=== PATIENT | female | born 1950 | race Caucasian/White ===

== ENCOUNTER 2016-12-07 06:06 | Day surgery (SDC) | payer MEDICARE, BC ==
[2016-12-07] MEDS ORDERED: PHENYLEPHRINE 2.5% OPHTH 2 ML DROPS ONE (06:23)
[2016-12-07] MEDS ORDERED: KETOROLAC 0.45% OPHTH DROPS ONE (06:23)
[2016-12-07] MEDS ORDERED: PROPARACAINE 0.5% OPHTH DROPS 15 ML ONE ×2 (06:24→07:08)
[2016-12-07] MEDS ORDERED: CYCLOPENTOLATE 1% OPHTH DROPS 2 ML ONE (06:24)
[2016-12-07] MEDS ORDERED: PHENYLEPHRINE 2.5% OPHTH 2 ML DROPS OPTH ONE (06:42)
[2016-12-07] MEDS ORDERED: KETOROLAC 0.45% OPHTH DROPS OPTH ONE (06:42)
[2016-12-07] MEDS ORDERED: PROPARACAINE 0.5% OPHTH DROPS 15 ML OPTH ONE ×2 (06:42→07:27)
[2016-12-07] MEDS ORDERED: CYCLOPENTOLATE 1% OPHTH DROPS 2 ML OPTH ONE (06:42)
[2016-12-07] MEDS ORDERED: LACTATED RINGERS 1,000 ML IV ONE (06:50)
[2016-12-07] MEDS ORDERED: TIMOLOL 0.5% OPHTH DROPS ONE (07:07)
[2016-12-07] MEDS ORDERED: BRIMONIDINE 0.2% OPHTH DROPS 5 ML ONE (07:07)
[2016-12-07] MEDS ORDERED: ACETYLCHOLINE 20 MG/2 ML KIT IO ONE (07:12)
[2016-12-07] MEDS ORDERED: TRIAMCINOLONE PF 40 MG/ML VIAL ONE (07:12)
[2016-12-07] MEDS ORDERED: BRIMONIDINE 0.2% OPHTH DROPS 5 ML OPTH ONE (07:26)
[2016-12-07] MEDS ORDERED: EPINEPHrine 1 MG/ML AMP IVP ONE (07:26)
[2016-12-07] MEDS ORDERED: CHONDR SULF/HYALURONATE SYRINGE IO ONE (07:26)
[2016-12-07] MEDS ORDERED: TIMOLOL 0.5% OPHTH DROPS OPTH ONE (07:27)
[2016-12-07] MEDS ORDERED: BSS/LIDOCAINE/EPINEPHRINE 1 ML SYRINGE IO ONE ×2 (07:27)
[2016-12-07] MEDS ORDERED: TRIAMCIN/MOXIFLOX/VANCO 1 ML VIAL IO ONE ×2 (07:27)
[2016-12-07] MEDS ORDERED: MIDAZOLAM 2 MG/2 ML VIAL IVP ONE (07:30)
[2016-12-07 08:03] VITALS: BP 120/60
--- NOTE | 2016-12-07 08:12 | OPERATIVE REPORT ---
DATE OF SURGERY: 12/07/2016 00:00:00 PREOPERATIVE DIAGNOSIS: Visually significant cataract, right eye. This is her first cataract surgery. POSTOPERATIVE DIAGNOSIS: Visually significant cataract, right eye. This is her first cataract surgery . NAME OF PROCEDURE: Phacoemulsification posterior chamber intraocular lens implant, right eye. SURGEON: Darrell Aquino MD. ANESTHESIA: Monitored anesthesia care. COMPLICATIONS: None. OPERATIVE INDICATIONS: This is a 66-year-old woman with progressive vision loss in the right eye due to 2+ nuclear sclerotic and 3+ cortical cataract. Best corrected visual acuity was 20/30 with glare t o 20/50 in the right eye. INDICATIONS FOR SURGERY: Overall decrease in vision, difficulty seeing words on a computer screen, di fficulty reading, difficulty seeing words and game scores on TV, difficulty seeing street signs, diff iculty seeing in low light or at night, difficulty driving at night because of headlights from other vehicles, difficulty with glare or bright lights in any situation. She complains of filmy blurry visi on that she cannot wipe away, much more difficulty seeing in low light, more glare during rainy night s when driving and oncoming headlights, and she feels she needs better vision for detailed carving. S he was consented at length concerning the risks and benefits of cataract surgery, after which she exp ressed a desire to proceed with surgery. OPERATIVE PROCEDURE: The patient was taken into OR #2 and placed under monitored anesthesia care. A s urgical time-out was conducted confirming the correct patient, correct procedure and correct surgical site. She was placed under the LenSx laser and her eye docked to the laser interface. The laser perf ormed the capsulotomy, lens softening, phaco wounds, and arcuate keratotomy incisions. She was then m jossie to the operating microscope, given topical anesthesia, and then prepped and draped in the usual sterile fashion. The eye was entered at the 12 and 9 o'clock positions. Intracameral Shugarcaine was injected into the anterior chamber, followed by Viscoat. Capsulorrhexis flap created by the LenSx las er was removed from the anterior chamber. The nucleus was hydrodissected and phacoemulsified. The cor eh was evacuated using automated infusion aspiration. Provisc was injected in the capsular bag and a 15.5 diopter intraocular lens was inserted into the bag. Approximately 0.8 mL of a mixture of triamc inolone, moxifloxacin, and vancomycin was injected subconjunctivally in the superior quadrant for inf ection and inflammation prophylaxis. I/A was used to evacuate the viscoelastic materials. The eye was inflated to physiologic pressure using balanced salt solution and found to be watertight. The patien t was taken from the operating room in good condition and given postoperative instructions. JOB #: [id number] EXT JOB #:[id number]
== END 2016-12-07 06:07 | disposition home or self-care (01) ==
LOC: SDS 06:06
PROVIDERS: ATTEND Ophthalmology
PROC: 08RJ3JZ Replacement of Right Lens with Synthetic Substitute, Percutaneous Approach (ICD-10-PCS; principal; 2016-12-07 07:30)
DX: H25.811 Combined forms of age-related cataract, right eye (principal); I10 Essential (primary) hypertension; M35.00 Sjogren syndrome, unspecified; M79.7 Fibromyalgia; E78.00 Pure hypercholesterolemia, unspecified
CPT/HCPCS: 66984; A9270; J3490; J7120; V2632

== ENCOUNTER 2017-01-11 07:18 | Day surgery (SDC) | payer MEDICARE, BC ==
[~2017-01-11 07:18] MED LIST: BRIMONIDINE 0.2% OPHTH DROPS 5 ML ONE; CYCLOPENTOLATE 1% OPHTH DROPS 2 ML ONE; KETOROLAC 0.45% OPHTH DROPS ONE; PHENYLEPHRINE 2.5% OPHTH 2 ML DROPS ONE; PROPARACAINE 0.5% OPHTH DROPS 15 ML ONE; TIMOLOL 0.5% OPHTH DROPS ONE
[2017-01-11] MEDS ORDERED: LACTATED RINGERS 500 ML IV ONE (07:47)
[2017-01-11] MEDS ORDERED: CYCLOPENTOLATE 1% OPHTH DROPS 2 ML OPTH ONE (07:50)
[2017-01-11] MEDS ORDERED: PROPARACAINE 0.5% OPHTH DROPS 15 ML OPTH ONE ×2 (07:50→08:40)
[2017-01-11] MEDS ORDERED: PHENYLEPHRINE 2.5% OPHTH 2 ML DROPS OPTH ONE (07:50)
[2017-01-11] MEDS ORDERED: KETOROLAC 0.45% OPHTH DROPS OPTH ONE (07:50)
[2017-01-11] MEDS ORDERED: TIMOLOL 0.5% OPHTH DROPS OPTH ONE (08:40)
[2017-01-11] MEDS ORDERED: BRIMONIDINE 0.2% OPHTH DROPS 5 ML OPTH ONE (08:40)
[2017-01-11] MEDS ORDERED: CHONDR SULF/HYALURONATE SYRINGE IO ONE (08:40)
[2017-01-11] MEDS ORDERED: EPINEPHrine 1 MG/ML AMP IVP ONE (08:40)
[2017-01-11] MEDS ORDERED: BSS/LIDOCAINE/EPINEPHRINE 1 ML SYRINGE IO ONE ×2 (08:41)
[2017-01-11] MEDS ORDERED: TRIAMCIN/MOXIFLOX/VANCO 1 ML VIAL IO ONE ×2 (08:42)
[2017-01-11] MEDS ORDERED: PROPOFOL 200 MG/20 ML VIAL IVP ONE (08:50)
[2017-01-11] MEDS ORDERED: LIDOCAINE-MPF 2% 5 ML VIAL IM ONE (08:50)
[2017-01-11 09:32] VITALS: BP 129/62
--- NOTE | 2017-01-11 10:17 | OPERATIVE REPORT ---
DATE OF SURGERY: 01/11/2017 00:00:00 PREOPERATIVE DIAGNOSIS: Visually significant cataract, left eye. Cataract surgery was performed on th e right eye on 12/07/2016. POSTOPERATIVE DIAGNOSIS: Visually significant cataract, left eye. Cataract surgery was performed on t he right eye on 12/07/2016. NAME OF PROCEDURE: Phacoemulsification posterior chamber intraocular lens implant, left eye, with las er assist. SURGEON: Darrell Aquino MD. ANESTHESIA: Monitored anesthesia care. COMPLICATIONS: None. OPERATIVE INDICATIONS: This is a 66-year-old woman with progressive vision loss in the left eye due t o 2+ nuclear sclerotic, 1+ cortical, and 1+ posterior subcapsular cataract. Best corrected visual acu ity was 20/20 with glare to 20/30 in the left eye. Indications for surgery were overall decrease in v ision, difficulty seeing street signs, difficulty driving in low light or at night, difficulty drivin g at night because of headlights from other vehicles, and difficulty with glare or bright lights in a situation. She was consented at length concerning the risks and benefits of cataract surgery, after which she expressed a desire to proceed with surgery. OPERATIVE PROCEDURE: The patient was taken to OR #2 and placed under monitored anesthesia care. A tiff gical time-out was conducted confirming the correct patient, correct procedure and correct surgical s ite. She was placed under the LenSx laser and her eye docked to the laser interface. The laser perfor med the capsulotomy, lens softening, phaco wound, and arcuate keratotomy incisions. She was then move d to the operating microscope, given topical anesthesia, and then prepped and draped in the usual talha rile fashion. The eye was entered at the 6 and 3 o'clock positions. Intracameral Shugarcaine was inje cted into the anterior chamber, followed by Viscoat. Capsulorrhexis flap created by the LenSx laser w as removed from the anterior chamber. The nucleus was hydrodissected and phacoemulsified. Cortex was evacuated using automated infusion aspiration. Provisc was injected in the capsular bag and a 15.0 di opter intraocular lens was inserted into the bag. Approximately 0.7 mL of a mixture of triamcinolone, moxifloxacin, and vancomycin was injected subconjunctivally in the superior quadrant for infection a nd inflammation prophylaxis. I/A was used to evacuate the viscoelastic materials. The eye was inflate d to a physiologic pressure using balanced salt solution and found to be watertight. The patient was taken from the operating room in good condition and given postoperative instructions. JOB #: [id number] EXT JOB #:[id number]
== END 2017-01-11 07:19 | disposition home or self-care (01) ==
LOC: SDS 07:18
PROVIDERS: ATTEND Ophthalmology
PROC: 08RK3JZ Replacement of Left Lens with Synthetic Substitute, Percutaneous Approach (ICD-10-PCS; principal; 2017-01-11 08:30)
DX: H25.812 Combined forms of age-related cataract, left eye (principal); J84.10 Pulmonary fibrosis, unspecified; K21.9 Gastro-esophageal reflux disease without esophagitis; M79.7 Fibromyalgia; E11.42 Type 2 diabetes mellitus with diabetic polyneuropathy; R06.02 Shortness of breath
CPT/HCPCS: 66984; A9270; J3490; V2632

== ENCOUNTER 2018-09-06 19:15 | Emergency (ER) | payer MEDICARE, BC ==
--- NOTE | 2018-09-06 21:12 | ED Physician Documentation ---
PD HPI HEAD INJURY - Stated complaint Stated Complaint: ESQUEDA - Chief complaint Chief Complaint: Neuro - History obtained from History obtained from: Patient - History of Present Illness Mechanism of head injury: Fell (from hammock onto hard surface, striking back of head, shoulder and lower leg. Has had headache and neck pain persisting since. No visual changes. No numbness/weakness.) Where head injury occurred: Home Location of injury: Left, Back Quality of pain: Pain, Aching Associated symptoms: Nausea / vomiting (nausea without vomiting today and last night), Neck pain. No: LOC, AMS, Paresthesias Symptoms improve with: No: Meds Symptoms worsen with: Movement Contributing factors: No: Anticoagulated Similar symptoms before: Has not had sx before Recently seen: Clinic (seen by PMD and had xray of shoulder and leg, without fractures. Did not sound concussive and so no head CT done. Patient says headache and neck pain worse with ROM. Feeling lightheaded.) Review of Systems Constitutional: denies: Fever Nose: denies: Rhinorrhea / runny nose, Congestion Throat: denies: Sore throat Respiratory: denies: Cough GI: reports: Nausea (today). denies: Abdominal Pain, Vomiting, Diarrhea Neurologic: reports: Generalized weakness, Headache, Head injury. 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 : None HEENT: None Psych: Depression Musculoskeletal: Fibromyalgia, Chronic back pain Derm: None - Past Surgical History Past Surgical History: Yes General: Cholecystectomy Ortho: Carpal Tunnel surgery HEENT: Cataracts, Tonsil/Adenoidectomy - Present Medications Home Medications: Ambulatory Orders Medication Instructions Recorded Confirmed Diazepam [Valium] 2 mg PO DAILY 11/28/12 01/11/17 Levothyroxine Sodium [Synthroid] 0 mcg PO DAILY 11/28/12 01/11/17 oxyCODONE [Roxicodone] 5 mg PO Q4-6H 11/28/12 01/11/17 fentaNYL [Duragesic 75mcg patch] 1 patch TD DAILY 02/23/14 01/11/17 Naproxen 375 mg PO BID #20 tablet 09/06/18 Ondansetron Odt [Zofran] 4 mg TL Q6H PRN #10 tablet 09/06/18 dexAMETHasone [Decadron] 4 mg PO DAILY #5 tablet 09/06/18 - Allergies Allergies/Adverse Reactions: Allergies Allergy/AdvReac Type Severity Reaction Status Date / Time Penicillins Allergy unknown Verified 02/23/14 13:01 streptomycin [Streptomycin] Allergy unknown Verified 02/23/14 13:01 Sulfa (Sulfonamide Allergy Rash Verified 02/23/14 13:01 Antibiotics) adhesive tape Allergy unknown Uncoded 02/23/14 13:01 - Social History Does the pt smoke?: No Smoking Status: Never smoker Does the pt drink ETOH?: No Does the pt have substance abuse?: Yes - Immunizations Immunizations are current?: Yes - POLST Patient has POLST: No PD ED PE NORMAL - Vitals Vital signs reviewed: Yes - General General: Alert and oriented X 3, Well developed/nourished, Other (seems in pain and holding the back of head. Curled into a ball on cart. ) - HEENT HEENT: PERRL, EOMI (light sensitive), Other (tender left occiput area. ) - Neck Neck: Supple, no meningeal sign, No adenopathy, Other (some tenderness upper neck area to left side. Muscles tense. ) - Cardiac Cardiac: RRR, No murmur - Respiratory Respiratory: Clear bilaterally - Abdomen Abdomen: Soft, Non tender - Derm Derm: Normal color, Warm and dry - Extremities Extremities: No edema, No calf tenderness / cord, Other (left shoulder with some tenderness posteriorly. left lower leg with some tenderness lateral ankle. ) - Neuro Neuro: Alert and oriented X 3, No motor deficit, Normal speech Results - Vitals Vitals: Oxygen O2 Source Room air - Rads (name of study) head anc neck CT Radiology: Prelim report reviewed (no fractures nor ICH. ), See rad report PD MEDICAL DECISION MAKING - ED course Complexity details: re-evaluated patient (improved with IV fluids and meds. ), considered differential (headache could be post concussive but also seems some element of migraine now as well. ), d/w patient Departure - Departure Disposition: 01 Home, Self Care Clinical Impression: Post-concussion headache Neck strain Qualifiers: Encounter type: initial encounter Qualified Code(s): S16.1XXA - Strain of muscle, fascia and tendon at neck level, initial encounter Condition: Stable Record reviewed to determine appropriate education?: Yes Instructions: ED Cephalgia Unspecified, ED Sprain Strain Neck Follow-Up: Darrell Cottrell MD [Primary Care Provider] - Prescriptions: dexAMETHasone [Decadron] 4 mg PO DAILY #5 tablet Naproxen 375 mg PO BID #20 tablet Ondansetron Odt [Zofran] 4 mg TL Q6H PRN #10 tablet PRN Reason: Nausea / Vomiting Comments: I presume you are having a postconcussive headache still. Stay well-hydrated. We will try some anti-inflammatories with naproxen twice daily for the next 7 to 10 days. Also Decadron steroid anti-inflammatory daily for 5 more days. Use ondansetron if needed for nausea. Continue your Percocet intermittently as needed for headache. Follow-up with your primary care if not improved over the next few days. Discharge Date/Time: 09/06/18 23:33
[2018-09-06] MEDS ORDERED: METOCLOPRAMIDE 10 MG/2 ML VIAL IVP STA (21:29)
[2018-09-06] MEDS ORDERED: HYDROmorphone 1 MG/ML CARPUJECT IVP STA ×2 (21:29→22:41)
[2018-09-06] MEDS ORDERED: SODIUM CHLORIDE 0.9% 1,000 ML IV ONE (21:29)
[2018-09-06] MEDS ORDERED: diphenhydrAMINE INJ 50 MG/ML VIAL IVP STA (21:29)
[2018-09-06] MEDS ORDERED: KETOROLAC 15 MG/ML VIAL IVP STA (21:29)
--- NOTE | 2018-09-06 22:20 | CT Report ---
Reason: fall 9 days ago, struck head and neck; still pain Procedure Date: 09/06/2018 Accession Number: [id number] / [id number] Procedure: CT - HEAD WO CPT Code: FULL RESULT: EXAM: CT HEAD EXAM DATE: 09/06/2018 10:01 PM. CLINICAL HISTORY: Fall 9 days ago, struck head and neck; still pain. COMPARISON: HEAD W/O 12/25/2012 7:46 PM. TECHNIQUE: Multiaxial CT images were obtained from the foramen magnum to the vertex. Reformats: Sagittal and coronal. IV contrast: None. In accordance with CT protocol optimization, one or more of the following dose reduction techniques were utilized for this exam: automated exposure control, adjustment of mA and/or KV based on patient size, or use of iterative reconstructive technique. FINDINGS: Parenchyma: No intraparenchymal hemorrhage. No evidence of mass, midline shift, or CT findings of acute infarction. Escalera-white differentiation is distinct. Diffuse chronic microangiopathic white matter changes. Extraaxial Spaces: Normal for age. No subdural or epidural collections. Ventricles: The ventricles and cortical sulci are enlarged, consistent with age-related tissue loss. Sinuses and orbits: Imaged paranasal sinuses, orbits, and mastoids show no significant abnormality. Bones: Unremarkable. Other: None. IMPRESSION: Generalized age-related cortical atrophic changes without evidence of acute intracranial abnormality. RADIA
--- NOTE | 2018-09-06 22:25 | CT Report ---
Reason: fall 9 days ago, struck head and neck; still pain Procedure Date: 09/06/2018 Accession Number: [id number] / [id number] Procedure: CT - CERVICAL SPINE WO CPT Code: FULL RESULT: EXAM: CT CERVICAL SPINE WITHOUT CONTRAST DATE: 09/06/2018 09:51 PM. HISTORY: Fall 9 days ago, struck head and neck; still pain. COMPARISONS: HEAD W/O 12/25/2012 7:46 PM CERVICAL SPINE W/O 11/28/2012 8:18 AM. TECHNIQUE: Thin-section axial images were acquired of the cervical spine without contrast. Post-processing: Coronal and sagittal reformats. Other: None. In accordance with CT protocol optimization, one or more of the following dose reduction techniques were utilized for this exam: automated exposure control, adjustment of mA and/or KV based on patient size, or use of iterative reconstructive technique. FINDINGS: Alignment: No scoliosis or spondylolisthesis. Bones: No fracture or bone lesion. Interspace Levels/Facets: Disk spaces generally well preserved. Mild degenerative changes. Musculature: Unremarkable. Other: The paravertebral and prevertebral soft tissues are unremarkable. The lung apices are clear. IMPRESSION: No acute disease. RADIA
[2018-09-06] MEDS ORDERED: DEXAMETHASONE 10 MG/ML VIAL IVP STA (22:41)
[2018-09-06 23:22] VITALS: BP 109/52
== END 2018-09-06 23:33 | disposition home or self-care (01) ==
LOC: ED 19:15
DX: G44.309 Post-traumatic headache, unspecified, not intractable (principal); S16.1XXA Strain of muscle, fascia and tendon at neck level, initial encounter; W17.89XA Other fall from one level to another, initial encounter; Y92.009 Unspecified place in unspecified non-institutional (private) residence as the place of occurrence of the external cause; E11.9 Type 2 diabetes mellitus without complications; I10 Essential (primary) hypertension
CPT/HCPCS: 70450; 72125; 96374; 96376; 99283; 99284; J1170; J1200; J2765

== ENCOUNTER 2018-09-09 18:50 | Emergency (ER) | payer MEDICARE, BC ==
--- NOTE | 2018-09-09 20:03 | ED Physician Documentation ---
History of Present Illness - Stated complaint Stated Complaint: ESQUEDA - Chief complaint Chief Complaint: Heent - History obtained from History obtained from: Patient - Additonal information Additional information: Patient is a 68-year-old female with history of fibromyalgia and recent closed head injury presenting with persistent postconcussive headache. Patient fell and struck her head about 2 weeks ago and was evaluated here with CT imaging of head and neck which returned unremarkable. Patient also had MRI head as an outpatient which returned unremarkable. Patient has been prescribed multiple medications including narcotics, antiemetics, and steroids. Patient also uses her own at home narcotic prescriptions as well as fentanyl patches for her underlying fibromyalgia. Patient reports no new injuries but persistent diffuse headache with mild photosensitivity but no other vision changes. Patient denies fever, nausea, vomiting, or other complaints. Patient immediately asked for Dilaudid, but at this time we discussed that it is most appropriate to treat this kind of headache with nonnarcotics and she is amenable to migraine cocktail and fluid. No other improving or worsening factors noted. 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 : None HEENT: None Psych: Depression Musculoskeletal: Fibromyalgia, Chronic back pain Derm: None - Past Surgical History Past Surgical History: Yes General: Cholecystectomy Ortho: Carpal Tunnel surgery HEENT: Cataracts, Tonsil/Adenoidectomy - Present Medications Home Medications: Ambulatory Orders Medication Instructions Recorded Confirmed Diazepam [Valium] 2 mg PO DAILY 11/28/12 01/11/17 Levothyroxine Sodium [Synthroid] 0 mcg PO DAILY 11/28/12 01/11/17 oxyCODONE [Roxicodone] 5 mg PO Q4-6H 11/28/12 01/11/17 fentaNYL [Duragesic 75mcg patch] 1 patch TD DAILY 02/23/14 01/11/17 Naproxen 375 mg PO BID #20 tablet 09/06/18 Ondansetron Odt [Zofran] 4 mg TL Q6H PRN #10 tablet 09/06/18 dexAMETHasone [Decadron] 4 mg PO DAILY #5 tablet 09/06/18 - Allergies Allergies/Adverse Reactions: Allergies Allergy/AdvReac Type Severity Reaction Status Date / Time Penicillins Allergy unknown Verified 09/09/18 18:58 streptomycin [Streptomycin] Allergy unknown Verified 09/09/18 18:58 Sulfa (Sulfonamide Allergy Rash Verified 09/09/18 18:58 Antibiotics) adhesive tape Allergy unknown Uncoded 02/23/14 13:01 - Social History Does the pt smoke?: No Smoking Status: Never smoker Does the pt drink ETOH?: No Does the pt have substance abuse?: Yes - Immunizations Immunizations are current?: Yes - POLST Patient has POLST: No PD ED PE NORMAL - Vitals Vital signs reviewed: Yes - General General: Alert and oriented X 3, No acute distress, Well developed/nourished - HEENT HEENT: Atraumatic, PERRL, EOMI (No nystagmus.), Moist mucous membranes, Pharynx benign - Neck Neck: Supple, no meningeal sign - Cardiac Cardiac: RRR, No murmur - Respiratory Respiratory: No respiratory distress, Clear bilaterally - Abdomen Abdomen: Soft, Non tender, Non distended - Derm Derm: Normal color, Warm and dry, No rash - Extremities Extremities: No deformity, No tenderness to palpate - Neuro Neuro: Alert and oriented X 3, No motor deficit, No sensory deficit - Psych Psych: Normal mood, Normal affect Results - Vitals Vitals: Vital Signs - 24 hr 09/09/18 18:58 Temperature 36.6 C Heart Rate 77 Respiratory 14 Rate Blood Pressure 162/88 H O2 Saturation 98 Oxygen O2 Source Room air PD MEDICAL DECISION MAKING - ED course Complexity details: reviewed old records, re-evaluated patient, considered d ifferential, d/w patient ED course: Patient presenting with persistent headache following trauma several weeks ago. Do believe this is traumatic related and likely postconcussive. Patient denies any new injuries. Patient had extensive imaging that did not find evidence of intracranial bleed, fracture, or other acute pathology. Given lack of new trauma or worsening symptoms besides persistent headache, do not feel she requires repeat imaging at this time. Based on symptoms and physical exam findings, also have low suspicion for encephalitis or meningitis, but con sidered. Feel that patient is likely experiencing tension or migraine-like headache from the trauma and given IV fluids and migraine cocktail. Do not feel she requires other invasive testing at this time. Upon reevaluation, patient reported significant improvement. Patient has multiple medications available to her at home and do not feel she requires any prescriptions at this time. Discussed supportive cares, return precautions, appropriate follow-up. Patient voiced understanding and is comfortable with discharge plan. Departure - Departure Clinical Impression: Post-concussion headache Condition: Good Instructions: TBI Headaches Follow-Up: Darrell Cottrell MD [Primary Care Provider] - Within 3 Days Comments: Please continue to use home medications as prescribed. Recommend hydration, rest, and healthy diet as well as follow-up with your primary care physician in next 2 to 3 days. Return to ED sooner if expands worsening symptoms, new injury, or other concerns.
[2018-09-09] MEDS ORDERED: METOCLOPRAMIDE 10 MG/2 ML VIAL IVP STA (20:16)
[2018-09-09] MEDS ORDERED: SODIUM CHLORIDE 0.9% 1,000 ML IV ONE (20:16)
[2018-09-09] MEDS ORDERED: diphenhydrAMINE INJ 50 MG/ML VIAL IVP STA (20:16)
[2018-09-09] MEDS ORDERED: ONDANSETRON 4 MG/2 ML VIAL IVP STA (20:16)
[2018-09-09] MEDS ORDERED: KETOROLAC 30 MG/ML VIAL IVP STA (20:16)
[2018-09-09 21:40] VITALS: BP 148/79
== END 2018-09-09 21:47 | disposition home or self-care (01) ==
LOC: ED 18:50
DX: G44.309 Post-traumatic headache, unspecified, not intractable (principal); F07.81 Postconcussional syndrome; M79.7 Fibromyalgia; I10 Essential (primary) hypertension; E11.9 Type 2 diabetes mellitus without complications
CPT/HCPCS: 96361; 96374; 96375; 99283; J1200; J2765

== ENCOUNTER 2018-09-26 11:25 | Outpatient (CLI) | payer MEDICARE, BC | END 2018-09-26 11:26 | disposition critical access hospital (66) | LOC: EMS 11:25 | PROVIDERS: ATTEND Surgery | DX: R51 Headache (principal); R25.3 Fasciculation | CPT/HCPCS: A0425; A0429 ==

== ENCOUNTER 2018-09-26 11:43 | Emergency (ER) | payer MEDICARE, BC ==
--- NOTE | 2018-09-26 11:57 | ED Physician Documentation ---
PD HPI HEADACHE - Stated complaint Stated Complaint: ESQUEDA - Chief complaint Chief Complaint: Neuro - History obtained from History obtained from: Patient - History of Present Illness Timing - onset: How many days ago (several) Timing - onset during: Light activity Timing - duration: Days Timing - details: Abrupt onset, Waxing and waning Worst headache ever?: No: Worst headache ever? Quality: Throbbing, Aching Associated symptoms: Nausea. No: Fever, Stiff neck, Vomiting, Numbness, Eye pain Improved by: No: Meds Worsened by: No: Light Contributing factors: Trauma (She states she fell and hit her head 5 days ago. She has been having intermittent headaches since that time and it became much worse last night into today. Is been consistent and steady overnight. She went to her primary care today and the on-call physician saw her and referred her to the ER for likely imaging and medications. She has had migraines in the past but states this feels somewhat different. She had had a injury to the head a few weeks ago and had had a normal CT and was treated for headache at that time as well in the ER. She is on chronic pain medications for fibromyalgia and states she has not run out of those but her usual pain medicine was not working well today.). No: Anticoagulated, Recent illness Similar symptoms before: Diagnosis (migraines in the past, though she says this came on faster and has less light sensitivity than usual.) Review of Systems Constitutional: reports: Myalgias (chronic due to FM). denies: Fever, Chills Eyes: reports: Photophobia (mild but not as much as usual migraines). denies: Loss of vision Nose: denies: Rhinorrhea / runny nose, Congestion Throat: denies: Sore throat Cardiac: denies: Chest pain / pressure, Palpitations Respiratory: denies: Cough GI: reports: Nausea, Vomiting. denies: Abdominal Pain, Diarrhea Skin: denies: Rash Musculoskeletal: reports: Neck pain. denies: Back pain Neurologic: reports: Headache. 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 HEENT: None Psych: Depression Musculoskeletal: Fibromyalgia, Chronic back pain Derm: None - Past Surgical History Past Surgical History: Yes General: Cholecystectomy Ortho: Carpal Tunnel surgery HEENT: Cataracts, Tonsil/Adenoidectomy - Present Medications Home Medications: Ambulatory Orders Medication Instructions Recorded Confirmed Diazepam [Valium] 2 mg PO DAILY 11/28/12 01/11/17 Levothyroxine Sodium [Synthroid] 0 mcg PO DAILY 11/28/12 01/11/17 oxyCODONE [Roxicodone] 5 mg PO Q4-6H 11/28/12 01/11/17 fentaNYL [Duragesic 75mcg patch] 1 patch TD DAILY 02/23/14 01/11/17 Naproxen 375 mg PO BID #20 tablet 09/06/18 Ondansetron Odt [Zofran] 4 mg TL Q6H PRN #10 tablet 09/06/18 dexAMETHasone [Decadron] 4 mg PO DAILY #5 tablet 09/06/18 Ondansetron Odt [Zofran] 4 mg TL Q6H PRN #10 tablet 09/26/18 dexAMETHasone [Decadron] 4 mg PO DAILY #5 tablet 09/26/18 - Allergies Allergies/Adverse Reactions: Allergies Allergy/AdvReac Type Severity Reaction Status Date / Time Penicillins Allergy unknown Verified 09/26/18 11:53 streptomycin [Streptomycin] Allergy unknown Verified 09/26/18 11:53 Sulfa (Sulfonamide Allergy Rash Verified 09/26/18 11:53 Antibiotics) adhesive tape Allergy unknown Uncoded 09/26/18 11:53 - Social History Does the pt smoke?: No Smoking Status: Never smoker Does the pt drink ETOH?: No Does the pt have substance abuse?: Yes - Immunizations Immunizations are current?: Yes - POLST Patient has POLST: No PD ED PE NORMAL - Vitals Vital signs reviewed: Yes - General General: Alert and oriented X 3, Well developed/nourished, Other (appears in pain and is holding left side of head, curled up, preferring lights out in the room. Having apparent episodic stabs of pain in head around/above left eye. 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 The character of it seems possible cluster variant. Head CT without ICH from recent fall. ), d/w patient Departure - Departure Disposition: 01 Home, Self Care Clinical Impression: Migraine headache Qualifiers: Migraine type: without aura Status migrainosus presence: without status migrainosus Intractability: not intractable Qualified Code(s): G43.009 - Migraine without aura, not intractable, without status migrainosus Head contusion Qualifiers: Encounter type: initial encounter Contusion of head detail: scalp Qualified Code(s): S00.03XA - Contusion of scalp, initial encounter Condition: Stable Record reviewed to determine appropriate education?: Yes Instructions: ED Cephalgia Unspecified Prescriptions: dexAMETHasone [Decadron] 4 mg PO DAILY #5 tablet Ondansetron Odt [Zofran] 4 mg TL Q6H PRN #10 tablet PRN Reason: Nausea / Vomiting Comments: Your head and neck CT scans are without any bleeding or fractures. Continue usual medications. Use ondansetron if needed for nausea. I would suggest alina ng Decadron daily for the next 5 days to help reduce chance of rebound headache. Follow-up with your primary care. Discharge Date/Time: 09/26/18 15:50
[2018-09-26] MEDS ORDERED: KETOROLAC 15 MG/ML VIAL IVP STA (12:03)
[2018-09-26] MEDS ORDERED: SODIUM CHLORIDE 0.9% 1,000 ML IV ONE (12:03)
[2018-09-26] MEDS ORDERED: HYDROmorphone 1 MG/ML CARPUJECT IVP STA (12:03)
[2018-09-26] MEDS ORDERED: DEXAMETHASONE 10 MG/ML VIAL IVP STA (12:04)
[2018-09-26] MEDS ORDERED: PROCHLORPERAZINE 10 MG/2 ML VIAL IVP STA (12:05)
--- NOTE | 2018-09-26 13:06 | CT Report ---
Reason: fall few days ago, struck head and with neck pain Procedure Date: 09/26/2018 Accession Number: [id number] / [id number] Procedure: CT - CERVICAL SPINE WO CPT Code: FULL RESULT: EXAM: CT CERVICAL SPINE WITHOUT CONTRAST DATE: 09/26/2018 12:41 PM. HISTORY: Recent fall. Neck pain. COMPARISONS: CERVICAL SPINE W/O 09/06/2018 9:51 PM. TECHNIQUE: Thin-section axial images were acquired of the cervical spine without contrast. Post-processing: Coronal and sagittal reformats. Other: None. In accordance with CT protocol optimization, one or more of the following dose reduction techniques were utilized for this exam: automated exposure control, adjustment of mA and/or KV based on patient size, or use of iterative reconstructive technique. FINDINGS: Alignment: No scoliosis or spondylolisthesis. Bones: No fracture or bone lesion. Interspace Levels/Facets: Normal lordosis. No evidence of fracture. Minimal disk height narrowing C5-C6 without subluxation. No significant facet arthropathy. No foraminal stenosis. Musculature: Normal. No fatty atrophy. Other: The paravertebral and prevertebral soft tissues are unremarkable. The lung apices are clear. IMPRESSION: No acute abnormality. Negative for fracture. RADIA
--- NOTE | 2018-09-26 13:07 | CT Report ---
Reason: fell few days ago and struck head again Procedure Date: 09/26/2018 Accession Number: [id number] / [id number] Procedure: CT - HEAD WO CPT Code: FULL RESULT: EXAM: CT HEAD EXAM DATE: 09/26/2018 12:41 PM. CLINICAL HISTORY: Headache. Closed head injury recent fall. COMPARISON: CERVICAL SPINE W/O 09/06/2018 9:51 PM. TECHNIQUE: Multiaxial CT images were obtained from the foramen magnum to the vertex. Reformats: Sagittal and coronal. IV contrast: None. In accordance with CT protocol optimization, one or more of the following dose reduction techniques were utilized for this exam: automated exposure control, adjustment of mA and/or KV based on patient size, or use of iterative reconstructive technique. FINDINGS: Parenchyma: No intraparenchymal hemorrhage. No evidence of mass, midline shift, or CT findings of infarction. Escalera-white differentiation is distinct. Extraaxial Spaces: Normal for age. No subdural or epidural collections identified. Ventricles: Normal in size and position. Sinuses and Orbits: Imaged paranasal sinuses, orbits, and mastoids show no significant abnormality. Bones: No evidence of fracture or calvarial defect. Other: None. IMPRESSION: Normal head CT. RADIA
[2018-09-26 15:39] VITALS: BP 139/65
== END 2018-09-26 15:50 | disposition home or self-care (01) ==
LOC: EDUNIT# → ED 11:43
DX: G43.009 Migraine without aura, not intractable, without status migrainosus (principal); S00.03XA Contusion of scalp, initial encounter; W19.XXXA Unspecified fall, initial encounter; M79.7 Fibromyalgia; I10 Essential (primary) hypertension; E11.9 Type 2 diabetes mellitus without complications
CPT/HCPCS: 70450; 72125; 96361; 96374; 96375; 99283; 99284; J1170

== ENCOUNTER 2018-09-28 01:29 | Outpatient (CLI) | payer MEDICARE, BC | END 2018-09-28 01:30 | disposition short-term general hospital (02) | LOC: EMS 01:29 | PROVIDERS: ATTEND Surgery | DX: R51 Headache (principal) | CPT/HCPCS: A0425; A0429 ==

== ENCOUNTER 2019-03-15 10:59 | Outpatient (CLI) | payer MEDICARE, BC | END 2019-03-15 11:00 | disposition critical access hospital (66) | LOC: EMS 10:59 | PROVIDERS: ATTEND Surgery | DX: R56.9 Unspecified convulsions (principal) | CPT/HCPCS: A0425; A0429 ==

== ENCOUNTER 2019-03-15 11:15 | Emergency (ER) | payer MEDICARE, BC ==
--- NOTE | 2019-03-15 11:27 | ED Physician Documentation ---
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 This lasted less than a minute or so and then stopped. EMS was called and the patient was arousing on their arrival and became alert on route. No apparent injury. The patient denies prior similar episodes. She was last aware of having gone to bed with her partner feeling well without any injury illness or acute problems. She denies any recent change in medicines, new medicines or running out of any. She has not had any fever. She denies recent head injury. She denies any alcohol use or substance abuse. She does not take any regular pain medic occasions that have changed. She does have fibromyalgia and uses a fentanyl patch that has been consistent and oxycodone when needed but had not had any for several days and only uses it every few days. She is not prescribed tramadol.) Number of seizures: Single, Lasted - seconds Description of seizure activity: Generalized Injury during seizure: None. No: Fell, Head injury Associated symptoms: None History of seizures: First seizure. No: Known seizure disorder Contributing factors: No: Off meds, Out of meds, Changed meds, Low blood sugar, Substance abuse, EtOH withdrawal, Fever Similar symptoms before: Has not had sx before Review of Systems Constitutional: denies: Fever, Chills, Myalgias Nose: denies: Rhinorrhea / runny nose, Congestion Throat: denies: Sore throat Cardiac: denies: Chest pain / pressure, Palpitations Respiratory: denies: Dyspnea, Cough GI: denies: Abdominal Pain, Nausea, Vomiting, Diarrhea Musculoskeletal: reports: Back pain (chronic). 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 HEENT: None Psych: Depression Musculoskeletal: Fibromyalgia, Chronic back pain Derm: None - Past Surgical History Past Surgical History: Yes General: Cholecystectomy Ortho: Carpal Tunnel surgery HEENT: Cataracts, Tonsil/Adenoidectomy - Present Medications Home Medications: Ambulatory Orders Medication Instructions Recorded Confirmed Diazepam [Valium] 10 mg PO QID 11/28/12 01/11/17 Levothyroxine Sodium [Synthroid] 75 mcg PO DAILY 11/28/12 01/11/17 fentaNYL [Duragesic 75mcg patch] 1 patch TD DAILY 02/23/14 01/11/17 Aspirin Chewable [[place] 81 mg PO DAILY 03/15/19 03/15/19 Aspirin] Cholecalciferol (Vitamin D3) 2,000 unit PO 03/15/19 03/15/19 [Vitamin D3] Metoprolol Tartrate [Lopressor] 25 mg PO BID 03/15/19 03/15/19 oxyCODONE/ACET 5/325 [Percocet 5 1 each PO Q4-6H 03/15/19 03/15/19 mg/325 mg] - Allergies Allergies/Adverse Reactions: Allergies Allergy/AdvReac Type Severity Reaction Status Date / Time Penicillins Allergy unknown Verified 03/15/19 11:21 streptomycin [Streptomycin] Allergy unknown Verified 03/15/19 11:21 Sulfa (Sulfonamide Allergy Rash Verified 03/15/19 11:21 Antibiotics) adhesive tape Allergy unknown Uncoded 09/26/18 11:53 - Social History Does the pt smoke?: No Smoking Status: Never smoker Does the pt drink ETOH?: No Does the pt have substance abuse?: Yes Substance Use and Type: Marijuana - Immunizations Immunizations are current?: Yes - POLST Patient has POLST: No PD ED PE NORMAL - Vitals Vital signs reviewed: Yes - General General: Alert and oriented X 3, No acute distress, Well developed/nourished - HEENT HEENT: Moist mucous membranes, Pharynx benign, Other (no tongue lesions seen) - Neck Neck: Supple, no meningeal sign, No bony TTP, No adenopathy - Cardiac Cardiac: RRR, No murmur - Respiratory Respiratory: Clear bilaterally - Abdomen Abdomen: Soft, Non tender - Derm Derm: Normal color, Warm and dry - Extremities Extremities: No tenderness to palpate, Normal ROM s pain, No edema, No calf tenderness / cord - Neuro Neuro: Alert and oriented X 3, records management assistant 2-12 intact, No motor deficit, No sensory deficit, Normal speech Eye Opening: Spontaneous Motor: Obeys Commands Verbal: Oriented GCS Score: 15 - Psych Psych: Normal mood, Normal affect Results - Vitals Vitals: Vital Signs - 24 hr 03/15/19 03/15/19 11:17 13:21 Temperature 36.3 C L Heart Rate 75 66 Respiratory 18 14 Rate Blood Pressure 180/91 H 150/68 H O2 Saturation 96 98 Oxygen O2 Source Room air - EKG (time done) 12:10 Rate: Rate (enter#) (71) Rhythm: NSR [place]: Normal Intervals: Normal PA QRS: Normal Ischemia: Normal ST segments. No: ST elevation c/w ischemia (has some elevation V3/V4 with notching, not appearing patterned.), ST depression - Labs Labs: Laboratory Tests 03/15/19 03/15/19 03/15/19 12:10 12:18 12:18 WBC 12.9 H RBC 4.64 Hgb 12.7 Hct 41.9 MCV 90.3 MCH 27.4 MCHC 30.3 L RDW 13.9 Plt Count 293 MPV 9.9 Neut # (Auto) 10.3 H Lymph # (Auto) 1.6 Haakon # (Auto) 0.7 Eos # (Auto) 0.1 Baso # (Auto) 0.1 Absolute Nucleated RBC 0.00 Nucleated RBC % 0.0 ESR Sodium Potassium Chloride Carbon Dioxide Anion Gap BUN Creatinine Estimated GFR (MDRD) Glucose Lactic Acid 1.6 Calcium Magnesium Total Bilirubin AST ALT Alkaline Phosphatase Total Creatine Kinase Total Protein Albumin Globulin Albumin/Globulin Ratio Lipase Prolactin Urine Color YELLOW Urine Clarity CLEAR Urine pH 7.5 Ur Specific [place] 1.015 Urine Protein NEGATIVE Urine Glucose (UA) NEGATIVE Urine Ketones NEGATIVE Urine Occult Blood NEGATIVE Urine Nitrite NEGATIVE Urine Bilirubin NEGATIVE Urine Urobilinogen 0.2 (NORMAL) Ur Leukocyte Esterase NEGATIVE Ur Microscopic Review NOT INDICATED Urine Culture Comments NOT INDICATED Urine Opiates Screen NEGATIVE Ur Oxycodone Screen NEGATIVE Urine Methadone Screen NEGATIVE Ur Propoxyphene Screen NEGATIVE Ur Barbiturates Screen NEGATIVE Ur Tricyclics Screen NEGATIVE Ur Phencyclidine Scrn NEGATIVE Ur Amphetamine Screen POSITIVE H U Methamphetamines Scrn POSITIVE H U Benzodiazepines Scrn POSITIVE H Urine Cocaine Screen NEGATIVE U Cannabinoids Screen POSITIVE H Ethyl Alcohol 03/15/19 03/15/19 03/15/19 12:18 12:18 12:18 WBC RBC Hgb Hct MCV MCH MCHC RDW Plt Count MPV Neut # (Auto) Lymph # (Auto) [place] # (Auto) Eos # (Auto) Baso # (Auto) Absolute Nucleated RBC Nucleated RBC % ESR 25 Sodium 136 Potassium 3.9 Chloride 98 L Carbon Dioxide 32 Anion Gap 6.0 BUN 20 Creatinine 0.8 Estimated GFR (MDRD) 71 L Glucose 141 H Lactic Acid Calcium 8.8 Magnesium 2.0 Total Bilirubin 0.5 AST 23 ALT 21 Alkaline Phosphatase 87 Total Creatine Kinase 93 Total Protein 6.8 Albumin 3.4 Globulin 3.4 Albumin/Globulin Ratio 1.0 Lipase 31 Prolactin 24.25 Urine Color Urine Clarity Urine pH Ur Specific [place] Urine Protein Urine Glucose (UA) Urine Ketones Urine Occult Blood Urine Nitrite Urine Bilirubin Urine Urobilinogen Ur Leukocyte Esterase Ur Microscopic Review Urine Culture Comments Urine Opiates Screen Ur Oxycodone Screen Urine Methadone Screen Ur Propoxyphene Screen Ur Barbiturates Screen Ur Tricyclics Screen Ur Phencyclidine Scrn Ur Amphetamine Screen U Methamphetamines Scrn U Benzodiazepines Scrn Urine Cocaine Screen U Cannabinoids Screen Ethyl Alcohol < 5.0 - Rads (name of study) head CT Radiology: Prelim report reviewed (no bleeding nor acute process), See rad report PD MEDICAL DECISION MAKING - ED course Complexity details: reviewed results, re-evaluated patient (awake alert and conversant; resting comfortably. ), considered differential (Not clear the cause of the seizure-like activity. Will check for infection markers electrolytes head CT and urine tox.), d/w patient Departure - Departure Disposition: 01 Home, Self Care Clinical Impression: Witnessed seizure-like activity Condition: Stable Record reviewed to determine appropriate education?: Yes Instructions: ED Seizure New Onset Unk Cause Follow-Up: Darrell Cottrell MD [Primary Care Provider] - Comments: Stay well-hydrated. Continue usual medications. Follow-up with your primary care this coming week as planned. At this point there is no obvious cause for your seizure-like activity. See if your primary care wants to pursue further evaluation such as neurology consult or EEG testing. Typically we would not treat a single seizure like episode with epilepsy medications until further evaluated or if you have repeated episodes. There are other seizure mimic causes. The testing today did not reveal any obvious other cause.
[2019-03-15] MEDS ORDERED: IBUPROFEN 600 MG TABLET PO STA (12:06)
[2019-03-15] MEDS ORDERED: SODIUM CHLORIDE 0.9% 1,000 ML IV ONE (12:07)
[2019-03-15 12:32] LABS: BASOPHILS # (AUTO) 0.1 10^3/uL (0.0-0.1); BASOPHILS % (AUTO) 0.5 %; EOSINOPHILS # (AUTO) 0.1 10^3/uL (0.0-0.7); EOSINOPHILS % (AUTO) 0.9 %; HGB - HEMOGLOBIN 12.7 g/dL (12.0-16.0); LYMPHOCYTES # (AUTO) 1.6 10^3/uL (1.5-3.5); LYMPHOCYTES % (AUTO) 12.2 %; MEAN CORPUSCULAR HEMOGLOBIN 27.4 pg (27.0-31.0); MEAN CORPUSCULAR HGB CONC 30.3 g/dL (32.0-36.0); MEAN CORPUSCULAR VOLUME 90.3 fL (81.0-99.0); MEAN PLATELET VOLUME 9.9 fL (7.9-10.8); MONOCYTES # (AUTO) 0.7 10^3/uL (0.0-1.0); MONOCYTES % (AUTO) 5.1 %; NEUTROPHILS # (AUTO) 10.3 10^3/uL (1.5-6.6); NEUTROPHILS % (AUTO) 79.7 %; PLT - PLATELET COUNT 293 10^3/uL (130-450); RED BLOOD COUNT 4.64 10^6/uL (4.20-5.40); RED CELL DISTRIBUTION WIDTH 13.9 % (12.0-15.0); WHITE BLOOD COUNT 12.9 x10^3/uL (4.8-10.8)
[2019-03-15 12:34] LABS: ALBUMIN 3.4 g/dL (3.2-5.5); ALKALINE PHOSPHATASE 87 IU/L (42-121); ALT ALANINE AMINOTRANSFERASE 21 IU/L (10-60); AST ASPARTATE AMINOTRANSFERASE 23 IU/L (10-42); BILIRUBIN,TOTAL 0.5 mg/dL (0.2-1.0); BUN - BLOOD UREA NITROGEN 20 mg/dL (6-20); CALCIUM 8.8 mg/dL (8.5-10.3); CARBON DIOXIDE - CO2 32 mmol/L (21-32); CHLORIDE 98 mmol/L (101-111); CK- CREATINE KINASE 93 IU/L (22-269); CREATININE 0.8 mg/dL (0.4-1.0); GFR - MDRD 71 (>89); GLUCOSE 141 mg/dL (70-100); LIPASE 31 U/L (22-51); SODIUM 136 mmol/L (135-145); TOTAL PROTEIN 6.8 g/dL (6.7-8.2)
--- NOTE | 2019-03-15 13:07 | CT Report ---
Reason: new onset seizure today Procedure Date: 03/15/2019 Accession Number: [id number] / [id number] Procedure: CT - HEAD WO CPT Code: Final Report FULL RESULT: EXAM: CT HEAD EXAM DATE: 03/15/2019 12:42 PM. CLINICAL HISTORY: New onset seizure today. COMPARISON: CERVICAL SPINE W/O 09/26/2018 12:41 PM HEAD W/O 09/26/2018 12:41 PM. TECHNIQUE: Multiaxial CT images were obtained from the foramen magnum to the vertex. Reformats: Sagittal and coronal. IV contrast: None. In accordance with CT protocol optimization, one or more of the following dose reduction techniques were utilized for this exam: automated exposure control, adjustment of mA and/or KV based on patient size, or use of iterative reconstructive technique. FINDINGS: Parenchyma: No intraparenchymal hemorrhage. No evidence of mass, midline shift, or CT findings of acute infarction. Escalera-white differentiation is distinct. Diffuse chronic microangiopathic white matter changes are evident. Extraaxial Spaces: Normal for age. No acute or subacute subdural or epidural collections identified. Chronic appearing bifrontal subdural hygromas are seen. Ventricles: The ventricles and cortical sulci are enlarged, consistent with age-related tissue loss. Sinuses and orbits: Imaged paranasal sinuses, orbits, and mastoids show no significant abnormality. Bones: No evidence of fracture or calvarial defect. Other: None. IMPRESSION: Generalized age-related cortical atrophic changes without evidence of acute intracranial abnormality. RADIA
[2019-03-15 13:18] LABS: MUDS CUTOFF CONCENTRATIONS CUTOFF CONC BELOW:
[2019-03-15 13:27] LABS: BILIRUBIN,URINE NEGATIVE (NEGATIVE); GLUCOSE, URINE (UA) NEGATIVE (NEGATIVE); KETONES,URINE (UA) NEGATIVE (NEGATIVE); LEUKOCYTE ESTERASE, URINE NEGATIVE (NEGATIVE); NITRITE,URINE NEGATIVE (NEGATIVE); OCCULT BLOOD,URINE NEGATIVE (NEGATIVE); PH,URINE 7.5 PH (5.0-7.5); PROTEIN,URINE NEGATIVE (NEGATIVE); UROBILINOGEN,URINE 0.2 (NORMAL) E.U./dL (NORMAL)
[2019-03-15 13:32] LABS: CLARITY,URINE CLEAR (CLEAR)
[2019-03-15 13:35] VITALS: BP 150/68
[2019-03-15 13:54] LABS: AMPHETAMINE SCREEN,URINE POSITIVE (NEGATIVE); BENZODIAZEPINES SCREEN, URINE POSITIVE (NEGATIVE); COCAINE SCREEN URINE NEGATIVE (NEGATIVE); METHADONE SCREEN, URINE NEGATIVE (NEGATIVE); METHAMPHETAMINES SCREEN, URINE POSITIVE (NEGATIVE); OPIATE SCREEN, URINE NEGATIVE (NEGATIVE); OXYCODONE SCREEN, URINE NEGATIVE (NEGATIVE); PROPOXYPHENE SCREEN, URINE NEGATIVE (NEGATIVE); TRICYCLIC ANTIDEPRESSANT,URINE NEGATIVE (NEGATIVE)
== END 2019-03-15 14:12 | disposition home or self-care (01) ==
LOC: EDUNIT# → ED 11:15
DX: R56.9 Unspecified convulsions (principal); M79.7 Fibromyalgia; M54.9 Dorsalgia, unspecified; G89.29 Other chronic pain; I10 Essential (primary) hypertension; E11.9 Type 2 diabetes mellitus without complications; Z79.82 Long term (current) use of aspirin
CPT/HCPCS: 36415; 70450; 80053; 81003; 82550; 83605; 83690; 83735; 84146; 85025; 85651; 93005; 96360; 99283; A9270; 80306; 80320; 81001; 87086

== ENCOUNTER 2022-03-10 10:40 | Outpatient (CLI) | payer MEDICARE, BC | END 2022-03-10 10:41 | disposition critical access hospital (66) | LOC: EMS 10:40 | DX: R06.02 Shortness of breath (principal); R61 Generalized hyperhidrosis | CPT/HCPCS: A0425; A0427 ==

== ENCOUNTER 2022-03-10 10:55 | Emergency (ER) | payer MEDICARE, BC ==
[2022-03-10] MEDS ORDERED: ALBUTEROL NEB 2.5 MG/3 ML INH STA ×2 (11:13→12:26)
[2022-03-10] MEDS ORDERED: LORazepam 2 MG/ML VIAL IVP STA ×2 (11:19→14:26)
--- NOTE | 2022-03-10 11:20 | ED Physician Documentation ---
History of Present Illness - Stated complaint Stated Complaint: SOA - Chief complaint Chief Complaint: Resp - History obtained from History obtained from: Patient, EMS - History of Present Illness Timing: Today Pain level max: 0 Pain level now: 0 - Additonal information Additional information: Patient is a 72-year-old female who is brought into the emergency department by EMS for difficulty breathing that started today. She states similar episode about 2 to 3 weeks ago that resolved on its own. She states she has a history of "restrictive lung disease". She states she does not use oxygen at home. Does not use inhalers or nebulizers. She was given a DuoNeb treatment with EMS. Patient denies any fevers, cough, congestion. No abdominal pain. No nausea or vomiting. Nothing makes it better or worse. No chest pain. No history of cardiac disease. Patient is on oxycodone 08/16/2024 tabs up to 4 times per day. She also had a prescription for diazepam, 10 mg tabs. She is also on fentanyl patches, 75 mcg every 72 hours Patient states that she is on these medications for pain from her fibromyalgia Review of Systems Ten Systems: 10 systems reviewed and negative Constitutional: denies: Fever, Chills Nose: denies: Rhinorrhea / runny nose, Congestion Cardiac: denies: Palpitations Respiratory: denies: Cough GI: denies: Vomiting, Diarrhea Skin: denies: Rash Musculoskeletal: denies: Neck pain, Back pain Neurologic: denies: Headache PD PAST MEDICAL HISTORY - Past Medical History Past Medical History: Yes Cardiovascular: Hypertension, High cholesterol Respiratory: Shortness of breath Neuro: Migraines Endocrine/Autoimmune: Type 2 diabetes GI: GERD LIGHTER CAPTAIN: None : None HEENT: None Psych: Depression Musculoskeletal: Fibromyalgia, Chronic back pain Derm: None - Past Surgical History Past Surgical History: Yes General: Cholecystectomy Ortho: Carpal Tunnel surgery HEENT: Cataracts, Tonsil/Adenoidectomy - Present Medications Home Medications: Ambulatory Orders Medication Instructions Recorded Confirmed Diazepam [Valium] 10 mg PO QID 11/28/12 01/11/17 Levothyroxine Sodium [Synthroid] 75 mcg PO DAILY 11/28/12 01/11/17 fentaNYL [Duragesic 75mcg patch] 1 patch TD DAILY 02/23/14 03/10/22 Aspirin Chewable [[place] 81 mg PO DAILY 03/15/19 03/15/19 Aspirin] Cholecalciferol (Vitamin D3) 2,000 unit PO 03/15/19 03/15/19 [Vitamin D3] Metoprolol Tartrate [Lopressor] 25 mg PO BID 03/15/19 03/15/19 oxyCODONE/ACET 5/325 [Percocet 5 1 each PO Q4-6H 03/15/19 03/10/22 mg/325 mg] - Allergies Allergies/Adverse Reactions: Allergies Allergy/AdvReac Type Severity Reaction Status Date / Time Penicillins Allergy unknown Verified 03/15/19 11:21 streptomycin [Streptomycin] Allergy unknown Verified 03/15/19 11:21 Sulfa (Sulfonamide Allergy Rash Verified 03/15/19 11:21 Antibiotics) adhesive tape Allergy unknown Uncoded 09/26/18 11:53 - Social History Does the pt smoke?: No Smoking Status: Never smoker Does the pt drink ETOH?: No Does the pt have substance abuse?: Yes - Immunizations Immunizations are current?: Yes - POLST Patient has POLST: No PD ED PE NORMAL - Vitals Vital signs reviewed: Yes - General General: Alert and oriented X 3, Well developed/nourished - HEENT HEENT: PERRL, Moist mucous membranes, Pharynx benign - Neck Neck: Supple, no meningeal sign - Cardiac Cardiac: RRR, Strong equal pulses - Respiratory Respiratory: No respiratory distress, Clear bilaterally - Abdomen Abdomen: Soft, Non tender, Non distended - Derm Derm: Warm and dry - Extremities Extremities: No edema, No calf tenderness / cord - Neuro Neuro: Alert and oriented X 3 - Psych Psych: Other (Anxious appearing) Results - Vitals Vitals: Vital Signs - 24 hr 03/10/22 03/10/22 03/10/22 11:12 13:18 13:24 Temperature 97.2 C H Heart Rate 72 81 80 Respiratory 24 20 22 Rate Blood Pressure 149/60 H 165/76 H O2 Saturation 100 98 03/10/22 03/10/22 14:52 15:00 Temperature Heart Rate 77 80 Respiratory 20 18 Rate Blood Pressure 166/67 H O2 Saturation 96 Oxygen O2 Source Room air Oxygen Flow Rate 2 - EKG (time done) 1150 Rate: Rate (enter#) (72) Rhythm: NSR [place]: Normal Intervals: Normal MD QRS: Normal, LVH Ischemia: Normal ST segments - Labs Labs: Laboratory Tests 03/10/22 03/10/22 03/10/22 11:25 11:27 11:27 WBC 19.2 H RBC 4.59 Hgb 13.1 Hct 42.6 MCV 92.8 MCH 28.5 MCHC 30.8 L RDW 13.3 Plt Count 319 MPV 10.5 Neut # (Auto) 15.6 H Lymph # (Auto) 2.3 Reagan # (Auto) 0.9 Eos # (Auto) 0.2 Baso # (Auto) 0.1 Absolute Nucleated RBC 0.00 Nucleated RBC % 0.0 Sodium 137 Potassium 4.1 Chloride 101 Carbon Dioxide 23 Anion Gap 13.0 BUN 26 H Creatinine 0.9 Estimated GFR (MDRD) 62 L Glucose 301 H Calcium 9.2 Total Bilirubin Direct Bilirubin AST ALT Alkaline Phosphatase Troponin I High Sens B-Natriuretic Peptide Total Protein Albumin Globulin Nasal Adenovirus (PCR) NOT DETECTED Nasal B. parapertussis DNA (PCR) NOT DETECTED Nasal Coronavir 229E PCR NOT DETECTED Nasal Coronavir HKU1 PCR NOT DETECTED Nasal Coronavir NL63 PCR NOT DETECTED Nasal Coronavir OC43 PCR NOT DETECTED Nasal Enterovir/Rhinovir PCR NOT DETECTED Nasal Influenza B PCR NOT DETECTED Nasal Influenza A PCR NOT DETECTED Nasal Parainfluen 1 PCR NOT DETECTED Nasal Parainfluen 2 PCR NOT DETECTED Nasal Parainfluen 3 PCR NOT DETECTED Nasal Parainfluen 4 PCR NOT DETECTED Nasal RSV (PCR) NOT DETECTED Nasal B.pertussis DNA PCR NOT DETECTED Nasal C.pneumoniae (PCR) NOT DETECTED Andres Human Metapneumo PCR NOT DETECTED Nasal M.pneumoniae (PCR) NOT DETECTED Nasal SARS-CoV-2 (PCR) NOT DETECTED 03/10/22 03/10/22 03/10/22 11:29 13:53 14:56 WBC RBC Hgb Hct MCV MCH MCHC RDW Plt Count MPV Neut # (Auto) Lymph # (Auto) Reagan # (Auto) Eos # (Auto) Baso # (Auto) Absolute Nucleated RBC Nucleated RBC % Sodium Potassium Chloride Carbon Dioxide Anion Gap BUN Creatinine Estimated GFR (MDRD) Glucose Calcium Total Bilirubin 0.7 Direct Bilirubin 0.1 AST 88 H ALT 56 Alkaline Phosphatase 93 Troponin I High Sens 44.7 H* 262.9 H* B-Natriuretic Peptide Total Protein 6.9 Albumin 3.7 Globulin 3.2 Nasal Adenovirus (PCR) Nasal B. parapertussis DNA (PCR) Nasal Coronavir 229E PCR Nasal Coronavir HKU1 PCR Nasal Coronavir NL63 PCR Nasal Coronavir OC43 PCR Nasal Enterovir/Rhinovir PCR Nasal Influenza B PCR Nasal Influenza A PCR Nasal Parainfluen 1 PCR Nasal Parainfluen 2 PCR Nasal Parainfluen 3 PCR Nasal Parainfluen 4 PCR Nasal RSV (PCR) Nasal B.pertussis DNA PCR Nasal C.pneumoniae (PCR) Andres Human Metapneumo PCR Nasal M.pneumoniae (PCR) Nasal SARS-CoV-2 (PCR) 03/10/22 14:56 WBC RBC Hgb Hct MCV MCH MCHC RDW Plt Count MPV Neut # (Auto) Lymph # (Auto) Reagan # (Auto) Eos # (Auto) Baso # (Auto) Absolute Nucleated RBC Nucleated RBC % Sodium Potassium Chloride Carbon Dioxide Anion Gap BUN Creatinine Estimated GFR (MDRD) Glucose Calcium Total Bilirubin Direct Bilirubin AST ALT Alkaline Phosphatase Troponin I High Sens B-Natriuretic Peptide 794 H Total Protein Albumin Globulin Nasal Adenovirus (PCR) Nasal B. parapertussis DNA (PCR) Nasal Coronavir 229E PCR Nasal Coronavir HKU1 PCR Nasal Coronavir NL63 PCR Nasal Coronavir OC43 PCR Nasal Enterovir/Rhinovir PCR Nasal Influenza B PCR Nasal Influenza A PCR Nasal Parainfluen 1 PCR Nasal Parainfluen 2 PCR Nasal Parainfluen 3 PCR Nasal Parainfluen 4 PCR Nasal RSV (PCR) Nasal B.pertussis DNA PCR Nasal C.pneumoniae (PCR) Andres Human Metapneumo PCR Nasal M.pneumoniae (PCR) Nasal SARS-CoV-2 (PCR) - Rads (name of study) cxr Radiology: Final report received, EMP read contemporaneously, See rad report PD MEDICAL DECISION MAKING - ED course Complexity details: reviewed results, re-evaluated patient, considered differential, d/w patient ED course: 72-year-old female with a history of idiopathic pulmonary fibrosis presents to the emergency department with shortness of breath that started today. No ischemic changes on EKG. Initial high-sensitivity troponin was mildly elevated, repeat troponin went from 44 to almost 300. We will treat as an NSTEMI. Given Lovenox, aspirin. We will begin searching for a bed to transfer the patient. Beds in the region have been full and all the hospitals recently. We will continue treatment until transfer is found. Patient also may have had a component of narcotic withdrawal. She calmed down significantly after her morphine and oxycodone. We will continue to search for a bed. Patient signed out to the [facility] emergency department physician[facility] No beds available at [facility] in [facility], [facility], [facility], [facility], [facility], [place]. Patient placed on a wait list with [facility]. Departure - Departure Disposition: 02 Transfer Acute Care Hosp Clinical Impression: NSTEMI (non-ST elevated myocardial infarction), IPF (idiopathic pulmonary fibrosis) Dyspnea Qualifiers: Dyspnea type: unspecified Qualified Code(s): R06.00 - Dyspnea, unspecified Condition: Stable
[2022-03-10 11:40] LABS: BASOPHILS # (AUTO) 0.1 10^3/uL (0.0-0.1); BASOPHILS % (AUTO) 0.3 %; EOSINOPHILS # (AUTO) 0.2 10^3/uL (0.0-0.7); HCT - HEMATOCRIT 42.6 % (37.0-47.0); HGB - HEMOGLOBIN 13.1 g/dL (12.0-16.0); LYMPHOCYTES # (AUTO) 2.3 10^3/uL (1.5-3.5); LYMPHOCYTES % (AUTO) 11.9 %; MEAN CORPUSCULAR HEMOGLOBIN 28.5 pg (27.0-31.0); MEAN CORPUSCULAR HGB CONC 30.8 g/dL (32.0-36.0); MEAN CORPUSCULAR VOLUME 92.8 fL (81.0-99.0); MEAN PLATELET VOLUME 10.5 fL (7.9-10.8); MONOCYTES # (AUTO) 0.9 10^3/uL (0.0-1.0); MONOCYTES % (AUTO) 4.6 %; NEUTROPHILS # (AUTO) 15.6 10^3/uL (1.5-6.6); NEUTROPHILS % (AUTO) 81.3 %; PLT - PLATELET COUNT 319 10^3/uL (130-450); RED BLOOD COUNT 4.59 10^6/uL (4.20-5.40); RED CELL DISTRIBUTION WIDTH 13.3 % (12.0-15.0); WHITE BLOOD COUNT 19.2 x10^3/uL (4.8-10.8)
[2022-03-10 11:45] LABS: CALCIUM 9.2 mg/dL (8.5-10.3); CREATININE 0.9 mg/dL (0.4-1.0); POTASSIUM 4.1 mmol/L (3.5-5.0)
--- OUTSIDE RECORDS SUMMARY | 2022-03-10 12:10 | EXTERNAL MEDICAL SUMMARY RPT | Continuity of Care Document ---
:1950 Author Organization [facility] Address [address] [place] [address] Phone Allergies and Intolerances date description facility type (no date) adhesive tape [facility] (unknown) (no date) sulfamethoxazole [facility] (unknown) (no date) trimethoprim [facility] (unknown) Encounters No information. Functional Status No information. Immunizations No information. Medications No information. Problems No information. Procedures No information. Results/Labs test date author facility value unit interpret ation Result panel 1 (unknown) (no date) (unknown) (unknown) POSITIVE (units (unkn own) unknown) (unknown) (no date) (unknown) (unknown) POSITIVE (units (unkn own) unknown) Result panel 2 (unknown) (no (unknown) (unknown) (no value) (units (unk nown) date) unknown) (unknown) (no (unknown) (unknown) [id number] (units (unkno wn) date) unknown) (unknown) (no (unknown) (unknown) 01/18/22 (units (unkno wn) date) unknown) (unknown) (no (unknown) (unknown) [address] [place] [address] (units (unknown) date) unknown) (unknown) (no (unknown) (unknown) Accession Number: (units (unknown) date) [id number] unknown) (unknown) (no (unknown) (unknown) Age/Sex: 71 / F (units (unknown) date) Date of Service: unknown) (unknown) (no (unknown) (unknown) [place] [address] (unit s (unknown) date) unknown) (unknown) (no (unknown) (unknown) Approved by: Agustin (unit s (unknown) date) Dedrick Mcclain on unknown) 01/18/2022 at 17:28 (unknown) (no (unknown) (unknown) Bones and chest (units (unknown) date) wall: No suspicious unknown) bony abnormalities. Soft tissues appear (unknown) (no (unknown) (unknown) COMPARISON: [facility] (units (unknown) date) [facility], CR, XR unknown) CHEST 2V, 11/03/2020, 10:56. (unknown) (no (unknown) (unknown) : 1950 (units (unknown) date) Acct:[id number] unknown) (unknown) (no (unknown) (unknown) Dictated by: Agustin (unit s (unknown) date) Dedrick Mcclain on unknown) 01/18/2022 at 17:25 (unknown) (no (unknown) (unknown) FINDINGS: (units (unkn own) date) unknown) (unknown) (no (unknown) (unknown) IMPRESSION: No (units (unknown) date) acute unknown) cardiopulmonary abnormality. (unknown) (no (unknown) (unknown) INDICATIONS: (units (u nknown) date) covid+, diminished unknown) RLL (unknown) (no (unknown) (unknown) [facility] (units (unknown) date) unknown) (unknown) (no (unknown) (unknown) Loc: ED (units (unkno wn) date) unknown) (unknown) (no (unknown) (unknown) Lungs and pleura: (units (unknown) date) Lungs are mildly unknown) hyperexpanded and clear. No pleural (unknown) (no (unknown) (unknown) Mediastinum: Stable (unit s (unknown) date) cardiomediastinal unknown) contours with enlargement of the cardiac (unknown) (no (unknown) (unknown) Ordering Provider: (units (unknown) date) Opal Lee unknown) (unknown) (no (unknown) (unknown) PROCEDURE: XR CHEST (unit s (unknown) date) 2V unknown) (unknown) (no (unknown) (unknown) Patient: (units (unkno wn) date) Elidia Rock MR#: unknown) M0 (unknown) (no (unknown) (unknown) Procedure: XR chest (unit s (unknown) date) 2V unknown) (unknown) (no (unknown) (unknown) Signed (units (unkno wn) date) unknown) (unknown) (no (unknown) (unknown) Surgical changes (units (unknown) date) and devices: Stable unknown) vertebral plasty changes are noted in the (unknown) (no (unknown) (unknown) TECHNIQUE: 2 views (units (unknown) date) of the chest were unknown) acquired. (unknown) (no (unknown) (unknown) XRay Report (units (un known) date) unknown) (unknown) (no (unknown) (unknown) effusions or (units (u nknown) date) unknown) (unknown) (no (unknown) (unknown) lower (units (unkno wn) date) unknown) (unknown) (no (unknown) (unknown) pneumothorax. (units ( unknown) date) unknown) (unknown) (no (unknown) (unknown) silhouette. (units (un known) date) unknown) (unknown) (no (unknown) (unknown) thoracic spine. (units (unknown) date) Surgical clips seen unknown) in the right upper quadrant. (unknown) (no (unknown) (unknown) unremarkable. Old (units (unknown) date) healed fractures are unknown) seen in the posterior right upper ribs. Result panel 3 (unknown) (no (unknown) (unknown) (no value) (units (unk nown) date) unknown) (unknown) (no (unknown) (unknown) (Lidoderm) (units (unk nown) date) unknown) (unknown) (no (unknown) (unknown) (Synthroid) (units (un known) date) unknown) (unknown) (no (unknown) (unknown) [id number] (units (unkno wn) date) unknown) (unknown) (no (unknown) (unknown) 1 Q DAY Qty: 0 (units (unknown) date) unknown) (unknown) (no (unknown) (unknown) 1 patch TOP DAILY (units (unknown) date) Qty: 15 0RF unknown) (unknown) (no (unknown) (unknown) 10 mg PO Q6H PRN (units (unknown) date) (Reason: pain) Qty: unknown) 14 0RF (unknown) (no (unknown) (unknown) 01/18/22 15:26 (units (unknown) date) unknown) (unknown) (no (unknown) (unknown) 01/18/22 16:44 (units (unknown) date) unknown) (unknown) (no (unknown) (unknown) 01/18/22 (units (unkno wn) date) Range/Units unknown) (unknown) (no (unknown) (unknown) 01/18/22 (units (unkno wn) date) unknown) (unknown) (no (unknown) (unknown) 15:13 (units (unkno wn) date) unknown) (unknown) (no (unknown) (unknown) 15:26 (units (unkno wn) date) unknown) (unknown) (no (unknown) (unknown) 40 mg PO QDAY Qty: (units (unknown) date) 0 unknown) (unknown) (no (unknown) (unknown) 5 mg PO Q4P Qty: 0 (units (unknown) date) unknown) (unknown) (no (unknown) (unknown) 50 mg PO Qty: 0 (units (unknown) date) unknown) (unknown) (no (unknown) (unknown) 80 1 Qty: 0 (units (un known) date) unknown) (unknown) (no (unknown) (unknown) Age/Sex: 71 / F (units (unknown) date) unknown) (unknown) (no (unknown) (unknown) Allergies (units (unkn own) date) unknown) (unknown) (no (unknown) (unknown) Allergy/AdvReac (units (unknown) date) Type Severity unknown) Reaction Status Date / Time (unknown) (no (unknown) (unknown) Blood Pressure (units (unknown) date) 116/56 L 01/18/22 unknown) 15:13 (unknown) (no (unknown) (unknown) Blood Pressure (units (unknown) date) 116/56 L unknown) (unknown) (no (unknown) (unknown) COVID19 -Nasal (units (unknown) date) RAPID/Pre-Proc Stat unknown) (unknown) (no (unknown) (unknown) Chest [XR chest (units (unknown) date) 2V] Stat unknown) (unknown) (no (unknown) (unknown) Chief Complaint: (units (unknown) date) Upper Respiratory unknown) Symptoms (unknown) (no (unknown) (unknown) Course (units (unkno wn) date) unknown) (unknown) (no (unknown) (unknown) : 1950 (units (unknown) date) Acct:[id number] unknown) (unknown) (no (unknown) (unknown) Date of Service: (units (unknown) date) 01/18/22 unknown) (unknown) (no (unknown) (unknown) Departure (units (unkn own) date) unknown) (unknown) (no (unknown) (unknown) Discharge Plan (units (unknown) date) unknown) (unknown) (no (unknown) (unknown) ED Orders (units (unkn own) date) unknown) (unknown) (no (unknown) (unknown) ER Physician: (units ( unknown) date) Opal Lee unknown) HEALTH COMMISSIONER (unknown) (no (unknown) (unknown) Emergency Report (units (unknown) date) unknown) (unknown) (no (unknown) (unknown) Exam (units (unkno wn) date) unknown) (unknown) (no (unknown) (unknown) Fibromyalgia (units (u nknown) date) unknown) (unknown) (no (unknown) (unknown) General (units (unkno wn) date) unknown) (unknown) (no (unknown) (unknown) Glucosamine (units (un known) date) Sulfate unknown) (GLUCOSAMINE) ##0 11/29/12 (unknown) (no (unknown) (unknown) Glucosamine (units (un known) date) Sulfate unknown) (GLUCOSAMINE) (unknown) (no (unknown) (unknown) HPI - URI/Sore (units (unknown) date) Throat unknown) (unknown) (no (unknown) (unknown) Home Medications (units (unknown) date) unknown) (unknown) (no (unknown) (unknown) Hypertension (units (u nknown) date) unknown) (unknown) (no (unknown) (unknown) Hypothyroidism (units (unknown) date) unknown) (unknown) (no (unknown) (unknown) Initial Vital (units ( unknown) date) Signs unknown) (unknown) (no (unknown) (unknown) Initial Vital (units ( unknown) date) Signs: unknown) (unknown) (no (unknown) (unknown) [facility] (units (unknown) date) [address]) [place] [address] (unknown) (no (unknown) (unknown) Lab Data (units (unkno wn) date) unknown) (unknown) (no (unknown) (unknown) Lab Results (units (un known) date) unknown) (unknown) (no (unknown) (unknown) Labs: (units (unkno wn) date) unknown) (unknown) (no (unknown) (unknown) Darrell Cottrell, (units (unknown) date) MD [Primary Care unknown) Provider] (unknown) (no (unknown) (unknown) MDM - URI/Sore (units (unknown) date) Throat unknown) (unknown) (no (unknown) (unknown) Medical History (units (unknown) date) (Reviewed 04/14/20 unknown) @ 01:53 by Al Olsen DO) (unknown) (no (unknown) (unknown) Medication (units (unk nown) date) Instructions unknown) Recorded Confirmed (unknown) (no (unknown) (unknown) Medication (units (unk nown) date) Instructions unknown) Recorded (unknown) (no (unknown) (unknown) Mode of arrival: (units (unknown) date) Ambulatory unknown) (unknown) (no (unknown) (unknown) No Action (units (unkn own) date) unknown) (unknown) (no (unknown) (unknown) No pertinent past (units (unknown) date) surgical history unknown) (unknown) (no (unknown) (unknown) Ordered: (units (unkno wn) date) unknown) (unknown) (no (unknown) (unknown) Orders (units (unkno wn) date) unknown) (unknown) (no (unknown) (unknown) Oxygen Delivery (units (unknown) date) Method 01/18/22 unknown) 15:13 (unknown) (no (unknown) (unknown) Oxygen Delivery (units (unknown) date) Method Room Air unknown) (unknown) (no (unknown) (unknown) Patient History (units (unknown) date) unknown) (unknown) (no (unknown) (unknown) Patient: (units (unkno wn) date) Elidia Rock Ankur unknown) MR#: [id number] (unknown) (no (unknown) (unknown) Point of Care (units ( unknown) date) Testing unknown) (unknown) (no (unknown) (unknown) Prescriptions: (units (unknown) date) unknown) (unknown) (no (unknown) (unknown) Previous Rx's (units ( unknown) date) unknown) (unknown) (no (unknown) (unknown) Pulse Oximetry 93 (units (unknown) date) 01/18/22 15:13 unknown) (unknown) (no (unknown) (unknown) Pulse Oximetry 93 (units (unknown) date) unknown) (unknown) (no (unknown) (unknown) Pulse Rate 59 L (units (unknown) date) 01/18/22 15:13 unknown) (unknown) (no (unknown) (unknown) Pulse Rate 59 L (units (unknown) date) unknown) (unknown) (no (unknown) (unknown) Qty: 0 (units (unkno wn) date) unknown) (unknown) (no (unknown) (unknown) Rapid Strep A (units ( unknown) date) Negative unknown) (unknown) (no (unknown) (unknown) Referrals: (units (unk nown) date) unknown) (unknown) (no (unknown) (unknown) Related Data (units (u nknown) date) unknown) (unknown) (no (unknown) (unknown) Respiratory Rate (units (unknown) date) 16 01/18/22 15:13 unknown) (unknown) (no (unknown) (unknown) Respiratory Rate (units (unknown) date) 16 unknown) (unknown) (no (unknown) (unknown) Restrictive lung (units (unknown) date) disease unknown) (unknown) (no (unknown) (unknown) Rx Instructions: (units (unknown) date) unknown) (unknown) (no (unknown) (unknown) SARS-CoV-2 (PCR) (units (unknown) date) Positive H unknown) (Negative) (unknown) (no (unknown) (unknown) Signed By: (units (unk nown) date) unknown) (unknown) (no (unknown) (unknown) Smoking Status: (units (unknown) date) Former smoker unknown) (unknown) (no (unknown) (unknown) Social History (units (unknown) date) (Reviewed 04/14/20 unknown) @ 01:53 by Al Olsen DO) (unknown) (no (unknown) (unknown) Source: patient (units (unknown) date) unknown) (unknown) (no (unknown) (unknown) Stated Complaint: (units (unknown) date) fever, flu like unknown) symptoms (unknown) (no (unknown) (unknown) Substance Use (units ( unknown) date) Type: marijuana unknown) (unknown) (no (unknown) (unknown) Surgical History (units (unknown) date) (Updated 01/14/19 @ unknown) 19:52 by Darrell Petty MD) (unknown) (no (unknown) (unknown) Temperature 99.3 F (units (unknown) date) 01/18/22 15:13 unknown) (unknown) (no (unknown) (unknown) Temperature 99.3 F (units (unknown) date) unknown) (unknown) (no (unknown) (unknown) Time Seen by (units (u nknown) date) Provider: 01/18/22 unknown) 16:36 (unknown) (no (unknown) (unknown) Vital Signs - 8 hr (units (unknown) date) unknown) (unknown) (no (unknown) (unknown) Vital Signs (units (un known) date) unknown) (unknown) (no (unknown) (unknown) Vital signs: (units (u nknown) date) unknown) (unknown) (no (unknown) (unknown) [From Sept] (units ( unknown) date) unknown) (unknown) (no (unknown) (unknown) adhesive tape (units ( unknown) date) AdvReac Verified unknown) 01/18/22 15:14 (unknown) (no (unknown) (unknown) alcohol intake (units (unknown) date) frequency: 0-2 unknown) drinks per day (unknown) (no (unknown) (unknown) capsule,delayed (units (unknown) date) release (Nexium) unknown) (unknown) (no (unknown) (unknown) esomeprazole (units (u nknown) date) magnesium 40 mg 40 unknown) mg PO QDAY ##0 11/29/12 (unknown) (no (unknown) (unknown) esomeprazole (units (u nknown) date) magnesium [Nexium] unknown) 40 MG capsule,delayed release(DR/EC) (unknown) (no (unknown) (unknown) fluoxetine 40 mg (units (unknown) date) capsule (Prozac) 80 unknown) 1 ##0 11/29/12 (unknown) (no (unknown) (unknown) fluoxetine (units (unk nown) date) [Prozac] 40 MG unknown) capsule (unknown) (no (unknown) (unknown) ketorolac 10 mg (units (unknown) date) tablet 10 mg PO Q6H unknown) PRN pain #14 tabs 06/07/21 (unknown) (no (unknown) (unknown) ketorolac 10 mg (units (unknown) date) tablet unknown) (unknown) (no (unknown) (unknown) leave on most (units ( unknown) date) painful area for 12 unknown) hrs (unknown) (no (unknown) (unknown) levothyroxine 125 (units (unknown) date) mcg tablet ##0 unknown) 11/29/12 (unknown) (no (unknown) (unknown) levothyroxine (units ( unknown) date) [Synthroid] 125 MCG unknown) tablet (unknown) (no (unknown) (unknown) lidocaine 5 % (units ( unknown) date) topical patch 1 unknown) patch topical DAILY #15 ea 06/07/21 (unknown) (no (unknown) (unknown) lidocaine (units (unkn own) date) [Lidoderm] 5 % unknown) adhesive patch,medicated (unknown) (no (unknown) (unknown) meloxicam 7.5 mg (units (unknown) date) tablet (Mobic) ##0 unknown) 11/29/12 (unknown) (no (unknown) (unknown) meloxicam [Mobic] (units (unknown) date) 7.5 MG tablet unknown) (unknown) (no (unknown) (unknown) oxycodone 5 mg (units (unknown) date) tablet (Roxicodone) unknown) 5 mg PO Q4P ##0 11/29/12 (unknown) (no (unknown) (unknown) oxycodone (units (unkn own) date) [Roxicodone] 5 MG unknown) tablet (unknown) (no (unknown) (unknown) pregabalin 100 mg (units (unknown) date) capsule (Lyrica) 1 unknown) Q DAY ##0 11/29/12 (unknown) (no (unknown) (unknown) pregabalin (units (unk nown) date) [Lyrica] 100 MG unknown) capsule (unknown) (no (unknown) (unknown) rosuvastatin 20 mg (units (unknown) date) tablet (Crestor) unknown) ##0 11/29/12 (unknown) (no (unknown) (unknown) rosuvastatin (units (u nknown) date) [Crestor] 20 MG unknown) tablet (unknown) (no (unknown) (unknown) substance use (units ( unknown) date) type: does not use unknown) (unknown) (no (unknown) (unknown) sulfamethoxazole (units (unknown) date) Allergy Verified unknown) 01/18/22 15:14 (unknown) (no (unknown) (unknown) trimethoprim [From (units (unknown) date) Septra] Allergy unknown) Verified 01/18/22 15:14 (unknown) (no (unknown) (unknown) venlafaxine 50 MG (units (unknown) date) tablet unknown) (unknown) (no (unknown) (unknown) venlafaxine 50 mg (units (unknown) date) tablet 50 mg PO ##0 unknown) 11/29/12 Result panel 4 (unknown) (no (unknown) (unknown) (no value) (units (unk nown) date) unknown) (unknown) (no (unknown) (unknown) (Clarinex) #20 (units (unknown) date) tabs unknown) (unknown) (no (unknown) (unknown) (Lidoderm) (units (unk nown) date) unknown) (unknown) (no (unknown) (unknown) (Synthroid) (units (un known) date) unknown) (unknown) (no (unknown) (unknown) *If you do not (units (unknown) date) have a primary care unknown) provider please contact [phone] to (unknown) (no (unknown) (unknown) *Please continue (units (unknown) date) to take your unknown) regular medications as directed. (unknown) (no (unknown) (unknown) *Please follow up (units (unknown) date) with your primary unknown) care provider in 2-3 days, call for an (unknown) (no (unknown) (unknown) *Return to (units (unk nown) date) Emergency unknown) Department if you should have any new, worsening, or (unknown) (no (unknown) (unknown) *What to do: (units (u nknown) date) unknown) (unknown) (no (unknown) (unknown) *You have been (units (unknown) date) diagnosed with unknown) COVID-19. I am sorry that you are ill, please use (unknown) (no (unknown) (unknown) [id number] (units (unkno wn) date) unknown) (unknown) (no (unknown) (unknown) 1 Q DAY Qty: 0 (units (unknown) date) unknown) (unknown) (no (unknown) (unknown) 1 patch TOP DAILY (units (unknown) date) Qty: 15 0RF unknown) (unknown) (no (unknown) (unknown) 10 mg PO Q6H PRN (units (unknown) date) (Reason: pain) Qty: unknown) 14 0RF (unknown) (no (unknown) (unknown) 01/18/22 15:26 (units (unknown) date) unknown) (unknown) (no (unknown) (unknown) 01/18/22 16:44 (units (unknown) date) unknown) (unknown) (no (unknown) (unknown) 01/18/22 (units (unkno wn) date) Range/Units unknown) (unknown) (no (unknown) (unknown) 01/18/22 (units (unkno wn) date) unknown) (unknown) (no (unknown) (unknown) 15:13 (units (unkno wn) date) unknown) (unknown) (no (unknown) (unknown) 15:26 (units (unkno wn) date) unknown) (unknown) (no (unknown) (unknown) 40 mg PO QDAY Qty: (units (unknown) date) 0 unknown) (unknown) (no (unknown) (unknown) 5 mg PO BID PRN (units (unknown) date) (Reason: nasal unknown) congestion) Qty: 20 0RF (unknown) (no (unknown) (unknown) 5 mg PO Q4P Qty: 0 (units (unknown) date) unknown) (unknown) (no (unknown) (unknown) 50 mg PO Qty: 0 (units (unknown) date) unknown) (unknown) (no (unknown) (unknown) 500 mg PO TID PRN (units (unknown) date) (Reason: muscle unknown) aches) Qty: 14 0RF (unknown) (no (unknown) (unknown) 600 mg PO BID Qty: (units (unknown) date) 20 0RF unknown) (unknown) (no (unknown) (unknown) 80 1 Qty: 0 (units (un known) date) unknown) (unknown) (no (unknown) (unknown) Activity (units (unkno wn) date) Restrictions/Additi unknown) onal Instructions: (unknown) (no (unknown) (unknown) Age/Sex: 71 / F (units (unknown) date) unknown) (unknown) (no (unknown) (unknown) Allergies (units (unkn own) date) unknown) (unknown) (no (unknown) (unknown) Allergy/AdvReac (units (unknown) date) Type Severity unknown) Reaction Status Date / Time (unknown) (no (unknown) (unknown) Blood Pressure (units (unknown) date) 116/56 L 01/18/22 unknown) 15:13 (unknown) (no (unknown) (unknown) Blood Pressure (units (unknown) date) 116/56 L unknown) (unknown) (no (unknown) (unknown) CDC guidelines for (units (unknown) date) quarantine, mask unknown) wearing, physical distancing, and infection (unknown) (no (unknown) (unknown) COVID (+) on day (units (unknown) date) [] of symptoms unknown) without hypoxia, respiratory distress, (unknown) (no (unknown) (unknown) COVID-19 (units (unkno wn) date) unknown) (unknown) (no (unknown) (unknown) COVID19 -Nasal (units (unknown) date) RAPID/Pre-Proc Stat unknown) (unknown) (no (unknown) (unknown) Cardiovascular: (units (unknown) date) regular rate and unknown) rhythm, no peripheral edema, warm extremities (unknown) (no (unknown) (unknown) Chest [XR chest (units (unknown) date) 2V] Stat unknown) (unknown) (no (unknown) (unknown) Chief Complaint: (units (unknown) date) Upper Respiratory unknown) Symptoms (unknown) (no (unknown) (unknown) Clinical (units (unkno wn) date) Impression: unknown) (unknown) (no (unknown) (unknown) Course (units (unkno wn) date) unknown) (unknown) (no (unknown) (unknown) : 1950 (units (unknown) date) Acct:[id number] unknown) (unknown) (no (unknown) (unknown) Date of Service: (units (unknown) date) 01/18/22 unknown) (unknown) (no (unknown) (unknown) Departure (units (unkn own) date) unknown) (unknown) (no (unknown) (unknown) Discharge Plan (units (unknown) date) unknown) (unknown) (no (unknown) (unknown) Drug] (units (unkno wn) date) unknown) (unknown) (no (unknown) (unknown) ED Orders (units (unkn own) date) unknown) (unknown) (no (unknown) (unknown) ER Physician: (units ( unknown) date) Opal Lee unknown) HEALTH COMMISSIONER (unknown) (no (unknown) (unknown) Emergency Report (units (unknown) date) unknown) (unknown) (no (unknown) (unknown) Exam Narrative: (units (unknown) date) unknown) (unknown) (no (unknown) (unknown) Exam (units (unkno wn) date) unknown) (unknown) (no (unknown) (unknown) Fibromyalgia (units (u nknown) date) unknown) (unknown) (no (unknown) (unknown) GI: abdomen soft, (units (unknown) date) nontender to unknown) palpation, nondistended, without masses, rebound (unknown) (no (unknown) (unknown) General (units (unkno wn) date) unknown) (unknown) (no (unknown) (unknown) General: (units (unkno wn) date) cooperative, unknown) comfortable, in no acute distress, well groomed (unknown) (no (unknown) (unknown) Glucosamine (units (un known) date) Sulfate unknown) (GLUCOSAMINE) ##0 11/29/12 (unknown) (no (unknown) (unknown) Glucosamine (units (un known) date) Sulfate unknown) (GLUCOSAMINE) (unknown) (no (unknown) (unknown) HEENT: symmetrical (units (unknown) date) facial expressions, unknown) moist mucous membranes (unknown) (no (unknown) (unknown) HPI - URI/Sore (units (unknown) date) Throat unknown) (unknown) (no (unknown) (unknown) HPI Narrative: (units (unknown) date) unknown) (unknown) (no (unknown) (unknown) HPI (units (unkno wn) date) unknown) (unknown) (no (unknown) (unknown) History of Present (units (unknown) date) Illness unknown) (unknown) (no (unknown) (unknown) Home Medications (units (unknown) date) unknown) (unknown) (no (unknown) (unknown) Hypertension (units (u nknown) date) unknown) (unknown) (no (unknown) (unknown) Hypothyroidism (units (unknown) date) unknown) (unknown) (no (unknown) (unknown) Initial Vital (units ( unknown) date) Signs unknown) (unknown) (no (unknown) (unknown) Initial Vital (units ( unknown) date) Signs: unknown) (unknown) (no (unknown) (unknown) Instructions: (units ( unknown) date) COVID-19 unknown) (unknown) (no (unknown) (unknown) [facility] (units (unknown) date) [address] [place] [address] Street unknown) [place] [address] (unknown) (no (unknown) (unknown) Lab Data (units (unkno wn) date) unknown) (unknown) (no (unknown) (unknown) Lab Results (units (un known) date) unknown) (unknown) (no (unknown) (unknown) Labs: (units (unkno wn) date) unknown) (unknown) (no (unknown) (unknown) Darrell Cottrell, (units (unknown) date) [Primary Care unknown) Provider] (unknown) (no (unknown) (unknown) MDM - URI/Sore (units (unknown) date) Throat unknown) (unknown) (no (unknown) (unknown) MDM Narrative (units ( unknown) date) unknown) (unknown) (no (unknown) (unknown) MSK: moves all (units (unknown) date) extremities, unknown) neurovascularly intact, no weakness, normal tone (unknown) (no (unknown) (unknown) Medical History (units (unknown) date) (Reviewed 01/18/22 unknown) @ 17:04 by PUJA Ramirez) (unknown) (no (unknown) (unknown) Medical decision (units (unknown) date) making narrative: unknown) (unknown) (no (unknown) (unknown) Medication (units (unk nown) date) Instructions unknown) Recorded Confirmed (unknown) (no (unknown) (unknown) Medication (units (unk nown) date) Instructions unknown) Recorded (unknown) (no (unknown) (unknown) Mode of arrival: (units (unknown) date) Ambulatory unknown) (unknown) (no (unknown) (unknown) Narrative (units (unkn own) date) unknown) (unknown) (no (unknown) (unknown) Narrative: (units (unk nown) date) unknown) (unknown) (no (unknown) (unknown) Neuro: normal (units ( unknown) date) speech and unknown) cognition, A+O x3, ambulatory, clear speech (unknown) (no (unknown) (unknown) New (units (unkno wn) date) unknown) (unknown) (no (unknown) (unknown) No Action (units (unkn own) date) unknown) (unknown) (no (unknown) (unknown) No pertinent past (units (unknown) date) surgical history unknown) (unknown) (no (unknown) (unknown) Ordered: (units (unkno wn) date) unknown) (unknown) (no (unknown) (unknown) Orders (units (unkno wn) date) unknown) (unknown) (no (unknown) (unknown) Oxygen Delivery (units (unknown) date) Method 01/18/22 unknown) 15:13 (unknown) (no (unknown) (unknown) Oxygen Delivery (units (unknown) date) Method Room Air unknown) (unknown) (no (unknown) (unknown) Patient (units (unkno wn) date) Disposition: Home unknown) (unknown) (no (unknown) (unknown) Patient History (units (unknown) date) unknown) (unknown) (no (unknown) (unknown) Patient: (units (unkno wn) date) Elidia Rock Ankur unknown) MR#: [id number] (unknown) (no (unknown) (unknown) Paxlovid (EUA) 300 (units (unknown) date) mg (150 mg x 2)-100 unknown) mg tablets,dose pack (unknown) (no (unknown) (unknown) Point of Care (units ( unknown) date) Testing unknown) (unknown) (no (unknown) (unknown) Prescriptions: (units (unknown) date) unknown) (unknown) (no (unknown) (unknown) Previous Rx's (units ( unknown) date) unknown) (unknown) (no (unknown) (unknown) Psych: mental (units ( unknown) date) status is grossly unknown) normal, congruent mood, normal affect, pleasant (unknown) (no (unknown) (unknown) Pulse Oximetry 93 (units (unknown) date) 01/18/22 15:13 unknown) (unknown) (no (unknown) (unknown) Pulse Oximetry 93 (units (unknown) date) unknown) (unknown) (no (unknown) (unknown) Pulse Rate 59 L (units (unknown) date) 01/18/22 15:13 unknown) (unknown) (no (unknown) (unknown) Pulse Rate 59 L (units (unknown) date) unknown) (unknown) (no (unknown) (unknown) Qty: 0 (units (unkno wn) date) unknown) (unknown) (no (unknown) (unknown) Rapid Strep A (units ( unknown) date) Negative unknown) (unknown) (no (unknown) (unknown) Referrals: (units (unk nown) date) unknown) (unknown) (no (unknown) (unknown) Related Data (units (u nknown) date) unknown) (unknown) (no (unknown) (unknown) Respiratory Rate (units (unknown) date) 16 01/18/22 15:13 unknown) (unknown) (no (unknown) (unknown) Respiratory Rate (units (unknown) date) 16 unknown) (unknown) (no (unknown) (unknown) Respiratory: (units (u nknown) date) normal effort, able unknown) to speak in complete sentences, without (unknown) (no (unknown) (unknown) Restrictive lung (units (unknown) date) disease unknown) (unknown) (no (unknown) (unknown) Review of Systems (units (unknown) date) unknown) (unknown) (no (unknown) (unknown) Review of systems (units (unknown) date) is negative for unknown) acute abnormalities unless otherwise noted in (unknown) (no (unknown) (unknown) Reviewed vitals (units (unknown) date) signs and nursing unknown) notes. (unknown) (no (unknown) (unknown) Rx Instructions: (units (unknown) date) unknown) (unknown) (no (unknown) (unknown) SARS-CoV-2 (PCR) (units (unknown) date) Positive H unknown) (Negative) (unknown) (no (unknown) (unknown) See Rx (units (unkno wn) date) Instructions .ROUTE unknown) .COMPLEX Qty: 30 0RF (unknown) (no (unknown) (unknown) Signed By: (units (unk nown) date) unknown) (unknown) (no (unknown) (unknown) Skin: brisk (units (un known) date) capillary refill, unknown) without pallor or erythema (unknown) (no (unknown) (unknown) Smoking Status: (units (unknown) date) Former smoker unknown) (unknown) (no (unknown) (unknown) Social History (units (unknown) date) (Reviewed 01/18/22 unknown) @ 17:04 by PUJA Ramirez) (unknown) (no (unknown) (unknown) Source: patient (units (unknown) date) unknown) (unknown) (no (unknown) (unknown) Stated Complaint: (units (unknown) date) fever, flu like unknown) symptoms (unknown) (no (unknown) (unknown) Stay hydrated, use (units (unknown) date) ibuprofen for the unknown) muscle aches or other pain medication that (unknown) (no (unknown) (unknown) Substance Use (units ( unknown) date) Type: marijuana unknown) (unknown) (no (unknown) (unknown) Surgical History (units (unknown) date) (Reviewed 01/18/22 unknown) @ 17:04 by PUJA Ramirez) (unknown) (no (unknown) (unknown) Temperature 99.3 F (units (unknown) date) 01/18/22 15:13 unknown) (unknown) (no (unknown) (unknown) Temperature 99.3 F (units (unknown) date) unknown) (unknown) (no (unknown) (unknown) This is a (units (unkn own) date) 71-year-old female unknown) with history of fibromyalgia who is COVID (unknown) (no (unknown) (unknown) Time Seen by (units (u nknown) date) Provider: 01/18/22 unknown) 16:36 (unknown) (no (unknown) (unknown) Vital Signs - 8 hr (units (unknown) date) unknown) (unknown) (no (unknown) (unknown) Vital Signs (units (un known) date) unknown) (unknown) (no (unknown) (unknown) Vital signs: (units (u nknown) date) unknown) (unknown) (no (unknown) (unknown) Zyrtec at night to (units (unknown) date) help manage your unknown) congestion, Mucinex as needed for (unknown) (no (unknown) (unknown) [ ] New medication (units (unknown) date) written as a paper unknown) prescription (unknown) (no (unknown) (unknown) [ ] No new (units (unk nown) date) medications given unknown) (unknown) (no (unknown) (unknown) [From ] (units ( unknown) date) unknown) (unknown) (no (unknown) (unknown) [x ] New (units (unkno wn) date) medication unknown) prescriptions sent to your pharmacy: [ [place] ([place]) (no (unknown) (unknown) adhesive tape (units ( unknown) date) AdvReac Verified unknown) 01/18/22 15:14 (unknown) (no (unknown) (unknown) alcohol intake (units (unknown) date) frequency: 0-2 unknown) drinks per day (unknown) (no (unknown) (unknown) and cooperative (units (unknown) date) unknown) (unknown) (no (unknown) (unknown) answered. (units (unkn own) date) unknown) (unknown) (no (unknown) (unknown) appointment. Let (units (unknown) date) them know you were unknown) seen in the Emergency Department and that we (unknown) (no (unknown) (unknown) asked that you be (units (unknown) date) seen for follow-up. unknown) We will electronically transmit a record (unknown) (no (unknown) (unknown) breath sounds. (units (unknown) date) unknown) (unknown) (no (unknown) (unknown) capsule,delayed (units (unknown) date) release (Nexium) unknown) (unknown) (no (unknown) (unknown) chills, shortness (units (unknown) date) of breath, cough, unknown) sore throat, muscle aches, congestion. She (unknown) (no (unknown) (unknown) concerning (units (unk nown) date) symptoms, such as unknown) [fever greater than 101F, chills, worsening pain, (unknown) (no (unknown) (unknown) dehydration, or (units (unknown) date) focal exam to unknown) suggest secondary bacterial infection. Discussed (unknown) (no (unknown) (unknown) denies any nausea, (units (unknown) date) vomiting, diarrhea. unknown) [place] (unknown) (no (unknown) (unknown) denies any (units (unk nown) date) wheezing, chest unknown) pain, weakness, dysuria, altered mentation. She has (unknown) (no (unknown) (unknown) desloratadine 5 mg (units (unknown) date) tablet 5 mg PO BID unknown) PRN nasal congestion 01/18/22 (unknown) (no (unknown) (unknown) desloratadine (units ( unknown) date) [Clarinex] 5 mg unknown) tablet (unknown) (no (unknown) (unknown) discussed for new, (units (unknown) date) not improving, or unknown) worsening symptoms. All questions (unknown) (no (unknown) (unknown) esomeprazole (units (u nknown) date) magnesium 40 mg 40 unknown) mg PO QDAY ##0 11/29/12 (unknown) (no (unknown) (unknown) esomeprazole (units (u nknown) date) magnesium [Nexium] unknown) 40 MG capsule,delayed release(DR/EC) (unknown) (no (unknown) (unknown) establish care (units (unknown) date) with one of the unknown) [facility] primary care providers. (unknown) (no (unknown) (unknown) extended release (units (unknown) date) 12 hr (Mucinex) unknown) (unknown) (no (unknown) (unknown) fluid intake. (units ( unknown) date) Follow-up with PCP unknown) as directed. Return to clinic/ER instructions (unknown) (no (unknown) (unknown) fluoxetine 40 mg (units (unknown) date) capsule (Prozac) 80 unknown) 1 ##0 11/29/12 (unknown) (no (unknown) (unknown) fluoxetine (units (unk nown) date) [Prozac] 40 MG unknown) capsule (unknown) (no (unknown) (unknown) guaifenesin 600 mg (units (unknown) date) tablet, 600 mg PO unknown) BID #20 tabs 01/18/22 (unknown) (no (unknown) (unknown) guaifenesin (units (un known) date) [Mucinex] 600 mg unknown) tablet extended release 12hr (unknown) (no (unknown) (unknown) ketorolac 10 mg (units (unknown) date) tablet 10 mg PO Q6H unknown) PRN pain #14 tabs 06/07/21 (unknown) (no (unknown) (unknown) ketorolac 10 mg (units (unknown) date) tablet unknown) (unknown) (no (unknown) (unknown) leave on most (units ( unknown) date) painful area for 12 unknown) hrs (unknown) (no (unknown) (unknown) levothyroxine 125 (units (unknown) date) mcg tablet ##0 unknown) 11/29/12 (unknown) (no (unknown) (unknown) levothyroxine (units ( unknown) date) [Synthroid] 125 MCG unknown) tablet (unknown) (no (unknown) (unknown) lidocaine 5 % (units ( unknown) date) topical patch 1 unknown) patch topical DAILY #15 ea 06/07/21 (unknown) (no (unknown) (unknown) lidocaine (units (unkn own) date) [Lidoderm] 5 % unknown) adhesive patch,medicated (unknown) (no (unknown) (unknown) medication morning (units (unknown) date) and night for the unknown) next 5 days. Please follow-up with your (unknown) (no (unknown) (unknown) medications and/or (units (unknown) date) antihistamines for unknown) symptomatic relief. Maintain adequate (unknown) (no (unknown) (unknown) meloxicam 7.5 mg (units (unknown) date) tablet (Mobic) ##0 unknown) 11/29/12 (unknown) (no (unknown) (unknown) meloxicam [Mobic] (units (unknown) date) 7.5 MG tablet unknown) (unknown) (no (unknown) (unknown) methocarbamol 500 (units (unknown) date) mg tablet 500 mg PO unknown) TID PRN muscle aches #14 01/18/22 (unknown) (no (unknown) (unknown) methocarbamol 500 (units (unknown) date) mg tablet unknown) (unknown) (no (unknown) (unknown) nirmatrelvir 300 (units (unknown) date) mg (150 mg See Rx unknown) Instructions PO .COMPLEX 01/18/22 (unknown) (no (unknown) (unknown) not been taking any (units (unknown) date) medications for her unknown) symptoms, states that she only takes her (unknown) (no (unknown) (unknown) of today's note if (units (unknown) date) your PCP is in our unknown) system (unknown) (no (unknown) (unknown) oxycodone 5 mg (units (unknown) date) tablet (Roxicodone) unknown) 5 mg PO Q4P ##0 11/29/12 (unknown) (no (unknown) (unknown) oxycodone (units (unkn own) date) [Roxicodone] 5 MG unknown) tablet (unknown) (no (unknown) (unknown) pack(EUA) (units (unkn own) date) (Paxlovid) unknown) (unknown) (no (unknown) (unknown) persistent (units (unk nown) date) vomiting or other unknown) bothersome symptoms]. (unknown) (no (unknown) (unknown) pregabalin 100 mg (units (unknown) date) capsule (Lyrica) 1 unknown) Q DAY ##0 11/29/12 (unknown) (no (unknown) (unknown) pregabalin (units (unk nown) date) [Lyrica] 100 MG unknown) capsule (unknown) (no (unknown) (unknown) prevent you from (units (unknown) date) needing admission unknown) to the hospital from severe COVID illness. (unknown) (no (unknown) (unknown) prevention (units (unk nown) date) measures such as unknown) frequent handwashing. Discussed supportive (unknown) (no (unknown) (unknown) primary care (units (u nknown) date) provider for any unknown) worsening of your symptoms. This will hopefully (unknown) (no (unknown) (unknown) productive cough, (units (unknown) date) Tylenol and unknown) ibuprofen as needed for fever, please take this (unknown) (no (unknown) (unknown) regularly (units (unkn own) date) scheduled unknown) medications. Her primary care provider is at [facility] she (unknown) (no (unknown) (unknown) right lower lobe, (units (unknown) date) tachypnea, without unknown) crackles, wheezing, or other abnormal (unknown) (no (unknown) (unknown) rosuvastatin 20 mg (units (unknown) date) tablet (Crestor) unknown) ##0 11/29/12 (unknown) (no (unknown) (unknown) rosuvastatin (units (u nknown) date) [Crestor] 20 MG unknown) tablet (unknown) (no (unknown) (unknown) substance use (units ( unknown) date) type: does not use unknown) (unknown) (no (unknown) (unknown) sulfamethoxazole (units (unknown) date) Allergy Verified unknown) 01/18/22 15:14 (unknown) (no (unknown) (unknown) tabs (units (unkno wn) date) unknown) (unknown) (no (unknown) (unknown) take TWO 150 mg (units (unknown) date) tablets of unknown) nirmatrelvir with ONE 100 mg tablet of ritonavir (unknown) (no (unknown) (unknown) tenderness or (units ( unknown) date) exquisite unknown) tenderness with exam. (unknown) (no (unknown) (unknown) treatments: (units (un known) date) Tylenol/Motrin as unknown) needed for pain/fever. OTC decongestant (unknown) (no (unknown) (unknown) trimethoprim [From (units (unknown) date) Septra] Allergy unknown) Verified 01/18/22 15:14 (unknown) (no (unknown) (unknown) twice daily for 5 (units (unknown) date) days unknown) (unknown) (no (unknown) (unknown) vaccinated x3, (units (unknown) date) presents to the unknown) emergency department complaining of 4 days of (unknown) (no (unknown) (unknown) venlafaxine 50 MG (units (unknown) date) tablet unknown) (unknown) (no (unknown) (unknown) venlafaxine 50 mg (units (unknown) date) tablet 50 mg PO ##0 unknown) 11/29/12 (unknown) (no (unknown) (unknown) wheezing, stridor, (units (unknown) date) or abnormal breath unknown) sounds. Diminished breath sounds in her (unknown) (no (unknown) (unknown) x2)-ritonavir 100 (units (unknown) date) mg tablet,dose #30 unknown) ea (unknown) (no (unknown) (unknown) your scheduled. (units (unknown) date) unknown) Result panel 5 (unknown) (no (unknown) (unknown) (no value) (units (unk nown) date) unknown) (unknown) (no (unknown) (unknown) <Electronically (units (unknown) date) signed by Opal Craven unknown) [facility]> (unknown) (no (unknown) (unknown) (Clarinex) #20 tabs (unit s (unknown) date) unknown) (unknown) (no (unknown) (unknown) (Lidoderm) (units (unk nown) date) unknown) (unknown) (no (unknown) (unknown) (Synthroid) (units (un known) date) unknown) (unknown) (no (unknown) (unknown) *If you do not have (unit s (unknown) date) a primary care unknown) provider please contact [phone] to (unknown) (no (unknown) (unknown) *Please continue to (unit s (unknown) date) take your regular unknown) medications as directed. (unknown) (no (unknown) (unknown) *Please follow up (units (unknown) date) with your primary unknown) care provider in 2-3 days, call for an (unknown) (no (unknown) (unknown) *Return to (units (unk nown) date) Emergency Department unknown) if you should have any new, worsening, or (unknown) (no (unknown) (unknown) *What to do: (units (u nknown) date) unknown) (unknown) (no (unknown) (unknown) *You have been (units (unknown) date) diagnosed with unknown) COVID-19. I am sorry that you are ill, please use (unknown) (no (unknown) (unknown) [id number] (units (unkno wn) date) unknown) (unknown) (no (unknown) (unknown) 1 Q DAY Qty: 0 (units (unknown) date) unknown) (unknown) (no (unknown) (unknown) 1 patch TOP DAILY (units (unknown) date) Qty: 15 0RF unknown) (unknown) (no (unknown) (unknown) 10 mg PO Q6H PRN (units (unknown) date) (Reason: pain) Qty: unknown) 14 0RF (unknown) (no (unknown) (unknown) 10/05/22 15:26 (units (unknown) date) unknown) (unknown) (no (unknown) (unknown) 01/18/22 16:44 (units (unknown) date) unknown) (unknown) (no (unknown) (unknown) 01/18/22 17:23 (units (unknown) date) unknown) (unknown) (no (unknown) (unknown) 01/18/222011 (units ( unknown) date) unknown) (unknown) (no (unknown) (unknown) 01/18/22 (units (unkno wn) date) Range/Units unknown) (unknown) (no (unknown) (unknown) 01/18/22 (units (unkno wn) date) unknown) (unknown) (no (unknown) (unknown) 15:13 (units (unkno wn) date) unknown) (unknown) (no (unknown) (unknown) 15:26 (units (unkno wn) date) unknown) (unknown) (no (unknown) (unknown) 40 mg PO QDAY Qty: (units (unknown) date) 0 unknown) (unknown) (no (unknown) (unknown) 5 mg PO BID PRN (units (unknown) date) (Reason: nasal unknown) congestion) Qty: 20 0RF (unknown) (no (unknown) (unknown) 5 mg PO Q4P Qty: 0 (units (unknown) date) unknown) (unknown) (no (unknown) (unknown) 50 mg PO Qty: 0 (units (unknown) date) unknown) (unknown) (no (unknown) (unknown) 500 mg PO TID PRN (units (unknown) date) (Reason: muscle unknown) aches) Qty: 14 0RF (unknown) (no (unknown) (unknown) 600 mg PO BID Qty: (units (unknown) date) 20 0RF unknown) (unknown) (no (unknown) (unknown) 80 1 Qty: 0 (units (un known) date) unknown) (unknown) (no (unknown) (unknown) ? (units (unkno wn) date) unknown) (unknown) (no (unknown) (unknown) Activity (units (unkno wn) date) Restrictions/Additio unknown) nal Instructions: (unknown) (no (unknown) (unknown) Age/Sex: 71 / F (units (unknown) date) unknown) (unknown) (no (unknown) (unknown) Allergies (units (unkn own) date) unknown) (unknown) (no (unknown) (unknown) Allergy/AdvReac (units (unknown) date) Type Severity unknown) Reaction Status Date / Time (unknown) (no (unknown) (unknown) Approved by: Agustin (unit s (unknown) date) Dedrick Mcclain on unknown) 01/18/2022 at 17:28 ? (unknown) (no (unknown) (unknown) Blood Pressure (units (unknown) date) 116/56 L 01/18/22 unknown) 15:13 (unknown) (no (unknown) (unknown) Blood Pressure (units (unknown) date) 116/56 L unknown) (unknown) (no (unknown) (unknown) Bones and chest (units (unknown) date) wall:? No suspicious unknown) bony abnormalities.? Soft tissues appear (unknown) (no (unknown) (unknown) CDC guidelines for (units (unknown) date) quarantine, mask unknown) wearing, physical distancing, and infection (unknown) (no (unknown) (unknown) COMPARISON:? [place] (unit s (unknown) date) [facility], , XR unknown) CHEST 2V, 11/03/2020, 10:56. (unknown) (no (unknown) (unknown) COVID (+) on day (units (unknown) date) [4] of symptoms unknown) without hypoxia, respiratory distress, (unknown) (no (unknown) (unknown) COVID infection due (unit s (unknown) date) to her unknown) comorbidities, she has a history of taking (unknown) (no (unknown) (unknown) COVID-19 (units (unkno wn) date) unknown) (unknown) (no (unknown) (unknown) COVID19 -Nasal (units (unknown) date) RAPID/Pre-Proc Stat unknown) (unknown) (no (unknown) (unknown) Cardiovascular: (units (unknown) date) regular rate and unknown) rhythm, no peripheral edema, warm extremities (unknown) (no (unknown) (unknown) Chest [XR chest 2V] (unit s (unknown) date) Stat unknown) (unknown) (no (unknown) (unknown) Chest x-ray: (units (u nknown) date) unknown) (unknown) (no (unknown) (unknown) Chief Complaint: (units (unknown) date) Upper Respiratory unknown) Symptoms (unknown) (no (unknown) (unknown) Clinical (units (unkno wn) date) Impression: unknown) (unknown) (no (unknown) (unknown) Course (units (unkno wn) date) unknown) (unknown) (no (unknown) (unknown) : 1950 (units (unknown) date) Acct:[id number] unknown) (unknown) (no (unknown) (unknown) Date of Service: (units (unknown) date) 01/18/22 unknown) (unknown) (no (unknown) (unknown) Departure (units (unkn own) date) unknown) (unknown) (no (unknown) (unknown) Dictated by: Agustin (unit s (unknown) date) Dedrick Mcclain on unknown) 01/18/2022 at 17:25 ? ? (unknown) (no (unknown) (unknown) Discharge Plan (units (unknown) date) unknown) (unknown) (no (unknown) (unknown) Drug] (units (unkno wn) date) unknown) (unknown) (no (unknown) (unknown) ED Orders (units (unkn own) date) unknown) (unknown) (no (unknown) (unknown) ER Physician: (units ( unknown) date) Opal Lee unknown) (unknown) (no (unknown) (unknown) Emergency Report (units (unknown) date) unknown) (unknown) (no (unknown) (unknown) Exam Narrative: (units (unknown) date) unknown) (unknown) (no (unknown) (unknown) Exam (units (unkno wn) date) unknown) (unknown) (no (unknown) (unknown) FINDINGS:? (units (unk nown) date) unknown) (unknown) (no (unknown) (unknown) Fibromyalgia (units (u nknown) date) unknown) (unknown) (no (unknown) (unknown) GI: abdomen soft, (units (unknown) date) nontender to unknown) palpation, nondistended, without masses, rebound (unknown) (no (unknown) (unknown) General (units (unkno wn) date) unknown) (unknown) (no (unknown) (unknown) General: (units (unkno wn) date) cooperative, unknown) comfortable, in no acute distress, well groomed (unknown) (no (unknown) (unknown) Glucosamine Sulfate (unit s (unknown) date) (GLUCOSAMINE) ##0 unknown) 11/29/12 (unknown) (no (unknown) (unknown) Glucosamine Sulfate (unit s (unknown) date) (GLUCOSAMINE) unknown) (unknown) (no (unknown) (unknown) HEENT: symmetrical (units (unknown) date) facial expressions, unknown) moist mucous membranes (unknown) (no (unknown) (unknown) HPI - URI/Sore (units (unknown) date) Throat unknown) (unknown) (no (unknown) (unknown) HPI Narrative: (units (unknown) date) unknown) (unknown) (no (unknown) (unknown) HPI (units (unkno wn) date) unknown) (unknown) (no (unknown) (unknown) History of Present (units (unknown) date) Illness unknown) (unknown) (no (unknown) (unknown) Home Medications (units (unknown) date) unknown) (unknown) (no (unknown) (unknown) Hypertension (units (u nknown) date) unknown) (unknown) (no (unknown) (unknown) Hypothyroidism (units (unknown) date) unknown) (unknown) (no (unknown) (unknown) I have sent (units (un known) date) medications to your unknown) pharmacy, they may not cover the things (unknown) (no (unknown) (unknown) IMPRESSION:? No (units (unknown) date) acute unknown) cardiopulmonary abnormality. (unknown) (no (unknown) (unknown) INDICATIONS:? (units ( unknown) date) covid+, diminished unknown) RLL (unknown) (no (unknown) (unknown) Imaging Data (units (u nknown) date) unknown) (unknown) (no (unknown) (unknown) Initial Vital Signs (unit s (unknown) date) unknown) (unknown) (no (unknown) (unknown) Initial Vital (units ( unknown) date) Signs: unknown) (unknown) (no (unknown) (unknown) Instructions: (units ( unknown) date) COVID-19 unknown) (unknown) (no (unknown) (unknown) [facility] (units (unknown) date) [address] unknown) [place] [address] (unknown) (no (unknown) (unknown) Lab Data (units (unkno wn) date) unknown) (unknown) (no (unknown) (unknown) Lab Results (units (un known) date) unknown) (unknown) (no (unknown) (unknown) Labs: (units (unkno wn) date) unknown) (unknown) (no (unknown) (unknown) Lungs and pleura:? (units (unknown) date) Lungs are mildly unknown) hyperexpanded and clear.? No pleural (unknown) (no (unknown) (unknown) Darrell Cottrell MD (unit s (unknown) date) [Primary Care unknown) Provider] (unknown) (no (unknown) (unknown) MDM - URI/Sore (units (unknown) date) Throat unknown) (unknown) (no (unknown) (unknown) MDM Narrative (units ( unknown) date) unknown) (unknown) (no (unknown) (unknown) MSK: moves all (units (unknown) date) extremities, unknown) neurovascularly intact, no weakness, normal tone (unknown) (no (unknown) (unknown) Mediastinum:? (units ( unknown) date) Stable unknown) cardiomediastinal contours with enlargement of the cardiac (unknown) (no (unknown) (unknown) Medical History (units (unknown) date) (Reviewed 01/18/22 @ unknown) 17:04 by Opal Lee [facility]) (unknown) (no (unknown) (unknown) Medical decision (units (unknown) date) making narrative: unknown) (unknown) (no (unknown) (unknown) Medication (units (unk nown) date) Instructions unknown) Recorded Confirmed (unknown) (no (unknown) (unknown) Medication (units (unk nown) date) Instructions unknown) Recorded (unknown) (no (unknown) (unknown) Mode of arrival: (units (unknown) date) Ambulatory unknown) (unknown) (no (unknown) (unknown) Narrative (units (unkn own) date) unknown) (unknown) (no (unknown) (unknown) Narrative: (units (unk nown) date) unknown) (unknown) (no (unknown) (unknown) Neuro: normal (units ( unknown) date) speech and unknown) cognition, A+O x3, ambulatory, clear speech (unknown) (no (unknown) (unknown) New (units (unkno wn) date) unknown) (unknown) (no (unknown) (unknown) No Action (units (unkn own) date) unknown) (unknown) (no (unknown) (unknown) No pertinent past (units (unknown) date) surgical history unknown) (unknown) (no (unknown) (unknown) Ordered: (units (unkno wn) date) unknown) (unknown) (no (unknown) (unknown) Orders (units (unkno wn) date) unknown) (unknown) (no (unknown) (unknown) Oxygen Delivery (units (unknown) date) Method 01/18/22 unknown) 15:13 (unknown) (no (unknown) (unknown) Oxygen Delivery (units (unknown) date) Method Room Air unknown) (unknown) (no (unknown) (unknown) PROCEDURE:? XR (units (unknown) date) CHEST 2V unknown) (unknown) (no (unknown) (unknown) Patient (units (unkno wn) date) Disposition: Home unknown) (unknown) (no (unknown) (unknown) Patient History (units (unknown) date) unknown) (unknown) (no (unknown) (unknown) Patient: (units (unkno wn) date) Elidia Rock Ankur MR#: unknown) M00 (unknown) (no (unknown) (unknown) Paxlovid (EUA) 300 (units (unknown) date) mg (150 mg x 2)-100 unknown) mg tablets,dose pack (unknown) (no (unknown) (unknown) Point of Care (units ( unknown) date) Testing unknown) (unknown) (no (unknown) (unknown) Prescriptions: (units (unknown) date) unknown) (unknown) (no (unknown) (unknown) Previous Rx's (units ( unknown) date) unknown) (unknown) (no (unknown) (unknown) Psych: mental (units ( unknown) date) status is grossly unknown) normal, congruent mood, normal affect, pleasant (unknown) (no (unknown) (unknown) Pulse Oximetry 93 (units (unknown) date) 01/18/22 15:13 unknown) (unknown) (no (unknown) (unknown) Pulse Oximetry 93 (units (unknown) date) unknown) (unknown) (no (unknown) (unknown) Pulse Rate 59 L (units (unknown) date) 01/18/22 15:13 unknown) (unknown) (no (unknown) (unknown) Pulse Rate 59 L (units (unknown) date) unknown) (unknown) (no (unknown) (unknown) Qty: 0 (units (unkno wn) date) unknown) (unknown) (no (unknown) (unknown) Radiologist's (units ( unknown) date) Impression: unknown) (unknown) (no (unknown) (unknown) Rapid Strep A (units ( unknown) date) Negative unknown) (unknown) (no (unknown) (unknown) Referrals: (units (unk nown) date) unknown) (unknown) (no (unknown) (unknown) Related Data (units (u nknown) date) unknown) (unknown) (no (unknown) (unknown) Respiratory Rate 16 (unit s (unknown) date) 01/18/22 15:13 unknown) (unknown) (no (unknown) (unknown) Respiratory Rate 16 (unit s (unknown) date) unknown) (unknown) (no (unknown) (unknown) Respiratory: normal (unit s (unknown) date) effort, able to unknown) speak in complete sentences, without (unknown) (no (unknown) (unknown) Restrictive lung (units (unknown) date) disease unknown) (unknown) (no (unknown) (unknown) Review of Systems (units (unknown) date) unknown) (unknown) (no (unknown) (unknown) Review of systems (units (unknown) date) is negative for unknown) acute abnormalities unless otherwise noted in (unknown) (no (unknown) (unknown) Reviewed vitals (units (unknown) date) signs and nursing unknown) notes. (unknown) (no (unknown) (unknown) Rx Instructions: (units (unknown) date) unknown) (unknown) (no (unknown) (unknown) SARS-CoV-2 (PCR) (units (unknown) date) Positive H unknown) (Negative) (unknown) (no (unknown) (unknown) See Rx Instructions (unit s (unknown) date) .ROUTE .COMPLEX Qty: unknown) 30 0RF (unknown) (no (unknown) (unknown) Signed By: (units (unk nown) date) unknown) (unknown) (no (unknown) (unknown) Skin: brisk (units (un known) date) capillary refill, unknown) without pallor or erythema (unknown) (no (unknown) (unknown) Smoking Status: (units (unknown) date) Former smoker unknown) (unknown) (no (unknown) (unknown) Social History (units (unknown) date) (Reviewed 01/18/22 @ unknown) 17:04 by PUJA Ramirez) (unknown) (no (unknown) (unknown) Source: patient (units (unknown) date) unknown) (unknown) (no (unknown) (unknown) Stated Complaint: (units (unknown) date) fever, flu like unknown) symptoms (unknown) (no (unknown) (unknown) Stay hydrated, use (units (unknown) date) ibuprofen for the unknown) muscle aches or other pain medication that (unknown) (no (unknown) (unknown) Substance Use Type: (unit s (unknown) date) marijuana unknown) (unknown) (no (unknown) (unknown) Surgical History (units (unknown) date) (Reviewed 01/18/22 @ unknown) 17:04 by PUJA Ramirez) (unknown) (no (unknown) (unknown) Surgical changes (units (unknown) date) and devices:? Stable unknown) vertebral plasty changes are noted in the (unknown) (no (unknown) (unknown) TECHNIQUE:? 2 views (unit s (unknown) date) of the chest were unknown) acquired.? (unknown) (no (unknown) (unknown) Temperature 99.3 F (units (unknown) date) 01/18/22 15:13 unknown) (unknown) (no (unknown) (unknown) Temperature 99.3 F (units (unknown) date) unknown) (unknown) (no (unknown) (unknown) This is a (units (unkn own) date) 71-year-old female unknown) with history of fibromyalgia who is COVID (unknown) (no (unknown) (unknown) Throat Culture Stat (unit s (unknown) date) unknown) (unknown) (no (unknown) (unknown) Time Seen by (units (u nknown) date) Provider: 01/18/22 unknown) 16:36 (unknown) (no (unknown) (unknown) Visit Report Forms: (unit s (unknown) date) Patient Portal/API unknown) (unknown) (no (unknown) (unknown) Vital Signs - 8 hr (units (unknown) date) unknown) (unknown) (no (unknown) (unknown) Vital Signs (units (un known) date) unknown) (unknown) (no (unknown) (unknown) Vital signs: (units (u nknown) date) unknown) (unknown) (no (unknown) (unknown) Zyrtec at night to (units (unknown) date) help manage your unknown) congestion, Mucinex as needed for (unknown) (no (unknown) (unknown) [ ] New medication (units (unknown) date) written as a paper unknown) prescription (unknown) (no (unknown) (unknown) [ ] No new (units (unk nown) date) medications given unknown) (unknown) (no (unknown) (unknown) [From ] (units ( unknown) date) unknown) (unknown) (no (unknown) (unknown) [x ] New medication (unit s (unknown) date) prescriptions sent unknown) to your pharmacy: [ [facility] (no (unknown) (unknown) adhesive tape (units ( unknown) date) AdvReac Verified unknown) 01/18/22 15:14 (unknown) (no (unknown) (unknown) alcohol intake (units (unknown) date) frequency: 0-2 unknown) drinks per day (unknown) (no (unknown) (unknown) and cooperative (units (unknown) date) unknown) (unknown) (no (unknown) (unknown) antihistamines for (units (unknown) date) symptomatic relief. unknown) Maintain adequate fluid intake. Follow (unknown) (no (unknown) (unknown) appointment. Let (units (unknown) date) them know you were unknown) seen in the Emergency Department and that we (unknown) (no (unknown) (unknown) as needed for your (units (unknown) date) symptoms along with unknown) your other medications which can be (unknown) (no (unknown) (unknown) asked that you be (units (unknown) date) seen for follow-up. unknown) We will electronically transmit a record (unknown) (no (unknown) (unknown) back to the (units (unk nown) date) emergency department unknown) if you have worsening of your symptoms, it does (unknown) (no (unknown) (unknown) breath sounds. (units (unknown) date) unknown) (unknown) (no (unknown) (unknown) can not take it (units (unknown) date) with this medication unknown) and she understands. I encouraged her to (unknown) (no (unknown) (unknown) capsule,delayed (units (unknown) date) release (Nexium) unknown) (unknown) (no (unknown) (unknown) chest pain, or (units (unknown) date) other complication. unknown) OTC decongestant medications and/or (unknown) (no (unknown) (unknown) chills, shortness (units (unknown) date) of breath, cough, unknown) sore throat, muscle aches, congestion. She (unknown) (no (unknown) (unknown) come back to the (units (unknown) date) hospital if she has unknown) any severe shortness of breath, worsening, (unknown) (no (unknown) (unknown) concerning (units (unk nown) date) symptoms, such as unknown) [fever greater than 101F, chills, worsening pain, (unknown) (no (unknown) (unknown) dehydration, or (units (unknown) date) focal exam to unknown) suggest secondary bacterial infection. Discussed (unknown) (no (unknown) (unknown) denies any nausea, (units (unknown) date) vomiting, diarrhea. unknown) She lives in [place]. (unknown) (no (unknown) (unknown) denies any (units (unk nown) date) wheezing, chest unknown) pain, weakness, dysuria, altered mentation. She has (unknown) (no (unknown) (unknown) desloratadine 5 mg (units (unknown) date) tablet 5 mg PO BID unknown) PRN nasal congestion 01/18/22 (unknown) (no (unknown) (unknown) desloratadine (units ( unknown) date) [Clarinex] 5 mg unknown) tablet (unknown) (no (unknown) (unknown) effusions or (units (u nknown) date) unknown) (unknown) (no (unknown) (unknown) esomeprazole (units (u nknown) date) magnesium 40 mg 40 unknown) mg PO QDAY ##0 11/29/12 (unknown) (no (unknown) (unknown) esomeprazole (units (u nknown) date) magnesium [Nexium] unknown) 40 MG capsule,delayed release(DR/EC) (unknown) (no (unknown) (unknown) establish care with (unit s (unknown) date) one of the [facility] primary care providers. (unknown) (no (unknown) (unknown) extended release 12 (unit s (unknown) date) hr (Mucinex) unknown) (unknown) (no (unknown) (unknown) fluoxetine 40 mg (units (unknown) date) capsule (Prozac) 80 unknown) 1 ##0 11/29/12 (unknown) (no (unknown) (unknown) fluoxetine [Prozac] (unit s (unknown) date) 40 MG capsule unknown) (unknown) (no (unknown) (unknown) guaifenesin 600 mg (units (unknown) date) tablet, 600 mg PO unknown) BID #20 tabs 01/18/22 (unknown) (no (unknown) (unknown) guaifenesin (units (un known) date) [Mucinex] 600 mg unknown) tablet extended release 12hr (unknown) (no (unknown) (unknown) helpful, any (units (u nknown) date) allergy medications unknown) that you have at home should suffice. Come (unknown) (no (unknown) (unknown) ketorolac 10 mg (units (unknown) date) tablet 10 mg PO Q6H unknown) PRN pain #14 tabs 06/07/21 (unknown) (no (unknown) (unknown) ketorolac 10 mg (units (unknown) date) tablet unknown) (unknown) (no (unknown) (unknown) leave on most (units ( unknown) date) painful area for 12 unknown) hrs (unknown) (no (unknown) (unknown) levothyroxine 125 (units (unknown) date) mcg tablet ##0 unknown) 11/29/12 (unknown) (no (unknown) (unknown) levothyroxine (units ( unknown) date) [Synthroid] 125 MCG unknown) tablet (unknown) (no (unknown) (unknown) lidocaine 5 % (units ( unknown) date) topical patch 1 unknown) patch topical DAILY #15 ea 06/07/21 (unknown) (no (unknown) (unknown) lidocaine (units (unkn own) date) [Lidoderm] 5 % unknown) adhesive patch,medicated (unknown) (no (unknown) (unknown) lower (units (unkno wn) date) unknown) (unknown) (no (unknown) (unknown) medication morning (units (unknown) date) and night for the unknown) next 5 days. Please follow-up with your (unknown) (no (unknown) (unknown) meloxicam 7.5 mg (units (unknown) date) tablet (Mobic) ##0 unknown) 11/29/12 (unknown) (no (unknown) (unknown) meloxicam [Mobic] (units (unknown) date) 7.5 MG tablet unknown) (unknown) (no (unknown) (unknown) methocarbamol 500 (units (unknown) date) mg tablet 500 mg PO unknown) TID PRN muscle aches #14 01/18/22 (unknown) (no (unknown) (unknown) methocarbamol 500 (units (unknown) date) mg tablet unknown) (unknown) (no (unknown) (unknown) nirmatrelvir 300 mg (unit s (unknown) date) (150 mg See Rx unknown) Instructions PO .COMPLEX 01/18/22 (unknown) (no (unknown) (unknown) not appear that you (unit s (unknown) date) have any pneumonia unknown) on your chest x-ray today. I encourage (unknown) (no (unknown) (unknown) not been taking any (units (unknown) date) medications for her unknown) symptoms, states that she only takes her (unknown) (no (unknown) (unknown) not improving, or (units (unknown) date) worsening symptoms. unknown) All questions answered. (unknown) (no (unknown) (unknown) of today's note if (units (unknown) date) your PCP is in our unknown) system (unknown) (no (unknown) (unknown) [id number], (units (unknown) date) hopefully they will, unknown) if not, slat pickler the Paxlovid to help keep (unknown) (no (unknown) (unknown) oxycodone 5 mg (units (unknown) date) tablet (Roxicodone) unknown) 5 mg PO Q4P ##0 11/29/12 (unknown) (no (unknown) (unknown) oxycodone (units (unkn own) date) [Roxicodone] 5 MG unknown) tablet (unknown) (no (unknown) (unknown) pack(EUA) (units (unkn own) date) (Paxlovid) unknown) (unknown) (no (unknown) (unknown) persistent vomiting (unit s (unknown) date) or other bothersome unknown) symptoms]. (unknown) (no (unknown) (unknown) pneumothorax.? (units (unknown) date) unknown) (unknown) (no (unknown) (unknown) pregabalin 100 mg (units (unknown) date) capsule (Lyrica) 1 Q unknown) DAY ##0 11/29/12 (unknown) (no (unknown) (unknown) pregabalin [Lyrica] (unit s (unknown) date) 100 MG capsule unknown) (unknown) (no (unknown) (unknown) prevent you from (units (unknown) date) needing admission to unknown) the hospital from severe COVID illness. (unknown) (no (unknown) (unknown) prevention measures (unit s (unknown) date) such as frequent unknown) handwashing. Discussed supportive (unknown) (no (unknown) (unknown) primary care (units (u nknown) date) provider for any unknown) worsening of your symptoms. This will hopefully (unknown) (no (unknown) (unknown) productive cough, (units (unknown) date) Tylenol and unknown) ibuprofen as needed for fever, please take this (unknown) (no (unknown) (unknown) regularly scheduled (unit s (unknown) date) medications. Her unknown) primary care provider is at [facility] she (unknown) (no (unknown) (unknown) right lower lobe, (units (unknown) date) tachypnea, without unknown) crackles, wheezing, or other abnormal (unknown) (no (unknown) (unknown) rosuvastatin 20 mg (units (unknown) date) tablet (Crestor) ##0 unknown) 11/29/12 (unknown) (no (unknown) (unknown) rosuvastatin (units (u nknown) date) [Crestor] 20 MG unknown) tablet (unknown) (no (unknown) (unknown) rosuvastatin for (units (unknown) date) hyperlipidemia but unknown) states that she is not, I told her that she (unknown) (no (unknown) (unknown) silhouette. (units (un known) date) unknown) (unknown) (no (unknown) (unknown) substance use type: (unit s (unknown) date) does not use unknown) (unknown) (no (unknown) (unknown) sulfamethoxazole (units (unknown) date) Allergy Verified unknown) 01/18/22 15:14 (unknown) (no (unknown) (unknown) tabs (units (unkno wn) date) unknown) (unknown) (no (unknown) (unknown) take TWO 150 mg (units (unknown) date) tablets of unknown) nirmatrelvir with ONE 100 mg tablet of ritonavir (unknown) (no (unknown) (unknown) tenderness or (units ( unknown) date) exquisite tenderness unknown) with exam. (unknown) (no (unknown) (unknown) thoracic spine.? (units (unknown) date) Surgical clips seen unknown) in the right upper quadrant. (unknown) (no (unknown) (unknown) treatments: (units (un known) date) Tylenol/Motrin as unknown) needed for pain/fever. Prescribed Paxlovid for (unknown) (no (unknown) (unknown) trimethoprim [From (units (unknown) date) Septra] Allergy unknown) Verified 01/18/22 15:14 (unknown) (no (unknown) (unknown) twice daily for 5 (units (unknown) date) days unknown) (unknown) (no (unknown) (unknown) unremarkable.? Old (units (unknown) date) healed fractures are unknown) seen in the posterior right upper ribs. (unknown) (no (unknown) (unknown) up with PCP as (units (unknown) date) directed. Return to unknown) clinic/ER instructions discussed for new, (unknown) (no (unknown) (unknown) vaccinated x3, (units (unknown) date) presents to the unknown) emergency department complaining of 4 days of (unknown) (no (unknown) (unknown) venlafaxine 50 MG (units (unknown) date) tablet unknown) (unknown) (no (unknown) (unknown) venlafaxine 50 mg (units (unknown) date) tablet 50 mg PO ##0 unknown) 11/29/12 (unknown) (no (unknown) (unknown) wheezing, stridor, (units (unknown) date) or abnormal breath unknown) sounds. Diminished breath sounds in her (unknown) (no (unknown) (unknown) x2)-ritonavir 100 (units (unknown) date) mg tablet,dose #30 unknown) ea (unknown) (no (unknown) (unknown) you out of the (units (unknown) date) hospital and getting unknown) better sooner, take ibuprofen and Tylenol (unknown) (no (unknown) (unknown) you to follow-up (units (unknown) date) with a primary care unknown) provider as able. (unknown) (no (unknown) (unknown) your scheduled. (units (unknown) date) unknown) Result panel 6 (unknown) (no date) (unknown) (unknown) (no value) (units (un known) unknown) (unknown) (no date) (unknown) (unknown) Light growth (units ( unknown) - Mixed unknown) [facility] Result panel 7 (unknown) (no date) (unknown) (unknown) (no value) (units (un known) unknown) (unknown) (no date) (unknown) (unknown) Light growth (units ( unknown) - Mixed unknown) [facility] Result panel 8 (unknown) (no (unknown) (unknown) (no value) (units (unk nown) date) unknown) (unknown) (no (unknown) (unknown) <Electronically (units (unknown) date) signed by Opal Craven unknown) HEALTH COMMISSIONER Crew> (unknown) (no (unknown) (unknown) <Electronically (units (unknown) date) signed by Darrell unknown) MD Malinda> (unknown) (no (unknown) (unknown) (Clarinex) #20 tabs (unit s (unknown) date) unknown) (unknown) (no (unknown) (unknown) (Lidoderm) (units (unk nown) date) unknown) (unknown) (no (unknown) (unknown) (Synthroid) (units (un known) date) unknown) (unknown) (no (unknown) (unknown) *If you do not have (unit s (unknown) date) a primary care unknown) provider please contact [phone] to (unknown) (no (unknown) (unknown) *Please continue to (unit s (unknown) date) take your regular unknown) medications as directed. (unknown) (no (unknown) (unknown) *Please follow up (units (unknown) date) with your primary unknown) care provider in 2-3 days, call for an (unknown) (no (unknown) (unknown) *Return to (units (unk nown) date) Emergency Department unknown) if you should have any new, worsening, or (unknown) (no (unknown) (unknown) *What to do: (units (u nknown) date) unknown) (unknown) (no (unknown) (unknown) *You have been (units (unknown) date) diagnosed with unknown) COVID-19. I am sorry that you are ill, please use (unknown) (no (unknown) (unknown) [id number] (units (unkno wn) date) unknown) (unknown) (no (unknown) (unknown) 1 Q DAY Qty: 0 (units (unknown) date) unknown) (unknown) (no (unknown) (unknown) 1 patch TOP DAILY (units (unknown) date) Qty: 15 0RF unknown) (unknown) (no (unknown) (unknown) 10 mg PO Q6H PRN (units (unknown) date) (Reason: pain) Qty: unknown) 14 0RF (unknown) (no (unknown) (unknown) 01/18/22 15:26 (units (unknown) date) unknown) (unknown) (no (unknown) (unknown) 01/18/22 16:44 (units (unknown) date) unknown) (unknown) (no (unknown) (unknown) 01/18/22 17:23 (units (unknown) date) unknown) (unknown) (no (unknown) (unknown) 01/18/222011 (units ( unknown) date) unknown) (unknown) (no (unknown) (unknown) 01/18/22 (units (unkno wn) date) Range/Units unknown) (unknown) (no (unknown) (unknown) 01/18/22 (units (unkno wn) date) unknown) (unknown) (no (unknown) (unknown) 01/21/22 0846 (units ( unknown) date) unknown) (unknown) (no (unknown) (unknown) 15:13 (units (unkno wn) date) unknown) (unknown) (no (unknown) (unknown) 15:26 (units (unkno wn) date) unknown) (unknown) (no (unknown) (unknown) 40 mg PO QDAY Qty: (units (unknown) date) 0 unknown) (unknown) (no (unknown) (unknown) 5 mg PO BID PRN (units (unknown) date) (Reason: nasal unknown) congestion) Qty: 20 0RF (unknown) (no (unknown) (unknown) 5 mg PO Q4P Qty: 0 (units (unknown) date) unknown) (unknown) (no (unknown) (unknown) 50 mg PO Qty: 0 (units (unknown) date) unknown) (unknown) (no (unknown) (unknown) 500 mg PO TID PRN (units (unknown) date) (Reason: muscle unknown) aches) Qty: 14 0RF (unknown) (no (unknown) (unknown) 600 mg PO BID Qty: (units (unknown) date) 20 0RF unknown) (unknown) (no (unknown) (unknown) 80 1 Qty: 0 (units (un known) date) unknown) (unknown) (no (unknown) (unknown) ? (units (unkno wn) date) unknown) (unknown) (no (unknown) (unknown) Activity (units (unkno wn) date) Restrictions/Additio unknown) nal Instructions: (unknown) (no (unknown) (unknown) Age/Sex: 71 / F (units (unknown) date) unknown) (unknown) (no (unknown) (unknown) Allergies (units (unkn own) date) unknown) (unknown) (no (unknown) (unknown) Allergy/AdvReac (units (unknown) date) Type Severity unknown) Reaction Status Date / Time (unknown) (no (unknown) (unknown) Approved by: Agustin (unit s (unknown) date) Dedrick Mcclain on unknown) 01/18/2022 at 17:28 ? (unknown) (no (unknown) (unknown) Blood Pressure (units (unknown) date) 116/56 L 01/18/22 unknown) 15:13 (unknown) (no (unknown) (unknown) Blood Pressure (units (unknown) date) 116/56 L unknown) (unknown) (no (unknown) (unknown) Bones and chest (units (unknown) date) wall:? No suspicious unknown) bony abnormalities.? Soft tissues appear (unknown) (no (unknown) (unknown) CDC guidelines for (units (unknown) date) quarantine, mask unknown) wearing, physical distancing, and infection (unknown) (no (unknown) (unknown) COMPARISON:? [facility], [facility], XR unknown) CHEST 2V, 11/03/2020, 10:56. (unknown) (no (unknown) (unknown) COVID (+) on day (units (unknown) date) [4] of symptoms unknown) without hypoxia, respiratory distress, (unknown) (no (unknown) (unknown) COVID infection due (unit s (unknown) date) to her unknown) comorbidities, she has a history of taking (unknown) (no (unknown) (unknown) COVID-19 (units (unkno wn) date) unknown) (unknown) (no (unknown) (unknown) COVID19 -Nasal (units (unknown) date) RAPID/Pre-Proc Stat unknown) (unknown) (no (unknown) (unknown) Cardiovascular: (units (unknown) date) regular rate and unknown) rhythm, no peripheral edema, warm extremities (unknown) (no (unknown) (unknown) Chest [XR chest 2V] (unit s (unknown) date) Stat unknown) (unknown) (no (unknown) (unknown) Chest x-ray: (units (u nknown) date) unknown) (unknown) (no (unknown) (unknown) Chief Complaint: (units (unknown) date) Upper Respiratory unknown) Symptoms (unknown) (no (unknown) (unknown) Clinical (units (unkno wn) date) Impression: unknown) (unknown) (no (unknown) (unknown) Course (units (unkno wn) date) unknown) (unknown) (no (unknown) (unknown) : 1950 (units (unknown) date) Acct:[id number] unknown) (unknown) (no (unknown) (unknown) Date of Service: (units (unknown) date) 01/18/22 unknown) (unknown) (no (unknown) (unknown) Departure (units (unkn own) date) unknown) (unknown) (no (unknown) (unknown) Dictated by: Agustin (unit s (unknown) date) Dedrick Mcclain on unknown) 01/18/2022 at 17:25 ? ? (unknown) (no (unknown) (unknown) Discharge Plan (units (unknown) date) unknown) (unknown) (no (unknown) (unknown) Drug] (units (unkno wn) date) unknown) (unknown) (no (unknown) (unknown) ED Orders (units (unkn own) date) unknown) (unknown) (no (unknown) (unknown) ER Physician: (units ( unknown) date) Opal Lee unknown) (unknown) (no (unknown) (unknown) Emergency Report (units (unknown) date) unknown) (unknown) (no (unknown) (unknown) Exam Narrative: (units (unknown) date) unknown) (unknown) (no (unknown) (unknown) Exam (units (unkno wn) date) unknown) (unknown) (no (unknown) (unknown) FINDINGS:? (units (unk nown) date) unknown) (unknown) (no (unknown) (unknown) Fibromyalgia (units (u nknown) date) unknown) (unknown) (no (unknown) (unknown) GI: abdomen soft, (units (unknown) date) nontender to unknown) palpation, nondistended, without masses, rebound (unknown) (no (unknown) (unknown) General (units (unkno wn) date) unknown) (unknown) (no (unknown) (unknown) General: (units (unkno wn) date) cooperative, unknown) comfortable, in no acute distress, well groomed (unknown) (no (unknown) (unknown) Glucosamine Sulfate (unit s (unknown) date) (GLUCOSAMINE) ##0 unknown) 11/29/12 (unknown) (no (unknown) (unknown) Glucosamine Sulfate (unit s (unknown) date) (GLUCOSAMINE) unknown) (unknown) (no (unknown) (unknown) HEENT: symmetrical (units (unknown) date) facial expressions, unknown) moist mucous membranes (unknown) (no (unknown) (unknown) HPI - URI/Sore (units (unknown) date) Throat unknown) (unknown) (no (unknown) (unknown) HPI Narrative: (units (unknown) date) unknown) (unknown) (no (unknown) (unknown) HPI (units (unkno wn) date) unknown) (unknown) (no (unknown) (unknown) History of Present (units (unknown) date) Illness unknown) (unknown) (no (unknown) (unknown) Home Medications (units (unknown) date) unknown) (unknown) (no (unknown) (unknown) Hypertension (units (u nknown) date) unknown) (unknown) (no (unknown) (unknown) Hypothyroidism (units (unknown) date) unknown) (unknown) (no (unknown) (unknown) I have sent (units (un known) date) medications to your unknown) pharmacy, they may not cover the things (unknown) (no (unknown) (unknown) IMPRESSION:? No (units (unknown) date) acute unknown) cardiopulmonary abnormality. (unknown) (no (unknown) (unknown) INDICATIONS:? (units ( unknown) date) covid+, diminished unknown) RLL (unknown) (no (unknown) (unknown) Imaging Data (units (u nknown) date) unknown) (unknown) (no (unknown) (unknown) Initial Vital Signs (unit s (unknown) date) unknown) (unknown) (no (unknown) (unknown) Initial Vital (units ( unknown) date) Signs: unknown) (unknown) (no (unknown) (unknown) Instructions: (units ( unknown) date) COVID-19 unknown) (unknown) (no (unknown) (unknown) [facility] (units (unknown) date) [address] [place] [address] unknown) [place] [address] (unknown) (no (unknown) (unknown) Lab Data (units (unkno wn) date) unknown) (unknown) (no (unknown) (unknown) Lab Results (units (un known) date) unknown) (unknown) (no (unknown) (unknown) Labs: (units (unkno wn) date) unknown) (unknown) (no (unknown) (unknown) Lungs and pleura:? (units (unknown) date) Lungs are mildly unknown) hyperexpanded and clear.? No pleural (unknown) (no (unknown) (unknown) Darrell Cottrell MD (unit s (unknown) date) [Primary Care unknown) Provider] (unknown) (no (unknown) (unknown) MDM - URI/Sore (units (unknown) date) Throat unknown) (unknown) (no (unknown) (unknown) MDM Narrative (units ( unknown) date) unknown) (unknown) (no (unknown) (unknown) MSK: moves all (units (unknown) date) extremities, unknown) neurovascularly intact, no weakness, normal tone (unknown) (no (unknown) (unknown) Mediastinum:? (units ( unknown) date) Stable unknown) cardiomediastinal contours with enlargement of the cardiac (unknown) (no (unknown) (unknown) Medical History (units (unknown) date) (Reviewed 01/18/22 @ unknown) 17:04 by Opal Lee [facility]) (unknown) (no (unknown) (unknown) Medical decision (units (unknown) date) making narrative: unknown) (unknown) (no (unknown) (unknown) Medication (units (unk nown) date) Instructions unknown) Recorded Confirmed (unknown) (no (unknown) (unknown) Medication (units (unk nown) date) Instructions unknown) Recorded (unknown) (no (unknown) (unknown) Mode of arrival: (units (unknown) date) Ambulatory unknown) (unknown) (no (unknown) (unknown) Narrative (units (unkn own) date) unknown) (unknown) (no (unknown) (unknown) Narrative: (units (unk nown) date) unknown) (unknown) (no (unknown) (unknown) Neuro: normal (units ( unknown) date) speech and unknown) cognition, A+O x3, ambulatory, clear speech (unknown) (no (unknown) (unknown) New (units (unkno wn) date) unknown) (unknown) (no (unknown) (unknown) No Action (units (unkn own) date) unknown) (unknown) (no (unknown) (unknown) No pertinent past (units (unknown) date) surgical history unknown) (unknown) (no (unknown) (unknown) Ordered: (units (unkno wn) date) unknown) (unknown) (no (unknown) (unknown) Orders (units (unkno wn) date) unknown) (unknown) (no (unknown) (unknown) Oxygen Delivery (units (unknown) date) Method 01/18/22 unknown) 15:13 (unknown) (no (unknown) (unknown) Oxygen Delivery (units (unknown) date) Method Room Air unknown) (unknown) (no (unknown) (unknown) PROCEDURE:? XR (units (unknown) date) CHEST 2V unknown) (unknown) (no (unknown) (unknown) Patient (units (o wn) date) Disposition: Home unknown) (unknown) (no (unknown) (unknown) Patient History (units (unknown) date) unknown) (unknown) (no (unknown) (unknown) Patient: (units (o wn) date) Elidia Rock MR#: unknown) M00 (unknown) (no (unknown) (unknown) Paxlovid (EUA) 300 (units (unknown) date) mg (150 mg x 2)-100 unknown) mg tablets,dose pack (unknown) (no (unknown) (unknown) Point of Care (units ( unknown) date) Testing unknown) (unknown) (no (unknown) (unknown) Prescriptions: (units (unknown) date) unknown) (unknown) (no (unknown) (unknown) Previous Rx's (units ( unknown) date) unknown) (unknown) (no (unknown) (unknown) Psych: mental (units ( unknown) date) status is grossly unknown) normal, congruent mood, normal affect, pleasant (unknown) (no (unknown) (unknown) Pulse Oximetry 93 (units (unknown) date) 01/18/22 15:13 unknown) (unknown) (no (unknown) (unknown) Pulse Oximetry 93 (units (unknown) date) unknown) (unknown) (no (unknown) (unknown) Pulse Rate 59 L (units (unknown) date) 01/18/22 15:13 unknown) (unknown) (no (unknown) (unknown) Pulse Rate 59 L (units (unknown) date) unknown) (unknown) (no (unknown) (unknown) Qty: 0 (units (unkno wn) date) unknown) (unknown) (no (unknown) (unknown) Radiologist's (units ( unknown) date) Impression: unknown) (unknown) (no (unknown) (unknown) Rapid Strep A (units ( unknown) date) Negative unknown) (unknown) (no (unknown) (unknown) Referrals: (units (unk nown) date) unknown) (unknown) (no (unknown) (unknown) Related Data (units (u nknown) date) unknown) (unknown) (no (unknown) (unknown) Respiratory Rate 16 (unit s (unknown) date) 01/18/22 15:13 unknown) (unknown) (no (unknown) (unknown) Respiratory Rate 16 (unit s (unknown) date) unknown) (unknown) (no (unknown) (unknown) Respiratory: normal (unit s (unknown) date) effort, able to unknown) speak in complete sentences, without (unknown) (no (unknown) (unknown) Restrictive lung (units (unknown) date) disease unknown) (unknown) (no (unknown) (unknown) Review of Systems (units (unknown) date) unknown) (unknown) (no (unknown) (unknown) Review of systems (units (unknown) date) is negative for unknown) acute abnormalities unless otherwise noted in (unknown) (no (unknown) (unknown) Reviewed vitals (units (unknown) date) signs and nursing unknown) notes. (unknown) (no (unknown) (unknown) Rx Instructions: (units (unknown) date) unknown) (unknown) (no (unknown) (unknown) SARS-CoV-2 (PCR) (units (unknown) date) Positive H unknown) (Negative) (unknown) (no (unknown) (unknown) See Rx Instructions (unit s (unknown) date) .ROUTE .COMPLEX Qty: unknown) 30 0RF (unknown) (no (unknown) (unknown) Signed By: (units (unk nown) date) unknown) (unknown) (no (unknown) (unknown) Skin: brisk (units (un known) date) capillary refill, unknown) without pallor or erythema (unknown) (no (unknown) (unknown) Smoking Status: (units (unknown) date) Former smoker unknown) (unknown) (no (unknown) (unknown) Social History (units (unknown) date) (Reviewed 01/18/22 @ unknown) 17:04 by Opal Lee [facility]) (unknown) (no (unknown) (unknown) Source: patient (units (unknown) date) unknown) (unknown) (no (unknown) (unknown) Stated Complaint: (units (unknown) date) fever, flu like unknown) symptoms (unknown) (no (unknown) (unknown) Stay hydrated, use (units (unknown) date) ibuprofen for the unknown) muscle aches or other pain medication that (unknown) (no (unknown) (unknown) Substance Use Type: (unit s (unknown) date) marijuana unknown) (unknown) (no (unknown) (unknown) Surgical History (units (unknown) date) (Reviewed 01/18/22 @ unknown) 17:04 by Opal Lee [facility]) (unknown) (no (unknown) (unknown) Surgical changes (units (unknown) date) and devices:? Stable unknown) vertebral plasty changes are noted in the (unknown) (no (unknown) (unknown) TECHNIQUE:? 2 views (unit s (unknown) date) of the chest were unknown) acquired.? (unknown) (no (unknown) (unknown) Temperature 99.3 F (units (unknown) date) 01/18/22 15:13 unknown) (unknown) (no (unknown) (unknown) Temperature 99.3 F (units (unknown) date) unknown) (unknown) (no (unknown) (unknown) This is a (units (unkn own) date) 71-year-old female unknown) with history of fibromyalgia who is COVID (unknown) (no (unknown) (unknown) Throat Culture Stat (unit s (unknown) date) unknown) (unknown) (no (unknown) (unknown) Time Seen by (units (u nknown) date) Provider: 01/18/22 unknown) 16:36 (unknown) (no (unknown) (unknown) Visit Report Forms: (unit s (unknown) date) Patient Portal/API unknown) (unknown) (no (unknown) (unknown) Vital Signs - 8 hr (units (unknown) date) unknown) (unknown) (no (unknown) (unknown) Vital Signs (units (un known) date) unknown) (unknown) (no (unknown) (unknown) Vital signs: (units (u nknown) date) unknown) (unknown) (no (unknown) (unknown) Zyrtec at night to (units (unknown) date) help manage your unknown) congestion, Mucinex as needed for (unknown) (no (unknown) (unknown) [ ] New medication (units (unknown) date) written as a paper unknown) prescription (unknown) (no (unknown) (unknown) [ ] No new (units (unk nown) date) medications given unknown) (unknown) (no (unknown) (unknown) [From ] (units ( unknown) date) unknown) (unknown) (no (unknown) (unknown) [x ] New medication (unit s (unknown) date) prescriptions sent unknown) to your pharmacy: [ [place] ([place]) (no (unknown) (unknown) adhesive tape (units ( unknown) date) AdvReac Verified unknown) 01/18/22 15:14 (unknown) (no (unknown) (unknown) alcohol intake (units (unknown) date) frequency: 0-2 unknown) drinks per day (unknown) (no (unknown) (unknown) and cooperative (units (unknown) date) unknown) (unknown) (no (unknown) (unknown) antihistamines for (units (unknown) date) symptomatic relief. unknown) Maintain adequate fluid intake. Follow (unknown) (no (unknown) (unknown) appointment. Let (units (unknown) date) them know you were unknown) seen in the Emergency Department and that we (unknown) (no (unknown) (unknown) as needed for your (units (unknown) date) symptoms along with unknown) your other medications which can be (unknown) (no (unknown) (unknown) asked that you be (units (unknown) date) seen for follow-up. unknown) We will electronically transmit a record (unknown) (no (unknown) (unknown) back to the (units (unk nown) date) emergency department unknown) if you have worsening of your symptoms, it does (unknown) (no (unknown) (unknown) breath sounds. (units (unknown) date) unknown) (unknown) (no (unknown) (unknown) can not take it (units (unknown) date) with this medication unknown) and she understands. I encouraged her to (unknown) (no (unknown) (unknown) capsule,delayed (units (unknown) date) release (Nexium) unknown) (unknown) (no (unknown) (unknown) chest pain, or (units (unknown) date) other complication. unknown) OTC decongestant medications and/or (unknown) (no (unknown) (unknown) chills, shortness (units (unknown) date) of breath, cough, unknown) sore throat, muscle aches, congestion. She (unknown) (no (unknown) (unknown) come back to the (units (unknown) date) hospital if she has unknown) any severe shortness of breath, worsening, (unknown) (no (unknown) (unknown) concerning (units (unk nown) date) symptoms, such as unknown) [fever greater than 101F, chills, worsening pain, (unknown) (no (unknown) (unknown) dehydration, or (units (unknown) date) focal exam to unknown) suggest secondary bacterial infection. Discussed (unknown) (no (unknown) (unknown) denies any nausea, (units (unknown) date) vomiting, diarrhea. unknown) She lives in [place]. (unknown) (no (unknown) (unknown) denies any (units (unk nown) date) wheezing, chest unknown) pain, weakness, dysuria, altered mentation. She has (unknown) (no (unknown) (unknown) desloratadine 5 mg (units (unknown) date) tablet 5 mg PO BID unknown) PRN nasal congestion 01/18/22 (unknown) (no (unknown) (unknown) desloratadine (units ( unknown) date) [Clarinex] 5 mg unknown) tablet (unknown) (no (unknown) (unknown) effusions or (units (u nknown) date) unknown) (unknown) (no (unknown) (unknown) esomeprazole (units (u nknown) date) magnesium 40 mg 40 unknown) mg PO QDAY ##0 11/29/12 (unknown) (no (unknown) (unknown) esomeprazole (units (u nknown) date) magnesium [Nexium] unknown) 40 MG capsule,delayed release(DR/EC) (unknown) (no (unknown) (unknown) establish care with (unit s (unknown) date) one of the [facility] unknown) [facility] primary care providers. (unknown) (no (unknown) (unknown) extended release 12 (unit s (unknown) date) hr (Mucinex) unknown) (unknown) (no (unknown) (unknown) fluoxetine 40 mg (units (unknown) date) capsule (Prozac) 80 unknown) 1 ##0 11/29/12 (unknown) (no (unknown) (unknown) fluoxetine [Prozac] (unit s (unknown) date) 40 MG capsule unknown) (unknown) (no (unknown) (unknown) guaifenesin 600 mg (units (unknown) date) tablet, 600 mg PO unknown) BID #20 tabs 01/18/22 (unknown) (no (unknown) (unknown) guaifenesin (units (un known) date) [Mucinex] 600 mg unknown) tablet extended release 12hr (unknown) (no (unknown) (unknown) helpful, any (units (u nknown) date) allergy medications unknown) that you have at home should suffice. Come (unknown) (no (unknown) (unknown) ketorolac 10 mg (units (unknown) date) tablet 10 mg PO Q6H unknown) PRN pain #14 tabs 06/07/21 (unknown) (no (unknown) (unknown) ketorolac 10 mg (units (unknown) date) tablet unknown) (unknown) (no (unknown) (unknown) leave on most (units ( unknown) date) painful area for 12 unknown) hrs (unknown) (no (unknown) (unknown) levothyroxine 125 (units (unknown) date) mcg tablet ##0 unknown) 11/29/12 (unknown) (no (unknown) (unknown) levothyroxine (units ( unknown) date) [Synthroid] 125 MCG unknown) tablet (unknown) (no (unknown) (unknown) lidocaine 5 % (units ( unknown) date) topical patch 1 unknown) patch topical DAILY #15 ea 06/07/21 (unknown) (no (unknown) (unknown) lidocaine (units (unkn own) date) [Lidoderm] 5 % unknown) adhesive patch,medicated (unknown) (no (unknown) (unknown) lower (units (unkno wn) date) unknown) (unknown) (no (unknown) (unknown) medication morning (units (unknown) date) and night for the unknown) next 5 days. Please follow-up with your (unknown) (no (unknown) (unknown) meloxicam 7.5 mg (units (unknown) date) tablet (Mobic) ##0 unknown) 11/29/12 (unknown) (no (unknown) (unknown) meloxicam [Mobic] (units (unknown) date) 7.5 MG tablet unknown) (unknown) (no (unknown) (unknown) methocarbamol 500 (units (unknown) date) mg tablet 500 mg PO unknown) TID PRN muscle aches #14 01/18/22 (unknown) (no (unknown) (unknown) methocarbamol 500 (units (unknown) date) mg tablet unknown) (unknown) (no (unknown) (unknown) nirmatrelvir 300 mg (unit s (unknown) date) (150 mg See Rx unknown) Instructions PO .COMPLEX 01/18/22 (unknown) (no (unknown) (unknown) not appear that you (unit s (unknown) date) have any pneumonia unknown) on your chest x-ray today. I encourage (unknown) (no (unknown) (unknown) not been taking any (units (unknown) date) medications for her unknown) symptoms, states that she only takes her (unknown) (no (unknown) (unknown) not improving, or (units (unknown) date) worsening symptoms. unknown) All questions answered. (unknown) (no (unknown) (unknown) of today's note if (units (unknown) date) your PCP is in our unknown) system (unknown) (no (unknown) (unknown) [id number], (units (unknown) date) hopefully they will, unknown) if not, slat pickler the Paxlovid to help keep (unknown) (no (unknown) (unknown) oxycodone 5 mg (units (unknown) date) tablet (Roxicodone) unknown) 5 mg PO Q4P ##0 11/29/12 (unknown) (no (unknown) (unknown) oxycodone (units (unkn own) date) [Roxicodone] 5 MG unknown) tablet (unknown) (no (unknown) (unknown) pack(EUA) (units (unkn own) date) (Paxlovid) unknown) (unknown) (no (unknown) (unknown) persistent vomiting (unit s (unknown) date) or other bothersome unknown) symptoms]. (unknown) (no (unknown) (unknown) pneumothorax.? (units (unknown) date) unknown) (unknown) (no (unknown) (unknown) pregabalin 100 mg (units (unknown) date) capsule (Lyrica) 1 Q unknown) DAY ##0 11/29/12 (unknown) (no (unknown) (unknown) pregabalin [Lyrica] (unit s (unknown) date) 100 MG capsule unknown) (unknown) (no (unknown) (unknown) prevent you from (units (unknown) date) needing admission to unknown) the hospital from severe COVID illness. (unknown) (no (unknown) (unknown) prevention measures (unit s (unknown) date) such as frequent unknown) handwashing. Discussed supportive (unknown) (no (unknown) (unknown) primary care (units (u nknown) date) provider for any unknown) worsening of your symptoms. This will hopefully (unknown) (no (unknown) (unknown) productive cough, (units (unknown) date) Tylenol and unknown) ibuprofen as needed for fever, please take this (unknown) (no (unknown) (unknown) regularly scheduled (unit s (unknown) date) medications. Her unknown) primary care provider is at [facility] she (unknown) (no (unknown) (unknown) right lower lobe, (units (unknown) date) tachypnea, without unknown) crackles, wheezing, or other abnormal (unknown) (no (unknown) (unknown) rosuvastatin 20 mg (units (unknown) date) tablet (Crestor) ##0 unknown) 11/29/12 (unknown) (no (unknown) (unknown) rosuvastatin (units (u nknown) date) [Crestor] 20 MG unknown) tablet (unknown) (no (unknown) (unknown) rosuvastatin for (units (unknown) date) hyperlipidemia but unknown) states that she is not, I told her that she (unknown) (no (unknown) (unknown) silhouette. (units (un known) date) unknown) (unknown) (no (unknown) (unknown) substance use type: (unit s (unknown) date) does not use unknown) (unknown) (no (unknown) (unknown) sulfamethoxazole (units (unknown) date) Allergy Verified unknown) 01/18/22 15:14 (unknown) (no (unknown) (unknown) tabs (units (unkno wn) date) unknown) (unknown) (no (unknown) (unknown) take TWO 150 mg (units (unknown) date) tablets of unknown) nirmatrelvir with ONE 100 mg tablet of ritonavir (unknown) (no (unknown) (unknown) tenderness or (units ( unknown) date) exquisite tenderness unknown) with exam. (unknown) (no (unknown) (unknown) thoracic spine.? (units (unknown) date) Surgical clips seen unknown) in the right upper quadrant. (unknown) (no (unknown) (unknown) treatments: (units (un known) date) Tylenol/Motrin as unknown) needed for pain/fever. Prescribed Paxlovid for (unknown) (no (unknown) (unknown) trimethoprim [From (units (unknown) date) Septra] Allergy unknown) Verified 01/18/22 15:14 (unknown) (no (unknown) (unknown) twice daily for 5 (units (unknown) date) days unknown) (unknown) (no (unknown) (unknown) unremarkable.? Old (units (unknown) date) healed fractures are unknown) seen in the posterior right upper ribs. (unknown) (no (unknown) (unknown) up with PCP as (units (unknown) date) directed. Return to unknown) clinic/ER instructions discussed for new, (unknown) (no (unknown) (unknown) vaccinated x3, (units (unknown) date) presents to the unknown) emergency department complaining of 4 days of (unknown) (no (unknown) (unknown) venlafaxine 50 MG (units (unknown) date) tablet unknown) (unknown) (no (unknown) (unknown) venlafaxine 50 mg (units (unknown) date) tablet 50 mg PO ##0 unknown) 11/29/12 (unknown) (no (unknown) (unknown) wheezing, stridor, (units (unknown) date) or abnormal breath unknown) sounds. Diminished breath sounds in her (unknown) (no (unknown) (unknown) x2)-ritonavir 100 (units (unknown) date) mg tablet,dose #30 unknown) ea (unknown) (no (unknown) (unknown) you out of the (units (unknown) date) hospital and getting unknown) better sooner, take ibuprofen and Tylenol (unknown) (no (unknown) (unknown) you to follow-up (units (unknown) date) with a primary care unknown) provider as able. (unknown) (no (unknown) (unknown) your scheduled. (units (unknown) date) unknown) Social History No information. Vital Signs No information.
[2022-03-10] MEDS ORDERED: predniSONE 20 MG TABLET PO STA (12:26)
--- NOTE | 2022-03-10 12:34 | XRAY Report ---
PROCEDURE: Chest 1 View X-Ray INDICATIONS: dyspnea TECHNIQUE: One view of the chest was acquired. COMPARISON: 02/23/2014 FINDINGS: Surgical changes and devices: Probable vertebroplasty changes in the midthoracic spine. Lungs and pleura: Diffuse interstitial thickening bilaterally. Obscuration of left hemidiaphragm. Po ssible small left effusion. No pneumothorax. Mediastinum: Mild cardiomegaly. Mild central vascular prominence. Normal aortic contour. Bones and chest wall: Chronic, healed right rib fractures. Decreased mineralization. Soft tissues ar e normal. IMPRESSION: 1. Diffuse interstitial thickening, probably edema or interstitial pneumonitis. 2. Cardiomegaly, new compared to the prior study. Reviewed by: Hillary Patricia MD on 03/10/2022 12:33 PM PST Approved by: Hillary Patricia MD on 03/10/2022 12:33 PM PST Station ID: [id number]
[2022-03-10 12:55] LABS: B. PARAPERTUSSIS- RESP PCR PAN NOT DETECTED; B. PERTUSSIS- RESP PCR PANEL NOT DETECTED; C. PNEUMONIAE- RESP PCR PANEL NOT DETECTED; CORONAVIRUS 229E-RESP PCR NOT DETECTED; CORONAVIRUS HKU1-RESP PCR NOT DETECTED; CORONAVIRUS NL63-RESP PCR NOT DETECTED; CORONAVIRUS OC43-RESP PCR NOT DETECTED; HUMAN METAPNEUMOVIRUS NOT DETECTED; INFLUENZA A- RESP PCR PANEL NOT DETECTED; INFLUENZA B - RESP PCR PANEL NOT DETECTED; M. PNEUMONIAE- RESP PCR PANEL NOT DETECTED; PARAINFLUENZA VIRUS 1 NOT DETECTED; PARAINFLUENZA VIRUS 2 NOT DETECTED; PARAINFLUENZA VIRUS 3 NOT DETECTED; PARAINFLUENZA VIRUS 4 NOT DETECTED; RHINOVIRUS/ENTEROVIRUS NOT DETECTED; RSV- RESP PCR PANEL NOT DETECTED; SARS-CoV-2 -RESP PCR PANEL NOT DETECTED
[2022-03-10] MEDS ORDERED: IPRATROPIUM/ALBUTEROL 3 ML NEB INH STA (14:26)
[2022-03-10] MEDS ORDERED: ASPIRIN CHEW 81 MG TABLET PO STA (14:48)
[2022-03-10 15:16] LABS: ALBUMIN 3.7 g/dL (3.2-5.5); BILIRUBIN,DIRECT 0.1 mg/dL (0.1-0.5); BILIRUBIN,TOTAL 0.7 mg/dL (0.2-1.0); TOTAL PROTEIN 6.9 g/dL (6.7-8.2)
[2022-03-10] MEDS ORDERED: MORPHINE 2 MG/ML CARPUJECT IVP STA (17:11)
[2022-03-10] MEDS ORDERED: oxyCODONE 5 MG TABLET PO STA (17:19)
[2022-03-10] MEDS ORDERED: ONDANSETRON 4 MG/2 ML VIAL IVP PRN (18:01)
[2022-03-10] MEDS ORDERED: ACETAMINOPHEN 500 MG TABLET PO PRN (18:01)
[2022-03-10] MEDS: METOPROLOL TARTRATE 25 MG TABLET PO SCH (20:12)
[2022-03-10] MEDS ORDERED: ENOXAPARIN 60 MG/0.6 ML SYRINGE SUBQ SCH ×2 (21:00)
[2022-03-10] MEDS ORDERED: ENOXAPARIN 100 MG/ML SYRINGE SUBQ SCH (21:00)
[2022-03-11 05:18] LABS: BASOPHILS % (AUTO) 0.2 %; HCT - HEMATOCRIT 41.6 % (37.0-47.0); HGB - HEMOGLOBIN 13.5 g/dL (12.0-16.0); LYMPHOCYTES # (AUTO) 1.7 10^3/uL (1.5-3.5); LYMPHOCYTES % (AUTO) 14.1 %; MEAN CORPUSCULAR HEMOGLOBIN 28.5 pg (27.0-31.0); MEAN CORPUSCULAR HGB CONC 32.5 g/dL (32.0-36.0); MEAN CORPUSCULAR VOLUME 87.8 fL (81.0-99.0); MEAN PLATELET VOLUME 10.9 fL (7.9-10.8); MONOCYTES % (AUTO) 8.1 %; NEUTROPHILS # (AUTO) 9.1 10^3/uL (1.5-6.6); NEUTROPHILS % (AUTO) 77.3 %; PLT - PLATELET COUNT 331 10^3/uL (130-450); RED BLOOD COUNT 4.74 10^6/uL (4.20-5.40); RED CELL DISTRIBUTION WIDTH 13.4 % (12.0-15.0); WHITE BLOOD COUNT 11.8 x10^3/uL (4.8-10.8)
[2022-03-11 05:26] LABS: CALCIUM 9.2 mg/dL (8.5-10.3); CREATININE 0.8 mg/dL (0.4-1.0); POTASSIUM 4.6 mmol/L (3.5-5.0)
[2022-03-11] MEDS: PANTOPRAZOLE 40 MG TABLET PO SCH (06:46)
[2022-03-11] MEDS: ASPIRIN CHEW 81 MG TABLET PO SCH (10:02)
[2022-03-11] MEDS: ENOXAPARIN 60 MG/0.6 ML SYRINGE SUBQ SCH ×2 (10:02→21:01)
[2022-03-11] MEDS: METOPROLOL TARTRATE 25 MG TABLET PO SCH ×2 (10:02→21:00)
--- NOTE | 2022-03-11 18:23 | ED Physician Documentation ---
ED Addendum - Addendum Addendum: 03/11/22 18:20 I spoke with the patient. She denied any chest pain or dyspnea here. She does relate having had several weeks of exertional dyspnea without chest pain and then the chest pain episode on presentation. Elevated troponins were concerning for acute NE versus unstable angina. She understands the need for further heart testing with the concern of myocardial injury potentially leading to heart failure or dysrhythmias and also the potential of having an impending larger NE if this was a mostly stenotic main vessel. It does require further assessment to quantify her risk stratification. Continue the current medications and diet. She states she typically is a small eater and would usually just have cottage cheese for lunch and some oatmeal for breakfast. Assessment: Chest pain episode with elevated troponin Plan: Continue with the present medication and diet. Light activity with bathroom etc. Still working on having the patient on the transfer list for cardiology.
[2022-03-12] MEDS: PANTOPRAZOLE 40 MG TABLET PO SCH (06:38)
[2022-03-12] MEDS: ENOXAPARIN 60 MG/0.6 ML SYRINGE SUBQ SCH ×2 (10:50→20:54)
[2022-03-12] MEDS: ASPIRIN CHEW 81 MG TABLET PO SCH (10:50)
[2022-03-12] MEDS: METOPROLOL TARTRATE 25 MG TABLET PO SCH ×2 (10:51→20:55)
[2022-03-13] MEDS ORDERED: diazePAM 5 MG TABLET PO STA (00:27)
[2022-03-13] MEDS: PANTOPRAZOLE 40 MG TABLET PO SCH (06:41)
[2022-03-13] MEDS ORDERED: LEVOTHYROXINE 75 MCG TABLET PO SCH (08:00)
[2022-03-13] MEDS ORDERED: fentaNYL 25 MCG PATCH TOP SCH (08:00)
[2022-03-13] MEDS ORDERED: fentaNYL 50 MCG PATCH TOP SCH (08:00)
[2022-03-13] MEDS ORDERED: FLUoxetine 10 MG CAPSULE PO SCH (09:00)
[2022-03-13] MEDS ORDERED: lamoTRIgine 25 MG TABLET PO SCH (09:00)
[2022-03-13] MEDS: ASPIRIN CHEW 81 MG TABLET PO SCH (09:26)
[2022-03-13] MEDS: ENOXAPARIN 60 MG/0.6 ML SYRINGE SUBQ SCH (09:26)
[2022-03-13] MEDS: METOPROLOL TARTRATE 25 MG TABLET PO SCH (09:27)
--- NOTE | 2022-03-13 13:05 | ED Physician Documentation ---
ED Addendum - Addendum Addendum: 03/13/22 12:58 This patient was signed out to me in the morning at change of shift, pending echocardiogram and possible transfer for non-ST elevation MN. The patient had been here for nearly 3 days at the time of signout to me.She had an echocardiogram ordered from the weekend which was supposed to be done today but after some hours of waiting, We called the department and found out that there is no botanical technical officer on today or for the foreseeable future. The patient had been very anxious to leave the emergency department all morning, and I went and spoke with her after reviewing her labs. The patient stated she had not had any symptoms whatsoever for the last couple of days, and that she had A cardiology referral to Dr. Cottrell had put in place for her couple of months ago. She states that she has just been needing to call and actually make the appointment. Patient stated she would be willing to call immediately as well as follow-up with Dr. Cottrell, which she thinks she can do in the next few days. I have discussed with the patient that she needs to be taking her aspirin regularly, as directed, as she is prescribed aspirin but has not actually been taking it recently. The patient is already on metoprolol and should continue this. I feel that at this point, with her troponins consistently trending down after peaking couple of days ago, there is no further utility to keeping her in the emergency department, since we do not have cardiology at our hospital, the patient is not a priority on the [facility] wait list and no possibility of a bed anywhere in [facility] is in sight. I have advised the patient to call the cardiology office and Dr. Cottrell's office this very afternoon to make an appointment. The patient understands that should she develop any chest pain or shortness of breath that is not responsive to the nitroglycerin or does not resolve on its own within a couple of minutes, she should return to the emergency department. The patient has expressed understanding and willingness. Final impression: 1. Non-ST elevation [place] 2. Angina Disposition: Home in improved and stable condition.
[2022-03-13 13:18] VITALS: BP 138/49
[2022-03-13] MEDS ORDERED: diazePAM 5 MG TABLET PO SCH (21:00)
== END 2022-03-13 13:21 | disposition home or self-care (01) ==
LOC: EDUNIT# → ED 10:55
DX: I21.4 Non-ST elevation (NSTEMI) myocardial infarction (principal); T39.016A Underdosing of aspirin, initial encounter; I11.9 Hypertensive heart disease without heart failure; Z20.822 Contact with and (suspected) exposure to COVID-19
CPT/HCPCS: 36415; 71045; 80048; 80076; 83880; 84484; 85025; 87633; 93005; 94640; 94664; 96372; 96374; 96375; 96376; 99283; 99285; A9270; J1650; J2060; J7512

== ENCOUNTER 2022-04-07 18:11 | Outpatient (CLI) | payer MEDICARE, BC | END 2022-04-07 18:12 | disposition critical access hospital (66) | LOC: EMS 18:11 | DX: R06.09 Other forms of dyspnea (principal); R06.01 Orthopnea; F41.9 Anxiety disorder, unspecified | CPT/HCPCS: A0425; A0429 ==

== ENCOUNTER 2022-04-07 18:31 | Emergency (ER) | payer MEDICARE, BC ==
[2022-04-07 19:02] LABS: BASOPHILS # (AUTO) 0.1 10^3/uL (0.0-0.1); BASOPHILS % (AUTO) 0.6 %; EOSINOPHILS # (AUTO) 0.2 10^3/uL (0.0-0.7); EOSINOPHILS % (AUTO) 1.7 %; HCT - HEMATOCRIT 39.5 % (37.0-47.0); HGB - HEMOGLOBIN 12.3 g/dL (12.0-16.0); LYMPHOCYTES # (AUTO) 1.8 10^3/uL (1.5-3.5); LYMPHOCYTES % (AUTO) 16.8 %; MEAN CORPUSCULAR HEMOGLOBIN 27.8 pg (27.0-31.0); MEAN CORPUSCULAR HGB CONC 31.1 g/dL (32.0-36.0); MEAN CORPUSCULAR VOLUME 89.4 fL (81.0-99.0); MEAN PLATELET VOLUME 10.5 fL (7.9-10.8); MONOCYTES # (AUTO) 0.5 10^3/uL (0.0-1.0); MONOCYTES % (AUTO) 5.1 %; NEUTROPHILS # (AUTO) 7.8 10^3/uL (1.5-6.6); PLT - PLATELET COUNT 445 10^3/uL (130-450); RED BLOOD COUNT 4.42 10^6/uL (4.20-5.40); RED CELL DISTRIBUTION WIDTH 13.7 % (12.0-15.0); WHITE BLOOD COUNT 10.4 x10^3/uL (4.8-10.8)
[2022-04-07 19:21] LABS: ALBUMIN 3.2 g/dL (3.2-5.5); ALBUMIN/GLOBULIN RATIO 1.1 (1.0-2.2); BILIRUBIN,TOTAL 1.1 mg/dL (0.2-1.0); CALCIUM 8.8 mg/dL (8.5-10.3); MAGNESIUM 1.9 mg/dL (1.7-2.8); POTASSIUM 3.8 mmol/L (3.5-5.0); TOTAL PROTEIN 6.2 g/dL (6.7-8.2)
--- OUTSIDE RECORDS SUMMARY | 2022-04-07 19:31 | EXTERNAL MEDICAL SUMMARY RPT | Continuity of Care Document ---
:1950 Author Organization [facility] Address [address] [place] [address] Phone Care Team Providers Name Role Phone Unavailable Unavailable Unavailable Darrell Cottrell Unavailable Unavailable Allergies and Intolerances date description facility type (no date) adhesive tape [facility] (unknown) (no date) sulfamethoxazole [facility] (unknown) (no date) trimethoprim [facility] (unknown) Encounters No information. Functional Status No information. Immunizations No information. Medications date description facility 2022-03-25 00:00 Oxycodone-Acetaminophen [facility] 2022-03-28 00:00 Oxycodone [facility] 2022-03-25 00:00 Diazepam [facility] 2022-03-23 00:00 Fentanyl [facility] 2022-01-18 00:00 Methocarbamol [facility] 2022-03-23 00:00 Methocarbamol [facility] 2022-03-25 00:00 Lamotrigine [facility] 2022-01-17 00:00 Nirmatrelvir-Ritonavir [facility] 2022-03-28 00:00 Aspirin [facility] 2022-01-18 00:00 Desloratadine [facility] 2022-03-25 00:00 Cholecalciferol (Vitamin D3) [facility] 2022-03-25 00:00 Metoprolol Tartrate [facility] 2022-03-25 00:00 Levothyroxine [facility] Problems date description facility 2022-01-18 00:00 COVID-19 [facility] 2022-03-23 00:00 Closed fracture of hip [facility] 2022-03-24 06:30 Fracture of unspecified part of neck of [facility] femur, initial 2022-03-24 09:59 Fracture of unspecified part of neck of [facility] femur, initial 2022-03-24 11:24 Fracture of unspecified part of neck of [facility] femur, initial 2022-03-24 11:26 Fracture of unspecified part of neck of [facility] femur, initial 2022-03-25 00:00 Status post hip surgery [facility] 2022-03-25 12:09 Fracture of unspecified part of neck of [facility] femur, initial 2022-03-25 12:09 Other specified postprocedural states [facility] 2022-03-27 12:46 Fracture of unspecified part of neck of [facility] femur, initial 2022-03-27 12:46 Other specified postprocedural [facility] 2022-03-28 08:06 Fracture of unspecified part of neck of [facility] femur, initial 2022-03-28 08:06 Other specified postprocedural states [facility] 2022-03-28 08:15 Fracture of unspecified part of neck of [facility] femur, initial 2022-03-28 08:15 Other specified postprocedural [facility] 2022-03-28 08:33 Fracture of unspecified part of neck of [facility] femur, initial 2022-03-28 08:33 Other specified postprocedural [facility] 2022-03-28 10:04 Fracture of unspecified part of neck of [facility] femur, initial 2022-03-28 10:04 Other specified postprocedural states [facility] 2022-03-28 14:25 Fracture of unspecified part of neck of [facility] femur, initial 2022-03-28 14:25 Other specified postprocedural [facility] 2022-03-28 14:58 Fracture of unspecified part of neck of [facility] femur, initial 2022-03-28 14:58 [facility]22-03-23 00:00 replacement of left hip joint, femoral s [facility] with ceramic synthetic substitute, maryam cramer, open approach 2022-03-23 00:00 CT angio chest [facility] 2022-03-24 00:00 XR pelvis, 1-2 views [facility] 2022-03-23 00:00 Hip Hemiarthroplasty (Left) [facility] 2022-03-23 00:00 X-ray of chest, single view [facility] 2022-01-18 00:00 X-ray of chest, two views [facility] 2022-03-23 00:00 Unilateral x-ray of hip, two views, wit h x-ray [facility] of pelvis Results/Labs test date author facility value unit interpret ation Result panel 1 (unknown) (no date) (unknown[facility]) Result panel 2 (unknown) (no date) (unknown[facility]) Result panel 3 (unknown) (no date) (unknown[facility]) Result panel 4 (unknown) (no date) (unknown[facility]) Result panel 5 (unknown) (no date) (unknown[facility]) Result panel 6 (unknown) (no date) (unknown[facility]) Result panel 7 (unknown) (no date) (unknown[facility]) Result panel 8 (unknown) (no date) (unknown[facility]) Result panel 9 (unknown) (no date) (unknown[facility]) Result panel 10 (unknown) (no date) (unknown[facility]) Result panel 11 (unknown) (no date) (unknown[facility]) Result panel 12 (unknown) (no date) (unknown[facility]) Result panel 13 (unknown) (no date) (unknown[facility]) Result panel 14 (unknown) (no date) (unknown[facility]) Result panel 15 (unknown) (no date) (unknown[facility]) Result panel 16 (unknown) (no date) (unknown[facility]) Result panel 17 (unknown) (no date) (unknown[facility]) Result panel 18 (unknown) (no date) (unknown[facility]) Result panel 19 (unknown) (no date) (unknown[facility]) Result panel 20 (unknown) (no date) (unknown[facility]) Result panel 21 (unknown) (no date) (unknown[facility]) Result panel 22 (unknown) (no date) (unknown[facility]) Result panel 23 (unknown) (no date) (unknown[facility]) Result panel 24 (unknown) (no date) (unknown) [facility]) Result panel 25 (unknown) (no date) (unknown[facility]) Result panel 26 (unknown) (no date) (unknown[facility]) Result panel 27 (unknown) (no date) (unknown[facility]) Result panel 28 (unknown) (no date) (unknown[facility]) Result panel 29 (unknown) (no date) (unknown[facility]) Result panel 30 (unknown) (no date) (unknown) [facility]) Result panel 31 (unknown) (no date) (unknown) [facility]) Result panel 32 (unknown) (no date) (unknown) [facility]) Result panel 33 (unknown) (no date) (unknown) [facility]) Result panel 34 (unknown) (no date) (unknown) [facility]) Result panel 35 (unknown) (no date) (unknown) [facility]) Result panel 36 (unknown) (no date) (unknown) [facility]) Result panel 37 (unknown) (no date) (unknown) [facility]) Result panel 38 (unknown) (no date) (unknown) [facility]) Result panel 39 (unknown) (no date) (unknown) [facility]) Result panel 40 (unknown) (no date) (unknown) [facility]) Result panel 41 (unknown) (no date) (unknown) [facility]) Result panel 42 (unknown) (no date) (unknown) [facility]) Result panel 43 (unknown) (no date) (unknown) [facility]) Result panel 44 (unknown) (no date) (unknown) [facility]) Result panel 45 (unknown) (no date) (unknown) [facility]) Result panel 46 (unknown) (no date) (unknown) [facility]) Result panel 47 (unknown) (no date) (unknown) [facility]) Result panel 48 (unknown) (no date) (unknown) [facility]) Result panel 49 (unknown) (no date) (unknown) [facility]) Result panel 50 (unknown) (no date) (unknown) [facility]) Result panel 51 (unknown) (no date) (unknown) [facility]) Result panel 52 (unknown) (no date) (unknown) [facility]) Result panel 53 (unknown) (no date) (unknown) [facility]) Result panel 54 (unknown) (no date) (unknown) [facility]) Result panel 55 (unknown) (no date) (unknown) [facility]) Result panel 56 (unknown) (no date) (unknown) [facility]) Result panel 57 (unknown) (no date) (unknown) [facility]) Result panel 58 (unknown) (no date) (unknown) [facility]) Result panel 59 (unknown) (no date) (unknown) [facility]) Result panel 60 (unknown) (no date) (unknown) [facility]) Result panel 61 (unknown) (no date) (unknown) [facility]) Result panel 62 (unknown) (no date) (unknown) [facility]) Result panel 63 (unknown) (no date) (unknown) [facility]) Result panel 64 (unknown) (no date) (unknown) [facility]) Result panel 65 (unknown) (no date) (unknown) [facility]) Result panel 66 (unknown) (no date) (unknown) [facility]) Result panel 67 (unknown) (no date) (unknown) [facility]) Result panel 68 (unknown) (no date) (unknown) [facility]) Result panel 69 (unknown) (no date) (unknown) [facility]) Result panel 70 (unknown) (no date) (unknown) [facility]) Result panel 71 (unknown) (no date) (unknown) [facility]) Result panel 72 (unknown) (no date) (unknown) [facility]) Result panel 73 (unknown) (no date) (unknown) [facility]) Result panel 74 (unknown) (no date) (unknown) [facility]) Result panel 75 (unknown) (no date) (unknown) [facility]) Result panel 76 (unknown) (no date) (unknown) [facility]) Result panel 77 (unknown) (no date) (unknown) [facility]) Result panel 78 (unknown) (no date) (unknown) [facility]) Result panel 79 (unknown) (no date) (unknown) [facility]) Result panel 80 (unknown) (no date) (unknown) [facility]) Result panel 81 (unknown) (no date) (unknown) [facility]) Result panel 82 (unknown) (no date) (unknown) [facility]) Result panel 83 (unknown) (no date) (unknown) [facility]) Result panel 84 (unknown) (no date) (unknown) [facility]) Result panel 85 (unknown) (no date) (unknown) [facility]) Result panel 86 (unknown) (no date) (unknown) [facility]) Result panel 87 (unknown) (no date) (unknown) [facility]) Result panel 88 (unknown) (no date) (unknown) [facility]) Result panel 89 (unknown) (no date) (unknown) [facility]) Result panel 90 (unknown) (no date) (unknown) [facility]) Result panel 91 (unknown) (no date) (unknown) [facility]) Result panel 92 (unknown) (no date) (unknown) [facility]) Result panel 93 (unknown) (no date) (unknown) [facility]) Result panel 94 (unknown) (no date) (unknown) [facility]) Result panel 95 (unknown) (no date) (unknown) [facility]) Result panel 96 (unknown) (no date) (unknown) [facility]) Result panel 97 (unknown) (no date) (unknown) [facility]) Result panel 98 (unknown) (no date) (unknown) [facility]) Result panel 99 (unknown) (no date) (unknown) [facility]) Result panel 100 (unknown) (no date) (unknown) [facility]) Result panel 101 (unknown) (no date) (unknown) [facility]) Result panel 102 (unknown) (no date) (unknown) [facility]) Result panel 103 (unknown) (no date) (unknown) [facility]) Result panel 104 (unknown) (no date) (unknown) [facility]) Result panel 105 (unknown) (no date) (unknown) [facility]) Result panel 106 (unknown) (no date) (unknown) [facility]) Result panel 107 (unknown) (no date) (unknown) [facility]) Result panel 108 (unknown) (no date) (unknown) [facility]) Result panel 109 (unknown) (no date) (unknown) [facility]) Result panel 110 (unknown) (no date) (unknown) [facility]) Result panel 111 (unknown) (no date) (unknown) [facility]) Result panel 112 (unknown) (no date) (unknown) [facility]) Result panel 113 (unknown) (no date) (unknown) [facility]) Result panel 114 (unknown) (no date) (unknown) [facility]) Result panel 115 (unknown) (no date) (unknown) [facility]) Result panel 116 (unknown) (no date) (unknown) [facility]) Result panel 117 (unknown) (no date) (unknown) [facility]) Result panel 118 (unknown) (no date) (unknown) [facility]) Result panel 119 (unknown) (no date) (unknown) [facility]) Result panel 120 (unknown) (no date) (unknown) [facility]) Result panel 121 (unknown) (no date) (unknown) [facility]) Result panel 122 (unknown) (no date) (unknown) [facility]) Result panel 123 (unknown) (no date) (unknown) [facility]) Result panel 124 (unknown) (no date) (unknown) [facility]) Result panel 125 (unknown) (no date) (unknown) [facility]) Result panel 126 (unknown) (no date) (unknown) [facility]) Result panel 127 (unknown) (no date) (unknown) [facility]) Result panel 128 (unknown) (no date) (unknown) [facility]) Result panel 129 (unknown) (no date) (unknown) [facility]) Result panel 130 (unknown) (no date) (unknown) [facility]) Result panel 131 (unknown) (no date) (unknown) (unknown) POSITIVE (units (unkn own) unknown) (unknown) (no date) (unknown) (unknown) POSITIVE (units (unkn own) unknown) Result panel 132 (unknown) (no (unknown) (unknown) (no value) (units (unk nown) date) unknown) (unknown) (no (unknown) (unknown) [id number] (units (unkno wn) date) unknown) (unknown) (no (unknown) (unknown) 01/18/22 (units (unkno wn) date) unknown) (unknown) (no (unknown) (unknown) [address] [place] [address] (units (unknown) date) unknown) (unknown) (no (unknown) (unknown) Accession Number: (units (unknown) date) [id number] unknown) (unknown) (no (unknown) (unknown) Age/Sex: 71 / F (units (unknown) date) Date of Service: unknown) (unknown) (no (unknown) (unknown) [place] [address] (unit s (unknown) date) unknown) (unknown) (no (unknown) (unknown) Approved by: Agustin (unit s (unknown) date) Dedrick Mcclain on unknown) 01/18/2022 at 17:28 (unknown) (no (unknown) (unknown) Bones and chest (units (unknown) date) wall: No suspicious unknown) bony abnormalities. Soft tissues appear (unknown) (no (unknown) (unknown) COMPARISON: [place] (units (unknown) date) [facility], CR, XR unknown) CHEST 2V, 11/03/2020, 10:56. (unknown) (no (unknown) (unknown) : 1950 (units (unknown) date) Acct:[id number] unknown) (unknown) (no (unknown) (unknown) Dictated by: Agustni (unit s (unknown) date) Dedrick Mcclain on unknown) 01/18/2022 at 17:25 (unknown) (no (unknown) (unknown) FINDINGS: (units (unkn own) date) unknown) (unknown) (no (unknown) (unknown) IMPRESSION: No (units (unknown) date) acute unknown) cardiopulmonary abnormality. (unknown) (no (unknown) (unknown) INDICATIONS: (units (u nknown) date) covid+, diminished unknown) RLL (unknown) (no (unknown) (unknown) [facility] (units (unknown) date) unknown) (unknown) (no (unknown) [...] the posterior right upper ribs. Result panel 133 (unknown) (no (unknown) (unknown) (no value) (units (unk nown) date) unknown) (unknown) (no (unknown) (unknown) (Lidoderm) (units (unk nown) date) unknown) (unknown) (no (unknown) (unknown) (Synthroid) (units (un known) date) unknown) (unknown) (no (unknown) (unknown) [id number] (units (unkno wn) date) unknown) (unknown) (no [...] (unknown) (unknown) : 1950 (units (unknown) date) Acct:[id number] unknown) (unknown) (no (unknown) (unknown) Date of Service: (units (unknown) date) 01/18/22 unknown) (unknown) (no (unknown) (unknown) Departure (units (unkn own) date) unknown) (unknown) (no (unknown) (unknown) Discharge Plan (units (unknown) date) unknown) (unknown) (no (unknown) (unknown) ED Orders (units (unkn own) date) unknown) (unknown) (no (unknown) (unknown) ER Physician: (units ( unknown) date) Opal Lee unknown) 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 (unknown) (no (unknown) (unknown) Emergency Report (units [...] Signs: unknown) (unknown) (no (unknown) (unknown) [facility] (units (unknown) date) [address] unknown) [place] [address] (unknown) (no (unknown) (unknown) Lab Data (units [...] Patient: (units (unkno wn) date) Elidia Rock unknown) MR#: [id number] (unknown) (no (unknown) (unknown) [...] (unknown) Social History (units (unknown) date) (Reviewed 12/30/20 unknown) @ 01:53 by Al Olsen DO) [...] mg PO ##0 unknown) 11/29/12 Result panel 134 (unknown) (no (unknown) (unknown) (no value) (units (unk nown) date) unknown) (unknown) (no (unknown) (unknown) (Clarinex) #20 (units (unknown) date) tabs unknown) (unknown) (no (unknown) (unknown) (Lidoderm) (units (unk nown) date) unknown) (unknown) (no (unknown) (unknown) (Synthroid) (units (un known) date) unknown) (unknown) (no (unknown) (unknown) *If you do not (units (unknown) date) have a primary care unknown) provider please contact [phone] to (unknown) (no (unknown) (unknown) *Please continue [...] ill, please use (unknown) (no (unknown) (unknown) [id number] (units (unkno wn) date) unknown) (unknown) (no [...] (unknown) (unknown) : 1950 (units (unknown) date) Acct:[id number] unknown) (unknown) (no (unknown) (unknown) Date of [...] (units ( unknown) date) Opal Lee unknown) SEISMOGRAPH CHIEF (unknown) (no (unknown) (unknown) Emergency Report (units [...] COVID-19 unknown) (unknown) (no (unknown) (unknown) [facility] (units (unknown) date) [address] [place] [address] unknown) [place] [address] (unknown) (no (unknown) (unknown) Lab Data (units [...] date) (Reviewed 01/18/22 unknown) @ 17:04 by Opal Lee [facility]) (unknown) (no (unknown) (unknown) Medical decision (units [...] Patient: (units (unkno wn) date) Elidia Rock unknown) MR#: [id number] (unknown) (no (unknown) (unknown) [...] date) vomiting, diarrhea. unknown) She lives in [place]. (unknown) (no (unknown) (unknown) denies any (units [...] date) with one of the unknown) [facility] primary care providers. (unknown) (no (unknown) [...] scheduled. (units (unknown) date) unknown) Result panel 135 (unknown) (no (unknown) (unknown) (no value) (units (unk nown) date) unknown) (unknown) (no (unknown) (unknown) <Electronically (units (unknown) date) signed by Opal Craven unknown) SEISMOGRAPH CHIEF Crew> (unknown) (no (unknown) (unknown) (Clarinex) #20 tabs (unit s (unknown) date) unknown) (unknown) (no (unknown) (unknown) (Lidoderm) (units (unk nown) date) unknown) (unknown) (no (unknown) (unknown) (Synthroid) (units (un known) date) unknown) (unknown) (no (unknown) (unknown) *If you do not have (unit s (unknown) date) a primary care unknown) provider please contact [phone] to (unknown) (no (unknown) (unknown) *Please continue [...] ill, please use (unknown) (no (unknown) (unknown) [id number] (units (unkno wn) date) unknown) (unknown) (no [...] and infection (unknown) (no (unknown) (unknown) COMPARISON:? [place] (unit s (unknown) date) [facility], CR, XR [...] (unknown) (unknown) : 1950 (units (unknown) date) Acct:[id number] unknown) (unknown) (no (unknown) (unknown) Date of [...] COVID-19 unknown) (unknown) (no (unknown) (unknown) [facility] (units (unknown) date) [address] [place] [address] unknown) [place] [address] (unknown) (no (unknown) (unknown) Lab Data (units [...] (unkno wn) date) Elidia Rock MR#: unknown) [id number] [...] (Reviewed 01/18/22 @ unknown) 17:04 by PUJA aRmirez) (unknown) (no (unknown) (unknown) Source: patient (units [...] (unknown) date) one of the [facility] unknown) [facility] primary care providers. (unknown) (no (unknown) [...] our unknown) system (unknown) (no (unknown) (unknown) [id number], (units (unknown) date) hopefully they will, unknown) if not, bean picker the Paxlovid to help keep (unknown) (no [...] scheduled. (units (unknown) date) unknown) Result panel 136 (unknown) (no date) (unknown) (unknown) (no value) (units (un known) unknown) (unknown) (no date) (unknown) (unknown) Light growth (units ( unknown) - Mixed unknown) resident luis miguel Result panel 137 (unknown) (no date) (unknown) (unknown) (no value) (units (un known) unknown) (unknown) (no date) (unknown) (unknown) Light growth (units ( unknown) - Mixed unknown) resident luis miguel Result panel 138 (unknown) (no (unknown) (unknown) (no value) (units (unk nown) date) unknown) (unknown) (no (unknown) (unknown) <Electronically (units (unknown) date) signed by Opal Craven unknown) PUJA Lee> (unknown) (no (unknown) (unknown) <Electronically (units (unknown) [...] a primary care unknown) provider please contact [phone] to (unknown) (no (unknown) (unknown) *Please continue [...] ill, please use (unknown) (no (unknown) (unknown) [id number] (units (unkno wn) date) unknown) (unknown) (no [...] (unknown) COMPARISON:[place] [facility]unit s (unknown[place] date[facility], , XR unknown) CHEST 2V, 11/03/2020, [...] (unknown) (unknown) : 1950 (units (unknown) date) Acct:[id number] unknown) (unknown) (no (unknown) (unknown) Date of [...] COVID-19 unknown) (unknown) (no (unknown) (unknown) [facility] (units (unknown) date) [address] unknown) [place] [address] (unknown) (no (unknown) (unknown) Lab Data (units [...] 01/18/22 @ unknown) 17:04 by Opal Lee [facility]) (unknown) (no (unknown) (unknown) Medical decision (units [...] (unkno wn) date) Elidia Rock MR#: unknown) M00 [...] date) vomiting, diarrhea. unknown) She lives in [place]. (unknown) (no (unknown) (unknown) denies any (units [...] our unknown) system (unknown) (no (unknown) (unknown) [id number], (units (unknown) date) hopefully they will, unknown) if not, bean picker the Paxlovid to help keep (unknown) (no [...] scheduled. (units (unknown) date) unknown) Result panel 139 (unknown) (no (unknown) (unknown) (no value) (units (unk nown) date) unknown) (unknown) (no (unknown) (unknown) [id number] (units (unkno wn) date) unknown) (unknown) (no (unknown) (unknown) 03/23/22 (units (unkno wn) date) unknown) (unknown) (no (unknown) (unknown) [address] [place] [address] (units (unknown) date) unknown) (unknown) (no (unknown) (unknown) Accession (units (unkn own) date) Number: unknown) [id number] (unknown) (no (unknown) (unknown) Age/Sex: 72 / F (units (unknown) date) Date of Service: unknown) (unknown) (no (unknown) (unknown) [place], [place] (units ( unknown) date) [id number] unknown) (unknown) (no (unknown) (unknown) Approved by: (units (u nknown) date) Kieran Mata M.D. on unknown) 03/23/2022 at 16:50 (unknown) (no (unknown) (unknown) Bilateral hip (units ( unknown) date) unknown) (unknown) (no (unknown) (unknown) Bones: Acute (units (u nknown) date) fracture through unknown) subcapital region of left femoral neck is seen (unknown) (no (unknown) (unknown) COMPARISON: (units (un known) date) [facility], unknown) CR, HIP 2V LEFT, 09/26/2007, 12:14. (unknown) (no (unknown) (unknown) : 1950 (units (unknown) date) Acct:[id number] unknown) (unknown) (no (unknown) (unknown) Dictated by: (units (u nknown) date) Kieran Mata M.D. on unknown) 03/23/2022 at 16:50 (unknown) (no (unknown) (unknown) FINDINGS: (units (unkn own) date) unknown) (unknown) (no (unknown) (unknown) IMPRESSION: (units (un known) date) Acute displaced unknown) left femoral neck fracture as above. (unknown) (no (unknown) (unknown) INDICATIONS: (units (u nknown) date) fall pain unknown) (unknown) (no (unknown) (unknown) [facility] (units (unknown) date) unknown) (unknown) (no (unknown) (unknown) Loc: ED (units (unkno wn) date) unknown) (unknown) (no (unknown) (unknown) Ordering (units (unkno wn) date) Provider: unknown) Liam Colón MD (unknown) (no (unknown) (unknown) PROCEDURE: XR (units ( unknown) date) HIP W PEL IF DONE unknown) LT 2V (unknown) (no (unknown) (unknown) Patient: (units (unkno wn) date) Elidia Rock unknown) MR#: [id number] (unknown) (no (unknown) (unknown) Procedure: XR (units ( unknown) date) hip w pel if done unknown) LT 2V (unknown) (no (unknown) (unknown) Signed (units (unkno wn) date) unknown) (unknown) (no (unknown) (unknown) Soft tissues: (units ( unknown) date) The visualized unknown) bowel gas pattern is normal. No suspicious soft (unknown) (no (unknown) (unknown) TECHNIQUE: AP (units ( unknown) date) pelvis with unknown) lateral view(s) of the left hip(s). (unknown) (no (unknown) (unknown) XRay Report (units (un known) date) unknown) (unknown) (no (unknown) (unknown) calcifications. (units (unknown) date) unknown) (unknown) (no (unknown) (unknown) femoral (units (unkno wn) date) unknown) (unknown) (no (unknown) (unknown) head.. Pelvic (units ( unknown) date) ring appears unknown) intact. No suspicious bony lesions. 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 No evidence of avascular necrosis of (unknown) (no (unknown) (unknown) superior (units (unkno wn) date) migration of left unknown) proximal femur in relation to femoral head. (unknown) (no (unknown) (unknown) tissue (units (unkno wn) date) unknown) (unknown) (no (unknown) (unknown) with (units (unkno wn) date) unknown) Result panel 140 (unknown) (no (unknown) (unknown) (no value) (units (unk nown) date) unknown) (unknown) (no (unknown) (unknown) (Clarinex) #20 (units (unknown) date) tabs unknown) (unknown) (no (unknown) (unknown) (Lidoderm) (units (unk nown) date) unknown) (unknown) (no (unknown) (unknown) (Synthroid) (units (un known) date) unknown) (unknown) (no (unknown) (unknown) [id number] (units (unkno wn) date) unknown) (unknown) (no (unknown) (unknown) 1 Q DAY Qty: 0 (units (unknown) date) unknown) (unknown) (no (unknown) (unknown) 1 patch TOP DAILY (units (unknown) date) Qty: 15 0RF unknown) (unknown) (no (unknown) (unknown) 10 mg PO Q6H PRN (units (unknown) date) (Reason: pain) Qty: unknown) 14 0RF (unknown) (no (unknown) (unknown) 03/23/22 16:04 (units (unknown) date) unknown) (unknown) (no (unknown) (unknown) 40 [...] known) date) unknown) (unknown) (no (unknown) (unknown) Able to extend the (units (unknown) date) left knee fully. unknown) (unknown) (no (unknown) (unknown) Age/Sex: 72 / F (units (unknown) date) unknown) (unknown) (no (unknown) (unknown) Allergies (units (unkn own) date) unknown) (unknown) (no (unknown) (unknown) Allergy/AdvReac (units (unknown) date) Type Severity unknown) Reaction Status Date / Time (unknown) (no (unknown) (unknown) BACK: No flank (units (unknown) date) tenderness. unknown) (unknown) (no (unknown) (unknown) Blood pressure and (units (unknown) date) O2 saturation noted unknown) by triage notes. Patient denies any (unknown) (no (unknown) (unknown) CARDIOVASCULAR: (units (unknown) date) Regular rate and unknown) rhythm without murmurs (unknown) (no (unknown) (unknown) CARDIOVASCULAR: (units (unknown) date) negative chest unknown) pain, palpitations (unknown) (no (unknown) (unknown) Complete Blood (units (unknown) date) Count AUTO DIFF unknown) Stat (unknown) (no (unknown) (unknown) Comprehensive (units ( unknown) date) Metabolic Panel unknown) Stat (unknown) (no (unknown) (unknown) Course Narrative: (units (unknown) date) unknown) (unknown) (no (unknown) (unknown) Course (units (unkno wn) date) unknown) (unknown) (no (unknown) (unknown) : 1950 (units (unknown) date) Acct:[id number] unknown) (unknown) (no (unknown) (unknown) Date of Service: (units (unknown) date) 03/23/22 unknown) (unknown) (no (unknown) (unknown) Decision to Admit (units (unknown) date) Date: 03/23/22 unknown) (unknown) (no (unknown) (unknown) Decision to Admit (units (unknown) date) time: 16:08 unknown) (unknown) (no (unknown) (unknown) Departure (units (unkn own) date) unknown) (unknown) (no (unknown) (unknown) Differential (units (u nknown) date) Diagnosis unknown) (unknown) (no (unknown) (unknown) Differential (units (u nknown) date) diagnosis: Likely unknown) other (Hip contusion hip fracture hip (unknown) (no (unknown) (unknown) Discharge Plan (units (unknown) date) unknown) (unknown) (no (unknown) (unknown) ED Orders (units (unkn own) date) unknown) (unknown) (no (unknown) (unknown) EKG-12 Lead Stat (units (unknown) date) unknown) (unknown) (no (unknown) (unknown) ENT: Mucous (units (un known) date) membranes moist. unknown) (unknown) (no (unknown) (unknown) ER Physician: (units ( unknown) date) Liam Colón MD unknown) (unknown) (no (unknown) (unknown) EXTREMITIES: (units (u nknown) date) Tenderness to the unknown) left hip. There is shortening slightly of the (unknown) (no (unknown) (unknown) EYES: Pupils equal (units (unknown) date) round No scleral unknown) icterus. (unknown) (no (unknown) (unknown) Emergency Report (units (unknown) date) unknown) (unknown) (no (unknown) (unknown) Ethanol (ETOH) (units (unknown) date) Stat unknown) (unknown) (no (unknown) (unknown) Exam Narrative: (units (unknown) date) unknown) (unknown) (no (unknown) (unknown) Exam (units (unkno wn) date) unknown) (unknown) (no (unknown) (unknown) Fibromyalgia (units (u nknown) date) unknown) (unknown) (no (unknown) (unknown) GASTROINTESTINAL: (units (unknown) date) Abdomen soft, unknown) non-tender (unknown) (no (unknown) (unknown) GASTROINTESTINAL: (units (unknown) date) negative nausea, unknown) vomiting, abdominal pain (unknown) (no (unknown) (unknown) GENERAL: in no (units (unknown) date) distress, not toxic unknown) not dyspneic (unknown) (no (unknown) (unknown) GENERAL: negative (units (unknown) date) chills, positive unknown) fatigue, malaise, negative fever, sweats. (unknown) (no (unknown) (unknown) : negative (units (u nknown) date) dysuria, frequency, unknown) hematuria (unknown) (no (unknown) (unknown) General (units (unkno wn) date) unknown) (unknown) (no (unknown) (unknown) Glucosamine (units (un known) date) Sulfate unknown) (GLUCOSAMINE) ##0 11/29/12 (unknown) (no (unknown) (unknown) Glucosamine (units (un known) date) Sulfate unknown) (GLUCOSAMINE) (unknown) (no (unknown) (unknown) HEAD: (units (unkno wn) date) Normocephalic. unknown) (unknown) (no (unknown) (unknown) HEENT: negative (units (unknown) date) sinus pain, ear unknown) pain, sore throat (unknown) (no (unknown) (unknown) HPI - Fall (units (unk nown) date) unknown) (unknown) (no (unknown) (unknown) HPI Narrative: (units (unknown) date) unknown) (unknown) (no (unknown) (unknown) History of Present (units (unknown) date) Illness unknown) (unknown) (no (unknown) (unknown) Home Medications (units (unknown) date) unknown) (unknown) (no (unknown) (unknown) Hypertension (units (u nknown) date) unknown) (unknown) (no (unknown) (unknown) Hypothyroidism (units (unknown) date) unknown) (unknown) (no (unknown) (unknown) [facility] (units (unknown) date) [address] [place] [address] unknown) [place] [address] (unknown) (no (unknown) (unknown) Darrell Cottrell, (units (unknown) date) [Primary Care unknown) Provider] (unknown) (no (unknown) (unknown) MDM - Fall (units (unk nown) date) unknown) (unknown) (no (unknown) (unknown) MUSCULOSKELETAL: (units (unknown) date) Positive muscle or unknown) bony pain (unknown) (no (unknown) (unknown) Medical History (units (unknown) date) (Reviewed 03/23/22 unknown) @ 16:07 by Liam Colón MD) (unknown) (no (unknown) (unknown) Medication (units (unk nown) date) Instructions unknown) Recorded Confirmed (unknown) (no (unknown) (unknown) Medication (units (unk nown) date) Instructions unknown) Recorded (unknown) (no (unknown) (unknown) NECK: Trachea (units ( unknown) date) midline. unknown) (unknown) (no (unknown) (unknown) NEURO: AOx4. (units (u nknown) date) unknown) (unknown) (no (unknown) (unknown) NEUROLOGIC: (units (un known) date) negative weakness, unknown) numbness (unknown) (no (unknown) (unknown) Narrative (units (unkn own) date) unknown) (unknown) (no (unknown) (unknown) Narrative: (units (unk nown) date) unknown) (unknown) (no (unknown) (unknown) No Action (units (unkn own) date) unknown) (unknown) (no (unknown) (unknown) No new issues (units ( unknown) date) during course of unknown) stay (unknown) (no (unknown) (unknown) No pertinent past (units (unknown) date) surgical history unknown) (unknown) (no (unknown) (unknown) Ordered: (units (unkno wn) date) unknown) (unknown) (no (unknown) (unknown) Orders (units (unkno wn) date) unknown) (unknown) (no (unknown) (unknown) PSYCH: Not (units (unk nown) date) anxious, is unknown) cooperative (unknown) (no (unknown) (unknown) Partial (units (unkno wn) date) Thromboplastin Time unknown) Stat (unknown) (no (unknown) (unknown) Patient History (units (unknown) date) unknown) (unknown) (no (unknown) (unknown) Patient: (units (unkno wn) date) Elidia Rock unknown) MR#: [id number] (unknown) (no (unknown) (unknown) Paxlovid (EUA) 300 (units (unknown) date) mg (150 mg x 2)-100 unknown) mg tablets,dose pack (unknown) (no (unknown) (unknown) Prescriptions: (units (unknown) date) unknown) (unknown) (no (unknown) (unknown) Previous Rx's (units ( unknown) date) unknown) (unknown) (no (unknown) (unknown) Prothrombin Time (units (unknown) date) INR Stat unknown) (unknown) (no (unknown) (unknown) Qty: 0 (units (unkno wn) date) unknown) (unknown) (no (unknown) (unknown) RESPIRATORY: Clear (units (unknown) date) to auscultation. unknown) Breath sounds equal bilaterally. No wheezes, (unknown) (no (unknown) (unknown) RESPIRATORY: (units (u nknown) date) negative dyspnea, unknown) cough (unknown) (no (unknown) (unknown) ROS Unobtainable: (units (unknown) date) All systems unknown) reviewed + are unremarkable except as noted in HPI (unknown) (no (unknown) (unknown) Referrals: (units (unk nown) date) unknown) (unknown) (no (unknown) (unknown) Related Data (units (u nknown) date) unknown) (unknown) (no (unknown) (unknown) Restrictive lung (units (unknown) date) disease unknown) (unknown) (no (unknown) (unknown) Review of Systems (units (unknown) date) unknown) (unknown) (no (unknown) (unknown) Rx Instructions: (units (unknown) date) unknown) (unknown) (no (unknown) (unknown) SKIN: Warm and dry (units (unknown) date) unknown) (unknown) (no (unknown) (unknown) SKIN: negative (units (unknown) date) rash, skin lesions unknown) (unknown) (no (unknown) (unknown) See Rx (units (unkno wn) date) Instructions .ROUTE unknown) .COMPLEX Qty: 30 0RF (unknown) (no (unknown) (unknown) Signed By: (units (unk nown) date) unknown) (unknown) (no (unknown) (unknown) Smoking Status: (units (unknown) date) Former smoker unknown) (unknown) (no (unknown) (unknown) Social History (units (unknown) date) (Reviewed 03/23/22 unknown) @ 16:07 by Liam Colón MD) (unknown) (no (unknown) (unknown) Sodium Chloride (units (unknown) date) (Normal Saline unknown) 0.9%) 1,000 mls @ 1,000 mls/hr IV BOLUS ONE (unknown) (no (unknown) (unknown) Stated Complaint: (units (unknown) date) hip pain unknown) (unknown) (no (unknown) (unknown) Stop: 03/23/22 (units (unknown) date) 17:02 unknown) (unknown) (no (unknown) (unknown) Substance Use (units ( unknown) date) Type: marijuana unknown) (unknown) (no (unknown) (unknown) Surgical History (units (unknown) date) (Reviewed 03/23/22 unknown) @ 16:07 by Liam Colón MD) (unknown) (no (unknown) (unknown) Time Seen by (units (u nknown) date) Provider: 03/23/22 unknown) 16:03 (unknown) (no (unknown) (unknown) Troponin + CK (units ( unknown) date) Cardiac Panel Stat unknown) (unknown) (no (unknown) (unknown) Urine Drug Screen, (units (unknown) date) Rapid Stat unknown) (unknown) (no (unknown) (unknown) XR hip w pel if (units (unknown) date) done LT 2V Stat unknown) (unknown) (no (unknown) (unknown) [From Septra] (units ( unknown) date) unknown) (unknown) (no (unknown) (unknown) adhesive tape (units ( unknown) date) AdvReac Verified unknown) 01/18/22 15:14 (unknown) (no (unknown) (unknown) alcohol intake (units (unknown) date) frequency: 0-2 unknown) drinks per day (unknown) (no (unknown) (unknown) and below (units (unkn own) date) unknown) (unknown) (no (unknown) (unknown) and knee. Very (units (unknown) date) painful with unknown) passive or active attempt of moving the left hip. (unknown) (no (unknown) (unknown) any other injury (units (unknown) date) or pain. She is not unknown) on any blood thinners. She did recently (unknown) (no (unknown) (unknown) capsule,delayed (units (unknown) date) release (Nexium) unknown) (unknown) (no (unknown) (unknown) desloratadine 5 mg (units (unknown) date) tablet 5 mg PO BID unknown) PRN nasal congestion 01/18/22 (unknown) (no (unknown) (unknown) desloratadine (units ( unknown) date) [Clarinex] 5 mg unknown) tablet (unknown) (no (unknown) (unknown) dislocation/dehydr (units (unknown) date) ation) unknown) (unknown) (no (unknown) (unknown) done. She was at a (units (unknown) date) hospital and unknown) [place]. Patient states she is not eaten or (unknown) (no (unknown) (unknown) drank very much (units (unknown) date) today. Has felt unknown) tired and weak though. Again denies any chest (unknown) (no (unknown) (unknown) dyspnea or chest (units (unknown) date) pain. Denies any unknown) dizziness. No black or bloody stools (unknown) (no (unknown) (unknown) esomeprazole (units (u nknown) date) magnesium 40 mg 40 unknown) mg PO QDAY ##0 11/29/12 (unknown) (no (unknown) (unknown) esomeprazole (units (u nknown) date) magnesium [Nexium] unknown) 40 MG capsule,delayed release(DR/EC) (unknown) (no (unknown) (unknown) extended release (units [...] 12 unknown) hrs (unknown) (no (unknown) (unknown) left leg and (units (u nknown) date) external rotation unknown) of the foot. Foot is warm soft and pink with (unknown) (no (unknown) (unknown) levothyroxine 125 (units [...] PO .COMPLEX 01/18/22 (unknown) (no (unknown) (unknown) oxycodone 5 mg (units (unknown) date) tablet (Roxicodone) unknown) 5 mg PO Q4P ##0 11/29/12 (unknown) (no (unknown) (unknown) oxycodone (units (unkn own) date) [Roxicodone] 5 MG unknown) tablet (unknown) (no (unknown) (unknown) pack(EUA) (units (unkn own) date) (Paxlovid) unknown) (unknown) (no (unknown) (unknown) pain or dyspnea or (units (unknown) date) palpitations. unknown) Patient placed in bed. Pants shoes socks (unknown) (no (unknown) (unknown) pregabalin 100 mg (units (unknown) date) capsule (Lyrica) 1 unknown) Q DAY ##0 11/29/12 (unknown) (no (unknown) (unknown) pregabalin (units (unk nown) date) [Lyrica] 100 MG unknown) capsule (unknown) (no (unknown) (unknown) rales, or rhonchi. (units (unknown) date) unknown) (unknown) (no (unknown) (unknown) recently. Patient (units (unknown) date) states she got unknown) tangled up with the [employer] walking her dog (unknown) (no (unknown) (unknown) removed and placed (units (unknown) date) in a gown. Left leg unknown) is slightly shortened and externally (unknown) (no (unknown) (unknown) rosuvastatin 20 mg (units (unknown) date) tablet (Crestor) unknown) ##0 11/29/12 (unknown) (no (unknown) (unknown) rosuvastatin (units (u nknown) date) [Crestor] 20 MG unknown) tablet (unknown) (no (unknown) (unknown) rotated. 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 No surgeries were (unknown) (no (unknown) (unknown) strong pedal pulse (units (unknown) date) with light touch unknown) intact to foot and toes. Nontender ankle (unknown) (no (unknown) (unknown) substance use (units [...] tablet of ritonavir (unknown) (no (unknown) (unknown) today and she fell (units (unknown) date) onto her left hip. unknown) On complains of left hip pain. Denies (unknown) (no (unknown) (unknown) trimethoprim [From (units (unknown) date) Septra] Allergy unknown) Verified 01/18/22 15:14 (unknown) (no (unknown) (unknown) twice daily for 5 (units (unknown) date) days unknown) (unknown) (no (unknown) (unknown) venlafaxine 50 MG (units (unknown) date) tablet unknown) (unknown) (no (unknown) (unknown) venlafaxine 50 mg (units (unknown) date) tablet 50 mg PO ##0 unknown) 11/29/12 (unknown) (no (unknown) (unknown) x2)-ritonavir 100 (units (unknown) date) mg tablet,dose #30 unknown) ea Result panel 141 (unknown) (no (unknown) (unknown) (no value) (units (unk nown) date) unknown) (unknown) (no (unknown) (unknown) (Clarinex) #20 (units (unknown) date) tabs unknown) (unknown) (no (unknown) (unknown) (Lidoderm) (units (unk nown) date) unknown) (unknown) (no (unknown) (unknown) (Synthroid) (units (un known) date) unknown) (unknown) (no (unknown) (unknown) [id number] (units (unkno wn) date) unknown) (unknown) (no (unknown) (unknown) 1 Q DAY Qty: 0 (units (unknown) date) unknown) (unknown) (no (unknown) (unknown) 1 patch TOP DAILY (units (unknown) date) Qty: 15 0RF unknown) (unknown) (no (unknown) (unknown) 10 mg PO Q6H PRN (units (unknown) date) (Reason: pain) Qty: unknown) 14 0RF (unknown) (no (unknown) (unknown) 03/23/22 16:04 (units (unknown) date) unknown) (unknown) (no (unknown) (unknown) 03/23/22 16:12 (units (unknown) date) unknown) (unknown) (no (unknown) (unknown) 40 [...] known) date) unknown) (unknown) (no (unknown) (unknown) Able to extend the (units (unknown) date) left knee fully. unknown) (unknown) (no (unknown) (unknown) Age/Sex: 72 / F (units (unknown) date) unknown) (unknown) (no (unknown) (unknown) Allergies (units (unkn own) date) unknown) (unknown) (no (unknown) (unknown) Allergy/AdvReac (units (unknown) date) Type Severity unknown) Reaction Status Date / Time (unknown) (no (unknown) (unknown) BACK: No flank (units (unknown) date) tenderness. unknown) (unknown) (no (unknown) (unknown) Blood pressure and (units (unknown) date) O2 saturation noted unknown) by triage notes. Patient denies any (unknown) (no (unknown) (unknown) CARDIOVASCULAR: (units (unknown) date) Regular rate and unknown) rhythm without murmurs (unknown) (no (unknown) (unknown) CARDIOVASCULAR: (units (unknown) date) negative chest unknown) pain, palpitations (unknown) (no (unknown) (unknown) Chief Complaint: (units (unknown) date) Trauma unknown) (unknown) (no (unknown) (unknown) Complete Blood (units (unknown) date) Count AUTO DIFF unknown) Stat (unknown) (no (unknown) (unknown) Comprehensive (units ( unknown) date) Metabolic Panel unknown) Stat (unknown) (no (unknown) (unknown) Course Narrative: (units (unknown) date) unknown) (unknown) (no (unknown) (unknown) Course (units (unkno wn) date) unknown) (unknown) (no (unknown) (unknown) : 1950 (units (unknown) date) Acct:[id number] unknown) (unknown) (no (unknown) (unknown) Date of Service: (units (unknown) date) 03/23/22 unknown) (unknown) (no (unknown) (unknown) Decision to Admit (units (unknown) date) Date: 03/23/22 unknown) (unknown) (no (unknown) (unknown) Decision to Admit (units (unknown) date) time: 16:08 unknown) (unknown) (no (unknown) (unknown) Departure (units (unkn own) date) unknown) (unknown) (no (unknown) (unknown) Differential (units (u nknown) date) Diagnosis unknown) (unknown) (no (unknown) (unknown) Differential (units (u nknown) date) diagnosis: Likely unknown) other (Hip contusion hip fracture hip (unknown) (no (unknown) (unknown) Discharge Plan (units (unknown) date) unknown) (unknown) (no (unknown) (unknown) ECG Data (units (unkno wn) date) unknown) (unknown) (no (unknown) (unknown) ED Orders (units (unkn own) date) unknown) (unknown) (no (unknown) (unknown) EKG-12 Lead Stat (units (unknown) date) unknown) (unknown) (no (unknown) (unknown) ENT: Mucous (units (un known) date) membranes moist. unknown) (unknown) (no (unknown) (unknown) ER Physician: (units ( unknown) date) Liam Colón MD unknown) (unknown) (no (unknown) (unknown) EXTREMITIES: (units (u nknown) date) Tenderness to the unknown) left hip. There is shortening slightly of the (unknown) (no (unknown) (unknown) EYES: Pupils equal (units (unknown) date) round No scleral unknown) icterus. (unknown) (no (unknown) (unknown) Emergency Report (units (unknown) date) unknown) (unknown) (no (unknown) (unknown) Ethanol (ETOH) (units (unknown) date) Stat unknown) (unknown) (no (unknown) (unknown) Exam Narrative: (units (unknown) date) unknown) (unknown) (no (unknown) (unknown) Exam (units (unkno wn) date) unknown) (unknown) (no (unknown) (unknown) Fibromyalgia (units (u nknown) date) unknown) (unknown) (no (unknown) (unknown) GASTROINTESTINAL: (units (unknown) date) Abdomen soft, unknown) non-tender (unknown) (no (unknown) (unknown) GASTROINTESTINAL: (units (unknown) date) negative nausea, unknown) vomiting, abdominal pain (unknown) (no (unknown) (unknown) GENERAL: in no (units (unknown) date) distress, not toxic unknown) not dyspneic (unknown) (no (unknown) (unknown) GENERAL: negative (units (unknown) date) chills, positive unknown) fatigue, malaise, negative fever, sweats. (unknown) (no (unknown) (unknown) : negative (units (u nknown) date) dysuria, frequency, unknown) hematuria (unknown) (no (unknown) (unknown) General (units (unkno wn) date) unknown) (unknown) (no (unknown) (unknown) Glucosamine (units (un known) date) Sulfate unknown) (GLUCOSAMINE) ##0 11/29/12 (unknown) (no (unknown) (unknown) Glucosamine (units (un known) date) Sulfate unknown) (GLUCOSAMINE) (unknown) (no (unknown) (unknown) HEAD: (units (unkno wn) date) Normocephalic. unknown) (unknown) (no (unknown) (unknown) HEENT: negative (units (unknown) date) sinus pain, ear unknown) pain, sore throat (unknown) (no (unknown) (unknown) HPI - Fall (units (unk nown) date) unknown) (unknown) (no (unknown) (unknown) HPI Narrative: (units (unknown) date) unknown) (unknown) (no (unknown) (unknown) History of Present (units (unknown) date) Illness unknown) (unknown) (no (unknown) (unknown) Home Medications (units (unknown) date) unknown) (unknown) (no (unknown) (unknown) Hypertension (units (u nknown) date) unknown) (unknown) (no (unknown) (unknown) Hypothyroidism (units (unknown) date) unknown) (unknown) (no (unknown) (unknown) Interpretation: (units (unknown) date) unknown) (unknown) (no (unknown) (unknown) [facility] (units (unknown) date) [address] [place] [address] unknown) [place] [address] (unknown) (no (unknown) (unknown) Lab Data (units (unkno wn) date) unknown) (unknown) (no (unknown) (unknown) Last Admin: (units (un known) date) 03/23/22 16:10 unknown) Dose: 1,000 mls/hr (unknown) (no (unknown) (unknown) Darrell Cottrell, (units (unknown) date) [Primary Care unknown) Provider] (unknown) (no (unknown) (unknown) MDM - Fall (units (unk nown) date) unknown) (unknown) (no (unknown) (unknown) MUSCULOSKELETAL: (units (unknown) date) Positive muscle or unknown) bony pain (unknown) (no (unknown) (unknown) Medical History (units (unknown) date) (Reviewed 03/23/22 unknown) @ 16:07 by Liam Colón MD) (unknown) (no (unknown) (unknown) Medication (units (unk nown) date) Instructions unknown) Recorded Confirmed (unknown) (no (unknown) (unknown) Medication (units (unk nown) date) Instructions unknown) Recorded (unknown) (no (unknown) (unknown) NECK: Trachea (units ( unknown) date) midline. unknown) (unknown) (no (unknown) (unknown) NEURO: AOx4. (units (u nknown) date) unknown) (unknown) (no (unknown) (unknown) NEUROLOGIC: (units (un known) date) negative weakness, unknown) numbness (unknown) (no (unknown) (unknown) Narrative (units (unkn own) date) unknown) (unknown) (no (unknown) (unknown) Narrative: (units (unk nown) date) unknown) (unknown) (no (unknown) (unknown) No Action (units (unkn own) date) unknown) (unknown) (no (unknown) (unknown) No new issues (units ( unknown) date) during course of unknown) stay (unknown) (no (unknown) (unknown) No pertinent past (units (unknown) date) surgical history unknown) (unknown) (no (unknown) (unknown) Ordered: (units (unkno wn) date) unknown) (unknown) (no (unknown) (unknown) Orders (units (unkno wn) date) unknown) (unknown) (no (unknown) (unknown) PSYCH: Not (units (unk nown) date) anxious, is unknown) cooperative (unknown) (no (unknown) (unknown) Partial (units (unkno wn) date) Thromboplastin Time unknown) Stat (unknown) (no (unknown) (unknown) Patient History (units (unknown) date) unknown) (unknown) (no (unknown) (unknown) Patient: (units (unkno wn) date) Elidia Rock unknown) MR#: [id number] (unknown) (no (unknown) (unknown) Paxlovid (EUA) 300 (units (unknown) date) mg (150 mg x 2)-100 unknown) mg tablets,dose pack (unknown) (no (unknown) (unknown) Prescriptions: (units (unknown) date) unknown) (unknown) (no (unknown) (unknown) Previous Rx's (units ( unknown) date) unknown) (unknown) (no (unknown) (unknown) Prothrombin Time (units (unknown) date) INR Stat unknown) (unknown) (no (unknown) (unknown) Qty: 0 (units (unkno wn) date) unknown) (unknown) (no (unknown) (unknown) RESPIRATORY: Clear (units (unknown) date) to auscultation. unknown) Breath sounds equal bilaterally. No wheezes, (unknown) (no (unknown) (unknown) RESPIRATORY: (units (u nknown) date) negative dyspnea, unknown) cough (unknown) (no (unknown) (unknown) ROS Unobtainable: (units (unknown) date) All systems unknown) reviewed + are unremarkable except as noted in HPI (unknown) (no (unknown) (unknown) Referrals: (units (unk nown) date) unknown) (unknown) (no (unknown) (unknown) Related Data (units (u nknown) date) unknown) (unknown) (no (unknown) (unknown) Restrictive lung (units (unknown) date) disease unknown) (unknown) (no (unknown) (unknown) Result diagrams: (units (unknown) date) unknown) (unknown) (no (unknown) (unknown) Review of Systems (units (unknown) date) unknown) (unknown) (no (unknown) (unknown) Rx Instructions: (units (unknown) date) unknown) (unknown) (no (unknown) (unknown) SKIN: Warm and dry (units (unknown) date) unknown) (unknown) (no (unknown) (unknown) SKIN: negative (units (unknown) date) rash, skin lesions unknown) (unknown) (no (unknown) (unknown) See Rx (units (unkno wn) date) Instructions .ROUTE unknown) .COMPLEX Qty: 30 0RF (unknown) (no (unknown) (unknown) Signed By: (units (unk nown) date) unknown) (unknown) (no (unknown) (unknown) Sinus rhythm rate (units (unknown) date) [address] elevation unknown) or depression (unknown) (no (unknown) (unknown) Smoking Status: (units (unknown) date) Former smoker unknown) (unknown) (no (unknown) (unknown) Social History (units (unknown) date) (Reviewed 03/23/22 unknown) @ 16:07 by Liam Colón MD) (unknown) (no (unknown) (unknown) Sodium Chloride (units (unknown) date) (Normal Saline unknown) 0.9%) 1,000 mls @ 1,000 mls/hr IV BOLUS ONE (unknown) (no (unknown) (unknown) Stated Complaint: (units (unknown) date) hip pain unknown) (unknown) (no (unknown) (unknown) Stop: 03/23/22 (units (unknown) date) 17:02 unknown) (unknown) (no (unknown) (unknown) Substance Use (units ( unknown) date) Type: marijuana unknown) (unknown) (no (unknown) (unknown) Surgical History (units (unknown) date) (Reviewed 03/23/22 unknown) @ 16:07 by Liam Colón MD) (unknown) (no (unknown) (unknown) Time Seen by (units (u nknown) date) Provider: 03/23/22 unknown) 16:03 (unknown) (no (unknown) (unknown) Troponin + CK (units ( unknown) date) Cardiac Panel Stat unknown) (unknown) (no (unknown) (unknown) Urine Drug Screen, (units (unknown) date) Rapid Stat unknown) (unknown) (no (unknown) (unknown) XR hip w pel if (units (unknown) date) done LT 2V Stat unknown) (unknown) (no (unknown) (unknown) [Embedded Image (units (unknown) date) Not Available] unknown) (unknown) (no (unknown) (unknown) [From ] (units ( unknown) date) unknown) (unknown) (no (unknown) (unknown) adhesive tape (units ( unknown) date) AdvReac Verified unknown) 01/18/22 15:14 (unknown) (no (unknown) (unknown) alcohol intake (units (unknown) date) frequency: 0-2 unknown) drinks per day (unknown) (no (unknown) (unknown) and below (units (unkn own) date) unknown) (unknown) (no (unknown) (unknown) and knee. Very (units (unknown) date) painful with unknown) passive or active attempt of moving the left hip. (unknown) (no (unknown) (unknown) any other injury (units (unknown) date) or pain. She is not unknown) on any blood thinners. She did recently (unknown) (no (unknown) (unknown) capsule,delayed (units (unknown) date) release (Nexium) unknown) (unknown) (no (unknown) (unknown) desloratadine 5 mg (units (unknown) date) tablet 5 mg PO BID unknown) PRN nasal congestion 01/18/22 (unknown) (no (unknown) (unknown) desloratadine (units ( unknown) date) [Clarinex] 5 mg unknown) tablet (unknown) (no (unknown) (unknown) dislocation/dehydr (units (unknown) date) ation) unknown) (unknown) (no (unknown) (unknown) done. She was at a (units (unknown) date) [facility] and unknown) [place]. Patient states she is not eaten or (unknown) (no (unknown) (unknown) drank very much (units (unknown) date) today. Has felt unknown) tired and weak though. Again denies any chest (unknown) (no (unknown) (unknown) dyspnea or chest (units (unknown) date) pain. Denies any unknown) dizziness. No black or bloody stools (unknown) (no (unknown) (unknown) esomeprazole (units (u nknown) date) magnesium 40 mg 40 unknown) mg PO QDAY ##0 11/29/12 (unknown) (no (unknown) (unknown) esomeprazole (units (u nknown) date) magnesium [Nexium] unknown) 40 MG capsule,delayed release(DR/EC) (unknown) (no (unknown) (unknown) extended release (units [...] 12 unknown) hrs (unknown) (no (unknown) (unknown) left leg and (units (u nknown) date) external rotation unknown) of the foot. Foot is warm soft and pink with (unknown) (no (unknown) (unknown) levothyroxine 125 (units [...] PO .COMPLEX 01/18/22 (unknown) (no (unknown) (unknown) oxycodone 5 mg (units (unknown) date) tablet (Roxicodone) unknown) 5 mg PO Q4P ##0 11/29/12 (unknown) (no (unknown) (unknown) oxycodone (units (unkn own) date) [Roxicodone] 5 MG unknown) tablet (unknown) (no (unknown) (unknown) pack(EUA) (units (unkn own) date) (Paxlovid) unknown) (unknown) (no (unknown) (unknown) pain or dyspnea or (units (unknown) date) palpitations. unknown) Patient placed in bed. Pants shoes socks (unknown) (no (unknown) (unknown) pregabalin 100 mg (units (unknown) date) capsule (Lyrica) 1 unknown) Q DAY ##0 11/29/12 (unknown) (no (unknown) (unknown) pregabalin (units (unk nown) date) [Lyrica] 100 MG unknown) capsule (unknown) (no (unknown) (unknown) rales, or rhonchi. (units (unknown) date) unknown) (unknown) (no (unknown) (unknown) recently. Patient (units (unknown) date) states she got unknown) tangled up with the [employer] walking her dog (unknown) (no (unknown) (unknown) removed and placed (units (unknown) date) in a gown. Left leg unknown) is slightly shortened and externally (unknown) (no (unknown) (unknown) rosuvastatin 20 mg (units (unknown) date) tablet (Crestor) unknown) ##0 11/29/12 (unknown) (no (unknown) (unknown) rosuvastatin (units (u nknown) date) [Crestor] 20 MG unknown) tablet (unknown) (no (unknown) (unknown) rotated. 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 No surgeries were (unknown) (no (unknown) (unknown) strong pedal pulse (units (unknown) date) with light touch unknown) intact to foot and toes. Nontender ankle (unknown) (no (unknown) (unknown) substance use (units [...] tablet of ritonavir (unknown) (no (unknown) (unknown) today and she fell (units (unknown) date) onto her left hip. unknown) On complains of left hip pain. Denies (unknown) (no (unknown) (unknown) trimethoprim [From (units (unknown) date) Septra] Allergy unknown) Verified 01/18/22 15:14 (unknown) (no (unknown) (unknown) twice daily for 5 (units (unknown) date) days unknown) (unknown) (no (unknown) (unknown) venlafaxine 50 MG (units (unknown) date) tablet unknown) (unknown) (no (unknown) (unknown) venlafaxine 50 mg (units (unknown) date) tablet 50 mg PO ##0 unknown) 11/29/12 (unknown) (no (unknown) (unknown) x2)-ritonavir 100 (units (unknown) date) mg tablet,dose #30 unknown) ea Result panel 142 (unknown) (no date) (unknown) (unknown) 0.8 % (unkn own) (unknown) (no date) (unknown) (unknown) 1.9 % (unkn own) (unknown) (no date) (unknown) (unknown) 10.4 x10 3/ul (unkn own) (unknown) (no date) (unknown) (unknown) 100 /ul (unkn own) (unknown) (no date) (unknown) (unknown) 11.5 g/dl (unkn own) (unknown) (no date) (unknown) (unknown) 14.3 % (unkn own) (unknown) (no date) (unknown) (unknown) 19.6 % (unkn own) (unknown) (no date) (unknown) (unknown) 200 /ul (unkn own) (unknown) (no date) (unknown) (unknown) 2000 /ul (unkn own) (unknown) (no date) (unknown) (unknown) 29.0 pg (unkn own) (unknown) (no date) (unknown) (unknown) 290 x10 3/ul (unkn own) (unknown) (no date) (unknown) (unknown) 3.95 x10 6/ul (unkn own) (unknown) (no date) (unknown) (unknown) 33.2 % (unkn own) (unknown) (no date) (unknown) (unknown) 34.5 % (unkn own) (unknown) (no date) (unknown) (unknown) 7.6 % (unkn own) (unknown) (no date) (unknown) (unknown) 70.1 % (unkn own) (unknown) (no date) (unknown) (unknown) 7300 /ul (unkn own) (unknown) (no date) (unknown) (unknown) 800 /ul (unkn own) (unknown) (no date) (unknown) (unknown) 87.4 fl (unkn own) Result panel 143 (unknown) (no (unknown) (unknown) (no value) (units (unk nown) date) unknown) (unknown) (no (unknown) (unknown) [id number] (units (unkno wn) date) unknown) (unknown) (no (unknown) (unknown) 03/23/22 (units (unkno wn) date) unknown) (unknown) (no (unknown) (unknown) [address] (units (unkn own) date) [address] unknown) (unknown) (no (unknown) (unknown) Accession (units (unkn own) date) Number: unknown) [id number] (unknown) (no (unknown) (unknown) Age/Sex: 72 / F (units (unknown) date) Date of Service: unknown) (unknown) (no (unknown) (unknown) [place], [place] (units ( unknown) date) [address] unknown) (unknown) (no (unknown) (unknown) Approved by: (units (u nknown) date) Kieran Mata M.D. unknown) on 03/23/2022 at 16:51 (unknown) (no (unknown) (unknown) Bones and chest (units (unknown) date) wall: No unknown) suspicious bony lesions. Overlying soft tissues (unknown) (no (unknown) (unknown) COMPARISON: (units (un known) date) [facility], unknown) CR, XR CHEST 2V, 01/18/2022, 17:05. (unknown) (no (unknown) (unknown) : 1950 (units (unknown) date) Acct:[id number] unknown) (unknown) (no (unknown) (unknown) Dictated by: (units (u nknown) date) Kiearn Mata M.D. unknown) on 03/23/2022 at 16:50 (unknown) (no (unknown) (unknown) FINDINGS: (units (unkn own) date) unknown) (unknown) (no (unknown) (unknown) IMPRESSION: (units (un known) date) Cardiomegaly and unknown) mild congestion. No focal infiltrate or (unknown) (no (unknown) (unknown) INDICATIONS: (units (u nknown) date) HIP PAIN AFTER unknown) FALL (unknown) (no (unknown) (unknown) [facility] (units (unknown) date) unknown) (unknown) (no (unknown) (unknown) Loc: ED (units (unkno wn) date) unknown) (unknown) (no (unknown) (unknown) Lungs and (units (unkn own) date) pleura: Mild unknown) pulmonary vascular congestion is seen. No definite (unknown) (no (unknown) (unknown) Mediastinum: (units (u nknown) date) Mediastinal unknown) contours appear normal. Heart size is enlarged. (unknown) (no (unknown) (unknown) Ordering (units (unkno wn) date) Provider: unknown) Liam Colón MD (unknown) (no (unknown) (unknown) PROCEDURE: XR (units ( unknown) date) CHEST 1V unknown) (unknown) (no (unknown) (unknown) Patient: (units (unkno wn) date) Elidia Rock K unknown) MR#: [id number] (unknown) (no (unknown) (unknown) Procedure: XR (units ( unknown) date) chest 1V unknown) (unknown) (no (unknown) (unknown) Signed (units (unkno wn) date) unknown) (unknown) (no (unknown) (unknown) Surgical (units (unkno wn) date) changes and unknown) devices: Surgical clips are seen in right hilar region. (unknown) (no (unknown) (unknown) TECHNIQUE: One (units (unknown) date) view of the unknown) chest was acquired. (unknown) (no (unknown) (unknown) There is (units (unkno wn) date) unknown) (unknown) (no (unknown) (unknown) XRay Report (units (un known) date) unknown) (unknown) (no (unknown) (unknown) appear (units (unkno wn) date) unknown) (unknown) (no (unknown) (unknown) focal (units (unkno wn) date) unknown) (unknown) (no (unknown) (unknown) infiltrate. No (units (unknown) date) pleural unknown) effusions or pneumothorax. (unknown) (no (unknown) (unknown) pneumothorax. (units ( unknown) date) unknown) (unknown) (no (unknown) (unknown) prior lower (units (un known) date) thoracic spine unknown) vertebral body kyphoplasty. (unknown) (no (unknown) (unknown) unremarkable. (units ( unknown) date) unknown) Result panel 144 (unknown) (no date) (unknown) (unknown) 1.2 (units unknown) (unknown) (unknown) (no date) (unknown) (unknown) 14.2 seconds (unkn own) (unknown) (no date) (unknown) (unknown) 36 seconds (unkn own) (unknown) (no date) (unknown) (unknown) 36 seconds (unkn own) Result panel 145 (unknown) (no date) (unknown) (unknown) > 60 ml/min (unkn own) (unknown) (no date) (unknown) (unknown) > 60 ml/min (unkn own) (unknown) (no date) (unknown) (unknown) < 10 mg/dl (unkn own) (unknown) (no date) (unknown) (unknown) < 10 mg/dl (unkn own) (unknown) (no date) (unknown) (unknown) 0.7 mg/dl (unkn own) (unknown) (no date) (unknown) (unknown) 1.00 mg/dl (unkn own) (unknown) (no date) (unknown) (unknown) 1.5 (units (unkn own) unknown) (unknown) (no date) (unknown) (unknown) 101 mmol/l (unkn own) (unknown) (no date) (unknown) (unknown) 115 mg/dl (unkn own) (unknown) (no date) (unknown) (unknown) 115 mg/dl (unkn own) (unknown) (no date) (unknown) (unknown) 135 mmol/l (unkn own) (unknown) (no date) (unknown) (unknown) 2.5 g/dl (unkn own) (unknown) (no date) (unknown) (unknown) 25 mg/dl (unkn own) (unknown) (no date) (unknown) (unknown) 25.0 (units (unkn own) unknown) (unknown) (no date) (unknown) (unknown) 26 mmol/l (unkn own) (unknown) (no date) (unknown) (unknown) 3.7 g/dl (unkn own) (unknown) (no date) (unknown) (unknown) 3.7 mmol/l (unkn own) (unknown) (no date) (unknown) (unknown) 30 iu/l (unkn own) (unknown) (no date) (unknown) (unknown) 32 iu/l (unkn own) (unknown) (no date) (unknown) (unknown) 6.2 g/dl (unkn own) (unknown) (no date) (unknown) (unknown) 8.8 mg/dl (unkn own) (unknown) (no date) (unknown) (unknown) 88 u/l (unkn own) (unknown) (no date) (unknown) (unknown) 88 u/l (unkn own) (unknown) (no date) (unknown) (unknown) Test not % (unkn own) performed (unknown) (no date) (unknown) (unknown) Test not % (unkn own) performed (unknown) (no date) (unknown) (unknown) Test not ng/ml (unkn own) performed (unknown) (no date) (unknown) (unknown) Test not ng/ml (unkn own) performed Result panel 146 (unknown) (no date) (unknown) (unknown) 1.9 mg/dl (unkn own) (unknown) (no date) (unknown) (unknown) 1.9 mg/dl (unkn own) Result panel 147 (unknown) (no (unknown) (unknown) (no value) (units (unk nown) date) unknown) (unknown) (no (unknown) (unknown) (Clarinex) #20 (units (unknown) date) tabs unknown) (unknown) (no (unknown) (unknown) (Lidoderm) (units (unk nown) date) unknown) (unknown) (no (unknown) (unknown) (Synthroid) (units (un known) date) unknown) (unknown) (no (unknown) (unknown) [id number] (units (unkno wn) date) unknown) (unknown) (no (unknown) (unknown) 03/23/22 03/23/22 (units (unknown) date) 03/23/22 unknown) Range/Units (unknown) (no (unknown) (unknown) 03/23/22 16:04 (units (unknown) date) unknown) (unknown) (no (unknown) (unknown) 03/23/22 16:12 (units (unknown) date) unknown) (unknown) (no (unknown) (unknown) 03/23/22 16:42 (units (unknown) date) unknown) (unknown) (no (unknown) (unknown) 03/23/22 16:54 (units (unknown) date) unknown) (unknown) (no (unknown) (unknown) 03/23/22 17:03 (units (unknown) date) unknown) (unknown) (no (unknown) (unknown) 03/23/22 17:07 (units (unknown) date) unknown) (unknown) (no (unknown) (unknown) 03/23/22 17:08 (units (unknown) date) unknown) (unknown) (no (unknown) (unknown) 03/23/22 (units (unkno wn) date) unknown) (unknown) (no (unknown) (unknown) 03/24/22 05:00 (units (unknown) date) unknown) (unknown) (no (unknown) (unknown) 03/25/22 05:00 (units (unknown) date) unknown) (unknown) (no (unknown) (unknown) 03/26/22 05:00 (units (unknown) date) unknown) (unknown) (no (unknown) (unknown) 15:47 03/23/22 (units (unknown) date) unknown) (unknown) (no (unknown) (unknown) 15:59 03/23/22 (units (unknown) date) unknown) (unknown) (no (unknown) (unknown) 16:00 03/23/22 (units (unknown) date) unknown) (unknown) (no (unknown) (unknown) 16:00 (units (unkno wn) date) unknown) (unknown) (no (unknown) (unknown) 16:04 03/23/22 (units (unknown) date) unknown) (unknown) (no (unknown) (unknown) 16:04 (units (unkno wn) date) unknown) (unknown) (no (unknown) (unknown) 16:05 03/23/22 (units (unknown) date) unknown) (unknown) (no (unknown) (unknown) 16:10 (units (unkno wn) date) unknown) (unknown) (no (unknown) (unknown) 16:12 16:12 16:12 (units (unknown) date) unknown) (unknown) (no (unknown) (unknown) 16:15 03/23/22 (units (unknown) date) unknown) (unknown) (no (unknown) (unknown) 16:17 03/23/22 (units (unknown) date) unknown) (unknown) (no (unknown) (unknown) 16:17 (units (unkno wn) date) unknown) (unknown) (no (unknown) (unknown) 16:20 03/23/22 (units (unknown) date) unknown) (unknown) (no (unknown) (unknown) 16:25 03/23/22 (units (unknown) date) unknown) (unknown) (no (unknown) (unknown) 16:25 (units (unkno wn) date) unknown) (unknown) (no (unknown) (unknown) 16:29 03/23/22 (units (unknown) date) unknown) (unknown) (no (unknown) (unknown) 16:30 (units (unkno wn) date) unknown) (unknown) (no (unknown) (unknown) ALT 30 (<35) IU/L (units (unknown) date) unknown) (unknown) (no (unknown) (unknown) APTT 36 (26-36) (units (unknown) date) SECONDS unknown) (unknown) (no (unknown) (unknown) AST 32 (14-36) (units (unknown) date) IU/L unknown) (unknown) (no (unknown) (unknown) Able to extend the (units (unknown) date) left knee fully. unknown) (unknown) (no (unknown) (unknown) Acetaminophen (units ( unknown) date) (Acetaminophen 325 unknown) Mg Tablet) 650 mg PO Q6H PRN (unknown) (no (unknown) (unknown) Admin: 03/23/22 (units (unknown) date) 16:10 Dose: 1,000 unknown) mls/hr (unknown) (no (unknown) (unknown) Admit Date/Time: (units (unknown) date) 03/23/22 17:05 unknown) (unknown) (no (unknown) (unknown) Admit Provider: (units (unknown) date) Heraclio Mckeon unknown) (unknown) (no (unknown) (unknown) Age/Sex: 72 / F (units (unknown) date) unknown) (unknown) (no (unknown) (unknown) Albumin 3.7 (units (un known) date) (3.5-5.0) g/dL unknown) (unknown) (no (unknown) (unknown) Albumin/Globulin (units (unknown) date) Ratio 1.5 (1.0-2.8) unknown) (unknown) (no (unknown) (unknown) Alkaline (units (unkno wn) date) Phosphatase 88 unknown) (38-126) U/L (unknown) (no (unknown) (unknown) Allergies (units (unkn own) date) unknown) (unknown) (no (unknown) (unknown) Allergy/AdvReac (units (unknown) date) Type Severity unknown) Reaction Status Date / Time (unknown) (no (unknown) (unknown) Appropriate for (units (unknown) date) admission. Patient unknown) will need surgical intervention for her hip (unknown) (no (unknown) (unknown) BACK: No flank (units (unknown) date) tenderness. unknown) (unknown) (no (unknown) (unknown) BMP [Basic (units (unk nown) date) Metabolic Panel] unknown) DAILY (unknown) (no (unknown) (unknown) BUN 25 H (7-17) (units (unknown) date) mg/dL unknown) (unknown) (no (unknown) (unknown) BUN/Creatinine (units (unknown) date) Ratio 25.0 H (6-22) unknown) (unknown) (no (unknown) (unknown) Baso # (Auto) 100 (units (unknown) date) (0-100) /uL unknown) (unknown) (no (unknown) (unknown) Baso % (Auto) 0.8 (units (unknown) date) (0-2) % unknown) (unknown) (no (unknown) (unknown) Blood Pressure (units (unknown) date) 108/55 L unknown) (unknown) (no (unknown) (unknown) Blood Pressure (units (unknown) date) 67/41 L 03/23/22 unknown) 15:47 (unknown) (no (unknown) (unknown) Blood Pressure (units (unknown) date) 67/41 L 91/47 L unknown) (unknown) (no (unknown) (unknown) Blood Pressure (units (unknown) date) 90/44 L 97/49 L unknown) (unknown) (no (unknown) (unknown) Blood Pressure (units (unknown) date) 91/45 L unknown) (unknown) (no (unknown) (unknown) Blood Pressure (units (unknown) date) 94/48 L unknown) (unknown) (no (unknown) (unknown) Blood Pressure (units (unknown) date) 98/48 L unknown) (unknown) (no (unknown) (unknown) Blood pressure and (units (unknown) date) O2 saturation noted unknown) by triage notes. Patient denies any (unknown) (no (unknown) (unknown) CARDIOVASCULAR: (units (unknown) date) Regular rate and unknown) rhythm without murmurs (unknown) (no (unknown) (unknown) CARDIOVASCULAR: (units (unknown) date) negative chest unknown) pain, palpitations (unknown) (no (unknown) (unknown) CBC Auto Diff (units ( unknown) date) [Complete Blood unknown) Count AUTO DIFF] DAILY (unknown) (no (unknown) (unknown) CK-MB (CK-2) Rel (units (unknown) date) Index TNP unknown) (unknown) (no (unknown) (unknown) CK-MB (CK-2) TNP (units (unknown) date) unknown) (unknown) (no (unknown) (unknown) COVID19 -Nasal (units (unknown) date) RAPID/Pre-Proc Stat unknown) (unknown) (no (unknown) (unknown) Calcium 8.8 (units (un known) date) (8.4-10.2) mg/dL unknown) (unknown) (no (unknown) (unknown) Carbon Dioxide 26 (units (unknown) date) (22-32) mmol/L unknown) (unknown) (no (unknown) (unknown) Chief Complaint: (units (unknown) date) Trauma unknown) (unknown) (no (unknown) (unknown) Chloride 101 (units (u nknown) date) (98-107) mmol/L unknown) (unknown) (no (unknown) (unknown) Clinical (units (unkno wn) date) Impression: unknown) (unknown) (no (unknown) (unknown) Closed hip (units (unk nown) date) fracture unknown) (unknown) (no (unknown) (unknown) Complete Blood (units (unknown) date) Count AUTO DIFF unknown) Stat (unknown) (no (unknown) (unknown) Comprehensive (units ( unknown) date) Metabolic Panel unknown) Stat (unknown) (no (unknown) (unknown) Consult to (units (unk nown) date) Discharge Planning unknown) Routine (unknown) (no (unknown) (unknown) Consult to (units (unk nown) date) Orthopedic Surgery unknown) Stat (unknown) (no (unknown) (unknown) Consultation #1: (units (unknown) date) unknown) (unknown) (no (unknown) (unknown) Consultation #2: (units (unknown) date) unknown) (unknown) (no (unknown) (unknown) Consultations (units ( unknown) date) unknown) (unknown) (no (unknown) (unknown) Course Narrative: (units (unknown) date) unknown) (unknown) (no (unknown) (unknown) Course (units (unkno wn) date) unknown) (unknown) (no (unknown) (unknown) Creatinine 1.00 (units (unknown) date) (0.52-1.04) mg/dL unknown) (unknown) (no (unknown) (unknown) : 1950 (units (unknown) date) Acct:[id number] unknown) (unknown) (no (unknown) (unknown) Date of Service: (units (unknown) date) 03/23/22 unknown) (unknown) (no (unknown) (unknown) Decision to Admit (units (unknown) date) Date: 03/23/22 unknown) (unknown) (no (unknown) (unknown) Decision to Admit (units (unknown) date) time: 16:08 unknown) (unknown) (no (unknown) (unknown) Departure (units (unkn own) date) unknown) (unknown) (no (unknown) (unknown) Differential (units (u nknown) date) Diagnosis unknown) (unknown) (no (unknown) (unknown) Differential (units (u nknown) date) diagnosis: Likely unknown) other (Hip contusion hip fracture hip (unknown) (no (unknown) (unknown) Discharge Plan (units (unknown) date) unknown) (unknown) (no (unknown) (unknown) Discontinued (units (u nknown) date) Medications unknown) (unknown) (no (unknown) (unknown) Documented By: KB (units (unknown) date) unknown) (unknown) (no (unknown) (unknown) Documented By: RB (units (unknown) date) unknown) (unknown) (no (unknown) (unknown) ECG Data (units (unkno wn) date) unknown) (unknown) (no (unknown) (unknown) ED Orders (units (unkn own) date) unknown) (unknown) (no (unknown) (unknown) EKG-12 Lead Stat (units (unknown) date) unknown) (unknown) (no (unknown) (unknown) ENT: Mucous (units (un known) date) membranes moist. unknown) (unknown) (no (unknown) (unknown) ER Physician: (units ( unknown) date) Liam Colón MD unknown) (unknown) (no (unknown) (unknown) EXTREMITIES: (units (u nknown) date) Tenderness to the unknown) left hip. There is shortening slightly of the (unknown) (no (unknown) (unknown) EYES: Pupils equal (units (unknown) date) round No scleral unknown) icterus. (unknown) (no (unknown) (unknown) Emergency Report (units (unknown) date) unknown) (unknown) (no (unknown) (unknown) Eos # (Auto) 200 (units (unknown) date) (0-450) /uL unknown) (unknown) (no (unknown) (unknown) Eos % (Auto) 1.9 L (units (unknown) date) (2-4) % unknown) (unknown) (no (unknown) (unknown) Estimated GFR > 60 (units (unknown) date) (>60) mL/min unknown) (unknown) (no (unknown) (unknown) Ethanol (ETOH) (units (unknown) date) Stat unknown) (unknown) (no (unknown) (unknown) Ethyl Alcohol < 10 (units (unknown) date) ( - 10) mg/dL unknown) (unknown) (no (unknown) (unknown) Exam Narrative: (units (unknown) date) unknown) (unknown) (no (unknown) (unknown) Exam (units (unkno wn) date) unknown) (unknown) (no (unknown) (unknown) Fibromyalgia (units (u nknown) date) unknown) (unknown) (no (unknown) (unknown) Furosemide (units (unk nown) date) (Furosemide 20 Mg/2 unknown) Ml Vial) 20 mg IV NOW ONE (unknown) (no (unknown) (unknown) GASTROINTESTINAL: (units (unknown) date) Abdomen soft, unknown) non-tender (unknown) (no (unknown) (unknown) GASTROINTESTINAL: (units (unknown) date) negative nausea, unknown) vomiting, abdominal pain (unknown) (no (unknown) (unknown) GENERAL: in no (units (unknown) date) distress, not toxic unknown) not dyspneic (unknown) (no (unknown) (unknown) GENERAL: negative (units (unknown) date) chills, positive unknown) fatigue, malaise, negative fever, sweats. (unknown) (no (unknown) (unknown) : negative (units (u nknown) date) dysuria, frequency, unknown) hematuria (unknown) (no (unknown) (unknown) General (units (unkno wn) date) unknown) (unknown) (no (unknown) (unknown) Globulin 2.5 (units (u nknown) date) (1.7-4.1) g/dL unknown) (unknown) (no (unknown) (unknown) Glucosamine (units (un known) date) Sulfate unknown) (GLUCOSAMINE) ##0 11/29/12 (unknown) (no (unknown) (unknown) Glucose 115 H (units ( unknown) date) (80-110) mg/dL unknown) (unknown) (no (unknown) (unknown) HEAD: (units (unkno wn) date) Normocephalic. unknown) (unknown) (no (unknown) (unknown) HEENT: negative (units (unknown) date) sinus pain, ear unknown) pain, sore throat (unknown) (no (unknown) (unknown) HPI - Fall (units (unk nown) date) unknown) (unknown) (no (unknown) (unknown) HPI Narrative: (units (unknown) date) unknown) (unknown) (no (unknown) (unknown) Hct 34.5 L (36-46) (units (unknown) date) % unknown) (unknown) (no (unknown) (unknown) Hgb 11.5 L (units (unk nown) date) (12.0-16.0) g/dL unknown) (unknown) (no (unknown) (unknown) History of Present (units (unknown) date) Illness unknown) (unknown) (no (unknown) (unknown) Home Medications (units (unknown) date) unknown) (unknown) (no (unknown) (unknown) Hospitalist to (units (unknown) date) admit unknown) (unknown) (no (unknown) (unknown) Hydromorphone HCl (units (unknown) date) (Hydromorphone 0.5 unknown) Mg Inj) 0.5 mg IV Q4H PRN (unknown) (no (unknown) (unknown) Hypertension (units (u nknown) date) unknown) (unknown) (no (unknown) (unknown) Hypothyroidism (units (unknown) date) unknown) (unknown) (no (unknown) (unknown) INR 1.2 (0.9-1.3) (units (unknown) date) unknown) (unknown) (no (unknown) (unknown) Initial Vital (units ( unknown) date) Signs unknown) (unknown) (no (unknown) (unknown) Initial Vital (units ( unknown) date) Signs: unknown) (unknown) (no (unknown) (unknown) Interpretation: (units (unknown) date) unknown) (unknown) (no (unknown) (unknown) [facility] (units (unknown) date) [address] unknown) [place] [address] (unknown) (no (unknown) (unknown) Lab Data (units (unkno wn) date) unknown) (unknown) (no (unknown) (unknown) Lab Results (units (un known) date) unknown) (unknown) (no (unknown) (unknown) Labs: (units (unkno wn) date) unknown) (unknown) (no (unknown) (unknown) Last Infusion: (units (unknown) date) 03/23/22 16:33 unknown) Dose: 0 mls/hr (unknown) (no (unknown) (unknown) Lymph # (Auto) (units (unknown) date) 2000 (1859-4312) unknown) /uL (unknown) (no (unknown) (unknown) Lymph % (Auto) (units (unknown) date) 19.6 L (25-40) % unknown) (unknown) (no (unknown) (unknown) MCH 29.0 (26-34) (units (unknown) date) PG unknown) (unknown) (no (unknown) (unknown) MCHC 33.2 (30-36) (units (unknown) date) % unknown) (unknown) (no (unknown) (unknown) MCV 87.4 (80-100) (units (unknown) date) fL unknown) (unknown) (no (unknown) (unknown) MDM - Fall (units (unk nown) date) unknown) (unknown) (no (unknown) (unknown) MDM Narrative (units ( unknown) date) unknown) (unknown) (no (unknown) (unknown) MUSCULOSKELETAL: (units (unknown) date) Positive muscle or unknown) bony pain (unknown) (no (unknown) (unknown) Magnesium Urgent (units (unknown) date) unknown) (unknown) (no (unknown) (unknown) Medical History (units (unknown) date) (Reviewed 03/23/22 unknown) @ 16:07 by Liam Colón MD) (unknown) (no (unknown) (unknown) Medical decision (units (unknown) date) making narrative: unknown) (unknown) (no (unknown) (unknown) Medication (units (unk nown) date) Instructions unknown) Recorded Confirmed (unknown) (no (unknown) (unknown) Medication (units (unk nown) date) Instructions unknown) Recorded (unknown) (no (unknown) (unknown) Melatonin (units (unkn own) date) (Melatonin 3 Mg unknown) Tablet) 6 mg PO BEDTIME PRN (unknown) (no (unknown) (unknown) [place] # (Auto) 800 (units (unknown) date) (0-900) /uL unknown) (unknown) (no (unknown) (unknown) [place] % (Auto) 7.6 (units (unknown) date) (3-14) % unknown) (unknown) (no (unknown) (unknown) NECK: Trachea (units ( unknown) date) midline. unknown) (unknown) (no (unknown) (unknown) NEURO: AOx4. (units (u nknown) date) unknown) (unknown) (no (unknown) (unknown) NEUROLOGIC: (units (un known) date) negative weakness, unknown) numbness (unknown) (no (unknown) (unknown) Naloxone HCl (units (u nknown) date) (Naloxone 0.4 Mg/Ml unknown) Vial) 0.2 mg IV Q2MIN PRN (unknown) (no (unknown) (unknown) Narrative (units (unkn own) date) unknown) (unknown) (no (unknown) (unknown) Narrative: (units (unk nown) date) unknown) (unknown) (no (unknown) (unknown) Neut # (Auto) 7300 (units (unknown) date) H (9651-5697) /uL unknown) (unknown) (no (unknown) (unknown) Neut % (Auto) 70.1 (units (unknown) date) (50-75) % unknown) (unknown) (no (unknown) (unknown) No new issues (units ( unknown) date) during course of unknown) stay (unknown) (no (unknown) (unknown) No pertinent past (units (unknown) date) surgical history unknown) (unknown) (no (unknown) (unknown) Ordered: (units (unkno wn) date) unknown) (unknown) (no (unknown) (unknown) Orders (units (unkno wn) date) unknown) (unknown) (no (unknown) (unknown) Oxycodone HCl (units ( unknown) date) (Oxycodone Ir 5 Mg unknown) Tablet) 5 mg PO Q4HR PRN (unknown) (no (unknown) (unknown) Oxygen Delivery (units (unknown) date) Method 03/23/22 unknown) 15:47 (unknown) (no (unknown) (unknown) Oxygen Delivery (units (unknown) date) Method Nasal unknown) Cannula Nasal Cannula Nasal Cannula (unknown) (no (unknown) (unknown) Oxygen Delivery (units (unknown) date) Method Nasal unknown) Cannula (unknown) (no (unknown) (unknown) Oxygen Delivery (units (unknown) date) Method Room Air unknown) (unknown) (no (unknown) (unknown) Oxygen Delivery (units (unknown) date) Method unknown) (unknown) (no (unknown) (unknown) Oxygen Flow Rate 2 (units (unknown) date) 2 2 unknown) (unknown) (no (unknown) (unknown) Oxygen Flow Rate 2 (units (unknown) date) unknown) (unknown) (no (unknown) (unknown) Oxygen Flow Rate (units (unknown) date) unknown) (unknown) (no (unknown) (unknown) PRN Reason: (units (un known) date) Constipation unknown) (unknown) (no (unknown) (unknown) PRN Reason: (units (un known) date) Fever/Mild Pain unknown) (1-3) (unknown) (no (unknown) (unknown) PRN Reason: (units (un known) date) Insomnia unknown) (unknown) (no (unknown) (unknown) PRN Reason: Opiate (units (unknown) date) Reversal unknown) (unknown) (no (unknown) (unknown) PRN Reason: Pain, (units (unknown) date) Moderate (4-6) unknown) (unknown) (no (unknown) (unknown) PRN (units (unkno wn) date) unknown) (unknown) (no (unknown) (unknown) PSYCH: Not (units (unk nown) date) anxious, is unknown) cooperative (unknown) (no (unknown) (unknown) PT 14.2 H (units (unkn own) date) (10.1-12.7) SECONDS unknown) (unknown) (no (unknown) (unknown) Partial (units (unkno wn) date) Thromboplastin Time unknown) Stat (unknown) (no (unknown) (unknown) Patient (units (unkno wn) date) Disposition: unknown) Admitted As Inpatient (unknown) (no (unknown) (unknown) Patient History (units (unknown) date) unknown) (unknown) (no (unknown) (unknown) Patient: (units (unkno wn) date) Elidia Rock unknown) MR#: [id number] (unknown) (no (unknown) (unknown) Plt Count 290 (units ( unknown) date) (150-400) X103/uL unknown) (unknown) (no (unknown) (unknown) Polyethylene (units (u nknown) date) Glycol unknown) (Polyethylene Glycol 3350 17 Gm Powd.Pack) 17 gm PO DAILY (unknown) (no (unknown) (unknown) Potassium 3.7 (units ( unknown) date) (3.4-5.1) mmol/L unknown) (unknown) (no (unknown) (unknown) Previous Rx's (units ( unknown) date) unknown) (unknown) (no (unknown) (unknown) Prothrombin Time (units (unknown) date) INR Stat unknown) (unknown) (no (unknown) (unknown) Pulse Oximetry 84 (units (unknown) date) L 03/23/22 15:47 unknown) (unknown) (no (unknown) (unknown) Pulse Oximetry 84 (units (unknown) date) L 82 L unknown) (unknown) (no (unknown) (unknown) Pulse Oximetry 84 (units (unknown) date) L 94 unknown) (unknown) (no (unknown) (unknown) Pulse Oximetry 86 (units (unknown) date) L 82 L unknown) (unknown) (no (unknown) (unknown) Pulse Oximetry 92 (units (unknown) date) 88 L unknown) (unknown) (no (unknown) (unknown) Pulse Oximetry 94 (units (unknown) date) unknown) (unknown) (no (unknown) (unknown) Pulse Oximetry 97 (units (unknown) date) 95 unknown) (unknown) (no (unknown) (unknown) Pulse Rate 59 L 59 (units (unknown) date) L unknown) (unknown) (no (unknown) (unknown) Pulse Rate 59 L (units (unknown) date) unknown) (unknown) (no (unknown) (unknown) Pulse Rate 60 59 L (units (unknown) date) unknown) (unknown) (no (unknown) (unknown) Pulse Rate 64 (units ( unknown) date) 03/23/22 15:47 unknown) (unknown) (no (unknown) (unknown) Pulse Rate 64 65 (units (unknown) date) unknown) (unknown) (no (unknown) (unknown) Pulse Rate 64 66 (units (unknown) date) unknown) (unknown) (no (unknown) (unknown) Pulse Rate 65 59 L (units (unknown) date) unknown) (unknown) (no (unknown) (unknown) RBC 3.95 L (units (unk nown) date) (4.0-5.2) X106/uL unknown) (unknown) (no (unknown) (unknown) RDW 14.3 (units (unkno wn) date) (11.6-14.8) % unknown) (unknown) (no (unknown) (unknown) RESPIRATORY: Clear (units (unknown) date) to auscultation. unknown) Breath sounds equal bilaterally. No wheezes, (unknown) (no (unknown) (unknown) RESPIRATORY: (units (u nknown) date) negative dyspnea, unknown) cough (unknown) (no (unknown) (unknown) ROS Unobtainable: (units (unknown) date) All systems unknown) reviewed + are unremarkable except as noted in HPI (unknown) (no (unknown) (unknown) Reevaluation #1: (units (unknown) date) unknown) (unknown) (no (unknown) (unknown) Reevaluation(s) (units (unknown) date) unknown) (unknown) (no (unknown) (unknown) Related Data (units (u nknown) date) unknown) (unknown) (no (unknown) (unknown) Respiratory Rate (units (unknown) date) 18 03/23/22 15:47 unknown) (unknown) (no (unknown) (unknown) Respiratory Rate (units (unknown) date) 18 22 unknown) (unknown) (no (unknown) (unknown) Respiratory Rate (units (unknown) date) 21 unknown) (unknown) (no (unknown) (unknown) Respiratory Rate (units (unknown) date) 26 H 35 H unknown) (unknown) (no (unknown) (unknown) Respiratory Rate (units (unknown) date) 33 H 27 H unknown) (unknown) (no (unknown) (unknown) Respiratory Rate (units (unknown) date) 36 H 39 H unknown) (unknown) (no (unknown) (unknown) Respiratory Rate (units (unknown) date) 39 H 31 H unknown) (unknown) (no (unknown) (unknown) Restrictive lung (units (unknown) date) disease unknown) (unknown) (no (unknown) (unknown) Result diagrams: (units (unknown) date) unknown) (unknown) (no (unknown) (unknown) Review of Systems (units (unknown) date) unknown) (unknown) (no (unknown) (unknown) SKIN: Warm and dry (units (unknown) date) unknown) (unknown) (no (unknown) (unknown) SKIN: negative (units (unknown) date) rash, skin lesions unknown) (unknown) (no (unknown) (unknown) Sennosides (units (unk nown) date) (Sennosides 8.6 Mg unknown) Tablet) 8.6 mg PO BID PRN (unknown) (no (unknown) (unknown) Signed By: (units (unk nown) date) unknown) (unknown) (no (unknown) (unknown) Sinus rhythm rate (units (unknown) date) [address] elevation unknown) or depression (unknown) (no (unknown) (unknown) Smoking Status: (units (unknown) date) Former smoker unknown) (unknown) (no (unknown) (unknown) Social History (units (unknown) date) (Reviewed 03/23/22 unknown) @ 16:07 by Liam Colón MD) (unknown) (no (unknown) (unknown) Sodium 135 L (units (u nknown) date) (137-145) mmol/L unknown) (unknown) (no (unknown) (unknown) Sodium Chloride (units (unknown) date) (Normal Saline unknown) 0.9%) 1,000 mls @ 1,000 mls/hr IV BOLUS ONE (unknown) (no (unknown) (unknown) Spoke with (units (unk nown) date) hospitalist, unknown) Mike, he will admit, however patient will need (unknown) (no (unknown) (unknown) Spoke with (units (unk nown) date) orthopedics, unknown) lili, will need to do surgery on the hip. (unknown) (no (unknown) (unknown) Stated Complaint: (units (unknown) date) hip pain unknown) (unknown) (no (unknown) (unknown) Stop: 03/23/22 (units (unknown) date) 17:02 unknown) (unknown) (no (unknown) (unknown) Stop: 03/23/22 (units (unknown) date) 17:09 unknown) (unknown) (no (unknown) (unknown) Substance Use (units ( unknown) date) Type: marijuana unknown) (unknown) (no (unknown) (unknown) Surgical History (units (unknown) date) (Reviewed 03/23/22 unknown) @ 16:07 by Liam Colón MD) (unknown) (no (unknown) (unknown) Temperature 98.4 F (units (unknown) date) 03/23/22 15:47 unknown) (unknown) (no (unknown) (unknown) Temperature 98.4 F (units (unknown) date) unknown) (unknown) (no (unknown) (unknown) Temperature (units (un known) date) unknown) (unknown) (no (unknown) (unknown) Time Seen by (units (u nknown) date) Provider: 03/23/22 unknown) 16:03 (unknown) (no (unknown) (unknown) Time: 16:45 (units (un known) date) unknown) (unknown) (no (unknown) (unknown) Time: 16:50 (units (un known) date) unknown) (unknown) (no (unknown) (unknown) Time: 17:19 (units (un known) date) unknown) (unknown) (no (unknown) (unknown) Total Bilirubin (units (unknown) date) 0.7 (0.2-1.3) mg/dL unknown) (unknown) (no (unknown) (unknown) Total Creatine (units (unknown) date) Kinase 88 (30-135) unknown) U/L (unknown) (no (unknown) (unknown) Total Protein 6.2 (units (unknown) date) L (6.3-8.2) g/dL unknown) (unknown) (no (unknown) (unknown) Troponin + CK (units ( unknown) date) Cardiac Panel Stat unknown) (unknown) (no (unknown) (unknown) Updated patient (units (unknown) date) results and will unknown) need surgery. She understands. (unknown) (no (unknown) (unknown) Urine Drug Screen, (units (unknown) date) Rapid Stat unknown) (unknown) (no (unknown) (unknown) Vital Signs - 8 hr (units (unknown) date) unknown) (unknown) (no (unknown) (unknown) Vital Signs (units (un known) date) unknown) (unknown) (no (unknown) (unknown) Vital signs: (units (u nknown) date) unknown) (unknown) (no (unknown) (unknown) WBC 10.4 (units (unkno wn) date) (4.5-11.0) X103/uL unknown) (unknown) (no (unknown) (unknown) XR chest 1V Stat (units (unknown) date) unknown) (unknown) (no (unknown) (unknown) XR hip w pel if (units (unknown) date) done LT 2V Stat unknown) (unknown) (no (unknown) (unknown) [Embedded Image (units (unknown) date) Not Available] unknown) (unknown) (no (unknown) (unknown) [From [employer]ra] (units ( unknown) date) unknown) (unknown) (no (unknown) (unknown) adhesive tape (units ( unknown) date) AdvReac Verified unknown) 03/23/22 16:34 (unknown) (no (unknown) (unknown) alcohol intake (units (unknown) date) frequency: 0-2 unknown) drinks per day (unknown) (no (unknown) (unknown) and below (units (unkn own) date) unknown) (unknown) (no (unknown) (unknown) and doing very (units (unknown) date) well. At this time unknown) uncertain etiology of patient's arrival vital (unknown) (no (unknown) (unknown) and knee. Very (units (unknown) date) painful with unknown) passive or active attempt of moving the left hip. (unknown) (no (unknown) (unknown) any other injury (units (unknown) date) or pain. She is not unknown) on any blood thinners. She did recently (unknown) (no (unknown) (unknown) capsule,delayed (units (unknown) date) release (Nexium) unknown) (unknown) (no (unknown) (unknown) cardiac clearance (units (unknown) date) and echocardiogram. unknown) (unknown) (no (unknown) (unknown) desloratadine 5 mg (units (unknown) date) tablet 5 mg PO BID unknown) PRN nasal congestion 01/18/22 (unknown) (no (unknown) (unknown) dislocation/dehydr (units (unknown) date) ation) unknown) (unknown) (no (unknown) (unknown) done. She was at a (units (unknown) date) [facility] and unknown) [place]. Patient states she is not eaten or (unknown) (no (unknown) (unknown) drank very much (units (unknown) date) today. Has felt unknown) tired and weak though. 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 Patient in no (unknown) (no (unknown) (unknown) dyspnea or chest (units (unknown) date) pain. Denies any unknown) dizziness. No black or bloody stools (unknown) (no (unknown) (unknown) esomeprazole (units (u nknown) date) magnesium 40 mg 40 unknown) mg PO QDAY ##0 08/16/13 (unknown) (no (unknown) (unknown) extended release (units (unknown) date) 12 hr (Mucinex) unknown) (unknown) (no (unknown) (unknown) fluoxetine 40 mg (units (unknown) date) capsule (Prozac) 80 unknown) 1 ##0 11/29/12 (unknown) (no (unknown) (unknown) fracture. Blood (units (unknown) date) pressure has unknown) improved with IV fluids. O2 saturation improved (unknown) (no (unknown) (unknown) guaifenesin 600 mg (units (unknown) date) tablet, 600 mg PO unknown) BID #20 tabs 01/18/22 (unknown) (no (unknown) (unknown) ketorolac 10 mg (units (unknown) date) tablet 10 mg PO Q6H unknown) PRN pain #14 tabs 06/07/21 (unknown) (no (unknown) (unknown) left leg and (units (u nknown) date) external rotation unknown) of the foot. Foot is warm soft and pink with (unknown) (no (unknown) (unknown) levothyroxine 125 (units (unknown) date) mcg tablet ##0 unknown) 11/29/12 (unknown) (no (unknown) (unknown) lidocaine 5 % (units ( unknown) date) topical patch 1 unknown) patch topical DAILY #15 ea 06/07/21 (unknown) (no (unknown) (unknown) meloxicam 7.5 mg (units (unknown) date) tablet (Mobic) ##0 unknown) 11/29/12 (unknown) (no (unknown) (unknown) methocarbamol 500 (units (unknown) date) mg tablet 500 mg PO unknown) TID PRN muscle aches #14 01/18/22 (unknown) (no (unknown) (unknown) nirmatrelvir 300 (units (unknown) date) mg (150 mg See Rx unknown) Instructions PO .COMPLEX 01/18/22 (unknown) (no (unknown) (unknown) oxycodone 5 mg (units (unknown) date) tablet (Roxicodone) unknown) 5 mg PO Q4P ##0 11/29/12 (unknown) (no (unknown) (unknown) pack(EUA) (units (unkn own) date) (Paxlovid) unknown) (unknown) (no (unknown) (unknown) pain or dyspnea or (units (unknown) date) palpitations. unknown) Patient placed in bed. Pants shoes socks (unknown) (no (unknown) (unknown) pregabalin 100 mg (units (unknown) date) capsule (Lyrica) 1 unknown) Q DAY ##0 11/29/12 (unknown) (no (unknown) (unknown) rales, or rhonchi. (units (unknown) date) unknown) (unknown) (no (unknown) (unknown) recently. Patient (units (unknown) date) states she got unknown) tangled up with the [employer] walking her dog (unknown) (no (unknown) (unknown) removed and placed (units (unknown) date) in a gown. Left leg unknown) is slightly shortened and externally (unknown) (no (unknown) (unknown) respiratory (units (un known) date) distress and unknown) breathing and speaking with ease (unknown) (no (unknown) (unknown) rosuvastatin 20 mg (units (unknown) date) tablet (Crestor) unknown) ##0 11/29/12 (unknown) (no (unknown) (unknown) rotated. 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 O2 saturation likely (unknown) (no (unknown) (unknown) stay at hospital (units (unknown) date) last month for a unknown) heart attack she states. No surgeries were (unknown) (no (unknown) (unknown) strong pedal pulse (units (unknown) date) with light touch unknown) intact to foot and toes. Nontender ankle (unknown) (no (unknown) (unknown) substance use (units ( unknown) date) type: does not use unknown) (unknown) (no (unknown) (unknown) sulfamethoxazole (units (unknown) date) Allergy Verified unknown) 03/23/22 16:34 (unknown) (no (unknown) (unknown) tabs (units (unkno wn) date) unknown) (unknown) (no (unknown) (unknown) today and she fell (units (unknown) date) onto her left hip. unknown) On complains of left hip pain. Denies (unknown) (no (unknown) (unknown) trimethoprim [From (units (unknown) date) Septra] Allergy unknown) Verified 03/23/22 16:34 (unknown) (no (unknown) (unknown) venlafaxine 50 mg (units (unknown) date) tablet 50 mg PO ##0 unknown) 11/29/12 (unknown) (no (unknown) (unknown) with nasal (units (unk nown) date) cannula. No unknown) vasopressors are needed. Patient on 2 L nasal cannula (unknown) (no (unknown) (unknown) x2)-ritonavir 100 (units (unknown) date) mg tablet,dose #30 unknown) ea Result panel 148 (unknown) (no (unknown) (unknown) (no value) (units (unk nown) date) unknown) (unknown) (no (unknown) (unknown) > 60 ml/min (unkno wn) date) (unknown) (no (unknown) (unknown) > 60 ml/min (unkno wn) date) (unknown) (no (unknown) (unknown) < 10 mg/dl (unkno wn) date) (unknown) (no (unknown) (unknown) < 10 mg/dl (unkno wn) date) (unknown) (no (unknown) (unknown) (Clarinex) #20 (units (unknown) date) tabs unknown) (unknown) (no (unknown) (unknown) (Lidoderm) (units (unk nown) date) unknown) (unknown) (no (unknown) (unknown) (Synthroid) (units (un known) date) unknown) (unknown) (no (unknown) (unknown) 0.050 ng/ml (unkno wn) date) (unknown) (no (unknown) (unknown) 0.050 ng/ml (unkno wn) date) (unknown) (no (unknown) (unknown) 0.7 mg/dl (unkno wn) date) (unknown) (no (unknown) (unknown) [id number] (units (unkno wn) date) unknown) (unknown) (no (unknown) (unknown) 1.00 mg/dl (unkno wn) date) (unknown) (no (unknown) (unknown) 1.5 (units (unkno wn) date) unknown) (unknown) (no (unknown) (unknown) 101 mmol/l (unkno wn) date) (unknown) (no (unknown) (unknown) 115 mg/dl (unkno wn) date) (unknown) (no (unknown) (unknown) 115 mg/dl (unkno wn) date) (unknown) (no (unknown) (unknown) 03/23/22 03/23/22 (units (unknown) date) 03/23/22 unknown) Range/Units (unknown) (no (unknown) (unknown) 03/23/22 16:04 (units (unknown) date) unknown) (unknown) (no (unknown) (unknown) 03/23/22 16:12 (units (unknown) date) unknown) (unknown) (no (unknown) (unknown) 03/23/22 16:42 (units (unknown) date) unknown) (unknown) (no (unknown) (unknown) 03/23/22 16:54 (units (unknown) date) unknown) (unknown) (no (unknown) (unknown) 03/23/22 17:03 (units (unknown) date) unknown) (unknown) (no (unknown) (unknown) 03/23/22 17:07 (units (unknown) date) unknown) (unknown) (no (unknown) (unknown) 03/23/22 17:08 (units (unknown) date) unknown) (unknown) (no (unknown) (unknown) 03/23/22 (units (unkno wn) date) Range/Units unknown) (unknown) (no (unknown) (unknown) 03/23/22 (units (unkno wn) date) unknown) (unknown) (no (unknown) (unknown) 03/24/22 05:00 (units (unknown) date) unknown) (unknown) (no (unknown) (unknown) 03/25/22 05:00 (units (unknown) date) unknown) (unknown) (no (unknown) (unknown) 03/26/22 05:00 (units (unknown) date) unknown) (unknown) (no (unknown) (unknown) [address] (units (unknown) date) unknown) (unknown) (no (unknown) (unknown) 135 mmol/l (unkno wn) date) (unknown) (no (unknown) (unknown) 15:47 03/23/22 (units (unknown) date) unknown) (unknown) (no (unknown) (unknown) 15:59 03/23/22 (units (unknown) date) unknown) (unknown) (no (unknown) (unknown) 16:00 03/23/22 (units (unknown) date) unknown) (unknown) (no (unknown) (unknown) 16:00 (units (unkno wn) date) unknown) (unknown) (no (unknown) (unknown) 16:04 03/23/22 (units (unknown) date) unknown) (unknown) (no (unknown) (unknown) 16:04 (units (unkno wn) date) unknown) (unknown) (no (unknown) (unknown) 16:05 03/23/22 (units (unknown) date) unknown) (unknown) (no (unknown) (unknown) 16:10 (units (unkno wn) date) unknown) (unknown) (no (unknown) (unknown) 16:12 16:12 16:12 (units (unknown) date) unknown) (unknown) (no (unknown) (unknown) 16:12 (units (unkno wn) date) unknown) (unknown) (no (unknown) (unknown) 16:15 03/23/22 (units (unknown) date) unknown) (unknown) (no (unknown) (unknown) 16:17 03/23/22 (units (unknown) date) unknown) (unknown) (no (unknown) (unknown) 16:17 (units (unkno wn) date) unknown) (unknown) (no (unknown) (unknown) 16:20 03/23/22 (units (unknown) date) unknown) (unknown) (no (unknown) (unknown) 16:25 03/23/22 (units (unknown) date) unknown) (unknown) (no (unknown) (unknown) 16:25 (units (unkno wn) date) unknown) (unknown) (no (unknown) (unknown) 16:29 03/23/22 (units (unknown) date) unknown) (unknown) (no (unknown) (unknown) 16:30 (units (unkno wn) date) unknown) (unknown) (no (unknown) (unknown) 2.5 g/dl (unkno wn) date) (unknown) (no (unknown) (unknown) 25 mg/dl (unkno wn) date) (unknown) (no (unknown) (unknown) 25.0 (units (unkno wn) date) unknown) (unknown) (no (unknown) (unknown) 26 mmol/l (unkno wn) date) (unknown) (no (unknown) (unknown) 3.7 g/dl (unkno wn) date) (unknown) (no (unknown) (unknown) 3.7 mmol/l (unkno wn) date) (unknown) (no (unknown) (unknown) 30 iu/l (unkno wn) date) (unknown) (no (unknown) (unknown) 32 iu/l (unkno wn) date) (unknown) (no (unknown) (unknown) 6.2 g/dl (unkno wn) date) (unknown) (no (unknown) (unknown) 8.8 mg/dl (unkno wn) date) (unknown) (no (unknown) (unknown) 88 u/l (unkno wn) date) (unknown) (no (unknown) (unknown) 88 u/l (unkno wn) date) (unknown) (no (unknown) (unknown) ? (units (unkno wn) date) unknown) (unknown) (no (unknown) (unknown) ALT (<35) IU/L (units (unknown) date) unknown) (unknown) (no (unknown) (unknown) ALT 30 (<35) IU/L (units (unknown) date) unknown) (unknown) (no (unknown) (unknown) APTT (26-36) (units (u nknown) date) SECONDS unknown) (unknown) (no (unknown) (unknown) APTT 36 (26-36) (units (unknown) date) SECONDS unknown) (unknown) (no (unknown) (unknown) AST (14-36) IU/L (units (unknown) date) unknown) (unknown) (no (unknown) (unknown) AST 32 (14-36) (units (unknown) date) IU/L unknown) (unknown) (no (unknown) (unknown) Able to extend the (units (unknown) date) left knee fully. unknown) (unknown) (no (unknown) (unknown) Accession Number: (units (unknown) date) [id number] ?? unknown) (unknown) (no (unknown) (unknown) Accession Number: (units (unknown) date) [id number] ?? unknown) (unknown) (no (unknown) (unknown) Acct:[id number] (units (unknown) date) unknown) (unknown) (no (unknown) (unknown) Acetaminophen (units ( unknown) date) (Acetaminophen 325 unknown) Mg Tablet) 650 mg PO Q6H PRN (unknown) (no (unknown) (unknown) Admin: 03/23/22 (units (unknown) date) 16:10 Dose: 1,000 unknown) mls/hr (unknown) (no (unknown) (unknown) Admit Date/Time: (units (unknown) date) 03/23/22 17:05 unknown) (unknown) (no (unknown) (unknown) Admit Provider: (units (unknown) date) Heraclio Mckeon unknown) (unknown) (no (unknown) (unknown) Age/Sex: 72 / F (units (unknown) date) unknown) (unknown) (no (unknown) (unknown) Albumin (3.5-5.0) (units (unknown) date) g/dL unknown) (unknown) (no (unknown) (unknown) Albumin 3.7 (units (un known) date) (3.5-5.0) g/dL unknown) (unknown) (no (unknown) (unknown) Albumin/Globulin (units (unknown) date) Ratio (1.0-2.8) unknown) (unknown) (no (unknown) (unknown) Albumin/Globulin (units (unknown) date) Ratio 1.5 (1.0-2.8) unknown) (unknown) (no (unknown) (unknown) Alkaline (units (unkno wn) date) Phosphatase unknown) (38-126) U/L (unknown) (no (unknown) (unknown) Alkaline (units (unkno wn) date) Phosphatase 88 unknown) (38-126) U/L (unknown) (no (unknown) (unknown) Allergies (units (unkn own) date) unknown) (unknown) (no (unknown) (unknown) Allergy/AdvReac (units (unknown) date) Type Severity unknown) Reaction Status Date / Time (unknown) (no (unknown) (unknown) [place] (units ( unknown) date) [address] unknown) (unknown) (no (unknown) (unknown) Appropriate for (units (unknown) date) admission. Patient unknown) will need surgical intervention for her hip (unknown) (no (unknown) (unknown) Approved by: Kieran (units (unknown) date) Dedrick Mata on unknown) 03/23/2022 at 16:50 ? (unknown) (no (unknown) (unknown) Approved by: Kieran (units (unknown) date) Dedrick Mata on unknown) 03/23/2022 at 16:51 ? (unknown) (no (unknown) (unknown) BACK: No flank (units (unknown) date) tenderness. unknown) (unknown) (no (unknown) (unknown) BMP [Basic (units (unk nown) date) Metabolic Panel] unknown) DAILY (unknown) (no (unknown) (unknown) BUN (7-17) mg/dL (units (unknown) date) unknown) (unknown) (no (unknown) (unknown) BUN 25 H (7-17) (units (unknown) date) mg/dL unknown) (unknown) (no (unknown) (unknown) BUN/Creatinine (units (unknown) date) Ratio (6-22) unknown) (unknown) (no (unknown) (unknown) BUN/Creatinine (units (unknown) date) Ratio 25.0 H (6-22) unknown) (unknown) (no (unknown) (unknown) Baso # (Auto) (units ( unknown) date) (0-100) /uL unknown) (unknown) (no (unknown) (unknown) Baso # (Auto) 100 (units (unknown) date) (0-100) /uL unknown) (unknown) (no (unknown) (unknown) Baso % (Auto) (units ( unknown) date) (0-2) % unknown) (unknown) (no (unknown) (unknown) Baso % (Auto) 0.8 (units (unknown) date) (0-2) % unknown) (unknown) (no (unknown) (unknown) Bilateral hip (units ( unknown) date) unknown) (unknown) (no (unknown) (unknown) Blood Pressure (units (unknown) date) 108/55 L unknown) (unknown) (no (unknown) (unknown) Blood Pressure (units (unknown) date) 67/41 L 03/23/22 unknown) 15:47 (unknown) (no (unknown) (unknown) Blood Pressure (units (unknown) date) 67/41 L 91/47 L unknown) (unknown) (no (unknown) (unknown) Blood Pressure (units (unknown) date) 90/44 L 97/49 L unknown) (unknown) (no (unknown) (unknown) Blood Pressure (units (unknown) date) 91/45 L unknown) (unknown) (no (unknown) (unknown) Blood Pressure (units (unknown) date) 94/48 L unknown) (unknown) (no (unknown) (unknown) Blood Pressure (units (unknown) date) 98/48 L unknown) (unknown) (no (unknown) (unknown) Blood pressure and (units (unknown) date) O2 saturation noted unknown) by triage notes. Patient denies any (unknown) (no (unknown) (unknown) Bones and chest (units (unknown) date) wall:? No unknown) suspicious bony lesions.? Overlying soft tissues (unknown) (no (unknown) (unknown) Bones:? Acute (units ( unknown) date) fracture through unknown) subcapital region of left femoral neck is seen (unknown) (no (unknown) (unknown) CARDIOVASCULAR: (units (unknown) date) Regular rate and unknown) rhythm without murmurs (unknown) (no (unknown) (unknown) CARDIOVASCULAR: (units (unknown) date) negative chest unknown) pain, palpitations (unknown) (no (unknown) (unknown) CBC Auto Diff (units ( unknown) date) [Complete Blood unknown) Count AUTO DIFF] DAILY (unknown) (no (unknown) (unknown) CK-MB (CK-2) Rel (units (unknown) date) Index TNP unknown) (unknown) (no (unknown) (unknown) CK-MB (CK-2) Rel (units (unknown) date) Index unknown) (unknown) (no (unknown) (unknown) CK-MB (CK-2) TNP (units (unknown) date) unknown) (unknown) (no (unknown) (unknown) CK-MB (CK-2) (units (u nknown) date) unknown) (unknown) (no (unknown) (unknown) COMPARISON:? (units (u nknown) date) [facility], unknown) CR, HIP 2V LEFT, 09/26/2007, 12:14. (unknown) (no (unknown) (unknown) COMPARISON:? (units (u nknown) date) [facility], unknown) CR, XR CHEST 2V, 01/18/2022, 17:05. (unknown) (no (unknown) (unknown) COVID19 -Nasal (units (unknown) date) RAPID/Pre-Proc Stat unknown) (unknown) (no (unknown) (unknown) Calcium (8.4-10.2) (units (unknown) date) mg/dL unknown) (unknown) (no (unknown) (unknown) Calcium 8.8 (units (un known) date) (8.4-10.2) mg/dL unknown) (unknown) (no (unknown) (unknown) Carbon Dioxide (units (unknown) date) (22-32) mmol/L unknown) (unknown) (no (unknown) (unknown) Carbon Dioxide 26 (units (unknown) date) (22-32) mmol/L unknown) (unknown) (no (unknown) (unknown) Chest x-ray: (units (u nknown) date) unknown) (unknown) (no (unknown) (unknown) Chief Complaint: (units (unknown) date) Trauma unknown) (unknown) (no (unknown) (unknown) Chloride (98-107) (units (unknown) date) mmol/L unknown) (unknown) (no (unknown) (unknown) Chloride 101 (units (u nknown) date) (98-107) mmol/L unknown) (unknown) (no (unknown) (unknown) Clinical (units (unkno wn) date) Impression: unknown) (unknown) (no (unknown) (unknown) Closed hip (units (unk nown) date) fracture unknown) (unknown) (no (unknown) (unknown) Complete Blood (units (unknown) date) Count AUTO DIFF unknown) Stat (unknown) (no (unknown) (unknown) Comprehensive (units ( unknown) date) Metabolic Panel unknown) Stat (unknown) (no (unknown) (unknown) Consult to (units (unk nown) date) Discharge Planning unknown) Routine (unknown) (no (unknown) (unknown) Consult to (units (unk nown) date) Orthopedic Surgery unknown) Stat (unknown) (no (unknown) (unknown) Consultation #1: (units (unknown) date) unknown) (unknown) (no (unknown) (unknown) Consultation #2: (units (unknown) date) unknown) (unknown) (no (unknown) (unknown) Consultations (units ( unknown) date) unknown) (unknown) (no (unknown) (unknown) Course Narrative: (units (unknown) date) unknown) (unknown) (no (unknown) (unknown) Course (units (unkno wn) date) unknown) (unknown) (no (unknown) (unknown) Creatinine (units (unk nown) date) (0.52-1.04) mg/dL unknown) (unknown) (no (unknown) (unknown) Creatinine 1.00 (units (unknown) date) (0.52-1.04) mg/dL unknown) (unknown) (no (unknown) (unknown) : 1950 (units (unknown) date) Acct:[id number] unknown) (unknown) (no (unknown) (unknown) : 1950 (units (unknown) date) unknown) (unknown) (no (unknown) (unknown) Date of Service: (units (unknown) date) 03/23/22 unknown) (unknown) (no (unknown) (unknown) Decision to Admit (units (unknown) date) Date: 03/23/22 unknown) (unknown) (no (unknown) (unknown) Decision to Admit (units (unknown) date) time: 16:08 unknown) (unknown) (no (unknown) (unknown) Departure (units (unkn own) date) unknown) (unknown) (no (unknown) (unknown) Dictated by: Kieran (units (unknown) date) Dedrick Mata on unknown) 03/23/2022 at 16:50 ? ? (unknown) (no (unknown) (unknown) Differential (units (u nknown) date) Diagnosis unknown) (unknown) (no (unknown) (unknown) Differential (units (u nknown) date) diagnosis: Likely unknown) other (Hip contusion hip fracture hip (unknown) (no (unknown) (unknown) Discharge Plan (units (unknown) date) unknown) (unknown) (no (unknown) (unknown) Discontinued (units (u nknown) date) Medications unknown) (unknown) (no (unknown) (unknown) Documented By: KB (units (unknown) date) unknown) (unknown) (no (unknown) (unknown) Documented By: RB (units (unknown) date) unknown) (unknown) (no (unknown) (unknown) ECG Data (units (unkno wn) date) unknown) (unknown) (no (unknown) (unknown) ED Orders (units (unkn own) date) unknown) (unknown) (no (unknown) (unknown) EKG-12 Lead Stat (units (unknown) date) unknown) (unknown) (no (unknown) (unknown) ENT: Mucous (units (un known) date) membranes moist. unknown) (unknown) (no (unknown) (unknown) ER Physician: (units ( unknown) date) Liam Colón MD unknown) (unknown) (no (unknown) (unknown) EXTREMITIES: (units (u nknown) date) Tenderness to the unknown) left hip. There is shortening slightly of the (unknown) (no (unknown) (unknown) EYES: Pupils equal (units (unknown) date) round No scleral unknown) icterus. (unknown) (no (unknown) (unknown) Emergency Report (units (unknown) date) unknown) (unknown) (no (unknown) (unknown) Eos # (Auto) (units (u nknown) date) (0-450) /uL unknown) (unknown) (no (unknown) (unknown) Eos # (Auto) 200 (units (unknown) date) (0-450) /uL unknown) (unknown) (no (unknown) (unknown) Eos % (Auto) (2-4) (units (unknown) date) % unknown) (unknown) (no (unknown) (unknown) Eos % (Auto) 1.9 L (units (unknown) date) (2-4) % unknown) (unknown) (no (unknown) (unknown) Estimated GFR > 60 (units (unknown) date) (>60) mL/min unknown) (unknown) (no (unknown) (unknown) Estimated GFR (units ( unknown) date) (>60) mL/min unknown) (unknown) (no (unknown) (unknown) Ethanol (ETOH) (units (unknown) date) Stat unknown) (unknown) (no (unknown) (unknown) Ethyl Alcohol < 10 (units (unknown) date) ( - 10) mg/dL unknown) (unknown) (no (unknown) (unknown) Ethyl Alcohol ( - (units (unknown) date) 10) mg/dL unknown) (unknown) (no (unknown) (unknown) Exam Narrative: (units (unknown) date) unknown) (unknown) (no (unknown) (unknown) Exam (units (unkno wn) date) unknown) (unknown) (no (unknown) (unknown) Extremity x-ray (units (unknown) date) #1: unknown) (unknown) (no (unknown) (unknown) FINDINGS:? (units (unk nown) date) unknown) (unknown) (no (unknown) (unknown) Fibromyalgia (units (u nknown) date) unknown) (unknown) (no (unknown) (unknown) Furosemide (units () date) (Furosemide 20 Mg/2 unknown) Ml Vial) 20 mg IV NOW ONE (unknown) (no (unknown) (unknown) GASTROINTESTINAL: (units (unknown) date) Abdomen soft, unknown) non-tender (unknown) (no (unknown) (unknown) GASTROINTESTINAL: (units (unknown) date) negative nausea, unknown) vomiting, abdominal pain (unknown) (no (unknown) (unknown) GENERAL: in no (units (unknown) date) distress, not toxic unknown) not dyspneic (unknown) (no (unknown) (unknown) GENERAL: negative (units (unknown) date) chills, positive unknown) fatigue, malaise, negative fever, sweats. (unknown) (no (unknown) (unknown) : negative (units (u nknown) date) dysuria, frequency, unknown) hematuria (unknown) (no (unknown) (unknown) General (units (unkno wn) date) unknown) (unknown) (no (unknown) (unknown) Globulin (1.7-4.1) (units (unknown) date) g/dL unknown) (unknown) (no (unknown) (unknown) Globulin 2.5 (units (u nknown) date) (1.7-4.1) g/dL unknown) (unknown) (no (unknown) (unknown) Glucosamine (units (un known) date) Sulfate unknown) (GLUCOSAMINE) ##0 11/29/12 (unknown) (no (unknown) (unknown) Glucose (80-110) (units (unknown) date) mg/dL unknown) (unknown) (no (unknown) (unknown) Glucose 115 H (units ( unknown) date) (80-110) mg/dL unknown) (unknown) (no (unknown) (unknown) HEAD: (units (unkno wn) date) Normocephalic. unknown) (unknown) (no (unknown) (unknown) HEENT: negative (units (unknown) date) sinus pain, ear unknown) pain, sore throat (unknown) (no (unknown) (unknown) HPI - Fall (units (unk nown) date) unknown) (unknown) (no (unknown) (unknown) HPI Narrative: (units (unknown) date) unknown) (unknown) (no (unknown) (unknown) Hct (36-46) % (units ( unknown) date) unknown) (unknown) (no (unknown) (unknown) Hct 34.5 L (36-46) (units (unknown) date) % unknown) (unknown) (no (unknown) (unknown) Hgb (12.0-16.0) (units (unknown) date) g/dL unknown) (unknown) (no (unknown) (unknown) Hgb 11.5 L (units (unk nown) date) (12.0-16.0) g/dL unknown) (unknown) (no (unknown) (unknown) History of Present (units (unknown) date) Illness unknown) (unknown) (no (unknown) (unknown) Home Medications (units (unknown) date) unknown) (unknown) (no (unknown) (unknown) Hospitalist to (units (unknown) date) admit unknown) (unknown) (no (unknown) (unknown) Hydromorphone HCl (units (unknown) date) (Hydromorphone 0.5 unknown) Mg Inj) 0.5 mg IV Q4H PRN (unknown) (no (unknown) (unknown) Hypertension (units (u nknown) date) unknown) (unknown) (no (unknown) (unknown) Hypothyroidism (units (unknown) date) unknown) (unknown) (no (unknown) (unknown) IMPRESSION:? Acute (units (unknown) date) displaced left unknown) femoral neck fracture as above.? (unknown) (no (unknown) (unknown) IMPRESSION:? (units (u nknown) date) Cardiomegaly and unknown) mild congestion.? No focal infiltrate or (unknown) (no (unknown) (unknown) INDICATIONS:? HIP (units (unknown) date) PAIN AFTER FALL unknown) (unknown) (no (unknown) (unknown) INDICATIONS:? fall (units (unknown) date) pain unknown) (unknown) (no (unknown) (unknown) INR (0.9-1.3) (units ( unknown) date) unknown) (unknown) (no (unknown) (unknown) INR 1.2 (0.9-1.3) (units (unknown) date) unknown) (unknown) (no (unknown) (unknown) Imaging Data (units (u nknown) date) unknown) (unknown) (no (unknown) (unknown) Initial Vital (units ( unknown) date) Signs unknown) (unknown) (no (unknown) (unknown) Initial Vital (units ( unknown) date) Signs: unknown) (unknown) (no (unknown) (unknown) Interpretation: (units (unknown) date) unknown) (unknown) (no (unknown) (unknown) [facility] (units (unknown) date) [address] unknown) [place] [address] (unknown) (no (unknown) (unknown) [facility] (units (unknown) date) unknown) (unknown) (no (unknown) (unknown) Lab Data (units (unkno wn) date) unknown) (unknown) (no (unknown) (unknown) Lab Results (units (un known) date) unknown) (unknown) (no (unknown) (unknown) Labs: (units (unkno wn) date) unknown) (unknown) (no (unknown) (unknown) Last Infusion: (units (unknown) date) 03/23/22 16:33 unknown) Dose: 0 mls/hr (unknown) (no (unknown) (unknown) Loc: ED (units (unkno wn) date) unknown) (unknown) (no (unknown) (unknown) Lungs and pleura:? (units (unknown) date) Mild pulmonary unknown) vascular congestion is seen.? No definite (unknown) (no (unknown) (unknown) Lymph # (Auto) (units (unknown) date) ([phone]) /uL unknown) (unknown) (no (unknown) (unknown) Lymph # (Auto) (units (unknown) date) 2000 ([phone]) unknown) /uL (unknown) (no (unknown) (unknown) Lymph % (Auto) (units (unknown) date) (25-40) % unknown) (unknown) (no (unknown) (unknown) Lymph % (Auto) (units (unknown) date) 19.6 L (25-40) % unknown) (unknown) (no (unknown) (unknown) MCH (26-34) PG (units (unknown) date) unknown) (unknown) (no (unknown) (unknown) MCH 29.0 (26-34) (units (unknown) date) PG unknown) (unknown) (no (unknown) (unknown) MCHC (30-36) % (units (unknown) date) unknown) (unknown) (no (unknown) (unknown) MCHC 33.2 (30-36) (units (unknown) date) % unknown) (unknown) (no (unknown) (unknown) MCV (80-100) fL (units (unknown) date) unknown) (unknown) (no (unknown) (unknown) MCV 87.4 (80-100) (units (unknown) date) fL unknown) (unknown) (no (unknown) (unknown) MDM - Fall (units (unk nown) date) unknown) (unknown) (no (unknown) (unknown) MDM Narrative (units ( unknown) date) unknown) (unknown) (no (unknown) (unknown) MR#: [id number] (units (unknown) date) unknown) (unknown) (no (unknown) (unknown) MUSCULOSKELETAL: (units (unknown) date) Positive muscle or unknown) bony pain (unknown) (no (unknown) (unknown) Magnesium (units (unkn own) date) (1.6-2.3) mg/dL unknown) (unknown) (no (unknown) (unknown) Magnesium 1.9 (units ( unknown) date) (1.6-2.3) mg/dL unknown) (unknown) (no (unknown) (unknown) Magnesium Urgent (units (unknown) date) unknown) (unknown) (no (unknown) (unknown) Mediastinum:? (units ( unknown) date) Mediastinal unknown) contours appear normal.? Heart size is enlarged.? (unknown) (no (unknown) (unknown) Medical History (units (unknown) date) (Reviewed 03/23/22 unknown) @ 16:07 by Liam Colón MD) (unknown) (no (unknown) (unknown) Medical decision (units (unknown) date) making narrative: unknown) (unknown) (no (unknown) (unknown) Medication (units (unk nown) date) Instructions unknown) Recorded Confirmed (unknown) (no (unknown) (unknown) Medication (units (unk nown) date) Instructions unknown) Recorded (unknown) (no (unknown) (unknown) Melatonin (units (unkn own) date) (Melatonin 3 Mg unknown) Tablet) 6 mg PO BEDTIME PRN (unknown) (no (unknown) (unknown) [place] # (Auto) (units ( unknown) date) (0-900) /uL unknown) (unknown) (no (unknown) (unknown) [place] # (Auto) 800 (units (unknown) date) (0-900) /uL unknown) (unknown) (no (unknown) (unknown) [place] % (Auto) (units ( unknown) date) (3-14) % unknown) (unknown) (no (unknown) (unknown) [place] % (Auto) 7.6 (units (unknown) date) (3-14) % unknown) (unknown) (no (unknown) (unknown) NECK: Trachea (units ( unknown) date) midline. unknown) (unknown) (no (unknown) (unknown) NEURO: AOx4. (units (u nknown) date) unknown) (unknown) (no (unknown) (unknown) NEUROLOGIC: (units (un known) date) negative weakness, unknown) numbness (unknown) (no (unknown) (unknown) Naloxone HCl (units (u nknown) date) (Naloxone 0.4 Mg/Ml unknown) Vial) 0.2 mg IV Q2MIN PRN (unknown) (no (unknown) (unknown) Narrative (units (unkn own) date) unknown) (unknown) (no (unknown) (unknown) Narrative: (units (unk nown) date) unknown) (unknown) (no (unknown) (unknown) Neut # (Auto) (units ( unknown) date) (8183-3890) /uL unknown) (unknown) (no (unknown) (unknown) Neut # (Auto) 7300 (units (unknown) date) H (5849-1721) /uL unknown) (unknown) (no (unknown) (unknown) Neut % (Auto) (units ( unknown) date) (50-75) % unknown) (unknown) (no (unknown) (unknown) Neut % (Auto) 70.1 (units (unknown) date) (50-75) % unknown) (unknown) (no (unknown) (unknown) No new issues (units ( unknown) date) during course of unknown) stay (unknown) (no (unknown) (unknown) No pertinent past (units (unknown) date) surgical history unknown) (unknown) (no (unknown) (unknown) Ordered: (units (unkno wn) date) unknown) (unknown) (no (unknown) (unknown) Ordering Provider: (units (unknown) date) Laim Colón MD unknown) (unknown) (no (unknown) (unknown) Orders (units (unkno wn) date) unknown) (unknown) (no (unknown) (unknown) Oxycodone HCl (units ( unknown) date) (Oxycodone Ir 5 Mg unknown) Tablet) 5 mg PO Q4HR PRN (unknown) (no (unknown) (unknown) Oxygen Delivery (units (unknown) date) Method 03/23/22 unknown) 15:47 (unknown) (no (unknown) (unknown) Oxygen Delivery (units (unknown) date) Method Nasal unknown) Cannula Nasal Cannula Nasal Cannula (unknown) (no (unknown) (unknown) Oxygen Delivery (units (unknown) date) Method Nasal unknown) Cannula (unknown) (no (unknown) (unknown) Oxygen Delivery (units (unknown) date) Method Room Air unknown) (unknown) (no (unknown) (unknown) Oxygen Delivery (units (unknown) date) Method unknown) (unknown) (no (unknown) (unknown) Oxygen Flow Rate 2 (units (unknown) date) 2 2 unknown) (unknown) (no (unknown) (unknown) Oxygen Flow Rate 2 (units (unknown) date) unknown) (unknown) (no (unknown) (unknown) Oxygen Flow Rate (units (unknown) date) unknown) (unknown) (no (unknown) (unknown) PRN Reason: (units (un known) date) Constipation unknown) (unknown) (no (unknown) (unknown) PRN Reason: (units (un known) date) Fever/Mild Pain unknown) (1-3) (unknown) (no (unknown) (unknown) PRN Reason: (units (un known) date) Insomnia unknown) (unknown) (no (unknown) (unknown) PRN Reason: Opiate (units (unknown) date) Reversal unknown) (unknown) (no (unknown) (unknown) PRN Reason: Pain, (units (unknown) date) Moderate (4-6) unknown) (unknown) (no (unknown) (unknown) PRN (units (unkno wn) date) unknown) (unknown) (no (unknown) (unknown) PROCEDURE:? XR (units (unknown) date) CHEST 1V unknown) (unknown) (no (unknown) (unknown) PROCEDURE:? XR HIP (units (unknown) date) W PEL IF DONE LT 2V unknown) (unknown) (no (unknown) (unknown) PSYCH: Not (units (unk nown) date) anxious, is unknown) cooperative (unknown) (no (unknown) (unknown) PT (10.1-12.7) (units (unknown) date) SECONDS unknown) (unknown) (no (unknown) (unknown) PT 14.2 H (units (unkn own) date) (10.1-12.7) SECONDS unknown) (unknown) (no (unknown) (unknown) Partial (units (unkno wn) date) Thromboplastin Time unknown) Stat (unknown) (no (unknown) (unknown) Patient (units (unkno wn) date) Disposition: unknown) Admitted As Inpatient (unknown) (no (unknown) (unknown) Patient History (units (unknown) date) unknown) (unknown) (no (unknown) (unknown) Patient: (units (unkno wn) date) Elidia Rock unknown) MR#: [id number] (unknown) (no (unknown) (unknown) Patient: (units (unkno wn) date) Elidia Rock unknown) (unknown) (no (unknown) (unknown) Plt Count (units (unkn own) date) (150-400) X103/uL unknown) (unknown) (no (unknown) (unknown) Plt Count 290 (units ( unknown) date) (150-400) X103/uL unknown) (unknown) (no (unknown) (unknown) Polyethylene (units (u nknown) date) Glycol unknown) (Polyethylene Glycol 3350 17 Gm Powd.Pack) 17 gm PO DAILY (unknown) (no (unknown) (unknown) Potassium (units (unkn own) date) (3.4-5.1) mmol/L unknown) (unknown) (no (unknown) (unknown) Potassium 3.7 (units ( unknown) date) (3.4-5.1) mmol/L unknown) (unknown) (no (unknown) (unknown) Previous Rx's (units ( unknown) date) unknown) (unknown) (no (unknown) (unknown) Procedure: XR (units ( unknown) date) chest 1V unknown) (unknown) (no (unknown) (unknown) Procedure: XR hip (units (unknown) date) w pel if done LT 2V unknown) (unknown) (no (unknown) (unknown) Prothrombin Time (units (unknown) date) INR Stat unknown) (unknown) (no (unknown) (unknown) Pulse Oximetry 84 (units (unknown) date) L 03/23/22 15:47 unknown) (unknown) (no (unknown) (unknown) Pulse Oximetry 84 (units (unknown) date) L 82 L unknown) (unknown) (no (unknown) (unknown) Pulse Oximetry 84 (units (unknown) date) L 94 unknown) (unknown) (no (unknown) (unknown) Pulse Oximetry 86 (units (unknown) date) L 82 L unknown) (unknown) (no (unknown) (unknown) Pulse Oximetry 92 (units (unknown) date) 88 L unknown) (unknown) (no (unknown) (unknown) Pulse Oximetry 94 (units (unknown) date) unknown) (unknown) (no (unknown) (unknown) Pulse Oximetry 97 (units (unknown) date) 95 unknown) (unknown) (no (unknown) (unknown) Pulse Rate 59 L 59 (units (unknown) date) L unknown) (unknown) (no (unknown) (unknown) Pulse Rate 59 L (units (unknown) date) unknown) (unknown) (no (unknown) (unknown) Pulse Rate 60 59 L (units (unknown) date) unknown) (unknown) (no (unknown) (unknown) Pulse Rate 64 (units ( unknown) date) 03/23/22 15:47 unknown) (unknown) (no (unknown) (unknown) Pulse Rate 64 65 (units (unknown) date) unknown) (unknown) (no (unknown) (unknown) Pulse Rate 64 66 (units (unknown) date) unknown) (unknown) (no (unknown) (unknown) Pulse Rate 65 59 L (units (unknown) date) unknown) (unknown) (no (unknown) (unknown) RBC (4.0-5.2) (units ( unknown) date) X106/uL unknown) (unknown) (no (unknown) (unknown) RBC 3.95 L (units (unk nown) date) (4.0-5.2) X106/uL unknown) (unknown) (no (unknown) (unknown) RDW (11.6-14.8) % (units (unknown) date) unknown) (unknown) (no (unknown) (unknown) RDW 14.3 (units (unkno wn) date) (11.6-14.8) % unknown) (unknown) (no (unknown) (unknown) RESPIRATORY: Clear (units (unknown) date) to auscultation. unknown) Breath sounds equal bilaterally. No wheezes, (unknown) (no (unknown) (unknown) RESPIRATORY: (units (u nknown) date) negative dyspnea, unknown) cough (unknown) (no (unknown) (unknown) ROS Unobtainable: (units (unknown) date) All systems unknown) reviewed + are unremarkable except as noted in HPI (unknown) (no (unknown) (unknown) Radiologist's (units ( unknown) date) Impression: unknown) (unknown) (no (unknown) (unknown) Reevaluation #1: (units (unknown) date) unknown) (unknown) (no (unknown) (unknown) Reevaluation(s) (units (unknown) date) unknown) (unknown) (no (unknown) (unknown) Related Data (units (u nknown) date) unknown) (unknown) (no (unknown) (unknown) Respiratory Rate (units (unknown) date) 18 03/23/22 15:47 unknown) (unknown) (no (unknown) (unknown) Respiratory Rate (units (unknown) date) 18 22 unknown) (unknown) (no (unknown) (unknown) Respiratory Rate (units (unknown) date) 21 unknown) (unknown) (no (unknown) (unknown) Respiratory Rate (units (unknown) date) 26 H 35 H unknown) (unknown) (no (unknown) (unknown) Respiratory Rate (units (unknown) date) 33 H 27 H unknown) (unknown) (no (unknown) (unknown) Respiratory Rate (units (unknown) date) 36 H 39 H unknown) (unknown) (no (unknown) (unknown) Respiratory Rate (units (unknown) date) 39 H 31 H unknown) (unknown) (no (unknown) (unknown) Restrictive lung (units (unknown) date) disease unknown) (unknown) (no (unknown) (unknown) Result diagrams: (units (unknown) date) unknown) (unknown) (no (unknown) (unknown) Review of Systems (units (unknown) date) unknown) (unknown) (no (unknown) (unknown) SKIN: Warm and dry (units (unknown) date) unknown) (unknown) (no (unknown) (unknown) SKIN: negative (units (unknown) date) rash, skin lesions unknown) (unknown) (no (unknown) (unknown) Sennosides (units (unk nown) date) (Sennosides 8.6 Mg unknown) Tablet) 8.6 mg PO BID PRN (unknown) (no (unknown) (unknown) Signed By: (units (unk nown) date) unknown) (unknown) (no (unknown) (unknown) Signed (units (unkno wn) date) unknown) (unknown) (no (unknown) (unknown) Sinus rhythm rate (units (unknown) date) [address] elevation unknown) or depression (unknown) (no (unknown) (unknown) Smoking Status: (units (unknown) date) Former smoker unknown) (unknown) (no (unknown) (unknown) Social History (units (unknown) date) (Reviewed 03/23/22 unknown) @ 16:07 by Liam Colón MD) (unknown) (no (unknown) (unknown) Sodium (137-145) (units (unknown) date) mmol/L unknown) (unknown) (no (unknown) (unknown) Sodium 135 L (units (u nknown) date) (137-145) mmol/L unknown) (unknown) (no (unknown) (unknown) Sodium Chloride (units (unknown) date) (Normal Saline unknown) 0.9%) 1,000 mls @ 1,000 mls/hr IV BOLUS ONE (unknown) (no (unknown) (unknown) Soft tissues:? The (units (unknown) date) visualized bowel unknown) gas pattern is normal.? No suspicious soft (unknown) (no (unknown) (unknown) Spoke with (units (unk nown) date) hospitalist, unknown) Mike, he will admit, however patient will need (unknown) (no (unknown) (unknown) Spoke with (units (unk nown) date) orthopedics, unknown) lili, will need to do surgery on the hip. (unknown) (no (unknown) (unknown) Stated Complaint: (units (unknown) date) hip pain unknown) (unknown) (no (unknown) (unknown) Stop: 03/23/22 (units (unknown) date) 17:02 unknown) (unknown) (no (unknown) (unknown) Stop: 03/23/22 (units (unknown) date) 17:09 unknown) (unknown) (no (unknown) (unknown) Substance Use (units ( unknown) date) Type: marijuana unknown) (unknown) (no (unknown) (unknown) Surgical History (units (unknown) date) (Reviewed 03/23/22 unknown) @ 16:07 by Liam Colón MD) (unknown) (no (unknown) (unknown) Surgical changes (units (unknown) date) and devices:? unknown) Surgical clips are seen in right hilar region.? (unknown) (no (unknown) (unknown) TECHNIQUE:? AP (units (unknown) date) pelvis with lateral unknown) view(s) of the left hip(s).? (unknown) (no (unknown) (unknown) TECHNIQUE:? One (units (unknown) date) view of the chest unknown) was acquired.? (unknown) (no (unknown) (unknown) Temperature 98.4 F (units (unknown) date) 03/23/22 15:47 unknown) (unknown) (no (unknown) (unknown) Temperature 98.4 F (units (unknown) date) unknown) (unknown) (no (unknown) (unknown) Temperature (units (un known) date) unknown) (unknown) (no (unknown) (unknown) Test not performed % (unknown) date) (unknown) (no (unknown) (unknown) Test not performed % (unknown) date) (unknown) (no (unknown) (unknown) Test not performed ng/ml (unknown) date) (unknown) (no (unknown) (unknown) Test not performed ng/ml (unknown) date) (unknown) (no (unknown) (unknown) There is (units (unkno wn) date) unknown) (unknown) (no (unknown) (unknown) Time Seen by (units (u nknown) date) Provider: 03/23/22 unknown) 16:03 (unknown) (no (unknown) (unknown) Time: 16:45 (units (un known) date) unknown) (unknown) (no (unknown) (unknown) Time: 16:50 (units (un known) date) unknown) (unknown) (no (unknown) (unknown) Time: 17:19 (units (un known) date) unknown) (unknown) (no (unknown) (unknown) Total Bilirubin (units (unknown) date) (0.2-1.3) mg/dL unknown) (unknown) (no (unknown) (unknown) Total Bilirubin (units (unknown) date) 0.7 (0.2-1.3) mg/dL unknown) (unknown) (no (unknown) (unknown) Total Creatine (units (unknown) date) Kinase (30-135) U/L unknown) (unknown) (no (unknown) (unknown) Total Creatine (units (unknown) date) Kinase 88 (30-135) unknown) U/L (unknown) (no (unknown) (unknown) Total Protein (units ( unknown) date) (6.3-8.2) g/dL unknown) (unknown) (no (unknown) (unknown) Total Protein 6.2 (units (unknown) date) L (6.3-8.2) g/dL unknown) (unknown) (no (unknown) (unknown) Troponin + CK (units ( unknown) date) Cardiac Panel Stat unknown) (unknown) (no (unknown) (unknown) Updated patient (units (unknown) date) results and will unknown) need surgery. She understands. (unknown) (no (unknown) (unknown) Urine Drug Screen, (units (unknown) date) Rapid Stat unknown) (unknown) (no (unknown) (unknown) Vital Signs - 8 hr (units (unknown) date) unknown) (unknown) (no (unknown) (unknown) Vital Signs (units (un known) date) unknown) (unknown) (no (unknown) (unknown) Vital signs: (units (u nknown) date) unknown) (unknown) (no (unknown) (unknown) WBC (4.5-11.0) (units (unknown) date) X103/uL unknown) (unknown) (no (unknown) (unknown) WBC 10.4 (units (unkno wn) date) (4.5-11.0) X103/uL unknown) (unknown) (no (unknown) (unknown) XR chest 1V Stat (units (unknown) date) unknown) (unknown) (no (unknown) (unknown) XR hip w pel if (units (unknown) date) done LT 2V Stat unknown) (unknown) (no (unknown) (unknown) XRay Report (units (un known) date) unknown) (unknown) (no (unknown) (unknown) [Embedded Image (units (unknown) date) Not Available] unknown) (unknown) (no (unknown) (unknown) [From Septra] (units ( unknown) date) unknown) (unknown) (no (unknown) (unknown) adhesive tape (units ( unknown) date) AdvReac Verified unknown) 03/23/22 16:34 (unknown) (no (unknown) (unknown) alcohol intake (units (unknown) date) frequency: 0-2 unknown) drinks per day (unknown) (no (unknown) (unknown) and below (units (unkn own) date) unknown) (unknown) (no (unknown) (unknown) and doing very (units (unknown) date) well. At this time unknown) uncertain etiology of patient's arrival vital (unknown) (no (unknown) (unknown) and knee. Very (units (unknown) date) painful with unknown) passive or active attempt of moving the left hip. (unknown) (no (unknown) (unknown) any other injury (units (unknown) date) or pain. She is not unknown) on any blood thinners. She did recently (unknown) (no (unknown) (unknown) appear (units (unkno wn) date) unknown) (unknown) (no (unknown) (unknown) calcifications.? (units (unknown) date) unknown) (unknown) (no (unknown) (unknown) capsule,delayed (units (unknown) date) release (Nexium) unknown) (unknown) (no (unknown) (unknown) cardiac clearance (units (unknown) date) and echocardiogram. unknown) (unknown) (no (unknown) (unknown) desloratadine 5 mg (units (unknown) date) tablet 5 mg PO BID unknown) PRN nasal congestion 01/18/22 (unknown) (no (unknown) (unknown) dislocation/dehydr (units (unknown) date) ation) unknown) (unknown) (no (unknown) (unknown) done. She was at a (units (unknown) date) [facility] and unknown) [place]. Patient states she is not eaten or (unknown) (no (unknown) (unknown) drank very much (units (unknown) date) today. Has felt unknown) tired and weak though. 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 Patient in no (unknown) (no (unknown) (unknown) dyspnea or chest (units (unknown) date) pain. Denies any unknown) dizziness. No black or bloody stools (unknown) (no (unknown) (unknown) esomeprazole (units (u nknown) date) magnesium 40 mg 40 unknown) mg PO QDAY ##0 11/29/12 (unknown) (no (unknown) (unknown) extended release (units (unknown) date) 12 hr (Mucinex) unknown) (unknown) (no (unknown) (unknown) femoral (units (unkno wn) date) unknown) (unknown) (no (unknown) (unknown) fluoxetine 40 mg (units (unknown) date) capsule (Prozac) 80 unknown) 1 ##0 11/29/12 (unknown) (no (unknown) (unknown) focal (units (unkno wn) date) unknown) (unknown) (no (unknown) (unknown) fracture. Blood (units (unknown) date) pressure has unknown) improved with IV fluids. O2 saturation improved (unknown) (no (unknown) (unknown) guaifenesin 600 mg (units (unknown) date) tablet, 600 mg PO unknown) BID #20 tabs 01/18/22 (unknown) (no (unknown) (unknown) head..? Pelvic (units (unknown) date) ring appears unknown) intact.? No suspicious bony lesions.? (unknown) (no (unknown) (unknown) infiltrate.? No (units (unknown) date) pleural effusions unknown) or pneumothorax.? (unknown) (no (unknown) (unknown) joint (units (unkno wn) date) osteoarthritic unknown) changes are noted.? No evidence of avascular necrosis of (unknown) (no (unknown) (unknown) ketorolac 10 mg (units (unknown) date) tablet 10 mg PO Q6H unknown) PRN pain #14 tabs 06/07/21 (unknown) (no (unknown) (unknown) left leg and (units (u nknown) date) external rotation unknown) of the foot. Foot is warm soft and pink with (unknown) (no (unknown) (unknown) levothyroxine 125 (units (unknown) date) mcg tablet ##0 unknown) 11/29/12 (unknown) (no (unknown) (unknown) lidocaine 5 % (units ( unknown) date) topical patch 1 unknown) patch topical DAILY #15 ea 06/07/21 (unknown) (no (unknown) (unknown) meloxicam 7.5 mg (units (unknown) date) tablet (Mobic) ##0 unknown) 11/29/12 (unknown) (no (unknown) (unknown) methocarbamol 500 (units (unknown) date) mg tablet 500 mg PO unknown) TID PRN muscle aches #14 01/18/22 (unknown) (no (unknown) (unknown) nirmatrelvir 300 (units (unknown) date) mg (150 mg See Rx unknown) Instructions PO .COMPLEX 01/18/22 (unknown) (no (unknown) (unknown) oxycodone 5 mg (units (unknown) date) tablet (Roxicodone) unknown) 5 mg PO Q4P ##0 08/16/13 (unknown) (no (unknown) (unknown) pack(EUA) (units (unkn own) date) (Paxlovid) unknown) (unknown) (no (unknown) (unknown) pain or dyspnea or (units (unknown) date) palpitations. unknown) Patient placed in bed. Pants shoes socks (unknown) (no (unknown) (unknown) pneumothorax. (units ( unknown) date) unknown) (unknown) (no (unknown) (unknown) pregabalin 100 mg (units (unknown) date) capsule (Lyrica) 1 unknown) Q DAY ##0 11/29/12 (unknown) (no (unknown) (unknown) prior lower (units (un known) date) thoracic spine unknown) vertebral body kyphoplasty. (unknown) (no (unknown) (unknown) rales, or rhonchi. (units (unknown) date) unknown) (unknown) (no (unknown) (unknown) recently. Patient (units (unknown) date) states she got unknown) tangled up with the [employer] walking her dog (unknown) (no (unknown) (unknown) removed and placed (units (unknown) date) in a gown. Left leg unknown) is slightly shortened and externally (unknown) (no (unknown) (unknown) respiratory (units (un known) date) distress and unknown) breathing and speaking with ease (unknown) (no (unknown) (unknown) rosuvastatin 20 mg (units (unknown) date) tablet (Crestor) unknown) ##0 11/29/12 (unknown) (no (unknown) (unknown) rotated. 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 O2 saturation likely (unknown) (no (unknown) (unknown) stay at hospital (units (unknown) date) last month for a unknown) heart attack she states. No surgeries were (unknown) (no (unknown) (unknown) strong pedal pulse (units (unknown) date) with light touch unknown) intact to foot and toes. Nontender ankle (unknown) (no (unknown) (unknown) substance use (units ( unknown) date) type: does not use unknown) (unknown) (no (unknown) (unknown) sulfamethoxazole (units (unknown) date) Allergy Verified unknown) 03/23/22 16:34 (unknown) (no (unknown) (unknown) superior migration (units (unknown) date) of left proximal unknown) femur in relation to femoral head.? (unknown) (no (unknown) (unknown) tabs (units (unkno wn) date) unknown) (unknown) (no (unknown) (unknown) tissue (units (unkno wn) date) unknown) (unknown) (no (unknown) (unknown) today and she fell (units (unknown) date) onto her left hip. unknown) On complains of left hip pain. Denies (unknown) (no (unknown) (unknown) trimethoprim [From (units (unknown) date) Septra] Allergy unknown) Verified 03/23/22 16:34 (unknown) (no (unknown) (unknown) unremarkable.? (units (unknown) date) unknown) (unknown) (no (unknown) (unknown) venlafaxine 50 mg (units (unknown) date) tablet 50 mg PO ##0 unknown) 11/29/12 (unknown) (no (unknown) (unknown) with nasal (units (unk nown) date) cannula. No unknown) vasopressors are needed. Patient on 2 L nasal cannula (unknown) (no (unknown) (unknown) with (units (unkno wn) date) unknown) (unknown) (no (unknown) (unknown) x2)-ritonavir 100 (units (unknown) date) mg tablet,dose #30 unknown) ea Result panel 149 (unknown) (no date) (unknown) (unknown) Negative (units (unkn own) unknown) (unknown) (no date) (unknown) (unknown) Negative (units (unkn own) unknown) Result panel 150 (unknown) (no date) (unknown) (unknown) Negative (units (unkn own) unknown) (unknown) (no date) (unknown) (unknown) Normal (units (unkn own) unknown) (unknown) (no date) (unknown) (unknown) Positive (units (unkn own) unknown) Result panel 151 (unknown) (no (unknown) (unknown) (no value) (units (unk nown) date) unknown) (unknown) (no (unknown) (unknown) (Clarinex) #20 (units (unknown) date) tabs unknown) (unknown) (no (unknown) (unknown) (Lidoderm) (units (unk nown) date) unknown) (unknown) (no (unknown) (unknown) (Synthroid) (units (un known) date) unknown) (unknown) (no (unknown) (unknown) [id number] (units (unkno wn) date) unknown) (unknown) (no (unknown) (unknown) 03/23/22 03/23/22 (units (unknown) date) 03/23/22 unknown) Range/Units (unknown) (no (unknown) (unknown) 03/23/22 03/23/22 (units (unknown) date) Range/Units unknown) (unknown) (no (unknown) (unknown) 03/23/22 16:04 (units (unknown) date) unknown) (unknown) (no (unknown) (unknown) 03/23/22 16:12 (units (unknown) date) unknown) (unknown) (no (unknown) (unknown) 03/23/22 16:42 (units (unknown) date) unknown) (unknown) (no (unknown) (unknown) 03/23/22 16:54 (units (unknown) date) unknown) (unknown) (no (unknown) (unknown) 03/23/22 17:03 (units (unknown) date) unknown) (unknown) (no (unknown) (unknown) 03/23/22 17:07 (units (unknown) date) unknown) (unknown) (no (unknown) (unknown) 03/23/22 (units (unkno wn) date) unknown) (unknown) (no (unknown) (unknown) 03/24/22 05:00 (units (unknown) date) unknown) (unknown) (no (unknown) (unknown) 03/25/22 05:00 (units (unknown) date) unknown) (unknown) (no (unknown) (unknown) 03/26/22 05:00 (units (unknown) date) unknown) (unknown) (no (unknown) (unknown) [address] [place] [address] (units (unknown) date) unknown) (unknown) (no (unknown) (unknown) 15:47 03/23/22 (units (unknown) date) unknown) (unknown) (no (unknown) (unknown) 15:59 03/23/22 (units (unknown) date) unknown) (unknown) (no (unknown) (unknown) 16:00 03/23/22 (units (unknown) date) unknown) (unknown) (no (unknown) (unknown) 16:00 (units (unkno wn) date) unknown) (unknown) (no (unknown) (unknown) 16:04 03/23/22 (units (unknown) date) unknown) (unknown) (no (unknown) (unknown) 16:04 (units (unkno wn) date) unknown) (unknown) (no (unknown) (unknown) 16:05 03/23/22 (units (unknown) date) unknown) (unknown) (no (unknown) (unknown) 16:10 (units (unkno wn) date) unknown) (unknown) (no (unknown) (unknown) 16:12 16:12 16:12 (units (unknown) date) unknown) (unknown) (no (unknown) (unknown) 16:12 16:54 (units (un known) date) unknown) (unknown) (no (unknown) (unknown) 16:15 03/23/22 (units (unknown) date) unknown) (unknown) (no (unknown) (unknown) 16:17 03/23/22 (units (unknown) date) unknown) (unknown) (no (unknown) (unknown) 16:17 (units (unkno wn) date) unknown) (unknown) (no (unknown) (unknown) 16:20 03/23/22 (units (unknown) date) unknown) (unknown) (no (unknown) (unknown) 16:25 03/23/22 (units (unknown) date) unknown) (unknown) (no (unknown) (unknown) 16:25 (units (unkno wn) date) unknown) (unknown) (no (unknown) (unknown) 16:29 03/23/22 (units (unknown) date) unknown) (unknown) (no (unknown) (unknown) 16:30 (units (unkno wn) date) unknown) (unknown) (no (unknown) (unknown) ? (units (unkno wn) date) unknown) (unknown) (no (unknown) (unknown) ALT (<35) IU/L (units (unknown) date) unknown) (unknown) (no (unknown) (unknown) ALT 30 (<35) IU/L (units (unknown) date) unknown) (unknown) (no (unknown) (unknown) APTT (26-36) (units (u nknown) date) SECONDS unknown) (unknown) (no (unknown) (unknown) APTT 36 (26-36) (units (unknown) date) SECONDS unknown) (unknown) (no (unknown) (unknown) AST (14-36) IU/L (units (unknown) date) unknown) (unknown) (no (unknown) (unknown) AST 32 (14-36) (units (unknown) date) IU/L unknown) (unknown) (no (unknown) (unknown) Able to extend the (units (unknown) date) left knee fully. unknown) (unknown) (no (unknown) (unknown) Accession Number: (units (unknown) date) [id number] ?? unknown) (unknown) (no (unknown) (unknown) Accession Number: (units (unknown) date) [id number] ?? unknown) (unknown) (no (unknown) (unknown) Acct:[id number] (units (unknown) date) unknown) (unknown) (no (unknown) (unknown) Acetaminophen (units ( unknown) date) (Acetaminophen 325 unknown) Mg Tablet) 650 mg PO Q6H PRN (unknown) (no (unknown) (unknown) Admin: 03/23/22 (units (unknown) date) 16:10 Dose: 1,000 unknown) mls/hr (unknown) (no (unknown) (unknown) Admit Date/Time: (units (unknown) date) 03/23/22 17:05 unknown) (unknown) (no (unknown) (unknown) Admit Provider: (units (unknown) date) Heraclio Mckeon unknown) (unknown) (no (unknown) (unknown) Age/Sex: 72 / F (units (unknown) date) unknown) (unknown) (no (unknown) (unknown) Albumin (3.5-5.0) (units (unknown) date) g/dL unknown) (unknown) (no (unknown) (unknown) Albumin 3.7 (units (un known) date) (3.5-5.0) g/dL unknown) (unknown) (no (unknown) (unknown) Albumin/Globulin (units (unknown) date) Ratio (1.0-2.8) unknown) (unknown) (no (unknown) (unknown) Albumin/Globulin (units (unknown) date) Ratio 1.5 (1.0-2.8) unknown) (unknown) (no (unknown) (unknown) Alkaline (units (unkno wn) date) Phosphatase unknown) (38-126) U/L (unknown) (no (unknown) (unknown) Alkaline (units (unkno wn) date) Phosphatase 88 unknown) (38-126) U/L (unknown) (no (unknown) (unknown) Allergies (units (unkn own) date) unknown) (unknown) (no (unknown) (unknown) Allergy/AdvReac (units (unknown) date) Type Severity unknown) Reaction Status Date / Time (unknown) (no (unknown) (unknown) [place] (units ( unknown) date) [address] unknown) (unknown) (no (unknown) (unknown) Appropriate for (units (unknown) date) admission. Patient unknown) will need surgical intervention for her hip (unknown) (no (unknown) (unknown) Approved by: Kieran (units (unknown) date) Dedrick Mata on unknown) 03/23/2022 at 16:50 ? (unknown) (no (unknown) (unknown) Approved by: Kieran (units (unknown) date) Dedrick Mata on unknown) 03/23/2022 at 16:51 ? (unknown) (no (unknown) (unknown) BACK: No flank (units (unknown) date) tenderness. unknown) (unknown) (no (unknown) (unknown) BMP [Basic (units (unk nown) date) Metabolic Panel] unknown) DAILY (unknown) (no (unknown) (unknown) BUN (7-17) mg/dL (units (unknown) date) unknown) (unknown) (no (unknown) (unknown) BUN 25 H (7-17) (units (unknown) date) mg/dL unknown) (unknown) (no (unknown) (unknown) BUN/Creatinine (units (unknown) date) Ratio (6-22) unknown) (unknown) (no (unknown) (unknown) BUN/Creatinine (units (unknown) date) Ratio 25.0 H (6-22) unknown) (unknown) (no (unknown) (unknown) Baso # (Auto) (units ( unknown) date) (0-100) /uL unknown) (unknown) (no (unknown) (unknown) Baso # (Auto) 100 (units (unknown) date) (0-100) /uL unknown) (unknown) (no (unknown) (unknown) Baso % (Auto) (units ( unknown) date) (0-2) % unknown) (unknown) (no (unknown) (unknown) Baso % (Auto) 0.8 (units (unknown) date) (0-2) % unknown) (unknown) (no (unknown) (unknown) Bilateral hip (units ( unknown) date) unknown) (unknown) (no (unknown) (unknown) Blood Pressure (units (unknown) date) 108/55 L unknown) (unknown) (no (unknown) (unknown) Blood Pressure (units (unknown) date) 67/41 L 03/23/22 unknown) 15:47 (unknown) (no (unknown) (unknown) Blood Pressure (units (unknown) date) 67/41 L 91/47 L unknown) (unknown) (no (unknown) (unknown) Blood Pressure (units (unknown) date) 90/44 L 97/49 L unknown) (unknown) (no (unknown) (unknown) Blood Pressure (units (unknown) date) 91/45 L unknown) (unknown) (no (unknown) (unknown) Blood Pressure (units (unknown) date) 94/48 L unknown) (unknown) (no (unknown) (unknown) Blood Pressure (units (unknown) date) 98/48 L unknown) (unknown) (no (unknown) (unknown) Blood pressure and (units (unknown) date) O2 saturation noted unknown) by triage notes. Patient denies any (unknown) (no (unknown) (unknown) Bones and chest (units (unknown) date) wall:? No unknown) suspicious bony lesions.? Overlying soft tissues (unknown) (no (unknown) (unknown) Bones:? Acute (units ( unknown) date) fracture through unknown) subcapital region of left femoral neck is seen (unknown) (no (unknown) (unknown) CARDIOVASCULAR: (units (unknown) date) Regular rate and unknown) rhythm without murmurs (unknown) (no (unknown) (unknown) CARDIOVASCULAR: (units (unknown) date) negative chest unknown) pain, palpitations (unknown) (no (unknown) (unknown) CBC Auto Diff (units ( unknown) date) [Complete Blood unknown) Count AUTO DIFF] DAILY (unknown) (no (unknown) (unknown) CK-MB (CK-2) Rel (units (unknown) date) Index TNP unknown) (unknown) (no (unknown) (unknown) CK-MB (CK-2) Rel (units (unknown) date) Index unknown) (unknown) (no (unknown) (unknown) CK-MB (CK-2) TNP (units (unknown) date) unknown) (unknown) (no (unknown) (unknown) CK-MB (CK-2) (units (u nknown) date) unknown) (unknown) (no (unknown) (unknown) COMPARISON:? (units (u nknown) date) [facility], unknown) CR, HIP 2V LEFT, 09/26/2007, 12:14. (unknown) (no (unknown) (unknown) COMPARISON:? (units (u nknown) date) [facility], unknown) CR, XR CHEST 2V, 01/18/2022, 17:05. (unknown) (no (unknown) (unknown) COVID19 -Nasal (units (unknown) date) RAPID/Pre-Proc Stat unknown) (unknown) (no (unknown) (unknown) Calcium (8.4-10.2) (units (unknown) date) mg/dL unknown) (unknown) (no (unknown) (unknown) Calcium 8.8 (units (un known) date) (8.4-10.2) mg/dL unknown) (unknown) (no (unknown) (unknown) Carbon Dioxide (units (unknown) date) (22-32) mmol/L unknown) (unknown) (no (unknown) (unknown) Carbon Dioxide 26 (units (unknown) date) (22-32) mmol/L unknown) (unknown) (no (unknown) (unknown) Chest x-ray: (units (u nknown) date) unknown) (unknown) (no (unknown) (unknown) Chief Complaint: (units (unknown) date) Trauma unknown) (unknown) (no (unknown) (unknown) Chloride (98-107) (units (unknown) date) mmol/L unknown) (unknown) (no (unknown) (unknown) Chloride 101 (units (u nknown) date) (98-107) mmol/L unknown) (unknown) (no (unknown) (unknown) Clinical (units (unkno wn) date) Impression: unknown) (unknown) (no (unknown) (unknown) Closed hip (units (unk n) date) fracture unknown) (unknown) (no (unknown) (unknown) Complete Blood (units (unknown) date) Count AUTO DIFF unknown) Stat (unknown) (no (unknown) (unknown) Comprehensive (units ( unknown) date) Metabolic Panel unknown) Stat (unknown) (no (unknown) (unknown) Consult to (units (unk n) date) Discharge Planning unknown) Routine (unknown) (no (unknown) (unknown) Consult to (units () date) Orthopedic Surgery unknown) Stat (unknown) (no (unknown) (unknown) Consultation #1: (units (unknown) date) unknown) (unknown) (no (unknown) (unknown) Consultation #2: (units (unknown) date) unknown) (unknown) (no (unknown) (unknown) Consultations (units ( unknown) date) unknown) (unknown) (no (unknown) (unknown) Course Narrative: (units (unknown) date) unknown) (unknown) (no (unknown) (unknown) Course (units (unkno wn) date) unknown) (unknown) (no (unknown) (unknown) Creatinine (units (unk n) date) (0.52-1.04) mg/dL unknown) (unknown) (no (unknown) (unknown) Creatinine 1.00 (units (unknown) date) (0.52-1.04) mg/dL unknown) (unknown) (no (unknown) (unknown) : 1950 (units (unknown) date) Acct:[id number] unknown) (unknown) (no (unknown) (unknown) : 1950 (units (unknown) date) unknown) (unknown) (no (unknown) (unknown) Date of Service: (units (unknown) date) 03/23/22 unknown) (unknown) (no (unknown) (unknown) Decision to Admit (units (unknown) date) Date: 03/23/22 unknown) (unknown) (no (unknown) (unknown) Decision to Admit (units (unknown) date) time: 16:08 unknown) (unknown) (no (unknown) (unknown) Departure (units (unkn own) date) unknown) (unknown) (no (unknown) (unknown) Dictated by: Kieran (units (unknown) date) Dedrick Mata on unknown) 03/23/2022 at 16:50 ? ? (unknown) (no (unknown) (unknown) Differential (units (u nknown) date) Diagnosis unknown) (unknown) (no (unknown) (unknown) Differential (units (u nknown) date) diagnosis: Likely unknown) other (Hip contusion hip fracture hip (unknown) (no (unknown) (unknown) Discharge Plan (units (unknown) date) unknown) (unknown) (no (unknown) (unknown) Discontinued (units (u nknown) date) Medications unknown) (unknown) (no (unknown) (unknown) Documented By: KB (units (unknown) date) unknown) (unknown) (no (unknown) (unknown) Documented By: RB (units (unknown) date) unknown) (unknown) (no (unknown) (unknown) ECG Data (units (unkno wn) date) unknown) (unknown) (no (unknown) (unknown) ED Orders (units (unkn own) date) unknown) (unknown) (no (unknown) (unknown) EKG-12 Lead Stat (units (unknown) date) unknown) (unknown) (no (unknown) (unknown) ENT: Mucous (units (un known) date) membranes moist. unknown) (unknown) (no (unknown) (unknown) ER Physician: (units ( unknown) date) Liam Colón MD unknown) (unknown) (no (unknown) (unknown) EXTREMITIES: (units (u nknown) date) Tenderness to the unknown) left hip. There is shortening slightly of the (unknown) (no (unknown) (unknown) EYES: Pupils equal (units (unknown) date) round No scleral unknown) icterus. (unknown) (no (unknown) (unknown) Emergency Report (units (unknown) date) unknown) (unknown) (no (unknown) (unknown) Eos # (Auto) (units (u nknown) date) (0-450) /uL unknown) (unknown) (no (unknown) (unknown) Eos # (Auto) 200 (units (unknown) date) (0-450) /uL unknown) (unknown) (no (unknown) (unknown) Eos % (Auto) (2-4) (units (unknown) date) % unknown) (unknown) (no (unknown) (unknown) Eos % (Auto) 1.9 L (units (unknown) date) (2-4) % unknown) (unknown) (no (unknown) (unknown) Estimated GFR > 60 (units (unknown) date) (>60) mL/min unknown) (unknown) (no (unknown) (unknown) Estimated GFR (units ( unknown) date) (>60) mL/min unknown) (unknown) (no (unknown) (unknown) Ethanol (ETOH) (units (unknown) date) Stat unknown) (unknown) (no (unknown) (unknown) Ethyl Alcohol < 10 (units (unknown) date) ( - 10) mg/dL unknown) (unknown) (no (unknown) (unknown) Ethyl Alcohol ( - (units (unknown) date) 10) mg/dL unknown) (unknown) (no (unknown) (unknown) Exam Narrative: (units (unknown) date) unknown) (unknown) (no (unknown) (unknown) Exam (units (unkno wn) date) unknown) (unknown) (no (unknown) (unknown) Extremity x-ray (units (unknown) date) #1: unknown) (unknown) (no (unknown) (unknown) FINDINGS:? (units (unk nown) date) unknown) (unknown) (no (unknown) (unknown) Fibromyalgia (units (u nknown) date) unknown) (unknown) (no (unknown) (unknown) Furosemide (units (unk nown) date) (Furosemide 20 Mg/2 unknown) Ml Vial) 20 mg IV NOW ONE (unknown) (no (unknown) (unknown) GASTROINTESTINAL: (units (unknown) date) Abdomen soft, unknown) non-tender (unknown) (no (unknown) (unknown) GASTROINTESTINAL: (units (unknown) date) negative nausea, unknown) vomiting, abdominal pain (unknown) (no (unknown) (unknown) GENERAL: in no (units (unknown) date) distress, not toxic unknown) not dyspneic (unknown) (no (unknown) (unknown) GENERAL: negative (units (unknown) date) chills, positive unknown) fatigue, malaise, negative fever, sweats. (unknown) (no (unknown) (unknown) : negative (units (u nknown) date) dysuria, frequency, unknown) hematuria (unknown) (no (unknown) (unknown) General (units (unkno wn) date) unknown) (unknown) (no (unknown) (unknown) Globulin (1.7-4.1) (units (unknown) date) g/dL unknown) (unknown) (no (unknown) (unknown) Globulin 2.5 (units (u nknown) date) (1.7-4.1) g/dL unknown) (unknown) (no (unknown) (unknown) Glucosamine (units (un known) date) Sulfate unknown) (GLUCOSAMINE) ##0 11/29/12 (unknown) (no (unknown) (unknown) Glucose (80-110) (units (unknown) date) mg/dL unknown) (unknown) (no (unknown) (unknown) Glucose 115 H (units ( unknown) date) (80-110) mg/dL unknown) (unknown) (no (unknown) (unknown) HEAD: (units (unkno wn) date) Normocephalic. unknown) (unknown) (no (unknown) (unknown) HEENT: negative (units (unknown) date) sinus pain, ear unknown) pain, sore throat (unknown) (no (unknown) (unknown) HPI - Fall (units (unk nown) date) unknown) (unknown) (no (unknown) (unknown) HPI Narrative: (units (unknown) date) unknown) (unknown) (no (unknown) (unknown) Hct (36-46) % (units ( unknown) date) unknown) (unknown) (no (unknown) (unknown) Hct 34.5 L (36-46) (units (unknown) date) % unknown) (unknown) (no (unknown) (unknown) Hgb (12.0-16.0) (units (unknown) date) g/dL unknown) (unknown) (no (unknown) (unknown) Hgb 11.5 L (units (unk nown) date) (12.0-16.0) g/dL unknown) (unknown) (no (unknown) (unknown) History of Present (units (unknown) date) Illness unknown) (unknown) (no (unknown) (unknown) Home Medications (units (unknown) date) unknown) (unknown) (no (unknown) (unknown) Hospitalist to (units (unknown) date) admit unknown) (unknown) (no (unknown) (unknown) Hydromorphone HCl (units (unknown) date) (Hydromorphone 0.5 unknown) Mg Inj) 0.5 mg IV Q4H PRN (unknown) (no (unknown) (unknown) Hypertension (units (u nknown) date) unknown) (unknown) (no (unknown) (unknown) Hypothyroidism (units (unknown) date) unknown) (unknown) (no (unknown) (unknown) IMPRESSION:? Acute (units (unknown) date) displaced left unknown) femoral neck fracture as above.? (unknown) (no (unknown) (unknown) IMPRESSION:? (units (u nknown) date) Cardiomegaly and unknown) mild congestion.? No focal infiltrate or (unknown) (no (unknown) (unknown) INDICATIONS:? HIP (units (unknown) date) PAIN AFTER FALL unknown) (unknown) (no (unknown) (unknown) INDICATIONS:? fall (units (unknown) date) pain unknown) (unknown) (no (unknown) (unknown) INR (0.9-1.3) (units ( unknown) date) unknown) (unknown) (no (unknown) (unknown) INR 1.2 (0.9-1.3) (units (unknown) date) unknown) (unknown) (no (unknown) (unknown) Imaging Data (units (u nknown) date) unknown) (unknown) (no (unknown) (unknown) Initial Vital (units ( unknown) date) Signs unknown) (unknown) (no (unknown) (unknown) Initial Vital (units ( unknown) date) Signs: unknown) (unknown) (no (unknown) (unknown) Interpretation: (units (unknown) date) unknown) (unknown) (no (unknown) (unknown) [facility] (units (unknown) date) [address] unknown) [place] [address] (unknown) (no (unknown) (unknown) [facility] (units (unknown) date) unknown) (unknown) (no (unknown) (unknown) Lab Data (units (unkno wn) date) unknown) (unknown) (no (unknown) (unknown) Lab Results (units (un known) date) unknown) (unknown) (no (unknown) (unknown) Labs: (units (unkno wn) date) unknown) (unknown) (no (unknown) (unknown) Last Infusion: (units (unknown) date) 03/23/22 16:33 unknown) Dose: 0 mls/hr (unknown) (no (unknown) (unknown) Loc: ED (units (unkno wn) date) unknown) (unknown) (no (unknown) (unknown) Lungs and pleura:? (units (unknown) date) Mild pulmonary unknown) vascular congestion is seen.? No definite (unknown) (no (unknown) (unknown) Lymph # (Auto) (units (unknown) date) (1684-2842) /uL unknown) (unknown) (no (unknown) (unknown) Lymph # (Auto) (units (unknown) date) 2000 (9743-1808) unknown) /uL (unknown) (no (unknown) (unknown) Lymph % (Auto) (units (unknown) date) (25-40) % unknown) (unknown) (no (unknown) (unknown) Lymph % (Auto) (units (unknown) date) 19.6 L (25-40) % unknown) (unknown) (no (unknown) (unknown) MCH (26-34) PG (units (unknown) date) unknown) (unknown) (no (unknown) (unknown) MCH 29.0 (26-34) (units (unknown) date) PG unknown) (unknown) (no (unknown) (unknown) MCHC (30-36) % (units (unknown) date) unknown) (unknown) (no (unknown) (unknown) MCHC 33.2 (30-36) (units (unknown) date) % unknown) (unknown) (no (unknown) (unknown) MCV (80-100) fL (units (unknown) date) unknown) (unknown) (no (unknown) (unknown) MCV 87.4 (80-100) (units (unknown) date) fL unknown) (unknown) (no (unknown) (unknown) MDM - Fall (units (unk nown) date) unknown) (unknown) (no (unknown) (unknown) MDM Narrative (units ( unknown) date) unknown) (unknown) (no (unknown) (unknown) MR#: [id number] (units (unknown) date) unknown) (unknown) (no (unknown) (unknown) MUSCULOSKELETAL: (units (unknown) date) Positive muscle or unknown) bony pain (unknown) (no (unknown) (unknown) Magnesium (units (unkn own) date) (1.6-2.3) mg/dL unknown) (unknown) (no (unknown) (unknown) Magnesium 1.9 (units ( unknown) date) (1.6-2.3) mg/dL unknown) (unknown) (no (unknown) (unknown) Magnesium Urgent (units (unknown) date) unknown) (unknown) (no (unknown) (unknown) Mediastinum:? (units ( unknown) date) Mediastinal unknown) contours appear normal.? Heart size is enlarged.? (unknown) (no (unknown) (unknown) Medical History (units (unknown) date) (Reviewed 03/23/22 unknown) @ 16:07 by Liam Colón MD) (unknown) (no (unknown) (unknown) Medical decision (units (unknown) date) making narrative: unknown) (unknown) (no (unknown) (unknown) Medication (units (unk n) date) Instructions unknown) Recorded Confirmed (unknown) (no (unknown) (unknown) Medication (units (unk nown) date) Instructions unknown) Recorded (unknown) (no (unknown) (unknown) Melatonin (units (unkn own) date) (Melatonin 3 Mg unknown) Tablet) 6 mg PO BEDTIME PRN (unknown) (no (unknown) (unknown) [place] # (Auto) (units ( unknown) date) (0-900) /uL unknown) (unknown) (no (unknown) (unknown) [place] # (Auto) 800 (units (unknown) date) (0-900) /uL unknown) (unknown) (no (unknown) (unknown) [place] % (Auto) (units ( unknown) date) (3-14) % unknown) (unknown) (no (unknown) (unknown) [place] % (Auto) 7.6 (units (unknown) date) (3-14) % unknown) (unknown) (no (unknown) (unknown) NECK: Trachea (units ( unknown) date) midline. unknown) (unknown) (no (unknown) (unknown) NEURO: AOx4. (units (u nknown) date) unknown) (unknown) (no (unknown) (unknown) NEUROLOGIC: (units (un known) date) negative weakness, unknown) numbness (unknown) (no (unknown) (unknown) Naloxone HCl (units (u nknown) date) (Naloxone 0.4 Mg/Ml unknown) Vial) 0.2 mg IV Q2MIN PRN (unknown) (no (unknown) (unknown) Narrative (units (unkn own) date) unknown) (unknown) (no (unknown) (unknown) Narrative: (units (unk nown) date) unknown) (unknown) (no (unknown) (unknown) Neut # (Auto) (units ( unknown) date) (1434-6407) /uL unknown) (unknown) (no (unknown) (unknown) Neut # (Auto) 7300 (units (unknown) date) H (3648-8883) /uL unknown) (unknown) (no (unknown) (unknown) Neut % (Auto) (units ( unknown) date) (50-75) % unknown) (unknown) (no (unknown) (unknown) Neut % (Auto) 70.1 (units (unknown) date) (50-75) % unknown) (unknown) (no (unknown) (unknown) No new issues (units ( unknown) date) during course of unknown) stay (unknown) (no (unknown) (unknown) No pertinent past (units (unknown) date) surgical history unknown) (unknown) (no (unknown) (unknown) Ordered: (units (unkno wn) date) unknown) (unknown) (no (unknown) (unknown) Ordering Provider: (units (unknown) date) Lima Colón MD unknown) (unknown) (no (unknown) (unknown) Orders (units (unkno wn) date) unknown) (unknown) (no (unknown) (unknown) Oxycodone HCl (units ( unknown) date) (Oxycodone Ir 5 Mg unknown) Tablet) 5 mg PO Q4HR PRN (unknown) (no (unknown) (unknown) Oxygen Delivery (units (unknown) date) Method 03/23/22 unknown) 15:47 (unknown) (no (unknown) (unknown) Oxygen Delivery (units (unknown) date) Method Nasal unknown) Cannula Nasal Cannula Nasal Cannula (unknown) (no (unknown) (unknown) Oxygen Delivery (units (unknown) date) Method Nasal unknown) Cannula (unknown) (no (unknown) (unknown) Oxygen Delivery (units (unknown) date) Method Room Air unknown) (unknown) (no (unknown) (unknown) Oxygen Delivery (units (unknown) date) Method unknown) (unknown) (no (unknown) (unknown) Oxygen Flow Rate 2 (units (unknown) date) 2 2 unknown) (unknown) (no (unknown) (unknown) Oxygen Flow Rate 2 (units (unknown) date) unknown) (unknown) (no (unknown) (unknown) Oxygen Flow Rate (units (unknown) date) unknown) (unknown) (no (unknown) (unknown) PRN Reason: (units (un known) date) Constipation unknown) (unknown) (no (unknown) (unknown) PRN Reason: (units (un known) date) Fever/Mild Pain unknown) (1-3) (unknown) (no (unknown) (unknown) PRN Reason: (units (un known) date) Insomnia unknown) (unknown) (no (unknown) (unknown) PRN Reason: Opiate (units (unknown) date) Reversal unknown) (unknown) (no (unknown) (unknown) PRN Reason: Pain, (units (unknown) date) Moderate (4-6) unknown) (unknown) (no (unknown) (unknown) PRN (units (unkno wn) date) unknown) (unknown) (no (unknown) (unknown) PROCEDURE:? XR (units (unknown) date) CHEST 1V unknown) (unknown) (no (unknown) (unknown) PROCEDURE:? XR HIP (units (unknown) date) W PEL IF DONE LT 2V unknown) (unknown) (no (unknown) (unknown) PSYCH: Not (units (unk nown) date) anxious, is unknown) cooperative (unknown) (no (unknown) (unknown) PT (10.1-12.7) (units (unknown) date) SECONDS unknown) (unknown) (no (unknown) (unknown) PT 14.2 H (units (unkn own) date) (10.1-12.7) SECONDS unknown) (unknown) (no (unknown) (unknown) Partial (units (unkno wn) date) Thromboplastin Time unknown) Stat (unknown) (no (unknown) (unknown) Patient (units (unkno wn) date) Disposition: unknown) Admitted As Inpatient (unknown) (no (unknown) (unknown) Patient History (units (unknown) date) unknown) (unknown) (no (unknown) (unknown) Patient: (units (unkno wn) date) Elidia Rock unknown) MR#: [id number] (unknown) (no (unknown) (unknown) Patient: (units (unkno wn) date) Elidia Rock unknown) (unknown) (no (unknown) (unknown) Plt Count (units (unkn own) date) (150-400) X103/uL unknown) (unknown) (no (unknown) (unknown) Plt Count 290 (units ( unknown) date) (150-400) X103/uL unknown) (unknown) (no (unknown) (unknown) Polyethylene (units (u nknown) date) Glycol unknown) (Polyethylene Glycol 3350 17 Gm Powd.Pack) 17 gm PO DAILY (unknown) (no (unknown) (unknown) Potassium (units (unkn own) date) (3.4-5.1) mmol/L unknown) (unknown) (no (unknown) (unknown) Potassium 3.7 (units ( unknown) date) (3.4-5.1) mmol/L unknown) (unknown) (no (unknown) (unknown) Previous Rx's (units ( unknown) date) unknown) (unknown) (no (unknown) (unknown) Procedure: XR (units ( unknown) date) chest 1V unknown) (unknown) (no (unknown) (unknown) Procedure: XR hip (units (unknown) date) w pel if done LT 2V unknown) (unknown) (no (unknown) (unknown) Prothrombin Time (units (unknown) date) INR Stat unknown) (unknown) (no (unknown) (unknown) Pulse Oximetry 84 (units (unknown) date) L 03/23/22 15:47 unknown) (unknown) (no (unknown) (unknown) Pulse Oximetry 84 (units (unknown) date) L 82 L unknown) (unknown) (no (unknown) (unknown) Pulse Oximetry 84 (units (unknown) date) L 94 unknown) (unknown) (no (unknown) (unknown) Pulse Oximetry 86 (units (unknown) date) L 82 L unknown) (unknown) (no (unknown) (unknown) Pulse Oximetry 92 (units (unknown) date) 88 L unknown) (unknown) (no (unknown) (unknown) Pulse Oximetry 94 (units (unknown) date) unknown) (unknown) (no (unknown) (unknown) Pulse Oximetry 97 (units (unknown) date) 95 unknown) (unknown) (no (unknown) (unknown) Pulse Rate 59 L 59 (units (unknown) date) L unknown) (unknown) (no (unknown) (unknown) Pulse Rate 59 L (units (unknown) date) unknown) (unknown) (no (unknown) (unknown) Pulse Rate 60 59 L (units (unknown) date) unknown) (unknown) (no (unknown) (unknown) Pulse Rate 64 (units ( unknown) date) 03/23/22 15:47 unknown) (unknown) (no (unknown) (unknown) Pulse Rate 64 65 (units (unknown) date) unknown) (unknown) (no (unknown) (unknown) Pulse Rate 64 66 (units (unknown) date) unknown) (unknown) (no (unknown) (unknown) Pulse Rate 65 59 L (units (unknown) date) unknown) (unknown) (no (unknown) (unknown) RBC (4.0-5.2) (units ( unknown) date) X106/uL unknown) (unknown) (no (unknown) (unknown) RBC 3.95 L (units (unk nown) date) (4.0-5.2) X106/uL unknown) (unknown) (no (unknown) (unknown) RDW (11.6-14.8) % (units (unknown) date) unknown) (unknown) (no (unknown) (unknown) RDW 14.3 (units (unkno wn) date) (11.6-14.8) % unknown) (unknown) (no (unknown) (unknown) RESPIRATORY: Clear (units (unknown) date) to auscultation. unknown) Breath sounds equal bilaterally. No wheezes, (unknown) (no (unknown) (unknown) RESPIRATORY: (units (u nknown) date) negative dyspnea, unknown) cough (unknown) (no (unknown) (unknown) ROS Unobtainable: (units (unknown) date) All systems unknown) reviewed + are unremarkable except as noted in HPI (unknown) (no (unknown) (unknown) Radiologist's (units ( unknown) date) Impression: unknown) (unknown) (no (unknown) (unknown) Reevaluation #1: (units (unknown) date) unknown) (unknown) (no (unknown) (unknown) Reevaluation(s) (units (unknown) date) unknown) (unknown) (no (unknown) (unknown) Related Data (units (u nknown) date) unknown) (unknown) (no (unknown) (unknown) Respiratory Rate (units (unknown) date) 18 03/23/22 15:47 unknown) (unknown) (no (unknown) (unknown) Respiratory Rate (units (unknown) date) 18 22 unknown) (unknown) (no (unknown) (unknown) Respiratory Rate (units (unknown) date) 21 unknown) (unknown) (no (unknown) (unknown) Respiratory Rate (units (unknown) date) 26 H 35 H unknown) (unknown) (no (unknown) (unknown) Respiratory Rate (units (unknown) date) 33 H 27 H unknown) (unknown) (no (unknown) (unknown) Respiratory Rate (units (unknown) date) 36 H 39 H unknown) (unknown) (no (unknown) (unknown) Respiratory Rate (units (unknown) date) 39 H 31 H unknown) (unknown) (no (unknown) (unknown) Restrictive lung (units (unknown) date) disease unknown) (unknown) (no (unknown) (unknown) Result diagrams: (units (unknown) date) unknown) (unknown) (no (unknown) (unknown) Review of Systems (units (unknown) date) unknown) (unknown) (no (unknown) (unknown) SARS-CoV-2 (PCR) (units (unknown) date) (Negative) unknown) (unknown) (no (unknown) (unknown) SARS-CoV-2 (PCR) (units (unknown) date) Negative (Negative) unknown) (unknown) (no (unknown) (unknown) SKIN: Warm and dry (units (unknown) date) unknown) (unknown) (no (unknown) (unknown) SKIN: negative (units (unknown) date) rash, skin lesions unknown) (unknown) (no (unknown) (unknown) Sennosides (units (unk n) date) (Sennosides 8.6 Mg unknown) Tablet) 8.6 mg PO BID PRN (unknown) (no (unknown) (unknown) Signed By: (units (unk nown) date) unknown) (unknown) (no (unknown) (unknown) Signed (units (unkno wn) date) unknown) (unknown) (no (unknown) (unknown) Sinus rhythm rate (units (unknown) date) [address] elevation unknown) or depression (unknown) (no (unknown) (unknown) Smoking Status: (units (unknown) date) Former smoker unknown) (unknown) (no (unknown) (unknown) Social History (units (unknown) date) (Reviewed 03/23/22 unknown) @ 16:07 by Liam Colón MD) (unknown) (no (unknown) (unknown) Sodium (137-145) (units (unknown) date) mmol/L unknown) (unknown) (no (unknown) (unknown) Sodium 135 L (units (u nknown) date) (137-145) mmol/L unknown) (unknown) (no (unknown) (unknown) Sodium Chloride (units (unknown) date) (Normal Saline unknown) 0.9%) 1,000 mls @ 1,000 mls/hr IV BOLUS ONE (unknown) (no (unknown) (unknown) Soft tissues:? The (units (unknown) date) visualized bowel unknown) gas pattern is normal.? No suspicious soft (unknown) (no (unknown) (unknown) Spoke with (units () date) hospitalist, unknown) Mike, he will admit, however patient will need (unknown) (no (unknown) (unknown) Spoke with (units (unk ) date) orthopedics, unknown) lili, will need to do surgery on the hip. (unknown) (no (unknown) (unknown) Stated Complaint: (units (unknown) date) hip pain unknown) (unknown) (no (unknown) (unknown) Stop: 03/23/22 (units (unknown) date) 17:02 unknown) (unknown) (no (unknown) (unknown) Stop: 03/23/22 (units (unknown) date) 17:09 unknown) (unknown) (no (unknown) (unknown) Substance Use (units ( unknown) date) Type: marijuana unknown) (unknown) (no (unknown) (unknown) Surgical History (units (unknown) date) (Reviewed 03/23/22 unknown) @ 16:07 by Liam Colón MD) (unknown) (no (unknown) (unknown) Surgical changes (units (unknown) date) and devices:? unknown) Surgical clips are seen in right hilar region.? (unknown) (no (unknown) (unknown) TECHNIQUE:? AP (units (unknown) date) pelvis with lateral unknown) view(s) of the left hip(s).? (unknown) (no (unknown) (unknown) TECHNIQUE:? One (units (unknown) date) view of the chest unknown) was acquired.? (unknown) (no (unknown) (unknown) Temperature 98.4 F (units (unknown) date) 03/23/22 15:47 unknown) (unknown) (no (unknown) (unknown) Temperature 98.4 F (units (unknown) date) unknown) (unknown) (no (unknown) (unknown) Temperature (units (un known) date) unknown) (unknown) (no (unknown) (unknown) There is (units (unkno wn) date) unknown) (unknown) (no (unknown) (unknown) Time Seen by (units (u nknown) date) Provider: 03/23/22 unknown) 16:03 (unknown) (no (unknown) (unknown) Time: 16:45 (units (un known) date) unknown) (unknown) (no (unknown) (unknown) Time: 16:50 (units (un known) date) unknown) (unknown) (no (unknown) (unknown) Time: 17:19 (units (un known) date) unknown) (unknown) (no (unknown) (unknown) Total Bilirubin (units (unknown) date) (0.2-1.3) mg/dL unknown) (unknown) (no (unknown) (unknown) Total Bilirubin (units (unknown) date) 0.7 (0.2-1.3) mg/dL unknown) (unknown) (no (unknown) (unknown) Total Creatine (units (unknown) date) Kinase (30-135) U/L unknown) (unknown) (no (unknown) (unknown) Total Creatine (units (unknown) date) Kinase 88 (30-135) unknown) U/L (unknown) (no (unknown) (unknown) Total Protein (units ( unknown) date) (6.3-8.2) g/dL unknown) (unknown) (no (unknown) (unknown) Total Protein 6.2 (units (unknown) date) L (6.3-8.2) g/dL unknown) (unknown) (no (unknown) (unknown) Troponin + CK (units ( unknown) date) Cardiac Panel Stat unknown) (unknown) (no (unknown) (unknown) Troponin I (units (unk nown) date) (0.01-0.034) ng/mL unknown) (unknown) (no (unknown) (unknown) Troponin I 0.050 H (units (unknown) date) (0.01-0.034) ng/mL unknown) (unknown) (no (unknown) (unknown) Updated patient (units (unknown) date) results and will unknown) need surgery. She understands. (unknown) (no (unknown) (unknown) Urine Drug Screen, (units (unknown) date) Rapid Stat unknown) (unknown) (no (unknown) (unknown) Vital Signs - 8 hr (units (unknown) date) unknown) (unknown) (no (unknown) (unknown) Vital Signs (units (un known) date) unknown) (unknown) (no (unknown) (unknown) Vital signs: (units (u nknown) date) unknown) (unknown) (no (unknown) (unknown) WBC (4.5-11.0) (units (unknown) date) X103/uL unknown) (unknown) (no (unknown) (unknown) WBC 10.4 (units (unkno wn) date) (4.5-11.0) X103/uL unknown) (unknown) (no (unknown) (unknown) XR chest 1V Stat (units (unknown) date) unknown) (unknown) (no (unknown) (unknown) XR hip w pel if (units (unknown) date) done LT 2V Stat unknown) (unknown) (no (unknown) (unknown) XRay Report (units (un known) date) unknown) (unknown) (no (unknown) (unknown) [Embedded Image (units (unknown) date) Not Available] unknown) (unknown) (no (unknown) (unknown) [From Septra] (units ( unknown) date) unknown) (unknown) (no (unknown) (unknown) adhesive tape (units ( unknown) date) AdvReac Verified unknown) 03/23/22 16:34 (unknown) (no (unknown) (unknown) alcohol intake (units (unknown) date) frequency: 0-2 unknown) drinks per day (unknown) (no (unknown) (unknown) and below (units (unkn own) date) unknown) (unknown) (no (unknown) (unknown) and doing very (units (unknown) date) well. At this time unknown) uncertain etiology of patient's arrival vital (unknown) (no (unknown) (unknown) and knee. Very (units (unknown) date) painful with unknown) passive or active attempt of moving the left hip. (unknown) (no (unknown) (unknown) any other injury (units (unknown) date) or pain. She is not unknown) on any blood thinners. She did recently (unknown) (no (unknown) (unknown) appear (units (unkno wn) date) unknown) (unknown) (no (unknown) (unknown) calcifications.? (units (unknown) date) unknown) (unknown) (no (unknown) (unknown) capsule,delayed (units (unknown) date) release (Nexium) unknown) (unknown) (no (unknown) (unknown) cardiac clearance (units (unknown) date) and echocardiogram. unknown) (unknown) (no (unknown) (unknown) desloratadine 5 mg (units (unknown) date) tablet 5 mg PO BID unknown) PRN nasal congestion 01/18/22 (unknown) (no (unknown) (unknown) dislocation/dehydr (units (unknown) date) ation) unknown) (unknown) (no (unknown) (unknown) done. She was at a (units (unknown) date) [facility] and unknown) [place]. Patient states she is not eaten or (unknown) (no (unknown) (unknown) drank very much (units (unknown) date) today. Has felt unknown) tired and weak though. 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 Patient in no (unknown) (no (unknown) (unknown) dyspnea or chest (units (unknown) date) pain. Denies any unknown) dizziness. No black or bloody stools (unknown) (no (unknown) (unknown) esomeprazole (units (u nknown) date) magnesium 40 mg 40 unknown) mg PO QDAY ##0 11/29/12 (unknown) (no (unknown) (unknown) extended release (units (unknown) date) 12 hr (Mucinex) unknown) (unknown) (no (unknown) (unknown) femoral (units (unkno wn) date) unknown) (unknown) (no (unknown) (unknown) fluoxetine 40 mg (units (unknown) date) capsule (Prozac) 80 unknown) 1 ##0 11/29/12 (unknown) (no (unknown) (unknown) focal (units (unkno wn) date) unknown) (unknown) (no (unknown) (unknown) fracture. Blood (units (unknown) date) pressure has unknown) improved with IV fluids. O2 saturation improved (unknown) (no (unknown) (unknown) guaifenesin 600 mg (units (unknown) date) tablet, 600 mg PO unknown) BID #20 tabs 01/18/22 (unknown) (no (unknown) (unknown) head..? Pelvic (units (unknown) date) ring appears unknown) intact.? No suspicious bony lesions.? (unknown) (no (unknown) (unknown) infiltrate.? No (units (unknown) date) pleural effusions unknown) or pneumothorax.? (unknown) (no (unknown) (unknown) joint (units (unkno wn) date) osteoarthritic unknown) changes are noted.? No evidence of avascular necrosis of (unknown) (no (unknown) (unknown) ketorolac 10 mg (units (unknown) date) tablet 10 mg PO Q6H unknown) PRN pain #14 tabs 02/22/22 (unknown) (no (unknown) (unknown) left leg and (units (u nknown) date) external rotation unknown) of the foot. Foot is warm soft and pink with (unknown) (no (unknown) (unknown) levothyroxine 125 (units (unknown) date) mcg tablet ##0 unknown) 11/29/12 (unknown) (no (unknown) (unknown) lidocaine 5 % (units ( unknown) date) topical patch 1 unknown) patch topical DAILY #15 ea 06/07/21 (unknown) (no (unknown) (unknown) meloxicam 7.5 mg (units (unknown) date) tablet (Mobic) ##0 unknown) 11/29/12 (unknown) (no (unknown) (unknown) methocarbamol 500 (units (unknown) date) mg tablet 500 mg PO unknown) TID PRN muscle aches #14 01/18/22 (unknown) (no (unknown) (unknown) nirmatrelvir 300 (units (unknown) date) mg (150 mg See Rx unknown) Instructions PO .COMPLEX 01/18/22 (unknown) (no (unknown) (unknown) oxycodone 5 mg (units (unknown) date) tablet (Roxicodone) unknown) 5 mg PO Q4P ##0 11/29/12 (unknown) (no (unknown) (unknown) pack(EUA) (units (unkn own) date) (Paxlovid) unknown) (unknown) (no (unknown) (unknown) pain or dyspnea or (units (unknown) date) palpitations. unknown) Patient placed in bed. Pants shoes socks (unknown) (no (unknown) (unknown) pneumothorax. (units ( unknown) date) unknown) (unknown) (no (unknown) (unknown) pregabalin 100 mg (units (unknown) date) capsule (Lyrica) 1 unknown) Q DAY ##0 11/29/12 (unknown) (no (unknown) (unknown) prior lower (units (un known) date) thoracic spine unknown) vertebral body kyphoplasty. (unknown) (no (unknown) (unknown) rales, or rhonchi. (units (unknown) date) unknown) (unknown) (no (unknown) (unknown) recently. Patient (units (unknown) date) states she got unknown) tangled up with the [employer] walking her dog (unknown) (no (unknown) (unknown) related to drug (units (unknown) date) screen as well. unknown) (unknown) (no (unknown) (unknown) removed and placed (units (unknown) date) in a gown. Left leg unknown) is slightly shortened and externally (unknown) (no (unknown) (unknown) respiratory (units (un known) date) distress and unknown) breathing and speaking with ease. Vital signs may be (unknown) (no (unknown) (unknown) rosuvastatin 20 mg (units (unknown) date) tablet (Crestor) unknown) ##0 11/29/12 (unknown) (no (unknown) (unknown) rotated. 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 O2 saturation likely (unknown) (no (unknown) (unknown) stay at hospital (units (unknown) date) last month for a unknown) heart attack she states. No surgeries were (unknown) (no (unknown) (unknown) strong pedal pulse (units (unknown) date) with light touch unknown) intact to foot and toes. Nontender ankle (unknown) (no (unknown) (unknown) substance use (units ( unknown) date) type: does not use unknown) (unknown) (no (unknown) (unknown) sulfamethoxazole (units (unknown) date) Allergy Verified unknown) 03/23/22 16:34 (unknown) (no (unknown) (unknown) superior migration (units (unknown) date) of left proximal unknown) femur in relation to femoral head.? (unknown) (no (unknown) (unknown) tabs (units (unkno wn) date) unknown) (unknown) (no (unknown) (unknown) tissue (units (unkno wn) date) unknown) (unknown) (no (unknown) (unknown) today and she fell (units (unknown) date) onto her left hip. unknown) On complains of left hip pain. Denies (unknown) (no (unknown) (unknown) trimethoprim [From (units (unknown) date) Septra] Allergy unknown) Verified 03/23/22 16:34 (unknown) (no (unknown) (unknown) unremarkable.? (units (unknown) date) unknown) (unknown) (no (unknown) (unknown) venlafaxine 50 mg (units (unknown) date) tablet 50 mg PO ##0 unknown) 11/29/12 (unknown) (no (unknown) (unknown) with nasal (units (unk nown) date) cannula. No unknown) vasopressors are needed. Patient on 2 L nasal cannula (unknown) (no (unknown) (unknown) with (units (unkno wn) date) unknown) (unknown) (no (unknown) (unknown) x2)-ritonavir 100 (units (unknown) date) mg tablet,dose #30 unknown) ea Result panel 152 (unknown) (no (unknown) (unknown) (no value) (units (unk nown) date) unknown) (unknown) (no (unknown) (unknown) <Electronically (units (unknown) date) signed by Liam unknown) MD Katarzyna> (unknown) (no (unknown) (unknown) (Clarinex) #20 (units (unknown) date) tabs unknown) (unknown) (no (unknown) (unknown) (Lidoderm) (units (unk nown) date) unknown) (unknown) (no (unknown) (unknown) (Synthroid) (units (un known) date) unknown) (unknown) (no (unknown) (unknown) [id number] (units (unkno wn) date) unknown) (unknown) (no (unknown) (unknown) 03/23/22 03/23/22 (units (unknown) date) 03/23/22 unknown) Range/Units (unknown) (no (unknown) (unknown) 03/23/22 03/23/22 (units (unknown) date) Range/Units unknown) (unknown) (no (unknown) (unknown) 03/23/22 16:04 (units (unknown) date) unknown) (unknown) (no (unknown) (unknown) 03/23/22 16:12 (units (unknown) date) unknown) (unknown) (no (unknown) (unknown) 03/23/22 16:42 (units (unknown) date) unknown) (unknown) (no (unknown) (unknown) 03/23/22 16:54 (units (unknown) date) unknown) (unknown) (no (unknown) (unknown) 03/23/22 17:03 (units (unknown) date) unknown) (unknown) (no (unknown) (unknown) 03/23/22 17:07 (units (unknown) date) unknown) (unknown) (no (unknown) (unknown) 03/23/22 1814 (units ( unknown) date) unknown) (unknown) (no (unknown) (unknown) 03/23/22 (units (unkno wn) date) unknown) (unknown) (no (unknown) (unknown) 03/24/22 05:00 (units (unknown) date) unknown) (unknown) (no (unknown) (unknown) 03/25/22 05:00 (units (unknown) date) unknown) (unknown) (no (unknown) (unknown) 03/26/22 05:00 (units (unknown) date) unknown) (unknown) (no (unknown) (unknown) [address] [place] [address] (units (unknown) date) unknown) (unknown) (no (unknown) (unknown) 15:47 03/23/22 (units (unknown) date) unknown) (unknown) (no (unknown) (unknown) 15:59 03/23/22 (units (unknown) date) unknown) (unknown) (no (unknown) (unknown) 16:00 03/23/22 (units (unknown) date) unknown) (unknown) (no (unknown) (unknown) 16:00 (units (unkno wn) date) unknown) (unknown) (no (unknown) (unknown) 16:04 03/23/22 (units (unknown) date) unknown) (unknown) (no (unknown) (unknown) 16:04 (units (unkno wn) date) unknown) (unknown) (no (unknown) (unknown) 16:05 03/23/22 (units (unknown) date) unknown) (unknown) (no (unknown) (unknown) 16:10 (units (unkno wn) date) unknown) (unknown) (no (unknown) (unknown) 16:12 16:12 16:12 (units (unknown) date) unknown) (unknown) (no (unknown) (unknown) 16:12 16:54 (units (un known) date) unknown) (unknown) (no (unknown) (unknown) 16:15 03/23/22 (units (unknown) date) unknown) (unknown) (no (unknown) (unknown) 16:17 03/23/22 (units (unknown) date) unknown) (unknown) (no (unknown) (unknown) 16:17 (units (unkno wn) date) unknown) (unknown) (no (unknown) (unknown) 16:20 03/23/22 (units (unknown) date) unknown) (unknown) (no (unknown) (unknown) 16:25 03/23/22 (units (unknown) date) unknown) (unknown) (no (unknown) (unknown) 16:25 (units (unkno wn) date) unknown) (unknown) (no (unknown) (unknown) 16:29 03/23/22 (units (unknown) date) unknown) (unknown) (no (unknown) (unknown) 16:30 (units (unkno wn) date) unknown) (unknown) (no (unknown) (unknown) ? (units (unkno wn) date) unknown) (unknown) (no (unknown) (unknown) ALT (<35) IU/L (units (unknown) date) unknown) (unknown) (no (unknown) (unknown) ALT 30 (<35) IU/L (units (unknown) date) unknown) (unknown) (no (unknown) (unknown) APTT (26-36) (units (u nknown) date) SECONDS unknown) (unknown) (no (unknown) (unknown) APTT 36 (26-36) (units (unknown) date) SECONDS unknown) (unknown) (no (unknown) (unknown) AST (14-36) IU/L (units (unknown) date) unknown) (unknown) (no (unknown) (unknown) AST 32 (14-36) (units (unknown) date) IU/L unknown) (unknown) (no (unknown) (unknown) Able to extend the (units (unknown) date) left knee fully. unknown) (unknown) (no (unknown) (unknown) Accession Number: (units (unknown) date) [id number] ?? unknown) (unknown) (no (unknown) (unknown) Accession Number: (units (unknown) date) [id number] ?? unknown) (unknown) (no (unknown) (unknown) Acct:[id number] (units (unknown) date) unknown) (unknown) (no (unknown) (unknown) Acetaminophen (units ( unknown) date) (Acetaminophen 325 unknown) Mg Tablet) 650 mg PO Q6H PRN (unknown) (no (unknown) (unknown) Admin: 03/23/22 (units (unknown) date) 16:10 Dose: 1,000 unknown) mls/hr (unknown) (no (unknown) (unknown) Admit Date/Time: (units (unknown) date) 03/23/22 17:05 unknown) (unknown) (no (unknown) (unknown) Admit Provider: (units (unknown) date) Heraclio Mckeon unknown) (unknown) (no (unknown) (unknown) Age/Sex: 72 / F (units (unknown) date) unknown) (unknown) (no (unknown) (unknown) Albumin (3.5-5.0) (units (unknown) date) g/dL unknown) (unknown) (no (unknown) (unknown) Albumin 3.7 (units (un known) date) (3.5-5.0) g/dL unknown) (unknown) (no (unknown) (unknown) Albumin/Globulin (units (unknown) date) Ratio (1.0-2.8) unknown) (unknown) (no (unknown) (unknown) Albumin/Globulin (units (unknown) date) Ratio 1.5 (1.0-2.8) unknown) (unknown) (no (unknown) (unknown) Alkaline (units (unkno wn) date) Phosphatase unknown) (38-126) U/L (unknown) (no (unknown) (unknown) Alkaline (units (unkno wn) date) Phosphatase 88 unknown) (38-126) U/L (unknown) (no (unknown) (unknown) Allergies (units (unkn own) date) unknown) (unknown) (no (unknown) (unknown) Allergy/AdvReac (units (unknown) date) Type Severity unknown) Reaction Status Date / Time (unknown) (no (unknown) (unknown) [place] (units ( unknown) date) [id number] unknown) (unknown) (no (unknown) (unknown) Appropriate for (units (unknown) date) admission. Patient unknown) will need surgical intervention for her hip (unknown) (no (unknown) (unknown) Approved by: Kieran (units (unknown) date) Dedrick Mata on unknown) 03/23/2022 at 16:50 ? (unknown) (no (unknown) (unknown) Approved by: Kieran (units (unknown) date) Dedrick Mata on unknown) 03/23/2022 at 16:51 ? (unknown) (no (unknown) (unknown) BACK: No flank (units (unknown) date) tenderness. unknown) (unknown) (no (unknown) (unknown) BMP [Basic (units (unk nown) date) Metabolic Panel] unknown) DAILY (unknown) (no (unknown) (unknown) BUN (7-17) mg/dL (units (unknown) date) unknown) (unknown) (no (unknown) (unknown) BUN 25 H (7-17) (units (unknown) date) mg/dL unknown) (unknown) (no (unknown) (unknown) BUN/Creatinine (units (unknown) date) Ratio (6-22) unknown) (unknown) (no (unknown) (unknown) BUN/Creatinine (units (unknown) date) Ratio 25.0 H (6-22) unknown) (unknown) (no (unknown) (unknown) Baso # (Auto) (units ( unknown) date) (0-100) /uL unknown) (unknown) (no (unknown) (unknown) Baso # (Auto) 100 (units (unknown) date) (0-100) /uL unknown) (unknown) (no (unknown) (unknown) Baso % (Auto) (units ( unknown) date) (0-2) % unknown) (unknown) (no (unknown) (unknown) Baso % (Auto) 0.8 (units (unknown) date) (0-2) % unknown) (unknown) (no (unknown) (unknown) Bilateral hip (units ( unknown) date) unknown) (unknown) (no (unknown) (unknown) Blood Pressure (units (unknown) date) 108/55 L unknown) (unknown) (no (unknown) (unknown) Blood Pressure (units (unknown) date) 67/41 L 03/23/22 unknown) 15:47 (unknown) (no (unknown) (unknown) Blood Pressure (units (unknown) date) 67/41 L 91/47 L unknown) (unknown) (no (unknown) (unknown) Blood Pressure (units (unknown) date) 90/44 L 97/49 L unknown) (unknown) (no (unknown) (unknown) Blood Pressure (units (unknown) date) 91/45 L unknown) (unknown) (no (unknown) (unknown) Blood Pressure (units (unknown) date) 94/48 L unknown) (unknown) (no (unknown) (unknown) Blood Pressure (units (unknown) date) 98/48 L unknown) (unknown) (no (unknown) (unknown) Blood pressure and (units (unknown) date) O2 saturation noted unknown) by triage notes. Patient denies any (unknown) (no (unknown) (unknown) Bones and chest (units (unknown) date) wall:? No unknown) suspicious bony lesions.? Overlying soft tissues (unknown) (no (unknown) (unknown) Bones:? Acute (units ( unknown) date) fracture through unknown) subcapital region of left femoral neck is seen (unknown) (no (unknown) (unknown) CARDIOVASCULAR: (units (unknown) date) Regular rate and unknown) rhythm without murmurs (unknown) (no (unknown) (unknown) CARDIOVASCULAR: (units (unknown) date) negative chest unknown) pain, palpitations (unknown) (no (unknown) (unknown) CBC Auto Diff (units ( unknown) date) [Complete Blood unknown) Count AUTO DIFF] DAILY (unknown) (no (unknown) (unknown) CK-MB (CK-2) Rel (units (unknown) date) Index TNP unknown) (unknown) (no (unknown) (unknown) CK-MB (CK-2) Rel (units (unknown) date) Index unknown) (unknown) (no (unknown) (unknown) CK-MB (CK-2) TNP (units (unknown) date) unknown) (unknown) (no (unknown) (unknown) CK-MB (CK-2) (units (u nknown) date) unknown) (unknown) (no (unknown) (unknown) COMPARISON:? (units (u nknown) date) [facility], unknown) CR, HIP 2V LEFT, 09/26/2007, 12:14. (unknown) (no (unknown) (unknown) COMPARISON:? (units (u nknown) date) [facility], unknown) CR, XR CHEST 2V, 01/18/2022, 17:05. (unknown) (no (unknown) (unknown) COVID19 -Nasal (units (unknown) date) RAPID/Pre-Proc Stat unknown) (unknown) (no (unknown) (unknown) Calcium (8.4-10.2) (units (unknown) date) mg/dL unknown) (unknown) (no (unknown) (unknown) Calcium 8.8 (units (un known) date) (8.4-10.2) mg/dL unknown) (unknown) (no (unknown) (unknown) Carbon Dioxide (units (unknown) date) (22-32) mmol/L unknown) (unknown) (no (unknown) (unknown) Carbon Dioxide 26 (units (unknown) date) (22-32) mmol/L unknown) (unknown) (no (unknown) (unknown) Chest x-ray: (units (u nknown) date) unknown) (unknown) (no (unknown) (unknown) Chief Complaint: (units (unknown) date) Trauma unknown) (unknown) (no (unknown) (unknown) Chloride (98-107) (units (unknown) date) mmol/L unknown) (unknown) (no (unknown) (unknown) Chloride 101 (units (u nknown) date) (98-107) mmol/L unknown) (unknown) (no (unknown) (unknown) Clinical (units (unkno wn) date) Impression: unknown) (unknown) (no (unknown) (unknown) Closed hip (units (unk nown) date) fracture unknown) (unknown) (no (unknown) (unknown) Complete Blood (units (unknown) date) Count AUTO DIFF unknown) Stat (unknown) (no (unknown) (unknown) Comprehensive (units ( unknown) date) Metabolic Panel unknown) Stat (unknown) (no (unknown) (unknown) Consult to (units (unk nown) date) Discharge Planning unknown) Routine (unknown) (no (unknown) (unknown) Consult to (units (unk nown) date) Orthopedic Surgery unknown) Stat (unknown) (no (unknown) (unknown) Consultation #1: (units (unknown) date) unknown) (unknown) (no (unknown) (unknown) Consultation #2: (units (unknown) date) unknown) (unknown) (no (unknown) (unknown) Consultations (units ( unknown) date) unknown) (unknown) (no (unknown) (unknown) Course Narrative: (units (unknown) date) unknown) (unknown) (no (unknown) (unknown) Course (units (unkno wn) date) unknown) (unknown) (no (unknown) (unknown) Creatinine (units (unk nown) date) (0.52-1.04) mg/dL unknown) (unknown) (no (unknown) (unknown) Creatinine 1.00 (units (unknown) date) (0.52-1.04) mg/dL unknown) (unknown) (no (unknown) (unknown) : 1950 (units (unknown) date) Acct:[id number] unknown) (unknown) (no (unknown) (unknown) : 1950 (units (unknown) date) unknown) (unknown) (no (unknown) (unknown) Date of Service: (units (unknown) date) 03/23/22 unknown) (unknown) (no (unknown) (unknown) Decision to Admit (units (unknown) date) Date: 03/23/22 unknown) (unknown) (no (unknown) (unknown) Decision to Admit (units (unknown) date) time: 16:08 unknown) (unknown) (no (unknown) (unknown) Departure (units (unkn own) date) unknown) (unknown) (no (unknown) (unknown) Dictated by: Kieran Dasilvaunits (unknown) date) Dedrick Mata on unknown) 03/23/2022 at 16:50 ? ? (unknown) (no (unknown) (unknown) Differential (units (u nknown) date) Diagnosis unknown) (unknown) (no (unknown) (unknown) Differential (units (u nknown) date) diagnosis: Likely unknown) other (Hip contusion hip fracture hip (unknown) (no (unknown) (unknown) Discharge Plan (units (unknown) date) unknown) (unknown) (no (unknown) (unknown) Discontinued (units (u nknown) date) Medications unknown) (unknown) (no (unknown) (unknown) Documented By: KB (units (unknown) date) unknown) (unknown) (no (unknown) (unknown) Documented By: RB (units (unknown) date) unknown) (unknown) (no (unknown) (unknown) Documented By: RLS (units (unknown) date) unknown) (unknown) (no (unknown) (unknown) ECG Data (units (unkno wn) date) unknown) (unknown) (no (unknown) (unknown) ED Orders (units (unkn own) date) unknown) (unknown) (no (unknown) (unknown) EKG-12 Lead Stat (units (unknown) date) unknown) (unknown) (no (unknown) (unknown) ENT: Mucous (units (un known) date) membranes moist. unknown) (unknown) (no (unknown) (unknown) ER Physician: (units ( unknown) date) Liam Colón MD unknown) (unknown) (no (unknown) (unknown) EXTREMITIES: (units (u nknown) date) Tenderness to the unknown) left hip. There is shortening slightly of the (unknown) (no (unknown) (unknown) EYES: Pupils equal (units (unknown) date) round No scleral unknown) icterus. (unknown) (no (unknown) (unknown) Emergency Report (units (unknown) date) unknown) (unknown) (no (unknown) (unknown) Eos # (Auto) (units (u nknown) date) (0-450) /uL unknown) (unknown) (no (unknown) (unknown) Eos # (Auto) 200 (units (unknown) date) (0-450) /uL unknown) (unknown) (no (unknown) (unknown) Eos % (Auto) (2-4) (units (unknown) date) % unknown) (unknown) (no (unknown) (unknown) Eos % (Auto) 1.9 L (units (unknown) date) (2-4) % unknown) (unknown) (no (unknown) (unknown) Estimated GFR > 60 (units (unknown) date) (>60) mL/min unknown) (unknown) (no (unknown) (unknown) Estimated GFR (units ( unknown) date) (>60) mL/min unknown) (unknown) (no (unknown) (unknown) Ethanol (ETOH) (units (unknown) date) Stat unknown) (unknown) (no (unknown) (unknown) Ethyl Alcohol < 10 (units (unknown) date) ( - 10) mg/dL unknown) (unknown) (no (unknown) (unknown) Ethyl Alcohol ( - (units (unknown) date) 10) mg/dL unknown) (unknown) (no (unknown) (unknown) Exam Narrative: (units (unknown) date) unknown) (unknown) (no (unknown) (unknown) Exam (units (unkno wn) date) unknown) (unknown) (no (unknown) (unknown) Extremity x-ray (units (unknown) date) #1: unknown) (unknown) (no (unknown) (unknown) FINDINGS:? (units (unk nown) date) unknown) (unknown) (no (unknown) (unknown) Fibromyalgia (units (u nknown) date) unknown) (unknown) (no (unknown) (unknown) Furosemide (units (unk n) date) (Furosemide 20 Mg/2 unknown) Ml Vial) 20 mg IV NOW ONE (unknown) (no (unknown) (unknown) GASTROINTESTINAL: (units (unknown) date) Abdomen soft, unknown) non-tender (unknown) (no (unknown) (unknown) GASTROINTESTINAL: (units (unknown) date) negative nausea, unknown) vomiting, abdominal pain (unknown) (no (unknown) (unknown) GENERAL: in no (units (unknown) date) distress, not toxic unknown) not dyspneic (unknown) (no (unknown) (unknown) GENERAL: negative (units (unknown) date) chills, positive unknown) fatigue, malaise, negative fever, sweats. (unknown) (no (unknown) (unknown) : negative (units (u nknown) date) dysuria, frequency, unknown) hematuria (unknown) (no (unknown) (unknown) General (units (unkno wn) date) unknown) (unknown) (no (unknown) (unknown) Globulin (1.7-4.1) (units (unknown) date) g/dL unknown) (unknown) (no (unknown) (unknown) Globulin 2.5 (units (u nknown) date) (1.7-4.1) g/dL unknown) (unknown) (no (unknown) (unknown) Glucosamine (units (un known) date) Sulfate unknown) (GLUCOSAMINE) ##0 11/29/12 (unknown) (no (unknown) (unknown) Glucose (80-110) (units (unknown) date) mg/dL unknown) (unknown) (no (unknown) (unknown) Glucose 115 H (units ( unknown) date) (80-110) mg/dL unknown) (unknown) (no (unknown) (unknown) HEAD: (units (unkno wn) date) Normocephalic. unknown) (unknown) (no (unknown) (unknown) HEENT: negative (units (unknown) date) sinus pain, ear unknown) pain, sore throat (unknown) (no (unknown) (unknown) HPI - Fall (units (unk nown) date) unknown) (unknown) (no (unknown) (unknown) HPI Narrative: (units (unknown) date) unknown) (unknown) (no (unknown) (unknown) Hct (36-46) % (units ( unknown) date) unknown) (unknown) (no (unknown) (unknown) Hct 34.5 L (36-46) (units (unknown) date) % unknown) (unknown) (no (unknown) (unknown) Hgb (12.0-16.0) (units (unknown) date) g/dL unknown) (unknown) (no (unknown) (unknown) Hgb 11.5 L (units (unk nown) date) (12.0-16.0) g/dL unknown) (unknown) (no (unknown) (unknown) History of Present (units (unknown) date) Illness unknown) (unknown) (no (unknown) (unknown) Home Medications (units (unknown) date) unknown) (unknown) (no (unknown) (unknown) Hospitalist to (units (unknown) date) admit unknown) (unknown) (no (unknown) (unknown) Hydromorphone HCl (units (unknown) date) (Hydromorphone 0.5 unknown) Mg Inj) 0.5 mg IV Q4H PRN (unknown) (no (unknown) (unknown) Hypertension (units (u nknown) date) unknown) (unknown) (no (unknown) (unknown) Hypothyroidism (units (unknown) date) unknown) (unknown) (no (unknown) (unknown) IMPRESSION:? Acute (units (unknown) date) displaced left unknown) femoral neck fracture as above.? (unknown) (no (unknown) (unknown) IMPRESSION:? (units (u nknown) date) Cardiomegaly and unknown) mild congestion.? No focal infiltrate or (unknown) (no (unknown) (unknown) INDICATIONS:? HIP (units (unknown) date) PAIN AFTER FALL unknown) (unknown) (no (unknown) (unknown) INDICATIONS:? fall (units (unknown) date) pain unknown) (unknown) (no (unknown) (unknown) INR (0.9-1.3) (units ( unknown) date) unknown) (unknown) (no (unknown) (unknown) INR 1.2 (0.9-1.3) (units (unknown) date) unknown) (unknown) (no (unknown) (unknown) Imaging Data (units (u nknown) date) unknown) (unknown) (no (unknown) (unknown) Initial Vital (units ( unknown) date) Signs unknown) (unknown) (no (unknown) (unknown) Initial Vital (units ( unknown) date) Signs: unknown) (unknown) (no (unknown) (unknown) Interpretation: (units (unknown) date) unknown) (unknown) (no (unknown) (unknown) [facility] (units (unknown) date) [address] unknown) [place] [address] (unknown) (no (unknown) (unknown) [facility] (units (unknown) date) unknown) (unknown) (no (unknown) (unknown) Lab Data (units (unkno wn) date) unknown) (unknown) (no (unknown) (unknown) Lab Results (units (un known) date) unknown) (unknown) (no (unknown) (unknown) Labs: (units (unkno wn) date) unknown) (unknown) (no (unknown) (unknown) Last Admin: (units (un known) date) 03/23/22 18:04 unknown) Dose: 20 mg (unknown) (no (unknown) (unknown) Last Infusion: (units (unknown) date) 03/23/22 16:33 unknown) Dose: 0 mls/hr (unknown) (no (unknown) (unknown) Loc: ED (units (unkno wn) date) unknown) (unknown) (no (unknown) (unknown) Lungs and pleura:? (units (unknown) date) Mild pulmonary unknown) vascular congestion is seen.? No definite (unknown) (no (unknown) (unknown) Lymph # (Auto) (units (unknown) date) (8194-3180) /uL unknown) (unknown) (no (unknown) (unknown) Lymph # (Auto) (units (unknown) date) 2000 (0758-6750) unknown) /uL (unknown) (no (unknown) (unknown) Lymph % (Auto) (units (unknown) date) (25-40) % unknown) (unknown) (no (unknown) (unknown) Lymph % (Auto) (units (unknown) date) 19.6 L (25-40) % unknown) (unknown) (no (unknown) (unknown) MCH (26-34) PG (units (unknown) date) unknown) (unknown) (no (unknown) (unknown) MCH 29.0 (26-34) (units (unknown) date) PG unknown) (unknown) (no (unknown) (unknown) MCHC (30-36) % (units (unknown) date) unknown) (unknown) (no (unknown) (unknown) MCHC 33.2 (30-36) (units (unknown) date) % unknown) (unknown) (no (unknown) (unknown) MCV (80-100) fL (units (unknown) date) unknown) (unknown) (no (unknown) (unknown) MCV 87.4 (80-100) (units (unknown) date) fL unknown) (unknown) (no (unknown) (unknown) MDM - Fall (units (unk nown) date) unknown) (unknown) (no (unknown) (unknown) MDM Narrative (units ( unknown) date) unknown) (unknown) (no (unknown) (unknown) MR#: [id number] (units (unknown) date) unknown) (unknown) (no (unknown) (unknown) MUSCULOSKELETAL: (units (unknown) date) Positive muscle or unknown) bony pain (unknown) (no (unknown) (unknown) Magnesium (units (unkn own) date) (1.6-2.3) mg/dL unknown) (unknown) (no (unknown) (unknown) Magnesium 1.9 (units ( unknown) date) (1.6-2.3) mg/dL unknown) (unknown) (no (unknown) (unknown) Magnesium Urgent (units (unknown) date) unknown) (unknown) (no (unknown) (unknown) Mediastinum:? (units ( unknown) date) Mediastinal unknown) contours appear normal.? Heart size is enlarged.? (unknown) (no (unknown) (unknown) Medical History (units (unknown) date) (Reviewed 03/23/22 unknown) @ 16:07 by Liam Colón MD) (unknown) (no (unknown) (unknown) Medical decision (units (unknown) date) making narrative: unknown) (unknown) (no (unknown) (unknown) Medication (units (unk nown) date) Instructions unknown) Recorded Confirmed (unknown) (no (unknown) (unknown) Medication (units (unk nown) date) Instructions unknown) Recorded (unknown) (no (unknown) (unknown) Melatonin (units (unkn own) date) (Melatonin 3 Mg unknown) Tablet) 6 mg PO BEDTIME PRN (unknown) (no (unknown) (unknown) [place] # (Auto) (units ( unknown) date) (0-900) /uL unknown) (unknown) (no (unknown) (unknown) [place] # (Auto) 800 (units (unknown) date) (0-900) /uL unknown) (unknown) (no (unknown) (unknown) [place] % (Auto) (units ( unknown) date) (3-14) % unknown) (unknown) (no (unknown) (unknown) [place] % (Auto) 7.6 (units (unknown) date) (3-14) % unknown) (unknown) (no (unknown) (unknown) NECK: Trachea (units ( unknown) date) midline. unknown) (unknown) (no (unknown) (unknown) NEURO: AOx4. (units (u nknown) date) unknown) (unknown) (no (unknown) (unknown) NEUROLOGIC: (units (un known) date) negative weakness, unknown) numbness (unknown) (no (unknown) (unknown) Naloxone HCl (units (u nknown) date) (Naloxone 0.4 Mg/Ml unknown) Vial) 0.2 mg IV Q2MIN PRN (unknown) (no (unknown) (unknown) Narrative (units (unkn own) date) unknown) (unknown) (no (unknown) (unknown) Narrative: (units (unk nown) date) unknown) (unknown) (no (unknown) (unknown) Neut # (Auto) (units ( unknown) date) (5150-4028) /uL unknown) (unknown) (no (unknown) (unknown) Neut # (Auto) 7300 (units (unknown) date) H (0577-6221) /uL unknown) (unknown) (no (unknown) (unknown) Neut % (Auto) (units ( unknown) date) (50-75) % unknown) (unknown) (no (unknown) (unknown) Neut % (Auto) 70.1 (units (unknown) date) (50-75) % unknown) (unknown) (no (unknown) (unknown) No new issues (units ( unknown) date) during course of unknown) stay (unknown) (no (unknown) (unknown) No pertinent past (units (unknown) date) surgical history unknown) (unknown) (no (unknown) (unknown) Ordered: (units (unkno wn) date) unknown) (unknown) (no (unknown) (unknown) Ordering Provider: (units (unknown) date) Liam Colón MD unknown) (unknown) (no (unknown) (unknown) Orders (units (unkno wn) date) unknown) (unknown) (no (unknown) (unknown) Oxycodone HCl (units ( unknown) date) (Oxycodone Ir 5 Mg unknown) Tablet) 5 mg PO Q4HR PRN (unknown) (no (unknown) (unknown) Oxygen Delivery (units (unknown) date) Method 03/23/22 unknown) 15:47 (unknown) (no (unknown) (unknown) Oxygen Delivery (units (unknown) date) Method Nasal unknown) Cannula Nasal Cannula Nasal Cannula (unknown) (no (unknown) (unknown) Oxygen Delivery (units (unknown) date) Method Nasal unknown) Cannula (unknown) (no (unknown) (unknown) Oxygen Delivery (units (unknown) date) Method Room Air unknown) (unknown) (no (unknown) (unknown) Oxygen Delivery (units (unknown) date) Method unknown) (unknown) (no (unknown) (unknown) Oxygen Flow Rate 2 (units (unknown) date) 2 2 unknown) (unknown) (no (unknown) (unknown) Oxygen Flow Rate 2 (units (unknown) date) unknown) (unknown) (no (unknown) (unknown) Oxygen Flow Rate (units (unknown) date) unknown) (unknown) (no (unknown) (unknown) PRN Reason: (units (un known) date) Constipation unknown) (unknown) (no (unknown) (unknown) PRN Reason: (units (un known) date) Fever/Mild Pain unknown) (1-3) (unknown) (no (unknown) (unknown) PRN Reason: (units (un known) date) Insomnia unknown) (unknown) (no (unknown) (unknown) PRN Reason: Opiate (units (unknown) date) Reversal unknown) (unknown) (no (unknown) (unknown) PRN Reason: Pain, (units (unknown) date) Moderate (4-6) unknown) (unknown) (no (unknown) (unknown) PRN (units (unkno wn) date) unknown) (unknown) (no (unknown) (unknown) PROCEDURE:? XR (units (unknown) date) CHEST 1V unknown) (unknown) (no (unknown) (unknown) PROCEDURE:? XR HIP (units (unknown) date) W PEL IF DONE LT 2V unknown) (unknown) (no (unknown) (unknown) PSYCH: Not (units (unk nown) date) anxious, is unknown) cooperative (unknown) (no (unknown) (unknown) PT (10.1-12.7) (units (unknown) date) SECONDS unknown) (unknown) (no (unknown) (unknown) PT 14.2 H (units (unkn own) date) (10.1-12.7) SECONDS unknown) (unknown) (no (unknown) (unknown) Partial (units (unkno wn) date) Thromboplastin Time unknown) Stat (unknown) (no (unknown) (unknown) Patient (units (unkno wn) date) Disposition: unknown) Admitted As Inpatient (unknown) (no (unknown) (unknown) Patient History (units (unknown) date) unknown) (unknown) (no (unknown) (unknown) Patient: (units (unkno wn) date) Elidia Rock unknown) MR#: [id number] (unknown) (no (unknown) (unknown) Patient: (units (unkno wn) date) Elidia Rock unknown) (unknown) (no (unknown) (unknown) Plt Count (units (unkn own) date) (150-400) X103/uL unknown) (unknown) (no (unknown) (unknown) Plt Count 290 (units ( unknown) date) (150-400) X103/uL unknown) (unknown) (no (unknown) (unknown) Polyethylene (units (u nknown) date) Glycol unknown) (Polyethylene Glycol 3350 17 Gm Powd.Pack) 17 gm PO DAILY (unknown) (no (unknown) (unknown) Potassium (units (unkn own) date) (3.4-5.1) mmol/L unknown) (unknown) (no (unknown) (unknown) Potassium 3.7 (units ( unknown) date) (3.4-5.1) mmol/L unknown) (unknown) (no (unknown) (unknown) Previous Rx's (units ( unknown) date) unknown) (unknown) (no (unknown) (unknown) Procedure: XR (units ( unknown) date) chest 1V unknown) (unknown) (no (unknown) (unknown) Procedure: XR hip (units (unknown) date) w pel if done LT 2V unknown) (unknown) (no (unknown) (unknown) Prothrombin Time (units (unknown) date) INR Stat unknown) (unknown) (no (unknown) (unknown) Pulse Oximetry 84 (units (unknown) date) L 03/23/22 15:47 unknown) (unknown) (no (unknown) (unknown) Pulse Oximetry 84 (units (unknown) date) L 82 L unknown) (unknown) (no (unknown) (unknown) Pulse Oximetry 84 (units (unknown) date) L 94 unknown) (unknown) (no (unknown) (unknown) Pulse Oximetry 86 (units (unknown) date) L 82 L unknown) (unknown) (no (unknown) (unknown) Pulse Oximetry 92 (units (unknown) date) 88 L unknown) (unknown) (no (unknown) (unknown) Pulse Oximetry 94 (units (unknown) date) unknown) (unknown) (no (unknown) (unknown) Pulse Oximetry 97 (units (unknown) date) 95 unknown) (unknown) (no (unknown) (unknown) Pulse Rate 59 L 59 (units (unknown) date) L unknown) (unknown) (no (unknown) (unknown) Pulse Rate 59 L (units (unknown) date) unknown) (unknown) (no (unknown) (unknown) Pulse Rate 60 59 L (units (unknown) date) unknown) (unknown) (no (unknown) (unknown) Pulse Rate 64 (units ( unknown) date) 03/23/22 15:47 unknown) (unknown) (no (unknown) (unknown) Pulse Rate 64 65 (units (unknown) date) unknown) (unknown) (no (unknown) (unknown) Pulse Rate 64 66 (units (unknown) date) unknown) (unknown) (no (unknown) (unknown) Pulse Rate 65 59 L (units (unknown) date) unknown) (unknown) (no (unknown) (unknown) RBC (4.0-5.2) (units ( unknown) date) X106/uL unknown) (unknown) (no (unknown) (unknown) RBC 3.95 L (units (unk nown) date) (4.0-5.2) X106/uL unknown) (unknown) (no (unknown) (unknown) RDW (11.6-14.8) % (units (unknown) date) unknown) (unknown) (no (unknown) (unknown) RDW 14.3 (units (unkno wn) date) (11.6-14.8) % unknown) (unknown) (no (unknown) (unknown) RESPIRATORY: Clear (units (unknown) date) to auscultation. unknown) Breath sounds equal bilaterally. No wheezes, (unknown) (no (unknown) (unknown) RESPIRATORY: (units (u nknown) date) negative dyspnea, unknown) cough (unknown) (no (unknown) (unknown) ROS Unobtainable: (units (unknown) date) All systems unknown) reviewed + are unremarkable except as noted in HPI (unknown) (no (unknown) (unknown) Radiologist's (units ( unknown) date) Impression: unknown) (unknown) (no (unknown) (unknown) Reevaluation #1: (units (unknown) date) unknown) (unknown) (no (unknown) (unknown) Reevaluation(s) (units (unknown) date) unknown) (unknown) (no (unknown) (unknown) Related Data (units (u nknown) date) unknown) (unknown) (no (unknown) (unknown) Respiratory Rate (units (unknown) date) 18 03/23/22 15:47 unknown) (unknown) (no (unknown) (unknown) Respiratory Rate (units (unknown) date) 18 22 unknown) (unknown) (no (unknown) (unknown) Respiratory Rate (units (unknown) date) 21 unknown) (unknown) (no (unknown) (unknown) Respiratory Rate (units (unknown) date) 26 H 35 H unknown) (unknown) (no (unknown) (unknown) Respiratory Rate (units (unknown) date) 33 H 27 H unknown) (unknown) (no (unknown) (unknown) Respiratory Rate (units (unknown) date) 36 H 39 H unknown) (unknown) (no (unknown) (unknown) Respiratory Rate (units (unknown) date) 39 H 31 H unknown) (unknown) (no (unknown) (unknown) Restrictive lung (units (unknown) date) disease unknown) (unknown) (no (unknown) (unknown) Result diagrams: (units (unknown) date) unknown) (unknown) (no (unknown) (unknown) Review of Systems (units (unknown) date) unknown) (unknown) (no (unknown) (unknown) SARS-CoV-2 (PCR) (units (unknown) date) (Negative) unknown) (unknown) (no (unknown) (unknown) SARS-CoV-2 (PCR) (units (unknown) date) Negative (Negative) unknown) (unknown) (no (unknown) (unknown) SKIN: Warm and dry (units (unknown) date) unknown) (unknown) (no (unknown) (unknown) SKIN: negative (units (unknown) date) rash, skin lesions unknown) (unknown) (no (unknown) (unknown) Sennosides (units (unk nown) date) (Sennosides 8.6 Mg unknown) Tablet) 8.6 mg PO BID PRN (unknown) (no (unknown) (unknown) Signed By: (units (unk nown) date) unknown) (unknown) (no (unknown) (unknown) Signed (units (unkno wn) date) unknown) (unknown) (no (unknown) (unknown) Sinus rhythm rate (units (unknown) date) [address] elevation unknown) or depression (unknown) (no (unknown) (unknown) Smoking Status: (units (unknown) date) Former smoker unknown) (unknown) (no (unknown) (unknown) Social History (units (unknown) date) (Reviewed 03/23/22 unknown) @ 16:07 by Liam Colón MD) (unknown) (no (unknown) (unknown) Sodium (137-145) (units (unknown) date) mmol/L unknown) (unknown) (no (unknown) (unknown) Sodium 135 L (units (u nknown) date) (137-145) mmol/L unknown) (unknown) (no (unknown) (unknown) Sodium Chloride (units (unknown) date) (Normal Saline unknown) 0.9%) 1,000 mls @ 1,000 mls/hr IV BOLUS ONE (unknown) (no (unknown) (unknown) Soft tissues:? The (units (unknown) date) visualized bowel unknown) gas pattern is normal.? No suspicious soft (unknown) (no (unknown) (unknown) Spoke with (units (unk nown) date) hospitalist, unknown) Mike, he will admit, however patient will need (unknown) (no (unknown) (unknown) Spoke with (units (unk nown) date) orthopedics, unknown) marjoriejazzy, will need to do surgery on the hip. (unknown) (no (unknown) (unknown) Stated Complaint: (units (unknown) date) hip pain unknown) (unknown) (no (unknown) (unknown) Stop: 03/23/22 (units (unknown) date) 17:02 unknown) (unknown) (no (unknown) (unknown) Stop: 03/23/22 (units (unknown) date) 17:09 unknown) (unknown) (no (unknown) (unknown) Substance Use (units ( unknown) date) Type: marijuana unknown) (unknown) (no (unknown) (unknown) Surgical History (units (unknown) date) (Reviewed 03/23/22 unknown) @ 16:07 by Liam Colón MD) (unknown) (no (unknown) (unknown) Surgical changes (units (unknown) date) and devices:? unknown) Surgical clips are seen in right hilar region.? (unknown) (no (unknown) (unknown) TECHNIQUE:? AP (units (unknown) date) pelvis with lateral unknown) view(s) of the left hip(s).? (unknown) (no (unknown) (unknown) TECHNIQUE:? One (units (unknown) date) view of the chest unknown) was acquired.? (unknown) (no (unknown) (unknown) Temperature 98.4 F (units (unknown) date) 03/23/22 15:47 unknown) (unknown) (no (unknown) (unknown) Temperature 98.4 F (units (unknown) date) unknown) (unknown) (no (unknown) (unknown) Temperature (units (un known) date) unknown) (unknown) (no (unknown) (unknown) There is (units (unkno wn) date) unknown) (unknown) (no (unknown) (unknown) Time Seen by (units (u nknown) date) Provider: 03/23/22 unknown) 16:03 (unknown) (no (unknown) (unknown) Time: 16:45 (units (un known) date) unknown) (unknown) (no (unknown) (unknown) Time: 16:50 (units (un known) date) unknown) (unknown) (no (unknown) (unknown) Time: 17:19 (units (un known) date) unknown) (unknown) (no (unknown) (unknown) Total Bilirubin (units (unknown) date) (0.2-1.3) mg/dL unknown) (unknown) (no (unknown) (unknown) Total Bilirubin (units (unknown) date) 0.7 (0.2-1.3) mg/dL unknown) (unknown) (no (unknown) (unknown) Total Creatine (units (unknown) date) Kinase (30-135) U/L unknown) (unknown) (no (unknown) (unknown) Total Creatine (units (unknown) date) Kinase 88 (30-135) unknown) U/L (unknown) (no (unknown) (unknown) Total Protein (units ( unknown) date) (6.3-8.2) g/dL unknown) (unknown) (no (unknown) (unknown) Total Protein 6.2 (units (unknown) date) L (6.3-8.2) g/dL unknown) (unknown) (no (unknown) (unknown) Troponin + CK (units ( unknown) date) Cardiac Panel Stat unknown) (unknown) (no (unknown) (unknown) Troponin I (units (unk nown) date) (0.01-0.034) ng/mL unknown) (unknown) (no (unknown) (unknown) Troponin I 0.050 H (units (unknown) date) (0.01-0.034) ng/mL unknown) (unknown) (no (unknown) (unknown) Updated patient (units (unknown) date) results and will unknown) need surgery. She understands. (unknown) (no (unknown) (unknown) Urine Drug Screen, (units (unknown) date) Rapid Stat unknown) (unknown) (no (unknown) (unknown) Vital Signs - 8 hr (units (unknown) date) unknown) (unknown) (no (unknown) (unknown) Vital Signs (units (un known) date) unknown) (unknown) (no (unknown) (unknown) Vital signs: (units (u nknown) date) unknown) (unknown) (no (unknown) (unknown) WBC (4.5-11.0) (units (unknown) date) X103/uL unknown) (unknown) (no (unknown) (unknown) WBC 10.4 (units (unkno wn) date) (4.5-11.0) X103/uL unknown) (unknown) (no (unknown) (unknown) XR chest 1V Stat (units (unknown) date) unknown) (unknown) (no (unknown) (unknown) XR hip w pel if (units (unknown) date) done LT 2V Stat unknown) (unknown) (no (unknown) (unknown) XRay Report (units (un known) date) unknown) (unknown) (no (unknown) (unknown) [Embedded Image (units (unknown) date) Not Available] unknown) (unknown) (no (unknown) (unknown) [From Septra] (units ( unknown) date) unknown) (unknown) (no (unknown) (unknown) adhesive tape (units ( unknown) date) AdvReac Verified unknown) 03/23/22 16:34 (unknown) (no (unknown) (unknown) alcohol intake (units (unknown) date) frequency: 0-2 unknown) drinks per day (unknown) (no (unknown) (unknown) and below (units (unkn own) date) unknown) (unknown) (no (unknown) (unknown) and doing very (units (unknown) date) well. At this time unknown) uncertain etiology of patient's arrival vital (unknown) (no (unknown) (unknown) and knee. Very (units (unknown) date) painful with unknown) passive or active attempt of moving the left hip. (unknown) (no (unknown) (unknown) any other injury (units (unknown) date) or pain. She is not unknown) on any blood thinners. She did recently (unknown) (no (unknown) (unknown) appear (units (unkno wn) date) unknown) (unknown) (no (unknown) (unknown) calcifications.? (units (unknown) date) unknown) (unknown) (no (unknown) (unknown) capsule,delayed (units (unknown) date) release (Nexium) unknown) (unknown) (no (unknown) (unknown) cardiac clearance (units (unknown) date) and echocardiogram. unknown) (unknown) (no (unknown) (unknown) desloratadine 5 mg (units (unknown) date) tablet 5 mg PO BID unknown) PRN nasal congestion 01/18/22 (unknown) (no (unknown) (unknown) dislocation/dehydr (units (unknown) date) ation) unknown) (unknown) (no (unknown) (unknown) done. She was at (units (unknown) date) [facility] and unknown) [place]. Patient states she is not eaten or (unknown) (no (unknown) (unknown) drank very much (units (unknown) date) today. Has felt unknown) tired and weak though. 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 Patient in no (unknown) (no (unknown) (unknown) dyspnea or chest (units (unknown) date) pain. Denies any unknown) dizziness. No black or bloody stools (unknown) (no (unknown) (unknown) esomeprazole (units (u nknown) date) magnesium 40 mg 40 unknown) mg PO QDAY ##0 11/29/12 (unknown) (no (unknown) (unknown) extended release (units (unknown) date) 12 hr (Mucinex) unknown) (unknown) (no (unknown) (unknown) femoral (units (unkno wn) date) unknown) (unknown) (no (unknown) (unknown) fluoxetine 40 mg (units (unknown) date) capsule (Prozac) 80 unknown) 1 ##0 11/29/12 (unknown) (no (unknown) (unknown) focal (units (unkno wn) date) unknown) (unknown) (no (unknown) (unknown) fracture. Blood (units (unknown) date) pressure has unknown) improved with IV fluids. O2 saturation improved (unknown) (no (unknown) (unknown) guaifenesin 600 mg (units (unknown) date) tablet, 600 mg PO unknown) BID #20 tabs 01/18/22 (unknown) (no (unknown) (unknown) head..? Pelvic (units (unknown) date) ring appears unknown) intact.? No suspicious bony lesions.? (unknown) (no (unknown) (unknown) infiltrate.? No (units (unknown) date) pleural effusions unknown) or pneumothorax.? (unknown) (no (unknown) (unknown) joint (units (unkno wn) date) osteoarthritic unknown) changes are noted.? No evidence of avascular necrosis of (unknown) (no (unknown) (unknown) ketorolac 10 mg (units (unknown) date) tablet 10 mg PO Q6H unknown) PRN pain #14 tabs 06/07/21 (unknown) (no (unknown) (unknown) left leg and (units (u nknown) date) external rotation unknown) of the foot. Foot is warm soft and pink with (unknown) (no (unknown) (unknown) levothyroxine 125 (units (unknown) date) mcg tablet ##0 unknown) 11/29/12 (unknown) (no (unknown) (unknown) lidocaine 5 % (units ( unknown) date) topical patch 1 unknown) patch topical DAILY #15 ea 06/07/21 (unknown) (no (unknown) (unknown) meloxicam 7.5 mg (units (unknown) date) tablet (Mobic) ##0 unknown) 11/29/12 (unknown) (no (unknown) (unknown) methocarbamol 500 (units (unknown) date) mg tablet 500 mg PO unknown) TID PRN muscle aches #14 01/18/22 (unknown) (no (unknown) (unknown) nirmatrelvir 300 (units (unknown) date) mg (150 mg See Rx unknown) Instructions PO .COMPLEX 01/18/22 (unknown) (no (unknown) (unknown) oxycodone 5 mg (units (unknown) date) tablet (Roxicodone) unknown) 5 mg PO Q4P ##0 11/29/12 (unknown) (no (unknown) (unknown) pack(EUA) (units (unkn own) date) (Paxlovid) unknown) (unknown) (no (unknown) (unknown) pain or dyspnea or (units (unknown) date) palpitations. unknown) Patient placed in bed. Pants shoes socks (unknown) (no (unknown) (unknown) pneumothorax. (units ( unknown) date) unknown) (unknown) (no (unknown) (unknown) pregabalin 100 mg (units (unknown) date) capsule (Lyrica) 1 unknown) Q DAY ##0 11/29/12 (unknown) (no (unknown) (unknown) prior lower (units (un known) date) thoracic spine unknown) vertebral body kyphoplasty. (unknown) (no (unknown) (unknown) rales, or rhonchi. (units (unknown) date) unknown) (unknown) (no (unknown) (unknown) recently. Patient (units (unknown) date) states she got unknown) tangled up with the [employer] walking her dog (unknown) (no (unknown) (unknown) related to drug (units (unknown) date) screen as well. unknown) (unknown) (no (unknown) (unknown) removed and placed (units (unknown) date) in a gown. Left leg unknown) is slightly shortened and externally (unknown) (no (unknown) (unknown) respiratory (units (un known) date) distress and unknown) breathing and speaking with ease. Vital signs may be (unknown) (no (unknown) (unknown) rosuvastatin 20 mg (units (unknown) date) tablet (Crestor) unknown) ##0 11/29/12 (unknown) (no (unknown) (unknown) rotated. 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 O2 saturation likely (unknown) (no (unknown) (unknown) stay at hospital (units (unknown) date) last month for a unknown) heart attack she states. No surgeries were (unknown) (no (unknown) (unknown) strong pedal pulse (units (unknown) date) with light touch unknown) intact to foot and toes. Nontender ankle (unknown) (no (unknown) (unknown) substance use (units ( unknown) date) type: does not use unknown) (unknown) (no (unknown) (unknown) sulfamethoxazole (units (unknown) date) Allergy Verified unknown) 03/23/22 16:34 (unknown) (no (unknown) (unknown) superior migration (units (unknown) date) of left proximal unknown) femur in relation to femoral head.? (unknown) (no (unknown) (unknown) tabs (units (unkno wn) date) unknown) (unknown) (no (unknown) (unknown) tissue (units (unkno wn) date) unknown) (unknown) (no (unknown) (unknown) today and she fell (units (unknown) date) onto her left hip. unknown) On complains of left hip pain. Denies (unknown) (no (unknown) (unknown) trimethoprim [From (units (unknown) date) Septra] Allergy unknown) Verified 03/23/22 16:34 (unknown) (no (unknown) (unknown) unremarkable.? (units (unknown) date) unknown) (unknown) (no (unknown) (unknown) venlafaxine 50 mg (units (unknown) date) tablet 50 mg PO ##0 unknown) 11/29/12 (unknown) (no (unknown) (unknown) with nasal (units (unk nown) date) cannula. No unknown) vasopressors are needed. Patient on 2 L nasal cannula (unknown) (no (unknown) (unknown) with (units (unkno wn) date) unknown) (unknown) (no (unknown) (unknown) x2)-ritonavir 100 (units (unknown) date) mg tablet,dose #30 unknown) ea Result panel 153 (unknown) (no (unknown) (unknown) (no value) (units (unk nown) date) unknown) (unknown) (no (unknown) (unknown) (Clarinex) #20 (units (unknown) date) tabs unknown) (unknown) (no (unknown) (unknown) (Lidoderm) (units (unk nown) date) unknown) (unknown) (no (unknown) (unknown) (Synthroid) (units (un known) date) unknown) (unknown) (no (unknown) (unknown) (past 8 hours): (units (unknown) date) unknown) (unknown) (no (unknown) (unknown) -ECHO shows EF (units (unknown) date) 60-65 unknown) (unknown) (no (unknown) (unknown) -IV pain (units (unkno wn) date) medications ordered unknown) (unknown) (no (unknown) (unknown) -PT/OT after (units (u nknown) date) surgery unknown) (unknown) (no (unknown) (unknown) -did get lasix on (units (unknown) date) admit, with good unknown) urine output (unknown) (no (unknown) (unknown) -did require (units (u nknown) date) intermittent oxygen unknown) support (unknown) (no (unknown) (unknown) -has known history (units (unknown) date) of ILD, and recent unknown) cardiac medical issue per patient (unknown) (no (unknown) (unknown) -keep in bed until (units (unknown) date) surgery unknown) (unknown) (no (unknown) (unknown) -ortho consulted (units (unknown) date) and plan for unknown) surgery 03/24 (unknown) (no (unknown) (unknown) -suspect this may (units (unknown) date) be secondary to unknown) ILD, vs fluid overload (unknown) (no (unknown) (unknown) -trend troponins (units (unknown) date) unknown) (unknown) (no (unknown) (unknown) [id number] (units (unkno wn) date) unknown) (unknown) (no (unknown) (unknown) 1. Left hip (units (un known) date) fracture unknown) (unknown) (no (unknown) (unknown) 03/23/22 03/23/22 (units (unknown) date) 03/23/22 unknown) (unknown) (no (unknown) (unknown) 03/23/22 16:12 (units (unknown) date) unknown) (unknown) (no (unknown) (unknown) 03/23/22 (units (unkno wn) date) unknown) (unknown) (no (unknown) (unknown) 14 systems (units (unk nown) date) reviewed and unknown) negative aside from what is noted in HPI (unknown) (no (unknown) (unknown) 15:47 03/23/22 (units (unknown) date) unknown) (unknown) (no (unknown) (unknown) 15:59 03/23/22 (units (unknown) date) unknown) (unknown) (no (unknown) (unknown) 16:00 03/23/22 (units (unknown) date) unknown) (unknown) (no (unknown) (unknown) 16:00 (units (unkno wn) date) unknown) (unknown) (no (unknown) (unknown) 16:04 03/23/22 (units (unknown) date) unknown) (unknown) (no (unknown) (unknown) 16:04 (units (unkno wn) date) unknown) (unknown) (no (unknown) (unknown) 16:05 03/23/22 (units (unknown) date) unknown) (unknown) (no (unknown) (unknown) 16:10 (units (unkno wn) date) unknown) (unknown) (no (unknown) (unknown) 16:12 16:12 16:12 (units (unknown) date) unknown) (unknown) (no (unknown) (unknown) 16:12 16:54 17:07 (units (unknown) date) unknown) (unknown) (no (unknown) (unknown) 16:15 03/23/22 (units (unknown) date) unknown) (unknown) (no (unknown) (unknown) 16:17 03/23/22 (units (unknown) date) unknown) (unknown) (no (unknown) (unknown) 16:17 (units (unkno wn) date) unknown) (unknown) (no (unknown) (unknown) 16:20 03/23/22 (units (unknown) date) unknown) (unknown) (no (unknown) (unknown) 16:25 03/23/22 (units (unknown) date) unknown) (unknown) (no (unknown) (unknown) 16:25 (units (unkno wn) date) unknown) (unknown) (no (unknown) (unknown) 16:29 03/23/22 (units (unknown) date) unknown) (unknown) (no (unknown) (unknown) 16:30 03/23/22 (units (unknown) date) unknown) (unknown) (no (unknown) (unknown) 16:30 (units (unkno wn) date) unknown) (unknown) (no (unknown) (unknown) 16:43 03/23/22 (units (unknown) date) unknown) (unknown) (no (unknown) (unknown) 16:45 (units (unkno wn) date) unknown) (unknown) (no (unknown) (unknown) 16:50 03/23/22 (units (unknown) date) unknown) (unknown) (no (unknown) (unknown) 16:55 03/23/22 (units (unknown) date) unknown) (unknown) (no (unknown) (unknown) 17:00 (units (unkno wn) date) unknown) (unknown) (no (unknown) (unknown) 17:05 03/23/22 (units (unknown) date) unknown) (unknown) (no (unknown) (unknown) 17:10 03/23/22 (units (unknown) date) unknown) (unknown) (no (unknown) (unknown) 17:15 (units (unkno wn) date) unknown) (unknown) (no (unknown) (unknown) 17:20 03/23/22 (units (unknown) date) unknown) (unknown) (no (unknown) (unknown) 17:25 03/23/22 (units (unknown) date) unknown) (unknown) (no (unknown) (unknown) 17:30 (units (unkno wn) date) unknown) (unknown) (no (unknown) (unknown) 17:35 03/23/22 (units (unknown) date) unknown) (unknown) (no (unknown) (unknown) 17:40 03/23/22 (units (unknown) date) unknown) (unknown) (no (unknown) (unknown) 17:45 (units (unkno wn) date) unknown) (unknown) (no (unknown) (unknown) 17:50 03/23/22 (units (unknown) date) unknown) (unknown) (no (unknown) (unknown) 17:55 03/23/22 (units (unknown) date) unknown) (unknown) (no (unknown) (unknown) 18:00 (units (unkno wn) date) unknown) (unknown) (no (unknown) (unknown) 18:05 03/23/22 (units (unknown) date) unknown) (unknown) (no (unknown) (unknown) 18:10 03/23/22 (units (unknown) date) unknown) (unknown) (no (unknown) (unknown) 18:15 (units (unkno wn) date) unknown) (unknown) (no (unknown) (unknown) 18:20 03/23/22 (units (unknown) date) unknown) (unknown) (no (unknown) (unknown) 18:25 03/23/22 (units (unknown) date) unknown) (unknown) (no (unknown) (unknown) 18:30 (units (unkno wn) date) unknown) (unknown) (no (unknown) (unknown) 18:35 03/23/22 (units (unknown) date) unknown) (unknown) (no (unknown) (unknown) 19:35 (units (unkno wn) date) unknown) (unknown) (no (unknown) (unknown) 2. Acute (units (unkno wn) date) respiratory unknown) distress (unknown) (no (unknown) (unknown) ABD: soft, (units (unk nown) date) nontender, unknown) nondistended, no organomegaly (unknown) (no (unknown) (unknown) ALT 30 (units (unkno wn) date) unknown) (unknown) (no (unknown) (unknown) ALT (units (unkno wn) date) unknown) (unknown) (no (unknown) (unknown) APTT 36 (units (unkno wn) date) unknown) (unknown) (no (unknown) (unknown) APTT (units (unkno wn) date) unknown) (unknown) (no (unknown) (unknown) AST 32 (units (unkno wn) date) unknown) (unknown) (no (unknown) (unknown) AST (units (unkno wn) date) unknown) (unknown) (no (unknown) (unknown) Age/Sex: 72 / F (units (unknown) date) unknown) (unknown) (no (unknown) (unknown) Albumin 3.7 (units (un known) date) unknown) (unknown) (no (unknown) (unknown) Albumin (units (unkno wn) date) unknown) (unknown) (no (unknown) (unknown) Albumin/Globulin (units (unknown) date) Ratio 1.5 unknown) (unknown) (no (unknown) (unknown) Albumin/Globulin (units (unknown) date) Ratio unknown) (unknown) (no (unknown) (unknown) Alkaline (units (unkno wn) date) Phosphatase 88 unknown) (unknown) (no (unknown) (unknown) Alkaline (units (unkno wn) date) Phosphatase unknown) (unknown) (no (unknown) (unknown) Allergies (units (unkn own) date) unknown) (unknown) (no (unknown) (unknown) Allergy/AdvReac (units (unknown) date) Type Severity unknown) Reaction Status Date / Time (unknown) (no (unknown) (unknown) Assessment + Plan (units (unknown) date) narrative: unknown) (unknown) (no (unknown) (unknown) Assessment + Plan (units (unknown) date) unknown) (unknown) (no (unknown) (unknown) BUN 25 H (units (unkno wn) date) unknown) (unknown) (no (unknown) (unknown) BUN (units (unkno wn) date) unknown) (unknown) (no (unknown) (unknown) BUN/Creatinine (units (unknown) date) Ratio 25.0 H unknown) (unknown) (no (unknown) (unknown) BUN/Creatinine (units (unknown) date) Ratio unknown) (unknown) (no (unknown) (unknown) Baso # (Auto) 100 (units (unknown) date) unknown) (unknown) (no (unknown) (unknown) Baso # (Auto) (units ( unknown) date) unknown) (unknown) (no (unknown) (unknown) Baso % (Auto) 0.8 (units (unknown) date) unknown) (unknown) (no (unknown) (unknown) Baso % (Auto) (units ( unknown) date) unknown) (unknown) (no (unknown) (unknown) Been Physically (units (unknown) date) Hurt or No unknown) (unknown) (no (unknown) (unknown) Blood Pressure (units (unknown) date) 108/55 L unknown) (unknown) (no (unknown) (unknown) Blood Pressure (units (unknown) date) 113/44 L unknown) (unknown) (no (unknown) (unknown) Blood Pressure (units (unknown) date) 67/41 L 91/47 L unknown) (unknown) (no (unknown) (unknown) Blood Pressure (units (unknown) date) 90/44 L 97/49 L unknown) (unknown) (no (unknown) (unknown) Blood Pressure (units (unknown) date) 91/45 L unknown) (unknown) (no (unknown) (unknown) Blood Pressure (units (unknown) date) 94/48 L unknown) (unknown) (no (unknown) (unknown) Blood Pressure (units (unknown) date) 98/48 L unknown) (unknown) (no (unknown) (unknown) Blood Pressure (units (unknown) date) unknown) (unknown) (no (unknown) (unknown) CK-MB (CK-2) Rel (units (unknown) date) Index TNP unknown) (unknown) (no (unknown) (unknown) CK-MB (CK-2) Rel (units (unknown) date) Index unknown) (unknown) (no (unknown) (unknown) CK-MB (CK-2) TNP (units (unknown) date) unknown) (unknown) (no (unknown) (unknown) CK-MB (CK-2) (units (u nknown) date) unknown) (unknown) (no (unknown) (unknown) CODE: Full (units (unk nown) date) unknown) (unknown) (no (unknown) (unknown) CV: regular rate (units (unknown) date) and rhythm, no unknown) murmurs (unknown) (no (unknown) (unknown) Calcium 8.8 (units (un known) date) unknown) (unknown) (no (unknown) (unknown) Calcium (units (unkno wn) date) unknown) (unknown) (no (unknown) (unknown) Carbon Dioxide 26 (units (unknown) date) unknown) (unknown) (no (unknown) (unknown) Carbon Dioxide (units (unknown) date) unknown) (unknown) (no (unknown) (unknown) Chest xray read as (units (unknown) date) cardiomegaly and unknown) mild congestion for which she was given (unknown) (no (unknown) (unknown) Chief complaint: (units (unknown) date) hip pain unknown) (unknown) (no (unknown) (unknown) Chloride 101 (units (u nknown) date) unknown) (unknown) (no (unknown) (unknown) Chloride (units (unkno wn) date) unknown) (unknown) (no (unknown) (unknown) Creatinine 1.00 (units (unknown) date) unknown) (unknown) (no (unknown) (unknown) Creatinine (units (unk nown) date) unknown) (unknown) (no (unknown) (unknown) Critical Care (units ( unknown) date) time: unknown) (unknown) (no (unknown) (unknown) : 1950 (units (unknown) date) Acct:[id number] unknown) (unknown) (no (unknown) (unknown) Date Patient Seen: (units (unknown) date) 03/23/22 unknown) (unknown) (no (unknown) (unknown) Date of Service: (units (unknown) date) 03/23/22 unknown) (unknown) (no (unknown) (unknown) Deep Vein (units (unkn own) date) Thrombosis/Pulmonar unknown) y Embolism Present on Admission: No (unknown) (no (unknown) (unknown) EXT: warm and well (units (unknown) date) perfused, left leg unknown) tenderness (unknown) (no (unknown) (unknown) Environment (units (un known) date) unknown) (unknown) (no (unknown) (unknown) Eos # (Auto) 200 (units (unknown) date) unknown) (unknown) (no (unknown) (unknown) Eos # (Auto) (units (u nknown) date) unknown) (unknown) (no (unknown) (unknown) Eos % (Auto) 1.9 L (units (unknown) date) unknown) (unknown) (no (unknown) (unknown) Eos % (Auto) (units (u nknown) date) unknown) (unknown) (no (unknown) (unknown) Estimated GFR > 60 (units (unknown) date) unknown) (unknown) (no (unknown) (unknown) Estimated GFR (units ( unknown) date) unknown) (unknown) (no (unknown) (unknown) Ethyl Alcohol < 10 (units (unknown) date) unknown) (unknown) (no (unknown) (unknown) Ethyl Alcohol (units ( unknown) date) unknown) (unknown) (no (unknown) (unknown) Exam Narrative: (units (unknown) date) unknown) (unknown) (no (unknown) (unknown) Exam (units (unkno wn) date) unknown) (unknown) (no (unknown) (unknown) Family + Social (units (unknown) date) History unknown) (unknown) (no (unknown) (unknown) Family history: (units (unknown) date) mother with TIA unknown) (unknown) (no (unknown) (unknown) Feels Safe in (units ( unknown) date) Current Yes unknown) (unknown) (no (unknown) (unknown) Fibromyalgia (units (u nknown) date) unknown) (unknown) (no (unknown) (unknown) GEN: distress from (units (unknown) date) pain unknown) (unknown) (no (unknown) (unknown) Globulin 2.5 (units (u nknown) date) unknown) (unknown) (no (unknown) (unknown) Globulin (units (unkno wn) date) unknown) (unknown) (no (unknown) (unknown) Glucosamine (units (un known) date) Sulfate unknown) (GLUCOSAMINE) ##0 11/29/12 History (unknown) (no (unknown) (unknown) Glucose 115 H (units ( unknown) date) unknown) (unknown) (no (unknown) (unknown) Glucose (units (unkno wn) date) unknown) (unknown) (no (unknown) (unknown) HEENT: moist (units (u nknown) date) mucous membranes, unknown) PERRL (unknown) (no (unknown) (unknown) Hct 34.5 L (units (unk nown) date) unknown) (unknown) (no (unknown) (unknown) Hct (units (unkno wn) date) unknown) (unknown) (no (unknown) (unknown) Hgb 11.5 L (units (unk nown) date) unknown) (unknown) (no (unknown) (unknown) Hgb (units (unkno wn) date) unknown) (unknown) (no (unknown) (unknown) History + Physical (units (unknown) date) Report unknown) (unknown) (no (unknown) (unknown) History of Present (units (unknown) date) Illness unknown) (unknown) (no (unknown) (unknown) Home Medications (units (unknown) date) and Allergies unknown) (unknown) (no (unknown) (unknown) Home Medications (units (unknown) date) unknown) (unknown) (no (unknown) (unknown) Hypertension (units (u nknown) date) unknown) (unknown) (no (unknown) (unknown) Hypothyroidism (units (unknown) date) unknown) (unknown) (no (unknown) (unknown) I have utilized (units (unknown) date) all available unknown) resources to reconcile the patient's home (unknown) (no (unknown) (unknown) I spent a total of (units (unknown) date) [] minutes of unknown) critical care time on this patient's care (unknown) (no (unknown) (unknown) INR 1.2 (units (unkno wn) date) unknown) (unknown) (no (unknown) (unknown) INR (units (unkno wn) date) unknown) (unknown) (no (unknown) (unknown) In the ED workup (units (unknown) date) was done, vitals unknown) notable for afebrile, initial blood pressure (unknown) (no (unknown) (unknown) [facility] (units (unknown) date) [address] unknown) [place] [address] (unknown) (no (unknown) (unknown) Laboratory Results (units (unknown) date) - last 24 hr unknown) (unknown) (no (unknown) (unknown) Labs (units (unkno wn) date) unknown) (unknown) (no (unknown) (unknown) Labs: (units (unkno wn) date) unknown) (unknown) (no (unknown) (unknown) Lymph # (Auto) (units (unknown) date) 2000 unknown) (unknown) (no (unknown) (unknown) Lymph # (Auto) (units (unknown) date) unknown) (unknown) (no (unknown) (unknown) Lymph % (Auto) (units (unknown) date) 19.6 L unknown) (unknown) (no (unknown) (unknown) Lymph % (Auto) (units (unknown) date) unknown) (unknown) (no (unknown) (unknown) MCH 29.0 (units (unkno wn) date) unknown) (unknown) (no (unknown) (unknown) MCH (units (unkno wn) date) unknown) (unknown) (no (unknown) (unknown) MCHC 33.2 (units (unkn own) date) unknown) (unknown) (no (unknown) (unknown) MCHC (units (unkno wn) date) unknown) (unknown) (no (unknown) (unknown) MCV 87.4 (units (unkno wn) date) unknown) (unknown) (no (unknown) (unknown) MCV (units (unkno wn) date) unknown) (unknown) (no (unknown) (unknown) Magnesium 1.9 (units ( unknown) date) unknown) (unknown) (no (unknown) (unknown) Magnesium (units (unkn own) date) unknown) (unknown) (no (unknown) (unknown) Medical History (units (unknown) date) (Reviewed 03/23/22 unknown) @ 21:59 by Lincoln Valenzuela MD) (unknown) (no (unknown) (unknown) Medication (units (unk nown) date) Instructions unknown) Recorded Confirmed Type (unknown) (no (unknown) (unknown) Meds (units (unkno wn) date) unknown) (unknown) (no (unknown) (unknown) [place] # (Auto) 800 (units (unknown) date) unknown) (unknown) (no (unknown) (unknown) [place] # (Auto) (units ( unknown) date) unknown) (unknown) (no (unknown) (unknown) [place] % (Auto) 7.6 (units (unknown) date) unknown) (unknown) (no (unknown) (unknown) [place] % (Auto) (units ( unknown) date) unknown) (unknown) (no (unknown) (unknown) Ms. Rock is a (units (unknown) date) 72W with idiopathic unknown) pulmonary fibrosis, HTN, hypothyroid, (unknown) (no (unknown) (unknown) NECK: trachea (units ( unknown) date) midline, no JVD unknown) (unknown) (no (unknown) (unknown) NEURO: awake, (units ( unknown) date) alert, oriented, no unknown) focal deficits (unknown) (no (unknown) (unknown) Narrative (units (unkn own) date) unknown) (unknown) (no (unknown) (unknown) Narrative: (units (unk nown) date) unknown) (unknown) (no (unknown) (unknown) Neut # (Auto) 7300 (units (unknown) date) H unknown) (unknown) (no (unknown) (unknown) Neut # (Auto) (units ( unknown) date) unknown) (unknown) (no (unknown) (unknown) Neut % (Auto) 70.1 (units (unknown) date) unknown) (unknown) (no (unknown) (unknown) Neut % (Auto) (units ( unknown) date) unknown) (unknown) (no (unknown) (unknown) No pertinent past (units (unknown) date) surgical history unknown) (unknown) (no (unknown) (unknown) Objective (units (unkn own) date) unknown) (unknown) (no (unknown) (unknown) Oxygen Delivery (units (unknown) date) Method Nasal unknown) Cannula Nasal Cannula Nasal Cannula (unknown) (no (unknown) (unknown) Oxygen Delivery (units (unknown) date) Method Nasal unknown) Cannula (unknown) (no (unknown) (unknown) Oxygen Delivery (units (unknown) date) Method Room Air unknown) (unknown) (no (unknown) (unknown) Oxygen Delivery (units (unknown) date) Method unknown) (unknown) (no (unknown) (unknown) Oxygen Flow Rate 0 (units (unknown) date) unknown) (unknown) (no (unknown) (unknown) Oxygen Flow Rate (units (unknown) date) 1.5 0 unknown) (unknown) (no (unknown) (unknown) Oxygen Flow Rate 2 (units (unknown) date) 2 2 unknown) (unknown) (no (unknown) (unknown) Oxygen Flow Rate 2 (units (unknown) date) unknown) (unknown) (no (unknown) (unknown) Oxygen Flow Rate (units (unknown) date) 3.5 unknown) (unknown) (no (unknown) (unknown) Oxygen Flow Rate (units (unknown) date) unknown) (unknown) (no (unknown) (unknown) PT 14.2 H (units (unkn own) date) unknown) (unknown) (no (unknown) (unknown) PT (units (unkno wn) date) unknown) (unknown) (no (unknown) (unknown) PULM: fine (units (unk nown) date) crackles unknown) bilaterally (unknown) (no (unknown) (unknown) Patient History (units (unknown) date) unknown) (unknown) (no (unknown) (unknown) Patient: (units (unkno wn) date) Elidia Rock unknown) MR#: [id number] (unknown) (no (unknown) (unknown) Plt Count 290 (units ( unknown) date) unknown) (unknown) (no (unknown) (unknown) Plt Count (units (unkn own) date) unknown) (unknown) (no (unknown) (unknown) Potassium 3.7 (units ( unknown) date) unknown) (unknown) (no (unknown) (unknown) Potassium (units (unkn own) date) unknown) (unknown) (no (unknown) (unknown) Prior Living (units (u nknown) date) Arrangements House unknown) (unknown) (no (unknown) (unknown) Provider: (units (unkn own) date) Lincoln Valenzuela MD unknown) (unknown) (no (unknown) (unknown) Proxy: [place] (units (unknown) date) [place] unknown) partner (unknown) (no (unknown) (unknown) Pulse Oximetry 84 (units (unknown) date) L 82 L unknown) (unknown) (no (unknown) (unknown) Pulse Oximetry 84 (units (unknown) date) L 94 unknown) (unknown) (no (unknown) (unknown) Pulse Oximetry 86 (units (unknown) date) L 82 L unknown) (unknown) (no (unknown) (unknown) Pulse Oximetry 86 (units (unknown) date) L 88 L 85 L unknown) (unknown) (no (unknown) (unknown) Pulse Oximetry 89 (units (unknown) date) L 95 96 unknown) (unknown) (no (unknown) (unknown) Pulse Oximetry 91 (units (unknown) date) 92 93 unknown) (unknown) (no (unknown) (unknown) Pulse Oximetry 92 (units (unknown) date) 88 L unknown) (unknown) (no (unknown) (unknown) Pulse Oximetry 93 (units (unknown) date) 91 92 unknown) (unknown) (no (unknown) (unknown) Pulse Oximetry 93 (units (unknown) date) 93 unknown) (unknown) (no (unknown) (unknown) Pulse Oximetry 94 (units (unknown) date) 96 94 unknown) (unknown) (no (unknown) (unknown) Pulse Oximetry 94 (units (unknown) date) unknown) (unknown) (no (unknown) (unknown) Pulse Oximetry 95 (units (unknown) date) 93 unknown) (unknown) (no (unknown) (unknown) Pulse Oximetry 95 (units (unknown) date) 96 94 unknown) (unknown) (no (unknown) (unknown) Pulse Oximetry 97 (units (unknown) date) 95 unknown) (unknown) (no (unknown) (unknown) Pulse Oximetry 99 (units (unknown) date) 90 L 94 unknown) (unknown) (no (unknown) (unknown) Pulse Rate 59 L 59 (units (unknown) date) L 60 unknown) (unknown) (no (unknown) (unknown) Pulse Rate 59 L 59 (units (unknown) date) L unknown) (unknown) (no (unknown) (unknown) Pulse Rate 59 L (units (unknown) date) unknown) (unknown) (no (unknown) (unknown) Pulse Rate 60 59 L (units (unknown) date) unknown) (unknown) (no (unknown) (unknown) Pulse Rate 61 60 (units (unknown) date) 61 unknown) (unknown) (no (unknown) (unknown) Pulse Rate 62 62 (units (unknown) date) 62 unknown) (unknown) (no (unknown) (unknown) Pulse Rate 62 66 (units (unknown) date) 68 unknown) (unknown) (no (unknown) (unknown) Pulse Rate 63 64 (units (unknown) date) 66 unknown) (unknown) (no (unknown) (unknown) Pulse Rate 64 65 (units (unknown) date) unknown) (unknown) (no (unknown) (unknown) Pulse Rate 64 66 (units (unknown) date) unknown) (unknown) (no (unknown) (unknown) Pulse Rate 65 59 L (units (unknown) date) unknown) (unknown) (no (unknown) (unknown) Pulse Rate 66 65 (units (unknown) date) 64 unknown) (unknown) (no (unknown) (unknown) Pulse Rate 67 63 (units (unknown) date) unknown) (unknown) (no (unknown) (unknown) Pulse Rate 67 67 (units (unknown) date) 67 unknown) (unknown) (no (unknown) (unknown) Pulse Rate 67 69 (units (unknown) date) 68 unknown) (unknown) (no (unknown) (unknown) Quality (units (unkno wn) date) unknown) (unknown) (no (unknown) (unknown) RBC 3.95 L (units (unk nown) date) unknown) (unknown) (no (unknown) (unknown) RBC (units (unkno wn) date) unknown) (unknown) (no (unknown) (unknown) RDW 14.3 (units (unkno wn) date) unknown) (unknown) (no (unknown) (unknown) RDW (units (unkno wn) date) unknown) (unknown) (no (unknown) (unknown) Respiratory Rate (units (unknown) date) 18 22 unknown) (unknown) (no (unknown) (unknown) Respiratory Rate (units (unknown) date) 21 12 unknown) (unknown) (no (unknown) (unknown) Respiratory Rate (units (unknown) date) 21 unknown) (unknown) (no (unknown) (unknown) Respiratory Rate (units (unknown) date) 26 H 35 H unknown) (unknown) (no (unknown) (unknown) Respiratory Rate (units (unknown) date) 30 H 34 H 40 H unknown) (unknown) (no (unknown) (unknown) Respiratory Rate (units (unknown) date) 31 H 17 unknown) (unknown) (no (unknown) (unknown) Respiratory Rate (units (unknown) date) 32 H 29 H 27 H unknown) (unknown) (no (unknown) (unknown) Respiratory Rate (units (unknown) date) 33 H 27 H unknown) (unknown) (no (unknown) (unknown) Respiratory Rate (units (unknown) date) 33 H 36 H 41 H unknown) (unknown) (no (unknown) (unknown) Respiratory Rate (units (unknown) date) 36 H 39 H unknown) (unknown) (no (unknown) (unknown) Respiratory Rate (units (unknown) date) 39 H 31 H 33 H unknown) (unknown) (no (unknown) (unknown) Respiratory Rate (units (unknown) date) 39 H 31 H unknown) (unknown) (no (unknown) (unknown) Respiratory Rate (units (unknown) date) 40 H 31 H 40 H unknown) (unknown) (no (unknown) (unknown) Respiratory Rate (units (unknown) date) 43 H 32 H 38 H unknown) (unknown) (no (unknown) (unknown) Respiratory Rate (units (unknown) date) 55 H 32 H 62 H unknown) (unknown) (no (unknown) (unknown) Restrictive lung (units (unknown) date) disease unknown) (unknown) (no (unknown) (unknown) Result Diagrams: (units (unknown) date) unknown) (unknown) (no (unknown) (unknown) Review of Systems (units (unknown) date) unknown) (unknown) (no (unknown) (unknown) SARS-CoV-2 (PCR) (units (unknown) date) Negative unknown) (unknown) (no (unknown) (unknown) SARS-CoV-2 (PCR) (units (unknown) date) unknown) (unknown) (no (unknown) (unknown) Safety + (units (unkno wn) date) Behavioral: unknown) (unknown) (no (unknown) (unknown) Signed By: (units (unk nown) date) unknown) (unknown) (no (unknown) (unknown) Smoking Status (units (unknown) date) Former smoker unknown) (unknown) (no (unknown) (unknown) Social History: (units (unknown) date) unknown) (unknown) (no (unknown) (unknown) Social history: (units (unknown) date) she denies alcohol, unknown) cigarettes, other substance use (unknown) (no (unknown) (unknown) Sodium 135 L (units (u nknown) date) unknown) (unknown) (no (unknown) (unknown) Sodium (units (unkno wn) date) unknown) (unknown) (no (unknown) (unknown) Substance Use Type (units (unknown) date) marijuana,amphetami unknown) helen,opiates,methamp hetamine (unknown) (no (unknown) (unknown) Surgical History (units (unknown) date) (Reviewed 03/23/22 unknown) @ 21:59 by Lincoln Valenzuela MD) (unknown) (no (unknown) (unknown) Temperature 97.9 F (units (unknown) date) unknown) (unknown) (no (unknown) (unknown) Temperature 98.4 F (units (unknown) date) unknown) (unknown) (no (unknown) (unknown) Temperature (units (un known) date) unknown) (unknown) (no (unknown) (unknown) Threatened By a (units (unknown) date) Person unknown) (unknown) (no (unknown) (unknown) Time Patient Seen: (units (unknown) date) 21:00 unknown) (unknown) (no (unknown) (unknown) Time Spent With (units (unknown) date) Patient unknown) (unknown) (no (unknown) (unknown) Tobacco + (units (unkn own) date) Substance use: unknown) (unknown) (no (unknown) (unknown) Tobacco type (units (u nknown) date) cigarettes unknown) (unknown) (no (unknown) (unknown) Total Bilirubin (units (unknown) date) 0.7 unknown) (unknown) (no (unknown) (unknown) Total Bilirubin (units (unknown) date) unknown) (unknown) (no (unknown) (unknown) Total Creatine (units (unknown) date) Kinase 88 unknown) (unknown) (no (unknown) (unknown) Total Creatine (units (unknown) date) Kinase unknown) (unknown) (no (unknown) (unknown) Total Protein 6.2 (units (unknown) date) L unknown) (unknown) (no (unknown) (unknown) Total Protein (units ( unknown) date) unknown) (unknown) (no (unknown) (unknown) Troponin I 0.050 H (units (unknown) date) unknown) (unknown) (no (unknown) (unknown) Troponin I (units (unk nown) date) unknown) (unknown) (no (unknown) (unknown) U Benzodiazepines (units (unknown) date) Scrn Positive H unknown) (unknown) (no (unknown) (unknown) U Benzodiazepines (units (unknown) date) Scrn unknown) (unknown) (no (unknown) (unknown) U Marijuana (THC) (units (unknown) date) Screen Positive H unknown) (unknown) (no (unknown) (unknown) U Marijuana (THC) (units (unknown) date) Screen unknown) (unknown) (no (unknown) (unknown) U Methamphetamines (units (unknown) date) Scrn Positive H unknown) (unknown) (no (unknown) (unknown) U Methamphetamines (units (unknown) date) Scrn unknown) (unknown) (no (unknown) (unknown) U Opiates 300ng/mL (units (unknown) date) cut Negative unknown) (unknown) (no (unknown) (unknown) U Opiates 300ng/mL (units (unknown) date) cut unknown) (unknown) (no (unknown) (unknown) U Tricyclic (units (un known) date) Antidepress unknown) Negative (unknown) (no (unknown) (unknown) U Tricyclic (units (un known) date) Antidepress unknown) (unknown) (no (unknown) (unknown) Ur Amphetamines (units (unknown) date) Screen Positive H unknown) (unknown) (no (unknown) (unknown) Ur Amphetamines (units (unknown) date) Screen unknown) (unknown) (no (unknown) (unknown) Ur Barbiturates (units (unknown) date) Screen Negative unknown) (unknown) (no (unknown) (unknown) Ur Barbiturates (units (unknown) date) Screen unknown) (unknown) (no (unknown) (unknown) Ur MDMA Scrn (units (u nknown) date) (Ecstasy) Negative unknown) (unknown) (no (unknown) (unknown) Ur MDMA Scrn (units (u nknown) date) (Ecstasy) unknown) (unknown) (no (unknown) (unknown) Ur Oxycodone (units (u nknown) date) Screen Negative unknown) (unknown) (no (unknown) (unknown) Ur Oxycodone (units (u nknown) date) Screen unknown) (unknown) (no (unknown) (unknown) Ur Phencyclidine (units (unknown) date) Scrn Negative unknown) (unknown) (no (unknown) (unknown) Ur Phencyclidine (units (unknown) date) Scrn unknown) (unknown) (no (unknown) (unknown) Urine Cocaine (units ( unknown) date) Screen Negative unknown) (unknown) (no (unknown) (unknown) Urine Cocaine (units ( unknown) date) Screen unknown) (unknown) (no (unknown) (unknown) Urine Methadone (units (unknown) date) Screen Negative unknown) (unknown) (no (unknown) (unknown) Urine Methadone (units (unknown) date) Screen unknown) (unknown) (no (unknown) (unknown) VTE (units (unkno wn) date) unknown) (unknown) (no (unknown) (unknown) Vital Signs (units (un known) date) unknown) (unknown) (no (unknown) (unknown) WBC 10.4 (units (unkno wn) date) unknown) (unknown) (no (unknown) (unknown) WBC (units (unkno wn) date) unknown) (unknown) (no (unknown) (unknown) [Embedded Image (units (unknown) date) Not Available] unknown) (unknown) (no (unknown) (unknown) [From Septra] (units ( unknown) date) unknown) (unknown) (no (unknown) (unknown) adhesive tape (units ( unknown) date) AdvReac Verified unknown) 03/23/22 16:34 (unknown) (no (unknown) (unknown) alcohol intake (units (unknown) date) current unknown) (unknown) (no (unknown) (unknown) alcohol intake (units (unknown) date) frequency 0-2 unknown) drinks per day (unknown) (no (unknown) (unknown) capsule,delayed (units (unknown) date) release (Nexium) unknown) (unknown) (no (unknown) (unknown) consulted and she (units (unknown) date) was admitted for unknown) further treatment. (unknown) (no (unknown) (unknown) desloratadine 5 mg (units (unknown) date) tablet 5 mg PO BID unknown) PRN nasal congestion 01/18/22 Rx (unknown) (no (unknown) (unknown) esomeprazole (units (u nknown) date) magnesium 40 mg 40 unknown) mg PO QDAY ##0 11/29/12 History (unknown) (no (unknown) (unknown) extended release (units (unknown) date) 12 hr (Mucinex) unknown) (unknown) (no (unknown) (unknown) fibromyalgia, and (units (unknown) date) ascending aortic unknown) aneurysm who presents after a fall. She (unknown) (no (unknown) (unknown) fluoxetine 40 mg (units (unknown) date) capsule (Prozac) 80 unknown) 1 ##0 11/29/12 History (unknown) (no (unknown) (unknown) for WBC 10.4, hgb (units (unknown) date) 11.5, plts 290. unknown) Creatinine 1.00. Trop 0.05. COVID negative. (unknown) (no (unknown) (unknown) guaifenesin 600 mg (units (unknown) date) tablet, 600 mg PO unknown) BID #20 tabs 01/18/22 Rx (unknown) (no (unknown) (unknown) household members (units (unknown) date) significant other unknown) (unknown) (no (unknown) (unknown) information. (units (u nknown) date) unknown) (unknown) (no (unknown) (unknown) ketorolac 10 mg (units (unknown) date) tablet 10 mg PO Q6H unknown) PRN pain #14 tabs 06/07/21 Rx (unknown) (no (unknown) (unknown) lasix. Hip xray (units (unknown) date) showed acute unknown) displaced femoral neck fracture. Ortho was (unknown) (no (unknown) (unknown) levothyroxine 125 (units (unknown) date) mcg tablet ##0 unknown) 11/29/12 History (unknown) (no (unknown) (unknown) lidocaine 5 % (units ( unknown) date) topical patch 1 unknown) patch topical DAILY #15 ea 06/07/21 Rx (unknown) (no (unknown) (unknown) medications (units (un known) date) unknown) (unknown) (no (unknown) (unknown) meloxicam 7.5 mg (units (unknown) date) tablet (Mobic) ##0 unknown) 11/29/12 History (unknown) (no (unknown) (unknown) methocarbamol 500 (units (unknown) date) mg tablet 500 mg PO unknown) TID PRN muscle aches #14 01/18/22 Rx (unknown) (no (unknown) (unknown) month ago for she (units (unknown) date) states a heart unknown) attack. She does not provide much more (unknown) (no (unknown) (unknown) nirmatrelvir 300 (units (unknown) date) mg (150 mg See Rx unknown) Instructions PO .COMPLEX 01/18/22 Rx (unknown) (no (unknown) (unknown) oxycodone 5 mg (units (unknown) date) tablet (Roxicodone) unknown) 5 mg PO Q4P ##0 11/29/12 History (unknown) (no (unknown) (unknown) oxygen. She was (units (unknown) date) ordered for fluids unknown) and her blood pressure improved. Labs notale (unknown) (no (unknown) (unknown) pack(EUA) (units (unkn own) date) (Paxlovid) unknown) (unknown) (no (unknown) (unknown) pregabalin 100 mg (units (unknown) date) capsule (Lyrica) 1 unknown) Q DAY ##0 11/29/12 History (unknown) (no (unknown) (unknown) rosuvastatin 20 mg (units (unknown) date) tablet (Crestor) unknown) ##0 11/29/12 History (unknown) (no (unknown) (unknown) states she became (units (unknown) date) tangled up in the unknown) dog leash while walking her dog. She felt on (unknown) (no (unknown) (unknown) strike or loss of (units (unknown) date) consciousness. She unknown) recently was at another facility about a (unknown) (no (unknown) (unknown) sulfamethoxazole (units (unknown) date) Allergy Verified unknown) 03/23/22 16:34 (unknown) (no (unknown) (unknown) tabs (units (unkno wn) date) unknown) (unknown) (no (unknown) (unknown) to her left hip (units (unknown) date) and had immediate unknown) pain and inability to walk. She had no head (unknown) (no (unknown) (unknown) today; this time (units (unknown) date) is exclusive of unknown) procedural time. (unknown) (no (unknown) (unknown) trimethoprim [From (units (unknown) date) Septra] Allergy unknown) Verified 03/23/22 16:34 (unknown) (no (unknown) (unknown) venlafaxine 50 mg (units (unknown) date) tablet 50 mg PO ##0 unknown) 11/29/12 History (unknown) (no (unknown) (unknown) was documented in (units (unknown) date) 60s systolic and unknown) pulse ox in the 80s. She was placed no (unknown) (no (unknown) (unknown) x2)-ritonavir 100 (units (unknown) date) mg tablet,dose #30 unknown) ea Result panel 154 (unknown) (no (unknown) (unknown) (no value) (units (unk nown) date) unknown) (unknown) (no (unknown) (unknown) [id number] (units (unkno wn) date) unknown) (unknown) (no (unknown) (unknown) 1. Fusiform (units (un known) date) aneurysmal unknown) dilatation of the ascending thoracic aorta which (unknown) (no (unknown) (unknown) 03/23/22 (units (unkno wn) date) unknown) (unknown) (no (unknown) (unknown) [facility] [address] [place] [address] (units (unknown) date) unknown) (unknown) (no (unknown) (unknown) 2. Aortic arch, (units (unknown) date) descending aorta, unknown) and visualized abdominal aorta are normal in (unknown) (no (unknown) (unknown) 3. Small left (units ( unknown) date) pleural effusion unknown) with associated compressive atelectasis. (unknown) (no (unknown) (unknown) 4. Pneumobilia (units (unknown) date) within the unknown) visualized left hepatic lobe. Recommend correlation (unknown) (no (unknown) (unknown) 6.4 cm. (units (unkno wn) date) unknown) (unknown) (no (unknown) (unknown) Abdomen: (units (unkno wn) date) Visualized upper unknown) abdomen demonstrates pneumobilia within the left (unknown) (no (unknown) (unknown) Accession (units (unkn own) date) Number: unknown) [id number] (unknown) (no (unknown) (unknown) After the (units (unkn own) date) administration of unknown) intravenous contrast, 2.5 mm thick sections (unknown) (no (unknown) (unknown) Age/Sex: 72 / F (units (unknown) date) Date of Service: unknown) (unknown) (no (unknown) (unknown) [place], [place] (units ( unknown) date) [id number] unknown) (unknown) (no (unknown) (unknown) Aorta: The (units (unk nown) date) aortic root unknown) appears normal in caliber, measuring up to 3.4 cm at (unknown) (no (unknown) (unknown) Approved by: (units (u nknown) date) Ray Harris, unknown) [place] on 03/24/2022 at 2:53 (unknown) (no (unknown) (unknown) Bones and chest (units (unknown) date) wall: No axillary unknown) adenopathy by size criteria. No suspicious (unknown) (no (unknown) (unknown) Bones: There is (units (unknown) date) bone cement unknown) within the (unknown) (no (unknown) (unknown) COMPARISON: (units (un known) date) [facility], unknown) CR, XR CHEST 1V, 03/23/2022, 16:10. (unknown) (no (unknown) (unknown) CT Scan Report (units (unknown) date) unknown) (unknown) (no (unknown) (unknown) : 1950 (units (unknown) date) Acct:[id number] unknown) (unknown) (no (unknown) (unknown) Dictated by: (units (u nknown) date) Ray Harris, unknown) [place] on 03/24/2022 at 2:44 (unknown) (no (unknown) (unknown) Esophagus is (units (u nknown) date) unknown) (unknown) (no (unknown) (unknown) FINDINGS: (units (unkn own) date) unknown) (unknown) (no (unknown) (unknown) IMPRESSION: (units (un known) date) unknown) (unknown) (no (unknown) (unknown) INDICATIONS: (units (u nknown) date) known ascending unknown) aortic aneurysm, eval please (unknown) (no (unknown) (unknown) Image quality: (units (unknown) date) Excellent. unknown) (unknown) (no (unknown) (unknown) [facility] (units (unknown) date) unknown) (unknown) (no (unknown) (unknown) Loc: AC 220-1 (units ( unknown) date) unknown) (unknown) (no (unknown) (unknown) Lungs and (units (unkn own) date) pleura: There is unknown) a small left pleural effusion. Mild associated (unknown) (no (unknown) (unknown) Mediastinum: (units (u nknown) date) Heart size is unknown) enlarged. No pericardial effusion. No mediastinal (unknown) (no (unknown) (unknown) Ordering (units (unkno wn) date) Provider: unknown) Lincoln Valenzuela MD (unknown) (no (unknown) (unknown) PROCEDURE: CT (units ( unknown) date) ANGIO CHEST unknown) (unknown) (no (unknown) (unknown) Patient: (units (unkno wn) date) Elidia Rock K unknown) MR#: [id number] (unknown) (no (unknown) (unknown) Procedure: CT (units ( unknown) date) angio chest unknown) (unknown) (no (unknown) (unknown) Signed (units (unkno wn) date) unknown) (unknown) (no (unknown) (unknown) TECHNIQUE: (units (unk nown) date) unknown) (unknown) (no (unknown) (unknown) There is (units (unkno wn) date) fusiform unknown) aneurysmal dilatation of the ascending thoracic aorta which (unknown) (no (unknown) (unknown) abdominal aorta (units (unknown) date) unknown) (unknown) (no (unknown) (unknown) acquired from (units ( unknown) date) the unknown) (unknown) (no (unknown) (unknown) adenopathy by (units ( unknown) date) size criteria. unknown) Central pulmonary arteries are normal in size and (unknown) (no (unknown) (unknown) appears widely (units (unknown) date) patent and normal unknown) in caliber. No mural irregularity or contrast (unknown) (no (unknown) (unknown) atelectasis (units (un known) date) demonstrated unknown) bilaterally. Central and peripheral airways are (unknown) (no (unknown) (unknown) bony (units (unkno wn) date) unknown) (unknown) (no (unknown) (unknown) caliber. (units (unkno wn) date) unknown) (unknown) (no (unknown) (unknown) clinical history (units (unknown) date) for possible unknown) prior ampullary intervention. (unknown) (no (unknown) (unknown) compressive (units (un known) date) unknown) (unknown) (no (unknown) (unknown) demonstrate no (units (unknown) date) filling defects unknown) to suggest central pulmonary embolism. (unknown) (no (unknown) (unknown) descending aorta (units (unknown) date) is normal in unknown) caliber, measuring up to 2.8 cm. At the level of (unknown) (no (unknown) (unknown) diaphragmatic (units ( unknown) date) hiatus, the aorta unknown) measures up to 2.4 cm. The visualized (unknown) (no (unknown) (unknown) extravasation to (units (unknown) date) suggest aortic unknown) injury. (unknown) (no (unknown) (unknown) hepatic lobe. (units ( unknown) date) unknown) (unknown) (no (unknown) (unknown) junction. (units (unkn own) date) unknown) (unknown) (no (unknown) (unknown) lesions. No (units (un known) date) vertebral body unknown) compression fractures. (unknown) (no (unknown) (unknown) lung apices to (units (unknown) date) the posterior unknown) lung bases. Maximum intensity projection (MIP) (unknown) (no (unknown) (unknown) measures up to (units (unknown) date) unknown) (unknown) (no (unknown) (unknown) measures up (units (un known) date) unknown) (unknown) (no (unknown) (unknown) normal in (units (unkn own) date) caliber. No unknown) hiatal hernia. (unknown) (no (unknown) (unknown) normal in (units (unkn own) date) caliber. unknown) (unknown) (no (unknown) (unknown) oblique (units (unkno wn) date) unknown) (unknown) (no (unknown) (unknown) or hilar (units (unkno wn) date) unknown) (unknown) (no (unknown) (unknown) patent and (units (unk nown) date) unknown) (unknown) (no (unknown) (unknown) proximal (units (unkno wn) date) unknown) (unknown) (no (unknown) (unknown) radiation dose (units (unknown) date) unknown) (unknown) (no (unknown) (unknown) reduction, the (units (unknown) date) following was unknown) used: automated exposure control. (unknown) (no (unknown) (unknown) sagittal (units (unkno wn) date) reformats were unknown) then acquired parallel to the aortic arch. For (unknown) (no (unknown) (unknown) the level of (units (u nknown) date) unknown) (unknown) (no (unknown) (unknown) the sinuses of (units (unknown) date) Valsalva. The unknown) aorta measures up to 3.5 cm at the sinotubular (unknown) (no (unknown) (unknown) the (units (unkno wn) date) unknown) (unknown) (no (unknown) (unknown) to 6.4 cm (units (unkn own) date) dimension. The unknown) aortic arch measures up to 2.5 cm in diameter. The (unknown) (no (unknown) (unknown) with (units (unkno wn) date) unknown) Result panel 155 (unknown) (no (unknown) (unknown) (no value) (units (unk nown) date) unknown) (unknown) (no (unknown) (unknown) (Clarinex) #20 (units (unknown) date) tabs unknown) (unknown) (no (unknown) (unknown) (Lidoderm) (units (unk nown) date) unknown) (unknown) (no (unknown) (unknown) (Synthroid) (units (un known) date) unknown) (unknown) (no (unknown) (unknown) (past 8 hours): (units (unknown) date) unknown) (unknown) (no (unknown) (unknown) -ECHO shows EF (units (unknown) date) 60-65 unknown) (unknown) (no (unknown) (unknown) -IV pain (units (unkno wn) date) medications ordered unknown) (unknown) (no (unknown) (unknown) -PT/OT after (units (u nknown) date) surgery unknown) (unknown) (no (unknown) (unknown) -did get lasix on (units (unknown) date) admit, with good unknown) urine output (unknown) (no (unknown) (unknown) -did require (units (u nknown) date) intermittent oxygen unknown) support (unknown) (no (unknown) (unknown) -has known history (units (unknown) date) of ILD, and recent unknown) cardiac medical issue per patient (unknown) (no (unknown) (unknown) -keep in bed until (units (unknown) date) surgery unknown) (unknown) (no (unknown) (unknown) -ortho consulted (units (unknown) date) and plan for unknown) surgery 03/24 (unknown) (no (unknown) (unknown) -suspect this may (units (unknown) date) be secondary to unknown) ILD, vs fluid overload (unknown) (no (unknown) (unknown) -trend troponins (units (unknown) date) unknown) (unknown) (no (unknown) (unknown) [id number] (units (unkno wn) date) unknown) (unknown) (no (unknown) (unknown) 1. Left hip (units (un known) date) fracture unknown) (unknown) (no (unknown) (unknown) 03/23/22 03/23/22 (units (unknown) date) 03/23/22 unknown) (unknown) (no (unknown) (unknown) 03/23/22 16:12 (units (unknown) date) unknown) (unknown) (no (unknown) (unknown) 03/23/22 (units (unkno wn) date) unknown) (unknown) (no (unknown) (unknown) 14 systems (units (unk nown) date) reviewed and unknown) negative aside from what is noted in HPI (unknown) (no (unknown) (unknown) 15:47 03/23/22 (units (unknown) date) unknown) (unknown) (no (unknown) (unknown) 15:59 03/23/22 (units (unknown) date) unknown) (unknown) (no (unknown) (unknown) 16:00 03/23/22 (units (unknown) date) unknown) (unknown) (no (unknown) (unknown) 16:00 (units (unkno wn) date) unknown) (unknown) (no (unknown) (unknown) 16:04 03/23/22 (units (unknown) date) unknown) (unknown) (no (unknown) (unknown) 16:04 (units (unkno wn) date) unknown) (unknown) (no (unknown) (unknown) 16:05 03/23/22 (units (unknown) date) unknown) (unknown) (no (unknown) (unknown) 16:10 (units (unkno wn) date) unknown) (unknown) (no (unknown) (unknown) 16:12 16:12 16:12 (units (unknown) date) unknown) (unknown) (no (unknown) (unknown) 16:12 16:54 17:07 (units (unknown) date) unknown) (unknown) (no (unknown) (unknown) 16:15 03/23/22 (units (unknown) date) unknown) (unknown) (no (unknown) (unknown) 16:17 03/23/22 (units (unknown) date) unknown) (unknown) (no (unknown) (unknown) 16:17 (units (unkno wn) date) unknown) (unknown) (no (unknown) (unknown) 16:20 03/23/22 (units (unknown) date) unknown) (unknown) (no (unknown) (unknown) 16:25 03/23/22 (units (unknown) date) unknown) (unknown) (no (unknown) (unknown) 16:25 (units (unkno wn) date) unknown) (unknown) (no (unknown) (unknown) 16:29 03/23/22 (units (unknown) date) unknown) (unknown) (no (unknown) (unknown) 16:30 03/23/22 (units (unknown) date) unknown) (unknown) (no (unknown) (unknown) 16:30 (units (unkno wn) date) unknown) (unknown) (no (unknown) (unknown) 16:43 03/23/22 (units (unknown) date) unknown) (unknown) (no (unknown) (unknown) 16:45 (units (unkno wn) date) unknown) (unknown) (no (unknown) (unknown) 16:50 03/23/22 (units (unknown) date) unknown) (unknown) (no (unknown) (unknown) 16:55 03/23/22 (units (unknown) date) unknown) (unknown) (no (unknown) (unknown) 17:00 (units (unkno wn) date) unknown) (unknown) (no (unknown) (unknown) 17:05 03/23/22 (units (unknown) date) unknown) (unknown) (no (unknown) (unknown) 17:10 03/23/22 (units (unknown) date) unknown) (unknown) (no (unknown) (unknown) 17:15 (units (unkno wn) date) unknown) (unknown) (no (unknown) (unknown) 17:20 03/23/22 (units (unknown) date) unknown) (unknown) (no (unknown) (unknown) 17:25 03/23/22 (units (unknown) date) unknown) (unknown) (no (unknown) (unknown) 17:30 (units (unkno wn) date) unknown) (unknown) (no (unknown) (unknown) 17:35 03/23/22 (units (unknown) date) unknown) (unknown) (no (unknown) (unknown) 17:40 03/23/22 (units (unknown) date) unknown) (unknown) (no (unknown) (unknown) 17:45 (units (unkno wn) date) unknown) (unknown) (no (unknown) (unknown) 17:50 03/23/22 (units (unknown) date) unknown) (unknown) (no (unknown) (unknown) 17:55 03/23/22 (units (unknown) date) unknown) (unknown) (no (unknown) (unknown) 18:00 (units (unkno wn) date) unknown) (unknown) (no (unknown) (unknown) 18:05 03/23/22 (units (unknown) date) unknown) (unknown) (no (unknown) (unknown) 18:10 03/23/22 (units (unknown) date) unknown) (unknown) (no (unknown) (unknown) 18:15 (units (unkno wn) date) unknown) (unknown) (no (unknown) (unknown) 18:20 03/23/22 (units (unknown) date) unknown) (unknown) (no (unknown) (unknown) 18:25 03/23/22 (units (unknown) date) unknown) (unknown) (no (unknown) (unknown) 18:30 (units (unkno wn) date) unknown) (unknown) (no (unknown) (unknown) 18:35 03/23/22 (units (unknown) date) unknown) (unknown) (no (unknown) (unknown) 19:35 (units (unkno wn) date) unknown) (unknown) (no (unknown) (unknown) 2. Acute (units (unkno wn) date) respiratory unknown) distress (unknown) (no (unknown) (unknown) 3. Ascending (units (u nknown) date) aortic aneurysm unknown) (unknown) (no (unknown) (unknown) ABD: soft, (units (unk nown) date) nontender, unknown) nondistended, no organomegaly (unknown) (no (unknown) (unknown) ALT 30 (units (unkno wn) date) unknown) (unknown) (no (unknown) (unknown) ALT (units (unkno wn) date) unknown) (unknown) (no (unknown) (unknown) APTT 36 (units (unkno wn) date) unknown) (unknown) (no (unknown) (unknown) APTT (units (unkno wn) date) unknown) (unknown) (no (unknown) (unknown) AST 32 (units (unkno wn) date) unknown) (unknown) (no (unknown) (unknown) AST (units (unkno wn) date) unknown) (unknown) (no (unknown) (unknown) Age/Sex: 72 / F (units (unknown) date) unknown) (unknown) (no (unknown) (unknown) Albumin 3.7 (units (un known) date) unknown) (unknown) (no (unknown) (unknown) Albumin (units (unkno wn) date) unknown) (unknown) (no (unknown) (unknown) Albumin/Globulin (units (unknown) date) Ratio 1.5 unknown) (unknown) (no (unknown) (unknown) Albumin/Globulin (units (unknown) date) Ratio unknown) (unknown) (no (unknown) (unknown) Alkaline (units (unkno wn) date) Phosphatase 88 unknown) (unknown) (no (unknown) (unknown) Alkaline (units (unkno wn) date) Phosphatase unknown) (unknown) (no (unknown) (unknown) Allergies (units (unkn own) date) unknown) (unknown) (no (unknown) (unknown) Allergy/AdvReac (units (unknown) date) Type Severity unknown) Reaction Status Date / Time (unknown) (no (unknown) (unknown) Assessment + Plan (units (unknown) date) narrative: unknown) (unknown) (no (unknown) (unknown) Assessment + Plan (units (unknown) date) unknown) (unknown) (no (unknown) (unknown) BUN 25 H (units (unkno wn) date) unknown) (unknown) (no (unknown) (unknown) BUN (units (unkno wn) date) unknown) (unknown) (no (unknown) (unknown) BUN/Creatinine (units (unknown) date) Ratio 25.0 H unknown) (unknown) (no (unknown) (unknown) BUN/Creatinine (units (unknown) date) Ratio unknown) (unknown) (no (unknown) (unknown) Baso # (Auto) 100 (units (unknown) date) unknown) (unknown) (no (unknown) (unknown) Baso # (Auto) (units ( unknown) date) unknown) (unknown) (no (unknown) (unknown) Baso % (Auto) 0.8 (units (unknown) date) unknown) (unknown) (no (unknown) (unknown) Baso % (Auto) (units ( unknown) date) unknown) (unknown) (no (unknown) (unknown) Been Physically (units (unknown) date) Hurt or No unknown) (unknown) (no (unknown) (unknown) Blood Pressure (units (unknown) date) 108/55 L unknown) (unknown) (no (unknown) (unknown) Blood Pressure (units (unknown) date) 113/44 L unknown) (unknown) (no (unknown) (unknown) Blood Pressure (units (unknown) date) 67/41 L 91/47 L unknown) (unknown) (no (unknown) (unknown) Blood Pressure (units (unknown) date) 90/44 L 97/49 L unknown) (unknown) (no (unknown) (unknown) Blood Pressure (units (unknown) date) 91/45 L unknown) (unknown) (no (unknown) (unknown) Blood Pressure (units (unknown) date) 94/48 L unknown) (unknown) (no (unknown) (unknown) Blood Pressure (units (unknown) date) 98/48 L unknown) (unknown) (no (unknown) (unknown) Blood Pressure (units (unknown) date) unknown) (unknown) (no (unknown) (unknown) CK-MB (CK-2) Rel (units (unknown) date) Index TNP unknown) (unknown) (no (unknown) (unknown) CK-MB (CK-2) Rel (units (unknown) date) Index unknown) (unknown) (no (unknown) (unknown) CK-MB (CK-2) TNP (units (unknown) date) unknown) (unknown) (no (unknown) (unknown) CK-MB (CK-2) (units (u nknown) date) unknown) (unknown) (no (unknown) (unknown) CODE: Full (units (unk nown) date) unknown) (unknown) (no (unknown) (unknown) CV: regular rate (units (unknown) date) and rhythm, no unknown) murmurs (unknown) (no (unknown) (unknown) Calcium 8.8 (units (un known) date) unknown) (unknown) (no (unknown) (unknown) Calcium (units (unkno wn) date) unknown) (unknown) (no (unknown) (unknown) Carbon Dioxide 26 (units (unknown) date) unknown) (unknown) (no (unknown) (unknown) Carbon Dioxide (units (unknown) date) unknown) (unknown) (no (unknown) (unknown) Chest xray read as (units (unknown) date) cardiomegaly and unknown) mild congestion for which she was given (unknown) (no (unknown) (unknown) Chief complaint: (units (unknown) date) hip pain unknown) (unknown) (no (unknown) (unknown) Chloride 101 (units (u nknown) date) unknown) (unknown) (no (unknown) (unknown) Chloride (units (unkno wn) date) unknown) (unknown) (no (unknown) (unknown) Creatinine 1.00 (units (unknown) date) unknown) (unknown) (no (unknown) (unknown) Creatinine (units (unk nown) date) unknown) (unknown) (no (unknown) (unknown) Critical Care (units ( unknown) date) time: unknown) (unknown) (no (unknown) (unknown) : 1950 (units (unknown) date) Acct:[id number] unknown) (unknown) (no (unknown) (unknown) Date Patient Seen: (units (unknown) date) 03/23/22 unknown) (unknown) (no (unknown) (unknown) Date of Service: (units (unknown) date) 03/23/22 unknown) (unknown) (no (unknown) (unknown) Deep Vein (units (unkn own) date) Thrombosis/Pulmonar unknown) y Embolism Present on Admission: No (unknown) (no (unknown) (unknown) EXT: warm and well (units (unknown) date) perfused, left leg unknown) tenderness (unknown) (no (unknown) (unknown) Environment (units (un known) date) unknown) (unknown) (no (unknown) (unknown) Eos # (Auto) 200 (units (unknown) date) unknown) (unknown) (no (unknown) (unknown) Eos # (Auto) (units (u nknown) date) unknown) (unknown) (no (unknown) (unknown) Eos % (Auto) 1.9 L (units (unknown) date) unknown) (unknown) (no (unknown) (unknown) Eos % (Auto) (units (u nknown) date) unknown) (unknown) (no (unknown) (unknown) Estimated GFR > 60 (units (unknown) date) unknown) (unknown) (no (unknown) (unknown) Estimated GFR (units ( unknown) date) unknown) (unknown) (no (unknown) (unknown) Ethyl Alcohol < 10 (units (unknown) date) unknown) (unknown) (no (unknown) (unknown) Ethyl Alcohol (units ( unknown) date) unknown) (unknown) (no (unknown) (unknown) Exam Narrative: (units (unknown) date) unknown) (unknown) (no (unknown) (unknown) Exam (units (unkno wn) date) unknown) (unknown) (no (unknown) (unknown) Family + Social (units (unknown) date) History unknown) (unknown) (no (unknown) (unknown) Family history: (units (unknown) date) mother with TIA unknown) (unknown) (no (unknown) (unknown) Feels Safe in (units ( unknown) date) Current Yes unknown) (unknown) (no (unknown) (unknown) Fibromyalgia (units (u nknown) date) unknown) (unknown) (no (unknown) (unknown) GEN: distress from (units (unknown) date) pain unknown) (unknown) (no (unknown) (unknown) Globulin 2.5 (units (u nknown) date) unknown) (unknown) (no (unknown) (unknown) Globulin (units (unkno wn) date) unknown) (unknown) (no (unknown) (unknown) Glucosamine (units (un known) date) Sulfate unknown) (GLUCOSAMINE) ##0 11/29/12 History (unknown) (no (unknown) (unknown) Glucose 115 H (units ( unknown) date) unknown) (unknown) (no (unknown) (unknown) Glucose (units (unkno wn) date) unknown) (unknown) (no (unknown) (unknown) HEENT: moist (units (u nknown) date) mucous membranes, unknown) PERRL (unknown) (no (unknown) (unknown) Hct 34.5 L (units (unk nown) date) unknown) (unknown) (no (unknown) (unknown) Hct (units (unkno wn) date) unknown) (unknown) (no (unknown) (unknown) Hgb 11.5 L (units (unk nown) date) unknown) (unknown) (no (unknown) (unknown) Hgb (units (unkno wn) date) unknown) (unknown) (no (unknown) (unknown) History + Physical (units (unknown) date) Report unknown) (unknown) (no (unknown) (unknown) History of Present (units (unknown) date) Illness unknown) (unknown) (no (unknown) (unknown) Home Medications (units (unknown) date) and Allergies unknown) (unknown) (no (unknown) (unknown) Home Medications (units (unknown) date) unknown) (unknown) (no (unknown) (unknown) Hypertension (units (u nknown) date) unknown) (unknown) (no (unknown) (unknown) Hypothyroidism (units (unknown) date) unknown) (unknown) (no (unknown) (unknown) I have utilized (units (unknown) date) all available unknown) resources to reconcile the patient's home (unknown) (no (unknown) (unknown) I spent a total of (units (unknown) date) [] minutes of unknown) critical care time on this patient's care (unknown) (no (unknown) (unknown) INR 1.2 (units (unkno wn) date) unknown) (unknown) (no (unknown) (unknown) INR (units (unkno wn) date) unknown) (unknown) (no (unknown) (unknown) In the ED workup (units (unknown) date) was done, vitals unknown) notable for afebrile, initial blood pressure (unknown) (no (unknown) (unknown) [facility] (units (unknown) date) [address] unknown) [place] [address] (unknown) (no (unknown) (unknown) Laboratory Results (units (unknown) date) - last 24 hr unknown) (unknown) (no (unknown) (unknown) Labs (units (unkno wn) date) unknown) (unknown) (no (unknown) (unknown) Labs: (units (unkno wn) date) unknown) (unknown) (no (unknown) (unknown) Lymph # (Auto) (units (unknown) date) 2000 unknown) (unknown) (no (unknown) (unknown) Lymph # (Auto) (units (unknown) date) unknown) (unknown) (no (unknown) (unknown) Lymph % (Auto) (units (unknown) date) 19.6 L unknown) (unknown) (no (unknown) (unknown) Lymph % (Auto) (units (unknown) date) unknown) (unknown) (no (unknown) (unknown) MCH 29.0 (units (unkno wn) date) unknown) (unknown) (no (unknown) (unknown) MCH (units (unkno wn) date) unknown) (unknown) (no (unknown) (unknown) MCHC 33.2 (units (unkn own) date) unknown) (unknown) (no (unknown) (unknown) MCHC (units (unkno wn) date) unknown) (unknown) (no (unknown) (unknown) MCV 87.4 (units (unkno wn) date) unknown) (unknown) (no (unknown) (unknown) MCV (units (unkno wn) date) unknown) (unknown) (no (unknown) (unknown) Magnesium 1.9 (units ( unknown) date) unknown) (unknown) (no (unknown) (unknown) Magnesium (units (unkn own) date) unknown) (unknown) (no (unknown) (unknown) Medical History (units (unknown) date) (Reviewed 03/23/22 unknown) @ 21:59 by Lincoln Valenzuela MD) (unknown) (no (unknown) (unknown) Medication (units (unk nown) date) Instructions unknown) Recorded Confirmed Type (unknown) (no (unknown) (unknown) Meds (units (unkno wn) date) unknown) (unknown) (no (unknown) (unknown) [place] # (Auto) 800 (units (unknown) date) unknown) (unknown) (no (unknown) (unknown) [place] # (Auto) (units ( unknown) date) unknown) (unknown) (no (unknown) (unknown) [place] % (Auto) 7.6 (units (unknown) date) unknown) (unknown) (no (unknown) (unknown) [place] % (Auto) (units ( unknown) date) unknown) (unknown) (no (unknown) (unknown) Ms. Rcok is a (units (unknown) date) 72W with idiopathic unknown) pulmonary fibrosis, HTN, hypothyroid, (unknown) (no (unknown) (unknown) NECK: trachea (units ( unknown) date) midline, no JVD unknown) (unknown) (no (unknown) (unknown) NEURO: awake, (units ( unknown) date) alert, oriented, no unknown) focal deficits (unknown) (no (unknown) (unknown) Narrative (units (unkn own) date) unknown) (unknown) (no (unknown) (unknown) Narrative: (units (unk nown) date) unknown) (unknown) (no (unknown) (unknown) Neut # (Auto) 7300 (units (unknown) date) H unknown) (unknown) (no (unknown) (unknown) Neut # (Auto) (units ( unknown) date) unknown) (unknown) (no (unknown) (unknown) Neut % (Auto) 70.1 (units (unknown) date) unknown) (unknown) (no (unknown) (unknown) Neut % (Auto) (units ( unknown) date) unknown) (unknown) (no (unknown) (unknown) No pertinent past (units (unknown) date) surgical history unknown) (unknown) (no (unknown) (unknown) Objective (units (unkn own) date) unknown) (unknown) (no (unknown) (unknown) Oxygen Delivery (units (unknown) date) Method Nasal unknown) Cannula Nasal Cannula Nasal Cannula (unknown) (no (unknown) (unknown) Oxygen Delivery (units (unknown) date) Method Nasal unknown) Cannula (unknown) (no (unknown) (unknown) Oxygen Delivery (units (unknown) date) Method Room Air unknown) (unknown) (no (unknown) (unknown) Oxygen Delivery (units (unknown) date) Method unknown) (unknown) (no (unknown) (unknown) Oxygen Flow Rate 0 (units (unknown) date) unknown) (unknown) (no (unknown) (unknown) Oxygen Flow Rate (units (unknown) date) 1.5 0 unknown) (unknown) (no (unknown) (unknown) Oxygen Flow Rate 2 (units (unknown) date) 2 2 unknown) (unknown) (no (unknown) (unknown) Oxygen Flow Rate 2 (units (unknown) date) unknown) (unknown) (no (unknown) (unknown) Oxygen Flow Rate (units (unknown) date) 3.5 unknown) (unknown) (no (unknown) (unknown) Oxygen Flow Rate (units (unknown) date) unknown) (unknown) (no (unknown) (unknown) PT 14.2 H (units (unkn own) date) unknown) (unknown) (no (unknown) (unknown) PT (units (unkno wn) date) unknown) (unknown) (no (unknown) (unknown) PULM: fine (units (unk nown) date) crackles unknown) bilaterally (unknown) (no (unknown) (unknown) Patient History (units (unknown) date) unknown) (unknown) (no (unknown) (unknown) Patient: (units (unkno wn) date) Elidia Rock unknown) MR#: [id number] (unknown) (no (unknown) (unknown) Plt Count 290 (units ( unknown) date) unknown) (unknown) (no (unknown) (unknown) Plt Count (units (unkn own) date) unknown) (unknown) (no (unknown) (unknown) Potassium 3.7 (units ( unknown) date) unknown) (unknown) (no (unknown) (unknown) Potassium (units (unkn own) date) unknown) (unknown) (no (unknown) (unknown) Prior Living (units (u nknown) date) Arrangements House unknown) (unknown) (no (unknown) (unknown) Provider: (units (unkn own) date) Lincoln Valenzuela MD unknown) (unknown) (no (unknown) (unknown) Proxy: [place] (units (unknown) date) [place] unknown) partner (unknown) (no (unknown) (unknown) Pulse Oximetry 84 (units (unknown) date) L 82 L unknown) (unknown) (no (unknown) (unknown) Pulse Oximetry 84 (units (unknown) date) L 94 unknown) (unknown) (no (unknown) (unknown) Pulse Oximetry 86 (units (unknown) date) L 82 L unknown) (unknown) (no (unknown) (unknown) Pulse Oximetry 86 (units (unknown) date) L 88 L 85 L unknown) (unknown) (no (unknown) (unknown) Pulse Oximetry 89 (units (unknown) date) L 95 96 unknown) (unknown) (no (unknown) (unknown) Pulse Oximetry 91 (units (unknown) date) 92 93 unknown) (unknown) (no (unknown) (unknown) Pulse Oximetry 92 (units (unknown) date) 88 L unknown) (unknown) (no (unknown) (unknown) Pulse Oximetry 93 (units (unknown) date) 91 92 unknown) (unknown) (no (unknown) (unknown) Pulse Oximetry 93 (units (unknown) date) 93 unknown) (unknown) (no (unknown) (unknown) Pulse Oximetry 94 (units (unknown) date) 96 94 unknown) (unknown) (no (unknown) (unknown) Pulse Oximetry 94 (units (unknown) date) unknown) (unknown) (no (unknown) (unknown) Pulse Oximetry 95 (units (unknown) date) 93 unknown) (unknown) (no (unknown) (unknown) Pulse Oximetry 95 (units (unknown) date) 96 94 unknown) (unknown) (no (unknown) (unknown) Pulse Oximetry 97 (units (unknown) date) 95 unknown) (unknown) (no (unknown) (unknown) Pulse Oximetry 99 (units (unknown) date) 90 L 94 unknown) (unknown) (no (unknown) (unknown) Pulse Rate 59 L 59 (units (unknown) date) L 60 unknown) (unknown) (no (unknown) (unknown) Pulse Rate 59 L 59 (units (unknown) date) L unknown) (unknown) (no (unknown) (unknown) Pulse Rate 59 L (units (unknown) date) unknown) (unknown) (no (unknown) (unknown) Pulse Rate 60 59 L (units (unknown) date) unknown) (unknown) (no (unknown) (unknown) Pulse Rate 61 60 (units (unknown) date) 61 unknown) (unknown) (no (unknown) (unknown) Pulse Rate 62 62 (units (unknown) date) 62 unknown) (unknown) (no (unknown) (unknown) Pulse Rate 62 66 (units (unknown) date) 68 unknown) (unknown) (no (unknown) (unknown) Pulse Rate 63 64 (units (unknown) date) 66 unknown) (unknown) (no (unknown) (unknown) Pulse Rate 64 65 (units (unknown) date) unknown) (unknown) (no (unknown) (unknown) Pulse Rate 64 66 (units (unknown) date) unknown) (unknown) (no (unknown) (unknown) Pulse Rate 65 59 L (units (unknown) date) unknown) (unknown) (no (unknown) (unknown) Pulse Rate 66 65 (units (unknown) date) 64 unknown) (unknown) (no (unknown) (unknown) Pulse Rate 67 63 (units (unknown) date) unknown) (unknown) (no (unknown) (unknown) Pulse Rate 67 67 (units (unknown) date) 67 unknown) (unknown) (no (unknown) (unknown) Pulse Rate 67 69 (units (unknown) date) 68 unknown) (unknown) (no (unknown) (unknown) Quality (units (unkno wn) date) unknown) (unknown) (no (unknown) (unknown) RBC 3.95 L (units (unk nown) date) unknown) (unknown) (no (unknown) (unknown) RBC (units (unkno wn) date) unknown) (unknown) (no (unknown) (unknown) RDW 14.3 (units (unkno wn) date) unknown) (unknown) (no (unknown) (unknown) RDW (units (unkno wn) date) unknown) (unknown) (no (unknown) (unknown) Respiratory Rate (units (unknown) date) 18 22 unknown) (unknown) (no (unknown) (unknown) Respiratory Rate (units (unknown) date) 21 12 unknown) (unknown) (no (unknown) (unknown) Respiratory Rate (units (unknown) date) 21 unknown) (unknown) (no (unknown) (unknown) Respiratory Rate (units (unknown) date) 26 H 35 H unknown) (unknown) (no (unknown) (unknown) Respiratory Rate (units (unknown) date) 30 H 34 H 40 H unknown) (unknown) (no (unknown) (unknown) Respiratory Rate (units (unknown) date) 31 H 17 unknown) (unknown) (no (unknown) (unknown) Respiratory Rate (units (unknown) date) 32 H 29 H 27 H unknown) (unknown) (no (unknown) (unknown) Respiratory Rate (units (unknown) date) 33 H 27 H unknown) (unknown) (no (unknown) (unknown) Respiratory Rate (units (unknown) date) 33 H 36 H 41 H unknown) (unknown) (no (unknown) (unknown) Respiratory Rate (units (unknown) date) 36 H 39 H unknown) (unknown) (no (unknown) (unknown) Respiratory Rate (units (unknown) date) 39 H 31 H 33 H unknown) (unknown) (no (unknown) (unknown) Respiratory Rate (units (unknown) date) 39 H 31 H unknown) (unknown) (no (unknown) (unknown) Respiratory Rate (units (unknown) date) 40 H 31 H 40 H unknown) (unknown) (no (unknown) (unknown) Respiratory Rate (units (unknown) date) 43 H 32 H 38 H unknown) (unknown) (no (unknown) (unknown) Respiratory Rate (units (unknown) date) 55 H 32 H 62 H unknown) (unknown) (no (unknown) (unknown) Restrictive lung (units (unknown) date) disease unknown) (unknown) (no (unknown) (unknown) Result Diagrams: (units (unknown) date) unknown) (unknown) (no (unknown) (unknown) Review of Systems (units (unknown) date) unknown) (unknown) (no (unknown) (unknown) SARS-CoV-2 (PCR) (units (unknown) date) Negative unknown) (unknown) (no (unknown) (unknown) SARS-CoV-2 (PCR) (units (unknown) date) unknown) (unknown) (no (unknown) (unknown) Safety + (units (unkno wn) date) Behavioral: unknown) (unknown) (no (unknown) (unknown) Signed By: (units (unk nown) date) unknown) (unknown) (no (unknown) (unknown) Smoking Status (units (unknown) date) Former smoker unknown) (unknown) (no (unknown) (unknown) Social History: (units (unknown) date) unknown) (unknown) (no (unknown) (unknown) Social history: (units (unknown) date) she denies alcohol, unknown) cigarettes, other substance use (unknown) (no (unknown) (unknown) Sodium 135 L (units (u nknown) date) unknown) (unknown) (no (unknown) (unknown) Sodium (units (unkno wn) date) unknown) (unknown) (no (unknown) (unknown) Substance Use Type (units (unknown) date) marijuana,amphetami unknown) helen,opiates,methamp hetamine (unknown) (no (unknown) (unknown) Surgical History (units (unknown) date) (Reviewed 03/23/22 unknown) @ 21:59 by Lincoln Valenzuela MD) (unknown) (no (unknown) (unknown) Temperature 97.9 F (units (unknown) date) unknown) (unknown) (no (unknown) (unknown) Temperature 98.4 F (units (unknown) date) unknown) (unknown) (no (unknown) (unknown) Temperature (units (un known) date) unknown) (unknown) (no (unknown) (unknown) Threatened By a (units (unknown) date) Person unknown) (unknown) (no (unknown) (unknown) Time Patient Seen: (units (unknown) date) 21:00 unknown) (unknown) (no (unknown) (unknown) Time Spent With (units (unknown) date) Patient unknown) (unknown) (no (unknown) (unknown) Tobacco + (units (unkn own) date) Substance use: unknown) (unknown) (no (unknown) (unknown) Tobacco type (units (u nknown) date) cigarettes unknown) (unknown) (no (unknown) (unknown) Total Bilirubin (units (unknown) date) 0.7 unknown) (unknown) (no (unknown) (unknown) Total Bilirubin (units (unknown) date) unknown) (unknown) (no (unknown) (unknown) Total Creatine (units (unknown) date) Kinase 88 unknown) (unknown) (no (unknown) (unknown) Total Creatine (units (unknown) date) Kinase unknown) (unknown) (no (unknown) (unknown) Total Protein 6.2 (units (unknown) date) L unknown) (unknown) (no (unknown) (unknown) Total Protein (units ( unknown) date) unknown) (unknown) (no (unknown) (unknown) Troponin I 0.050 H (units (unknown) date) unknown) (unknown) (no (unknown) (unknown) Troponin I (units (unk nown) date) unknown) (unknown) (no (unknown) (unknown) U Benzodiazepines (units (unknown) date) Scrn Positive H unknown) (unknown) (no (unknown) (unknown) U Benzodiazepines (units (unknown) date) Scrn unknown) (unknown) (no (unknown) (unknown) U Marijuana (THC) (units (unknown) date) Screen Positive H unknown) (unknown) (no (unknown) (unknown) U Marijuana (THC) (units (unknown) date) Screen unknown) (unknown) (no (unknown) (unknown) U Methamphetamines (units (unknown) date) Scrn Positive H unknown) (unknown) (no (unknown) (unknown) U Methamphetamines (units (unknown) date) Scrn unknown) (unknown) (no (unknown) (unknown) U Opiates 300ng/mL (units (unknown) date) cut Negative unknown) (unknown) (no (unknown) (unknown) U Opiates 300ng/mL (units (unknown) date) cut unknown) (unknown) (no (unknown) (unknown) U Tricyclic (units (un known) date) Antidepress unknown) Negative (unknown) (no (unknown) (unknown) U Tricyclic (units (un known) date) Antidepress unknown) (unknown) (no (unknown) (unknown) Ur Amphetamines (units (unknown) date) Screen Positive H unknown) (unknown) (no (unknown) (unknown) Ur Amphetamines (units (unknown) date) Screen unknown) (unknown) (no (unknown) (unknown) Ur Barbiturates (units (unknown) date) Screen Negative unknown) (unknown) (no (unknown) (unknown) Ur Barbiturates (units (unknown) date) Screen unknown) (unknown) (no (unknown) (unknown) Ur MDMA Scrn (units (u nknown) date) (Ecstasy) Negative unknown) (unknown) (no (unknown) (unknown) Ur MDMA Scrn (units (u nknown) date) (Ecstasy) unknown) (unknown) (no (unknown) (unknown) Ur Oxycodone (units (u nknown) date) Screen Negative unknown) (unknown) (no (unknown) (unknown) Ur Oxycodone (units (u nknown) date) Screen unknown) (unknown) (no (unknown) (unknown) Ur Phencyclidine (units (unknown) date) Scrn Negative unknown) (unknown) (no (unknown) (unknown) Ur Phencyclidine (units (unknown) date) Scrn unknown) (unknown) (no (unknown) (unknown) Urine Cocaine (units ( unknown) date) Screen Negative unknown) (unknown) (no (unknown) (unknown) Urine Cocaine (units ( unknown) date) Screen unknown) (unknown) (no (unknown) (unknown) Urine Methadone (units (unknown) date) Screen Negative unknown) (unknown) (no (unknown) (unknown) Urine Methadone (units (unknown) date) Screen unknown) (unknown) (no (unknown) (unknown) VTE (units (unkno wn) date) unknown) (unknown) (no (unknown) (unknown) Vital Signs (units (un known) date) unknown) (unknown) (no (unknown) (unknown) WBC 10.4 (units (unkno wn) date) unknown) (unknown) (no (unknown) (unknown) WBC (units (unkno wn) date) unknown) (unknown) (no (unknown) (unknown) [Embedded Image (units (unknown) date) Not Available] unknown) (unknown) (no (unknown) (unknown) [From Septra] (units ( unknown) date) unknown) (unknown) (no (unknown) (unknown) adhesive tape (units ( unknown) date) AdvReac Verified unknown) 03/23/22 16:34 (unknown) (no (unknown) (unknown) alcohol intake (units (unknown) date) current unknown) (unknown) (no (unknown) (unknown) alcohol intake (units (unknown) date) frequency 0-2 unknown) drinks per day (unknown) (no (unknown) (unknown) capsule,delayed (units (unknown) date) release (Nexium) unknown) (unknown) (no (unknown) (unknown) consulted and she (units (unknown) date) was admitted for unknown) further treatment. (unknown) (no (unknown) (unknown) desloratadine 5 mg (units (unknown) date) tablet 5 mg PO BID unknown) PRN nasal congestion 01/18/22 Rx (unknown) (no (unknown) (unknown) esomeprazole (units (u nknown) date) magnesium 40 mg 40 unknown) mg PO QDAY ##0 11/29/12 History (unknown) (no (unknown) (unknown) extended release (units (unknown) date) 12 hr (Mucinex) unknown) (unknown) (no (unknown) (unknown) fibromyalgia, and (units (unknown) date) ascending aortic unknown) aneurysm who presents after a fall. She (unknown) (no (unknown) (unknown) fluoxetine 40 mg (units (unknown) date) capsule (Prozac) 80 unknown) 1 ##0 11/29/12 History (unknown) (no (unknown) (unknown) for WBC 10.4, hgb (units (unknown) date) 11.5, plts 290. unknown) Creatinine 1.00. Trop 0.05. COVID negative. (unknown) (no (unknown) (unknown) guaifenesin 600 mg (units (unknown) date) tablet, 600 mg PO unknown) BID #20 tabs 01/18/22 Rx (unknown) (no (unknown) (unknown) household members (units (unknown) date) significant other unknown) (unknown) (no (unknown) (unknown) information. (units (u nknown) date) unknown) (unknown) (no (unknown) (unknown) ketorolac 10 mg (units (unknown) date) tablet 10 mg PO Q6H unknown) PRN pain #14 tabs 06/07/21 Rx (unknown) (no (unknown) (unknown) lasix. Hip xray (units (unknown) date) showed acute unknown) displaced femoral neck fracture. Ortho was (unknown) (no (unknown) (unknown) levothyroxine 125 (units (unknown) date) mcg tablet ##0 unknown) 11/29/12 History (unknown) (no (unknown) (unknown) lidocaine 5 % (units ( unknown) date) topical patch 1 unknown) patch topical DAILY #15 ea 06/07/21 Rx (unknown) (no (unknown) (unknown) medications (units (un known) date) unknown) (unknown) (no (unknown) (unknown) meloxicam 7.5 mg (units (unknown) date) tablet (Mobic) ##0 unknown) 11/29/12 History (unknown) (no (unknown) (unknown) methocarbamol 500 (units (unknown) date) mg tablet 500 mg PO unknown) TID PRN muscle aches #14 01/18/22 Rx (unknown) (no (unknown) (unknown) month ago for she (units (unknown) date) states a heart unknown) attack. She does not provide much more (unknown) (no (unknown) (unknown) nirmatrelvir 300 (units (unknown) date) mg (150 mg See Rx unknown) Instructions PO .COMPLEX 01/18/22 Rx (unknown) (no (unknown) (unknown) oxycodone 5 mg (units (unknown) date) tablet (Roxicodone) unknown) 5 mg PO Q4P ##0 11/29/12 History (unknown) (no (unknown) (unknown) oxygen. She was (units (unknown) date) ordered for fluids unknown) and her blood pressure improved. Labs notale (unknown) (no (unknown) (unknown) pack(EUA) (units (unkn own) date) (Paxlovid) unknown) (unknown) (no (unknown) (unknown) pregabalin 100 mg (units (unknown) date) capsule (Lyrica) 1 unknown) Q DAY ##0 11/29/12 History (unknown) (no (unknown) (unknown) rosuvastatin 20 mg (units (unknown) date) tablet (Crestor) unknown) ##0 11/29/12 History (unknown) (no (unknown) (unknown) states she became (units (unknown) date) tangled up in the unknown) dog leash while walking her dog. She felt on (unknown) (no (unknown) (unknown) strike or loss of (units (unknown) date) consciousness. She unknown) recently was at another facility about a (unknown) (no (unknown) (unknown) sulfamethoxazole (units (unknown) date) Allergy Verified unknown) 03/23/22 16:34 (unknown) (no (unknown) (unknown) tabs (units (unkno wn) date) unknown) (unknown) (no (unknown) (unknown) to her left hip (units (unknown) date) and had immediate unknown) pain and inability to walk. She had no head (unknown) (no (unknown) (unknown) today; this time (units (unknown) date) is exclusive of unknown) procedural time. (unknown) (no (unknown) (unknown) trimethoprim [From (units (unknown) date) Septra] Allergy unknown) Verified 03/23/22 16:34 (unknown) (no (unknown) (unknown) venlafaxine 50 mg (units (unknown) date) tablet 50 mg PO ##0 unknown) 11/29/12 History (unknown) (no (unknown) (unknown) was documented in (units (unknown) date) 60s systolic and unknown) pulse ox in the 80s. She was placed no (unknown) (no (unknown) (unknown) x2)-ritonavir 100 (units (unknown) date) mg tablet,dose #30 unknown) ea Result panel 156 (unknown) (no (unknown) (unknown) (no value) (units (unk nown) date) unknown) (unknown) (no (unknown) (unknown) (Clarinex) #20 (units (unknown) date) tabs unknown) (unknown) (no (unknown) (unknown) (Lidoderm) (units (unk nown) date) unknown) (unknown) (no (unknown) (unknown) (Synthroid) (units (un known) date) unknown) (unknown) (no (unknown) (unknown) (past 8 hours): (units (unknown) date) unknown) (unknown) (no (unknown) (unknown) -ECHO 09/2021 (units (u nknown) date) ascending aneurysm unknown) was 6cm (unknown) (no (unknown) (unknown) -ECHO shows EF (units (unknown) date) 60-65 unknown) (unknown) (no (unknown) (unknown) -IV pain (units (unkno wn) date) medications ordered unknown) (unknown) (no (unknown) (unknown) -PT/OT after (units (u nknown) date) surgery unknown) (unknown) (no (unknown) (unknown) -careful with (units ( unknown) date) fluid overload unknown) (unknown) (no (unknown) (unknown) -continue home (units (unknown) date) meds once unknown) reconciled (unknown) (no (unknown) (unknown) -did get lasix on (units (unknown) date) admit, with good unknown) urine output (unknown) (no (unknown) (unknown) -did require (units (u nknown) date) intermittent oxygen unknown) support (unknown) (no (unknown) (unknown) -has known history (units (unknown) date) of ILD, and recent unknown) cardiac medical issue per patient (unknown) (no (unknown) (unknown) -keep in bed until (units (unknown) date) surgery unknown) (unknown) (no (unknown) (unknown) -order CT angio (units (unknown) date) chest for further unknown) evaluation (unknown) (no (unknown) (unknown) -ortho consulted (units (unknown) date) and plan for unknown) surgery 03/24 (unknown) (no (unknown) (unknown) -supplmental (units (u nknown) date) oxygen PRN unknown) (unknown) (no (unknown) (unknown) -suspect this may (units (unknown) date) be secondary to unknown) ILD, vs fluid overload (unknown) (no (unknown) (unknown) -trend troponins (units (unknown) date) unknown) (unknown) (no (unknown) (unknown) -unclear per (units (u nknown) date) patient what plan unknown) is regarding this (unknown) (no (unknown) (unknown) -was at [facility] (units (unknown) date) recently, will get unknown) records (unknown) (no (unknown) (unknown) [id number] (units (unkno wn) date) unknown) (unknown) (no (unknown) (unknown) 1. Left hip (units (un known) date) fracture unknown) (unknown) (no (unknown) (unknown) 03/23/22 03/23/22 (units (unknown) date) 03/23/22 unknown) (unknown) (no (unknown) (unknown) 03/23/22 16:12 (units (unknown) date) unknown) (unknown) (no (unknown) (unknown) 03/23/22 2224 (units ( unknown) date) unknown) (unknown) (no (unknown) (unknown) 03/23/22 (units (unkno wn) date) unknown) (unknown) (no (unknown) (unknown) 14 systems (units (unk nown) date) reviewed and unknown) negative aside from what is noted in HPI (unknown) (no (unknown) (unknown) 15:47 03/23/22 (units (unknown) date) unknown) (unknown) (no (unknown) (unknown) 15:59 03/23/22 (units (unknown) date) unknown) (unknown) (no (unknown) (unknown) 16:00 03/23/22 (units (unknown) date) unknown) (unknown) (no (unknown) (unknown) 16:00 (units (unkno wn) date) unknown) (unknown) (no (unknown) (unknown) 16:04 03/23/22 (units (unknown) date) unknown) (unknown) (no (unknown) (unknown) 16:04 (units (unkno wn) date) unknown) (unknown) (no (unknown) (unknown) 16:05 03/23/22 (units (unknown) date) unknown) (unknown) (no (unknown) (unknown) 16:10 (units (unkno wn) date) unknown) (unknown) (no (unknown) (unknown) 16:12 16:12 16:12 (units (unknown) date) unknown) (unknown) (no (unknown) (unknown) 16:12 16:54 17:07 (units (unknown) date) unknown) (unknown) (no (unknown) (unknown) 16:15 03/23/22 (units (unknown) date) unknown) (unknown) (no (unknown) (unknown) 16:17 03/23/22 (units (unknown) date) unknown) (unknown) (no (unknown) (unknown) 16:17 (units (unkno wn) date) unknown) (unknown) (no (unknown) (unknown) 16:20 03/23/22 (units (unknown) date) unknown) (unknown) (no (unknown) (unknown) 16:25 03/23/22 (units (unknown) date) unknown) (unknown) (no (unknown) (unknown) 16:25 (units (unkno wn) date) unknown) (unknown) (no (unknown) (unknown) 16:29 03/23/22 (units (unknown) date) unknown) (unknown) (no (unknown) (unknown) 16:30 03/23/22 (units (unknown) date) unknown) (unknown) (no (unknown) (unknown) 16:30 (units (unkno wn) date) unknown) (unknown) (no (unknown) (unknown) 16:43 03/23/22 (units (unknown) date) unknown) (unknown) (no (unknown) (unknown) 16:45 (units (unkno wn) date) unknown) (unknown) (no (unknown) (unknown) 16:50 03/23/22 (units (unknown) date) unknown) (unknown) (no (unknown) (unknown) 16:55 03/23/22 (units (unknown) date) unknown) (unknown) (no (unknown) (unknown) 17:00 (units (unkno wn) date) unknown) (unknown) (no (unknown) (unknown) 17:05 03/23/22 (units (unknown) date) unknown) (unknown) (no (unknown) (unknown) 17:10 03/23/22 (units (unknown) date) unknown) (unknown) (no (unknown) (unknown) 17:15 (units (unkno wn) date) unknown) (unknown) (no (unknown) (unknown) 17:20 03/23/22 (units (unknown) date) unknown) (unknown) (no (unknown) (unknown) 17:25 03/23/22 (units (unknown) date) unknown) (unknown) (no (unknown) (unknown) 17:30 (units (unkno wn) date) unknown) (unknown) (no (unknown) (unknown) 17:35 03/23/22 (units (unknown) date) unknown) (unknown) (no (unknown) (unknown) 17:40 03/23/22 (units (unknown) date) unknown) (unknown) (no (unknown) (unknown) 17:45 (units (unkno wn) date) unknown) (unknown) (no (unknown) (unknown) 17:50 03/23/22 (units (unknown) date) unknown) (unknown) (no (unknown) (unknown) 17:55 03/23/22 (units (unknown) date) unknown) (unknown) (no (unknown) (unknown) 18:00 (units (unkno wn) date) unknown) (unknown) (no (unknown) (unknown) 18:05 03/23/22 (units (unknown) date) unknown) (unknown) (no (unknown) (unknown) 18:10 03/23/22 (units (unknown) date) unknown) (unknown) (no (unknown) (unknown) 18:15 (units (unkno wn) date) unknown) (unknown) (no (unknown) (unknown) 18:20 03/23/22 (units (unknown) date) unknown) (unknown) (no (unknown) (unknown) 18:25 03/23/22 (units (unknown) date) unknown) (unknown) (no (unknown) (unknown) 18:30 (units (unkno wn) date) unknown) (unknown) (no (unknown) (unknown) 18:35 03/23/22 (units (unknown) date) unknown) (unknown) (no (unknown) (unknown) 19:35 (units (unkno wn) date) unknown) (unknown) (no (unknown) (unknown) 2. Acute (units (unkno wn) date) respiratory unknown) distress (unknown) (no (unknown) (unknown) 3. Ascending (units (u nknown) date) aortic aneurysm unknown) (unknown) (no (unknown) (unknown) 4. 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 (unknown) (no (unknown) (unknown) ABD: soft, (units (unk nown) date) nontender, unknown) nondistended, no organomegaly (unknown) (no (unknown) (unknown) ALT 30 (units (unkno wn) date) unknown) (unknown) (no (unknown) (unknown) ALT (units (unkno wn) date) unknown) (unknown) (no (unknown) (unknown) APTT 36 (units (unkno wn) date) unknown) (unknown) (no (unknown) (unknown) APTT (units (unkno wn) date) unknown) (unknown) (no (unknown) (unknown) AST 32 (units (unkno wn) date) unknown) (unknown) (no (unknown) (unknown) AST (units (unkno wn) date) unknown) (unknown) (no (unknown) (unknown) Age/Sex: 72 / F (units (unknown) date) unknown) (unknown) (no (unknown) (unknown) Albumin 3.7 (units (un known) date) unknown) (unknown) (no (unknown) (unknown) Albumin (units (unkno wn) date) unknown) (unknown) (no (unknown) (unknown) Albumin/Globulin (units (unknown) date) Ratio 1.5 unknown) (unknown) (no (unknown) (unknown) Albumin/Globulin (units (unknown) date) Ratio unknown) (unknown) (no (unknown) (unknown) Alkaline (units (unkno wn) date) Phosphatase 88 unknown) (unknown) (no (unknown) (unknown) Alkaline (units (unkno wn) date) Phosphatase unknown) (unknown) (no (unknown) (unknown) Allergies (units (unkn own) date) unknown) (unknown) (no (unknown) (unknown) Allergy/AdvReac (units (unknown) date) Type Severity unknown) Reaction Status Date / Time (unknown) (no (unknown) (unknown) Assessment + Plan (units (unknown) date) narrative: unknown) (unknown) (no (unknown) (unknown) Assessment + Plan (units (unknown) date) unknown) (unknown) (no (unknown) (unknown) BUN 25 H (units (unkno wn) date) unknown) (unknown) (no (unknown) (unknown) BUN (units (unkno wn) date) unknown) (unknown) (no (unknown) (unknown) BUN/Creatinine (units (unknown) date) Ratio 25.0 H unknown) (unknown) (no (unknown) (unknown) BUN/Creatinine (units (unknown) date) Ratio unknown) (unknown) (no (unknown) (unknown) Baso # (Auto) 100 (units (unknown) date) unknown) (unknown) (no (unknown) (unknown) Baso # (Auto) (units ( unknown) date) unknown) (unknown) (no (unknown) (unknown) Baso % (Auto) 0.8 (units (unknown) date) unknown) (unknown) (no (unknown) (unknown) Baso % (Auto) (units ( unknown) date) unknown) (unknown) (no (unknown) (unknown) Been Physically (units (unknown) date) Hurt or No unknown) (unknown) (no (unknown) (unknown) Blood Pressure (units (unknown) date) 108/55 L unknown) (unknown) (no (unknown) (unknown) Blood Pressure (units (unknown) date) 113/44 L unknown) (unknown) (no (unknown) (unknown) Blood Pressure (units (unknown) date) 67/41 L 91/47 L unknown) (unknown) (no (unknown) (unknown) Blood Pressure (units (unknown) date) 90/44 L 97/49 L unknown) (unknown) (no (unknown) (unknown) Blood Pressure (units (unknown) date) 91/45 L unknown) (unknown) (no (unknown) (unknown) Blood Pressure (units (unknown) date) 94/48 L unknown) (unknown) (no (unknown) (unknown) Blood Pressure (units (unknown) date) 98/48 L unknown) (unknown) (no (unknown) (unknown) Blood Pressure (units (unknown) date) unknown) (unknown) (no (unknown) (unknown) CK-MB (CK-2) Rel (units (unknown) date) Index TNP unknown) (unknown) (no (unknown) (unknown) CK-MB (CK-2) Rel (units (unknown) date) Index unknown) (unknown) (no (unknown) (unknown) CK-MB (CK-2) TNP (units (unknown) date) unknown) (unknown) (no (unknown) (unknown) CK-MB (CK-2) (units (u nknown) date) unknown) (unknown) (no (unknown) (unknown) CODE: Full (units (unk nown) date) unknown) (unknown) (no (unknown) (unknown) CV: regular rate (units (unknown) date) and rhythm, no unknown) murmurs (unknown) (no (unknown) (unknown) Calcium 8.8 (units (un known) date) unknown) (unknown) (no (unknown) (unknown) Calcium (units (unkno wn) date) unknown) (unknown) (no (unknown) (unknown) Carbon Dioxide 26 (units (unknown) date) unknown) (unknown) (no (unknown) (unknown) Carbon Dioxide (units (unknown) date) unknown) (unknown) (no (unknown) (unknown) Chest xray read as (units (unknown) date) cardiomegaly and unknown) mild congestion for which she was given (unknown) (no (unknown) (unknown) Chief complaint: (units (unknown) date) hip pain unknown) (unknown) (no (unknown) (unknown) Chloride 101 (units (u nknown) date) unknown) (unknown) (no (unknown) (unknown) Chloride (units (unkno wn) date) unknown) (unknown) (no (unknown) (unknown) Creatinine 1.00 (units (unknown) date) unknown) (unknown) (no (unknown) (unknown) Creatinine (units (unk nown) date) unknown) (unknown) (no (unknown) (unknown) Critical Care (units ( unknown) date) time: unknown) (unknown) (no (unknown) (unknown) : 1950 (units (unknown) date) Acct:[id number] unknown) (unknown) (no (unknown) (unknown) Date Patient Seen: (units (unknown) date) 03/23/22 unknown) (unknown) (no (unknown) (unknown) Date of Service: (units (unknown) date) 03/23/22 unknown) (unknown) (no (unknown) (unknown) Deep Vein (units (unkn own) date) Thrombosis/Pulmonar unknown) y Embolism Present on Admission: No (unknown) (no (unknown) (unknown) EXT: warm and well (units (unknown) date) perfused, left leg unknown) tenderness (unknown) (no (unknown) (unknown) Environment (units (un known) date) unknown) (unknown) (no (unknown) (unknown) Eos # (Auto) 200 (units (unknown) date) unknown) (unknown) (no (unknown) (unknown) Eos # (Auto) (units (u nknown) date) unknown) (unknown) (no (unknown) (unknown) Eos % (Auto) 1.9 L (units (unknown) date) unknown) (unknown) (no (unknown) (unknown) Eos % (Auto) (units (u nknown) date) unknown) (unknown) (no (unknown) (unknown) Estimated GFR > 60 (units (unknown) date) unknown) (unknown) (no (unknown) (unknown) Estimated GFR (units ( unknown) date) unknown) (unknown) (no (unknown) (unknown) Ethyl Alcohol < 10 (units (unknown) date) unknown) (unknown) (no (unknown) (unknown) Ethyl Alcohol (units ( unknown) date) unknown) (unknown) (no (unknown) (unknown) Exam Narrative: (units (unknown) date) unknown) (unknown) (no (unknown) (unknown) Exam (units (unkno wn) date) unknown) (unknown) (no (unknown) (unknown) Family + Social (units (unknown) date) History unknown) (unknown) (no (unknown) (unknown) Family history: (units (unknown) date) mother with TIA unknown) (unknown) (no (unknown) (unknown) Feels Safe in (units ( unknown) date) Current Yes unknown) (unknown) (no (unknown) (unknown) Fibromyalgia (units (u nknown) date) unknown) (unknown) (no (unknown) (unknown) GEN: distress from (units (unknown) date) pain unknown) (unknown) (no (unknown) (unknown) Globulin 2.5 (units (u nknown) date) unknown) (unknown) (no (unknown) (unknown) Globulin (units (unkno wn) date) unknown) (unknown) (no (unknown) (unknown) Glucosamine (units (un known) date) Sulfate unknown) (GLUCOSAMINE) ##0 11/29/12 History (unknown) (no (unknown) (unknown) Glucose 115 H (units ( unknown) date) unknown) (unknown) (no (unknown) (unknown) Glucose (units (unkno wn) date) unknown) (unknown) (no (unknown) (unknown) HEENT: moist (units (u nknown) date) mucous membranes, unknown) PERRL (unknown) (no (unknown) (unknown) Hct 34.5 L (units (unk nown) date) unknown) (unknown) (no (unknown) (unknown) Hct (units (unkno wn) date) unknown) (unknown) (no (unknown) (unknown) Hgb 11.5 L (units (unk nown) date) unknown) (unknown) (no (unknown) (unknown) Hgb (units (unkno wn) date) unknown) (unknown) (no (unknown) (unknown) History + Physical (units (unknown) date) Report unknown) (unknown) (no (unknown) (unknown) History of Present (units (unknown) date) Illness unknown) (unknown) (no (unknown) (unknown) Home Medications (units (unknown) date) and Allergies unknown) (unknown) (no (unknown) (unknown) Home Medications (units (unknown) date) unknown) (unknown) (no (unknown) (unknown) Hypertension (units (u nknown) date) unknown) (unknown) (no (unknown) (unknown) Hypothyroidism (units (unknown) date) unknown) (unknown) (no (unknown) (unknown) I have utilized (units (unknown) date) all available unknown) resources to reconcile the patient's home (unknown) (no (unknown) (unknown) I spent a total of (units (unknown) date) [] minutes of unknown) critical care time on this patient's care (unknown) (no (unknown) (unknown) INR 1.2 (units (unkno wn) date) unknown) (unknown) (no (unknown) (unknown) INR (units (unkno wn) date) unknown) (unknown) (no (unknown) (unknown) In the ED workup (units (unknown) date) was done, vitals unknown) notable for afebrile, initial blood pressure (unknown) (no (unknown) (unknown) [facility] (units (unknown) date) [address] unknown) [place] [address] (unknown) (no (unknown) (unknown) Laboratory Results (units (unknown) date) - last 24 hr unknown) (unknown) (no (unknown) (unknown) Labs (units (unkno wn) date) unknown) (unknown) (no (unknown) (unknown) Labs: (units (unkno wn) date) unknown) (unknown) (no (unknown) (unknown) Lymph # (Auto) (units (unknown) date) 2000 unknown) (unknown) (no (unknown) (unknown) Lymph # (Auto) (units (unknown) date) unknown) (unknown) (no (unknown) (unknown) Lymph % (Auto) (units (unknown) date) 19.6 L unknown) (unknown) (no (unknown) (unknown) Lymph % (Auto) (units (unknown) date) unknown) (unknown) (no (unknown) (unknown) MCH 29.0 (units (unkno wn) date) unknown) (unknown) (no (unknown) (unknown) MCH (units (unkno wn) date) unknown) (unknown) (no (unknown) (unknown) MCHC 33.2 (units (unkn own) date) unknown) (unknown) (no (unknown) (unknown) MCHC (units (unkno wn) date) unknown) (unknown) (no (unknown) (unknown) MCV 87.4 (units (unkno wn) date) unknown) (unknown) (no (unknown) (unknown) MCV (units (unkno wn) date) unknown) (unknown) (no (unknown) (unknown) Magnesium 1.9 (units ( unknown) date) unknown) (unknown) (no (unknown) (unknown) Magnesium (units (unkn own) date) unknown) (unknown) (no (unknown) (unknown) Medical History (units (unknown) date) (Reviewed 03/23/22 unknown) @ 21:59 by Lincoln Valenzuela MD) (unknown) (no (unknown) (unknown) Medication (units (unk nown) date) Instructions unknown) Recorded Confirmed Type (unknown) (no (unknown) (unknown) Meds (units (unkno wn) date) unknown) (unknown) (no (unknown) (unknown) [place] # (Auto) 800 (units (unknown) date) unknown) (unknown) (no (unknown) (unknown) [place] # (Auto) (units ( unknown) date) unknown) (unknown) (no (unknown) (unknown) [place] % (Auto) 7.6 (units (unknown) date) unknown) (unknown) (no (unknown) (unknown) [place] % (Auto) (units ( unknown) date) unknown) (unknown) (no (unknown) (unknown) Ms. Rock is a (units (unknown) date) 72W with idiopathic unknown) pulmonary fibrosis, HTN, hypothyroid, (unknown) (no (unknown) (unknown) NECK: trachea (units ( unknown) date) midline, no JVD unknown) (unknown) (no (unknown) (unknown) NEURO: awake, (units ( unknown) date) alert, oriented, no unknown) focal deficits (unknown) (no (unknown) (unknown) Narrative (units (unkn own) date) unknown) (unknown) (no (unknown) (unknown) Narrative: (units (unk nown) date) unknown) (unknown) (no (unknown) (unknown) Neut # (Auto) 7300 (units (unknown) date) H unknown) (unknown) (no (unknown) (unknown) Neut # (Auto) (units ( unknown) date) unknown) (unknown) (no (unknown) (unknown) Neut % (Auto) 70.1 (units (unknown) date) unknown) (unknown) (no (unknown) (unknown) Neut % (Auto) (units ( unknown) date) unknown) (unknown) (no (unknown) (unknown) No pertinent past (units (unknown) date) surgical history unknown) (unknown) (no (unknown) (unknown) Objective (units (unkn own) date) unknown) (unknown) (no (unknown) (unknown) Oxygen Delivery (units (unknown) date) Method Nasal unknown) Cannula Nasal Cannula Nasal Cannula (unknown) (no (unknown) (unknown) Oxygen Delivery (units (unknown) date) Method Nasal unknown) Cannula (unknown) (no (unknown) (unknown) Oxygen Delivery (units (unknown) date) Method Room Air unknown) (unknown) (no (unknown) (unknown) Oxygen Delivery (units (unknown) date) Method unknown) (unknown) (no (unknown) (unknown) Oxygen Flow Rate 0 (units (unknown) date) unknown) (unknown) (no (unknown) (unknown) Oxygen Flow Rate (units (unknown) date) 1.5 0 unknown) (unknown) (no (unknown) (unknown) Oxygen Flow Rate 2 (units (unknown) date) 2 2 unknown) (unknown) (no (unknown) (unknown) Oxygen Flow Rate 2 (units (unknown) date) unknown) (unknown) (no (unknown) (unknown) Oxygen Flow Rate (units (unknown) date) 3.5 unknown) (unknown) (no (unknown) (unknown) Oxygen Flow Rate (units (unknown) date) unknown) (unknown) (no (unknown) (unknown) PT 14.2 H (units (unkn own) date) unknown) (unknown) (no (unknown) (unknown) PT (units (unkno wn) date) unknown) (unknown) (no (unknown) (unknown) PULM: fine (units (unk nown) date) crackles unknown) bilaterally (unknown) (no (unknown) (unknown) Patient History (units (unknown) date) unknown) (unknown) (no (unknown) (unknown) Patient: (units (unkno wn) date) Elidia Rock unknown) MR#: [id number] (unknown) (no (unknown) (unknown) Plt Count 290 (units ( unknown) date) unknown) (unknown) (no (unknown) (unknown) Plt Count (units (unkn own) date) unknown) (unknown) (no (unknown) (unknown) Potassium 3.7 (units ( unknown) date) unknown) (unknown) (no (unknown) (unknown) Potassium (units (unkn own) date) unknown) (unknown) (no (unknown) (unknown) Prior Living (units (u nknown) date) Arrangements House unknown) (unknown) (no (unknown) (unknown) Provider: (units (unkn own) date) Lincoln Valenzuela MD unknown) (unknown) (no (unknown) (unknown) Proxy: Heraclio (units (unknown) date) Emery, life unknown) partner (unknown) (no (unknown) (unknown) Pulse Oximetry 84 (units (unknown) date) L 82 L unknown) (unknown) (no (unknown) (unknown) Pulse Oximetry 84 (units (unknown) date) L 94 unknown) (unknown) (no (unknown) (unknown) Pulse Oximetry 86 (units (unknown) date) L 82 L unknown) (unknown) (no (unknown) (unknown) Pulse Oximetry 86 (units (unknown) date) L 88 L 85 L unknown) (unknown) (no (unknown) (unknown) Pulse Oximetry 89 (units (unknown) date) L 95 96 unknown) (unknown) (no (unknown) (unknown) Pulse Oximetry 91 (units (unknown) date) 92 93 unknown) (unknown) (no (unknown) (unknown) Pulse Oximetry 92 (units (unknown) date) 88 L unknown) (unknown) (no (unknown) (unknown) Pulse Oximetry 93 (units (unknown) date) 91 92 unknown) (unknown) (no (unknown) (unknown) Pulse Oximetry 93 (units (unknown) date) 93 unknown) (unknown) (no (unknown) (unknown) Pulse Oximetry 94 (units (unknown) date) 96 94 unknown) (unknown) (no (unknown) (unknown) Pulse Oximetry 94 (units (unknown) date) unknown) (unknown) (no (unknown) (unknown) Pulse Oximetry 95 (units (unknown) date) 93 unknown) (unknown) (no (unknown) (unknown) Pulse Oximetry 95 (units (unknown) date) 96 94 unknown) (unknown) (no (unknown) (unknown) Pulse Oximetry 97 (units (unknown) date) 95 unknown) (unknown) (no (unknown) (unknown) Pulse Oximetry 99 (units (unknown) date) 90 L 94 unknown) (unknown) (no (unknown) (unknown) Pulse Rate 59 L 59 (units (unknown) date) L 60 unknown) (unknown) (no (unknown) (unknown) Pulse Rate 59 L 59 (units (unknown) date) L unknown) (unknown) (no (unknown) (unknown) Pulse Rate 59 L (units (unknown) date) unknown) (unknown) (no (unknown) (unknown) Pulse Rate 60 59 L (units (unknown) date) unknown) (unknown) (no (unknown) (unknown) Pulse Rate 61 60 (units (unknown) date) 61 unknown) (unknown) (no (unknown) (unknown) Pulse Rate 62 62 (units (unknown) date) 62 unknown) (unknown) (no (unknown) (unknown) Pulse Rate 62 66 (units (unknown) date) 68 unknown) (unknown) (no (unknown) (unknown) Pulse Rate 63 64 (units (unknown) date) 66 unknown) (unknown) (no (unknown) (unknown) Pulse Rate 64 65 (units (unknown) date) unknown) (unknown) (no (unknown) (unknown) Pulse Rate 64 66 (units (unknown) date) unknown) (unknown) (no (unknown) (unknown) Pulse Rate 65 59 L (units (unknown) date) unknown) (unknown) (no (unknown) (unknown) Pulse Rate 66 65 (units (unknown) date) 64 unknown) (unknown) (no (unknown) (unknown) Pulse Rate 67 63 (units (unknown) date) unknown) (unknown) (no (unknown) (unknown) Pulse Rate 67 67 (units (unknown) date) 67 unknown) (unknown) (no (unknown) (unknown) Pulse Rate 67 69 (units (unknown) date) 68 unknown) (unknown) (no (unknown) (unknown) Quality (units (unkno wn) date) unknown) (unknown) (no (unknown) (unknown) RBC 3.95 L (units (unk nown) date) unknown) (unknown) (no (unknown) (unknown) RBC (units (unkno wn) date) unknown) (unknown) (no (unknown) (unknown) RDW 14.3 (units (unkno wn) date) unknown) (unknown) (no (unknown) (unknown) RDW (units (unkno wn) date) unknown) (unknown) (no (unknown) (unknown) Respiratory Rate (units (unknown) date) 18 22 unknown) (unknown) (no (unknown) (unknown) Respiratory Rate (units (unknown) date) 21 12 unknown) (unknown) (no (unknown) (unknown) Respiratory Rate (units (unknown) date) 21 unknown) (unknown) (no (unknown) (unknown) Respiratory Rate (units (unknown) date) 26 H 35 H unknown) (unknown) (no (unknown) (unknown) Respiratory Rate (units (unknown) date) 30 H 34 H 40 H unknown) (unknown) (no (unknown) (unknown) Respiratory Rate (units (unknown) date) 31 H 17 unknown) (unknown) (no (unknown) (unknown) Respiratory Rate (units (unknown) date) 32 H 29 H 27 H unknown) (unknown) (no (unknown) (unknown) Respiratory Rate (units (unknown) date) 33 H 27 H unknown) (unknown) (no (unknown) (unknown) Respiratory Rate (units (unknown) date) 33 H 36 H 41 H unknown) (unknown) (no (unknown) (unknown) Respiratory Rate (units (unknown) date) 36 H 39 H unknown) (unknown) (no (unknown) (unknown) Respiratory Rate (units (unknown) date) 39 H 31 H 33 H unknown) (unknown) (no (unknown) (unknown) Respiratory Rate (units (unknown) date) 39 H 31 H unknown) (unknown) (no (unknown) (unknown) Respiratory Rate (units (unknown) date) 40 H 31 H 40 H unknown) (unknown) (no (unknown) (unknown) Respiratory Rate (units (unknown) date) 43 H 32 H 38 H unknown) (unknown) (no (unknown) (unknown) Respiratory Rate (units (unknown) date) 55 H 32 H 62 H unknown) (unknown) (no (unknown) (unknown) Restrictive lung (units (unknown) date) disease unknown) (unknown) (no (unknown) (unknown) Result Diagrams: (units (unknown) date) unknown) (unknown) (no (unknown) (unknown) Review of Systems (units (unknown) date) unknown) (unknown) (no (unknown) (unknown) SARS-CoV-2 (PCR) (units (unknown) date) Negative unknown) (unknown) (no (unknown) (unknown) SARS-CoV-2 (PCR) (units (unknown) date) unknown) (unknown) (no (unknown) (unknown) Safety + (units (unkno wn) date) Behavioral: unknown) (unknown) (no (unknown) (unknown) Signed (units (unkno wn) date) By:<Electronically unknown) signed by Lincoln Valenzuela MD> (unknown) (no (unknown) (unknown) Smoking Status (units (unknown) date) Former smoker unknown) (unknown) (no (unknown) (unknown) Social History: (units (unknown) date) unknown) (unknown) (no (unknown) (unknown) Social history: (units (unknown) date) she denies alcohol, unknown) cigarettes, other substance use (unknown) (no (unknown) (unknown) Sodium 135 L (units (u nknown) date) unknown) (unknown) (no (unknown) (unknown) Sodium (units (unkno wn) date) unknown) (unknown) (no (unknown) (unknown) Substance Use Type (units (unknown) date) marijuana,amphetami unknown) helen,opiates,methamp hetamine (unknown) (no (unknown) (unknown) Surgical History (units (unknown) date) (Reviewed 03/23/22 unknown) @ 21:59 by Lincoln Valenzuela MD) (unknown) (no (unknown) (unknown) Temperature 97.9 F (units (unknown) date) unknown) (unknown) (no (unknown) (unknown) Temperature 98.4 F (units (unknown) date) unknown) (unknown) (no (unknown) (unknown) Temperature (units (un known) date) unknown) (unknown) (no (unknown) (unknown) Threatened By a (units (unknown) date) Person unknown) (unknown) (no (unknown) (unknown) Time Patient Seen: (units (unknown) date) 21:00 unknown) (unknown) (no (unknown) (unknown) Time Spent With (units (unknown) date) Patient unknown) (unknown) (no (unknown) (unknown) Tobacco + (units (unkn own) date) Substance use: unknown) (unknown) (no (unknown) (unknown) Tobacco type (units (u nknown) date) cigarettes unknown) (unknown) (no (unknown) (unknown) Total Bilirubin (units (unknown) date) 0.7 unknown) (unknown) (no (unknown) (unknown) Total Bilirubin (units (unknown) date) unknown) (unknown) (no (unknown) (unknown) Total Creatine (units (unknown) date) Kinase 88 unknown) (unknown) (no (unknown) (unknown) Total Creatine (units (unknown) date) Kinase unknown) (unknown) (no (unknown) (unknown) Total Protein 6.2 (units (unknown) date) L unknown) (unknown) (no (unknown) (unknown) Total Protein (units ( unknown) date) unknown) (unknown) (no (unknown) (unknown) Troponin I 0.050 H (units (unknown) date) unknown) (unknown) (no (unknown) (unknown) Troponin I (units (unk nown) date) unknown) (unknown) (no (unknown) (unknown) U Benzodiazepines (units (unknown) date) Scrn Positive H unknown) (unknown) (no (unknown) (unknown) U Benzodiazepines (units (unknown) date) Scrn unknown) (unknown) (no (unknown) (unknown) U Marijuana (THC) (units (unknown) date) Screen Positive H unknown) (unknown) (no (unknown) (unknown) U Marijuana (THC) (units (unknown) date) Screen unknown) (unknown) (no (unknown) (unknown) U Methamphetamines (units (unknown) date) Scrn Positive H unknown) (unknown) (no (unknown) (unknown) U Methamphetamines (units (unknown) date) Scrn unknown) (unknown) (no (unknown) (unknown) U Opiates 300ng/mL (units (unknown) date) cut Negative unknown) (unknown) (no (unknown) (unknown) U Opiates 300ng/mL (units (unknown) date) cut unknown) (unknown) (no (unknown) (unknown) U Tricyclic (units (un known) date) Antidepress unknown) Negative (unknown) (no (unknown) (unknown) U Tricyclic (units (un known) date) Antidepress unknown) (unknown) (no (unknown) (unknown) Ur Amphetamines (units (unknown) date) Screen Positive H unknown) (unknown) (no (unknown) (unknown) Ur Amphetamines (units (unknown) date) Screen unknown) (unknown) (no (unknown) (unknown) Ur Barbiturates (units (unknown) date) Screen Negative unknown) (unknown) (no (unknown) (unknown) Ur Barbiturates (units (unknown) date) Screen unknown) (unknown) (no (unknown) (unknown) Ur MDMA Scrn (units (u nknown) date) (Ecstasy) Negative unknown) (unknown) (no (unknown) (unknown) Ur MDMA Scrn (units (u nknown) date) (Ecstasy) unknown) (unknown) (no (unknown) (unknown) Ur Oxycodone (units (u nknown) date) Screen Negative unknown) (unknown) (no (unknown) (unknown) Ur Oxycodone (units (u nknown) date) Screen unknown) (unknown) (no (unknown) (unknown) Ur Phencyclidine (units (unknown) date) Scrn Negative unknown) (unknown) (no (unknown) (unknown) Ur Phencyclidine (units (unknown) date) Scrn unknown) (unknown) (no (unknown) (unknown) Urine Cocaine (units ( unknown) date) Screen Negative unknown) (unknown) (no (unknown) (unknown) Urine Cocaine (units ( unknown) date) Screen unknown) (unknown) (no (unknown) (unknown) Urine Methadone (units (unknown) date) Screen Negative unknown) (unknown) (no (unknown) (unknown) Urine Methadone (units (unknown) date) Screen unknown) (unknown) (no (unknown) (unknown) VTE (units (unkno wn) date) unknown) (unknown) (no (unknown) (unknown) Vital Signs (units (un known) date) unknown) (unknown) (no (unknown) (unknown) WBC 10.4 (units (unkno wn) date) unknown) (unknown) (no (unknown) (unknown) WBC (units (unkno wn) date) unknown) (unknown) (no (unknown) (unknown) [Embedded Image (units (unknown) date) Not Available] unknown) (unknown) (no (unknown) (unknown) [From Septra] (units ( unknown) date) unknown) (unknown) (no (unknown) (unknown) adhesive tape (units ( unknown) date) AdvReac Verified unknown) 03/23/22 16:34 (unknown) (no (unknown) (unknown) alcohol intake (units (unknown) date) current unknown) (unknown) (no (unknown) (unknown) alcohol intake (units (unknown) date) frequency 0-2 unknown) drinks per day (unknown) (no (unknown) (unknown) capsule,delayed (units (unknown) date) release (Nexium) unknown) (unknown) (no (unknown) (unknown) consulted and she (units (unknown) date) was admitted for unknown) further treatment. (unknown) (no (unknown) (unknown) desloratadine 5 mg (units (unknown) date) tablet 5 mg PO BID unknown) PRN nasal congestion 01/18/22 Rx (unknown) (no (unknown) (unknown) esomeprazole (units (u nknown) date) magnesium 40 mg 40 unknown) mg PO QDAY ##0 11/29/12 History (unknown) (no (unknown) (unknown) extended release (units (unknown) date) 12 hr (Mucinex) unknown) (unknown) (no (unknown) (unknown) fibromyalgia, and (units (unknown) date) ascending aortic unknown) aneurysm who presents after a fall. She (unknown) (no (unknown) (unknown) fluoxetine 40 mg (units (unknown) date) capsule (Prozac) 80 unknown) 1 ##0 11/29/12 History (unknown) (no (unknown) (unknown) for WBC 10.4, hgb (units (unknown) date) 11.5, plts 290. unknown) Creatinine 1.00. Trop 0.05. COVID negative. (unknown) (no (unknown) (unknown) guaifenesin 600 mg (units (unknown) date) tablet, 600 mg PO unknown) BID #20 tabs 01/18/22 Rx (unknown) (no (unknown) (unknown) household members (units (unknown) date) significant other unknown) (unknown) (no (unknown) (unknown) information. (units (u nknown) date) unknown) (unknown) (no (unknown) (unknown) ketorolac 10 mg (units (unknown) date) tablet 10 mg PO Q6H unknown) PRN pain #14 tabs 06/07/21 Rx (unknown) (no (unknown) (unknown) lasix. Hip xray (units (unknown) date) showed acute unknown) displaced femoral neck fracture. Ortho was (unknown) (no (unknown) (unknown) levothyroxine 125 (units (unknown) date) mcg tablet ##0 unknown) 11/29/12 History (unknown) (no (unknown) (unknown) lidocaine 5 % (units ( unknown) date) topical patch 1 unknown) patch topical DAILY #15 ea 06/07/21 Rx (unknown) (no (unknown) (unknown) medications (units (un known) date) unknown) (unknown) (no (unknown) (unknown) meloxicam 7.5 mg (units (unknown) date) tablet (Mobic) ##0 unknown) 11/29/12 History (unknown) (no (unknown) (unknown) methocarbamol 500 (units (unknown) date) mg tablet 500 mg PO unknown) TID PRN muscle aches #14 01/18/22 Rx (unknown) (no (unknown) (unknown) month ago for she (units (unknown) date) states a heart unknown) attack. She does not provide much more (unknown) (no (unknown) (unknown) nirmatrelvir 300 (units (unknown) date) mg (150 mg See Rx unknown) Instructions PO .COMPLEX 01/18/22 Rx (unknown) (no (unknown) (unknown) oxycodone 5 mg (units (unknown) date) tablet (Roxicodone) unknown) 5 mg PO Q4P ##0 11/29/12 History (unknown) (no (unknown) (unknown) oxygen. She was (units (unknown) date) ordered for fluids unknown) and her blood pressure improved. Labs notale (unknown) (no (unknown) (unknown) pack(EUA) (units (unkn own) date) (Paxlovid) unknown) (unknown) (no (unknown) (unknown) pregabalin 100 mg (units (unknown) date) capsule (Lyrica) 1 unknown) Q DAY ##0 11/29/12 History (unknown) (no (unknown) (unknown) rosuvastatin 20 mg (units (unknown) date) tablet (Crestor) unknown) ##0 11/29/12 History (unknown) (no (unknown) (unknown) states she became (units (unknown) date) tangled up in the unknown) dog leash while walking her dog. She felt on (unknown) (no (unknown) (unknown) strike or loss of (units (unknown) date) consciousness. She unknown) recently was at another facility about a (unknown) (no (unknown) (unknown) sulfamethoxazole (units (unknown) date) Allergy Verified unknown) 03/23/22 16:34 (unknown) (no (unknown) (unknown) tabs (units (unkno wn) date) unknown) (unknown) (no (unknown) (unknown) to her left hip (units (unknown) date) and had immediate unknown) pain and inability to walk. She had no head (unknown) (no (unknown) (unknown) today; this time (units (unknown) date) is exclusive of unknown) procedural time. (unknown) (no (unknown) (unknown) trimethoprim [From (units (unknown) date) Septra] Allergy unknown) Verified 03/23/22 16:34 (unknown) (no (unknown) (unknown) venlafaxine 50 mg (units (unknown) date) tablet 50 mg PO ##0 unknown) 11/29/12 History (unknown) (no (unknown) (unknown) was documented in (units (unknown) date) 60s systolic and unknown) pulse ox in the 80s. She was placed no (unknown) (no (unknown) (unknown) x2)-ritonavir 100 (units (unknown) date) mg tablet,dose #30 unknown) ea Result panel 157 (unknown) (no date) (unknown) (unknown) 0 /ul (unkn own) (unknown) (no date) (unknown) (unknown) 0.3 % (unkn own) (unknown) (no date) (unknown) (unknown) 10.3 % (unkn own) (unknown) (no date) (unknown) (unknown) 10.6 x10 3/ul (unkn own) (unknown) (no date) (unknown) (unknown) 11.4 g/dl (unkn own) (unknown) (no date) (unknown) (unknown) 1100 /ul (unkn own) (unknown) (no date) (unknown) (unknown) 14.3 % (unkn own) (unknown) (no date) (unknown) (unknown) 2.9 % (unkn own) (unknown) (no date) (unknown) (unknown) 254 x10 3/ul (unkn own) (unknown) (no date) (unknown) (unknown) 28.7 pg (unkn own) (unknown) (no date) (unknown) (unknown) 3.98 x10 6/ul (unkn own) (unknown) (no date) (unknown) (unknown) 300 /ul (unkn own) (unknown) (no date) (unknown) (unknown) 32.8 % (unkn own) (unknown) (no date) (unknown) (unknown) 34.8 % (unkn own) (unknown) (no date) (unknown) (unknown) 6.3 % (unkn own) (unknown) (no date) (unknown) (unknown) 700 /ul (unkn own) (unknown) (no date) (unknown) (unknown) 80.2 % (unkn own) (unknown) (no date) (unknown) (unknown) 8500 /ul (unkn own) (unknown) (no date) (unknown) (unknown) 87.4 fl (unkn own) Result panel 158 (unknown) (no date) (unknown) (unknown) 1.07 mg/dl (unkn own) (unknown) (no date) (unknown) (unknown) 101 mmol/l (unkn own) (unknown) (no date) (unknown) (unknown) 120 mg/dl (unkn own) (unknown) (no date) (unknown) (unknown) 120 mg/dl (unkn own) (unknown) (no date) (unknown) (unknown) 135 mmol/l (unkn own) (unknown) (no date) (unknown) (unknown) 20.6 (units unknown) (unknown) (unknown) (no date) (unknown) (unknown) 22 mg/dl (unkn own) (unknown) (no date) (unknown) (unknown) 27 mmol/l (unkn own) (unknown) (no date) (unknown) (unknown) 4.0 mmol/l (unkn own) (unknown) (no date) (unknown) (unknown) 56 ml/min (unkn own) (unknown) (no date) (unknown) (unknown) 56 ml/min (unkn own) (unknown) (no date) (unknown) (unknown) 8.7 mg/dl (unkn own) Result panel 159 (unknown) (no date) (unknown) (unknown) 0.041 ng/ml (unkn own) (unknown) (no date) (unknown) (unknown) 0.041 ng/ml (unkn own) Result panel 160 (unknown) (no (unknown) (unknown) (no value) (units (unk nown) date) unknown) (unknown) (no (unknown) (unknown) (past 8 hours): (units (unknown) date) unknown) (unknown) (no (unknown) (unknown) -CTA showed (units (un known) date) aneurysm of 6.4cm unknown) (unknown) (no (unknown) (unknown) -ECHO 09/2021 (units (u nknown) date) ascending aneurysm unknown) was 6cm (unknown) (no (unknown) (unknown) -ECHO shows EF (units (unknown) date) 60-65 unknown) (unknown) (no (unknown) (unknown) -IV pain (units (unkno wn) date) medications ordered unknown) (unknown) (no (unknown) (unknown) -PT/OT after (units (u nknown) date) surgery unknown) (unknown) (no (unknown) (unknown) -careful with (units ( unknown) date) fluid overload unknown) (unknown) (no (unknown) (unknown) -continue home (units (unknown) date) meds once unknown) reconciled (unknown) (no (unknown) (unknown) -did get lasix on (units (unknown) date) admit, with good unknown) urine output (unknown) (no (unknown) (unknown) -did require (units (u nknown) date) intermittent oxygen unknown) support (unknown) (no (unknown) (unknown) -has known history (units (unknown) date) of ILD, and recent unknown) cardiac medical issue per patient (unknown) (no (unknown) (unknown) -keep blood (units (un known) date) pressure controlled unknown) (unknown) (no (unknown) (unknown) -keep in bed until (units (unknown) date) surgery unknown) (unknown) (no (unknown) (unknown) -no chest pain or (units (unknown) date) EKG changes unknown) (unknown) (no (unknown) (unknown) -ortho consulted (units (unknown) date) and plan for unknown) surgery 03/24 (unknown) (no (unknown) (unknown) -she has been (units ( unknown) date) referred for follow unknown) up for this but this has not happened (unknown) (no (unknown) (unknown) -supplmental (units (u nknown) date) oxygen PRN unknown) (unknown) (no (unknown) (unknown) -suspect secondary (units (unknown) date) to cardiac demand unknown) (unknown) (no (unknown) (unknown) -suspect this may (units (unknown) date) be secondary to unknown) ILD, vs fluid overload (unknown) (no (unknown) (unknown) -trend troponins (units (unknown) date) unknown) (unknown) (no (unknown) (unknown) -troponin .050 but (units (unknown) date) now downtrending to unknown) .041 (unknown) (no (unknown) (unknown) -was at [facility] (units (unknown) date) recently, records unknown) showed possible NSTEMI at the end of February (unknown) (no (unknown) (unknown) 01:14 (units (unkno wn) date) unknown) (unknown) (no (unknown) (unknown) [id number] (units (unkno wn) date) unknown) (unknown) (no (unknown) (unknown) 04:49 04:49 04:49 (units (unknown) date) unknown) (unknown) (no (unknown) (unknown) 1. Left hip (units (un known) date) fracture unknown) (unknown) (no (unknown) (unknown) 03/23/22 03/23/22 (units (unknown) date) 03/23/22 unknown) (unknown) (no (unknown) (unknown) 03/24/22 04:49 (units (unknown) date) unknown) (unknown) (no (unknown) (unknown) 03/24/22 0713 (units ( unknown) date) unknown) (unknown) (no (unknown) (unknown) 03/24/22 03/24/22 (units (unknown) date) 03/24/22 unknown) (unknown) (no (unknown) (unknown) 03/24/22 (units (unkno wn) date) unknown) (unknown) (no (unknown) (unknown) 16:12 16:12 16:12 (units (unknown) date) unknown) (unknown) (no (unknown) (unknown) 16:12 16:54 17:07 (units (unknown) date) unknown) (unknown) (no (unknown) (unknown) 2. Acute (units (unkno wn) date) respiratory unknown) distress (unknown) (no (unknown) (unknown) 3. Ascending (units (u nknown) date) aortic aneurysm unknown) (unknown) (no (unknown) (unknown) 4. Elevated (units (un known) date) troponin unknown) (unknown) (no (unknown) (unknown) 5. 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 (unknown) (no (unknown) (unknown) ABD: soft, (units (unk nown) date) nontender, unknown) nondistended, no organomegaly (unknown) (no (unknown) (unknown) ALT 30 (units (unkno wn) date) unknown) (unknown) (no (unknown) (unknown) ALT (units (unkno wn) date) unknown) (unknown) (no (unknown) (unknown) APTT 36 (units (unkno wn) date) unknown) (unknown) (no (unknown) (unknown) APTT (units (unkno wn) date) unknown) (unknown) (no (unknown) (unknown) AST 32 (units (unkno wn) date) unknown) (unknown) (no (unknown) (unknown) AST (units (unkno wn) date) unknown) (unknown) (no (unknown) (unknown) Age/Sex: 72 / F (units (unknown) date) unknown) (unknown) (no (unknown) (unknown) Albumin 3.7 (units (un known) date) unknown) (unknown) (no (unknown) (unknown) Albumin (units (unkno wn) date) unknown) (unknown) (no (unknown) (unknown) Albumin/Globulin (units (unknown) date) Ratio 1.5 unknown) (unknown) (no (unknown) (unknown) Albumin/Globulin (units (unknown) date) Ratio unknown) (unknown) (no (unknown) (unknown) Alkaline (units (unkno wn) date) Phosphatase 88 unknown) (unknown) (no (unknown) (unknown) Alkaline (units (unkno wn) date) Phosphatase unknown) (unknown) (no (unknown) (unknown) Assessment + Plan (units (unknown) date) narrative: unknown) (unknown) (no (unknown) (unknown) Assessment + Plan (units (unknown) date) unknown) (unknown) (no (unknown) (unknown) BUN 22 H (units (unkno wn) date) unknown) (unknown) (no (unknown) (unknown) BUN 25 H (units (unkno wn) date) unknown) (unknown) (no (unknown) (unknown) BUN (units (unkno wn) date) unknown) (unknown) (no (unknown) (unknown) BUN/Creatinine (units (unknown) date) Ratio 20.6 unknown) (unknown) (no (unknown) (unknown) BUN/Creatinine (units (unknown) date) Ratio 25.0 H unknown) (unknown) (no (unknown) (unknown) BUN/Creatinine (units (unknown) date) Ratio unknown) (unknown) (no (unknown) (unknown) Baso # (Auto) 0 (units (unknown) date) unknown) (unknown) (no (unknown) (unknown) Baso # (Auto) 100 (units (unknown) date) unknown) (unknown) (no (unknown) (unknown) Baso # (Auto) (units ( unknown) date) unknown) (unknown) (no (unknown) (unknown) Baso % (Auto) 0.3 (units (unknown) date) unknown) (unknown) (no (unknown) (unknown) Baso % (Auto) 0.8 (units (unknown) date) unknown) (unknown) (no (unknown) (unknown) Baso % (Auto) (units ( unknown) date) unknown) (unknown) (no (unknown) (unknown) Blood Pressure (units (unknown) date) 123/48 L unknown) (unknown) (no (unknown) (unknown) CK-MB (CK-2) Rel (units (unknown) date) Index TNP unknown) (unknown) (no (unknown) (unknown) CK-MB (CK-2) Rel (units (unknown) date) Index unknown) (unknown) (no (unknown) (unknown) CK-MB (CK-2) TNP (units (unknown) date) unknown) (unknown) (no (unknown) (unknown) CK-MB (CK-2) (units (u nknown) date) unknown) (unknown) (no (unknown) (unknown) CODE: Full (units (unk nown) date) unknown) (unknown) (no (unknown) (unknown) CV: regular rate (units (unknown) date) and rhythm, no unknown) murmurs (unknown) (no (unknown) (unknown) Calcium 8.7 (units (un known) date) unknown) (unknown) (no (unknown) (unknown) Calcium 8.8 (units (un known) date) unknown) (unknown) (no (unknown) (unknown) Calcium (units (unkno wn) date) unknown) (unknown) (no (unknown) (unknown) Carbon Dioxide 26 (units (unknown) date) unknown) (unknown) (no (unknown) (unknown) Carbon Dioxide 27 (units (unknown) date) unknown) (unknown) (no (unknown) (unknown) Carbon Dioxide (units (unknown) date) unknown) (unknown) (no (unknown) (unknown) Chloride 101 (units (u nknown) date) unknown) (unknown) (no (unknown) (unknown) Chloride (units (unkno wn) date) unknown) (unknown) (no (unknown) (unknown) Creatinine 1.00 (units (unknown) date) unknown) (unknown) (no (unknown) (unknown) Creatinine 1.07 H (units (unknown) date) unknown) (unknown) (no (unknown) (unknown) Creatinine (units (unk nown) date) unknown) (unknown) (no (unknown) (unknown) Critical Care (units ( unknown) date) time: unknown) (unknown) (no (unknown) (unknown) : 1950 (units (unknown) date) Acct:[id number] unknown) (unknown) (no (unknown) (unknown) Date Patient Seen: (units (unknown) date) 03/24/22 unknown) (unknown) (no (unknown) (unknown) Date of Service: (units (unknown) date) 03/23/22 unknown) (unknown) (no (unknown) (unknown) Deep Vein (units (unkn own) date) Thrombosis/Pulmonar unknown) y Embolism Present on Admission: No (unknown) (no (unknown) (unknown) EXT: warm and well (units (unknown) date) perfused, left leg unknown) tenderness (unknown) (no (unknown) (unknown) Eos # (Auto) 200 (units (unknown) date) unknown) (unknown) (no (unknown) (unknown) Eos # (Auto) 300 (units (unknown) date) unknown) (unknown) (no (unknown) (unknown) Eos # (Auto) (units (u nknown) date) unknown) (unknown) (no (unknown) (unknown) Eos % (Auto) 1.9 L (units (unknown) date) unknown) (unknown) (no (unknown) (unknown) Eos % (Auto) 2.9 (units (unknown) date) unknown) (unknown) (no (unknown) (unknown) Eos % (Auto) (units (u nknown) date) unknown) (unknown) (no (unknown) (unknown) Estimated GFR > 60 (units (unknown) date) unknown) (unknown) (no (unknown) (unknown) Estimated GFR 56 L (units (unknown) date) unknown) (unknown) (no (unknown) (unknown) Estimated GFR (units ( unknown) date) unknown) (unknown) (no (unknown) (unknown) Ethyl Alcohol < 10 (units (unknown) date) unknown) (unknown) (no (unknown) (unknown) Ethyl Alcohol (units ( unknown) date) unknown) (unknown) (no (unknown) (unknown) Exam Narrative: (units (unknown) date) unknown) (unknown) (no (unknown) (unknown) Exam (units (unkno wn) date) unknown) (unknown) (no (unknown) (unknown) Fibromyalgia (units (u nknown) date) unknown) (unknown) (no (unknown) (unknown) GEN: distress from (units (unknown) date) pain unknown) (unknown) (no (unknown) (unknown) Globulin 2.5 (units (u nknown) date) unknown) (unknown) (no (unknown) (unknown) Globulin (units (unkno wn) date) unknown) (unknown) (no (unknown) (unknown) Glucose 115 H (units ( unknown) date) unknown) (unknown) (no (unknown) (unknown) Glucose 120 H (units ( unknown) date) unknown) (unknown) (no (unknown) (unknown) Glucose (units (unkno wn) date) unknown) (unknown) (no (unknown) (unknown) HEENT: moist (units (u nknown) date) mucous membranes, unknown) PERRL (unknown) (no (unknown) (unknown) Hct 34.5 L (units (unk nown) date) unknown) (unknown) (no (unknown) (unknown) Hct 34.8 L (units (unk nown) date) unknown) (unknown) (no (unknown) (unknown) Hct (units (unkno wn) date) unknown) (unknown) (no (unknown) (unknown) Hgb 11.4 L (units (unk nown) date) unknown) (unknown) (no (unknown) (unknown) Hgb 11.5 L (units (unk nown) date) unknown) (unknown) (no (unknown) (unknown) Hgb (units (unkno wn) date) unknown) (unknown) (no (unknown) (unknown) Hypertension (units (u nknown) date) unknown) (unknown) (no (unknown) (unknown) Hypothyroidism (units (unknown) date) unknown) (unknown) (no (unknown) (unknown) I have utilized (units (unknown) date) all available unknown) resources to reconcile the patient's home (unknown) (no (unknown) (unknown) I spent a total of (units (unknown) date) [] minutes of unknown) critical care time on this patient's care (unknown) (no (unknown) (unknown) INR 1.2 (units (unkno wn) date) unknown) (unknown) (no (unknown) (unknown) INR (units (unkno wn) date) unknown) (unknown) (no (unknown) (unknown) Interval history: (units (unknown) date) unknown) (unknown) (no (unknown) (unknown) [facility] (units (unknown) date) [address] unknown) [place] [address] (unknown) (no (unknown) (unknown) Laboratory Results (units (unknown) date) - last 24 hr unknown) (unknown) (no (unknown) (unknown) Labs (units (unkno wn) date) unknown) (unknown) (no (unknown) (unknown) Labs: (units (unkno wn) date) unknown) (unknown) (no (unknown) (unknown) Lymph # (Auto) (units (unknown) date) 1100 unknown) (unknown) (no (unknown) (unknown) Lymph # (Auto) (units (unknown) date) 2000 unknown) (unknown) (no (unknown) (unknown) Lymph # (Auto) (units (unknown) date) unknown) (unknown) (no (unknown) (unknown) Lymph % (Auto) (units (unknown) date) 10.3 L unknown) (unknown) (no (unknown) (unknown) Lymph % (Auto) (units (unknown) date) 19.6 L unknown) (unknown) (no (unknown) (unknown) Lymph % (Auto) (units (unknown) date) unknown) (unknown) (no (unknown) (unknown) MCH 28.7 (units (unkno wn) date) unknown) (unknown) (no (unknown) (unknown) MCH 29.0 (units (unkno wn) date) unknown) (unknown) (no (unknown) (unknown) MCH (units (unkno wn) date) unknown) (unknown) (no (unknown) (unknown) MCHC 32.8 (units (unkn own) date) unknown) (unknown) (no (unknown) (unknown) MCHC 33.2 (units (unkn own) date) unknown) (unknown) (no (unknown) (unknown) MCHC (units (unkno wn) date) unknown) (unknown) (no (unknown) (unknown) MCV 87.4 (units (unkno wn) date) unknown) (unknown) (no (unknown) (unknown) MCV (units (unkno wn) date) unknown) (unknown) (no (unknown) (unknown) Magnesium 1.9 (units ( unknown) date) unknown) (unknown) (no (unknown) (unknown) Magnesium (units (unkn own) date) unknown) (unknown) (no (unknown) (unknown) Medical History (units (unknown) date) (Reviewed 03/23/22 unknown) @ 21:59 by Lincoln Valenzuela MD) (unknown) (no (unknown) (unknown) [place] # (Auto) 700 (units (unknown) date) unknown) (unknown) (no (unknown) (unknown) [place] # (Auto) 800 (units (unknown) date) unknown) (unknown) (no (unknown) (unknown) [place] # (Auto) (units ( unknown) date) unknown) (unknown) (no (unknown) (unknown) [place] % (Auto) 6.3 (units (unknown) date) unknown) (unknown) (no (unknown) (unknown) [place] % (Auto) 7.6 (units (unknown) date) unknown) (unknown) (no (unknown) (unknown) [place] % (Auto) (units ( unknown) date) unknown) (unknown) (no (unknown) (unknown) NECK: trachea (units ( unknown) date) midline, no JVD unknown) (unknown) (no (unknown) (unknown) NEURO: awake, (units ( unknown) date) alert, oriented, no unknown) focal deficits (unknown) (no (unknown) (unknown) Narrative (units (unkn own) date) unknown) (unknown) (no (unknown) (unknown) Neut # (Auto) 7300 (units (unknown) date) H unknown) (unknown) (no (unknown) (unknown) Neut # (Auto) 8500 (units (unknown) date) H unknown) (unknown) (no (unknown) (unknown) Neut # (Auto) (units ( unknown) date) unknown) (unknown) (no (unknown) (unknown) Neut % (Auto) 70.1 (units (unknown) date) unknown) (unknown) (no (unknown) (unknown) Neut % (Auto) 80.2 (units (unknown) date) H unknown) (unknown) (no (unknown) (unknown) Neut % (Auto) (units ( unknown) date) unknown) (unknown) (no (unknown) (unknown) No pertinent past (units (unknown) date) surgical history unknown) (unknown) (no (unknown) (unknown) Objective (units (unkn own) date) unknown) (unknown) (no (unknown) (unknown) Oxygen Delivery (units (unknown) date) Method Nasal unknown) Cannula (unknown) (no (unknown) (unknown) Oxygen Flow Rate 0 (units (unknown) date) unknown) (unknown) (no (unknown) (unknown) PFSH (units (unkno wn) date) unknown) (unknown) (no (unknown) (unknown) PT 14.2 H (units (unkn own) date) unknown) (unknown) (no (unknown) (unknown) PT (units (unkno wn) date) unknown) (unknown) (no (unknown) (unknown) PULM: coarse (units (u nknown) date) breath sounds unknown) (unknown) (no (unknown) (unknown) Patient has (units (un known) date) elevated risk for unknown) surgery with recent admission for NSTEMI at (unknown) (no (unknown) (unknown) Patient: (units (unkno wn) date) Elidia Rock unknown) MR#: [id number] (unknown) (no (unknown) (unknown) Plt Count 254 (units ( unknown) date) unknown) (unknown) (no (unknown) (unknown) Plt Count 290 (units ( unknown) date) unknown) (unknown) (no (unknown) (unknown) Plt Count (units (unkn own) date) unknown) (unknown) (no (unknown) (unknown) Potassium 3.7 (units ( unknown) date) unknown) (unknown) (no (unknown) (unknown) Potassium 4.0 (units ( unknown) date) unknown) (unknown) (no (unknown) (unknown) Potassium (units (unkn own) date) unknown) (unknown) (no (unknown) (unknown) Progress Note (units ( unknown) date) unknown) (unknown) (no (unknown) (unknown) Provider: (units (unkn own) date) Lincoln Valenzuela MD unknown) (unknown) (no (unknown) (unknown) Proxy: [place] (units (unknown) date) [place] unknown) partner (unknown) (no (unknown) (unknown) Pulse Oximetry 91 (units (unknown) date) unknown) (unknown) (no (unknown) (unknown) Pulse Rate 77 (units ( unknown) date) unknown) (unknown) (no (unknown) (unknown) Quality (units (unkno wn) date) unknown) (unknown) (no (unknown) (unknown) RBC 3.95 L (units (unk nown) date) unknown) (unknown) (no (unknown) (unknown) RBC 3.98 L (units (unk nown) date) unknown) (unknown) (no (unknown) (unknown) RBC (units (unkno wn) date) unknown) (unknown) (no (unknown) (unknown) RDW 14.3 (units (unkno wn) date) unknown) (unknown) (no (unknown) (unknown) RDW (units (unkno wn) date) unknown) (unknown) (no (unknown) (unknown) Respiratory Rate (units (unknown) date) 17 unknown) (unknown) (no (unknown) (unknown) Restrictive lung (units (unknown) date) disease unknown) (unknown) (no (unknown) (unknown) Result Diagrams: (units (unknown) date) unknown) (unknown) (no (unknown) (unknown) SARS-CoV-2 (PCR) (units (unknown) date) Negative unknown) (unknown) (no (unknown) (unknown) SARS-CoV-2 (PCR) (units (unknown) date) unknown) (unknown) (no (unknown) (unknown) She continues to (units (unknown) date) have back pain. She unknown) is still short of breath. (unknown) (no (unknown) (unknown) Signed (units (unkno wn) date) By:<Electronically unknown) signed by Lincoln Valenzuela MD> (unknown) (no (unknown) (unknown) Smoking Status: (units (unknown) date) Former smoker unknown) (unknown) (no (unknown) (unknown) Social History (units (unknown) date) (Reviewed 03/23/22 unknown) @ 16:07 by Liam Colón MD) (unknown) (no (unknown) (unknown) Sodium 135 L (units (u nknown) date) unknown) (unknown) (no (unknown) (unknown) Sodium (units (unkno wn) date) unknown) (unknown) (no (unknown) (unknown) Subjective (units (unk nown) date) unknown) (unknown) (no (unknown) (unknown) Surgical History (units (unknown) date) (Reviewed 03/23/22 unknown) @ 21:59 by Lincoln Valenzuela MD) (unknown) (no (unknown) (unknown) Temperature 97.9 F (units (unknown) date) unknown) (unknown) (no (unknown) (unknown) Time Patient Seen: (units (unknown) date) 06:00 unknown) (unknown) (no (unknown) (unknown) Time Spent With (units (unknown) date) Patient unknown) (unknown) (no (unknown) (unknown) Total Bilirubin (units (unknown) date) 0.7 unknown) (unknown) (no (unknown) (unknown) Total Bilirubin (units (unknown) date) unknown) (unknown) (no (unknown) (unknown) Total Creatine (units (unknown) date) Kinase 88 unknown) (unknown) (no (unknown) (unknown) Total Creatine (units (unknown) date) Kinase unknown) (unknown) (no (unknown) (unknown) Total Protein 6.2 (units (unknown) date) L unknown) (unknown) (no (unknown) (unknown) Total Protein (units ( unknown) date) unknown) (unknown) (no (unknown) (unknown) Troponin I 0.041 H (units (unknown) date) unknown) (unknown) (no (unknown) (unknown) Troponin I 0.050 H (units (unknown) date) unknown) (unknown) (no (unknown) (unknown) Troponin I (units (unk nown) date) unknown) (unknown) (no (unknown) (unknown) U Benzodiazepines (units (unknown) date) Scrn Positive H unknown) (unknown) (no (unknown) (unknown) U Benzodiazepines (units (unknown) date) Scrn unknown) (unknown) (no (unknown) (unknown) U Marijuana (THC) (units (unknown) date) Screen Positive H unknown) (unknown) (no (unknown) (unknown) U Marijuana (THC) (units (unknown) date) Screen unknown) (unknown) (no (unknown) (unknown) U Methamphetamines (units (unknown) date) Scrn Positive H unknown) (unknown) (no (unknown) (unknown) U Methamphetamines (units (unknown) date) Scrn unknown) (unknown) (no (unknown) (unknown) U Opiates 300ng/mL (units (unknown) date) cut Negative unknown) (unknown) (no (unknown) (unknown) U Opiates 300ng/mL (units (unknown) date) cut unknown) (unknown) (no (unknown) (unknown) U Tricyclic (units (un known) date) Antidepress unknown) Negative (unknown) (no (unknown) (unknown) U Tricyclic (units (un known) date) Antidepress unknown) (unknown) (no (unknown) (unknown) Ur Amphetamines (units (unknown) date) Screen Positive H unknown) (unknown) (no (unknown) (unknown) Ur Amphetamines (units (unknown) date) Screen unknown) (unknown) (no (unknown) (unknown) Ur Barbiturates (units (unknown) date) Screen Negative unknown) (unknown) (no (unknown) (unknown) Ur Barbiturates (units (unknown) date) Screen unknown) (unknown) (no (unknown) (unknown) Ur MDMA Scrn (units (u nknown) date) (Ecstasy) Negative unknown) (unknown) (no (unknown) (unknown) Ur MDMA Scrn (units (u nknown) date) (Ecstasy) unknown) (unknown) (no (unknown) (unknown) Ur Oxycodone (units (u nknown) date) Screen Negative unknown) (unknown) (no (unknown) (unknown) Ur Oxycodone (units (u nknown) date) Screen unknown) (unknown) (no (unknown) (unknown) Ur Phencyclidine (units (unknown) date) Scrn Negative unknown) (unknown) (no (unknown) (unknown) Ur Phencyclidine (units (unknown) date) Scrn unknown) (unknown) (no (unknown) (unknown) Urine Cocaine (units ( unknown) date) Screen Negative unknown) (unknown) (no (unknown) (unknown) Urine Cocaine (units ( unknown) date) Screen unknown) (unknown) (no (unknown) (unknown) Urine Methadone (units (unknown) date) Screen Negative unknown) (unknown) (no (unknown) (unknown) Urine Methadone (units (unknown) date) Screen unknown) (unknown) (no (unknown) (unknown) VTE (units (unkno wn) date) unknown) (unknown) (no (unknown) (unknown) Vital Signs (units (un known) date) unknown) (unknown) (no (unknown) (unknown) WBC 10.4 (units (unkno wn) date) unknown) (unknown) (no (unknown) (unknown) WBC 10.6 (units (unkno wn) date) unknown) (unknown) (no (unknown) (unknown) WBC (units (unkno wn) date) unknown) (unknown) (no (unknown) (unknown) [place] in 2020. (units (unknown) date) She was ultimately unknown) discharged without workup due to bed (unknown) (no (unknown) (unknown) [Embedded Image (units (unknown) date) Not Available] unknown) (unknown) (no (unknown) (unknown) alcohol intake: (units (unknown) date) current unknown) (unknown) (no (unknown) (unknown) aneurysm. Her (units ( unknown) date) blood pressure unknown) should be closely controlled in surgery to prevent (unknown) (no (unknown) (unknown) household members: (units (unknown) date) significant other unknown) (unknown) (no (unknown) (unknown) hypertension. (units ( unknown) date) unknown) (unknown) (no (unknown) (unknown) medications (units (un known) date) unknown) (unknown) (no (unknown) (unknown) shortage and (units (u nknown) date) prolonged ED stay. unknown) She also has a untreated large thoracic aortic (unknown) (no (unknown) (unknown) substance use (units ( unknown) date) type: does not use unknown) (unknown) (no (unknown) (unknown) today; this time (units (unknown) date) is exclusive of unknown) procedural time. Result panel 161 (unknown) (no (unknown) (unknown) (no value) (units (unk nown) date) unknown) (unknown) (no (unknown) (unknown) (past 8 hours): (units (unknown) date) unknown) (unknown) (no (unknown) (unknown) -CTA showed (units (un known) date) aneurysm of 6.4cm unknown) (unknown) (no (unknown) (unknown) -ECHO 09/2021 (units (u nknown) date) ascending aneurysm unknown) was 6cm (unknown) (no (unknown) (unknown) -ECHO shows EF (units (unknown) date) 60-65 unknown) (unknown) (no (unknown) (unknown) -IV pain (units (unkno wn) date) medications ordered unknown) (unknown) (no (unknown) (unknown) -PT/OT after (units (u nknown) date) surgery unknown) (unknown) (no (unknown) (unknown) -careful with (units ( unknown) date) fluid overload unknown) (unknown) (no (unknown) (unknown) -continue home (units (unknown) date) meds once unknown) reconciled (unknown) (no (unknown) (unknown) -did get lasix on (units (unknown) date) admit, with good unknown) urine output (unknown) (no (unknown) (unknown) -did require (units (u nknown) date) intermittent oxygen unknown) support (unknown) (no (unknown) (unknown) -has known history (units (unknown) date) of ILD, and recent unknown) cardiac medical issue per patient (unknown) (no (unknown) (unknown) -keep blood (units (un known) date) pressure controlled unknown) (unknown) (no (unknown) (unknown) -keep in bed until (units (unknown) date) surgery unknown) (unknown) (no (unknown) (unknown) -no chest pain or (units (unknown) date) EKG changes unknown) (unknown) (no (unknown) (unknown) -ortho consulted (units (unknown) date) and plan for unknown) surgery 03/24 (unknown) (no (unknown) (unknown) -she has been (units ( unknown) date) referred for follow unknown) up for this but this has not happened (unknown) (no (unknown) (unknown) -supplmental (units (u nknown) date) oxygen PRN unknown) (unknown) (no (unknown) (unknown) -suspect secondary (units (unknown) date) to cardiac demand unknown) (unknown) (no (unknown) (unknown) -suspect this may (units (unknown) date) be secondary to unknown) ILD, vs fluid overload (unknown) (no (unknown) (unknown) -trend troponins (units (unknown) date) unknown) (unknown) (no (unknown) (unknown) -troponin .050 but (units (unknown) date) now downtrending to unknown) .041 (unknown) (no (unknown) (unknown) -was at [facility] (units (unknown) date) recently, records unknown) showed possible NSTEMI at the end of February (unknown) (no (unknown) (unknown) 01:14 03/24/22 (units (unknown) date) unknown) (unknown) (no (unknown) (unknown) [id number] (units (unkno wn) date) unknown) (unknown) (no (unknown) (unknown) 04:49 04:49 04:49 (units (unknown) date) unknown) (unknown) (no (unknown) (unknown) 08:04 (units (unkno wn) date) unknown) (unknown) (no (unknown) (unknown) 1. Left hip (units (un known) date) fracture unknown) (unknown) (no (unknown) (unknown) 03/23/22 03/23/22 (units (unknown) date) 03/23/22 unknown) (unknown) (no (unknown) (unknown) 03/24/22 04:49 (units (unknown) date) unknown) (unknown) (no (unknown) (unknown) 03/24/22 03/24/22 (units (unknown) date) 03/24/22 unknown) (unknown) (no (unknown) (unknown) 03/24/22 (units (unkno wn) date) unknown) (unknown) (no (unknown) (unknown) 16:12 16:12 16:12 (units (unknown) date) unknown) (unknown) (no (unknown) (unknown) 16:12 16:54 17:07 (units (unknown) date) unknown) (unknown) (no (unknown) (unknown) 2. Acute (units (unkno wn) date) respiratory unknown) distress (unknown) (no (unknown) (unknown) 3. Ascending (units (u nknown) date) aortic aneurysm unknown) (unknown) (no (unknown) (unknown) 4. Elevated (units (un known) date) troponin unknown) (unknown) (no (unknown) (unknown) 5. 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 (unknown) (no (unknown) (unknown) ABD: soft, (units (unk nown) date) nontender, unknown) nondistended, no organomegaly (unknown) (no (unknown) (unknown) ALT 30 (units (unkno wn) date) unknown) (unknown) (no (unknown) (unknown) ALT (units (unkno wn) date) unknown) (unknown) (no (unknown) (unknown) APTT 36 (units (unkno wn) date) unknown) (unknown) (no (unknown) (unknown) APTT (units (unkno wn) date) unknown) (unknown) (no (unknown) (unknown) AST 32 (units (unkno wn) date) unknown) (unknown) (no (unknown) (unknown) AST (units (unkno wn) date) unknown) (unknown) (no (unknown) (unknown) Age/Sex: 72 / F (units (unknown) date) unknown) (unknown) (no (unknown) (unknown) Albumin 3.7 (units (un known) date) unknown) (unknown) (no (unknown) (unknown) Albumin (units (unkno wn) date) unknown) (unknown) (no (unknown) (unknown) Albumin/Globulin (units (unknown) date) Ratio 1.5 unknown) (unknown) (no (unknown) (unknown) Albumin/Globulin (units (unknown) date) Ratio unknown) (unknown) (no (unknown) (unknown) Alkaline (units (unkno wn) date) Phosphatase 88 unknown) (unknown) (no (unknown) (unknown) Alkaline (units (unkno wn) date) Phosphatase unknown) (unknown) (no (unknown) (unknown) Assessment + Plan (units (unknown) date) narrative: unknown) (unknown) (no (unknown) (unknown) Assessment + Plan (units (unknown) date) unknown) (unknown) (no (unknown) (unknown) BUN 22 H (units (unkno wn) date) unknown) (unknown) (no (unknown) (unknown) BUN 25 H (units (unkno wn) date) unknown) (unknown) (no (unknown) (unknown) BUN (units (unkno wn) date) unknown) (unknown) (no (unknown) (unknown) BUN/Creatinine (units (unknown) date) Ratio 20.6 unknown) (unknown) (no (unknown) (unknown) BUN/Creatinine (units (unknown) date) Ratio 25.0 H unknown) (unknown) (no (unknown) (unknown) BUN/Creatinine (units (unknown) date) Ratio unknown) (unknown) (no (unknown) (unknown) Baso # (Auto) 0 (units (unknown) date) unknown) (unknown) (no (unknown) (unknown) Baso # (Auto) 100 (units (unknown) date) unknown) (unknown) (no (unknown) (unknown) Baso # (Auto) (units ( unknown) date) unknown) (unknown) (no (unknown) (unknown) Baso % (Auto) 0.3 (units (unknown) date) unknown) (unknown) (no (unknown) (unknown) Baso % (Auto) 0.8 (units (unknown) date) unknown) (unknown) (no (unknown) (unknown) Baso % (Auto) (units ( unknown) date) unknown) (unknown) (no (unknown) (unknown) Blood Pressure (units (unknown) date) 123/48 L 119/55 L unknown) (unknown) (no (unknown) (unknown) CK-MB (CK-2) Rel (units (unknown) date) Index TNP unknown) (unknown) (no (unknown) (unknown) CK-MB (CK-2) Rel (units (unknown) date) Index unknown) (unknown) (no (unknown) (unknown) CK-MB (CK-2) TNP (units (unknown) date) unknown) (unknown) (no (unknown) (unknown) CK-MB (CK-2) (units (u nknown) date) unknown) (unknown) (no (unknown) (unknown) CODE: Full (units (unk nown) date) unknown) (unknown) (no (unknown) (unknown) CV: regular rate (units (unknown) date) and rhythm, no unknown) murmurs (unknown) (no (unknown) (unknown) Calcium 8.7 (units (un known) date) unknown) (unknown) (no (unknown) (unknown) Calcium 8.8 (units (un known) date) unknown) (unknown) (no (unknown) (unknown) Calcium (units (unkno wn) date) unknown) (unknown) (no (unknown) (unknown) Carbon Dioxide 26 (units (unknown) date) unknown) (unknown) (no (unknown) (unknown) Carbon Dioxide 27 (units (unknown) date) unknown) (unknown) (no (unknown) (unknown) Carbon Dioxide (units (unknown) date) unknown) (unknown) (no (unknown) (unknown) Chloride 101 (units (u nknown) date) unknown) (unknown) (no (unknown) (unknown) Chloride (units (unkno wn) date) unknown) (unknown) (no (unknown) (unknown) Creatinine 1.00 (units (unknown) date) unknown) (unknown) (no (unknown) (unknown) Creatinine 1.07 H (units (unknown) date) unknown) (unknown) (no (unknown) (unknown) Creatinine (units (unk nown) date) unknown) (unknown) (no (unknown) (unknown) Critical Care (units ( unknown) date) time: unknown) (unknown) (no (unknown) (unknown) : 1950 (units (unknown) date) Acct:[id number] unknown) (unknown) (no (unknown) (unknown) Date of Service: (units (unknown) date) 03/23/22 unknown) (unknown) (no (unknown) (unknown) Deep Vein (units (unkn own) date) Thrombosis/Pulmonar unknown) y Embolism Present on Admission: No (unknown) (no (unknown) (unknown) EXT: warm and well (units (unknown) date) perfused, left leg unknown) tenderness (unknown) (no (unknown) (unknown) Eos # (Auto) 200 (units (unknown) date) unknown) (unknown) (no (unknown) (unknown) Eos # (Auto) 300 (units (unknown) date) unknown) (unknown) (no (unknown) (unknown) Eos # (Auto) (units (u nknown) date) unknown) (unknown) (no (unknown) (unknown) Eos % (Auto) 1.9 L (units (unknown) date) unknown) (unknown) (no (unknown) (unknown) Eos % (Auto) 2.9 (units (unknown) date) unknown) (unknown) (no (unknown) (unknown) Eos % (Auto) (units (u nknown) date) unknown) (unknown) (no (unknown) (unknown) Estimated GFR > 60 (units (unknown) date) unknown) (unknown) (no (unknown) (unknown) Estimated GFR 56 L (units (unknown) date) unknown) (unknown) (no (unknown) (unknown) Estimated GFR (units ( unknown) date) unknown) (unknown) (no (unknown) (unknown) Ethyl Alcohol < 10 (units (unknown) date) unknown) (unknown) (no (unknown) (unknown) Ethyl Alcohol (units ( unknown) date) unknown) (unknown) (no (unknown) (unknown) Exam Narrative: (units (unknown) date) unknown) (unknown) (no (unknown) (unknown) Exam (units (unkno wn) date) unknown) (unknown) (no (unknown) (unknown) Fibromyalgia (units (u nknown) date) unknown) (unknown) (no (unknown) (unknown) GEN: distress from (units (unknown) date) pain unknown) (unknown) (no (unknown) (unknown) Globulin 2.5 (units (u nknown) date) unknown) (unknown) (no (unknown) (unknown) Globulin (units (unkno wn) date) unknown) (unknown) (no (unknown) (unknown) Glucose 115 H (units ( unknown) date) unknown) (unknown) (no (unknown) (unknown) Glucose 120 H (units ( unknown) date) unknown) (unknown) (no (unknown) (unknown) Glucose (units (unkno wn) date) unknown) (unknown) (no (unknown) (unknown) HEENT: moist (units (u nknown) date) mucous membranes, unknown) PERRL (unknown) (no (unknown) (unknown) Hct 34.5 L (units (unk nown) date) unknown) (unknown) (no (unknown) (unknown) Hct 34.8 L (units (unk nown) date) unknown) (unknown) (no (unknown) (unknown) Hct (units (unkno wn) date) unknown) (unknown) (no (unknown) (unknown) Hgb 11.4 L (units (unk nown) date) unknown) (unknown) (no (unknown) (unknown) Hgb 11.5 L (units (unk nown) date) unknown) (unknown) (no (unknown) (unknown) Hgb (units (unkno wn) date) unknown) (unknown) (no (unknown) (unknown) Hypertension (units (u nknown) date) unknown) (unknown) (no (unknown) (unknown) Hypothyroidism (units (unknown) date) unknown) (unknown) (no (unknown) (unknown) I have utilized (units (unknown) date) all available unknown) resources to reconcile the patient's home (unknown) (no (unknown) (unknown) I spent a total of (units (unknown) date) [] minutes of unknown) critical care time on this patient's care (unknown) (no (unknown) (unknown) INR 1.2 (units (unkno wn) date) unknown) (unknown) (no (unknown) (unknown) INR (units (unkno wn) date) unknown) (unknown) (no (unknown) (unknown) [facility] (units (unknown) date) [address] unknown) [place] [address] (unknown) (no (unknown) (unknown) Laboratory Results (units (unknown) date) - last 24 hr unknown) (unknown) (no (unknown) (unknown) Labs (units (unkno wn) date) unknown) (unknown) (no (unknown) (unknown) Labs: (units (unkno wn) date) unknown) (unknown) (no (unknown) (unknown) Lymph # (Auto) (units (unknown) date) 1100 unknown) (unknown) (no (unknown) (unknown) Lymph # (Auto) (units (unknown) date) 2000 unknown) (unknown) (no (unknown) (unknown) Lymph # (Auto) (units (unknown) date) unknown) (unknown) (no (unknown) (unknown) Lymph % (Auto) (units (unknown) date) 10.3 L unknown) (unknown) (no (unknown) (unknown) Lymph % (Auto) (units (unknown) date) 19.6 L unknown) (unknown) (no (unknown) (unknown) Lymph % (Auto) (units (unknown) date) unknown) (unknown) (no (unknown) (unknown) MCH 28.7 (units (unkno wn) date) unknown) (unknown) (no (unknown) (unknown) MCH 29.0 (units (unkno wn) date) unknown) (unknown) (no (unknown) (unknown) MCH (units (unkno wn) date) unknown) (unknown) (no (unknown) (unknown) MCHC 32.8 (units (unkn own) date) unknown) (unknown) (no (unknown) (unknown) MCHC 33.2 (units (unkn own) date) unknown) (unknown) (no (unknown) (unknown) MCHC (units (unkno wn) date) unknown) (unknown) (no (unknown) (unknown) MCV 87.4 (units (unkno wn) date) unknown) (unknown) (no (unknown) (unknown) MCV (units (unkno wn) date) unknown) (unknown) (no (unknown) (unknown) Magnesium 1.9 (units ( unknown) date) unknown) (unknown) (no (unknown) (unknown) Magnesium (units (unkn own) date) unknown) (unknown) (no (unknown) (unknown) Medical History (units (unknown) date) (Reviewed 03/23/22 unknown) @ 21:59 by Lincoln Valenzuela MD) (unknown) (no (unknown) (unknown) [place] # (Auto) 700 (units (unknown) date) unknown) (unknown) (no (unknown) (unknown) [place] # (Auto) 800 (units (unknown) date) unknown) (unknown) (no (unknown) (unknown) [place] # (Auto) (units ( unknown) date) unknown) (unknown) (no (unknown) (unknown) [place] % (Auto) 6.3 (units (unknown) date) unknown) (unknown) (no (unknown) (unknown) [place] % (Auto) 7.6 (units (unknown) date) unknown) (unknown) (no (unknown) (unknown) [place] % (Auto) (units ( unknown) date) unknown) (unknown) (no (unknown) (unknown) NECK: trachea (units ( unknown) date) midline, no JVD unknown) (unknown) (no (unknown) (unknown) NEURO: awake, (units ( unknown) date) alert, oriented, no unknown) focal deficits (unknown) (no (unknown) (unknown) Narrative (units (unkn own) date) unknown) (unknown) (no (unknown) (unknown) Neut # (Auto) 7300 (units (unknown) date) H unknown) (unknown) (no (unknown) (unknown) Neut # (Auto) 8500 (units (unknown) date) H unknown) (unknown) (no (unknown) (unknown) Neut # (Auto) (units ( unknown) date) unknown) (unknown) (no (unknown) (unknown) Neut % (Auto) 70.1 (units (unknown) date) unknown) (unknown) (no (unknown) (unknown) Neut % (Auto) 80.2 (units (unknown) date) H unknown) (unknown) (no (unknown) (unknown) Neut % (Auto) (units ( unknown) date) unknown) (unknown) (no (unknown) (unknown) No pertinent past (units (unknown) date) surgical history unknown) (unknown) (no (unknown) (unknown) Objective (units (unkn own) date) unknown) (unknown) (no (unknown) (unknown) Oxygen Delivery (units (unknown) date) Method Nasal unknown) Cannula (unknown) (no (unknown) (unknown) Oxygen Flow Rate 0 (units (unknown) date) 0 unknown) (unknown) (no (unknown) (unknown) Oxygen Flow Rate 0 (units (unknown) date) unknown) (unknown) (no (unknown) (unknown) PFSH (units (unkno wn) date) unknown) (unknown) (no (unknown) (unknown) PT 14.2 H (units (unkn own) date) unknown) (unknown) (no (unknown) (unknown) PT (units (unkno wn) date) unknown) (unknown) (no (unknown) (unknown) PULM: coarse (units (u nknown) date) breath sounds unknown) (unknown) (no (unknown) (unknown) Patient has (units (un known) date) elevated risk for unknown) surgery with recent admission for NSTEMI at (unknown) (no (unknown) (unknown) Patient: (units (unkno wn) date) Elidia Rock unknown) MR#: [id number] (unknown) (no (unknown) (unknown) Plt Count 254 (units ( unknown) date) unknown) (unknown) (no (unknown) (unknown) Plt Count 290 (units ( unknown) date) unknown) (unknown) (no (unknown) (unknown) Plt Count (units (unkn own) date) unknown) (unknown) (no (unknown) (unknown) Potassium 3.7 (units ( unknown) date) unknown) (unknown) (no (unknown) (unknown) Potassium 4.0 (units ( unknown) date) unknown) (unknown) (no (unknown) (unknown) Potassium (units (unkn own) date) unknown) (unknown) (no (unknown) (unknown) Progress Note (units ( unknown) date) unknown) (unknown) (no (unknown) (unknown) Provider: (units (unkn own) date) Heraclio Mckeon unknown) D.O. (unknown) (no (unknown) (unknown) Proxy: Heraclio (units (unknown) date) [place] unknown) partner (unknown) (no (unknown) (unknown) Pulse Oximetry 91 (units (unknown) date) 94 unknown) (unknown) (no (unknown) (unknown) Pulse Rate 77 77 (units (unknown) date) unknown) (unknown) (no (unknown) (unknown) Quality (units (unkno wn) date) unknown) (unknown) (no (unknown) (unknown) RBC 3.95 L (units (unk nown) date) unknown) (unknown) (no (unknown) (unknown) RBC 3.98 L (units (unk nown) date) unknown) (unknown) (no (unknown) (unknown) RBC (units (unkno wn) date) unknown) (unknown) (no (unknown) (unknown) RDW 14.3 (units (unkno wn) date) unknown) (unknown) (no (unknown) (unknown) RDW (units (unkno wn) date) unknown) (unknown) (no (unknown) (unknown) Respiratory Rate (units (unknown) date) 17 16 unknown) (unknown) (no (unknown) (unknown) Restrictive lung (units (unknown) date) disease unknown) (unknown) (no (unknown) (unknown) Result Diagrams: (units (unknown) date) unknown) (unknown) (no (unknown) (unknown) SARS-CoV-2 (PCR) (units (unknown) date) Negative unknown) (unknown) (no (unknown) (unknown) SARS-CoV-2 (PCR) (units (unknown) date) unknown) (unknown) (no (unknown) (unknown) Signed By: (units (unk nown) date) unknown) (unknown) (no (unknown) (unknown) Smoking Status: (units (unknown) date) Former smoker unknown) (unknown) (no (unknown) (unknown) Social History (units (unknown) date) (Reviewed 03/23/22 unknown) @ 16:07 by Liam Colón MD) (unknown) (no (unknown) (unknown) Sodium 135 L (units (u nknown) date) unknown) (unknown) (no (unknown) (unknown) Sodium (units (unkno wn) date) unknown) (unknown) (no (unknown) (unknown) Surgical History (units (unknown) date) (Reviewed 03/23/22 unknown) @ 21:59 by Lincoln Valenzuela MD) (unknown) (no (unknown) (unknown) Temperature 97.9 F (units (unknown) date) 98.6 F unknown) (unknown) (no (unknown) (unknown) Time Spent With (units (unknown) date) Patient unknown) (unknown) (no (unknown) (unknown) Total Bilirubin (units (unknown) date) 0.7 unknown) (unknown) (no (unknown) (unknown) Total Bilirubin (units (unknown) date) unknown) (unknown) (no (unknown) (unknown) Total Creatine (units (unknown) date) Kinase 88 unknown) (unknown) (no (unknown) (unknown) Total Creatine (units (unknown) date) Kinase unknown) (unknown) (no (unknown) (unknown) Total Protein 6.2 (units (unknown) date) L unknown) (unknown) (no (unknown) (unknown) Total Protein (units ( unknown) date) unknown) (unknown) (no (unknown) (unknown) Troponin I 0.041 H (units (unknown) date) unknown) (unknown) (no (unknown) (unknown) Troponin I 0.050 H (units (unknown) date) unknown) (unknown) (no (unknown) (unknown) Troponin I (units (unk nown) date) unknown) (unknown) (no (unknown) (unknown) U Benzodiazepines (units (unknown) date) Scrn Positive H unknown) (unknown) (no (unknown) (unknown) U Benzodiazepines (units (unknown) date) Scrn unknown) (unknown) (no (unknown) (unknown) U Marijuana (THC) (units (unknown) date) Screen Positive H unknown) (unknown) (no (unknown) (unknown) U Marijuana (THC) (units (unknown) date) Screen unknown) (unknown) (no (unknown) (unknown) U Methamphetamines (units (unknown) date) Scrn Positive H unknown) (unknown) (no (unknown) (unknown) U Methamphetamines (units (unknown) date) Scrn unknown) (unknown) (no (unknown) (unknown) U Opiates 300ng/mL (units (unknown) date) cut Negative unknown) (unknown) (no (unknown) (unknown) U Opiates 300ng/mL (units (unknown) date) cut unknown) (unknown) (no (unknown) (unknown) U Tricyclic (units (un known) date) Antidepress unknown) Negative (unknown) (no (unknown) (unknown) U Tricyclic (units (un known) date) Antidepress unknown) (unknown) (no (unknown) (unknown) Ur Amphetamines (units (unknown) date) Screen Positive H unknown) (unknown) (no (unknown) (unknown) Ur Amphetamines (units (unknown) date) Screen unknown) (unknown) (no (unknown) (unknown) Ur Barbiturates (units (unknown) date) Screen Negative unknown) (unknown) (no (unknown) (unknown) Ur Barbiturates (units (unknown) date) Screen unknown) (unknown) (no (unknown) (unknown) Ur MDMA Scrn (units (u nknown) date) (Ecstasy) Negative unknown) (unknown) (no (unknown) (unknown) Ur MDMA Scrn (units (u nknown) date) (Ecstasy) unknown) (unknown) (no (unknown) (unknown) Ur Oxycodone (units (u nknown) date) Screen Negative unknown) (unknown) (no (unknown) (unknown) Ur Oxycodone (units (u nknown) date) Screen unknown) (unknown) (no (unknown) (unknown) Ur Phencyclidine (units (unknown) date) Scrn Negative unknown) (unknown) (no (unknown) (unknown) Ur Phencyclidine (units (unknown) date) Scrn unknown) (unknown) (no (unknown) (unknown) Urine Cocaine (units ( unknown) date) Screen Negative unknown) (unknown) (no (unknown) (unknown) Urine Cocaine (units ( unknown) date) Screen unknown) (unknown) (no (unknown) (unknown) Urine Methadone (units (unknown) date) Screen Negative unknown) (unknown) (no (unknown) (unknown) Urine Methadone (units (unknown) date) Screen unknown) (unknown) (no (unknown) (unknown) VTE (units (unkno wn) date) unknown) (unknown) (no (unknown) (unknown) Vital Signs (units (un known) date) unknown) (unknown) (no (unknown) (unknown) WBC 10.4 (units (unkno wn) date) unknown) (unknown) (no (unknown) (unknown) WBC 10.6 (units (unkno wn) date) unknown) (unknown) (no (unknown) (unknown) WBC (units (unkno wn) date) unknown) (unknown) (no (unknown) (unknown) [place] in 2020. (units (unknown) date) She was ultimately unknown) discharged without workup due to bed (unknown) (no (unknown) (unknown) [Embedded Image (units (unknown) date) Not Available] unknown) (unknown) (no (unknown) (unknown) alcohol intake: (units (unknown) date) current unknown) (unknown) (no (unknown) (unknown) aneurysm. Her (units ( unknown) date) blood pressure unknown) should be closely controlled in surgery to prevent (unknown) (no (unknown) (unknown) household members: (units (unknown) date) significant other unknown) (unknown) (no (unknown) (unknown) hypertension. (units ( unknown) date) unknown) (unknown) (no (unknown) (unknown) medications (units (un known) date) unknown) (unknown) (no (unknown) (unknown) shortage and (units (u nknown) date) prolonged ED stay. unknown) She also has a untreated large thoracic aortic (unknown) (no (unknown) (unknown) substance use (units ( unknown) date) type: does not use unknown) (unknown) (no (unknown) (unknown) today; this time (units (unknown) date) is exclusive of unknown) procedural time. Result panel 162 (unknown) (no (unknown) (unknown) (no value) (units (unk nown) date) unknown) (unknown) (no (unknown) (unknown) (past 8 hours): (units (unknown) date) unknown) (unknown) (no (unknown) (unknown) -CTA showed (units (un known) date) aneurysm of 6.4cm unknown) (unknown) (no (unknown) (unknown) -ECHO 09/2021 (units (u nknown) date) ascending aneurysm unknown) was 6cm (unknown) (no (unknown) (unknown) -ECHO shows EF (units (unknown) date) 60-65 unknown) (unknown) (no (unknown) (unknown) -IV pain (units (unkno wn) date) medications ordered unknown) (unknown) (no (unknown) (unknown) -PT/OT after (units (u nknown) date) surgery unknown) (unknown) (no (unknown) (unknown) -careful with (units ( unknown) date) fluid overload unknown) (unknown) (no (unknown) (unknown) -continue home (units (unknown) date) meds once unknown) reconciled (unknown) (no (unknown) (unknown) -did get lasix on (units (unknown) date) admit, with good unknown) urine output (unknown) (no (unknown) (unknown) -did require (units (u nknown) date) intermittent oxygen unknown) support (unknown) (no (unknown) (unknown) -has known history (units (unknown) date) of ILD, and recent unknown) cardiac medical issue per patient (unknown) (no (unknown) (unknown) -keep blood (units (un known) date) pressure controlled unknown) (unknown) (no (unknown) (unknown) -keep in bed until (units (unknown) date) surgery unknown) (unknown) (no (unknown) (unknown) -no chest pain or (units (unknown) date) EKG changes unknown) (unknown) (no (unknown) (unknown) -ortho consulted (units (unknown) date) and plan for unknown) surgery 03/24 (unknown) (no (unknown) (unknown) -she has been (units ( unknown) date) referred for follow unknown) up for this but this has not happened (unknown) (no (unknown) (unknown) -supplmental (units (u nknown) date) oxygen PRN unknown) (unknown) (no (unknown) (unknown) -suspect secondary (units (unknown) date) to cardiac demand unknown) (unknown) (no (unknown) (unknown) -suspect this may (units (unknown) date) be secondary to unknown) ILD, vs fluid overload (unknown) (no (unknown) (unknown) -trend troponins (units (unknown) date) unknown) (unknown) (no (unknown) (unknown) -troponin .050 but (units (unknown) date) now downtrending to unknown) .041 (unknown) (no (unknown) (unknown) -was at [facility] (units (unknown) date) recently, records unknown) showed possible NSTEMI at the end of February (unknown) (no (unknown) (unknown) 01:14 03/24/22 (units (unknown) date) unknown) (unknown) (no (unknown) (unknown) [id number] (units (unkno wn) date) unknown) (unknown) (no (unknown) (unknown) 04:49 04:49 04:49 (units (unknown) date) unknown) (unknown) (no (unknown) (unknown) 08:04 (units (unkno wn) date) unknown) (unknown) (no (unknown) (unknown) 1. Left hip (units (un known) date) fracture unknown) (unknown) (no (unknown) (unknown) 03/23/22 03/23/22 (units (unknown) date) 03/23/22 unknown) (unknown) (no (unknown) (unknown) 03/24/22 04:49 (units (unknown) date) unknown) (unknown) (no (unknown) (unknown) 03/24/22 03/24/22 (units (unknown) date) 03/24/22 unknown) (unknown) (no (unknown) (unknown) 03/24/22 (units (unkno wn) date) unknown) (unknown) (no (unknown) (unknown) 16:12 16:12 16:12 (units (unknown) date) unknown) (unknown) (no (unknown) (unknown) 16:12 16:54 17:07 (units (unknown) date) unknown) (unknown) (no (unknown) (unknown) 2. Acute (units (unkno wn) date) respiratory unknown) distress (unknown) (no (unknown) (unknown) 3. Ascending (units (u nknown) date) aortic aneurysm unknown) (unknown) (no (unknown) (unknown) 4. Elevated (units (un known) date) troponin unknown) (unknown) (no (unknown) (unknown) 5. 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 (unknown) (no (unknown) (unknown) ABD: soft, (units (unk nown) date) nontender, unknown) nondistended, no organomegaly (unknown) (no (unknown) (unknown) ALT 30 (units (unkno wn) date) unknown) (unknown) (no (unknown) (unknown) ALT (units (unkno wn) date) unknown) (unknown) (no (unknown) (unknown) APTT 36 (units (unkno wn) date) unknown) (unknown) (no (unknown) (unknown) APTT (units (unkno wn) date) unknown) (unknown) (no (unknown) (unknown) AST 32 (units (unkno wn) date) unknown) (unknown) (no (unknown) (unknown) AST (units (unkno wn) date) unknown) (unknown) (no (unknown) (unknown) Age/Sex: 72 / F (units (unknown) date) unknown) (unknown) (no (unknown) (unknown) Albumin 3.7 (units (un known) date) unknown) (unknown) (no (unknown) (unknown) Albumin (units (unkno wn) date) unknown) (unknown) (no (unknown) (unknown) Albumin/Globulin (units (unknown) date) Ratio 1.5 unknown) (unknown) (no (unknown) (unknown) Albumin/Globulin (units (unknown) date) Ratio unknown) (unknown) (no (unknown) (unknown) Alkaline (units (unkno wn) date) Phosphatase 88 unknown) (unknown) (no (unknown) (unknown) Alkaline (units (unkno wn) date) Phosphatase unknown) (unknown) (no (unknown) (unknown) Assessment + Plan (units (unknown) date) narrative: unknown) (unknown) (no (unknown) (unknown) Assessment + Plan (units (unknown) date) unknown) (unknown) (no (unknown) (unknown) BUN 22 H (units (unkno wn) date) unknown) (unknown) (no (unknown) (unknown) BUN 25 H (units (unkno wn) date) unknown) (unknown) (no (unknown) (unknown) BUN (units (unkno wn) date) unknown) (unknown) (no (unknown) (unknown) BUN/Creatinine (units (unknown) date) Ratio 20.6 unknown) (unknown) (no (unknown) (unknown) BUN/Creatinine (units (unknown) date) Ratio 25.0 H unknown) (unknown) (no (unknown) (unknown) BUN/Creatinine (units (unknown) date) Ratio unknown) (unknown) (no (unknown) (unknown) Baso # (Auto) 0 (units (unknown) date) unknown) (unknown) (no (unknown) (unknown) Baso # (Auto) 100 (units (unknown) date) unknown) (unknown) (no (unknown) (unknown) Baso # (Auto) (units ( unknown) date) unknown) (unknown) (no (unknown) (unknown) Baso % (Auto) 0.3 (units (unknown) date) unknown) (unknown) (no (unknown) (unknown) Baso % (Auto) 0.8 (units (unknown) date) unknown) (unknown) (no (unknown) (unknown) Baso % (Auto) (units ( unknown) date) unknown) (unknown) (no (unknown) (unknown) Blood Pressure (units (unknown) date) 123/48 L 119/55 L unknown) (unknown) (no (unknown) (unknown) CK-MB (CK-2) Rel (units (unknown) date) Index TNP unknown) (unknown) (no (unknown) (unknown) CK-MB (CK-2) Rel (units (unknown) date) Index unknown) (unknown) (no (unknown) (unknown) CK-MB (CK-2) TNP (units (unknown) date) unknown) (unknown) (no (unknown) (unknown) CK-MB (CK-2) (units (u nknown) date) unknown) (unknown) (no (unknown) (unknown) CODE: Full (units (unk nown) date) unknown) (unknown) (no (unknown) (unknown) CV: regular rate (units (unknown) date) and rhythm, no unknown) murmurs (unknown) (no (unknown) (unknown) Calcium 8.7 (units (un known) date) unknown) (unknown) (no (unknown) (unknown) Calcium 8.8 (units (un known) date) unknown) (unknown) (no (unknown) (unknown) Calcium (units (unkno wn) date) unknown) (unknown) (no (unknown) (unknown) Carbon Dioxide 26 (units (unknown) date) unknown) (unknown) (no (unknown) (unknown) Carbon Dioxide 27 (units (unknown) date) unknown) (unknown) (no (unknown) (unknown) Carbon Dioxide (units (unknown) date) unknown) (unknown) (no (unknown) (unknown) Chloride 101 (units (u nknown) date) unknown) (unknown) (no (unknown) (unknown) Chloride (units (unkno wn) date) unknown) (unknown) (no (unknown) (unknown) Creatinine 1.00 (units (unknown) date) unknown) (unknown) (no (unknown) (unknown) Creatinine 1.07 H (units (unknown) date) unknown) (unknown) (no (unknown) (unknown) Creatinine (units (unk nown) date) unknown) (unknown) (no (unknown) (unknown) Critical Care (units ( unknown) date) time: unknown) (unknown) (no (unknown) (unknown) : 1950 (units (unknown) date) Acct:[id number] unknown) (unknown) (no (unknown) (unknown) Date of Service: (units (unknown) date) 03/23/22 unknown) (unknown) (no (unknown) (unknown) Deep Vein (units (unkn own) date) Thrombosis/Pulmonar unknown) y Embolism Present on Admission: No (unknown) (no (unknown) (unknown) EXT: warm and well (units (unknown) date) perfused, left leg unknown) tenderness (unknown) (no (unknown) (unknown) Eos # (Auto) 200 (units (unknown) date) unknown) (unknown) (no (unknown) (unknown) Eos # (Auto) 300 (units (unknown) date) unknown) (unknown) (no (unknown) (unknown) Eos # (Auto) (units (u nknown) date) unknown) (unknown) (no (unknown) (unknown) Eos % (Auto) 1.9 L (units (unknown) date) unknown) (unknown) (no (unknown) (unknown) Eos % (Auto) 2.9 (units (unknown) date) unknown) (unknown) (no (unknown) (unknown) Eos % (Auto) (units (u nknown) date) unknown) (unknown) (no (unknown) (unknown) Estimated GFR > 60 (units (unknown) date) unknown) (unknown) (no (unknown) (unknown) Estimated GFR 56 L (units (unknown) date) unknown) (unknown) (no (unknown) (unknown) Estimated GFR (units ( unknown) date) unknown) (unknown) (no (unknown) (unknown) Ethyl Alcohol < 10 (units (unknown) date) unknown) (unknown) (no (unknown) (unknown) Ethyl Alcohol (units ( unknown) date) unknown) (unknown) (no (unknown) (unknown) Exam Narrative: (units (unknown) date) unknown) (unknown) (no (unknown) (unknown) Exam (units (unkno wn) date) unknown) (unknown) (no (unknown) (unknown) Fibromyalgia (units (u nknown) date) unknown) (unknown) (no (unknown) (unknown) GEN: distress from (units (unknown) date) pain unknown) (unknown) (no (unknown) (unknown) Globulin 2.5 (units (u nknown) date) unknown) (unknown) (no (unknown) (unknown) Globulin (units (unkno wn) date) unknown) (unknown) (no (unknown) (unknown) Glucose 115 H (units ( unknown) date) unknown) (unknown) (no (unknown) (unknown) Glucose 120 H (units ( unknown) date) unknown) (unknown) (no (unknown) (unknown) Glucose (units (unkno wn) date) unknown) (unknown) (no (unknown) (unknown) HEENT: moist (units (u nknown) date) mucous membranes, unknown) PERRL (unknown) (no (unknown) (unknown) Hct 34.5 L (units (unk nown) date) unknown) (unknown) (no (unknown) (unknown) Hct 34.8 L (units (unk nown) date) unknown) (unknown) (no (unknown) (unknown) Hct (units (unkno wn) date) unknown) (unknown) (no (unknown) (unknown) Hgb 11.4 L (units (unk nown) date) unknown) (unknown) (no (unknown) (unknown) Hgb 11.5 L (units (unk nown) date) unknown) (unknown) (no (unknown) (unknown) Hgb (units (unkno wn) date) unknown) (unknown) (no (unknown) (unknown) Hypertension (units (u nknown) date) unknown) (unknown) (no (unknown) (unknown) Hypothyroidism (units (unknown) date) unknown) (unknown) (no (unknown) (unknown) I have utilized (units (unknown) date) all available unknown) resources to reconcile the patient's home (unknown) (no (unknown) (unknown) I spent a total of (units (unknown) date) [] minutes of unknown) critical care time on this patient's care (unknown) (no (unknown) (unknown) INR 1.2 (units (unkno wn) date) unknown) (unknown) (no (unknown) (unknown) INR (units (unkno wn) date) unknown) (unknown) (no (unknown) (unknown) [facility] (units (unknown) date) [address] unknown) [place] [address] (unknown) (no (unknown) (unknown) Laboratory Results (units (unknown) date) - last 24 hr unknown) (unknown) (no (unknown) (unknown) Labs (units (unkno wn) date) unknown) (unknown) (no (unknown) (unknown) Labs: (units (unkno wn) date) unknown) (unknown) (no (unknown) (unknown) Lymph # (Auto) (units (unknown) date) 1100 unknown) (unknown) (no (unknown) (unknown) Lymph # (Auto) (units (unknown) date) 2000 unknown) (unknown) (no (unknown) (unknown) Lymph # (Auto) (units (unknown) date) unknown) (unknown) (no (unknown) (unknown) Lymph % (Auto) (units (unknown) date) 10.3 L unknown) (unknown) (no (unknown) (unknown) Lymph % (Auto) (units (unknown) date) 19.6 L unknown) (unknown) (no (unknown) (unknown) Lymph % (Auto) (units (unknown) date) unknown) (unknown) (no (unknown) (unknown) MCH 28.7 (units (unkno wn) date) unknown) (unknown) (no (unknown) (unknown) MCH 29.0 (units (unkno wn) date) unknown) (unknown) (no (unknown) (unknown) MCH (units (unkno wn) date) unknown) (unknown) (no (unknown) (unknown) MCHC 32.8 (units (unkn own) date) unknown) (unknown) (no (unknown) (unknown) MCHC 33.2 (units (unkn own) date) unknown) (unknown) (no (unknown) (unknown) MCHC (units (unkno wn) date) unknown) (unknown) (no (unknown) (unknown) MCV 87.4 (units (unkno wn) date) unknown) (unknown) (no (unknown) (unknown) MCV (units (unkno wn) date) unknown) (unknown) (no (unknown) (unknown) Magnesium 1.9 (units ( unknown) date) unknown) (unknown) (no (unknown) (unknown) Magnesium (units (unkn own) date) unknown) (unknown) (no (unknown) (unknown) Medical History (units (unknown) date) (Reviewed 03/23/22 unknown) @ 21:59 by Lincoln Valenzuela MD) (unknown) (no (unknown) (unknown) [place] # (Auto) 700 (units (unknown) date) unknown) (unknown) (no (unknown) (unknown) [place] # (Auto) 800 (units (unknown) date) unknown) (unknown) (no (unknown) (unknown) [place] # (Auto) (units ( unknown) date) unknown) (unknown) (no (unknown) (unknown) [place] % (Auto) 6.3 (units (unknown) date) unknown) (unknown) (no (unknown) (unknown) [place] % (Auto) 7.6 (units (unknown) date) unknown) (unknown) (no (unknown) (unknown) [place] % (Auto) (units ( unknown) date) unknown) (unknown) (no (unknown) (unknown) NECK: trachea (units ( unknown) date) midline, no JVD unknown) (unknown) (no (unknown) (unknown) NEURO: awake, (units ( unknown) date) alert, oriented, no unknown) focal deficits (unknown) (no (unknown) (unknown) Narrative (units (unkn own) date) unknown) (unknown) (no (unknown) (unknown) Neut # (Auto) 7300 (units (unknown) date) H unknown) (unknown) (no (unknown) (unknown) Neut # (Auto) 8500 (units (unknown) date) H unknown) (unknown) (no (unknown) (unknown) Neut # (Auto) (units ( unknown) date) unknown) (unknown) (no (unknown) (unknown) Neut % (Auto) 70.1 (units (unknown) date) unknown) (unknown) (no (unknown) (unknown) Neut % (Auto) 80.2 (units (unknown) date) H unknown) (unknown) (no (unknown) (unknown) Neut % (Auto) (units ( unknown) date) unknown) (unknown) (no (unknown) (unknown) No pertinent past (units (unknown) date) surgical history unknown) (unknown) (no (unknown) (unknown) Objective (units (unkn own) date) unknown) (unknown) (no (unknown) (unknown) Oxygen Delivery (units (unknown) date) Method Nasal unknown) Cannula (unknown) (no (unknown) (unknown) Oxygen Flow Rate 0 (units (unknown) date) 0 unknown) (unknown) (no (unknown) (unknown) Oxygen Flow Rate 0 (units (unknown) date) unknown) (unknown) (no (unknown) (unknown) PFSH (units (unkno wn) date) unknown) (unknown) (no (unknown) (unknown) PT 14.2 H (units (unkn own) date) unknown) (unknown) (no (unknown) (unknown) PT (units (unkno wn) date) unknown) (unknown) (no (unknown) (unknown) PULM: coarse (units (u nknown) date) breath sounds unknown) (unknown) (no (unknown) (unknown) Patient has (units (un known) date) elevated risk for unknown) surgery with recent admission for NSTEMI at (unknown) (no (unknown) (unknown) Patient: (units (unkno wn) date) Elidia Rock unknown) MR#: [id number] (unknown) (no (unknown) (unknown) Plt Count 254 (units ( unknown) date) unknown) (unknown) (no (unknown) (unknown) Plt Count 290 (units ( unknown) date) unknown) (unknown) (no (unknown) (unknown) Plt Count (units (unkn own) date) unknown) (unknown) (no (unknown) (unknown) Potassium 3.7 (units ( unknown) date) unknown) (unknown) (no (unknown) (unknown) Potassium 4.0 (units ( unknown) date) unknown) (unknown) (no (unknown) (unknown) Potassium (units (unkn own) date) unknown) (unknown) (no (unknown) (unknown) Progress Note (units ( unknown) date) unknown) (unknown) (no (unknown) (unknown) Provider: (units (unkn own) date) Heraclio Mckeon unknown) D.O. (unknown) (no (unknown) (unknown) Proxy: Heraclio (units (unknown) date) [place] unknown) partner (unknown) (no (unknown) (unknown) Pulse Oximetry 91 (units (unknown) date) 94 unknown) (unknown) (no (unknown) (unknown) Pulse Rate 77 77 (units (unknown) date) unknown) (unknown) (no (unknown) (unknown) Quality (units (unkno wn) date) unknown) (unknown) (no (unknown) (unknown) RBC 3.95 L (units (unk nown) date) unknown) (unknown) (no (unknown) (unknown) RBC 3.98 L (units (unk nown) date) unknown) (unknown) (no (unknown) (unknown) RBC (units (unkno wn) date) unknown) (unknown) (no (unknown) (unknown) RDW 14.3 (units (unkno wn) date) unknown) (unknown) (no (unknown) (unknown) RDW (units (unkno wn) date) unknown) (unknown) (no (unknown) (unknown) Respiratory Rate (units (unknown) date) 17 16 unknown) (unknown) (no (unknown) (unknown) Restrictive lung (units (unknown) date) disease unknown) (unknown) (no (unknown) (unknown) Result Diagrams: (units (unknown) date) unknown) (unknown) (no (unknown) (unknown) SARS-CoV-2 (PCR) (units (unknown) date) Negative unknown) (unknown) (no (unknown) (unknown) SARS-CoV-2 (PCR) (units (unknown) date) unknown) (unknown) (no (unknown) (unknown) Signed By: (units (unk nown) date) unknown) (unknown) (no (unknown) (unknown) Smoking Status: (units (unknown) date) Former smoker unknown) (unknown) (no (unknown) (unknown) Social History (units (unknown) date) (Reviewed 03/23/22 unknown) @ 16:07 by Liam Colón MD) (unknown) (no (unknown) (unknown) Sodium 135 L (units (u nknown) date) unknown) (unknown) (no (unknown) (unknown) Sodium (units (unkno wn) date) unknown) (unknown) (no (unknown) (unknown) Surgical History (units (unknown) date) (Reviewed 03/23/22 unknown) @ 21:59 by Lincoln Valenzuela MD) (unknown) (no (unknown) (unknown) Temperature 97.9 F (units (unknown) date) 98.6 F unknown) (unknown) (no (unknown) (unknown) Time Spent With (units (unknown) date) Patient unknown) (unknown) (no (unknown) (unknown) Total Bilirubin (units (unknown) date) 0.7 unknown) (unknown) (no (unknown) (unknown) Total Bilirubin (units (unknown) date) unknown) (unknown) (no (unknown) (unknown) Total Creatine (units (unknown) date) Kinase 88 unknown) (unknown) (no (unknown) (unknown) Total Creatine (units (unknown) date) Kinase unknown) (unknown) (no (unknown) (unknown) Total Protein 6.2 (units (unknown) date) L unknown) (unknown) (no (unknown) (unknown) Total Protein (units ( unknown) date) unknown) (unknown) (no (unknown) (unknown) Troponin I 0.041 H (units (unknown) date) unknown) (unknown) (no (unknown) (unknown) Troponin I 0.050 H (units (unknown) date) unknown) (unknown) (no (unknown) (unknown) Troponin I (units (unk nown) date) unknown) (unknown) (no (unknown) (unknown) U Benzodiazepines (units (unknown) date) Scrn Positive H unknown) (unknown) (no (unknown) (unknown) U Benzodiazepines (units (unknown) date) Scrn unknown) (unknown) (no (unknown) (unknown) U Marijuana (THC) (units (unknown) date) Screen Positive H unknown) (unknown) (no (unknown) (unknown) U Marijuana (THC) (units (unknown) date) Screen unknown) (unknown) (no (unknown) (unknown) U Methamphetamines (units (unknown) date) Scrn Positive H unknown) (unknown) (no (unknown) (unknown) U Methamphetamines (units (unknown) date) Scrn unknown) (unknown) (no (unknown) (unknown) U Opiates 300ng/mL (units (unknown) date) cut Negative unknown) (unknown) (no (unknown) (unknown) U Opiates 300ng/mL (units (unknown) date) cut unknown) (unknown) (no (unknown) (unknown) U Tricyclic (units (un known) date) Antidepress unknown) Negative (unknown) (no (unknown) (unknown) U Tricyclic (units (un known) date) Antidepress unknown) (unknown) (no (unknown) (unknown) Ur Amphetamines (units (unknown) date) Screen Positive H unknown) (unknown) (no (unknown) (unknown) Ur Amphetamines (units (unknown) date) Screen unknown) (unknown) (no (unknown) (unknown) Ur Barbiturates (units (unknown) date) Screen Negative unknown) (unknown) (no (unknown) (unknown) Ur Barbiturates (units (unknown) date) Screen unknown) (unknown) (no (unknown) (unknown) Ur MDMA Scrn (units (u nknown) date) (Ecstasy) Negative unknown) (unknown) (no (unknown) (unknown) Ur MDMA Scrn (units (u nknown) date) (Ecstasy) unknown) (unknown) (no (unknown) (unknown) Ur Oxycodone (units (u nknown) date) Screen Negative unknown) (unknown) (no (unknown) (unknown) Ur Oxycodone (units (u nknown) date) Screen unknown) (unknown) (no (unknown) (unknown) Ur Phencyclidine (units (unknown) date) Scrn Negative unknown) (unknown) (no (unknown) (unknown) Ur Phencyclidine (units (unknown) date) Scrn unknown) (unknown) (no (unknown) (unknown) Urine Cocaine (units ( unknown) date) Screen Negative unknown) (unknown) (no (unknown) (unknown) Urine Cocaine (units ( unknown) date) Screen unknown) (unknown) (no (unknown) (unknown) Urine Methadone (units (unknown) date) Screen Negative unknown) (unknown) (no (unknown) (unknown) Urine Methadone (units (unknown) date) Screen unknown) (unknown) (no (unknown) (unknown) VTE (units (unkno wn) date) unknown) (unknown) (no (unknown) (unknown) Vital Signs (units (un known) date) unknown) (unknown) (no (unknown) (unknown) WBC 10.4 (units (unkno wn) date) unknown) (unknown) (no (unknown) (unknown) WBC 10.6 (units (unkno wn) date) unknown) (unknown) (no (unknown) (unknown) WBC (units (unkno wn) date) unknown) (unknown) (no (unknown) (unknown) [place] in 2020. (units (unknown) date) She was ultimately unknown) discharged without workup due to bed (unknown) (no (unknown) (unknown) [Embedded Image (units (unknown) date) Not Available] unknown) (unknown) (no (unknown) (unknown) alcohol intake: (units (unknown) date) current unknown) (unknown) (no (unknown) (unknown) aneurysm. Her (units ( unknown) date) blood pressure unknown) should be closely controlled in surgery to prevent (unknown) (no (unknown) (unknown) household members: (units (unknown) date) significant other unknown) (unknown) (no (unknown) (unknown) hypertension. (units ( unknown) date) unknown) (unknown) (no (unknown) (unknown) medications (units (un known) date) unknown) (unknown) (no (unknown) (unknown) shortage and (units (u nknown) date) prolonged ED stay. unknown) She also has a untreated large thoracic aortic (unknown) (no (unknown) (unknown) substance use (units ( unknown) date) type: does not use unknown) (unknown) (no (unknown) (unknown) today; this time (units (unknown) date) is exclusive of unknown) procedural time. Result panel 163 (unknown) (no (unknown) (unknown) (no value) (units (unk nown) date) unknown) (unknown) (no (unknown) (unknown) (Synthroid) (units (un known) date) unknown) (unknown) (no (unknown) (unknown) (past 8 hours): (units (unknown) date) unknown) (unknown) (no (unknown) (unknown) [id number] (units (unkno wn) date) unknown) (unknown) (no (unknown) (unknown) 04:49 04:49 04:49 (units (unknown) date) unknown) (unknown) (no (unknown) (unknown) 08:04 (units (unkno wn) date) unknown) (unknown) (no (unknown) (unknown) 03/23/22 03/23/22 (units (unknown) date) 03/23/22 unknown) (unknown) (no (unknown) (unknown) 03/23/22 History (units (unknown) date) unknown) (unknown) (no (unknown) (unknown) 03/24/22 04:49 (units (unknown) date) unknown) (unknown) (no (unknown) (unknown) 03/24/22 03/24/22 (units (unknown) date) 03/24/22 unknown) (unknown) (no (unknown) (unknown) 03/24/22 1211 (units ( unknown) date) unknown) (unknown) (no (unknown) (unknown) 03/24/22 (units (unkno wn) date) unknown) (unknown) (no (unknown) (unknown) 16:12 16:12 16:12 (units (unknown) date) unknown) (unknown) (no (unknown) (unknown) 16:12 16:54 17:07 (units (unknown) date) unknown) (unknown) (no (unknown) (unknown) ALT 30 (units (unkno wn) date) unknown) (unknown) (no (unknown) (unknown) ALT (units (unkno wn) date) unknown) (unknown) (no (unknown) (unknown) APTT 36 (units (unkno wn) date) unknown) (unknown) (no (unknown) (unknown) APTT (units (unkno wn) date) unknown) (unknown) (no (unknown) (unknown) AST 32 (units (unkno wn) date) unknown) (unknown) (no (unknown) (unknown) AST (units (unkno wn) date) unknown) (unknown) (no (unknown) (unknown) Age/Sex: 72 / F (units (unknown) date) unknown) (unknown) (no (unknown) (unknown) Albumin 3.7 (units (un known) date) unknown) (unknown) (no (unknown) (unknown) Albumin (units (unkno wn) date) unknown) (unknown) (no (unknown) (unknown) Albumin/Globulin (units (unknown) date) Ratio 1.5 unknown) (unknown) (no (unknown) (unknown) Albumin/Globulin (units (unknown) date) Ratio unknown) (unknown) (no (unknown) (unknown) Alkaline (units (unkno wn) date) Phosphatase 88 unknown) (unknown) (no (unknown) (unknown) Alkaline (units (unkno wn) date) Phosphatase unknown) (unknown) (no (unknown) (unknown) Allergies (units (unkn own) date) unknown) (unknown) (no (unknown) (unknown) Allergy/AdvReac (units (unknown) date) Type Severity unknown) Reaction Status Date / Time (unknown) (no (unknown) (unknown) Assessment + Plan (units (unknown) date) narrative: unknown) (unknown) (no (unknown) (unknown) Assessment + Plan (units (unknown) date) unknown) (unknown) (no (unknown) (unknown) Assessment: Left (units (unknown) date) femoral neck unknown) fracture (unknown) (no (unknown) (unknown) BUN 22 H (units (unkno wn) date) unknown) (unknown) (no (unknown) (unknown) BUN 25 H (units (unkno wn) date) unknown) (unknown) (no (unknown) (unknown) BUN (units (unkno wn) date) unknown) (unknown) (no (unknown) (unknown) BUN/Creatinine (units (unknown) date) Ratio 20.6 unknown) (unknown) (no (unknown) (unknown) BUN/Creatinine (units (unknown) date) Ratio 25.0 H unknown) (unknown) (no (unknown) (unknown) BUN/Creatinine (units (unknown) date) Ratio unknown) (unknown) (no (unknown) (unknown) Baso # (Auto) 0 (units (unknown) date) unknown) (unknown) (no (unknown) (unknown) Baso # (Auto) 100 (units (unknown) date) unknown) (unknown) (no (unknown) (unknown) Baso # (Auto) (units ( unknown) date) unknown) (unknown) (no (unknown) (unknown) Baso % (Auto) 0.3 (units (unknown) date) unknown) (unknown) (no (unknown) (unknown) Baso % (Auto) 0.8 (units (unknown) date) unknown) (unknown) (no (unknown) (unknown) Baso % (Auto) (units ( unknown) date) unknown) (unknown) (no (unknown) (unknown) Been Physically (units (unknown) date) Hurt or No unknown) (unknown) (no (unknown) (unknown) Blood Pressure (units (unknown) date) 119/55 L unknown) (unknown) (no (unknown) (unknown) CK-MB (CK-2) Rel (units (unknown) date) Index TNP unknown) (unknown) (no (unknown) (unknown) CK-MB (CK-2) Rel (units (unknown) date) Index unknown) (unknown) (no (unknown) (unknown) CK-MB (CK-2) TNP (units (unknown) date) unknown) (unknown) (no (unknown) (unknown) CK-MB (CK-2) (units (u nknown) date) unknown) (unknown) (no (unknown) (unknown) Calcium 8.7 (units (un known) date) unknown) (unknown) (no (unknown) (unknown) Calcium 8.8 (units (un known) date) unknown) (unknown) (no (unknown) (unknown) Calcium (units (unkno wn) date) unknown) (unknown) (no (unknown) (unknown) Carbon Dioxide 26 (units (unknown) date) unknown) (unknown) (no (unknown) (unknown) Carbon Dioxide 27 (units (unknown) date) unknown) (unknown) (no (unknown) (unknown) Carbon Dioxide (units (unknown) date) unknown) (unknown) (no (unknown) (unknown) Cardiovascular: (units (unknown) date) Warm and unknown) well-perfused extremities palpable pulses (unknown) (no (unknown) (unknown) Chief complaint: (units (unknown) date) hip pain unknown) (unknown) (no (unknown) (unknown) Chloride 101 (units (u nknown) date) unknown) (unknown) (no (unknown) (unknown) Chloride (units (unkno wn) date) unknown) (unknown) (no (unknown) (unknown) Creatinine 1.00 (units (unknown) date) unknown) (unknown) (no (unknown) (unknown) Creatinine 1.07 H (units (unknown) date) unknown) (unknown) (no (unknown) (unknown) Creatinine (units (unk nown) date) unknown) (unknown) (no (unknown) (unknown) Critical Care (units ( unknown) date) time: unknown) (unknown) (no (unknown) (unknown) : 1950 (units (unknown) date) Acct:[id number] unknown) (unknown) (no (unknown) (unknown) Date Patient Seen: (units (unknown) date) 03/24/22 unknown) (unknown) (no (unknown) (unknown) Date of Onset of (units (unknown) date) Symptoms: 03/23/22 unknown) (unknown) (no (unknown) (unknown) Date of Service: (units (unknown) date) 03/23/22 unknown) (unknown) (no (unknown) (unknown) Deep Vein (units (unkn own) date) Thrombosis/Pulmonar unknown) y Embolism Present on Admission: No (unknown) (no (unknown) (unknown) Environment (units (un known) date) unknown) (unknown) (no (unknown) (unknown) Eos # (Auto) 200 (units (unknown) date) unknown) (unknown) (no (unknown) (unknown) Eos # (Auto) 300 (units (unknown) date) unknown) (unknown) (no (unknown) (unknown) Eos # (Auto) (units (u nknown) date) unknown) (unknown) (no (unknown) (unknown) Eos % (Auto) 1.9 L (units (unknown) date) unknown) (unknown) (no (unknown) (unknown) Eos % (Auto) 2.9 (units (unknown) date) unknown) (unknown) (no (unknown) (unknown) Eos % (Auto) (units (u nknown) date) unknown) (unknown) (no (unknown) (unknown) Estimated GFR > 60 (units (unknown) date) unknown) (unknown) (no (unknown) (unknown) Estimated GFR 56 L (units (unknown) date) unknown) (unknown) (no (unknown) (unknown) Estimated GFR (units ( unknown) date) unknown) (unknown) (no (unknown) (unknown) Ethyl Alcohol < 10 (units (unknown) date) unknown) (unknown) (no (unknown) (unknown) Ethyl Alcohol (units ( unknown) date) unknown) (unknown) (no (unknown) (unknown) Exam Narrative: (units (unknown) date) unknown) (unknown) (no (unknown) (unknown) Exam (units (unkno wn) date) unknown) (unknown) (no (unknown) (unknown) Family + Social (units (unknown) date) History unknown) (unknown) (no (unknown) (unknown) Feels Safe in (units ( unknown) date) Current Yes unknown) (unknown) (no (unknown) (unknown) Fibromyalgia (units (u nknown) date) unknown) (unknown) (no (unknown) (unknown) Globulin 2.5 (units (u nknown) date) unknown) (unknown) (no (unknown) (unknown) Globulin (units (unkno wn) date) unknown) (unknown) (no (unknown) (unknown) Glucose 115 H (units ( unknown) date) unknown) (unknown) (no (unknown) (unknown) Glucose 120 H (units ( unknown) date) unknown) (unknown) (no (unknown) (unknown) Glucose (units (unkno wn) date) unknown) (unknown) (no (unknown) (unknown) HEENT: Head (units (un known) date) atraumatic eyes unknown) anicteric moist mucous membranes (unknown) (no (unknown) (unknown) Hct 34.5 L (units (unk nown) date) unknown) (unknown) (no (unknown) (unknown) Hct 34.8 L (units (unk nown) date) unknown) (unknown) (no (unknown) (unknown) Hct (units (unkno wn) date) unknown) (unknown) (no (unknown) (unknown) Hgb 11.4 L (units (unk nown) date) unknown) (unknown) (no (unknown) (unknown) Hgb 11.5 L (units (unk nown) date) unknown) (unknown) (no (unknown) (unknown) Hgb (units (unkno wn) date) unknown) (unknown) (no (unknown) (unknown) History + Physical (units (unknown) date) Report unknown) (unknown) (no (unknown) (unknown) History of Present (units (unknown) date) Illness unknown) (unknown) (no (unknown) (unknown) History (units (unkno wn) date) unknown) (unknown) (no (unknown) (unknown) Home Medications (units (unknown) date) and Allergies unknown) (unknown) (no (unknown) (unknown) Home Medications (units (unknown) date) unknown) (unknown) (no (unknown) (unknown) Hypertension (units (u nknown) date) unknown) (unknown) (no (unknown) (unknown) Hypothyroidism (units (unknown) date) unknown) (unknown) (no (unknown) (unknown) I spent a total of (units (unknown) date) [] minutes of unknown) critical care time on this patient's care (unknown) (no (unknown) (unknown) INR 1.2 (units (unkno wn) date) unknown) (unknown) (no (unknown) (unknown) INR (units (unkno wn) date) unknown) (unknown) (no (unknown) (unknown) [facility] (units (unknown) date) [address] unknown) [place] [address] (unknown) (no (unknown) (unknown) L2 through S2. (units (unknown) date) Palpable dorsalis unknown) pedis pulse with brisk capillary refill less (unknown) (no (unknown) (unknown) Laboratory Results (units (unknown) date) - last 24 hr unknown) (unknown) (no (unknown) (unknown) Labs (units (unkno wn) date) unknown) (unknown) (no (unknown) (unknown) Labs: (units (unkno wn) date) unknown) (unknown) (no (unknown) (unknown) Elidia is a (units (un known) date) 72-year-old female unknown) who sustained a ground level fall yesterday. She (unknown) (no (unknown) (unknown) Lymph # (Auto) (units (unknown) date) 1100 unknown) (unknown) (no (unknown) (unknown) Lymph # (Auto) (units (unknown) date) 2000 unknown) (unknown) (no (unknown) (unknown) Lymph # (Auto) (units (unknown) date) unknown) (unknown) (no (unknown) (unknown) Lymph % (Auto) (units (unknown) date) 10.3 L unknown) (unknown) (no (unknown) (unknown) Lymph % (Auto) (units (unknown) date) 19.6 L unknown) (unknown) (no (unknown) (unknown) Lymph % (Auto) (units (unknown) date) unknown) (unknown) (no (unknown) (unknown) MCH 28.7 (units (unkno wn) date) unknown) (unknown) (no (unknown) (unknown) MCH 29.0 (units (unkno wn) date) unknown) (unknown) (no (unknown) (unknown) MCH (units (unkno wn) date) unknown) (unknown) (no (unknown) (unknown) MCHC 32.8 (units (unkn own) date) unknown) (unknown) (no (unknown) (unknown) MCHC 33.2 (units (unkn own) date) unknown) (unknown) (no (unknown) (unknown) MCHC (units (unkno wn) date) unknown) (unknown) (no (unknown) (unknown) MCV 87.4 (units (unkno wn) date) unknown) (unknown) (no (unknown) (unknown) MCV (units (unkno wn) date) unknown) (unknown) (no (unknown) (unknown) Magnesium 1.9 (units ( unknown) date) unknown) (unknown) (no (unknown) (unknown) Magnesium (units (unkn own) date) unknown) (unknown) (no (unknown) (unknown) Medical History (units (unknown) date) (Reviewed 03/24/22 unknown) @ 12:05 by Hay Au MD) (unknown) (no (unknown) (unknown) Medication (units (unk nown) date) Instructions unknown) Recorded Confirmed Type (unknown) (no (unknown) (unknown) Meds (units (unkno wn) date) unknown) (unknown) (no (unknown) (unknown) [place] # (Auto) 700 (units (unknown) date) unknown) (unknown) (no (unknown) (unknown) [place] # (Auto) 800 (units (unknown) date) unknown) (unknown) (no (unknown) (unknown) [place] # (Auto) (units ( unknown) date) unknown) (unknown) (no (unknown) (unknown) [place] % (Auto) 6.3 (units (unknown) date) unknown) (unknown) (no (unknown) (unknown) [place] % (Auto) 7.6 (units (unknown) date) unknown) (unknown) (no (unknown) (unknown) [place] % (Auto) (units ( unknown) date) unknown) (unknown) (no (unknown) (unknown) Musculoskeletal: (units (unknown) date) Focused exam of the unknown) left lower extremity demonstrates leg held (unknown) (no (unknown) (unknown) Narrative (units (unkn own) date) unknown) (unknown) (no (unknown) (unknown) Narrative: (units (unk nown) date) unknown) (unknown) (no (unknown) (unknown) Neuro: No acute (units (unknown) date) deficits unknown) (unknown) (no (unknown) (unknown) Neut # (Auto) 7300 (units (unknown) date) H unknown) (unknown) (no (unknown) (unknown) Neut # (Auto) 8500 (units (unknown) date) H unknown) (unknown) (no (unknown) (unknown) Neut # (Auto) (units ( unknown) date) unknown) (unknown) (no (unknown) (unknown) Neut % (Auto) 70.1 (units (unknown) date) unknown) (unknown) (no (unknown) (unknown) Neut % (Auto) 80.2 (units (unknown) date) H unknown) (unknown) (no (unknown) (unknown) Neut % (Auto) (units ( unknown) date) unknown) (unknown) (no (unknown) (unknown) No pertinent past (units (unknown) date) surgical history unknown) (unknown) (no (unknown) (unknown) Objective (units (unkn own) date) unknown) (unknown) (no (unknown) (unknown) Oxygen Delivery (units (unknown) date) Method Nasal unknown) Cannula (unknown) (no (unknown) (unknown) Oxygen Flow Rate 0 (units (unknown) date) unknown) (unknown) (no (unknown) (unknown) PT 14.2 H (units (unkn own) date) unknown) (unknown) (no (unknown) (unknown) PT (units (unkno wn) date) unknown) (unknown) (no (unknown) (unknown) Patient History (units (unknown) date) unknown) (unknown) (no (unknown) (unknown) Patient: (units (unkno wn) date) Elidia Rock unknown) MR#: [id number] (unknown) (no (unknown) (unknown) Plan: Discussed (units (unknown) date) exam and imaging. unknown) Given the nature of the fracture, (unknown) (no (unknown) (unknown) Plt Count 254 (units ( unknown) date) unknown) (unknown) (no (unknown) (unknown) Plt Count 290 (units ( unknown) date) unknown) (unknown) (no (unknown) (unknown) Plt Count (units (unkn own) date) unknown) (unknown) (no (unknown) (unknown) Potassium 3.7 (units ( unknown) date) unknown) (unknown) (no (unknown) (unknown) Potassium 4.0 (units ( unknown) date) unknown) (unknown) (no (unknown) (unknown) Potassium (units (unkn own) date) unknown) (unknown) (no (unknown) (unknown) Prior Living (units (u nknown) date) Arrangements House unknown) (unknown) (no (unknown) (unknown) Provider: (units (unkn own) date) Hay Au MD unknown) (unknown) (no (unknown) (unknown) Psychiatric: (units (u nknown) date) Appropriate mood unknown) and affect (unknown) (no (unknown) (unknown) Pulse Oximetry 94 (units (unknown) date) unknown) (unknown) (no (unknown) (unknown) Pulse Rate 77 (units ( unknown) date) unknown) (unknown) (no (unknown) (unknown) Quality (units (unkno wn) date) unknown) (unknown) (no (unknown) (unknown) RBC 3.95 L (units (unk nown) date) unknown) (unknown) (no (unknown) (unknown) RBC 3.98 L (units (unk nown) date) unknown) (unknown) (no (unknown) (unknown) RBC (units (unkno wn) date) unknown) (unknown) (no (unknown) (unknown) RDW 14.3 (units (unkno wn) date) unknown) (unknown) (no (unknown) (unknown) RDW (units (unkno wn) date) unknown) (unknown) (no (unknown) (unknown) ROS: Yes All (units (u nknown) date) systems reviewed unknown) with the patient and are negative except as (unknown) (no (unknown) (unknown) Respiratory Rate (units (unknown) date) 16 unknown) (unknown) (no (unknown) (unknown) Respiratory: (units (u nknown) date) Breathing unknown) comfortably on room air (unknown) (no (unknown) (unknown) Restrictive lung (units (unknown) date) disease unknown) (unknown) (no (unknown) (unknown) Result Diagrams: (units (unknown) date) unknown) (unknown) (no (unknown) (unknown) Review of Systems (units (unknown) date) unknown) (unknown) (no (unknown) (unknown) SARS-CoV-2 (PCR) (units (unknown) date) Negative unknown) (unknown) (no (unknown) (unknown) SARS-CoV-2 (PCR) (units (unknown) date) unknown) (unknown) (no (unknown) (unknown) Safety + (units (unkno wn) date) Behavioral: unknown) (unknown) (no (unknown) (unknown) Score 4-6) (units (unk nown) date) unknown) (unknown) (no (unknown) (unknown) Signed (units (unkno wn) date) By:<Electronically unknown) signed by Hay Au MD> (unknown) (no (unknown) (unknown) Smoking Status (units (unknown) date) Former smoker unknown) (unknown) (no (unknown) (unknown) Social History: (units (unknown) date) unknown) (unknown) (no (unknown) (unknown) Sodium 135 L (units (u nknown) date) unknown) (unknown) (no (unknown) (unknown) Sodium (units (unkno wn) date) unknown) (unknown) (no (unknown) (unknown) Substance Use Type (units (unknown) date) marijuana,amphetami unknown) helen,opiates,methamp hetamine (unknown) (no (unknown) (unknown) Surgical History (units (unknown) date) (Reviewed 03/24/22 unknown) @ 12:05 by Hay Au MD) (unknown) (no (unknown) (unknown) Temperature 98.6 F (units (unknown) date) unknown) (unknown) (no (unknown) (unknown) Threatened By a (units (unknown) date) Person unknown) (unknown) (no (unknown) (unknown) Time Patient Seen: (units (unknown) date) 12:03 unknown) (unknown) (no (unknown) (unknown) Time Spent With (units (unknown) date) Patient unknown) (unknown) (no (unknown) (unknown) Tobacco + (units (unkn own) date) Substance use: unknown) (unknown) (no (unknown) (unknown) Tobacco type (units (u nknown) date) cigarettes unknown) (unknown) (no (unknown) (unknown) Total Bilirubin (units (unknown) date) 0.7 unknown) (unknown) (no (unknown) (unknown) Total Bilirubin (units (unknown) date) unknown) (unknown) (no (unknown) (unknown) Total Creatine (units (unknown) date) Kinase 88 unknown) (unknown) (no (unknown) (unknown) Total Creatine (units (unknown) date) Kinase unknown) (unknown) (no (unknown) (unknown) Total Protein 6.2 (units (unknown) date) L unknown) (unknown) (no (unknown) (unknown) Total Protein (units ( unknown) date) unknown) (unknown) (no (unknown) (unknown) Troponin I 0.041 H (units (unknown) date) unknown) (unknown) (no (unknown) (unknown) Troponin I 0.050 H (units (unknown) date) unknown) (unknown) (no (unknown) (unknown) Troponin I (units (unk nown) date) unknown) (unknown) (no (unknown) (unknown) U Benzodiazepines (units (unknown) date) Scrn Positive H unknown) (unknown) (no (unknown) (unknown) U Benzodiazepines (units (unknown) date) Scrn unknown) (unknown) (no (unknown) (unknown) U Marijuana (THC) (units (unknown) date) Screen Positive H unknown) (unknown) (no (unknown) (unknown) U Marijuana (THC) (units (unknown) date) Screen unknown) (unknown) (no (unknown) (unknown) U Methamphetamines (units (unknown) date) Scrn Positive H unknown) (unknown) (no (unknown) (unknown) U Methamphetamines (units (unknown) date) Scrn unknown) (unknown) (no (unknown) (unknown) U Opiates 300ng/mL (units (unknown) date) cut Negative unknown) (unknown) (no (unknown) (unknown) U Opiates 300ng/mL (units (unknown) date) cut unknown) (unknown) (no (unknown) (unknown) U Tricyclic (units (un known) date) Antidepress unknown) Negative (unknown) (no (unknown) (unknown) U Tricyclic (units (un known) date) Antidepress unknown) (unknown) (no (unknown) (unknown) Ur Amphetamines (units (unknown) date) Screen Positive H unknown) (unknown) (no (unknown) (unknown) Ur Amphetamines (units (unknown) date) Screen unknown) (unknown) (no (unknown) (unknown) Ur Barbiturates (units (unknown) date) Screen Negative unknown) (unknown) (no (unknown) (unknown) Ur Barbiturates (units (unknown) date) Screen unknown) (unknown) (no (unknown) (unknown) Ur MDMA Scrn (units (u nknown) date) (Ecstasy) Negative unknown) (unknown) (no (unknown) (unknown) Ur MDMA Scrn (units (u nknown) date) (Ecstasy) unknown) (unknown) (no (unknown) (unknown) Ur Oxycodone (units (u nknown) date) Screen Negative unknown) (unknown) (no (unknown) (unknown) Ur Oxycodone (units (u nknown) date) Screen unknown) (unknown) (no (unknown) (unknown) Ur Phencyclidine (units (unknown) date) Scrn Negative unknown) (unknown) (no (unknown) (unknown) Ur Phencyclidine (units (unknown) date) Scrn unknown) (unknown) (no (unknown) (unknown) Urine Cocaine (units ( unknown) date) Screen Negative unknown) (unknown) (no (unknown) (unknown) Urine Cocaine (units ( unknown) date) Screen unknown) (unknown) (no (unknown) (unknown) Urine Methadone (units (unknown) date) Screen Negative unknown) (unknown) (no (unknown) (unknown) Urine Methadone (units (unknown) date) Screen unknown) (unknown) (no (unknown) (unknown) VTE (units (unkno wn) date) unknown) (unknown) (no (unknown) (unknown) Vital Signs (units (un known) date) unknown) (unknown) (no (unknown) (unknown) WBC 10.4 (units (unkno wn) date) unknown) (unknown) (no (unknown) (unknown) WBC 10.6 (units (unkno wn) date) unknown) (unknown) (no (unknown) (unknown) WBC (units (unkno wn) date) unknown) (unknown) (no (unknown) (unknown) [Embedded Image (units (unknown) date) Not Available] unknown) (unknown) (no (unknown) (unknown) [From Septra] (units ( unknown) date) unknown) (unknown) (no (unknown) (unknown) adhesive tape (units ( unknown) date) AdvReac Verified unknown) 03/23/22 16:34 (unknown) (no (unknown) (unknown) alcohol intake (units (unknown) date) current unknown) (unknown) (no (unknown) (unknown) alcohol intake (units (unknown) date) frequency 0-2 unknown) drinks per day (unknown) (no (unknown) (unknown) also had a (units (unk nown) date) ultrasound which unknown) was negative. She has past medical history of (unknown) (no (unknown) (unknown) any other (units (unkn own) date) constitutional unknown) symptoms. (unknown) (no (unknown) (unknown) capsule,delayed (units (unknown) date) release (Nexium) unknown) (unknown) (no (unknown) (unknown) demonstrating a (units (unknown) date) left femoral neck unknown) fracture. Of note, she had a NSTEMI at the (unknown) (no (unknown) (unknown) discussed with her (units (unknown) date) including the risk unknown) of infection, damage to internal (unknown) (no (unknown) (unknown) end of February. (units (unknown) date) Currently her unknown) troponins are 0.05 and still trending down, she (unknown) (no (unknown) (unknown) esomeprazole (units (u nknown) date) magnesium 40 mg 40 unknown) mg PO QDAY ##0 11/29/12 03/23/22 History (unknown) (no (unknown) (unknown) extended release (units (unknown) date) 12 hr (Mucinex) unknown) (unknown) (no (unknown) (unknown) felt immediate (units (unknown) date) pain and was unable unknown) to bear weight on her left side. She was bro (unknown) (no (unknown) (unknown) fentanyl 75 mcg/hr (units (unknown) date) transdermal 75 mcg unknown) transdermal 3XD pain 03/23/22 03/23/22 (unknown) (no (unknown) (unknown) fibromyalgia and (units (unknown) date) has a fentanyl unknown) patch and has oxycodone at home. Her pain (unknown) (no (unknown) (unknown) fluoxetine 40 mg (units (unknown) date) capsule (Prozac) 40 unknown) mg PO 1 ##0 11/29/12 03/23/22 History (unknown) (no (unknown) (unknown) guaifenesin 600 mg (units (unknown) date) tablet, 600 mg PO unknown) BID PRN Cough 03/23/22 03/23/22 History (unknown) (no (unknown) (unknown) head. For this (units (unknown) date) reason I recommend unknown) a hemiarthroplasty. This will allow early (unknown) (no (unknown) (unknown) household members (units (unknown) date) significant other unknown) (unknown) (no (unknown) (unknown) in flexion and (units (unknown) date) external rotation. unknown) Distally sensation intact to light touch from (unknown) (no (unknown) (unknown) levothyroxine 125 (units (unknown) date) mcg tablet 100 mcg unknown) PO DAILY ##0 11/29/12 03/23/22 History (unknown) (no (unknown) (unknown) management is (units ( unknown) date) being done by her unknown) primary care doctor in [place]. She does live (unknown) (no (unknown) (unknown) meloxicam 7.5 mg (units (unknown) date) tablet (Mobic) 7.5 unknown) mg PO PRN PRN Muscle Pain ##0 11/29/12 (unknown) (no (unknown) (unknown) methocarbamol 500 (units (unknown) date) mg tablet 500 mg PO unknown) PRN PRN Pain (Scale 03/23/22 03/23/22 (unknown) (no (unknown) (unknown) nonoperative or (units (unknown) date) ORIF will likely unknown) result in avascular necrosis of the femoral (unknown) (no (unknown) (unknown) otherwise (units (unkn own) date) documented unknown) (unknown) (no (unknown) (unknown) oxycodone 5 mg (units (unknown) date) tablet (Roxicodone) unknown) 5 mg PO Q4P pain ##0 11/29/12 03/23/22 (unknown) (no (unknown) (unknown) patch (units (unkno wn) date) unknown) (unknown) (no (unknown) (unknown) risks and wished (units (unknown) date) to go forward with unknown) surgery. (unknown) (no (unknown) (unknown) stairs in her (units ( unknown) date) home. She denies unknown) any recent nausea, vomiting, fevers, chills or (unknown) (no (unknown) (unknown) structures, (units (un known) date) failure of surgery, unknown) failure of implants and need for further (unknown) (no (unknown) (unknown) sulfamethoxazole (units (unknown) date) Allergy Verified unknown) 03/23/22 16:34 (unknown) (no (unknown) (unknown) surgery. No (units (un known) date) guarantees were unknown) made regarding outcomes. She acknowledged the (unknown) (no (unknown) (unknown) than 2 seconds. (units (unknown) date) unknown) (unknown) (no (unknown) (unknown) today; this time (units (unknown) date) is exclusive of unknown) procedural time. (unknown) (no (unknown) (unknown) trimethoprim [From (units (unknown) date) Sept] Allergy unknown) Verified 03/23/22 16:34 (unknown) (no (unknown) (unknown) ught to [place] [facility]units ([facility]) date[facility] Department where imaging was obtained (unknown) (no (unknown) (unknown) weight-bearing and (units (unknown) date) pain control. The unknown) risks and benefits of surgery were (unknown) (no (unknown) (unknown) with her partner (units (unknown) date) who is able to take unknown) care of her and she does not have any Result panel 164 (unknown) (no (unknown) (unknown) (no value) (units (unk nown) date) unknown) (unknown) (no (unknown) (unknown) [id number] (units (unkno wn) date) unknown) (unknown) (no (unknown) (unknown) 03/24/222057 (units ( unknown) date) unknown) (unknown) (no (unknown) (unknown) Age/Sex: 72 / F (units (unknown) date) unknown) (unknown) (no (unknown) (unknown) Arterial Line (units ( unknown) date) unknown) (unknown) (no (unknown) (unknown) Complications: (units (unknown) date) none unknown) (unknown) (no (unknown) (unknown) : 1950 (units (unknown) date) Acct:[id number] unknown) (unknown) (no (unknown) (unknown) Date of Service: (units (unknown) date) 03/23/22 unknown) (unknown) (no (unknown) (unknown) Date of (units (unkno wn) date) procedure: unknown) 03/24/22 (unknown) (no (unknown) (unknown) Date/Time (units (unkn own) date) unknown) (unknown) (no (unknown) (unknown) [facility] (units (unknown) date) [address] unknown) [place] [address] (unknown) (no (unknown) (unknown) Patient (units (unkno wn) date) tolerated unknown) procedure: Well and No complications (unknown) (no (unknown) (unknown) Patient: (units (unkno wn) date) Elidia Rock unknown) MR#: [id number] (unknown) (no (unknown) (unknown) Post-Procedure: (units (unknown) date) dry sterile unknown) dressing placed (unknown) (no (unknown) (unknown) Procedure Note (units (unknown) date) unknown) (unknown) (no (unknown) (unknown) Procedures (units (unk nown) date) unknown) (unknown) (no (unknown) (unknown) Provider: (units (unkn own) date) Harish Blunt MD unknown) (unknown) (no (unknown) (unknown) Signed (units (unkno wn) date) By:<Electronicall unknown) y signed by Harish Blunt MD> (unknown) (no (unknown) (unknown) Site: right and (units (unknown) date) radial unknown) (unknown) (no (unknown) (unknown) Size (Gauge): 20 (units (unknown) date) unknown) (unknown) (no (unknown) (unknown) Technique used: (units (unknown) date) guide wire unknown) technique (unknown) (no (unknown) (unknown) Time of (units (unkno wn) date) procedure: 19:50 unknown) (unknown) (no (unknown) (unknown) Time out (units (unkno wn) date) performed: Yes unknown) Result panel 165 (unknown) (no (unknown) (unknown) (no value) (units (unk nown) date) unknown) (unknown) (no (unknown) (unknown) (without (units (unkno wn) date) compromising the unknown) technical results or length of the procedure) without (unknown) (no (unknown) (unknown) [id number] (units (unkno wn) date) unknown) (unknown) (no (unknown) (unknown) 1. Hip precautions (units (unknown) date) to remain in place. unknown) No flexion adduction and internal (unknown) (no (unknown) (unknown) 03/24/222149 (units ( unknown) date) unknown) (unknown) (no (unknown) (unknown) Age/Sex: 72 / F (units (unknown) date) unknown) (unknown) (no (unknown) (unknown) Anesthesia Type: (units (unknown) date) General unknown) (unknown) (no (unknown) (unknown) Materials Supervisor: Sis (units (unknown) date) Beh unknown) (unknown) (no (unknown) (unknown) Assisting (units (unkn own) date) participation: This unknown) operation could not have been safely performed (unknown) (no (unknown) (unknown) Blood products (units (unknown) date) transfused: none unknown) (unknown) (no (unknown) (unknown) Broaching was (units ( unknown) date) commenced. Trialing unknown) was then done and the hip was felt to be (unknown) (no (unknown) (unknown) Closure Type: (units ( unknown) date) primary unknown) (unknown) (no (unknown) (unknown) Complications: (units (unknown) date) none unknown) (unknown) (no (unknown) (unknown) Condition: stable (units (unknown) date) unknown) (unknown) (no (unknown) (unknown) : 1950 (units (unknown) date) Acct:[id number] unknown) (unknown) (no (unknown) (unknown) Date of Service: (units (unknown) date) 03/23/22 unknown) (unknown) (no (unknown) (unknown) Date of procedure: (units (unknown) date) 03/24/22 unknown) (unknown) (no (unknown) (unknown) Disposition: PACU (units (unknown) date) unknown) (unknown) (no (unknown) (unknown) Estimated Blood (units (unknown) date) Loss (mL): 50 unknown) (unknown) (no (unknown) (unknown) Findings: (units (unkn own) date) unknown) (unknown) (no (unknown) (unknown) Indication: This (units (unknown) date) is a 72 old female unknown) with a left femoral neck fracture. We (unknown) (no (unknown) (unknown) Indications: (units (u nknown) date) unknown) (unknown) (no (unknown) (unknown) [facility] (units (unknown) date) [address] unknown) [place] [address] (unknown) (no (unknown) (unknown) Left femoral neck (units (unknown) date) fracture as seen on unknown) imaging and under direct visualization (unknown) (no (unknown) (unknown) Left hip (units (unkno wn) date) hemiarthroplasty unknown) (unknown) (no (unknown) (unknown) Operative (units (unkn own) date) Date/Time/Diagnoses unknown) (unknown) (no (unknown) (unknown) Operative Note (units (unknown) date) unknown) (unknown) (no (unknown) (unknown) Operative Notes (units (unknown) date) unknown) (unknown) (no (unknown) (unknown) Patient tolerated (units (unknown) date) the procedure well unknown) without complications. (unknown) (no (unknown) (unknown) Patient was (units (un known) date) identified in the unknown) preoperative holding area. The correct left hip (unknown) (no (unknown) (unknown) Patient: (units (unkno wn) date) Elidia Rock unknown) MR#: [id number] (unknown) (no (unknown) (unknown) Plan for (units (unkno wn) date) aftercare: unknown) (unknown) (no (unknown) (unknown) Post-op diagnosis: (units (unknown) date) same unknown) (unknown) (no (unknown) (unknown) Post-operative (units (unknown) date) unknown) (unknown) (no (unknown) (unknown) Postop (units (unkno wn) date) instructions: unknown) Patient may weightbear as tolerated on postoperative day (unknown) (no (unknown) (unknown) Pre-op diagnosis: (units (unknown) date) Left femoral neck unknown) fracture (unknown) (no (unknown) (unknown) Procedure + (units (un known) date) Clinicians unknown) (unknown) (no (unknown) (unknown) Procedure in (units (u nknown) date) detail: unknown) (unknown) (no (unknown) (unknown) Procedure: (units (unk nown) date) unknown) (unknown) (no (unknown) (unknown) Prosthetic (units (unk nown) date) devices, grafts, unknown) tissues, transplants, or devices: (unknown) (no (unknown) (unknown) Provider: (units (unkn own) date) Hay Au MD unknown) (unknown) (no (unknown) (unknown) Same procedure as (units (unknown) date) scheduled: Yes unknown) (unknown) (no (unknown) (unknown) Signed (units (unkno wn) date) By:<Electronically unknown) signed by Hay Au MD> (unknown) (no (unknown) (unknown) Light and nephew (units (unknown) date) size 10 stem, unknown) cemented, size 41 unipolar head. Centralizer. (unknown) (no (unknown) (unknown) Specimen(s): none (units (unknown) date) sent unknown) (unknown) (no (unknown) (unknown) Surgeon: Hay (units (unknown) date) Roe unknown) (unknown) (no (unknown) (unknown) The left hip and (units (unknown) date) lower extremity unknown) were then prepped and draped in a standard (unknown) (no (unknown) (unknown) Time of procedure: (units (unknown) date) 21:46 unknown) (unknown) (no (unknown) (unknown) accepted all the (units (unknown) date) risks and expressed unknown) understanding and wished to go forward with (unknown) (no (unknown) (unknown) and benefits of (units (unknown) date) surgery were unknown) discussed in detail including the risk for (unknown) (no (unknown) (unknown) and the canal was (units (unknown) date) lavaged and dried. unknown) Cement was inserted and pressurized. The (unknown) (no (unknown) (unknown) and the capsule (units (unknown) date) and short external unknown) rotators were put on tension. They were then (unknown) (no (unknown) (unknown) anteversion from (units (unknown) date) the sauk-suiattle version. unknown) Retrialing was done and the final bipolar (unknown) (no (unknown) (unknown) brought to the (units (unknown) date) operating room. A unknown) surgical pause was done confirming the correct (unknown) (no (unknown) (unknown) completely dry. (units (unknown) date) Otherwise, the unknown) dressing will come off on at the 1st (unknown) (no (unknown) (unknown) cookie cutter and (units (unknown) date) canal Finder were unknown) then used followed by the lateralizer. (unknown) (no (unknown) (unknown) discussed that in (units (unknown) date) order to decrease unknown) the risk of avascular necrosis, fracture (unknown) (no (unknown) (unknown) dressing, please (units (unknown) date) remove the dressing unknown) completely and ensure that the incision is (unknown) (no (unknown) (unknown) fashion and this (units (unknown) date) was tagged with a unknown) #5 Ethibond suture for later repair. The (unknown) (no (unknown) (unknown) femoral head was (units (unknown) date) removed from the unknown) acetabulum. A Dickinson retractor was placed (unknown) (no (unknown) (unknown) final implant was (units (unknown) date) then inserted with unknown) just a few degrees of additional (unknown) (no (unknown) (unknown) fracture, need for (units (unknown) date) future surgery, unknown) dislocation, and risks of anesthesia. They (unknown) (no (unknown) (unknown) greater (units (unkno wn) date) trochanter. unknown) Dissection was carried down to the fascia jaden and a Abrams (unknown) (no (unknown) (unknown) greater (units (unkno wn) date) trochanter. Fascia unknown) was closed with Quill and then the subcutaneous (unknown) (no (unknown) (unknown) head/neck (units (unkn own) date) construct was unknown) inserted. The hip was again taken through range of (unknown) (no (unknown) (unknown) hip was then (units (u nknown) date) dislocated. With unknown) the thigh parallel to the ground and the leg (unknown) (no (unknown) (unknown) increase overall (units (unknown) date) health outcomes, we unknown) recommend hip hemiarthroplasty. The risks (unknown) (no (unknown) (unknown) induction of (units (u nknown) date) general anesthesia. unknown) Patient was placed in the lateral decubitus (unknown) (no (unknown) (unknown) infection, damage (units (unknown) date) to internal unknown) structures, bleeding, hardware failure, femur (unknown) (no (unknown) (unknown) instruments, (units (u nknown) date) proper exposure, unknown) and manipulation of tissue. (unknown) (no (unknown) (unknown) is the case then (units (unknown) date) Lovenox 40 mg unknown) subcutaneous for 4 weeks can be used for DVT (unknown) (no (unknown) (unknown) medically (units (unkn own) date) necessary for unknown) proper positioning, retraction and handlingof (unknown) (no (unknown) (unknown) motion. Implant (units (unknown) date) was stable at 90? unknown) of hip flexion all the way to 60? of internal (unknown) (no (unknown) (unknown) nonunion fracture (units (unknown) date) malunion and to unknown) increase the ability to weightbear early, and (unknown) (no (unknown) (unknown) perpendicular to (units (unknown) date) the ground at 90?, unknown) a femoral neck cut was done and then the (unknown) (no (unknown) (unknown) placed. The (units (un known) date) trochanter bursa unknown) was then resected. The leg was internally rotated (unknown) (no (unknown) (unknown) position with hip (units (unknown) date) tax assessor positioners. unknown) An axillary roll was placed. (unknown) (no (unknown) (unknown) postoperative (units ( unknown) date) visit in 2 weeks. I unknown) recommend aspirin, 81 mg b.i.d. for 4 weeks (unknown) (no (unknown) (unknown) prophylaxis. (units (u nknown) date) unknown) (unknown) (no (unknown) (unknown) released in line (units (unknown) date) with the piriformis unknown) tendon as a single sleeve in an L-shaped (unknown) (no (unknown) (unknown) rotation. Leg (units ( unknown) date) lengths were equal unknown) based on tibial tubercle palpation. The (unknown) (no (unknown) (unknown) rotation. Patient (units (unknown) date) may shower over the unknown) dressing. If water gets underneath the (unknown) (no (unknown) (unknown) site of surgery. (units (unknown) date) The patient was unknown) given perioperative IV antibiotics followed by (unknown) (no (unknown) (unknown) stable. Once (units (u nknown) date) satisfactory sizing unknown) was confirmed a centralized plug was inserted (unknown) (no (unknown) (unknown) sterile fashion. (units (unknown) date) Posterolateral skin unknown) incision was made centered over the (unknown) (no (unknown) (unknown) surgery. (units (unkno wn) date) unknown) (unknown) (no (unknown) (unknown) the assistance of (units (unknown) date) a skilled surgical unknown) information technology assistant. The surgical instrument mechanic was (unknown) (no (unknown) (unknown) tissue was closed (units (unknown) date) with Vicryl unknown) followed by skin emily and sterile dressings. (unknown) (no (unknown) (unknown) under the neck, (units (unknown) date) and a narrow Cobra unknown) was placed into the lesser trochanter. The (unknown) (no (unknown) (unknown) unless they are (units (unknown) date) already on an unknown) anticoagulant or aspirin is not tolerated, if this (unknown) (no (unknown) (unknown) upper part of the (units (unknown) date) quadratus femoris unknown) insertion on the femur was released. The (unknown) (no (unknown) (unknown) was marked with my (units (unknown) date) initials. Risks unknown) were again discussed. The patient was then (unknown) (no (unknown) (unknown) was used to define (units (unknown) date) the plane of unknown) tissue. The fascia was then incised in line (unknown) (no (unknown) (unknown) with the skin (units ( unknown) date) incision over the unknown) greater trochanter. A Charnley retractor was (unknown) (no (unknown) (unknown) wounds were (units (un known) date) irrigated. Capsule unknown) was repaired through 2 drill holes in the Result panel 166 (unknown) (no (unknown) (unknown) (no value) (units (unk nown) date) unknown) (unknown) (no (unknown) (unknown) [id number] (units (unkno wn) date) unknown) (unknown) (no (unknown) (unknown) 1. Interval left (units (unknown) date) hip arthroplasty. unknown) No definite periprosthetic fracture. (unknown) (no (unknown) (unknown) 03/24/22 (units (unkno wn) date) unknown) (unknown) (no (unknown) (unknown) [address] [place] [address] (units (unknown) date) unknown) (unknown) (no (unknown) (unknown) 16:10. (units (unkno wn) date) unknown) (unknown) (no (unknown) (unknown) Accession (units (unkn own) date) Number: unknown) [id number] (unknown) (no (unknown) (unknown) Age/Sex: 72 / F (units (unknown) date) Date of Service: unknown) (unknown) (no (unknown) (unknown) [place], [place] (units ( unknown) date) [id number] unknown) (unknown) (no (unknown) (unknown) Approved by: (units (u nknown) date) Ray Harris, unknown) [place] on 03/25/2022 at 1:31 (unknown) (no (unknown) (unknown) Bones: There are (units (unknown) date) postsurgical unknown) changes status post interval placement of a left (unknown) (no (unknown) (unknown) COMPARISON: (units (un known) date) [facility], unknown) CR, XR HIP W PEL IF DONE LT 2V, 03/23/2022, (unknown) (no (unknown) (unknown) : 1950 (units (unknown) date) Acct:[id number] unknown) (unknown) (no (unknown) (unknown) Dictated by: (units (u nknown) date) Ray Harris, unknown) Dedrick on 03/25/2022 at 1:30 (unknown) (no (unknown) (unknown) FINDINGS: (units (unkn own) date) unknown) (unknown) (no (unknown) (unknown) IMPRESSION: (units (un known) date) unknown) (unknown) (no (unknown) (unknown) INDICATIONS: (units (u nknown) date) POST OP TOTAL unknown) LEFT HIP (unknown) (no (unknown) (unknown) [facility] (units (unknown) date) unknown) (unknown) (no (unknown) (unknown) Loc: AC 220-1 (units ( unknown) date) unknown) (unknown) (no (unknown) (unknown) Ordering (units (unkno wn) date) Provider: unknown) Heraclio Mckeon D.O. (unknown) (no (unknown) (unknown) PROCEDURE: XR (units ( unknown) date) PELVIS 1-2V unknown) (unknown) (no (unknown) (unknown) Patient: (units (unkno wn) date) Elidia Rock unknown) MR#: [id number] (unknown) (no (unknown) (unknown) Procedure: XR (units ( unknown) date) pelvis 1-2V unknown) (unknown) (no (unknown) (unknown) Signed (units (unkno wn) date) unknown) (unknown) (no (unknown) (unknown) Soft tissues: (units ( unknown) date) Visualized bowel unknown) gas pattern is normal. No suspicious soft (unknown) (no (unknown) (unknown) TECHNIQUE: (units (unk nown) date) Single-view of unknown) the pelvis acquired. (unknown) (no (unknown) (unknown) XRay Report (units (un known) date) unknown) (unknown) (no (unknown) (unknown) arthroplasty. (units ( unknown) date) There is expected unknown) alignment. No periprosthetic fractures or (unknown) (no (unknown) (unknown) calcifications. (units (unknown) date) There are unknown) postsurgical changes with multiple skin emily (unknown) (no (unknown) (unknown) hip (units (unkno wn) date) unknown) (unknown) (no (unknown) (unknown) laterally. (units (unk nown) date) unknown) (unknown) (no (unknown) (unknown) lucencies. (units (unk nown) date) unknown) (unknown) (no (unknown) (unknown) suspicious (units (unk nown) date) unknown) (unknown) (no (unknown) (unknown) tissue (units (unkno wn) date) unknown) Result panel 167 (unknown) (no date) (unknown) (unknown) 0 /ul (unkn own) (unknown) (no date) (unknown) (unknown) 0.2 % (unkn own) (unknown) (no date) (unknown) (unknown) 0.6 % (unkn own) (unknown) (no date) (unknown) (unknown) 100 /ul (unkn own) (unknown) (no date) (unknown) (unknown) 11.3 g/dl (unkn own) (unknown) (no date) (unknown) (unknown) [id number] /ul (unkn own) (unknown) (no date) (unknown) (unknown) 13.3 x10 3/ul (unkn own) (unknown) (no date) (unknown) (unknown) 14.6 % (unkn own) (unknown) (no date) (unknown) (unknown) 2.5 % (unkn own) (unknown) (no date) (unknown) (unknown) 216 x10 3/ul (unkn own) (unknown) (no date) (unknown) (unknown) 28.7 pg (unkn own) (unknown) (no date) (unknown) (unknown) 3.0 % (unkn own) (unknown) (no date) (unknown) (unknown) 3.95 x10 6/ul (unkn own) (unknown) (no date) (unknown) (unknown) 300 /ul (unkn own) (unknown) (no date) (unknown) (unknown) 32.7 % (unkn own) (unknown) (no date) (unknown) (unknown) 34.7 % (unkn own) (unknown) (no date) (unknown) (unknown) 400 /ul (unkn own) (unknown) (no date) (unknown) (unknown) 87.9 fl (unkn own) (unknown) (no date) (unknown) (unknown) 93.7 % (unkn own) Result panel 168 (unknown) (no date) (unknown) (unknown) > 60 ml/min (unkn own) (unknown) (no date) (unknown) (unknown) > 60 ml/min (unkn own) (unknown) (no date) (unknown) (unknown) 0.88 mg/dl (unkn own) (unknown) (no date) (unknown) (unknown) 102 mmol/l (unkn own) (unknown) (no date) (unknown) (unknown) 134 mmol/l (unkn own) (unknown) (no date) (unknown) (unknown) 17 mg/dl (unkn own) (unknown) (no date) (unknown) (unknown) 175 mg/dl (unkn own) (unknown) (no date) (unknown) (unknown) 175 mg/dl (unkn own) (unknown) (no date) (unknown) (unknown) 19.3 (units unknown) (unknown) (unknown) (no date) (unknown) (unknown) 25 mmol/l (unkn own) (unknown) (no date) (unknown) (unknown) 4.1 mmol/l (unkn own) (unknown) (no date) (unknown) (unknown) 8.1 mg/dl (unkn own) Result panel 169 (unknown) (no (unknown) (unknown) (no value) (units (unk nown) date) unknown) (unknown) (no (unknown) (unknown) (1) Status post (units (unknown) date) hip surgery: unknown) (unknown) (no (unknown) (unknown) (past 8 hours): (units (unknown) date) unknown) (unknown) (no (unknown) (unknown) [id number] (units (unkno wn) date) unknown) (unknown) (no (unknown) (unknown) 04:05 03/25/22 (units (unknown) date) unknown) (unknown) (no (unknown) (unknown) 04:37 04:37 (units (un known) date) unknown) (unknown) (no (unknown) (unknown) 07:30 (units (unkno wn) date) unknown) (unknown) (no (unknown) (unknown) 08:45 03/25/22 (units (unknown) date) unknown) (unknown) (no (unknown) (unknown) 09:01 (units (unkno wn) date) unknown) (unknown) (no (unknown) (unknown) 1) Weightbearing (units (unknown) date) as tolerated LLE. unknown) Posterior hip precautions (no flexion w/ (unknown) (no (unknown) (unknown) 03/25/22 04:37 (units (unknown) date) unknown) (unknown) (no (unknown) (unknown) 03/25/22 0954 (units ( unknown) date) unknown) (unknown) (no (unknown) (unknown) 03/25/22 03/25/22 (units (unknown) date) unknown) (unknown) (no (unknown) (unknown) 03/25/22 (units (unkno wn) date) unknown) (unknown) (no (unknown) (unknown) 2) Patient may (units (unknown) date) shower over the unknown) dressing.? If water gets underneath the (unknown) (no (unknown) (unknown) 3) Aspirin, 81 mg (units (unknown) date) b.i.d. for 4 weeks unknown) for DVT prophylaxis. (unknown) (no (unknown) (unknown) 4) F/u w/ PA in (units (unknown) date) ortho clinic in 2 unknown) weeks for wound check/staple removal. F/u w/ (unknown) (no (unknown) (unknown) 5/5 DF, PF, EHL, (units (unknown) date) quadriceps, unknown) hamstrings. Calves soft, compressible, nontender. (unknown) (no (unknown) (unknown) Actual Procedure (units (unknown) date) Side Surgeon unknown) (unknown) (no (unknown) (unknown) Age/Sex: 72 / F (units (unknown) date) unknown) (unknown) (no (unknown) (unknown) Aquacel dressing (units (unknown) date) CDI. unknown) (unknown) (no (unknown) (unknown) Assessment + Plan (units (unknown) date) Post-op unknown) (unknown) (no (unknown) (unknown) Assessment and (units (unknown) date) Plan narrative: unknown) (unknown) (no (unknown) (unknown) Assessment and (units (unknown) date) plan unknown) (unknown) (no (unknown) (unknown) BUN 17 (units (unkno wn) date) unknown) (unknown) (no (unknown) (unknown) BUN/Creatinine (units (unknown) date) Ratio 19.3 unknown) (unknown) (no (unknown) (unknown) Baso # (Auto) 100 (units (unknown) date) unknown) (unknown) (no (unknown) (unknown) Baso % (Auto) 0.6 (units (unknown) date) unknown) (unknown) (no (unknown) (unknown) Blood Pressure (units (unknown) date) 91/43 L unknown) (unknown) (no (unknown) (unknown) Blood Pressure (units (unknown) date) 97/42 L unknown) (unknown) (no (unknown) (unknown) Calcium 8.1 L (units ( unknown) date) unknown) (unknown) (no (unknown) (unknown) Carbon Dioxide 25 (units (unknown) date) unknown) (unknown) (no (unknown) (unknown) Chloride 102 (units (u nknown) date) unknown) (unknown) (no (unknown) (unknown) Creatinine 0.88 (units (unknown) date) unknown) (unknown) (no (unknown) (unknown) : 1950 (units (unknown) date) Acct:[id number] unknown) (unknown) (no (unknown) (unknown) Date Patient Seen: (units (unknown) date) 03/25/22 unknown) (unknown) (no (unknown) (unknown) Date of Service: (units (unknown) date) 03/23/22 unknown) (unknown) (no (unknown) (unknown) Deep Vein (units (unkn own) date) Thrombosis/Pulmonar unknown) y Embolism Present on Admission: No (unknown) (no (unknown) (unknown) Dr Au in 6 (units (unknown) date) weeks for xrays and unknown) review of progress. (unknown) (no (unknown) (unknown) Eos # (Auto) 0 (units (unknown) date) unknown) (unknown) (no (unknown) (unknown) Eos % (Auto) 0.2 L (units (unknown) date) unknown) (unknown) (no (unknown) (unknown) Estimated GFR > 60 (units (unknown) date) unknown) (unknown) (no (unknown) (unknown) Exam Narrative: (units (unknown) date) unknown) (unknown) (no (unknown) (unknown) Exam (units (unkno wn) date) unknown) (unknown) (no (unknown) (unknown) Fibromyalgia (units (u nknown) date) unknown) (unknown) (no (unknown) (unknown) Glucose 175 H (units ( unknown) date) unknown) (unknown) (no (unknown) (unknown) Hct 34.7 L (units (unk nown) date) unknown) (unknown) (no (unknown) (unknown) Hgb 11.3 L (units (unk nown) date) unknown) (unknown) (no (unknown) (unknown) Hypertension (units (u nknown) date) unknown) (unknown) (no (unknown) (unknown) Hypothyroidism (units (unknown) date) unknown) (unknown) (no (unknown) (unknown) Interval history: (units (unknown) date) unknown) (unknown) (no (unknown) (unknown) [facility] (units (unknown) date) [address] unknown) [place] [address] (unknown) (no (unknown) (unknown) Laboratory Results (units (unknown) date) - last 24 hr unknown) (unknown) (no (unknown) (unknown) Labs (units (unkno wn) date) unknown) (unknown) (no (unknown) (unknown) Labs: (units (unkno wn) date) unknown) (unknown) (no (unknown) (unknown) Lymph # (Auto) 300 (units (unknown) date) L unknown) (unknown) (no (unknown) (unknown) Lymph % (Auto) 2.5 (units (unknown) date) L unknown) (unknown) (no (unknown) (unknown) MCH 28.7 (units (unkno wn) date) unknown) (unknown) (no (unknown) (unknown) MCHC 32.7 (units (unkn own) date) unknown) (unknown) (no (unknown) (unknown) MCV 87.9 (units (unkno wn) date) unknown) (unknown) (no (unknown) (unknown) Medical History (units (unknown) date) (Reviewed 03/24/22 unknown) @ 12:05 by Hay Au MD) (unknown) (no (unknown) (unknown) [place] # (Auto) 400 (units (unknown) date) unknown) (unknown) (no (unknown) (unknown) [place] % (Auto) 3.0 (units (unknown) date) unknown) (unknown) (no (unknown) (unknown) Narrative (units (unkn own) date) unknown) (unknown) (no (unknown) (unknown) Neut # (Auto) (units ( unknown) date) [address] H unknown) (unknown) (no (unknown) (unknown) Neut % (Auto) 93.7 (units (unknown) date) H unknown) (unknown) (no (unknown) (unknown) No pertinent past (units (unknown) date) surgical history unknown) (unknown) (no (unknown) (unknown) Objective (units (unkn own) date) unknown) (unknown) (no (unknown) (unknown) Operation Date: (units (unknown) date) 03/24/22 18:00 unknown) (unknown) (no (unknown) (unknown) Oxygen Delivery (units (unknown) date) Method Nasal unknown) Cannula (unknown) (no (unknown) (unknown) Oxygen Delivery (units (unknown) date) Method Oximask unknown) Nasal Cannula (unknown) (no (unknown) (unknown) Oxygen Delivery (units (unknown) date) Method unknown) (unknown) (no (unknown) (unknown) Oxygen Flow Rate 2 (units (unknown) date) unknown) (unknown) (no (unknown) (unknown) Oxygen Flow Rate 4 (units (unknown) date) unknown) (unknown) (no (unknown) (unknown) Oxygen Flow Rate 5 (units (unknown) date) 4 2 unknown) (unknown) (no (unknown) (unknown) PFSH (units (unkno wn) date) unknown) (unknown) (no (unknown) (unknown) Patient: (units (unkno wn) date) Elidia Rock unknown) MR#: [id number] (unknown) (no (unknown) (unknown) Plt Count 216 (units ( unknown) date) unknown) (unknown) (no (unknown) (unknown) Postoperative day: (units (unknown) date) 1 unknown) (unknown) (no (unknown) (unknown) Postoperative (units ( unknown) date) unknown) (unknown) (no (unknown) (unknown) Potassium 4.1 (units ( unknown) date) unknown) (unknown) (no (unknown) (unknown) Procedures (units (unk nown) date) unknown) (unknown) (no (unknown) (unknown) Procedures: (units (un known) date) unknown) (unknown) (no (unknown) (unknown) Progress Note (units ( unknown) date) unknown) (unknown) (no (unknown) (unknown) Provider: (units (unkn own) date) Sis Quinonez P.A-C unknown) (unknown) (no (unknown) (unknown) Pulse Oximetry 99 (units (unknown) date) 95 95 unknown) (unknown) (no (unknown) (unknown) Pulse Oximetry 99 (units (unknown) date) unknown) (unknown) (no (unknown) (unknown) Pulse Rate 72 (units ( unknown) date) unknown) (unknown) (no (unknown) (unknown) Pulse Rate 73 (units ( unknown) date) unknown) (unknown) (no (unknown) (unknown) Quality (units (unkno wn) date) unknown) (unknown) (no (unknown) (unknown) RBC 3.95 L (units (unk nown) date) unknown) (unknown) (no (unknown) (unknown) RDW 14.6 (units (unkno wn) date) unknown) (unknown) (no (unknown) (unknown) Respiratory Rate (units (unknown) date) 16 unknown) (unknown) (no (unknown) (unknown) Respiratory Rate (units (unknown) date) 18 unknown) (unknown) (no (unknown) (unknown) Restrictive lung (units (unknown) date) disease unknown) (unknown) (no (unknown) (unknown) Result Diagrams: (units (unknown) date) unknown) (unknown) (no (unknown) (unknown) Signed (units (unkno wn) date) By:<Electronically unknown) signed by Sis Romo Beh> (unknown) (no (unknown) (unknown) Sitting up in bed (units (unknown) date) comfortably, unknown) surgery completed late last night, has not worked (unknown) (no (unknown) (unknown) Smoking Status: (units (unknown) date) Former smoker unknown) (unknown) (no (unknown) (unknown) Social History (units (unknown) date) (Reviewed 03/23/22 unknown) @ 16:07 by Liam Colón MD) (unknown) (no (unknown) (unknown) Sodium 134 L (units (u nknown) date) unknown) (unknown) (no (unknown) (unknown) Subjective (units (unk nown) date) unknown) (unknown) (no (unknown) (unknown) Surgical History (units (unknown) date) (Reviewed 03/24/22 unknown) @ 12:05 by Hay Au MD) (unknown) (no (unknown) (unknown) Temperature 96.3 F (units (unknown) date) L unknown) (unknown) (no (unknown) (unknown) Temperature 97.2 F (units (unknown) date) L unknown) (unknown) (no (unknown) (unknown) Time Patient Seen: (units (unknown) date) 09:49 unknown) (unknown) (no (unknown) (unknown) VTE (units (unkno wn) date) unknown) (unknown) (no (unknown) (unknown) Vital Signs (units (un known) date) unknown) (unknown) (no (unknown) (unknown) WBC 13.3 H (units (unk nown) date) unknown) (unknown) (no (unknown) (unknown) [Embedded Image (units (unknown) date) Not Available] unknown) (unknown) (no (unknown) (unknown) adduction and (units ( unknown) date) internal rotation). unknown) (unknown) (no (unknown) (unknown) alcohol intake: (units (unknown) date) current unknown) (unknown) (no (unknown) (unknown) completely dry.? (units (unknown) date) Otherwise, the unknown) dressing will come off on at the 1st (unknown) (no (unknown) (unknown) dressing, please (units (unknown) date) remove the dressing unknown) completely and ensure that the incision is (unknown) (no (unknown) (unknown) household members: (units (unknown) date) significant other unknown) (unknown) (no (unknown) (unknown) p Hip (units (unkno wn) date) Hemiarthroplasty unknown) Sai Left Hay Au MD (unknown) (no (unknown) (unknown) postoperative (units ( unknown) date) visit in 2 weeks.? unknown) (unknown) (no (unknown) (unknown) substance use (units ( unknown) date) type: does not use unknown) (unknown) (no (unknown) (unknown) w/ PT since (units (un known) date) surgery. unknown) Result panel 170 (unknown) (no (unknown) (unknown) (no value) (units (unk nown) date) unknown) (unknown) (no (unknown) (unknown) (past 8 hours): (units (unknown) date) unknown) (unknown) (no (unknown) (unknown) [id number] (units (unkno wn) date) unknown) (unknown) (no (unknown) (unknown) 04:37 04:37 (units (un known) date) unknown) (unknown) (no (unknown) (unknown) 07:30 (units (unkno wn) date) unknown) (unknown) (no (unknown) (unknown) 08:00 03/25/22 (units (unknown) date) unknown) (unknown) (no (unknown) (unknown) 08:00 (units (unkno wn) date) unknown) (unknown) (no (unknown) (unknown) 08:45 03/25/22 (units (unknown) date) unknown) (unknown) (no (unknown) (unknown) 09:01 03/25/22 (units (unknown) date) unknown) (unknown) (no (unknown) (unknown) 1. Postoperative (units (unknown) date) day 1 from left hip unknown) hemiarthroplasty for left femoral neck (unknown) (no (unknown) (unknown) 11:00 03/25/22 (units (unknown) date) unknown) (unknown) (no (unknown) (unknown) 03/25/22 04:37 (units (unknown) date) unknown) (unknown) (no (unknown) (unknown) 03/25/22 03/25/22 (units (unknown) date) unknown) (unknown) (no (unknown) (unknown) 03/25/22 (units (unkno wn) date) unknown) (unknown) (no (unknown) (unknown) 12:00 (units (unkno wn) date) unknown) (unknown) (no (unknown) (unknown) 2 liters/minute. (units (unknown) date) Will continue to unknown) monitor. Etiology is not entirely clear, (unknown) (no (unknown) (unknown) 2. Acute hypoxic (units (unknown) date) respiratory failure unknown) (unknown) (no (unknown) (unknown) 3. Ascending (units (u nknown) date) aortic aneurysm unknown) (unknown) (no (unknown) (unknown) 4. 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 Depression (units ( unknown) date) unknown) (unknown) (no (unknown) (unknown) 72-year-old female (units (unknown) date) with idiopathic unknown) pulmonary fibrosis, hypertension, (unknown) (no (unknown) (unknown) 8. Hypothyroidism (units (unknown) date) unknown) (unknown) (no (unknown) (unknown) ABD: Soft, NT/ND, (units (unknown) date) BT present in all 4 unknown) quadrants, no organomegaly or masses (unknown) (no (unknown) (unknown) Age/Sex: 72 / F (units (unknown) date) unknown) (unknown) (no (unknown) (unknown) Appreciate (units (unk nown) date) management per unknown) Orthopedic surgery. Work on mobilization and pain (unknown) (no (unknown) (unknown) Assessment + Plan (units (unknown) date) narrative: unknown) (unknown) (no (unknown) (unknown) Assessment + Plan (units (unknown) date) unknown) (unknown) (no (unknown) (unknown) BUN 17 (units (unkno wn) date) unknown) (unknown) (no (unknown) (unknown) BUN/Creatinine (units (unknown) date) Ratio 19.3 unknown) (unknown) (no (unknown) (unknown) Baso # (Auto) 100 (units (unknown) date) unknown) (unknown) (no (unknown) (unknown) Baso % (Auto) 0.6 (units (unknown) date) unknown) (unknown) (no (unknown) (unknown) Blood Pressure (units (unknown) date) 117/39 L unknown) (unknown) (no (unknown) (unknown) Blood Pressure (units (unknown) date) 97/42 L unknown) (unknown) (no (unknown) (unknown) Blood Pressure (units (unknown) date) 99/39 L unknown) (unknown) (no (unknown) (unknown) CHEST: Respiratory (units (unknown) date) excursions unknown) symmetric, CTAB (unknown) (no (unknown) (unknown) CV: RRR, no M/R/G (units (unknown) date) unknown) (unknown) (no (unknown) (unknown) Calcium 8.1 L (units ( unknown) date) unknown) (unknown) (no (unknown) (unknown) Carbon Dioxide 25 (units (unknown) date) unknown) (unknown) (no (unknown) (unknown) Chloride 102 (units (u nknown) date) unknown) (unknown) (no (unknown) (unknown) Code status (units (un known) date) unknown) (unknown) (no (unknown) (unknown) Continue (units (unkno wn) date) levothyroxine unknown) (unknown) (no (unknown) (unknown) Continue (units (unkno wn) date) outpatient dose of unknown) Lamictal. She also uses diazepam at bedtime for (unknown) (no (unknown) (unknown) Creatinine 0.88 (units (unknown) date) unknown) (unknown) (no (unknown) (unknown) Critical Care (units ( unknown) date) time: unknown) (unknown) (no (unknown) (unknown) : 1950 (units (unknown) date) Acct:[id number] unknown) (unknown) (no (unknown) (unknown) Date of Service: (units (unknown) date) 03/23/22 unknown) (unknown) (no (unknown) (unknown) Deep Vein (units (unkn own) date) Thrombosis/Pulmonar unknown) y Embolism Present on Admission: No (unknown) (no (unknown) (unknown) Disposition (units (un known) date) unknown) (unknown) (no (unknown) (unknown) EXTR: warm, well (units (unknown) date) perfused, no C/C/E unknown) (unknown) (no (unknown) (unknown) Eos # (Auto) 0 (units (unknown) date) unknown) (unknown) (no (unknown) (unknown) Eos % (Auto) 0.2 L (units (unknown) date) unknown) (unknown) (no (unknown) (unknown) Estimated GFR > 60 (units (unknown) date) unknown) (unknown) (no (unknown) (unknown) Exam Narrative: (units (unknown) date) unknown) (unknown) (no (unknown) (unknown) Exam (units (unkno wn) date) unknown) (unknown) (no (unknown) (unknown) Fibromyalgia (units (u nknown) date) unknown) (unknown) (no (unknown) (unknown) Full (units (unkno wn) date) unknown) (unknown) (no (unknown) (unknown) GEN: Alert and (units (unknown) date) oriented x 3, NAD unknown) (unknown) (no (unknown) (unknown) Glucose 175 H (units ( unknown) date) unknown) (unknown) (no (unknown) (unknown) HEENT:NC, Face (units (unknown) date) symmetric unknown) (unknown) (no (unknown) (unknown) Hct 34.7 L (units (unk nown) date) unknown) (unknown) (no (unknown) (unknown) Hgb 11.3 L (units (unk nown) date) unknown) (unknown) (no (unknown) (unknown) Hypertension (units (u nknown) date) unknown) (unknown) (no (unknown) (unknown) Hypothyroidism (units (unknown) date) unknown) (unknown) (no (unknown) (unknown) I spent a total of (units (unknown) date) [] minutes of unknown) critical care time on this patient's care (unknown) (no (unknown) (unknown) Interval history: (units (unknown) date) unknown) (unknown) (no (unknown) (unknown) [facility] (units (unknown) date) [address] unknown) [place] [address] (unknown) (no (unknown) (unknown) Laboratory Results (units (unknown) date) - last 24 hr unknown) (unknown) (no (unknown) (unknown) Labs (units (unkno wn) date) unknown) (unknown) (no (unknown) (unknown) Labs: (units (unkno wn) date) unknown) (unknown) (no (unknown) (unknown) Lymph # (Auto) 300 (units (unknown) date) L unknown) (unknown) (no (unknown) (unknown) Lymph % (Auto) 2.5 (units (unknown) date) L unknown) (unknown) (no (unknown) (unknown) MCH 28.7 (units (unkno wn) date) unknown) (unknown) (no (unknown) (unknown) MCHC 32.7 (units (unkn own) date) unknown) (unknown) (no (unknown) (unknown) MCV 87.9 (units (unkno wn) date) unknown) (unknown) (no (unknown) (unknown) Measuring 6.4 cm. (units (unknown) date) She will need close unknown) follow-up. She is on metoprolol for (unknown) (no (unknown) (unknown) Medical History (units (unknown) date) (Reviewed 03/24/22 unknown) @ 12:05 by Hay Au MD) (unknown) (no (unknown) (unknown) [place] # (Auto) 400 (units (unknown) date) unknown) (unknown) (no (unknown) (unknown) [place] % (Auto) 3.0 (units (unknown) date) unknown) (unknown) (no (unknown) (unknown) NEURO: Alert and (units (unknown) date) oriented x 3, unknown) nonfocal (unknown) (no (unknown) (unknown) Narrative (units (unkn own) date) unknown) (unknown) (no (unknown) (unknown) Nasal Cannula (units ( unknown) date) Nasal Cannula unknown) (unknown) (no (unknown) (unknown) Neut # (Auto) (units ( unknown) date) 29998 H unknown) (unknown) (no (unknown) (unknown) Neut % (Auto) 93.7 (units (unknown) date) H unknown) (unknown) (no (unknown) (unknown) No pertinent past (units (unknown) date) surgical history unknown) (unknown) (no (unknown) (unknown) Objective (units (unkn own) date) unknown) (unknown) (no (unknown) (unknown) Oxygen Delivery (units (unknown) date) Method Nasal unknown) Cannula (unknown) (no (unknown) (unknown) Oxygen Delivery (units (unknown) date) Method Oximask unknown) Nasal Cannula (unknown) (no (unknown) (unknown) Oxygen Delivery (units (unknown) date) Method Room Air unknown) (unknown) (no (unknown) (unknown) Oxygen Delivery (units (unknown) date) Method unknown) (unknown) (no (unknown) (unknown) Oxygen Flow Rate 2 (units (unknown) date) 2 unknown) (unknown) (no (unknown) (unknown) Oxygen Flow Rate 2 (units (unknown) date) unknown) (unknown) (no (unknown) (unknown) Oxygen Flow Rate 4 (units (unknown) date) 2 4 unknown) (unknown) (no (unknown) (unknown) PFSH (units (unkno wn) date) unknown) (unknown) (no (unknown) (unknown) Patient reportedly (units (unknown) date) had an NSTEMI at unknown) the end of February. Troponin was 0.050, (unknown) (no (unknown) (unknown) Patient takes (units ( unknown) date) fentanyl 75 mcg Q unknown) 72 hours. She is due for a patch changed today. (unknown) (no (unknown) (unknown) Patient: (units (unkno wn) date) Elidia Rock unknown) MR#: [id number] (unknown) (no (unknown) (unknown) Pending (units (unkno wn) date) unknown) (unknown) (no (unknown) (unknown) Plt Count 216 (units ( unknown) date) unknown) (unknown) (no (unknown) (unknown) Postoperatively, (units (unknown) date) patient did require unknown) 5 L of oxygen via nasal cannula. At (unknown) (no (unknown) (unknown) Potassium 4.1 (units ( unknown) date) unknown) (unknown) (no (unknown) (unknown) Progress Note (units ( unknown) date) unknown) (unknown) (no (unknown) (unknown) Prophylaxis (units (un known) date) unknown) (unknown) (no (unknown) (unknown) Provider: (units (unkn own) date) Mounika Pace MD unknown) (unknown) (no (unknown) (unknown) Pulse Oximetry 95 (units (unknown) date) 95 99 unknown) (unknown) (no (unknown) (unknown) Pulse Oximetry 96 (units (unknown) date) 94 unknown) (unknown) (no (unknown) (unknown) Pulse Oximetry 96 (units (unknown) date) unknown) (unknown) (no (unknown) (unknown) Pulse Rate 73 (units ( unknown) date) unknown) (unknown) (no (unknown) (unknown) Pulse Rate 77 (units ( unknown) date) unknown) (unknown) (no (unknown) (unknown) Pulse Rate 82 (units ( unknown) date) unknown) (unknown) (no (unknown) (unknown) Quality (units (unkno wn) date) unknown) (unknown) (no (unknown) (unknown) RBC 3.95 L (units (unk nown) date) unknown) (unknown) (no (unknown) (unknown) RDW 14.6 (units (unkno wn) date) unknown) (unknown) (no (unknown) (unknown) Respiratory Rate (units (unknown) date) 18 unknown) (unknown) (no (unknown) (unknown) Respiratory Rate (units (unknown) date) 20 unknown) (unknown) (no (unknown) (unknown) Restrictive lung (units (unknown) date) disease unknown) (unknown) (no (unknown) (unknown) Result Diagrams: (units (unknown) date) unknown) (unknown) (no (unknown) (unknown) SKIN: warm and (units (unknown) date) dry, no rash unknown) (unknown) (no (unknown) (unknown) She is not on any (units (unknown) date) outpatient unknown) medications or inhalers. (unknown) (no (unknown) (unknown) Signed By: (units (unk nown) date) unknown) (unknown) (no (unknown) (unknown) Smoking Status: (units (unknown) date) Former smoker unknown) (unknown) (no (unknown) (unknown) Social History (units (unknown) date) (Reviewed 03/23/22 unknown) @ 16:07 by Liam Colón MD) (unknown) (no (unknown) (unknown) Sodium 134 L (units (u nknown) date) unknown) (unknown) (no (unknown) (unknown) Subjective (units (unk nown) date) unknown) (unknown) (no (unknown) (unknown) Surgical History (units (unknown) date) (Reviewed 03/24/22 unknown) @ 12:05 by Hay Au MD) (unknown) (no (unknown) (unknown) Temperature 97.2 F (units (unknown) date) L unknown) (unknown) (no (unknown) (unknown) Temperature (units (un known) date) unknown) (unknown) (no (unknown) (unknown) This will be (units (u nknown) date) accomplished unknown) (unknown) (no (unknown) (unknown) Time Spent With (units (unknown) date) Patient unknown) (unknown) (no (unknown) (unknown) VTE (units (unkno wn) date) unknown) (unknown) (no (unknown) (unknown) Vital Signs (units (un known) date) unknown) (unknown) (no (unknown) (unknown) WBC 13.3 H (units (unk nown) date) unknown) (unknown) (no (unknown) (unknown) Will start Lovenox (units (unknown) date) unknown) (unknown) (no (unknown) (unknown) [Embedded Image (units (unknown) date) Not Available] unknown) (unknown) (no (unknown) (unknown) after a fall with (units (unknown) date) an acute left unknown) femoral neck fracture. She is presently (unknown) (no (unknown) (unknown) alcohol intake: (units (unknown) date) current unknown) (unknown) (no (unknown) (unknown) baseline she does (units (unknown) date) not require oxygen. unknown) Patient has known idiopathic pulmonary (unknown) (no (unknown) (unknown) blood pressure (units (unknown) date) control. unknown) (unknown) (no (unknown) (unknown) but could be (units (u nknown) date) related to unknown) underlying lung disease and anesthesia for surgery. No (unknown) (no (unknown) (unknown) clear evidence of (units (unknown) date) aspiration. unknown) (unknown) (no (unknown) (unknown) control. (units (unkno wn) date) unknown) (unknown) (no (unknown) (unknown) down trending to (units (unknown) date) 0.041. It likely to unknown) be cardiac demand ischemia. (unknown) (no (unknown) (unknown) fibrosis. She was (units (unknown) date) initially treated unknown) with IV furosemide. O2 need is now down to (unknown) (no (unknown) (unknown) fracture (units (unkno wn) date) unknown) (unknown) (no (unknown) (unknown) household members: (units (unknown) date) significant other unknown) (unknown) (no (unknown) (unknown) hypothyroidism, (units (unknown) date) fibromyalgia, and unknown) ascending aortic aneurysm who was admitted (unknown) (no (unknown) (unknown) postoperative day (units (unknown) date) 1 from left hip unknown) hemiarthroplasty. (unknown) (no (unknown) (unknown) sleep. (units (unkno wn) date) unknown) (unknown) (no (unknown) (unknown) substance use (units ( unknown) date) type: does not use unknown) (unknown) (no (unknown) (unknown) today; this time (units (unknown) date) is exclusive of unknown) procedural time. Result panel 171 (unknown) (no (unknown) (unknown) (no value) (units (unk nown) date) unknown) (unknown) (no (unknown) (unknown) (past 8 hours): (units (unknown) date) unknown) (unknown) (no (unknown) (unknown) [id number] (units (unkno wn) date) unknown) (unknown) (no (unknown) (unknown) 04:37 04:37 (units (un known) date) unknown) (unknown) (no (unknown) (unknown) 07:30 (units (unkno wn) date) unknown) (unknown) (no (unknown) (unknown) 08:00 03/25/22 (units (unknown) date) unknown) (unknown) (no (unknown) (unknown) 08:00 (units (unkno wn) date) unknown) (unknown) (no (unknown) (unknown) 08:45 03/25/22 (units (unknown) date) unknown) (unknown) (no (unknown) (unknown) 09:01 03/25/22 (units (unknown) date) unknown) (unknown) (no (unknown) (unknown) 1. Postoperative (units (unknown) date) day 1 from left hip unknown) hemiarthroplasty for left femoral neck (unknown) (no (unknown) (unknown) 11:00 03/25/22 (units (unknown) date) unknown) (unknown) (no (unknown) (unknown) 03/25/22 04:37 (units (unknown) date) unknown) (unknown) (no (unknown) (unknown) 03/25/22 03/25/22 (units (unknown) date) unknown) (unknown) (no (unknown) (unknown) 03/25/22 1423 (units ( unknown) date) unknown) (unknown) (no (unknown) (unknown) 03/25/22 (units (unkno wn) date) unknown) (unknown) (no (unknown) (unknown) 12:00 (units (unkno wn) date) unknown) (unknown) (no (unknown) (unknown) 2 liters/minute. (units (unknown) date) Will continue to unknown) monitor. Etiology is not entirely clear, (unknown) (no (unknown) (unknown) 2. Acute hypoxic (units (unknown) date) respiratory failure unknown) (unknown) (no (unknown) (unknown) 3. Ascending (units (u nknown) date) aortic aneurysm unknown) (unknown) (no (unknown) (unknown) 4. 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 Depression (units ( unknown) date) unknown) (unknown) (no (unknown) (unknown) 72-year-old female (units (unknown) date) with idiopathic unknown) pulmonary fibrosis, hypertension, (unknown) (no (unknown) (unknown) 8. Hypothyroidism (units (unknown) date) unknown) (unknown) (no (unknown) (unknown) 9. Oliguria (units (un known) date) unknown) (unknown) (no (unknown) (unknown) ABD: Soft, NT/ND, (units (unknown) date) BT present in all 4 unknown) quadrants, no organomegaly or masses (unknown) (no (unknown) (unknown) Age/Sex: 72 / F (units (unknown) date) unknown) (unknown) (no (unknown) (unknown) Appreciate (units (unk nown) date) management per unknown) Orthopedic surgery. Work on mobilization and pain (unknown) (no (unknown) (unknown) Assessment + Plan (units (unknown) date) narrative: unknown) (unknown) (no (unknown) (unknown) Assessment + Plan (units (unknown) date) unknown) (unknown) (no (unknown) (unknown) BUN 17 (units (unkno wn) date) unknown) (unknown) (no (unknown) (unknown) BUN/Creatinine (units (unknown) date) Ratio 19.3 unknown) (unknown) (no (unknown) (unknown) Baso # (Auto) 100 (units (unknown) date) unknown) (unknown) (no (unknown) (unknown) Baso % (Auto) 0.6 (units (unknown) date) unknown) (unknown) (no (unknown) (unknown) Blood Pressure (units (unknown) date) 117/39 L unknown) (unknown) (no (unknown) (unknown) Blood Pressure (units (unknown) date) 97/42 L unknown) (unknown) (no (unknown) (unknown) Blood Pressure (units (unknown) date) 99/39 L unknown) (unknown) (no (unknown) (unknown) CHEST: Respiratory (units (unknown) date) excursions unknown) symmetric, coarse but CTAB (unknown) (no (unknown) (unknown) CV: RRR, no M/R/G (units (unknown) date) unknown) (unknown) (no (unknown) (unknown) Calcium 8.1 L (units ( unknown) date) unknown) (unknown) (no (unknown) (unknown) Carbon Dioxide 25 (units (unknown) date) unknown) (unknown) (no (unknown) (unknown) Chloride 102 (units (u nknown) date) unknown) (unknown) (no (unknown) (unknown) Code status (units (un known) date) unknown) (unknown) (no (unknown) (unknown) Continue (units (unkno wn) date) levothyroxine unknown) (unknown) (no (unknown) (unknown) Continue (units (unkno wn) date) outpatient dose of unknown) Lamictal. She also uses diazepam at bedtime for (unknown) (no (unknown) (unknown) Creatinine 0.88 (units (unknown) date) unknown) (unknown) (no (unknown) (unknown) Critical Care (units ( unknown) date) time: unknown) (unknown) (no (unknown) (unknown) : 1950 (units (unknown) date) Acct:[id number] unknown) (unknown) (no (unknown) (unknown) Date of Service: (units (unknown) date) 03/23/22 unknown) (unknown) (no (unknown) (unknown) Deep Vein (units (unkn own) date) Thrombosis/Pulmonar unknown) y Embolism Present on Admission: No (unknown) (no (unknown) (unknown) Disposition (units (un known) date) unknown) (unknown) (no (unknown) (unknown) EXTR: warm, well (units (unknown) date) perfused, no C/C/E unknown) (unknown) (no (unknown) (unknown) Eos # (Auto) 0 (units (unknown) date) unknown) (unknown) (no (unknown) (unknown) Eos % (Auto) 0.2 L (units (unknown) date) unknown) (unknown) (no (unknown) (unknown) Estimated GFR > 60 (units (unknown) date) unknown) (unknown) (no (unknown) (unknown) Exam Narrative: (units (unknown) date) unknown) (unknown) (no (unknown) (unknown) Exam (units (unkno wn) date) unknown) (unknown) (no (unknown) (unknown) Fibromyalgia (units (u nknown) date) unknown) (unknown) (no (unknown) (unknown) Full (units (unkno wn) date) unknown) (unknown) (no (unknown) (unknown) GEN: Alert and (units (unknown) date) oriented x 3, NAD unknown) (unknown) (no (unknown) (unknown) Glucose 175 H (units ( unknown) date) unknown) (unknown) (no (unknown) (unknown) HEENT:NC, Face (units (unknown) date) symmetric unknown) (unknown) (no (unknown) (unknown) Hct 34.7 L (units (unk nown) date) unknown) (unknown) (no (unknown) (unknown) Hgb 11.3 L (units (unk nown) date) unknown) (unknown) (no (unknown) (unknown) Hypertension (units (u nknown) date) unknown) (unknown) (no (unknown) (unknown) Hypothyroidism (units (unknown) date) unknown) (unknown) (no (unknown) (unknown) I spent a total of (units (unknown) date) [] minutes of unknown) critical care time on this patient's care (unknown) (no (unknown) (unknown) Interval history: (units (unknown) date) unknown) (unknown) (no (unknown) (unknown) [facility] (units (unknown) date) [address] unknown) [place] [address] (unknown) (no (unknown) (unknown) Laboratory Results (units (unknown) date) - last 24 hr unknown) (unknown) (no (unknown) (unknown) Labs (units (unkno wn) date) unknown) (unknown) (no (unknown) (unknown) Labs: (units (unkno wn) date) unknown) (unknown) (no (unknown) (unknown) Lymph # (Auto) 300 (units (unknown) date) L unknown) (unknown) (no (unknown) (unknown) Lymph % (Auto) 2.5 (units (unknown) date) L unknown) (unknown) (no (unknown) (unknown) MCH 28.7 (units (unkno wn) date) unknown) (unknown) (no (unknown) (unknown) MCHC 32.7 (units (unkn own) date) unknown) (unknown) (no (unknown) (unknown) MCV 87.9 (units (unkno wn) date) unknown) (unknown) (no (unknown) (unknown) Measuring 6.4 cm. (units (unknown) date) She will need close unknown) follow-up. She is on metoprolol for (unknown) (no (unknown) (unknown) Medical History (units (unknown) date) (Reviewed 03/24/22 unknown) @ 12:05 by Hay Au MD) (unknown) (no (unknown) (unknown) [place] # (Auto) 400 (units (unknown) date) unknown) (unknown) (no (unknown) (unknown) [place] % (Auto) 3.0 (units (unknown) date) unknown) (unknown) (no (unknown) (unknown) NEURO: Alert and (units (unknown) date) oriented x 3, unknown) nonfocal (unknown) (no (unknown) (unknown) Narrative (units (unkn own) date) unknown) (unknown) (no (unknown) (unknown) Nasal Cannula (units ( unknown) date) Nasal Cannula unknown) (unknown) (no (unknown) (unknown) Neut # (Auto) (units ( unknown) date) 45991 H unknown) (unknown) (no (unknown) (unknown) Neut % (Auto) 93.7 (units (unknown) date) H unknown) (unknown) (no (unknown) (unknown) No pertinent past (units (unknown) date) surgical history unknown) (unknown) (no (unknown) (unknown) Objective (units (unkn own) date) unknown) (unknown) (no (unknown) (unknown) Oxygen Delivery (units (unknown) date) Method Nasal unknown) Cannula (unknown) (no (unknown) (unknown) Oxygen Delivery (units (unknown) date) Method Oximask unknown) Nasal Cannula (unknown) (no (unknown) (unknown) Oxygen Delivery (units (unknown) date) Method Room Air unknown) (unknown) (no (unknown) (unknown) Oxygen Delivery (units (unknown) date) Method unknown) (unknown) (no (unknown) (unknown) Oxygen Flow Rate 2 (units (unknown) date) 2 unknown) (unknown) (no (unknown) (unknown) Oxygen Flow Rate 2 (units (unknown) date) unknown) (unknown) (no (unknown) (unknown) Oxygen Flow Rate 4 (units (unknown) date) 2 4 unknown) (unknown) (no (unknown) (unknown) PFSH (units (unkno wn) date) unknown) (unknown) (no (unknown) (unknown) Patient reportedly (units (unknown) date) had an NSTEMI at unknown) the end of February. Troponin was 0.050, (unknown) (no (unknown) (unknown) Patient reports (units (unknown) date) she is feeling unknown) fairly well today. She is not been any (unknown) (no (unknown) (unknown) Patient takes (units ( unknown) date) fentanyl 75 mcg Q unknown) 72 hours. She is due for a patch changed today. (unknown) (no (unknown) (unknown) Patient was (units (un known) date) diuresed yesterday. unknown) She is now having minimal urine output. (unknown) (no (unknown) (unknown) Patient: (units (unkno wn) date) ShwetaElidia Ankur unknown) MR#: [id number] (unknown) (no (unknown) (unknown) Pending (units (unkno wn) date) unknown) (unknown) (no (unknown) (unknown) Plt Count 216 (units ( unknown) date) unknown) (unknown) (no (unknown) (unknown) Postoperatively, (units (unknown) date) patient did require unknown) 5 L of oxygen via nasal cannula. At (unknown) (no (unknown) (unknown) Potassium 4.1 (units ( unknown) date) unknown) (unknown) (no (unknown) (unknown) Progress Note (units ( unknown) date) unknown) (unknown) (no (unknown) (unknown) Prophylaxis (units (un known) date) unknown) (unknown) (no (unknown) (unknown) Provider: (units (unkn own) date) Mounika Pace MD unknown) (unknown) (no (unknown) (unknown) Pulse Oximetry 95 (units (unknown) date) 95 99 unknown) (unknown) (no (unknown) (unknown) Pulse Oximetry 96 (units (unknown) date) 94 unknown) (unknown) (no (unknown) (unknown) Pulse Oximetry 96 (units (unknown) date) unknown) (unknown) (no (unknown) (unknown) Pulse Rate 73 (units ( unknown) date) unknown) (unknown) (no (unknown) (unknown) Pulse Rate 77 (units ( unknown) date) unknown) (unknown) (no (unknown) (unknown) Pulse Rate 82 (units ( unknown) date) unknown) (unknown) (no (unknown) (unknown) Quality (units (unkno wn) date) unknown) (unknown) (no (unknown) (unknown) RBC 3.95 L (units (unk nown) date) unknown) (unknown) (no (unknown) (unknown) RDW 14.6 (units (unkno wn) date) unknown) (unknown) (no (unknown) (unknown) Respiratory Rate (units (unknown) date) 18 unknown) (unknown) (no (unknown) (unknown) Respiratory Rate (units (unknown) date) 20 unknown) (unknown) (no (unknown) (unknown) Restrictive lung (units (unknown) date) disease unknown) (unknown) (no (unknown) (unknown) Result Diagrams: (units (unknown) date) unknown) (unknown) (no (unknown) (unknown) SKIN: warm and (units (unknown) date) dry, no rash unknown) (unknown) (no (unknown) (unknown) She is not on any (units (unknown) date) outpatient unknown) medications or inhalers. (unknown) (no (unknown) (unknown) Signed (units (unkno wn) date) By:<Electronically unknown) signed by Mounika Pace MD> (unknown) (no (unknown) (unknown) Smoking Status: (units (unknown) date) Former smoker unknown) (unknown) (no (unknown) (unknown) Social History (units (unknown) date) (Reviewed 03/23/22 unknown) @ 16:07 by Liam Colón MD) (unknown) (no (unknown) (unknown) Sodium 134 L (units (u nknown) date) unknown) (unknown) (no (unknown) (unknown) Subjective (units (unk nown) date) unknown) (unknown) (no (unknown) (unknown) Surgical History (units (unknown) date) (Reviewed 03/24/22 unknown) @ 12:05 by Hay Au MD) (unknown) (no (unknown) (unknown) Suspect she is a (units (unknown) date) bit hypovolemic. unknown) Will give a fluid bolus and monitor. (unknown) (no (unknown) (unknown) Temperature 97.2 F (units (unknown) date) L unknown) (unknown) (no (unknown) (unknown) Temperature (units (un known) date) unknown) (unknown) (no (unknown) (unknown) This will be (units (u nknown) date) accomplished unknown) (unknown) (no (unknown) (unknown) Time Spent With (units (unknown) date) Patient unknown) (unknown) (no (unknown) (unknown) VTE (units (unkno wn) date) unknown) (unknown) (no (unknown) (unknown) Vital Signs (units (un known) date) unknown) (unknown) (no (unknown) (unknown) WBC 13.3 H (units (unk nown) date) unknown) (unknown) (no (unknown) (unknown) Will start Lovenox (units (unknown) date) unknown) (unknown) (no (unknown) (unknown) [Embedded Image (units (unknown) date) Not Available] unknown) (unknown) (no (unknown) (unknown) after a fall with (units (unknown) date) an acute left unknown) femoral neck fracture. She is presently (unknown) (no (unknown) (unknown) alcohol intake: (units (unknown) date) current unknown) (unknown) (no (unknown) (unknown) baseline she does (units (unknown) date) not require oxygen. unknown) Patient has known idiopathic pulmonary (unknown) (no (unknown) (unknown) blood pressure (units (unknown) date) control. unknown) (unknown) (no (unknown) (unknown) but could be (units (u nknown) date) related to unknown) underlying lung disease and anesthesia for surgery. No (unknown) (no (unknown) (unknown) clear evidence of (units (unknown) date) aspiration. unknown) (unknown) (no (unknown) (unknown) control. (units (unkno wn) date) unknown) (unknown) (no (unknown) (unknown) down trending to (units (unknown) date) 0.041. It likely to unknown) be cardiac demand ischemia. (unknown) (no (unknown) (unknown) fibrosis. She was (units (unknown) date) initially treated unknown) with IV furosemide. O2 need is now down to (unknown) (no (unknown) (unknown) fracture (units (unkno wn) date) unknown) (unknown) (no (unknown) (unknown) household members: (units (unknown) date) significant other unknown) (unknown) (no (unknown) (unknown) hypothyroidism, (units (unknown) date) fibromyalgia, and unknown) ascending aortic aneurysm who was admitted (unknown) (no (unknown) (unknown) overall. Her hope (units (unknown) date) is to be able to go unknown) home at discharge. (unknown) (no (unknown) (unknown) postoperative day (units (unknown) date) 1 from left hip unknown) hemiarthroplasty. (unknown) (no (unknown) (unknown) significant (units (un known) date) shortness of unknown) breath. She is having pain in her hip. She just (unknown) (no (unknown) (unknown) sleep. (units (unkno wn) date) unknown) (unknown) (no (unknown) (unknown) substance use (units ( unknown) date) type: does not use unknown) (unknown) (no (unknown) (unknown) today; this time (units (unknown) date) is exclusive of unknown) procedural time. (unknown) (no (unknown) (unknown) worked with (units (un known) date) physical therapy unknown) and states she was able to ambulate fairly well Result panel 172 (unknown) (no date) (unknown) (unknown) 0 /ul (unkn own) (unknown) (no date) (unknown) (unknown) 0.2 % (unkn own) (unknown) (no date) (unknown) (unknown) 10.4 x10 3/ul (unkn own) (unknown) (no date) (unknown) (unknown) 1000 /ul (unkn own) (unknown) (no date) (unknown) (unknown) 12.8 % (unkn own) (unknown) (no date) (unknown) (unknown) 1300 /ul (unkn own) (unknown) (no date) (unknown) (unknown) 14.7 % (unkn own) (unknown) (no date) (unknown) (unknown) 203 x10 3/ul (unkn own) (unknown) (no date) (unknown) (unknown) 28.6 pg (unkn own) (unknown) (no date) (unknown) (unknown) 3.44 x10 6/ul (unkn own) (unknown) (no date) (unknown) (unknown) 30.3 % (unkn own) (unknown) (no date) (unknown) (unknown) 32.5 % (unkn own) (unknown) (no date) (unknown) (unknown) 5.6 % (unkn own) (unknown) (no date) (unknown) (unknown) 600 /ul (unkn own) (unknown) (no date) (unknown) (unknown) 72.0 % (unkn own) (unknown) (no date) (unknown) (unknown) 72.0 % (unkn own) (unknown) (no date) (unknown) (unknown) 7500 /ul (unkn own) (unknown) (no date) (unknown) (unknown) 88.1 fl (unkn own) (unknown) (no date) (unknown) (unknown) 9.4 % (unkn own) (unknown) (no date) (unknown) (unknown) 9.9 g/dl (unkn own) Result panel 173 (unknown) (no date) (unknown) (unknown) > 60 ml/min (unkn own) (unknown) (no date) (unknown) (unknown) > 60 ml/min (unkn own) (unknown) (no date) (unknown) (unknown) 0.89 mg/dl (unkn own) (unknown) (no date) (unknown) (unknown) 132 mg/dl (unkn own) (unknown) (no date) (unknown) (unknown) 132 mg/dl (unkn own) (unknown) (no date) (unknown) (unknown) 132 mmol/l (unkn own) (unknown) (no date) (unknown) (unknown) 19 mg/dl (unkn own) (unknown) (no date) (unknown) (unknown) 21.3 (units unknown) (unknown) (unknown) (no date) (unknown) (unknown) 27 mmol/l (unkn own) (unknown) (no date) (unknown) (unknown) 3.9 mmol/l (unkn own) (unknown) (no date) (unknown) (unknown) 7.8 mg/dl (unkn own) (unknown) (no date) (unknown) (unknown) 99 mmol/l (unkn own) Result panel 174 (unknown) (no (unknown) (unknown) (no value) (units (unk nown) date) unknown) (unknown) (no (unknown) (unknown) (past 8 hours): (units (unknown) date) unknown) (unknown) (no (unknown) (unknown) 00:03 (units (unkno wn) date) unknown) (unknown) (no (unknown) (unknown) [id number] (units (unkno wn) date) unknown) (unknown) (no (unknown) (unknown) 04:35 03/26/22 (units (unknown) date) unknown) (unknown) (no (unknown) (unknown) 04:35 (units (unkno wn) date) unknown) (unknown) (no (unknown) (unknown) 04:44 04:44 (units (un known) date) unknown) (unknown) (no (unknown) (unknown) 1. Postoperative (units (unknown) date) day 1 from left hip unknown) hemiarthroplasty for left femoral neck (unknown) (no (unknown) (unknown) 03/25/22 (units (unkno wn) date) unknown) (unknown) (no (unknown) (unknown) 03/26/22 04:44 (units (unknown) date) unknown) (unknown) (no (unknown) (unknown) 03/26/22 03/26/22 (units (unknown) date) unknown) (unknown) (no (unknown) (unknown) 03/26/22 (units (unkno wn) date) unknown) (unknown) (no (unknown) (unknown) 2 liters/minute.? (units (unknown) date) Will continue to unknown) monitor.? Etiology is not entirely clear, (unknown) (no (unknown) (unknown) 2. Acute hypoxic (units (unknown) date) respiratory failure unknown) (unknown) (no (unknown) (unknown) 23:31 03/25/22 (units (unknown) date) unknown) (unknown) (no (unknown) (unknown) 23:38 03/26/22 (units (unknown) date) unknown) (unknown) (no (unknown) (unknown) 3. Ascending (units (u nknown) date) aortic aneurysm unknown) (unknown) (no (unknown) (unknown) 4. 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 Depression (units ( unknown) date) unknown) (unknown) (no (unknown) (unknown) 72-year-old female (units (unknown) date) with idiopathic unknown) pulmonary fibrosis, hypertension, (unknown) (no (unknown) (unknown) 8. Hypothyroidism (units (unknown) date) unknown) (unknown) (no (unknown) (unknown) 9. Oliguria (units (un known) date) unknown) (unknown) (no (unknown) (unknown) ABD: Soft, NT/ND, (units (unknown) date) BT present in all 4 unknown) quadrants, no organomegaly or masses (unknown) (no (unknown) (unknown) Age/Sex: 72 / F (units (unknown) date) unknown) (unknown) (no (unknown) (unknown) Appreciate (units (unk nown) date) management per unknown) Orthopedic surgery.? Work on mobilization and pain (unknown) (no (unknown) (unknown) Assessment + Plan (units (unknown) date) narrative: unknown) (unknown) (no (unknown) (unknown) Assessment + Plan (units (unknown) date) unknown) (unknown) (no (unknown) (unknown) BUN 19 H (units (unkno wn) date) unknown) (unknown) (no (unknown) (unknown) BUN/Creatinine (units (unknown) date) Ratio 21.3 unknown) (unknown) (no (unknown) (unknown) Baso # (Auto) 0 (units (unknown) date) unknown) (unknown) (no (unknown) (unknown) Baso % (Auto) 0.2 (units (unknown) date) unknown) (unknown) (no (unknown) (unknown) Blood Pressure (units (unknown) date) 110/40 L unknown) (unknown) (no (unknown) (unknown) Blood Pressure (units (unknown) date) 112/49 L unknown) (unknown) (no (unknown) (unknown) CHEST: Respiratory (units (unknown) date) excursions unknown) symmetric, coarse but CTAB (unknown) (no (unknown) (unknown) CV: RRR, no M/R/G (units (unknown) date) unknown) (unknown) (no (unknown) (unknown) Calcium 7.8 L (units ( unknown) date) unknown) (unknown) (no (unknown) (unknown) Carbon Dioxide 27 (units (unknown) date) unknown) (unknown) (no (unknown) (unknown) Chloride 99 (units (un known) date) unknown) (unknown) (no (unknown) (unknown) Code status (units (un known) date) unknown) (unknown) (no (unknown) (unknown) Continue (units (unkno wn) date) levothyroxine unknown) (unknown) (no (unknown) (unknown) Continue (units (unkno wn) date) outpatient dose of unknown) Lamictal.? She also uses diazepam at bedtime for (unknown) (no (unknown) (unknown) Creatinine 0.89 (units (unknown) date) unknown) (unknown) (no (unknown) (unknown) Critical Care (units ( unknown) date) time: unknown) (unknown) (no (unknown) (unknown) : 1950 (units (unknown) date) Acct:[id number] unknown) (unknown) (no (unknown) (unknown) Date of Service: (units (unknown) date) 03/23/22 unknown) (unknown) (no (unknown) (unknown) Deep Vein (units (unkn own) date) Thrombosis/Pulmonar unknown) y Embolism Present on Admission: No (unknown) (no (unknown) (unknown) Disposition (units (un known) date) unknown) (unknown) (no (unknown) (unknown) EXTR: warm, well (units (unknown) date) perfused, no C/C/E unknown) (unknown) (no (unknown) (unknown) Eos # (Auto) 600 H (units (unknown) date) unknown) (unknown) (no (unknown) (unknown) Eos % (Auto) 5.6 H (units (unknown) date) unknown) (unknown) (no (unknown) (unknown) Estimated GFR > 60 (units (unknown) date) unknown) (unknown) (no (unknown) (unknown) Exam Narrative: (units (unknown) date) unknown) (unknown) (no (unknown) (unknown) Exam (units (unkno wn) date) unknown) (unknown) (no (unknown) (unknown) Fibromyalgia (units (u nknown) date) unknown) (unknown) (no (unknown) (unknown) Fraction of (units (un known) date) Inspired Oxygen 93 unknown) (unknown) (no (unknown) (unknown) Fraction of (units (un known) date) Inspired Oxygen unknown) (unknown) (no (unknown) (unknown) Full (units (unkno wn) date) unknown) (unknown) (no (unknown) (unknown) GEN: Alert and (units (unknown) date) oriented x 3, NAD unknown) (unknown) (no (unknown) (unknown) Glucose 132 H (units ( unknown) date) unknown) (unknown) (no (unknown) (unknown) HEENT:NC, Face (units (unknown) date) symmetric unknown) (unknown) (no (unknown) (unknown) Hct 30.3 L (units (unk nown) date) unknown) (unknown) (no (unknown) (unknown) Hgb 9.9 L (units (unkn own) date) unknown) (unknown) (no (unknown) (unknown) Hypertension (units (u nknown) date) unknown) (unknown) (no (unknown) (unknown) Hypothyroidism (units (unknown) date) unknown) (unknown) (no (unknown) (unknown) I spent a total of (units (unknown) date) [] minutes of unknown) critical care time on this patient's care (unknown) (no (unknown) (unknown) Interval history: (units (unknown) date) unknown) (unknown) (no (unknown) (unknown) [facility] (units (unknown) date) [address] unknown) [place] [address] (unknown) (no (unknown) (unknown) Laboratory Results (units (unknown) date) - last 24 hr unknown) (unknown) (no (unknown) (unknown) Labs (units (unkno wn) date) unknown) (unknown) (no (unknown) (unknown) Labs: (units (unkno wn) date) unknown) (unknown) (no (unknown) (unknown) Lymph # (Auto) (units (unknown) date) 1300 unknown) (unknown) (no (unknown) (unknown) Lymph % (Auto) (units (unknown) date) 12.8 L unknown) (unknown) (no (unknown) (unknown) MCH 28.6 (units (unkno wn) date) unknown) (unknown) (no (unknown) (unknown) MCHC 32.5 (units (unkn own) date) unknown) (unknown) (no (unknown) (unknown) MCV 88.1 (units (unkno wn) date) unknown) (unknown) (no (unknown) (unknown) Measuring 6.4 cm.? (units (unknown) date) She will need close unknown) follow-up.? She is on metoprolol for (unknown) (no (unknown) (unknown) Medical History (units (unknown) date) (Reviewed 03/24/22 unknown) @ 12:05 by Hay Au MD) (unknown) (no (unknown) (unknown) [place] # (Auto) 1000 (units (unknown) date) H unknown) (unknown) (no (unknown) (unknown) [place] % (Auto) 9.4 (units (unknown) date) unknown) (unknown) (no (unknown) (unknown) NEURO: Alert and (units (unknown) date) oriented x 3, unknown) nonfocal (unknown) (no (unknown) (unknown) Narrative (units (unkn own) date) unknown) (unknown) (no (unknown) (unknown) Neut # (Auto) 7500 (units (unknown) date) H unknown) (unknown) (no (unknown) (unknown) Neut % (Auto) 72.0 (units (unknown) date) D unknown) (unknown) (no (unknown) (unknown) No pertinent past (units (unknown) date) surgical history unknown) (unknown) (no (unknown) (unknown) Objective (units (unkn own) date) unknown) (unknown) (no (unknown) (unknown) Oxygen Delivery (units (unknown) date) Method Nasal unknown) Cannula Nasal Cannula (unknown) (no (unknown) (unknown) Oxygen Delivery (units (unknown) date) Method Nasal unknown) Cannula (unknown) (no (unknown) (unknown) Oxygen Flow Rate 2 (units (unknown) date) 1 2 unknown) (unknown) (no (unknown) (unknown) Oxygen Flow Rate 2 (units (unknown) date) 2 unknown) (unknown) (no (unknown) (unknown) Oxygen Flow Rate 2 (units (unknown) date) unknown) (unknown) (no (unknown) (unknown) PFSH (units (unkno wn) date) unknown) (unknown) (no (unknown) (unknown) Patient reportedly (units (unknown) date) had an NSTEMI at unknown) the end of February.? Troponin was 0.050, (unknown) (no (unknown) (unknown) Patient reports (units (unknown) date) she is feeling unknown) fairly well today.? She is not been any (unknown) (no (unknown) (unknown) Patient takes (units ( unknown) date) fentanyl 75 mcg Q unknown) 72 hours.? She is due for a patch changed (unknown) (no (unknown) (unknown) Patient was (units (un known) date) diuresed unknown) yesterday.? She is now having minimal urine output.? (unknown) (no (unknown) (unknown) Patient: (units (unkno wn) date) Elidia Rock unknown) MR#: [id number] (unknown) (no (unknown) (unknown) Pending (units (unkno wn) date) unknown) (unknown) (no (unknown) (unknown) Plt Count 203 (units ( unknown) date) unknown) (unknown) (no (unknown) (unknown) Postoperatively, (units (unknown) date) patient did require unknown) 5 L of oxygen via nasal cannula.? At (unknown) (no (unknown) (unknown) Potassium 3.9 (units ( unknown) date) unknown) (unknown) (no (unknown) (unknown) Progress Note (units ( unknown) date) unknown) (unknown) (no (unknown) (unknown) Prophylaxis (units (un known) date) unknown) (unknown) (no (unknown) (unknown) Provider: (units (unkn own) date) Mounika Pace MD unknown) (unknown) (no (unknown) (unknown) Pulse Oximetry 94 (units (unknown) date) 95 unknown) (unknown) (no (unknown) (unknown) Pulse Oximetry 99 (units (unknown) date) 99 unknown) (unknown) (no (unknown) (unknown) Pulse Rate 57 L (units (unknown) date) unknown) (unknown) (no (unknown) (unknown) Pulse Rate 65 (units ( unknown) date) unknown) (unknown) (no (unknown) (unknown) Quality (units (unkno wn) date) unknown) (unknown) (no (unknown) (unknown) RBC 3.44 L (units (unk nown) date) unknown) (unknown) (no (unknown) (unknown) RDW 14.7 (units (unkno wn) date) unknown) (unknown) (no (unknown) (unknown) Respiratory Rate (units (unknown) date) 16 unknown) (unknown) (no (unknown) (unknown) Respiratory Rate (units (unknown) date) 17 unknown) (unknown) (no (unknown) (unknown) Restrictive lung (units (unknown) date) disease unknown) (unknown) (no (unknown) (unknown) Result Diagrams: (units (unknown) date) unknown) (unknown) (no (unknown) (unknown) SKIN: warm and (units (unknown) date) dry, no rash unknown) (unknown) (no (unknown) (unknown) She is not on any (units (unknown) date) outpatient unknown) medications or inhalers. (unknown) (no (unknown) (unknown) Signed By: (units (unk nown) date) unknown) (unknown) (no (unknown) (unknown) Smoking Status: (units (unknown) date) Former smoker unknown) (unknown) (no (unknown) (unknown) Social History (units (unknown) date) (Reviewed 03/23/22 unknown) @ 16:07 by Liam Colón MD) (unknown) (no (unknown) (unknown) Sodium 132 L (units (u nknown) date) unknown) (unknown) (no (unknown) (unknown) Subjective (units (unk nown) date) unknown) (unknown) (no (unknown) (unknown) Surgical History (units (unknown) date) (Reviewed 03/24/22 unknown) @ 12:05 by Hay Au MD) (unknown) (no (unknown) (unknown) Suspect she is a (units (unknown) date) bit hypovolemic.? unknown) Will give a fluid bolus and monitor. (unknown) (no (unknown) (unknown) Temperature 98.2 F (units (unknown) date) unknown) (unknown) (no (unknown) (unknown) Temperature 98.9 F (units (unknown) date) unknown) (unknown) (no (unknown) (unknown) Time Spent With (units (unknown) date) Patient unknown) (unknown) (no (unknown) (unknown) VTE (units (unkno wn) date) unknown) (unknown) (no (unknown) (unknown) Vital Signs (units (un known) date) unknown) (unknown) (no (unknown) (unknown) WBC 10.4 (units (unkno wn) date) unknown) (unknown) (no (unknown) (unknown) Will start Lovenox (units (unknown) date) unknown) (unknown) (no (unknown) (unknown) [Embedded Image (units (unknown) date) Not Available] unknown) (unknown) (no (unknown) (unknown) after a fall with (units (unknown) date) an acute left unknown) femoral neck fracture.? She is presently (unknown) (no (unknown) (unknown) alcohol intake: (units (unknown) date) current unknown) (unknown) (no (unknown) (unknown) baseline she does (units (unknown) date) not require unknown) oxygen.? Patient has known idiopathic pulmonary (unknown) (no (unknown) (unknown) blood pressure (units (unknown) date) control. unknown) (unknown) (no (unknown) (unknown) but could be (units (u nknown) date) related to unknown) underlying lung disease and anesthesia for surgery.? No (unknown) (no (unknown) (unknown) clear evidence of (units (unknown) date) aspiration. unknown) (unknown) (no (unknown) (unknown) control. (units (unkno wn) date) unknown) (unknown) (no (unknown) (unknown) down trending to (units (unknown) date) 0.041.? It likely unknown) to be cardiac demand ischemia. (unknown) (no (unknown) (unknown) fibrosis.? She was (units (unknown) date) initially treated unknown) with IV furosemide.? O2 need is now down to (unknown) (no (unknown) (unknown) fracture (units (unkno wn) date) unknown) (unknown) (no (unknown) (unknown) household members: (units (unknown) date) significant other unknown) (unknown) (no (unknown) (unknown) hypothyroidism, (units (unknown) date) fibromyalgia, and unknown) ascending aortic aneurysm who was admitted (unknown) (no (unknown) (unknown) overall.? Her hope (units (unknown) date) is to be able to go unknown) home at discharge. (unknown) (no (unknown) (unknown) postoperative day (units (unknown) date) 1 from left hip unknown) hemiarthroplasty. (unknown) (no (unknown) (unknown) significant (units (un known) date) shortness of unknown) breath.? She is having pain in her hip.? She just (unknown) (no (unknown) (unknown) sleep. (units (unkno wn) date) unknown) (unknown) (no (unknown) (unknown) substance use (units ( unknown) date) type: does not use unknown) (unknown) (no (unknown) (unknown) today.? This will (units (unknown) date) be accomplished unknown) (unknown) (no (unknown) (unknown) today; this time (units (unknown) date) is exclusive of unknown) procedural time. (unknown) (no (unknown) (unknown) worked with (units (un known) date) physical therapy unknown) and states she was able to ambulate fairly well Result panel 175 (unknown) (no (unknown) (unknown) (no value) (units (unk nown) date) unknown) (unknown) (no (unknown) (unknown) (1) Status post (units (unknown) date) hip surgery: unknown) (unknown) (no (unknown) (unknown) (past 8 hours): (units (unknown) date) unknown) (unknown) (no (unknown) (unknown) [id number] (units (unkno wn) date) unknown) (unknown) (no (unknown) (unknown) 04:35 03/26/22 (units (unknown) date) unknown) (unknown) (no (unknown) (unknown) 04:44 04:44 (units (un known) date) unknown) (unknown) (no (unknown) (unknown) 08:00 (units (unkno wn) date) unknown) (unknown) (no (unknown) (unknown) 03/26/22 04:44 (units (unknown) date) unknown) (unknown) (no (unknown) (unknown) 03/26/22 03/26/22 (units (unknown) date) unknown) (unknown) (no (unknown) (unknown) 03/26/22 (units (unkno wn) date) unknown) (unknown) (no (unknown) (unknown) 5/5 strength in (units (unknown) date) quadriceps, unknown) hamstrings, DF, PF, EHL on left; 4/5 hip flexors. (unknown) (no (unknown) (unknown) Actual Procedure (units (unknown) date) Side Surgeon unknown) (unknown) (no (unknown) (unknown) Age/Sex: 72 / F (units (unknown) date) unknown) (unknown) (no (unknown) (unknown) Assessment + Plan (units (unknown) date) Post-op unknown) (unknown) (no (unknown) (unknown) Assessment and (units (unknown) date) plan unknown) (unknown) (no (unknown) (unknown) BUN 19 H (units (unkno wn) date) unknown) (unknown) (no (unknown) (unknown) BUN/Creatinine (units (unknown) date) Ratio 21.3 unknown) (unknown) (no (unknown) (unknown) Baso # (Auto) 0 (units (unknown) date) unknown) (unknown) (no (unknown) (unknown) Baso % (Auto) 0.2 (units (unknown) date) unknown) (unknown) (no (unknown) (unknown) Blood Pressure (units (unknown) date) 110/40 L 107/47 L unknown) (unknown) (no (unknown) (unknown) Calcium 7.8 L (units ( unknown) date) unknown) (unknown) (no (unknown) (unknown) Carbon Dioxide 27 (units (unknown) date) unknown) (unknown) (no (unknown) (unknown) Chloride 99 (units (un known) date) unknown) (unknown) (no (unknown) (unknown) Creatinine 0.89 (units (unknown) date) unknown) (unknown) (no (unknown) (unknown) : 1950 (units (unknown) date) Acct:[id number] unknown) (unknown) (no (unknown) (unknown) Date Patient Seen: (units (unknown) date) 03/26/22 unknown) (unknown) (no (unknown) (unknown) Date of Service: (units (unknown) date) 03/23/22 unknown) (unknown) (no (unknown) (unknown) Deep Vein (units (unkn own) date) Thrombosis/Pulmonar unknown) y Embolism Present on Admission: No (unknown) (no (unknown) (unknown) Eos # (Auto) 600 H (units (unknown) date) unknown) (unknown) (no (unknown) (unknown) Eos % (Auto) 5.6 H (units (unknown) date) unknown) (unknown) (no (unknown) (unknown) Estimated GFR > 60 (units (unknown) date) unknown) (unknown) (no (unknown) (unknown) Exam Narrative: (units (unknown) date) unknown) (unknown) (no (unknown) (unknown) Exam (units (unkno wn) date) unknown) (unknown) (no (unknown) (unknown) Fibromyalgia (units (u nknown) date) unknown) (unknown) (no (unknown) (unknown) Fraction of (units (un known) date) Inspired Oxygen 93 unknown) (unknown) (no (unknown) (unknown) Glucose 132 H (units ( unknown) date) unknown) (unknown) (no (unknown) (unknown) Hct 30.3 L (units (unk nown) date) unknown) (unknown) (no (unknown) (unknown) Hgb 9.9 L (units (unkn own) date) unknown) (unknown) (no (unknown) (unknown) Hypertension (units (u nknown) date) unknown) (unknown) (no (unknown) (unknown) Hypothyroidism (units (unknown) date) unknown) (unknown) (no (unknown) (unknown) Interval history: (units (unknown) date) unknown) (unknown) (no (unknown) (unknown) [facility] (units (unknown) date) [address] unknown) [place] [address] (unknown) (no (unknown) (unknown) Laboratory Results (units (unknown) date) - last 24 hr unknown) (unknown) (no (unknown) (unknown) Labs (units (unkno wn) date) unknown) (unknown) (no (unknown) (unknown) Labs: (units (unkno wn) date) unknown) (unknown) (no (unknown) (unknown) Lymph # (Auto) (units (unknown) date) 1300 unknown) (unknown) (no (unknown) (unknown) Lymph % (Auto) (units (unknown) date) 12.8 L unknown) (unknown) (no (unknown) (unknown) MCH 28.6 (units (unkno wn) date) unknown) (unknown) (no (unknown) (unknown) MCHC 32.5 (units (unkn own) date) unknown) (unknown) (no (unknown) (unknown) MCV 88.1 (units (unkno wn) date) unknown) (unknown) (no (unknown) (unknown) Medical History (units (unknown) date) (Reviewed 03/24/22 unknown) @ 12:05 by Hay Au MD) (unknown) (no (unknown) (unknown) [place] # (Auto) 1000 (units (unknown) date) H unknown) (unknown) (no (unknown) (unknown) [place] % (Auto) 9.4 (units (unknown) date) unknown) (unknown) (no (unknown) (unknown) Narrative (units (unkn own) date) unknown) (unknown) (no (unknown) (unknown) Neut # (Auto) 7500 (units (unknown) date) H unknown) (unknown) (no (unknown) (unknown) Neut % (Auto) 72.0 (units (unknown) date) D unknown) (unknown) (no (unknown) (unknown) No pertinent past (units (unknown) date) surgical history unknown) (unknown) (no (unknown) (unknown) Objective (units (unkn own) date) unknown) (unknown) (no (unknown) (unknown) Operation Date: (units (unknown) date) 03/24/22 18:00 unknown) (unknown) (no (unknown) (unknown) Oxygen Delivery (units (unknown) date) Method Nasal unknown) Cannula (unknown) (no (unknown) (unknown) Oxygen Flow Rate 2 (units (unknown) date) 2 2 unknown) (unknown) (no (unknown) (unknown) Oxygen Flow Rate 2 (units (unknown) date) unknown) (unknown) (no (unknown) (unknown) PFSH (units (unkno wn) date) unknown) (unknown) (no (unknown) (unknown) Patient: (units (unkno wn) date) Elidia Rock unknown) MR#: [id number] (unknown) (no (unknown) (unknown) Plt Count 203 (units ( unknown) date) unknown) (unknown) (no (unknown) (unknown) Postoperative (units ( unknown) date) unknown) (unknown) (no (unknown) (unknown) Potassium 3.9 (units ( unknown) date) unknown) (unknown) (no (unknown) (unknown) Procedures (units (unk nown) date) unknown) (unknown) (no (unknown) (unknown) Procedures: (units (un known) date) unknown) (unknown) (no (unknown) (unknown) Progress Note (units ( unknown) date) unknown) (unknown) (no (unknown) (unknown) Provider: (units (unkn own) date) Sis Quinonez P.A-C unknown) (unknown) (no (unknown) (unknown) Pt sitting up in (units (unknown) date) chair comfortably. unknown) Per CM notes, it appears that pt will d/c (unknown) (no (unknown) (unknown) Pulse Oximetry 99 (units (unknown) date) 99 96 unknown) (unknown) (no (unknown) (unknown) Pulse Rate 57 L 56 (units (unknown) date) L unknown) (unknown) (no (unknown) (unknown) Quality (units (unkno wn) date) unknown) (unknown) (no (unknown) (unknown) RBC 3.44 L (units (unk nown) date) unknown) (unknown) (no (unknown) (unknown) RDW 14.7 (units (unkno wn) date) unknown) (unknown) (no (unknown) (unknown) Respiratory Rate (units (unknown) date) 17 21 unknown) (unknown) (no (unknown) (unknown) Restrictive lung (units (unknown) date) disease unknown) (unknown) (no (unknown) (unknown) Result Diagrams: (units (unknown) date) unknown) (unknown) (no (unknown) (unknown) Sensation to light (units (unknown) date) touch intact unknown) throughout LLE. Quarter-sized area of bloody (unknown) (no (unknown) (unknown) Signed By: (units (unk nown) date) unknown) (unknown) (no (unknown) (unknown) Smoking Status: (units (unknown) date) Former smoker unknown) (unknown) (no (unknown) (unknown) Social History (units (unknown) date) (Reviewed 03/23/22 unknown) @ 16:07 by Liam Colón MD) (unknown) (no (unknown) (unknown) Sodium 132 L (units (u nknown) date) unknown) (unknown) (no (unknown) (unknown) Subjective (units (unk nown) date) unknown) (unknown) (no (unknown) (unknown) Surgical History (units (unknown) date) (Reviewed 03/24/22 unknown) @ 12:05 by Hay Au MD) (unknown) (no (unknown) (unknown) Temperature 98.2 F (units (unknown) date) 98.6 F unknown) (unknown) (no (unknown) (unknown) Time Patient Seen: (units (unknown) date) 09:19 unknown) (unknown) (no (unknown) (unknown) VTE (units (unkno wn) date) unknown) (unknown) (no (unknown) (unknown) Vital Signs (units (un known) date) unknown) (unknown) (no (unknown) (unknown) WBC 10.4 (units (unkno wn) date) unknown) (unknown) (no (unknown) (unknown) [Embedded Image (units (unknown) date) Not Available] unknown) (unknown) (no (unknown) (unknown) alcohol intake: (units (unknown) date) current unknown) (unknown) (no (unknown) (unknown) cardiology on (units ( unknown) date) 03/30. unknown) (unknown) (no (unknown) (unknown) drainage on (units (un known) date) Aquacel, otherwise unknown) CDI. Calves soft, compressible, nontender. (unknown) (no (unknown) (unknown) home tomorrow w/ (units (unknown) date) caregiver and home unknown) health help. Pt states she has appt w/ (unknown) (no (unknown) (unknown) household members: (units (unknown) date) significant other unknown) (unknown) (no (unknown) (unknown) p Hip (units (unkno wn) date) Hemiarthroplasty unknown) Sai Left Hay Au MD (unknown) (no (unknown) (unknown) substance use (units ( unknown) date) type: does not use unknown) Result panel 176 (unknown) (no (unknown) (unknown) (no value) (units (unk nown) date) unknown) (unknown) (no (unknown) (unknown) (1) Status post (units (unknown) date) hip surgery: unknown) (unknown) (no (unknown) (unknown) (past 8 hours): (units (unknown) date) unknown) (unknown) (no (unknown) (unknown) [id number] (units (unkno wn) date) unknown) (unknown) (no (unknown) (unknown) 04:35 03/26/22 (units (unknown) date) unknown) (unknown) (no (unknown) (unknown) 04:44 04:44 (units (un known) date) unknown) (unknown) (no (unknown) (unknown) 08:00 (units (unkno wn) date) unknown) (unknown) (no (unknown) (unknown) 1)? Weightbearing (units (unknown) date) as tolerated LLE.? unknown) Posterior hip precautions (no flexion w/ (unknown) (no (unknown) (unknown) 03/26/22 04:44 (units (unknown) date) unknown) (unknown) (no (unknown) (unknown) 03/26/22 0924 (units ( unknown) date) unknown) (unknown) (no (unknown) (unknown) 03/26/22 03/26/22 (units (unknown) date) unknown) (unknown) (no (unknown) (unknown) 03/26/22 (units (unkno wn) date) unknown) (unknown) (no (unknown) (unknown) 2)? Patient may (units (unknown) date) shower over the unknown) dressing.? If water gets underneath the (unknown) (no (unknown) (unknown) 3)? Aspirin, 81 mg (units (unknown) date) b.i.d. for 4 weeks unknown) for DVT prophylaxis. (If cardiology (unknown) (no (unknown) (unknown) 4)? F/u w/ PA in (units (unknown) date) ortho clinic in 2 unknown) weeks for wound check/staple removal.? F/u w/ (unknown) (no (unknown) (unknown) 5/5 strength in (units (unknown) date) quadriceps, unknown) hamstrings, DF, PF, EHL on left; 4/5 hip flexors. (unknown) (no (unknown) (unknown) Actual Procedure (units (unknown) date) Side Surgeon unknown) (unknown) (no (unknown) (unknown) Age/Sex: 72 / F (units (unknown) date) unknown) (unknown) (no (unknown) (unknown) Assessment + Plan (units (unknown) date) Post-op unknown) (unknown) (no (unknown) (unknown) Assessment and (units (unknown) date) Plan narrative: unknown) (unknown) (no (unknown) (unknown) Assessment and (units (unknown) date) plan unknown) (unknown) (no (unknown) (unknown) BUN 19 H (units (unkno wn) date) unknown) (unknown) (no (unknown) (unknown) BUN/Creatinine (units (unknown) date) Ratio 21.3 unknown) (unknown) (no (unknown) (unknown) Baso # (Auto) 0 (units (unknown) date) unknown) (unknown) (no (unknown) (unknown) Baso % (Auto) 0.2 (units (unknown) date) unknown) (unknown) (no (unknown) (unknown) Blood Pressure (units (unknown) date) 110/40 L 107/47 L unknown) (unknown) (no (unknown) (unknown) Calcium 7.8 L (units ( unknown) date) unknown) (unknown) (no (unknown) (unknown) Carbon Dioxide 27 (units (unknown) date) unknown) (unknown) (no (unknown) (unknown) Chloride 99 (units (un known) date) unknown) (unknown) (no (unknown) (unknown) Creatinine 0.89 (units (unknown) date) unknown) (unknown) (no (unknown) (unknown) : 1950 (units (unknown) date) Acct:[id number] unknown) (unknown) (no (unknown) (unknown) Date Patient Seen: (units (unknown) date) 03/26/22 unknown) (unknown) (no (unknown) (unknown) Date of Service: (units (unknown) date) 03/23/22 unknown) (unknown) (no (unknown) (unknown) Deep Vein (units (unkn own) date) Thrombosis/Pulmonar unknown) y Embolism Present on Admission: No (unknown) (no (unknown) (unknown) Dr Au in 6 (units (unknown) date) weeks for xrays and unknown) review of progress. (unknown) (no (unknown) (unknown) Eos # (Auto) 600 H (units (unknown) date) unknown) (unknown) (no (unknown) (unknown) Eos % (Auto) 5.6 H (units (unknown) date) unknown) (unknown) (no (unknown) (unknown) Estimated GFR > 60 (units (unknown) date) unknown) (unknown) (no (unknown) (unknown) Exam Narrative: (units (unknown) date) unknown) (unknown) (no (unknown) (unknown) Exam (units (unkno wn) date) unknown) (unknown) (no (unknown) (unknown) Fibromyalgia (units (u nknown) date) unknown) (unknown) (no (unknown) (unknown) Fraction of (units (un known) date) Inspired Oxygen 93 unknown) (unknown) (no (unknown) (unknown) Glucose 132 H (units ( unknown) date) unknown) (unknown) (no (unknown) (unknown) Hct 30.3 L (units (unk nown) date) unknown) (unknown) (no (unknown) (unknown) Hgb 9.9 L (units (unkn own) date) unknown) (unknown) (no (unknown) (unknown) Hypertension (units (u nknown) date) unknown) (unknown) (no (unknown) (unknown) Hypothyroidism (units (unknown) date) unknown) (unknown) (no (unknown) (unknown) Interval history: (units (unknown) date) unknown) (unknown) (no (unknown) (unknown) [facility] (units (unknown) date) [address] unknown) [place] [address] (unknown) (no (unknown) (unknown) Laboratory Results (units (unknown) date) - last 24 hr unknown) (unknown) (no (unknown) (unknown) Labs (units (unkno wn) date) unknown) (unknown) (no (unknown) (unknown) Labs: (units (unkno wn) date) unknown) (unknown) (no (unknown) (unknown) Lymph # (Auto) (units (unknown) date) 1300 unknown) (unknown) (no (unknown) (unknown) Lymph % (Auto) (units (unknown) date) 12.8 L unknown) (unknown) (no (unknown) (unknown) MCH 28.6 (units (unkno wn) date) unknown) (unknown) (no (unknown) (unknown) MCHC 32.5 (units (unkn own) date) unknown) (unknown) (no (unknown) (unknown) MCV 88.1 (units (unkno wn) date) unknown) (unknown) (no (unknown) (unknown) Medical History (units (unknown) date) (Reviewed 03/24/22 unknown) @ 12:05 by Hay Au MD) (unknown) (no (unknown) (unknown) [place] # (Auto) 1000 (units (unknown) date) H unknown) (unknown) (no (unknown) (unknown) [place] % (Auto) 9.4 (units (unknown) date) unknown) (unknown) (no (unknown) (unknown) Narrative (units (unkn own) date) unknown) (unknown) (no (unknown) (unknown) Neut # (Auto) 7500 (units (unknown) date) H unknown) (unknown) (no (unknown) (unknown) Neut % (Auto) 72.0 (units (unknown) date) D unknown) (unknown) (no (unknown) (unknown) No pertinent past (units (unknown) date) surgical history unknown) (unknown) (no (unknown) (unknown) Objective (units (unkn own) date) unknown) (unknown) (no (unknown) (unknown) Operation Date: (units (unknown) date) 03/24/22 18:00 unknown) (unknown) (no (unknown) (unknown) Oxygen Delivery (units (unknown) date) Method Nasal unknown) Cannula (unknown) (no (unknown) (unknown) Oxygen Flow Rate 2 (units (unknown) date) 2 2 unknown) (unknown) (no (unknown) (unknown) Oxygen Flow Rate 2 (units (unknown) date) unknown) (unknown) (no (unknown) (unknown) PFSH (units (unkno wn) date) unknown) (unknown) (no (unknown) (unknown) Patient: (units (unkno wn) date) Elidia Rock unknown) MR#: [id number] (unknown) (no (unknown) (unknown) Plt Count 203 (units ( unknown) date) unknown) (unknown) (no (unknown) (unknown) Postoperative day: (units (unknown) date) 2 unknown) (unknown) (no (unknown) (unknown) Postoperative (units ( unknown) date) unknown) (unknown) (no (unknown) (unknown) Potassium 3.9 (units ( unknown) date) unknown) (unknown) (no (unknown) (unknown) Procedures (units (unk nown) date) unknown) (unknown) (no (unknown) (unknown) Procedures: (units (un known) date) unknown) (unknown) (no (unknown) (unknown) Progress Note (units ( unknown) date) unknown) (unknown) (no (unknown) (unknown) Provider: (units (unkn own) date) Sis Quinonez P.A-C unknown) (unknown) (no (unknown) (unknown) Pt sitting up in (units (unknown) date) chair comfortably. unknown) Per CM notes, it appears that pt will d/c (unknown) (no (unknown) (unknown) Pulse Oximetry 99 (units (unknown) date) 99 96 unknown) (unknown) (no (unknown) (unknown) Pulse Rate 57 L 56 (units (unknown) date) L unknown) (unknown) (no (unknown) (unknown) Quality (units (unkno wn) date) unknown) (unknown) (no (unknown) (unknown) RBC 3.44 L (units (unk nown) date) unknown) (unknown) (no (unknown) (unknown) RDW 14.7 (units (unkno wn) date) unknown) (unknown) (no (unknown) (unknown) Respiratory Rate (units (unknown) date) 17 21 unknown) (unknown) (no (unknown) (unknown) Restrictive lung (units (unknown) date) disease unknown) (unknown) (no (unknown) (unknown) Result Diagrams: (units (unknown) date) unknown) (unknown) (no (unknown) (unknown) Sensation to light (units (unknown) date) touch intact unknown) throughout LLE. Quarter-sized area of bloody (unknown) (no (unknown) (unknown) Signed (units (unkno wn) date) By:<Electronically unknown) signed by Sis Romo Beh> (unknown) (no (unknown) (unknown) Smoking Status: (units (unknown) date) Former smoker unknown) (unknown) (no (unknown) (unknown) Social History (units (unknown) date) (Reviewed 03/23/22 unknown) @ 16:07 by Liam Colón MD) (unknown) (no (unknown) (unknown) Sodium 132 L (units (u nknown) date) unknown) (unknown) (no (unknown) (unknown) Subjective (units (unk nown) date) unknown) (unknown) (no (unknown) (unknown) Surgical History (units (unknown) date) (Reviewed 03/24/22 unknown) @ 12:05 by Hay Au MD) (unknown) (no (unknown) (unknown) Temperature 98.2 F (units (unknown) date) 98.6 F unknown) (unknown) (no (unknown) (unknown) Time Patient Seen: (units (unknown) date) 09:19 unknown) (unknown) (no (unknown) (unknown) VTE (units (unkno wn) date) unknown) (unknown) (no (unknown) (unknown) Vital Signs (units (un known) date) unknown) (unknown) (no (unknown) (unknown) WBC 10.4 (units (unkno wn) date) unknown) (unknown) (no (unknown) (unknown) [Embedded Image (units (unknown) date) Not Available] unknown) (unknown) (no (unknown) (unknown) adduction and (units ( unknown) date) internal rotation). unknown) (unknown) (no (unknown) (unknown) alcohol intake: (units (unknown) date) current unknown) (unknown) (no (unknown) (unknown) cardiology on (units ( unknown) date) 03/30. unknown) (unknown) (no (unknown) (unknown) completely dry.? (units (unknown) date) Otherwise, the unknown) dressing will be removed at the 1st (unknown) (no (unknown) (unknown) drainage on (units (un known) date) Aquacel, otherwise unknown) CDI. Calves soft, compressible, nontender. (unknown) (no (unknown) (unknown) dressing, please (units (unknown) date) remove the dressing unknown) completely and ensure that the incision is (unknown) (no (unknown) (unknown) elects to put pt (units (unknown) date) on a different unknown) blood thinner, ASA can be d/c'd earlier). (unknown) (no (unknown) (unknown) home tomorrow w/ (units (unknown) date) caregiver and home unknown) health help. Pt states she has appt w/ (unknown) (no (unknown) (unknown) household members: (units (unknown) date) significant other unknown) (unknown) (no (unknown) (unknown) p Hip (units (unkno wn) date) Hemiarthroplasty unknown) Sai Left aHy uA MD (unknown) (no (unknown) (unknown) postoperative (units ( unknown) date) visit in 2 weeks.? unknown) (unknown) (no (unknown) (unknown) substance use (units ( unknown) date) type: does not use unknown) Result panel 177 (unknown) (no (unknown) (unknown) (no value) (units (unk nown) date) unknown) (unknown) (no (unknown) (unknown) (past 8 hours): (units (unknown) date) unknown) (unknown) (no (unknown) (unknown) 00:03 (units (unkno wn) date) unknown) (unknown) (no (unknown) (unknown) [id number] (units (unkno wn) date) unknown) (unknown) (no (unknown) (unknown) 04:35 03/26/22 (units (unknown) date) unknown) (unknown) (no (unknown) (unknown) 04:35 (units (unkno wn) date) unknown) (unknown) (no (unknown) (unknown) 04:44 04:44 (units (un known) date) unknown) (unknown) (no (unknown) (unknown) 1. Postoperative (units (unknown) date) day 2 from left hip unknown) hemiarthroplasty for left femoral neck (unknown) (no (unknown) (unknown) 03/25/22 (units (unkno wn) date) unknown) (unknown) (no (unknown) (unknown) 03/26/22 04:44 (units (unknown) date) unknown) (unknown) (no (unknown) (unknown) 03/26/22 03/26/22 (units (unknown) date) unknown) (unknown) (no (unknown) (unknown) 03/26/22 1823 (units ( unknown) date) unknown) (unknown) (no (unknown) (unknown) 03/26/22 (units (unkno wn) date) unknown) (unknown) (no (unknown) (unknown) 2 liters/minute.? (units (unknown) date) Will continue to unknown) monitor.? Etiology is not entirely clear, (unknown) (no (unknown) (unknown) 2. Acute hypoxic (units (unknown) date) respiratory failure unknown) (unknown) (no (unknown) (unknown) 23:31 03/25/22 (units (unknown) date) unknown) (unknown) (no (unknown) (unknown) 23:38 03/26/22 (units (unknown) date) unknown) (unknown) (no (unknown) (unknown) 3. Ascending (units (u nknown) date) aortic aneurysm unknown) (unknown) (no (unknown) (unknown) 4. 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 Depression (units ( unknown) date) unknown) (unknown) (no (unknown) (unknown) 72-year-old female (units (unknown) date) with idiopathic unknown) pulmonary fibrosis, hypertension, (unknown) (no (unknown) (unknown) 8. Hypothyroidism (units (unknown) date) unknown) (unknown) (no (unknown) (unknown) 9. Oliguria (units (un known) date) unknown) (unknown) (no (unknown) (unknown) ABD: Soft, NT/ND, (units (unknown) date) BT present in all 4 unknown) quadrants, no organomegaly or masses (unknown) (no (unknown) (unknown) Age/Sex: 72 / F (units (unknown) date) unknown) (unknown) (no (unknown) (unknown) Appreciate (units (unk nown) date) management per unknown) Orthopedic surgery.? Work on mobilization and pain (unknown) (no (unknown) (unknown) Assessment + Plan (units (unknown) date) narrative: unknown) (unknown) (no (unknown) (unknown) Assessment + Plan (units (unknown) date) unknown) (unknown) (no (unknown) (unknown) BUN 19 H (units (unkno wn) date) unknown) (unknown) (no (unknown) (unknown) BUN/Creatinine (units (unknown) date) Ratio 21.3 unknown) (unknown) (no (unknown) (unknown) Baso # (Auto) 0 (units (unknown) date) unknown) (unknown) (no (unknown) (unknown) Baso % (Auto) 0.2 (units (unknown) date) unknown) (unknown) (no (unknown) (unknown) Blood Pressure (units (unknown) date) 110/40 L unknown) (unknown) (no (unknown) (unknown) Blood Pressure (units (unknown) date) 112/49 L unknown) (unknown) (no (unknown) (unknown) CHEST: Respiratory (units (unknown) date) excursions unknown) symmetric, coarse but CTAB (unknown) (no (unknown) (unknown) CV: RRR, no M/R/G (units (unknown) date) unknown) (unknown) (no (unknown) (unknown) Calcium 7.8 L (units ( unknown) date) unknown) (unknown) (no (unknown) (unknown) Carbon Dioxide 27 (units (unknown) date) unknown) (unknown) (no (unknown) (unknown) Chloride 99 (units (un known) date) unknown) (unknown) (no (unknown) (unknown) Code status (units (un known) date) unknown) (unknown) (no (unknown) (unknown) Continue Lovenox (units (unknown) date) unknown) (unknown) (no (unknown) (unknown) Continue (units (unkno wn) date) levothyroxine unknown) (unknown) (no (unknown) (unknown) Continue (units (unkno wn) date) outpatient dose of unknown) Lamictal.? She also uses diazepam at bedtime for (unknown) (no (unknown) (unknown) Creatinine 0.89 (units (unknown) date) unknown) (unknown) (no (unknown) (unknown) Critical Care (units ( unknown) date) time: unknown) (unknown) (no (unknown) (unknown) : 1950 (units (unknown) date) Acct:[id number] unknown) (unknown) (no (unknown) (unknown) Date of Service: (units (unknown) date) 03/23/22 unknown) (unknown) (no (unknown) (unknown) Deep Vein (units (unkn own) date) Thrombosis/Pulmonar unknown) y Embolism Present on Admission: No (unknown) (no (unknown) (unknown) Disposition (units (un known) date) unknown) (unknown) (no (unknown) (unknown) EXTR: warm, well (units (unknown) date) perfused, no C/C/E unknown) (unknown) (no (unknown) (unknown) Eos # (Auto) 600 H (units (unknown) date) unknown) (unknown) (no (unknown) (unknown) Eos % (Auto) 5.6 H (units (unknown) date) unknown) (unknown) (no (unknown) (unknown) Estimated GFR > 60 (units (unknown) date) unknown) (unknown) (no (unknown) (unknown) Exam Narrative: (units (unknown) date) unknown) (unknown) (no (unknown) (unknown) Exam (units (unkno wn) date) unknown) (unknown) (no (unknown) (unknown) Fibromyalgia (units (u nknown) date) unknown) (unknown) (no (unknown) (unknown) Fraction of (units (un known) date) Inspired Oxygen 93 unknown) (unknown) (no (unknown) (unknown) Fraction of (units (un known) date) Inspired Oxygen unknown) (unknown) (no (unknown) (unknown) [place] sodas (units (u nknown) date) today. Urine output unknown) remains 125 cc. (unknown) (no (unknown) (unknown) Full (units (unkno wn) date) unknown) (unknown) (no (unknown) (unknown) GEN: Alert and (units (unknown) date) oriented x 3, NAD unknown) (unknown) (no (unknown) (unknown) Glucose 132 H (units ( unknown) date) unknown) (unknown) (no (unknown) (unknown) HEENT:NC, Face (units (unknown) date) symmetric unknown) (unknown) (no (unknown) (unknown) Hct 30.3 L (units (unk nown) date) unknown) (unknown) (no (unknown) (unknown) Hgb 9.9 L (units (unkn own) date) unknown) (unknown) (no (unknown) (unknown) Hypertension (units (u nknown) date) unknown) (unknown) (no (unknown) (unknown) Hypothyroidism (units (unknown) date) unknown) (unknown) (no (unknown) (unknown) I spent a total of (units (unknown) date) [] minutes of unknown) critical care time on this patient's care (unknown) (no (unknown) (unknown) Interval history: (units (unknown) date) unknown) (unknown) (no (unknown) (unknown) [facility] (units (unknown) date) [address] unknown) [place] [address] (unknown) (no (unknown) (unknown) L bolus of IV (units ( unknown) date) fluids followed by unknown) maintenance fluids. Should she develop signs (unknown) (no (unknown) (unknown) Laboratory Results (units (unknown) date) - last 24 hr unknown) (unknown) (no (unknown) (unknown) Labs (units (unkno wn) date) unknown) (unknown) (no (unknown) (unknown) Labs: (units (unkno wn) date) unknown) (unknown) (no (unknown) (unknown) Lymph # (Auto) (units (unknown) date) 1300 unknown) (unknown) (no (unknown) (unknown) Lymph % (Auto) (units (unknown) date) 12.8 L unknown) (unknown) (no (unknown) (unknown) MCH 28.6 (units (unkno wn) date) unknown) (unknown) (no (unknown) (unknown) MCHC 32.5 (units (unkn own) date) unknown) (unknown) (no (unknown) (unknown) MCV 88.1 (units (unkno wn) date) unknown) (unknown) (no (unknown) (unknown) Measuring 6.4 cm.? (units (unknown) date) She will need close unknown) follow-up.? She is on metoprolol for (unknown) (no (unknown) (unknown) Medical History (units (unknown) date) (Reviewed 03/24/22 unknown) @ 12:05 by Hay Au MD) (unknown) (no (unknown) (unknown) [place] # (Auto) 1000 (units (unknown) date) H unknown) (unknown) (no (unknown) (unknown) [place] % (Auto) 9.4 (units (unknown) date) unknown) (unknown) (no (unknown) (unknown) NEURO: Alert and (units (unknown) date) oriented x 3, unknown) nonfocal (unknown) (no (unknown) (unknown) Narrative (units (unkn own) date) unknown) (unknown) (no (unknown) (unknown) Neut # (Auto) 7500 (units (unknown) date) H unknown) (unknown) (no (unknown) (unknown) Neut % (Auto) 72.0 (units (unknown) date) D unknown) (unknown) (no (unknown) (unknown) No pertinent past (units (unknown) date) surgical history unknown) (unknown) (no (unknown) (unknown) Objective (units (unkn own) date) unknown) (unknown) (no (unknown) (unknown) Oxygen Delivery (units (unknown) date) Method Nasal unknown) Cannula Nasal Cannula (unknown) (no (unknown) (unknown) Oxygen Delivery (units (unknown) date) Method Nasal unknown) Cannula (unknown) (no (unknown) (unknown) Oxygen Flow Rate 2 (units (unknown) date) 1 2 unknown) (unknown) (no (unknown) (unknown) Oxygen Flow Rate 2 (units (unknown) date) 2 unknown) (unknown) (no (unknown) (unknown) Oxygen Flow Rate 2 (units (unknown) date) unknown) (unknown) (no (unknown) (unknown) [facility] (units (unkno wn) date) unknown) (unknown) (no (unknown) (unknown) Patient reportedly (units (unknown) date) had an NSTEMI at unknown) the end of February.? Troponin was 0.050, (unknown) (no (unknown) (unknown) Patient reports (units (unknown) date) she is feeling unknown) fairly well today.? She is not been any (unknown) (no (unknown) (unknown) Patient takes (units ( unknown) date) fentanyl 75 mcg Q unknown) 72 hours.? Patch was changed yesterday. (unknown) (no (unknown) (unknown) Patient was (units (unk nown) date) diuresed on unknown) March 24.? Despite a couple of boluses yesterday she (unknown) (no (unknown) (unknown) Patient: (units (unkno wn) date) Elidia Rock unknown) MR#: [id number] (unknown) (no (unknown) (unknown) Plt Count 203 (units ( unknown) date) unknown) (unknown) (no (unknown) (unknown) Possibly home (units ( unknown) date) tomorrow. unknown) (unknown) (no (unknown) (unknown) Postoperatively, (units (unknown) date) patient did require unknown) 5 L of oxygen via nasal cannula.? At (unknown) (no (unknown) (unknown) Potassium 3.9 (units ( unknown) date) unknown) (unknown) (no (unknown) (unknown) Progress Note (units ( unknown) date) unknown) (unknown) (no (unknown) (unknown) Prophylaxis (units (un known) date) unknown) (unknown) (no (unknown) (unknown) Provider: (units (unkn own) date) Mounika Pace MD unknown) (unknown) (no (unknown) (unknown) Pulse Oximetry 94 (units (unknown) date) 95 unknown) (unknown) (no (unknown) (unknown) Pulse Oximetry 99 (units (unknown) date) 99 unknown) (unknown) (no (unknown) (unknown) Pulse Rate 57 L (units (unknown) date) unknown) (unknown) (no (unknown) (unknown) Pulse Rate 65 (units ( unknown) date) unknown) (unknown) (no (unknown) (unknown) Quality (units (unkno wn) date) unknown) (unknown) (no (unknown) (unknown) RBC 3.44 L (units (unk nown) date) unknown) (unknown) (no (unknown) (unknown) RDW 14.7 (units (unkno wn) date) unknown) (unknown) (no (unknown) (unknown) Respiratory Rate (units (unknown) date) 16 unknown) (unknown) (no (unknown) (unknown) Respiratory Rate (units (unknown) date) 17 unknown) (unknown) (no (unknown) (unknown) Restrictive lung (units (unknown) date) disease unknown) (unknown) (no (unknown) (unknown) Result Diagrams: (units (unknown) date) unknown) (unknown) (no (unknown) (unknown) SKIN: warm and (units (unknown) date) dry, no rash unknown) (unknown) (no (unknown) (unknown) She is not on any (units (unknown) date) outpatient unknown) medications or inhalers. (unknown) (no (unknown) (unknown) Signed (units (unkno wn) date) By:<Electronically unknown) signed by Mounika Pace MD> (unknown) (no (unknown) (unknown) Smoking Status: (units (unknown) date) Former smoker unknown) (unknown) (no (unknown) (unknown) Social History (units (unknown) date) (Reviewed 03/23/22 unknown) @ 16:07 by Liam Colón MD) (unknown) (no (unknown) (unknown) Sodium 132 L (units (u nknown) date) unknown) (unknown) (no (unknown) (unknown) Subjective (units (unk nown) date) unknown) (unknown) (no (unknown) (unknown) Surgical History (units (unknown) date) (Reviewed 03/24/22 unknown) @ 12:05 by Hay Au MD) (unknown) (no (unknown) (unknown) Temperature 98.2 F (units (unknown) date) unknown) (unknown) (no (unknown) (unknown) Temperature 98.9 F (units (unknown) date) unknown) (unknown) (no (unknown) (unknown) Time Spent With (units (unknown) date) Patient unknown) (unknown) (no (unknown) (unknown) VTE (units (unkno wn) date) unknown) (unknown) (no (unknown) (unknown) Vital Signs (units (un known) date) unknown) (unknown) (no (unknown) (unknown) WBC 10.4 (units (unkno wn) date) unknown) (unknown) (no (unknown) (unknown) [Embedded Image (units (unknown) date) Not Available] unknown) (unknown) (no (unknown) (unknown) after a fall with (units (unknown) date) an acute left unknown) femoral neck fracture.? She is presently (unknown) (no (unknown) (unknown) alcohol intake: (units (unknown) date) current unknown) (unknown) (no (unknown) (unknown) baseline she does (units (unknown) date) not require unknown) oxygen.? Patient has known idiopathic pulmonary (unknown) (no (unknown) (unknown) blood pressure (units (unknown) date) control. unknown) (unknown) (no (unknown) (unknown) but could be (units (u nknown) date) related to unknown) underlying lung disease and anesthesia for surgery.? No (unknown) (no (unknown) (unknown) clear evidence of (units (unknown) date) aspiration. Will unknown) have RT perform a desat study. (unknown) (no (unknown) (unknown) continues to be (units (unknown) date) hypovolemic. Her unknown) oral intake remains marginal. Will give a 1 (unknown) (no (unknown) (unknown) control. Patient's (units (unknown) date) goal is to return unknown) home with home health. Her partner is a (unknown) (no (unknown) (unknown) diurese. (units (unkno wn) date) Clinically however unknown) she appears dry with dark concentrated urine, and (unknown) (no (unknown) (unknown) down trending to (units (unknown) date) 0.041.? It likely unknown) to be cardiac demand ischemia. (unknown) (no (unknown) (unknown) fibrosis.? She was (units (unknown) date) initially treated unknown) with IV furosemide.? O2 need is now down to (unknown) (no (unknown) (unknown) fracture (units (unkno wn) date) unknown) (unknown) (no (unknown) (unknown) hopes to be able (units (unknown) date) to go home. Urine unknown) output has remained diminished. She states (unknown) (no (unknown) (unknown) household members: (units (unknown) date) significant other unknown) (unknown) (no (unknown) (unknown) hypothyroidism, (units (unknown) date) fibromyalgia, and unknown) ascending aortic aneurysm who was admitted (unknown) (no (unknown) (unknown) of worsening (units (u nknown) date) respiratory status unknown) or volume overload, would DC IV fluids and (unknown) (no (unknown) (unknown) postoperative day (units (unknown) date) 1 from left hip unknown) hemiarthroplasty. (unknown) (no (unknown) (unknown) report of marginal (units (unknown) date) oral intake. unknown) (unknown) (no (unknown) (unknown) she is not a very (units (unknown) date) good fluid drinker unknown) and has had 1-1/2 cups of water and 3 (unknown) (no (unknown) (unknown) significant (units (un known) date) shortness of unknown) breath.? She is having pain in her hip.? She really (unknown) (no (unknown) (unknown) sleep. (units (unkno wn) date) unknown) (unknown) (no (unknown) (unknown) substance use (units ( unknown) date) type: does not use unknown) (unknown) (no (unknown) (unknown) today; this time (units (unknown) date) is exclusive of unknown) procedural time. 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 Result panel 178 (unknown) (no date) (unknown) (unknown) > 60 ml/min (unkn own) (unknown) (no date) (unknown) (unknown) > 60 ml/min (unkn own) (unknown) (no date) (unknown) (unknown) 0.92 mg/dl (unkn own) (unknown) (no date) (unknown) (unknown) 103 mmol/l (unkn own) (unknown) (no date) (unknown) (unknown) 111 mg/dl (unkn own) (unknown) (no date) (unknown) (unknown) 111 mg/dl (unkn own) (unknown) (no date) (unknown) (unknown) 132 mmol/l (unkn own) (unknown) (no date) (unknown) (unknown) 20 mg/dl (unkn own) (unknown) (no date) (unknown) (unknown) 21.7 (units unknown) (unknown) (unknown) (no date) (unknown) (unknown) 24 mmol/l (unkn own) (unknown) (no date) (unknown) (unknown) 4.2 mmol/l (unkn own) (unknown) (no date) (unknown) (unknown) 7.6 mg/dl (unkn own) Result panel 179 (unknown) (no date) (unknown) (unknown) 0 /ul (unkn own) (unknown) (no date) (unknown) (unknown) 0.4 % (unkn own) (unknown) (no date) (unknown) (unknown) 14.1 % (unkn own) (unknown) (no date) (unknown) (unknown) 1600 /ul (unkn own) (unknown) (no date) (unknown) (unknown) 18.5 % (unkn own) (unknown) (no date) (unknown) (unknown) 185 x10 3/ul (unkn own) (unknown) (no date) (unknown) (unknown) 28.7 pg (unkn own) (unknown) (no date) (unknown) (unknown) 29.4 % (unkn own) (unknown) (no date) (unknown) (unknown) 3.31 x10 6/ul (unkn own) (unknown) (no date) (unknown) (unknown) 32.3 % (unkn own) (unknown) (no date) (unknown) (unknown) 5.4 % (unkn own) (unknown) (no date) (unknown) (unknown) 500 /ul (unkn own) (unknown) (no date) (unknown) (unknown) 5800 /ul (unkn own) (unknown) (no date) (unknown) (unknown) 66.6 % (unkn own) (unknown) (no date) (unknown) (unknown) 8.7 x10 3/ul (unkn own) (unknown) (no date) (unknown) (unknown) 800 /ul (unkn own) (unknown) (no date) (unknown) (unknown) 88.8 fl (unkn own) (unknown) (no date) (unknown) (unknown) 9.1 % (unkn own) (unknown) (no date) (unknown) (unknown) 9.5 g/dl (unkn own) Result panel 180 (unknown) (no (unknown) (unknown) (no value) (units (unk nown) date) unknown) (unknown) (no (unknown) (unknown) (past 8 hours): (units (unknown) date) unknown) (unknown) (no (unknown) (unknown) [id number] (units (unkno wn) date) unknown) (unknown) (no (unknown) (unknown) 05:00 05:00 (units (un known) date) unknown) (unknown) (no (unknown) (unknown) 11:20 03/27/22 (units (unknown) date) unknown) (unknown) (no (unknown) (unknown) 03/27/22 05:00 (units (unknown) date) unknown) (unknown) (no (unknown) (unknown) 03/27/22 (units (unkno wn) date) 03/27/22 unknown) (unknown) (no (unknown) (unknown) 03/27/22 (units (unkno wn) date) unknown) (unknown) (no (unknown) (unknown) 12:00 03/27/22 (units (unknown) date) unknown) (unknown) (no (unknown) (unknown) 16:00 (units (unkno wn) date) unknown) (unknown) (no (unknown) (unknown) Age/Sex: 72 / F (units (unknown) date) unknown) (unknown) (no (unknown) (unknown) Assessment + (units (u nknown) date) Plan unknown) (unknown) (no (unknown) (unknown) BUN 20 H (units (unkno wn) date) unknown) (unknown) (no (unknown) (unknown) BUN/Creatinine (units (unknown) date) Ratio 21.7 unknown) (unknown) (no (unknown) (unknown) Baso # (Auto) 0 (units (unknown) date) unknown) (unknown) (no (unknown) (unknown) Baso % (Auto) (units ( unknown) date) 0.4 unknown) (unknown) (no (unknown) (unknown) Blood Pressure (units (unknown) date) 106/32 L unknown) (unknown) (no (unknown) (unknown) Blood Pressure (units (unknown) date) 156/48 H unknown) (unknown) (no (unknown) (unknown) Calcium 7.6 L (units ( unknown) date) unknown) (unknown) (no (unknown) (unknown) Carbon Dioxide (units (unknown) date) 24 unknown) (unknown) (no (unknown) (unknown) Chloride 103 (units (u nknown) date) unknown) (unknown) (no (unknown) (unknown) Creatinine 0.92 (units (unknown) date) unknown) (unknown) (no (unknown) (unknown) Critical Care (units ( unknown) date) time: unknown) (unknown) (no (unknown) (unknown) : 1950 (units (unknown) date) Acct:[id number] unknown) (unknown) (no (unknown) (unknown) Date Patient (units (u nknown) date) Seen: 03/27/22 unknown) (unknown) (no (unknown) (unknown) Date of Service: (units (unknown) date) 03/23/22 unknown) (unknown) (no (unknown) (unknown) Deep Vein (units (unkn own) date) Thrombosis/Pulmon unknown) yelena Embolism Present on Admission: No (unknown) (no (unknown) (unknown) Eos # (Auto) 500 (units (unknown) date) H unknown) (unknown) (no (unknown) (unknown) Eos % (Auto) 5.4 (units (unknown) date) H unknown) (unknown) (no (unknown) (unknown) Estimated GFR > (units (unknown) date) 60 unknown) (unknown) (no (unknown) (unknown) Exam (units (unkno wn) date) unknown) (unknown) (no (unknown) (unknown) Fibromyalgia (units (u nknown) date) unknown) (unknown) (no (unknown) (unknown) Fraction of (units (un known) date) Inspired Oxygen unknown) 93 (unknown) (no (unknown) (unknown) Glucose 111 H (units ( unknown) date) unknown) (unknown) (no (unknown) (unknown) Hct 29.4 L (units (unk nown) date) unknown) (unknown) (no (unknown) (unknown) Hgb 9.5 L (units (unkn own) date) unknown) (unknown) (no (unknown) (unknown) Hypertension (units (u nknown) date) unknown) (unknown) (no (unknown) (unknown) Hypothyroidism (units (unknown) date) unknown) (unknown) (no (unknown) (unknown) I spent a total (units (unknown) date) of [] minutes of unknown) critical care time on this patient's care (unknown) (no (unknown) (unknown) Interval (units (unkno wn) date) history: unknown) (unknown) (no (unknown) (unknown) [facility] (units (unknown) date) [address] unknown) [place] [address] (unknown) (no (unknown) (unknown) Laboratory (units (unk nown) date) Results - last unknown) hr (unknown) (no (unknown) (unknown) Labs (units (unkno wn) date) unknown) (unknown) (no (unknown) (unknown) Labs: (units (unkno wn) date) unknown) (unknown) (no (unknown) (unknown) Lymph # (Auto) (units (unknown) date) 1600 unknown) (unknown) (no (unknown) (unknown) Lymph % (Auto) (units (unknown) date) 18.5 L unknown) (unknown) (no (unknown) (unknown) MCH 28.7 (units (unkno wn) date) unknown) (unknown) (no (unknown) (unknown) MCHC 32.3 (units (unkn own) date) unknown) (unknown) (no (unknown) (unknown) MCV 88.8 (units (unkno wn) date) unknown) (unknown) (no (unknown) (unknown) Medical History (units (unknown) date) (Reviewed unknown) 03/24/22 @ 12:05 by Hay Au MD) (unknown) (no (unknown) (unknown) [place] # (Auto) (units ( unknown) date) 800 unknown) (unknown) (no (unknown) (unknown) [place] % (Auto) (units ( unknown) date) 9.1 unknown) (unknown) (no (unknown) (unknown) Neut # (Auto) (units ( unknown) date) 5800 unknown) (unknown) (no (unknown) (unknown) Neut % (Auto) (units ( unknown) date) 66.6 unknown) (unknown) (no (unknown) (unknown) No pertinent (units (u nknown) date) past surgical unknown) history (unknown) (no (unknown) (unknown) Objective (units (unkn own) date) unknown) (unknown) (no (unknown) (unknown) Oxygen Delivery (units (unknown) date) Method Nasal unknown) Cannula Room Air (unknown) (no (unknown) (unknown) Oxygen Delivery (units (unknown) date) Method Room Air unknown) (unknown) (no (unknown) (unknown) Oxygen Delivery (units (unknown) date) Method unknown) (unknown) (no (unknown) (unknown) Oxygen Flow Rate (units (unknown) date) 0 unknown) (unknown) (no (unknown) (unknown) Oxygen Flow Rate (units (unknown) date) 1 1 unknown) (unknown) (no (unknown) (unknown) PFSH (units (unkno wn) date) unknown) (unknown) (no (unknown) (unknown) Patient (units (unkno wn) date) unknown) (unknown) (no (unknown) (unknown) Patient: (units (unkno wn) date) Elidia Rock unknown) MR#: [id number] (unknown) (no (unknown) (unknown) Plt Count 185 (units ( unknown) date) unknown) (unknown) (no (unknown) (unknown) Potassium 4.2 (units ( unknown) date) unknown) (unknown) (no (unknown) (unknown) Progress Note (units ( unknown) date) unknown) (unknown) (no (unknown) (unknown) Provider: (units (unkn own) date) Heraclio Mckeon unknown) D.O. (unknown) (no (unknown) (unknown) Pulse Oximetry (units (unknown) date) 90 L unknown) (unknown) (no (unknown) (unknown) Pulse Oximetry (units (unknown) date) 98 93 95 unknown) (unknown) (no (unknown) (unknown) Pulse Rate 53 L (units (unknown) date) unknown) (unknown) (no (unknown) (unknown) Pulse Rate 62 (units ( unknown) date) unknown) (unknown) (no (unknown) (unknown) Quality (units (unkno wn) date) unknown) (unknown) (no (unknown) (unknown) RBC 3.31 L (units (unk nown) date) unknown) (unknown) (no (unknown) (unknown) RDW 14.1 (units (unkno wn) date) unknown) (unknown) (no (unknown) (unknown) Respiratory Rate (units (unknown) date) 16 unknown) (unknown) (no (unknown) (unknown) Respiratory Rate (units (unknown) date) 17 unknown) (unknown) (no (unknown) (unknown) Restrictive lung (units (unknown) date) disease unknown) (unknown) (no (unknown) (unknown) Result Diagrams: (units (unknown) date) unknown) (unknown) (no (unknown) (unknown) Signed By: (units (unk nown) date) unknown) (unknown) (no (unknown) (unknown) Smoking Status: (units (unknown) date) Former smoker unknown) (unknown) (no (unknown) (unknown) Social History (units (unknown) date) (Reviewed unknown) 03/23/22 @ 16:07 by Liam Colón MD) (unknown) (no (unknown) (unknown) Sodium 132 L (units (u nknown) date) unknown) (unknown) (no (unknown) (unknown) Subjective (units (unk nown) date) unknown) (unknown) (no (unknown) (unknown) Surgical History (units (unknown) date) (Reviewed unknown) 03/24/22 @ 12:05 by Hay Au MD) (unknown) (no (unknown) (unknown) Temperature (units (un known) date) 100.3 F H unknown) (unknown) (no (unknown) (unknown) Temperature 98.2 (units (unknown) date) F unknown) (unknown) (no (unknown) (unknown) Time Spent With (units (unknown) date) Patient unknown) (unknown) (no (unknown) (unknown) VTE (units (unkno wn) date) unknown) (unknown) (no (unknown) (unknown) Vital Signs (units (un known) date) unknown) (unknown) (no (unknown) (unknown) WBC 8.7 (units (unkno wn) date) unknown) (unknown) (no (unknown) (unknown) [Embedded Image (units (unknown) date) Not Available] unknown) (unknown) (no (unknown) (unknown) alcohol intake: (units (unknown) date) current unknown) (unknown) (no (unknown) (unknown) household (units (unkn own) date) members: unknown) significant other (unknown) (no (unknown) (unknown) substance use (units ( unknown) date) type: does not unknown) use (unknown) (no (unknown) (unknown) today; this time (units (unknown) date) is exclusive of unknown) procedural time. Result panel 181 (unknown) (no (unknown) (unknown) (no value) (units (unk nown) date) unknown) (unknown) (no (unknown) (unknown) (past 8 hours): (units (unknown) date) unknown) (unknown) (no (unknown) (unknown) [id number] (units (unkno wn) date) unknown) (unknown) (no (unknown) (unknown) 05:00 05:00 (units (un known) date) unknown) (unknown) (no (unknown) (unknown) 11:20 03/27/22 (units (unknown) date) unknown) (unknown) (no (unknown) (unknown) 03/27/22 05:00 (units (unknown) date) unknown) (unknown) (no (unknown) (unknown) 03/27/22 (units (unkno wn) date) 03/27/22 unknown) (unknown) (no (unknown) (unknown) 03/27/22 (units (unkno wn) date) unknown) (unknown) (no (unknown) (unknown) 12:00 03/27/22 (units (unknown) date) unknown) (unknown) (no (unknown) (unknown) 16:00 (units (unkno wn) date) unknown) (unknown) (no (unknown) (unknown) Age/Sex: 72 / F (units (unknown) date) unknown) (unknown) (no (unknown) (unknown) Assessment + (units (u nknown) date) Plan unknown) (unknown) (no (unknown) (unknown) BUN 20 H (units (unkno wn) date) unknown) (unknown) (no (unknown) (unknown) BUN/Creatinine (units (unknown) date) Ratio 21.7 unknown) (unknown) (no (unknown) (unknown) Baso # (Auto) 0 (units (unknown) date) unknown) (unknown) (no (unknown) (unknown) Baso % (Auto) (units ( unknown) date) 0.4 unknown) (unknown) (no (unknown) (unknown) Blood Pressure (units (unknown) date) 106/32 L unknown) (unknown) (no (unknown) (unknown) Blood Pressure (units (unknown) date) 156/48 H unknown) (unknown) (no (unknown) (unknown) Calcium 7.6 L (units ( unknown) date) unknown) (unknown) (no (unknown) (unknown) Carbon Dioxide (units (unknown) date) 24 unknown) (unknown) (no (unknown) (unknown) Chloride 103 (units (u nknown) date) unknown) (unknown) (no (unknown) (unknown) Creatinine 0.92 (units (unknown) date) unknown) (unknown) (no (unknown) (unknown) Critical Care (units ( unknown) date) time: unknown) (unknown) (no (unknown) (unknown) : 1950 (units (unknown) date) Acct:[id number] unknown) (unknown) (no (unknown) (unknown) Date Patient (units (u nknown) date) Seen: 03/27/22 unknown) (unknown) (no (unknown) (unknown) Date of Service: (units (unknown) date) 03/23/22 unknown) (unknown) (no (unknown) (unknown) Deep Vein (units (unkn own) date) Thrombosis/Pulmon unknown) yelena Embolism Present on Admission: No (unknown) (no (unknown) (unknown) Eos # (Auto) 500 (units (unknown) date) H unknown) (unknown) (no (unknown) (unknown) Eos % (Auto) 5.4 (units (unknown) date) H unknown) (unknown) (no (unknown) (unknown) Estimated GFR > (units (unknown) date) 60 unknown) (unknown) (no (unknown) (unknown) Exam (units (unkno wn) date) unknown) (unknown) (no (unknown) (unknown) Fibromyalgia (units (u nknown) date) unknown) (unknown) (no (unknown) (unknown) Fraction of (units (un known) date) Inspired Oxygen unknown) 93 (unknown) (no (unknown) (unknown) Glucose 111 H (units ( unknown) date) unknown) (unknown) (no (unknown) (unknown) Hct 29.4 L (units (unk nown) date) unknown) (unknown) (no (unknown) (unknown) Hgb 9.5 L (units (unkn own) date) unknown) (unknown) (no (unknown) (unknown) Hypertension (units (u nknown) date) unknown) (unknown) (no (unknown) (unknown) Hypothyroidism (units (unknown) date) unknown) (unknown) (no (unknown) (unknown) I spent a total (units (unknown) date) of [] minutes of unknown) critical care time on this patient's care (unknown) (no (unknown) (unknown) Interval (units (unkno wn) date) history: unknown) (unknown) (no (unknown) (unknown) [facility] (units (unknown) date) [address] [place] [address] unknown) [place] [address] (unknown) (no (unknown) (unknown) Laboratory (units (unk nown) date) Results - last 24 unknown) hr (unknown) (no (unknown) (unknown) Labs (units (unkno wn) date) unknown) (unknown) (no (unknown) (unknown) Labs: (units (unkno wn) date) unknown) (unknown) (no (unknown) (unknown) Lymph # (Auto) (units (unknown) date) 1600 unknown) (unknown) (no (unknown) (unknown) Lymph % (Auto) (units (unknown) date) 18.5 L unknown) (unknown) (no (unknown) (unknown) MCH 28.7 (units (unkno wn) date) unknown) (unknown) (no (unknown) (unknown) MCHC 32.3 (units (unkn own) date) unknown) (unknown) (no (unknown) (unknown) MCV 88.8 (units (unkno wn) date) unknown) (unknown) (no (unknown) (unknown) Medical History (units (unknown) date) (Reviewed unknown) 03/24/22 @ 12:05 by Hay Au MD) (unknown) (no (unknown) (unknown) [place] # (Auto) (units ( unknown) date) 800 unknown) (unknown) (no (unknown) (unknown) [place] % (Auto) (units ( unknown) date) 9.1 unknown) (unknown) (no (unknown) (unknown) Neut # (Auto) (units ( unknown) date) 5800 unknown) (unknown) (no (unknown) (unknown) Neut % (Auto) (units ( unknown) date) 66.6 unknown) (unknown) (no (unknown) (unknown) No pertinent (units (u nknown) date) past surgical unknown) history (unknown) (no (unknown) (unknown) Objective (units (unkn own) date) unknown) (unknown) (no (unknown) (unknown) Oxygen Delivery (units (unknown) date) Method Nasal unknown) Cannula Room Air (unknown) (no (unknown) (unknown) Oxygen Delivery (units (unknown) date) Method Room Air unknown) (unknown) (no (unknown) (unknown) Oxygen Delivery (units (unknown) date) Method unknown) (unknown) (no (unknown) (unknown) Oxygen Flow Rate (units (unknown) date) 0 unknown) (unknown) (no (unknown) (unknown) Oxygen Flow Rate (units (unknown) date) 1 1 unknown) (unknown) (no (unknown) (unknown) PFSH (units (unkno wn) date) unknown) (unknown) (no (unknown) (unknown) Patient feeling (units (unknown) date) better today. unknown) (unknown) (no (unknown) (unknown) Patient: (units (unkno wn) date) Elidia Rock unknown) MR#: [id number] (unknown) (no (unknown) (unknown) Plt Count 185 (units ( unknown) date) unknown) (unknown) (no (unknown) (unknown) Potassium 4.2 (units ( unknown) date) unknown) (unknown) (no (unknown) (unknown) Progress Note (units ( unknown) date) unknown) (unknown) (no (unknown) (unknown) Provider: (units (unkn own) date) Heraclio Mckeon unknown) D.O. (unknown) (no (unknown) (unknown) Pulse Oximetry (units (unknown) date) 90 L unknown) (unknown) (no (unknown) (unknown) Pulse Oximetry (units (unknown) date) 98 93 95 unknown) (unknown) (no (unknown) (unknown) Pulse Rate 53 L (units (unknown) date) unknown) (unknown) (no (unknown) (unknown) Pulse Rate 62 (units ( unknown) date) unknown) (unknown) (no (unknown) (unknown) Quality (units (unkno wn) date) unknown) (unknown) (no (unknown) (unknown) RBC 3.31 L (units (unk nown) date) unknown) (unknown) (no (unknown) (unknown) RDW 14.1 (units (unkno wn) date) unknown) (unknown) (no (unknown) (unknown) Respiratory Rate (units (unknown) date) 16 unknown) (unknown) (no (unknown) (unknown) Respiratory Rate (units (unknown) date) 17 unknown) (unknown) (no (unknown) (unknown) Restrictive lung (units (unknown) date) disease unknown) (unknown) (no (unknown) (unknown) Result Diagrams: (units (unknown) date) unknown) (unknown) (no (unknown) (unknown) Signed By: (units (unk nown) date) unknown) (unknown) (no (unknown) (unknown) Smoking Status: (units (unknown) date) Former smoker unknown) (unknown) (no (unknown) (unknown) Social History (units (unknown) date) (Reviewed unknown) 03/23/22 @ 16:07 by Liam Colón MD) (unknown) (no (unknown) (unknown) Sodium 132 L (units (u nknown) date) unknown) (unknown) (no (unknown) (unknown) Subjective (units (unk nown) date) unknown) (unknown) (no (unknown) (unknown) Surgical History (units (unknown) date) (Reviewed unknown) 03/24/22 @ 12:05 by Hay Au MD) (unknown) (no (unknown) (unknown) Temperature (units (un known) date) 100.3 F H unknown) (unknown) (no (unknown) (unknown) Temperature 98.2 (units (unknown) date) F unknown) (unknown) (no (unknown) (unknown) Time Spent With (units (unknown) date) Patient unknown) (unknown) (no (unknown) (unknown) VTE (units (unkno wn) date) unknown) (unknown) (no (unknown) (unknown) Vital Signs (units (un known) date) unknown) (unknown) (no (unknown) (unknown) WBC 8.7 (units (unkno wn) date) unknown) (unknown) (no (unknown) (unknown) [Embedded Image (units (unknown) date) Not Available] unknown) (unknown) (no (unknown) (unknown) alcohol intake: (units (unknown) date) current unknown) (unknown) (no (unknown) (unknown) household (units (unkn own) date) members: unknown) significant other (unknown) (no (unknown) (unknown) substance use (units ( unknown) date) type: does not unknown) use (unknown) (no (unknown) (unknown) today; this time (units (unknown) date) is exclusive of unknown) procedural time. Result panel 182 (unknown) (no (unknown) (unknown) (no value) (units (unk nown) date) unknown) (unknown) (no (unknown) (unknown) (past 8 hours): (units (unknown) date) unknown) (unknown) (no (unknown) (unknown) [id number] (units (unkno wn) date) unknown) (unknown) (no (unknown) (unknown) 05:00 05:00 (units (un known) date) unknown) (unknown) (no (unknown) (unknown) 100.3F today. (units ( unknown) date) unknown) (unknown) (no (unknown) (unknown) 11:20 03/27/22 (units (unknown) date) unknown) (unknown) (no (unknown) (unknown) 03/27/22 05:00 (units (unknown) date) unknown) (unknown) (no (unknown) (unknown) 03/27/22 (units (unkno wn) date) 03/27/22 unknown) (unknown) (no (unknown) (unknown) 03/27/22 (units (unkno wn) date) unknown) (unknown) (no (unknown) (unknown) 12:00 03/27/22 (units (unknown) date) unknown) (unknown) (no (unknown) (unknown) 16:00 (units (unkno wn) date) unknown) (unknown) (no (unknown) (unknown) ABD: Soft, (units (unk nown) date) NT/ND, BT present unknown) in all 4 quadrants, no organomegaly or masses (unknown) (no (unknown) (unknown) Age/Sex: 72 / F (units (unknown) date) unknown) (unknown) (no (unknown) (unknown) Assessment + (units (u nknown) date) Plan unknown) (unknown) (no (unknown) (unknown) BUN 20 H (units (unkno wn) date) unknown) (unknown) (no (unknown) (unknown) BUN/Creatinine (units (unknown) date) Ratio 21.7 unknown) (unknown) (no (unknown) (unknown) Baso # (Auto) 0 (units (unknown) date) unknown) (unknown) (no (unknown) (unknown) Baso % (Auto) (units ( unknown) date) 0.4 unknown) (unknown) (no (unknown) (unknown) Blood Pressure (units (unknown) date) 106/32 L unknown) (unknown) (no (unknown) (unknown) Blood Pressure (units (unknown) date) 156/48 H unknown) (unknown) (no (unknown) (unknown) CHEST: (units (unkno wn) date) Respiratory unknown) excursions symmetric, coarse but CTAB (unknown) (no (unknown) (unknown) CV: RRR, no (units (un known) date) M/R/G unknown) (unknown) (no (unknown) (unknown) Calcium 7.6 L (units ( unknown) date) unknown) (unknown) (no (unknown) (unknown) Carbon Dioxide (units (unknown) date) 24 unknown) (unknown) (no (unknown) (unknown) Chloride 103 (units (u nknown) date) unknown) (unknown) (no (unknown) (unknown) Creatinine 0.92 (units (unknown) date) unknown) (unknown) (no (unknown) (unknown) Critical Care (units ( unknown) date) time: unknown) (unknown) (no (unknown) (unknown) : 1950 (units (unknown) date) Acct:[id number] unknown) (unknown) (no (unknown) (unknown) Date Patient (units (u nknown) date) Seen: 03/27/22 unknown) (unknown) (no (unknown) (unknown) Date of Service: (units (unknown) date) 03/23/22 unknown) (unknown) (no (unknown) (unknown) Deep Vein (units (unkn own) date) Thrombosis/Pulmon unknown) yelena Embolism Present on Admission: No (unknown) (no (unknown) (unknown) EXTR: warm, well (units (unknown) date) perfused, no unknown) C/C/E (unknown) (no (unknown) (unknown) Eos # (Auto) 500 (units (unknown) date) H unknown) (unknown) (no (unknown) (unknown) Eos % (Auto) 5.4 (units (unknown) date) H unknown) (unknown) (no (unknown) (unknown) Estimated GFR > (units (unknown) date) 60 unknown) (unknown) (no (unknown) (unknown) Exam Narrative: (units (unknown) date) unknown) (unknown) (no (unknown) (unknown) Exam (units (unkno wn) date) unknown) (unknown) (no (unknown) (unknown) Fibromyalgia (units (u nknown) date) unknown) (unknown) (no (unknown) (unknown) Fraction of (units (un known) date) Inspired Oxygen unknown) 93 (unknown) (no (unknown) (unknown) GEN: Alert and (units (unknown) date) oriented x 3, NAD unknown) (unknown) (no (unknown) (unknown) Glucose 111 H (units ( unknown) date) unknown) (unknown) (no (unknown) (unknown) HEENT:NC, Face (units (unknown) date) symmetric unknown) (unknown) (no (unknown) (unknown) Hct 29.4 L (units (unk nown) date) unknown) (unknown) (no (unknown) (unknown) Hgb 9.5 L (units (unkn own) date) unknown) (unknown) (no (unknown) (unknown) Hypertension (units (u nknown) date) unknown) (unknown) (no (unknown) (unknown) Hypothyroidism (units (unknown) date) unknown) (unknown) (no (unknown) (unknown) I spent a total (units (unknown) date) of [] minutes of unknown) critical care time on this patient's care (unknown) (no (unknown) (unknown) Interval (units (unkno wn) date) history: unknown) (unknown) (no (unknown) (unknown) [facility] (units (unknown) date) [address] unknown) [place] [address] (unknown) (no (unknown) (unknown) Laboratory (units (unk nown) date) Results - last 24 unknown) hr (unknown) (no (unknown) (unknown) Labs (units (unkno wn) date) unknown) (unknown) (no (unknown) (unknown) Labs: (units (unkno wn) date) unknown) (unknown) (no (unknown) (unknown) Lymph # (Auto) (units (unknown) date) 1600 unknown) (unknown) (no (unknown) (unknown) Lymph % (Auto) (units (unknown) date) 18.5 L unknown) (unknown) (no (unknown) (unknown) MCH 28.7 (units (unkno wn) date) unknown) (unknown) (no (unknown) (unknown) MCHC 32.3 (units (unkn own) date) unknown) (unknown) (no (unknown) (unknown) MCV 88.8 (units (unkno wn) date) unknown) (unknown) (no (unknown) (unknown) Medical History (units (unknown) date) (Reviewed unknown) 03/24/22 @ 12:05 by Hay Au MD) (unknown) (no (unknown) (unknown) [place] # (Auto) (units ( unknown) date) 800 unknown) (unknown) (no (unknown) (unknown) [place] % (Auto) (units ( unknown) date) 9.1 unknown) (unknown) (no (unknown) (unknown) NEURO: Alert and (units (unknown) date) oriented x 3, unknown) nonfocal (unknown) (no (unknown) (unknown) Narrative (units (unkn own) date) unknown) (unknown) (no (unknown) (unknown) Neut # (Auto) (units ( unknown) date) 5800 unknown) (unknown) (no (unknown) (unknown) Neut % (Auto) (units ( unknown) date) 66.6 unknown) (unknown) (no (unknown) (unknown) No pertinent (units (u nknown) date) past surgical unknown) history (unknown) (no (unknown) (unknown) Objective (units (unkn own) date) unknown) (unknown) (no (unknown) (unknown) Oxygen Delivery (units (unknown) date) Method Nasal unknown) Cannula Room Air (unknown) (no (unknown) (unknown) Oxygen Delivery (units (unknown) date) Method Room Air unknown) (unknown) (no (unknown) (unknown) Oxygen Delivery (units (unknown) date) Method unknown) (unknown) (no (unknown) (unknown) Oxygen Flow Rate (units (unknown) date) 0 unknown) (unknown) (no (unknown) (unknown) Oxygen Flow Rate (units (unknown) date) 1 1 unknown) (unknown) (no (unknown) (unknown) PFSH (units (unkno wn) date) unknown) (unknown) (no (unknown) (unknown) Patient feeling (units (unknown) date) better today. unknown) Able to wean off O2 on home O2 eval. Had a temp of (unknown) (no (unknown) (unknown) Patient: (units (unkno wn) date) Elidia Rock unknown) MR#: [id number] (unknown) (no (unknown) (unknown) Plt Count 185 (units ( unknown) date) unknown) (unknown) (no (unknown) (unknown) Potassium 4.2 (units ( unknown) date) unknown) (unknown) (no (unknown) (unknown) Progress Note (units ( unknown) date) unknown) (unknown) (no (unknown) (unknown) Provider: (units (unkn own) date) Heraclio Mckeon unknown) D.O. (unknown) (no (unknown) (unknown) Pulse Oximetry (units (unknown) date) 90 L unknown) (unknown) (no (unknown) (unknown) Pulse Oximetry (units (unknown) date) 98 93 95 unknown) (unknown) (no (unknown) (unknown) Pulse Rate 53 L (units (unknown) date) unknown) (unknown) (no (unknown) (unknown) Pulse Rate 62 (units ( unknown) date) unknown) (unknown) (no (unknown) (unknown) Quality (units (unkno wn) date) unknown) (unknown) (no (unknown) (unknown) RBC 3.31 L (units (unk nown) date) unknown) (unknown) (no (unknown) (unknown) RDW 14.1 (units (unkno wn) date) unknown) (unknown) (no (unknown) (unknown) Respiratory Rate (units (unknown) date) 16 unknown) (unknown) (no (unknown) (unknown) Respiratory Rate (units (unknown) date) 17 unknown) (unknown) (no (unknown) (unknown) Restrictive lung (units (unknown) date) disease unknown) (unknown) (no (unknown) (unknown) Result Diagrams: (units (unknown) date) unknown) (unknown) (no (unknown) (unknown) SKIN: warm and (units (unknown) date) dry, no rash unknown) (unknown) (no (unknown) (unknown) Signed By: (units (unk nown) date) unknown) (unknown) (no (unknown) (unknown) Smoking Status: (units (unknown) date) Former smoker unknown) (unknown) (no (unknown) (unknown) Social History (units (unknown) date) (Reviewed unknown) 03/23/22 @ 16:07 by Liam Colón MD) (unknown) (no (unknown) (unknown) Sodium 132 L (units (u nknown) date) unknown) (unknown) (no (unknown) (unknown) Subjective (units (unk nown) date) unknown) (unknown) (no (unknown) (unknown) Surgical History (units (unknown) date) (Reviewed unknown) 03/24/22 @ 12:05 by Hay Au MD) (unknown) (no (unknown) (unknown) Temperature (units (un known) date) 100.3 F H unknown) (unknown) (no (unknown) (unknown) Temperature 98.2 (units (unknown) date) F unknown) (unknown) (no (unknown) (unknown) Time Spent With (units (unknown) date) Patient unknown) (unknown) (no (unknown) (unknown) VTE (units (unkno wn) date) unknown) (unknown) (no (unknown) (unknown) Vital Signs (units (un known) date) unknown) (unknown) (no (unknown) (unknown) WBC 8.7 (units (unkno wn) date) unknown) (unknown) (no (unknown) (unknown) [Embedded Image (units (unknown) date) Not Available] unknown) (unknown) (no (unknown) (unknown) alcohol intake: (units (unknown) date) current unknown) (unknown) (no (unknown) (unknown) household (units (unkn own) date) members: unknown) significant other (unknown) (no (unknown) (unknown) substance use (units ( unknown) date) type: does not unknown) use (unknown) (no (unknown) (unknown) today; this time (units (unknown) date) is exclusive of unknown) procedural time. Result panel 183 (unknown) (no (unknown) (unknown) (no value) (units (unk nown) date) unknown) (unknown) (no (unknown) (unknown) (past 8 hours): (units (unknown) date) unknown) (unknown) (no (unknown) (unknown) -100.3F on 03/29 (units (unknown) date) unknown) (unknown) (no (unknown) (unknown) [id number] (units (unkno wn) date) unknown) (unknown) (no (unknown) (unknown) 05:00 05:00 (units (un known) date) unknown) (unknown) (no (unknown) (unknown) 1. Postoperative (units (unknown) date) day 2 from left hip unknown) hemiarthroplasty for left femoral neck (unknown) (no (unknown) (unknown) 10. Elevated temp (units (unknown) date) unknown) (unknown) (no (unknown) (unknown) 100.3F today. (units ( unknown) date) unknown) (unknown) (no (unknown) (unknown) 11:20 03/27/22 (units (unknown) date) unknown) (unknown) (no (unknown) (unknown) 03/27/22 05:00 (units (unknown) date) unknown) (unknown) (no (unknown) (unknown) 03/27/22 03/27/22 (units (unknown) date) unknown) (unknown) (no (unknown) (unknown) 03/27/22 (units (unkno wn) date) unknown) (unknown) (no (unknown) (unknown) 12:00 03/27/22 (units (unknown) date) unknown) (unknown) (no (unknown) (unknown) 16:00 (units (unkno wn) date) unknown) (unknown) (no (unknown) (unknown) 2 liters/minute.? (units (unknown) date) Will continue to unknown) monitor.? Etiology is not entirely clear, (unknown) (no (unknown) (unknown) 2. Acute hypoxic (units (unknown) date) respiratory failure unknown) (unknown) (no (unknown) (unknown) 3. Ascending (units (u nknown) date) aortic aneurysm unknown) (unknown) (no (unknown) (unknown) 4. 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 Depression (units ( unknown) date) unknown) (unknown) (no (unknown) (unknown) 8. Hypothyroidism (units (unknown) date) unknown) (unknown) (no (unknown) (unknown) 9. Oliguria (units (un known) date) unknown) (unknown) (no (unknown) (unknown) ABD: Soft, NT/ND, (units (unknown) date) BT present in all 4 unknown) quadrants, no organomegaly or masses (unknown) (no (unknown) (unknown) Age/Sex: 72 / F (units (unknown) date) unknown) (unknown) (no (unknown) (unknown) Appreciate (units (unk nown) date) management per unknown) Orthopedic surgery.? Work on mobilization and pain (unknown) (no (unknown) (unknown) Assessment + Plan (units (unknown) date) narrative: unknown) (unknown) (no (unknown) (unknown) Assessment + Plan (units (unknown) date) unknown) (unknown) (no (unknown) (unknown) BUN 20 H (units (unkno wn) date) unknown) (unknown) (no (unknown) (unknown) BUN/Creatinine (units (unknown) date) Ratio 21.7 unknown) (unknown) (no (unknown) (unknown) Baso # (Auto) 0 (units (unknown) date) unknown) (unknown) (no (unknown) (unknown) Baso % (Auto) 0.4 (units (unknown) date) unknown) (unknown) (no (unknown) (unknown) Blood Pressure (units (unknown) date) 106/32 L unknown) (unknown) (no (unknown) (unknown) Blood Pressure (units (unknown) date) 156/48 H unknown) (unknown) (no (unknown) (unknown) CHEST: Respiratory (units (unknown) date) excursions unknown) symmetric, coarse but CTAB (unknown) (no (unknown) (unknown) CV: RRR, no M/R/G (units (unknown) date) unknown) (unknown) (no (unknown) (unknown) Calcium 7.6 L (units ( unknown) date) unknown) (unknown) (no (unknown) (unknown) Carbon Dioxide 24 (units (unknown) date) unknown) (unknown) (no (unknown) (unknown) Chloride 103 (units (u nknown) date) unknown) (unknown) (no (unknown) (unknown) Code status (units (un known) date) unknown) (unknown) (no (unknown) (unknown) Continue Lovenox (units (unknown) date) unknown) (unknown) (no (unknown) (unknown) Continue (units (unkno wn) date) levothyroxine unknown) (unknown) (no (unknown) (unknown) Continue (units (unkno wn) date) outpatient dose of unknown) Lamictal.? She also uses diazepam at bedtime for (unknown) (no (unknown) (unknown) Creatinine 0.92 (units (unknown) date) unknown) (unknown) (no (unknown) (unknown) Critical Care (units ( unknown) date) time: unknown) (unknown) (no (unknown) (unknown) : 1950 (units (unknown) date) Acct:[id number] unknown) (unknown) (no (unknown) (unknown) Date Patient Seen: (units (unknown) date) 03/27/22 unknown) (unknown) (no (unknown) (unknown) Date of Service: (units (unknown) date) 03/23/22 unknown) (unknown) (no (unknown) (unknown) Deep Vein (units (unkn own) date) Thrombosis/Pulmonar unknown) y Embolism Present on Admission: No (unknown) (no (unknown) (unknown) Disposition (units (un known) date) unknown) (unknown) (no (unknown) (unknown) EXTR: warm, well (units (unknown) date) perfused, no C/C/E unknown) (unknown) (no (unknown) (unknown) Eos # (Auto) 500 H (units (unknown) date) unknown) (unknown) (no (unknown) (unknown) Eos % (Auto) 5.4 H (units (unknown) date) unknown) (unknown) (no (unknown) (unknown) Estimated GFR > 60 (units (unknown) date) unknown) (unknown) (no (unknown) (unknown) Exam Narrative: (units (unknown) date) unknown) (unknown) (no (unknown) (unknown) Exam (units (unkno wn) date) unknown) (unknown) (no (unknown) (unknown) Fibromyalgia (units (u nknown) date) unknown) (unknown) (no (unknown) (unknown) Fraction of (units (un known) date) Inspired Oxygen 93 unknown) (unknown) (no (unknown) (unknown) Full (units (unkno wn) date) unknown) (unknown) (no (unknown) (unknown) GEN: Alert and (units (unknown) date) oriented x 3, NAD unknown) (unknown) (no (unknown) (unknown) Glucose 111 H (units ( unknown) date) unknown) (unknown) (no (unknown) (unknown) HEENT:NC, Face (units (unknown) date) symmetric unknown) (unknown) (no (unknown) (unknown) Hct 29.4 L (units (unk nown) date) unknown) (unknown) (no (unknown) (unknown) Hgb 9.5 L (units (unkn own) date) unknown) (unknown) (no (unknown) (unknown) Home with HH on (units (unknown) date) 03/28. unknown) (unknown) (no (unknown) (unknown) Hypertension (units (u nknown) date) unknown) (unknown) (no (unknown) (unknown) Hypothyroidism (units (unknown) date) unknown) (unknown) (no (unknown) (unknown) I spent a total of (units (unknown) date) [] minutes of unknown) critical care time on this patient's care (unknown) (no (unknown) (unknown) Interval history: (units (unknown) date) unknown) (unknown) (no (unknown) (unknown) [facility] (units (unknown) date) [address] unknown) [place] [address] (unknown) (no (unknown) (unknown) L bolus of IV (units ( unknown) date) fluids followed by unknown) maintenance fluids. Should she develop signs (unknown) (no (unknown) (unknown) Laboratory Results (units (unknown) date) - last 24 hr unknown) (unknown) (no (unknown) (unknown) Labs (units (unkno wn) date) unknown) (unknown) (no (unknown) (unknown) Labs: (units (unkno wn) date) unknown) (unknown) (no (unknown) (unknown) Lymph # (Auto) (units (unknown) date) 1600 unknown) (unknown) (no (unknown) (unknown) Lymph % (Auto) (units (unknown) date) 18.5 L unknown) (unknown) (no (unknown) (unknown) MCH 28.7 (units (unkno wn) date) unknown) (unknown) (no (unknown) (unknown) MCHC 32.3 (units (unkn own) date) unknown) (unknown) (no (unknown) (unknown) MCV 88.8 (units (unkno wn) date) unknown) (unknown) (no (unknown) (unknown) Measuring 6.4 cm.? (units (unknown) date) She will need close unknown) follow-up.? She is on metoprolol for (unknown) (no (unknown) (unknown) Medical History (units (unknown) date) (Reviewed 03/24/22 unknown) @ 12:05 by Hay Au MD) (unknown) (no (unknown) (unknown) [place] # (Auto) 800 (units (unknown) date) unknown) (unknown) (no (unknown) (unknown) [place] % (Auto) 9.1 (units (unknown) date) unknown) (unknown) (no (unknown) (unknown) NEURO: Alert and (units (unknown) date) oriented x 3, unknown) nonfocal (unknown) (no (unknown) (unknown) Narrative (units (unkn own) date) unknown) (unknown) (no (unknown) (unknown) Neut # (Auto) 5800 (units (unknown) date) unknown) (unknown) (no (unknown) (unknown) Neut % (Auto) 66.6 (units (unknown) date) unknown) (unknown) (no (unknown) (unknown) No pertinent past (units (unknown) date) surgical history unknown) (unknown) (no (unknown) (unknown) Objective (units (unkn own) date) unknown) (unknown) (no (unknown) (unknown) Oxygen Delivery (units (unknown) date) Method Nasal unknown) Cannula Room Air (unknown) (no (unknown) (unknown) Oxygen Delivery (units (unknown) date) Method Room Air unknown) (unknown) (no (unknown) (unknown) Oxygen Delivery (units (unknown) date) Method unknown) (unknown) (no (unknown) (unknown) Oxygen Flow Rate 0 (units (unknown) date) unknown) (unknown) (no (unknown) (unknown) Oxygen Flow Rate 1 (units (unknown) date) 1 unknown) (unknown) (no (unknown) (unknown) PFSH (units (unkno wn) date) unknown) (unknown) (no (unknown) (unknown) Patient feeling (units (unknown) date) better today. Able unknown) to wean off O2 on home O2 eval. Had a temp of (unknown) (no (unknown) (unknown) Patient reportedly (units (unknown) date) had an NSTEMI at unknown) the end of February.? Troponin was 0.050, (unknown) (no (unknown) (unknown) Patient takes (units ( unknown) date) fentanyl 75 mcg Q unknown) 72 hours.? Patch was changed yesterday. (unknown) (no (unknown) (unknown) Patient was (units (unk nown) date) diuresed on unknown) March 24.? Despite a couple of boluses yesterday she (unknown) (no (unknown) (unknown) Patient: (units (unkno wn) date) Elidia Rock unknown) MR#: [id number] (unknown) (no (unknown) (unknown) Plt Count 185 (units ( unknown) date) unknown) (unknown) (no (unknown) (unknown) Postoperatively, (units (unknown) date) patient did require unknown) 5 L of oxygen via nasal cannula.? At (unknown) (no (unknown) (unknown) Potassium 4.2 (units ( unknown) date) unknown) (unknown) (no (unknown) (unknown) Progress Note (units ( unknown) date) unknown) (unknown) (no (unknown) (unknown) Prophylaxis (units (un known) date) unknown) (unknown) (no (unknown) (unknown) Provider: (units (unkn own) date) Heraclio Mckeon unknown) D.O. (unknown) (no (unknown) (unknown) Pulse Oximetry 90 (units (unknown) date) L unknown) (unknown) (no (unknown) (unknown) Pulse Oximetry 98 (units (unknown) date) 93 95 unknown) (unknown) (no (unknown) (unknown) Pulse Rate 53 L (units (unknown) date) unknown) (unknown) (no (unknown) (unknown) Pulse Rate 62 (units ( unknown) date) unknown) (unknown) (no (unknown) (unknown) Quality (units (unkno wn) date) unknown) (unknown) (no (unknown) (unknown) RBC 3.31 L (units (unk nown) date) unknown) (unknown) (no (unknown) (unknown) RDW 14.1 (units (unkno wn) date) unknown) (unknown) (no (unknown) (unknown) Respiratory Rate (units (unknown) date) 16 unknown) (unknown) (no (unknown) (unknown) Respiratory Rate (units (unknown) date) 17 unknown) (unknown) (no (unknown) (unknown) Restrictive lung (units (unknown) date) disease unknown) (unknown) (no (unknown) (unknown) Result Diagrams: (units (unknown) date) unknown) (unknown) (no (unknown) (unknown) SKIN: warm and (units (unknown) date) dry, no rash unknown) (unknown) (no (unknown) (unknown) She is not on any (units (unknown) date) outpatient unknown) medications or inhalers. (unknown) (no (unknown) (unknown) Signed By: (units (unk nown) date) unknown) (unknown) (no (unknown) (unknown) Smoking Status: (units (unknown) date) Former smoker unknown) (unknown) (no (unknown) (unknown) Social History (units (unknown) date) (Reviewed 03/23/22 unknown) @ 16:07 by Liam Colón MD) (unknown) (no (unknown) (unknown) Sodium 132 L (units (u nknown) date) unknown) (unknown) (no (unknown) (unknown) Subjective (units (unk nown) date) unknown) (unknown) (no (unknown) (unknown) Surgical History (units (unknown) date) (Reviewed 03/24/22 unknown) @ 12:05 by Hay Au MD) (unknown) (no (unknown) (unknown) Temperature 100.3 (units (unknown) date) F H unknown) (unknown) (no (unknown) (unknown) Temperature 98.2 F (units (unknown) date) unknown) (unknown) (no (unknown) (unknown) Time Spent With (units (unknown) date) Patient unknown) (unknown) (no (unknown) (unknown) VTE (units (unkno wn) date) unknown) (unknown) (no (unknown) (unknown) Vital Signs (units (un known) date) unknown) (unknown) (no (unknown) (unknown) WBC 8.7 (units (unkno wn) date) unknown) (unknown) (no (unknown) (unknown) [Embedded Image (units (unknown) date) Not Available] unknown) (unknown) (no (unknown) (unknown) alcohol intake: (units (unknown) date) current unknown) (unknown) (no (unknown) (unknown) baseline she does (units (unknown) date) not require unknown) oxygen.? Patient has known idiopathic pulmonary (unknown) (no (unknown) (unknown) blood pressure (units (unknown) date) control. unknown) (unknown) (no (unknown) (unknown) but could be (units (u nknown) date) related to unknown) underlying lung disease and anesthesia for surgery.? No (unknown) (no (unknown) (unknown) clear evidence of (units (unknown) date) aspiration. Will unknown) have RT perform a desat study. (unknown) (no (unknown) (unknown) continues to be (units (unknown) date) hypovolemic. Her unknown) oral intake remains marginal. Will give a 1 (unknown) (no (unknown) (unknown) control. Patient's (units (unknown) date) goal is to return unknown) home with home health. Her partner is a (unknown) (no (unknown) (unknown) diurese. (units (unkno wn) date) Clinically however unknown) she appears dry with dark concentrated urine, and (unknown) (no (unknown) (unknown) down trending to (units (unknown) date) 0.041.? It likely unknown) to be cardiac demand ischemia. (unknown) (no (unknown) (unknown) fibrosis.? She was (units (unknown) date) initially treated unknown) with IV furosemide.? O2 need is now down to (unknown) (no (unknown) (unknown) fracture (units (unkno wn) date) unknown) (unknown) (no (unknown) (unknown) household members: (units (unknown) date) significant other unknown) (unknown) (no (unknown) (unknown) of worsening (units (u nknown) date) respiratory status unknown) or volume overload, would DC IV fluids and (unknown) (no (unknown) (unknown) report of marginal (units (unknown) date) oral intake. unknown) (unknown) (no (unknown) (unknown) sleep. (units (unkno wn) date) unknown) (unknown) (no (unknown) (unknown) substance use (units ( unknown) date) type: does not use unknown) (unknown) (no (unknown) (unknown) today; this time (units (unknown) date) is exclusive of unknown) procedural time. 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 Result panel 184 (unknown) (no (unknown) (unknown) (no value) (units (unk nown) date) unknown) (unknown) (no (unknown) (unknown) (past 8 hours): (units (unknown) date) unknown) (unknown) (no (unknown) (unknown) -100.3F on 03/29 (units (unknown) date) unknown) (unknown) (no (unknown) (unknown) -likely (units (unkno wn) date) atelectasis on CXR unknown) (unknown) (no (unknown) (unknown) -monitor for signs (units (unknown) date) of infection unknown) (unknown) (no (unknown) (unknown) -no new cough, (units (unknown) date) dysuria unknown) (unknown) (no (unknown) (unknown) [id number] (units (unkno wn) date) unknown) (unknown) (no (unknown) (unknown) 05:00 05:00 (units (un known) date) unknown) (unknown) (no (unknown) (unknown) 1. Postoperative (units (unknown) date) day 2 from left hip unknown) hemiarthroplasty for left femoral neck (unknown) (no (unknown) (unknown) 10. Elevated temp (units (unknown) date) unknown) (unknown) (no (unknown) (unknown) 100.3F today. (units ( unknown) date) unknown) (unknown) (no (unknown) (unknown) 11:20 03/27/22 (units (unknown) date) unknown) (unknown) (no (unknown) (unknown) 03/27/22 05:00 (units (unknown) date) unknown) (unknown) (no (unknown) (unknown) 03/27/22 03/27/22 (units (unknown) date) unknown) (unknown) (no (unknown) (unknown) 03/27/22 194 (units ( unknown) date) unknown) (unknown) (no (unknown) (unknown) 03/27/22 (units (unkno wn) date) unknown) (unknown) (no (unknown) (unknown) 12:00 03/27/22 (units (unknown) date) unknown) (unknown) (no (unknown) (unknown) 16:00 (units (unkno wn) date) unknown) (unknown) (no (unknown) (unknown) 2 liters/minute.? (units (unknown) date) Will continue to unknown) monitor.? Etiology is not entirely clear, (unknown) (no (unknown) (unknown) 2. Acute hypoxic (units (unknown) date) respiratory failure unknown) (unknown) (no (unknown) (unknown) 3. Ascending (units (u nknown) date) aortic aneurysm unknown) (unknown) (no (unknown) (unknown) 4. 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 Depression (units ( unknown) date) unknown) (unknown) (no (unknown) (unknown) 8. Hypothyroidism (units (unknown) date) unknown) (unknown) (no (unknown) (unknown) 9. Oliguria (units (un known) date) unknown) (unknown) (no (unknown) (unknown) ABD: Soft, NT/ND, (units (unknown) date) BT present in all 4 unknown) quadrants, no organomegaly or masses (unknown) (no (unknown) (unknown) Age/Sex: 72 / F (units (unknown) date) unknown) (unknown) (no (unknown) (unknown) Appreciate (units (unk nown) date) management per unknown) Orthopedic surgery.? Work on mobilization and pain (unknown) (no (unknown) (unknown) Assessment + Plan (units (unknown) date) narrative: unknown) (unknown) (no (unknown) (unknown) Assessment + Plan (units (unknown) date) unknown) (unknown) (no (unknown) (unknown) BUN 20 H (units (unkno wn) date) unknown) (unknown) (no (unknown) (unknown) BUN/Creatinine (units (unknown) date) Ratio 21.7 unknown) (unknown) (no (unknown) (unknown) Baso # (Auto) 0 (units (unknown) date) unknown) (unknown) (no (unknown) (unknown) Baso % (Auto) 0.4 (units (unknown) date) unknown) (unknown) (no (unknown) (unknown) Blood Pressure (units (unknown) date) 106/32 L unknown) (unknown) (no (unknown) (unknown) Blood Pressure (units (unknown) date) 156/48 H unknown) (unknown) (no (unknown) (unknown) CHEST: Respiratory (units (unknown) date) excursions unknown) symmetric, coarse but CTAB (unknown) (no (unknown) (unknown) CV: RRR, no M/R/G (units (unknown) date) unknown) (unknown) (no (unknown) (unknown) Calcium 7.6 L (units ( unknown) date) unknown) (unknown) (no (unknown) (unknown) Carbon Dioxide 24 (units (unknown) date) unknown) (unknown) (no (unknown) (unknown) Chloride 103 (units (u nknown) date) unknown) (unknown) (no (unknown) (unknown) Code status (units (un known) date) unknown) (unknown) (no (unknown) (unknown) Continue Lovenox (units (unknown) date) unknown) (unknown) (no (unknown) (unknown) Continue (units (unkno wn) date) levothyroxine unknown) (unknown) (no (unknown) (unknown) Continue (units (unkno wn) date) outpatient dose of unknown) Lamictal.? She also uses diazepam at bedtime for (unknown) (no (unknown) (unknown) Creatinine 0.92 (units (unknown) date) unknown) (unknown) (no (unknown) (unknown) Critical Care (units ( unknown) date) time: unknown) (unknown) (no (unknown) (unknown) : 1950 (units (unknown) date) Acct:[id number] unknown) (unknown) (no (unknown) (unknown) Date Patient Seen: (units (unknown) date) 03/27/22 unknown) (unknown) (no (unknown) (unknown) Date of Service: (units (unknown) date) 03/23/22 unknown) (unknown) (no (unknown) (unknown) Deep Vein (units (unkn own) date) Thrombosis/Pulmonar unknown) y Embolism Present on Admission: No (unknown) (no (unknown) (unknown) Disposition (units (un known) date) unknown) (unknown) (no (unknown) (unknown) EXTR: warm, well (units (unknown) date) perfused, no C/C/E unknown) (unknown) (no (unknown) (unknown) Eos # (Auto) 500 H (units (unknown) date) unknown) (unknown) (no (unknown) (unknown) Eos % (Auto) 5.4 H (units (unknown) date) unknown) (unknown) (no (unknown) (unknown) Estimated GFR > 60 (units (unknown) date) unknown) (unknown) (no (unknown) (unknown) Exam Narrative: (units (unknown) date) unknown) (unknown) (no (unknown) (unknown) Exam (units (unkno wn) date) unknown) (unknown) (no (unknown) (unknown) Fibromyalgia (units (u nknown) date) unknown) (unknown) (no (unknown) (unknown) Fraction of (units (un known) date) Inspired Oxygen 93 unknown) (unknown) (no (unknown) (unknown) Full (units (unkno wn) date) unknown) (unknown) (no (unknown) (unknown) GEN: Alert and (units (unknown) date) oriented x 3, NAD unknown) (unknown) (no (unknown) (unknown) Glucose 111 H (units ( unknown) date) unknown) (unknown) (no (unknown) (unknown) HEENT:NC, Face (units (unknown) date) symmetric unknown) (unknown) (no (unknown) (unknown) Hct 29.4 L (units (unk nown) date) unknown) (unknown) (no (unknown) (unknown) Hgb 9.5 L (units (unkn own) date) unknown) (unknown) (no (unknown) (unknown) Home with HH on (units (unknown) date) 03/28. unknown) (unknown) (no (unknown) (unknown) Hypertension (units (u nknown) date) unknown) (unknown) (no (unknown) (unknown) Hypothyroidism (units (unknown) date) unknown) (unknown) (no (unknown) (unknown) I spent a total of (units (unknown) date) [] minutes of unknown) critical care time on this patient's care (unknown) (no (unknown) (unknown) Interval history: (units (unknown) date) unknown) (unknown) (no (unknown) (unknown) [facility] (units (unknown) date) [address] unknown) [place] [address] (unknown) (no (unknown) (unknown) L bolus of IV (units ( unknown) date) fluids followed by unknown) maintenance fluids. Should she develop signs (unknown) (no (unknown) (unknown) Laboratory Results (units (unknown) date) - last 24 hr unknown) (unknown) (no (unknown) (unknown) Labs (units (unkno wn) date) unknown) (unknown) (no (unknown) (unknown) Labs: (units (unkno wn) date) unknown) (unknown) (no (unknown) (unknown) Lymph # (Auto) (units (unknown) date) 1600 unknown) (unknown) (no (unknown) (unknown) Lymph % (Auto) (units (unknown) date) 18.5 L unknown) (unknown) (no (unknown) (unknown) MCH 28.7 (units (unkno wn) date) unknown) (unknown) (no (unknown) (unknown) MCHC 32.3 (units (unkn own) date) unknown) (unknown) (no (unknown) (unknown) MCV 88.8 (units (unkno wn) date) unknown) (unknown) (no (unknown) (unknown) Measuring 6.4 cm.? (units (unknown) date) She will need close unknown) follow-up.? She is on metoprolol for (unknown) (no (unknown) (unknown) Medical History (units (unknown) date) (Reviewed 03/24/22 unknown) @ 12:05 by Hay Au MD) (unknown) (no (unknown) (unknown) [place] # (Auto) 800 (units (unknown) date) unknown) (unknown) (no (unknown) (unknown) [place] % (Auto) 9.1 (units (unknown) date) unknown) (unknown) (no (unknown) (unknown) NEURO: Alert and (units (unknown) date) oriented x 3, unknown) nonfocal (unknown) (no (unknown) (unknown) Narrative (units (unkn own) date) unknown) (unknown) (no (unknown) (unknown) Neut # (Auto) 5800 (units (unknown) date) unknown) (unknown) (no (unknown) (unknown) Neut % (Auto) 66.6 (units (unknown) date) unknown) (unknown) (no (unknown) (unknown) No pertinent past (units (unknown) date) surgical history unknown) (unknown) (no (unknown) (unknown) Objective (units (unkn own) date) unknown) (unknown) (no (unknown) (unknown) Oxygen Delivery (units (unknown) date) Method Nasal unknown) Cannula Room Air (unknown) (no (unknown) (unknown) Oxygen Delivery (units (unknown) date) Method Room Air unknown) (unknown) (no (unknown) (unknown) Oxygen Delivery (units (unknown) date) Method unknown) (unknown) (no (unknown) (unknown) Oxygen Flow Rate 0 (units (unknown) date) unknown) (unknown) (no (unknown) (unknown) Oxygen Flow Rate 1 (units (unknown) date) 1 unknown) (unknown) (no (unknown) (unknown) PFSH (units (unkno wn) date) unknown) (unknown) (no (unknown) (unknown) Patient feeling (units (unknown) date) better today. Able unknown) to wean off O2 on home O2 eval. Had a temp of (unknown) (no (unknown) (unknown) Patient reportedly (units (unknown) date) had an NSTEMI at unknown) the end of February.? Troponin was 0.050, (unknown) (no (unknown) (unknown) Patient takes (units ( unknown) date) fentanyl 75 mcg Q unknown) 72 hours.? Patch was changed yesterday. (unknown) (no (unknown) (unknown) Patient was (units (unk nown) date) diuresed on unknown) March 24.? Despite a couple of boluses yesterday she (unknown) (no (unknown) (unknown) Patient: (units (unkno wn) date) Elidia Rock unknown) MR#: [id number] (unknown) (no (unknown) (unknown) Plt Count 185 (units ( unknown) date) unknown) (unknown) (no (unknown) (unknown) Postoperatively, (units (unknown) date) patient did require unknown) 5 L of oxygen via nasal cannula.? At (unknown) (no (unknown) (unknown) Potassium 4.2 (units ( unknown) date) unknown) (unknown) (no (unknown) (unknown) Progress Note (units ( unknown) date) unknown) (unknown) (no (unknown) (unknown) Prophylaxis (units (un known) date) unknown) (unknown) (no (unknown) (unknown) Provider: (units (unkn own) date) Heraclio Mckeon unknown) D.O. (unknown) (no (unknown) (unknown) Pulse Oximetry 90 (units (unknown) date) L unknown) (unknown) (no (unknown) (unknown) Pulse Oximetry 98 (units (unknown) date) 93 95 unknown) (unknown) (no (unknown) (unknown) Pulse Rate 53 L (units (unknown) date) unknown) (unknown) (no (unknown) (unknown) Pulse Rate 62 (units ( unknown) date) unknown) (unknown) (no (unknown) (unknown) Quality (units (unkno wn) date) unknown) (unknown) (no (unknown) (unknown) RBC 3.31 L (units (unk nown) date) unknown) (unknown) (no (unknown) (unknown) RDW 14.1 (units (unkno wn) date) unknown) (unknown) (no (unknown) (unknown) Respiratory Rate (units (unknown) date) 16 unknown) (unknown) (no (unknown) (unknown) Respiratory Rate (units (unknown) date) 17 unknown) (unknown) (no (unknown) (unknown) Restrictive lung (units (unknown) date) disease unknown) (unknown) (no (unknown) (unknown) Result Diagrams: (units (unknown) date) unknown) (unknown) (no (unknown) (unknown) SKIN: warm and (units (unknown) date) dry, no rash unknown) (unknown) (no (unknown) (unknown) She is not on any (units (unknown) date) outpatient unknown) medications or inhalers. (unknown) (no (unknown) (unknown) Signed (units (unkno wn) date) By:<Electronically unknown) signed by Heraclio Mckeon D.O.> (unknown) (no (unknown) (unknown) Smoking Status: (units (unknown) date) Former smoker unknown) (unknown) (no (unknown) (unknown) Social History (units (unknown) date) (Reviewed 03/23/22 unknown) @ 16:07 by Liam Colón MD) (unknown) (no (unknown) (unknown) Sodium 132 L (units (u nknown) date) unknown) (unknown) (no (unknown) (unknown) Subjective (units (unk nown) date) unknown) (unknown) (no (unknown) (unknown) Surgical History (units (unknown) date) (Reviewed 03/24/22 unknown) @ 12:05 by Hay Au MD) (unknown) (no (unknown) (unknown) Temperature 100.3 (units (unknown) date) F H unknown) (unknown) (no (unknown) (unknown) Temperature 98.2 F (units (unknown) date) unknown) (unknown) (no (unknown) (unknown) Time Spent With (units (unknown) date) Patient unknown) (unknown) (no (unknown) (unknown) VTE (units (unkno wn) date) unknown) (unknown) (no (unknown) (unknown) Vital Signs (units (un known) date) unknown) (unknown) (no (unknown) (unknown) WBC 8.7 (units (unkno wn) date) unknown) (unknown) (no (unknown) (unknown) [Embedded Image (units (unknown) date) Not Available] unknown) (unknown) (no (unknown) (unknown) alcohol intake: (units (unknown) date) current unknown) (unknown) (no (unknown) (unknown) baseline she does (units (unknown) date) not require unknown) oxygen.? Patient has known idiopathic pulmonary (unknown) (no (unknown) (unknown) blood pressure (units (unknown) date) control. unknown) (unknown) (no (unknown) (unknown) but could be (units (u nknown) date) related to unknown) underlying lung disease and anesthesia for surgery.? No (unknown) (no (unknown) (unknown) clear evidence of (units (unknown) date) aspiration. Will unknown) have RT perform a desat study. (unknown) (no (unknown) (unknown) continues to be (units (unknown) date) hypovolemic. Her unknown) oral intake remains marginal. Will give a 1 (unknown) (no (unknown) (unknown) control. Patient's (units (unknown) date) goal is to return unknown) home with home health. Her partner is a (unknown) (no (unknown) (unknown) diurese. (units (unkno wn) date) Clinically however unknown) she appears dry with dark concentrated urine, and (unknown) (no (unknown) (unknown) down trending to (units (unknown) date) 0.041.? It likely unknown) to be cardiac demand ischemia. (unknown) (no (unknown) (unknown) fibrosis.? She was (units (unknown) date) initially treated unknown) with IV furosemide.? O2 need is now down to (unknown) (no (unknown) (unknown) fracture (units (unkno wn) date) unknown) (unknown) (no (unknown) (unknown) household members: (units (unknown) date) significant other unknown) (unknown) (no (unknown) (unknown) of worsening (units (u nknown) date) respiratory status unknown) or volume overload, would DC IV fluids and (unknown) (no (unknown) (unknown) report of marginal (units (unknown) date) oral intake. unknown) (unknown) (no (unknown) (unknown) sleep. (units (unkno wn) date) unknown) (unknown) (no (unknown) (unknown) substance use (units ( unknown) date) type: does not use unknown) (unknown) (no (unknown) (unknown) today; this time (units (unknown) date) is exclusive of unknown) procedural time. 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 Result panel 185 (unknown) (no (unknown) (unknown) (no value) (units (unk nown) date) unknown) (unknown) (no (unknown) (unknown) (past 8 hours): (units (unknown) date) unknown) (unknown) (no (unknown) (unknown) [id number] (units (unkno wn) date) unknown) (unknown) (no (unknown) (unknown) 03:10 (units (unkno wn) date) unknown) (unknown) (no (unknown) (unknown) 1 tab PO DAILY (units (unknown) date) unknown) (unknown) (no (unknown) (unknown) 1 tab PO Q6H PRN (units (unknown) date) (Reason: Pain unknown) (Scale Score 4-6)) (unknown) (no (unknown) (unknown) 1 unit PO DAILY (units (unknown) date) unknown) (unknown) (no (unknown) (unknown) 10 mg PO BEDTIME (units (unknown) date) unknown) (unknown) (no (unknown) (unknown) 100 mg PO BEDTIME (units (unknown) date) unknown) (unknown) (no (unknown) (unknown) 03/23/22 17:03 (units (unknown) date) unknown) (unknown) (no (unknown) (unknown) 03/23/22 17:05 (units (unknown) date) unknown) (unknown) (no (unknown) (unknown) 03/23/22 17:07 (units (unknown) date) unknown) (unknown) (no (unknown) (unknown) 03/24/22 23:44 (units (unknown) date) unknown) (unknown) (no (unknown) (unknown) 03/27/22 05:00 (units (unknown) date) unknown) (unknown) (no (unknown) (unknown) 03/28/22 (units (unkno wn) date) unknown) (unknown) (no (unknown) (unknown) 40 mg PO DAILY (units (unknown) date) Qty: 0 unknown) (unknown) (no (unknown) (unknown) 50 mcg PO DAILY (units (unknown) date) unknown) (unknown) (no (unknown) (unknown) 50 mg PO BID (units (u nknown) date) unknown) (unknown) (no (unknown) (unknown) 50 mg PO DAILY (units (unknown) date) unknown) (unknown) (no (unknown) (unknown) 75 mcg PO DAILY (units (unknown) date) unknown) (unknown) (no (unknown) (unknown) 75 mcg (units (unkno wn) date) transdermal 3XD unknown) (unknown) (no (unknown) (unknown) ABD: Soft, NT/ND, (units (unknown) date) BT present in all unknown) 4 quadrants, no organomegaly or masses (unknown) (no (unknown) (unknown) Activity: (units (unkn own) date) Weightbearing as unknown) tolerated LLE. Posterior hip precautions (no flexion (unknown) (no (unknown) (unknown) Age/Sex: 72 / F (units (unknown) date) unknown) (unknown) (no (unknown) (unknown) Blood Pressure (units (unknown) date) 185/63 H unknown) (unknown) (no (unknown) (unknown) CHEST: (units (unkno wn) date) Respiratory unknown) excursions symmetric, coarse but CTAB (unknown) (no (unknown) (unknown) CV: RRR, no M/R/G (units (unknown) date) unknown) (unknown) (no (unknown) (unknown) Chief complaint: (units (unknown) date) hip pain unknown) (unknown) (no (unknown) (unknown) Cold/Heat (units (unkn own) date) Therapy: Ice to unknown) hip as needed for pain. (unknown) (no (unknown) (unknown) Comment: (units (unkno wn) date) unknown) (unknown) (no (unknown) (unknown) Consult to (units (unk nown) date) Discharge Planning unknown) Routine (unknown) (no (unknown) (unknown) Consult to (units (unk nown) date) Orthopedic Surgery unknown) Stat (unknown) (no (unknown) (unknown) Consult to (units (unk nown) date) Physical Therapy unknown) Evaluate + Treat (unknown) (no (unknown) (unknown) Consulting (units (unk nown) date) Provider: unknown) Hay Au (unknown) (no (unknown) (unknown) Consults: (units (unkn own) date) unknown) (unknown) (no (unknown) (unknown) : 1950 (units (unknown) date) Acct:[id number] unknown) (unknown) (no (unknown) (unknown) Date Patient (units (u nknown) date) Seen: 03/28/22 unknown) (unknown) (no (unknown) (unknown) Date of Onset of (units (unknown) date) Symptoms: 03/23/22 unknown) (unknown) (no (unknown) (unknown) Date of Service: (units (unknown) date) 03/23/22 unknown) (unknown) (no (unknown) (unknown) Date of (units (unkno wn) date) admission: unknown) (unknown) (no (unknown) (unknown) Deep Vein (units (unkn own) date) Thrombosis/Pulmona unknown) ry Embolism Present on Admission: No (unknown) (no (unknown) (unknown) Diet/Activity/[place]y (units (unknown) date) atments unknown) (unknown) (no (unknown) (unknown) Discharge Data (units (unknown) date) unknown) (unknown) (no (unknown) (unknown) Discharge Date: (units (unknown) date) 03/28/22 unknown) (unknown) (no (unknown) (unknown) Discharge Plan (units (unknown) date) unknown) (unknown) (no (unknown) (unknown) Discharge (units (unkn own) date) Providers unknown) (unknown) (no (unknown) (unknown) Discharge Summary (units (unknown) date) unknown) (unknown) (no (unknown) (unknown) Discharge orders (units (unknown) date) + Medications unknown) (unknown) (no (unknown) (unknown) Discharge (units (unkn own) date) provider: unknown) (unknown) (no (unknown) (unknown) Dressing: August (units ( unknown) date) shower; leave unknown) Aquacel dressing in place until follow up (unknown) (no (unknown) (unknown) EXTR: warm, well (units (unknown) date) perfused, no C/C/E unknown) (unknown) (no (unknown) (unknown) Exam Narrative: (units (unknown) date) unknown) (unknown) (no (unknown) (unknown) Exam (units (unkno wn) date) unknown) (unknown) (no (unknown) (unknown) Falls, DI for (units ( unknown) date) Taking Pain unknown) Medication (unknown) (no (unknown) (unknown) Fibromyalgia (units (u nknown) date) unknown) (unknown) (no (unknown) (unknown) Follow (units (unkno wn) date) up/Referrals: unknown) (unknown) (no (unknown) (unknown) Fraction of (units (un known) date) Inspired Oxygen 93 unknown) (unknown) (no (unknown) (unknown) GEN: Alert and (units (unknown) date) oriented x 3, NAD unknown) (unknown) (no (unknown) (unknown) Roe for xrays (units (unknown) date) in 6 weeks.) unknown) (unknown) (no (unknown) (unknown) Hay Au MD (units (unknown) date) [Physician] - 2 unknown) Weeks (Follow up w/ PA @ [facility] (unknown) (no (unknown) (unknown) HEENT:NC, Face (units (unknown) date) symmetric unknown) (unknown) (no (unknown) (unknown) Has provider been (units (unknown) date) notified: Yes unknown) (unknown) (no (unknown) (unknown) History of (units (unk nown) date) Present Illness unknown) (unknown) (no (unknown) (unknown) Hypertension (units (u nknown) date) unknown) (unknown) (no (unknown) (unknown) Hypothyroidism (units (unknown) date) unknown) (unknown) (no (unknown) (unknown) Instructions: DI (units (unknown) date) for Hip unknown) Replacement, DI for Constipation, How to Prevent (unknown) (no (unknown) (unknown) [facility] (units (unknown) date) [address] unknown) [place] [address] (unknown) (no (unknown) (unknown) Labs (units (unkno wn) date) unknown) (unknown) (no (unknown) (unknown) Elidia is a (units (un known) date) 72-year-old female unknown) who sustained a ground level fall yesterday. She (unknown) (no (unknown) (unknown) Darrell Cottrell, (units (unknown) date) [Primary Care unknown) Provider] (unknown) (no (unknown) (unknown) Heraclio Mckeon, (units (unknown) date) DO unknown) (unknown) (no (unknown) (unknown) Medical History (units (unknown) date) (Reviewed 03/24/22 unknown) @ 12:05 by Hay Au MD) (unknown) (no (unknown) (unknown) NEURO: Alert and (units (unknown) date) oriented x 3, unknown) nonfocal (unknown) (no (unknown) (unknown) Narrative (units (unkn own) date) unknown) (unknown) (no (unknown) (unknown) Narrative: (units (unk nown) date) unknown) (unknown) (no (unknown) (unknown) No Action (units (unkn own) date) unknown) (unknown) (no (unknown) (unknown) No pertinent past (units (unknown) date) surgical history unknown) (unknown) (no (unknown) (unknown) Objective (units (unkn own) date) unknown) (unknown) (no (unknown) (unknown) Orthopedics in 2 (units (unknown) date) weeks for wound unknown) check and staple removal. Follow up w/ Dr (unknown) (no (unknown) (unknown) Oxygen Delivery (units (unknown) date) Method Room Air unknown) (unknown) (no (unknown) (unknown) Oxygen Flow Rate (units (unknown) date) 0 unknown) (unknown) (no (unknown) (unknown) PFSH (units (unkno wn) date) unknown) (unknown) (no (unknown) (unknown) Patient (units (unkno wn) date) Disposition: Home unknown) Health Service (unknown) (no (unknown) (unknown) Patient: (units (unkno wn) date) Elidia Rock unknown) MR#: [id number] (unknown) (no (unknown) (unknown) Physician (units (unkn own) date) Instructions: unknown) Evaluate and Treat (unknown) (no (unknown) (unknown) Prescriptions: (units (unknown) date) unknown) (unknown) (no (unknown) (unknown) Primary Care (units (u nknown) date) Provider: unknown) Darrell Cottrell (unknown) (no (unknown) (unknown) Primary care (units (u nknown) date) physician: unknown) (unknown) (no (unknown) (unknown) Provider (units (unkno wn) date) Discharge Comment: unknown) You will now take Aspirin 81 mg twice daily for 4 (unknown) (no (unknown) (unknown) Provider (units (unkno wn) date) unknown) (unknown) (no (unknown) (unknown) Provider: (units (unkn own) date) Heraclio Mckeon unknown) D.O. (unknown) (no (unknown) (unknown) Pulse Oximetry 93 (units (unknown) date) unknown) (unknown) (no (unknown) (unknown) Pulse Rate 67 (units ( unknown) date) unknown) (unknown) (no (unknown) (unknown) Quality (units (unkno wn) date) unknown) (unknown) (no (unknown) (unknown) Reason for (units (unk nown) date) consultation: left unknown) hip fracture (unknown) (no (unknown) (unknown) Report to your (units (unknown) date) healthcare unknown) provider any signs of infection, such as:: chills, (unknown) (no (unknown) (unknown) Respiratory Rate (units (unknown) date) 19 unknown) (unknown) (no (unknown) (unknown) Restrictive lung (units (unknown) date) disease unknown) (unknown) (no (unknown) (unknown) Result Diagrams: (units (unknown) date) unknown) (unknown) (no (unknown) (unknown) Darrell Cottrell (units (unknown) date) unknown) (unknown) (no (unknown) (unknown) Rx Instructions: (units (unknown) date) unknown) (unknown) (no (unknown) (unknown) SKIN: warm and (units (unknown) date) dry, no rash unknown) (unknown) (no (unknown) (unknown) Signed By: (units (unk nown) date) unknown) (unknown) (no (unknown) (unknown) Skin/Wound/Dressi (units (unknown) date) ng Care unknown) (unknown) (no (unknown) (unknown) Smoking Status: (units (unknown) date) Former smoker unknown) (unknown) (no (unknown) (unknown) Social History (units (unknown) date) (Reviewed 03/23/22 unknown) @ 16:07 by Liam Colón MD) (unknown) (no (unknown) (unknown) Summary (units (unkno wn) date) unknown) (unknown) (no (unknown) (unknown) Surgical History (units (unknown) date) (Reviewed 03/24/22 unknown) @ 12:05 by Hay Au MD) (unknown) (no (unknown) (unknown) Takes 1 to 2 (units (u nknown) date) tablets every 6 unknown) hours (unknown) (no (unknown) (unknown) Takes 1/2 tab of (units (unknown) date) the 100mg in the unknown) AM (unknown) (no (unknown) (unknown) Takes 2 tablets (units (unknown) date) daily unknown) (unknown) (no (unknown) (unknown) Temperature 98.7 (units (unknown) date) F unknown) (unknown) (no (unknown) (unknown) Time Patient (units (u nknown) date) Seen: 12:03 unknown) (unknown) (no (unknown) (unknown) Time Spent with (units (unknown) date) Patient unknown) (unknown) (no (unknown) (unknown) Time spent: (units (un known) date) Greater than 30 unknown) minutes (unknown) (no (unknown) (unknown) VTE (units (unkno wn) date) unknown) (unknown) (no (unknown) (unknown) Visit (units (unkno wn) date) Report/Discharge unknown) Packet (unknown) (no (unknown) (unknown) Vital Signs (units (un known) date) unknown) (unknown) (no (unknown) (unknown) [Embedded Image (units (unknown) date) Not Available] unknown) (unknown) (no (unknown) (unknown) alcohol intake: (units (unknown) date) current unknown) (unknown) (no (unknown) (unknown) also had a (units (unk nown) date) ultrasound which unknown) was negative. She has past medical history of (unknown) (no (unknown) (unknown) any other (units (unkn own) date) constitutional unknown) symptoms. (unknown) (no (unknown) (unknown) appointment. No (units (unknown) date) bathing or unknown) otherwise soaking incision. Call the office if the (unknown) (no (unknown) (unknown) cholecalciferol (units (unknown) date) (vitamin D3) 50 unknown) mcg (2,000 unit) Tablet (unknown) (no (unknown) (unknown) demonstrating a (units (unknown) date) left femoral neck unknown) fracture. Of note, she had a NSTEMI at the (unknown) (no (unknown) (unknown) diazepam [Valium] (units (unknown) date) 10 mg Tablet unknown) (unknown) (no (unknown) (unknown) dressing becomes (units (unknown) date) saturated inside. unknown) (unknown) (no (unknown) (unknown) end of February. (units (unknown) date) Currently her unknown) troponins are 0.05 and still trending down, she (unknown) (no (unknown) (unknown) felt immediate (units (unknown) date) pain and was unknown) unable to bear weight on her left side. She was bro (unknown) (no (unknown) (unknown) fentanyl 75 (units (un known) date) mcg/hr patch 72 unknown) hour (unknown) (no (unknown) (unknown) fever, night (units (u nknown) date) sweats, unusual unknown) drainage and unusual redness (unknown) (no (unknown) (unknown) fibromyalgia and (units (unknown) date) has a fentanyl unknown) patch and has oxycodone at home. Her pain (unknown) (no (unknown) (unknown) fluoxetine (units (unk nown) date) [Prozac] 40 MG unknown) capsule (unknown) (no (unknown) (unknown) household (units (unkn own) date) members: unknown) significant other (unknown) (no (unknown) (unknown) lamotrigine (units (un known) date) [Lamictal] 100 mg unknown) Tablet (unknown) (no (unknown) (unknown) last patch (units (unk nown) date) applied 03/22 on unknown) left wrist (unknown) (no (unknown) (unknown) levothyroxine 75 (units (unknown) date) mcg Tablet unknown) (unknown) (no (unknown) (unknown) management is (units ( unknown) date) being done by her unknown) primary care doctor in [place]. She does live (unknown) (no (unknown) (unknown) metoprolol (units (unk nown) date) tartrate 50 mg unknown) Tablet (unknown) (no (unknown) (unknown) oxycodone-acetami (units (unknown) date) nophen [Percocet] unknown) 5-325 mg Tablet (unknown) (no (unknown) (unknown) stairs in her (units ( unknown) date) home. She denies unknown) any recent nausea, vomiting, fevers, chills or (unknown) (no (unknown) (unknown) substance use (units ( unknown) date) type: does not use unknown) (unknown) (no (unknown) (unknown) ught to [place] [facility] Department where imaging was obtained (unknown) (no (unknown) (unknown) vitamin B complex (units (unknown) date) Tablet unknown) (unknown) (no (unknown) (unknown) vitamin E 400 (units ( unknown) date) unit Tablet unknown) (unknown) (no (unknown) (unknown) w/ adduction and (units (unknown) date) internal unknown) rotation). (unknown) (no (unknown) (unknown) weeks for clot (units (unknown) date) prophylaxis. unknown) (unknown) (no (unknown) (unknown) with her partner (units (unknown) date) who is able to unknown) take care of her and she does not have any Result panel 186 (unknown) (no (unknown) (unknown) (no value) (units (unk nown) date) unknown) (unknown) (no (unknown) (unknown) (past 8 hours): (units (unknown) date) unknown) (unknown) (no (unknown) (unknown) [id number] (units (unkno wn) date) unknown) (unknown) (no (unknown) (unknown) 03:10 (units (unkno wn) date) unknown) (unknown) (no (unknown) (unknown) 1 tab PO DAILY (units (unknown) date) unknown) (unknown) (no (unknown) (unknown) 1 tab PO Q6H PRN (units (unknown) date) (Reason: Pain unknown) (Scale Score 4-6)) (unknown) (no (unknown) (unknown) 1 unit PO DAILY (units (unknown) date) unknown) (unknown) (no (unknown) (unknown) 10 mg PO BEDTIME (units (unknown) date) unknown) (unknown) (no (unknown) (unknown) 100 mg PO BEDTIME (units (unknown) date) unknown) (unknown) (no (unknown) (unknown) 03/23/22 17:03 (units (unknown) date) unknown) (unknown) (no (unknown) (unknown) 03/23/22 17:05 (units (unknown) date) unknown) (unknown) (no (unknown) (unknown) 03/23/22 17:07 (units (unknown) date) unknown) (unknown) (no (unknown) (unknown) 03/24/22 23:44 (units (unknown) date) unknown) (unknown) (no (unknown) (unknown) 03/27/22 05:00 (units (unknown) date) unknown) (unknown) (no (unknown) (unknown) 03/28/22 (units (unkno wn) date) unknown) (unknown) (no (unknown) (unknown) 40 mg PO DAILY (units (unknown) date) Qty: 0 unknown) (unknown) (no (unknown) (unknown) 5 mg PO Q4HR PRN (units (unknown) date) (Reason: Pain, unknown) Moderate (4-6)) Qty: 30 0RF (unknown) (no (unknown) (unknown) 50 mcg PO DAILY (units (unknown) date) unknown) (unknown) (no (unknown) (unknown) 50 mg PO BID (units (u nknown) date) unknown) (unknown) (no (unknown) (unknown) 50 mg PO DAILY (units (unknown) date) unknown) (unknown) (no (unknown) (unknown) 75 mcg PO DAILY (units (unknown) date) unknown) (unknown) (no (unknown) (unknown) 75 mcg (units (unkno wn) date) transdermal 3XD unknown) (unknown) (no (unknown) (unknown) 81 mg PO BID 28 (units (unknown) date) Days Qty: 56 0RF unknown) (unknown) (no (unknown) (unknown) ABD: Soft, NT/ND, (units (unknown) date) BT present in all unknown) 4 quadrants, no organomegaly or masses (unknown) (no (unknown) (unknown) Activity: (units (unkn own) date) Weightbearing as unknown) tolerated LLE. Posterior hip precautions (no flexion (unknown) (no (unknown) (unknown) Age/Sex: 72 / F (units (unknown) date) unknown) (unknown) (no (unknown) (unknown) Blood Pressure (units (unknown) date) 185/63 H unknown) (unknown) (no (unknown) (unknown) CHEST: (units (unkno wn) date) Respiratory unknown) excursions symmetric, coarse but CTAB (unknown) (no (unknown) (unknown) CV: RRR, no M/R/G (units (unknown) date) unknown) (unknown) (no (unknown) (unknown) Chief complaint: (units (unknown) date) hip pain unknown) (unknown) (no (unknown) (unknown) Cold/Heat (units (unkn own) date) Therapy: Ice to unknown) hip as needed for pain. (unknown) (no (unknown) (unknown) Comment: (units (o wn) date) unknown) (unknown) (no (unknown) (unknown) Consult to (units (unk nown) date) Discharge Planning unknown) Routine (unknown) (no (unknown) (unknown) Consult to (units (unk n) date) Orthopedic Surgery unknown) Stat (unknown) (no (unknown) (unknown) Consult to (units (unk n) date) Physical Therapy unknown) Evaluate + Treat (unknown) (no (unknown) (unknown) Consulting (units (unk nown) date) Provider: unknown) Hay Au (unknown) (no (unknown) (unknown) Consults: (units (unkn own) date) unknown) (unknown) (no (unknown) (unknown) Continued (units (unkn own) date) unknown) (unknown) (no (unknown) (unknown) : 1950 (units (unknown) date) Acct:[id number] unknown) (unknown) (no (unknown) (unknown) Date Patient (units (u nknown) date) Seen: 03/28/22 unknown) (unknown) (no (unknown) (unknown) Date of Onset of (units (unknown) date) Symptoms: 03/23/22 unknown) (unknown) (no (unknown) (unknown) Date of Service: (units (unknown) date) 03/23/22 unknown) (unknown) (no (unknown) (unknown) Date of (units (unkno wn) date) admission: unknown) (unknown) (no (unknown) (unknown) Deep Vein (units (unkn own) date) Thrombosis/Pulmona unknown) ry Embolism Present on Admission: No (unknown) (no (unknown) (unknown) Diet/Activity/Casey (units (unknown) date) atments unknown) (unknown) (no (unknown) (unknown) Discharge Data (units (unknown) date) unknown) (unknown) (no (unknown) (unknown) Discharge Date: (units (unknown) date) 03/28/22 unknown) (unknown) (no (unknown) (unknown) Discharge Plan (units (unknown) date) unknown) (unknown) (no (unknown) (unknown) Discharge (units (unkn own) date) Providers unknown) (unknown) (no (unknown) (unknown) Discharge Summary (units (unknown) date) unknown) (unknown) (no (unknown) (unknown) Discharge orders (units (unknown) date) + Medications unknown) (unknown) (no (unknown) (unknown) Discharge (units (unkn own) date) provider: unknown) (unknown) (no (unknown) (unknown) Dressing: May (units ( unknown) date) shower; leave unknown) Aquacel dressing in place until follow up (unknown) (no (unknown) (unknown) EXTR: warm, well (units (unknown) date) perfused, no C/C/E unknown) (unknown) (no (unknown) (unknown) Exam Narrative: (units (unknown) date) unknown) (unknown) (no (unknown) (unknown) Exam (units (unkno wn) date) unknown) (unknown) (no (unknown) (unknown) Falls, DI for (units ( unknown) date) Taking Pain unknown) Medication (unknown) (no (unknown) (unknown) Fibromyalgia (units (u nknown) date) unknown) (unknown) (no (unknown) (unknown) Follow (units (unkno wn) date) up/Referrals: unknown) (unknown) (no (unknown) (unknown) Fraction of (units (un known) date) Inspired Oxygen 93 unknown) (unknown) (no (unknown) (unknown) GEN: Alert and (units (unknown) date) oriented x 3, NAD unknown) (unknown) (no (unknown) (unknown) Roe for xrays (units (unknown) date) in 6 weeks.) unknown) (unknown) (no (unknown) (unknown) Hay Au MD (units (unknown) date) [Physician] - 2 unknown) Weeks (Follow up w/ PA @ [facility] (unknown) (no (unknown) (unknown) HEENT:NC, Face (units (unknown) date) symmetric unknown) (unknown) (no (unknown) (unknown) Has provider been (units (unknown) date) notified: Yes unknown) (unknown) (no (unknown) (unknown) History of (units (unk nown) date) Present Illness unknown) (unknown) (no (unknown) (unknown) Hypertension (units (u nknown) date) unknown) (unknown) (no (unknown) (unknown) Hypothyroidism (units (unknown) date) unknown) (unknown) (no (unknown) (unknown) Instructions: DI (units (unknown) date) for Hip unknown) Replacement, DI for Constipation, How to Prevent (unknown) (no (unknown) (unknown) [facility] (units (unknown) date) [address] unknown) [place] [address] (unknown) (no (unknown) (unknown) Labs (units (unkno wn) date) unknown) (unknown) (no (unknown) (unknown) Elidia is a (units (un known) date) 72-year-old female unknown) who sustained a ground level fall yesterday. She (unknown) (no (unknown) (unknown) Darrell Cottrell, (units (unknown) date) [Primary Care unknown) Provider] (unknown) (no (unknown) (unknown) Heraclio Mckeon, (units (unknown) date) DO unknown) (unknown) (no (unknown) (unknown) Medical History (units (unknown) date) (Reviewed 03/24/22 unknown) @ 12:05 by Hay Au MD) (unknown) (no (unknown) (unknown) NEURO: Alert and (units (unknown) date) oriented x 3, unknown) nonfocal (unknown) (no (unknown) (unknown) Narrative (units (unkn own) date) unknown) (unknown) (no (unknown) (unknown) Narrative: (units (unk nown) date) unknown) (unknown) (no (unknown) (unknown) New (units (unkno wn) date) unknown) (unknown) (no (unknown) (unknown) No pertinent past (units (unknown) date) surgical history unknown) (unknown) (no (unknown) (unknown) Objective (units (unkn own) date) unknown) (unknown) (no (unknown) (unknown) Orthopedics in 2 (units (unknown) date) weeks for wound unknown) check and staple removal. Follow up w/ Dr (unknown) (no (unknown) (unknown) Oxygen Delivery (units (unknown) date) Method Room Air unknown) (unknown) (no (unknown) (unknown) Oxygen Flow Rate (units (unknown) date) 0 unknown) (unknown) (no (unknown) (unknown) PFSH (units (unkno wn) date) unknown) (unknown) (no (unknown) (unknown) Patient (units (unkno wn) date) Disposition: Home unknown) Health Service (unknown) (no (unknown) (unknown) Patient: (units (unkno wn) date) Elidia Rock K unknown) MR#: [id number] (unknown) (no (unknown) (unknown) Physician (units (unkn own) date) Instructions: unknown) Evaluate and Treat (unknown) (no (unknown) (unknown) Prescriptions: (units (unknown) date) unknown) (unknown) (no (unknown) (unknown) Primary Care (units (u nknown) date) Provider: unknown) Darrell Cottrell (unknown) (no (unknown) (unknown) Primary care (units (u nknown) date) physician: unknown) (unknown) (no (unknown) (unknown) Provider (units (unkno wn) date) Discharge Comment: unknown) You fell and broke your left hip which was repaired (unknown) (no (unknown) (unknown) Provider (units (unkno wn) date) unknown) (unknown) (no (unknown) (unknown) Provider: (units (unkn own) date) Heraclio Mckeon unknown) D.O. (unknown) (no (unknown) (unknown) Pulse Oximetry 93 (units (unknown) date) unknown) (unknown) (no (unknown) (unknown) Pulse Rate 67 (units ( unknown) date) unknown) (unknown) (no (unknown) (unknown) Quality (units (unkno wn) date) unknown) (unknown) (no (unknown) (unknown) Reason for (units (unk nown) date) consultation: left unknown) hip fracture (unknown) (no (unknown) (unknown) Report to your (units (unknown) date) healthcare unknown) provider any signs of infection, such as:: chills, (unknown) (no (unknown) (unknown) Respiratory Rate (units (unknown) date) 19 unknown) (unknown) (no (unknown) (unknown) Restrictive lung (units (unknown) date) disease unknown) (unknown) (no (unknown) (unknown) Result Diagrams: (units (unknown) date) unknown) (unknown) (no (unknown) (unknown) Darrell Cottrell, (units (unknown) date) unknown) (unknown) (no (unknown) (unknown) Rx Instructions: (units (unknown) date) unknown) (unknown) (no (unknown) (unknown) SKIN: warm and (units (unknown) date) dry, no rash unknown) (unknown) (no (unknown) (unknown) Signed By: (units (unk nown) date) unknown) (unknown) (no (unknown) (unknown) Skin/Wound/Dressi (units (unknown) date) ng Care unknown) (unknown) (no (unknown) (unknown) Smoking Status: (units (unknown) date) Former smoker unknown) (unknown) (no (unknown) (unknown) Social History (units (unknown) date) (Reviewed 03/23/22 unknown) @ 16:07 by Liam Colón MD) (unknown) (no (unknown) (unknown) Summary (units (unkno wn) date) unknown) (unknown) (no (unknown) (unknown) Surgical History (units (unknown) date) (Reviewed 03/24/22 unknown) @ 12:05 by Hay Au MD) (unknown) (no (unknown) (unknown) Takes 1 to 2 (units (u nknown) date) tablets every 6 unknown) hours (unknown) (no (unknown) (unknown) Takes 1/2 tab of (units (unknown) date) the 100mg in the unknown) AM (unknown) (no (unknown) (unknown) Takes 2 tablets (units (unknown) date) daily unknown) (unknown) (no (unknown) (unknown) Temperature 98.7 (units (unknown) date) F unknown) (unknown) (no (unknown) (unknown) Time Patient (units (u nknown) date) Seen: 12:03 unknown) (unknown) (no (unknown) (unknown) Time Spent with (units (unknown) date) Patient unknown) (unknown) (no (unknown) (unknown) Time spent: (units (un known) date) Greater than 30 unknown) minutes (unknown) (no (unknown) (unknown) VTE (units (unkno wn) date) unknown) (unknown) (no (unknown) (unknown) Visit (units (unkno wn) date) Report/Discharge unknown) Packet (unknown) (no (unknown) (unknown) Vital Signs (units (un known) date) unknown) (unknown) (no (unknown) (unknown) [Embedded Image (units (unknown) date) Not Available] unknown) (unknown) (no (unknown) (unknown) alcohol intake: (units (unknown) date) current unknown) (unknown) (no (unknown) (unknown) also had a (units (unk nown) date) ultrasound which unknown) was negative. She has past medical history of (unknown) (no (unknown) (unknown) any other (units (unkn own) date) constitutional unknown) symptoms. (unknown) (no (unknown) (unknown) appointment. No (units (unknown) date) bathing or unknown) otherwise soaking incision. Call the office if the (unknown) (no (unknown) (unknown) aspirin 81 mg (units ( unknown) date) Tablet,Delayed unknown) Release (Dr/Ec) (unknown) (no (unknown) (unknown) by ortho. You (units ( unknown) date) will now take unknown) Aspirin 81 mg twice daily for 4 weeks for clot (unknown) (no (unknown) (unknown) cholecalciferol (units (unknown) date) (vitamin D3) 50 unknown) mcg (2,000 unit) Tablet (unknown) (no (unknown) (unknown) demonstrating a (units (unknown) date) left femoral neck unknown) fracture. Of note, she had a NSTEMI at the (unknown) (no (unknown) (unknown) diazepam [Valium] (units (unknown) date) 10 mg Tablet unknown) (unknown) (no (unknown) (unknown) dressing becomes (units (unknown) date) saturated inside. unknown) (unknown) (no (unknown) (unknown) end of February. (units (unknown) date) Currently her unknown) troponins are 0.05 and still trending down, she (unknown) (no (unknown) (unknown) felt immediate (units (unknown) date) pain and was unknown) unable to bear weight on her left side. She was bro (unknown) (no (unknown) (unknown) fentanyl 75 (units (un known) date) mcg/hr patch 72 unknown) hour (unknown) (no (unknown) (unknown) fever, night (units (u nknown) date) sweats, unusual unknown) drainage and unusual redness (unknown) (no (unknown) (unknown) fibromyalgia and (units (unknown) date) has a fentanyl unknown) patch and has oxycodone at home. Her pain (unknown) (no (unknown) (unknown) fluoxetine (units (unk nown) date) [Prozac] 40 MG unknown) capsule (unknown) (no (unknown) (unknown) household (units (unkn own) date) members: unknown) significant other (unknown) (no (unknown) (unknown) lamotrigine (units (un known) date) [Lamictal] 100 mg unknown) Tablet (unknown) (no (unknown) (unknown) last patch (units (unk nown) date) applied 03/22 on unknown) left wrist (unknown) (no (unknown) (unknown) levothyroxine 75 (units (unknown) date) mcg Tablet unknown) (unknown) (no (unknown) (unknown) management is (units ( unknown) date) being done by her unknown) primary care doctor in [place]. She does live (unknown) (no (unknown) (unknown) metoprolol (units (unk nown) date) tartrate 50 mg unknown) Tablet (unknown) (no (unknown) (unknown) oxycodone 5 mg (units (unknown) date) Tablet unknown) (unknown) (no (unknown) (unknown) oxycodone-acetami (units (unknown) date) nophen [Percocet] unknown) 5-325 mg Tablet (unknown) (no (unknown) (unknown) prophylaxis. You (units (unknown) date) will need to unknown) follow-up with ortho in clinic. (unknown) (no (unknown) (unknown) stairs in her (units ( unknown) date) home. She denies unknown) any recent nausea, vomiting, fevers, chills or (unknown) (no (unknown) (unknown) substance use (units ( unknown) date) type: does not use unknown) (unknown) (no (unknown) (unknown) ught to [place] [facility] ([facility]) [facility] Department where imaging was obtained (unknown) (no (unknown) (unknown) vitamin B complex (units (unknown) date) Tablet unknown) (unknown) (no (unknown) (unknown) vitamin E 400 (units ( unknown) date) unit Tablet unknown) (unknown) (no (unknown) (unknown) w/ adduction and (units (unknown) date) internal unknown) rotation). (unknown) (no (unknown) (unknown) with her partner (units (unknown) date) who is able to unknown) take care of her and she does not have any Result panel 187 (unknown) (no (unknown) (unknown) (no value) (units (unk nown) date) unknown) (unknown) (no (unknown) (unknown) (past 8 hours): (units (unknown) date) unknown) (unknown) (no (unknown) (unknown) [id number] (units (unkno wn) date) unknown) (unknown) (no (unknown) (unknown) 03:10 (units (unkno wn) date) unknown) (unknown) (no (unknown) (unknown) 1 tab PO DAILY (units (unknown) date) unknown) (unknown) (no (unknown) (unknown) 1 tab PO Q6H PRN (units (unknown) date) (Reason: Pain unknown) (Scale Score 4-6)) (unknown) (no (unknown) (unknown) 1 unit PO DAILY (units (unknown) date) unknown) (unknown) (no (unknown) (unknown) 10 mg PO BEDTIME (units (unknown) date) unknown) (unknown) (no (unknown) (unknown) 100 mg PO BEDTIME (units (unknown) date) unknown) (unknown) (no (unknown) (unknown) 03/23/22 17:03 (units (unknown) date) unknown) (unknown) (no (unknown) (unknown) 03/23/22 17:05 (units (unknown) date) unknown) (unknown) (no (unknown) (unknown) 03/23/22 17:07 (units (unknown) date) unknown) (unknown) (no (unknown) (unknown) 03/24/22 23:44 (units (unknown) date) unknown) (unknown) (no (unknown) (unknown) 03/27/22 05:00 (units (unknown) date) unknown) (unknown) (no (unknown) (unknown) 03/28/22 (units (unkno wn) date) unknown) (unknown) (no (unknown) (unknown) 40 mg PO DAILY (units (unknown) date) Qty: 0 unknown) (unknown) (no (unknown) (unknown) 5 mg PO Q4HR PRN (units (unknown) date) (Reason: Pain, unknown) Moderate (4-6)) Qty: 30 0RF (unknown) (no (unknown) (unknown) 50 mcg PO DAILY (units (unknown) date) unknown) (unknown) (no (unknown) (unknown) 50 mg PO BID (units (u nknown) date) unknown) (unknown) (no (unknown) (unknown) 50 mg PO DAILY (units (unknown) date) unknown) (unknown) (no (unknown) (unknown) 75 mcg PO DAILY (units (unknown) date) unknown) (unknown) (no (unknown) (unknown) 75 mcg (units (unkno wn) date) transdermal 3XD unknown) (unknown) (no (unknown) (unknown) 81 mg PO BID 28 (units (unknown) date) Days Qty: 56 0RF unknown) (unknown) (no (unknown) (unknown) ABD: Soft, NT/ND, (units (unknown) date) BT present in all unknown) 4 quadrants, no organomegaly or masses (unknown) (no (unknown) (unknown) Activity: (units (unkn own) date) Weightbearing as unknown) tolerated to Left Lower Extremityfe. Posterior hip (unknown) (no (unknown) (unknown) Age/Sex: 72 / F (units (unknown) date) unknown) (unknown) (no (unknown) (unknown) Blood Pressure (units (unknown) date) 185/63 H unknown) (unknown) (no (unknown) (unknown) CHEST: (units (unkno wn) date) Respiratory unknown) excursions symmetric, coarse but CTAB (unknown) (no (unknown) (unknown) CV: RRR, no M/R/G (units (unknown) date) unknown) (unknown) (no (unknown) (unknown) Chief complaint: (units (unknown) date) hip pain unknown) (unknown) (no (unknown) (unknown) Cold/Heat (units (unkn own) date) Therapy: Ice to unknown) hip as needed for pain. (unknown) (no (unknown) (unknown) Comment: (units (unkno wn) date) unknown) (unknown) (no (unknown) (unknown) Consult to (units (unk n) date) Discharge Planning unknown) Routine (unknown) (no (unknown) (unknown) Consult to (units (unk n) date) Orthopedic Surgery unknown) Stat (unknown) (no (unknown) (unknown) Consult to (units (unk n) date) Physical Therapy unknown) Evaluate + Treat (unknown) (no (unknown) (unknown) Consulting (units (unk n) date) Provider: unknown) Hay Au (unknown) (no (unknown) (unknown) Consults: (units (unkn own) date) unknown) (unknown) (no (unknown) (unknown) Continued (units (unkn own) date) unknown) (unknown) (no (unknown) (unknown) : 1950 (units (unknown) date) Acct:[id number] unknown) (unknown) (no (unknown) (unknown) Date Patient (units (u nknown) date) Seen: 03/28/22 unknown) (unknown) (no (unknown) (unknown) Date of Onset of (units (unknown) date) Symptoms: 03/23/22 unknown) (unknown) (no (unknown) (unknown) Date of Service: (units (unknown) date) 03/23/22 unknown) (unknown) (no (unknown) (unknown) Date of (units (unkno wn) date) admission: unknown) (unknown) (no (unknown) (unknown) Deep Vein (units (unkn own) date) Thrombosis/Pulmona unknown) ry Embolism Present on Admission: No (unknown) (no (unknown) (unknown) Diet/Activity/Casey (units (unknown) date) atments unknown) (unknown) (no (unknown) (unknown) Discharge Data (units (unknown) date) unknown) (unknown) (no (unknown) (unknown) Discharge Date: (units (unknown) date) 03/28/22 unknown) (unknown) (no (unknown) (unknown) Discharge Plan (units (unknown) date) unknown) (unknown) (no (unknown) (unknown) Discharge (units (unkn own) date) Providers unknown) (unknown) (no (unknown) (unknown) Discharge Summary (units (unknown) date) unknown) (unknown) (no (unknown) (unknown) Discharge orders (units (unknown) date) + Medications unknown) (unknown) (no (unknown) (unknown) Discharge (units (unkn own) date) provider: unknown) (unknown) (no (unknown) (unknown) Dressing: May (units ( unknown) date) shower; leave unknown) Aquacel dressing in place until follow up (unknown) (no (unknown) (unknown) EXTR: warm, well (units (unknown) date) perfused, no C/C/E unknown) (unknown) (no (unknown) (unknown) Exam Narrative: (units (unknown) date) unknown) (unknown) (no (unknown) (unknown) Exam (units (unkno wn) date) unknown) (unknown) (no (unknown) (unknown) Falls, DI for (units ( unknown) date) Taking Pain unknown) Medication (unknown) (no (unknown) (unknown) Fibromyalgia (units (u nknown) date) unknown) (unknown) (no (unknown) (unknown) Follow (units (unkno wn) date) up/Referrals: unknown) (unknown) (no (unknown) (unknown) Fraction of (units (un known) date) Inspired Oxygen 93 unknown) (unknown) (no (unknown) (unknown) GEN: Alert and (units (unknown) date) oriented x 3, NAD unknown) (unknown) (no (unknown) (unknown) Hay Au MD (units (unknown) date) [Physician] - 2 unknown) Weeks (Follow up w/ PA @ [facility] (unknown) (no (unknown) (unknown) HEENT:NC, Face (units (unknown) date) symmetric unknown) (unknown) (no (unknown) (unknown) Has provider been (units (unknown) date) notified: Yes unknown) (unknown) (no (unknown) (unknown) History of (units (unk nown) date) Present Illness unknown) (unknown) (no (unknown) (unknown) Hypertension (units (u nknown) date) unknown) (unknown) (no (unknown) (unknown) Hypothyroidism (units (unknown) date) unknown) (unknown) (no (unknown) (unknown) Instructions: DI (units (unknown) date) for Hip unknown) Replacement, DI for Constipation, How to Prevent (unknown) (no (unknown) (unknown) [facility] (units (unknown) date) [address] unknown) [place] [address] (unknown) (no (unknown) (unknown) Labs (units (unkno wn) date) unknown) (unknown) (no (unknown) (unknown) Elidia is a (units (un known) date) 72-year-old female unknown) who sustained a ground level fall yesterday. She (unknown) (no (unknown) (unknown) Darrell Cottrell, (units (unknown) date) [Primary Care unknown) Provider] (unknown) (no (unknown) (unknown) Heraclio Mckeon, (units (unknown) date) DO unknown) (unknown) (no (unknown) (unknown) Medical History (units (unknown) date) (Reviewed 03/24/22 unknown) @ 12:05 by Hay Au MD) (unknown) (no (unknown) (unknown) NEURO: Alert and (units (unknown) date) oriented x 3, unknown) nonfocal (unknown) (no (unknown) (unknown) Narrative (units (unkn own) date) unknown) (unknown) (no (unknown) (unknown) Narrative: (units (unk nown) date) unknown) (unknown) (no (unknown) (unknown) New (units (unkno wn) date) unknown) (unknown) (no (unknown) (unknown) No pertinent past (units (unknown) date) surgical history unknown) (unknown) (no (unknown) (unknown) Objective (units (unkn own) date) unknown) (unknown) (no (unknown) (unknown) Orthopedics for (units (unknown) date) wound check and unknown) staple removal- 's nurse Maribell will call (unknown) (no (unknown) (unknown) Oxygen Delivery (units (unknown) date) Method Room Air unknown) (unknown) (no (unknown) (unknown) Oxygen Flow Rate (units (unknown) date) 0 unknown) (unknown) (no (unknown) (unknown) PFSH (units (unkno wn) date) unknown) (unknown) (no (unknown) (unknown) Patient (units (unkno wn) date) Disposition: Home unknown) Health Service (unknown) (no (unknown) (unknown) Patient: (units (unkno wn) date) Elidia Rock K unknown) MR#: [id number] (unknown) (no (unknown) (unknown) Physician (units (unkn own) date) Instructions: unknown) Evaluate and Treat (unknown) (no (unknown) (unknown) Prescriptions: (units (unknown) date) unknown) (unknown) (no (unknown) (unknown) Primary Care (units (u nknown) date) Provider: unknown) Darrell Cottrell (unknown) (no (unknown) (unknown) Primary care (units (u nknown) date) physician: unknown) (unknown) (no (unknown) (unknown) Provider (units (unkno wn) date) Discharge Comment: unknown) You fell and broke your left hip which was repaired (unknown) (no (unknown) (unknown) Provider (units (unkno wn) date) unknown) (unknown) (no (unknown) (unknown) Provider: (units (unkn own) date) Heraclio Mckeon unknown) D.O. (unknown) (no (unknown) (unknown) Pulse Oximetry 93 (units (unknown) date) unknown) (unknown) (no (unknown) (unknown) Pulse Rate 67 (units ( unknown) date) unknown) (unknown) (no (unknown) (unknown) Quality (units (unkno wn) date) unknown) (unknown) (no (unknown) (unknown) Reason for (units (unk nown) date) consultation: left unknown) hip fracture (unknown) (no (unknown) (unknown) Report to your (units (unknown) date) healthcare unknown) provider any signs of infection, such as:: chills, (unknown) (no (unknown) (unknown) Respiratory Rate (units (unknown) date) 19 unknown) (unknown) (no (unknown) (unknown) Restrictive lung (units (unknown) date) disease unknown) (unknown) (no (unknown) (unknown) Result Diagrams: (units (unknown) date) unknown) (unknown) (no (unknown) (unknown) Darrell Cottrell, (units (unknown) date) unknown) (unknown) (no (unknown) (unknown) Rx Instructions: (units (unknown) date) unknown) (unknown) (no (unknown) (unknown) SKIN: warm and (units (unknown) date) dry, no rash unknown) (unknown) (no (unknown) (unknown) Signed By: (units (unk nown) date) unknown) (unknown) (no (unknown) (unknown) Skin/Wound/Dressi (units (unknown) date) ng Care unknown) (unknown) (no (unknown) (unknown) Smoking Status: (units (unknown) date) Former smoker unknown) (unknown) (no (unknown) (unknown) Social History (units (unknown) date) (Reviewed 03/23/22 unknown) @ 16:07 by Liam Colón MD) (unknown) (no (unknown) (unknown) Summary (units (unkno wn) date) unknown) (unknown) (no (unknown) (unknown) Surgical History (units (unknown) date) (Reviewed 03/24/22 unknown) @ 12:05 by Hay Au MD) (unknown) (no (unknown) (unknown) Takes 1 to 2 (units (u nknown) date) tablets every 6 unknown) hours (unknown) (no (unknown) (unknown) Takes 1/2 tab of (units (unknown) date) the 100mg in the unknown) AM (unknown) (no (unknown) (unknown) Takes 2 tablets (units (unknown) date) daily unknown) (unknown) (no (unknown) (unknown) Temperature 98.7 (units (unknown) date) F unknown) (unknown) (no (unknown) (unknown) Time Patient (units (u nknown) date) Seen: 12:03 unknown) (unknown) (no (unknown) (unknown) Time Spent with (units (unknown) date) Patient unknown) (unknown) (no (unknown) (unknown) Time spent: (units (un known) date) Greater than 30 unknown) minutes (unknown) (no (unknown) (unknown) VTE (units (unkno wn) date) unknown) (unknown) (no (unknown) (unknown) Visit (units (unkno wn) date) Report/Discharge unknown) Packet (unknown) (no (unknown) (unknown) Vital Signs (units (un known) date) unknown) (unknown) (no (unknown) (unknown) [Embedded Image (units (unknown) date) Not Available] unknown) (unknown) (no (unknown) (unknown) alcohol intake: (units (unknown) date) current unknown) (unknown) (no (unknown) (unknown) also had a (units (unk nown) date) ultrasound which unknown) was negative. She has past medical history of (unknown) (no (unknown) (unknown) any other (units (unkn own) date) constitutional unknown) symptoms. (unknown) (no (unknown) (unknown) appointment. No (units (unknown) date) bathing or unknown) otherwise soaking incision. Call the office if the (unknown) (no (unknown) (unknown) aspirin 81 mg (units ( unknown) date) Tablet,Delayed unknown) Release (Dr/Ec) (unknown) (no (unknown) (unknown) by ortho. You (units ( unknown) date) will now take unknown) Aspirin 81 mg twice daily for 4 weeks for clot (unknown) (no (unknown) (unknown) cholecalciferol (units (unknown) date) (vitamin D3) 50 unknown) mcg (2,000 unit) Tablet (unknown) (no (unknown) (unknown) demonstrating a (units (unknown) date) left femoral neck unknown) fracture. Of note, she had a NSTEMI at the (unknown) (no (unknown) (unknown) diazepam [Valium] (units (unknown) date) 10 mg Tablet unknown) (unknown) (no (unknown) (unknown) dressing becomes (units (unknown) date) saturated inside. unknown) (unknown) (no (unknown) (unknown) end of February. (units (unknown) date) Currently her unknown) troponins are 0.05 and still trending down, she (unknown) (no (unknown) (unknown) felt immediate (units (unknown) date) pain and was unknown) unable to bear weight on her left side. She was bro (unknown) (no (unknown) (unknown) fentanyl 75 (units (un known) date) mcg/hr patch 72 unknown) hour (unknown) (no (unknown) (unknown) fever, night (units (u nknown) date) sweats, unusual unknown) drainage and unusual redness (unknown) (no (unknown) (unknown) fibromyalgia and (units (unknown) date) has a fentanyl unknown) patch and has oxycodone at home. Her pain (unknown) (no (unknown) (unknown) fluoxetine (units (unk nown) date) [Prozac] 40 MG unknown) capsule (unknown) (no (unknown) (unknown) household (units (unkn own) date) members: unknown) significant other (unknown) (no (unknown) (unknown) lamotrigine (units (un known) date) [Lamictal] 100 mg unknown) Tablet (unknown) (no (unknown) (unknown) last patch (units (unk nown) date) applied 03/22 on unknown) left wrist (unknown) (no (unknown) (unknown) levothyroxine 75 (units (unknown) date) mcg Tablet unknown) (unknown) (no (unknown) (unknown) management is (units ( unknown) date) being done by her unknown) primary care doctor in [place]. She does live (unknown) (no (unknown) (unknown) metoprolol (units (unk nown) date) tartrate 50 mg unknown) Tablet (unknown) (no (unknown) (unknown) oxycodone 5 mg (units (unknown) date) Tablet unknown) (unknown) (no (unknown) (unknown) oxycodone-acetami (units (unknown) date) nophen [Percocet] unknown) 5-325 mg Tablet (unknown) (no (unknown) (unknown) precautions (no (units (unknown) date) flexion w/ unknown) adduction and internal rotation). (unknown) (no (unknown) (unknown) prophylaxis. You (units (unknown) date) will need to unknown) follow-up with ortho in clinic. (unknown) (no (unknown) (unknown) stairs in her (units ( unknown) date) home. She denies unknown) any recent nausea, vomiting, fevers, chills or (unknown) (no (unknown) (unknown) substance use (units ( unknown) date) type: does not use unknown) (unknown) (no (unknown) (unknown) ught to [place] (units (unknown) date) [facility] Department where imaging was obtained (unknown) (no (unknown) (unknown) vitamin B complex (units (unknown) date) Tablet unknown) (unknown) (no (unknown) (unknown) vitamin E 400 (units ( unknown) date) unit Tablet unknown) (unknown) (no (unknown) (unknown) weeks.) (units (unkno wn) date) unknown) (unknown) (no (unknown) (unknown) with her partner (units (unknown) date) who is able to unknown) take care of her and she does not have any (unknown) (no (unknown) (unknown) you with (units (unkno wn) date) appointment date + unknown) time Follow up w/ Dr Au for xrays in 6 Result panel 188 (unknown) (no (unknown) (unknown) (no value) (units (unk nown) date) unknown) (unknown) (no (unknown) (unknown) (past 8 hours): (units (unknown) date) unknown) (unknown) (no (unknown) (unknown) -100.3F on 03/29 (units (unknown) date) unknown) (unknown) (no (unknown) (unknown) -likely (units (unkno wn) date) atelectasis on CXR unknown) (unknown) (no (unknown) (unknown) -no new cough, (units (unknown) date) dysuria unknown) (unknown) (no (unknown) (unknown) -no repeat fevers (units (unknown) date) unknown) (unknown) (no (unknown) (unknown) [id number] (units (unkno wn) date) unknown) (unknown) (no (unknown) (unknown) 03:10 (units (unkno wn) date) unknown) (unknown) (no (unknown) (unknown) 1 tab PO DAILY (units (unknown) date) unknown) (unknown) (no (unknown) (unknown) 1 tab PO Q6H PRN (units (unknown) date) (Reason: Pain unknown) (Scale Score 4-6)) (unknown) (no (unknown) (unknown) 1 unit PO DAILY (units (unknown) date) unknown) (unknown) (no (unknown) (unknown) 1. Left hip (units (un known) date) hemiarthroplasty unknown) for left femoral neck fracture (unknown) (no (unknown) (unknown) 10 mg PO BEDTIME (units (unknown) date) unknown) (unknown) (no (unknown) (unknown) 10. Elevated temp (units (unknown) date) unknown) (unknown) (no (unknown) (unknown) 100 mg PO BEDTIME (units (unknown) date) unknown) (unknown) (no (unknown) (unknown) 03/23/22 17:03 (units (unknown) date) unknown) (unknown) (no (unknown) (unknown) 03/23/22 17:05 (units (unknown) date) unknown) (unknown) (no (unknown) (unknown) 03/23/22 17:07 (units (unknown) date) unknown) (unknown) (no (unknown) (unknown) 03/24/22 23:44 (units (unknown) date) unknown) (unknown) (no (unknown) (unknown) 03/27/22 05:00 (units (unknown) date) unknown) (unknown) (no (unknown) (unknown) 03/28/22 (units (unkno wn) date) unknown) (unknown) (no (unknown) (unknown) 03/29/22 1725 (units ( unknown) date) unknown) (unknown) (no (unknown) (unknown) 2. Acute hypoxic (units (unknown) date) respiratory unknown) failure, resolved (unknown) (no (unknown) (unknown) 3. Ascending (units (u nknown) date) aortic aneurysm unknown) (unknown) (no (unknown) (unknown) 4. 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 Depression (units ( unknown) date) unknown) (unknown) (no (unknown) (unknown) 75 mcg PO DAILY (units (unknown) date) unknown) (unknown) (no (unknown) (unknown) 75 mcg transdermal (units (unknown) date) 3XD unknown) (unknown) (no (unknown) (unknown) 8. Hypothyroidism (units (unknown) date) unknown) (unknown) (no (unknown) (unknown) 81 mg PO BID 28 (units (unknown) date) Days Qty: 56 0RF unknown) (unknown) (no (unknown) (unknown) 9. Oliguria (units (un known) date) unknown) (unknown) (no (unknown) (unknown) ABD: Soft, NT/ND, (units (unknown) date) BT present in all 4 unknown) quadrants, no organomegaly or masses (unknown) (no (unknown) (unknown) Activity: (units (unkn own) date) Weightbearing as unknown) tolerated to Left Lower Extremityfe. Posterior hip (unknown) (no (unknown) (unknown) Age/Sex: 72 / F (units (unknown) date) unknown) (unknown) (no (unknown) (unknown) Appreciate (units (unk nown) date) management per unknown) Orthopedic surgery.? Work on mobilization and pain (unknown) (no (unknown) (unknown) Blood Pressure (units (unknown) date) 185/63 H unknown) (unknown) (no (unknown) (unknown) CHEST: Respiratory (units (unknown) date) excursions unknown) symmetric, coarse but CTAB (unknown) (no (unknown) (unknown) CV: RRR, no M/R/G (units (unknown) date) unknown) (unknown) (no (unknown) (unknown) Chief complaint: (units (unknown) date) hip pain unknown) (unknown) (no (unknown) (unknown) Cold/Heat Therapy: (units (unknown) date) Ice to hip as unknown) needed for pain. (unknown) (no (unknown) (unknown) Comment: (units (unkno wn) date) unknown) (unknown) (no (unknown) (unknown) Consult to (units (unk nown) date) Discharge Planning unknown) Routine (unknown) (no (unknown) (unknown) Consult to (units (unk nown) date) Orthopedic Surgery unknown) Stat (unknown) (no (unknown) (unknown) Consult to (units (unk n) date) Physical Therapy unknown) Evaluate + Treat (unknown) (no (unknown) (unknown) Consulting (units (unk n) date) Provider: unknown) Hay Au (unknown) (no (unknown) (unknown) Consults: (units (unkn own) date) unknown) (unknown) (no (unknown) (unknown) Continue (units (unkno wn) date) levothyroxine unknown) (unknown) (no (unknown) (unknown) Continue (units (unkno wn) date) outpatient dose of unknown) Lamictal.? She also uses diazepam at bedtime for (unknown) (no (unknown) (unknown) Continued (units (unkn own) date) unknown) (unknown) (no (unknown) (unknown) : 1950 (units (unknown) date) Acct:[id number] unknown) (unknown) (no (unknown) (unknown) Date Patient Seen: (units (unknown) date) 03/28/22 unknown) (unknown) (no (unknown) (unknown) Date of Onset of (units (unknown) date) Symptoms: 03/23/22 unknown) (unknown) (no (unknown) (unknown) Date of Service: (units (unknown) date) 03/23/22 unknown) (unknown) (no (unknown) (unknown) Date of admission: (units (unknown) date) unknown) (unknown) (no (unknown) (unknown) Deep Vein (units (unkn own) date) Thrombosis/Pulmonar unknown) y Embolism Present on Admission: No (unknown) (no (unknown) (unknown) Diet/Activity/Kaley (units (unknown) date) tments unknown) (unknown) (no (unknown) (unknown) Discharge Data (units (unknown) date) unknown) (unknown) (no (unknown) (unknown) Discharge Date: (units (unknown) date) 03/28/22 unknown) (unknown) (no (unknown) (unknown) Discharge (units (unkn own) date) Diagnosis: unknown) (unknown) (no (unknown) (unknown) Discharge Plan (units (unknown) date) unknown) (unknown) (no (unknown) (unknown) Discharge (units (unkn own) date) Providers unknown) (unknown) (no (unknown) (unknown) Discharge Summary (units (unknown) date) unknown) (unknown) (no (unknown) (unknown) Discharge orders + (units (unknown) date) Medications unknown) (unknown) (no (unknown) (unknown) Discharge (units (unkn own) date) provider: unknown) (unknown) (no (unknown) (unknown) Dressing: May (units ( unknown) date) shower; leave unknown) Aquacel dressing in place until follow up (unknown) (no (unknown) (unknown) EXTR: warm, well (units (unknown) date) perfused, no C/C/E unknown) (unknown) (no (unknown) (unknown) Exam Narrative: (units (unknown) date) unknown) (unknown) (no (unknown) (unknown) Exam (units (unkno wn) date) unknown) (unknown) (no (unknown) (unknown) Falls, DI for (units ( unknown) date) Taking Pain unknown) Medication (unknown) (no (unknown) (unknown) Fibromyalgia (units (u nknown) date) unknown) (unknown) (no (unknown) (unknown) Follow (units (unkno wn) date) up/Referrals: unknown) (unknown) (no (unknown) (unknown) For fall at home (units (unknown) date) resulting in left unknown) hip fracture which was repaired by ortho. (unknown) (no (unknown) (unknown) Fraction of (units (un known) date) Inspired Oxygen 93 unknown) (unknown) (no (unknown) (unknown) GEN: Alert and (units (unknown) date) oriented x 3, NAD unknown) (unknown) (no (unknown) (unknown) Hay Au MD (units (unknown) date) [Physician] - 2 unknown) Weeks (Follow up w/ PA @ [facility] (unknown) (no (unknown) (unknown) HEENT:NC, Face (units (unknown) date) symmetric unknown) (unknown) (no (unknown) (unknown) Has provider been (units (unknown) date) notified: Yes unknown) (unknown) (no (unknown) (unknown) History of Present (units (unknown) date) Illness unknown) (unknown) (no (unknown) (unknown) Hospital Course (units (unknown) date) unknown) (unknown) (no (unknown) (unknown) Hospital Course: (units (unknown) date) unknown) (unknown) (no (unknown) (unknown) Hypertension (units (u nknown) date) unknown) (unknown) (no (unknown) (unknown) Hypothyroidism (units (unknown) date) unknown) (unknown) (no (unknown) (unknown) Instructions: DI (units (unknown) date) for Hip unknown) Replacement, DI for Constipation, How to Prevent (unknown) (no (unknown) (unknown) [facility] (units (unknown) date) [address] unknown) [place] [address] (unknown) (no (unknown) (unknown) Labs (units (unkno wn) date) unknown) (unknown) (no (unknown) (unknown) Elidia is a (units (un known) date) 72-year-old female unknown) who sustained a ground level fall yesterday. She (unknown) (no (unknown) (unknown) Darrell Cottrell, (units (unknown) date) [Primary Care unknown) Provider] (unknown) (no (unknown) (unknown) Heraclio Mckeon, (units (unknown) date) DO unknown) (unknown) (no (unknown) (unknown) Measuring 6.4 cm.? (units (unknown) date) She will need close unknown) follow-up.? She is on metoprolol for (unknown) (no (unknown) (unknown) Medical History (units (unknown) date) (Reviewed 03/24/22 unknown) @ 12:05 by Hay Au MD) (unknown) (no (unknown) (unknown) NEURO: Alert and (units (unknown) date) oriented x 3, unknown) nonfocal (unknown) (no (unknown) (unknown) Narrative (units (unkn own) date) unknown) (unknown) (no (unknown) (unknown) Narrative: (units (unk nown) date) unknown) (unknown) (no (unknown) (unknown) New (units (unkno wn) date) unknown) (unknown) (no (unknown) (unknown) No pertinent past (units (unknown) date) surgical history unknown) (unknown) (no (unknown) (unknown) Objective (units (unkn own) date) unknown) (unknown) (no (unknown) (unknown) Orthopedics for (units (unknown) date) wound check and unknown) staple removal-' s nurse Maribell will call (unknown) (no (unknown) (unknown) Oxygen Delivery (units (unknown) date) Method Room Air unknown) (unknown) (no (unknown) (unknown) Oxygen Flow Rate 0 (units (unknown) date) unknown) (unknown) (no (unknown) (unknown) PFSH (units (unkno wn) date) unknown) (unknown) (no (unknown) (unknown) Patient (units (unkno wn) date) Disposition: Home unknown) Health Service (unknown) (no (unknown) (unknown) Patient reportedly (units (unknown) date) had an NSTEMI at unknown) the end of February.? Troponin was 0.050, (unknown) (no (unknown) (unknown) Patient takes (units ( unknown) date) fentanyl 75 mcg Q unknown) 72 hours.? Patch was changed yesterday. (unknown) (no (unknown) (unknown) Patient was (units () date) diuresed on unknown) March 24.? Despite a couple of boluses yesterday she (unknown) (no (unknown) (unknown) Patient worked (units (unknown) date) with physical unknown) therapy following and was able to clear for home (unknown) (no (unknown) (unknown) Patient: (units (o wn) date) Elidia Rock unknown) MR#: [id number] (unknown) (no (unknown) (unknown) Physician (units (unkn own) date) Instructions: unknown) Evaluate and Treat (unknown) (no (unknown) (unknown) Postoperatively, (units (unknown) date) patient did require unknown) 5 L of oxygen via nasal cannula.? At (unknown) (no (unknown) (unknown) Prescriptions: (units (unknown) date) unknown) (unknown) (no (unknown) (unknown) Primary Care (units (u nknown) date) Provider: unknown) Darrell Cottrell (unknown) (no (unknown) (unknown) Primary care (units (u nknown) date) physician: unknown) (unknown) (no (unknown) (unknown) Provider Discharge (units (unknown) date) Comment: You fell unknown) and broke your left hip which was repaired (unknown) (no (unknown) (unknown) Provider (units (o wn) date) unknown) (unknown) (no (unknown) (unknown) Provider: (units (unkn own) date) Heraclio Mckeon unknown) D.O. (unknown) (no (unknown) (unknown) Pulse Oximetry 93 (units (unknown) date) unknown) (unknown) (no (unknown) (unknown) Pulse Rate 67 (units ( unknown) date) unknown) (unknown) (no (unknown) (unknown) Quality (units (unkno wn) date) unknown) (unknown) (no (unknown) (unknown) Reason for (units (unk n) date) consultation: left unknown) hip fracture (unknown) (no (unknown) (unknown) Report to your (units (unknown) date) healthcare provider unknown) any signs of infection, such as:: chills, (unknown) (no (unknown) (unknown) Respiratory Rate (units (unknown) date) 19 unknown) (unknown) (no (unknown) (unknown) Restrictive lung (units (unknown) date) disease unknown) (unknown) (no (unknown) (unknown) Result Diagrams: (units (unknown) date) unknown) (unknown) (no (unknown) (unknown) Darrell Cottrell, (units (unknown) date) unknown) (unknown) (no (unknown) (unknown) Rx Instructions: (units (unknown) date) unknown) (unknown) (no (unknown) (unknown) SKIN: warm and (units (unknown) date) dry, no rash unknown) (unknown) (no (unknown) (unknown) She is not on any (units (unknown) date) outpatient unknown) medications or inhalers. (unknown) (no (unknown) (unknown) Signed (units (unkno wn) date) By:<Electronically unknown) signed by Heraclio Mckeon D.O.> (unknown) (no (unknown) (unknown) Skin/Wound/Dressin (units (unknown) date) g Care unknown) (unknown) (no (unknown) (unknown) Smoking Status: (units (unknown) date) Former smoker unknown) (unknown) (no (unknown) (unknown) Social History (units (unknown) date) (Reviewed 03/23/22 unknown) @ 16:07 by Liam Colón MD) (unknown) (no (unknown) (unknown) Summary (units (unkno wn) date) unknown) (unknown) (no (unknown) (unknown) Surgical History (units (unknown) date) (Reviewed 03/24/22 unknown) @ 12:05 by Hay Au MD) (unknown) (no (unknown) (unknown) Takes 1 to 2 (units (u nknown) date) tablets every 6 unknown) hours (unknown) (no (unknown) (unknown) Takes 1/2 tab of (units (unknown) date) the 100mg in the AM unknown) (unknown) (no (unknown) (unknown) Takes 2 tablets (units (unknown) date) daily unknown) (unknown) (no (unknown) (unknown) Temperature 98.7 F (units (unknown) date) unknown) (unknown) (no (unknown) (unknown) Time Patient Seen: (units (unknown) date) 12:03 unknown) (unknown) (no (unknown) (unknown) Time Spent with (units (unknown) date) Patient unknown) (unknown) (no (unknown) (unknown) Time spent: (units (un known) date) Greater than 30 unknown) minutes (unknown) (no (unknown) (unknown) VTE (units (unkno wn) date) unknown) (unknown) (no (unknown) (unknown) Visit (units (unkno wn) date) Report/Discharge unknown) Packet (unknown) (no (unknown) (unknown) Vital Signs (units (un known) date) unknown) (unknown) (no (unknown) (unknown) [Embedded Image (units (unknown) date) Not Available] unknown) (unknown) (no (unknown) (unknown) alcohol intake: (units (unknown) date) current unknown) (unknown) (no (unknown) (unknown) also had a (units (unk nown) date) ultrasound which unknown) was negative. She has past medical history of (unknown) (no (unknown) (unknown) and she feels (units ( unknown) date) confident they will unknown) be successful at home. (unknown) (no (unknown) (unknown) any other (units (unkn own) date) constitutional unknown) symptoms. (unknown) (no (unknown) (unknown) appointment. No (units (unknown) date) bathing or unknown) otherwise soaking incision. Call the office if the (unknown) (no (unknown) (unknown) aspirin 81 mg (units ( unknown) date) Tablet,Delayed unknown) Release (Dr/Ec) (unknown) (no (unknown) (unknown) baseline she does (units (unknown) date) not require unknown) oxygen.? Patient has known idiopathic pulmonary (unknown) (no (unknown) (unknown) blood pressure (units (unknown) date) control. unknown) (unknown) (no (unknown) (unknown) bolus of IV fluids (units (unknown) date) followed by unknown) maintenance fluids.? Should she develop signs of (unknown) (no (unknown) (unknown) but no repeat (units ( unknown) date) fevers were noted unknown) and chest x-ray, UA and cultures were negative (unknown) (no (unknown) (unknown) by ortho. You will (units (unknown) date) now take Aspirin 81 unknown) mg twice daily for 4 weeks for clot (unknown) (no (unknown) (unknown) cholecalciferol (units (unknown) date) (vitamin D3) 50 mcg unknown) (2,000 unit) Tablet (unknown) (no (unknown) (unknown) continues to be (units (unknown) date) hypovolemic.? Her unknown) oral intake remains marginal.? Will give a 1 L (unknown) (no (unknown) (unknown) control.? (units (unkn own) date) Patient's returned unknown) home with home health.? Her partner is a train FIL[employer] JE[employer] (unknown) (no (unknown) (unknown) demonstrating a (units (unknown) date) left femoral neck unknown) fracture. Of note, she had a NSTEMI at the (unknown) (no (unknown) (unknown) diazepam [Valium] (units (unknown) date) 10 mg Tablet unknown) (unknown) (no (unknown) (unknown) diurese.? (units (unkn own) date) Clinically however unknown) she appears dry with dark concentrated urine, and (unknown) (no (unknown) (unknown) down trending to (units (unknown) date) 0.041.? It likely unknown) to be cardiac demand ischemia. (unknown) (no (unknown) (unknown) dressing becomes (units (unknown) date) saturated inside. unknown) (unknown) (no (unknown) (unknown) end of February. (units (unknown) date) Currently her unknown) troponins are 0.05 and still trending down, she (unknown) (no (unknown) (unknown) felt immediate (units (unknown) date) pain and was unable unknown) to bear weight on her left side. She was bro (unknown) (no (unknown) (unknown) fentanyl 75 mcg/hr (units (unknown) date) patch 72 hour unknown) (unknown) (no (unknown) (unknown) fever, night (units (u nknown) date) sweats, unusual unknown) drainage and unusual redness (unknown) (no (unknown) (unknown) fibromyalgia and (units (unknown) date) has a fentanyl unknown) patch and has oxycodone at home. Her pain (unknown) (no (unknown) (unknown) fibrosis.? She was (units (unknown) date) initially treated unknown) with IV furosemide.? Able to wean off O2. (unknown) (no (unknown) (unknown) fluoxetine (units (unk nown) date) [Prozac] 40 MG unknown) capsule (unknown) (no (unknown) (unknown) health physical (units (unknown) date) therapy. She was unknown) placed on aspirin twice daily for 4 weeks and (unknown) (no (unknown) (unknown) household members: (units (unknown) date) significant other unknown) (unknown) (no (unknown) (unknown) lamotrigine (units (un known) date) [Lamictal] 100 mg unknown) Tablet (unknown) (no (unknown) (unknown) last patch applied (units (unknown) date) 03/22 on left wrist unknown) (unknown) (no (unknown) (unknown) levothyroxine 75 (units (unknown) date) mcg Tablet unknown) (unknown) (no (unknown) (unknown) management is (units ( unknown) date) being done by her unknown) primary care doctor in [place]. She does live (unknown) (no (unknown) (unknown) metoprolol (units (unk nown) date) tartrate 50 mg unknown) Tablet (unknown) (no (unknown) (unknown) oxycodone 5 mg (units (unknown) date) Tablet unknown) (unknown) (no (unknown) (unknown) oxycodone-acetamin (units (unknown) date) ophen [Percocet] unknown) 5-325 mg Tablet (unknown) (no (unknown) (unknown) precautions (no (units (unknown) date) flexion w/ unknown) adduction and internal rotation). (unknown) (no (unknown) (unknown) prophylaxis. You (units (unknown) date) will need to unknown) follow-up with ortho in clinic. (unknown) (no (unknown) (unknown) report of marginal (units (unknown) date) oral intake. unknown) (unknown) (no (unknown) (unknown) sleep. (units (unkno wn) date) unknown) (unknown) (no (unknown) (unknown) so this was not (units (unknown) date) treated. unknown) (unknown) (no (unknown) (unknown) stairs in her (units ( unknown) date) home. She denies unknown) any recent nausea, vomiting, fevers, chills or (unknown) (no (unknown) (unknown) substance use (units ( unknown) date) type: does not use unknown) (unknown) (no (unknown) (unknown) ught to [place] [facility] Department where imaging was obtained (unknown) (no (unknown) (unknown) vitamin B complex (units (unknown) date) Tablet unknown) (unknown) (no (unknown) (unknown) vitamin E 400 unit (units (unknown) date) Tablet unknown) (unknown) (no (unknown) (unknown) weeks.) (units (unkno wn) date) unknown) (unknown) (no (unknown) (unknown) will follow-up in (units (unknown) date) ortho clinic. She unknown) had a temp of 100.3? F prior to discharge (unknown) (no (unknown) (unknown) with her partner (units (unknown) date) who is able to take unknown) care of her and she does not have any (unknown) (no (unknown) (unknown) worsening (units (unkn own) date) respiratory status unknown) or volume overload, would DC IV fluids and (unknown) (no (unknown) (unknown) you with (units (unkno wn) date) appointment date + unknown) time Follow up w/ Dr Au for xrays in 6 Social History date description facility 2022-03-23 00:00 Ex-smoker (finding) [facility] Vital Signs date measurement value units 2022-01-18 00:00 BMI 21.3 kg/m2 2022-01-18 00:00 BP_diastolic 56 mmHg 2022-01-18 00:00 BP_systolic 116 mmHg 2022-01-18 00:00 heart_rate 59 /min 2022-01-18 00:00 height_metric 147.32 cm 2022-01-18 00:00 height_standard 58 in 2022-01-18 00:00 o2_saturation 93 % 2022-01-18 00:00 respiration_rate 16 /min 2022-01-18 00:00 temperature_metric 37.39 C 2022-01-18 00:00 temperature_standard 99.3 F 2022-01-18 00:00 weight_metric 46.26 kg 2022-01-18 00:00 weight_standard 101.99 lb 2022-03-23 00:00 BP_diastolic 55 mmHg 2022-03-23 00:00 BP_systolic 108 mmHg 2022-03-23 00:00 heart_rate 67 /min 2022-03-23 00:00 height_metric 147.32 cm 2022-03-23 00:00 height_standard 58 in 2022-03-23 00:00 o2_saturation 93 % 2022-03-23 00:00 respiration_rate 31 /min 2022-03-23 00:00 temperature_metric 36.89 C 2022-03-23 00:00 temperature_standard 98.4 F 2022-03-23 00:00 weight_metric 61.5 kg 2022-03-23 00:00 weight_standard 135.58 lb 2022-03-28 00:00 BP_diastolic 49 mmHg 2022-03-28 00:00 BP_systolic 167 mmHg 2022-03-28 00:00 heart_rate 88 /min 2022-03-28 00:00 o2_saturation 95 % 2022-03-28 00:00 respiration_rate 20 /min 2022-03-28 00:00 temperature_metric 36.44 C 2022-03-28 00:00 temperature_standard 97.6 F
[2022-04-07] MEDS ORDERED: FUROSEMIDE 40 MG/4 ML VIAL IVP STA (19:43)
--- NOTE | 2022-04-07 19:58 | XRAY Report ---
PROCEDURE: Chest 1 View X-Ray INDICATIONS: Chest Pain TECHNIQUE: One view of the chest was acquired. COMPARISON: 03/10/2022. FINDINGS: Surgical changes and devices: None. Lungs and pleura: Improved interstitial pulmonary edema, minimally present. Mediastinum: Mediastinal contours appear normal. Mild cardiomegaly. Bones and chest wall: No suspicious bony lesions. Overlying soft tissues appear unremarkable. Perc utaneous cement fixation of approximately T10 and T11 is noted. IMPRESSION: Improved pulmonary edema, minimally present. Reviewed by: Delano Mays MD on 04/07/2022 7:57 PM PST Approved by: Delano Mays MD on 04/07/2022 7:57 PM PST Station ID: [id number]
--- NOTE | 2022-04-07 20:04 | ED Physician Documentation ---
History of Present Illness - Stated complaint Stated Complaint: SOA ON EXERTION, HI 2 WEEKS AGO - Chief complaint Chief Complaint: Resp - Additonal information Additional information: 72-year-old female presents to the emergency department for evaluation of dyspnea. She states that she is short of breath when laying flat and with walking. She is denying focal chest pain. However she is concerned because she was seen in this emergency department on 10 March for an NSTEMI. Unfortunately she was not able to be transferred and on 13 March the patient elected to be discharged home. She did not stay for the echocardiogram. Her shortness of breath has been getting worse over the last week The patient was to follow-up on 30 March with a claims service adjustor however she unfortunately fell and was admitted to [facility] where she had her hip repaired And do that she has not been able to follow-up with cardiology She does report a history of a restrictive lung disease but she is not on any inhalers. Review of Systems Constitutional: denies: Fever, Chills Throat: reports: Reviewed and negative Cardiac: reports: Reviewed and negative Respiratory: reports: Dyspnea. 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 : None HEENT: None Psych: Depression Musculoskeletal: Fibromyalgia, Chronic back pain Derm: None - Past Surgical History Past Surgical History: Yes General: Cholecystectomy Ortho: Carpal Tunnel surgery HEENT: Cataracts, Tonsil/Adenoidectomy - Present Medications Home Medications: Ambulatory Orders Medication Instructions Recorded Confirmed Diazepam [Valium] 10 mg PO QID 11/28/12 03/11/22 Levothyroxine Sodium [Synthroid] 75 mcg PO DAILY 11/28/12 03/11/22 fentaNYL [Duragesic 75mcg patch] 1 patch TD DAILY 02/23/14 03/11/22 Cholecalciferol (Vitamin D3) 2,000 unit PO DAILY 03/15/19 03/11/22 [Vitamin D3] Metoprolol Tartrate [Lopressor] 25 mg PO BID 03/15/19 03/11/22 oxyCODONE/ACET 5/325 [Percocet 5 1 each PO Q4-6H 03/15/19 03/11/22 mg/325 mg] Fluoxetine HCl 60 mg PO DAILY 03/11/22 03/11/22 lamoTRIgine [LaMICtal] 25 mg PO DAILY 03/11/22 03/11/22 Aspirin [[place] Aspirin] 81 mg PO DAILY #30 tab 03/13/22 Nitroglycerin [Nitrostat] 0.4 mg SL Q5MIN PRN #25 tablet 03/13/22 Furosemide [Lasix] 10 mg PO DAILY 6 Days #3 tablet 04/07/22 - Allergies Allergies/Adverse Reactions: Allergies Allergy/AdvReac Type Severity Reaction Status Date / Time Penicillins Allergy unknown Verified 04/07/22 18:57 streptomycin [Streptomycin] Allergy unknown Verified 04/07/22 18:57 Sulfa (Sulfonamide Allergy Rash Verified 04/07/22 18:57 Antibiotics) adhesive tape Allergy unknown Uncoded 04/07/22 18:57 - Social History Does the pt smoke?: No Smoking Status: Never smoker Does the pt drink ETOH?: No Does the pt have substance abuse?: Yes - Immunizations Immunizations are current?: Yes - POLST Patient has POLST: No PD ED PE NORMAL - General General: Alert and oriented X 3, No acute distress, Well developed/nourished - HEENT HEENT: Atraumatic, Moist mucous membranes - Neck Neck: Supple, no meningeal sign, No adenopathy - Cardiac Cardiac: RRR, Strong equal pulses. No: No murmur (3/6 systolic murmur) - Respiratory Respiratory: No respiratory distress, Clear bilaterally - Abdomen Abdomen: Normal bowel sounds, Soft - Back Back: No CVA TTP, No spinal TTP - Derm Derm: Normal color, Warm and dry, No rash - Extremities Extremities: No deformity, No tenderness to palpate, Normal ROM s pain - Neuro Neuro: Alert and oriented X 3, cook specialty foreign food 2-12 intact Eye Opening: Spontaneous Motor: Obeys Commands Verbal: Oriented GCS Score: 15 Results - Vitals Vitals: Vital Signs - 24 hr 04/07/22 04/07/22 04/07/22 18:54 18:57 20:00 Temperature 98.5 C H Heart Rate 56 L 56 L Respiratory 14 16 Rate Blood Pressure 139/44 H 152/55 H O2 Saturation 96 93 97 04/07/22 20:10 Temperature Heart Rate Respiratory Rate Blood Pressure O2 Saturation 100 Oxygen O2 Source Room air - EKG (time done) 1940 Rate: Rate (enter#) (59) Rhythm: NSR [place]: Normal Intervals: Normal [place], Prolonged QT QRS: LVH Ischemia: T wave inversion Compare to prior EKG: Unchanged from prior EKG, Changed from prior EKG Computer interpretation: Agree with computer (Now patient has T wave inversions in V1 through V3 which is new from March 10, 2022) - Labs Labs: Laboratory Tests 04/07/22 04/07/22 04/07/22 18:56 18:56 18:56 WBC 10.4 RBC 4.42 Hgb 12.3 Hct 39.5 MCV 89.4 MCH 27.8 MCHC 31.1 L RDW 13.7 Plt Count 445 MPV 10.5 Neut # (Auto) 7.8 H Lymph # (Auto) 1.8 [place] # (Auto) 0.5 Eos # (Auto) 0.2 Baso # (Auto) 0.1 Absolute Nucleated RBC 0.00 Nucleated RBC % 0.0 Sodium 137 Potassium 3.8 Chloride 100 L Carbon Dioxide 27 Anion Gap 10.0 BUN 19 Creatinine 1.0 Estimated GFR (MDRD) 55 L Glucose 111 H Calcium 8.8 Magnesium 1.9 Total Bilirubin 1.1 H AST 25 ALT 14 Alkaline Phosphatase 96 Troponin I High Sens 42.9 H* B-Natriuretic Peptide Total Protein 6.2 L Albumin 3.2 Globulin 3.0 Albumin/Globulin Ratio 1.1 Lipase 23 04/07/22 04/07/22 18:56 21:08 WBC RBC Hgb Hct MCV MCH MCHC RDW Plt Count MPV Neut # (Auto) Lymph # (Auto) [place] # (Auto) Eos # (Auto) Baso # (Auto) Absolute Nucleated RBC Nucleated RBC % Sodium Potassium Chloride Carbon Dioxide Anion Gap BUN Creatinine Estimated GFR (MDRD) Glucose Calcium Magnesium Total Bilirubin AST ALT Alkaline Phosphatase Troponin I High Sens 44.5 H* B-Natriuretic Peptide 3499 H Total Protein Albumin Globulin Albumin/Globulin Ratio Lipase - Rads (name of study) cxr Radiology: Final report received (Improved pulmonary edema, minimally present) angio chest Radiology: Final report received (No pulmonary embolus is found. Mild cardiomegaly and mild pulmonary edema with mild to moderate bilateral posterior layering pleural effusions. The significant finding is a sending aortic aneurysm dilation measuring up to 6 x 7 cm in maximal dimension.) PD Medical Decision Making - ED course Complexity details: reviewed results, re-evaluated patient, considered differential, d/w patient ED course: 72-year-old female presents to the emergency department for evaluation of dyspnea and shortness of air. This has been getting progressively worse over the last week. However she was seen in this emergency department late February with an N STEMI. She remained in the emergency department for 3 days but after she failed to have a bed available for transfer she elected to be discharged from the ER. She was scheduled to follow-up with a claims service adjustor on 30 March however she unfortunately fell and broke her hip and was hospitalized at [facility] for repair of this fracture. Today in the emergency department the patient has a nonischemic EKG. I do note T wave inversions that are new from our last EKG in late February. She is denying chest pain but her initial troponin is 42. However on repeat her troponin is 44. This is not static and likely reflects her heart failure given that she has a BNP of just over 3400. There is no recent for comparison. We were able to ambulate her and noted that there was no exertional hypoxia. A chest x-ray completed today showed improving pulmonary edema. But given the recent hospitalization concern for PE could not be ruled out therefore a CT angio of the chest was completed which showed no findings of a pulmonary embolism but we do note a ascending aortic aneurysmal dilation measuring up to 6.1 x 7.1 cm in maximal dimension. This aneurysm was noted on a CT completed at [facility] 03/24/22 which I again the records from and it does show similar dimensions. I discussed this case with Dr. Berry on-call claims service adjustor through [facility]. He agrees that heart failure is likely the cause of the dyspnea but what is of concern is that her ascending aortic aneurysm. Though it is stable in size between imaging parameters in March of this year it has grown markedly in size since September of this year. He was able to discuss this case with Dr. Pandya a cardiothoracic surgeon at [facility]. Dr. Pandya's office will call the patient to arrange follow-up closely this week as its likely she will need intervention for further treatment of this aneurysm. I suspect that the cause of her dyspnea is likely congestive heart failure. Today CT does show some layering pleural effusions as well as some mild cardiomegaly. Patient was administered 40 of Lasix today in the emergency department and has diuresed well. She would not meet criteria for hospitaliz ation for heart failure and it would seem that is appropriate To discharge her on a small amount of Lasix. She should follow her heart failure closely with cardiology. I have discussed this with Dr. Berry as well and he is in agreement. Departure - Departure Disposition: 01 Home, Self Care Clinical Impression: Pleural effusion, Elevated troponin, Elevated brain natriuretic peptide (BNP) level Aortic aneurysm Qualifiers: Aortic location: thoracic aorta Thoracic aorta location: ascending aorta Presence of rupture: without rupture Qualified Code(s): I71.21 - Aneurysm of the ascending aorta, without rupture Congestive heart failure Qualifiers: Heart failure type: unspecified Heart failure chronicity: unspecified Qualified Code(s): I50.9 - Heart failure, unspecified Condition: Stable Record reviewed to determine appropriate education?: Yes Follow-Up: Herberth Pandya MD [Physician No Access] - Darrell Cottrell MD [Primary Care Provider] - Prescriptions: Furosemide [Lasix] 10 mg PO DAILY 6 Days #3 tablet Comments: Elidia you are seen today in the emergency department because you have been feeling short of air. You also have a large a sending aortic aneurysm that we will likely need to be evaluated and repaired by vascular surgeon. You are not having a new heart attack today though your troponins are just mildly elevated. This is most likely due to heart failure. The CT scan does show that you have no pulmonary embolism though you do have some small amounts of fluid around your lungs this is called a pleural effusion. This will get better with a little bit of a water pill. I have sent a prescription for 1 week of Lasix to the [facility] in [place]. You will take half a tablet each day for the next 6 days. It is critical that you follow-up closely with the cardiology team at [place] in order to get an echo completed. However Dr. Pandya is a cardiothoracic surgeon at [facility] and his office will be giving you a call to arrange follow-up this week to discuss long-term management of this aneurysm. In the short-term if you develop any chest pain or sudden severe back pain you are to return immediately to the ER.
[2022-04-07] MEDS ORDERED: iohexoL-300 100 ML VIAL ONE (20:06)
[2022-04-07] MEDS ORDERED: iohexoL-300 100 ML VIAL IVP ONE (20:47)
--- NOTE | 2022-04-07 21:13 | CT Report ---
PROCEDURE: ANGIO CHEST W/WO INDICATIONS: dyspnea; Hosp X2; ? PE CONTRAST: 100 ML OMNI 300 AT 4 ML/SEC WITH SURESTART DELAY. TECHNIQUE: After the administration of intravenous contrast, 2 mm axial images were acquired from the pulmonary apices to the posterior costophrenic angles during the arterial phase. In addition, 1 mm lung kernel and 5 mm soft tissue kernel reconstructions were performed. 3-dimensional coronal oblique maximum int ensity projection (MIP) reformats, 8 mm axial MIP, and 5 mm coronal and sagittal MPR reformats were t hen performed through the thorax. For radiation dose reduction, the following was used: automated exp osure control, adjustment of mA and/or kV according to patient size. COMPARISON: Chest plain film 04/07/2022 reviewed. FINDINGS: Image quality: Excellent. Pulmonary arteries: Pulmonary arteries are normal in size, and demonstrate no intraluminal filling d efects to suggest central pulmonary embolism. Lungs and pleura: Lungs are slightly edematous. There are small to moderate bilateral posterior laye ring pleural effusions and no pneumothorax. Central and peripheral airways are patent. Mediastinum: Heart size is mildly enlarged, without pericardial effusion. No mediastinal or hilar a denopathy. Thoracic aorta is abnormally prominent in caliber at 6.1 x 7.1 cm in maximal axial dimens ion at the ascending aorta, with enhancement optimized for pulmonary artery visualization and therefo re no significant enhancement in the aorta at time of scanning was observed.. Esophagus is normal in caliber, without hiatal hernia. Bones and chest wall: No suspicious bony lesions. Ribs and thoracic spine appear intact throughout. No axillary or supraclavicular adenopathy. The thyroid is normal in size and there are no incident al findings. Abdomen: Visualized upper abdominal solid organs appear normal in the early arterial phase of enhanc ement. IMPRESSION: No pulmonary embolus is found. Mild cardiomegaly and mild pulmonary edema with mild to moderate bilat eral posterior layering pleural effusions. The significant finding is ascending aortic aneurysmal dilatation measuring up to 6.1 x 7.1 cm in max imal axial dimension. Chronicity is uncertain, and a comparison chest CT with contrast 12/27/2012 did not show this aneurysmal dilatation. Cardiology consultation appears warranted. CLINICAL RECOMMENDATION STATEMENTS: In patients <35 years with an ITN detected on CT, MRI, or extrathyroidal ultrasound, the Committee re commends further evaluation with dedicated thyroid ultrasound if the nodule is "e1 cm and has no susp icious imaging features, and if the patient has normal life expectancy. In patients "e35 years with an ITN detected on CT, MRI, or extrathyroidal ultrasound, the Committee r ecommends further evaluation with dedicated thyroid ultrasound if the nodule is "e1.5 cm and has no s uspicious imaging features, and if the patient has normal life expectancy. (ACR, 2014) Reviewed by: Andres Galvin MD on 04/07/2022 9:12 PM PST Approved by: Andres Galvin MD on 04/07/2022 9:12 PM PST Station ID: [id number]
[2022-04-07] MEDS ORDERED: SODIUM CHLORIDE 0.9% 1,000 ML IV STA (21:47)
[2022-04-07 22:32] VITALS: BP 158/40
[2022-04-07 22:36] LABS: B. PARAPERTUSSIS- RESP PCR PAN NOT DETECTED; B. PERTUSSIS- RESP PCR PANEL NOT DETECTED; C. PNEUMONIAE- RESP PCR PANEL NOT DETECTED; CORONAVIRUS 229E-RESP PCR NOT DETECTED; CORONAVIRUS HKU1-RESP PCR NOT DETECTED; CORONAVIRUS NL63-RESP PCR NOT DETECTED; CORONAVIRUS OC43-RESP PCR NOT DETECTED; HUMAN METAPNEUMOVIRUS NOT DETECTED; INFLUENZA A- RESP PCR PANEL NOT DETECTED; INFLUENZA B - RESP PCR PANEL NOT DETECTED; M. PNEUMONIAE- RESP PCR PANEL NOT DETECTED; PARAINFLUENZA VIRUS 1 NOT DETECTED; PARAINFLUENZA VIRUS 2 NOT DETECTED; PARAINFLUENZA VIRUS 3 NOT DETECTED; PARAINFLUENZA VIRUS 4 NOT DETECTED; RHINOVIRUS/ENTEROVIRUS NOT DETECTED; RSV- RESP PCR PANEL NOT DETECTED; SARS-CoV-2 -RESP PCR PANEL NOT DETECTED
== END 2022-04-07 23:56 | disposition home or self-care (01) ==
LOC: EDUNIT# → ED 18:31
DX: I71.21 Aneurysm of the ascending aorta, without rupture (principal); I50.9 Heart failure, unspecified; J90 Pleural effusion, not elsewhere classified; R79.89 Other specified abnormal findings of blood chemistry
CPT/HCPCS: 36415; 71045; 71275; 80053; 83690; 83735; 83880; 84484; 85025; 87633; 93005; 96361; 96374; 99284; Q9967

== ENCOUNTER 2022-05-20 11:51 | Outpatient (CLI) | payer MEDICARE, BC | END 2022-05-20 11:52 | disposition short-term general hospital (02) | LOC: EMS 11:51 | DX: Z03.89 Encounter for observation for other suspected diseases and conditions ruled out (principal); Z96.642 Presence of left artificial hip joint | CPT/HCPCS: A0425; A0429; A0888 ==

== ENCOUNTER 2022-06-30 11:06 | Outpatient (CLI) | payer MEDICARE, BC ==
--- NOTE | 2022-06-30 13:58 | XRAY Report ---
PROCEDURE: Chest 2 View X-Ray INDICATIONS: LATENT TB INFECTION TECHNIQUE: 2 views of the chest were acquired. COMPARISON: None. FINDINGS: Surgical changes and devices: Lower thoracic kyphoplasty and sternotomy. Lungs and pleura: Small pleural effusions. Left basilar atelectasis/consolidation. Mediastinum: Mediastinal contours are normal. Heart size is normal. Bones and chest wall: No suspicious bony abnormalities. Soft tissues appear unremarkable. IMPRESSION: Small pleural effusions and left basilar atelectasis/consolidation. Reviewed by: Finn Vallejo on 06/30/2022 1:56 PM PDT Approved by: Finn Vallejo on 06/30/2022 1:56 PM PDT Station ID: [id number]
== END 2022-06-30 11:07 | disposition home or self-care (01) ==
LOC: DI 11:06
PROVIDERS: ATTEND Registered Nurse
DX: J90 Pleural effusion, not elsewhere classified (principal); R76.11 Nonspecific reaction to tuberculin skin test without active tuberculosis; Z86.15 Personal history of latent tuberculosis infection

== ENCOUNTER 2022-07-07 15:20 | Outpatient (CLI) | payer MEDICARE, BC | END 2022-07-07 23:59 | disposition critical access hospital (66) | LOC: EMS 15:20 | DX: R06.02 Shortness of breath (principal) | CPT/HCPCS: A0425; A0429 ==

== ENCOUNTER 2022-07-07 15:49 | Inpatient (IN) | payer MEDICARE, BC ==
--- NOTE | 2022-07-07 16:07 | ED Physician Documentation ---
PD HPI DYSPNEA - Stated complaint Stated Complaint: SOA - History obtained from History obtained from: Patient, EMS - Additional information Additional information: This is a 72-year-old woman with longstanding history of interstitial lung d isease, type 2 diabetes. She was admitted electively to [facility] a few weeks ago for repair of an a sending aortic aneurysm repaired via sternotomy. There was some valvular disease addressed at that time to but the patient does not know the details. And she was discharged from [facility] just a few days ago to a senior care and subsequently signed out AMA from there as she felt like the care was poor. She has a worsening productive cough productive of green and yellow sputum with shortness of breath. EMS noted her temperature to be 100.0. She has no new chest pain. Denies pedal edema or calf pain. She does not wear oxygen at home, nor does she see a inspector clip on sunglasses. PD PAST MEDICAL HISTORY - Past Medical History Cardiovascular: Hypertension, High cholesterol Respiratory: Shortness of breath Neuro: Migraines Endocrine/Autoimmune: Type 2 diabetes GI: GERD POCKET OPERATOR: None : None HEENT: None Psych: Depression Musculoskeletal: Fibromyalgia, Chronic back pain Derm: None - Past Surgical History Past Surgical History: Yes General: Cholecystectomy Ortho: Carpal Tunnel surgery HEENT: Cataracts, Tonsil/Adenoidectomy - Present Medications Home Medications: Ambulatory Orders Medication Instructions Recorded Confirmed Diazepam [Valium] 10 mg PO QID 11/28/12 03/11/22 Levothyroxine Sodium [Synthroid] 75 mcg PO DAILY 11/28/12 03/11/22 fentaNYL [Duragesic 75mcg patch] 1 patch TD DAILY 02/23/14 03/11/22 Cholecalciferol (Vitamin D3) 2,000 unit PO DAILY 03/15/19 03/11/22 [Vitamin D3] Metoprolol Tartrate [Lopressor] 25 mg PO BID 03/15/19 03/11/22 oxyCODONE/ACET 5/325 [Percocet 5 1 each PO Q4-6H 03/15/19 03/11/22 mg/325 mg] Fluoxetine HCl 60 mg PO DAILY 03/11/22 03/11/22 lamoTRIgine [LaMICtal] 25 mg PO DAILY 03/11/22 03/11/22 Aspirin [[place] Aspirin] 81 mg PO DAILY #30 tab 03/13/22 Nitroglycerin [Nitrostat] 0.4 mg SL Q5MIN PRN #25 tablet 03/13/22 Furosemide [Lasix] 10 mg PO DAILY 6 Days #3 tablet 04/07/22 - Allergies Allergies/Adverse Reactions: Allergies Allergy/AdvReac Type Severity Reaction Status Date / Time Penicillins Allergy unknown Verified 04/07/22 18:57 streptomycin [Streptomycin] Allergy unknown Verified 04/07/22 18:57 Sulfa (Sulfonamide Allergy Rash Verified 04/07/22 18:57 Antibiotics) adhesive tape Allergy unknown Uncoded 04/07/22 18:57 - Social History Does the pt smoke?: No Smoking Status: Never smoker Does the pt drink ETOH?: No Does the pt have substance abuse?: Yes - Immunizations Immunizations are current?: Yes - POLST Patient has POLST: No PD ED PE NORMAL - Vitals Vital signs reviewed: Yes - General General: Alert and oriented X 3, No acute distress - HEENT HEENT: PERRL, EOMI - Neck Neck: Supple, no meningeal sign, No bony TTP - Cardiac Cardiac: RRR, Other (Decrescendo systolic murmur) - Respiratory Respiratory: No respiratory distress, Other (Quite diminished at both bases, left worse than right with bibasilar rhonchi as well.) - Back Back: No CVA TTP, No spinal TTP - Derm Derm: Normal color, No rash - Extremities Extremities: No edema, No calf tenderness / cord - Neuro Neuro: Alert and oriented X 3, Normal speech Results - Vitals Vitals: Vital Signs - 24 hr 07/07/22 07/07/22 07/07/22 16:07 16:28 16:35 Temperature 37.4 C Heart Rate 71 68 66 Respiratory 22 22 18 Rate Blood Pressure 101/53 L 115/54 L O2 Saturation 91 L 96 If not protocol 4 : Oxygen Flow, liters/minute 07/07/22 17:14 Temperature Heart Rate 68 Respiratory 14 Rate Blood Pressure 96/54 L O2 Saturation 94 If not protocol 4 : Oxygen Flow, liters/minute Oxygen O2 Source Nasal cannula Oxygen Flow Rate 4 - EKG (time done) 1616 EKG releavant findings:: EKG personally interpreted by author of this note. Relevant findings are: Rate: Rate (enter#) (68) Rhythm: NSR [place]: Normal Intervals: Normal [place] QRS: Normal Ischemia: No: ST elevation c/w ischemia, ST depression - Labs Labs: Laboratory Tests 07/07/22 07/07/22 07/07/22 16:15 16:15 16:15 WBC 7.7 RBC 3.80 L Hgb 10.7 L Hct 35.4 L MCV 93.2 MCH 28.2 MCHC 30.2 L RDW 16.5 H Plt Count 267 MPV 10.8 Neut # (Auto) 5.7 Lymph # (Auto) 1.4 L [place] # (Auto) 0.4 Eos # (Auto) 0.0 Baso # (Auto) 0.0 Absolute Nucleated RBC 0.00 Nucleated RBC % 0.0 VBG pH VBG pCO2 VBG pO2 VBG HCO3 VBG Total CO2 VBG O2 Saturation VBG Base Excess Sodium 137 Potassium 3.3 L Chloride 97 L Carbon Dioxide 29 Anion Gap 11.0 BUN 14 Creatinine 0.7 Estimated GFR (MDRD) 82 L Glucose 123 H Calcium 8.1 L Total Bilirubin 0.6 AST 44 H ALT 20 Alkaline Phosphatase 101 B-Natriuretic Peptide 89 Total Protein 6.1 L Albumin 2.8 L Globulin 3.3 Albumin/Globulin Ratio 0.8 L Lipase 27 Nasal Adenovirus (PCR) Nasal B. parapertussis DNA (PCR) Nasal Coronavir 229E PCR Nasal Coronavir HKU1 PCR Nasal Coronavir NL63 PCR Nasal Coronavir OC43 PCR Nasal Enterovir/Rhinovir PCR Nasal Influenza B PCR Nasal Influenza A PCR Nasal Parainfluen 1 PCR Nasal Parainfluen 2 PCR Nasal Parainfluen 3 PCR Nasal Parainfluen 4 PCR Nasal RSV (PCR) Nasal B.pertussis DNA PCR Nasal C.pneumoniae (PCR) Andres Human Metapneumo PCR Nasal M.pneumoniae (PCR) Nasal SARS-CoV-2 (PCR) 07/07/22 07/07/22 16:15 16:29 WBC RBC Hgb Hct MCV MCH MCHC RDW Plt Count MPV Neut # (Auto) Lymph # (Auto) [place] # (Auto) Eos # (Auto) Baso # (Auto) Absolute Nucleated RBC Nucleated RBC % VBG pH 7.477 H VBG pCO2 41.6 VBG pO2 27.8 VBG HCO3 30.1 H VBG Total CO2 31.4 H VBG O2 Saturation 59.4 L VBG Base Excess 6.0 H Sodium Potassium Chloride Carbon Dioxide Anion Gap BUN Creatinine Estimated GFR (MDRD) Glucose Calcium Total Bilirubin AST ALT Alkaline Phosphatase B-Natriuretic Peptide Total Protein Albumin Globulin Albumin/Globulin Ratio Lipase Nasal Adenovirus (PCR) NOT DETECTED Nasal B. parapertussis DNA (PCR) NOT DETECTED Nasal Coronavir 229E PCR NOT DETECTED Nasal Coronavir HKU1 PCR NOT DETECTED Nasal Coronavir NL63 PCR NOT DETECTED Nasal Coronavir OC43 PCR NOT DETECTED Nasal Enterovir/Rhinovir PCR NOT DETECTED Nasal Influenza B PCR NOT DETECTED Nasal Influenza A PCR NOT DETECTED Nasal Parainfluen 1 PCR NOT DETECTED Nasal Parainfluen 2 PCR NOT DETECTED Nasal Parainfluen 3 PCR NOT DETECTED Nasal Parainfluen 4 PCR NOT DETECTED Nasal RSV (PCR) NOT DETECTED Nasal B.pertussis DNA PCR NOT DETECTED Nasal C.pneumoniae (PCR) NOT DETECTED Andres Human Metapneumo PCR DETECTED A Nasal M.pneumoniae (PCR) NOT DETECTED Nasal SARS-CoV-2 (PCR) DETECTED A - Rads (name of study) Single view chest x-ray showing moderate edema versus atypical pneumonia, bibasilar atelectasis versus pneumonia Relevant Findings:: Final report received, EMP independent interpretation of test PD Medical Decision Making - ED course ED course: 72-year-old woman with history of interstitial lung disease recently status post open aortic aneurysm repair and thusly with a prolonged hospitalization now home for just a few days after signing out of an SNF with increased shortness of breath and productive cough. Chest x-rays demonstrates probably bibasilar pneumonia. She does not have an elevated white count but has a significant oxygen requirement. Does not wear oxygen at home. The remainder of her work-up demonstrates a CBC notable for anemia, probably postoperative. Relatively normal venous gas. CMP with mild hypokalemia and hyperglycemia, BNP normal. Bio fire respiratory panel positive for both metapneumovirus and COVID. Given that she was recently hospitalized in ICU, she fits the criteria for hospital- acquired pneumonia noting her penicillin allergy was given cefepime, vancomycin, and levofloxacin. I contacted the day hospitalist at approximately 5:20 PM but she was overwhelmed and deferred to the night hospitalist for admission after 7. Departure - Departure Disposition: 66 [facility] DC/Xfer Clinical Impression: Hospital acquired PNA, COVID Respiratory failure Qualifiers: Chronicity: acute Respiratory failure complication: hypoxia Qualified Code(s): J96.01 - Acute respiratory failure with hypoxia Condition: Serious
[2022-07-07] MEDS ORDERED: IPRATROPIUM/ALBUTEROL 3 ML NEB INH STA (16:08)
[2022-07-07 16:23] LABS: BASOPHILS % (AUTO) 0.3 %; EOSINOPHILS % (AUTO) 0.5 %; HCT - HEMATOCRIT 35.4 % (37.0-47.0); HGB - HEMOGLOBIN 10.7 g/dL (12.0-16.0); LYMPHOCYTES # (AUTO) 1.4 10^3/uL (1.5-3.5); LYMPHOCYTES % (AUTO) 18.4 %; MEAN CORPUSCULAR HEMOGLOBIN 28.2 pg (27.0-31.0); MEAN CORPUSCULAR HGB CONC 30.2 g/dL (32.0-36.0); MEAN CORPUSCULAR VOLUME 93.2 fL (81.0-99.0); MEAN PLATELET VOLUME 10.8 fL (7.9-10.8); MONOCYTES # (AUTO) 0.4 10^3/uL (0.0-1.0); MONOCYTES % (AUTO) 5.4 %; NEUTROPHILS # (AUTO) 5.7 10^3/uL (1.5-6.6); NEUTROPHILS % (AUTO) 73.1 %; PLT - PLATELET COUNT 267 10^3/uL (130-450); RED CELL DISTRIBUTION WIDTH 16.5 % (12.0-15.0); WHITE BLOOD COUNT 7.7 x10^3/uL (4.8-10.8)
[2022-07-07 16:24] LABS: VBG HCO3 30.1 mmol/L (23-28); VBG PCO2 41.6 mmHg (41-51); VBG PH 7.477 (7.31-7.41); VBG PO2 27.8 mmHg (25-47)
[2022-07-07 16:25] LABS: VBG OXYGEN SATURATION 59.4 % (60-80); VBG TOTAL CO2 31.4 mmol/L (24-29)
--- OUTSIDE RECORDS SUMMARY | 2022-07-07 16:35 | EXTERNAL MEDICAL SUMMARY RPT | Continuity of Care Document ---
:1950 Author Organization [facility] Address [address] [place] [address] Phone Care Team Providers Name Role Phone Unavailable Unavailable Unavailable Darrell Cottrell Unavailable Unavailable Allergies and Intolerances date description facility type (no date) adhesive tape [facility] (unknown) (no date) sulfamethoxazole [facility] (unknown) (no date) trimethoprim [facility] (unknown) Encounters No information. Functional Status No information. Immunizations No information. Medications date description facility 2022-05-10 00:00 Potassium Chloride [facility] 2022-05-10 00:00 Aspirin [facility] 2022-05-10 00:00 Furosemide [facility] 2022-05-10 00:00 Levothyroxine [facility] Problems date description facility 2022-04-13 00:00 Patient left without being seen [facility] 2022-05-10 00:00 Exercise-induced angina [facility] 2022-05-10 00:00 Chronic idiopathic pulmonary fibrosis [facility] 2022-05-10 00:00 Bradycardia [facility] 2022-05-10 00:00 Fatigue [facility] 2022-05-20 00:00 Hip pain [facility] 2022-05-20 00:00 History of arthroplasty of left hip [facility] 2022-06-12 16:52 Fracture of unspecified part of neck of left [facility] femur, initial 2022-06-12 16:52 Other specified postprocedural states [facility] Procedures date description facility 2022-05-09 00:00 X-ray of chest, single view [facility] 2022-05-10 00:00 Complete Doppler echocardiography [facility] 2022-05-20 00:00 Unilateral x-ray of hip, two views, wit h x-ray [facility] of pelvis Results/Labs test date author facility value unit interpret ation Result panel 1 (unknown) (no date) (unknown) [facility]) Result panel 2 (unknown) (no date) (unknown) [facility] [...] Result panel 131 (unknown) (no date) (unknown[facility]) Result panel 132 (unknown) (no date) (unknown[facility]) Result panel 133 (unknown) (no date) (unknown[facility]) Result panel 134 (unknown) (no date) (unknown[facility]) Result panel 135 (unknown) (no date) (unknown[facility]) Result panel 136 (unknown) (no date) (unknown[facility]) Result panel 137 (unknown) (no date) (unknown[facility]) Result panel 138 (unknown) (no date) (unknown[facility]) Result panel 139 (unknown) (no date) (unknown[facility]) Result panel 140 (unknown) (no date) (unknown[facility]) Result panel 141 (unknown) (no date) (unknown[facility]) Result panel 142 (unknown) (no date) (unknown[facility]) Result panel 143 (unknown) (no date) (unknown[facility]) Result panel 144 (unknown) (no date) (unknown[facility]) Result panel 145 (unknown) (no date) (unknown[facility]) Result panel 146 (unknown) (no date) (unknown[facility]) Result panel 147 (unknown) (no date) (unknown[facility]) Result panel 148 (unknown) (no date) (unknown[facility]) Result panel 149 (unknown) (no date) (unknown[facility]) Result panel 150 (unknown) (no date) (unknown[facility]) Result panel 151 (unknown) (no date) (unknown[facility]) Result panel 152 (unknown) (no date) (unknown[facility]) Result panel 153 (unknown) (no date) (unknown[facility]) Result panel 154 (unknown) (no date) (unknown[facility]) Result panel 155 (unknown) (no date) (unknown[facility]) Result panel 156 (unknown) (no date) (unknown[facility]) Result panel 157 (unknown) (no date) (unknown[facility]) Result panel 158 (unknown) (no date) (unknown[facility]) Result panel 159 (unknown) (no date) (unknown[facility]) Result panel 160 (unknown) (no date) (unknown[facility]) Result panel 161 (unknown) (no date) (unknown[facility]) Result panel 162 (unknown) (no date) (unknown[facility]) Result panel 163 (unknown) (no date) (unknown[facility]) Result panel 164 (unknown) (no date) (unknown[facility]) Result panel 165 (unknown) (no date) (unknown[facility]) Result panel 166 (unknown) (no date) (unknown[facility]) Result panel 167 (unknown) (no date) (unknown[facility]) Result panel 168 (unknown) (no date) (unknown[facility]) Result panel 169 (unknown) (no date) (unknown[facility]) Result panel 170 (unknown) (no date) (unknown[facility]) Result panel 171 (unknown) (no date) (unknown[facility]) Result panel 172 (unknown) (no date) (unknown[facility]) Result panel 173 (unknown) (no date) (unknown[facility]) Result panel 174 (unknown) (no date) (unknown[facility]) Result panel 175 (unknown) (no date) (unknown[facility]) Result panel 176 (unknown) (no date) (unknown[facility]) Result panel 177 (unknown) (no date) (unknown[facility]) Result panel 178 (unknown) (no date) (unknown[facility]) Result panel 179 (unknown) (no date) (unknown[facility]) Result panel 180 (unknown) (no date) (unknown[facility]) Result panel 181 (unknown) (no date) (unknown[facility]) Result panel 182 (unknown) (no date) (unknown[facility]) Result panel 183 (unknown) (no date) (unknown[facility]) Result panel 184 (unknown) (no date) (unknown[facility]) Result panel 185 (unknown) (no date) (unknown[facility]) Result panel 186 (unknown) (no date) (unknown[facility]) Result panel 187 (unknown) (no date) (unknown[facility]) Result panel 188 (unknown) (no date) (unknown[facility]) Result panel 189 (unknown) (no date) (unknown[facility]) Result panel 190 (unknown) (no date) (unknown[facility]) Result panel 191 (unknown) (no date) (unknown[facility]) Result panel 192 (unknown) (no date) (unknown[facility]) Result panel 193 (unknown) (no date) (unknown[facility]) Result panel 194 (unknown) (no date) (unknown[facility]) Result panel 195 (unknown) (no date) (unknown[facility]) Result panel 196 (unknown) (no date) (unknown[facility]) Result panel 197 (unknown) (no date) (unknown[facility]) Result panel 198 (unknown) (no date) (unknown[facility]) Result panel 199 (unknown) (no date) (unknown[facility]) Result panel 200 (unknown) (no date) (unknown[facility]) Result panel 201 (unknown) (no date) (unknown[facility]) Result panel 202 (unknown) (no date) (unknown[facility]) Result panel 203 (unknown) (no date) (unknown[facility]) Result panel 204 (unknown) (no date) (unknown[facility]) Result panel 205 (unknown) (no date) (unknown[facility]) Result panel 206 (unknown) (no date) (unknown[facility]) Result panel 207 (unknown) (no date) (unknown) [facility]) Result panel 208 (unknown) (no date) (unknown) [facility]) Result panel 209 (unknown) (no date) (unknown) [facility]) Result panel 210 (unknown) (no date) (unknown) [facility]) Result panel 211 (unknown) (no date) (unknown) [facility]) Result panel 212 (unknown) (no date) (unknown) [facility]) Result panel 213 (unknown) (no date) (unknown[facility]) Result panel 214 (unknown) (no date) (unknown) [facility]) Result panel 215 (unknown) (no date) (unknown[facility]) Result panel 216 (unknown) (no date) (unknown) [facility]) Result panel 217 (unknown) (no date) (unknown[facility]) Result panel 218 (unknown) (no date) (unknown[facility]) Result panel 219 (unknown) (no date) (unknown[facility]) Result panel 220 (unknown) (no date) (unknown) [facility]) Result panel 221 (unknown) (no date) (unknown) [facility]) Result panel 222 (unknown) (no (unknown) (unknown) (no value) (units (unk nown) date) unknown) (unknown) (no (unknown) (unknown) [id number] (units (unkno wn) date) unknown) (unknown) (no (unknown) (unknown) 05/09/22 (units (unkno wn) date) unknown) (unknown) (no (unknown) (unknown) 1. No acute (units (un known) date) cardiopulmonary unknown) disease. (unknown) (no (unknown) (unknown) [address] [place] [address] (units (unknown) date) unknown) (unknown) (no (unknown) (unknown) 2. Aneurysmal (units ( unknown) date) dilatation of the unknown) ascending thoracic aorta redemonstrated. (unknown) (no (unknown) (unknown) Accession Number: (units (unknown) date) [id number] unknown) (unknown) (no (unknown) (unknown) Age/Sex: 72 / F (units (unknown) date) Date of Service: unknown) (unknown) (no (unknown) (unknown) [place], [place] (units ( unknown) date) [id number] unknown) (unknown) (no (unknown) (unknown) Approved by: (units (u nknown) date) Ray Harris, unknown) [place] on 05/09/2022 at 23:09 (unknown) (no (unknown) (unknown) Bones and chest (units (unknown) date) wall: No unknown) suspicious bony lesions. Overlying soft tissues (unknown) (no (unknown) (unknown) COMPARISON: (units (un known) date) [facility], unknown) CT, CT ANGIO CHEST, 03/23/2022, 22:32. [facility] (no (unknown) (unknown) CR, XR CHEST 1V, (units (unknown) date) 03/23/2022, 16:10. unknown) (unknown) (no (unknown) (unknown) CT. Heart (units (unkn own) date) unknown) (unknown) (no (unknown) (unknown) : 1950 (units (unknown) date) Acct:[id number] unknown) (unknown) (no (unknown) (unknown) Dictated by: (units (u nknown) date) Ray Harris, unknown) [place] on 05/09/2022 at 23:08 (unknown) (no (unknown) (unknown) FINDINGS: (units (unkn own) date) unknown) (unknown) (no (unknown) (unknown) Hospital, (units (unkn own) date) unknown) (unknown) (no (unknown) (unknown) IMPRESSION: (units (un known) date) unknown) (unknown) (no (unknown) (unknown) INDICATIONS: (units (u nknown) date) chest pain unknown) (unknown) (no (unknown) (unknown) [facility] (units (unknown) date) unknown) (unknown) (no (unknown) (unknown) Loc: ED (units (unkno wn) date) unknown) (unknown) (no (unknown) (unknown) Lungs and pleura: (units (unknown) date) Lungs are clear. unknown) No pleural effusions or pneumothorax. (unknown) (no (unknown) (unknown) Mediastinum: (units (u nknown) date) Mediastinal unknown) contours are unchanged, with enlargement of the (unknown) (no (unknown) (unknown) Ordering (units (unkno wn) date) Provider: unknown) Joanna Monaco MD (unknown) (no (unknown) (unknown) PROCEDURE: XR (units ( unknown) date) CHEST 1V unknown) (unknown) (no (unknown) (unknown) Patient: (units (unkno wn) date) Duncan Rock unknown) MR#: [id number] (unknown) (no (unknown) (unknown) Procedure: XR (units ( unknown) date) chest 1V unknown) (unknown) (no (unknown) (unknown) Signed (units (unkno wn) date) unknown) (unknown) (no (unknown) (unknown) Surgical changes (units (unknown) date) and devices: None. unknown) (unknown) (no (unknown) (unknown) TECHNIQUE: One (units (unknown) date) view of the chest unknown) was acquired. (unknown) (no (unknown) (unknown) XRay Report (units (un known) date) unknown) (unknown) (no (unknown) (unknown) aortic contour (units (unknown) date) consistent with an unknown) ascending aortic aneurysm seen on the prior (unknown) (no (unknown) (unknown) appear (units (unkno wn) date) unknown) (unknown) (no (unknown) (unknown) ascending (units (unkn own) date) unknown) (unknown) (no (unknown) (unknown) size is enlarged. (units (unknown) date) unknown) (unknown) (no (unknown) (unknown) unremarkable. (units ( unknown) date) unknown) Result panel 223 (unknown) (no date) (unknown) (unknown) 0.9 % (unkn own) (unknown) (no date) (unknown) (unknown) 1.0 % (unkn own) (unknown) (no date) (unknown) (unknown) 100 /ul (unkn own) (unknown) (no date) (unknown) (unknown) 100 /ul (unkn own) (unknown) (no date) (unknown) (unknown) 14.2 g/dl (unkn own) (unknown) (no date) (unknown) (unknown) 15.0 % (unkn own) (unknown) (no date) (unknown) (unknown) 1700 /ul (unkn own) (unknown) (no date) (unknown) (unknown) 18.2 % (unkn own) (unknown) (no date) (unknown) (unknown) 28.0 pg (unkn own) (unknown) (no date) (unknown) (unknown) 328 x10 3/ul (unkn own) (unknown) (no date) (unknown) (unknown) 33.0 % (unkn own) (unknown) (no date) (unknown) (unknown) 42.9 % (unkn own) (unknown) (no date) (unknown) (unknown) 5.06 x10 6/ul (unkn own) (unknown) (no date) (unknown) (unknown) 6800 /ul (unkn own) (unknown) (no date) (unknown) (unknown) 7.7 % (unkn own) (unknown) (no date) (unknown) (unknown) 700 /ul (unkn own) (unknown) (no date) (unknown) (unknown) 72.2 % (unkn own) (unknown) (no date) (unknown) (unknown) 84.9 fl (unkn own) (unknown) (no date) (unknown) (unknown) 9.4 x10 3/ul (unkn own) Result panel 224 (unknown) (no date) (unknown) (unknown) 1.2 (units unknown) (unknown) (unknown) (no date) (unknown) (unknown) 13.5 seconds (unkn own) (unknown) (no date) (unknown) (unknown) 50 seconds (unkn own) (unknown) (no date) (unknown) (unknown) 50 seconds (unkn own) Result panel 225 (unknown) (no date) (unknown) (unknown) Negative (units (unkn own) unknown) (unknown) (no date) (unknown) (unknown) Negative (units (unkn own) unknown) Result panel 226 (unknown) (no date) (unknown) (unknown) > 60 ml/min (unkn own) (unknown) (no date) (unknown) (unknown) > 60 ml/min (unkn own) (unknown) (no date) (unknown) (unknown) 0.8 mg/dl (unkn own) (unknown) (no date) (unknown) (unknown) 0.87 mg/dl (unkn own) (unknown) (no date) (unknown) (unknown) 1.3 (units (unkn own) unknown) (unknown) (no date) (unknown) (unknown) 1.9 mg/dl (unkn own) (unknown) (no date) (unknown) (unknown) 103 mg/dl (unkn own) (unknown) (no date) (unknown) (unknown) 103 mg/dl (unkn own) (unknown) (no date) (unknown) (unknown) 109 u/l (unkn own) (unknown) (no date) (unknown) (unknown) 135 mmol/l (unkn own) (unknown) (no date) (unknown) (unknown) 152 u/l (unkn own) (unknown) (no date) (unknown) (unknown) 17 iu/l (unkn own) (unknown) (no date) (unknown) (unknown) 26 iu/l (unkn own) (unknown) (no date) (unknown) (unknown) 27 mg/dl (unkn own) (unknown) (no date) (unknown) (unknown) 27 mmol/l (unkn own) (unknown) (no date) (unknown) (unknown) 3.3 g/dl (unkn own) (unknown) (no date) (unknown) (unknown) 31.0 (units (unkn own) unknown) (unknown) (no date) (unknown) (unknown) 4.4 g/dl (unkn own) (unknown) (no date) (unknown) (unknown) 4.4 mmol/l (unkn own) (unknown) (no date) (unknown) (unknown) 44 u/l (unkn own) (unknown) (no date) (unknown) (unknown) 7.7 g/dl (unkn own) (unknown) (no date) (unknown) (unknown) 9.4 mg/dl (unkn own) (unknown) (no date) (unknown) (unknown) 97 mmol/l (unkn own) (unknown) (no date) (unknown) (unknown) Test not % (unkn own) performed (unknown) (no date) (unknown) (unknown) Test not % (unkn own) performed (unknown) (no date) (unknown) (unknown) Test not ng/ml (unkn own) performed (unknown) (no date) (unknown) (unknown) Test not ng/ml (unkn own) performed Result panel 227 (unknown) (no date) (unknown) (unknown) > 60 ml/min (unkn own) (unknown) (no date) (unknown) (unknown) > 60 ml/min (unkn own) (unknown) (no date) (unknown) (unknown) 0.018 ng/ml (unkn own) (unknown) (no date) (unknown) (unknown) 0.018 ng/ml (unkn own) (unknown) (no date) (unknown) (unknown) 0.8 mg/dl (unkn own) (unknown) (no date) (unknown) (unknown) 0.87 mg/dl (unkn own) (unknown) (no date) (unknown) (unknown) 1.3 (units (unkn own) unknown) (unknown) (no date) (unknown) (unknown) 1.9 mg/dl (unkn own) (unknown) (no date) (unknown) (unknown) 103 mg/dl (unkn own) (unknown) (no date) (unknown) (unknown) 103 mg/dl (unkn own) (unknown) (no date) (unknown) (unknown) 109 u/l (unkn own) (unknown) (no date) (unknown) (unknown) 135 mmol/l (unkn own) (unknown) (no date) (unknown) (unknown) 152 u/l (unkn own) (unknown) (no date) (unknown) (unknown) 17 iu/l (unkn own) (unknown) (no date) (unknown) (unknown) 26 iu/l (unkn own) (unknown) (no date) (unknown) (unknown) 27 mg/dl (unkn own) (unknown) (no date) (unknown) (unknown) 27 mmol/l (unkn own) (unknown) (no date) (unknown) (unknown) 3.3 g/dl (unkn own) (unknown) (no date) (unknown) (unknown) 31.0 (units (unkn own) unknown) (unknown) (no date) (unknown) (unknown) 4.4 g/dl (unkn own) (unknown) (no date) (unknown) (unknown) 4.4 mmol/l (unkn own) (unknown) (no date) (unknown) (unknown) 44 u/l (unkn own) (unknown) (no date) (unknown) (unknown) 7.7 g/dl (unkn own) (unknown) (no date) (unknown) (unknown) 9.4 mg/dl (unkn own) (unknown) (no date) (unknown) (unknown) 97 mmol/l (unkn own) (unknown) (no date) (unknown) (unknown) Test not % (unkn own) performed (unknown) (no date) (unknown) (unknown) Test not % (unkn own) performed (unknown) (no date) (unknown) (unknown) Test not ng/ml (unkn own) performed (unknown) (no date) (unknown) (unknown) Test not ng/ml (unkn own) performed Result panel 228 (unknown) (no (unknown) (unknown) (no value) (units (unk nown) date) unknown) (unknown) (no (unknown) (unknown) (4-6) #30 tabs (units (unknown) date) unknown) (unknown) (no (unknown) (unknown) (Lamictal) (units (unk nown) date) unknown) (unknown) (no (unknown) (unknown) 05/09/22 05/09/22 (units (unknown) date) 05/09/22 unknown) Range/Units (unknown) (no (unknown) (unknown) 05/09/22 21:59 (units (unknown) date) unknown) (unknown) (no (unknown) (unknown) 05/09/22 22:04 (units (unknown) date) unknown) (unknown) (no (unknown) (unknown) 05/09/22 22:05 (units (unknown) date) unknown) (unknown) (no (unknown) (unknown) 05/09/22 (units (unkno wn) date) Range/Units unknown) (unknown) (no (unknown) (unknown) 05/09/22 (units (unkno wn) date) unknown) (unknown) (no (unknown) (unknown) [id number] (units (unkno wn) date) unknown) (unknown) (no (unknown) (unknown) 1 tab PO DAILY (units (unknown) date) unknown) (unknown) (no (unknown) (unknown) 1 tab PO Q6H PRN (units (unknown) date) (Reason: Pain unknown) (Scale Score 4-6)) (unknown) (no (unknown) (unknown) 1 unit PO DAILY (units (unknown) date) unknown) (unknown) (no (unknown) (unknown) 1. No acute (units (un known) date) cardiopulmonary unknown) disease. (unknown) (no (unknown) (unknown) 10 mg PO BEDTIME (units (unknown) date) unknown) (unknown) (no (unknown) (unknown) 100 mg PO BEDTIME (units (unknown) date) unknown) (unknown) (no (unknown) (unknown) 03/25/22 (units (unkno wn) date) unknown) (unknown) (no (unknown) (unknown) 2. Aneurysmal (units ( unknown) date) dilatation of the unknown) ascending thoracic aorta redemonstrated.? (unknown) (no (unknown) (unknown) 21:41 05/09/22 (units (unknown) date) unknown) (unknown) (no (unknown) (unknown) 21:59 21:59 21:59 (units (unknown) date) unknown) (unknown) (no (unknown) (unknown) 22:00 05/09/22 (units (unknown) date) unknown) (unknown) (no (unknown) (unknown) 22:01 05/09/22 (units (unknown) date) unknown) (unknown) (no (unknown) (unknown) 22:01 (units (unkno wn) date) unknown) (unknown) (no (unknown) (unknown) 22:05 (units (unkno wn) date) unknown) (unknown) (no (unknown) (unknown) 22:30 05/09/22 (units (unknown) date) unknown) (unknown) (no (unknown) (unknown) 22:31 05/09/22 (units (unknown) date) unknown) (unknown) (no (unknown) (unknown) 22:31 (units (unkno wn) date) unknown) (unknown) (no (unknown) (unknown) 23:00 05/09/22 (units (unknown) date) unknown) (unknown) (no (unknown) (unknown) 23:00 (units (unkno wn) date) unknown) (unknown) (no [...] date) 3XD unknown) (unknown) (no (unknown) (unknown) ? (units (unkno wn) date) unknown) (unknown) (no (unknown) (unknown) ALT (<35) IU/L (units (unknown) date) unknown) (unknown) (no (unknown) (unknown) ALT 17 (<35) IU/L (units (unknown) date) unknown) (unknown) (no (unknown) (unknown) APTT (26-36) (units (u nknown) date) SECONDS unknown) (unknown) (no (unknown) (unknown) APTT 50 H (26-36) (units (unknown) date) SECONDS unknown) (unknown) (no (unknown) (unknown) AST (14-36) IU/L (units (unknown) date) unknown) (unknown) (no (unknown) (unknown) AST 26 (14-36) (units (unknown) date) IU/L unknown) (unknown) (no (unknown) (unknown) Age/Sex: 72 / F (units (unknown) date) unknown) (unknown) (no (unknown) (unknown) Albumin (3.5-5.0) (units (unknown) date) g/dL unknown) (unknown) (no (unknown) (unknown) Albumin 4.4 (units (un known) date) (3.5-5.0) g/dL unknown) (unknown) (no (unknown) (unknown) Albumin/Globulin (units (unknown) date) Ratio (1.0-2.8) unknown) (unknown) (no (unknown) (unknown) Albumin/Globulin (units (unknown) date) Ratio 1.3 (1.0-2.8) unknown) (unknown) (no (unknown) (unknown) Alkaline (units (unkno wn) date) Phosphatase unknown) (38-126) U/L (unknown) (no (unknown) (unknown) Alkaline (units (unkno wn) date) Phosphatase 109 unknown) (38-126) U/L (unknown) (no (unknown) (unknown) Allergies (units (unkn own) date) unknown) (unknown) (no (unknown) (unknown) Allergy/AdvReac (units (unknown) date) Type Severity unknown) Reaction Status Date / Time (unknown) (no (unknown) (unknown) Aspirin (Aspirin (units (unknown) date) 81 Mg Chew Tab) 324 unknown) mg PO NOW ONE (unknown) (no (unknown) (unknown) BUN (7-17) mg/dL (units (unknown) date) unknown) (unknown) (no (unknown) (unknown) BUN 27 H (7-17) (units (unknown) date) mg/dL unknown) (unknown) (no (unknown) (unknown) BUN/Creatinine (units (unknown) date) Ratio (6-22) unknown) (unknown) (no (unknown) (unknown) BUN/Creatinine (units (unknown) date) Ratio 31.0 H (6-22) unknown) (unknown) (no (unknown) (unknown) Baso # (Auto) (units ( unknown) date) (0-100) /uL unknown) (unknown) (no (unknown) (unknown) Baso # (Auto) 100 (units (unknown) date) (0-100) /uL unknown) (unknown) (no (unknown) (unknown) Baso % (Auto) (units ( unknown) date) (0-2) % unknown) (unknown) (no (unknown) (unknown) Baso % (Auto) 0.9 (units (unknown) date) (0-2) % unknown) (unknown) (no (unknown) (unknown) Blood Pressure (units (unknown) date) 114/49 L 115/52 L unknown) (unknown) (no (unknown) (unknown) Blood Pressure (units (unknown) date) 123/51 L 05/09/22 unknown) 21:41 (unknown) (no (unknown) (unknown) Blood Pressure (units (unknown) date) 123/51 L 129/56 L unknown) (unknown) (no (unknown) (unknown) Blood Pressure (units (unknown) date) unknown) (unknown) (no (unknown) (unknown) Bones and chest (units (unknown) date) wall:? No unknown) suspicious bony lesions.? Overlying soft tissues (unknown) (no (unknown) (unknown) CK-MB (CK-2) Rel (units (unknown) date) Index TNP unknown) (unknown) (no (unknown) (unknown) CK-MB (CK-2) Rel (units (unknown) date) Index unknown) (unknown) (no (unknown) (unknown) CK-MB (CK-2) TNP (units (unknown) date) unknown) (unknown) (no (unknown) (unknown) CK-MB (CK-2) (units (u nknown) date) unknown) (unknown) (no (unknown) (unknown) COVID19 -Nasal (units (unknown) date) RAPID/Pre-Proc Stat unknown) (unknown) (no (unknown) (unknown) CT.? Heart (units (unk nown) date) unknown) (unknown) (no (unknown) (unknown) Calcium (8.4-10.2) (units (unknown) date) mg/dL unknown) (unknown) (no (unknown) (unknown) Calcium 9.4 (units (un known) date) (8.4-10.2) mg/dL unknown) (unknown) (no (unknown) (unknown) Carbon Dioxide (units (unknown) date) (22-32) mmol/L unknown) (unknown) (no (unknown) (unknown) Carbon Dioxide 27 (units (unknown) date) (22-32) mmol/L unknown) (unknown) (no (unknown) (unknown) Chest x-ray: (units (u nknown) date) unknown) (unknown) (no (unknown) (unknown) Chief complaint: (units (unknown) date) Weakness unknown) (unknown) (no (unknown) (unknown) Chloride (98-107) (units (unknown) date) mmol/L unknown) (unknown) (no (unknown) (unknown) Chloride 97 L (units ( unknown) date) (98-107) mmol/L unknown) (unknown) (no (unknown) (unknown) Complete Blood (units (unknown) date) Count AUTO DIFF unknown) Stat (unknown) (no (unknown) (unknown) Comprehensive (units ( unknown) date) Metabolic Panel unknown) Stat (unknown) (no (unknown) (unknown) Course (units (unkno wn) date) unknown) (unknown) (no (unknown) (unknown) Creatinine (units (unk nown) date) (0.52-1.04) mg/dL unknown) (unknown) (no (unknown) (unknown) Creatinine 0.87 (units (unknown) date) (0.52-1.04) mg/dL unknown) (unknown) (no (unknown) (unknown) : 1950 (units (unknown) date) Acct:[id number] unknown) (unknown) (no (unknown) (unknown) Date of Service: (units (unknown) date) 05/09/22 unknown) (unknown) (no (unknown) (unknown) Departure (units (unkn own) date) unknown) (unknown) (no (unknown) (unknown) Dictated by: (units (u nknown) date) Ray Harris unknownNickie Tse on 05/09/2022 at 23:08 ? ? (unknown) (no (unknown) (unknown) Discharge Plan (units (unknown) date) unknown) (unknown) (no (unknown) (unknown) Discontinued (units (u nknown) date) Medications unknown) (unknown) (no (unknown) (unknown) ECG Data (units (unkno wn) date) unknown) (unknown) (no (unknown) (unknown) ED Orders (units (unkn own) date) unknown) (unknown) (no (unknown) (unknown) EKG-12 Lead Stat (units (unknown) date) unknown) (unknown) (no (unknown) (unknown) ER Physician: (units ( unknown) date) Joanna Monaco MD unknown) (unknown) (no (unknown) (unknown) Emergency Report (units (unknown) date) unknown) (unknown) (no (unknown) (unknown) Eos # (Auto) (units (u nknown) date) (0-450) /uL unknown) (unknown) (no (unknown) (unknown) Eos # (Auto) 100 (units (unknown) date) (0-450) /uL unknown) (unknown) (no (unknown) (unknown) Eos % (Auto) (2-4) (units (unknown) date) % unknown) (unknown) (no (unknown) (unknown) Eos % (Auto) 1.0 L (units (unknown) date) (2-4) % unknown) (unknown) (no (unknown) (unknown) Estimated GFR > 60 (units (unknown) date) (>60) mL/min unknown) (unknown) (no (unknown) (unknown) Estimated GFR (units ( unknown) date) (>60) mL/min unknown) (unknown) (no (unknown) (unknown) Exam (units (unkno wn) date) unknown) (unknown) (no (unknown) (unknown) FINDINGS:? (units (unk nown) date) unknown) (unknown) (no (unknown) (unknown) Fibromyalgia (units (u nknown) date) unknown) (unknown) (no (unknown) (unknown) General (units (unkno wn) date) unknown) (unknown) (no (unknown) (unknown) Globulin (1.7-4.1) (units (unknown) date) g/dL unknown) (unknown) (no (unknown) (unknown) Globulin 3.3 (units (u nknown) date) (1.7-4.1) g/dL unknown) (unknown) (no (unknown) (unknown) Glucose (80-110) (units (unknown) date) mg/dL unknown) (unknown) (no (unknown) (unknown) Glucose 103 (units (un known) date) (80-110) mg/dL unknown) (unknown) (no (unknown) (unknown) HPI - General (units ( unknown) date) Adult unknown) (unknown) (no (unknown) (unknown) Hct (36-46) % (units ( unknown) date) unknown) (unknown) (no (unknown) (unknown) Hct 42.9 (36-46) % (units (unknown) date) unknown) (unknown) (no (unknown) (unknown) Hgb (12.0-16.0) (units (unknown) date) g/dL unknown) (unknown) (no (unknown) (unknown) Hgb 14.2 (units (unkno wn) date) (12.0-16.0) g/dL unknown) (unknown) (no (unknown) (unknown) Home Medications (units (unknown) date) unknown) (unknown) (no (unknown) (unknown) Hypertension (units (u nknown) date) unknown) (unknown) (no (unknown) (unknown) Hypothyroidism (units (unknown) date) unknown) (unknown) (no (unknown) (unknown) IMPRESSION:? (units (u nknown) date) unknown) (unknown) (no (unknown) (unknown) INR (0.9-1.3) [...] (unknown) date) unknown) (unknown) (no (unknown) (unknown) [facility] (units (unknown) date) [address] unknown) [place] [address] (unknown) (no (unknown) (unknown) LVH with (units (unkno wn) date) repolarization unknown) abnormalities (unknown) (no (unknown) (unknown) Lab Data (units (unkno wn) date) unknown) (unknown) (no (unknown) (unknown) Lab Results (units (un known) date) unknown) (unknown) (no (unknown) (unknown) Labs: (units (unkno wn) date) unknown) (unknown) (no (unknown) (unknown) Lipase (23-300) (units (unknown) date) U/L unknown) (unknown) (no (unknown) (unknown) Lipase 152 (units (unk nown) date) (23-300) U/L unknown) (unknown) (no (unknown) (unknown) Lipase Stat (units (un known) date) unknown) (unknown) (no (unknown) (unknown) Lungs and pleura:? (units (unknown) date) Lungs are clear.? unknown) No pleural effusions or pneumothorax.? (unknown) (no (unknown) (unknown) Darrell Cottrell, (units (unknown) date) [Primary Care unknown) Provider] (unknown) (no (unknown) (unknown) Lymph # (Auto) (units (unknown) date) (7836-7700) /uL unknown) (unknown) (no (unknown) (unknown) Lymph # (Auto) (units (unknown) date) 1700 ([id number]) unknown) /uL (unknown) (no (unknown) (unknown) Lymph % (Auto) (units (unknown) date) (25-40) % unknown) (unknown) (no (unknown) (unknown) Lymph % (Auto) (units (unknown) date) 18.2 L (25-40) % unknown) (unknown) (no (unknown) (unknown) MCH (26-34) PG (units (unknown) date) unknown) (unknown) (no (unknown) (unknown) MCH 28.0 (26-34) (units (unknown) date) PG unknown) (unknown) (no (unknown) (unknown) MCHC (30-36) % (units (unknown) date) unknown) (unknown) (no (unknown) (unknown) MCHC 33.0 (30-36) (units (unknown) date) % unknown) (unknown) (no (unknown) (unknown) MCV (80-100) fL (units (unknown) date) unknown) (unknown) (no (unknown) (unknown) MCV 84.9 (80-100) (units (unknown) date) fL unknown) (unknown) (no (unknown) (unknown) Magnesium (units (unkn own) date) (1.6-2.3) mg/dL unknown) (unknown) (no (unknown) (unknown) Magnesium 1.9 (units ( unknown) date) (1.6-2.3) mg/dL unknown) (unknown) (no (unknown) (unknown) Magnesium Stat (units (unknown) date) unknown) (unknown) (no (unknown) (unknown) Mediastinum:? (units ( unknown) date) Mediastinal unknown) contours are unchanged, with enlargement of the (unknown) (no (unknown) (unknown) Medical Decision (units (unknown) date) Making unknown) (unknown) (no (unknown) (unknown) Medical History (units (unknown) date) (Reviewed 03/24/22 unknown) @ 12:05 by Hay Au MD) (unknown) (no (unknown) (unknown) Medication (units (unk nown) date) Instructions unknown) Recorded Confirmed (unknown) (no (unknown) (unknown) Medication (units (unk nown) date) Instructions unknown) Recorded (unknown) (no (unknown) (unknown) Mode of arrival: (units (unknown) date) Wheelchair unknown) (unknown) (no (unknown) (unknown) Mobile # (Auto) (units ( unknown) date) (0-900) /uL unknown) (unknown) (no (unknown) (unknown) Mobile # (Auto) 700 (units (unknown) date) (0-900) /uL unknown) (unknown) (no (unknown) (unknown) Mobile % (Auto) (units ( unknown) date) (3-14) % unknown) (unknown) (no (unknown) (unknown) Mobile % (Auto) 7.7 (units (unknown) date) (3-14) % unknown) (unknown) (no (unknown) (unknown) Neut # (Auto) (units ( unknown) date) (2618-7146) /uL unknown) (unknown) (no (unknown) (unknown) Neut # (Auto) 6800 (units (unknown) date) (7641-6199) /uL unknown) (unknown) (no (unknown) (unknown) Neut % (Auto) (units ( unknown) date) (50-75) % unknown) (unknown) (no (unknown) (unknown) Neut % (Auto) 72.2 (units (unknown) date) (50-75) % unknown) (unknown) (no (unknown) (unknown) No Action (units (unkn own) date) unknown) (unknown) (no (unknown) (unknown) No pertinent past (units (unknown) date) surgical history unknown) (unknown) (no (unknown) (unknown) No significant (units (unknown) date) ischemic changes unknown) (unknown) (no (unknown) (unknown) Ordered: (units (unkno wn) date) unknown) (unknown) (no (unknown) (unknown) Orders (units (unkno wn) date) unknown) (unknown) (no (unknown) (unknown) Oxygen Delivery (units (unknown) date) Method 05/09/22 unknown) 21:41 (unknown) (no (unknown) (unknown) Oxygen Delivery (units (unknown) date) Method Room Air unknown) (unknown) (no (unknown) (unknown) Oxygen Delivery (units (unknown) date) Method unknown) (unknown) (no (unknown) (unknown) PT (10.1-12.7) (units (unknown) date) SECONDS unknown) (unknown) (no (unknown) (unknown) PT 13.5 H (units (unkn own) date) (10.1-12.7) SECONDS unknown) (unknown) (no (unknown) (unknown) Partial (units (unkno wn) date) Thromboplastin Time unknown) Stat (unknown) (no (unknown) (unknown) Patient History (units (unknown) date) unknown) (unknown) (no (unknown) (unknown) Patient: (units (unkno wn) date) [place] unknown) MR#: [id number] (unknown) (no (unknown) (unknown) Plt Count (units (unkn own) date) (150-400) X103/uL unknown) (unknown) (no (unknown) (unknown) Plt Count 328 (units ( unknown) date) (150-400) X103/uL unknown) (unknown) (no (unknown) (unknown) Potassium (units (unkn own) date) (3.4-5.1) mmol/L unknown) (unknown) (no (unknown) (unknown) Potassium 4.4 (units ( unknown) date) (3.4-5.1) mmol/L unknown) (unknown) (no (unknown) (unknown) Prescriptions: (units (unknown) date) unknown) (unknown) (no (unknown) (unknown) Previous Rx's (units ( unknown) date) unknown) (unknown) (no (unknown) (unknown) Prothrombin Time (units (unknown) date) INR Stat unknown) (unknown) (no (unknown) (unknown) Pulse Oximetry 100 (units (unknown) date) 05/09/22 21:41 unknown) (unknown) (no (unknown) (unknown) Pulse Oximetry 100 (units (unknown) date) unknown) (unknown) (no (unknown) (unknown) Pulse Oximetry 98 (units (unknown) date) unknown) (unknown) (no (unknown) (unknown) Pulse Oximetry 99 (units (unknown) date) 98 97 unknown) (unknown) (no (unknown) (unknown) Pulse Rate 41 L (units (unknown) date) unknown) (unknown) (no (unknown) (unknown) Pulse Rate 42 L 43 (units (unknown) date) L 43 L unknown) (unknown) (no (unknown) (unknown) Pulse Rate 44 L (units (unknown) date) 05/09/22 21:41 unknown) (unknown) (no (unknown) (unknown) Pulse Rate 44 L 43 (units (unknown) date) L unknown) (unknown) (no (unknown) (unknown) QTC elongated at (units (unknown) date) 494 milliseconds unknown) (unknown) (no (unknown) (unknown) RBC (4.0-5.2) (units ( unknown) date) X106/uL unknown) (unknown) (no (unknown) (unknown) RBC 5.06 (4.0-5.2) (units (unknown) date) X106/uL unknown) (unknown) (no (unknown) (unknown) RDW (11.6-14.8) % (units (unknown) date) unknown) (unknown) (no (unknown) (unknown) RDW 15.0 H (units (unk nown) date) (11.6-14.8) % unknown) (unknown) (no (unknown) (unknown) Radiologist's (units ( unknown) date) Impression: unknown) (unknown) (no (unknown) (unknown) Referrals: (units (unk nown) date) unknown) (unknown) (no (unknown) (unknown) Related Data (units (u nknown) date) unknown) (unknown) (no (unknown) (unknown) Respiratory Rate (units (unknown) date) 18 05/09/22 21:41 unknown) (unknown) (no (unknown) (unknown) Respiratory Rate (units (unknown) date) 18 44 H unknown) (unknown) (no (unknown) (unknown) Respiratory Rate (units (unknown) date) 22 unknown) (unknown) (no (unknown) (unknown) Respiratory Rate (units (unknown) date) 43 H 12 14 unknown) (unknown) (no (unknown) (unknown) Restrictive lung (units (unknown) date) disease unknown) (unknown) (no (unknown) (unknown) Rx Instructions: (units (unknown) date) unknown) (unknown) (no (unknown) (unknown) SARS-CoV-2 (PCR) (units (unknown) date) (Negative) unknown) (unknown) (no (unknown) (unknown) SARS-CoV-2 (PCR) (units (unknown) date) Negative (Negative) unknown) (unknown) (no (unknown) (unknown) Signed By: (units (unk nown) date) unknown) (unknown) (no (unknown) (unknown) Sinus bradycardia (units (unknown) date) at a rate of 44 unknown) (unknown) (no (unknown) (unknown) Smoking Status: (units (unknown) date) Former smoker unknown) (unknown) (no (unknown) (unknown) Social History (units (unknown) date) (Reviewed 03/23/22 unknown) @ 16:07 by Liam Colón MD) (unknown) (no (unknown) (unknown) Sodium (137-145) (units (unknown) date) mmol/L unknown) (unknown) (no (unknown) (unknown) Sodium 135 L (units (u nknown) date) (137-145) mmol/L unknown) (unknown) (no (unknown) (unknown) Source: patient (units (unknown) date) unknown) (unknown) (no (unknown) (unknown) Stated complaint: (units (unknown) date) heart is unknown) fluctuating, uncontrolled temperature (unknown) (no (unknown) (unknown) Stop: 05/09/22 (units (unknown) date) 22:05 unknown) (unknown) (no (unknown) (unknown) 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 unknown) None.? (unknown) (no (unknown) (unknown) Takes 1 to 2 (units (u nknown) date) tablets every 6 unknown) hours (unknown) (no (unknown) (unknown) Takes 1/2 tab of (units (unknown) date) the 100mg in the AM unknown) (unknown) (no (unknown) (unknown) Takes 2 tablets (units (unknown) date) daily unknown) (unknown) (no (unknown) (unknown) Temperature 98 F (units (unknown) date) 05/09/22 21:41 unknown) (unknown) (no (unknown) (unknown) Temperature 98 F (units (unknown) date) unknown) (unknown) (no (unknown) (unknown) Temperature (units (un known) date) unknown) (unknown) (no (unknown) (unknown) Time Seen by (units (u nknown) date) Provider: 05/09/22 unknown) 23:53 (unknown) (no (unknown) (unknown) Total Bilirubin (units (unknown) date) (0.2-1.3) mg/dL unknown) (unknown) (no (unknown) (unknown) Total Bilirubin (units (unknown) date) 0.8 (0.2-1.3) mg/dL unknown) (unknown) (no (unknown) (unknown) Total Creatine (units (unknown) date) Kinase (30-135) U/L unknown) (unknown) (no (unknown) (unknown) Total Creatine (units (unknown) date) Kinase 44 (30-135) unknown) U/L (unknown) (no (unknown) (unknown) Total Protein (units ( unknown) date) (6.3-8.2) g/dL unknown) (unknown) (no (unknown) (unknown) Total Protein 7.7 (units (unknown) date) (6.3-8.2) g/dL unknown) (unknown) (no (unknown) (unknown) Troponin + CK (units ( unknown) date) Cardiac Panel Stat unknown) (unknown) (no (unknown) (unknown) Troponin I (units (unk nown) date) (0.01-0.034) ng/mL unknown) (unknown) (no (unknown) (unknown) Troponin I 0.018 (units (unknown) date) (0.01-0.034) ng/mL unknown) (unknown) (no (unknown) (unknown) Vital Signs - 8 hr (units (unknown) date) unknown) (unknown) (no (unknown) (unknown) Vital Signs (units (un known) date) unknown) (unknown) (no (unknown) (unknown) Vital signs: (units (u nknown) date) unknown) (unknown) (no (unknown) (unknown) WBC (4.5-11.0) (units (unknown) date) X103/uL unknown) (unknown) (no (unknown) (unknown) WBC 9.4 (4.5-11.0) (units (unknown) date) X103/uL unknown) (unknown) (no (unknown) (unknown) XR chest 1V Stat (units (unknown) date) unknown) (unknown) (no (unknown) (unknown) [Embedded Image (units (unknown) date) Not Available] unknown) (unknown) (no (unknown) (unknown) [From Septra] (units ( unknown) date) unknown) (unknown) (no (unknown) (unknown) adhesive tape (units ( unknown) date) AdvReac Verified unknown) 05/09/22 21:46 (unknown) (no (unknown) (unknown) alcohol intake (units (unknown) date) frequency: 0-2 unknown) drinks per day (unknown) (no (unknown) (unknown) alcohol intake: (units (unknown) date) current unknown) (unknown) (no (unknown) (unknown) aortic contour (units (unknown) date) consistent with an unknown) ascending aortic aneurysm seen on the prior (unknown) (no (unknown) (unknown) appear (units (unkno wn) date) unknown) (unknown) (no (unknown) (unknown) ascending (units (unkn own) date) unknown) (unknown) (no (unknown) (unknown) cholecalciferol (units (unknown) date) (vitamin D3) 50 50 unknown) mcg PO DAILY 03/25/22 03/25/22 (unknown) (no (unknown) (unknown) cholecalciferol (units (unknown) date) (vitamin D3) 50 mcg unknown) (2,000 unit) Tablet (unknown) (no (unknown) (unknown) diazepam 10 mg (units (unknown) date) tablet (Valium) 10 unknown) mg PO BEDTIME 03/25/22 03/25/22 (unknown) (no (unknown) (unknown) diazepam [Valium] (units (unknown) date) 10 mg Tablet unknown) (unknown) (no (unknown) (unknown) fentanyl 75 mcg/hr (units (unknown) date) patch 72 hour unknown) (unknown) (no (unknown) (unknown) fentanyl 75 mcg/hr (units (unknown) date) transdermal 75 mcg unknown) transdermal 3XD pain 03/23/22 03/23/22 (unknown) (no (unknown) (unknown) fluoxetine 40 mg (units (unknown) date) capsule (Prozac) 40 unknown) mg PO DAILY ##0 11/29/12 03/25/22 (unknown) (no (unknown) (unknown) fluoxetine (units (unk nown) date) [Prozac] 40 MG unknown) capsule (unknown) (no (unknown) (unknown) household members: (units (unknown) date) significant other unknown) (unknown) (no (unknown) (unknown) lamotrigine 100 mg (units (unknown) date) tablet 100 mg PO unknown) BEDTIME 03/25/22 03/25/22 (unknown) (no (unknown) (unknown) lamotrigine 100 mg (units (unknown) date) tablet 50 mg PO unknown) DAILY 03/25/22 03/25/22 (unknown) (no (unknown) (unknown) lamotrigine (units (un known) date) [Lamictal] 100 mg unknown) Tablet (unknown) (no (unknown) (unknown) last patch applied (units (unknown) date) 03/22 on left wrist unknown) (unknown) (no (unknown) (unknown) levothyroxine 75 (units (unknown) date) mcg Tablet unknown) (unknown) (no (unknown) (unknown) levothyroxine 75 (units (unknown) date) mcg tablet 75 mcg unknown) PO DAILY 03/25/22 03/25/22 (unknown) (no (unknown) (unknown) mcg (2,000 unit) (units (unknown) date) tablet unknown) (unknown) (no (unknown) (unknown) metoprolol (units (unk nown) date) tartrate 50 mg unknown) Tablet (unknown) (no (unknown) (unknown) metoprolol (units (unk nown) date) tartrate 50 mg unknown) tablet 50 mg PO BID 03/25/22 03/25/22 (unknown) (no (unknown) (unknown) mg tablet (units (unkn own) date) (Percocet) 4-6) unknown) (unknown) (no (unknown) (unknown) oxycodone 5 mg (units (unknown) date) Tablet unknown) (unknown) (no (unknown) (unknown) oxycodone 5 mg (units (unknown) date) tablet 5 mg PO Q4HR unknown) PRN Pain, Moderate 03/28/22 (unknown) (no (unknown) (unknown) oxycodone-acetamin (units (unknown) date) ophen 5 mg-325 1 unknown) tab PO Q6H PRN Pain (Scale Score 03/25/22 (unknown) (no (unknown) (unknown) oxycodone-acetamin (units (unknown) date) ophen [Percocet] unknown) 5-325 mg Tablet (unknown) (no (unknown) (unknown) patch (units (unkno wn) date) unknown) (unknown) (no (unknown) (unknown) size is enlarged. (units (unknown) date) unknown) (unknown) (no (unknown) (unknown) substance use (units ( unknown) date) type: does not use unknown) (unknown) (no (unknown) (unknown) sulfamethoxazole (units (unknown) date) Allergy Verified unknown) 05/09/22 21:46 (unknown) (no (unknown) (unknown) trimethoprim [From (units (unknown) date) Septra] Allergy unknown) Verified 05/09/22 21:46 (unknown) (no (unknown) (unknown) unremarkable.? (units (unknown) date) unknown) (unknown) (no (unknown) (unknown) vitamin B complex (units (unknown) date) 1 tab PO DAILY unknown) 03/25/22 03/25/22 (unknown) (no (unknown) (unknown) vitamin B complex (units (unknown) date) Tablet unknown) (unknown) (no (unknown) (unknown) vitamin E 400 unit (units (unknown) date) Tablet unknown) (unknown) (no (unknown) (unknown) vitamin E 400 unit (units (unknown) date) tablet 1 unit PO unknown) DAILY 03/25/22 03/25/22 Result panel 229 (unknown) (no (unknown) (unknown) (no value) (units (unk nown) date) unknown) (unknown) (no (unknown) (unknown) (4-6) #30 tabs (units (unknown) date) unknown) (unknown) (no (unknown) (unknown) (Lamictal) (units (unk nown) date) unknown) (unknown) (no (unknown) (unknown) 05/09/22 05/09/22 (units (unknown) date) 05/09/22 unknown) Range/Units (unknown) (no (unknown) (unknown) 05/09/22 21:59 (units (unknown) date) unknown) (unknown) (no (unknown) (unknown) 05/09/22 22:04 (units (unknown) date) unknown) (unknown) (no (unknown) (unknown) 05/09/22 22:05 (units (unknown) date) unknown) (unknown) (no (unknown) (unknown) 05/09/22 (units (unkno wn) date) Range/Units unknown) (unknown) (no (unknown) (unknown) 05/09/22 (units (unkno wn) date) unknown) (unknown) (no (unknown) (unknown) [id number] (units (unkno wn) date) unknown) (unknown) (no (unknown) (unknown) 1 tab PO DAILY (units (unknown) date) unknown) (unknown) (no (unknown) (unknown) 1 tab PO Q6H PRN (units (unknown) date) (Reason: Pain unknown) (Scale Score 4-6)) (unknown) (no (unknown) (unknown) 1 unit PO DAILY (units (unknown) date) unknown) (unknown) (no (unknown) (unknown) 1. No acute (units (un known) date) cardiopulmonary unknown) disease. (unknown) (no (unknown) (unknown) 10 mg PO BEDTIME (units (unknown) date) unknown) (unknown) (no (unknown) (unknown) 100 mg PO BEDTIME (units (unknown) date) unknown) (unknown) (no (unknown) (unknown) 03/25/22 (units (unkno wn) date) unknown) (unknown) (no (unknown) (unknown) 2. Aneurysmal (units ( unknown) date) dilatation of the unknown) ascending thoracic aorta redemonstrated.? (unknown) (no (unknown) (unknown) 21:41 05/09/22 (units (unknown) date) unknown) (unknown) (no (unknown) (unknown) 21:59 21:59 21:59 (units (unknown) date) unknown) (unknown) (no (unknown) (unknown) 22:00 05/09/22 (units (unknown) date) unknown) (unknown) (no (unknown) (unknown) 22:01 05/09/22 (units (unknown) date) unknown) (unknown) (no (unknown) (unknown) 22:01 (units (unkno wn) date) unknown) (unknown) (no (unknown) (unknown) 22:05 (units (unkno wn) date) unknown) (unknown) (no (unknown) (unknown) 22:30 05/09/22 (units (unknown) date) unknown) (unknown) (no (unknown) (unknown) 22:31 05/09/22 (units (unknown) date) unknown) (unknown) (no (unknown) (unknown) 22:31 (units (unkno wn) date) unknown) (unknown) (no (unknown) (unknown) 23:00 05/09/22 (units (unknown) date) unknown) (unknown) (no (unknown) (unknown) 23:00 (units (unkno wn) date) unknown) (unknown) (no [...] (unknown) date) unknown) (unknown) (no (unknown) (unknown) 72-year-old woman (units (unknown) date) with a history of unknown) epilepsy, fibromyalgia, idiopathic pulmonary (unknown) (no (unknown) (unknown) 75 mcg PO DAILY (units (unknown) date) unknown) (unknown) (no (unknown) (unknown) 75 mcg transdermal (units (unknown) date) 3XD unknown) (unknown) (no (unknown) (unknown) ? (units (unkno wn) date) unknown) (unknown) (no (unknown) (unknown) ALT (<35) IU/L (units (unknown) date) unknown) (unknown) (no (unknown) (unknown) ALT 17 (<35) IU/L (units (unknown) date) unknown) (unknown) (no (unknown) (unknown) APTT (26-36) (units (u nknown) date) SECONDS unknown) (unknown) (no (unknown) (unknown) APTT 50 H (26-36) (units (unknown) date) SECONDS unknown) (unknown) (no (unknown) (unknown) AST (14-36) IU/L (units (unknown) date) unknown) (unknown) (no (unknown) (unknown) AST 26 (14-36) (units (unknown) date) IU/L unknown) (unknown) (no (unknown) (unknown) Age/Sex: 72 / F (units (unknown) date) unknown) (unknown) (no (unknown) (unknown) Albumin (3.5-5.0) (units (unknown) date) g/dL unknown) (unknown) (no (unknown) (unknown) Albumin 4.4 (units (un known) date) (3.5-5.0) g/dL unknown) (unknown) (no (unknown) (unknown) Albumin/Globulin (units (unknown) date) Ratio (1.0-2.8) unknown) (unknown) (no (unknown) (unknown) Albumin/Globulin (units (unknown) date) Ratio 1.3 (1.0-2.8) unknown) (unknown) (no (unknown) (unknown) Alkaline (units (unkno wn) date) Phosphatase unknown) (38-126) U/L (unknown) (no (unknown) (unknown) Alkaline (units (unkno wn) date) Phosphatase 109 unknown) (38-126) U/L (unknown) (no (unknown) (unknown) Allergies (units (unkn own) date) unknown) (unknown) (no (unknown) (unknown) Allergy/AdvReac (units (unknown) date) Type Severity unknown) Reaction Status Date / Time (unknown) (no (unknown) (unknown) Aspirin (Aspirin (units (unknown) date) 81 Mg Chew Tab) 324 unknown) mg PO NOW ONE (unknown) (no (unknown) (unknown) BUN (7-17) mg/dL (units (unknown) date) unknown) (unknown) (no (unknown) (unknown) BUN 27 H (7-17) (units (unknown) date) mg/dL unknown) (unknown) (no (unknown) (unknown) BUN/Creatinine (units (unknown) date) Ratio (6-22) unknown) (unknown) (no (unknown) (unknown) BUN/Creatinine (units (unknown) date) Ratio 31.0 H (6-22) unknown) (unknown) (no (unknown) (unknown) Baso # (Auto) (units ( unknown) date) (0-100) /uL unknown) (unknown) (no (unknown) (unknown) Baso # (Auto) 100 (units (unknown) date) (0-100) /uL unknown) (unknown) (no (unknown) (unknown) Baso % (Auto) (units ( unknown) date) (0-2) % unknown) (unknown) (no (unknown) (unknown) Baso % (Auto) 0.9 (units (unknown) date) (0-2) % unknown) (unknown) (no (unknown) (unknown) Blood Pressure (units (unknown) date) 114/49 L 115/52 L unknown) (unknown) (no (unknown) (unknown) Blood Pressure (units (unknown) date) 123/51 L 01/24/23 unknown) 21:41 (unknown) (no (unknown) (unknown) Blood Pressure (units (unknown) date) 123/51 L 129/56 L unknown) (unknown) (no (unknown) (unknown) Blood Pressure (units (unknown) date) unknown) (unknown) (no (unknown) (unknown) Bones and chest (units (unknown) date) wall:? No unknown) suspicious bony lesions.? Overlying soft tissues (unknown) (no (unknown) (unknown) CK-MB (CK-2) Rel (units (unknown) date) Index TNP unknown) (unknown) (no (unknown) (unknown) CK-MB (CK-2) Rel (units (unknown) date) Index unknown) (unknown) (no (unknown) (unknown) CK-MB (CK-2) TNP (units (unknown) date) unknown) (unknown) (no (unknown) (unknown) CK-MB (CK-2) (units (u nknown) date) unknown) (unknown) (no (unknown) (unknown) COVID19 -Nasal (units (unknown) date) RAPID/Pre-Proc Stat unknown) (unknown) (no (unknown) (unknown) CT.? Heart (units (unk nown) date) unknown) (unknown) (no (unknown) (unknown) Calcium (8.4-10.2) (units (unknown) date) mg/dL unknown) (unknown) (no (unknown) (unknown) Calcium 9.4 (units (un known) date) (8.4-10.2) mg/dL unknown) (unknown) (no (unknown) (unknown) Carbon Dioxide (units (unknown) date) (22-32) mmol/L unknown) (unknown) (no (unknown) (unknown) Carbon Dioxide 27 (units (unknown) date) (22-32) mmol/L unknown) (unknown) (no (unknown) (unknown) Chest x-ray: (units (u nknown) date) unknown) (unknown) (no (unknown) (unknown) Chief complaint: (units (unknown) date) Weakness unknown) (unknown) (no (unknown) (unknown) Chloride (98-107) (units (unknown) date) mmol/L unknown) (unknown) (no (unknown) (unknown) Chloride 97 L (units ( unknown) date) (98-107) mmol/L unknown) (unknown) (no (unknown) (unknown) Complete Blood (units (unknown) date) Count AUTO DIFF unknown) Stat (unknown) (no (unknown) (unknown) Comprehensive (units ( unknown) date) Metabolic Panel unknown) Stat (unknown) (no (unknown) (unknown) Course (units (unkno wn) date) unknown) (unknown) (no (unknown) (unknown) Creatinine (units (unk nown) date) (0.52-1.04) mg/dL unknown) (unknown) (no (unknown) (unknown) Creatinine 0.87 (units (unknown) date) (0.52-1.04) mg/dL unknown) (unknown) (no (unknown) (unknown) : 1950 (units (unknown) date) Acct:[id number] unknown) (unknown) (no (unknown) (unknown) Date of Service: (units (unknown) date) 05/09/22 unknown) (unknown) (no (unknown) (unknown) Departure (units (unkn own) date) unknown) (unknown) (no (unknown) (unknown) Dictated by: (units (u nknown) date) harmeet Lopez M.D. on 05/09/2022 at 23:08 ? ? (unknown) (no (unknown) (unknown) Discharge Plan (units (unknown) date) unknown) (unknown) (no (unknown) (unknown) Discontinued (units (u nknown) date) Medications unknown) (unknown) (no (unknown) (unknown) ECG Data (units (unkno wn) date) unknown) (unknown) (no (unknown) (unknown) ED Orders (units (unkn own) date) unknown) (unknown) (no (unknown) (unknown) EKG-12 Lead Stat (units (unknown) date) unknown) (unknown) (no (unknown) (unknown) ER Physician: (units ( unknown) date) Joanna Monaco MD unknown) (unknown) (no (unknown) (unknown) Emergency Report (units (unknown) date) unknown) (unknown) (no (unknown) (unknown) Eos # (Auto) (units (u nknown) date) (0-450) /uL unknown) (unknown) (no (unknown) (unknown) Eos # (Auto) 100 (units (unknown) date) (0-450) /uL unknown) (unknown) (no (unknown) (unknown) Eos % (Auto) (2-4) (units (unknown) date) % unknown) (unknown) (no (unknown) (unknown) Eos % (Auto) 1.0 L (units (unknown) date) (2-4) % unknown) (unknown) (no (unknown) (unknown) Estimated GFR > 60 (units (unknown) date) (>60) mL/min unknown) (unknown) (no (unknown) (unknown) Estimated GFR (units ( unknown) date) (>60) mL/min unknown) (unknown) (no (unknown) (unknown) Exam (units (unkno wn) date) unknown) (unknown) (no (unknown) (unknown) FINDINGS:? (units (unk nown) date) unknown) (unknown) (no (unknown) (unknown) Fibromyalgia (units (u nknown) date) unknown) (unknown) (no (unknown) (unknown) General (units (unkno wn) date) unknown) (unknown) (no (unknown) (unknown) Globulin (1.7-4.1) (units (unknown) date) g/dL unknown) (unknown) (no (unknown) (unknown) Globulin 3.3 (units (u nknown) date) (1.7-4.1) g/dL unknown) (unknown) (no (unknown) (unknown) Glucose (80-110) (units (unknown) date) mg/dL unknown) (unknown) (no (unknown) (unknown) Glucose 103 (units (un known) date) (80-110) mg/dL unknown) (unknown) (no (unknown) (unknown) HPI - General (units ( unknown) date) Adult unknown) (unknown) (no (unknown) (unknown) HPI narrative: (units (unknown) date) unknown) (unknown) (no (unknown) (unknown) Hct (36-46) % (units ( unknown) date) unknown) (unknown) (no (unknown) (unknown) Hct 42.9 (36-46) % (units (unknown) date) unknown) (unknown) (no (unknown) (unknown) Hgb (12.0-16.0) (units (unknown) date) g/dL unknown) (unknown) (no (unknown) (unknown) Hgb 14.2 (units (unkno wn) date) (12.0-16.0) g/dL unknown) (unknown) (no (unknown) (unknown) History of Present (units (unknown) date) Illness unknown) (unknown) (no (unknown) (unknown) Home Medications (units (unknown) date) unknown) (unknown) (no (unknown) (unknown) Hypertension (units (u nknown) date) unknown) (unknown) (no (unknown) (unknown) Hypothyroidism (units (unknown) date) unknown) (unknown) (no (unknown) (unknown) IMPRESSION:? (units (u nknown) date) unknown) (unknown) (no (unknown) (unknown) INR (0.9-1.3) [...] (unknown) date) unknown) (unknown) (no (unknown) (unknown) [facility] (units (unknown) date) [address] unknown) [place] [address] (unknown) (no (unknown) (unknown) LVH with (units (unkno wn) date) repolarization unknown) abnormalities (unknown) (no (unknown) (unknown) Lab Data (units (unkno wn) date) unknown) (unknown) (no (unknown) (unknown) Lab Results (units (un known) date) unknown) (unknown) (no (unknown) (unknown) Labs: (units (unkno wn) date) unknown) (unknown) (no (unknown) (unknown) Lipase (23-300) (units (unknown) date) U/L unknown) (unknown) (no (unknown) (unknown) Lipase 152 (units (unk nown) date) (23-300) U/L unknown) (unknown) (no (unknown) (unknown) Lipase Stat (units (un known) date) unknown) (unknown) (no (unknown) (unknown) Lungs and pleura:? (units (unknown) date) Lungs are clear.? unknown) No pleural effusions or pneumothorax.? (unknown) (no (unknown) (unknown) Darrell Cottrell, (units (unknown) date) [Primary Care unknown) Provider] (unknown) (no (unknown) (unknown) Lymph # (Auto) (units (unknown) date) (8150-6019) /uL unknown) (unknown) (no (unknown) (unknown) Lymph # (Auto) (units (unknown) date) 1700 (8098-5946) unknown) /uL (unknown) (no (unknown) (unknown) Lymph % (Auto) (units (unknown) date) (25-40) % unknown) (unknown) (no (unknown) (unknown) Lymph % (Auto) (units (unknown) date) 18.2 L (25-40) % unknown) (unknown) (no (unknown) (unknown) MCH (26-34) PG (units (unknown) date) unknown) (unknown) (no (unknown) (unknown) MCH 28.0 (26-34) (units (unknown) date) PG unknown) (unknown) (no (unknown) (unknown) MCHC (30-36) % (units (unknown) date) unknown) (unknown) (no (unknown) (unknown) MCHC 33.0 (30-36) (units (unknown) date) % unknown) (unknown) (no (unknown) (unknown) MCV (80-100) fL (units (unknown) date) unknown) (unknown) (no (unknown) (unknown) MCV 84.9 (80-100) (units (unknown) date) fL unknown) (unknown) (no (unknown) (unknown) Magnesium (units (unkn own) date) (1.6-2.3) mg/dL unknown) (unknown) (no (unknown) (unknown) Magnesium 1.9 (units ( unknown) date) (1.6-2.3) mg/dL unknown) (unknown) (no (unknown) (unknown) Magnesium Stat (units (unknown) date) unknown) (unknown) (no (unknown) (unknown) Mediastinum:? (units ( unknown) date) Mediastinal unknown) contours are unchanged, with enlargement of the (unknown) (no (unknown) (unknown) Medical Decision (units (unknown) date) Making unknown) (unknown) (no (unknown) (unknown) Medical History (units (unknown) date) (Reviewed 03/24/22 unknown) @ 12:05 by Hay Au MD) (unknown) (no (unknown) (unknown) Medication (units (unk nown) date) Instructions unknown) Recorded Confirmed (unknown) (no (unknown) (unknown) Medication (units (unk nown) date) Instructions unknown) Recorded (unknown) (no (unknown) (unknown) Mode of arrival: (units (unknown) date) Wheelchair unknown) (unknown) (no (unknown) (unknown) Mobile # (Auto) (units ( unknown) date) (0-900) /uL unknown) (unknown) (no (unknown) (unknown) Mobile # (Auto) 700 (units (unknown) date) (0-900) /uL unknown) (unknown) (no (unknown) (unknown) Mobile % (Auto) (units ( unknown) date) (3-14) % unknown) (unknown) (no (unknown) (unknown) Mobile % (Auto) 7.7 (units (unknown) date) (3-14) % unknown) (unknown) (no (unknown) (unknown) Neut # (Auto) (units ( unknown) date) (9113-8658) /uL unknown) (unknown) (no (unknown) (unknown) Neut # (Auto) 6800 (units (unknown) date) (3871-3119) /uL unknown) (unknown) (no (unknown) (unknown) Neut % (Auto) (units ( unknown) date) (50-75) % unknown) (unknown) (no (unknown) (unknown) Neut % (Auto) 72.2 (units (unknown) date) (50-75) % unknown) (unknown) (no (unknown) (unknown) No Action (units (unkn own) date) unknown) (unknown) (no (unknown) (unknown) No pertinent past (units (unknown) date) surgical history unknown) (unknown) (no (unknown) (unknown) No significant (units (unknown) date) ischemic changes unknown) (unknown) (no (unknown) (unknown) Ordered: (units (unkno wn) date) unknown) (unknown) (no (unknown) (unknown) Orders (units (unkno wn) date) unknown) (unknown) (no (unknown) (unknown) Over the last 24 (units (unknown) date) hours she is had unknown) chills and significantly increased fatigue. (unknown) (no (unknown) (unknown) Oxygen Delivery (units (unknown) date) Method 05/09/22 unknown) 21:41 (unknown) (no (unknown) (unknown) Oxygen Delivery (units (unknown) date) Method Room Air unknown) (unknown) (no (unknown) (unknown) Oxygen Delivery (units (unknown) date) Method unknown) (unknown) (no (unknown) (unknown) PT (10.1-12.7) (units (unknown) date) SECONDS unknown) (unknown) (no (unknown) (unknown) PT 13.5 H (units (unkn own) date) (10.1-12.7) SECONDS unknown) (unknown) (no (unknown) (unknown) Partial (units (unkno wn) date) Thromboplastin Time unknown) Stat (unknown) (no (unknown) (unknown) Patient History (units (unknown) date) unknown) (unknown) (no (unknown) (unknown) Patient: (units (unkno wn) date) [place] unknown) MR#: [id number] (unknown) (no (unknown) (unknown) Plt Count (units (unkn own) date) (150-400) X103/uL unknown) (unknown) (no (unknown) (unknown) Plt Count 328 (units ( unknown) date) (150-400) X103/uL unknown) (unknown) (no (unknown) (unknown) Potassium (units (unkn own) date) (3.4-5.1) mmol/L unknown) (unknown) (no (unknown) (unknown) Potassium 4.4 (units ( unknown) date) (3.4-5.1) mmol/L unknown) (unknown) (no (unknown) (unknown) Prescriptions: (units (unknown) date) unknown) (unknown) (no (unknown) (unknown) Previous Rx's (units ( unknown) date) unknown) (unknown) (no (unknown) (unknown) Prothrombin Time (units (unknown) date) INR Stat unknown) (unknown) (no (unknown) (unknown) Pulse Oximetry 100 (units (unknown) date) 05/09/22 21:41 unknown) (unknown) (no (unknown) (unknown) Pulse Oximetry 100 (units (unknown) date) unknown) (unknown) (no (unknown) (unknown) Pulse Oximetry 98 (units (unknown) date) unknown) (unknown) (no (unknown) (unknown) Pulse Oximetry 99 (units (unknown) date) 98 97 unknown) (unknown) (no (unknown) (unknown) Pulse Rate 41 L (units (unknown) date) unknown) (unknown) (no (unknown) (unknown) Pulse Rate 42 L 43 (units (unknown) date) L 43 L unknown) (unknown) (no (unknown) (unknown) Pulse Rate 44 L (units (unknown) date) 05/09/22 21:41 unknown) (unknown) (no (unknown) (unknown) Pulse Rate 44 L 43 (units (unknown) date) L unknown) (unknown) (no (unknown) (unknown) QTC elongated at (units (unknown) date) 494 milliseconds unknown) (unknown) (no (unknown) (unknown) RBC (4.0-5.2) (units ( unknown) date) X106/uL unknown) (unknown) (no (unknown) (unknown) RBC 5.06 (4.0-5.2) (units (unknown) date) X106/uL unknown) (unknown) (no (unknown) (unknown) RDW (11.6-14.8) % (units (unknown) date) unknown) (unknown) (no (unknown) (unknown) RDW 15.0 H (units (unk nown) date) (11.6-14.8) % unknown) (unknown) (no (unknown) (unknown) Radiologist's (units ( unknown) date) Impression: unknown) (unknown) (no (unknown) (unknown) Referrals: (units (unk nown) date) unknown) (unknown) (no (unknown) (unknown) Related Data (units (u nknown) date) unknown) (unknown) (no (unknown) (unknown) Respiratory Rate (units (unknown) date) 18 05/09/22 21:41 unknown) (unknown) (no (unknown) (unknown) Respiratory Rate (units (unknown) date) 18 44 H unknown) (unknown) (no (unknown) (unknown) Respiratory Rate (units (unknown) date) 22 unknown) (unknown) (no (unknown) (unknown) Respiratory Rate (units (unknown) date) 43 H 12 14 unknown) (unknown) (no (unknown) (unknown) Restrictive lung (units (unknown) date) disease unknown) (unknown) (no (unknown) (unknown) Rx Instructions: (units (unknown) date) unknown) (unknown) (no (unknown) (unknown) SARS-CoV-2 (PCR) (units (unknown) date) (Negative) unknown) (unknown) (no (unknown) (unknown) SARS-CoV-2 (PCR) (units (unknown) date) Negative (Negative) unknown) (unknown) (no (unknown) (unknown) She was discharged (units (unknown) date) home after TX with unknown) metoprolol and complains of low energy (unknown) (no (unknown) (unknown) Signed By: (units (unk nown) date) unknown) (unknown) (no (unknown) (unknown) Sinus bradycardia (units (unknown) date) at a rate of 44 unknown) (unknown) (no (unknown) (unknown) Smoking Status: (units (unknown) date) Former smoker unknown) (unknown) (no (unknown) (unknown) Social History (units (unknown) date) (Reviewed 03/23/22 unknown) @ 16:07 by Liam Colón MD) (unknown) (no (unknown) (unknown) Sodium (137-145) (units (unknown) date) mmol/L unknown) (unknown) (no (unknown) (unknown) Sodium 135 L (units (u nknown) date) (137-145) mmol/L unknown) (unknown) (no (unknown) (unknown) Source: patient (units (unknown) date) unknown) (unknown) (no (unknown) (unknown) Stated complaint: (units (unknown) date) heart is unknown) fluctuating, uncontrolled temperature (unknown) (no (unknown) (unknown) Stop: 05/09/22 (units (unknown) date) 22:05 unknown) (unknown) (no (unknown) (unknown) 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 unknown) None.? (unknown) (no (unknown) (unknown) Takes 1 to 2 (units (u nknown) date) tablets every 6 unknown) hours (unknown) (no (unknown) (unknown) Takes 1/2 tab of (units (unknown) date) the 100mg in the AM unknown) (unknown) (no (unknown) (unknown) Takes 2 tablets (units (unknown) date) daily unknown) (unknown) (no (unknown) (unknown) Temperature 98 F (units (unknown) date) 05/09/22 21:41 unknown) (unknown) (no (unknown) (unknown) Temperature 98 F (units (unknown) date) unknown) (unknown) (no (unknown) (unknown) Temperature (units (un known) date) unknown) (unknown) (no (unknown) (unknown) Time Seen by (units (u nknown) date) Provider: 05/09/22 unknown) 23:53 (unknown) (no (unknown) (unknown) Total Bilirubin (units (unknown) date) (0.2-1.3) mg/dL unknown) (unknown) (no (unknown) (unknown) Total Bilirubin (units (unknown) date) 0.8 (0.2-1.3) mg/dL unknown) (unknown) (no (unknown) (unknown) Total Creatine (units (unknown) date) Kinase (30-135) U/L unknown) (unknown) (no (unknown) (unknown) Total Creatine (units (unknown) date) Kinase 44 (30-135) unknown) U/L (unknown) (no (unknown) (unknown) Total Protein (units ( unknown) date) (6.3-8.2) g/dL unknown) (unknown) (no (unknown) (unknown) Total Protein 7.7 (units (unknown) date) (6.3-8.2) g/dL unknown) (unknown) (no (unknown) (unknown) Troponin + CK (units ( unknown) date) Cardiac Panel Stat unknown) (unknown) (no (unknown) (unknown) Troponin I (units (unk nown) date) (0.01-0.034) ng/mL unknown) (unknown) (no (unknown) (unknown) Troponin I 0.018 (units (unknown) date) (0.01-0.034) ng/mL unknown) (unknown) (no (unknown) (unknown) Vital Signs - 8 hr (units (unknown) date) unknown) (unknown) (no (unknown) (unknown) Vital Signs (units (un known) date) unknown) (unknown) (no (unknown) (unknown) Vital signs: (units (u nknown) date) unknown) (unknown) (no (unknown) (unknown) WBC (4.5-11.0) (units (unknown) date) X103/uL unknown) (unknown) (no (unknown) (unknown) WBC 9.4 (4.5-11.0) (units (unknown) date) X103/uL unknown) (unknown) (no (unknown) (unknown) XR chest 1V Stat (units (unknown) date) unknown) (unknown) (no (unknown) (unknown) [Embedded Image (units (unknown) date) Not Available] unknown) (unknown) (no (unknown) (unknown) [From Septra] (units ( unknown) date) unknown) (unknown) (no (unknown) (unknown) adhesive tape (units ( unknown) date) AdvReac Verified unknown) 05/09/22 21:46 (unknown) (no (unknown) (unknown) alcohol intake (units (unknown) date) frequency: 0-2 unknown) drinks per day (unknown) (no (unknown) (unknown) alcohol intake: (units (unknown) date) current unknown) (unknown) (no (unknown) (unknown) aortic contour (units (unknown) date) consistent with an unknown) ascending aortic aneurysm seen on the prior (unknown) (no (unknown) (unknown) appear (units (unkno wn) date) unknown) (unknown) (no (unknown) (unknown) ascending (units (unkn own) date) unknown) (unknown) (no (unknown) (unknown) cholecalciferol (units (unknown) date) (vitamin D3) 50 50 unknown) mcg PO DAILY 03/25/22 03/25/22 (unknown) (no (unknown) (unknown) cholecalciferol (units (unknown) date) (vitamin D3) 50 mcg unknown) (2,000 unit) Tablet (unknown) (no (unknown) (unknown) diazepam 10 mg (units (unknown) date) tablet (Valium) 10 unknown) mg PO BEDTIME 03/25/22 03/25/22 (unknown) (no (unknown) (unknown) diazepam [Valium] (units (unknown) date) 10 mg Tablet unknown) (unknown) (no (unknown) (unknown) fentanyl 75 mcg/hr (units (unknown) date) patch 72 hour unknown) (unknown) (no (unknown) (unknown) fentanyl 75 mcg/hr (units (unknown) date) transdermal 75 mcg unknown) transdermal 3XD pain 03/23/22 03/23/22 (unknown) (no (unknown) (unknown) 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 (unknown) (no (unknown) (unknown) fluoxetine 40 mg (units (unknown) date) capsule (Prozac) 40 unknown) mg PO DAILY ##0 11/29/12 03/25/22 (unknown) (no (unknown) (unknown) fluoxetine (units (unk nown) date) [Prozac] 40 MG unknown) capsule (unknown) (no (unknown) (unknown) household members: (units (unknown) date) significant other unknown) (unknown) (no (unknown) (unknown) lamotrigine 100 mg (units (unknown) date) tablet 100 mg PO unknown) BEDTIME 03/25/22 03/25/22 (unknown) (no (unknown) (unknown) lamotrigine 100 mg (units (unknown) date) tablet 50 mg PO unknown) DAILY 03/25/22 03/25/22 (unknown) (no (unknown) (unknown) lamotrigine (units (un known) date) [Lamictal] 100 mg unknown) Tablet (unknown) (no (unknown) (unknown) last patch applied (units (unknown) date) 03/22 on left wrist unknown) (unknown) (no (unknown) (unknown) levothyroxine 75 (units (unknown) date) mcg Tablet unknown) (unknown) (no (unknown) (unknown) levothyroxine 75 (units (unknown) date) mcg tablet 75 mcg unknown) PO DAILY 03/25/22 03/25/22 (unknown) (no (unknown) (unknown) mcg (2,000 unit) (units (unknown) date) tablet unknown) (unknown) (no (unknown) (unknown) metoprolol (units (unk nown) date) tartrate 50 mg unknown) Tablet (unknown) (no (unknown) (unknown) metoprolol (units (unk nown) date) tartrate 50 mg unknown) tablet 50 mg PO BID 03/25/22 03/25/22 (unknown) (no (unknown) (unknown) mg tablet (units (unkn own) date) (Percocet) 4-6) unknown) (unknown) (no (unknown) (unknown) oxycodone 5 mg (units (unknown) date) Tablet unknown) (unknown) (no (unknown) (unknown) oxycodone 5 mg (units (unknown) date) tablet 5 mg PO Q4HR unknown) PRN Pain, Moderate 03/28/22 (unknown) (no (unknown) (unknown) oxycodone-acetamin (units (unknown) date) ophen 5 mg-325 1 unknown) tab PO Q6H PRN Pain (Scale Score 03/25/22 (unknown) (no (unknown) (unknown) oxycodone-acetamin (units (unknown) date) ophen [Percocet] unknown) 5-325 mg Tablet (unknown) (no (unknown) (unknown) patch (units (unkno wn) date) unknown) (unknown) (no (unknown) (unknown) reportedly has (units (unknown) date) ?too bad valves and unknown) an aortic aneurysm that they are watching?. (unknown) (no (unknown) (unknown) size is enlarged. (units (unknown) date) unknown) (unknown) (no (unknown) (unknown) subsequent hip (units (unknown) date) surgery. Followed unknown) by Cardiology at [facility]. She (unknown) (no (unknown) (unknown) substance use (units ( unknown) date) type: does not use unknown) (unknown) (no (unknown) (unknown) sulfamethoxazole (units (unknown) date) Allergy Verified unknown) 05/09/22 21:46 (unknown) (no (unknown) (unknown) trimethoprim [From (units (unknown) date) Septra] Allergy unknown) Verified 05/09/22 21:46 (unknown) (no (unknown) (unknown) unremarkable.? (units (unknown) date) unknown) (unknown) (no (unknown) (unknown) vitamin B complex (units (unknown) date) 1 tab PO DAILY unknown) 03/25/22 03/25/22 (unknown) (no (unknown) (unknown) vitamin B complex (units (unknown) date) Tablet unknown) (unknown) (no (unknown) (unknown) vitamin E 400 unit (units (unknown) date) Tablet unknown) (unknown) (no (unknown) (unknown) vitamin E 400 unit (units (unknown) date) tablet 1 unit PO unknown) DAILY 03/25/22 03/25/22 (unknown) (no (unknown) (unknown) with exertional (units (unknown) date) angina/shortness of unknown) breath that resolves with nitroglycerin. Result panel 230 (unknown) (no (unknown) (unknown) (no value) (units (unk nown) date) unknown) (unknown) (no (unknown) (unknown) (4-6) #30 tabs (units (unknown) date) unknown) (unknown) (no (unknown) (unknown) (Lamictal) (units (unk nown) date) unknown) (unknown) (no (unknown) (unknown) 05/09/22 05/09/22 (units (unknown) date) 05/09/22 unknown) Range/Units (unknown) (no (unknown) (unknown) 05/09/22 21:59 (units (unknown) date) unknown) (unknown) (no (unknown) (unknown) 05/09/22 22:04 (units (unknown) date) unknown) (unknown) (no (unknown) (unknown) 05/09/22 22:05 (units (unknown) date) unknown) (unknown) (no (unknown) (unknown) 05/09/22 (units (unkno wn) date) Range/Units unknown) (unknown) (no (unknown) (unknown) 05/09/22 (units (unkno wn) date) unknown) (unknown) (no (unknown) (unknown) [id number] (units (unkno wn) date) unknown) (unknown) (no (unknown) (unknown) 1 tab PO DAILY (units (unknown) date) unknown) (unknown) (no (unknown) (unknown) 1 tab PO Q6H PRN (units (unknown) date) (Reason: Pain unknown) (Scale Score 4-6)) (unknown) (no (unknown) (unknown) 1 unit PO DAILY (units (unknown) date) unknown) (unknown) (no (unknown) (unknown) 1. No acute (units (un known) date) cardiopulmonary unknown) disease. (unknown) (no (unknown) (unknown) 10 mg PO BEDTIME (units (unknown) date) unknown) (unknown) (no (unknown) (unknown) 100 mg PO BEDTIME (units (unknown) date) unknown) (unknown) (no (unknown) (unknown) 03/25/22 (units (unkno wn) date) unknown) (unknown) (no (unknown) (unknown) 2. Aneurysmal (units ( unknown) date) dilatation of the unknown) ascending thoracic aorta redemonstrated.? (unknown) (no (unknown) (unknown) 21:41 05/09/22 (units (unknown) date) unknown) (unknown) (no (unknown) (unknown) 21:59 21:59 21:59 (units (unknown) date) unknown) (unknown) (no (unknown) (unknown) 22:00 05/09/22 (units (unknown) date) unknown) (unknown) (no (unknown) (unknown) 22:01 05/09/22 (units (unknown) date) unknown) (unknown) (no (unknown) (unknown) 22:01 (units (unkno wn) date) unknown) (unknown) (no (unknown) (unknown) 22:05 (units (unkno wn) date) unknown) (unknown) (no (unknown) (unknown) 22:30 05/09/22 (units (unknown) date) unknown) (unknown) (no (unknown) (unknown) 22:31 05/09/22 (units (unknown) date) unknown) (unknown) (no (unknown) (unknown) 22:31 (units (unkno wn) date) unknown) (unknown) (no (unknown) (unknown) 23:00 05/09/22 (units (unknown) date) unknown) (unknown) (no (unknown) (unknown) 23:00 (units (unkno wn) date) unknown) (unknown) (no [...] (unknown) date) unknown) (unknown) (no (unknown) (unknown) 72-year-old woman (units (unknown) date) with a history of unknown) epilepsy, fibromyalgia, idiopathic pulmonary (unknown) (no (unknown) (unknown) 75 mcg PO DAILY (units (unknown) date) unknown) (unknown) (no (unknown) (unknown) 75 mcg transdermal (units (unknown) date) 3XD unknown) (unknown) (no (unknown) (unknown) ? (units (unkno wn) date) unknown) (unknown) (no (unknown) (unknown) ALT (<35) IU/L (units (unknown) date) unknown) (unknown) (no (unknown) (unknown) ALT 17 (<35) IU/L (units (unknown) date) unknown) (unknown) (no (unknown) (unknown) APTT (26-36) (units (u nknown) date) SECONDS unknown) (unknown) (no (unknown) (unknown) APTT 50 H (26-36) (units (unknown) date) SECONDS unknown) (unknown) (no (unknown) (unknown) AST (14-36) IU/L (units (unknown) date) unknown) (unknown) (no (unknown) (unknown) AST 26 (14-36) (units (unknown) date) IU/L unknown) (unknown) (no (unknown) (unknown) Abdomen: Soft, (units (unknown) date) nontender, good unknown) bowel tones, no flank pain (unknown) (no (unknown) (unknown) Age/Sex: 72 / F (units (unknown) date) unknown) (unknown) (no (unknown) (unknown) Albumin (3.5-5.0) (units (unknown) date) g/dL unknown) (unknown) (no (unknown) (unknown) Albumin 4.4 (units (un known) date) (3.5-5.0) g/dL unknown) (unknown) (no (unknown) (unknown) Albumin/Globulin (units (unknown) date) Ratio (1.0-2.8) unknown) (unknown) (no (unknown) (unknown) Albumin/Globulin (units (unknown) date) Ratio 1.3 (1.0-2.8) unknown) (unknown) (no (unknown) (unknown) Alkaline (units (unkno wn) date) Phosphatase unknown) (38-126) U/L (unknown) (no (unknown) (unknown) Alkaline (units (unkno wn) date) Phosphatase 109 unknown) (38-126) U/L (unknown) (no (unknown) (unknown) Allergies (units (unkn own) date) unknown) (unknown) (no (unknown) (unknown) Allergy/AdvReac (units (unknown) date) Type Severity unknown) Reaction Status Date / Time (unknown) (no (unknown) (unknown) Aspirin (Aspirin (units (unknown) date) 81 Mg Chew Tab) 324 unknown) mg PO NOW ONE (unknown) (no (unknown) (unknown) BUN (7-17) mg/dL (units (unknown) date) unknown) (unknown) (no (unknown) (unknown) BUN 27 H (7-17) (units (unknown) date) mg/dL unknown) (unknown) (no (unknown) (unknown) BUN/Creatinine (units (unknown) date) Ratio (6-22) unknown) (unknown) (no (unknown) (unknown) BUN/Creatinine (units (unknown) date) Ratio 31.0 H (6-22) unknown) (unknown) (no (unknown) (unknown) Baso # (Auto) (units ( unknown) date) (0-100) /uL unknown) (unknown) (no (unknown) (unknown) Baso # (Auto) 100 (units (unknown) date) (0-100) /uL unknown) (unknown) (no (unknown) (unknown) Baso % (Auto) (units ( unknown) date) (0-2) % unknown) (unknown) (no (unknown) (unknown) Baso % (Auto) 0.9 (units (unknown) date) (0-2) % unknown) (unknown) (no (unknown) (unknown) Blood Pressure (units (unknown) date) 114/49 L 115/52 L unknown) (unknown) (no (unknown) (unknown) Blood Pressure (units (unknown) date) 123/51 L 05/09/22 unknown) 21:41 (unknown) (no (unknown) (unknown) Blood Pressure (units (unknown) date) 123/51 L 129/56 L unknown) (unknown) (no (unknown) (unknown) Blood Pressure (units (unknown) date) unknown) (unknown) (no (unknown) (unknown) Bones and chest (units (unknown) date) wall:? No unknown) suspicious bony lesions.? Overlying soft tissues (unknown) (no (unknown) (unknown) Bradycardia, (units (u nknown) date) Fatigue, Exertional unknown) angina, Chronic idiopathic pulmonary fibrosis (unknown) (no (unknown) (unknown) CBC is (units (unkno wn) date) unremarkable unknown) without signs of leukocytosis or significant anemia (unknown) (no (unknown) (unknown) CC: Increased (units ( unknown) date) fatigue and slow unknown) heart rate (unknown) (no (unknown) (unknown) CK-MB (CK-2) Rel (units (unknown) date) Index TNP unknown) (unknown) (no (unknown) (unknown) CK-MB (CK-2) Rel (units (unknown) date) Index unknown) (unknown) (no (unknown) (unknown) CK-MB (CK-2) TNP (units (unknown) date) unknown) (unknown) (no (unknown) (unknown) CK-MB (CK-2) (units (u nknown) date) unknown) (unknown) (no (unknown) (unknown) COVID19 -Nasal (units (unknown) date) RAPID/Pre-Proc Stat unknown) (unknown) (no (unknown) (unknown) CT.? Heart (units (unk nown) date) unknown) (unknown) (no (unknown) (unknown) Calcium (8.4-10.2) (units (unknown) date) mg/dL unknown) (unknown) (no (unknown) (unknown) Calcium 9.4 (units (un known) date) (8.4-10.2) mg/dL unknown) (unknown) (no (unknown) (unknown) Carbon Dioxide (units (unknown) date) (22-32) mmol/L unknown) (unknown) (no (unknown) (unknown) Carbon Dioxide 27 (units (unknown) date) (22-32) mmol/L unknown) (unknown) (no (unknown) (unknown) Cardiac: (units (unkno wn) date) Bradycardic with unknown) 3/6 systolic murmur and 2/6 diastolic murmur (unknown) (no (unknown) (unknown) Chemistries are (units (unknown) date) unremarkable with unknown) normal renal function (unknown) (no (unknown) (unknown) Chest x-ray does (units (unknown) date) not show overt unknown) heart failure, aortic and reason is again (unknown) (no (unknown) (unknown) Chest x-ray: (units (u nknown) date) unknown) (unknown) (no (unknown) (unknown) Chief complaint: (units (unknown) date) Weakness unknown) (unknown) (no (unknown) (unknown) Chloride (98-107) (units (unknown) date) mmol/L unknown) (unknown) (no (unknown) (unknown) Chloride 97 L (units ( unknown) date) (98-107) mmol/L unknown) (unknown) (no (unknown) (unknown) Clinical (units (unkno wn) date) Impression: unknown) (unknown) (no (unknown) (unknown) Complete Blood (units (unknown) date) Count AUTO DIFF unknown) Stat (unknown) (no (unknown) (unknown) Complicating (units (u nknown) date) co-morbidities: unknown) Recent NSTEMI, hip fracture, addition of (unknown) (no (unknown) (unknown) Comprehensive (units ( unknown) date) Metabolic Panel unknown) Stat (unknown) (no (unknown) (unknown) Consultations: (units (unknown) date) unknown) (unknown) (no (unknown) (unknown) Corroborating (units ( unknown) date) data: unknown) (unknown) (no (unknown) (unknown) Course (units (unkno wn) date) unknown) (unknown) (no (unknown) (unknown) Creatinine (units (unk nown) date) (0.52-1.04) mg/dL unknown) (unknown) (no (unknown) (unknown) Creatinine 0.87 (units (unknown) date) (0.52-1.04) mg/dL unknown) (unknown) (no (unknown) (unknown) : 1950 (units (unknown) date) Acct:[id number] unknown) (unknown) (no (unknown) (unknown) Data collected (units (unknown) date) from: patient, unknown) (unknown) (no (unknown) (unknown) Date of Service: (units (unknown) date) 05/09/22 unknown) (unknown) (no (unknown) (unknown) Departure (units (unkn own) date) unknown) (unknown) (no (unknown) (unknown) Dictated by: (units (u nknown) date) Ray Harris, unknown) [place] on 05/09/2022 at 23:08 ? ? 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, (unknown) (no (unknown) (unknown) Discharge Plan (units (unknown) date) unknown) (unknown) (no (unknown) (unknown) Discontinued (units (u nknown) date) Medications unknown) (unknown) (no (unknown) (unknown) Discussion: (units (un known) date) unknown) (unknown) (no (unknown) (unknown) Disposition: see (units (unknown) date) below, along with unknown) detailed discharge instructions that have (unknown) (no (unknown) (unknown) ECG Data (units (unkno wn) date) unknown) (unknown) (no (unknown) (unknown) ED Orders (units (unkn own) date) unknown) (unknown) (no (unknown) (unknown) EKG-12 Lead Stat (units (unknown) date) unknown) (unknown) (no (unknown) (unknown) ER Physician: (units ( unknown) date) Joanna Monaco MD unknown) (unknown) (no (unknown) (unknown) Emergency Report (units (unknown) date) unknown) (unknown) (no (unknown) (unknown) Eos # (Auto) (units (u nknown) date) (0-450) /uL unknown) (unknown) (no (unknown) (unknown) Eos # (Auto) 100 (units (unknown) date) (0-450) /uL unknown) (unknown) (no (unknown) (unknown) Eos % (Auto) (2-4) (units (unknown) date) % unknown) (unknown) (no (unknown) (unknown) Eos % (Auto) 1.0 L (units (unknown) date) (2-4) % unknown) (unknown) (no (unknown) (unknown) Estimated GFR > 60 (units (unknown) date) (>60) mL/min unknown) (unknown) (no (unknown) (unknown) Estimated GFR (units ( unknown) date) (>60) mL/min unknown) (unknown) (no (unknown) (unknown) Exam documented (units (unknown) date) above, pertinent unknown) findings include: Bradycardia with noted heart (unknown) (no (unknown) (unknown) Exam (units (unkno wn) date) unknown) (unknown) (no (unknown) (unknown) Extremities: No (units (unknown) date) trauma, well unknown) perfused, no lower extremity edema (unknown) (no (unknown) (unknown) FINDINGS:? (units (unk nown) date) unknown) (unknown) (no (unknown) (unknown) Fibromyalgia (units (u nknown) date) unknown) (unknown) (no (unknown) (unknown) Followed by (units (un known) date) Cardiology at unknown) Yudith Gonzalez. She reportedly has ?too bad (unknown) (no (unknown) (unknown) Full and (units (unkno wn) date) symmetrical air unknown) movement (unknown) (no (unknown) (unknown) General (units (unkno wn) date) unknown) (unknown) (no (unknown) (unknown) General: Frail (units (unknown) date) chronically unknown) ill-appearing but in no acute distress. Able to (unknown) (no (unknown) (unknown) Globulin (1.7-4.1) (units (unknown) date) g/dL unknown) (unknown) (no (unknown) (unknown) Globulin 3.3 (units (u nknown) date) (1.7-4.1) g/dL unknown) (unknown) (no (unknown) (unknown) Glucose (80-110) (units (unknown) date) mg/dL unknown) (unknown) (no (unknown) (unknown) Glucose 103 (units (un known) date) (80-110) mg/dL unknown) (unknown) (no (unknown) (unknown) HEENT: Moist (units (u nknown) date) mucous membranes, unknown) normal sclera with reactive pupils, (unknown) (no (unknown) (unknown) HPI - General (units ( unknown) date) Adult unknown) (unknown) (no (unknown) (unknown) HPI narrative: (units (unknown) date) unknown) (unknown) (no (unknown) (unknown) Hct (36-46) % (units ( unknown) date) unknown) (unknown) (no (unknown) (unknown) Hct 42.9 (36-46) % (units (unknown) date) unknown) (unknown) (no (unknown) (unknown) Hgb (12.0-16.0) (units (unknown) date) g/dL unknown) (unknown) (no (unknown) (unknown) Hgb 14.2 (units (unkno wn) date) (12.0-16.0) g/dL unknown) (unknown) (no (unknown) (unknown) History of Present (units (unknown) date) Illness unknown) (unknown) (no (unknown) (unknown) Home Medications (units (unknown) date) unknown) (unknown) (no (unknown) (unknown) Hypertension (units (u nknown) date) unknown) (unknown) (no (unknown) (unknown) Hypothyroidism (units (unknown) date) unknown) (unknown) (no (unknown) (unknown) IMPRESSION:? (units (u nknown) date) unknown) (unknown) (no (unknown) (unknown) INR (0.9-1.3) (units ( unknown) date) unknown) (unknown) (no (unknown) (unknown) INR 1.2 (0.9-1.3) (units (unknown) date) unknown) (unknown) (no (unknown) (unknown) Imaging Data (units (u nknown) date) unknown) (unknown) (no (unknown) (unknown) Imaging studies (units (unknown) date) independently unknown) reviewed: (unknown) (no (unknown) (unknown) Independently (units ( unknown) date) reviewed EKG as unknown) above (unknown) (no (unknown) (unknown) Initial Vital (units ( unknown) date) Signs unknown) (unknown) (no (unknown) (unknown) Initial Vital (units ( unknown) date) Signs: unknown) (unknown) (no (unknown) (unknown) Initial troponin (units (unknown) date) is 0.018 unknown) (unknown) (no (unknown) (unknown) Interpretation: (units (unknown) date) unknown) (unknown) (no (unknown) (unknown) [facility] (units (unknown) date) [address] unknown) [place] [address] (unknown) (no (unknown) (unknown) LVH with (units (unkno wn) date) repolarization unknown) abnormalities (unknown) (no (unknown) (unknown) Lab Data (units (unkno wn) date) unknown) (unknown) (no (unknown) (unknown) Lab Results (units (un known) date) unknown) (unknown) (no (unknown) (unknown) Lab Test results (units (unknown) date) independently unknown) reviewed as above. Pertinent findings: (unknown) (no (unknown) (unknown) Labs: (units (unkno wn) date) unknown) (unknown) (no (unknown) (unknown) Lipase (23-300) (units (unknown) date) U/L unknown) (unknown) (no (unknown) (unknown) Lipase 152 (units (unk nown) date) (23-300) U/L unknown) (unknown) (no (unknown) (unknown) Lipase Stat (units (un known) date) unknown) (unknown) (no (unknown) (unknown) Lungs and pleura:? (units (unknown) date) Lungs are clear.? unknown) No pleural effusions or pneumothorax.? (unknown) (no (unknown) (unknown) Darrell Cottrell, (units (unknown) date) [Primary Care unknown) Provider] (unknown) (no (unknown) (unknown) Lymph # (Auto) (units (unknown) date) (7343-8629) /uL unknown) (unknown) (no (unknown) (unknown) Lymph # (Auto) (units (unknown) date) 1700 (1323-6931) unknown) /uL (unknown) (no (unknown) (unknown) Lymph % (Auto) (units (unknown) date) (25-40) % unknown) (unknown) (no (unknown) (unknown) Lymph % (Auto) (units (unknown) date) 18.2 L (25-40) % unknown) (unknown) (no (unknown) (unknown) MCH (26-34) PG (units (unknown) date) unknown) (unknown) (no (unknown) (unknown) MCH 28.0 (26-34) (units (unknown) date) PG unknown) (unknown) (no (unknown) (unknown) MCHC (30-36) % (units (unknown) date) unknown) (unknown) (no (unknown) (unknown) MCHC 33.0 (30-36) (units (unknown) date) % unknown) (unknown) (no (unknown) (unknown) MCV (80-100) fL (units (unknown) date) unknown) (unknown) (no (unknown) (unknown) MCV 84.9 (80-100) (units (unknown) date) fL unknown) (unknown) (no (unknown) (unknown) MDM Narrative (units ( unknown) date) unknown) (unknown) (no (unknown) (unknown) Magnesium (units (unkn own) date) (1.6-2.3) mg/dL unknown) (unknown) (no (unknown) (unknown) Magnesium 1.9 (units ( unknown) date) (1.6-2.3) mg/dL unknown) (unknown) (no (unknown) (unknown) Magnesium Stat (units (unknown) date) unknown) (unknown) (no (unknown) (unknown) Mediastinum:? (units ( unknown) date) Mediastinal unknown) contours are unchanged, with enlargement of the (unknown) (no (unknown) (unknown) Medical Decision (units (unknown) date) Making unknown) (unknown) (no (unknown) (unknown) Medical History (units (unknown) date) (Updated 05/10/22 @ unknown) 00:19 by Joanna Monaco MD) (unknown) (no (unknown) (unknown) Medical decision (units (unknown) date) making narrative: unknown) (unknown) (no (unknown) (unknown) Medical records (units (unknown) date) reviewed: Hospital unknown) admission records reviewed as well as (unknown) (no (unknown) (unknown) Medication (units (unk nown) date) Instructions unknown) Recorded Confirmed (unknown) (no (unknown) (unknown) Medication (units (unk nown) date) Instructions unknown) Recorded (unknown) (no (unknown) (unknown) Mode of arrival: (units (unknown) date) Wheelchair unknown) (unknown) (no (unknown) (unknown) Mobile # (Auto) (units ( unknown) date) (0-900) /uL unknown) (unknown) (no (unknown) (unknown) Mobile # (Auto) 700 (units (unknown) date) (0-900) /uL unknown) (unknown) (no (unknown) (unknown) Mobile % (Auto) (units ( unknown) date) (3-14) % unknown) (unknown) (no (unknown) (unknown) Mobile % (Auto) 7.7 (units (unknown) date) (3-14) % unknown) (unknown) (no (unknown) (unknown) Myocardial (units (unk nown) date) infarction unknown) (unknown) (no (unknown) (unknown) Narrative: (units (unk nown) date) unknown) (unknown) (no (unknown) (unknown) Neck: No JVD, (units ( unknown) date) supple unknown) (unknown) (no (unknown) (unknown) Neurologic: (units (un known) date) Grossly unknown) neurologically intact with no obvious asymmetries or (unknown) (no (unknown) (unknown) Neut # (Auto) (units ( unknown) date) (3823-5077) /uL unknown) (unknown) (no (unknown) (unknown) Neut # (Auto) 6800 (units (unknown) date) (4450-1053) /uL unknown) (unknown) (no (unknown) (unknown) Neut % (Auto) (units ( unknown) date) (50-75) % unknown) (unknown) (no (unknown) (unknown) Neut % (Auto) 72.2 (units (unknown) date) (50-75) % unknown) (unknown) (no (unknown) (unknown) No Action (units (unkn own) date) unknown) (unknown) (no (unknown) (unknown) No significant (units (unknown) date) ischemic changes unknown) (unknown) (no (unknown) (unknown) Ordered: (units (unkno wn) date) unknown) (unknown) (no (unknown) (unknown) Orders (units (unkno wn) date) unknown) (unknown) (no (unknown) (unknown) Oxygen Delivery (units (unknown) date) Method 05/09/22 unknown) 21:41 (unknown) (no (unknown) (unknown) Oxygen Delivery (units (unknown) date) Method Room Air unknown) (unknown) (no (unknown) (unknown) Oxygen Delivery (units (unknown) date) Method unknown) (unknown) (no (unknown) (unknown) PT (10.1-12.7) (units (unknown) date) SECONDS unknown) (unknown) (no (unknown) (unknown) PT 13.5 H (units (unkn own) date) (10.1-12.7) SECONDS unknown) (unknown) (no (unknown) (unknown) Partial (units (unkno wn) date) Thromboplastin Time unknown) Stat (unknown) (no (unknown) (unknown) Patient History (units (unknown) date) unknown) (unknown) (no (unknown) (unknown) Patient: (units (unkno wn) date) [place] unknown) MR#: [id number] (unknown) (no (unknown) (unknown) Plt Count (units (unkn own) date) (150-400) X103/uL unknown) (unknown) (no (unknown) (unknown) Plt Count 328 (units ( unknown) date) (150-400) X103/uL unknown) (unknown) (no (unknown) (unknown) Potassium (units (unkn own) date) (3.4-5.1) mmol/L unknown) (unknown) (no (unknown) (unknown) Potassium 4.4 (units ( unknown) date) (3.4-5.1) mmol/L unknown) (unknown) (no (unknown) (unknown) Prescriptions: (units (unknown) date) unknown) (unknown) (no (unknown) (unknown) Previous Rx's (units ( unknown) date) unknown) (unknown) (no (unknown) (unknown) Prothrombin Time (units (unknown) date) INR Stat unknown) (unknown) (no (unknown) (unknown) Psych: (units (unkno wn) date) Cooperative, unknown) appropriate insight and affect (unknown) (no (unknown) (unknown) Pulse Oximetry 100 (units (unknown) date) 05/09/22 21:41 unknown) (unknown) (no (unknown) (unknown) Pulse Oximetry 100 (units (unknown) date) unknown) (unknown) (no (unknown) (unknown) Pulse Oximetry 98 (units (unknown) date) unknown) (unknown) (no (unknown) (unknown) Pulse Oximetry 99 (units (unknown) date) 98 97 unknown) (unknown) (no (unknown) (unknown) Pulse Rate 41 L (units (unknown) date) unknown) (unknown) (no (unknown) (unknown) Pulse Rate 42 L 43 (units (unknown) date) L 43 L unknown) (unknown) (no (unknown) (unknown) Pulse Rate 44 L (units (unknown) date) 05/09/22 21:41 unknown) (unknown) (no (unknown) (unknown) Pulse Rate 44 L 43 (units (unknown) date) L unknown) (unknown) (no (unknown) (unknown) QTC elongated at (units (unknown) date) 494 milliseconds unknown) (unknown) (no (unknown) (unknown) RBC (4.0-5.2) (units ( unknown) date) X106/uL unknown) (unknown) (no (unknown) (unknown) RBC 5.06 (4.0-5.2) (units (unknown) date) X106/uL unknown) (unknown) (no (unknown) (unknown) RDW (11.6-14.8) % (units (unknown) date) unknown) (unknown) (no (unknown) (unknown) RDW 15.0 H (units (unk nown) date) (11.6-14.8) % unknown) (unknown) (no (unknown) (unknown) Radiologist's (units ( unknown) date) Impression: unknown) (unknown) (no (unknown) (unknown) Re-evaluations: (units (unknown) date) unknown) (unknown) (no (unknown) (unknown) Referrals: (units (unk nown) date) unknown) (unknown) (no (unknown) (unknown) Related Data (units (u nknown) date) unknown) (unknown) (no (unknown) (unknown) Remainder of (units (u nknown) date) complete review of unknown) systems is otherwise unremarkable except for (unknown) (no (unknown) (unknown) Respiratory Rate (units (unknown) date) 18 05/09/22 21:41 unknown) (unknown) (no (unknown) (unknown) Respiratory Rate (units (unknown) date) 18 44 H unknown) (unknown) (no (unknown) (unknown) Respiratory Rate (units (unknown) date) 22 unknown) (unknown) (no (unknown) (unknown) Respiratory Rate (units (unknown) date) 43 H 12 14 unknown) (unknown) (no (unknown) (unknown) Respiratory: Lungs (units (unknown) date) are clear to unknown) auscultation, no wheezing no rales no rhonchi. (unknown) (no (unknown) (unknown) Restrictive lung (units (unknown) date) disease unknown) (unknown) (no (unknown) (unknown) Review of Systems (units (unknown) date) unknown) (unknown) (no (unknown) (unknown) Rx Instructions: (units (unknown) date) unknown) (unknown) (no (unknown) (unknown) SARS-CoV-2 (PCR) (units (unknown) date) (Negative) unknown) (unknown) (no (unknown) (unknown) SARS-CoV-2 (PCR) (units (unknown) date) Negative (Negative) unknown) (unknown) (no (unknown) (unknown) She has (units (unkno wn) date) dramatically unknown) limited her overall activity levels because of this. She (unknown) (no (unknown) (unknown) Signed By: (units (unk nown) date) unknown) (unknown) (no (unknown) (unknown) Sinus bradycardia (units (unknown) date) at a rate of 44 unknown) (unknown) (no (unknown) (unknown) Skin: Warm and (units (unknown) date) dry, no rashes unknown) (unknown) (no (unknown) (unknown) Smoking Status: (units (unknown) date) Former smoker unknown) (unknown) (no (unknown) (unknown) Social History (units (unknown) date) (Reviewed 03/23/22 unknown) @ 16:07 by Liam Colón MD) (unknown) (no (unknown) (unknown) Social (units (unkno wn) date) determinants of unknown) health that may influence the patients condition: (unknown) (no (unknown) (unknown) Sodium (137-145) (units (unknown) date) mmol/L unknown) (unknown) (no (unknown) (unknown) Sodium 135 L (units (u nknown) date) (137-145) mmol/L unknown) (unknown) (no (unknown) (unknown) Source: patient (units (unknown) date) unknown) (unknown) (no (unknown) (unknown) Stated complaint: (units (unknown) date) heart is unknown) fluctuating, uncontrolled temperature (unknown) (no (unknown) (unknown) Status post hip (units (unknown) date) surgery unknown) (unknown) (no (unknown) (unknown) Stop: 05/09/22 (units (unknown) date) 22:05 unknown) (unknown) (no (unknown) (unknown) 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 unknown) None.? (unknown) (no (unknown) (unknown) Takes 1 to 2 (units (u nknown) date) tablets every 6 unknown) hours (unknown) (no (unknown) (unknown) Takes 1/2 tab of (units (unknown) date) the 100mg in the AM unknown) (unknown) (no (unknown) (unknown) Takes 2 tablets (units (unknown) date) daily unknown) (unknown) (no (unknown) (unknown) Temperature 98 F (units (unknown) date) 05/09/22 21:41 unknown) (unknown) (no (unknown) (unknown) Temperature 98 F (units (unknown) date) unknown) (unknown) (no (unknown) (unknown) Temperature (units (un known) date) unknown) (unknown) (no (unknown) (unknown) Time Seen by (units (u nknown) date) Provider: 05/09/22 unknown) 23:53 (unknown) (no (unknown) (unknown) Total Bilirubin (units (unknown) date) (0.2-1.3) mg/dL unknown) (unknown) (no (unknown) (unknown) Total Bilirubin (units (unknown) date) 0.8 (0.2-1.3) mg/dL unknown) (unknown) (no (unknown) (unknown) Total Creatine (units (unknown) date) Kinase (30-135) U/L unknown) (unknown) (no (unknown) (unknown) Total Creatine (units (unknown) date) Kinase 44 (30-135) unknown) U/L (unknown) (no (unknown) (unknown) Total Protein (units ( unknown) date) (6.3-8.2) g/dL unknown) (unknown) (no (unknown) (unknown) Total Protein 7.7 (units (unknown) date) (6.3-8.2) g/dL unknown) (unknown) (no (unknown) (unknown) Treatments: (units (un known) date) unknown) (unknown) (no (unknown) (unknown) Troponin + CK (units ( unknown) date) Cardiac Panel Stat unknown) (unknown) (no (unknown) (unknown) Troponin I (units (unk nown) date) (0.01-0.034) ng/mL unknown) (unknown) (no (unknown) (unknown) Troponin I 0.018 (units (unknown) date) (0.01-0.034) ng/mL unknown) (unknown) (no (unknown) (unknown) Unclear when last (units (unknown) date) TSH has been unknown) checked will add today. Will also add BNP. (unknown) (no (unknown) (unknown) Vital Signs - 8 hr (units (unknown) date) unknown) (unknown) (no (unknown) (unknown) Vital Signs (units (un known) date) unknown) (unknown) (no (unknown) (unknown) Vital signs: (units (u nknown) date) unknown) (unknown) (no (unknown) (unknown) WBC (4.5-11.0) (units (unknown) date) X103/uL unknown) (unknown) (no (unknown) (unknown) WBC 9.4 (4.5-11.0) (units (unknown) date) X103/uL unknown) (unknown) (no (unknown) (unknown) XR chest 1V Stat (units (unknown) date) unknown) (unknown) (no (unknown) (unknown) [Embedded Image (units (unknown) date) Not Available] unknown) (unknown) (no (unknown) (unknown) [From Septra] (units ( unknown) date) unknown) (unknown) (no (unknown) (unknown) abnormalities (units ( unknown) date) unknown) (unknown) (no (unknown) (unknown) additional (units (unk nown) date) outpatient follow unknown) up (unknown) (no (unknown) (unknown) adhesive tape (units ( unknown) date) AdvReac Verified unknown) 05/09/22 21:46 (unknown) (no (unknown) (unknown) after TX with (units ( unknown) date) metoprolol and unknown) complains of low energy with exertional (unknown) (no (unknown) (unknown) alcohol intake (units (unknown) date) frequency: 0-2 unknown) drinks per day (unknown) (no (unknown) (unknown) alcohol intake: (units (unknown) date) current unknown) (unknown) (no (unknown) (unknown) angina/shortness (units (unknown) date) of breath that unknown) resolves with nitroglycerin. Over the last 24 (unknown) (no (unknown) (unknown) aortic contour (units (unknown) date) consistent with an unknown) ascending aortic aneurysm seen on the prior (unknown) (no (unknown) (unknown) appear (units (unkno wn) date) unknown) (unknown) (no (unknown) (unknown) appreciated (units (un known) date) unknown) (unknown) (no (unknown) (unknown) ascending (units (unkn own) date) unknown) (unknown) (no (unknown) (unknown) been reviewed with (units (unknown) date) patient as well as unknown) indications for ED re-evaluation and (unknown) (no (unknown) (unknown) bnormalities after (units (unknown) date) multiple acute unknown) issues in the last 3 months, no evidence of (unknown) (no (unknown) (unknown) cholecalciferol (units (unknown) date) (vitamin D3) 50 50 unknown) mcg PO DAILY 03/25/22 03/25/22 (unknown) (no (unknown) (unknown) cholecalciferol (units (unknown) date) (vitamin D3) 50 mcg unknown) (2,000 unit) Tablet (unknown) (no (unknown) (unknown) diazepam 10 mg (units (unknown) date) tablet (Valium) 10 unknown) mg PO BEDTIME 03/25/22 03/25/22 (unknown) (no (unknown) (unknown) diazepam [Valium] (units (unknown) date) 10 mg Tablet unknown) (unknown) (no (unknown) (unknown) dissection, (units (un known) date) pneumothorax. unknown) Possibility of viral infection, bacterial infection (unknown) (no (unknown) (unknown) extremity edema, (units (unknown) date) headaches but unknown) overall general malaise and fatigue. (unknown) (no (unknown) (unknown) fentanyl 75 mcg/hr (units (unknown) date) patch 72 hour unknown) (unknown) (no (unknown) (unknown) fentanyl 75 mcg/hr (units (unknown) date) transdermal 75 mcg unknown) transdermal 3XD pain 03/23/22 03/23/22 (unknown) (no (unknown) (unknown) fibrosis, diabetes (units (unknown) date) with myocardial unknown) infarction in February of 2022 and then (unknown) (no (unknown) (unknown) fluoxetine 40 mg (units (unknown) date) capsule (Prozac) 40 unknown) mg PO DAILY ##0 11/29/12 03/25/22 (unknown) (no (unknown) (unknown) fluoxetine (units (unk nown) date) [Prozac] 40 MG unknown) capsule (unknown) (no (unknown) (unknown) for further (units (un known) date) evaluation. She unknown) reports no overt fevers, cough, orthopnea, lower (unknown) (no (unknown) (unknown) future. In the (units (unknown) date) meantime she unknown) complains that she can feel her heartbeat and it is (unknown) (no (unknown) (unknown) give a complete (units (unknown) date) and coherent unknown) history. Well-nourished well-developed (unknown) (no (unknown) (unknown) hours she is had (units (unknown) date) chills and unknown) significantly increased fatigue. She does note that (unknown) (no (unknown) (unknown) household members: (units (unknown) date) significant other unknown) (unknown) (no (unknown) (unknown) lamotrigine 100 mg (units (unknown) date) tablet 100 mg PO unknown) BEDTIME 03/25/22 03/25/22 (unknown) (no (unknown) (unknown) lamotrigine 100 mg (units (unknown) date) tablet 50 mg PO unknown) DAILY 03/25/22 03/25/22 (unknown) (no (unknown) (unknown) lamotrigine (units (un known) date) [Lamictal] 100 mg unknown) Tablet (unknown) (no (unknown) (unknown) last patch applied (units (unknown) date) 03/22 on left wrist unknown) (unknown) (no (unknown) (unknown) levothyroxine 75 (units (unknown) date) mcg Tablet unknown) (unknown) (no (unknown) (unknown) levothyroxine 75 (units (unknown) date) mcg tablet 75 mcg unknown) PO DAILY 03/25/22 03/25/22 (unknown) (no (unknown) (unknown) mcg (2,000 unit) (units (unknown) date) tablet unknown) (unknown) (no (unknown) (unknown) medication side (units (unknown) date) effects, worsening unknown) cardiac angina, severe anemia, thyroid a (unknown) (no (unknown) (unknown) metoprolol after (units (unknown) date) her NSTEMI, unknown) worsening exertional angina (unknown) (no (unknown) (unknown) metoprolol (units (unk nown) date) tartrate 50 mg unknown) Tablet (unknown) (no (unknown) (unknown) metoprolol (units (unk nown) date) tartrate 50 mg unknown) tablet 50 mg PO BID 03/25/22 03/25/22 (unknown) (no (unknown) (unknown) mg tablet (units (unkn own) date) (Percocet) 4-6) unknown) (unknown) (no (unknown) (unknown) murmurs, no (units (un known) date) significant unknown) evidence of volume overload clinically (unknown) (no (unknown) (unknown) nitroglycerin that (units (unknown) date) is getting more unknown) frequent and more intense with the episodes. (unknown) (no (unknown) (unknown) oxycodone 5 mg (units (unknown) date) Tablet unknown) (unknown) (no (unknown) (unknown) oxycodone 5 mg (units (unknown) date) tablet 5 mg PO Q4HR unknown) PRN Pain, Moderate 03/28/22 (unknown) (no (unknown) (unknown) oxycodone-acetamin (units (unknown) date) ophen 5 mg-325 1 unknown) tab PO Q6H PRN Pain (Scale Score 03/25/22 (unknown) (no (unknown) (unknown) oxycodone-acetamin (units (unknown) date) ophen [Percocet] unknown) 5-325 mg Tablet (unknown) (no (unknown) (unknown) patch (units (unkno wn) date) unknown) (unknown) (no (unknown) (unknown) [facility] (unknown) (no (unknown) (unknown) she is supposed to (units (unknown) date) be scheduled for a unknown) cardiac catheterization in the near (unknown) (no (unknown) (unknown) size is enlarged. (units (unknown) date) unknown) (unknown) (no (unknown) (unknown) subsequent hip (units (unknown) date) surgery after unknown) falling sustaining a hip fracture in March. (unknown) (no (unknown) (unknown) substance use (units ( unknown) date) type: does not use unknown) (unknown) (no (unknown) (unknown) sulfamethoxazole (units (unknown) date) Allergy Verified unknown) 05/09/22 21:46 (unknown) (no (unknown) (unknown) talked to her (units ( unknown) date) cardiology office unknown) earlier today and they recommended she come in (unknown) (no (unknown) (unknown) that included in (units (unknown) date) the HPI. unknown) (unknown) (no (unknown) (unknown) trimethoprim [From (units (unknown) date) Septra] Allergy unknown) Verified 05/09/22 21:46 (unknown) (no (unknown) (unknown) unremarkable.? (units (unknown) date) unknown) (unknown) (no (unknown) (unknown) valves and an (units ( unknown) date) aortic aneurysm unknown) that they are watching?. She was discharged home (unknown) (no (unknown) (unknown) very slow, that (units (unknown) date) she is having unknown) significant exertional angina that responds to (unknown) (no (unknown) (unknown) vitamin B complex (units (unknown) date) 1 tab PO DAILY unknown) 03/25/22 03/25/22 (unknown) (no (unknown) (unknown) vitamin B complex (units (unknown) date) Tablet unknown) (unknown) (no (unknown) (unknown) vitamin E 400 unit (units (unknown) date) Tablet unknown) (unknown) (no (unknown) (unknown) vitamin E 400 unit (units (unknown) date) tablet 1 unit PO unknown) DAILY 03/25/22 03/25/22 Result panel 231 (unknown) (no (unknown) (unknown) (no value) (units (unk nown) date) unknown) (unknown) (no (unknown) (unknown) (4-6) #30 tabs (units (unknown) date) unknown) (unknown) (no (unknown) (unknown) (Lamictal) (units (unk nown) date) unknown) (unknown) (no (unknown) (unknown) 05/09/22 05/09/22 (units (unknown) date) 05/09/22 unknown) Range/Units (unknown) (no (unknown) (unknown) 05/09/22 21:59 (units (unknown) date) unknown) (unknown) (no (unknown) (unknown) 05/09/22 22:04 (units (unknown) date) unknown) (unknown) (no (unknown) (unknown) 05/09/22 22:05 (units (unknown) date) unknown) (unknown) (no (unknown) (unknown) 05/09/22 (units (unkno wn) date) Range/Units unknown) (unknown) (no (unknown) (unknown) 05/09/22 (units (unkno wn) date) unknown) (unknown) (no (unknown) (unknown) [id number] (units (unkno wn) date) unknown) (unknown) (no (unknown) (unknown) 1 tab PO DAILY (units (unknown) date) unknown) (unknown) (no (unknown) (unknown) 1 tab PO Q6H PRN (units (unknown) date) (Reason: Pain unknown) (Scale Score 4-6)) (unknown) (no (unknown) (unknown) 1 unit PO DAILY (units (unknown) date) unknown) (unknown) (no (unknown) (unknown) 1. No acute (units (un known) date) cardiopulmonary unknown) disease. (unknown) (no (unknown) (unknown) 10 mg PO BEDTIME (units (unknown) date) unknown) (unknown) (no (unknown) (unknown) 100 mg PO BEDTIME (units (unknown) date) unknown) (unknown) (no (unknown) (unknown) 03/25/22 (units (unkno wn) date) unknown) (unknown) (no (unknown) (unknown) 2. Aneurysmal (units ( unknown) date) dilatation of the unknown) ascending thoracic aorta redemonstrated.? (unknown) (no (unknown) (unknown) 21:41 05/09/22 (units (unknown) date) unknown) (unknown) (no (unknown) (unknown) 21:59 21:59 21:59 (units (unknown) date) unknown) (unknown) (no (unknown) (unknown) 22:00 05/09/22 (units (unknown) date) unknown) (unknown) (no (unknown) (unknown) 22:01 05/09/22 (units (unknown) date) unknown) (unknown) (no (unknown) (unknown) 22:01 (units (unkno wn) date) unknown) (unknown) (no (unknown) (unknown) 22:05 (units (unkno wn) date) unknown) (unknown) (no (unknown) (unknown) 22:30 05/09/22 (units (unknown) date) unknown) (unknown) (no (unknown) (unknown) 22:31 05/09/22 (units (unknown) date) unknown) (unknown) (no (unknown) (unknown) 22:31 (units (unkno wn) date) unknown) (unknown) (no (unknown) (unknown) 23:00 05/09/22 (units (unknown) date) unknown) (unknown) (no (unknown) (unknown) 23:00 (units (unkno wn) date) unknown) (unknown) (no [...] (unknown) date) unknown) (unknown) (no (unknown) (unknown) 72-year-old woman (units (unknown) date) with a history of unknown) epilepsy, fibromyalgia, idiopathic pulmonary (unknown) (no (unknown) (unknown) 75 mcg PO DAILY (units (unknown) date) unknown) (unknown) (no (unknown) (unknown) 75 mcg transdermal (units (unknown) date) 3XD unknown) (unknown) (no (unknown) (unknown) ? (units (unkno wn) date) unknown) (unknown) (no (unknown) (unknown) ALT (<35) IU/L (units (unknown) date) unknown) (unknown) (no (unknown) (unknown) ALT 17 (<35) IU/L (units (unknown) date) unknown) (unknown) (no (unknown) (unknown) APTT (26-36) (units (u nknown) date) SECONDS unknown) (unknown) (no (unknown) (unknown) APTT 50 H (26-36) (units (unknown) date) SECONDS unknown) (unknown) (no (unknown) (unknown) AST (14-36) IU/L (units (unknown) date) unknown) (unknown) (no (unknown) (unknown) AST 26 (14-36) (units (unknown) date) IU/L unknown) (unknown) (no (unknown) (unknown) Abdomen: Soft, (units (unknown) date) nontender, good unknown) bowel tones, no flank pain (unknown) (no (unknown) (unknown) Age/Sex: 72 / F (units (unknown) date) unknown) (unknown) (no (unknown) (unknown) Albumin (3.5-5.0) (units (unknown) date) g/dL unknown) (unknown) (no (unknown) (unknown) Albumin 4.4 (units (un known) date) (3.5-5.0) g/dL unknown) (unknown) (no (unknown) (unknown) Albumin/Globulin (units (unknown) date) Ratio (1.0-2.8) unknown) (unknown) (no (unknown) (unknown) Albumin/Globulin (units (unknown) date) Ratio 1.3 (1.0-2.8) unknown) (unknown) (no (unknown) (unknown) Alkaline (units (unkno wn) date) Phosphatase unknown) (38-126) U/L (unknown) (no (unknown) (unknown) Alkaline (units (unkno wn) date) Phosphatase 109 unknown) (38-126) U/L (unknown) (no (unknown) (unknown) Allergies (units (unkn own) date) unknown) (unknown) (no (unknown) (unknown) Allergy/AdvReac (units (unknown) date) Type Severity unknown) Reaction Status Date / Time (unknown) (no (unknown) (unknown) Aspirin (Aspirin (units (unknown) date) 81 Mg Chew Tab) 324 unknown) mg PO NOW ONE (unknown) (no (unknown) (unknown) BUN (7-17) mg/dL (units (unknown) date) unknown) (unknown) (no (unknown) (unknown) BUN 27 H (7-17) (units (unknown) date) mg/dL unknown) (unknown) (no (unknown) (unknown) BUN/Creatinine (units (unknown) date) Ratio (6-22) unknown) (unknown) (no (unknown) (unknown) BUN/Creatinine (units (unknown) date) Ratio 31.0 H (6-22) unknown) (unknown) (no (unknown) (unknown) Baso # (Auto) (units ( unknown) date) (0-100) /uL unknown) (unknown) (no (unknown) (unknown) Baso # (Auto) 100 (units (unknown) date) (0-100) /uL unknown) (unknown) (no (unknown) (unknown) Baso % (Auto) (units ( unknown) date) (0-2) % unknown) (unknown) (no (unknown) (unknown) Baso % (Auto) 0.9 (units (unknown) date) (0-2) % unknown) (unknown) (no (unknown) (unknown) Blood Pressure (units (unknown) date) 114/49 L 115/52 L unknown) (unknown) (no (unknown) (unknown) Blood Pressure (units (unknown) date) 123/51 L 05/09/22 unknown) 21:41 (unknown) (no (unknown) (unknown) Blood Pressure (units (unknown) date) 123/51 L 129/56 L unknown) (unknown) (no (unknown) (unknown) Blood Pressure (units (unknown) date) unknown) (unknown) (no (unknown) (unknown) Bones and chest (units (unknown) date) wall:? No unknown) suspicious bony lesions.? Overlying soft tissues (unknown) (no (unknown) (unknown) Bradycardia, (units (u nknown) date) Fatigue, Exertional unknown) angina, Chronic idiopathic pulmonary fibrosis (unknown) (no (unknown) (unknown) CBC is (units (unkno wn) date) unremarkable unknown) without signs of leukocytosis or significant anemia (unknown) (no (unknown) (unknown) CC: Increased (units ( unknown) date) fatigue and slow unknown) heart rate (unknown) (no (unknown) (unknown) CK-MB (CK-2) Rel (units (unknown) date) Index TNP unknown) (unknown) (no (unknown) (unknown) CK-MB (CK-2) Rel (units (unknown) date) Index unknown) (unknown) (no (unknown) (unknown) CK-MB (CK-2) TNP (units (unknown) date) unknown) (unknown) (no (unknown) (unknown) CK-MB (CK-2) (units (u nknown) date) unknown) (unknown) (no (unknown) (unknown) COVID19 -Nasal (units (unknown) date) RAPID/Pre-Proc Stat unknown) (unknown) (no (unknown) (unknown) CT.? Heart (units (unk nown) date) unknown) (unknown) (no (unknown) (unknown) Calcium (8.4-10.2) (units (unknown) date) mg/dL unknown) (unknown) (no (unknown) (unknown) Calcium 9.4 (units (un known) date) (8.4-10.2) mg/dL unknown) (unknown) (no (unknown) (unknown) Carbon Dioxide (units (unknown) date) (22-32) mmol/L unknown) (unknown) (no (unknown) (unknown) Carbon Dioxide 27 (units (unknown) date) (22-32) mmol/L unknown) (unknown) (no (unknown) (unknown) Cardiac: (units (unkno wn) date) Bradycardic with unknown) 3/6 systolic murmur and 2/6 diastolic murmur (unknown) (no (unknown) (unknown) Chemistries are (units (unknown) date) unremarkable with unknown) normal renal function (unknown) (no (unknown) (unknown) Chest x-ray does (units (unknown) date) not show overt unknown) heart failure, aortic and reason is again (unknown) (no (unknown) (unknown) Chest x-ray: (units (u nknown) date) unknown) (unknown) (no (unknown) (unknown) Chief complaint: (units (unknown) date) Weakness unknown) (unknown) (no (unknown) (unknown) Chloride (98-107) (units (unknown) date) mmol/L unknown) (unknown) (no (unknown) (unknown) Chloride 97 L (units ( unknown) date) (98-107) mmol/L unknown) (unknown) (no (unknown) (unknown) Clinical (units (unkno wn) date) Impression: unknown) (unknown) (no (unknown) (unknown) Complete Blood (units (unknown) date) Count AUTO DIFF unknown) Stat (unknown) (no (unknown) (unknown) Complicating (units (u nknown) date) co-morbidities: unknown) Recent NSTEMI, hip fracture, addition of (unknown) (no (unknown) (unknown) Comprehensive (units ( unknown) date) Metabolic Panel unknown) Stat (unknown) (no (unknown) (unknown) Consultations: (units (unknown) date) Radha, cardiology unknown) at [facility] and partner to (unknown) (no (unknown) (unknown) Continues to be (units (unknown) date) bradycardic, not unknown) having any pain or dyspnea at rest. (unknown) (no (unknown) (unknown) Corroborating (units ( unknown) date) data: unknown) (unknown) (no (unknown) (unknown) Course (units (unkno wn) date) unknown) (unknown) (no (unknown) (unknown) Creatinine (units (unk nown) date) (0.52-1.04) mg/dL unknown) (unknown) (no (unknown) (unknown) Creatinine 0.87 (units (unknown) date) (0.52-1.04) mg/dL unknown) (unknown) (no (unknown) (unknown) : 1950 (units (unknown) date) Acct:[id number] unknown) (unknown) (no (unknown) (unknown) Data collected (units (unknown) date) from: patient, unknown) (unknown) (no (unknown) (unknown) Date of Service: (units (unknown) date) 05/09/22 unknown) (unknown) (no (unknown) (unknown) Departure (units (unkn own) date) unknown) (unknown) (no (unknown) (unknown) Dictated by: (units (u nknown) date) Ray Harris, unknown) [place] on 05/09/2022 at 23:08 ? ? 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, (unknown) (no (unknown) (unknown) Discharge Plan (units (unknown) date) unknown) (unknown) (no (unknown) (unknown) Discontinued (units (u nknown) date) Medications unknown) (unknown) (no (unknown) (unknown) Discussion: (units (un known) date) unknown) (unknown) (no (unknown) (unknown) Disposition: see (units (unknown) date) below, along with unknown) detailed discharge instructions that have (unknown) (no (unknown) (unknown) ECG Data (units (unkno wn) date) unknown) (unknown) (no (unknown) (unknown) ED Orders (units (unkn own) date) unknown) (unknown) (no (unknown) (unknown) EKG-12 Lead Stat (units (unknown) date) unknown) (unknown) (no (unknown) (unknown) ER Physician: (units ( unknown) date) Joanna Monaco MD unknown) (unknown) (no (unknown) (unknown) Emergency Report (units (unknown) date) unknown) (unknown) (no (unknown) (unknown) Eos # (Auto) (units (u nknown) date) (0-450) /uL unknown) (unknown) (no (unknown) (unknown) Eos # (Auto) 100 (units (unknown) date) (0-450) /uL unknown) (unknown) (no (unknown) (unknown) Eos % (Auto) (2-4) (units (unknown) date) % unknown) (unknown) (no (unknown) (unknown) Eos % (Auto) 1.0 L (units (unknown) date) (2-4) % unknown) (unknown) (no (unknown) (unknown) Estimated GFR > 60 (units (unknown) date) (>60) mL/min unknown) (unknown) (no (unknown) (unknown) Estimated GFR (units ( unknown) date) (>60) mL/min unknown) (unknown) (no (unknown) (unknown) Exam documented (units (unknown) date) above, pertinent unknown) findings include: Bradycardia with noted heart (unknown) (no (unknown) (unknown) Exam (units (unkno wn) date) unknown) (unknown) (no (unknown) (unknown) Extremities: No (units (unknown) date) trauma, well unknown) perfused, no lower extremity edema (unknown) (no (unknown) (unknown) FINDINGS:? (units (unk nown) date) unknown) (unknown) (no (unknown) (unknown) Fibromyalgia (units (u nknown) date) unknown) (unknown) (no (unknown) (unknown) Followed by (units (un known) date) Cardiology at unknown) [place]. She reportedly has ?too bad (unknown) (no (unknown) (unknown) Full and (units (unkno wn) date) symmetrical air unknown) movement (unknown) (no (unknown) (unknown) [place]. (units (unkno wn) date) Recommendation is unknown) observation admission overnight to trend troponins, (unknown) (no (unknown) (unknown) General (units (unkno wn) date) unknown) (unknown) (no (unknown) (unknown) General: Frail (units (unknown) date) chronically unknown) ill-appearing but in no acute distress. Able to (unknown) (no (unknown) (unknown) Globulin (1.7-4.1) (units (unknown) date) g/dL unknown) (unknown) (no (unknown) (unknown) Globulin 3.3 (units (u nknown) date) (1.7-4.1) g/dL unknown) (unknown) (no (unknown) (unknown) Glucose (80-110) (units (unknown) date) mg/dL unknown) (unknown) (no (unknown) (unknown) Glucose 103 (units (un known) date) (80-110) mg/dL unknown) (unknown) (no (unknown) (unknown) HEENT: Moist (units (u nknown) date) mucous membranes, unknown) normal sclera with reactive pupils, (unknown) (no (unknown) (unknown) HPI - General (units ( unknown) date) Adult unknown) (unknown) (no (unknown) (unknown) HPI narrative: (units (unknown) date) unknown) (unknown) (no (unknown) (unknown) Hct (36-46) % (units ( unknown) date) unknown) (unknown) (no (unknown) (unknown) Hct 42.9 (36-46) % (units (unknown) date) unknown) (unknown) (no (unknown) (unknown) Hgb (12.0-16.0) (units (unknown) date) g/dL unknown) (unknown) (no (unknown) (unknown) Hgb 14.2 (units (unkno wn) date) (12.0-16.0) g/dL unknown) (unknown) (no (unknown) (unknown) History of Present (units (unknown) date) Illness unknown) (unknown) (no (unknown) (unknown) Home Medications (units (unknown) date) unknown) (unknown) (no (unknown) (unknown) Hypertension (units (u nknown) date) unknown) (unknown) (no (unknown) (unknown) Hypothyroidism (units (unknown) date) unknown) (unknown) (no (unknown) (unknown) IMPRESSION:? (units (u nknown) date) unknown) (unknown) (no (unknown) (unknown) INR (0.9-1.3) (units ( unknown) date) unknown) (unknown) (no (unknown) (unknown) INR 1.2 (0.9-1.3) (units (unknown) date) unknown) (unknown) (no (unknown) (unknown) Imaging Data (units (u nknown) date) unknown) (unknown) (no (unknown) (unknown) Imaging studies (units (unknown) date) independently unknown) reviewed: (unknown) (no (unknown) (unknown) Independently (units ( unknown) date) reviewed EKG as unknown) above (unknown) (no (unknown) (unknown) Initial Vital (units ( unknown) date) Signs unknown) (unknown) (no (unknown) (unknown) Initial Vital (units ( unknown) date) Signs: unknown) (unknown) (no (unknown) (unknown) Initial troponin (units (unknown) date) is 0.018 unknown) (unknown) (no (unknown) (unknown) Interpretation: (units (unknown) date) unknown) (unknown) (no (unknown) (unknown) [facility] (units (unknown) date) [address] unknown) [place] [address] (unknown) (no (unknown) (unknown) LVH with (units (unkno wn) date) repolarization unknown) abnormalities (unknown) (no (unknown) (unknown) Lab Data (units (unkno wn) date) unknown) (unknown) (no (unknown) (unknown) Lab Results (units (un known) date) unknown) (unknown) (no (unknown) (unknown) Lab Test results (units (unknown) date) independently unknown) reviewed as above. Pertinent findings: (unknown) (no (unknown) (unknown) Labs: (units (unkno wn) date) unknown) (unknown) (no (unknown) (unknown) Lipase (23-300) (units (unknown) date) U/L unknown) (unknown) (no (unknown) (unknown) Lipase 152 (units (unk nown) date) (23-300) U/L unknown) (unknown) (no (unknown) (unknown) Lipase Stat (units (un known) date) unknown) (unknown) (no (unknown) (unknown) Lungs and pleura:? (units (unknown) date) Lungs are clear.? unknown) No pleural effusions or pneumothorax.? (unknown) (no (unknown) (unknown) Darrell Cottrell, (units (unknown) date) [Primary Care unknown) Provider] (unknown) (no (unknown) (unknown) Lymph # (Auto) (units (unknown) date) ([id number]) /uL unknown) (unknown) (no (unknown) (unknown) Lymph # (Auto) (units (unknown) date) 1700 ([id number]) unknown) /uL (unknown) (no (unknown) (unknown) Lymph % (Auto) (units (unknown) date) (25-40) % unknown) (unknown) (no (unknown) (unknown) Lymph % (Auto) (units (unknown) date) 18.2 L (25-40) % unknown) (unknown) (no (unknown) (unknown) MCH (26-34) PG (units (unknown) date) unknown) (unknown) (no (unknown) (unknown) MCH 28.0 (26-34) (units (unknown) date) PG unknown) (unknown) (no (unknown) (unknown) MCHC (30-36) % (units (unknown) date) unknown) (unknown) (no (unknown) (unknown) MCHC 33.0 (30-36) (units (unknown) date) % unknown) (unknown) (no (unknown) (unknown) MCV (80-100) fL (units (unknown) date) unknown) (unknown) (no (unknown) (unknown) MCV 84.9 (80-100) (units (unknown) date) fL unknown) (unknown) (no (unknown) (unknown) MDM Narrative (units ( unknown) date) unknown) (unknown) (no (unknown) (unknown) Magnesium (units (unkn own) date) (1.6-2.3) mg/dL unknown) (unknown) (no (unknown) (unknown) Magnesium 1.9 (units ( unknown) date) (1.6-2.3) mg/dL unknown) (unknown) (no (unknown) (unknown) Magnesium Stat (units (unknown) date) unknown) (unknown) (no (unknown) (unknown) Mediastinum:? (units ( unknown) date) Mediastinal unknown) contours are unchanged, with enlargement of the (unknown) (no (unknown) (unknown) Medical Decision (units (unknown) date) Making unknown) (unknown) (no (unknown) (unknown) Medical History (units (unknown) date) (Updated 05/10/22 @ unknown) 00:19 by Joanna Monaco MD) (unknown) (no (unknown) (unknown) Medical decision (units (unknown) date) making narrative: unknown) (unknown) (no (unknown) (unknown) Medical records (units (unknown) date) reviewed: Hospital unknown) admission records reviewed as well as (unknown) (no (unknown) (unknown) Medication (units (unk nown) date) Instructions unknown) Recorded Confirmed (unknown) (no (unknown) (unknown) Medication (units (unk nown) date) Instructions unknown) Recorded (unknown) (no (unknown) (unknown) Mode of arrival: (units (unknown) date) Wheelchair unknown) (unknown) (no (unknown) (unknown) Mobile # (Auto) (units ( unknown) date) (0-900) /uL unknown) (unknown) (no (unknown) (unknown) Mobile # (Auto) 700 (units (unknown) date) (0-900) /uL unknown) (unknown) (no (unknown) (unknown) Mobile % (Auto) (units ( unknown) date) (3-14) % unknown) (unknown) (no (unknown) (unknown) Mobile % (Auto) 7.7 (units (unknown) date) (3-14) % unknown) (unknown) (no (unknown) (unknown) Myocardial (units (unk nown) date) infarction unknown) (unknown) (no (unknown) (unknown) Narrative: (units (unk nown) date) unknown) (unknown) (no (unknown) (unknown) Neck: No JVD, (units ( unknown) date) supple unknown) (unknown) (no (unknown) (unknown) Neurologic: (units (un known) date) Grossly unknown) neurologically intact with no obvious asymmetries or (unknown) (no (unknown) (unknown) Neut # (Auto) (units ( unknown) date) (2658-7825) /uL unknown) (unknown) (no (unknown) (unknown) Neut # (Auto) 6800 (units (unknown) date) (5803-6322) /uL unknown) (unknown) (no (unknown) (unknown) Neut % (Auto) (units ( unknown) date) (50-75) % unknown) (unknown) (no (unknown) (unknown) Neut % (Auto) 72.2 (units (unknown) date) (50-75) % unknown) (unknown) (no (unknown) (unknown) No Action (units (unkn own) date) unknown) (unknown) (no (unknown) (unknown) No significant (units (unknown) date) ischemic changes unknown) (unknown) (no (unknown) (unknown) Ordered: (units (unkno wn) date) unknown) (unknown) (no (unknown) (unknown) Orders (units (unkno wn) date) unknown) (unknown) (no (unknown) (unknown) Oxygen Delivery (units (unknown) date) Method 05/09/22 unknown) 21:41 (unknown) (no (unknown) (unknown) Oxygen Delivery (units (unknown) date) Method Room Air unknown) (unknown) (no (unknown) (unknown) Oxygen Delivery (units (unknown) date) Method unknown) (unknown) (no (unknown) (unknown) PT (10.1-12.7) (units (unknown) date) SECONDS unknown) (unknown) (no (unknown) (unknown) PT 13.5 H (units (unkn own) date) (10.1-12.7) SECONDS unknown) (unknown) (no (unknown) (unknown) Partial (units (unkno wn) date) Thromboplastin Time unknown) Stat (unknown) (no (unknown) (unknown) Patient History (units (unknown) date) unknown) (unknown) (no (unknown) (unknown) Patient: (units (unkno wn) date) [place] unknown) MR#: [id number] (unknown) (no (unknown) (unknown) Plt Count (units (unkn own) date) (150-400) X103/uL unknown) (unknown) (no (unknown) (unknown) Plt Count 328 (units ( unknown) date) (150-400) X103/uL unknown) (unknown) (no (unknown) (unknown) Potassium (units (unkn own) date) (3.4-5.1) mmol/L unknown) (unknown) (no (unknown) (unknown) Potassium 4.4 (units ( unknown) date) (3.4-5.1) mmol/L unknown) (unknown) (no (unknown) (unknown) Prescriptions: (units (unknown) date) unknown) (unknown) (no (unknown) (unknown) Previous Rx's (units ( unknown) date) unknown) (unknown) (no (unknown) (unknown) Prothrombin Time (units (unknown) date) INR Stat unknown) (unknown) (no (unknown) (unknown) Psych: (units (unkno wn) date) Cooperative, unknown) appropriate insight and affect (unknown) (no (unknown) (unknown) Pulse Oximetry 100 (units (unknown) date) 05/09/22 21:41 unknown) (unknown) (no (unknown) (unknown) Pulse Oximetry 100 (units (unknown) date) unknown) (unknown) (no (unknown) (unknown) Pulse Oximetry 98 (units (unknown) date) unknown) (unknown) (no (unknown) (unknown) Pulse Oximetry 99 (units (unknown) date) 98 97 unknown) (unknown) (no (unknown) (unknown) Pulse Rate 41 L (units (unknown) date) unknown) (unknown) (no (unknown) (unknown) Pulse Rate 42 L 43 (units (unknown) date) L 43 L unknown) (unknown) (no (unknown) (unknown) Pulse Rate 44 L (units (unknown) date) 05/09/22 21:41 unknown) (unknown) (no (unknown) (unknown) Pulse Rate 44 L 43 (units (unknown) date) L unknown) (unknown) (no (unknown) (unknown) QTC elongated at (units (unknown) date) 494 milliseconds unknown) (unknown) (no (unknown) (unknown) RBC (4.0-5.2) (units ( unknown) date) X106/uL unknown) (unknown) (no (unknown) (unknown) RBC 5.06 (4.0-5.2) (units (unknown) date) X106/uL unknown) (unknown) (no (unknown) (unknown) RDW (11.6-14.8) % (units (unknown) date) unknown) (unknown) (no (unknown) (unknown) RDW 15.0 H (units (unk nown) date) (11.6-14.8) % unknown) (unknown) (no (unknown) (unknown) Radiologist's (units ( unknown) date) Impression: unknown) (unknown) (no (unknown) (unknown) Re-evaluations: (units (unknown) date) Patient is unknown) re-evaluated after discussion with Cardiology. (unknown) (no (unknown) (unknown) Referrals: (units (unk nown) date) unknown) (unknown) (no (unknown) (unknown) Related Data (units (u nknown) date) unknown) (unknown) (no (unknown) (unknown) Remainder of (units (u nknown) date) complete review of unknown) systems is otherwise unremarkable except for (unknown) (no (unknown) (unknown) Respiratory Rate (units (unknown) date) 18 05/09/22 21:41 unknown) (unknown) (no (unknown) (unknown) Respiratory Rate (units (unknown) date) 18 44 H unknown) (unknown) (no (unknown) (unknown) Respiratory Rate (units (unknown) date) 22 unknown) (unknown) (no (unknown) (unknown) Respiratory Rate (units (unknown) date) 43 H 12 14 unknown) (unknown) (no (unknown) (unknown) Respiratory: Lungs (units (unknown) date) are clear to unknown) auscultation, no wheezing no rales no rhonchi. (unknown) (no (unknown) (unknown) Restrictive lung (units (unknown) date) disease unknown) (unknown) (no (unknown) (unknown) Review of Systems (units (unknown) date) unknown) (unknown) (no (unknown) (unknown) Rx Instructions: (units (unknown) date) unknown) (unknown) (no (unknown) (unknown) SARS-CoV-2 (PCR) (units (unknown) date) (Negative) unknown) (unknown) (no (unknown) (unknown) SARS-CoV-2 (PCR) (units (unknown) date) Negative (Negative) unknown) (unknown) (no (unknown) (unknown) She has (units (unkno wn) date) dramatically unknown) limited her overall activity levels because of this. She (unknown) (no (unknown) (unknown) Signed By: (units (unk nown) date) unknown) (unknown) (no (unknown) (unknown) Sinus bradycardia (units (unknown) date) at a rate of 44 unknown) (unknown) (no (unknown) (unknown) Skin: Warm and (units (unknown) date) dry, no rashes unknown) (unknown) (no (unknown) (unknown) Smoking Status: (units (unknown) date) Former smoker unknown) (unknown) (no (unknown) (unknown) Social History (units (unknown) date) (Reviewed 03/23/22 unknown) @ 16:07 by Liam Colón MD) (unknown) (no (unknown) (unknown) Social (units (unkno wn) date) determinants of unknown) health that may influence the patients condition: (unknown) (no (unknown) (unknown) Sodium (137-145) (units (unknown) date) mmol/L unknown) (unknown) (no (unknown) (unknown) Sodium 135 L (units (u nknown) date) (137-145) mmol/L unknown) (unknown) (no (unknown) (unknown) Source: patient (units (unknown) date) unknown) (unknown) (no (unknown) (unknown) Stated complaint: (units (unknown) date) heart is unknown) fluctuating, uncontrolled temperature (unknown) (no (unknown) (unknown) Status post hip (units (unknown) date) surgery unknown) (unknown) (no (unknown) (unknown) Stop: 05/09/22 (units (unknown) date) 22:05 unknown) (unknown) (no (unknown) (unknown) 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 unknown) None.? (unknown) (no (unknown) (unknown) Takes 1 to 2 (units (u nknown) date) tablets every 6 unknown) hours (unknown) (no (unknown) (unknown) Takes 1/2 tab of (units (unknown) date) the 100mg in the AM unknown) (unknown) (no (unknown) (unknown) Takes 2 tablets (units (unknown) date) daily unknown) (unknown) (no (unknown) (unknown) Temperature 98 F (units (unknown) date) 05/09/22 21:41 unknown) (unknown) (no (unknown) (unknown) Temperature 98 F (units (unknown) date) unknown) (unknown) (no (unknown) (unknown) Temperature (units (un known) date) unknown) (unknown) (no (unknown) (unknown) Time Seen by (units (u nknown) date) Provider: 05/09/22 unknown) 23:53 (unknown) (no (unknown) (unknown) Total Bilirubin (units (unknown) date) (0.2-1.3) mg/dL unknown) (unknown) (no (unknown) (unknown) Total Bilirubin (units (unknown) date) 0.8 (0.2-1.3) mg/dL unknown) (unknown) (no (unknown) (unknown) Total Creatine (units (unknown) date) Kinase (30-135) U/L unknown) (unknown) (no (unknown) (unknown) Total Creatine (units (unknown) date) Kinase 44 (30-135) unknown) U/L (unknown) (no (unknown) (unknown) Total Protein (units ( unknown) date) (6.3-8.2) g/dL unknown) (unknown) (no (unknown) (unknown) Total Protein 7.7 (units (unknown) date) (6.3-8.2) g/dL unknown) (unknown) (no (unknown) (unknown) Treatments: She is (units (unknown) date) given aspirin, unknown) metoprolol is held (unknown) (no (unknown) (unknown) Troponin + CK (units ( unknown) date) Cardiac Panel Stat unknown) (unknown) (no (unknown) (unknown) Troponin I (units (unk nown) date) (0.01-0.034) ng/mL unknown) (unknown) (no (unknown) (unknown) Troponin I 0.018 (units (unknown) date) (0.01-0.034) ng/mL unknown) (unknown) (no (unknown) (unknown) Unclear when last (units (unknown) date) TSH has been unknown) checked will add today. Will also add BNP. (unknown) (no (unknown) (unknown) Understands need (units (unknown) date) for hospitalization unknown) and observation. We will continue to (unknown) (no (unknown) (unknown) Vital Signs - 8 hr (units (unknown) date) unknown) (unknown) (no (unknown) (unknown) Vital Signs (units (un known) date) unknown) (unknown) (no (unknown) (unknown) Vital signs: (units (u nknown) date) unknown) (unknown) (no (unknown) (unknown) WBC (4.5-11.0) (units (unknown) date) X103/uL unknown) (unknown) (no (unknown) (unknown) WBC 9.4 (4.5-11.0) (units (unknown) date) X103/uL unknown) (unknown) (no (unknown) (unknown) XR chest 1V Stat (units (unknown) date) unknown) (unknown) (no (unknown) (unknown) [Embedded Image (units (unknown) date) Not Available] unknown) (unknown) (no (unknown) (unknown) [From [facility]] (units ( unknown) date) unknown) (unknown) (no (unknown) (unknown) abnormalities (units ( unknown) date) unknown) (unknown) (no (unknown) (unknown) additional (units (unk nown) date) outpatient follow unknown) up (unknown) (no (unknown) (unknown) adhesive tape (units ( unknown) date) AdvReac Verified unknown) 05/09/22 21:46 (unknown) (no (unknown) (unknown) after TX with (units ( unknown) date) metoprolol and unknown) complains of low energy with exertional (unknown) (no (unknown) (unknown) alcohol intake (units (unknown) date) frequency: 0-2 unknown) drinks per day (unknown) (no (unknown) (unknown) alcohol intake: (units (unknown) date) current unknown) (unknown) (no (unknown) (unknown) angina/shortness (units (unknown) date) of breath that unknown) resolves with nitroglycerin. Over the last 24 (unknown) (no (unknown) (unknown) aortic contour (units (unknown) date) consistent with an unknown) ascending aortic aneurysm seen on the prior (unknown) (no (unknown) (unknown) appear (units (unkno wn) date) unknown) (unknown) (no (unknown) (unknown) appreciated (units (un known) date) unknown) (unknown) (no (unknown) (unknown) ascending (units (unkn own) date) unknown) (unknown) (no (unknown) (unknown) been reviewed with (units (unknown) date) patient as well as unknown) indications for ED re-evaluation and (unknown) (no (unknown) (unknown) bnormalities after (units (unknown) date) multiple acute unknown) issues in the last 3 months, no evidence of (unknown) (no (unknown) (unknown) call consultation (units (unknown) date) with Cardiology unknown) prior to discharge and agrees with cutting (unknown) (no (unknown) (unknown) cholecalciferol (units (unknown) date) (vitamin D3) 50 50 unknown) mcg PO DAILY 03/25/22 03/25/22 (unknown) (no (unknown) (unknown) cholecalciferol (units (unknown) date) (vitamin D3) 50 mcg unknown) (2,000 unit) Tablet (unknown) (no (unknown) (unknown) closely coordinate (units (unknown) date) outpatient unknown) discharge(presuming heart rate comes up and she is (unknown) (no (unknown) (unknown) diazepam 10 mg (units (unknown) date) tablet (Valium) 10 unknown) mg PO BEDTIME 03/25/22 03/25/22 (unknown) (no (unknown) (unknown) diazepam [Valium] (units (unknown) date) 10 mg Tablet unknown) (unknown) (no (unknown) (unknown) dissection, (units (un known) date) pneumothorax. unknown) Possibility of viral infection, bacterial infection (unknown) (no (unknown) (unknown) extremity edema, (units (unknown) date) headaches but unknown) overall general malaise and fatigue. (unknown) (no (unknown) (unknown) feeling better (units (unknown) date) with an unchanged unknown) echocardiogram) (unknown) (no (unknown) (unknown) fentanyl 75 mcg/hr (units (unknown) date) patch 72 hour unknown) (unknown) (no (unknown) (unknown) fentanyl 75 mcg/hr (units (unknown) date) transdermal 75 mcg unknown) transdermal 3XD pain 03/23/22 03/23/22 (unknown) (no (unknown) (unknown) fibrosis, diabetes (units (unknown) date) with myocardial unknown) infarction in February of 2022 and then (unknown) (no (unknown) (unknown) fluoxetine 40 mg (units (unknown) date) capsule (Prozac) 40 unknown) mg PO DAILY ##0 11/29/12 03/25/22 (unknown) (no (unknown) (unknown) fluoxetine (units (unk nown) date) [Prozac] 40 MG unknown) capsule (unknown) (no (unknown) (unknown) for further (units (un known) date) evaluation. She unknown) reports no overt fevers, cough, orthopnea, lower (unknown) (no (unknown) (unknown) future. In the (units (unknown) date) meantime she unknown) complains that she can feel her heartbeat and it is (unknown) (no (unknown) (unknown) give a complete (units (unknown) date) and coherent unknown) history. Well-nourished well-developed (unknown) (no (unknown) (unknown) hours she is had (units (unknown) date) chills and unknown) significantly increased fatigue. She does note that (unknown) (no (unknown) (unknown) household members: (units (unknown) date) significant other unknown) (unknown) (no (unknown) (unknown) lamotrigine 100 mg (units (unknown) date) tablet 100 mg PO unknown) BEDTIME 03/25/22 03/25/22 (unknown) (no (unknown) (unknown) lamotrigine 100 mg (units (unknown) date) tablet 50 mg PO unknown) DAILY 03/25/22 03/25/22 (unknown) (no (unknown) (unknown) lamotrigine (units (un known) date) [Lamictal] 100 mg unknown) Tablet (unknown) (no (unknown) (unknown) last patch applied (units (unknown) date) 03/22 on left wrist unknown) (unknown) (no (unknown) (unknown) levothyroxine 75 (units (unknown) date) mcg Tablet unknown) (unknown) (no (unknown) (unknown) levothyroxine 75 (units (unknown) date) mcg tablet 75 mcg unknown) PO DAILY 03/25/22 03/25/22 (unknown) (no (unknown) (unknown) mcg (2,000 unit) (units (unknown) date) tablet unknown) (unknown) (no (unknown) (unknown) medication side (units (unknown) date) effects, worsening unknown) cardiac angina, severe anemia, thyroid a (unknown) (no (unknown) (unknown) metoprolol after (units (unknown) date) her NSTEMI, unknown) worsening exertional angina (unknown) (no (unknown) (unknown) metoprolol dose in (units (unknown) date) and adding 2.5 mg unknown) of amlodipine for treating her anginal (unknown) (no (unknown) (unknown) metoprolol (units (unk nown) date) tartrate 50 mg unknown) Tablet (unknown) (no (unknown) (unknown) metoprolol (units (unk nown) date) tartrate 50 mg unknown) tablet 50 mg PO BID 03/25/22 03/25/22 (unknown) (no (unknown) (unknown) mg tablet (units (unkn own) date) (Percocet) 4-6) unknown) (unknown) (no (unknown) (unknown) murmurs, no (units (un known) date) significant unknown) evidence of volume overload clinically (unknown) (no (unknown) (unknown) nitroglycerin that (units (unknown) date) is getting more unknown) frequent and more intense with the episodes. (unknown) (no (unknown) (unknown) oxycodone 5 mg (units (unknown) date) Tablet unknown) (unknown) (no (unknown) (unknown) oxycodone 5 mg (units (unknown) date) tablet 5 mg PO Q4HR unknown) PRN Pain, Moderate 03/28/22 (unknown) (no (unknown) (unknown) oxycodone-acetamin (units (unknown) date) ophen 5 mg-325 1 unknown) tab PO Q6H PRN Pain (Scale Score 03/25/22 (unknown) (no (unknown) (unknown) oxycodone-acetamin (units (unknown) date) ophen [Percocet] unknown) 5-325 mg Tablet (unknown) (no (unknown) (unknown) patch (units (unkno wn) date) unknown) (unknown) (no (unknown) (unknown) records from (units (u nknown) date) [facility] unknown) [facility]. (unknown) (no (unknown) (unknown) repeat (units (unkno wn) date) echocardiogram, unknown) hold metoprolol and re-evaluate. He recommended phone (unknown) (no (unknown) (unknown) she is supposed to (units (unknown) date) be scheduled for a unknown) cardiac catheterization in the near (unknown) (no (unknown) (unknown) size is enlarged. (units (unknown) date) unknown) (unknown) (no (unknown) (unknown) subsequent hip (units (unknown) date) surgery after unknown) falling sustaining a hip fracture in March. (unknown) (no (unknown) (unknown) substance use (units ( unknown) date) type: does not use unknown) (unknown) (no (unknown) (unknown) sulfamethoxazole (units (unknown) date) Allergy Verified unknown) 05/09/22 21:46 (unknown) (no (unknown) (unknown) symptoms while not (units (unknown) date) exacerbating her unknown) bradycardia. (unknown) (no (unknown) (unknown) talked to her (units ( unknown) date) cardiology office unknown) earlier today and they recommended she come in (unknown) (no (unknown) (unknown) that included in (units (unknown) date) the HPI. unknown) (unknown) (no (unknown) (unknown) trimethoprim [From (units (unknown) date) [facility]] Allergy unknown) Verified 05/09/22 21:46 (unknown) (no (unknown) (unknown) unremarkable.? (units (unknown) date) unknown) (unknown) (no (unknown) (unknown) valves and an (units ( unknown) date) aortic aneurysm unknown) that they are watching?. She was discharged home (unknown) (no (unknown) (unknown) very slow, that (units (unknown) date) she is having unknown) significant exertional angina that responds to (unknown) (no (unknown) (unknown) vitamin B complex (units (unknown) date) 1 tab PO DAILY unknown) 03/25/22 03/25/22 (unknown) (no (unknown) (unknown) vitamin B complex (units (unknown) date) Tablet unknown) (unknown) (no (unknown) (unknown) vitamin E 400 unit (units (unknown) date) Tablet unknown) (unknown) (no (unknown) (unknown) vitamin E 400 unit (units (unknown) date) tablet 1 unit PO unknown) DAILY 03/25/22 03/25/22 Result panel 232 (unknown) (no (unknown) (unknown) (no value) (units (unk nown) date) unknown) (unknown) (no (unknown) (unknown) (4-6) #30 tabs (units (unknown) date) unknown) (unknown) (no (unknown) (unknown) (Lamictal) (units (unk nown) date) unknown) (unknown) (no (unknown) (unknown) 00:00 05/10/22 (units (unknown) date) unknown) (unknown) (no (unknown) (unknown) 00:30 05/10/22 (units (unknown) date) unknown) (unknown) (no (unknown) (unknown) 00:30 (units (unkno wn) date) unknown) (unknown) (no (unknown) (unknown) 05/09/22 05/09/22 (units (unknown) date) 05/09/22 unknown) Range/Units (unknown) (no (unknown) (unknown) 05/09/22 21:59 (units (unknown) date) unknown) (unknown) (no (unknown) (unknown) 05/09/22 22:04 (units (unknown) date) unknown) (unknown) (no (unknown) (unknown) 05/09/22 22:05 (units (unknown) date) unknown) (unknown) (no (unknown) (unknown) 05/09/22 (units (unkno wn) date) Range/Units unknown) (unknown) (no (unknown) (unknown) 05/09/22 (units (unkno wn) date) unknown) (unknown) (no (unknown) (unknown) 05/10/22 (units (unkno wn) date) unknown) (unknown) (no (unknown) (unknown) 01:00 05/10/22 (units (unknown) date) unknown) (unknown) (no (unknown) (unknown) 01:01 (units (unkno wn) date) unknown) (unknown) (no (unknown) (unknown) [id number] (units (unkno wn) date) unknown) (unknown) (no (unknown) (unknown) 1. No acute (units (un known) date) cardiopulmonary unknown) disease. (unknown) (no (unknown) (unknown) 03/25/22 (units (unkno wn) date) unknown) (unknown) (no (unknown) (unknown) 2. Aneurysmal (units ( unknown) date) dilatation of the unknown) ascending thoracic aorta redemonstrated.? (unknown) (no (unknown) (unknown) 21:41 05/09/22 (units (unknown) date) unknown) (unknown) (no (unknown) (unknown) 21:59 21:59 21:59 (units (unknown) date) unknown) (unknown) (no (unknown) (unknown) 22:00 05/09/22 (units (unknown) date) unknown) (unknown) (no (unknown) (unknown) 22:01 05/09/22 (units (unknown) date) unknown) (unknown) (no (unknown) (unknown) 22:01 (units (unkno wn) date) unknown) (unknown) (no (unknown) (unknown) 22:05 (units (unkno wn) date) unknown) (unknown) (no (unknown) (unknown) 22:30 05/09/22 (units (unknown) date) unknown) (unknown) (no (unknown) (unknown) 22:31 05/09/22 (units (unknown) date) unknown) (unknown) (no (unknown) (unknown) 22:31 (units (unkno wn) date) unknown) (unknown) (no (unknown) (unknown) 23:00 05/09/22 (units (unknown) date) unknown) (unknown) (no (unknown) (unknown) 23:00 (units (unkno wn) date) unknown) (unknown) (no (unknown) (unknown) 23:30 05/09/22 (units (unknown) date) unknown) (unknown) (no (unknown) (unknown) 23:31 05/09/22 (units (unknown) date) unknown) (unknown) (no (unknown) (unknown) 23:31 (units (unkno wn) date) unknown) (unknown) (no (unknown) (unknown) 72-year-old woman (units (unknown) date) with a history of unknown) epilepsy, fibromyalgia, idiopathic pulmonary (unknown) (no (unknown) (unknown) ? (units (unkno wn) date) unknown) (unknown) (no (unknown) (unknown) ALT (<35) IU/L (units (unknown) date) unknown) (unknown) (no (unknown) (unknown) ALT 17 (<35) IU/L (units (unknown) date) unknown) (unknown) (no (unknown) (unknown) APTT (26-36) (units (u nknown) date) SECONDS unknown) (unknown) (no (unknown) (unknown) APTT 50 H (26-36) (units (unknown) date) SECONDS unknown) (unknown) (no (unknown) (unknown) AST (14-36) IU/L (units (unknown) date) unknown) (unknown) (no (unknown) (unknown) AST 26 (14-36) (units (unknown) date) IU/L unknown) (unknown) (no (unknown) (unknown) Abdomen: Soft, (units (unknown) date) nontender, good unknown) bowel tones, no flank pain (unknown) (no (unknown) (unknown) Age/Sex: 72 / F (units (unknown) date) unknown) (unknown) (no (unknown) (unknown) Albumin (3.5-5.0) (units (unknown) date) g/dL unknown) (unknown) (no (unknown) (unknown) Albumin 4.4 (units (un known) date) (3.5-5.0) g/dL unknown) (unknown) (no (unknown) (unknown) Albumin/Globulin (units (unknown) date) Ratio (1.0-2.8) unknown) (unknown) (no (unknown) (unknown) Albumin/Globulin (units (unknown) date) Ratio 1.3 (1.0-2.8) unknown) (unknown) (no (unknown) (unknown) Alkaline (units (unkno wn) date) Phosphatase unknown) (38-126) U/L (unknown) (no (unknown) (unknown) Alkaline (units (unkno wn) date) Phosphatase 109 unknown) (38-126) U/L (unknown) (no (unknown) (unknown) Allergies (units (unkn own) date) unknown) (unknown) (no (unknown) (unknown) Allergy/AdvReac (units (unknown) date) Type Severity unknown) Reaction Status Date / Time (unknown) (no (unknown) (unknown) Aspirin (Aspirin (units (unknown) date) 81 Mg Chew Tab) 324 unknown) mg PO NOW ONE (unknown) (no (unknown) (unknown) BUN (7-17) mg/dL (units (unknown) date) unknown) (unknown) (no (unknown) (unknown) BUN 27 H (7-17) (units (unknown) date) mg/dL unknown) (unknown) (no (unknown) (unknown) BUN/Creatinine (units (unknown) date) Ratio (6-22) unknown) (unknown) (no (unknown) (unknown) BUN/Creatinine (units (unknown) date) Ratio 31.0 H (6-22) unknown) (unknown) (no (unknown) (unknown) Baso # (Auto) (units ( unknown) date) (0-100) /uL unknown) (unknown) (no (unknown) (unknown) Baso # (Auto) 100 (units (unknown) date) (0-100) /uL unknown) (unknown) (no (unknown) (unknown) Baso % (Auto) (units ( unknown) date) (0-2) % unknown) (unknown) (no (unknown) (unknown) Baso % (Auto) 0.9 (units (unknown) date) (0-2) % unknown) (unknown) (no (unknown) (unknown) Blood Pressure (units (unknown) date) 114/49 L 115/52 L unknown) (unknown) (no (unknown) (unknown) Blood Pressure (units (unknown) date) 122/56 L unknown) (unknown) (no (unknown) (unknown) Blood Pressure (units (unknown) date) 123/51 L 05/09/22 unknown) 21:41 (unknown) (no (unknown) (unknown) Blood Pressure (units (unknown) date) 123/51 L 129/56 L unknown) (unknown) (no (unknown) (unknown) Blood Pressure (units (unknown) date) 127/58 L 131/56 L unknown) (unknown) (no (unknown) (unknown) Blood Pressure (units (unknown) date) 142/59 H unknown) (unknown) (no (unknown) (unknown) Blood Pressure (units (unknown) date) unknown) (unknown) (no (unknown) (unknown) Bones and chest (units (unknown) date) wall:? No unknown) suspicious bony lesions.? Overlying soft tissues (unknown) (no (unknown) (unknown) Bradycardia, (units (u nknown) date) Fatigue, Exertional unknown) angina, Chronic idiopathic pulmonary fibrosis (unknown) (no (unknown) (unknown) CBC is (units (unkno wn) date) unremarkable unknown) without signs of leukocytosis or significant anemia (unknown) (no (unknown) (unknown) CC: Increased (units ( unknown) date) fatigue and slow unknown) heart rate (unknown) (no (unknown) (unknown) CK-MB (CK-2) Rel (units (unknown) date) Index TNP unknown) (unknown) (no (unknown) (unknown) CK-MB (CK-2) Rel (units (unknown) date) Index unknown) (unknown) (no (unknown) (unknown) CK-MB (CK-2) TNP (units (unknown) date) unknown) (unknown) (no (unknown) (unknown) CK-MB (CK-2) (units (u nknown) date) unknown) (unknown) (no (unknown) (unknown) COVID19 -Nasal (units (unknown) date) RAPID/Pre-Proc Stat unknown) (unknown) (no (unknown) (unknown) CT.? Heart (units (unk nown) date) unknown) (unknown) (no (unknown) (unknown) Calcium (8.4-10.2) (units (unknown) date) mg/dL unknown) (unknown) (no (unknown) (unknown) Calcium 9.4 (units (un known) date) (8.4-10.2) mg/dL unknown) (unknown) (no (unknown) (unknown) Carbon Dioxide (units (unknown) date) (22-32) mmol/L unknown) (unknown) (no (unknown) (unknown) Carbon Dioxide 27 (units (unknown) date) (22-32) mmol/L unknown) (unknown) (no (unknown) (unknown) Cardiac: (units (unkno wn) date) Bradycardic with unknown) 3/6 systolic murmur and 2/6 diastolic murmur (unknown) (no (unknown) (unknown) Chemistries are (units (unknown) date) unremarkable with unknown) normal renal function (unknown) (no (unknown) (unknown) Chest x-ray does (units (unknown) date) not show overt unknown) heart failure, aortic and reason is again (unknown) (no (unknown) (unknown) Chest x-ray: (units (u nknown) date) unknown) (unknown) (no (unknown) (unknown) Chief complaint: (units (unknown) date) Weakness unknown) (unknown) (no (unknown) (unknown) Chloride (98-107) (units (unknown) date) mmol/L unknown) (unknown) (no (unknown) (unknown) Chloride 97 L (units ( unknown) date) (98-107) mmol/L unknown) (unknown) (no (unknown) (unknown) Clinical (units (unkno wn) date) Impression: unknown) (unknown) (no (unknown) (unknown) Complete Blood (units (unknown) date) Count AUTO DIFF unknown) Stat (unknown) (no (unknown) (unknown) Complicating (units (u nknown) date) co-morbidities: unknown) Recent NSTEMI, hip fracture, addition of (unknown) (no (unknown) (unknown) Comprehensive (units ( unknown) date) Metabolic Panel unknown) Stat (unknown) (no (unknown) (unknown) Consultations: (units (unknown) date) Radha, cardiology unknown) at [facility] and partner to (unknown) (no (unknown) (unknown) Continues to be (units (unknown) date) bradycardic, not unknown) having any pain or dyspnea at rest. (unknown) (no (unknown) (unknown) Derry for 3 (units (unknown) date) days without actual unknown) transfer to [facility] with event (unknown) (no (unknown) (unknown) Corroborating (units ( unknown) date) data: unknown) (unknown) (no (unknown) (unknown) Course (units (unkno wn) date) unknown) (unknown) (no (unknown) (unknown) Creatinine (units (unk nown) date) (0.52-1.04) mg/dL unknown) (unknown) (no (unknown) (unknown) Creatinine 0.87 (units (unknown) date) (0.52-1.04) mg/dL unknown) (unknown) (no (unknown) (unknown) : 1950 (units (unknown) date) Acct:[id number] unknown) (unknown) (no (unknown) (unknown) Data collected (units (unknown) date) from: patient, unknown) (unknown) (no (unknown) (unknown) Date of Service: (units (unknown) date) 05/09/22 unknown) (unknown) (no (unknown) (unknown) Departure (units (unkn own) date) unknown) (unknown) (no (unknown) (unknown) Dictated by: (units (u nknown) date) Ray Harris, unknown) [place] on 05/09/2022 at 23:08 ? ? 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, (unknown) (no (unknown) (unknown) Discharge Plan (units (unknown) date) unknown) (unknown) (no (unknown) (unknown) Discontinued (units (u nknown) date) Medications unknown) (unknown) (no (unknown) (unknown) Disposition: see (units (unknown) date) below, along with unknown) detailed discharge instructions that have (unknown) (no (unknown) (unknown) ECG Data (units (unkno wn) date) unknown) (unknown) (no (unknown) (unknown) ED Orders (units (unkn own) date) unknown) (unknown) (no (unknown) (unknown) EKG-12 Lead Stat (units (unknown) date) unknown) (unknown) (no (unknown) (unknown) ER Physician: (units ( unknown) date) Joanna Monaco MD unknown) (unknown) (no (unknown) (unknown) Emergency Report (units (unknown) date) unknown) (unknown) (no (unknown) (unknown) Eos # (Auto) (units (u nknown) date) (0-450) /uL unknown) (unknown) (no (unknown) (unknown) Eos # (Auto) 100 (units (unknown) date) (0-450) /uL unknown) (unknown) (no (unknown) (unknown) Eos % (Auto) (2-4) (units (unknown) date) % unknown) (unknown) (no (unknown) (unknown) Eos % (Auto) 1.0 L (units (unknown) date) (2-4) % unknown) (unknown) (no (unknown) (unknown) Estimated GFR > 60 (units (unknown) date) (>60) mL/min unknown) (unknown) (no (unknown) (unknown) Estimated GFR (units ( unknown) date) (>60) mL/min unknown) (unknown) (no (unknown) (unknown) Exam documented (units (unknown) date) above, pertinent unknown) findings include: Bradycardia with noted heart (unknown) (no (unknown) (unknown) Exam (units (unkno wn) date) unknown) (unknown) (no (unknown) (unknown) Extremities: No (units (unknown) date) trauma, well unknown) perfused, no lower extremity edema (unknown) (no (unknown) (unknown) FINDINGS:? (units (unk nown) date) unknown) (unknown) (no (unknown) (unknown) Fibromyalgia (units (u nknown) date) unknown) (unknown) (no (unknown) (unknown) Followed by (units (un known) date) Cardiology at unknown) Yudith Gonzalez. She reportedly has ?too bad (unknown) (no (unknown) (unknown) Full and (units (unkno wn) date) symmetrical air unknown) movement (unknown) (no (unknown) (unknown) [place]. (units (unkno wn) date) Recommendation is unknown) observation admission overnight to trend troponins, (unknown) (no (unknown) (unknown) General (units (unkno wn) date) unknown) (unknown) (no (unknown) (unknown) General: Frail (units (unknown) date) chronically unknown) ill-appearing but in no acute distress. Able to (unknown) (no (unknown) (unknown) Globulin (1.7-4.1) (units (unknown) date) g/dL unknown) (unknown) (no (unknown) (unknown) Globulin 3.3 (units (u nknown) date) (1.7-4.1) g/dL unknown) (unknown) (no (unknown) (unknown) Glucose (80-110) (units (unknown) date) mg/dL unknown) (unknown) (no (unknown) (unknown) Glucose 103 (units (un known) date) (80-110) mg/dL unknown) (unknown) (no (unknown) (unknown) HEENT: Moist (units (u nknown) date) mucous membranes, unknown) normal sclera with reactive pupils, (unknown) (no (unknown) (unknown) HPI - General (units ( unknown) date) Adult unknown) (unknown) (no (unknown) (unknown) HPI narrative: (units (unknown) date) unknown) (unknown) (no (unknown) (unknown) Hct (36-46) % (units ( unknown) date) unknown) (unknown) (no (unknown) (unknown) Hct 42.9 (36-46) % (units (unknown) date) unknown) (unknown) (no (unknown) (unknown) Hgb (12.0-16.0) (units (unknown) date) g/dL unknown) (unknown) (no (unknown) (unknown) Hgb 14.2 (units (unkno wn) date) (12.0-16.0) g/dL unknown) (unknown) (no (unknown) (unknown) History of Present (units (unknown) date) Illness unknown) (unknown) (no (unknown) (unknown) Home Medications (units (unknown) date) unknown) (unknown) (no (unknown) (unknown) Hypertension (units (u nknown) date) unknown) (unknown) (no (unknown) (unknown) Hypothyroidism (units (unknown) date) unknown) (unknown) (no (unknown) (unknown) IMPRESSION:? (units (u nknown) date) unknown) (unknown) (no (unknown) (unknown) INR (0.9-1.3) (units ( unknown) date) unknown) (unknown) (no (unknown) (unknown) INR 1.2 (0.9-1.3) (units (unknown) date) unknown) (unknown) (no (unknown) (unknown) Imaging Data (units (u nknown) date) unknown) (unknown) (no (unknown) (unknown) Imaging studies (units (unknown) date) independently unknown) reviewed: (unknown) (no (unknown) (unknown) Independently (units ( unknown) date) reviewed EKG as unknown) above (unknown) (no (unknown) (unknown) Initial Vital (units ( unknown) date) Signs unknown) (unknown) (no (unknown) (unknown) Initial Vital (units ( unknown) date) Signs: unknown) (unknown) (no (unknown) (unknown) Initial troponin (units (unknown) date) is 0.018 unknown) (unknown) (no (unknown) (unknown) Interpretation: (units (unknown) date) unknown) (unknown) (no (unknown) (unknown) [facility] (units (unknown) date) [address] unknown) [place] [address] (unknown) (no (unknown) (unknown) LVH with (units (unkno wn) date) repolarization unknown) abnormalities (unknown) (no (unknown) (unknown) Lab Data (units (unkno wn) date) unknown) (unknown) (no (unknown) (unknown) Lab Results (units (un known) date) unknown) (unknown) (no (unknown) (unknown) Lab Test results (units (unknown) date) independently unknown) reviewed as above. Pertinent findings: (unknown) (no (unknown) (unknown) Labs: (units (unkno wn) date) unknown) (unknown) (no (unknown) (unknown) Lipase (23-300) (units (unknown) date) U/L unknown) (unknown) (no (unknown) (unknown) Lipase 152 (units (unk nown) date) (23-300) U/L unknown) (unknown) (no (unknown) (unknown) Lipase Stat (units (un known) date) unknown) (unknown) (no (unknown) (unknown) Lungs and pleura:? (units (unknown) date) Lungs are clear.? unknown) No pleural effusions or pneumothorax.? (unknown) (no (unknown) (unknown) Lymph # (Auto) (units (unknown) date) (6977-9720) /uL unknown) (unknown) (no (unknown) (unknown) Lymph # (Auto) (units (unknown) date) 1700 (2287-8813) unknown) /uL (unknown) (no (unknown) (unknown) Lymph % (Auto) (units (unknown) date) (25-40) % unknown) (unknown) (no (unknown) (unknown) Lymph % (Auto) (units (unknown) date) 18.2 L (25-40) % unknown) (unknown) (no (unknown) (unknown) MCH (26-34) PG (units (unknown) date) unknown) (unknown) (no (unknown) (unknown) MCH 28.0 (26-34) (units (unknown) date) PG unknown) (unknown) (no (unknown) (unknown) MCHC (30-36) % (units (unknown) date) unknown) (unknown) (no (unknown) (unknown) MCHC 33.0 (30-36) (units (unknown) date) % unknown) (unknown) (no (unknown) (unknown) MCV (80-100) fL (units (unknown) date) unknown) (unknown) (no (unknown) (unknown) MCV 84.9 (80-100) (units (unknown) date) fL unknown) (unknown) (no (unknown) (unknown) MDM Narrative (units ( unknown) date) unknown) (unknown) (no (unknown) (unknown) Magnesium (units (unkn own) date) (1.6-2.3) mg/dL unknown) (unknown) (no (unknown) (unknown) Magnesium 1.9 (units ( unknown) date) (1.6-2.3) mg/dL unknown) (unknown) (no (unknown) (unknown) Magnesium Stat (units (unknown) date) unknown) (unknown) (no (unknown) (unknown) Mediastinum:? (units ( unknown) date) Mediastinal unknown) contours are unchanged, with enlargement of the (unknown) (no (unknown) (unknown) Medical Decision (units (unknown) date) Making unknown) (unknown) (no (unknown) (unknown) Medical History (units (unknown) date) (Updated 05/10/22 @ unknown) 00:19 by Joanna Monaco MD) (unknown) (no (unknown) (unknown) Medical decision (units (unknown) date) making narrative: unknown) (unknown) (no (unknown) (unknown) Medical records (units (unknown) date) reviewed: Hospital unknown) admission records reviewed as well as (unknown) (no (unknown) (unknown) Medication (units (unk nown) date) Instructions unknown) Recorded Confirmed (unknown) (no (unknown) (unknown) Medication (units (unk nown) date) Instructions unknown) Recorded (unknown) (no (unknown) (unknown) Mode of arrival: (units (unknown) date) Wheelchair unknown) (unknown) (no (unknown) (unknown) Mobile # (Auto) (units ( unknown) date) (0-900) /uL unknown) (unknown) (no (unknown) (unknown) Mobile # (Auto) 700 (units (unknown) date) (0-900) /uL unknown) (unknown) (no (unknown) (unknown) Mobile % (Auto) (units ( unknown) date) (3-14) % unknown) (unknown) (no (unknown) (unknown) Mobile % (Auto) 7.7 (units (unknown) date) (3-14) % unknown) (unknown) (no (unknown) (unknown) Myocardial (units (unk nown) date) infarction unknown) (unknown) (no (unknown) (unknown) Narrative: (units (unk nown) date) unknown) (unknown) (no (unknown) (unknown) Neck: No JVD, (units ( unknown) date) supple unknown) (unknown) (no (unknown) (unknown) Neurologic: (units (un known) date) Grossly unknown) neurologically intact with no obvious asymmetries or (unknown) (no (unknown) (unknown) Neut # (Auto) (units ( unknown) date) (6840-6520) /uL unknown) (unknown) (no (unknown) (unknown) Neut # (Auto) 6800 (units (unknown) date) (8936-3731) /uL unknown) (unknown) (no (unknown) (unknown) Neut % (Auto) (units ( unknown) date) (50-75) % unknown) (unknown) (no (unknown) (unknown) Neut % (Auto) 72.2 (units (unknown) date) (50-75) % unknown) (unknown) (no (unknown) (unknown) No significant (units (unknown) date) ischemic changes unknown) (unknown) (no (unknown) (unknown) Ordered: (units (unkno wn) date) unknown) (unknown) (no (unknown) (unknown) Orders (units (unkno wn) date) unknown) (unknown) (no (unknown) (unknown) Oxygen Delivery (units (unknown) date) Method 05/09/22 unknown) 21:41 (unknown) (no (unknown) (unknown) Oxygen Delivery (units (unknown) date) Method Room Air unknown) (unknown) (no (unknown) (unknown) Oxygen Delivery (units (unknown) date) Method unknown) (unknown) (no (unknown) (unknown) PT (10.1-12.7) (units (unknown) date) SECONDS unknown) (unknown) (no (unknown) (unknown) PT 13.5 H (units (unkn own) date) (10.1-12.7) SECONDS unknown) (unknown) (no (unknown) (unknown) Partial (units (unkno wn) date) Thromboplastin Time unknown) Stat (unknown) (no (unknown) (unknown) Patient (units (unkno wn) date) Disposition: unknown) Admitted as Observation (unknown) (no (unknown) (unknown) Patient History (units (unknown) date) unknown) (unknown) (no (unknown) (unknown) Patient: (units (unkno wn) date) [place] unknown) MR#: [id number] (unknown) (no (unknown) (unknown) Plt Count (units (unkn own) date) (150-400) X103/uL unknown) (unknown) (no (unknown) (unknown) Plt Count 328 (units ( unknown) date) (150-400) X103/uL unknown) (unknown) (no (unknown) (unknown) Potassium (units (unkn own) date) (3.4-5.1) mmol/L unknown) (unknown) (no (unknown) (unknown) Potassium 4.4 (units ( unknown) date) (3.4-5.1) mmol/L unknown) (unknown) (no (unknown) (unknown) Previous Rx's (units ( unknown) date) unknown) (unknown) (no (unknown) (unknown) Prothrombin Time (units (unknown) date) INR Stat unknown) (unknown) (no (unknown) (unknown) [place] (units (unk nown) date) [place]. Will unknown) discuss admission with the hospitalist service (unknown) (no (unknown) (unknown) [place] effort (units (unknown) date) admit in February unknown) of this year with her cardiac event. (unknown) (no (unknown) (unknown) Psych: (units (unkno wn) date) Cooperative, unknown) appropriate insight and affect (unknown) (no (unknown) (unknown) Pulse Oximetry 100 (units (unknown) date) 05/09/22 21:41 unknown) (unknown) (no (unknown) (unknown) Pulse Oximetry 100 (units (unknown) date) unknown) (unknown) (no (unknown) (unknown) Pulse Oximetry 96 (units (unknown) date) 96 unknown) (unknown) (no (unknown) (unknown) Pulse Oximetry 96 (units (unknown) date) unknown) (unknown) (no (unknown) (unknown) Pulse Oximetry 97 (units (unknown) date) 97 unknown) (unknown) (no (unknown) (unknown) Pulse Oximetry 97 (units (unknown) date) unknown) (unknown) (no (unknown) (unknown) Pulse Oximetry 98 (units (unknown) date) unknown) (unknown) (no (unknown) (unknown) Pulse Oximetry 99 (units (unknown) date) 98 97 unknown) (unknown) (no (unknown) (unknown) Pulse Rate 41 L 41 (units (unknown) date) L unknown) (unknown) (no (unknown) (unknown) Pulse Rate 41 L (units (unknown) date) unknown) (unknown) (no (unknown) (unknown) Pulse Rate 42 L 43 (units (unknown) date) L 43 L unknown) (unknown) (no (unknown) (unknown) Pulse Rate 43 L 45 (units (unknown) date) L unknown) (unknown) (no (unknown) (unknown) Pulse Rate 44 L (units (unknown) date) 05/09/22 21:41 unknown) (unknown) (no (unknown) (unknown) Pulse Rate 44 L 43 (units (unknown) date) L unknown) (unknown) (no (unknown) (unknown) Pulse Rate 45 L (units (unknown) date) unknown) (unknown) (no (unknown) (unknown) QTC elongated at (units (unknown) date) 494 milliseconds unknown) (unknown) (no (unknown) (unknown) RBC (4.0-5.2) (units ( unknown) date) X106/uL unknown) (unknown) (no (unknown) (unknown) RBC 5.06 (4.0-5.2) (units (unknown) date) X106/uL unknown) (unknown) (no (unknown) (unknown) RDW (11.6-14.8) % (units (unknown) date) unknown) (unknown) (no (unknown) (unknown) RDW 15.0 H (units (unk nown) date) (11.6-14.8) % unknown) (unknown) (no (unknown) (unknown) Radiologist's (units ( unknown) date) Impression: unknown) (unknown) (no (unknown) (unknown) Re-evaluations: (units (unknown) date) Patient is unknown) re-evaluated after discussion with Cardiology. (unknown) (no (unknown) (unknown) Regarding record (units (unknown) date) request: She was unknown) boarded in the emergency department in (unknown) (no (unknown) (unknown) Related Data (units (u nknown) date) unknown) (unknown) (no (unknown) (unknown) Remainder of (units (u nknown) date) complete review of unknown) systems is otherwise unremarkable except for (unknown) (no (unknown) (unknown) Respiratory Rate (units (unknown) date) 18 05/09/22 21:41 unknown) (unknown) (no (unknown) (unknown) Respiratory Rate (units (unknown) date) 18 44 H unknown) (unknown) (no (unknown) (unknown) Respiratory Rate (units (unknown) date) 20 19 unknown) (unknown) (no (unknown) (unknown) Respiratory Rate (units (unknown) date) 22 unknown) (unknown) (no (unknown) (unknown) Respiratory Rate (units (unknown) date) 23 unknown) (unknown) (no (unknown) (unknown) Respiratory Rate (units (unknown) date) 42 H 42 H unknown) (unknown) (no (unknown) (unknown) Respiratory Rate (units (unknown) date) 43 H 12 14 unknown) (unknown) (no (unknown) (unknown) Respiratory Rate (units (unknown) date) 43 H unknown) (unknown) (no (unknown) (unknown) Respiratory: Lungs (units (unknown) date) are clear to unknown) auscultation, no wheezing no rales no rhonchi. (unknown) (no (unknown) (unknown) Restrictive lung (units (unknown) date) disease unknown) (unknown) (no (unknown) (unknown) Review of Systems (units (unknown) date) unknown) (unknown) (no (unknown) (unknown) SARS-CoV-2 (PCR) (units (unknown) date) (Negative) unknown) (unknown) (no (unknown) (unknown) SARS-CoV-2 (PCR) (units (unknown) date) Negative (Negative) unknown) (unknown) (no (unknown) (unknown) She has (units (unkno wn) date) dramatically unknown) limited her overall activity levels because of this. She (unknown) (no (unknown) (unknown) Signed By: (units (unk nown) date) unknown) (unknown) (no (unknown) (unknown) Sinus bradycardia (units (unknown) date) at a rate of 44 unknown) (unknown) (no (unknown) (unknown) Skin: Warm and (units (unknown) date) dry, no rashes unknown) (unknown) (no (unknown) (unknown) Smoking Status: (units (unknown) date) Former smoker unknown) (unknown) (no (unknown) (unknown) Social History (units (unknown) date) (Reviewed 03/23/22 unknown) @ 16:07 by Liam Colón MD) (unknown) (no (unknown) (unknown) Social (units (unkno wn) date) determinants of unknown) health that may influence the patients condition: (unknown) (no (unknown) (unknown) Sodium (137-145) (units (unknown) date) mmol/L unknown) (unknown) (no (unknown) (unknown) Sodium 135 L (units (u nknown) date) (137-145) mmol/L unknown) (unknown) (no (unknown) (unknown) Source: patient (units (unknown) date) unknown) (unknown) (no (unknown) (unknown) Stated complaint: (units (unknown) date) heart is unknown) fluctuating, uncontrolled temperature (unknown) (no (unknown) (unknown) Status post hip (units (unknown) date) surgery unknown) (unknown) (no (unknown) (unknown) Stop: 05/09/22 (units (unknown) date) 22:05 unknown) (unknown) (no (unknown) (unknown) 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 unknown) None.? (unknown) (no (unknown) (unknown) Temperature 98 F (units (unknown) date) 05/09/22 21:41 unknown) (unknown) (no (unknown) (unknown) Temperature 98 F (units (unknown) date) unknown) (unknown) (no (unknown) (unknown) Temperature (units (un known) date) unknown) (unknown) (no (unknown) (unknown) Time Seen by (units (u nknown) date) Provider: 05/09/22 unknown) 23:53 (unknown) (no (unknown) (unknown) Total Bilirubin (units (unknown) date) (0.2-1.3) mg/dL unknown) (unknown) (no (unknown) (unknown) Total Bilirubin (units (unknown) date) 0.8 (0.2-1.3) mg/dL unknown) (unknown) (no (unknown) (unknown) Total Creatine (units (unknown) date) Kinase (30-135) U/L unknown) (unknown) (no (unknown) (unknown) Total Creatine (units (unknown) date) Kinase 44 (30-135) unknown) U/L (unknown) (no (unknown) (unknown) Total Protein (units ( unknown) date) (6.3-8.2) g/dL unknown) (unknown) (no (unknown) (unknown) Total Protein 7.7 (units (unknown) date) (6.3-8.2) g/dL unknown) (unknown) (no (unknown) (unknown) Treatments: She is (units (unknown) date) given aspirin, unknown) metoprolol is held (unknown) (no (unknown) (unknown) Troponin + CK (units ( unknown) date) Cardiac Panel Stat unknown) (unknown) (no (unknown) (unknown) Troponin I (units (unk nown) date) (0.01-0.034) ng/mL unknown) (unknown) (no (unknown) (unknown) Troponin I 0.018 (units (unknown) date) (0.01-0.034) ng/mL unknown) (unknown) (no (unknown) (unknown) Unclear when last (units (unknown) date) TSH has been unknown) checked will add today. Will also add BNP. (unknown) (no (unknown) (unknown) Understands need (units (unknown) date) for hospitalization unknown) and observation. We will continue to (unknown) (no (unknown) (unknown) Vital Signs - 8 hr (units (unknown) date) unknown) (unknown) (no (unknown) (unknown) Vital Signs (units (un known) date) unknown) (unknown) (no (unknown) (unknown) Vital signs: (units (u nknown) date) unknown) (unknown) (no (unknown) (unknown) WBC (4.5-11.0) (units (unknown) date) X103/uL unknown) (unknown) (no (unknown) (unknown) WBC 9.4 (4.5-11.0) (units (unknown) date) X103/uL unknown) (unknown) (no (unknown) (unknown) XR chest 1V Stat (units (unknown) date) unknown) (unknown) (no (unknown) (unknown) [Embedded Image (units (unknown) date) Not Available] unknown) (unknown) (no (unknown) (unknown) [From [facility]] (units ( unknown) date) unknown) (unknown) (no (unknown) (unknown) abnormalities (units ( unknown) date) unknown) (unknown) (no (unknown) (unknown) additional (units (unk nown) date) outpatient follow unknown) up (unknown) (no (unknown) (unknown) adhesive tape (units ( unknown) date) AdvReac Verified unknown) 05/09/22 21:46 (unknown) (no (unknown) (unknown) after TX with (units ( unknown) date) metoprolol and unknown) complains of low energy with exertional (unknown) (no (unknown) (unknown) alcohol intake (units (unknown) date) frequency: 0-2 unknown) drinks per day (unknown) (no (unknown) (unknown) alcohol intake: (units (unknown) date) current unknown) (unknown) (no (unknown) (unknown) angina/shortness (units (unknown) date) of breath that unknown) resolves with nitroglycerin. Over the last 24 (unknown) (no (unknown) (unknown) aortic contour (units (unknown) date) consistent with an unknown) ascending aortic aneurysm seen on the prior (unknown) (no (unknown) (unknown) appear (units (unkno wn) date) unknown) (unknown) (no (unknown) (unknown) appreciated (units (un known) date) unknown) (unknown) (no (unknown) (unknown) around (units (unkno wn) date) Thanksgiving. Will unknown) ask [facility] for their records. (unknown) (no (unknown) (unknown) ascending (units (unkn own) date) unknown) (unknown) (no (unknown) (unknown) been reviewed with (units (unknown) date) patient as well as unknown) indications for ED re-evaluation and (unknown) (no (unknown) (unknown) call consultation (units (unknown) date) with Cardiology unknown) prior to discharge and agrees with cutting (unknown) (no (unknown) (unknown) cholecalciferol (units (unknown) date) (vitamin D3) 50 50 unknown) mcg PO DAILY 03/25/22 03/25/22 (unknown) (no (unknown) (unknown) closely coordinate (units (unknown) date) outpatient unknown) discharge(presuming heart rate comes up and she is (unknown) (no (unknown) (unknown) diazepam 10 mg (units (unknown) date) tablet (Valium) 10 unknown) mg PO BEDTIME 03/25/22 03/25/22 (unknown) (no (unknown) (unknown) dissection, (units (un known) date) pneumothorax. unknown) Possibility of viral infection, bacterial infection (unknown) (no (unknown) (unknown) extremity edema, (units (unknown) date) headaches but unknown) overall general malaise and fatigue. (unknown) (no (unknown) (unknown) feeling better (units (unknown) date) with an unchanged unknown) echocardiogram). Have requested records from (unknown) (no (unknown) (unknown) fentanyl 75 mcg/hr (units (unknown) date) transdermal 75 mcg unknown) transdermal 3XD pain 03/23/22 03/23/22 (unknown) (no (unknown) (unknown) fibrosis, diabetes (units (unknown) date) with myocardial unknown) infarction in February of 2022 and then (unknown) (no (unknown) (unknown) fluoxetine 40 mg (units (unknown) date) capsule (Prozac) 40 unknown) mg PO DAILY ##0 11/29/12 03/25/22 (unknown) (no (unknown) (unknown) for further (units (un known) date) evaluation. She unknown) reports no overt fevers, cough, orthopnea, lower (unknown) (no (unknown) (unknown) future. In the (units (unknown) date) meantime she unknown) complains that she can feel her heartbeat and it is (unknown) (no (unknown) (unknown) give a complete (units (unknown) date) and coherent unknown) history. Well-nourished well-developed (unknown) (no (unknown) (unknown) hours she is had (units (unknown) date) chills and unknown) significantly increased fatigue. She does note that (unknown) (no (unknown) (unknown) household members: (units (unknown) date) significant other unknown) (unknown) (no (unknown) (unknown) lamotrigine 100 mg (units (unknown) date) tablet 100 mg PO unknown) BEDTIME 03/25/22 03/25/22 (unknown) (no (unknown) (unknown) lamotrigine 100 mg (units (unknown) date) tablet 50 mg PO unknown) DAILY 03/25/22 03/25/22 (unknown) (no (unknown) (unknown) levothyroxine 75 (units (unknown) date) mcg tablet 75 mcg unknown) PO DAILY 03/25/22 03/25/22 (unknown) (no (unknown) (unknown) mcg (2,000 unit) (units (unknown) date) tablet unknown) (unknown) (no (unknown) (unknown) medication side (units (unknown) date) effects, worsening unknown) cardiac angina, severe anemia, thyroid abno (unknown) (no (unknown) (unknown) metoprolol after (units (unknown) date) her NSTEMI, unknown) worsening exertional angina (unknown) (no (unknown) (unknown) metoprolol dose in (units (unknown) date) and adding 2.5 mg unknown) of amlodipine for treating her anginal (unknown) (no (unknown) (unknown) metoprolol (units (unk nown) date) tartrate 50 mg unknown) tablet 50 mg PO BID 03/25/22 03/25/22 (unknown) (no (unknown) (unknown) mg tablet (units (unkn own) date) (Percocet) 4-6) unknown) (unknown) (no (unknown) (unknown) murmurs, no (units (un known) date) significant unknown) evidence of volume overload clinically (unknown) (no (unknown) (unknown) nitroglycerin that (units (unknown) date) is getting more unknown) frequent and more intense with the episodes. (unknown) (no (unknown) (unknown) oxycodone 5 mg (units (unknown) date) tablet 5 mg PO Q4HR unknown) PRN Pain, Moderate 03/28/22 (unknown) (no (unknown) (unknown) oxycodone-acetamin (units (unknown) date) ophen 5 mg-325 1 unknown) tab PO Q6H PRN Pain (Scale Score 03/25/22 (unknown) (no (unknown) (unknown) patch (units (unkno wn) date) unknown) (unknown) (no (unknown) (unknown) records from (units (u nknown) date) [facility] unknown) [facility]. I have requested hospital records from (unknown) (no (unknown) (unknown) repeat (units (unkno wn) date) echocardiogram, unknown) hold metoprolol and re-evaluate. He recommended phone (unknown) (no (unknown) (unknown) rmalities after (units (unknown) date) multiple acute unknown) issues in the last 3 months, no evidence of (unknown) (no (unknown) (unknown) she is supposed to (units (unknown) date) be scheduled for a unknown) cardiac catheterization in the near (unknown) (no (unknown) (unknown) size is enlarged. (units (unknown) date) unknown) (unknown) (no (unknown) (unknown) subsequent hip (units (unknown) date) surgery after unknown) falling sustaining a hip fracture in March. (unknown) (no (unknown) (unknown) substance use (units ( unknown) date) type: does not use unknown) (unknown) (no (unknown) (unknown) sulfamethoxazole (units (unknown) date) Allergy Verified unknown) 05/09/22 21:46 (unknown) (no (unknown) (unknown) symptoms while not (units (unknown) date) exacerbating her unknown) bradycardia. (unknown) (no (unknown) (unknown) talked to her (units ( unknown) date) cardiology office unknown) earlier today and they recommended she come in (unknown) (no (unknown) (unknown) that included in (units (unknown) date) the HPI. unknown) (unknown) (no (unknown) (unknown) trimethoprim [From (units (unknown) date) [facility]] Allergy unknown) Verified 05/09/22 21:46 (unknown) (no (unknown) (unknown) unremarkable.? (units (unknown) date) unknown) (unknown) (no (unknown) (unknown) valves and an (units ( unknown) date) aortic aneurysm unknown) that they are watching?. She was discharged home (unknown) (no (unknown) (unknown) very slow, that (units (unknown) date) she is having unknown) significant exertional angina that responds to (unknown) (no (unknown) (unknown) vitamin B complex (units (unknown) date) 1 tab PO DAILY unknown) 03/25/22 03/25/22 (unknown) (no (unknown) (unknown) vitamin E 400 unit (units (unknown) date) tablet 1 unit PO unknown) DAILY 03/25/22 03/25/22 Result panel 233 (unknown) (no (unknown) (unknown) (no value) (units (unk nown) date) unknown) (unknown) (no (unknown) (unknown) <Electronically (units (unknown) date) signed by Joanna Hidalgo unknown) MD Carlos Enrique> (unknown) (no (unknown) (unknown) (4-6) #30 tabs (units (unknown) date) unknown) (unknown) (no (unknown) (unknown) (Lamictal) (units (unk nown) date) unknown) (unknown) (no (unknown) (unknown) 00:00 05/10/22 (units (unknown) date) unknown) (unknown) (no (unknown) (unknown) 00:30 05/10/22 (units (unknown) date) unknown) (unknown) (no (unknown) (unknown) 00:30 (units (unkno wn) date) unknown) (unknown) (no (unknown) (unknown) 05/09/22 05/09/22 (units (unknown) date) 05/09/22 unknown) Range/Units (unknown) (no (unknown) (unknown) 05/09/22 21:59 (units (unknown) date) unknown) (unknown) (no (unknown) (unknown) 05/09/22 22:04 (units (unknown) date) unknown) (unknown) (no (unknown) (unknown) 05/09/22 22:05 (units (unknown) date) unknown) (unknown) (no (unknown) (unknown) 05/09/22 (units (unkno wn) date) Range/Units unknown) (unknown) (no (unknown) (unknown) 05/09/22 (units (unkno wn) date) unknown) (unknown) (no (unknown) (unknown) 05/10/22 0138 (units ( unknown) date) unknown) (unknown) (no (unknown) (unknown) 05/10/22 01:34 (units (unknown) date) unknown) (unknown) (no (unknown) (unknown) 05/10/22 (units (unkno wn) date) unknown) (unknown) (no (unknown) (unknown) 01:00 05/10/22 (units (unknown) date) unknown) (unknown) (no (unknown) (unknown) 01:01 (units (unkno wn) date) unknown) (unknown) (no (unknown) (unknown) [id number] (units (unkno wn) date) unknown) (unknown) (no (unknown) (unknown) 1. No acute (units (un known) date) cardiopulmonary unknown) disease. (unknown) (no (unknown) (unknown) 03/25/22 (units (unkno wn) date) unknown) (unknown) (no (unknown) (unknown) 2. Aneurysmal (units ( unknown) date) dilatation of the unknown) ascending thoracic aorta redemonstrated.? (unknown) (no (unknown) (unknown) 21:41 05/09/22 (units (unknown) date) unknown) (unknown) (no (unknown) (unknown) 21:59 21:59 21:59 (units (unknown) date) unknown) (unknown) (no (unknown) (unknown) 22:00 05/09/22 (units (unknown) date) unknown) (unknown) (no (unknown) (unknown) 22:01 05/09/22 (units (unknown) date) unknown) (unknown) (no (unknown) (unknown) 22:01 (units (unkno wn) date) unknown) (unknown) (no (unknown) (unknown) 22:05 (units (unkno wn) date) unknown) (unknown) (no (unknown) (unknown) 22:30 05/09/22 (units (unknown) date) unknown) (unknown) (no (unknown) (unknown) 22:31 05/09/22 (units (unknown) date) unknown) (unknown) (no (unknown) (unknown) 22:31 (units (unkno wn) date) unknown) (unknown) (no (unknown) (unknown) 23:00 05/09/22 (units (unknown) date) unknown) (unknown) (no (unknown) (unknown) 23:00 (units (unkno wn) date) unknown) (unknown) (no (unknown) (unknown) 23:30 05/09/22 (units (unknown) date) unknown) (unknown) (no (unknown) (unknown) 23:31 05/09/22 (units (unknown) date) unknown) (unknown) (no (unknown) (unknown) 23:31 (units (unkno wn) date) unknown) (unknown) (no (unknown) (unknown) 72-year-old woman (units (unknown) date) with a history of unknown) epilepsy, fibromyalgia, idiopathic pulmonary (unknown) (no (unknown) (unknown) ? (units (unkno wn) date) unknown) (unknown) (no (unknown) (unknown) ALT (<35) IU/L (units (unknown) date) unknown) (unknown) (no (unknown) (unknown) ALT 17 (<35) IU/L (units (unknown) date) unknown) (unknown) (no (unknown) (unknown) APTT (26-36) (units (u nknown) date) SECONDS unknown) (unknown) (no (unknown) (unknown) APTT 50 H (26-36) (units (unknown) date) SECONDS unknown) (unknown) (no (unknown) (unknown) AST (14-36) IU/L (units (unknown) date) unknown) (unknown) (no (unknown) (unknown) AST 26 (14-36) (units (unknown) date) IU/L unknown) (unknown) (no (unknown) (unknown) Abdomen: Soft, (units (unknown) date) nontender, good unknown) bowel tones, no flank pain (unknown) (no (unknown) (unknown) Age/Sex: 72 / F (units (unknown) date) unknown) (unknown) (no (unknown) (unknown) Albumin (3.5-5.0) (units (unknown) date) g/dL unknown) (unknown) (no (unknown) (unknown) Albumin 4.4 (units (un known) date) (3.5-5.0) g/dL unknown) (unknown) (no (unknown) (unknown) Albumin/Globulin (units (unknown) date) Ratio (1.0-2.8) unknown) (unknown) (no (unknown) (unknown) Albumin/Globulin (units (unknown) date) Ratio 1.3 (1.0-2.8) unknown) (unknown) (no (unknown) (unknown) Alkaline (units (unkno wn) date) Phosphatase unknown) (38-126) U/L (unknown) (no (unknown) (unknown) Alkaline (units (unkno wn) date) Phosphatase 109 unknown) (38-126) U/L (unknown) (no (unknown) (unknown) Allergies (units (unkn own) date) unknown) (unknown) (no (unknown) (unknown) Allergy/AdvReac (units (unknown) date) Type Severity unknown) Reaction Status Date / Time (unknown) (no (unknown) (unknown) Aspirin (Aspirin (units (unknown) date) 81 Mg Chew Tab) 324 unknown) mg PO NOW ONE (unknown) (no (unknown) (unknown) BUN (7-17) mg/dL (units (unknown) date) unknown) (unknown) (no (unknown) (unknown) BUN 27 H (7-17) (units (unknown) date) mg/dL unknown) (unknown) (no (unknown) (unknown) BUN/Creatinine (units (unknown) date) Ratio (6-22) unknown) (unknown) (no (unknown) (unknown) BUN/Creatinine (units (unknown) date) Ratio 31.0 H (6-22) unknown) (unknown) (no (unknown) (unknown) Baso # (Auto) (units ( unknown) date) (0-100) /uL unknown) (unknown) (no (unknown) (unknown) Baso # (Auto) 100 (units (unknown) date) (0-100) /uL unknown) (unknown) (no (unknown) (unknown) Baso % (Auto) (units ( unknown) date) (0-2) % unknown) (unknown) (no (unknown) (unknown) Baso % (Auto) 0.9 (units (unknown) date) (0-2) % unknown) (unknown) (no (unknown) (unknown) Blood Pressure (units (unknown) date) 114/49 L 115/52 L unknown) (unknown) (no (unknown) (unknown) Blood Pressure (units (unknown) date) 122/56 L unknown) (unknown) (no (unknown) (unknown) Blood Pressure (units (unknown) date) 123/51 L 05/09/22 unknown) 21:41 (unknown) (no (unknown) (unknown) Blood Pressure (units (unknown) date) 123/51 L 129/56 L unknown) (unknown) (no (unknown) (unknown) Blood Pressure (units (unknown) date) 127/58 L 131/56 L unknown) (unknown) (no (unknown) (unknown) Blood Pressure (units (unknown) date) 142/59 H unknown) (unknown) (no (unknown) (unknown) Blood Pressure (units (unknown) date) unknown) (unknown) (no (unknown) (unknown) Bones and chest (units (unknown) date) wall:? No unknown) suspicious bony lesions.? Overlying soft tissues (unknown) (no (unknown) (unknown) Bradycardia, (units (u nknown) date) Fatigue, Exertional unknown) angina, Chronic idiopathic pulmonary fibrosis (unknown) (no (unknown) (unknown) CBC is (units (unkno wn) date) unremarkable unknown) without signs of leukocytosis or significant anemia (unknown) (no (unknown) (unknown) CC: Increased (units ( unknown) date) fatigue and slow unknown) heart rate (unknown) (no (unknown) (unknown) CK-MB (CK-2) Rel (units (unknown) date) Index TNP unknown) (unknown) (no (unknown) (unknown) CK-MB (CK-2) Rel (units (unknown) date) Index unknown) (unknown) (no (unknown) (unknown) CK-MB (CK-2) TNP (units (unknown) date) unknown) (unknown) (no (unknown) (unknown) CK-MB (CK-2) (units (u nknown) date) unknown) (unknown) (no (unknown) (unknown) COVID19 -Nasal (units (unknown) date) RAPID/Pre-Proc Stat unknown) (unknown) (no (unknown) (unknown) CT.? Heart (units (unk nown) date) unknown) (unknown) (no (unknown) (unknown) Calcium (8.4-10.2) (units (unknown) date) mg/dL unknown) (unknown) (no (unknown) (unknown) Calcium 9.4 (units (un known) date) (8.4-10.2) mg/dL unknown) (unknown) (no (unknown) (unknown) Carbon Dioxide (units (unknown) date) (22-32) mmol/L unknown) (unknown) (no (unknown) (unknown) Carbon Dioxide 27 (units (unknown) date) (22-32) mmol/L unknown) (unknown) (no (unknown) (unknown) Cardiac: (units (unkno wn) date) Bradycardic with unknown) 3/6 systolic murmur and 2/6 diastolic murmur (unknown) (no (unknown) (unknown) Chemistries are (units (unknown) date) unremarkable with unknown) normal renal function (unknown) (no (unknown) (unknown) Chest x-ray does (units (unknown) date) not show overt unknown) heart failure, aortic and reason is again (unknown) (no (unknown) (unknown) Chest x-ray: (units (u nknown) date) unknown) (unknown) (no (unknown) (unknown) Chief complaint: (units (unknown) date) Weakness unknown) (unknown) (no (unknown) (unknown) Chloride (98-107) (units (unknown) date) mmol/L unknown) (unknown) (no (unknown) (unknown) Chloride 97 L (units ( unknown) date) (98-107) mmol/L unknown) (unknown) (no (unknown) (unknown) Clinical (units (unkno wn) date) Impression: unknown) (unknown) (no (unknown) (unknown) Complete Blood (units (unknown) date) Count AUTO DIFF unknown) Stat (unknown) (no (unknown) (unknown) Complicating (units (u nknown) date) co-morbidities: unknown) Recent NSTEMI, hip fracture, addition of (unknown) (no (unknown) (unknown) Comprehensive (units ( unknown) date) Metabolic Panel unknown) Stat (unknown) (no (unknown) (unknown) Consultations: (units (unknown) date) Radha, cardiology unknown) at [facility] and partner to (unknown) (no (unknown) (unknown) Continues to be (units (unknown) date) bradycardic, not unknown) having any pain or dyspnea at rest. (unknown) (no (unknown) (unknown) [place] for 3 (units (unknown) date) days without actual unknown) transfer to [place] [facility] with event (unknown) (no (unknown) (unknown) Corroborating (units ( unknown) date) data: unknown) (unknown) (no (unknown) (unknown) Course (units (unkno wn) date) unknown) (unknown) (no (unknown) (unknown) Creatinine (units (unk nown) date) (0.52-1.04) mg/dL unknown) (unknown) (no (unknown) (unknown) Creatinine 0.87 (units (unknown) date) (0.52-1.04) mg/dL unknown) (unknown) (no (unknown) (unknown) : 1950 (units (unknown) date) Acct:[id number] unknown) (unknown) (no (unknown) (unknown) Data collected (units (unknown) date) from: patient, unknown) (unknown) (no (unknown) (unknown) Date of Service: (units (unknown) date) 05/09/22 unknown) (unknown) (no (unknown) (unknown) Departure (units (unkn own) date) unknown) (unknown) (no (unknown) (unknown) Dictated by: (units (u nknown) date) Ray Harris, unknown) [place] on 05/09/2022 at 23:08 ? ? 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, (unknown) (no (unknown) (unknown) Discharge Plan (units (unknown) date) unknown) (unknown) (no (unknown) (unknown) Discontinued (units (u nknown) date) Medications unknown) (unknown) (no (unknown) (unknown) Disposition: see (units (unknown) date) below unknown) (unknown) (no (unknown) (unknown) ECG Data (units (unkno wn) date) unknown) (unknown) (no (unknown) (unknown) ED Orders (units (unkn own) date) unknown) (unknown) (no (unknown) (unknown) EKG-12 Lead Stat (units (unknown) date) unknown) (unknown) (no (unknown) (unknown) ER Physician: (units ( unknown) date) Joanna Monaco MD unknown) (unknown) (no (unknown) (unknown) Emergency Report (units (unknown) date) unknown) (unknown) (no (unknown) (unknown) Eos # (Auto) (units (u nknown) date) (0-450) /uL unknown) (unknown) (no (unknown) (unknown) Eos # (Auto) 100 (units (unknown) date) (0-450) /uL unknown) (unknown) (no (unknown) (unknown) Eos % (Auto) (2-4) (units (unknown) date) % unknown) (unknown) (no (unknown) (unknown) Eos % (Auto) 1.0 L (units (unknown) date) (2-4) % unknown) (unknown) (no (unknown) (unknown) Estimated GFR > 60 (units (unknown) date) (>60) mL/min unknown) (unknown) (no (unknown) (unknown) Estimated GFR (units ( unknown) date) (>60) mL/min unknown) (unknown) (no (unknown) (unknown) Exam documented (units (unknown) date) above, pertinent unknown) findings include: Bradycardia with noted heart (unknown) (no (unknown) (unknown) Exam (units (unkno wn) date) unknown) (unknown) (no (unknown) (unknown) Extremities: No (units (unknown) date) trauma, well unknown) perfused, no lower extremity edema (unknown) (no (unknown) (unknown) FINDINGS:? (units (unk nown) date) unknown) (unknown) (no (unknown) (unknown) Fibromyalgia (units (u nknown) date) unknown) (unknown) (no (unknown) (unknown) Followed by (units (un known) date) Cardiology at unknown) [facility]. She reportedly has ?too bad (unknown) (no (unknown) (unknown) Full and (units (unkno wn) date) symmetrical air unknown) movement (unknown) (no (unknown) (unknown) [place]. (units (unkno wn) date) Recommendation is unknown) observation admission overnight to trend troponins, (unknown) (no (unknown) (unknown) General (units (unkno wn) date) unknown) (unknown) (no (unknown) (unknown) General: Frail (units (unknown) date) chronically unknown) ill-appearing but in no acute distress. Able to (unknown) (no (unknown) (unknown) Globulin (1.7-4.1) (units (unknown) date) g/dL unknown) (unknown) (no (unknown) (unknown) Globulin 3.3 (units (u nknown) date) (1.7-4.1) g/dL unknown) (unknown) (no (unknown) (unknown) Glucose (80-110) (units (unknown) date) mg/dL unknown) (unknown) (no (unknown) (unknown) Glucose 103 (units (un known) date) (80-110) mg/dL unknown) (unknown) (no (unknown) (unknown) HEENT: Moist (units (u nknown) date) mucous membranes, unknown) normal sclera with reactive pupils, (unknown) (no (unknown) (unknown) HPI - General (units ( unknown) date) Adult unknown) (unknown) (no (unknown) (unknown) HPI narrative: (units (unknown) date) unknown) (unknown) (no (unknown) (unknown) Hct (36-46) % (units ( unknown) date) unknown) (unknown) (no (unknown) (unknown) Hct 42.9 (36-46) % (units (unknown) date) unknown) (unknown) (no (unknown) (unknown) Hgb (12.0-16.0) (units (unknown) date) g/dL unknown) (unknown) (no (unknown) (unknown) Hgb 14.2 (units (unkno wn) date) (12.0-16.0) g/dL unknown) (unknown) (no (unknown) (unknown) History of Present (units (unknown) date) Illness unknown) (unknown) (no (unknown) (unknown) Home Medications (units (unknown) date) unknown) (unknown) (no (unknown) (unknown) Hypertension (units (u nknown) date) unknown) (unknown) (no (unknown) (unknown) Hypothyroidism (units (unknown) date) unknown) (unknown) (no (unknown) (unknown) IMPRESSION:? (units (u nknown) date) unknown) (unknown) (no (unknown) (unknown) INR (0.9-1.3) (units ( unknown) date) unknown) (unknown) (no (unknown) (unknown) INR 1.2 (0.9-1.3) (units (unknown) date) unknown) (unknown) (no (unknown) (unknown) Imaging Data (units (u nknown) date) unknown) (unknown) (no (unknown) (unknown) Imaging studies (units (unknown) date) independently unknown) reviewed: (unknown) (no (unknown) (unknown) Independently (units ( unknown) date) reviewed EKG as unknown) above (unknown) (no (unknown) (unknown) Initial Vital (units ( unknown) date) Signs unknown) (unknown) (no (unknown) (unknown) Initial Vital (units ( unknown) date) Signs: unknown) (unknown) (no (unknown) (unknown) Initial troponin (units (unknown) date) is 0.018 unknown) (unknown) (no (unknown) (unknown) Interpretation: (units (unknown) date) unknown) (unknown) (no (unknown) (unknown) [facility] (units (unknown) date) [address] [place] [address] unknown) [place] [address] (unknown) (no (unknown) (unknown) LVH with (units (unkno wn) date) repolarization unknown) abnormalities (unknown) (no (unknown) (unknown) Lab Data (units (unkno wn) date) unknown) (unknown) (no (unknown) (unknown) Lab Results (units (un known) date) unknown) (unknown) (no (unknown) (unknown) Lab Test results (units (unknown) date) independently unknown) reviewed as above. Pertinent findings: (unknown) (no (unknown) (unknown) Labs: (units (unkno wn) date) unknown) (unknown) (no (unknown) (unknown) Lipase (23-300) (units (unknown) date) U/L unknown) (unknown) (no (unknown) (unknown) Lipase 152 (units (unk nown) date) (23-300) U/L unknown) (unknown) (no (unknown) (unknown) Lipase Stat (units (un known) date) unknown) (unknown) (no (unknown) (unknown) Lungs and pleura:? (units (unknown) date) Lungs are clear.? unknown) No pleural effusions or pneumothorax.? (unknown) (no (unknown) (unknown) Lymph # (Auto) (units (unknown) date) (3936-8683) /uL unknown) (unknown) (no (unknown) (unknown) Lymph # (Auto) (units (unknown) date) 1700 ([id number]) unknown) /uL (unknown) (no (unknown) (unknown) Lymph % (Auto) (units (unknown) date) (25-40) % unknown) (unknown) (no (unknown) (unknown) Lymph % (Auto) (units (unknown) date) 18.2 L (25-40) % unknown) (unknown) (no (unknown) (unknown) MCH (26-34) PG (units (unknown) date) unknown) (unknown) (no (unknown) (unknown) MCH 28.0 (26-34) (units (unknown) date) PG unknown) (unknown) (no (unknown) (unknown) MCHC (30-36) % (units (unknown) date) unknown) (unknown) (no (unknown) (unknown) MCHC 33.0 (30-36) (units (unknown) date) % unknown) (unknown) (no (unknown) (unknown) MCV (80-100) fL (units (unknown) date) unknown) (unknown) (no (unknown) (unknown) MCV 84.9 (80-100) (units (unknown) date) fL unknown) (unknown) (no (unknown) (unknown) MDM Narrative (units ( unknown) date) unknown) (unknown) (no (unknown) (unknown) Magnesium (units (unkn own) date) (1.6-2.3) mg/dL unknown) (unknown) (no (unknown) (unknown) Magnesium 1.9 (units ( unknown) date) (1.6-2.3) mg/dL unknown) (unknown) (no (unknown) (unknown) Magnesium Stat (units (unknown) date) unknown) (unknown) (no (unknown) (unknown) Mediastinum:? (units ( unknown) date) Mediastinal unknown) contours are unchanged, with enlargement of the (unknown) (no (unknown) (unknown) Medical Decision (units (unknown) date) Making unknown) (unknown) (no (unknown) (unknown) Medical History (units (unknown) date) (Updated 01/25/23 @ unknown) 00:19 by Joanna Monaco MD) (unknown) (no (unknown) (unknown) Medical decision (units (unknown) date) making narrative: unknown) (unknown) (no (unknown) (unknown) Medical records (units (unknown) date) reviewed: Hospital unknown) admission records reviewed as well as (unknown) (no (unknown) (unknown) Medication (units (unk nown) date) Instructions unknown) Recorded Confirmed (unknown) (no (unknown) (unknown) Medication (units (unk nown) date) Instructions unknown) Recorded (unknown) (no (unknown) (unknown) Mode of arrival: (units (unknown) date) Wheelchair unknown) (unknown) (no (unknown) (unknown) Mobile # (Auto) (units ( unknown) date) (0-900) /uL unknown) (unknown) (no (unknown) (unknown) Mobile # (Auto) 700 (units (unknown) date) (0-900) /uL unknown) (unknown) (no (unknown) (unknown) Mobile % (Auto) (units ( unknown) date) (3-14) % unknown) (unknown) (no (unknown) (unknown) Mobile % (Auto) 7.7 (units (unknown) date) (3-14) % unknown) (unknown) (no (unknown) (unknown) Myocardial (units (unk nown) date) infarction unknown) (unknown) (no (unknown) (unknown) Narrative: (units (unk nown) date) unknown) (unknown) (no (unknown) (unknown) Neck: No JVD, (units ( unknown) date) supple unknown) (unknown) (no (unknown) (unknown) Neurologic: (units (un known) date) Grossly unknown) neurologically intact with no obvious asymmetries or (unknown) (no (unknown) (unknown) Neut # (Auto) (units ( unknown) date) (2946-2991) /uL unknown) (unknown) (no (unknown) (unknown) Neut # (Auto) 6800 (units (unknown) date) (8119-3072) /uL unknown) (unknown) (no (unknown) (unknown) Neut % (Auto) (units ( unknown) date) (50-75) % unknown) (unknown) (no (unknown) (unknown) Neut % (Auto) 72.2 (units (unknown) date) (50-75) % unknown) (unknown) (no (unknown) (unknown) No significant (units (unknown) date) ischemic changes unknown) (unknown) (no (unknown) (unknown) Ordered: (units (unkno wn) date) unknown) (unknown) (no (unknown) (unknown) Orders (units (unkno wn) date) unknown) (unknown) (no (unknown) (unknown) Oxygen Delivery (units (unknown) date) Method 05/09/22 unknown) 21:41 (unknown) (no (unknown) (unknown) Oxygen Delivery (units (unknown) date) Method Room Air unknown) (unknown) (no (unknown) (unknown) Oxygen Delivery (units (unknown) date) Method unknown) (unknown) (no (unknown) (unknown) PT (10.1-12.7) (units (unknown) date) SECONDS unknown) (unknown) (no (unknown) (unknown) PT 13.5 H (units (unkn own) date) (10.1-12.7) SECONDS unknown) (unknown) (no (unknown) (unknown) Partial (units (unkno wn) date) Thromboplastin Time unknown) Stat (unknown) (no (unknown) (unknown) Patient (units (unkno wn) date) Disposition: unknown) Admitted as Observation (unknown) (no (unknown) (unknown) Patient History (units (unknown) date) unknown) (unknown) (no (unknown) (unknown) Patient: (units (unkno wn) date) [place] unknown) MR#: [id number] (unknown) (no (unknown) (unknown) Plt Count (units (unkn own) date) (150-400) X103/uL unknown) (unknown) (no (unknown) (unknown) Plt Count 328 (units ( unknown) date) (150-400) X103/uL unknown) (unknown) (no (unknown) (unknown) Potassium (units (unkn own) date) (3.4-5.1) mmol/L unknown) (unknown) (no (unknown) (unknown) Potassium 4.4 (units ( unknown) date) (3.4-5.1) mmol/L unknown) (unknown) (no (unknown) (unknown) Previous Rx's (units ( unknown) date) unknown) (unknown) (no (unknown) (unknown) Prothrombin Time (units (unknown) date) INR Stat unknown) (unknown) (no (unknown) (unknown) [place] (units (unk nown) date) [place]. Will unknown) discuss admission with the hospitalist service (unknown) (no (unknown) (unknown) [place] effort (units (unknown) date) admit in February unknown) of this year with her cardiac event. (unknown) (no (unknown) (unknown) Psych: (units (unkno wn) date) Cooperative, unknown) appropriate insight and affect (unknown) (no (unknown) (unknown) Pulse Oximetry 100 (units (unknown) date) 05/09/22 21:41 unknown) (unknown) (no (unknown) (unknown) Pulse Oximetry 100 (units (unknown) date) unknown) (unknown) (no (unknown) (unknown) Pulse Oximetry 96 (units (unknown) date) 96 unknown) (unknown) (no (unknown) (unknown) Pulse Oximetry 96 (units (unknown) date) unknown) (unknown) (no (unknown) (unknown) Pulse Oximetry 97 (units (unknown) date) 97 unknown) (unknown) (no (unknown) (unknown) Pulse Oximetry 97 (units (unknown) date) unknown) (unknown) (no (unknown) (unknown) Pulse Oximetry 98 (units (unknown) date) unknown) (unknown) (no (unknown) (unknown) Pulse Oximetry 99 (units (unknown) date) 98 97 unknown) (unknown) (no (unknown) (unknown) Pulse Rate 41 L 41 (units (unknown) date) L unknown) (unknown) (no (unknown) (unknown) Pulse Rate 41 L (units (unknown) date) unknown) (unknown) (no (unknown) (unknown) Pulse Rate 42 L 43 (units (unknown) date) L 43 L unknown) (unknown) (no (unknown) (unknown) Pulse Rate 43 L 45 (units (unknown) date) L unknown) (unknown) (no (unknown) (unknown) Pulse Rate 44 L (units (unknown) date) 05/09/22 21:41 unknown) (unknown) (no (unknown) (unknown) Pulse Rate 44 L 43 (units (unknown) date) L unknown) (unknown) (no (unknown) (unknown) Pulse Rate 45 L (units (unknown) date) unknown) (unknown) (no (unknown) (unknown) QTC elongated at (units (unknown) date) 494 milliseconds unknown) (unknown) (no (unknown) (unknown) RBC (4.0-5.2) (units ( unknown) date) X106/uL unknown) (unknown) (no (unknown) (unknown) RBC 5.06 (4.0-5.2) (units (unknown) date) X106/uL unknown) (unknown) (no (unknown) (unknown) RDW (11.6-14.8) % (units (unknown) date) unknown) (unknown) (no (unknown) (unknown) RDW 15.0 H (units (unk nown) date) (11.6-14.8) % unknown) (unknown) (no (unknown) (unknown) Radiologist's (units ( unknown) date) Impression: unknown) (unknown) (no (unknown) (unknown) Re-evaluations: (units (unknown) date) Patient is unknown) re-evaluated after discussion with Cardiology. (unknown) (no (unknown) (unknown) Regarding record (units (unknown) date) request: She was unknown) boarded in the emergency department in (unknown) (no (unknown) (unknown) Related Data (units (u nknown) date) unknown) (unknown) (no (unknown) (unknown) Remainder of (units (u nknown) date) complete review of unknown) systems is otherwise unremarkable except for (unknown) (no (unknown) (unknown) Respiratory Rate (units (unknown) date) 18 05/09/22 21:41 unknown) (unknown) (no (unknown) (unknown) Respiratory Rate (units (unknown) date) 18 44 H unknown) (unknown) (no (unknown) (unknown) Respiratory Rate (units (unknown) date) 20 19 unknown) (unknown) (no (unknown) (unknown) Respiratory Rate (units (unknown) date) 22 unknown) (unknown) (no (unknown) (unknown) Respiratory Rate (units (unknown) date) 23 unknown) (unknown) (no (unknown) (unknown) Respiratory Rate (units (unknown) date) 42 H 42 H unknown) (unknown) (no (unknown) (unknown) Respiratory Rate (units (unknown) date) 43 H 12 14 unknown) (unknown) (no (unknown) (unknown) Respiratory Rate (units (unknown) date) 43 H unknown) (unknown) (no (unknown) (unknown) Respiratory: Lungs (units (unknown) date) are clear to unknown) auscultation, no wheezing no rales no rhonchi. (unknown) (no (unknown) (unknown) Restrictive lung (units (unknown) date) disease unknown) (unknown) (no (unknown) (unknown) Review of Systems (units (unknown) date) unknown) (unknown) (no (unknown) (unknown) SARS-CoV-2 (PCR) (units (unknown) date) (Negative) unknown) (unknown) (no (unknown) (unknown) SARS-CoV-2 (PCR) (units (unknown) date) Negative (Negative) unknown) (unknown) (no (unknown) (unknown) She has (units (unkno wn) date) dramatically unknown) limited her overall activity levels because of this. She (unknown) (no (unknown) (unknown) Signed By: (units (unk nown) date) unknown) (unknown) (no (unknown) (unknown) Sinus bradycardia (units (unknown) date) at a rate of 44 unknown) (unknown) (no (unknown) (unknown) Skin: Warm and (units (unknown) date) dry, no rashes unknown) (unknown) (no (unknown) (unknown) Smoking Status: (units (unknown) date) Former smoker unknown) (unknown) (no (unknown) (unknown) Social History (units (unknown) date) (Reviewed 03/23/22 unknown) @ 16:07 by Liam Colón MD) (unknown) (no (unknown) (unknown) Social (units (unkno wn) date) determinants of unknown) health that may influence the patients condition: (unknown) (no (unknown) (unknown) Sodium (137-145) (units (unknown) date) mmol/L unknown) (unknown) (no (unknown) (unknown) Sodium 135 L (units (u nknown) date) (137-145) mmol/L unknown) (unknown) (no (unknown) (unknown) Source: patient (units (unknown) date) unknown) (unknown) (no (unknown) (unknown) Stated complaint: (units (unknown) date) heart is unknown) fluctuating, uncontrolled temperature (unknown) (no (unknown) (unknown) Status post hip (units (unknown) date) surgery unknown) (unknown) (no (unknown) (unknown) Stop: 05/09/22 (units (unknown) date) 22:05 unknown) (unknown) (no (unknown) (unknown) 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 unknown) None.? (unknown) (no (unknown) (unknown) Temperature 98 F (units (unknown) date) 05/09/22 21:41 unknown) (unknown) (no (unknown) (unknown) Temperature 98 F (units (unknown) date) unknown) (unknown) (no (unknown) (unknown) Temperature (units (un known) date) unknown) (unknown) (no (unknown) (unknown) Time Seen by (units (u nknown) date) Provider: 05/09/22 unknown) 23:53 (unknown) (no (unknown) (unknown) Total Bilirubin (units (unknown) date) (0.2-1.3) mg/dL unknown) (unknown) (no (unknown) (unknown) Total Bilirubin (units (unknown) date) 0.8 (0.2-1.3) mg/dL unknown) (unknown) (no (unknown) (unknown) Total Creatine (units (unknown) date) Kinase (30-135) U/L unknown) (unknown) (no (unknown) (unknown) Total Creatine (units (unknown) date) Kinase 44 (30-135) unknown) U/L (unknown) (no (unknown) (unknown) Total Protein (units ( unknown) date) (6.3-8.2) g/dL unknown) (unknown) (no (unknown) (unknown) Total Protein 7.7 (units (unknown) date) (6.3-8.2) g/dL unknown) (unknown) (no (unknown) (unknown) Treatments: She is (units (unknown) date) given aspirin, unknown) metoprolol is held (unknown) (no (unknown) (unknown) Trop I [Troponin (units (unknown) date) I] Stat unknown) (unknown) (no (unknown) (unknown) Troponin + CK (units ( unknown) date) Cardiac Panel Stat unknown) (unknown) (no (unknown) (unknown) Troponin I (units (unk nown) date) (0.01-0.034) ng/mL unknown) (unknown) (no (unknown) (unknown) Troponin I 0.018 (units (unknown) date) (0.01-0.034) ng/mL unknown) (unknown) (no (unknown) (unknown) Unclear when last (units (unknown) date) TSH has been unknown) checked will add today. Will also add BNP. (unknown) (no (unknown) (unknown) Understands need (units (unknown) date) for hospitalization unknown) and observation. We will continue to (unknown) (no (unknown) (unknown) Vital Signs - 8 hr (units (unknown) date) unknown) (unknown) (no (unknown) (unknown) Vital Signs (units (un known) date) unknown) (unknown) (no (unknown) (unknown) Vital signs: (units (u nknown) date) unknown) (unknown) (no (unknown) (unknown) WBC (4.5-11.0) (units (unknown) date) X103/uL unknown) (unknown) (no (unknown) (unknown) WBC 9.4 (4.5-11.0) (units (unknown) date) X103/uL unknown) (unknown) (no (unknown) (unknown) XR chest 1V Stat (units (unknown) date) unknown) (unknown) (no (unknown) (unknown) [Embedded Image (units (unknown) date) Not Available] unknown) (unknown) (no (unknown) (unknown) [From [facility]] (units ( unknown) date) unknown) (unknown) (no (unknown) (unknown) abnormalities (units ( unknown) date) after multiple unknown) acute issues in the last 3 months, no evidence of (unknown) (no (unknown) (unknown) abnormalities (units ( unknown) date) unknown) (unknown) (no (unknown) (unknown) adhesive tape (units ( unknown) date) AdvReac Verified unknown) 05/09/22 21:46 (unknown) (no (unknown) (unknown) after TX with (units ( unknown) date) metoprolol and unknown) complains of low energy with exertional (unknown) (no (unknown) (unknown) alcohol intake (units (unknown) date) frequency: 0-2 unknown) drinks per day (unknown) (no (unknown) (unknown) alcohol intake: (units (unknown) date) current unknown) (unknown) (no (unknown) (unknown) angina/shortness (units (unknown) date) of breath that unknown) resolves with nitroglycerin. Over the last 24 (unknown) (no (unknown) (unknown) aortic contour (units (unknown) date) consistent with an unknown) ascending aortic aneurysm seen on the prior (unknown) (no (unknown) (unknown) appear (units (unkno wn) date) unknown) (unknown) (no (unknown) (unknown) appreciated (units (un known) date) unknown) (unknown) (no (unknown) (unknown) around (units (unkno wn) date) Thanksgiving. Will unknown) ask [facility] for their records. (unknown) (no (unknown) (unknown) ascending (units (unkn own) date) unknown) (unknown) (no (unknown) (unknown) call consultation (units (unknown) date) with Cardiology unknown) prior to discharge and agrees with cutting (unknown) (no (unknown) (unknown) cholecalciferol (units (unknown) date) (vitamin D3) 50 50 unknown) mcg PO DAILY 03/25/22 03/25/22 (unknown) (no (unknown) (unknown) closely coordinate (units (unknown) date) outpatient unknown) discharge(presuming heart rate comes up and she is (unknown) (no (unknown) (unknown) diazepam 10 mg (units (unknown) date) tablet (Valium) 10 unknown) mg PO BEDTIME 03/25/22 03/25/22 (unknown) (no (unknown) (unknown) dissection, (units (un known) date) pneumothorax. unknown) Possibility of viral infection, bacterial infection (unknown) (no (unknown) (unknown) extremity edema, (units (unknown) date) headaches but unknown) overall general malaise and fatigue. (unknown) (no (unknown) (unknown) feeling better (units (unknown) date) with an unchanged unknown) echocardiogram). Have requested records from (unknown) (no (unknown) (unknown) fentanyl 75 mcg/hr (units (unknown) date) transdermal 75 mcg unknown) transdermal 3XD pain 03/23/22 03/23/22 (unknown) (no (unknown) (unknown) fibrosis, diabetes (units (unknown) date) with myocardial unknown) infarction in February of 2022 and then (unknown) (no (unknown) (unknown) fluoxetine 40 mg (units (unknown) date) capsule (Prozac) 40 unknown) mg PO DAILY ##0 11/29/12 03/25/22 (unknown) (no (unknown) (unknown) for further (units (un known) date) evaluation. She unknown) reports no overt fevers, cough, orthopnea, lower (unknown) (no (unknown) (unknown) future. In the (units (unknown) date) meantime she unknown) complains that she can feel her heartbeat and it is (unknown) (no (unknown) (unknown) give a complete (units (unknown) date) and coherent unknown) history. Well-nourished well-developed (unknown) (no (unknown) (unknown) hours she is had (units (unknown) date) chills and unknown) significantly increased fatigue. She does note that (unknown) (no (unknown) (unknown) household members: (units (unknown) date) significant other unknown) (unknown) (no (unknown) (unknown) lamotrigine 100 mg (units (unknown) date) tablet 100 mg PO unknown) BEDTIME 03/25/22 03/25/22 (unknown) (no (unknown) (unknown) lamotrigine 100 mg (units (unknown) date) tablet 50 mg PO unknown) DAILY 03/25/22 03/25/22 (unknown) (no (unknown) (unknown) levothyroxine 75 (units (unknown) date) mcg tablet 75 mcg unknown) PO DAILY 03/25/22 03/25/22 (unknown) (no (unknown) (unknown) mcg (2,000 unit) (units (unknown) date) tablet unknown) (unknown) (no (unknown) (unknown) medication side (units (unknown) date) effects, worsening unknown) cardiac angina, severe anemia, thyroid (unknown) (no (unknown) (unknown) metoprolol after (units (unknown) date) her NSTEMI, unknown) worsening exertional angina (unknown) (no (unknown) (unknown) metoprolol dose in (units (unknown) date) and adding 2.5 mg unknown) of amlodipine for treating her anginal (unknown) (no (unknown) (unknown) metoprolol (units (unk nown) date) tartrate 50 mg unknown) tablet 50 mg PO BID 03/25/22 03/25/22 (unknown) (no (unknown) (unknown) mg tablet (units (unkn own) date) (Percocet) 4-6) unknown) (unknown) (no (unknown) (unknown) murmurs, no (units (un known) date) significant unknown) evidence of volume overload clinically (unknown) (no (unknown) (unknown) nitroglycerin that (units (unknown) date) is getting more unknown) frequent and more intense with the episodes. (unknown) (no (unknown) (unknown) oxycodone 5 mg (units (unknown) date) tablet 5 mg PO Q4HR unknown) PRN Pain, Moderate 03/28/22 (unknown) (no (unknown) (unknown) oxycodone-acetamin (units (unknown) date) ophen 5 mg-325 1 unknown) tab PO Q6H PRN Pain (Scale Score 03/25/22 (unknown) (no (unknown) (unknown) patch (units (unkno wn) date) unknown) (unknown) (no (unknown) (unknown) [facility] have [facility] hospital records from (unknown) (no (unknown) (unknown) repeat (units (unkno wn) date) echocardiogram, unknown) hold metoprolol and re-evaluate. He recommended phone (unknown) (no (unknown) (unknown) she is supposed to (units (unknown) date) be scheduled for a unknown) cardiac catheterization in the near (unknown) (no (unknown) (unknown) size is enlarged. (units (unknown) date) unknown) (unknown) (no (unknown) (unknown) subsequent hip (units (unknown) date) surgery after unknown) falling sustaining a hip fracture in March. (unknown) (no (unknown) (unknown) substance use (units ( unknown) date) type: does not use unknown) (unknown) (no (unknown) (unknown) sulfamethoxazole (units (unknown) date) Allergy Verified unknown) 05/09/22 21:46 (unknown) (no (unknown) (unknown) symptoms while not (units (unknown) date) exacerbating her unknown) bradycardia. (unknown) (no (unknown) (unknown) talked to her (units ( unknown) date) cardiology office unknown) earlier today and they recommended she come in (unknown) (no (unknown) (unknown) that included in (units (unknown) date) the HPI. unknown) (unknown) (no (unknown) (unknown) trimethoprim [From (units (unknown) date) [facility]] Allergy unknown) Verified 05/09/22 21:46 (unknown) (no (unknown) (unknown) unremarkable.? (units (unknown) date) unknown) (unknown) (no (unknown) (unknown) valves and an (units ( unknown) date) aortic aneurysm unknown) that they are watching?. She was discharged home (unknown) (no (unknown) (unknown) very slow, that (units (unknown) date) she is having unknown) significant exertional angina that responds to (unknown) (no (unknown) (unknown) vitamin B complex (units (unknown) date) 1 tab PO DAILY unknown) 03/25/22 03/25/22 (unknown) (no (unknown) (unknown) vitamin E 400 unit (units (unknown) date) tablet 1 unit PO unknown) DAILY 03/25/22 03/25/22 Result panel 234 (unknown) (no (unknown) (unknown) (no value) (units (unk nown) date) unknown) (unknown) (no (unknown) (unknown) (4-6) #30 tabs (units (unknown) date) unknown) (unknown) (no (unknown) (unknown) (Lamictal) (units (unk nown) date) unknown) (unknown) (no (unknown) (unknown) (past 8 hours): (units (unknown) date) unknown) (unknown) (no (unknown) (unknown) 00:00 05/10/22 (units (unknown) date) unknown) (unknown) (no (unknown) (unknown) 00:30 05/10/22 (units (unknown) date) unknown) (unknown) (no (unknown) (unknown) 00:30 (units (unkno wn) date) unknown) (unknown) (no (unknown) (unknown) 05/09/22 05/09/22 (units (unknown) date) 05/09/22 unknown) (unknown) (no (unknown) (unknown) 05/09/22 21:59 (units (unknown) date) unknown) (unknown) (no (unknown) (unknown) 05/09/22 (units (unkno wn) date) unknown) (unknown) (no (unknown) (unknown) 05/10/22 (units (unkno wn) date) unknown) (unknown) (no (unknown) (unknown) 01:00 05/10/22 (units (unknown) date) unknown) (unknown) (no (unknown) (unknown) 01:01 05/10/22 (units (unknown) date) unknown) (unknown) (no (unknown) (unknown) 01:01 (units (unkno wn) date) unknown) (unknown) (no (unknown) (unknown) 01:30 05/10/22 (units (unknown) date) unknown) (unknown) (no (unknown) (unknown) 01:31 05/10/22 (units (unknown) date) unknown) (unknown) (no (unknown) (unknown) 01:31 (units (unkno wn) date) unknown) (unknown) (no (unknown) (unknown) [id number] (units (unkno wn) date) unknown) (unknown) (no (unknown) (unknown) 02:00 05/10/22 (units (unknown) date) unknown) (unknown) (no (unknown) (unknown) 02:01 (units (unkno wn) date) unknown) (unknown) (no (unknown) (unknown) 03/25/22 History (units (unknown) date) unknown) (unknown) (no (unknown) (unknown) 21:41 05/09/22 (units (unknown) date) unknown) (unknown) (no (unknown) (unknown) 21:59 21:59 21:59 (units (unknown) date) unknown) (unknown) (no (unknown) (unknown) 22:00 05/09/22 (units (unknown) date) unknown) (unknown) (no (unknown) (unknown) 22:01 05/09/22 (units (unknown) date) unknown) (unknown) (no (unknown) (unknown) 22:01 (units (unkno wn) date) unknown) (unknown) (no (unknown) (unknown) 22:05 (units (unkno wn) date) unknown) (unknown) (no (unknown) (unknown) 22:30 05/09/22 (units (unknown) date) unknown) (unknown) (no (unknown) (unknown) 22:31 05/09/22 (units (unknown) date) unknown) (unknown) (no (unknown) (unknown) 22:31 (units (unkno wn) date) unknown) (unknown) (no (unknown) (unknown) 23:00 05/09/22 (units (unknown) date) unknown) (unknown) (no (unknown) (unknown) 23:00 (units (unkno wn) date) unknown) (unknown) (no (unknown) (unknown) 23:30 05/09/22 (units (unknown) date) unknown) (unknown) (no (unknown) (unknown) 23:31 05/09/22 (units (unknown) date) unknown) (unknown) (no (unknown) (unknown) 23:31 (units (unkno wn) date) unknown) (unknown) (no (unknown) (unknown) ALT 17 (units (unkno wn) date) unknown) (unknown) (no (unknown) (unknown) ALT (units (unkno wn) date) unknown) (unknown) (no (unknown) (unknown) APTT 50 H (units (unkn own) date) unknown) (unknown) (no (unknown) (unknown) APTT (units (unkno wn) date) unknown) (unknown) (no (unknown) (unknown) AST 26 (units (unkno wn) date) unknown) (unknown) (no (unknown) (unknown) AST (units (unkno wn) date) unknown) (unknown) (no (unknown) (unknown) Age/Sex: 72 / F (units (unknown) date) unknown) (unknown) (no (unknown) (unknown) Albumin 4.4 (units (un known) date) unknown) (unknown) (no (unknown) (unknown) Albumin (units (unkno wn) date) unknown) (unknown) (no (unknown) (unknown) Albumin/Globulin (units (unknown) date) Ratio 1.3 unknown) (unknown) (no (unknown) (unknown) Albumin/Globulin (units (unknown) date) Ratio unknown) (unknown) (no (unknown) (unknown) Alkaline (units (unkno wn) date) Phosphatase 109 unknown) (unknown) (no (unknown) (unknown) Alkaline (units (unkno wn) date) Phosphatase unknown) (unknown) (no (unknown) (unknown) Allergies (units (unkn own) date) unknown) (unknown) (no (unknown) (unknown) Allergy/AdvReac (units (unknown) date) Type Severity unknown) Reaction Status Date / Time (unknown) (no (unknown) (unknown) Assessment + Plan (units (unknown) date) unknown) (unknown) (no (unknown) (unknown) BUN 27 H (units (unkno wn) date) unknown) (unknown) (no (unknown) (unknown) BUN (units (unkno wn) date) unknown) (unknown) (no (unknown) (unknown) BUN/Creatinine (units (unknown) date) Ratio 31.0 H unknown) (unknown) (no (unknown) (unknown) BUN/Creatinine (units (unknown) date) Ratio unknown) (unknown) (no (unknown) (unknown) Baso # (Auto) 100 (units (unknown) date) unknown) (unknown) (no (unknown) (unknown) Baso # (Auto) (units ( unknown) date) unknown) (unknown) (no (unknown) (unknown) Baso % (Auto) 0.9 (units (unknown) date) unknown) (unknown) (no (unknown) (unknown) Baso % (Auto) (units ( unknown) date) unknown) (unknown) (no (unknown) (unknown) Been Physically (units (unknown) date) Hurt or No unknown) (unknown) (no (unknown) (unknown) Blood Pressure (units (unknown) date) 114/49 L 115/52 L unknown) (unknown) (no (unknown) (unknown) Blood Pressure (units (unknown) date) 116/68 unknown) (unknown) (no (unknown) (unknown) Blood Pressure (units (unknown) date) 122/56 L unknown) (unknown) (no (unknown) (unknown) Blood Pressure (units (unknown) date) 123/51 L 129/56 L unknown) (unknown) (no (unknown) (unknown) Blood Pressure (units (unknown) date) 127/58 L 131/56 L unknown) (unknown) (no (unknown) (unknown) Blood Pressure (units (unknown) date) 133/57 L unknown) (unknown) (no (unknown) (unknown) Blood Pressure (units (unknown) date) 142/59 H unknown) (unknown) (no (unknown) (unknown) Blood Pressure (units (unknown) date) unknown) (unknown) (no (unknown) (unknown) CK-MB (CK-2) Rel (units (unknown) date) Index TNP unknown) (unknown) (no (unknown) (unknown) CK-MB (CK-2) Rel (units (unknown) date) Index unknown) (unknown) (no (unknown) (unknown) CK-MB (CK-2) TNP (units (unknown) date) unknown) (unknown) (no (unknown) (unknown) CK-MB (CK-2) (units (u nknown) date) unknown) (unknown) (no (unknown) (unknown) Calcium 9.4 (units (un known) date) unknown) (unknown) (no (unknown) (unknown) Calcium (units (unkno wn) date)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 (unknown) (no (unknown) (unknown) Labs: (units (unkno wn) date) unknown) (unknown) (no (unknown) (unknown) Duncan Rock is a (units (unknown) date) 72-year-old female unknown) with a PMH of idiopathic pulmonary (unknown) (no (unknown) (unknown) Lipase 152 (units (unk nown) date) unknown) (unknown) (no (unknown) (unknown) Lipase (units (unkno wn) date) unknown) (unknown) (no (unknown) (unknown) Lungs: (units (unkno wn) date) Auscultation of all unknown) lung barney are clear without adventitious sounds, (unknown) (no (unknown) (unknown) Lymph # (Auto) (units (unknown) date) 1700 unknown) (unknown) (no (unknown) (unknown) Lymph # (Auto) (units (unknown) date) unknown) (unknown) (no (unknown) (unknown) Lymph % (Auto) (units (unknown) date) 18.2 L unknown) (unknown) (no (unknown) (unknown) Lymph % (Auto) (units (unknown) date) unknown) (unknown) (no (unknown) (unknown) MCH 28.0 (units (unkno wn) date) unknown) (unknown) (no (unknown) (unknown) MCH (units (unkno wn) date) unknown) (unknown) (no (unknown) (unknown) MCHC 33.0 (units (unkn own) date) unknown) (unknown) (no (unknown) (unknown) MCHC (units (unkno wn) date) unknown) (unknown) (no (unknown) (unknown) MCV 84.9 (units (unkno wn) date) unknown) (unknown) (no (unknown) (unknown) MCV (units (unkno wn) date) unknown) (unknown) (no (unknown) (unknown) Magnesium 1.9 (units ( unknown) date) unknown) (unknown) (no (unknown) (unknown) Magnesium (units (unkn own) date) unknown) (unknown) (no (unknown) (unknown) Measuring 6.4 cm.? (units (unknown) date) She will need close unknown) follow-up.? She is on metoprolol for (unknown) (no (unknown) (unknown) Medical History (units (unknown) date) (Reviewed 05/10/22 unknown) @ 02:25 by DAINA Parikh) (unknown) (no (unknown) (unknown) Medication (units (unk nown) date) Instructions unknown) Recorded Confirmed Type (unknown) (no (unknown) (unknown) Meds (units (unkno wn) date) unknown) (unknown) (no (unknown) (unknown) Mobile # (Auto) 700 (units (unknown) date) unknown) (unknown) (no (unknown) (unknown) Mobile # (Auto) (units ( unknown) date) unknown) (unknown) (no (unknown) (unknown) Mobile % (Auto) 7.7 (units (unknown) date) unknown) (unknown) (no (unknown) (unknown) Mobile % (Auto) (units ( unknown) date) unknown) (unknown) (no (unknown) (unknown) Mother TIA (units (unk nown) date) (transient ischemic unknown) attack) (unknown) (no (unknown) (unknown) Musculoskeletal: (units (unknown) date) Muscle strength and unknown) tone are equal within normal limits, no (unknown) (no (unknown) (unknown) Myocardial (units (unk nown) date) infarction unknown) (unknown) (no (unknown) (unknown) Narrative (units (unkn own) date) unknown) (unknown) (no (unknown) (unknown) Narrative: (units (unk nown) date) unknown) (unknown) (no (unknown) (unknown) Negative for JVD (units (unknown) date) unknown) (unknown) (no (unknown) (unknown) Neuro: Alert and (units (unknown) date) orientated x3, unknown) strength is +5/5 in all extremities, sensation (unknown) (no (unknown) (unknown) Neut # (Auto) 6800 (units (unknown) date) unknown) (unknown) (no (unknown) (unknown) Neut # (Auto) (units ( unknown) date) unknown) (unknown) (no (unknown) (unknown) Neut % (Auto) 72.2 (units (unknown) date) unknown) (unknown) (no (unknown) (unknown) Neut % (Auto) (units ( unknown) date) unknown) (unknown) (no (unknown) (unknown) Objective (units (unkn own) date) unknown) (unknown) (no (unknown) (unknown) On admit patient (units (unknown) date) denies chest pain, unknown) shortness in breath, headache, changes in (unknown) (no (unknown) (unknown) Oxygen Delivery (units (unknown) date) Method Room Air unknown) (unknown) (no (unknown) (unknown) Oxygen Delivery (units (unknown) date) Method unknown) (unknown) (no (unknown) (unknown) PT 13.5 H (units (unkn own) date) unknown) (unknown) [...] was changed yesterday. (unknown) (no (unknown) (unknown) Patient: (units (unkno wn) date) Duncan Rock K unknown) MR#: [id number] (unknown) (no (unknown) (unknown) Plt Count 328 (units ( unknown) date) unknown) (unknown) (no (unknown) (unknown) Plt Count (units (unkn own) date) unknown) (unknown) (no (unknown) (unknown) Potassium 4.4 (units ( unknown) date) unknown) (unknown) (no (unknown) (unknown) Potassium (units (unkn own) date) unknown) (unknown) (no (unknown) (unknown) [place] [facility] (units (unknown) date) for ?too bad valves unknown) and aortic aneurysm?.? After TX with (unknown) (no (unknown) (unknown) Provider: (units (unkn own) date) May Sloan unknown) [employer]PRENTICE-[employer] (unknown) (no (unknown) (unknown) Psych: Patient has (units (unknown) date) a well-kept unknown) appearance, appropriate affect, mental status (unknown) (no (unknown) (unknown) Pulse Oximetry 100 (units (unknown) date) unknown) (unknown) (no (unknown) (unknown) Pulse Oximetry 96 (units (unknown) date) 96 unknown) (unknown) (no (unknown) (unknown) Pulse Oximetry 96 (units (unknown) date) 98 unknown) (unknown) (no (unknown) (unknown) Pulse Oximetry 97 (units (unknown) date) 97 unknown) (unknown) (no (unknown) (unknown) Pulse Oximetry 97 (units (unknown) date) unknown) (unknown) (no (unknown) (unknown) Pulse Oximetry 98 (units (unknown) date) unknown) (unknown) (no (unknown) (unknown) Pulse Oximetry 99 (units (unknown) date) 98 97 unknown) (unknown) (no (unknown) (unknown) Pulse Rate 41 L 41 (units (unknown) date) L unknown) (unknown) (no (unknown) (unknown) Pulse Rate 41 L (units (unknown) date) unknown) (unknown) (no (unknown) (unknown) Pulse Rate 42 L 41 (units (unknown) date) L unknown) (unknown) (no (unknown) (unknown) Pulse Rate 42 L 43 (units (unknown) date) L 43 L unknown) (unknown) (no (unknown) (unknown) Pulse Rate 43 L 45 (units (unknown) date) L unknown) (unknown) (no (unknown) (unknown) Pulse Rate 44 L 43 (units (unknown) date) L unknown) (unknown) (no (unknown) (unknown) Pulse Rate 45 L 43 (units (unknown) date) L unknown) (unknown) (no (unknown) (unknown) RBC 5.06 (units (unkno wn) date) unknown) (unknown) (no (unknown) (unknown) RBC (units (unkno wn) date) unknown) (unknown) (no (unknown) (unknown) RDW 15.0 H (units (unk nown) date) unknown) (unknown) (no (unknown) (unknown) RDW (units (unkno wn) date) unknown) (unknown) (no (unknown) (unknown) Respiratory Rate (units (unknown) date) 18 44 H unknown) (unknown) (no (unknown) (unknown) Respiratory Rate (units (unknown) date) 20 19 unknown) (unknown) (no (unknown) (unknown) Respiratory Rate (units (unknown) date) 21 42 H unknown) (unknown) (no (unknown) (unknown) Respiratory Rate (units (unknown) date) 22 unknown) (unknown) (no (unknown) (unknown) Respiratory Rate (units (unknown) date) 23 24 unknown) (unknown) (no (unknown) (unknown) Respiratory Rate (units (unknown) date) 42 H 42 H unknown) (unknown) (no (unknown) (unknown) Respiratory Rate (units (unknown) date) 42 H unknown) (unknown) (no (unknown) (unknown) Respiratory Rate (units (unknown) date) 43 H 12 14 unknown) (unknown) (no (unknown) (unknown) Respiratory Rate (units (unknown) date) 43 H unknown) (unknown) (no (unknown) (unknown) Restrictive lung (units (unknown) date) disease unknown) (unknown) (no (unknown) (unknown) Review of Systems (units (unknown) date) unknown) (unknown) (no (unknown) (unknown) SARS-CoV-2 (PCR) (units (unknown) date) Negative unknown) (unknown) (no (unknown) (unknown) SARS-CoV-2 (PCR) (units (unknown) date) unknown) (unknown) (no (unknown) (unknown) Safety + (units (unkno wn) date) Behavioral: unknown) (unknown) (no (unknown) (unknown) She is not on any (units (unknown) date) outpatient unknown) medications or inhalers. (unknown) (no (unknown) (unknown) Signed By: (units (unk nown) date) unknown) (unknown) (no (unknown) (unknown) Skin: Warm dry and (units (unknown) date) intact without unknown) rashes, ulcerations or petechiae. 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 unknown) (unknown) (no (unknown) (unknown) Surgical History (units (unknown) date) (Reviewed 05/10/22 unknown) @ 02:25 by DAINA Parikh) (unknown) (no (unknown) (unknown) Temperature 98 F (units (unknown) date) unknown) (unknown) (no (unknown) (unknown) Temperature (units (un known) date) unknown) (unknown) (no (unknown) (unknown) Threatened By a (units (unknown) date) Person unknown) (unknown) (no (unknown) (unknown) Time Patient Seen: (units (unknown) date) 02:13 unknown) (unknown) (no (unknown) (unknown) Time Spent With (units (unknown) date) Patient unknown) (unknown) (no (unknown) (unknown) Tobacco + (units (unkn own) date) Substance use: unknown) (unknown) (no (unknown) (unknown) Tobacco type (units (u nknown) date) cigarettes unknown) (unknown) (no (unknown) (unknown) Total Bilirubin (units (unknown) date) 0.8 unknown) (unknown) (no (unknown) (unknown) Total Bilirubin (units (unknown) date) unknown) (unknown) (no (unknown) (unknown) Total Creatine (units (unknown) date) Kinase 44 unknown) (unknown) (no (unknown) (unknown) Total Creatine (units (unknown) date) Kinase unknown) (unknown) (no (unknown) (unknown) Total Protein 7.7 (units (unknown) date) unknown) (unknown) (no (unknown) (unknown) Total Protein (units ( unknown) date) unknown) (unknown) (no (unknown) (unknown) Troponin I 0.018 (units (unknown) date) unknown) (unknown) (no (unknown) (unknown) Troponin I (units (unk nown) date) unknown) (unknown) (no (unknown) (unknown) Vital Signs (units (un known) date) unknown) (unknown) (no (unknown) (unknown) WBC 9.4 (units (unkno wn) date) unknown) (unknown) (no (unknown) (unknown) WBC (units (unkno wn) date) unknown) (unknown) (no (unknown) (unknown) [Embedded Image (units (unknown) date) Not Available] unknown) (unknown) (no (unknown) (unknown) [From ] (units ( unknown) date) unknown) (unknown) (no (unknown) (unknown) abnormalities (units ( unknown) date) prolonged QTC 494 unknown) without ST or T-wave changes. Last echo 10/05 (unknown) (no (unknown) (unknown) adhesive tape (units ( unknown) date) AdvReac Verified unknown) 05/09/22 21:46 (unknown) (no (unknown) (unknown) alcohol intake (units (unknown) date) current unknown) (unknown) (no (unknown) (unknown) alcohol intake (units (unknown) date) frequency 0-2 unknown) drinks per day (unknown) (no (unknown) (unknown) and left hip (units (u nknown) date) fracture ORIF with unknown) ARF 03/24/2022??Followe d by Cardiology at (unknown) (no (unknown) (unknown) angina/shortness (units (unknown) date) of breath that unknown) resolves with nitroglycerin occurring more (unknown) (no (unknown) (unknown) are present in all (units (unknown) date) 4 quadrants without unknown) guarding or rebound, no CVA tenderness. (unknown) (no (unknown) (unknown) attitude thought (units (unknown) date) context and unknown) judgment are appropriate for age. (unknown) (no (unknown) (unknown) blood pressure (units (unknown) date) control. unknown) (unknown) (no (unknown) (unknown) cardiology office (units (unknown) date) today advised she unknown) come in for further evaluation.? She (unknown) (no (unknown) (unknown) carotid bruit, no (units (unknown) date) cardiac pulsations unknown) present. (unknown) (no (unknown) (unknown) changes, (units (unkno wn) date) constipation, unknown) incontinence, melena, rashes, recent changes to (unknown) (no (unknown) (unknown) chills, cough, (units (unknown) date) recent exposure to unknown) illness, abdominal pain, nausea, vomiting, (unknown) (no (unknown) (unknown) cholecalciferol (units (unknown) date) (vitamin D3) 50 50 unknown) mcg PO DAILY 03/25/22 03/25/22 History (unknown) (no (unknown) (unknown) clear and mucous (units (unknown) date) membranes are unknown) moist. Neck is supple and symmetric, trachea is (unknown) (no (unknown) (unknown) clearance 42, PT (units (unknown) date) 13.5 although INR unknown) stable 1.2 PTT 50, troponin 0.018, COVID is (unknown) (no (unknown) (unknown) decreasing the (units (unknown) date) metoprolol dose by unknown) half and adding 2.5 amlodipine, and repeating (unknown) (no (unknown) (unknown) deformity, (units (unk nown) date) crepitus, unknown) effusions, cyanosis, clubbing or edema present. Full range (unknown) (no (unknown) (unknown) diazepam 10 mg (units (unknown) date) tablet (Valium) 10 unknown) mg PO BEDTIME 03/25/22 03/25/22 History (unknown) (no (unknown) (unknown) difficulty with (units (unknown) date) ambulation, recent unknown) falls, head injury, LOC, fever, body aches, (unknown) (no (unknown) (unknown) documented. (units (un known) date) unknown) (unknown) (no (unknown) (unknown) down trending to (units (unknown) date) 0.041.? It likely unknown) to be cardiac demand ischemia. (unknown) (no (unknown) (unknown) dramatically (units (u nknown) date) decreasing her unknown) activity level. Her cardiology office today advised (unknown) (no (unknown) (unknown) due to (units (unkno wn) date) bradycardia, unknown) exertional angina/dyspnea. (unknown) (no (unknown) (unknown) echo, with urgent (units (unknown) date) follow-up in their unknown) clinic. Patient admitted for observation (unknown) (no (unknown) (unknown) fatigue. (units (unkno wn) date) unknown) (unknown) (no (unknown) (unknown) fentanyl 75 mcg/hr (units (unknown) date) transdermal 75 mcg unknown) transdermal 3XD pain 03/23/22 03/23/22 (unknown) (no (unknown) (unknown) fibrosis, HTN, (units ( unknown) date) hypothyroid, unknown) fibromyalgia, ascending aortic aneurysm, depression, (unknown) (no (unknown) (unknown) fluoxetine 40 mg (units (unknown) date) capsule (Prozac) 40 unknown) mg PO DAILY ##0 11/29/12 03/25/22 History (unknown) (no (unknown) (unknown) frequently, slow (units (unknown) date) heart beat and over unknown) last 24 hours chills and significantly (unknown) (no (unknown) (unknown) history of (units (unkn own) date) epilepsy, NSTEMI unknown) 03/07-pending cardiac follow-up/catheteri zation, and (unknown) (no (unknown) (unknown) history of (units (unk nown) date) epilepsy, NSTEMI unknown) 03/07-pending cardiac follow-up/catheteri zation, (unknown) (no (unknown) (unknown) household members (units (unknown) date) significant other unknown) (unknown) (no (unknown) (unknown) in the ED where (units (unknown) date) patient is being unknown) followed on-call safety and health manager recommended (unknown) (no (unknown) (unknown) increased fatigue (units (unknown) date) which has been unknown) dramatically decreasing her activity level. Her (unknown) (no (unknown) (unknown) lamotrigine 100 mg (units (unknown) date) tablet 100 mg PO unknown) BEDTIME 03/25/22 03/25/22 History (unknown) (no (unknown) (unknown) lamotrigine 100 mg (units (unknown) date) tablet 50 mg PO unknown) DAILY 03/25/22 03/25/22 History (unknown) (no (unknown) (unknown) left hip fracture (units (unknown) date) ORIF with ARF unknown) 03/24/2022??Followe d by Cardiology at [place] (unknown) (no (unknown) (unknown) levothyroxine 75 (units (unknown) date) mcg tablet 75 mcg unknown) PO DAILY 03/25/22 03/25/22 History (unknown) (no (unknown) (unknown) mcg (2,000 unit) (units (unknown) date) tablet unknown) (unknown) (no (unknown) (unknown) medication, (units (un known) date) illness, injury, or unknown) trauma. (unknown) (no (unknown) (unknown) metoprolol 50 mg (units (unknown) date) b.i.d. and unknown) complains of low energy with exertional (unknown) (no (unknown) (unknown) metoprolol (units (unk nown) date) tartrate 50 mg unknown) tablet 50 mg PO BID 03/25/22 03/25/22 History (unknown) (no (unknown) (unknown) mg b.i.d. and (units (u nknown) date) complains of low unknown) energy with exertional angina/shortness of breath (unknown) (no (unknown) (unknown) mg tablet (units (unkn own) date) (Percocet) 4-6) unknown) (unknown) (no (unknown) (unknown) midline, no (units (un known) date) adenopathy, no unknown) thyroid enlargement, nontender, no masses palpated. (unknown) (no (unknown) (unknown) negative. (units (unkn own) date) Patient's EKG sinus unknown) Yves rate of 44 LVH with repolarization (unknown) (no (unknown) (unknown) of motion intact (units (unknown) date) radial and pedal unknown) pulses are normal. (unknown) (no (unknown) (unknown) orthopnea, lower (units (unknown) date) extremity edema, unknown) headaches but overall general malaise and (unknown) (no (unknown) (unknown) over last 24 hours (units (unknown) date) chills and unknown) significantly increased fatigue which has been (unknown) (no (unknown) (unknown) overall general (units (unknown) date) malaise and unknown) fatigue. (unknown) (no (unknown) (unknown) oxycodone 5 mg (units (unknown) date) tablet 5 mg PO Q4HR unknown) PRN Pain, Moderate 03/28/22 Rx (unknown) (no (unknown) (unknown) oxycodone-acetamin (units (unknown) date) ophen 5 mg-325 1 unknown) tab PO Q6H PRN Pain (Scale Score 03/25/22 (unknown) (no (unknown) (unknown) patch (units (unkno wn) date) unknown) (unknown) (no (unknown) (unknown) reports no overt (units (unknown) date) fevers, cough, unknown) orthopnea, lower extremity edema, headaches but (unknown) (no (unknown) (unknown) retractions, or (units (unknown) date) tachypneic labored unknown) (unknown) (no (unknown) (unknown) saturation 97% on (units (unknown) date) room air. CBC unknown) unremarkable, chloride 97, BUN 27, creatinine (unknown) (no (unknown) (unknown) she come in for (units (unknown) date) further unknown) evaluation.? She reports no overt fevers, cough, (unknown) (no (unknown) (unknown) sleep. (units (unkno wn) date) unknown) (unknown) (no (unknown) (unknown) sulfamethoxazole (units (unknown) date) Allergy Verified unknown) 05/09/22 21:46 (unknown) (no (unknown) (unknown) that resolves with (units (unknown) date) nitroglycerin unknown) occurring more frequently, slow heart beat and (unknown) (no (unknown) (unknown) thoracic aorta (units (unknown) date) redemonstrated, unknown) enlarged heart. [facility]ology was consulted (unknown) (no (unknown) (unknown) time. (units (unkno wn) date) unknown) (unknown) (no (unknown) (unknown) to touch intact, (units (unknown) date) no gross deficits unknown) noted of cranial nerves. (unknown) (no (unknown) (unknown) today; this time (units (unknown) date) is exclusive of unknown) procedural time. (unknown) (no (unknown) (unknown) trimethoprim [From (units (unknown) date) Septra] Allergy unknown) Verified 05/09/22 21:46 (unknown) (no (unknown) (unknown) urinary (units (unkno wn) date) incontinence/retent unknown) ion, dysuria, frequency, urgency, hematuria, bowel (unknown) (no (unknown) (unknown) vision, difficulty (units (unknown) date) swallowing, speech unknown) impairment, weakness, numbness, tingling, (unknown) (no (unknown) (unknown) vitamin B complex (units (unknown) date) 1 tab PO DAILY unknown) 03/25/22 03/25/22 History (unknown) (no (unknown) (unknown) vitamin E 400 unit (units (unknown) date) tablet 1 unit PO unknown) DAILY 03/25/22 03/25/22 History (unknown) (no (unknown) (unknown) wheezes, rhonchi, (units (unknown) date) or rales. unknown) (unknown) (no (unknown) (unknown) with an EF 60 65%. (units (unknown) date) Chest x-ray unknown) demonstrated aneurysmal dilation ascending Result panel 236 (unknown) (no (unknown) (unknown) (no value) (units (unk nown) date) unknown) (unknown) (no (unknown) (unknown) (4-6) #30 tabs (units (unknown) date) unknown) (unknown) (no (unknown) (unknown) (Lamictal) (units (unk nown) date) unknown) (unknown) (no (unknown) (unknown) (past 8 hours): (units (unknown) date) unknown) (unknown) (no (unknown) (unknown) -02/2022 (units (unkno wn) date) unknown) (unknown) (no (unknown) (unknown) -03/23/2022 admit: (units (unknown) date) Troponin was 0.050, unknown) down trending to 0.041.? It likely to be (unknown) (no (unknown) (unknown) -initial troponin (units (unknown) date) 0.018 unknown) (unknown) (no (unknown) (unknown) 00:00 05/10/22 (units (unknown) date) unknown) (unknown) (no (unknown) (unknown) 00:30 05/10/22 (units (unknown) date) unknown) (unknown) (no (unknown) (unknown) 00:30 (units (unkno wn) date) unknown) (unknown) (no (unknown) (unknown) 05/09/22 05/09/22 (units (unknown) date) 05/09/22 unknown) (unknown) (no (unknown) (unknown) 05/09/22 21:59 (units (unknown) date) unknown) (unknown) (no (unknown) (unknown) 05/09/22 (units (unkno wn) date) unknown) (unknown) (no (unknown) (unknown) 05/10/22 (units (unkno wn) date) unknown) (unknown) (no (unknown) (unknown) 01:00 05/10/22 (units (unknown) date) unknown) (unknown) (no (unknown) (unknown) 01:01 05/10/22 (units (unknown) date) unknown) (unknown) (no (unknown) (unknown) 01:01 (units (unkno wn) date) unknown) (unknown) (no (unknown) (unknown) 01:30 05/10/22 (units (unknown) date) unknown) (unknown) (no (unknown) (unknown) 01:31 05/10/22 (units (unknown) date) unknown) (unknown) (no (unknown) (unknown) 01:31 (units (unkno wn) date) unknown) (unknown) (no (unknown) (unknown) [id number] (units (unkno wn) date) unknown) (unknown) (no (unknown) (unknown) 02:00 05/10/22 (units (unknown) date) unknown) (unknown) (no (unknown) (unknown) 02:01 (units (unkno wn) date) unknown) (unknown) (no (unknown) (unknown) 1. Bradycardia, (units (unknown) date) with exertional unknown) angina/dyspnea, acute, present on admission (unknown) (no (unknown) (unknown) 03/25/22 History (units (unknown) date) unknown) (unknown) (no (unknown) (unknown) 2. History of (units ( unknown) date) recent NSTEMI, unknown) requiring cardiac catheterization, acute on (unknown) (no (unknown) (unknown) 21:41 05/09/22 (units (unknown) date) unknown) (unknown) (no (unknown) (unknown) 21:59 21:59 21:59 (units (unknown) date) unknown) (unknown) (no (unknown) (unknown) 22:00 05/09/22 (units (unknown) date) unknown) (unknown) (no (unknown) (unknown) 22:01 05/09/22 (units (unknown) date) unknown) (unknown) (no (unknown) (unknown) 22:01 (units (unkno wn) date) unknown) (unknown) (no (unknown) (unknown) 22:05 (units (unkno wn) date) unknown) (unknown) (no (unknown) (unknown) 22:30 05/09/22 (units (unknown) date) unknown) (unknown) (no (unknown) (unknown) 22:31 05/09/22 (units (unknown) date) unknown) (unknown) (no (unknown) (unknown) 22:31 (units (unkno wn) date) unknown) (unknown) (no (unknown) (unknown) 23:00 05/09/22 (units (unknown) date) unknown) (unknown) (no (unknown) (unknown) 23:00 (units (unkno wn) date) unknown) (unknown) (no (unknown) (unknown) 23:30 05/09/22 (units (unknown) date) unknown) (unknown) (no (unknown) (unknown) 23:31 05/09/22 (units (unknown) date) unknown) (unknown) (no (unknown) (unknown) 23:31 (units (unkno wn) date) 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 Depression (units ( unknown) date) unknown) (unknown) (no (unknown) (unknown) 8. Hypothyroidism (units (unknown) date) unknown) (unknown) (no (unknown) (unknown) ALT 17 (units (unkno wn) date) unknown) (unknown) (no (unknown) (unknown) ALT (units (unkno wn) date) unknown) (unknown) (no (unknown) (unknown) APTT 50 H (units (unkn own) date) unknown) (unknown) (no (unknown) (unknown) APTT (units (unkno wn) date) unknown) (unknown) (no (unknown) (unknown) AST 26 (units (unkno wn) date) unknown) (unknown) (no (unknown) (unknown) AST (units (unkno wn) date) unknown) (unknown) (no (unknown) (unknown) Abdomen: Soft (units ( unknown) date) nontender, negative unknown) for organomegaly, or masses. Bowel sounds (unknown) (no (unknown) (unknown) Admit vitals temp (units (unknown) date) 98?, 116/68, unknown) continued bradycardia HR 41, tachypneic RR 42, O2 (unknown) (no (unknown) (unknown) Age/Sex: 72 / F (units (unknown) date) unknown) (unknown) (no (unknown) (unknown) Albumin 4.4 (units (un known) date) unknown) (unknown) (no (unknown) (unknown) Albumin (units (unkno wn) date) unknown) (unknown) (no (unknown) (unknown) Albumin/Globulin (units (unknown) date) Ratio 1.3 unknown) (unknown) (no (unknown) (unknown) Albumin/Globulin (units (unknown) date) Ratio unknown) (unknown) (no (unknown) (unknown) Alkaline (units (unkno wn) date) Phosphatase 109 unknown) (unknown) (no (unknown) (unknown) Alkaline (units (unkno wn) date) Phosphatase unknown) (unknown) (no (unknown) (unknown) All 12 point (units (un known) date) systems reviewed unknown) with the patient and are negative except otherwise (unknown) (no (unknown) (unknown) Allergies (units (unkn own) date) unknown) (unknown) (no (unknown) (unknown) Allergy/AdvReac (units (unknown) date) Type Severity unknown) Reaction Status Date / Time (unknown) (no (unknown) (unknown) Ascending aortic (units (unknown) date) aneurysm unknown) (unknown) (no (unknown) (unknown) Assessment + Plan (units (unknown) date) narrative: unknown) (unknown) (no (unknown) (unknown) Assessment + Plan (units (unknown) date) unknown) (unknown) (no (unknown) (unknown) BUN 27 H (units (unkno wn) date) unknown) (unknown) (no (unknown) (unknown) BUN (units (unkno wn) date) unknown) (unknown) (no (unknown) (unknown) BUN/Creatinine (units (unknown) date) Ratio 31.0 H unknown) (unknown) (no (unknown) (unknown) BUN/Creatinine (units (unknown) date) Ratio unknown) (unknown) (no (unknown) (unknown) Baso # (Auto) 100 (units (unknown) date) unknown) (unknown) (no (unknown) (unknown) Baso # (Auto) (units ( unknown) date) unknown) (unknown) (no (unknown) (unknown) Baso % (Auto) 0.9 (units (unknown) date) unknown) (unknown) (no (unknown) (unknown) Baso % (Auto) (units ( unknown) date) unknown) (unknown) (no (unknown) (unknown) Been Physically (units (unknown) date) Hurt or No unknown) (unknown) (no (unknown) (unknown) Blood Pressure (units (unknown) date) 114/49 L 115/52 L unknown) (unknown) (no (unknown) (unknown) Blood Pressure (units (unknown) date) 116/68 unknown) (unknown) (no (unknown) (unknown) Blood Pressure (units (unknown) date) 122/56 L unknown) (unknown) (no (unknown) (unknown) Blood Pressure (units (unknown) date) 123/51 L 129/56 L unknown) (unknown) (no (unknown) (unknown) Blood Pressure (units (unknown) date) 127/58 L 131/56 L unknown) (unknown) (no (unknown) (unknown) Blood Pressure (units (unknown) date) 133/57 L unknown) (unknown) (no (unknown) (unknown) Blood Pressure (units (unknown) date) 142/59 H unknown) (unknown) (no (unknown) (unknown) Blood Pressure [...] nown) date) unknown) (unknown) (no (unknown) (unknown) COVID PCR: (units (unk nown) date) unknown) (unknown) (no (unknown) (unknown) COVID vaccination: (units (unknown) date) unknown) (unknown) (no (unknown) (unknown) Calcium 9.4 (units (un known) date) unknown) (unknown) (no (unknown) (unknown) Calcium (units (unkno wn) date) unknown) (unknown) (no (unknown) (unknown) Carbon Dioxide 27 (units (unknown) date) unknown) (unknown) (no (unknown) (unknown) Carbon Dioxide (units (unknown) date) unknown) (unknown) (no (unknown) (unknown) Cardio: (units (unkno wn) date) Bradycardic rate unknown) and rhythm without murmur, rubs, or gallops, no (unknown) (no (unknown) (unknown) Chest: Normal AP (units (unknown) date) diameter and unknown) contour without kyphoscoliosis, no nasal flaring, (unknown) (no (unknown) (unknown) Chief complaint: (units (unknown) date) heart is unknown) fluctuating, uncontrolled temperature (unknown) (no (unknown) (unknown) Chloride 97 L (units ( unknown) date) unknown) (unknown) (no (unknown) (unknown) Chloride (units (unkno wn) date) unknown) (unknown) (no (unknown) (unknown) Code status: (units (u nknown) date) unknown) (unknown) (no (unknown) (unknown) Continue (units (unkno wn) date) levothyroxine unknown) (unknown) (no (unknown) (unknown) Continue (units (unkno wn) date) outpatient dose of unknown) Lamictal.? She also uses diazepam at bedtime for (unknown) (no (unknown) (unknown) Creatinine 0.87 (units (unknown) date) unknown) (unknown) (no (unknown) (unknown) Creatinine (units (unk nown) date) unknown) (unknown) (no (unknown) (unknown) Critical Care (units ( unknown) date) time: unknown) (unknown) (no (unknown) (unknown) : 1950 (units (unknown) date) Acct:[id number] unknown) (unknown) (no (unknown) (unknown) DVT/VTE (units (unkno wn) date) prophylaxis: unknown) (unknown) (no (unknown) (unknown) Date Patient Seen: (units (unknown) date) 05/10/22 unknown) (unknown) (no (unknown) (unknown) Date of Service: (units (unknown) date) 05/10/22 unknown) (unknown) (no (unknown) (unknown) Disposition: (units (u nknown) date) unknown) (unknown) (no (unknown) (unknown) Environment (units (un known) date) unknown) (unknown) (no (unknown) (unknown) Eos # (Auto) 100 (units (unknown) date) unknown) (unknown) (no (unknown) (unknown) Eos # (Auto) (units (u nknown) date) unknown) (unknown) (no (unknown) (unknown) Eos % (Auto) 1.0 L (units (unknown) date) unknown) (unknown) (no (unknown) (unknown) Eos % (Auto) (units (u nknown) date) unknown) (unknown) (no (unknown) (unknown) Estimated GFR > 60 (units (unknown) date) unknown) (unknown) (no (unknown) (unknown) Estimated GFR (units ( unknown) date) unknown) (unknown) (no (unknown) (unknown) Carlos for ?too (units (unknown) date) bad valves and unknown) aortic aneurysm?.? After TX with metoprolol 50 (unknown) (no (unknown) (unknown) Exam Narrative: (units (unknown) date) unknown) (unknown) (no (unknown) (unknown) Exam (units (unkno wn) date) unknown) (unknown) (no (unknown) (unknown) Exception-the (units (u nknown) date) patient is not unknown) eligible for medication reconciliation; the patient (unknown) (no (unknown) (unknown) Family + Social (units (unknown) date) History unknown) (unknown) (no (unknown) (unknown) Family History (units (unknown) date) (Reviewed 05/10/22 unknown) @ 02:26 [facility]) (unknown) (no (unknown) (unknown) Father No problems (units (unknown) date) noted. unknown) (unknown) (no (unknown) (unknown) Feels Safe in (units ( unknown) date) Current Yes unknown) (unknown) (no (unknown) (unknown) Fibromyalgia (units (u nknown) date) unknown) (unknown) (no (unknown) (unknown) General: Patient (units (unknown) date) is a unknown) well-developed, well-nourished in no distress at this (unknown) (no (unknown) (unknown) Globulin 3.3 (units (u nknown) date) unknown) (unknown) (no (unknown) (unknown) Globulin (units (unkno wn) date) unknown) (unknown) (no (unknown) (unknown) Glucose 103 (units (un known) date) unknown) (unknown) (no (unknown) (unknown) Glucose (units (unkno wn) date) unknown) (unknown) (no (unknown) (unknown) HEENT: (units (unkno wn) date) Normocephalic, unknown) atraumatic, extraocular muscles intact, oral pharynx is (unknown) (no (unknown) (unknown) Hct 42.9 (units (unkno wn) date) unknown) (unknown) (no (unknown) (unknown) Hct (units (unkno wn) date) unknown) (unknown) (no (unknown) (unknown) Hgb 14.2 (units (unkno wn) date) unknown) (unknown) (no [...] date) unknown) (unknown) (no (unknown) (unknown) I confirmed that (units (unknown) date) the patient's unknown) advanced care plan is present, Code status is (unknown) (no (unknown) (unknown) I have personally (units (unknown) date) reviewed patient's unknown) chart notes from PCP, specialists, (unknown) (no (unknown) (unknown) I have utilized (units (unknown) date) all available unknown) immediate resources to obtain, update, or review (unknown) (no (unknown) (unknown) I spent a total of (units (unknown) date) [] minutes of unknown) critical care time on this patient's care (unknown) (no (unknown) (unknown) INR 1.2 (units (unkno wn) date) unknown) (unknown) (no (unknown) (unknown) INR (units (unkno wn) date) unknown) (unknown) (no (unknown) (unknown) [facility] (units (unknown) date) [address] unknown) [place] [address] (unknown) (no (unknown) (unknown) Laboratory Results (units (unknown) date) - last 24 hr unknown) (unknown) (no (unknown) (unknown) Labs (units (unkno wn) date) unknown) (unknown) (no (unknown) (unknown) Labs: (units (unkno wn) date) unknown) (unknown) (no (unknown) (unknown) Duncan Rock is a (units (unknown) date) 72-year-old female unknown) with a PMH of idiopathic pulmonary (unknown) (no (unknown) (unknown) Lipase 152 (units (unk nown) date) unknown) (unknown) (no (unknown) (unknown) Lipase (units (unkno wn) date) unknown) (unknown) (no (unknown) (unknown) Lungs: (units (unkno wn) date) Auscultation of all unknown) lung barney are clear without adventitious sounds, (unknown) (no (unknown) (unknown) Lymph # (Auto) (units (unknown) date) 1700 unknown) (unknown) (no (unknown) (unknown) Lymph # (Auto) (units (unknown) date) unknown) (unknown) (no (unknown) (unknown) Lymph % (Auto) (units (unknown) date) 18.2 L unknown) (unknown) (no (unknown) (unknown) Lymph % (Auto) (units (unknown) date) unknown) (unknown) (no (unknown) (unknown) MCH 28.0 (units (unkno wn) date) unknown) (unknown) (no (unknown) (unknown) MCH (units (unkno wn) date) unknown) (unknown) (no (unknown) (unknown) MCHC 33.0 (units (unkn own) date) unknown) (unknown) (no (unknown) (unknown) MCHC (units (unkno wn) date) unknown) (unknown) (no (unknown) (unknown) MCV 84.9 (units (unkno wn) date) unknown) (unknown) (no (unknown) (unknown) MCV (units (unkno wn) date) unknown) (unknown) (no (unknown) (unknown) Magnesium 1.9 (units ( unknown) date) unknown) (unknown) (no (unknown) (unknown) Magnesium (units (unkn own) date) unknown) (unknown) (no (unknown) (unknown) Measuring 6.4 cm.? (units (unknown) date) She will need close unknown) follow-up.? She is on metoprolol for (unknown) (no (unknown) (unknown) Medical History (units (unknown) date) (Reviewed 05/10/22 unknown) @ 02:25 by MARGE Parikh) (unknown) (no (unknown) (unknown) Medication (units (unk nown) date) Instructions unknown) Recorded Confirmed Type (unknown) (no (unknown) (unknown) Meds (units (unkno wn) date) unknown) (unknown) (no (unknown) (unknown) Mobile # (Auto) 700 (units (unknown) date) unknown) (unknown) (no (unknown) (unknown) Mobile # (Auto) (units ( unknown) date) unknown) (unknown) (no (unknown) (unknown) Mobile % (Auto) 7.7 (units (unknown) date) unknown) (unknown) (no (unknown) (unknown) Mobile % (Auto) (units ( unknown) date) unknown) (unknown) (no (unknown) (unknown) Mother TIA (units (unk nown) date) (transient ischemic unknown) attack) (unknown) (no (unknown) (unknown) Musculoskeletal: (units (unknown) date) Muscle strength and unknown) tone are equal within normal limits, no (unknown) (no (unknown) (unknown) Myocardial (units (unk nown) date) infarction unknown) (unknown) (no (unknown) (unknown) Narrative (units (unkn own) date) unknown) (unknown) (no (unknown) (unknown) Narrative: (units (unk nown) date) unknown) (unknown) (no (unknown) (unknown) Negative for JVD (units (unknown) date) unknown) (unknown) (no (unknown) (unknown) Neuro: Alert and (units (unknown) date) orientated x3, unknown) strength is +5/5 in all extremities, sensation (unknown) (no (unknown) (unknown) Neut # (Auto) 6800 (units (unknown) date) unknown) (unknown) (no (unknown) (unknown) Neut # (Auto) (units ( unknown) date) unknown) (unknown) (no (unknown) (unknown) Neut % (Auto) 72.2 (units (unknown) date) unknown) (unknown) (no (unknown) (unknown) Neut % (Auto) (units ( unknown) date) unknown) (unknown) (no (unknown) (unknown) Objective (units (unkn own) date) unknown) (unknown) (no (unknown) (unknown) On admit patient (units (unknown) date) denies chest pain, unknown) shortness in breath, headache, changes in (unknown) (no (unknown) (unknown) Oxygen Delivery (units (unknown) date) Method Room Air unknown) (unknown) (no (unknown) (unknown) Oxygen Delivery (units (unknown) date) Method unknown) (unknown) (no (unknown) (unknown) PT 13.5 H (units (unkn own) date) unknown) (unknown) (no (unknown) (unknown) PT (units (unkno wn) date) unknown) (unknown) (no (unknown) (unknown) Patient History (units (unknown) date) unknown) (unknown) (no (unknown) (unknown) Patient takes (units ( unknown) date) fentanyl 75 mcg Q unknown) 72 hours.? Percocet q.4-6 hours (unknown) (no (unknown) (unknown) Patient: (units (unkno wn) date) Duncan Rock unknown) MR#: [id number] (unknown) (no (unknown) (unknown) Plt Count 328 (units ( unknown) date) unknown) (unknown) (no (unknown) (unknown) Plt Count (units (unkn own) date) unknown) (unknown) (no (unknown) (unknown) Potassium 4.4 (units ( unknown) date) unknown) (unknown) (no (unknown) (unknown) Potassium (units (unkn own) date) unknown) (unknown) (no (unknown) (unknown) [place] (units (unknown) date) for ?too bad valves unknown) and aortic aneurysm?.? After TX with (unknown) (no (unknown) (unknown) Provider: (units (unkn own) date) May Sloan unknown) [employer]PRENTICE-BC (unknown) (no (unknown) (unknown) Proxy: Heraclio (units (unknown) date) Emery, perfecto unknown) partner (unknown) (no (unknown) (unknown) Psych: Patient has (units (unknown) date) a well-kept unknown) appearance, appropriate affect, mental status (unknown) (no (unknown) (unknown) Pulse Oximetry 100 (units (unknown) date) unknown) (unknown) (no (unknown) (unknown) Pulse Oximetry 96 (units (unknown) date) 96 unknown) (unknown) (no (unknown) (unknown) Pulse Oximetry 96 (units (unknown) date) 98 unknown) (unknown) (no (unknown) (unknown) Pulse Oximetry 97 (units (unknown) date) 97 unknown) (unknown) (no (unknown) (unknown) Pulse Oximetry 97 (units (unknown) date) unknown) (unknown) (no (unknown) (unknown) Pulse Oximetry 98 (units (unknown) date) unknown) (unknown) (no (unknown) (unknown) Pulse Oximetry 99 (units (unknown) date) 98 97 unknown) (unknown) (no (unknown) (unknown) Pulse Rate 41 L 41 (units (unknown) date) L unknown) (unknown) (no (unknown) (unknown) Pulse Rate 41 L (units (unknown) date) unknown) (unknown) (no (unknown) (unknown) Pulse Rate 42 L 41 (units (unknown) date) L unknown) (unknown) (no (unknown) (unknown) Pulse Rate 42 L 43 (units (unknown) date) L 43 L unknown) (unknown) (no (unknown) (unknown) Pulse Rate 43 L 45 (units (unknown) date) L unknown) (unknown) (no (unknown) (unknown) Pulse Rate 44 L 43 (units (unknown) date) L unknown) (unknown) (no (unknown) (unknown) Pulse Rate 45 L 43 (units (unknown) date) L unknown) (unknown) (no (unknown) (unknown) RBC 5.06 (units (unkno wn) date) unknown) (unknown) (no (unknown) (unknown) RBC (units (unkno wn) date) unknown) (unknown) (no (unknown) (unknown) RDW 15.0 H (units (unk nown) date) unknown) (unknown) (no (unknown) (unknown) RDW (units (unkno wn) date) unknown) (unknown) (no (unknown) (unknown) Respiratory Rate (units (unknown) date) 18 44 H unknown) (unknown) (no (unknown) (unknown) Respiratory Rate (units (unknown) date) 20 19 unknown) (unknown) (no (unknown) (unknown) Respiratory Rate (units (unknown) date) 21 42 H unknown) (unknown) (no (unknown) (unknown) Respiratory Rate (units (unknown) date) 22 unknown) (unknown) (no (unknown) (unknown) Respiratory Rate (units (unknown) date) 23 24 unknown) (unknown) (no (unknown) (unknown) Respiratory Rate (units (unknown) date) 42 H 42 H unknown) (unknown) (no (unknown) (unknown) Respiratory Rate (units (unknown) date) 42 H unknown) (unknown) (no (unknown) (unknown) Respiratory Rate (units (unknown) date) 43 H 12 14 unknown) (unknown) (no (unknown) (unknown) Respiratory Rate (units (unknown) date) 43 H unknown) (unknown) (no (unknown) (unknown) Restrictive lung (units (unknown) date) disease unknown) (unknown) (no (unknown) (unknown) Review of Systems (units (unknown) date) unknown) (unknown) (no (unknown) (unknown) SARS-CoV-2 (PCR) (units (unknown) date) Negative unknown) (unknown) (no (unknown) (unknown) SARS-CoV-2 (PCR) (units (unknown) date) unknown) (unknown) (no (unknown) (unknown) Safety + (units (unkno wn) date) Behavioral: unknown) (unknown) (no (unknown) (unknown) She is not on any (units (unknown) date) outpatient unknown) medications or inhalers. (unknown) (no (unknown) (unknown) Signed By: (units (unk nown) date) unknown) (unknown) (no (unknown) (unknown) Skin: Warm dry and (units (unknown) date) intact without unknown) rashes, ulcerations or petechiae. 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 unknown) (unknown) (no (unknown) (unknown) Surgical History (units (unknown) date) (Reviewed 05/10/22 unknown) @ 02:25 by May Sloan [facility]) (unknown) (no (unknown) (unknown) Surrogate decision (units (unknown) date) maker: unknown) (unknown) (no (unknown) (unknown) Temperature 98 F (units (unknown) date) unknown) (unknown) (no (unknown) (unknown) Temperature (units (un known) date) unknown) (unknown) (no (unknown) (unknown) Threatened By a (units (unknown) date) Person unknown) (unknown) (no (unknown) (unknown) Time Patient Seen: (units (unknown) date) 02:13 unknown) (unknown) (no (unknown) (unknown) Time Spent With (units (unknown) date) Patient unknown) (unknown) (no (unknown) (unknown) Tobacco + (units (unkn own) date) Substance use: unknown) (unknown) (no (unknown) (unknown) Tobacco type (units (u nknown) date) cigarettes unknown) (unknown) (no (unknown) (unknown) Total Bilirubin (units (unknown) date) 0.8 unknown) (unknown) (no (unknown) (unknown) Total Bilirubin (units (unknown) date) unknown) (unknown) (no (unknown) (unknown) Total Creatine (units (unknown) date) Kinase 44 unknown) (unknown) (no (unknown) (unknown) Total Creatine (units (unknown) date) Kinase unknown) (unknown) (no (unknown) (unknown) Total Protein 7.7 (units (unknown) date) unknown) (unknown) (no (unknown) (unknown) Total Protein (units ( unknown) date) unknown) (unknown) (no (unknown) (unknown) Troponin I 0.018 (units (unknown) date) unknown) (unknown) (no (unknown) (unknown) Troponin I (units (unk nown) date) unknown) (unknown) (no (unknown) (unknown) Vital Signs (units (un known) date) unknown) (unknown) (no (unknown) (unknown) WBC 9.4 (units (unkno wn) date) unknown) (unknown) (no (unknown) (unknown) WBC (units (unkno wn) date) unknown) (unknown) (no (unknown) (unknown) [Embedded Image (units (unknown) date) Not Available] unknown) (unknown) (no (unknown) (unknown) [From ] (units ( unknown) date) unknown) (unknown) (no (unknown) (unknown) abnormalities (units ( unknown) date) prolonged QTC 494 unknown) without ST or T-wave changes. Last echo 10/05 (unknown) (no (unknown) (unknown) adhesive tape (units ( unknown) date) AdvReac Verified unknown) 05/09/22 21:46 (unknown) (no (unknown) (unknown) alcohol intake (units (unknown) date) current unknown) (unknown) (no (unknown) (unknown) alcohol intake (units (unknown) date) frequency 0-2 unknown) drinks per day (unknown) (no (unknown) (unknown) and left hip (units (u nknown) date) fracture ORIF with unknown) ARF 03/24/2022??Followe d by Cardiology at (unknown) (no (unknown) (unknown) angina/shortness (units (unknown) date) of breath that unknown) resolves with nitroglycerin occurring more (unknown) (no (unknown) (unknown) are present in all (units (unknown) date) 4 quadrants without unknown) guarding or rebound, no CVA tenderness. (unknown) (no (unknown) (unknown) attitude thought (units (unknown) date) context and unknown) judgment are appropriate for age. (unknown) (no (unknown) (unknown) blood pressure (units (unknown) date) control. unknown) (unknown) (no (unknown) (unknown) cardiac demand (units (unknown) date) ischemia. unknown) (unknown) (no (unknown) (unknown) cardiology office (units (unknown) date) today advised she unknown) come in for further evaluation.? She (unknown) (no (unknown) (unknown) carotid bruit, no (units (unknown) date) cardiac pulsations unknown) present. (unknown) (no (unknown) (unknown) changes, (units (unkno wn) date) constipation, unknown) incontinence, melena, rashes, recent changes to (unknown) (no (unknown) (unknown) chills, cough, (units (unknown) date) recent exposure to unknown) illness, abdominal pain, nausea, vomiting, (unknown) (no (unknown) (unknown) cholecalciferol (units (unknown) date) (vitamin D3) 50 50 unknown) mcg PO DAILY 03/25/22 03/25/22 History (unknown) (no (unknown) (unknown) chronic, present (units (unknown) date) on admission unknown) (unknown) (no (unknown) (unknown) clear and mucous (units (unknown) date) membranes are unknown) moist. Neck is supple and symmetric, trachea is (unknown) (no (unknown) (unknown) clearance 42, PT (units (unknown) date) 13.5 although INR unknown) stable 1.2 PTT 50, troponin 0.018, COVID is (unknown) (no (unknown) (unknown) decreasing the (units (unknown) date) metoprolol dose by unknown) half and adding 2.5 amlodipine, and repeating (unknown) (no (unknown) (unknown) deformity, (units (unk nown) date) crepitus, unknown) effusions, cyanosis, clubbing or edema present. Full range (unknown) (no (unknown) (unknown) diagnostic (units (unk nown) date) imaging, and unknown) laboratory results. (unknown) (no (unknown) (unknown) diazepam 10 mg (units (unknown) date) tablet (Valium) 10 unknown) mg PO BEDTIME 03/25/22 03/25/22 History (unknown) (no (unknown) (unknown) difficulty with (units (unknown) date) ambulation, recent unknown) falls, head injury, LOC, fever, body aches, (unknown) (no (unknown) (unknown) documented and/or (units (unknown) date) surrogate decision unknown) maker is listed in the patient's medical (unknown) (no (unknown) (unknown) documented. (units (un known) date) unknown) (unknown) (no (unknown) (unknown) dramatically (units (u nknown) date) decreasing her unknown) activity level. Her cardiology office today advised (unknown) (no (unknown) (unknown) due to (units (unkno wn) date) bradycardia, unknown) exertional angina/dyspnea. (unknown) (no (unknown) (unknown) echo, with urgent (units (unknown) date) follow-up in their unknown) clinic. Patient admitted for observation (unknown) (no (unknown) (unknown) fatigue. (units (unkno wn) date) unknown) (unknown) (no (unknown) (unknown) fentanyl 75 mcg/hr (units (unknown) date) transdermal 75 mcg unknown) transdermal 3XD pain 03/23/22 03/23/22 (unknown) (no (unknown) (unknown) fibrosis, HTN, (units ( unknown) date) hypothyroid, unknown) fibromyalgia, ascending aortic aneurysm, depression, (unknown) (no (unknown) (unknown) fluoxetine 40 mg (units (unknown) date) capsule (Prozac) 40 unknown) mg PO DAILY ##0 11/29/12 03/25/22 History (unknown) (no (unknown) (unknown) frequently, slow (units (unknown) date) heart beat and over unknown) last 24 hours chills and significantly (unknown) (no (unknown) (unknown) history of (units (unkn own) date) epilepsy, NSTEMI unknown) 03/07-pending cardiac follow-up/catheteri zation, and (unknown) (no (unknown) (unknown) history of (units (unk nown) date) epilepsy, NSTEMI unknown) 03/07-pending cardiac follow-up/catheteri zation, (unknown) (no (unknown) (unknown) household members (units (unknown) date) significant other unknown) (unknown) (no (unknown) (unknown) in the ED where (units (unknown) date) patient is being unknown) followed on-call safety and health manager recommended (unknown) (no (unknown) (unknown) increased fatigue (units (unknown) date) which has been unknown) dramatically decreasing her activity level. Her (unknown) (no (unknown) (unknown) is in an emergent (units (unknown) date) medical situation unknown) were delaying treatment would jeopardize (unknown) (no (unknown) (unknown) lamotrigine 100 mg (units (unknown) date) tablet 100 mg PO unknown) BEDTIME 03/25/22 03/25/22 History (unknown) (no (unknown) (unknown) lamotrigine 100 mg (units (unknown) date) tablet 50 mg PO unknown) DAILY 03/25/22 03/25/22 History (unknown) (no (unknown) (unknown) left hip fracture (units (unknown) date) ORIF with ARF unknown) 03/24/2022??Followe d by Cardiology at [facility] (unknown) (no (unknown) (unknown) levothyroxine 75 (units (unknown) date) mcg tablet 75 mcg unknown) PO DAILY 03/25/22 03/25/22 History (unknown) (no (unknown) (unknown) mcg (2,000 unit) (units (unknown) date) tablet unknown) (unknown) (no (unknown) (unknown) medication, (units (un known) date) illness, injury, or unknown) trauma. (unknown) (no (unknown) (unknown) metoprolol 50 mg (units (unknown) date) b.i.d. and unknown) complains of low energy with exertional (unknown) (no (unknown) (unknown) metoprolol (units (unk nown) date) tartrate 50 mg unknown) tablet 50 mg PO BID 03/25/22 03/25/22 History (unknown) (no (unknown) (unknown) mg b.i.d. and (units (u nknown) date) complains of low unknown) energy with exertional angina/shortness of breath (unknown) (no (unknown) (unknown) mg tablet (units (unkn own) date) (Percocet) 4-6) unknown) (unknown) (no (unknown) (unknown) midline, no (units (un known) date) adenopathy, no unknown) thyroid enlargement, nontender, no masses palpated. (unknown) (no (unknown) (unknown) negative. (units (unkn own) date) Patient's EKG sinus unknown) Yves rate of 44 LVH with repolarization (unknown) (no (unknown) (unknown) of motion intact (units (unknown) date) radial and pedal unknown) pulses are normal. (unknown) (no (unknown) (unknown) orthopnea, lower (units (unknown) date) extremity edema, unknown) headaches but overall general malaise and (unknown) (no (unknown) (unknown) over last 24 hours (units (unknown) date) chills and unknown) significantly increased fatigue which has been (unknown) (no (unknown) (unknown) overall general (units (unknown) date) malaise and unknown) fatigue. (unknown) (no (unknown) (unknown) oxycodone 5 mg (units (unknown) date) tablet 5 mg PO Q4HR unknown) PRN Pain, Moderate 03/28/22 Rx (unknown) (no (unknown) (unknown) oxycodone-acetamin (units (unknown) date) ophen 5 mg-325 1 unknown) tab PO Q6H PRN Pain (Scale Score 03/25/22 (unknown) (no (unknown) (unknown) patch (units (unkno wn) date) unknown) (unknown) (no (unknown) (unknown) record. (units (unkno wn) date) unknown) (unknown) (no (unknown) (unknown) reports no overt (units (unknown) date) fevers, cough, unknown) orthopnea, lower extremity edema, headaches but (unknown) (no (unknown) (unknown) retractions, or (units (unknown) date) tachypneic labored unknown) (unknown) (no (unknown) (unknown) saturation 97% on (units (unknown) date) room air. CBC unknown) unremarkable, chloride 97, BUN 27, creatinine (unknown) (no (unknown) (unknown) she come in for (units (unknown) date) further unknown) evaluation.? She reports no overt fevers, cough, (unknown) (no (unknown) (unknown) sleep. (units (unkno wn) date) unknown) (unknown) (no (unknown) (unknown) sulfamethoxazole (units (unknown) date) Allergy Verified unknown) 05/09/22 21:46 (unknown) (no (unknown) (unknown) that resolves with (units (unknown) date) nitroglycerin unknown) occurring more frequently, slow heart beat and (unknown) (no (unknown) (unknown) the patient's (units ( unknown) date) current unknown) medications. (unknown) (no (unknown) (unknown) the patient's (units ( unknown) date) health. unknown) (unknown) (no (unknown) (unknown) thoracic aorta (units (unknown) date) redemonstrated, unknown) enlarged heart. [facility] was consulted (unknown) (no (unknown) (unknown) time. (units (unkno wn) date) unknown) (unknown) (no (unknown) (unknown) to touch intact, (units (unknown) date) no gross deficits unknown) noted of cranial nerves. (unknown) (no (unknown) (unknown) today; this time (units (unknown) date) is exclusive of unknown) procedural time. (unknown) (no (unknown) (unknown) trimethoprim [From (units (unknown) date) ] Allergy unknown) Verified 05/09/22 21:46 (unknown) (no (unknown) (unknown) urinary (units (unkno wn) date) incontinence/retent unknown) ion, dysuria, frequency, urgency, hematuria, bowel (unknown) (no (unknown) (unknown) vision, difficulty (units (unknown) date) swallowing, speech unknown) impairment, weakness, numbness, tingling, (unknown) (no (unknown) (unknown) vitamin B complex (units (unknown) date) 1 tab PO DAILY unknown) 03/25/22 03/25/22 History (unknown) (no (unknown) (unknown) vitamin E 400 unit (units (unknown) date) tablet 1 unit PO unknown) DAILY 03/25/22 03/25/22 History (unknown) (no (unknown) (unknown) wheezes, rhonchi, (units (unknown) date) or rales. unknown) (unknown) (no (unknown) (unknown) with an EF 60 65%. (units (unknown) date) Chest x-ray unknown) demonstrated aneurysmal dilation ascending Result panel 237 (unknown) (no date) (unknown) (unknown) 0.013 ng/ml (unkn own) (unknown) (no date) (unknown) (unknown) 0.013 ng/ml (unkn own) (unknown) (no date) (unknown) (unknown) 5.89 uiu/ml (unkn own) (unknown) (no date) (unknown) (unknown) 5.89 uiu/ml (unkn own) (unknown) (no date) (unknown) (unknown) 6090 pg/ml (unkn own) (unknown) (no date) (unknown) (unknown) 6090 pg/ml (unkn own) Result panel 238 (unknown) (no date) (unknown) (unknown) 1.74 ng/dl (unkn own) (unknown) (no date) (unknown) (unknown) 1.74 ng/dl (unkn own) (unknown) (no date) (unknown) (unknown) 5.89 uiu/ml (unkn own) (unknown) (no date) (unknown) (unknown) 5.89 uiu/ml (unkn own) Result panel 239 (unknown) (no date) (unknown) (unknown) > 60 ml/min (unkn own) (unknown) (no date) (unknown) (unknown) > 60 ml/min (unkn own) (unknown) (no date) (unknown) (unknown) 0.89 mg/dl (unkn own) (unknown) (no date) (unknown) (unknown) 134 mmol/l (unkn own) (unknown) (no date) (unknown) (unknown) 27 mg/dl (unkn own) (unknown) (no date) (unknown) (unknown) 28 mmol/l (unkn own) (unknown) (no date) (unknown) (unknown) 30.3 (units unknown) (unknown) (unknown) (no date) (unknown) (unknown) 4.1 mmol/l (unkn own) (unknown) (no date) (unknown) (unknown) 9.2 mg/dl (unkn own) (unknown) (no date) (unknown) (unknown) 96 mmol/l (unkn own) (unknown) (no date) (unknown) (unknown) 97 mg/dl (unkn own) (unknown) (no date) (unknown) (unknown) 97 mg/dl (unkn own) Result panel 240 (unknown) (no date) (unknown) (unknown) 0.014 ng/ml (unkn own) (unknown) (no date) (unknown) (unknown) 0.014 ng/ml (unkn own) Result panel 241 (unknown) (no (unknown) (unknown) (no value) (units (unk nown) date) unknown) (unknown) (no (unknown) (unknown) (4-6) #30 tabs (units (unknown) date) unknown) (unknown) (no (unknown) (unknown) (Lamictal) (units (unk nown) date) unknown) (unknown) (no (unknown) (unknown) (past 8 hours): (units (unknown) date) unknown) (unknown) (no (unknown) (unknown) -02/2022 (units (unkno wn) date) unknown) (unknown) (no (unknown) (unknown) -03/23/2022 admit: (units (unknown) date) Troponin was 0.050, unknown) down trending to 0.041.? It likely to be (unknown) (no (unknown) (unknown) -initial troponin (units (unknown) date) 0.018 unknown) (unknown) (no (unknown) (unknown) 00:00 05/10/22 (units (unknown) date) unknown) (unknown) (no (unknown) (unknown) 00:30 05/10/22 (units (unknown) date) unknown) (unknown) (no (unknown) (unknown) 00:30 (units (unkno wn) date) unknown) (unknown) (no (unknown) (unknown) 05/09/22 05/09/22 (units (unknown) date) 05/09/22 unknown) (unknown) (no (unknown) (unknown) 05/09/22 21:59 (units (unknown) date) unknown) (unknown) (no (unknown) (unknown) 05/09/22 (units (unkno wn) date) unknown) (unknown) (no (unknown) (unknown) 05/10/22 (units (unkno wn) date) unknown) (unknown) (no (unknown) (unknown) 01:00 05/10/22 (units (unknown) date) unknown) (unknown) (no (unknown) (unknown) 01:01 05/10/22 (units (unknown) date) unknown) (unknown) (no (unknown) (unknown) 01:01 (units (unkno wn) date) unknown) (unknown) (no (unknown) (unknown) 01:30 05/10/22 (units (unknown) date) unknown) (unknown) (no (unknown) (unknown) 01:31 05/10/22 (units (unknown) date) unknown) (unknown) (no (unknown) (unknown) 01:31 (units (unkno wn) date) unknown) (unknown) (no (unknown) (unknown) [id number] (units (unkno wn) date) unknown) (unknown) (no (unknown) (unknown) 02:00 05/10/22 (units (unknown) date) unknown) (unknown) (no (unknown) (unknown) 02:01 (units (unkno wn) date) unknown) (unknown) (no (unknown) (unknown) 1. Bradycardia, (units (unknown) date) with exertional unknown) angina/dyspnea, acute, present on admission (unknown) (no (unknown) (unknown) 03/25/22 History (units (unknown) date) unknown) (unknown) (no (unknown) (unknown) 2. History of (units ( unknown) date) recent NSTEMI, unknown) requiring cardiac catheterization, acute on (unknown) (no (unknown) (unknown) 21:41 05/09/22 (units (unknown) date) unknown) (unknown) (no (unknown) (unknown) 21:59 21:59 21:59 (units (unknown) date) unknown) (unknown) (no (unknown) (unknown) 22:00 05/09/22 (units (unknown) date) unknown) (unknown) (no (unknown) (unknown) 22:01 05/09/22 (units (unknown) date) unknown) (unknown) (no (unknown) (unknown) 22:01 (units (unkno wn) date) unknown) (unknown) (no (unknown) (unknown) 22:05 (units (unkno wn) date) unknown) (unknown) (no (unknown) (unknown) 22:30 05/09/22 (units (unknown) date) unknown) (unknown) (no (unknown) (unknown) 22:31 05/09/22 (units (unknown) date) unknown) (unknown) (no (unknown) (unknown) 22:31 (units (unkno wn) date) unknown) (unknown) (no (unknown) (unknown) 23:00 05/09/22 (units (unknown) date) unknown) (unknown) (no (unknown) (unknown) 23:00 (units (unkno wn) date) unknown) (unknown) (no (unknown) (unknown) 23:30 05/09/22 (units (unknown) date) unknown) (unknown) (no (unknown) (unknown) 23:31 05/09/22 (units (unknown) date) unknown) (unknown) (no (unknown) (unknown) 23:31 (units (unkno wn) date) 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 Depression (units ( unknown) date) unknown) (unknown) (no (unknown) (unknown) 8. Hypothyroidism (units (unknown) date) unknown) (unknown) (no (unknown) (unknown) ALT 17 (units (unkno wn) date) unknown) (unknown) (no (unknown) (unknown) ALT (units (unkno wn) date) unknown) (unknown) (no (unknown) (unknown) APTT 50 H (units (unkn own) date) unknown) (unknown) (no (unknown) (unknown) APTT (units (unkno wn) date) unknown) (unknown) (no (unknown) (unknown) AST 26 (units (unkno wn) date) unknown) (unknown) (no (unknown) (unknown) AST (units (unkno wn) date) unknown) (unknown) (no (unknown) (unknown) Abdomen: Soft (units ( unknown) date) nontender, negative unknown) for organomegaly, or masses. Bowel sounds (unknown) (no (unknown) (unknown) Admit vitals temp (units (unknown) date) 98?, 116/68, unknown) continued bradycardia HR 41, tachypneic RR 42, O2 (unknown) (no (unknown) (unknown) Age/Sex: 72 / F (units (unknown) date) unknown) (unknown) (no (unknown) (unknown) Albumin 4.4 (units (un known) date) unknown) (unknown) (no (unknown) (unknown) Albumin (units (unkno wn) date) unknown) (unknown) (no (unknown) (unknown) Albumin/Globulin (units (unknown) date) Ratio 1.3 unknown) (unknown) (no (unknown) (unknown) Albumin/Globulin (units (unknown) date) Ratio unknown) (unknown) (no (unknown) (unknown) Alkaline (units (unkno wn) date) Phosphatase 109 unknown) (unknown) (no (unknown) (unknown) Alkaline (units (unkno wn) date) Phosphatase unknown) (unknown) (no (unknown) (unknown) All 12 point (units (un known) date) systems reviewed unknown) with the patient and are negative except otherwise (unknown) (no (unknown) (unknown) Allergies (units (unkn own) date) unknown) (unknown) (no (unknown) (unknown) Allergy/AdvReac (units (unknown) date) Type Severity unknown) Reaction Status Date / Time (unknown) (no (unknown) (unknown) Ascending aortic (units (unknown) date) aneurysm unknown) (unknown) (no (unknown) (unknown) Assessment + Plan (units (unknown) date) narrative: unknown) (unknown) (no (unknown) (unknown) Assessment + Plan (units (unknown) date) unknown) (unknown) (no (unknown) (unknown) BUN 27 H (units (unkno wn) date) unknown) (unknown) (no (unknown) (unknown) BUN (units (unkno wn) date) unknown) (unknown) (no (unknown) (unknown) BUN/Creatinine (units (unknown) date) Ratio 31.0 H unknown) (unknown) (no (unknown) (unknown) BUN/Creatinine (units (unknown) date) Ratio unknown) (unknown) (no (unknown) (unknown) Baso # (Auto) 100 (units (unknown) date) unknown) (unknown) (no (unknown) (unknown) Baso # (Auto) (units ( unknown) date) unknown) (unknown) (no (unknown) (unknown) Baso % (Auto) 0.9 (units (unknown) date) unknown) (unknown) (no (unknown) (unknown) Baso % (Auto) (units ( unknown) date) unknown) (unknown) (no (unknown) (unknown) Been Physically (units (unknown) date) Hurt or No unknown) (unknown) (no (unknown) (unknown) Blood Pressure (units (unknown) date) 114/49 L 115/52 L unknown) (unknown) (no (unknown) (unknown) Blood Pressure (units (unknown) date) 116/68 unknown) (unknown) (no (unknown) (unknown) Blood Pressure (units (unknown) date) 122/56 L unknown) (unknown) (no (unknown) (unknown) Blood Pressure (units (unknown) date) 123/51 L 129/56 L unknown) (unknown) (no (unknown) (unknown) Blood Pressure (units (unknown) date) 127/58 L 131/56 L unknown) (unknown) (no (unknown) (unknown) Blood Pressure (units (unknown) date) 133/57 L unknown) (unknown) (no (unknown) (unknown) Blood Pressure (units (unknown) date) 142/59 H unknown) (unknown) (no (unknown) (unknown) Blood Pressure [...] nown) date) unknown) (unknown) (no (unknown) (unknown) COVID PCR: (units (unk nown) date) unknown) (unknown) (no (unknown) (unknown) COVID vaccination: (units (unknown) date) unknown) (unknown) (no (unknown) (unknown) Calcium 9.4 (units (un known) date) unknown) (unknown) (no (unknown) (unknown) Calcium (units (unkno wn) date) unknown) (unknown) (no (unknown) (unknown) Carbon Dioxide 27 (units (unknown) date) unknown) (unknown) (no (unknown) (unknown) Carbon Dioxide (units (unknown) date) unknown) (unknown) (no (unknown) (unknown) Cardio: (units (unkno wn) date) Bradycardic rate unknown) and rhythm (unknown) (no (unknown) (unknown) Chest: no nasal (units (unknown) date) flaring, unknown) retractions, or tachypneic labored breathing. (unknown) (no (unknown) (unknown) Chief complaint: (units (unknown) date) heart is unknown) fluctuating, uncontrolled temperature (unknown) (no (unknown) (unknown) Chloride 97 L (units ( unknown) date) unknown) (unknown) (no (unknown) (unknown) Chloride (units (unkno wn) date) unknown) (unknown) (no (unknown) (unknown) Code status: (units (u nknown) date) unknown) (unknown) (no (unknown) (unknown) Continue (units (unkno wn) date) levothyroxine unknown) (unknown) (no (unknown) (unknown) Continue (units (unkno wn) date) outpatient dose of unknown) Lamictal.? She also uses diazepam at bedtime for (unknown) (no (unknown) (unknown) Creatinine 0.87 (units (unknown) date) unknown) (unknown) (no (unknown) (unknown) Creatinine (units (unk nown) date) unknown) (unknown) (no (unknown) (unknown) Critical Care (units ( unknown) date) time: unknown) (unknown) (no (unknown) (unknown) : 1950 (units (unknown) date) Acct:[id number] unknown) (unknown) (no (unknown) (unknown) DVT/VTE (units (unkno wn) date) prophylaxis: unknown) (unknown) (no (unknown) (unknown) Date Patient Seen: (units (unknown) date) 05/10/22 unknown) (unknown) (no (unknown) (unknown) Date of Service: (units (unknown) date) 05/10/22 unknown) (unknown) (no (unknown) (unknown) Disposition: (units (u nknown) date) unknown) (unknown) (no (unknown) (unknown) Environment (units (un known) date) unknown) (unknown) (no (unknown) (unknown) Eos # (Auto) 100 (units (unknown) date) unknown) (unknown) (no (unknown) (unknown) Eos # (Auto) (units (u nknown) date) unknown) (unknown) (no (unknown) (unknown) Eos % (Auto) 1.0 L (units (unknown) date) unknown) (unknown) (no [...] wn) date) unknown) (unknown) (no (unknown) (unknown) Exception-the (units (u nknown) date) patient is not unknown) eligible for medication reconciliation; the patient (unknown) (no (unknown) (unknown) Family + Social (units (unknown) date) History unknown) (unknown) (no (unknown) (unknown) Family History (units (unknown) date) (Reviewed 05/10/22 unknown) @ 02:26 by MARGE Parikh) (unknown) (no (unknown) (unknown) Father No problems (units (unknown) date) noted. unknown) (unknown) (no (unknown) (unknown) Feels Safe in (units ( unknown) date) Current Yes unknown) (unknown) (no (unknown) (unknown) Fibromyalgia (units (u nknown) date) unknown) (unknown) (no (unknown) (unknown) General: Patient (units (unknown) date) is a thin frail unknown) appearing elderly female in no distress at (unknown) (no (unknown) (unknown) Globulin 3.3 (units (u nknown) date) unknown) (unknown) (no (unknown) (unknown) Globulin (units (unkno wn) date) unknown) (unknown) (no (unknown) (unknown) Glucose 103 (units (un known) date) unknown) (unknown) (no (unknown) (unknown) Glucose (units (unkno wn) date) unknown) (unknown) (no (unknown) (unknown) HEENT: (units (unkno wn) date) Normocephalic, unknown) atraumatic, extraocular muscles intact, oral pharynx is (unknown) (no (unknown) (unknown) Hct 42.9 (units (unkno wn) date) unknown) (unknown) (no (unknown) (unknown) Hct (units (unkno wn) date) unknown) (unknown) (no (unknown) (unknown) Hgb 14.2 (units (unkno wn) date) unknown) (unknown) (no [...] date) unknown) (unknown) (no (unknown) (unknown) I confirmed that (units (unknown) date) the patient's unknown) advanced care plan is present, Code status is (unknown) (no (unknown) (unknown) I have personally (units (unknown) date) reviewed patient's unknown) chart notes from PCP, specialists, (unknown) (no (unknown) (unknown) I have utilized (units (unknown) date) all available unknown) immediate resources to obtain, update, or review (unknown) (no (unknown) (unknown) I spent a total of (units (unknown) date) [] minutes of unknown) critical care time on this patient's care (unknown) (no (unknown) (unknown) INR 1.2 (units (unkno wn) date) unknown) (unknown) (no (unknown) (unknown) INR (units (unkno wn) date) unknown) (unknown) (no (unknown) (unknown) [facility] (units (unknown) date) [address] unknown) [place] [address] (unknown) (no (unknown) (unknown) Laboratory Results (units (unknown) date) - last 24 hr unknown) (unknown) (no (unknown) (unknown) Labs (units (unkno wn) date) unknown) (unknown) (no (unknown) (unknown) Labs: (units (unkno wn) date) unknown) (unknown) (no (unknown) (unknown) [place] is a (units (unknown) date) 72-year-old female unknown) with a PMH of idiopathic pulmonary (unknown) (no (unknown) (unknown) Lipase 152 (units (unk nown) date) unknown) (unknown) (no (unknown) (unknown) Lipase (units (unkno wn) date) unknown) (unknown) (no (unknown) (unknown) Lungs: (units (unkno wn) date) Auscultation of all unknown) lung barney are clear without adventitious sounds, (unknown) (no (unknown) (unknown) Lymph # (Auto) (units (unknown) date) 1700 unknown) (unknown) (no (unknown) (unknown) Lymph # (Auto) (units (unknown) date) unknown) (unknown) (no (unknown) (unknown) Lymph % (Auto) (units (unknown) date) 18.2 L unknown) (unknown) (no (unknown) (unknown) Lymph % (Auto) (units (unknown) date) unknown) (unknown) (no (unknown) (unknown) MCH 28.0 (units (unkno wn) date) unknown) (unknown) (no (unknown) (unknown) MCH (units (unkno wn) date) unknown) (unknown) (no (unknown) (unknown) MCHC 33.0 (units (unkn own) date) unknown) (unknown) (no (unknown) (unknown) MCHC (units (unkno wn) date) unknown) (unknown) (no (unknown) (unknown) MCV 84.9 (units (unkno wn) date) unknown) (unknown) (no (unknown) (unknown) MCV (units (unkno wn) date) unknown) (unknown) (no (unknown) (unknown) Magnesium 1.9 (units ( unknown) date) unknown) (unknown) (no (unknown) (unknown) Magnesium (units (unkn own) date) unknown) (unknown) (no (unknown) (unknown) Measuring 6.4 cm.? (units (unknown) date) She will need close unknown) follow-up.? She is on metoprolol for (unknown) (no (unknown) (unknown) Medical History (units (unknown) date) (Reviewed 05/10/22 unknown) @ 02:25 by MARGE Parikh) (unknown) (no (unknown) (unknown) Medication (units (unk nown) date) Instructions unknown) Recorded Confirmed Type (unknown) (no (unknown) (unknown) Meds (units (unkno wn) date) unknown) (unknown) (no (unknown) (unknown) Mobile # (Auto) 700 (units (unknown) date) unknown) (unknown) (no (unknown) (unknown) Mobile # (Auto) (units ( unknown) date) unknown) (unknown) (no (unknown) (unknown) Mobile % (Auto) 7.7 (units (unknown) date) unknown) (unknown) (no (unknown) (unknown) Mobile % (Auto) (units ( unknown) date) unknown) (unknown) (no (unknown) (unknown) Mother TIA (units (unk nown) date) (transient ischemic unknown) attack) (unknown) (no (unknown) (unknown) Musculoskeletal: (units (unknown) date) Muscle strength and unknown) tone are equal within normal limits, no (unknown) (no (unknown) (unknown) Myocardial (units (unk nown) date) infarction unknown) (unknown) (no (unknown) (unknown) Narrative (units (unkn own) date) unknown) (unknown) (no (unknown) (unknown) Narrative: (units (unk nown) date) unknown) (unknown) (no (unknown) (unknown) Negative for JVD (units (unknown) date) unknown) (unknown) (no (unknown) (unknown) Neuro: Alert and (units (unknown) date) orientated x3, unknown) moves all extremities, sensation to touch (unknown) (no (unknown) (unknown) Neut # (Auto) 6800 (units (unknown) date) unknown) (unknown) (no (unknown) (unknown) Neut # (Auto) (units ( unknown) date) unknown) (unknown) (no (unknown) (unknown) Neut % (Auto) 72.2 (units (unknown) date) unknown) (unknown) (no (unknown) (unknown) Neut % (Auto) (units ( unknown) date) unknown) (unknown) (no (unknown) (unknown) Objective (units (unkn own) date) unknown) (unknown) (no (unknown) (unknown) On admit patient (units (unknown) date) denies chest pain + unknown) SOB at rest, headache, changes in vision, (unknown) (no (unknown) (unknown) Oxygen Delivery (units (unknown) date) Method Room Air unknown) (unknown) (no (unknown) (unknown) Oxygen Delivery (units (unknown) date) Method unknown) (unknown) (no (unknown) (unknown) PT 13.5 H (units (unkn own) date) unknown) (unknown) (no (unknown) (unknown) PT (units (unkno wn) date) unknown) (unknown) (no (unknown) (unknown) Patient History (units (unknown) date) unknown) (unknown) (no (unknown) (unknown) Patient takes (units ( unknown) date) fentanyl 75 mcg Q unknown) 72 hours.? Percocet q.4-6 hours (unknown) (no (unknown) (unknown) Patient: (units (unkno wn) date) [place] unknown) MR#: [id number] (unknown) (no (unknown) (unknown) Plt Count 328 (units ( unknown) date) unknown) (unknown) (no (unknown) (unknown) Plt Count (units (unkn own) date) unknown) (unknown) (no (unknown) (unknown) Potassium 4.4 (units ( unknown) date) unknown) (unknown) (no (unknown) (unknown) Potassium (units (unkn own) date) unknown) (unknown) (no (unknown) (unknown) [place] [facility] (units (unknown) date) for ?too bad valves unknown) and aortic aneurysm?.? 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-BC (unknown) (no (unknown) (unknown) Proxy: Heraclio (units (unknown) date) Emery, perfecto unknown) partner (unknown) (no (unknown) (unknown) Psych: Patient has (units (unknown) date) a well-kept unknown) appearance, appropriate affect, mental status (unknown) (no (unknown) (unknown) Pulse Oximetry 100 (units (unknown) date) unknown) (unknown) (no (unknown) (unknown) Pulse Oximetry 96 (units (unknown) date) 96 unknown) (unknown) (no (unknown) (unknown) Pulse Oximetry 96 (units (unknown) date) 98 unknown) (unknown) (no (unknown) (unknown) Pulse Oximetry 97 (units (unknown) date) 97 unknown) (unknown) (no (unknown) (unknown) Pulse Oximetry 97 (units (unknown) date) unknown) (unknown) (no (unknown) (unknown) Pulse Oximetry 98 (units (unknown) date) unknown) (unknown) (no (unknown) (unknown) Pulse Oximetry 99 (units (unknown) date) 98 97 unknown) (unknown) (no (unknown) (unknown) Pulse Rate 41 L 41 (units (unknown) date) L unknown) (unknown) (no (unknown) (unknown) Pulse Rate 41 L (units (unknown) date) unknown) (unknown) (no (unknown) (unknown) Pulse Rate 42 L 41 (units (unknown) date) L unknown) (unknown) (no (unknown) (unknown) Pulse Rate 42 L 43 (units (unknown) date) L 43 L unknown) (unknown) (no (unknown) (unknown) Pulse Rate 43 L 45 (units (unknown) date) L unknown) (unknown) (no (unknown) (unknown) Pulse Rate 44 L 43 (units (unknown) date) L unknown) (unknown) (no (unknown) (unknown) Pulse Rate 45 L 43 (units (unknown) date) L unknown) (unknown) (no (unknown) (unknown) RBC 5.06 (units (unkno wn) date) unknown) (unknown) (no (unknown) (unknown) RBC (units (unkno wn) date) unknown) (unknown) (no (unknown) (unknown) RDW 15.0 H (units (unk nown) date) unknown) (unknown) (no (unknown) (unknown) RDW (units (unkno wn) date) unknown) (unknown) (no (unknown) (unknown) Respiratory Rate (units (unknown) date) 18 44 H unknown) (unknown) (no (unknown) (unknown) Respiratory Rate (units (unknown) date) 20 19 unknown) (unknown) (no (unknown) (unknown) Respiratory Rate (units (unknown) date) 21 42 H unknown) (unknown) (no (unknown) (unknown) Respiratory Rate (units (unknown) date) 22 unknown) (unknown) (no (unknown) (unknown) Respiratory Rate (units (unknown) date) 23 24 unknown) (unknown) (no (unknown) (unknown) Respiratory Rate (units (unknown) date) 42 H 42 H unknown) (unknown) (no (unknown) (unknown) Respiratory Rate (units (unknown) date) 42 H unknown) (unknown) (no (unknown) (unknown) Respiratory Rate (units (unknown) date) 43 H 12 14 unknown) (unknown) (no (unknown) (unknown) Respiratory Rate (units (unknown) date) 43 H unknown) (unknown) (no (unknown) (unknown) Restrictive lung (units (unknown) date) disease unknown) (unknown) (no (unknown) (unknown) Review of Systems (units (unknown) date) unknown) (unknown) (no (unknown) (unknown) SARS-CoV-2 (PCR) (units (unknown) date) Negative unknown) (unknown) (no (unknown) (unknown) SARS-CoV-2 (PCR) (units (unknown) date) unknown) (unknown) (no (unknown) (unknown) Safety + (units (unkno wn) date) Behavioral: unknown) (unknown) (no (unknown) (unknown) She is not on any (units (unknown) date) outpatient unknown) medications or inhalers. (unknown) (no (unknown) (unknown) Signed By: (units (unk nown) date) unknown) (unknown) (no (unknown) (unknown) Skin: Warm dry and (units (unknown) date) intact without unknown) rashes, ulcerations or petechiae. 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 unknown) (unknown) (no (unknown) (unknown) Surgical History (units (unknown) date) (Reviewed 05/10/22 unknown) @ 02:25 by May [facility]loan [facility]) (unknown) (no (unknown) (unknown) Surrogate decision (units (unknown) date) maker: unknown) (unknown) (no (unknown) (unknown) Temperature 98 F (units (unknown) date) unknown) (unknown) (no (unknown) (unknown) Temperature (units (un known) date) unknown) (unknown) (no (unknown) (unknown) Threatened By a (units (unknown) date) Person unknown) (unknown) (no (unknown) (unknown) Time Patient Seen: (units (unknown) date) 02:13 unknown) (unknown) (no (unknown) (unknown) Time Spent With (units (unknown) date) Patient unknown) (unknown) (no (unknown) (unknown) Tobacco + (units (unkn own) date) Substance use: unknown) (unknown) (no (unknown) (unknown) Tobacco type (units (u nknown) date) cigarettes unknown) (unknown) (no (unknown) (unknown) Total Bilirubin (units (unknown) date) 0.8 unknown) (unknown) (no (unknown) (unknown) Total Bilirubin (units (unknown) date) unknown) (unknown) (no (unknown) (unknown) Total Creatine (units (unknown) date) Kinase 44 unknown) (unknown) (no (unknown) (unknown) Total Creatine (units (unknown) date) Kinase unknown) (unknown) (no (unknown) (unknown) Total Protein 7.7 (units (unknown) date) unknown) (unknown) (no (unknown) (unknown) Total Protein (units ( unknown) date) unknown) (unknown) (no (unknown) (unknown) Troponin I 0.018 (units (unknown) date) unknown) (unknown) (no (unknown) (unknown) Troponin I (units (unk nown) date) unknown) (unknown) (no (unknown) (unknown) Vital Signs (units (un known) date) unknown) (unknown) (no (unknown) (unknown) WBC 9.4 (units (unkno wn) date) unknown) (unknown) (no (unknown) (unknown) WBC (units (unkno wn) date) unknown) (unknown) (no (unknown) (unknown) [Embedded Image (units (unknown) date) Not Available] unknown) (unknown) (no (unknown) (unknown) [From ] (units ( unknown) date) unknown) (unknown) (no (unknown) (unknown) abnormalities (units ( unknown) date) prolonged QTC 494 unknown) without ST or T-wave changes. Last echo 10/05 (unknown) (no (unknown) (unknown) adhesive tape (units ( unknown) date) AdvReac Verified unknown) 05/09/22 21:46 (unknown) (no (unknown) (unknown) alcohol intake (units (unknown) date) current unknown) (unknown) (no (unknown) (unknown) alcohol intake (units (unknown) date) frequency 0-2 unknown) drinks per day (unknown) (no (unknown) (unknown) and left hip (units (u nknown) date) fracture ORIF with unknown) ARF 03/24/2022??Followe d by Cardiology at (unknown) (no (unknown) (unknown) angina/shortness (units (unknown) date) of breath, unknown) (unknown) (no (unknown) (unknown) are present in all (units (unknown) date) 4 quadrants without unknown) guarding or rebound, no CVA tenderness. (unknown) (no (unknown) (unknown) attitude thought (units (unknown) date) context and unknown) judgment are appropriate for age. (unknown) (no (unknown) (unknown) b.i.d. and (units (unk nown) date) complains of low unknown) energy with exertional angina/shortness of breath (unknown) (no (unknown) (unknown) blood pressure (units (unknown) date) control. unknown) (unknown) (no (unknown) (unknown) cardiac demand (units (unknown) date) ischemia. unknown) (unknown) (no (unknown) (unknown) changes, (units (unkno wn) date) constipation, unknown) incontinence, melena, rashes, recent illness with the (unknown) (no (unknown) (unknown) chills, cough, (units (unknown) date) recent exposure to unknown) illness, abdominal pain, nausea, vomiting, (unknown) (no (unknown) (unknown) cholecalciferol (units (unknown) date) (vitamin D3) 50 50 unknown) mcg PO DAILY 03/25/22 03/25/22 History (unknown) (no (unknown) (unknown) chronic, present (units (unknown) date) on admission unknown) (unknown) (no (unknown) (unknown) clear and mucous (units (unknown) date) membranes are unknown) moist. Neck is supple and symmetric, trachea is (unknown) (no (unknown) (unknown) clearance 42, PT (units (unknown) date) 13.5 although INR unknown) stable 1.2 PTT 50, troponin 0.018, COVID is (unknown) (no (unknown) (unknown) decreasing the (units (unknown) date) metoprolol dose by unknown) half and adding 2.5 amlodipine, and repeating (unknown) (no (unknown) (unknown) deformity, (units (unk nown) date) crepitus, unknown) effusions, cyanosis, clubbing or edema present. Full range (unknown) (no (unknown) (unknown) diagnostic (units (unk nown) date) imaging, and unknown) laboratory results. (unknown) (no (unknown) (unknown) diazepam 10 mg (units (unknown) date) tablet (Valium) 10 unknown) mg PO BEDTIME 03/25/22 03/25/22 History (unknown) (no (unknown) (unknown) difficulty (units (unk nown) date) swallowing, speech unknown) impairment, weakness, numbness, tingling, (unknown) (no (unknown) (unknown) difficulty with (units (unknown) date) ambulation, recent unknown) falls, head injury, LOC, fever, body aches, (unknown) (no (unknown) (unknown) documented and/or (units (unknown) date) surrogate decision unknown) maker is listed in the patient's medical (unknown) (no (unknown) (unknown) documented. (units (un known) date) unknown) (unknown) (no (unknown) (unknown) dramatically (units (u nknown) date) decreasing her unknown) activity level. Her cardiology office today advised (unknown) (no (unknown) (unknown) due to (units (unkno wn) date) bradycardia, unknown) exertional angina/dyspnea. (unknown) (no (unknown) (unknown) echo, with urgent (units (unknown) date) follow-up in their unknown) clinic. Patient admitted for observation (unknown) (no (unknown) (unknown) epilepsy, NSTEMI (units (unknown) date) 03/07-pending unknown) cardiac follow-up/catheteri zation, and left hip (unknown) (no (unknown) (unknown) exception of those (units (unknown) date) noted above.. unknown) (unknown) (no (unknown) (unknown) fatigue. (units (unkno wn) date) unknown) (unknown) (no (unknown) (unknown) fentanyl 75 mcg/hr (units (unknown) date) transdermal 75 mcg unknown) transdermal 3XD pain 03/23/22 03/23/22 (unknown) (no (unknown) (unknown) fibrosis, HTN, (units ( unknown) date) hypothyroid, unknown) fibromyalgia, ascending aortic aneurysm, depression, (unknown) (no (unknown) (unknown) fibrosis, HTN, (units (unknown) date) hypothyroid, unknown) fibromyalgia, chronic pain medication, meth use or (unknown) (no (unknown) (unknown) fluoxetine 40 mg (units (unknown) date) capsule (Prozac) 40 unknown) mg PO DAILY ##0 11/29/12 03/25/22 History (unknown) (no (unknown) (unknown) for ?too bad (units (u nknown) date) valves and aortic unknown) aneurysm?.? After TX with metoprolol 50 mg (unknown) (no (unknown) (unknown) fracture ORIF with (units (unknown) date) ARF unknown) 03/24/2022??Followe d by Cardiology at [facility] (unknown) (no (unknown) (unknown) history of (units (unk nown) date) epilepsy, NSTEMI unknown) 03/07-pending cardiac follow-up/catheteri zation, (unknown) (no (unknown) (unknown) household members (units (unknown) date) significant other unknown) (unknown) (no (unknown) (unknown) hx , regular ETOH (units (unknown) date) use, ascending unknown) aortic aneurysm, depression, history of (unknown) (no (unknown) (unknown) in the ED where (units (unknown) date) patient is being unknown) followed on-call safety and health manager recommended (unknown) (no (unknown) (unknown) intact, no gross (units (unknown) date) deficits noted of unknown) cranial nerves. (unknown) (no (unknown) (unknown) is in an emergent (units (unknown) date) medical situation unknown) were delaying treatment would jeopardize (unknown) (no (unknown) (unknown) lamotrigine 100 mg (units (unknown) date) tablet 100 mg PO unknown) BEDTIME 03/25/22 03/25/22 History (unknown) (no (unknown) (unknown) lamotrigine 100 mg (units (unknown) date) tablet 50 mg PO unknown) DAILY 03/25/22 03/25/22 History (unknown) (no (unknown) (unknown) levothyroxine 75 (units (unknown) date) mcg tablet 75 mcg unknown) PO DAILY 03/25/22 03/25/22 History (unknown) (no (unknown) (unknown) mcg (2,000 unit) (units (unknown) date) tablet unknown) (unknown) (no (unknown) (unknown) metoprolol 50 mg (units (unknown) date) b.i.d. initiated unknown) and complains of low energy with exertional (unknown) (no (unknown) (unknown) metoprolol (units (unk nown) date) tartrate 50 mg unknown) tablet 50 mg PO BID 03/25/22 03/25/22 History (unknown) (no (unknown) (unknown) mg tablet (units (unkn own) date) (Percocet) 4-6) unknown) (unknown) (no (unknown) (unknown) midline, no (units (un known) date) adenopathy, no unknown) thyroid enlargement, nontender, no masses palpated. (unknown) (no (unknown) (unknown) negative. (units (unkn own) date) Patient's EKG sinus unknown) Yves rate of 44 LVH with repolarization (unknown) (no (unknown) (unknown) of motion intact (units (unknown) date) radial and pedal unknown) pulses are normal. (unknown) (no (unknown) (unknown) orthopnea, lower (units (unknown) date) extremity edema, unknown) headaches but overall general malaise and (unknown) (no (unknown) (unknown) over last 24 hours (units (unknown) date) chills and unknown) significantly increased fatigue which has been (unknown) (no (unknown) (unknown) oxycodone 5 mg (units (unknown) date) tablet 5 mg PO Q4HR unknown) PRN Pain, Moderate 03/28/22 Rx (unknown) (no (unknown) (unknown) oxycodone-acetamin (units (unknown) date) ophen 5 mg-325 1 unknown) tab PO Q6H PRN Pain (Scale Score 03/25/22 (unknown) (no (unknown) (unknown) patch (units (unkno wn) date) unknown) (unknown) (no (unknown) (unknown) record. (units (unkno wn) date) unknown) (unknown) (no (unknown) (unknown) saturation 97% on (units (unknown) date) room air. CBC unknown) unremarkable, chloride 97, BUN 27, creatinine (unknown) (no (unknown) (unknown) she come in for (units (unknown) date) further unknown) evaluation.? She reports no overt fevers, cough, (unknown) (no (unknown) (unknown) sleep. (units (unkno wn) date) unknown) (unknown) (no (unknown) (unknown) sulfamethoxazole (units (unknown) date) Allergy Verified unknown) 05/09/22 21:46 (unknown) (no (unknown) (unknown) that resolves with (units (unknown) date) nitroglycerin unknown) occurring more frequently, slow heart beat and (unknown) (no (unknown) (unknown) the patient's (units ( unknown) date) current unknown) medications. (unknown) (no (unknown) (unknown) the patient's (units ( unknown) date) health. unknown) (unknown) (no (unknown) (unknown) this time. (units (unk nown) date) unknown) (unknown) (no (unknown) (unknown) thoracic aorta (units (unknown) date) redemonstrated, unknown) enlarged heart. [facility] cardiology was consulted (unknown) (no (unknown) (unknown) today; this time (units (unknown) date) is exclusive of unknown) procedural time. (unknown) (no (unknown) (unknown) trimethoprim [From (units (unknown) date) Septra] Allergy unknown) Verified 05/09/22 21:46 (unknown) (no (unknown) (unknown) urinary (units (unkno wn) date) incontinence/retent unknown) ion, dysuria, frequency, urgency, hematuria, bowel (unknown) (no (unknown) (unknown) vitamin B complex (units (unknown) date) 1 tab PO DAILY unknown) 03/25/22 03/25/22 History (unknown) (no (unknown) (unknown) vitamin E 400 unit (units (unknown) date) tablet 1 unit PO unknown) DAILY 03/25/22 03/25/22 History (unknown) (no (unknown) (unknown) wheezes, rhonchi, (units (unknown) date) or rales. unknown) (unknown) (no (unknown) (unknown) with an EF 60 65%. (units (unknown) date) Chest x-ray unknown) demonstrated aneurysmal dilation ascending Result panel 242 (unknown) (no (unknown) (unknown) (no value) (units (unk nown) date) unknown) (unknown) (no (unknown) (unknown) (Lamictal) (units (unk nown) date) unknown) (unknown) (no (unknown) (unknown) (past 8 hours): (units (unknown) date) unknown) (unknown) (no (unknown) (unknown) -03/23/2022 admit: (units (unknown) date) Troponin was 0.050, unknown) down trending to 0.041.? It likely to be (unknown) (no (unknown) (unknown) -EKG sinus Yves (units (unknown) date) rate of 44 LVH with unknown) repolarization abnormalities prolonged QTC (unknown) (no (unknown) (unknown) -[facility] (units (unkno wn) date) cardiology was unknown) consulted in the ED where patient is being followed on (unknown) (no (unknown) (unknown) -Ordered BNP, (units ( unknown) date) TSH/Free T4 unknown) (unknown) (no (unknown) (unknown) -Patient takes (units (unknown) date) fentanyl 75 mcg Q unknown) 72 hours.? Percocet q.4-6 hours (unknown) (no (unknown) (unknown) -Recommend (units (unk nown) date) reaching out to Dr unknown) Beto for fast tracking Cardiac cath as an (unknown) (no (unknown) (unknown) -discussed with (units (unknown) date) patient my concerns unknown) regarding polypharmacy in relation to her (unknown) (no (unknown) (unknown) -echo 10/05 with an (units (unknown) date) EF 60 65%. unknown) (unknown) (no (unknown) (unknown) -initial troponin (units (unknown) date) 0.018 will trend x3 unknown) (unknown) (no (unknown) (unknown) -managed by (units (unknown) date) Beto Delvalle unknown) Cardiology (unknown) (no (unknown) (unknown) -patient (units (unkno wn) date) verbalized that she unknown) had echo completed by Dr. P[facility] at [facility] (unknown) (no (unknown) (unknown) 00:00 05/10/22 (units (unknown) date) unknown) (unknown) (no (unknown) (unknown) 00:30 05/10/22 (units (unknown) date) unknown) (unknown) (no (unknown) (unknown) 00:30 (units (unkno wn) date) unknown) (unknown) (no (unknown) (unknown) 04/27/2021-will (units (unknown) date) not repeat echo. unknown) (unknown) (no (unknown) (unknown) 05/09/22 05/09/22 (units (unknown) date) 05/09/22 unknown) (unknown) (no (unknown) (unknown) 05/09/22 21:59 (units (unknown) date) unknown) (unknown) (no (unknown) (unknown) 05/09/22 (units (unkno wn) date) unknown) (unknown) (no (unknown) (unknown) 05/10/22 (units (unkno wn) date) unknown) (unknown) (no (unknown) (unknown) 01:00 05/10/22 (units (unknown) date) unknown) (unknown) (no (unknown) (unknown) 01:01 05/10/22 (units (unknown) date) unknown) (unknown) (no (unknown) (unknown) 01:01 (units (unkno wn) date) unknown) (unknown) (no (unknown) (unknown) 01:30 05/10/22 (units (unknown) date) unknown) (unknown) (no (unknown) (unknown) 01:31 05/10/22 (units (unknown) date) unknown) (unknown) (no (unknown) (unknown) 01:31 (units (unkno wn) date) unknown) (unknown) (no (unknown) (unknown) [id number] (units (unkno wn) date) unknown) (unknown) (no (unknown) (unknown) 02:00 05/10/22 (units (unknown) date) unknown) (unknown) (no (unknown) (unknown) 02:01 (units (unkno wn) date) unknown) (unknown) (no (unknown) (unknown) 1. Bradycardia, (units (unknown) date) with exertional unknown) angina/dyspnea, acute, present on admission (unknown) (no (unknown) (unknown) 03/25/22 History (units (unknown) date) unknown) (unknown) (no (unknown) (unknown) 2. History of (units ( unknown) date) recent NSTEMI, unknown) requiring cardiac catheterization, acute on (unknown) (no (unknown) (unknown) 2.5 amlodipine, (units (unknown) date) and repeating echo, unknown) with urgent follow-up in their clinic. (unknown) (no (unknown) (unknown) 21:41 05/09/22 (units (unknown) date) unknown) (unknown) (no (unknown) (unknown) 21:59 21:59 21:59 (units (unknown) date) unknown) (unknown) (no (unknown) (unknown) 22:00 05/09/22 (units (unknown) date) unknown) (unknown) (no (unknown) (unknown) 22:01 05/09/22 (units (unknown) date) unknown) (unknown) (no (unknown) (unknown) 22:01 (units (unkno wn) date) unknown) (unknown) (no (unknown) (unknown) 22:05 (units (unkno wn) date) unknown) (unknown) (no (unknown) (unknown) 22:30 05/09/22 (units (unknown) date) unknown) (unknown) (no (unknown) (unknown) 22:31 05/09/22 (units (unknown) date) unknown) (unknown) (no (unknown) (unknown) 22:31 (units (unkno wn) date) unknown) (unknown) (no (unknown) (unknown) 23:00 05/09/22 (units (unknown) date) unknown) (unknown) (no (unknown) (unknown) 23:00 (units (unkno wn) date) unknown) (unknown) (no (unknown) (unknown) 23:30 05/09/22 (units (unknown) date) unknown) (unknown) (no (unknown) (unknown) 23:31 05/09/22 (units (unknown) date) unknown) (unknown) (no (unknown) (unknown) 23:31 (units (unkno wn) date) unknown) (unknown) (no (unknown) (unknown) 3. Ascending (units (u nknown) date) aortic aneurysm, unknown) x2, chronic, present on admission (unknown) (no (unknown) (unknown) [address] or (units (unknown) date) T-wave changes. 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 Depression (units ( unknown) date) unknown) (unknown) (no (unknown) (unknown) 8. Hypothyroidism (units (unknown) date) unknown) (unknown) (no (unknown) (unknown) ALT 17 (units (unkno wn) date) unknown) (unknown) (no (unknown) (unknown) ALT (units (unkno wn) date) unknown) (unknown) (no (unknown) (unknown) APTT 50 H (units (unkn own) date) unknown) (unknown) (no (unknown) (unknown) APTT (units (unkno wn) date) unknown) (unknown) (no (unknown) (unknown) AST 26 (units (unkno wn) date) unknown) (unknown) (no (unknown) (unknown) AST (units (unkno wn) date) unknown) (unknown) (no (unknown) (unknown) Abdomen: Soft (units ( unknown) date) nontender, negative unknown) for organomegaly, or masses. Bowel sounds (unknown) (no (unknown) (unknown) Admit vitals temp (units (unknown) date) 98?, 116/68, unknown) continued bradycardia HR 41, tachypneic RR 42, O2 (unknown) (no (unknown) (unknown) Age/Sex: 72 / F (units (unknown) date) unknown) (unknown) (no (unknown) (unknown) Albumin 4.4 (units (un known) date) unknown) (unknown) (no (unknown) (unknown) Albumin (units (unkno wn) date) unknown) (unknown) (no (unknown) (unknown) Albumin/Globulin (units (unknown) date) Ratio 1.3 unknown) (unknown) (no (unknown) (unknown) Albumin/Globulin (units (unknown) date) Ratio unknown) (unknown) (no (unknown) (unknown) Alkaline (units (unkno wn) date) Phosphatase 109 unknown) (unknown) (no (unknown) (unknown) Alkaline (units (unkno wn) date) Phosphatase unknown) (unknown) (no (unknown) (unknown) All 12 point (units (un known) date) systems reviewed unknown) with the patient and are negative except otherwise (unknown) (no (unknown) (unknown) Allergies (units (unkn own) date) unknown) (unknown) (no (unknown) (unknown) Allergy/AdvReac (units (unknown) date) Type Severity unknown) Reaction Status Date / Time (unknown) (no (unknown) (unknown) Assessment + Plan (units (unknown) date) narrative: unknown) (unknown) (no (unknown) (unknown) Assessment + Plan (units (unknown) date) unknown) (unknown) (no (unknown) (unknown) BUN 27 H (units (unkno wn) date) unknown) (unknown) (no (unknown) (unknown) BUN (units (unkno wn) date) unknown) (unknown) (no (unknown) (unknown) BUN/Creatinine (units (unknown) date) Ratio 31.0 H unknown) (unknown) (no (unknown) (unknown) BUN/Creatinine (units (unknown) date) Ratio unknown) (unknown) (no (unknown) (unknown) Baso # (Auto) 100 (units (unknown) date) unknown) (unknown) (no (unknown) (unknown) Baso # (Auto) (units ( unknown) date) unknown) (unknown) (no (unknown) (unknown) Baso % (Auto) 0.9 (units (unknown) date) unknown) (unknown) (no (unknown) (unknown) Baso % (Auto) (units ( unknown) date) unknown) (unknown) (no (unknown) (unknown) Been Physically (units (unknown) date) Hurt or No unknown) (unknown) (no (unknown) (unknown) Blood Pressure (units (unknown) date) 114/49 L 115/52 L unknown) (unknown) (no (unknown) (unknown) Blood Pressure (units (unknown) date) 116/68 unknown) (unknown) (no (unknown) (unknown) Blood Pressure (units (unknown) date) 122/56 L unknown) (unknown) (no (unknown) (unknown) Blood Pressure (units (unknown) date) 123/51 L 129/56 L unknown) (unknown) (no (unknown) (unknown) Blood Pressure (units (unknown) date) 127/58 L 131/56 L unknown) (unknown) (no (unknown) (unknown) Blood Pressure (units (unknown) date) 133/57 L unknown) (unknown) (no (unknown) (unknown) Blood Pressure (units (unknown) date) 142/59 H unknown) (unknown) (no (unknown) (unknown) Blood Pressure [...] nown) date) unknown) (unknown) (no (unknown) (unknown) COVID PCR: (units (unk nown) date) unknown) (unknown) (no (unknown) (unknown) COVID vaccination: (units (unknown) date) unknown) (unknown) (no (unknown) (unknown) Calcium 9.4 (units (un known) date) unknown) (unknown) (no (unknown) (unknown) Calcium (units (unkno wn) date) unknown) (unknown) (no (unknown) (unknown) Carbon Dioxide 27 (units (unknown) date) unknown) (unknown) (no (unknown) (unknown) Carbon Dioxide (units (unknown) date) unknown) (unknown) (no (unknown) (unknown) Cardio: (units (unkno wn) date) Bradycardic rate unknown) and rhythm (unknown) (no (unknown) (unknown) Chest: no nasal (units (unknown) date) flaring, unknown) retractions, or tachypneic labored breathing. (unknown) (no (unknown) (unknown) Chief complaint: (units (unknown) date) heart is unknown) fluctuating, uncontrolled temperature (unknown) (no (unknown) (unknown) Chloride 97 L (units ( unknown) date) unknown) (unknown) (no (unknown) (unknown) Chloride (units (unkno wn) date) unknown) (unknown) (no (unknown) (unknown) Code status: (units (u nknown) date) unknown) (unknown) (no (unknown) (unknown) Continue (units (unkno wn) date) levothyroxine unknown) (unknown) (no (unknown) (unknown) Continue (units (o wn) date) outpatient dose of unknown) Lamictal.? She also uses diazepam at bedtime for (unknown) (no (unknown) (unknown) Creatinine 0.87 (units (unknown) date) unknown) (unknown) (no (unknown) (unknown) Creatinine (units (unk nown) date) unknown) (unknown) (no (unknown) (unknown) Critical Care (units ( unknown) date) time: unknown) (unknown) (no (unknown) (unknown) : 1950 (units (unknown) date) Acct:[id number] unknown) (unknown) (no (unknown) (unknown) DVT/VTE (units (unkno wn) date) prophylaxis: unknown) (unknown) (no (unknown) (unknown) Date Patient Seen: (units (unknown) date) 05/10/22 unknown) (unknown) (no (unknown) (unknown) Date of Service: (units (unknown) date) 05/10/22 unknown) (unknown) (no (unknown) (unknown) Disposition: (units (u nknown) date) unknown) (unknown) (no (unknown) (unknown) Environment (units (un known) date) unknown) (unknown) (no (unknown) (unknown) Eos # (Auto) 100 (units (unknown) date) unknown) (unknown) (no (unknown) (unknown) Eos # (Auto) (units (u nknown) date) unknown) (unknown) (no (unknown) (unknown) Eos % (Auto) 1.0 L (units (unknown) date) unknown) (unknown) (no [...] wn) date) unknown) (unknown) (no (unknown) (unknown) Exception-the (units (u nknown) date) patient is not unknown) eligible for medication reconciliation; the patient (unknown) (no (unknown) (unknown) Family + Social (units (unknown) date) History unknown) (unknown) (no (unknown) (unknown) Family History (units (unknown) date) (Reviewed 05/10/22 unknown) @ 02:26 by DAINA Parikh) (unknown) (no (unknown) (unknown) Father No problems (units (unknown) date) noted. unknown) (unknown) (no (unknown) (unknown) Feels Safe in (units ( unknown) date) Current Yes unknown) (unknown) (no (unknown) (unknown) Fibromyalgia (units (u nknown) date) unknown) (unknown) (no (unknown) (unknown) General: Patient (units (unknown) date) is a thin frail unknown) appearing elderly female in no distress at (unknown) (no (unknown) (unknown) Globulin 3.3 (units (u nknown) date) unknown) (unknown) (no (unknown) (unknown) Globulin (units (unkno wn) date) unknown) (unknown) (no (unknown) (unknown) Glucose 103 (units (un known) date) unknown) (unknown) (no (unknown) (unknown) Glucose (units (unkno wn) date) unknown) (unknown) (no (unknown) (unknown) HEENT: (units (unkno wn) date) Normocephalic, unknown) atraumatic, extraocular muscles intact, oral pharynx is (unknown) (no (unknown) (unknown) Hct 42.9 (units (unkno wn) date) unknown) (unknown) (no (unknown) (unknown) Hct (units (unkno wn) date) unknown) (unknown) (no (unknown) (unknown) Hgb 14.2 (units (unkno wn) date) unknown) (unknown) (no [...] date) unknown) (unknown) (no (unknown) (unknown) I confirmed that (units (unknown) date) the patient's unknown) advanced care plan is present, Code status is (unknown) (no (unknown) (unknown) I have personally (units (unknown) date) reviewed patient's unknown) chart notes from PCP, specialists, (unknown) (no (unknown) (unknown) I have utilized (units (unknown) date) all available unknown) immediate resources to obtain, update, or review (unknown) (no (unknown) (unknown) I spent a total of (units (unknown) date) [] minutes of unknown) critical care time on this patient's care (unknown) (no (unknown) (unknown) INR 1.2 (units (unkno wn) date) unknown) (unknown) (no (unknown) (unknown) INR (units (unkno wn) date) unknown) (unknown) (no (unknown) (unknown) [facility] (units (unknown) date) [address] unknown) [place] [address] (unknown) (no (unknown) (unknown) Laboratory Results (units (unknown) date) - last 24 hr unknown) (unknown) (no (unknown) (unknown) Labs (units (unkno wn) date) unknown) (unknown) (no (unknown) (unknown) Labs: (units (unkno wn) date) unknown) (unknown) (no (unknown) (unknown) Duncan Rock is a (units (unknown) date) 72-year-old female unknown) with a PMH of idiopathic pulmonary (unknown) (no (unknown) (unknown) Lipase 152 (units (unk nown) date) unknown) (unknown) (no (unknown) (unknown) Lipase (units (unkno wn) date) unknown) (unknown) (no (unknown) (unknown) Lungs: (units (unkno wn) date) Auscultation of all unknown) lung barney are clear without adventitious sounds, (unknown) (no (unknown) (unknown) Lymph # (Auto) (units (unknown) date) 1700 unknown) (unknown) (no (unknown) (unknown) Lymph # (Auto) (units (unknown) date) unknown) (unknown) (no (unknown) (unknown) Lymph % (Auto) (units (unknown) date) 18.2 L unknown) (unknown) (no (unknown) (unknown) Lymph % (Auto) (units (unknown) date) unknown) (unknown) (no (unknown) (unknown) MCH 28.0 (units (unkno wn) date) unknown) (unknown) (no (unknown) (unknown) MCH (units (unkno wn) date) unknown) (unknown) (no (unknown) (unknown) MCHC 33.0 (units (unkn own) date) unknown) (unknown) (no (unknown) (unknown) MCHC (units (unkno wn) date) unknown) (unknown) (no (unknown) (unknown) MCV 84.9 (units (unkno wn) date) unknown) (unknown) (no (unknown) (unknown) MCV (units (unkno wn) date) unknown) (unknown) (no (unknown) (unknown) Magnesium 1.9 (units ( unknown) date) unknown) (unknown) (no (unknown) (unknown) Magnesium (units (unkn own) date) unknown) (unknown) (no (unknown) (unknown) Measuring 6.4 cm.? (units (unknown) date) She will need close unknown) follow-up.? She is on metoprolol for (unknown) (no (unknown) (unknown) Medical History (units (unknown) date) (Reviewed 05/10/22 unknown) @ 02:25 by May Sloan [facility]) (unknown) (no (unknown) (unknown) Medication (units (unk nown) date) Instructions unknown) Recorded Confirmed Type (unknown) (no (unknown) (unknown) Meds (units (unkno wn) date) unknown) (unknown) (no (unknown) (unknown) Mobile # (Auto) 700 (units (unknown) date) unknown) (unknown) (no (unknown) (unknown) Mobile # (Auto) (units ( unknown) date) unknown) (unknown) (no (unknown) (unknown) Mobile % (Auto) 7.7 (units (unknown) date) unknown) (unknown) (no (unknown) (unknown) Mobile % (Auto) (units ( unknown) date) unknown) (unknown) (no (unknown) (unknown) Mother TIA (units (unk nown) date) (transient ischemic unknown) attack) (unknown) (no (unknown) (unknown) Musculoskeletal: (units (unknown) date) Muscle strength and unknown) tone are equal within normal limits, no (unknown) (no (unknown) (unknown) Myocardial (units (unk nown) date) infarction unknown) (unknown) (no (unknown) (unknown) Narrative (units (unkn own) date) unknown) (unknown) (no (unknown) (unknown) Narrative: (units (unk nown) date) unknown) (unknown) (no (unknown) (unknown) Negative for JVD (units (unknown) date) unknown) (unknown) (no (unknown) (unknown) Neuro: Alert and (units (unknown) date) orientated x3, unknown) moves all extremities, sensation to touch (unknown) (no (unknown) (unknown) Neut # (Auto) 6800 (units (unknown) date) unknown) (unknown) (no (unknown) (unknown) Neut # (Auto) (units ( unknown) date) unknown) (unknown) (no (unknown) (unknown) Neut % (Auto) 72.2 (units (unknown) date) unknown) (unknown) (no (unknown) (unknown) Neut % (Auto) (units ( unknown) date) unknown) (unknown) (no (unknown) (unknown) Objective (units (unkn own) date) unknown) (unknown) (no (unknown) (unknown) On admit patient (units (unknown) date) denies chest pain + unknown) SOB at rest, headache, changes in vision, (unknown) (no (unknown) (unknown) Oxygen Delivery (units (unknown) date) Method Room Air unknown) (unknown) (no (unknown) (unknown) Oxygen Delivery (units (unknown) date) Method unknown) (unknown) (no (unknown) (unknown) PT 13.5 H (units (unkn own) date) unknown) (unknown) (no (unknown) (unknown) PT (units (unkno wn) date) unknown) (unknown) (no (unknown) (unknown) Patient History (units (unknown) date) unknown) (unknown) (no (unknown) (unknown) Patient: (units (unkno wn) date) Duncan Rock K unknown) MR#: [id number] (unknown) (no (unknown) (unknown) Plt Count 328 (units ( unknown) date) unknown) (unknown) (no (unknown) (unknown) Plt Count (units (unkn own) date) unknown) (unknown) (no (unknown) (unknown) Potassium 4.4 (units ( unknown) date) unknown) (unknown) (no (unknown) (unknown) Potassium (units (unkn own) date) unknown) (unknown) (no (unknown) (unknown) [place] (units (unknown) date) for ?too bad valves unknown) and aortic aneurysm?.? After TX (unknown) (no (unknown) (unknown) Provider: (units (unkn own) date) May Sloan unknown) [employer] APPRENTICE-BC (unknown) (no (unknown) (unknown) Proxy: Heraclio (units (unknown) date) Emery, perfecto unknown) partner (unknown) (no (unknown) (unknown) Psych: Patient has (units (unknown) date) a well-kept unknown) appearance, appropriate affect, mental status (unknown) (no (unknown) (unknown) Pulse Oximetry 100 (units (unknown) date) unknown) (unknown) (no (unknown) (unknown) Pulse Oximetry 96 (units (unknown) date) 96 unknown) (unknown) (no (unknown) (unknown) Pulse Oximetry 96 (units (unknown) date) 98 unknown) (unknown) (no (unknown) (unknown) Pulse Oximetry 97 (units (unknown) date) 97 unknown) (unknown) (no (unknown) (unknown) Pulse Oximetry 97 (units (unknown) date) unknown) (unknown) (no (unknown) (unknown) Pulse Oximetry 98 (units (unknown) date) unknown) (unknown) (no (unknown) (unknown) Pulse Oximetry 99 (units (unknown) date) 98 97 unknown) (unknown) (no (unknown) (unknown) Pulse Rate 41 L 41 (units (unknown) date) L unknown) (unknown) (no (unknown) (unknown) Pulse Rate 41 L (units (unknown) date) unknown) (unknown) (no (unknown) (unknown) Pulse Rate 42 L 41 (units (unknown) date) L unknown) (unknown) (no (unknown) (unknown) Pulse Rate 42 L 43 (units (unknown) date) L 43 L unknown) (unknown) (no (unknown) (unknown) Pulse Rate 43 L 45 (units (unknown) date) L unknown) (unknown) (no (unknown) (unknown) Pulse Rate 44 L 43 (units (unknown) date) L unknown) (unknown) (no (unknown) (unknown) Pulse Rate 45 L 43 (units (unknown) date) L unknown) (unknown) (no (unknown) (unknown) RBC 5.06 (units (unkno wn) date) unknown) (unknown) (no (unknown) (unknown) RBC (units (unkno wn) date) unknown) (unknown) (no (unknown) (unknown) RDW 15.0 H (units (unk nown) date) unknown) (unknown) (no (unknown) (unknown) RDW (units (unkno wn) date) unknown) (unknown) (no (unknown) (unknown) Respiratory Rate (units (unknown) date) 18 44 H unknown) (unknown) (no (unknown) (unknown) Respiratory Rate (units (unknown) date) 20 19 unknown) (unknown) (no (unknown) (unknown) Respiratory Rate (units (unknown) date) 21 42 H unknown) (unknown) (no (unknown) (unknown) Respiratory Rate (units (unknown) date) 22 unknown) (unknown) (no (unknown) (unknown) Respiratory Rate (units (unknown) date) 23 24 unknown) (unknown) (no (unknown) (unknown) Respiratory Rate (units (unknown) date) 42 H 42 H unknown) (unknown) (no (unknown) (unknown) Respiratory Rate (units (unknown) date) 42 H unknown) (unknown) (no (unknown) (unknown) Respiratory Rate (units (unknown) date) 43 H 12 14 unknown) (unknown) (no (unknown) (unknown) Respiratory Rate (units (unknown) date) 43 H unknown) (unknown) (no (unknown) (unknown) Restrictive lung (units (unknown) date) disease unknown) (unknown) (no (unknown) (unknown) Review of Systems (units (unknown) date) unknown) (unknown) (no (unknown) (unknown) SARS-CoV-2 (PCR) (units (unknown) date) Negative unknown) (unknown) (no (unknown) (unknown) SARS-CoV-2 (PCR) (units (unknown) date) unknown) (unknown) (no (unknown) (unknown) Safety + (units (unkno wn) date) Behavioral: unknown) (unknown) (no (unknown) (unknown) She is not on any (units (unknown) date) outpatient unknown) medications or inhalers. (unknown) (no (unknown) (unknown) Signed By: (units (unk nown) date) unknown) (unknown) (no (unknown) (unknown) Skin: Warm dry and (units (unknown) date) intact without unknown) rashes, ulcerations or petechiae. 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 unknown) (unknown) (no (unknown) (unknown) Surgical History (units (unknown) date) (Reviewed 05/10/22 unknown) @ 02:25 by May Sloan [employer] APPRENTICEXavier) (unknown) (no (unknown) (unknown) Surrogate decision (units (unknown) date) maker: unknown) (unknown) (no (unknown) (unknown) Temperature 98 F (units (unknown) date) unknown) (unknown) (no (unknown) (unknown) Temperature (units (un known) date) unknown) (unknown) (no (unknown) (unknown) Threatened By a (units (unknown) date) Person unknown) (unknown) (no (unknown) (unknown) Time Patient Seen: (units (unknown) date) 02:13 unknown) (unknown) (no (unknown) (unknown) Time Spent With (units (unknown) date) Patient unknown) (unknown) (no (unknown) (unknown) Tobacco + (units (unkn own) date) Substance use: unknown) (unknown) (no (unknown) (unknown) Tobacco type (units (u nknown) date) cigarettes unknown) (unknown) (no (unknown) (unknown) Total Bilirubin (units (unknown) date) 0.8 unknown) (unknown) (no (unknown) (unknown) Total Bilirubin (units (unknown) date) unknown) (unknown) (no (unknown) (unknown) Total Creatine (units (unknown) date) Kinase 44 unknown) (unknown) (no (unknown) (unknown) Total Creatine (units (unknown) date) Kinase unknown) (unknown) (no (unknown) (unknown) Total Protein 7.7 (units (unknown) date) unknown) (unknown) (no (unknown) (unknown) Total Protein (units ( unknown) date) unknown) (unknown) (no (unknown) (unknown) Troponin I 0.018 (units (unknown) date) unknown) (unknown) (no (unknown) (unknown) Troponin I (units (unk nown) date) unknown) (unknown) (no (unknown) (unknown) Vital Signs (units (un known) date) unknown) (unknown) (no (unknown) (unknown) WBC 9.4 (units (unkno wn) date) unknown) (unknown) (no (unknown) (unknown) WBC (units (unkno wn) date) unknown) (unknown) (no (unknown) (unknown) [Embedded Image (units (unknown) date) Not Available] unknown) (unknown) (no (unknown) (unknown) [From ] (units ( unknown) date) unknown) (unknown) (no (unknown) (unknown) abnormalities (units ( unknown) date) prolonged QTC 494 unknown) without ST or T-wave changes. Last echo 10/05 (unknown) (no (unknown) (unknown) adhesive tape (units ( unknown) date) AdvReac Verified unknown) 05/09/22 21:46 (unknown) (no (unknown) (unknown) alcohol intake (units (unknown) date) current unknown) (unknown) (no (unknown) (unknown) alcohol intake (units (unknown) date) frequency 0-2 unknown) drinks per day (unknown) (no (unknown) (unknown) and left hip (units (u nknown) date) fracture ORIF with unknown) ARF 03/24/2022??Followe d by Cardiology at (unknown) (no (unknown) (unknown) angina/shortness (units (unknown) date) of breath,and unknown) bradycardia. Patient has sustained bradycardia (unknown) (no (unknown) (unknown) approximately 1 (units (unknown) date) week ago which was unknown) found Dr. Mckeon to have been completed on (unknown) (no (unknown) (unknown) are present in all (units (unknown) date) 4 quadrants without unknown) guarding or rebound, no CVA tenderness. (unknown) (no (unknown) (unknown) aspirin 81 mg (units ( unknown) date) tablet,delayed 81 unknown) mg PO DAILY 05/10/22 05/10/22 History (unknown) (no (unknown) (unknown) attitude thought (units (unknown) date) context and unknown) judgment are appropriate for age. (unknown) (no (unknown) (unknown) b.i.d. and (units (unk nown) date) complains of low unknown) energy with exertional angina/shortness of breath (unknown) (no (unknown) (unknown) blood pressure (units (unknown) date) control. unknown) (unknown) (no (unknown) (unknown) bradycardia and (units (unknown) date) that she may need unknown) to be tapered back on her pain medications-a (unknown) (no (unknown) (unknown) bradycardia, (units (u nknown) date) exertional unknown) angina/dyspnea. Once (unknown) (no (unknown) (unknown) call safety and health manager (units (unknown) date) recommended unknown) decreasing the metoprolol dose by half and adding (unknown) (no (unknown) (unknown) cardiac demand (units (unknown) date) ischemia. unknown) (unknown) (no (unknown) (unknown) changes, (units (unkno wn) date) constipation, unknown) incontinence, melena, rashes, recent illness with the (unknown) (no (unknown) (unknown) chills, cough, (units (unknown) date) recent exposure to unknown) illness, abdominal pain, nausea, vomiting, (unknown) (no (unknown) (unknown) cholecalciferol (units (unknown) date) (vitamin D3) 50 50 unknown) mcg PO DAILY 03/25/22 03/25/22 History (unknown) (no (unknown) (unknown) chronic, present (units (unknown) date) on admission unknown) (unknown) (no (unknown) (unknown) clear and mucous (units (unknown) date) membranes are unknown) moist. Neck is supple and symmetric, trachea is (unknown) (no (unknown) (unknown) clearance 42, PT (units (unknown) date) 13.5 although INR unknown) stable 1.2 PTT 50, troponin 0.018, COVID is (unknown) (no (unknown) (unknown) decreasing the (units (unknown) date) metoprolol dose by unknown) half and adding 2.5 amlodipine, and repeating (unknown) (no (unknown) (unknown) deformity, (units (unk nown) date) crepitus, unknown) effusions, cyanosis, clubbing or edema present. Full range (unknown) (no (unknown) (unknown) diagnostic (units (unk nown) date) imaging, and unknown) laboratory results. (unknown) (no (unknown) (unknown) diazepam 10 mg (units (unknown) date) tablet (Valium) 10 unknown) mg PO BEDTIME 03/25/22 03/25/22 History (unknown) (no (unknown) (unknown) difficulty (units (unk nown) date) swallowing, speech unknown) impairment, weakness, numbness, tingling, (unknown) (no (unknown) (unknown) difficulty with (units (unknown) date) ambulation, recent unknown) falls, head injury, LOC, fever, body aches, (unknown) (no (unknown) (unknown) discussion for (units (unknown) date) follow-up with unknown) Cardiology and PCP (unknown) (no (unknown) (unknown) documented and/or (units (unknown) date) surrogate decision unknown) maker is listed in the patient's medical (unknown) (no (unknown) (unknown) documented. (units (un known) date) unknown) (unknown) (no (unknown) (unknown) dramatically (units (u nknown) date) decreasing her unknown) activity level. Her cardiology office today advised (unknown) (no (unknown) (unknown) due to (units (unkno wn) date) bradycardia, unknown) exertional angina/dyspnea. (unknown) (no (unknown) (unknown) echo, with urgent (units (unknown) date) follow-up in their unknown) clinic. Patient admitted for observation (unknown) (no (unknown) (unknown) epilepsy, NSTEMI (units (unknown) date) 03/07-pending unknown) cardiac follow-up/catheteri zation, and left hip (unknown) (no (unknown) (unknown) exception of those (units (unknown) date) noted above.. unknown) (unknown) (no (unknown) (unknown) fatigue. (units (unkno wn) date) unknown) (unknown) (no (unknown) (unknown) fentanyl 75 mcg/hr (units (unknown) date) transdermal 75 mcg unknown) transdermal 3XD pain 03/23/22 03/23/22 (unknown) (no (unknown) (unknown) fibrosis, HTN, (units ( unknown) date) hypothyroid, unknown) fibromyalgia, ascending aortic aneurysm, depression, (unknown) (no (unknown) (unknown) fibrosis, HTN, (units (unknown) date) hypothyroid, unknown) fibromyalgia, chronic pain medication, meth use or (unknown) (no (unknown) (unknown) fluoxetine 40 mg (units (unknown) date) capsule (Prozac) 40 unknown) mg PO DAILY ##0 11/29/12 03/25/22 History (unknown) (no (unknown) (unknown) for ?too bad (units (u nknown) date) valves and aortic unknown) aneurysm?.? After TX with metoprolol 50 mg (unknown) (no (unknown) (unknown) fracture ORIF with (units (unknown) date) ARF unknown) 03/24/2022??Followe d by Cardiology at [facility] (unknown) (no (unknown) (unknown) furosemide 20 mg (units (unknown) date) tablet 20 mg PO unknown) DAILY 05/10/22 05/10/22 History (unknown) (no (unknown) (unknown) history of (units (unk nown) date) epilepsy, NSTEMI unknown) 03/07-pending cardiac follow-up/catheteri zation, (unknown) (no (unknown) (unknown) household members (units (unknown) date) significant other unknown) (unknown) (no (unknown) (unknown) hx , regular ETOH (units (unknown) date) use, ascending unknown) aortic aneurysm, depression, history of (unknown) (no (unknown) (unknown) in ED and on floor (units (unknown) date) in the 40s. Patient unknown) admitted for observation due to (unknown) (no (unknown) (unknown) in the ED where (units (unknown) date) patient is being unknown) followed on-call safety and health manager recommended (unknown) (no (unknown) (unknown) intact, no gross (units (unknown) date) deficits noted of unknown) cranial nerves. (unknown) (no (unknown) (unknown) is in an emergent (units (unknown) date) medical situation unknown) were delaying treatment would jeopardize (unknown) (no (unknown) (unknown) lamotrigine 100 mg (units (unknown) date) tablet 50 mg PO unknown) DAILY 03/25/22 03/25/22 History (unknown) (no (unknown) (unknown) levothyroxine 100 (units (unknown) date) mcg capsule 100 mcg unknown) PO DAILY 05/10/22 05/10/22 History (unknown) (no (unknown) (unknown) mcg (2,000 unit) (units (unknown) date) tablet unknown) (unknown) (no (unknown) (unknown) metoprolol 50 mg (units (unknown) date) b.i.d. initiated unknown) and complains of low energy with exertional (unknown) (no (unknown) (unknown) metoprolol (units (unk nown) date) tartrate 50 mg unknown) tablet 50 mg PO BID 03/25/22 03/25/22 History (unknown) (no (unknown) (unknown) mg tablet (units (unkn own) date) (Percocet) 4-6) unknown) (unknown) (no (unknown) (unknown) midline, no (units (un known) date) adenopathy, no unknown) thyroid enlargement, nontender, no masses palpated. (unknown) (no (unknown) (unknown) negative. (units (unkn own) date) Patient's EKG sinus unknown) Yves rate of 44 LVH with repolarization (unknown) (no (unknown) (unknown) of motion intact (units (unknown) date) radial and pedal unknown) pulses are normal. (unknown) (no (unknown) (unknown) orthopnea, lower (units (unknown) date) extremity edema, unknown) headaches but overall general malaise and (unknown) (no (unknown) (unknown) outpatient. (units (un known) date) -EMERGENT unknown) follow-up. (unknown) (no (unknown) (unknown) over last 24 hours (units (unknown) date) chills and unknown) significantly increased fatigue which has been (unknown) (no (unknown) (unknown) oxycodone-acetamin (units (unknown) date) ophen 5 mg-325 1 unknown) tab PO Q6H PRN Pain (Scale Score 03/25/22 (unknown) (no (unknown) (unknown) patch (units (unkno wn) date) unknown) (unknown) (no (unknown) (unknown) potassium chloride (units (unknown) date) 20 mEq 20 meq PO unknown) DAILY 05/10/22 05/10/22 History (unknown) (no (unknown) (unknown) record. (units (unkno wn) date) unknown) (unknown) (no (unknown) (unknown) release (units (unkno wn) date) unknown) (unknown) (no (unknown) (unknown) saturation 97% on (units (unknown) date) room air. CBC unknown) unremarkable, chloride 97, BUN 27, creatinine (unknown) (no (unknown) (unknown) she come in for (units (unknown) date) further unknown) evaluation.? She reports no overt fevers, cough, (unknown) (no (unknown) (unknown) sleep. (units (unkno wn) date) unknown) (unknown) (no (unknown) (unknown) sulfamethoxazole (units (unknown) date) Allergy Verified unknown) 05/09/22 21:46 (unknown) (no (unknown) (unknown) tablet,extended (units (unknown) date) release unknown) (unknown) (no (unknown) (unknown) that resolves with (units (unknown) date) nitroglycerin unknown) occurring more frequently, slow heart beat and (unknown) (no (unknown) (unknown) the patient's (units ( unknown) date) current unknown) medications. (unknown) (no (unknown) (unknown) the patient's (units ( unknown) date) health. unknown) (unknown) (no (unknown) (unknown) this time. (units (unk nown) date) unknown) (unknown) (no (unknown) (unknown) thoracic aorta (units (unknown) date) redemonstrated, unknown) enlarged heart. [facility] was consulted (unknown) (no (unknown) (unknown) today; this time (units (unknown) date) is exclusive of unknown) procedural time. (unknown) (no (unknown) (unknown) trimethoprim [From (units (unknown) date) Septra] Allergy unknown) Verified 05/09/22 21:46 (unknown) (no (unknown) (unknown) urinary (units (unkno wn) date) incontinence/retent unknown) ion, dysuria, frequency, urgency, hematuria, bowel (unknown) (no (unknown) (unknown) vitamin B complex (units (unknown) date) 1 tab PO DAILY unknown) 03/25/22 03/25/22 History (unknown) (no (unknown) (unknown) wheezes, rhonchi, (units (unknown) date) or rales. unknown) (unknown) (no (unknown) (unknown) with an EF 60 65%. (units (unknown) date) Chest x-ray unknown) demonstrated aneurysmal dilation ascending Result panel 243 (unknown) (no (unknown) (unknown) (no value) (units (unk nown) date) unknown) (unknown) (no (unknown) (unknown) (Lamictal) (units (unk nown) date) unknown) (unknown) (no (unknown) (unknown) (past 8 hours): (units (unknown) date) unknown) (unknown) (no (unknown) (unknown) - TSH 5.89 (units (unk nown) date) unknown) (unknown) (no (unknown) (unknown) -03/23/2022 admit: (units (unknown) date) Troponin was 0.050, unknown) down trending to 0.041.? It likely to be (unknown) (no (unknown) (unknown) -EKG sinus Yves (units (unknown) date) rate of 44 LVH with unknown) repolarization abnormalities prolonged QTC (unknown) (no (unknown) (unknown) -[facility] (units (unkno wn) date) cardiology was unknown) consulted in the ED where patient is being followed on (unknown) (no (unknown) (unknown) -Ordered BNP, (units ( unknown) date) TSH/Free T4 unknown) (unknown) (no (unknown) (unknown) -Ordered TSH/T$ (units (unknown) date) unknown) (unknown) (no (unknown) (unknown) -PT 13.5 although (units (unknown) date) INR stable 1.2 PTT unknown) 50 (unknown) (no (unknown) (unknown) -Patient takes (units (unknown) date) fentanyl 75 mcg Q unknown) 72 hours.? Percocet q.4-6 hours (unknown) (no (unknown) (unknown) -Recommend (units (unk nown) date) reaching out to unknown) [facility] for fast tracking Cardiac cath as an (unknown) (no (unknown) (unknown) -change home dose (units (unknown) date) of 100 unknown) levothyroxine to 125mcg QD repeat tsh outpatient (unknown) (no (unknown) (unknown) -discussed with (units (unknown) date) patient my concerns unknown) regarding polypharmacy in relation to her (unknown) (no (unknown) (unknown) -echo 10/05 with an (units (unknown) date) EF 60 65%. unknown) (unknown) (no (unknown) (unknown) -initial troponin (units (unknown) date) 0.018 will trend x3 unknown) (unknown) (no (unknown) (unknown) -initially reduce (units (unknown) date) metoprolol to 25 unknown) b.i.d., but asked patient's heart rate (unknown) (no (unknown) (unknown) -initiated (units (unk nown) date) amlodipine 2.5 unknown) q.day (unknown) (no (unknown) (unknown) -managed by (units (unknown) date) [facility]valle unknown) Cardiology (unknown) (no (unknown) (unknown) -patient (units (unkno wn) date) verbalized that she unknown) had echo completed by Dr. P[facility]rez at [facility] (unknown) (no (unknown) (unknown) 00:00 05/10/22 (units (unknown) date) unknown) (unknown) (no (unknown) (unknown) 00:30 05/10/22 (units (unknown) date) unknown) (unknown) (no (unknown) (unknown) 00:30 (units (unkno wn) date) unknown) (unknown) (no (unknown) (unknown) 04/27/2021-will (units (unknown) date) not repeat echo. unknown) (unknown) (no (unknown) (unknown) 05/09/22 05/09/22 (units (unknown) date) 05/09/22 unknown) (unknown) (no (unknown) (unknown) 05/09/22 21:59 (units (unknown) date) unknown) (unknown) (no (unknown) (unknown) 05/09/22 (units (unkno wn) date) unknown) (unknown) (no (unknown) (unknown) 05/10/22 1021 (units ( unknown) date) unknown) (unknown) (no (unknown) (unknown) 05/10/22 (units (unkno wn) date) unknown) (unknown) (no (unknown) (unknown) 01:00 05/10/22 (units (unknown) date) unknown) (unknown) (no (unknown) (unknown) 01:01 05/10/22 (units (unknown) date) unknown) (unknown) (no (unknown) (unknown) 01:01 (units (unkno wn) date) unknown) (unknown) (no (unknown) (unknown) 01:30 05/10/22 (units (unknown) date) unknown) (unknown) (no (unknown) (unknown) 01:31 05/10/22 (units (unknown) date) unknown) (unknown) (no (unknown) (unknown) 01: (units (unkno wn) date) unknown) (unknown) (no (unknown) (unknown) [id number] (units (unkno wn) date) unknown) (unknown) (no (unknown) (unknown) 02:00 05/10/22 (units (unknown) date) unknown) (unknown) (no (unknown) (unknown) 02:01 (units (unkno wn) date) unknown) (unknown) (no (unknown) (unknown) 1. Bradycardia, (units (unknown) date) with exertional unknown) angina/dyspnea, acute, present on admission (unknown) (no (unknown) (unknown) 03/25/22 History (units (unknown) date) unknown) (unknown) (no (unknown) (unknown) 2 midnights once (units (unknown) date) bradycardia has unknown) been resolved, patient to emergent outpatient (unknown) (no (unknown) (unknown) 2. History of (units ( unknown) date) recent NSTEMI, unknown) requiring cardiac catheterization, acute on (unknown) (no (unknown) (unknown) 2.5 amlodipine, (units (unknown) date) and repeating echo, unknown) with urgent follow-up in their clinic. (unknown) (no (unknown) (unknown) 21:41 05/09/22 (units (unknown) date) unknown) (unknown) (no (unknown) (unknown) 21:59 21:59 21:59 (units (unknown) date) unknown) (unknown) (no (unknown) (unknown) 22:00 05/09/22 (units (unknown) date) unknown) (unknown) (no (unknown) (unknown) 22:01 05/09/22 (units (unknown) date) unknown) (unknown) (no (unknown) (unknown) 22:01 (units (unkno wn) date) unknown) (unknown) (no (unknown) (unknown) 22:05 (units (unkno wn) date) unknown) (unknown) (no (unknown) (unknown) 22:30 05/09/22 (units (unknown) date) unknown) (unknown) (no (unknown) (unknown) 22:31 05/09/22 (units (unknown) date) unknown) (unknown) (no (unknown) (unknown) 22:31 (units (unkno wn) date) unknown) (unknown) (no (unknown) (unknown) 23:00 05/09/22 (units (unknown) date) unknown) (unknown) (no (unknown) (unknown) 23:00 (units (unkno wn) date) unknown) (unknown) (no (unknown) (unknown) 23:05/09/22 (units (unknown) date) unknown) (unknown) (no (unknown) (unknown) 23:31 05/09/22 (units (unknown) date) unknown) (unknown) (no (unknown) (unknown) 23:31 (units (unkno wn) date) unknown) (unknown) (no (unknown) (unknown) 3. Ascending (units (u nknown) date) aortic aneurysm, unknown) x2, chronic, present on admission (unknown) (no (unknown) (unknown) 4. 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 unknown) (unknown) (no (unknown) (unknown) 5. 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 Depression, (units (unknown) date) chronic, present on unknown) admission (unknown) (no (unknown) (unknown) 8. Hypothyroidism, (units (unknown) date) acquired, chronic, unknown) present on admission (unknown) (no (unknown) (unknown) ALT 17 (units (unkno wn) date) unknown) (unknown) (no (unknown) (unknown) ALT (units (unkno wn) date) unknown) (unknown) (no (unknown) (unknown) APTT 50 H (units (unkn own) date) unknown) (unknown) (no (unknown) (unknown) APTT (units (unkno wn) date) unknown) (unknown) (no (unknown) (unknown) AST 26 (units (unkno wn) date) unknown) (unknown) (no (unknown) (unknown) AST (units (unkno wn) date) unknown) (unknown) (no (unknown) (unknown) Abdomen: Soft (units ( unknown) date) nontender, negative unknown) for organomegaly, or masses. Bowel sounds (unknown) (no (unknown) (unknown) Admit vitals temp (units (unknown) date) 98?, 116/68, unknown) continued bradycardia HR 41, tachypneic RR 42, O2 (unknown) (no (unknown) (unknown) Age/Sex: 72 / F (units (unknown) date) unknown) (unknown) (no (unknown) (unknown) Albumin 4.4 (units (un known) date) unknown) (unknown) (no (unknown) (unknown) Albumin (units (unkno wn) date) unknown) (unknown) (no (unknown) (unknown) Albumin/Globulin (units (unknown) date) Ratio 1.3 unknown) (unknown) (no (unknown) (unknown) Albumin/Globulin (units (unknown) date) Ratio unknown) (unknown) (no (unknown) (unknown) Alkaline (units (unkno wn) date) Phosphatase 109 unknown) (unknown) (no (unknown) (unknown) Alkaline (units (unkno wn) date) Phosphatase unknown) (unknown) (no (unknown) (unknown) All 12 point (units (un known) date) systems reviewed unknown) with the patient and are negative except otherwise (unknown) (no (unknown) (unknown) Allergies (units (unkn own) date) unknown) (unknown) (no (unknown) (unknown) Allergy/AdvReac (units (unknown) date) Type Severity unknown) Reaction Status Date / Time (unknown) (no (unknown) (unknown) Assessment + Plan (units (unknown) date) narrative: unknown) (unknown) (no (unknown) (unknown) Assessment + Plan (units (unknown) date) unknown) (unknown) (no (unknown) (unknown) BUN 27 H (units (unkno wn) date) unknown) (unknown) (no (unknown) (unknown) BUN (units (unkno wn) date) unknown) (unknown) (no (unknown) (unknown) BUN/Creatinine (units (unknown) date) Ratio 31.0 H unknown) (unknown) (no (unknown) (unknown) BUN/Creatinine (units (unknown) date) Ratio unknown) (unknown) (no (unknown) (unknown) Baso # (Auto) 100 (units (unknown) date) unknown) (unknown) (no (unknown) (unknown) Baso # (Auto) (units ( unknown) date) unknown) (unknown) (no (unknown) (unknown) Baso % (Auto) 0.9 (units (unknown) date) unknown) (unknown) (no (unknown) (unknown) Baso % (Auto) (units ( unknown) date) unknown) (unknown) (no (unknown) (unknown) Been Physically (units (unknown) date) Hurt or No unknown) (unknown) (no (unknown) (unknown) Blood Pressure (units (unknown) date) 114/49 L 115/52 L unknown) (unknown) (no (unknown) (unknown) Blood Pressure (units (unknown) date) 116/68 unknown) (unknown) (no (unknown) (unknown) Blood Pressure (units (unknown) date) 122/56 L unknown) (unknown) (no (unknown) (unknown) Blood Pressure (units (unknown) date) 123/51 L 129/56 L unknown) (unknown) (no (unknown) (unknown) Blood Pressure (units (unknown) date) 127/58 L 131/56 L unknown) (unknown) (no (unknown) (unknown) Blood Pressure (units (unknown) date) 133/57 L unknown) (unknown) (no (unknown) (unknown) Blood Pressure (units (unknown) date) 142/59 H unknown) (unknown) (no (unknown) (unknown) Blood Pressure [...] nown) date) unknown) (unknown) (no (unknown) (unknown) COVID PCR:Negative (units (unknown) date) unknown) (unknown) (no (unknown) (unknown) Calcium 9.4 (units (un known) date) unknown) (unknown) (no (unknown) (unknown) Calcium (units (unkno wn) date) unknown) (unknown) (no (unknown) (unknown) Carbon Dioxide 27 (units (unknown) date) unknown) (unknown) (no (unknown) (unknown) Carbon Dioxide (units (unknown) date) unknown) (unknown) (no (unknown) (unknown) Cardio: (units (unkno wn) date) Bradycardic rate unknown) and rhythm (unknown) (no (unknown) (unknown) Chest: no nasal (units (unknown) date) flaring, unknown) retractions, or tachypneic labored breathing. (unknown) (no (unknown) (unknown) Chief complaint: (units (unknown) date) heart is unknown) fluctuating, uncontrolled temperature (unknown) (no (unknown) (unknown) Chloride 97 L (units ( unknown) date) unknown) (unknown) (no (unknown) (unknown) Chloride (units (unkno wn) date) unknown) (unknown) (no (unknown) (unknown) Continue (units (unkno wn) date) outpatient dose of unknown) Lamictal.? She also uses diazepam at bedtime for (unknown) (no (unknown) (unknown) Creatinine 0.87 (units (unknown) date) unknown) (unknown) (no (unknown) (unknown) Creatinine (units (unk nown) date) unknown) (unknown) (no (unknown) (unknown) Critical Care (units ( unknown) date) time: unknown) (unknown) (no (unknown) (unknown) : 1950 (units (unknown) date) Acct:[id number] unknown) (unknown) (no (unknown) (unknown) DVT/VTE (units (unkno wn) date) prophylaxis: unknown) Lovenox and SCD (unknown) (no (unknown) (unknown) Date Patient Seen: (units (unknown) date) 05/10/22 unknown) (unknown) (no (unknown) (unknown) Date of Service: (units (unknown) date) 05/10/22 unknown) (unknown) (no (unknown) (unknown) Disposition: (units (u nknown) date) Patient admitted unknown) for observation expected length of stay less than (unknown) (no (unknown) (unknown) Environment (units (un known) date) unknown) (unknown) (no (unknown) (unknown) Eos # (Auto) 100 (units (unknown) date) unknown) (unknown) (no (unknown) (unknown) Eos # (Auto) (units (u nknown) date) unknown) (unknown) (no (unknown) (unknown) Eos % (Auto) 1.0 L (units (unknown) date) unknown) (unknown) (no [...] History unknown) (unknown) (no (unknown) (unknown) Family History (units (unknown) date) (Reviewed 05/10/22 unknown) @ 02:26 by MARGE Parikh) (unknown) (no (unknown) (unknown) Father No problems (units (unknown) date) noted. unknown) (unknown) (no (unknown) (unknown) Feels Safe in (units ( unknown) date) Current Yes unknown) (unknown) (no (unknown) (unknown) Fibromyalgia (units (u nknown) date) unknown) (unknown) (no (unknown) (unknown) General: Patient (units (unknown) date) is a thin frail unknown) appearing elderly female in no distress at (unknown) (no (unknown) (unknown) Globulin 3.3 (units (u nknown) date) unknown) (unknown) (no (unknown) (unknown) Globulin (units (unkno wn) date) unknown) (unknown) (no (unknown) (unknown) Glucose 103 (units (un known) date) unknown) (unknown) (no (unknown) (unknown) Glucose (units (unkno wn) date) unknown) (unknown) (no (unknown) (unknown) HEENT: (units (unkno wn) date) Normocephalic, unknown) atraumatic, extraocular muscles intact, oral pharynx is (unknown) (no (unknown) (unknown) Hct 42.9 (units (unkno wn) date) unknown) (unknown) (no (unknown) (unknown) Hct (units (unkno wn) date) unknown) (unknown) (no (unknown) (unknown) Hgb 14.2 (units (unkno wn) date) unknown) (unknown) (no [...] date) unknown) (unknown) (no (unknown) (unknown) I confirmed that (units (unknown) date) the patient's unknown) advanced care plan is present, Code status is (unknown) (no (unknown) (unknown) I have personally (units (unknown) date) reviewed patient's unknown) chart notes from PCP, specialists, (unknown) (no (unknown) (unknown) I have utilized (units (unknown) date) all available unknown) immediate resources to obtain, update, or review (unknown) (no (unknown) (unknown) I spent a total of (units (unknown) date) [] minutes of unknown) critical care time on this patient's care (unknown) (no (unknown) (unknown) INR 1.2 (units (unkno wn) date) unknown) (unknown) (no (unknown) (unknown) INR (units (unkno wn) date) unknown) (unknown) (no (unknown) (unknown) [facility] (units (unknown) date) [address] unknown) [place] [address] (unknown) (no (unknown) (unknown) Laboratory Results (units (unknown) date) - last 24 hr unknown) (unknown) (no (unknown) (unknown) Labs (units (unkno wn) date) unknown) (unknown) (no (unknown) (unknown) Labs: (units (unkno wn) date) unknown) (unknown) (no (unknown) (unknown) Duncan Rock is a (units (unknown) date) 72-year-old female unknown) with a PMH of idiopathic pulmonary (unknown) (no (unknown) (unknown) Lipase 152 (units (unk nown) date) unknown) (unknown) (no (unknown) (unknown) Lipase (units (unkno wn) date) unknown) (unknown) (no (unknown) (unknown) Lungs: (units (unkno wn) date) Auscultation of all unknown) lung barney are clear without adventitious sounds, (unknown) (no (unknown) (unknown) Lymph # (Auto) (units (unknown) date) 1700 unknown) (unknown) (no (unknown) (unknown) Lymph # (Auto) (units (unknown) date) unknown) (unknown) (no (unknown) (unknown) Lymph % (Auto) (units (unknown) date) 18.2 L unknown) (unknown) (no (unknown) (unknown) Lymph % (Auto) (units (unknown) date) unknown) (unknown) (no (unknown) (unknown) MCH 28.0 (units (unkno wn) date) unknown) (unknown) (no (unknown) (unknown) MCH (units (unkno wn) date) unknown) (unknown) (no (unknown) (unknown) MCHC 33.0 (units (unkn own) date) unknown) (unknown) (no (unknown) (unknown) MCHC (units (unkno wn) date) unknown) (unknown) (no (unknown) (unknown) MCV 84.9 (units (unkno wn) date) unknown) (unknown) (no (unknown) (unknown) MCV (units (unkno wn) date) unknown) (unknown) (no (unknown) (unknown) Magnesium 1.9 (units ( unknown) date) unknown) (unknown) (no (unknown) (unknown) Magnesium (units (unkn own) date) unknown) (unknown) (no (unknown) (unknown) Measuring 6.4 cm.? (units (unknown) date) She will need close unknown) follow-up.? She is on metoprolol for (unknown) (no (unknown) (unknown) Medical History (units (unknown) date) (Reviewed 05/10/22 unknown) @ 02:25 by DAINA Parikh) (unknown) (no (unknown) (unknown) Medication (units (unk nown) date) Instructions unknown) Recorded Confirmed Type (unknown) (no (unknown) (unknown) Meds (units (unkno wn) date) unknown) (unknown) (no (unknown) (unknown) Mobile # (Auto) 700 (units (unknown) date) unknown) (unknown) (no (unknown) (unknown) Mobile # (Auto) (units ( unknown) date) unknown) (unknown) (no (unknown) (unknown) Mobile % (Auto) 7.7 (units (unknown) date) unknown) (unknown) (no (unknown) (unknown) Mobile % (Auto) (units ( unknown) date) unknown) (unknown) (no (unknown) (unknown) Mother TIA (units (unk nown) date) (transient ischemic unknown) attack) (unknown) (no (unknown) (unknown) Musculoskeletal: (units (unknown) date) Muscle strength and unknown) tone are equal within normal limits, no (unknown) (no (unknown) (unknown) Myocardial (units (unk nown) date) infarction unknown) (unknown) (no (unknown) (unknown) Narrative (units (unkn own) date) unknown) (unknown) (no (unknown) (unknown) Narrative: (units (unk nown) date) unknown) (unknown) (no (unknown) (unknown) Negative for JVD (units (unknown) date) unknown) (unknown) (no (unknown) (unknown) Neuro: Alert and (units (unknown) date) orientated x3, unknown) moves all extremities, sensation to touch (unknown) (no (unknown) (unknown) Neut # (Auto) 6800 (units (unknown) date) unknown) (unknown) (no (unknown) (unknown) Neut # (Auto) (units ( unknown) date) unknown) (unknown) (no (unknown) (unknown) Neut % (Auto) 72.2 (units (unknown) date) unknown) (unknown) (no (unknown) (unknown) Neut % (Auto) (units ( unknown) date) unknown) (unknown) (no (unknown) (unknown) Objective (units (unkn own) date) unknown) (unknown) (no (unknown) (unknown) On admit patient (units (unknown) date) denies chest pain + unknown) SOB at rest, headache, changes in vision, (unknown) (no (unknown) (unknown) Oxygen Delivery (units (unknown) date) Method Room Air unknown) (unknown) (no (unknown) (unknown) Oxygen Delivery (units (unknown) date) Method unknown) (unknown) (no (unknown) (unknown) PT 13.5 H (units (unkn own) date) unknown) (unknown) (no (unknown) (unknown) PT (units (unkno wn) date) unknown) (unknown) (no (unknown) (unknown) Patient History (units (unknown) date) unknown) (unknown) (no (unknown) (unknown) Patient: (units (unkno wn) date) Duncan Rock unknown) MR#: [id number] (unknown) (no (unknown) (unknown) Plt Count 328 (units ( unknown) date) unknown) (unknown) (no (unknown) (unknown) Plt Count (units (unkn own) date) unknown) (unknown) (no (unknown) (unknown) Potassium 4.4 (units ( unknown) date) unknown) (unknown) (no (unknown) (unknown) Potassium (units (unkn own) date) unknown) (unknown) (no (unknown) (unknown) [place] [facility] (units (unknown) date) for ?too bad valves unknown) and aortic aneurysm?.? After TX (unknown) (no (unknown) (unknown) Provider: (units (unkn own) date) May Sloan unknown) [employer] APPRENTICE-BC (unknown) (no (unknown) (unknown) Proxy: Her[place] (units (unknown) date) Emery, perfecto unknown) partner (unknown) (no (unknown) (unknown) Psych: Patient has (units (unknown) date) a well-kept unknown) appearance, appropriate affect, mental status (unknown) (no (unknown) (unknown) Pulse Oximetry 100 (units (unknown) date) unknown) (unknown) (no (unknown) (unknown) Pulse Oximetry 96 (units (unknown) date) 96 unknown) (unknown) (no (unknown) (unknown) Pulse Oximetry 96 (units (unknown) date) 98 unknown) (unknown) (no (unknown) (unknown) Pulse Oximetry 97 (units (unknown) date) 97 unknown) (unknown) (no (unknown) (unknown) Pulse Oximetry 97 (units (unknown) date) unknown) (unknown) (no (unknown) (unknown) Pulse Oximetry 98 (units (unknown) date) unknown) (unknown) (no (unknown) (unknown) Pulse Oximetry 99 (units (unknown) date) 98 97 unknown) (unknown) (no (unknown) (unknown) Pulse Rate 41 L 41 (units (unknown) date) L unknown) (unknown) (no (unknown) (unknown) Pulse Rate 41 L (units (unknown) date) unknown) (unknown) (no (unknown) (unknown) Pulse Rate 42 L 41 (units (unknown) date) L unknown) (unknown) (no (unknown) (unknown) Pulse Rate 42 L 43 (units (unknown) date) L 43 L unknown) (unknown) (no (unknown) (unknown) Pulse Rate 43 L 45 (units (unknown) date) L unknown) (unknown) (no (unknown) (unknown) Pulse Rate 44 L 43 (units (unknown) date) L unknown) (unknown) (no (unknown) (unknown) Pulse Rate 45 L 43 (units (unknown) date) L unknown) (unknown) (no (unknown) (unknown) RBC 5.06 (units (unkno wn) date) unknown) (unknown) (no (unknown) (unknown) RBC (units (unkno wn) date) unknown) (unknown) (no (unknown) (unknown) RDW 15.0 H (units (unk nown) date) unknown) (unknown) (no (unknown) (unknown) RDW (units (unkno wn) date) unknown) (unknown) (no (unknown) (unknown) Respiratory Rate (units (unknown) date) 18 44 H unknown) (unknown) (no (unknown) (unknown) Respiratory Rate (units (unknown) date) 20 19 unknown) (unknown) (no (unknown) (unknown) Respiratory Rate (units (unknown) date) 21 42 H unknown) (unknown) (no (unknown) (unknown) Respiratory Rate (units (unknown) date) 22 unknown) (unknown) (no (unknown) (unknown) Respiratory Rate (units (unknown) date) 23 24 unknown) (unknown) (no (unknown) (unknown) Respiratory Rate (units (unknown) date) 42 H 42 H unknown) (unknown) (no (unknown) (unknown) Respiratory Rate (units (unknown) date) 42 H unknown) (unknown) (no (unknown) (unknown) Respiratory Rate (units (unknown) date) 43 H 12 14 unknown) (unknown) (no (unknown) (unknown) Respiratory Rate (units (unknown) date) 43 H unknown) (unknown) (no (unknown) (unknown) Restrictive lung (units (unknown) date) disease unknown) (unknown) (no (unknown) (unknown) Review of Systems (units (unknown) date) unknown) (unknown) (no (unknown) (unknown) SARS-CoV-2 (PCR) (units (unknown) date) Negative unknown) (unknown) (no (unknown) (unknown) SARS-CoV-2 (PCR) (units (unknown) date) unknown) (unknown) (no (unknown) (unknown) Safety + (units (unkno wn) date) Behavioral: unknown) (unknown) (no (unknown) (unknown) She is not on any (units (unknown) date) outpatient unknown) medications or inhalers. (unknown) (no (unknown) (unknown) Signed (units (unkno wn) date) By:<Electronically unknown) signed by [facility]> (unknown) (no (unknown) (unknown) Skin: Warm dry and (units (unknown) date) intact without unknown) rashes, ulcerations or petechiae. 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 unknown) (unknown) (no (unknown) (unknown) Surgical History (units (unknown) date) (Reviewed 05/10/22 unknown) @ 02:25 by [facility]) (unknown) (no (unknown) (unknown) Temperature 98 F (units (unknown) date) unknown) (unknown) (no (unknown) (unknown) Temperature (units (un known) date) unknown) (unknown) (no (unknown) (unknown) Threatened By a (units (unknown) date) Person unknown) (unknown) (no (unknown) (unknown) Time Patient Seen: (units (unknown) date) 02:13 unknown) (unknown) (no (unknown) (unknown) Time Spent With (units (unknown) date) Patient unknown) (unknown) (no (unknown) (unknown) Tobacco + (units (unkn own) date) Substance use: unknown) (unknown) (no (unknown) (unknown) Tobacco type (units (u nknown) date) cigarettes unknown) (unknown) (no (unknown) (unknown) Total Bilirubin (units (unknown) date) 0.8 unknown) (unknown) (no (unknown) (unknown) Total Bilirubin (units (unknown) date) unknown) (unknown) (no (unknown) (unknown) Total Creatine (units (unknown) date) Kinase 44 unknown) (unknown) (no (unknown) (unknown) Total Creatine (units (unknown) date) Kinase unknown) (unknown) (no (unknown) (unknown) Total Protein 7.7 (units (unknown) date) unknown) (unknown) (no (unknown) (unknown) Total Protein (units ( unknown) date) unknown) (unknown) (no (unknown) (unknown) Troponin I 0.018 (units (unknown) date) unknown) (unknown) (no (unknown) (unknown) Troponin I (units (unk nown) date) unknown) (unknown) (no (unknown) (unknown) Vital Signs (units (un known) date) unknown) (unknown) (no (unknown) (unknown) WBC 9.4 (units (unkno wn) date) unknown) (unknown) (no (unknown) (unknown) WBC (units (unkno wn) date) unknown) (unknown) (no (unknown) (unknown) [Embedded Image (units (unknown) date) Not Available] unknown) (unknown) (no (unknown) (unknown) [From Septra] (units ( unknown) date) unknown) (unknown) (no (unknown) (unknown) abnormalities (units ( unknown) date) prolonged QTC 494 unknown) without ST or T-wave changes. Last echo 10/05 (unknown) (no (unknown) (unknown) adhesive tape (units ( unknown) date) AdvReac Verified unknown) 05/09/22 21:46 (unknown) (no (unknown) (unknown) alcohol intake (units (unknown) date) current unknown) (unknown) (no (unknown) (unknown) alcohol intake (units (unknown) date) frequency 0-2 unknown) drinks per day (unknown) (no (unknown) (unknown) and left hip (units (u nknown) date) fracture ORIF with unknown) ARF 03/24/2022??Followe d by Cardiology at (unknown) (no (unknown) (unknown) angina/shortness (units (unknown) date) of breath,and unknown) bradycardia. Patient has sustained bradycardia (unknown) (no (unknown) (unknown) approximately 1 (units (unknown) date) week ago which was unknown) found Dr. Mckeon to have been completed on (unknown) (no (unknown) (unknown) are present in all (units (unknown) date) 4 quadrants without unknown) guarding or rebound, no CVA tenderness. (unknown) (no (unknown) (unknown) aspirin 81 mg (units ( unknown) date) tablet,delayed 81 unknown) mg PO DAILY 05/10/22 05/10/22 History (unknown) (no (unknown) (unknown) attitude thought (units (unknown) date) context and unknown) judgment are appropriate for age. (unknown) (no (unknown) (unknown) b.i.d. and (units (unk nown) date) complains of low unknown) energy with exertional angina/shortness of breath (unknown) (no (unknown) (unknown) blood pressure (units (unknown) date) control. unknown) (unknown) (no (unknown) (unknown) bradycardia and (units (unknown) date) that she may need unknown) to be tapered back on her pain medications-a (unknown) (no (unknown) (unknown) bradycardia, (units (u nknown) date) exertional unknown) angina/dyspnea. Once bradycardia can be resolved the (unknown) (no (unknown) (unknown) call safety and health manager (units (unknown) date) recommended unknown) decreasing the metoprolol dose by half and adding (unknown) (no (unknown) (unknown) cardiac demand (units (unknown) date) ischemia. unknown) (unknown) (no (unknown) (unknown) catheterization (units (unknown) date) unknown) (unknown) (no (unknown) (unknown) changes, (units (unkno wn) date) constipation, unknown) incontinence, melena, rashes, recent illness with the (unknown) (no (unknown) (unknown) chills, cough, (units (unknown) date) recent exposure to unknown) illness, abdominal pain, nausea, vomiting, (unknown) (no (unknown) (unknown) cholecalciferol (units (unknown) date) (vitamin D3) 50 50 unknown) mcg PO DAILY 03/25/22 03/25/22 History (unknown) (no (unknown) (unknown) chronic, present (units (unknown) date) on unknown) admission-patient is stable and in no distress (unknown) (no (unknown) (unknown) clear and mucous (units (unknown) date) membranes are unknown) moist. Neck is supple and symmetric, trachea is (unknown) (no (unknown) (unknown) clearance 42, PT (units (unknown) date) 13.5 although INR unknown) stable 1.2 PTT 50, troponin 0.018, COVID is (unknown) (no (unknown) (unknown) continued in the (units (unknown) date) 40s throughout the unknown) night. Metoprolol (unknown) (no (unknown) (unknown) decreasing the (units (unknown) date) metoprolol dose by unknown) half and adding 2.5 amlodipine, and repeating (unknown) (no (unknown) (unknown) deformity, (units (unk nown) date) crepitus, unknown) effusions, cyanosis, clubbing or edema present. Full range (unknown) (no (unknown) (unknown) diagnostic (units (unk nown) date) imaging, and unknown) laboratory results. (unknown) (no (unknown) (unknown) diazepam 10 mg (units (unknown) date) tablet (Valium) 10 unknown) mg PO BEDTIME 03/25/22 03/25/22 History (unknown) (no (unknown) (unknown) difficulty (units (unk nown) date) swallowing, speech unknown) impairment, weakness, numbness, tingling, (unknown) (no (unknown) (unknown) difficulty with (units (unknown) date) ambulation, recent unknown) falls, head injury, LOC, fever, body aches, (unknown) (no (unknown) (unknown) discussion for (units (unknown) date) follow-up with unknown) Cardiology and PCP (unknown) (no (unknown) (unknown) documented and/or (units (unknown) date) surrogate decision unknown) maker is listed in the patient's medical (unknown) (no (unknown) (unknown) documented. (units (un known) date) unknown) (unknown) (no (unknown) (unknown) dramatically (units (u nknown) date) decreasing her unknown) activity level. Her cardiology office today advised (unknown) (no (unknown) (unknown) due to (units (unkno wn) date) bradycardia, unknown) exertional angina/dyspnea. (unknown) (no (unknown) (unknown) echo, with urgent (units (unknown) date) follow-up in their unknown) clinic. Patient admitted for observation (unknown) (no (unknown) (unknown) epilepsy, NSTEMI (units (unknown) date) 03/07-pending unknown) cardiac follow-up/catheteri zation, and left hip (unknown) (no (unknown) (unknown) exception of those (units (unknown) date) noted above.. unknown) (unknown) (no (unknown) (unknown) fatigue. (units (unkno wn) date) unknown) (unknown) (no (unknown) (unknown) fentanyl 75 mcg/hr (units (unknown) date) transdermal 75 mcg unknown) transdermal 3XD pain 03/23/22 03/23/22 (unknown) (no (unknown) (unknown) fibrosis, HTN, (units ( unknown) date) hypothyroid, unknown) fibromyalgia, ascending aortic aneurysm, depression, (unknown) (no (unknown) (unknown) fibrosis, HTN, (units (unknown) date) hypothyroid, unknown) fibromyalgia, chronic pain medication, meth use or (unknown) (no (unknown) (unknown) fluoxetine 40 mg (units (unknown) date) capsule (Prozac) 40 unknown) mg PO DAILY ##0 11/29/12 03/25/22 History (unknown) (no (unknown) (unknown) follow-up (units ( unknown) date) [facility] unknown) for cardiac catheterization. (unknown) (no (unknown) (unknown) follow-up with PCP (units (unknown) date) unknown) (unknown) (no (unknown) (unknown) for ?too bad (units (u nknown) date) valves and aortic unknown) aneurysm?.? After TX with metoprolol 50 mg (unknown) (no (unknown) (unknown) fracture ORIF with (units (unknown) date) ARF unknown) 03/24/2022??Followe d by Cardiology at [facility] (unknown) (no (unknown) (unknown) furosemide 20 mg (units (unknown) date) tablet 20 mg PO unknown) DAILY 05/10/22 05/10/22 History (unknown) (no (unknown) (unknown) history of (units (unk nown) date) epilepsy, NSTEMI unknown) 03/07-pending cardiac follow-up/catheteri zation, (unknown) (no (unknown) (unknown) household members (units (unknown) date) significant other unknown) (unknown) (no (unknown) (unknown) hx , regular ETOH (units (unknown) date) use, ascending unknown) aortic aneurysm, depression, history of (unknown) (no (unknown) (unknown) in ED and on floor (units (unknown) date) in the 40s. Patient unknown) admitted for observation due to (unknown) (no (unknown) (unknown) in the ED where (units (unknown) date) patient is being unknown) followed on-call safety and health manager recommended (unknown) (no (unknown) (unknown) intact, no gross (units (unknown) date) deficits noted of unknown) cranial nerves. (unknown) (no (unknown) (unknown) lamotrigine 100 mg (units (unknown) date) tablet 50 mg PO unknown) DAILY 03/25/22 03/25/22 History (unknown) (no (unknown) (unknown) levothyroxine 100 (units (unknown) date) mcg capsule 100 mcg unknown) PO DAILY 05/10/22 05/10/22 History (unknown) (no (unknown) (unknown) mcg (2,000 unit) (units (unknown) date) tablet unknown) (unknown) (no (unknown) (unknown) metoprolol 50 mg (units (unknown) date) b.i.d. initiated unknown) and complains of low energy with exertional (unknown) (no (unknown) (unknown) metoprolol (units (unk nown) date) tartrate 50 mg unknown) tablet 50 mg PO BID 03/25/22 03/25/22 History (unknown) (no (unknown) (unknown) mg tablet (units (unkn own) date) (Percocet) 4-6) unknown) (unknown) (no (unknown) (unknown) midline, no (units (un known) date) adenopathy, no unknown) thyroid enlargement, nontender, no masses palpated. (unknown) (no (unknown) (unknown) negative. (units (unkn own) date) Patient's EKG sinus unknown) Yves rate of 44 LVH with repolarization (unknown) (no (unknown) (unknown) of motion intact (units (unknown) date) radial and pedal unknown) pulses are normal. (unknown) (no (unknown) (unknown) orthopnea, lower (units (unknown) date) extremity edema, unknown) headaches but overall general malaise and (unknown) (no (unknown) (unknown) outpatient. (units (un known) date) -EMERGENT unknown) follow-up. (unknown) (no (unknown) (unknown) over last 24 hours (units (unknown) date) chills and unknown) significantly increased fatigue which has been (unknown) (no (unknown) (unknown) oxycodone-acetamin (units (unknown) date) ophen 5 mg-325 1 unknown) tab PO Q6H PRN Pain (Scale Score 03/25/22 (unknown) (no (unknown) (unknown) patch (units (unkno wn) date) unknown) (unknown) (no (unknown) (unknown) patient can be (units (unknown) date) seen emergently by unknown) Dr. Pérez cardiology at [facility] for cardiac (unknown) (no (unknown) (unknown) potassium chloride (units (unknown) date) 20 mEq 20 meq PO unknown) DAILY 05/10/22 05/10/22 History (unknown) (no (unknown) (unknown) record. (units (unkno wn) date) unknown) (unknown) (no (unknown) (unknown) release (units (unkno wn) date) unknown) (unknown) (no (unknown) (unknown) saturation 97% on (units (unknown) date) room air. CBC unknown) unremarkable, chloride 97, BUN 27, creatinine (unknown) (no (unknown) (unknown) she come in for (units (unknown) date) further unknown) evaluation.? She reports no overt fevers, cough, (unknown) (no (unknown) (unknown) sleep. (units (unkno wn) date) unknown) (unknown) (no (unknown) (unknown) sulfamethoxazole (units (unknown) date) Allergy Verified unknown) 05/09/22 21:46 (unknown) (no (unknown) (unknown) tablet,extended (units (unknown) date) release unknown) (unknown) (no (unknown) (unknown) that resolves with (units (unknown) date) nitroglycerin unknown) occurring more frequently, slow heart beat and (unknown) (no (unknown) (unknown) the patient's (units ( unknown) date) current unknown) medications. (unknown) (no (unknown) (unknown) this time. (units (unk nown) date) unknown) (unknown) (no (unknown) (unknown) thoracic aorta (units (unknown) date) redemonstrated, unknown) enlarged heart. [facility] was consulted (unknown) (no (unknown) (unknown) today; this time (units (unknown) date) is exclusive of unknown) procedural time. (unknown) (no (unknown) (unknown) trimethoprim [From (units (unknown) date) Septra] Allergy unknown) Verified 05/09/22 21:46 (unknown) (no (unknown) (unknown) urinary (units (unkno wn) date) incontinence/retent unknown) ion, dysuria, frequency, urgency, hematuria, bowel (unknown) (no (unknown) (unknown) vitamin B complex (units (unknown) date) 1 tab PO DAILY unknown) 03/25/22 03/25/22 History (unknown) (no (unknown) (unknown) wheezes, rhonchi, (units (unknown) date) or rales. unknown) (unknown) (no (unknown) (unknown) with an EF 60 65%. (units (unknown) date) Chest x-ray unknown) demonstrated aneurysmal dilation ascending Result panel 244 (unknown) (no (unknown) (unknown) (no value) (units (unk nown) date) unknown) (unknown) (no (unknown) (unknown) (past 8 hours): (units (unknown) date) unknown) (unknown) (no (unknown) (unknown) - TSH 5.89 (units (unk nown) date) unknown) (unknown) (no (unknown) (unknown) -03/23/2022 admit: (units (unknown) date) Troponin was unknown) 0.050, down trending to 0.041.? It likely to be (unknown) (no (unknown) (unknown) -EKG sinus Yves (units (unknown) date) rate of 44 LVH unknown) with repolarization abnormalities prolonged QTC (unknown) (no (unknown) (unknown) -[facility] (units (unkno wn) date) cardiology was unknown) consulted in the ED where patient is being followed on (unknown) (no (unknown) (unknown) -Ordered BNP, (units ( unknown) date) TSH/Free T4 unknown) (unknown) (no (unknown) (unknown) -Ordered TSH/T$ (units (unknown) date) unknown) (unknown) (no (unknown) (unknown) -PT 13.5 although (units (unknown) date) INR stable 1.2 PTT unknown) 50 (unknown) (no (unknown) (unknown) -Patient takes (units (unknown) date) fentanyl 75 mcg Q unknown) 72 hours.? Percocet q.4-6 hours (unknown) (no (unknown) (unknown) -Recommend (units (unk nown) date) reaching out to Dr unknown) [facility] for fast tracking Cardiac cath as an (unknown) (no (unknown) (unknown) -change home dose (units (unknown) date) of 100 unknown) levothyroxine to 125mcg QD repeat tsh outpatient (unknown) (no (unknown) (unknown) -discussed with (units (unknown) date) patient my unknown) concerns regarding polypharmacy in relation to her (unknown) (no (unknown) (unknown) -echo 10/05 with (units (unknown) date) an EF 60 65%. unknown) (unknown) (no (unknown) (unknown) -initial troponin (units (unknown) date) 0.018 will trend unknown) x3 (unknown) (no (unknown) (unknown) -initially reduce (units (unknown) date) metoprolol to 25 unknown) b.i.d., but asked patient's heart rate (unknown) (no (unknown) (unknown) -initiated (units (unk nown) date) amlodipine 2.5 unknown) q.day (unknown) (no (unknown) (unknown) -managed by (units (unknown) date) [facility] unknown) Cardiology (unknown) (no (unknown) (unknown) -patient (units (unkno wn) date) verbalized that unknown) she had echo completed [facility] (unknown) (no (unknown) (unknown) 04/27/2021-will (units (unknown) date) not repeat echo. unknown) (unknown) (no (unknown) (unknown) 05/09/22 05/09/22 (units (unknown) date) 05/09/22 unknown) (unknown) (no (unknown) (unknown) 05/09/22 21:59 (units (unknown) date) unknown) (unknown) (no (unknown) (unknown) 05/10/22 05/10/22 (units (unknown) date) 05/10/22 unknown) (unknown) (no (unknown) (unknown) 05/10/22 05:47 (units (unknown) date) unknown) (unknown) (no (unknown) (unknown) 05/10/22 (units (unkno wn) date) unknown) (unknown) (no (unknown) (unknown) [id number] (units (unkno wn) date) unknown) (unknown) (no (unknown) (unknown) 02:13 05:47 05:47 (units (unknown) date) unknown) (unknown) (no (unknown) (unknown) 04:00 05/10/22 (units (unknown) date) unknown) (unknown) (no (unknown) (unknown) 08:00 05/10/22 (units (unknown) date) unknown) (unknown) (no (unknown) (unknown) 08:00 (units (unkno wn) date) unknown) (unknown) (no (unknown) (unknown) 1. Bradycardia, (units (unknown) date) with exertional unknown) angina/dyspnea, acute, present on admission (unknown) (no (unknown) (unknown) 2 midnights once (units (unknown) date) bradycardia has unknown) been resolved, patient to emergent outpatient (unknown) (no (unknown) (unknown) 2. History of (units ( unknown) date) recent NSTEMI, unknown) requiring cardiac catheterization, acute on (unknown) (no (unknown) (unknown) 2.5 amlodipine, (units (unknown) date) and repeating unknown) echo, with urgent follow-up in their clinic. (unknown) (no (unknown) (unknown) 21:59 21:59 21:59 (units (unknown) date) unknown) (unknown) (no (unknown) (unknown) 22:04 22:04 22:05 (units (unknown) date) unknown) (unknown) (no (unknown) (unknown) 3. 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 unknown) (unknown) (no (unknown) (unknown) 5. 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 Depression, (units (unknown) date) chronic, present unknown) on admission (unknown) (no (unknown) (unknown) 8. (units (unkno wn) date) Hypothyroidism, unknown) acquired, chronic, present on admission (unknown) (no (unknown) (unknown) ALT 17 (units (unkno wn) date) unknown) (unknown) (no (unknown) (unknown) ALT (units (unkno wn) date) unknown) (unknown) (no (unknown) (unknown) APTT 50 H (units (unkn own) date) unknown) (unknown) (no (unknown) (unknown) APTT (units (unkno wn) date) unknown) (unknown) (no (unknown) (unknown) AST 26 (units (unkno wn) date) unknown) (unknown) (no (unknown) (unknown) AST (units (unkno wn) date) unknown) (unknown) (no (unknown) (unknown) Abdomen: Soft (units ( unknown) date) nontender, unknown) negative for organomegaly, or masses. Bowel sounds (unknown) (no (unknown) (unknown) Age/Sex: 72 / F (units (unknown) date) unknown) (unknown) (no (unknown) (unknown) Albumin 4.4 (units (un known) date) unknown) (unknown) (no (unknown) (unknown) Albumin (units (unkno wn) date) unknown) (unknown) (no (unknown) (unknown) Albumin/Globulin (units (unknown) date) Ratio 1.3 unknown) (unknown) (no (unknown) (unknown) Albumin/Globulin (units (unknown) date) Ratio unknown) (unknown) (no (unknown) (unknown) Alkaline (units (unkno wn) date) Phosphatase 109 unknown) (unknown) (no (unknown) (unknown) Alkaline (units (unkno wn) date) Phosphatase unknown) (unknown) (no (unknown) (unknown) Assessment + Plan (units (unknown) date) narrative: unknown) (unknown) (no (unknown) (unknown) Assessment + Plan (units (unknown) date) unknown) (unknown) (no (unknown) (unknown) BUN 27 H (units (unkno wn) date) unknown) (unknown) (no (unknown) (unknown) BUN (units (unkno wn) date) unknown) (unknown) (no (unknown) (unknown) BUN/Creatinine (units (unknown) date) Ratio 30.3 H unknown) (unknown) (no (unknown) (unknown) BUN/Creatinine (units (unknown) date) Ratio 31.0 H unknown) (unknown) (no (unknown) (unknown) BUN/Creatinine (units (unknown) date) Ratio unknown) (unknown) (no (unknown) (unknown) Baso # (Auto) 100 (units (unknown) date) unknown) (unknown) (no (unknown) (unknown) Baso # (Auto) (units ( unknown) date) unknown) (unknown) (no (unknown) (unknown) Baso % (Auto) 0.9 (units (unknown) date) unknown) (unknown) (no (unknown) (unknown) Baso % (Auto) (units ( unknown) date) unknown) (unknown) (no (unknown) (unknown) Blood Pressure (units (unknown) date) 121/57 L 123/53 L unknown) (unknown) (no (unknown) (unknown) CK-MB [...] nown) date) unknown) (unknown) (no (unknown) (unknown) COVID (units (unkno wn) date) PCR:Negative unknown) (unknown) (no (unknown) (unknown) Calcium 9.2 (units (un known) date) unknown) (unknown) (no (unknown) (unknown) Calcium 9.4 (units (un known) date) unknown) (unknown) (no (unknown) (unknown) Calcium (units (unkno wn) date) unknown) (unknown) (no (unknown) (unknown) Carbon Dioxide 27 (units (unknown) date) unknown) (unknown) (no (unknown) (unknown) Carbon Dioxide 28 (units (unknown) date) unknown) (unknown) (no (unknown) (unknown) Carbon Dioxide (units (unknown) date) unknown) (unknown) (no (unknown) (unknown) Cardio: (units (unkno wn) date) Bradycardic rate unknown) and rhythm (unknown) (no (unknown) (unknown) Chest: no nasal (units (unknown) date) flaring, unknown) retractions, or tachypneic labored breathing. (unknown) (no (unknown) (unknown) Chloride 96 L (units ( unknown) date) unknown) (unknown) (no (unknown) (unknown) Chloride 97 L (units ( unknown) date) unknown) (unknown) (no (unknown) (unknown) Chloride (units (unkno wn) date) unknown) (unknown) (no (unknown) (unknown) Continue (units (unkno wn) date) outpatient dose of unknown) Lamictal.? She also uses diazepam at bedtime for (unknown) (no (unknown) (unknown) Creatinine 0.87 (units (unknown) date) unknown) (unknown) (no (unknown) (unknown) Creatinine 0.89 (units (unknown) date) unknown) (unknown) (no (unknown) (unknown) Creatinine (units (unk nown) date) unknown) (unknown) (no (unknown) (unknown) Critical Care (units ( unknown) date) time: unknown) (unknown) (no (unknown) (unknown) : 1950 (units (unknown) date) Acct:[id number] unknown) (unknown) (no (unknown) (unknown) DVT/VTE (units (unkno wn) date) prophylaxis: unknown) Lovenox and SCD (unknown) (no (unknown) (unknown) Date of Service: (units (unknown) date) 05/10/22 unknown) (unknown) (no (unknown) (unknown) Disposition: (units (u nknown) date) Patient admitted unknown) for observation expected length of stay less than (unknown) (no (unknown) (unknown) Eos # (Auto) 100 (units (unknown) date) unknown) (unknown) (no (unknown) (unknown) Eos # (Auto) (units (u nknown) date) unknown) (unknown) (no (unknown) (unknown) Eos % (Auto) 1.0 (units (unknown) date) L unknown) (unknown) (no (unknown) (unknown) Eos % (Auto) (units (u nknown) date) unknown) (unknown) (no (unknown) (unknown) Estimated GFR > (units (unknown) date) 60 unknown) (unknown) (no (unknown) (unknown) Estimated GFR (units ( unknown) date) unknown) (unknown) (no (unknown) (unknown) Exam Narrative: (units (unknown) date) unknown) (unknown) (no (unknown) (unknown) Exam (units (unkno wn) date) unknown) (unknown) (no (unknown) (unknown) Family History (units (unknown) date) (Reviewed 05/10/22 unknown) @ 02:26 by DAINA Parikh) (unknown) (no (unknown) (unknown) Father No (units (unkn own) date) problems noted. unknown) (unknown) (no (unknown) (unknown) Fibromyalgia (units (u nknown) date) unknown) (unknown) (no (unknown) (unknown) Free T4 1.74 (units (u nknown) date) unknown) (unknown) (no (unknown) (unknown) Free T4 (units (unkno wn) date) unknown) (unknown) (no (unknown) (unknown) General: Patient (units (unknown) date) is a thin frail unknown) appearing elderly female in no distress at (unknown) (no (unknown) (unknown) Globulin 3.3 (units (u nknown) date) unknown) (unknown) (no (unknown) (unknown) Globulin (units (unkno wn) date) unknown) (unknown) (no (unknown) (unknown) Glucose 103 (units (un known) date) unknown) (unknown) (no (unknown) (unknown) Glucose 97 (units (unk nown) date) unknown) (unknown) (no (unknown) (unknown) Glucose (units (unkno wn) date) unknown) (unknown) (no (unknown) (unknown) HEENT: (units (unkno wn) date) Normocephalic, unknown) atraumatic, extraocular muscles intact, oral pharynx is (unknown) (no (unknown) (unknown) Hct 42.9 (units (unkno wn) date) unknown) (unknown) (no (unknown) (unknown) Hct (units (unkno wn) date) unknown) (unknown) (no (unknown) (unknown) Hgb 14.2 (units (unkno wn) date) unknown) (unknown) (no (unknown) (unknown) Hgb (units (unkno wn) date) unknown) (unknown) (no (unknown) (unknown) Hypertension (units (u nknown) date) unknown) (unknown) (no (unknown) (unknown) Hypothyroidism (units (unknown) date) unknown) (unknown) (no (unknown) (unknown) I confirmed that (units (unknown) date) the patient's unknown) advanced care plan is present, Code status is (unknown) (no (unknown) (unknown) I have personally (units (unknown) date) reviewed patient's unknown) chart notes from PCP, specialists, (unknown) (no (unknown) (unknown) I have utilized (units (unknown) date) all available unknown) immediate resources to obtain, update, or review (unknown) (no (unknown) (unknown) I spent a total (units (unknown) date) of [] minutes of unknown) critical care time on this patient's care (unknown) (no (unknown) (unknown) INR 1.2 (units (unkno wn) date) unknown) (unknown) (no (unknown) (unknown) INR (units (unkno wn) date) unknown) (unknown) (no (unknown) (unknown) [facility] (units (unknown) date) [address] unknown) [place] [address] (unknown) (no (unknown) (unknown) Laboratory (units (unk nown) date) Results - last 24 unknown) hr (unknown) (no (unknown) (unknown) Labs (units (unkno wn) date) unknown) (unknown) (no (unknown) (unknown) Labs: (units (unkno wn) date) unknown) (unknown) (no (unknown) (unknown) Duncan Rock is (units (unknown) date) a 72-year-old unknown) 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 (unknown) (no (unknown) (unknown) Lipase 152 (units (unk nown) date) unknown) (unknown) (no (unknown) (unknown) Lipase (units (unkno wn) date) unknown) (unknown) (no (unknown) (unknown) Lungs: (units (unkno wn) date) Auscultation of unknown) all lung barney are clear without adventitious sounds, (unknown) (no (unknown) (unknown) Lymph # (Auto) (units (unknown) date) 1700 unknown) (unknown) (no (unknown) (unknown) Lymph # (Auto) (units (unknown) date) unknown) (unknown) (no (unknown) (unknown) Lymph % (Auto) (units (unknown) date) 18.2 L unknown) (unknown) (no (unknown) (unknown) Lymph % (Auto) (units (unknown) date) unknown) (unknown) (no (unknown) (unknown) MCH 28.0 (units (unkno wn) date) unknown) (unknown) (no (unknown) (unknown) MCH (units (unkno wn) date) unknown) (unknown) (no (unknown) (unknown) MCHC 33.0 (units (unkn own) date) unknown) (unknown) (no (unknown) (unknown) MCHC (units (unkno wn) date) unknown) (unknown) (no (unknown) (unknown) MCV 84.9 (units (unkno wn) date) unknown) (unknown) (no (unknown) (unknown) MCV (units (unkno wn) date) unknown) (unknown) (no (unknown) (unknown) Magnesium 1.9 (units ( unknown) date) unknown) (unknown) (no (unknown) (unknown) Magnesium (units (unkn own) date) unknown) (unknown) (no (unknown) (unknown) Measuring 6.4 (units ( unknown) date) cm.? She will need unknown) close follow-up.? She is on metoprolol for (unknown) (no (unknown) (unknown) Medical History (units (unknown) date) (Reviewed 05/10/22 unknown) @ 02:25 by May [facility]) (unknown) (no (unknown) (unknown) Mobile # (Auto) 700 (units (unknown) date) unknown) (unknown) (no (unknown) (unknown) Mobile # (Auto) (units ( unknown) date) unknown) (unknown) (no (unknown) (unknown) Mobile % (Auto) 7.7 (units (unknown) date) unknown) (unknown) (no (unknown) (unknown) Mobile % (Auto) (units ( unknown) date) unknown) (unknown) (no (unknown) (unknown) Mother TIA (units (unk nown) date) (transient unknown) ischemic attack) (unknown) (no (unknown) (unknown) Musculoskeletal: (units (unknown) date) Muscle strength unknown) and tone are equal within normal limits, no (unknown) (no (unknown) (unknown) Myocardial (units (unk nown) date) infarction unknown) (unknown) (no (unknown) (unknown) NT-Pro-B (units (unkno wn) date) Natriuret Pep 6090 unknown) H (unknown) (no (unknown) (unknown) NT-Pro-B (units (unkno wn) date) Natriuret Pep unknown) (unknown) (no (unknown) (unknown) Narrative (units (unkn own) date) unknown) (unknown) (no (unknown) (unknown) Negative for JVD (units (unknown) date) unknown) (unknown) (no (unknown) (unknown) Neuro: Alert and (units (unknown) date) orientated x3, unknown) moves all extremities, sensation to touch (unknown) (no (unknown) (unknown) Neut # (Auto) (units ( unknown) date) 6800 unknown) (unknown) (no (unknown) (unknown) Neut # (Auto) (units ( unknown) date) unknown) (unknown) (no (unknown) (unknown) Neut % (Auto) (units ( unknown) date) 72.2 unknown) (unknown) (no (unknown) (unknown) Neut % (Auto) (units ( unknown) date) unknown) (unknown) (no (unknown) (unknown) Objective (units (unkn own) date) unknown) (unknown) (no (unknown) (unknown) Oxygen Delivery (units (unknown) date) Method Room Air unknown) (unknown) (no (unknown) (unknown) Oxygen Flow Rate (units (unknown) date) 0 unknown) (unknown) (no (unknown) (unknown) PFSH (units (unkno wn) date) unknown) (unknown) (no (unknown) (unknown) PT 13.5 H (units (unkn own) date) unknown) (unknown) (no (unknown) (unknown) PT (units (unkno wn) date) unknown) (unknown) (no (unknown) (unknown) Patient: (units (unkno wn) date) Duncan Rock unknown) MR#: [id number] (unknown) (no (unknown) (unknown) Plt Count 328 (units ( unknown) date) unknown) (unknown) (no (unknown) (unknown) Plt Count (units (unkn own) date) unknown) (unknown) (no (unknown) (unknown) Potassium 4.1 (units ( unknown) date) unknown) (unknown) (no (unknown) (unknown) Potassium 4.4 (units ( unknown) date) unknown) (unknown) (no (unknown) (unknown) Potassium (units (unkn own) date) unknown) (unknown) (no (unknown) (unknown) Progress Note (units ( unknown) date) unknown) (unknown) (no (unknown) (unknown) [place] (units (unk nown) date) [facility] for ?too unknown) bad valves and aortic aneurysm?.? After TX (unknown) (no (unknown) (unknown) Provider: (units (unkn own) date) Heraclio Mckeon unknown) D.O. (unknown) (no (unknown) (unknown) Proxy: Heraclio (units (unknown) date) [place] unknown) partner (unknown) (no (unknown) (unknown) Psych: Patient (units (unknown) date) has a well-kept unknown) appearance, appropriate affect, mental status (unknown) (no (unknown) (unknown) Pulse Oximetry 97 (units (unknown) date) 98 unknown) (unknown) (no (unknown) (unknown) Pulse Rate 45 L (units (unknown) date) 43 L unknown) (unknown) (no (unknown) (unknown) RBC 5.06 (units (unkno wn) date) unknown) (unknown) (no (unknown) (unknown) RBC (units (unkno wn) date) unknown) (unknown) (no (unknown) (unknown) RDW 15.0 H (units (unk nown) date) unknown) (unknown) (no (unknown) (unknown) RDW (units (unkno wn) date) unknown) (unknown) (no (unknown) (unknown) Respiratory Rate (units (unknown) date) 16 42 H unknown) (unknown) (no (unknown) (unknown) Restrictive lung (units (unknown) date) disease unknown) (unknown) (no (unknown) (unknown) SARS-CoV-2 (PCR) (units (unknown) date) Negative unknown) (unknown) (no (unknown) (unknown) SARS-CoV-2 (PCR) (units (unknown) date) unknown) (unknown) (no (unknown) (unknown) She is not on any (units (unknown) date) outpatient unknown) medications or inhalers. (unknown) (no (unknown) (unknown) Signed By: (units (unk nown) date) unknown) (unknown) (no (unknown) (unknown) Skin: Warm dry (units (unknown) date) and intact without unknown) rashes, ulcerations or petechiae. (unknown) (no (unknown) (unknown) Smoking Status: (units [...] wn) date) unknown) (unknown) (no (unknown) (unknown) Status post hip (units (unknown) date) surgery unknown) (unknown) (no (unknown) (unknown) Surgical History (units (unknown) date) (Reviewed 05/10/22 unknown) @ 02:25 by May [facility]loan [facility]) (unknown) (no (unknown) (unknown) TSH 5.89 H (units (unk nown) date) unknown) (unknown) (no (unknown) (unknown) TSH (units (unkno wn) date) unknown) (unknown) (no (unknown) (unknown) Temperature 97.8 (units (unknown) date) F 97.6 F unknown) (unknown) (no (unknown) (unknown) Time Spent With (units (unknown) date) Patient unknown) (unknown) (no (unknown) (unknown) Total Bilirubin (units (unknown) date) 0.8 unknown) (unknown) (no (unknown) (unknown) Total Bilirubin (units (unknown) date) unknown) (unknown) (no (unknown) (unknown) Total Creatine (units (unknown) date) Kinase 44 unknown) (unknown) (no (unknown) (unknown) Total Creatine (units (unknown) date) Kinase unknown) (unknown) (no (unknown) (unknown) Total Protein 7.7 (units (unknown) date) unknown) (unknown) (no (unknown) (unknown) Total Protein (units ( unknown) date) unknown) (unknown) (no (unknown) (unknown) Troponin I 0.013 (units (unknown) date) 0.014 unknown) (unknown) (no (unknown) (unknown) Troponin I 0.018 (units (unknown) date) unknown) (unknown) (no (unknown) (unknown) Troponin I (units (unk nown) date) unknown) (unknown) (no (unknown) (unknown) Vital Signs (units (un known) date) unknown) (unknown) (no (unknown) (unknown) WBC 9.4 (units (unkno wn) date) unknown) (unknown) (no (unknown) (unknown) WBC (units (unkno wn) date) unknown) (unknown) (no (unknown) (unknown) [Embedded Image (units (unknown) date) Not Available] unknown) (unknown) (no (unknown) (unknown) alcohol intake: (units (unknown) date) current unknown) (unknown) (no (unknown) (unknown) and left hip (units (u nknown) date) fracture ORIF with unknown) ARF 03/24/2022??Follow ed by Cardiology at (unknown) (no (unknown) (unknown) angina/shortness (units (unknown) date) of breath,and unknown) bradycardia. Patient has sustained bradycardia (unknown) (no (unknown) (unknown) approximately 1 (units (unknown) date) week ago which was unknown) found Dr. Mckeon to have been completed on (unknown) (no (unknown) (unknown) are present in (units (unknown) date) all 4 quadrants unknown) without guarding or rebound, no CVA tenderness. (unknown) (no (unknown) (unknown) attitude thought (units (unknown) date) context and unknown) judgment are appropriate for age. (unknown) (no (unknown) (unknown) blood pressure (units (unknown) date) control. unknown) (unknown) (no (unknown) (unknown) bradycardia and (units (unknown) date) that she may need unknown) to be tapered back on her pain medications-a (unknown) (no (unknown) (unknown) bradycardia, (units (u nknown) date) exertional unknown) angina/dyspnea. Once bradycardia can be resolved the (unknown) (no (unknown) (unknown) call safety and health manager (units (unknown) date) recommended unknown) decreasing the metoprolol dose by half and adding (unknown) (no (unknown) (unknown) cardiac demand (units (unknown) date) ischemia. unknown) (unknown) (no (unknown) (unknown) catheterization (units (unknown) date) unknown) (unknown) (no (unknown) (unknown) chronic, present (units (unknown) date) on unknown) admission-patient is stable and in no distress (unknown) (no (unknown) (unknown) clear and mucous (units (unknown) date) membranes are unknown) moist. Neck is supple and symmetric, trachea is (unknown) (no (unknown) (unknown) continued in the (units (unknown) date) 40s throughout the unknown) night. Metoprolol (unknown) (no (unknown) (unknown) deformity, (units (unk nown) date) crepitus, unknown) effusions, cyanosis, clubbing or edema present. Full range (unknown) (no (unknown) (unknown) diagnostic (units (unk nown) date) imaging, and unknown) laboratory results. (unknown) (no (unknown) (unknown) discussion for (units (unknown) date) follow-up with unknown) Cardiology and PCP (unknown) (no (unknown) (unknown) documented and/or (units (unknown) date) surrogate decision unknown) maker is listed in the patient's medical (unknown) (no (unknown) (unknown) fibrosis, HTN, (units ( unknown) date) hypothyroid, unknown) fibromyalgia, ascending aortic aneurysm, depression, (unknown) (no (unknown) (unknown) follow-up DrTheresa (units ( unknown) date) [facility] unknown) for cardiac catheterization. (unknown) (no (unknown) (unknown) follow-up with (units (unknown) date) PCP unknown) (unknown) (no (unknown) (unknown) history of (units (unk nown) date) epilepsy, NSTEMI unknown) 03/07-pending cardiac follow-up/catheter ization, (unknown) (no (unknown) (unknown) household (units (unkn own) date) members: unknown) significant other (unknown) (no (unknown) (unknown) in ED and on (units (u nknown) date) floor in the 40s. unknown) Patient admitted for observation due to (unknown) (no (unknown) (unknown) intact, no gross (units (unknown) date) deficits noted of unknown) cranial nerves. (unknown) (no (unknown) (unknown) metoprolol 50 mg (units (unknown) date) b.i.d. initiated unknown) and complains of low energy with exertional (unknown) (no (unknown) (unknown) midline, no (units (un known) date) adenopathy, no unknown) thyroid enlargement, nontender, no masses palpated. (unknown) (no (unknown) (unknown) of motion intact (units (unknown) date) radial and pedal unknown) pulses are normal. (unknown) (no (unknown) (unknown) outpatient. (units (un known) date) -EMERGENT unknown) follow-up. (unknown) (no (unknown) (unknown) patient can be (units (unknown) date) seen emergently by unknown) Dr. Pérez cardiology at [facility] for cardiac (unknown) (no (unknown) (unknown) record. (units (unkno wn) date) unknown) (unknown) (no (unknown) (unknown) sleep. (units (unkno wn) date) unknown) (unknown) (no (unknown) (unknown) substance use (units ( unknown) date) type: does not use unknown) (unknown) (no (unknown) (unknown) the patient's (units ( unknown) date) current unknown) medications. (unknown) (no (unknown) (unknown) this time. (units (unk nown) date) unknown) (unknown) (no (unknown) (unknown) today; this time (units (unknown) date) is exclusive of unknown) procedural time. (unknown) (no (unknown) (unknown) wheezes, rhonchi, (units (unknown) date) or rales. unknown) Result panel 245 (unknown) (no (unknown) (unknown) (no value) (units (unk nown) date) unknown) (unknown) (no (unknown) (unknown) (past 8 hours): (units (unknown) date) unknown) (unknown) (no (unknown) (unknown) - TSH 5.89 (units (unk nown) date) unknown) (unknown) (no (unknown) (unknown) -03/23/2022 admit: (units (unknown) date) Troponin was unknown) 0.050, down trending to 0.041.? It likely to be (unknown) (no (unknown) (unknown) -EKG sinus Yves (units (unknown) date) rate of 44 LVH unknown) with repolarization abnormalities prolonged QTC (unknown) (no (unknown) (unknown) -[facility] (units (unkno wn) date) cardiology was unknown) consulted in the ED where patient is being followed on (unknown) (no (unknown) (unknown) -Ordered BNP, (units ( unknown) date) TSH/Free T4 unknown) (unknown) (no (unknown) (unknown) -Ordered TSH/T$ (units (unknown) date) unknown) (unknown) (no (unknown) (unknown) -PT 13.5 although (units (unknown) date) INR stable 1.2 PTT unknown) 50 (unknown) (no (unknown) (unknown) -Patient takes (units (unknown) date) fentanyl 75 mcg Q unknown) 72 hours.? Percocet q.4-6 hours (unknown) (no (unknown) (unknown) -Recommend (units (unk nown) date) reaching out to Dr unknown) [facility] for fast tracking Cardiac cath as an (unknown) (no (unknown) (unknown) -change home dose (units (unknown) date) of 100 unknown) levothyroxine to 125mcg QD repeat tsh outpatient (unknown) (no (unknown) (unknown) -discussed with (units (unknown) date) patient my unknown) concerns regarding polypharmacy in relation to her (unknown) (no (unknown) (unknown) -echo 10/05 with (units (unknown) date) an EF 60 65%. unknown) (unknown) (no (unknown) (unknown) -initial troponin (units (unknown) date) 0.018 will trend unknown) x3 (unknown) (no (unknown) (unknown) -initially reduce (units (unknown) date) metoprolol to 25 unknown) b.i.d., but asked patient's heart rate (unknown) (no (unknown) (unknown) -initiated (units (unk nown) date) amlodipine 2.5 unknown) q.day (unknown) (no (unknown) (unknown) -managed by (units (unknown) date) [facility] unknown) Cardiology (unknown) (no (unknown) (unknown) -patient (units (unkno wn) date) verbalized that unknown) she had echo completed [facility] (unknown) (no (unknown) (unknown) 04/27/2021-will (units (unknown) date) not repeat echo. unknown) (unknown) (no (unknown) (unknown) 05/09/22 05/09/22 (units (unknown) date) 05/09/22 unknown) (unknown) (no (unknown) (unknown) 05/09/22 21:59 (units (unknown) date) unknown) (unknown) (no (unknown) (unknown) 05/10/22 05/10/22 (units (unknown) date) 05/10/22 unknown) (unknown) (no (unknown) (unknown) 05/10/22 05:47 (units (unknown) date) unknown) (unknown) (no (unknown) (unknown) 05/10/22 (units (unkno wn) date) unknown) (unknown) (no (unknown) (unknown) [id number] (units (unkno wn) date) unknown) (unknown) (no (unknown) (unknown) 02:13 05:47 05:47 (units (unknown) date) unknown) (unknown) (no (unknown) (unknown) 04:00 05/10/22 (units (unknown) date) unknown) (unknown) (no (unknown) (unknown) 08:00 05/10/22 (units (unknown) date) unknown) (unknown) (no (unknown) (unknown) 08:00 (units (unkno wn) date) unknown) (unknown) (no (unknown) (unknown) 1. Bradycardia, (units (unknown) date) with exertional unknown) angina/dyspnea, acute, present on admission (unknown) (no (unknown) (unknown) 2 midnights once (units (unknown) date) bradycardia has unknown) been resolved, patient to emergent outpatient (unknown) (no (unknown) (unknown) 2. History of (units ( unknown) date) recent NSTEMI, unknown) requiring cardiac catheterization, acute on (unknown) (no (unknown) (unknown) 2.5 amlodipine, (units (unknown) date) and repeating unknown) echo, with urgent follow-up in their clinic. (unknown) (no (unknown) (unknown) 21:59 21:59 21:59 (units (unknown) date) unknown) (unknown) (no (unknown) (unknown) 22:04 22:04 22:05 (units (unknown) date) unknown) (unknown) (no (unknown) (unknown) 3. 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 unknown) (unknown) (no (unknown) (unknown) 5. 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 Depression, (units (unknown) date) chronic, present unknown) on admission (unknown) (no (unknown) (unknown) 8. (units (unkno wn) date) Hypothyroidism, unknown) acquired, chronic, present on admission (unknown) (no (unknown) (unknown) ALT 17 (units (unkno wn) date) unknown) (unknown) (no (unknown) (unknown) ALT (units (unkno wn) date) unknown) (unknown) (no (unknown) (unknown) APTT 50 H (units (unkn own) date) unknown) (unknown) (no (unknown) (unknown) APTT (units (unkno wn) date) unknown) (unknown) (no (unknown) (unknown) AST 26 (units (unkno wn) date) unknown) (unknown) (no (unknown) (unknown) AST (units (unkno wn) date) unknown) (unknown) (no (unknown) (unknown) Abdomen: Soft (units ( unknown) date) nontender, unknown) negative for organomegaly, or masses. Bowel sounds (unknown) (no (unknown) (unknown) Age/Sex: 72 / F (units (unknown) date) unknown) (unknown) (no (unknown) (unknown) Albumin 4.4 (units (un known) date) unknown) (unknown) (no (unknown) (unknown) Albumin (units (unkno wn) date) unknown) (unknown) (no (unknown) (unknown) Albumin/Globulin (units (unknown) date) Ratio 1.3 unknown) (unknown) (no (unknown) (unknown) Albumin/Globulin (units (unknown) date) Ratio unknown) (unknown) (no (unknown) (unknown) Alkaline (units (unkno wn) date) Phosphatase 109 unknown) (unknown) (no (unknown) (unknown) Alkaline (units (unkno wn) date) Phosphatase unknown) (unknown) (no (unknown) (unknown) Assessment + Plan (units (unknown) date) narrative: unknown) (unknown) (no (unknown) (unknown) Assessment + Plan (units (unknown) date) unknown) (unknown) (no (unknown) (unknown) BUN 27 H (units (unkno wn) date) unknown) (unknown) (no (unknown) (unknown) BUN (units (unkno wn) date) unknown) (unknown) (no (unknown) (unknown) BUN/Creatinine (units (unknown) date) Ratio 30.3 H unknown) (unknown) (no (unknown) (unknown) BUN/Creatinine (units (unknown) date) Ratio 31.0 H unknown) (unknown) (no (unknown) (unknown) BUN/Creatinine (units (unknown) date) Ratio unknown) (unknown) (no (unknown) (unknown) Baso # (Auto) 100 (units (unknown) date) unknown) (unknown) (no (unknown) (unknown) Baso # (Auto) (units ( unknown) date) unknown) (unknown) (no (unknown) (unknown) Baso % (Auto) 0.9 (units (unknown) date) unknown) (unknown) (no (unknown) (unknown) Baso % (Auto) (units ( unknown) date) unknown) (unknown) (no (unknown) (unknown) Blood Pressure (units (unknown) date) 121/57 L 123/53 L unknown) (unknown) (no (unknown) (unknown) CK-MB [...] nown) date) unknown) (unknown) (no (unknown) (unknown) COVID (units (unkno wn) date) PCR:Negative unknown) (unknown) (no (unknown) (unknown) Calcium 9.2 (units (un known) date) unknown) (unknown) (no (unknown) (unknown) Calcium 9.4 (units (un known) date) unknown) (unknown) (no (unknown) (unknown) Calcium (units (unkno wn) date) unknown) (unknown) (no (unknown) (unknown) Carbon Dioxide 27 (units (unknown) date) unknown) (unknown) (no (unknown) (unknown) Carbon Dioxide 28 (units (unknown) date) unknown) (unknown) (no (unknown) (unknown) Carbon Dioxide (units (unknown) date) unknown) (unknown) (no (unknown) (unknown) Cardio: (units (o wn) date) Bradycardic rate unknown) and rhythm (unknown) (no (unknown) (unknown) Chest: no nasal (units (unknown) date) flaring, unknown) retractions, or tachypneic labored breathing. (unknown) (no (unknown) (unknown) Chloride 96 L (units ( unknown) date) unknown) (unknown) (no (unknown) (unknown) Chloride 97 L (units ( unknown) date) unknown) (unknown) (no (unknown) (unknown) Chloride (units (unkno wn) date) unknown) (unknown) (no (unknown) (unknown) Continue (units ( wn) date) outpatient dose of unknown) Lamictal.? She also uses diazepam at bedtime for (unknown) (no (unknown) (unknown) Creatinine 0.87 (units (unknown) date) unknown) (unknown) (no (unknown) (unknown) Creatinine 0.89 (units (unknown) date) unknown) (unknown) (no (unknown) (unknown) Creatinine (units (unk nown) date) unknown) (unknown) (no (unknown) (unknown) Critical Care (units ( unknown) date) time: unknown) (unknown) (no (unknown) (unknown) : 1950 (units (unknown) date) Acct:[id number] unknown) (unknown) (no (unknown) (unknown) DVT/VTE (units (o wn) date) prophylaxis: unknown) Lovenox and SCD (unknown) (no (unknown) (unknown) Date of Service: (units (unknown) date) 05/10/22 unknown) (unknown) (no (unknown) (unknown) Disposition: (units (u nknown) date) Patient admitted unknown) for observation expected length of stay less than (unknown) (no (unknown) (unknown) Eos # (Auto) 100 (units (unknown) date) unknown) (unknown) (no (unknown) (unknown) Eos # (Auto) (units (u nknown) date) unknown) (unknown) (no (unknown) (unknown) Eos % (Auto) 1.0 (units (unknown) date) L unknown) (unknown) (no (unknown) (unknown) Eos % (Auto) (units (u nknown) date) unknown) (unknown) (no (unknown) (unknown) Estimated GFR > (units (unknown) date) 60 unknown) (unknown) (no (unknown) (unknown) Estimated GFR (units ( unknown) date) unknown) (unknown) (no (unknown) (unknown) Exam Narrative: (units (unknown) date) unknown) (unknown) (no (unknown) (unknown) Exam (units (unkno wn) date) unknown) (unknown) (no (unknown) (unknown) Family History (units (unknown) date) (Reviewed 05/10/22 unknown) @ 02:26 by DAINA Parikh) (unknown) (no (unknown) (unknown) Father No (units (unkn own) date) problems noted. unknown) (unknown) (no (unknown) (unknown) Fibromyalgia (units (u nknown) date) unknown) (unknown) (no (unknown) (unknown) Free T4 1.74 (units (u nknown) date) unknown) (unknown) (no (unknown) (unknown) Free T4 (units (unkno wn) date) unknown) (unknown) (no (unknown) (unknown) General: Patient (units (unknown) date) is a thin frail unknown) appearing elderly female in no distress at (unknown) (no (unknown) (unknown) Globulin 3.3 (units (u nknown) date) unknown) (unknown) (no (unknown) (unknown) Globulin (units (unkno wn) date) unknown) (unknown) (no (unknown) (unknown) Glucose 103 (units (un known) date) unknown) (unknown) (no (unknown) (unknown) Glucose 97 (units (unk nown) date) unknown) (unknown) (no (unknown) (unknown) Glucose (units (unkno wn) date) unknown) (unknown) (no (unknown) (unknown) HEENT: (units (unkno wn) date) Normocephalic, unknown) atraumatic, extraocular muscles intact, oral pharynx is (unknown) (no (unknown) (unknown) Hct 42.9 (units (unkno wn) date) unknown) (unknown) (no (unknown) (unknown) Hct (units (unkno wn) date) unknown) (unknown) (no (unknown) (unknown) Hgb 14.2 (units (unkno wn) date) unknown) (unknown) (no (unknown) (unknown) Hgb (units (unkno wn) date) unknown) (unknown) (no (unknown) (unknown) Hypertension (units (u nknown) date) unknown) (unknown) (no (unknown) (unknown) Hypothyroidism (units (unknown) date) unknown) (unknown) (no (unknown) (unknown) I confirmed that (units (unknown) date) the patient's unknown) advanced care plan is present, Code status is (unknown) (no (unknown) (unknown) I have personally (units (unknown) date) reviewed patient's unknown) chart notes from PCP, specialists, (unknown) (no (unknown) (unknown) I have utilized (units (unknown) date) all available unknown) immediate resources to obtain, update, or review (unknown) (no (unknown) (unknown) I spent a total (units (unknown) date) of [] minutes of unknown) critical care time on this patient's care (unknown) (no (unknown) (unknown) INR 1.2 (units (unkno wn) date) unknown) (unknown) (no (unknown) (unknown) INR (units (unkno wn) date) unknown) (unknown) (no (unknown) (unknown) [facility] (units (unknown) date) [address] unknown) [place] [address] (unknown) (no (unknown) (unknown) Laboratory (units (unk nown) date) Results - last 24 unknown) hr (unknown) (no (unknown) (unknown) Labs (units (unkno wn) date) unknown) (unknown) (no (unknown) (unknown) Labs: (units (unkno wn) date) unknown) (unknown) (no (unknown) (unknown) Duncan Rock is (units (unknown) date) a 72-year-old unknown) 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 (unknown) (no (unknown) (unknown) Lipase 152 (units (unk nown) date) unknown) (unknown) (no (unknown) (unknown) Lipase (units (unkno wn) date) unknown) (unknown) (no (unknown) (unknown) Lungs: (units (unkno wn) date) Auscultation of unknown) all lung barney are clear without adventitious sounds, (unknown) (no (unknown) (unknown) Lymph # (Auto) (units (unknown) date) 1700 unknown) (unknown) (no (unknown) (unknown) Lymph # (Auto) (units (unknown) date) unknown) (unknown) (no (unknown) (unknown) Lymph % (Auto) (units (unknown) date) 18.2 L unknown) (unknown) (no (unknown) (unknown) Lymph % (Auto) (units (unknown) date) unknown) (unknown) (no (unknown) (unknown) MCH 28.0 (units (unkno wn) date) unknown) (unknown) (no (unknown) (unknown) MCH (units (unkno wn) date) unknown) (unknown) (no (unknown) (unknown) MCHC 33.0 (units (unkn own) date) unknown) (unknown) (no (unknown) (unknown) MCHC (units (unkno wn) date) unknown) (unknown) (no (unknown) (unknown) MCV 84.9 (units (unkno wn) date) unknown) (unknown) (no (unknown) (unknown) MCV (units (unkno wn) date) unknown) (unknown) (no (unknown) (unknown) Magnesium 1.9 (units ( unknown) date) unknown) (unknown) (no (unknown) (unknown) Magnesium (units (unkn own) date) unknown) (unknown) (no (unknown) (unknown) Measuring 6.4 (units ( unknown) date) cm.? She will need unknown) close follow-up.? She is on metoprolol for (unknown) (no (unknown) (unknown) Medical History (units (unknown) date) (Reviewed 05/10/22 unknown) @ 02:25 by DAINA Parikh) (unknown) (no (unknown) (unknown) Mobile # (Auto) 700 (units (unknown) date) unknown) (unknown) (no (unknown) (unknown) Mobile # (Auto) (units ( unknown) date) unknown) (unknown) (no (unknown) (unknown) Mobile % (Auto) 7.7 (units (unknown) date) unknown) (unknown) (no (unknown) (unknown) Mobile % (Auto) (units ( unknown) date) unknown) (unknown) (no (unknown) (unknown) Mother TIA (units (unk nown) date) (transient unknown) ischemic attack) (unknown) (no (unknown) (unknown) Musculoskeletal: (units (unknown) date) Muscle strength unknown) and tone are equal within normal limits, no (unknown) (no (unknown) (unknown) Myocardial (units (unk nown) date) infarction unknown) (unknown) (no (unknown) (unknown) NT-Pro-B (units (unkno wn) date) Natriuret Pep 6090 unknown) H (unknown) (no (unknown) (unknown) NT-Pro-B (units (unkno wn) date) Natriuret Pep unknown) (unknown) (no (unknown) (unknown) Narrative (units (unkn own) date) unknown) (unknown) (no (unknown) (unknown) Negative for JVD (units (unknown) date) unknown) (unknown) (no (unknown) (unknown) Neuro: Alert and (units (unknown) date) orientated x3, unknown) moves all extremities, sensation to touch (unknown) (no (unknown) (unknown) Neut # (Auto) (units ( unknown) date) 6800 unknown) (unknown) (no (unknown) (unknown) Neut # (Auto) (units ( unknown) date) unknown) (unknown) (no (unknown) (unknown) Neut % (Auto) (units ( unknown) date) 72.2 unknown) (unknown) (no (unknown) (unknown) Neut % (Auto) (units ( unknown) date) unknown) (unknown) (no (unknown) (unknown) Objective (units (unkn own) date) unknown) (unknown) (no (unknown) (unknown) Oxygen Delivery (units (unknown) date) Method Room Air unknown) (unknown) (no (unknown) (unknown) Oxygen Flow Rate (units (unknown) date) 0 unknown) (unknown) (no (unknown) (unknown) PFSH (units (unkno wn) date) unknown) (unknown) (no (unknown) (unknown) PT 13.5 H (units (unkn own) date) unknown) (unknown) (no (unknown) (unknown) PT (units (unkno wn) date) unknown) (unknown) (no (unknown) (unknown) Patient: (units (unkno wn) date) Duncan Rock unknown) MR#: [id number] (unknown) (no (unknown) (unknown) Plt Count 328 (units ( unknown) date) unknown) (unknown) (no (unknown) (unknown) Plt Count (units (unkn own) date) unknown) (unknown) (no (unknown) (unknown) Potassium 4.1 (units ( unknown) date) unknown) (unknown) (no (unknown) (unknown) Potassium 4.4 (units ( unknown) date) unknown) (unknown) (no (unknown) (unknown) Potassium (units (unkn own) date) unknown) (unknown) (no (unknown) (unknown) Progress Note (units ( unknown) date) unknown) (unknown) (no (unknown) (unknown) [place] (units (unk nown) date) [facility] for ?too unknown) bad valves and aortic aneurysm?.? After TX (unknown) (no (unknown) (unknown) Provider: (units (unkn own) date) Heraclio Mckeon unknown) D.O. (unknown) (no (unknown) (unknown) Proxy: Heraclio (units (unknown) date) [place] unknown) partner (unknown) (no (unknown) (unknown) Psych: Patient (units (unknown) date) has a well-kept unknown) appearance, appropriate affect, mental status (unknown) (no (unknown) (unknown) Pulse Oximetry 97 (units (unknown) date) 98 unknown) (unknown) (no (unknown) (unknown) Pulse Rate 45 L (units (unknown) date) 43 L unknown) (unknown) (no (unknown) (unknown) RBC 5.06 (units (unkno wn) date) unknown) (unknown) (no (unknown) (unknown) RBC (units (unkno wn) date) unknown) (unknown) (no (unknown) (unknown) RDW 15.0 H (units (unk nown) date) unknown) (unknown) (no (unknown) (unknown) RDW (units (unkno wn) date) unknown) (unknown) (no (unknown) (unknown) Respiratory Rate (units (unknown) date) 16 42 H unknown) (unknown) (no (unknown) (unknown) Restrictive lung (units (unknown) date) disease unknown) (unknown) (no (unknown) (unknown) SARS-CoV-2 (PCR) (units (unknown) date) Negative unknown) (unknown) (no (unknown) (unknown) SARS-CoV-2 (PCR) (units (unknown) date) unknown) (unknown) (no (unknown) (unknown) She is not on any (units (unknown) date) outpatient unknown) medications or inhalers. (unknown) (no (unknown) (unknown) Signed By: (units (unk nown) date) unknown) (unknown) (no (unknown) (unknown) Skin: Warm dry (units (unknown) date) and intact without unknown) rashes, ulcerations or petechiae. (unknown) (no (unknown) (unknown) Smoking Status: (units [...] wn) date) unknown) (unknown) (no (unknown) (unknown) Status post hip (units (unknown) date) surgery unknown) (unknown) (no (unknown) (unknown) Surgical History (units (unknown) date) (Reviewed 05/10/22 unknown) @ 02:25 by DAINA Parikh) (unknown) (no (unknown) (unknown) TSH 5.89 H (units (unk nown) date) unknown) (unknown) (no (unknown) (unknown) TSH (units (unkno wn) date) unknown) (unknown) (no (unknown) (unknown) Temperature 97.8 (units (unknown) date) F 97.6 F unknown) (unknown) (no (unknown) (unknown) Time Spent With (units (unknown) date) Patient unknown) (unknown) (no (unknown) (unknown) Total Bilirubin (units (unknown) date) 0.8 unknown) (unknown) (no (unknown) (unknown) Total Bilirubin (units (unknown) date) unknown) (unknown) (no (unknown) (unknown) Total Creatine (units (unknown) date) Kinase 44 unknown) (unknown) (no (unknown) (unknown) Total Creatine (units (unknown) date) Kinase unknown) (unknown) (no (unknown) (unknown) Total Protein 7.7 (units (unknown) date) unknown) (unknown) (no (unknown) (unknown) Total Protein (units ( unknown) date) unknown) (unknown) (no (unknown) (unknown) Troponin I 0.013 (units (unknown) date) 0.014 unknown) (unknown) (no (unknown) (unknown) Troponin I 0.018 (units (unknown) date) unknown) (unknown) (no (unknown) (unknown) Troponin I (units (unk nown) date) unknown) (unknown) (no (unknown) (unknown) Vital Signs (units (un known) date) unknown) (unknown) (no (unknown) (unknown) WBC 9.4 (units (unkno wn) date) unknown) (unknown) (no (unknown) (unknown) WBC (units (unkno wn) date) unknown) (unknown) (no (unknown) (unknown) [Embedded Image (units (unknown) date) Not Available] unknown) (unknown) (no (unknown) (unknown) alcohol intake: (units (unknown) date) current unknown) (unknown) (no (unknown) (unknown) and left hip (units (u nknown) date) fracture ORIF with unknown) ARF 03/24/2022??Follow ed by Cardiology at (unknown) (no (unknown) (unknown) angina/shortness (units (unknown) date) of breath,and unknown) bradycardia. Patient has sustained bradycardia (unknown) (no (unknown) (unknown) approximately 1 (units (unknown) date) week ago which was unknown) found Dr. Mckeon to have been completed on (unknown) (no (unknown) (unknown) are present in (units (unknown) date) all 4 quadrants unknown) without guarding or rebound, no CVA tenderness. (unknown) (no (unknown) (unknown) attitude thought (units (unknown) date) context and unknown) judgment are appropriate for age. (unknown) (no (unknown) (unknown) blood pressure (units (unknown) date) control. unknown) (unknown) (no (unknown) (unknown) bradycardia and (units (unknown) date) that she may need unknown) to be tapered back on her pain medications-a (unknown) (no (unknown) (unknown) bradycardia, (units (u nknown) date) exertional unknown) angina/dyspnea. Once bradycardia can be resolved the (unknown) (no (unknown) (unknown) call safety and health manager (units (unknown) date) recommended unknown) decreasing the metoprolol dose by half and adding (unknown) (no (unknown) (unknown) cardiac demand (units (unknown) date) ischemia. unknown) (unknown) (no (unknown) (unknown) catheterization (units (unknown) date) unknown) (unknown) (no (unknown) (unknown) chronic, present (units (unknown) date) on unknown) admission-patient is stable and in no distress (unknown) (no (unknown) (unknown) clear and mucous (units (unknown) date) membranes are unknown) moist. Neck is supple and symmetric, trachea is (unknown) (no (unknown) (unknown) continued in the (units (unknown) date) 40s throughout the unknown) night. Metoprolol (unknown) (no (unknown) (unknown) deformity, (units (unk nown) date) crepitus, unknown) effusions, cyanosis, clubbing or edema present. Full range (unknown) (no (unknown) (unknown) diagnostic (units (unk nown) date) imaging, and unknown) laboratory results. (unknown) (no (unknown) (unknown) discussion for (units (unknown) date) follow-up with unknown) Cardiology and PCP (unknown) (no (unknown) (unknown) documented and/or (units (unknown) date) surrogate decision unknown) maker is listed in the patient's medical (unknown) (no (unknown) (unknown) fibrosis, HTN, (units ( unknown) date) hypothyroid, unknown) fibromyalgia, ascending aortic aneurysm, depression, (unknown) (no (unknown) (unknown) follow-up (units ( unknown) date) [facility] unknown) for cardiac catheterization. (unknown) (no (unknown) (unknown) follow-up with (units (unknown) date) PCP unknown) (unknown) (no (unknown) (unknown) history of (units (unk nown) date) epilepsy, NSTEMI unknown) 03/07-pending cardiac follow-up/catheter ization, (unknown) (no (unknown) (unknown) household (units (unkn own) date) members: unknown) significant other (unknown) (no (unknown) (unknown) in ED and on (units (u nknown) date) floor in the 40s. unknown) Patient admitted for observation due to (unknown) (no (unknown) (unknown) intact, no gross (units (unknown) date) deficits noted of unknown) cranial nerves. (unknown) (no (unknown) (unknown) metoprolol 50 mg (units (unknown) date) b.i.d. initiated unknown) and complains of low energy with exertional (unknown) (no (unknown) (unknown) midline, no (units (un known) date) adenopathy, no unknown) thyroid enlargement, nontender, no masses palpated. (unknown) (no (unknown) (unknown) of motion intact (units (unknown) date) radial and pedal unknown) pulses are normal. (unknown) (no (unknown) (unknown) outpatient. (units (un known) date) -EMERGENT unknown) follow-up. (unknown) (no (unknown) (unknown) patient can be (units (unknown) date) seen emergently by unknown) Dr. Pérez cardiology at [facility] for cardiac (unknown) (no (unknown) (unknown) record. (units (unkno wn) date) unknown) (unknown) (no (unknown) (unknown) sleep. (units (unkno wn) date) unknown) (unknown) (no (unknown) (unknown) substance use (units ( unknown) date) type: does not use unknown) (unknown) (no (unknown) (unknown) the patient's (units ( unknown) date) current unknown) medications. (unknown) (no (unknown) (unknown) this time. (units (unk nown) date) unknown) (unknown) (no (unknown) (unknown) today; this time (units (unknown) date) is exclusive of unknown) procedural time. (unknown) (no (unknown) (unknown) wheezes, rhonchi, (units (unknown) date) or rales. unknown) Result panel 246 (unknown) (no (unknown) (unknown) (no value) (units (unk nown) date) unknown) (unknown) (no (unknown) (unknown) (past 8 hours): (units (unknown) date) unknown) (unknown) (no (unknown) (unknown) - TSH 5.89 (units (unk nown) date) unknown) (unknown) (no (unknown) (unknown) -03/23/2022 admit: (units (unknown) date) Troponin was unknown) 0.050, down trending to 0.041.? It likely to be (unknown) (no (unknown) (unknown) -EKG sinus Yves (units (unknown) date) rate of 44 LVH unknown) with repolarization abnormalities prolonged QTC (unknown) (no (unknown) (unknown) -[facility] (units (unkno wn) date) cardiology was unknown) consulted in the ED where patient is being followed on (unknown) (no (unknown) (unknown) -Ordered BNP, (units ( unknown) date) TSH/Free T4 unknown) (unknown) (no (unknown) (unknown) -Ordered TSH/T$ (units (unknown) date) unknown) (unknown) (no (unknown) (unknown) -PT 13.5 although (units (unknown) date) INR stable 1.2 PTT unknown) 50 (unknown) (no (unknown) (unknown) -Patient takes (units (unknown) date) fentanyl 75 mcg Q unknown) 72 hours.? Percocet q.4-6 hours (unknown) (no (unknown) (unknown) -Recommend (units (unk nown) date) reaching out to unknown) [facility] for fast tracking Cardiac cath as an (unknown) (no (unknown) (unknown) -change home dose (units (unknown) date) of 100 unknown) levothyroxine to 125mcg QD repeat tsh outpatient (unknown) (no (unknown) (unknown) -discussed with (units (unknown) date) patient my unknown) concerns regarding polypharmacy in relation to her (unknown) (no (unknown) (unknown) -echo 10/05 with (units (unknown) date) an EF 60 65%. unknown) (unknown) (no (unknown) (unknown) -initial troponin (units (unknown) date) 0.018 will trend unknown) x3 (unknown) (no (unknown) (unknown) -initially reduce (units (unknown) date) metoprolol to 25 unknown) b.i.d., but asked patient's heart rate (unknown) (no (unknown) (unknown) -initiated (units (unk nown) date) amlodipine 2.5 unknown) q.day (unknown) (no (unknown) (unknown) -managed by (units (unknown) date) [facility] unknown) Cardiology (unknown) (no (unknown) (unknown) -patient (units (unkno wn) date) verbalized that unknown) she had echo completed [facility] (unknown) (no (unknown) (unknown) 04/27/2021-will (units (unknown) date) not repeat echo. unknown) (unknown) (no (unknown) (unknown) 05/09/22 05/09/22 (units (unknown) date) 05/09/22 unknown) (unknown) (no (unknown) (unknown) 05/09/22 21:59 (units (unknown) date) unknown) (unknown) (no (unknown) (unknown) 05/10/22 05/10/22 (units (unknown) date) 05/10/22 unknown) (unknown) (no (unknown) (unknown) 05/10/22 01:56 (units (unknown) date) unknown) (unknown) (no (unknown) (unknown) 05/10/22 02:04 (units (unknown) date) unknown) (unknown) (no (unknown) (unknown) 05/10/22 02:38 (units (unknown) date) unknown) (unknown) (no (unknown) (unknown) 05/10/22 05:47 (units (unknown) date) unknown) (unknown) (no (unknown) (unknown) 05/10/22 (units (unkno wn) date) unknown) (unknown) (no (unknown) (unknown) [id number] (units (unkno wn) date) unknown) (unknown) (no (unknown) (unknown) 02:13 05:47 05:47 (units (unknown) date) unknown) (unknown) (no (unknown) (unknown) 08:00 05/10/22 (units (unknown) date) unknown) (unknown) (no (unknown) (unknown) 08:00 (units (unkno wn) date) unknown) (unknown) (no (unknown) (unknown) 1 tab PO DAILY (units (unknown) date) unknown) (unknown) (no (unknown) (unknown) 1 tab PO Q6H PRN (units (unknown) date) (Reason: Pain unknown) (Scale Score 4-6)) (unknown) (no (unknown) (unknown) 1. Bradycardia, (units (unknown) date) with exertional unknown) angina/dyspnea, acute, present on admission (unknown) (no (unknown) (unknown) 10 mg PO BEDTIME (units (unknown) date) unknown) (unknown) (no (unknown) (unknown) 100 mcg PO DAILY (units (unknown) date) unknown) (unknown) (no (unknown) (unknown) 100 mg PO DAILY (units (unknown) date) unknown) (unknown) (no (unknown) (unknown) 2 midnights once (units (unknown) date) bradycardia has unknown) been resolved, patient to emergent outpatient (unknown) (no (unknown) (unknown) 2. History of (units ( unknown) date) recent NSTEMI, unknown) requiring cardiac catheterization, acute on (unknown) (no (unknown) (unknown) 2.5 amlodipine, (units (unknown) date) and repeating unknown) echo, with urgent follow-up in their clinic. (unknown) (no (unknown) (unknown) 20 meq PO DAILY (units (unknown) date) unknown) (unknown) (no (unknown) (unknown) 20 mg PO DAILY (units (unknown) date) unknown) (unknown) (no (unknown) (unknown) 21:59 21:59 21:59 (units (unknown) date) unknown) (unknown) (no (unknown) (unknown) 22:04 22:04 22:05 (units (unknown) date) unknown) (unknown) (no (unknown) (unknown) 3. 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 unknown) (unknown) (no (unknown) (unknown) 5. 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 Depression, (units (unknown) date) chronic, present unknown) on admission (unknown) (no (unknown) (unknown) 60 mg PO DAILY (units (unknown) date) Qty: 0 unknown) (unknown) (no (unknown) (unknown) 75 mcg (units (unkno wn) date) transdermal 3XD unknown) (unknown) (no (unknown) (unknown) 8. (units (unkno wn) date) Hypothyroidism, unknown) acquired, chronic, present on admission (unknown) (no (unknown) (unknown) 81 mg PO DAILY (units (unknown) date) unknown) (unknown) (no (unknown) (unknown) ALT 17 (units (unkno wn) date) unknown) (unknown) (no (unknown) (unknown) ALT (units (unkno wn) date) unknown) (unknown) (no (unknown) (unknown) APTT 50 H (units (unkn own) date) unknown) (unknown) (no (unknown) (unknown) APTT (units (unkno wn) date) unknown) (unknown) (no (unknown) (unknown) AST 26 (units (unkno wn) date) unknown) (unknown) (no (unknown) (unknown) AST (units (unkno wn) date) unknown) (unknown) (no (unknown) (unknown) Abdomen: Soft (units ( unknown) date) nontender, unknown) negative for organomegaly, or masses. Bowel sounds (unknown) (no (unknown) (unknown) Admit vitals temp (units (unknown) date) 98?, 116/68, unknown) continued bradycardia HR 41, tachypneic RR 42, O2 (unknown) (no (unknown) (unknown) Age/Sex: 72 / F (units (unknown) date) unknown) (unknown) (no (unknown) (unknown) Albumin 4.4 (units (un known) date) unknown) (unknown) (no (unknown) (unknown) Albumin (units (unkno wn) date) unknown) (unknown) (no (unknown) (unknown) Albumin/Globulin (units (unknown) date) Ratio 1.3 unknown) (unknown) (no (unknown) (unknown) Albumin/Globulin (units (unknown) date) Ratio unknown) (unknown) (no (unknown) (unknown) Alkaline (units (unkno wn) date) Phosphatase 109 unknown) (unknown) (no (unknown) (unknown) Alkaline (units (unkno wn) date) Phosphatase unknown) (unknown) (no (unknown) (unknown) Attending (units (unkn own) date) Provider: unknown) May Sloan (unknown) (no (unknown) (unknown) BUN 27 H (units (unkno wn) date) unknown) (unknown) (no (unknown) (unknown) BUN (units (unkno wn) date) unknown) (unknown) (no (unknown) (unknown) BUN/Creatinine (units (unknown) date) Ratio 30.3 H unknown) (unknown) (no (unknown) (unknown) BUN/Creatinine (units (unknown) date) Ratio 31.0 H unknown) (unknown) (no (unknown) (unknown) BUN/Creatinine (units (unknown) date) Ratio unknown) (unknown) (no (unknown) (unknown) Baso # (Auto) 100 (units (unknown) date) unknown) (unknown) (no (unknown) (unknown) Baso # (Auto) (units ( unknown) date) unknown) (unknown) (no (unknown) (unknown) Baso % (Auto) 0.9 (units (unknown) date) unknown) (unknown) (no (unknown) (unknown) Baso % (Auto) (units ( unknown) date) unknown) (unknown) (no (unknown) (unknown) Blood Pressure (units (unknown) date) 123/53 L unknown) (unknown) (no (unknown) (unknown) CK-MB [...] nown) date) unknown) (unknown) (no (unknown) (unknown) COVID (units (unkno wn) date) PCR:Negative unknown) (unknown) (no (unknown) (unknown) Calcium 9.2 (units (un known) date) unknown) (unknown) (no (unknown) (unknown) Calcium 9.4 (units (un known) date) unknown) (unknown) (no (unknown) (unknown) Calcium (units (unkno wn) date) unknown) (unknown) (no (unknown) (unknown) Carbon Dioxide 27 (units (unknown) date) unknown) (unknown) (no (unknown) (unknown) Carbon Dioxide 28 (units (unknown) date) unknown) (unknown) (no (unknown) (unknown) Carbon Dioxide (units (unknown) date) unknown) (unknown) (no (unknown) (unknown) Cardio: (units (unkno wn) date) Bradycardic rate unknown) and rhythm (unknown) (no (unknown) (unknown) Chest: no nasal (units (unknown) date) flaring, unknown) retractions, or tachypneic labored breathing. (unknown) (no (unknown) (unknown) Chief complaint: (units (unknown) date) heart is unknown) fluctuating, uncontrolled temperature (unknown) (no (unknown) (unknown) Chloride 96 L (units ( unknown) date) unknown) (unknown) (no (unknown) (unknown) Chloride 97 L (units ( unknown) date) unknown) (unknown) (no (unknown) (unknown) Chloride (units (unkno wn) date) unknown) (unknown) (no (unknown) (unknown) Comment: Fatigue, (units (unknown) date) Hipfx-ORIF 04/06 unknown) (unknown) (no (unknown) (unknown) Comment: (units (unkno wn) date) unknown) (unknown) (no (unknown) (unknown) Consult to (units (unk nown) date) Occupational unknown) Therapy Evaluate + Treat (unknown) (no (unknown) (unknown) Consult to (units (unk nown) date) Physical Therapy unknown) Evaluate + Treat (unknown) (no (unknown) (unknown) Consult to Social (units (unknown) date) Services Routine unknown) (unknown) (no (unknown) (unknown) Consults: (units (unkn own) date) unknown) (unknown) (no (unknown) (unknown) Continue (units (unkno wn) date) outpatient dose of unknown) Lamictal.? She also uses diazepam at bedtime for (unknown) (no (unknown) (unknown) Continued (units (unkn own) date) unknown) (unknown) (no (unknown) (unknown) Creatinine 0.87 (units (unknown) date) unknown) (unknown) (no (unknown) (unknown) Creatinine 0.89 (units (unknown) date) unknown) (unknown) (no (unknown) (unknown) Creatinine (units (unk nown) date) unknown) (unknown) (no (unknown) (unknown) : 1950 (units (unknown) date) Acct:[id number] unknown) (unknown) (no (unknown) (unknown) DVT/VTE (units (unkno wn) date) prophylaxis: unknown) Lovenox and SCD (unknown) (no (unknown) (unknown) Date Patient (units (u nknown) date) Seen: 05/10/22 unknown) (unknown) (no (unknown) (unknown) Date of Service: (units (unknown) date) 05/10/22 unknown) (unknown) (no (unknown) (unknown) Date of (units (unkno wn) date) admission: unknown) (unknown) (no (unknown) (unknown) Discharge Data (units (unknown) date) unknown) (unknown) (no (unknown) (unknown) Discharge Date: (units (unknown) date) 05/10/22 unknown) (unknown) (no (unknown) (unknown) Discharge (units [...] date) provider: unknown) (unknown) (no (unknown) (unknown) Discontinued (units (u nknown) date) unknown) (unknown) (no (unknown) (unknown) Disposition: (units (u nknown) date) Patient admitted unknown) for observation expected length of stay less than (unknown) (no (unknown) (unknown) Eos # (Auto) 100 (units (unknown) date) unknown) (unknown) (no (unknown) (unknown) Eos # (Auto) (units (u nknown) date) unknown) (unknown) (no (unknown) (unknown) Eos % (Auto) 1.0 (units (unknown) date) L unknown) (unknown) (no (unknown) (unknown) Eos % (Auto) (units (u nknown) date) unknown) (unknown) (no (unknown) (unknown) Estimated GFR > (units (unknown) date) 60 unknown) (unknown) (no (unknown) (unknown) Estimated GFR (units ( unknown) date) unknown) (unknown) (no (unknown) (unknown) Carlos for ?too (units (unknown) date) bad valves and unknown) aortic aneurysm?.? After TX metoprolol 50 mg (unknown) (no (unknown) (unknown) Exam Narrative: (units (unknown) date) unknown) (unknown) (no (unknown) (unknown) Exam (units (unkno wn) date) unknown) (unknown) (no (unknown) (unknown) Family History (units (unknown) date) (Reviewed 05/10/22 unknown) @ 02:26 by MARGE Parikh) (unknown) (no (unknown) (unknown) Father No (units (unkn own) date) problems noted. unknown) (unknown) (no (unknown) (unknown) Fibromyalgia (units (u nknown) date) unknown) (unknown) (no (unknown) (unknown) Follow (units (unkno wn) date) up/Referrals: unknown) (unknown) (no (unknown) (unknown) Free T4 1.74 (units (u nknown) date) unknown) (unknown) (no (unknown) (unknown) Free T4 (units (unkno wn) date) unknown) (unknown) (no (unknown) (unknown) General: Patient (units (unknown) date) is a thin frail unknown) appearing elderly female in no distress at (unknown) (no (unknown) (unknown) Globulin 3.3 (units (u nknown) date) unknown) (unknown) (no (unknown) (unknown) Globulin (units (unkno wn) date) unknown) (unknown) (no (unknown) (unknown) Glucose 103 (units (un known) date) unknown) (unknown) (no (unknown) (unknown) Glucose 97 (units (unk nown) date) unknown) (unknown) (no (unknown) (unknown) Glucose (units (unkno wn) date) unknown) (unknown) (no (unknown) (unknown) HEENT: (units (unkno wn) date) Normocephalic, unknown) atraumatic, extraocular muscles intact, oral pharynx is (unknown) (no (unknown) (unknown) Hct 42.9 (units (unkno wn) date) unknown) (unknown) (no (unknown) (unknown) Hct (units (unkno wn) date) unknown) (unknown) (no (unknown) (unknown) Hgb 14.2 (units (unkno wn) date) unknown) (unknown) (no (unknown) (unknown) Hgb (units (unkno wn) date) unknown) (unknown) (no (unknown) (unknown) History of (units (unk nown) date) Present Illness unknown) (unknown) (no (unknown) (unknown) Hospital Course (units (unknown) date) unknown) (unknown) (no (unknown) (unknown) Hypertension (units (u nknown) date) unknown) (unknown) (no (unknown) (unknown) Hypothyroidism (units (unknown) date) unknown) (unknown) (no (unknown) (unknown) I confirmed that (units (unknown) date) the patient's unknown) advanced care plan is present, Code status is (unknown) (no (unknown) (unknown) I have personally (units (unknown) date) reviewed patient's unknown) chart notes from PCP, specialists, (unknown) (no (unknown) (unknown) I have utilized (units (unknown) date) all available unknown) immediate resources to obtain, update, or review (unknown) (no (unknown) (unknown) INR 1.2 (units (unkno wn) date) unknown) (unknown) (no (unknown) (unknown) INR (units (unkno wn) date) unknown) (unknown) (no (unknown) (unknown) Instructions: DI (units (unknown) date) for Bradycardia unknown) (unknown) (no (unknown) (unknown) [facility] (units (unknown) date) [address] unknown) [place] [address] (unknown) (no (unknown) (unknown) Laboratory (units (unk nown) date) Results - last 24 unknown) hr (unknown) (no (unknown) (unknown) Labs (units (unkno wn) date) unknown) (unknown) (no (unknown) (unknown) Labs: (units (unkno wn) date) unknown) (unknown) (no (unknown) (unknown) Duncan Rock is (units (unknown) date) a 72-year-old unknown) 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 (unknown) (no (unknown) (unknown) Lipase 152 (units (unk nown) date) unknown) (unknown) (no (unknown) (unknown) Lipase (units (unkno wn) date) unknown) (unknown) (no (unknown) (unknown) Lungs: (units (unkno wn) date) Auscultation of unknown) all lung barney are clear without adventitious sounds, (unknown) (no (unknown) (unknown) Darrell Cottrell, (units (unknown) date) [Primary Care unknown) Provider] - 05/24/22 2:30 pm (appt:05/24 @ 2:30 (unknown) (no (unknown) (unknown) Lymph # (Auto) (units (unknown) date) 1700 unknown) (unknown) (no (unknown) (unknown) Lymph # (Auto) (units (unknown) date) unknown) (unknown) (no (unknown) (unknown) Lymph % (Auto) (units (unknown) date) 18.2 L unknown) (unknown) (no (unknown) (unknown) Lymph % (Auto) (units (unknown) date) unknown) (unknown) (no (unknown) (unknown) MCH 28.0 (units (unkno wn) date) unknown) (unknown) (no (unknown) (unknown) MCH (units (unkno wn) date) unknown) (unknown) (no (unknown) (unknown) MCHC 33.0 (units (unkn own) date) unknown) (unknown) (no (unknown) (unknown) MCHC (units (unkno wn) date) unknown) (unknown) (no (unknown) (unknown) MCV 84.9 (units (unkno wn) date) unknown) (unknown) (no (unknown) (unknown) MCV (units (unkno wn) date) unknown) (unknown) (no (unknown) (unknown) Magnesium 1.9 (units ( unknown) date) unknown) (unknown) (no (unknown) (unknown) Magnesium (units (unkn own) date) unknown) (unknown) (no (unknown) (unknown) Heraclio Mckeon, (units (unknown) date) DO unknown) (unknown) (no (unknown) (unknown) Measuring 6.4 (units ( unknown) date) cm.? She will need unknown) close follow-up.? She is on metoprolol for (unknown) (no (unknown) (unknown) Medical History (units (unknown) date) (Reviewed 05/10/22 unknown) @ 02:25 by May Sloan [facility]) (unknown) (no (unknown) (unknown) Mobile # (Auto) 700 (units (unknown) date) unknown) (unknown) (no (unknown) (unknown) Mobile # (Auto) (units ( unknown) date) unknown) (unknown) (no (unknown) (unknown) Mobile % (Auto) 7.7 (units (unknown) date) unknown) (unknown) (no (unknown) (unknown) Mobile % (Auto) (units ( unknown) date) unknown) (unknown) (no (unknown) (unknown) Mother TIA (units (unk nown) date) (transient unknown) ischemic attack) (unknown) (no (unknown) (unknown) Musculoskeletal: (units (unknown) date) Muscle strength unknown) and tone are equal within normal limits, no (unknown) (no (unknown) (unknown) Myocardial (units (unk nown) date) infarction unknown) (unknown) (no (unknown) (unknown) NT-Pro-B (units (unkno wn) date) Natriuret Pep 6090 unknown) H (unknown) (no (unknown) (unknown) NT-Pro-B (units (unkno wn) date) Natriuret Pep unknown) (unknown) (no (unknown) (unknown) Narrative (units (unkn own) date) unknown) (unknown) (no (unknown) (unknown) Narrative: (units (unk nown) date) unknown) (unknown) (no (unknown) (unknown) Negative for JVD (units (unknown) date) unknown) (unknown) (no (unknown) (unknown) Neuro: Alert and (units (unknown) date) orientated x3, unknown) moves all extremities, sensation to touch (unknown) (no (unknown) (unknown) Neut # (Auto) (units ( unknown) date) 6800 unknown) (unknown) (no (unknown) (unknown) Neut # (Auto) (units ( unknown) date) unknown) (unknown) (no (unknown) (unknown) Neut % (Auto) (units ( unknown) date) 72.2 unknown) (unknown) (no (unknown) (unknown) Neut % (Auto) (units ( unknown) date) unknown) (unknown) (no (unknown) (unknown) Objective (units (unkn own) date) unknown) (unknown) (no (unknown) (unknown) On admit patient (units (unknown) date) denies chest pain unknown) + SOB at rest, headache, changes in vision, (unknown) (no (unknown) (unknown) Oxygen Delivery (units (unknown) date) Method Room Air unknown) (unknown) (no (unknown) (unknown) Oxygen Flow Rate (units (unknown) date) 0 unknown) (unknown) (no (unknown) (unknown) PFSH (units (unkno wn) date) unknown) (unknown) (no (unknown) (unknown) PT 13.5 H (units (unkn own) date) unknown) (unknown) (no (unknown) (unknown) PT (units (unkno wn) date) unknown) (unknown) (no (unknown) (unknown) Patient (units (unkno wn) date) Disposition: Home unknown) (unknown) (no (unknown) (unknown) Patient: (units (unkno wn) date) Duncan Rock unknown) MR#: [id number] (unknown) (no (unknown) (unknown) Physician (units (unkn own) date) Instructions: unknown) Evaluate and Treat (unknown) (no (unknown) (unknown) Physician (units (unkn own) date) Instructions: unknown) Evaluate and treat (unknown) (no (unknown) (unknown) Plt Count 328 (units ( unknown) date) unknown) (unknown) (no (unknown) (unknown) Plt Count (units (unkn own) date) unknown) (unknown) (no (unknown) (unknown) Potassium 4.1 (units ( unknown) date) unknown) (unknown) (no (unknown) (unknown) Potassium 4.4 (units ( unknown) date) unknown) (unknown) (no (unknown) (unknown) Potassium (units (unkn own) date) unknown) (unknown) (no (unknown) (unknown) Prescriptions: (units [...] Land unknown) partner (unknown) (no (unknown) (unknown) Psych: Patient (units (unknown) date) has a well-kept unknown) appearance, appropriate affect, mental status (unknown) (no (unknown) (unknown) Pulse Oximetry 98 (units (unknown) date) unknown) (unknown) (no (unknown) (unknown) Pulse Rate 43 L (units (unknown) date) unknown) (unknown) (no (unknown) (unknown) RBC 5.06 (units (unkno wn) date) unknown) (unknown) (no (unknown) (unknown) RBC (units (unkno wn) date) unknown) (unknown) (no (unknown) (unknown) RDW 15.0 H (units (unk nown) date) unknown) (unknown) (no (unknown) (unknown) RDW (units (unkno wn) date) unknown) (unknown) (no (unknown) (unknown) Respiratory Rate (units (unknown) date) 42 H unknown) (unknown) (no (unknown) (unknown) Restrictive lung (units (unknown) date) disease unknown) (unknown) (no (unknown) (unknown) Darrell Cottrell (units (unknown) date) unknown) (unknown) (no (unknown) (unknown) Rx Instructions: (units (unknown) date) unknown) (unknown) (no (unknown) (unknown) SARS-CoV-2 (PCR) (units (unknown) date) Negative unknown) (unknown) (no (unknown) (unknown) SARS-CoV-2 (PCR) (units (unknown) date) unknown) (unknown) (no (unknown) (unknown) She is not on any (units (unknown) date) outpatient unknown) medications or inhalers. (unknown) (no (unknown) (unknown) Signed By: (units (unk nown) date) unknown) (unknown) (no (unknown) (unknown) Skin: Warm dry (units (unknown) date) and intact without unknown) rashes, ulcerations or petechiae. (unknown) (no (unknown) (unknown) Smoking Status: (units [...] wn) date) unknown) (unknown) (no (unknown) (unknown) Stand Alone (units (un known) date) Forms: Patient unknown) Portal/API, Stroke Signs + Symptoms (unknown) (no (unknown) (unknown) Status post hip (units (unknown) date) surgery unknown) (unknown) (no (unknown) (unknown) Summary (units (unkno wn) date) unknown) (unknown) (no (unknown) (unknown) Surgical History (units (unknown) date) (Reviewed 05/10/22 unknown) @ 02:25 by DAINA Parikh) (unknown) (no (unknown) (unknown) TSH 5.89 H (units (unk nown) date) unknown) (unknown) (no (unknown) (unknown) TSH (units (unkno wn) date) unknown) (unknown) (no (unknown) (unknown) Takes 2 tablets (units (unknown) date) daily unknown) (unknown) (no (unknown) (unknown) Temperature 97.6 (units (unknown) date) F unknown) (unknown) (no (unknown) (unknown) Time Patient (units (u nknown) date) Seen: 02:13 unknown) (unknown) (no (unknown) (unknown) Time Spent with (units (unknown) date) Patient unknown) (unknown) (no (unknown) (unknown) Time spent: (units (un known) date) Greater than 30 unknown) minutes (unknown) (no (unknown) (unknown) Total Bilirubin (units (unknown) date) 0.8 unknown) (unknown) (no (unknown) (unknown) Total Bilirubin (units (unknown) date) unknown) (unknown) (no (unknown) (unknown) Total Creatine (units (unknown) date) Kinase 44 unknown) (unknown) (no (unknown) (unknown) Total Creatine (units (unknown) date) Kinase unknown) (unknown) (no (unknown) (unknown) Total Protein 7.7 (units (unknown) date) unknown) (unknown) (no (unknown) (unknown) Total Protein (units ( unknown) date) unknown) (unknown) (no (unknown) (unknown) Troponin I 0.013 (units (unknown) date) 0.014 unknown) (unknown) (no (unknown) (unknown) Troponin I 0.018 (units (unknown) date) unknown) (unknown) (no (unknown) (unknown) Troponin I (units (unk nown) date) unknown) (unknown) (no (unknown) (unknown) Visit (units (unkno wn) date) Report/Discharge unknown) Packet (unknown) (no (unknown) (unknown) Vital Signs (units (un known) date) unknown) (unknown) (no (unknown) (unknown) WBC 9.4 (units (unkno wn) date) unknown) (unknown) (no (unknown) (unknown) WBC (units (unkno wn) date) unknown) (unknown) (no (unknown) (unknown) [Embedded Image (units (unknown) date) Not Available] unknown) (unknown) (no (unknown) (unknown) abnormalities (units ( unknown) date) prolonged QTC 494 unknown) without ST or T-wave changes. Last echo 10/05 (unknown) (no (unknown) (unknown) alcohol intake: (units (unknown) date) current unknown) (unknown) (no (unknown) (unknown) angina/dyspnea. (units (unknown) date) Once bradycardia unknown) can be resolved the patient can be seen (unknown) (no (unknown) (unknown) approximately 1 (units (unknown) date) week ago which was unknown) found Dr. Mckeon to have been completed on (unknown) (no (unknown) (unknown) are present in (units (unknown) date) all 4 quadrants unknown) without guarding or rebound, no CVA tenderness. (unknown) (no (unknown) (unknown) aspirin 81 mg (units ( unknown) date) Tablet,Delayed unknown) Release (Dr/Ec) (unknown) (no (unknown) (unknown) attitude thought (units (unknown) date) context and unknown) judgment are appropriate for age. (unknown) (no (unknown) (unknown) b.i.d. and (units (unk nown) date) complains of low unknown) energy with exertional angina/shortness of breath (unknown) (no (unknown) (unknown) b.i.d. initiated (units (unknown) date) and complains of unknown) low energy with exertional angina/shortness of (unknown) (no (unknown) (unknown) blood pressure (units (unknown) date) control. unknown) (unknown) (no (unknown) (unknown) bradycardia and (units (unknown) date) that she may need unknown) to be tapered back on her pain medications-a (unknown) (no (unknown) (unknown) breath,and (units (unk nown) date) bradycardia. unknown) Patient has sustained bradycardia in ED and on floor in (unknown) (no (unknown) (unknown) call safety and health manager (units (unknown) date) recommended unknown) decreasing the metoprolol dose by half and adding (unknown) (no (unknown) (unknown) cardiac demand (units (unknown) date) ischemia. unknown) (unknown) (no (unknown) (unknown) changes, (units (unkno wn) date) constipation, unknown) incontinence, melena, rashes, recent illness with the (unknown) (no (unknown) (unknown) chills, cough, (units (unknown) date) recent exposure to unknown) illness, abdominal pain, nausea, vomiting, (unknown) (no (unknown) (unknown) cholecalciferol (units (unknown) date) (vitamin D3) 50 unknown) mcg (2,000 unit) Tablet (unknown) (no (unknown) (unknown) chronic, present (units (unknown) date) on unknown) admission-patient is stable and in no distress (unknown) (no (unknown) (unknown) clear and mucous (units (unknown) date) membranes are unknown) moist. Neck is supple and symmetric, trachea is (unknown) (no (unknown) (unknown) clearance 42, PT (units (unknown) date) 13.5 although INR unknown) stable 1.2 PTT 50, troponin 0.018, COVID is (unknown) (no (unknown) (unknown) continued in the (units (unknown) date) 40s throughout the unknown) night. Metoprolol (unknown) (no (unknown) (unknown) decreasing the (units (unknown) date) metoprolol dose by unknown) half and adding 2.5 amlodipine, and repeating (unknown) (no (unknown) (unknown) deformity, (units (unk nown) date) crepitus, unknown) effusions, cyanosis, clubbing or edema present. Full range (unknown) (no (unknown) (unknown) diagnostic (units (unk nown) date) imaging, and unknown) laboratory results. (unknown) (no (unknown) (unknown) diazepam [Valium] (units (unknown) date) 10 mg Tablet unknown) (unknown) (no (unknown) (unknown) difficulty (units (unk nown) date) swallowing, speech unknown) impairment, weakness, numbness, tingling, (unknown) (no (unknown) (unknown) difficulty with (units (unknown) date) ambulation, recent unknown) falls, head injury, LOC, fever, body aches, (unknown) (no (unknown) (unknown) discussion for (units (unknown) date) follow-up with unknown) Cardiology and PCP (unknown) (no (unknown) (unknown) documented and/or (units (unknown) date) surrogate decision unknown) maker is listed in the patient's medical (unknown) (no (unknown) (unknown) dramatically (units (u nknown) date) decreasing her unknown) activity level. Her cardiology office today advised (unknown) (no (unknown) (unknown) due to (units (unkno wn) date) bradycardia, unknown) exertional angina/dyspnea. (unknown) (no (unknown) (unknown) echo, with urgent (units (unknown) date) follow-up in their unknown) clinic. Patient admitted for observation (unknown) (no (unknown) (unknown) emergently by (units (unknown) date) [facility] unknown) at [facility] for cardiac catheterization (unknown) (no (unknown) (unknown) epilepsy, NSTEMI (units (unknown) date) 03/07-pending unknown) cardiac follow-up/catheter ization, and left hip (unknown) (no (unknown) (unknown) exception of (units (u nknown) date) those noted unknown) above.. (unknown) (no (unknown) (unknown) fatigue. (units (unkno wn) date) unknown) (unknown) (no (unknown) (unknown) fentanyl 75 (units (un known) date) mcg/hr patch 72 unknown) hour (unknown) (no (unknown) (unknown) fibrosis, HTN, (units ( unknown) date) hypothyroid, unknown) fibromyalgia, ascending aortic aneurysm, depression, (unknown) (no (unknown) (unknown) fibrosis, HTN, (units (unknown) date) hypothyroid, unknown) fibromyalgia, chronic pain medication, meth use or (unknown) (no (unknown) (unknown) fluoxetine (units (unk nown) date) [Prozac] 40 MG unknown) capsule (unknown) (no (unknown) (unknown) follow-up Dr. (units ( unknown) date) [facility] unknown) for cardiac catheterization. (unknown) (no (unknown) (unknown) follow-up with (units (unknown) date) PCP unknown) (unknown) (no (unknown) (unknown) for ?too bad (units (u nknown) date) valves and aortic unknown) aneurysm?.? After TX with metoprolol 50 mg (unknown) (no (unknown) (unknown) fracture ORIF (units ( unknown) date) with ARF unknown) 03/24/2022??Follow ed by Cardiology at [facility] (unknown) (no (unknown) (unknown) furosemide 20 mg (units (unknown) date) Tablet unknown) (unknown) (no (unknown) (unknown) history of (units (unkn own) date) epilepsy, NSTEMI unknown) 03/07-pending cardiac follow-up/catheter ization, and (unknown) (no (unknown) (unknown) household (units (unkn own) date) members: unknown) significant other (unknown) (no (unknown) (unknown) hx , regular ETOH (units (unknown) date) use, ascending unknown) aortic aneurysm, depression, history of (unknown) (no (unknown) (unknown) in the ED where (units (unknown) date) patient is being unknown) followed on-call safety and health manager recommended (unknown) (no (unknown) (unknown) intact, no gross (units (unknown) date) deficits noted of unknown) cranial nerves. (unknown) (no (unknown) (unknown) lamotrigine (units (un known) date) [Lamictal] 100 mg unknown) Tablet (unknown) (no (unknown) (unknown) left hip fracture (units (unknown) date) ORIF with ARF unknown) 03/24/2022??Follow ed by Cardiology at [facility] (unknown) (no (unknown) (unknown) levothyroxine 100 (units (unknown) date) mcg Capsule unknown) (unknown) (no (unknown) (unknown) metoprolol (units (unk nown) date) tartrate 50 mg unknown) Tablet (unknown) (no (unknown) (unknown) midline, no (units (un known) date) adenopathy, no unknown) thyroid enlargement, nontender, no masses palpated. (unknown) (no (unknown) (unknown) negative. (units (unkn own) date) Patient's EKG unknown) sinus Yves rate of 44 LVH with repolarization (unknown) (no (unknown) (unknown) of motion intact (units (unknown) date) radial and pedal unknown) pulses are normal. (unknown) (no (unknown) (unknown) orthopnea, lower (units (unknown) date) extremity edema, unknown) headaches but overall general malaise and (unknown) (no (unknown) (unknown) outpatient. (units (un known) date) -EMERGENT unknown) follow-up. (unknown) (no (unknown) (unknown) over last 24 (units (u nknown) date) hours chills and unknown) significantly increased fatigue which has been (unknown) (no (unknown) (unknown) oxycodone-acetami (units (unknown) date) nophen [Percocet] unknown) 5-325 mg Tablet (unknown) (no (unknown) (unknown) potassium (units (unkn own) date) chloride 20 mEq unknown) Tablet Extended Release (unknown) (no (unknown) (unknown) record. (units (unkno wn) date) unknown) (unknown) (no (unknown) (unknown) saturation 97% on (units (unknown) date) room air. CBC unknown) unremarkable, chloride 97, BUN 27, creatinine (unknown) (no (unknown) (unknown) she come in for (units (unknown) date) further unknown) evaluation.? She reports no overt fevers, cough, (unknown) (no (unknown) (unknown) sleep. (units (unkno wn) date) unknown) (unknown) (no (unknown) (unknown) substance use (units ( unknown) date) type: does not use unknown) (unknown) (no (unknown) (unknown) that resolves (units ( unknown) date) with nitroglycerin unknown) occurring more frequently, slow heart beat and (unknown) (no (unknown) (unknown) the 40s. Patient (units (unknown) date) admitted for unknown) observation due to bradycardia, exertional (unknown) (no (unknown) (unknown) the patient's (units ( unknown) date) current unknown) medications. (unknown) (no (unknown) (unknown) this time. (units (unk nown) date) unknown) (unknown) (no (unknown) (unknown) thoracic aorta (units (unknown) date) redemonstrated, unknown) enlarged heart. [facility] was consulted (unknown) (no (unknown) (unknown) urinary (units (unkno wn) date) incontinence/reten unknown) tion, dysuria, frequency, urgency, hematuria, bowel (unknown) (no (unknown) (unknown) vitamin B complex (units (unknown) date) Tablet unknown) (unknown) (no (unknown) (unknown) wheezes, rhonchi, (units (unknown) date) or rales. unknown) (unknown) (no (unknown) (unknown) with Dr Martinez (units (unknown) date) (Dr Cottrell is unknown) out of town) ) (unknown) (no (unknown) (unknown) with an EF 60 (units ( unknown) date) 65%. Chest x-ray unknown) demonstrated aneurysmal dilation ascending Result panel 247 (unknown) (no (unknown) (unknown) (no value) (units (unk nown) date) unknown) (unknown) (no (unknown) (unknown) (past 8 hours): (units (unknown) date) unknown) (unknown) (no (unknown) (unknown) - TSH 5.89 (units (unk nown) date) unknown) (unknown) (no (unknown) (unknown) -03/23/2022 admit: (units (unknown) date) Troponin was unknown) 0.050, down trending to 0.041.? It likely to be (unknown) (no (unknown) (unknown) -EKG sinus Yves (units (unknown) date) rate of 44 LVH unknown) with repolarization abnormalities prolonged QTC (unknown) (no (unknown) (unknown) -[facility] (units (unkno wn) date) cardiology was unknown) consulted in the ED where patient is being followed on (unknown) (no (unknown) (unknown) -Ordered BNP, (units ( unknown) date) TSH/Free T4 unknown) (unknown) (no (unknown) (unknown) -Ordered TSH/T$ (units (unknown) date) unknown) (unknown) (no (unknown) (unknown) -PT 13.5 although (units (unknown) date) INR stable 1.2 PTT unknown) 50 (unknown) (no (unknown) (unknown) -Patient takes (units (unknown) date) fentanyl 75 mcg Q unknown) 72 hours.? Percocet q.4-6 hours (unknown) (no (unknown) (unknown) -Recommend (units (unk nown) date) reaching out to Dr unknown) Beto for fast tracking Cardiac cath as an (unknown) (no (unknown) (unknown) -change home dose (units (unknown) date) of 100 unknown) levothyroxine to 125mcg QD repeat tsh outpatient (unknown) (no (unknown) (unknown) -discussed with (units (unknown) date) patient my unknown) concerns regarding polypharmacy in relation to her (unknown) (no (unknown) (unknown) -echo 10/05 with (units (unknown) date) an EF 60 65%. unknown) (unknown) (no (unknown) (unknown) -initial troponin (units (unknown) date) 0.018 will trend unknown) x3 (unknown) (no (unknown) (unknown) -initially reduce (units (unknown) date) metoprolol to 25 unknown) b.i.d., but asked patient's heart rate (unknown) (no (unknown) (unknown) -initiated (units (unk nown) date) amlodipine 2.5 unknown) q.day (unknown) (no (unknown) (unknown) -managed by (units (unknown) date) Beto Delvalle unknown) Cardiology (unknown) (no (unknown) (unknown) -patient (units (unkno wn) date) verbalized that unknown) she had echo completed by Dr. P[facility]rez at [facility] (unknown) (no (unknown) (unknown) 04/27/2021-will (units (unknown) date) not repeat echo. unknown) (unknown) (no (unknown) (unknown) 05/09/22 05/09/22 (units (unknown) date) 05/09/22 unknown) (unknown) (no (unknown) (unknown) 05/09/22 21:59 (units (unknown) date) unknown) (unknown) (no (unknown) (unknown) 05/10/22 05/10/22 (units (unknown) date) 05/10/22 unknown) (unknown) (no (unknown) (unknown) 05/10/22 01:56 (units (unknown) date) unknown) (unknown) (no (unknown) (unknown) 05/10/22 02:04 (units (unknown) date) unknown) (unknown) (no (unknown) (unknown) 05/10/22 02:38 (units (unknown) date) unknown) (unknown) (no (unknown) (unknown) 05/10/22 05:47 (units (unknown) date) unknown) (unknown) (no (unknown) (unknown) 05/10/22 (units (unkno wn) date) unknown) (unknown) (no (unknown) (unknown) [id number] (units (unkno wn) date) unknown) (unknown) (no (unknown) (unknown) 02:13 05:47 05:47 (units (unknown) date) unknown) (unknown) (no (unknown) (unknown) 08:00 05/10/22 (units (unknown) date) unknown) (unknown) (no (unknown) (unknown) 08:00 (units (unkno wn) date) unknown) (unknown) (no (unknown) (unknown) 1 tab PO DAILY (units (unknown) date) unknown) (unknown) (no (unknown) (unknown) 1 tab PO Q6H PRN (units (unknown) date) (Reason: Pain unknown) (Scale Score 4-6)) (unknown) (no (unknown) (unknown) 1. Bradycardia, (units (unknown) date) with exertional unknown) angina/dyspnea, acute, present on admission (unknown) (no (unknown) (unknown) 10 mg PO BEDTIME (units (unknown) date) unknown) (unknown) (no (unknown) (unknown) 100 mcg PO DAILY (units (unknown) date) unknown) (unknown) (no (unknown) (unknown) 100 mg PO DAILY (units (unknown) date) unknown) (unknown) (no (unknown) (unknown) 2 midnights once (units (unknown) date) bradycardia has unknown) been resolved, patient to emergent outpatient (unknown) (no (unknown) (unknown) 2. History of (units ( unknown) date) recent NSTEMI, unknown) requiring cardiac catheterization, acute on (unknown) (no (unknown) (unknown) 2.5 amlodipine, (units (unknown) date) and repeating unknown) echo, with urgent follow-up in their clinic. (unknown) (no (unknown) (unknown) 20 meq PO DAILY (units (unknown) date) unknown) (unknown) (no (unknown) (unknown) 20 mg PO DAILY (units (unknown) date) unknown) (unknown) (no (unknown) (unknown) 21:59 21:59 21:59 (units (unknown) date) unknown) (unknown) (no (unknown) (unknown) 22:04 22:04 22:05 (units (unknown) date) unknown) (unknown) (no (unknown) (unknown) 3. 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 unknown) (unknown) (no (unknown) (unknown) 5. 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 Depression, (units (unknown) date) chronic, present unknown) on admission (unknown) (no (unknown) (unknown) 60 mg PO DAILY (units (unknown) date) Qty: 0 unknown) (unknown) (no (unknown) (unknown) 75 mcg (units (unkno wn) date) transdermal Q72H unknown) (unknown) (no (unknown) (unknown) 8. (units (unkno wn) date) Hypothyroidism, unknown) acquired, chronic, present on admission (unknown) (no (unknown) (unknown) 81 mg PO DAILY (units (unknown) date) unknown) (unknown) (no (unknown) (unknown) ALT 17 (units (unkno wn) date) unknown) (unknown) (no (unknown) (unknown) ALT (units (unkno wn) date) unknown) (unknown) (no (unknown) (unknown) APTT 50 H (units (unkn own) date) unknown) (unknown) (no (unknown) (unknown) APTT (units (unkno wn) date) unknown) (unknown) (no (unknown) (unknown) AST 26 (units (unkno wn) date) unknown) (unknown) (no (unknown) (unknown) AST (units (unkno wn) date) unknown) (unknown) (no (unknown) (unknown) Abdomen: Soft (units ( unknown) date) nontender, unknown) negative for organomegaly, or masses. Bowel sounds (unknown) (no (unknown) (unknown) Admit vitals temp (units (unknown) date) 98?, 116/68, unknown) continued bradycardia HR 41, tachypneic RR 42, O2 (unknown) (no (unknown) (unknown) Age/Sex: 72 / F (units (unknown) date) unknown) (unknown) (no (unknown) (unknown) Albumin 4.4 (units (un known) date) unknown) (unknown) (no (unknown) (unknown) Albumin (units (unkno wn) date) unknown) (unknown) (no (unknown) (unknown) Albumin/Globulin (units (unknown) date) Ratio 1.3 unknown) (unknown) (no (unknown) (unknown) Albumin/Globulin (units (unknown) date) Ratio unknown) (unknown) (no (unknown) (unknown) Alkaline (units (unkno wn) date) Phosphatase 109 unknown) (unknown) (no (unknown) (unknown) Alkaline (units (unkno wn) date) Phosphatase unknown) (unknown) (no (unknown) (unknown) Attending (units (unkn own) date) Provider: unknown) May Sloan (unknown) (no (unknown) (unknown) BUN 27 H (units (unkno wn) date) unknown) (unknown) (no (unknown) (unknown) BUN (units (unkno wn) date) unknown) (unknown) (no (unknown) (unknown) BUN/Creatinine (units (unknown) date) Ratio 30.3 H unknown) (unknown) (no (unknown) (unknown) BUN/Creatinine (units (unknown) date) Ratio 31.0 H unknown) (unknown) (no (unknown) (unknown) BUN/Creatinine (units (unknown) date) Ratio unknown) (unknown) (no (unknown) (unknown) Baso # (Auto) 100 (units (unknown) date) unknown) (unknown) (no (unknown) (unknown) Baso # (Auto) (units ( unknown) date) unknown) (unknown) (no (unknown) (unknown) Baso % (Auto) 0.9 (units (unknown) date) unknown) (unknown) (no (unknown) (unknown) Baso % (Auto) (units ( unknown) date) unknown) (unknown) (no (unknown) (unknown) Blood Pressure (units (unknown) date) 123/53 L unknown) (unknown) (no (unknown) (unknown) CK-MB [...] nown) date) unknown) (unknown) (no (unknown) (unknown) COVID (units (unkno wn) date) PCR:Negative unknown) (unknown) (no (unknown) (unknown) Calcium 9.2 (units (un known) date) unknown) (unknown) (no (unknown) (unknown) Calcium 9.4 (units (un known) date) unknown) (unknown) (no (unknown) (unknown) Calcium (units (unkno wn) date) unknown) (unknown) (no (unknown) (unknown) Carbon Dioxide 27 (units (unknown) date) unknown) (unknown) (no (unknown) (unknown) Carbon Dioxide 28 (units (unknown) date) unknown) (unknown) (no (unknown) (unknown) Carbon Dioxide (units (unknown) date) unknown) (unknown) (no (unknown) (unknown) Cardio: (units (unkno wn) date) Bradycardic rate unknown) and rhythm (unknown) (no (unknown) (unknown) Chest: no nasal (units (unknown) date) flaring, unknown) retractions, or tachypneic labored breathing. (unknown) (no (unknown) (unknown) Chief complaint: (units (unknown) date) heart is unknown) fluctuating, uncontrolled temperature (unknown) (no (unknown) (unknown) Chloride 96 L (units ( unknown) date) unknown) (unknown) (no (unknown) (unknown) Chloride 97 L (units ( unknown) date) unknown) (unknown) (no (unknown) (unknown) Chloride (units (unkno wn) date) unknown) (unknown) (no (unknown) (unknown) Comment: Fatigue, (units (unknown) date) Hipfx-ORIF 04/06 unknown) (unknown) (no (unknown) (unknown) Comment: (units (unkno wn) date) unknown) (unknown) (no (unknown) (unknown) Consult to (units (unk nown) date) Occupational unknown) Therapy Evaluate + Treat (unknown) (no (unknown) (unknown) Consult to (units (unk nown) date) Physical Therapy unknown) Evaluate + Treat (unknown) (no (unknown) (unknown) Consult to Social (units (unknown) date) Services Routine unknown) (unknown) (no (unknown) (unknown) Consults: (units (unkn own) date) unknown) (unknown) (no (unknown) (unknown) Continue (units (unkno wn) date) outpatient dose of unknown) Lamictal.? She also uses diazepam at bedtime for (unknown) (no (unknown) (unknown) Continued (units (unkn own) date) unknown) (unknown) (no (unknown) (unknown) Creatinine 0.87 (units (unknown) date) unknown) (unknown) (no (unknown) (unknown) Creatinine 0.89 (units (unknown) date) unknown) (unknown) (no (unknown) (unknown) Creatinine (units (unk nown) date) unknown) (unknown) (no (unknown) (unknown) : 1950 (units (unknown) date) Acct:[id number] unknown) (unknown) (no (unknown) (unknown) DVT/VTE (units (unkno wn) date) prophylaxis: unknown) Lovenox and SCD (unknown) (no (unknown) (unknown) Date Patient (units (u nknown) date) Seen: 05/10/22 unknown) (unknown) (no (unknown) (unknown) Date of Service: (units (unknown) date) 05/10/22 unknown) (unknown) (no (unknown) (unknown) Date of (units (unkno wn) date) admission: unknown) (unknown) (no (unknown) (unknown) Discharge Data (units (unknown) date) unknown) (unknown) (no (unknown) (unknown) Discharge Date: (units (unknown) date) 05/10/22 unknown) (unknown) (no (unknown) (unknown) Discharge (units [...] date) provider: unknown) (unknown) (no (unknown) (unknown) Discontinued (units (u nknown) date) unknown) (unknown) (no (unknown) (unknown) Disposition: (units (u nknown) date) Patient admitted unknown) for observation expected length of stay less than (unknown) (no (unknown) (unknown) Eos # (Auto) 100 (units (unknown) date) unknown) (unknown) (no (unknown) (unknown) Eos # (Auto) (units (u nknown) date) unknown) (unknown) (no (unknown) (unknown) Eos % (Auto) 1.0 (units (unknown) date) L unknown) (unknown) (no (unknown) (unknown) Eos % (Auto) (units (u nknown) date) unknown) (unknown) (no (unknown) (unknown) Estimated GFR > (units (unknown) date) 60 unknown) (unknown) (no (unknown) (unknown) Estimated GFR (units ( unknown) date) unknown) (unknown) (no (unknown) (unknown) [facility] for ?too (units (unknown) date) bad valves and unknown) aortic aneurysm?.? After TX metoprolol 50 mg (unknown) (no (unknown) (unknown) Exam Narrative: (units (unknown) date) unknown) (unknown) (no (unknown) (unknown) Exam (units (unkno wn) date) unknown) (unknown) (no (unknown) (unknown) Family History (units (unknown) date) (Reviewed 05/10/22 unknown) @ 02:26 by May Sloan [facility]) (unknown) (no (unknown) (unknown) Father No (units (unkn own) date) problems noted. unknown) (unknown) (no (unknown) (unknown) Fibromyalgia (units (u nknown) date) unknown) (unknown) (no (unknown) (unknown) Follow (units (unkno wn) date) up/Referrals: unknown) (unknown) (no (unknown) (unknown) Free T4 1.74 (units (u nknown) date) unknown) (unknown) (no (unknown) (unknown) Free T4 (units (unkno wn) date) unknown) (unknown) (no (unknown) (unknown) General: Patient (units (unknown) date) is a thin frail unknown) appearing elderly female in no distress at (unknown) (no (unknown) (unknown) Globulin 3.3 (units (u nknown) date) unknown) (unknown) (no (unknown) (unknown) Globulin (units (unkno wn) date) unknown) (unknown) (no (unknown) (unknown) Glucose 103 (units (un known) date) unknown) (unknown) (no (unknown) (unknown) Glucose 97 (units (unk nown) date) unknown) (unknown) (no (unknown) (unknown) Glucose (units (unkno wn) date) unknown) (unknown) (no (unknown) (unknown) HEENT: (units (unkno wn) date) Normocephalic, unknown) atraumatic, extraocular muscles intact, oral pharynx is (unknown) (no (unknown) (unknown) Hct 42.9 (units (unkno wn) date) unknown) (unknown) (no (unknown) (unknown) Hct (units (unkno wn) date) unknown) (unknown) (no (unknown) (unknown) Hgb 14.2 (units (unkno wn) date) unknown) (unknown) (no (unknown) (unknown) Hgb (units (unkno wn) date) unknown) (unknown) (no (unknown) (unknown) History of (units (unk nown) date) Present Illness unknown) (unknown) (no (unknown) (unknown) Hospital Course (units (unknown) date) unknown) (unknown) (no (unknown) (unknown) Hypertension (units (u nknown) date) unknown) (unknown) (no (unknown) (unknown) Hypothyroidism (units (unknown) date) unknown) (unknown) (no (unknown) (unknown) I confirmed that (units (unknown) date) the patient's unknown) advanced care plan is present, Code status is (unknown) (no (unknown) (unknown) I have personally (units (unknown) date) reviewed patient's unknown) chart notes from PCP, specialists, (unknown) (no (unknown) (unknown) I have utilized (units (unknown) date) all available unknown) immediate resources to obtain, update, or review (unknown) (no (unknown) (unknown) INR 1.2 (units (unkno wn) date) unknown) (unknown) (no (unknown) (unknown) INR (units (unkno wn) date) unknown) (unknown) (no (unknown) (unknown) Instructions: DI (units (unknown) date) for Bradycardia unknown) (unknown) (no (unknown) (unknown) [facility] (units (unknown) date) [address] unknown) [place] [address] (unknown) (no (unknown) (unknown) Laboratory (units (unk nown) date) Results - last 24 unknown) hr (unknown) (no (unknown) (unknown) Labs (units (unkno wn) date) unknown) (unknown) (no (unknown) (unknown) Labs: (units (unkno wn) date) unknown) (unknown) (no (unknown) (unknown) Duncan Rock is (units (unknown) date) a 72-year-old unknown) 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 (unknown) (no (unknown) (unknown) Lipase 152 (units (unk nown) date) unknown) (unknown) (no (unknown) (unknown) Lipase (units (unkno wn) date) unknown) (unknown) (no (unknown) (unknown) Lungs: (units (unkno wn) date) Auscultation of unknown) all lung barney are clear without adventitious sounds, (unknown) (no (unknown) (unknown) Darrell Cottrell, (units (unknown) date) [Primary Care unknown) Provider] - 05/24/22 2:30 pm (appt:05/24 @ 2:30 (unknown) (no (unknown) (unknown) Lymph # (Auto) (units (unknown) date) 1700 unknown) (unknown) (no (unknown) (unknown) Lymph # (Auto) (units (unknown) date) unknown) (unknown) (no (unknown) (unknown) Lymph % (Auto) (units (unknown) date) 18.2 L unknown) (unknown) (no (unknown) (unknown) Lymph % (Auto) (units (unknown) date) unknown) (unknown) (no (unknown) (unknown) MCH 28.0 (units (unkno wn) date) unknown) (unknown) (no (unknown) (unknown) MCH (units (unkno wn) date) unknown) (unknown) (no (unknown) (unknown) MCHC 33.0 (units (unkn own) date) unknown) (unknown) (no (unknown) (unknown) MCHC (units (unkno wn) date) unknown) (unknown) (no (unknown) (unknown) MCV 84.9 (units (unkno wn) date) unknown) (unknown) (no (unknown) (unknown) MCV (units (unkno wn) date) unknown) (unknown) (no (unknown) (unknown) Magnesium 1.9 (units ( unknown) date) unknown) (unknown) (no (unknown) (unknown) Magnesium (units (unkn own) date) unknown) (unknown) (no (unknown) (unknown) Heraclio Mckeon, (units (unknown) date) DO unknown) (unknown) (no (unknown) (unknown) Measuring 6.4 (units ( unknown) date) cm.? She will need unknown) close follow-up.? She is on metoprolol for (unknown) (no (unknown) (unknown) Medical History (units (unknown) date) (Reviewed 05/10/22 unknown) @ 02:25 by May Sloan, [employer]ENTICE-BC) (unknown) (no (unknown) (unknown) Mobile # (Auto) 700 (units (unknown) date) unknown) (unknown) (no (unknown) (unknown) Mobile # (Auto) (units ( unknown) date) unknown) (unknown) (no (unknown) (unknown) Mobile % (Auto) 7.7 (units (unknown) date) unknown) (unknown) (no (unknown) (unknown) Mobile % (Auto) (units ( unknown) date) unknown) (unknown) (no (unknown) (unknown) Mother TIA (units (unk nown) date) (transient unknown) ischemic attack) (unknown) (no (unknown) (unknown) Musculoskeletal: (units (unknown) date) Muscle strength unknown) and tone are equal within normal limits, no (unknown) (no (unknown) (unknown) Myocardial (units (unk nown) date) infarction unknown) (unknown) (no (unknown) (unknown) NT-Pro-B (units (unkno wn) date) Natriuret Pep 6090 unknown) H (unknown) (no (unknown) (unknown) NT-Pro-B (units (unkno wn) date) Natriuret Pep unknown) (unknown) (no (unknown) (unknown) Narrative (units (unkn own) date) unknown) (unknown) (no (unknown) (unknown) Narrative: (units (unk nown) date) unknown) (unknown) (no (unknown) (unknown) Negative for JVD (units (unknown) date) unknown) (unknown) (no (unknown) (unknown) Neuro: Alert and (units (unknown) date) orientated x3, unknown) moves all extremities, sensation to touch (unknown) (no (unknown) (unknown) Neut # (Auto) (units ( unknown) date) 6800 unknown) (unknown) (no (unknown) (unknown) Neut # (Auto) (units ( unknown) date) unknown) (unknown) (no (unknown) (unknown) Neut % (Auto) (units ( unknown) date) 72.2 unknown) (unknown) (no (unknown) (unknown) Neut % (Auto) (units ( unknown) date) unknown) (unknown) (no (unknown) (unknown) Objective (units (unkn own) date) unknown) (unknown) (no (unknown) (unknown) On admit patient (units (unknown) date) denies chest pain unknown) + SOB at rest, headache, changes in vision, (unknown) (no (unknown) (unknown) Oxygen Delivery (units (unknown) date) Method Room Air unknown) (unknown) (no (unknown) (unknown) Oxygen Flow Rate (units (unknown) date) 0 unknown) (unknown) (no (unknown) (unknown) PFSH (units (unkno wn) date) unknown) (unknown) (no (unknown) (unknown) PT 13.5 H (units (unkn own) date) unknown) (unknown) (no (unknown) (unknown) PT (units (unkno wn) date) unknown) (unknown) (no (unknown) (unknown) Patient (units (unkno wn) date) Disposition: Home unknown) (unknown) (no (unknown) (unknown) Patient: (units (unkno wn) date) Duncan Rock K unknown) MR#: [id number] (unknown) (no (unknown) (unknown) Physician (units (unkn own) date) Instructions: unknown) Evaluate and Treat (unknown) (no (unknown) (unknown) Physician (units (unkn own) date) Instructions: unknown) Evaluate and treat (unknown) (no (unknown) (unknown) Plt Count 328 (units ( unknown) date) unknown) (unknown) (no (unknown) (unknown) Plt Count (units (unkn own) date) unknown) (unknown) (no (unknown) (unknown) Potassium 4.1 (units ( unknown) date) unknown) (unknown) (no (unknown) (unknown) Potassium 4.4 (units ( unknown) date) unknown) (unknown) (no (unknown) (unknown) Potassium (units (unkn own) date) unknown) (unknown) (no (unknown) (unknown) Prescriptions: (units (unknown) date) unknown) (unknown) (no (unknown) (unknown) Primary Care (units (u nknown) date) Provider: unknown) Darrell Cottrell (unknown) (no (unknown) (unknown) Primary care (units (u nknown) date) physician: unknown) (unknown) (no (unknown) (unknown) Provider (units (unkno wn) date) unknown) (unknown) (no (unknown) (unknown) Provider: (units (unkn own) date) Heraclio Mckeon A unknown) D.O. (unknown) (no (unknown) (unknown) Proxy: Heraclio (units (unknown) date) [place] unknown) partner (unknown) (no (unknown) (unknown) Psych: Patient (units (unknown) date) has a well-kept unknown) appearance, appropriate affect, mental status (unknown) (no (unknown) (unknown) Pulse Oximetry 98 (units (unknown) date) unknown) (unknown) (no (unknown) (unknown) Pulse Rate 43 L (units (unknown) date) unknown) (unknown) (no (unknown) (unknown) RBC 5.06 (units (unkno wn) date) unknown) (unknown) (no (unknown) (unknown) RBC (units (unkno wn) date) unknown) (unknown) (no (unknown) (unknown) RDW 15.0 H (units (unk nown) date) unknown) (unknown) (no (unknown) (unknown) RDW (units (unkno wn) date) unknown) (unknown) (no (unknown) (unknown) Respiratory Rate (units (unknown) date) 42 H unknown) (unknown) (no (unknown) (unknown) Restrictive lung (units (unknown) date) disease unknown) (unknown) (no (unknown) (unknown) Darrell Cottrell, (units (unknown) date) MD unknown) (unknown) (no (unknown) (unknown) Rx Instructions: (units (unknown) date) unknown) (unknown) (no (unknown) (unknown) SARS-CoV-2 (PCR) (units (unknown) date) Negative unknown) (unknown) (no (unknown) (unknown) SARS-CoV-2 (PCR) (units (unknown) date) unknown) (unknown) (no (unknown) (unknown) She is not on any (units (unknown) date) outpatient unknown) medications or inhalers. (unknown) (no (unknown) (unknown) Signed By: (units (unk nown) date) unknown) (unknown) (no (unknown) (unknown) Skin: Warm dry (units (unknown) date) and intact without unknown) rashes, ulcerations or petechiae. (unknown) (no (unknown) (unknown) Smoking Status: (units [...] wn) date) unknown) (unknown) (no (unknown) (unknown) Stand Alone (units (un known) date) Forms: Patient unknown) Portal/API, Stroke Signs + Symptoms (unknown) (no (unknown) (unknown) Status post hip (units (unknown) date) surgery unknown) (unknown) (no (unknown) (unknown) Summary (units (unkno wn) date) unknown) (unknown) (no (unknown) (unknown) Surgical History (units (unknown) date) (Reviewed 05/10/22 unknown) @ 02:25 by May Sloan [facility]) (unknown) (no (unknown) (unknown) TSH 5.89 H (units (unk nown) date) unknown) (unknown) (no (unknown) (unknown) TSH (units (unkno wn) date) unknown) (unknown) (no (unknown) (unknown) Takes 2 tablets (units (unknown) date) daily unknown) (unknown) (no (unknown) (unknown) Temperature 97.6 (units (unknown) date) F unknown) (unknown) (no (unknown) (unknown) Time Patient (units (u nknown) date) Seen: 12:00 unknown) (unknown) (no (unknown) (unknown) Time Spent with (units (unknown) date) Patient unknown) (unknown) (no (unknown) (unknown) Time spent: (units (un known) date) Greater than 30 unknown) minutes (unknown) (no (unknown) (unknown) Total Bilirubin (units (unknown) date) 0.8 unknown) (unknown) (no (unknown) (unknown) Total Bilirubin (units (unknown) date) unknown) (unknown) (no (unknown) (unknown) Total Creatine (units (unknown) date) Kinase 44 unknown) (unknown) (no (unknown) (unknown) Total Creatine (units (unknown) date) Kinase unknown) (unknown) (no (unknown) (unknown) Total Protein 7.7 (units (unknown) date) unknown) (unknown) (no (unknown) (unknown) Total Protein (units ( unknown) date) unknown) (unknown) (no (unknown) (unknown) Troponin I 0.013 (units (unknown) date) 0.014 unknown) (unknown) (no (unknown) (unknown) Troponin I 0.018 (units (unknown) date) unknown) (unknown) (no (unknown) (unknown) Troponin I (units (unk nown) date) unknown) (unknown) (no (unknown) (unknown) Visit (units (unkno wn) date) Report/Discharge unknown) Packet (unknown) (no (unknown) (unknown) Vital Signs (units (un known) date) unknown) (unknown) (no (unknown) (unknown) WBC 9.4 (units (unkno wn) date) unknown) (unknown) (no (unknown) (unknown) WBC (units (unkno wn) date) unknown) (unknown) (no (unknown) (unknown) [Embedded Image (units (unknown) date) Not Available] unknown) (unknown) (no (unknown) (unknown) abnormalities (units ( unknown) date) prolonged QTC 494 unknown) without ST or T-wave changes. Last echo 10/05 (unknown) (no (unknown) (unknown) alcohol intake: (units (unknown) date) current unknown) (unknown) (no (unknown) (unknown) angina/dyspnea. (units (unknown) date) Once bradycardia unknown) can be resolved the patient can be seen (unknown) (no (unknown) (unknown) approximately 1 (units (unknown) date) week ago which was unknown) found Dr. Mckeon to have been completed on (unknown) (no (unknown) (unknown) are present in (units (unknown) date) all 4 quadrants unknown) without guarding or rebound, no CVA tenderness. (unknown) (no (unknown) (unknown) aspirin 81 mg (units ( unknown) date) Tablet,Delayed unknown) Release (Dr/Ec) (unknown) (no (unknown) (unknown) attitude thought (units (unknown) date) context and unknown) judgment are appropriate for age. (unknown) (no (unknown) (unknown) b.i.d. and (units (unk nown) date) complains of low unknown) energy with exertional angina/shortness of breath (unknown) (no (unknown) (unknown) b.i.d. initiated (units (unknown) date) and complains of unknown) low energy with exertional angina/shortness of (unknown) (no (unknown) (unknown) blood pressure (units (unknown) date) control. unknown) (unknown) (no (unknown) (unknown) bradycardia and (units (unknown) date) that she may need unknown) to be tapered back on her pain medications-a (unknown) (no (unknown) (unknown) breath,and (units (unk nown) date) bradycardia. unknown) Patient has sustained bradycardia in ED and on floor in (unknown) (no (unknown) (unknown) call safety and health manager (units (unknown) date) recommended unknown) decreasing the metoprolol dose by half and adding (unknown) (no (unknown) (unknown) cardiac demand (units (unknown) date) ischemia. unknown) (unknown) (no (unknown) (unknown) changes, (units (unkno wn) date) constipation, unknown) incontinence, melena, rashes, recent illness with the (unknown) (no (unknown) (unknown) chills, cough, (units (unknown) date) recent exposure to unknown) illness, abdominal pain, nausea, vomiting, (unknown) (no (unknown) (unknown) cholecalciferol (units (unknown) date) (vitamin D3) 50 unknown) mcg (2,000 unit) Tablet (unknown) (no (unknown) (unknown) chronic, present (units (unknown) date) on unknown) admission-patient is stable and in no distress (unknown) (no (unknown) (unknown) clear and mucous (units (unknown) date) membranes are unknown) moist. Neck is supple and symmetric, trachea is (unknown) (no (unknown) (unknown) clearance 42, PT (units (unknown) date) 13.5 although INR unknown) stable 1.2 PTT 50, troponin 0.018, COVID is (unknown) (no (unknown) (unknown) continued in the (units (unknown) date) 40s throughout the unknown) night. Metoprolol (unknown) (no (unknown) (unknown) decreasing the (units (unknown) date) metoprolol dose by unknown) half and adding 2.5 amlodipine, and repeating (unknown) (no (unknown) (unknown) deformity, (units (unk nown) date) crepitus, unknown) effusions, cyanosis, clubbing or edema present. Full range (unknown) (no (unknown) (unknown) diagnostic (units (unk nown) date) imaging, and unknown) laboratory results. (unknown) (no (unknown) (unknown) diazepam [Valium] (units (unknown) date) 10 mg Tablet unknown) (unknown) (no (unknown) (unknown) difficulty (units (unk nown) date) swallowing, speech unknown) impairment, weakness, numbness, tingling, (unknown) (no (unknown) (unknown) difficulty with (units (unknown) date) ambulation, recent unknown) falls, head injury, LOC, fever, body aches, (unknown) (no (unknown) (unknown) discussion for (units (unknown) date) follow-up with unknown) Cardiology and PCP (unknown) (no (unknown) (unknown) documented and/or (units (unknown) date) surrogate decision unknown) maker is listed in the patient's medical (unknown) (no (unknown) (unknown) dramatically (units (u nknown) date) decreasing her unknown) activity level. Her cardiology office today advised (unknown) (no (unknown) (unknown) due to (units (unkno wn) date) bradycardia, unknown) exertional angina/dyspnea. (unknown) (no (unknown) (unknown) echo, with urgent (units (unknown) date) follow-up in their unknown) clinic. Patient admitted for observation (unknown) (no (unknown) (unknown) emergently by (units (unknown) date) [facility] unknown) at [facility] for cardiac catheterization (unknown) (no (unknown) (unknown) epilepsy, NSTEMI (units (unknown) date) 03/07-pending unknown) cardiac follow-up/catheter ization, and left hip (unknown) (no (unknown) (unknown) exception of (units (u nknown) date) those noted unknown) above.. (unknown) (no (unknown) (unknown) fatigue. (units (unkno wn) date) unknown) (unknown) (no (unknown) (unknown) fentanyl 75 (units (un known) date) mcg/hr patch 72 unknown) hour (unknown) (no (unknown) (unknown) fibrosis, HTN, (units ( unknown) date) hypothyroid, unknown) fibromyalgia, ascending aortic aneurysm, depression, (unknown) (no (unknown) (unknown) fibrosis, HTN, (units (unknown) date) hypothyroid, unknown) fibromyalgia, chronic pain medication, meth use or (unknown) (no (unknown) (unknown) fluoxetine (units (unk nown) date) [Prozac] 40 MG unknown) capsule (unknown) (no (unknown) (unknown) follow-up (units ( unknown) date) [facility] unknown) for cardiac catheterization. (unknown) (no (unknown) (unknown) follow-up with (units (unknown) date) PCP unknown) (unknown) (no (unknown) (unknown) for ?too bad (units (u nknown) date) valves and aortic unknown) aneurysm?.? After TX with metoprolol 50 mg (unknown) (no (unknown) (unknown) fracture ORIF (units ( unknown) date) with ARF unknown) 03/24/2022??Follow ed by Cardiology at [facility] (unknown) (no (unknown) (unknown) furosemide 20 mg (units (unknown) date) Tablet unknown) (unknown) (no (unknown) (unknown) history of (units (unkn own) date) epilepsy, NSTEMI unknown) 03/07-pending cardiac follow-up/catheter ization, and (unknown) (no (unknown) (unknown) household (units (unkn own) date) members: unknown) significant other (unknown) (no (unknown) (unknown) hx , regular ETOH (units (unknown) date) use, ascending unknown) aortic aneurysm, depression, history of (unknown) (no (unknown) (unknown) in the ED where (units (unknown) date) patient is being unknown) followed on-call safety and health manager recommended (unknown) (no (unknown) (unknown) intact, no gross (units (unknown) date) deficits noted of unknown) cranial nerves. (unknown) (no (unknown) (unknown) lamotrigine (units (un known) date) [Lamictal] 100 mg unknown) Tablet (unknown) (no (unknown) (unknown) left hip fracture (units (unknown) date) ORIF with ARF unknown) 03/24/2022??Follow ed by Cardiology at [place] [facility] (unknown) (no (unknown) (unknown) levothyroxine 100 (units (unknown) date) mcg Capsule unknown) (unknown) (no (unknown) (unknown) metoprolol (units (unk nown) date) tartrate 50 mg unknown) Tablet (unknown) (no (unknown) (unknown) midline, no (units (un known) date) adenopathy, no unknown) thyroid enlargement, nontender, no masses palpated. (unknown) (no (unknown) (unknown) negative. (units (unkn own) date) Patient's EKG unknown) sinus Yves rate of 44 LVH with repolarization (unknown) (no (unknown) (unknown) of motion intact (units (unknown) date) radial and pedal unknown) pulses are normal. (unknown) (no (unknown) (unknown) orthopnea, lower (units (unknown) date) extremity edema, unknown) headaches but overall general malaise and (unknown) (no (unknown) (unknown) outpatient. (units (un known) date) -EMERGENT unknown) follow-up. (unknown) (no (unknown) (unknown) over last 24 (units (u nknown) date) hours chills and unknown) significantly increased fatigue which has been (unknown) (no (unknown) (unknown) oxycodone-acetami (units (unknown) date) nophen [Percocet] unknown) 5-325 mg Tablet (unknown) (no (unknown) (unknown) potassium (units (unkn own) date) chloride 20 mEq unknown) Tablet Extended Release (unknown) (no (unknown) (unknown) record. (units (unkno wn) date) unknown) (unknown) (no (unknown) (unknown) saturation 97% on (units (unknown) date) room air. CBC unknown) unremarkable, chloride 97, BUN 27, creatinine (unknown) (no (unknown) (unknown) she come in for (units (unknown) date) further unknown) evaluation.? She reports no overt fevers, cough, (unknown) (no (unknown) (unknown) sleep. (units (unkno wn) date) unknown) (unknown) (no (unknown) (unknown) substance use (units ( unknown) date) type: does not use unknown) (unknown) (no (unknown) (unknown) that resolves (units ( unknown) date) with nitroglycerin unknown) occurring more frequently, slow heart beat and (unknown) (no (unknown) (unknown) the 40s. Patient (units (unknown) date) admitted for unknown) observation due to bradycardia, exertional (unknown) (no (unknown) (unknown) the patient's (units ( unknown) date) current unknown) medications. (unknown) (no (unknown) (unknown) this time. (units (unk nown) date) unknown) (unknown) (no (unknown) (unknown) thoracic aorta (units (unknown) date) redemonstrated, unknown) enlarged heart. [facility] was consulted (unknown) (no (unknown) (unknown) urinary (units (unkno wn) date) incontinence/reten unknown) tion, dysuria, frequency, urgency, hematuria, bowel (unknown) (no (unknown) (unknown) vitamin B complex (units (unknown) date) Tablet unknown) (unknown) (no (unknown) (unknown) wheezes, rhonchi, (units (unknown) date) or rales. unknown) (unknown) (no (unknown) (unknown) with Dr Martinez (units (unknown) date) (Dr Cottrell is unknown) out of town) ) (unknown) (no (unknown) (unknown) with an EF 60 (units ( unknown) date) 65%. Chest x-ray unknown) demonstrated aneurysmal dilation ascending Result panel 248 (unknown) (no (unknown) (unknown) (no value) (units (unk nown) date) unknown) (unknown) (no (unknown) (unknown) (past 8 hours): (units (unknown) date) unknown) (unknown) (no (unknown) (unknown) - TSH 5.89 (units (unk nown) date) unknown) (unknown) (no (unknown) (unknown) -03/23/2022 admit: (units (unknown) date) Troponin was unknown) 0.050, down trending to 0.041.? It likely to be (unknown) (no (unknown) (unknown) -EKG sinus Yves (units (unknown) date) rate of 44 LVH unknown) with repolarization abnormalities prolonged QTC (unknown) (no (unknown) (unknown) -[facility] (units (unkno wn) date) cardiology was unknown) consulted in the ED where patient is being followed on (unknown) (no (unknown) (unknown) -Ordered BNP, (units ( unknown) date) TSH/Free T4 unknown) (unknown) (no (unknown) (unknown) -Ordered TSH/T$ (units (unknown) date) unknown) (unknown) (no (unknown) (unknown) -PT 13.5 although (units (unknown) date) INR stable 1.2 PTT unknown) 50 (unknown) (no (unknown) (unknown) -Patient takes (units (unknown) date) fentanyl 75 mcg Q unknown) 72 hours.? Percocet q.4-6 hours (unknown) (no (unknown) (unknown) -Recommend (units (unk nown) date) reaching out to Dr unknown) [facility] for fast tracking Cardiac cath as an (unknown) (no (unknown) (unknown) -change home dose (units (unknown) date) of 100 unknown) levothyroxine to 125mcg QD repeat tsh outpatient (unknown) (no (unknown) (unknown) -discussed with (units (unknown) date) patient my unknown) concerns regarding polypharmacy in relation to her (unknown) (no (unknown) (unknown) -echo 10/05 with (units (unknown) date) an EF 60 65%. unknown) (unknown) (no (unknown) (unknown) -initial troponin (units (unknown) date) 0.018 will trend unknown) x3 (unknown) (no (unknown) (unknown) -initially reduce (units (unknown) date) metoprolol to 25 unknown) b.i.d., but asked patient's heart rate (unknown) (no (unknown) (unknown) -initiated (units (unk nown) date) amlodipine 2.5 unknown) q.day (unknown) (no (unknown) (unknown) -managed by (units (unknown) date) [facility] unknown) Cardiology (unknown) (no (unknown) (unknown) -patient (units (unkno wn) date) verbalized that unknown) she had echo completed [facility] P[facility] (unknown) (no (unknown) (unknown) 04/27/2021-will (units (unknown) date) not repeat echo. unknown) (unknown) (no (unknown) (unknown) 05/09/22 05/09/22 (units (unknown) date) 05/09/22 unknown) (unknown) (no (unknown) (unknown) 05/09/22 21:59 (units (unknown) date) unknown) (unknown) (no (unknown) (unknown) 05/10/22 05/10/22 (units (unknown) date) 05/10/22 unknown) (unknown) (no (unknown) (unknown) 05/10/22 01:56 (units (unknown) date) unknown) (unknown) (no (unknown) (unknown) 05/10/22 02:04 (units (unknown) date) unknown) (unknown) (no (unknown) (unknown) 05/10/22 02:38 (units (unknown) date) unknown) (unknown) (no (unknown) (unknown) 05/10/22 05:47 (units (unknown) date) unknown) (unknown) (no (unknown) (unknown) 05/10/22 (units (unkno wn) date) unknown) (unknown) (no (unknown) (unknown) [id number] (units (unkno wn) date) unknown) (unknown) (no (unknown) (unknown) 02:13 05:47 05:47 (units (unknown) date) unknown) (unknown) (no (unknown) (unknown) 08:00 05/10/22 (units (unknown) date) unknown) (unknown) (no (unknown) (unknown) 08:00 (units (unkno wn) date) unknown) (unknown) (no (unknown) (unknown) 1 tab PO DAILY (units (unknown) date) unknown) (unknown) (no (unknown) (unknown) 1 tab PO Q6H PRN (units (unknown) date) (Reason: Pain unknown) (Scale Score 4-6)) (unknown) (no (unknown) (unknown) 1. Bradycardia, (units (unknown) date) with exertional unknown) angina/dyspnea, acute, present on admission (unknown) (no (unknown) (unknown) 10 mg PO BEDTIME (units (unknown) date) unknown) (unknown) (no (unknown) (unknown) 100 mcg PO DAILY (units (unknown) date) unknown) (unknown) (no (unknown) (unknown) 100 mg PO DAILY (units (unknown) date) unknown) (unknown) (no (unknown) (unknown) 2 midnights once (units (unknown) date) bradycardia has unknown) been resolved, patient to emergent outpatient (unknown) (no (unknown) (unknown) 2. History of (units ( unknown) date) recent NSTEMI, unknown) requiring cardiac catheterization, acute on (unknown) (no (unknown) (unknown) 2.5 amlodipine, (units (unknown) date) and repeating unknown) echo, with urgent follow-up in their clinic. (unknown) (no (unknown) (unknown) 20 meq PO DAILY (units (unknown) date) unknown) (unknown) (no (unknown) (unknown) 20 mg PO DAILY (units (unknown) date) unknown) (unknown) (no (unknown) (unknown) 21:59 21:59 21:59 (units (unknown) date) unknown) (unknown) (no (unknown) (unknown) 22:04 22:04 22:05 (units (unknown) date) unknown) (unknown) (no (unknown) (unknown) 3. 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 unknown) (unknown) (no (unknown) (unknown) 5. 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 Depression, (units (unknown) date) chronic, present unknown) on admission (unknown) (no (unknown) (unknown) 60 mg PO DAILY (units (unknown) date) Qty: 0 unknown) (unknown) (no (unknown) (unknown) 75 mcg (units (unkno wn) date) transdermal Q72H unknown) (unknown) (no (unknown) (unknown) 8. (units (unkno wn) date) Hypothyroidism, unknown) acquired, chronic, present on admission (unknown) (no (unknown) (unknown) 81 mg PO DAILY (units (unknown) date) unknown) (unknown) (no (unknown) (unknown) ALT 17 (units (unkno wn) date) unknown) (unknown) (no (unknown) (unknown) ALT (units (unkno wn) date) unknown) (unknown) (no (unknown) (unknown) APTT 50 H (units (unkn own) date) unknown) (unknown) (no (unknown) (unknown) APTT (units (unkno wn) date) unknown) (unknown) (no (unknown) (unknown) AST 26 (units (unkno wn) date) unknown) (unknown) (no (unknown) (unknown) AST (units (unkno wn) date) unknown) (unknown) (no (unknown) (unknown) Abdomen: Soft (units ( unknown) date) nontender, unknown) negative for organomegaly, or masses. Bowel sounds (unknown) (no (unknown) (unknown) Admit vitals temp (units (unknown) date) 98?, 116/68, unknown) continued bradycardia HR 41, tachypneic RR 42, O2 (unknown) (no (unknown) (unknown) Age/Sex: 72 / F (units (unknown) date) unknown) (unknown) (no (unknown) (unknown) Albumin 4.4 (units (un known) date) unknown) (unknown) (no (unknown) (unknown) Albumin (units (unkno wn) date) unknown) (unknown) (no (unknown) (unknown) Albumin/Globulin (units (unknown) date) Ratio 1.3 unknown) (unknown) (no (unknown) (unknown) Albumin/Globulin (units (unknown) date) Ratio unknown) (unknown) (no (unknown) (unknown) Alkaline (units (unkno wn) date) Phosphatase 109 unknown) (unknown) (no (unknown) (unknown) Alkaline (units (unkno wn) date) Phosphatase unknown) (unknown) (no (unknown) (unknown) Attending (units (unkn own) date) Provider: unknown) May Sloan (unknown) (no (unknown) (unknown) BUN 27 H (units (unkno wn) date) unknown) (unknown) (no (unknown) (unknown) BUN (units (unkno wn) date) unknown) (unknown) (no (unknown) (unknown) BUN/Creatinine (units (unknown) date) Ratio 30.3 H unknown) (unknown) (no (unknown) (unknown) BUN/Creatinine (units (unknown) date) Ratio 31.0 H unknown) (unknown) (no (unknown) (unknown) BUN/Creatinine (units (unknown) date) Ratio unknown) (unknown) (no (unknown) (unknown) Baso # (Auto) 100 (units (unknown) date) unknown) (unknown) (no (unknown) (unknown) Baso # (Auto) (units ( unknown) date) unknown) (unknown) (no (unknown) (unknown) Baso % (Auto) 0.9 (units (unknown) date) unknown) (unknown) (no (unknown) (unknown) Baso % (Auto) (units ( unknown) date) unknown) (unknown) (no (unknown) (unknown) Blood Pressure (units (unknown) date) 123/53 L unknown) (unknown) (no (unknown) (unknown) CK-MB [...] nown) date) unknown) (unknown) (no (unknown) (unknown) COVID (units (unkno wn) date) PCR:Negative unknown) (unknown) (no (unknown) (unknown) Calcium 9.2 (units (un known) date) unknown) (unknown) (no (unknown) (unknown) Calcium 9.4 (units (un known) date) unknown) (unknown) (no (unknown) (unknown) Calcium (units (unkno wn) date) unknown) (unknown) (no (unknown) (unknown) Carbon Dioxide 27 (units (unknown) date) unknown) (unknown) (no (unknown) (unknown) Carbon Dioxide 28 (units (unknown) date) unknown) (unknown) (no (unknown) (unknown) Carbon Dioxide (units (unknown) date) unknown) (unknown) (no (unknown) (unknown) Cardio: (units (unkno wn) date) Bradycardic rate unknown) and rhythm (unknown) (no (unknown) (unknown) Chest: no nasal (units (unknown) date) flaring, unknown) retractions, or tachypneic labored breathing. (unknown) (no (unknown) (unknown) Chief complaint: (units (unknown) date) heart is unknown) fluctuating, uncontrolled temperature (unknown) (no (unknown) (unknown) Chloride 96 L (units ( unknown) date) unknown) (unknown) (no (unknown) (unknown) Chloride 97 L (units ( unknown) date) unknown) (unknown) (no (unknown) (unknown) Chloride (units (unkno wn) date) unknown) (unknown) (no (unknown) (unknown) Comment: Fatigue, (units (unknown) date) Hipfx-ORIF 04/06 unknown) (unknown) (no (unknown) (unknown) Comment: (units (unkno wn) date) unknown) (unknown) (no (unknown) (unknown) Consult to (units (unk nown) date) Occupational unknown) Therapy Evaluate + Treat (unknown) (no (unknown) (unknown) Consult to (units (unk nown) date) Physical Therapy unknown) Evaluate + Treat (unknown) (no (unknown) (unknown) Consult to Social (units (unknown) date) Services Routine unknown) (unknown) (no (unknown) (unknown) Consults: (units (unkn own) date) unknown) (unknown) (no (unknown) (unknown) Continue (units (unkno wn) date) outpatient dose of unknown) Lamictal.? She also uses diazepam at bedtime for (unknown) (no (unknown) (unknown) Continued (units (unkn own) date) unknown) (unknown) (no (unknown) (unknown) Creatinine 0.87 (units (unknown) date) unknown) (unknown) (no (unknown) (unknown) Creatinine 0.89 (units (unknown) date) unknown) (unknown) (no (unknown) (unknown) Creatinine (units (unk nown) date) unknown) (unknown) (no (unknown) (unknown) : 1950 (units (unknown) date) Acct:[id number] unknown) (unknown) (no (unknown) (unknown) DVT/VTE (units (unkno wn) date) prophylaxis: unknown) Lovenox and SCD (unknown) (no (unknown) (unknown) Date Patient (units (u nknown) date) Seen: 05/10/22 unknown) (unknown) (no (unknown) (unknown) Date of Service: (units (unknown) date) 05/10/22 unknown) (unknown) (no (unknown) (unknown) Date of (units (unkno wn) date) admission: unknown) (unknown) (no (unknown) (unknown) Discharge Data (units (unknown) date) unknown) (unknown) (no (unknown) (unknown) Discharge Date: (units (unknown) date) 05/10/22 unknown) (unknown) (no (unknown) (unknown) Discharge (units [...] date) provider: unknown) (unknown) (no (unknown) (unknown) Discontinued (units (u nknown) date) unknown) (unknown) (no (unknown) (unknown) Disposition: (units (u nknown) date) Patient admitted unknown) for observation expected length of stay less than (unknown) (no (unknown) (unknown) Eos # (Auto) 100 (units (unknown) date) unknown) (unknown) (no (unknown) (unknown) Eos # (Auto) (units (u nknown) date) unknown) (unknown) (no (unknown) (unknown) Eos % (Auto) 1.0 (units (unknown) date) L unknown) (unknown) (no (unknown) (unknown) Eos % (Auto) (units (u nknown) date) unknown) (unknown) (no (unknown) (unknown) Estimated GFR > (units (unknown) date) 60 unknown) (unknown) (no (unknown) (unknown) Estimated GFR (units ( unknown) date) unknown) (unknown) (no (unknown) (unknown) [facility] for ?too (units (unknown) date) bad valves and unknown) aortic aneurysm?.? After TX metoprolol 50 mg (unknown) (no (unknown) (unknown) Exam Narrative: (units (unknown) date) unknown) (unknown) (no (unknown) (unknown) Exam (units (unkno wn) date) unknown) (unknown) (no (unknown) (unknown) Family History (units (unknown) date) (Reviewed 05/10/22 unknown) @ 02:26 by May Sloan [facility]) (unknown) (no (unknown) (unknown) Father No (units (unkn own) date) problems noted. unknown) (unknown) (no (unknown) (unknown) Fibromyalgia (units (u nknown) date) unknown) (unknown) (no (unknown) (unknown) Follow (units (unkno wn) date) up/Referrals: unknown) (unknown) (no (unknown) (unknown) Free T4 1.74 (units (u nknown) date) unknown) (unknown) (no (unknown) (unknown) Free T4 (units (unkno wn) date) unknown) (unknown) (no (unknown) (unknown) General: Patient (units (unknown) date) is a thin frail unknown) appearing elderly female in no distress at (unknown) (no (unknown) (unknown) Globulin 3.3 (units (u nknown) date) unknown) (unknown) (no (unknown) (unknown) Globulin (units (unkno wn) date) unknown) (unknown) (no (unknown) (unknown) Glucose 103 (units (un known) date) unknown) (unknown) (no (unknown) (unknown) Glucose 97 (units (unk nown) date) unknown) (unknown) (no (unknown) (unknown) Glucose (units (unkno wn) date) unknown) (unknown) (no (unknown) (unknown) HEENT: (units (unkno wn) date) Normocephalic, unknown) atraumatic, extraocular muscles intact, oral pharynx is (unknown) (no (unknown) (unknown) Hct 42.9 (units (unkno wn) date) unknown) (unknown) (no (unknown) (unknown) Hct (units (unkno wn) date) unknown) (unknown) (no (unknown) (unknown) Hgb 14.2 (units (unkno wn) date) unknown) (unknown) (no (unknown) (unknown) Hgb (units (unkno wn) date) unknown) (unknown) (no (unknown) (unknown) History of (units (unk nown) date) Present Illness unknown) (unknown) (no (unknown) (unknown) Hospital Course (units (unknown) date) unknown) (unknown) (no (unknown) (unknown) Hypertension (units (u nknown) date) unknown) (unknown) (no (unknown) (unknown) Hypothyroidism (units (unknown) date) unknown) (unknown) (no (unknown) (unknown) I confirmed that (units (unknown) date) the patient's unknown) advanced care plan is present, Code status is (unknown) (no (unknown) (unknown) I have personally (units (unknown) date) reviewed patient's unknown) chart notes from PCP, specialists, (unknown) (no (unknown) (unknown) I have utilized (units (unknown) date) all available unknown) immediate resources to obtain, update, or review (unknown) (no (unknown) (unknown) INR 1.2 (units (unkno wn) date) unknown) (unknown) (no (unknown) (unknown) INR (units (unkno wn) date) unknown) (unknown) (no (unknown) (unknown) Instructions: DI (units (unknown) date) for Bradycardia unknown) (unknown) (no (unknown) (unknown) [facility] (units (unknown) date) [address] unknown) [place] [address] (unknown) (no (unknown) (unknown) Laboratory (units (unk nown) date) Results - last 24 unknown) hr (unknown) (no (unknown) (unknown) Labs (units (unkno wn) date) unknown) (unknown) (no (unknown) (unknown) Labs: (units (unkno wn) date) unknown) (unknown) (no (unknown) (unknown) Duncan Rock is (units (unknown) date) a 72-year-old unknown) 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 (unknown) (no (unknown) (unknown) Lipase 152 (units (unk nown) date) unknown) (unknown) (no (unknown) (unknown) Lipase (units (unkno wn) date) unknown) (unknown) (no (unknown) (unknown) Lungs: (units (unkno wn) date) Auscultation of unknown) all lung barney are clear without adventitious sounds, (unknown) (no (unknown) (unknown) Darrell Cottrell, (units (unknown) date) [Primary Care unknown) Provider] - 05/24/22 2:30 pm (appt:05/24 @ 2:30 (unknown) (no (unknown) (unknown) Lymph # (Auto) (units (unknown) date) 1700 unknown) (unknown) (no (unknown) (unknown) Lymph # (Auto) (units (unknown) date) unknown) (unknown) (no (unknown) (unknown) Lymph % (Auto) (units (unknown) date) 18.2 L unknown) (unknown) (no (unknown) (unknown) Lymph % (Auto) (units (unknown) date) unknown) (unknown) (no (unknown) (unknown) MCH 28.0 (units (unkno wn) date) unknown) (unknown) (no (unknown) (unknown) MCH (units (unkno wn) date) unknown) (unknown) (no (unknown) (unknown) MCHC 33.0 (units (unkn own) date) unknown) (unknown) (no (unknown) (unknown) MCHC (units (unkno wn) date) unknown) (unknown) (no (unknown) (unknown) MCV 84.9 (units (unkno wn) date) unknown) (unknown) (no (unknown) (unknown) MCV (units (unkno wn) date) unknown) (unknown) (no (unknown) (unknown) Magnesium 1.9 (units ( unknown) date) unknown) (unknown) (no (unknown) (unknown) Magnesium (units (unkn own) date) unknown) (unknown) (no (unknown) (unknown) Heraclio Mckeon, (units (unknown) date) DO unknown) (unknown) (no (unknown) (unknown) Measuring 6.4 (units ( unknown) date) cm.? She will need unknown) close follow-up.? She is on metoprolol for (unknown) (no (unknown) (unknown) Medical History (units (unknown) date) (Reviewed 05/10/22 unknown) @ 02:25 [facility]) (unknown) (no (unknown) (unknown) Mobile # (Auto) 700 (units (unknown) date) unknown) (unknown) (no (unknown) (unknown) Mobile # (Auto) (units ( unknown) date) unknown) (unknown) (no (unknown) (unknown) Mobile % (Auto) 7.7 (units (unknown) date) unknown) (unknown) (no (unknown) (unknown) Mobile % (Auto) (units ( unknown) date) unknown) (unknown) (no (unknown) (unknown) Mother TIA (units (unk nown) date) (transient unknown) ischemic attack) (unknown) (no (unknown) (unknown) Musculoskeletal: (units (unknown) date) Muscle strength unknown) and tone are equal within normal limits, no (unknown) (no (unknown) (unknown) Myocardial (units (unk nown) date) infarction unknown) (unknown) (no (unknown) (unknown) NT-Pro-B (units (unkno wn) date) Natriuret Pep 6090 unknown) H (unknown) (no (unknown) (unknown) NT-Pro-B (units (unkno wn) date) Natriuret Pep unknown) (unknown) (no (unknown) (unknown) Narrative (units (unkn own) date) unknown) (unknown) (no (unknown) (unknown) Narrative: (units (unk nown) date) unknown) (unknown) (no (unknown) (unknown) Negative for JVD (units (unknown) date) unknown) (unknown) (no (unknown) (unknown) Neuro: Alert and (units (unknown) date) orientated x3, unknown) moves all extremities, sensation to touch (unknown) (no (unknown) (unknown) Neut # (Auto) (units ( unknown) date) 6800 unknown) (unknown) (no (unknown) (unknown) Neut # (Auto) (units ( unknown) date) unknown) (unknown) (no (unknown) (unknown) Neut % (Auto) (units ( unknown) date) 72.2 unknown) (unknown) (no (unknown) (unknown) Neut % (Auto) (units ( unknown) date) unknown) (unknown) (no (unknown) (unknown) Objective (units (unkn own) date) unknown) (unknown) (no (unknown) (unknown) On admit patient (units (unknown) date) denies chest pain unknown) + SOB at rest, headache, changes in vision, (unknown) (no (unknown) (unknown) Oxygen Delivery (units (unknown) date) Method Room Air unknown) (unknown) (no (unknown) (unknown) Oxygen Flow Rate (units (unknown) date) 0 unknown) (unknown) (no (unknown) (unknown) PFSH (units (unkno wn) date) unknown) (unknown) (no (unknown) (unknown) PT 13.5 H (units (unkn own) date) unknown) (unknown) (no (unknown) (unknown) PT (units (unkno wn) date) unknown) (unknown) (no (unknown) (unknown) Patient (units (unkno wn) date) Disposition: Home unknown) (unknown) (no (unknown) (unknown) Patient: (units (unkno wn) date) Duncan Rock unknown) MR#: [id number] (unknown) (no (unknown) (unknown) Physician (units (unkn own) date) Instructions: unknown) Evaluate and Treat (unknown) (no (unknown) (unknown) Physician (units (unkn own) date) Instructions: unknown) Evaluate and treat (unknown) (no (unknown) (unknown) Plt Count 328 (units ( unknown) date) unknown) (unknown) (no (unknown) (unknown) Plt Count (units (unkn own) date) unknown) (unknown) (no (unknown) (unknown) Potassium 4.1 (units ( unknown) date) unknown) (unknown) (no (unknown) (unknown) Potassium 4.4 (units ( unknown) date) unknown) (unknown) (no (unknown) (unknown) Potassium (units (unkn own) date) unknown) (unknown) (no (unknown) (unknown) Prescriptions: (units [...] (unknown) Proxy: Heraclio (units (unknown) date) Emery, perfecto unknown) partner (unknown) (no (unknown) (unknown) Psych: Patient (units (unknown) date) has a well-kept unknown) appearance, appropriate affect, mental status (unknown) (no (unknown) (unknown) Pulse Oximetry 98 (units (unknown) date) unknown) (unknown) (no (unknown) (unknown) Pulse Rate 43 L (units (unknown) date) unknown) (unknown) (no (unknown) (unknown) RBC 5.06 (units (unkno wn) date) unknown) (unknown) (no (unknown) (unknown) RBC (units (unkno wn) date) unknown) (unknown) (no (unknown) (unknown) RDW 15.0 H (units (unk nown) date) unknown) (unknown) (no (unknown) (unknown) RDW (units (unkno wn) date) unknown) (unknown) (no (unknown) (unknown) Respiratory Rate (units (unknown) date) 42 H unknown) (unknown) (no (unknown) (unknown) Restrictive lung (units (unknown) date) disease unknown) (unknown) (no (unknown) (unknown) Darrell Cottrell, (units (unknown) date) unknown) (unknown) (no (unknown) (unknown) Rx Instructions: (units (unknown) date) unknown) (unknown) (no (unknown) (unknown) SARS-CoV-2 (PCR) (units (unknown) date) Negative unknown) (unknown) (no (unknown) (unknown) SARS-CoV-2 (PCR) (units (unknown) date) unknown) (unknown) (no (unknown) (unknown) She is not on any (units (unknown) date) outpatient unknown) medications or inhalers. (unknown) (no (unknown) (unknown) Signed By: (units (unk nown) date) unknown) (unknown) (no (unknown) (unknown) Skin: Warm dry (units (unknown) date) and intact without unknown) rashes, ulcerations or petechiae. (unknown) (no (unknown) (unknown) Smoking Status: (units [...] wn) date) unknown) (unknown) (no (unknown) (unknown) Stand Alone (units (un known) date) Forms: Patient unknown) Portal/API, Stroke Signs + Symptoms (unknown) (no (unknown) (unknown) Status post hip (units (unknown) date) surgery unknown) (unknown) (no (unknown) (unknown) Summary (units (unkno wn) date) unknown) (unknown) (no (unknown) (unknown) Surgical History (units (unknown) date) (Reviewed 05/10/22 unknown) @ 02:25 by DAINA Parikh) (unknown) (no (unknown) (unknown) TSH 5.89 H (units (unk nown) date) unknown) (unknown) (no (unknown) (unknown) TSH (units (unkno wn) date) unknown) (unknown) (no (unknown) (unknown) Takes 2 tablets (units (unknown) date) daily unknown) (unknown) (no (unknown) (unknown) Temperature 97.6 (units (unknown) date) F unknown) (unknown) (no (unknown) (unknown) Time Patient (units (u nknown) date) Seen: 12:00 unknown) (unknown) (no (unknown) (unknown) Time Spent with (units (unknown) date) Patient unknown) (unknown) (no (unknown) (unknown) Time spent: (units (un known) date) Greater than 30 unknown) minutes (unknown) (no (unknown) (unknown) Total Bilirubin (units (unknown) date) 0.8 unknown) (unknown) (no (unknown) (unknown) Total Bilirubin (units (unknown) date) unknown) (unknown) (no (unknown) (unknown) Total Creatine (units (unknown) date) Kinase 44 unknown) (unknown) (no (unknown) (unknown) Total Creatine (units (unknown) date) Kinase unknown) (unknown) (no (unknown) (unknown) Total Protein 7.7 (units (unknown) date) unknown) (unknown) (no (unknown) (unknown) Total Protein (units ( unknown) date) unknown) (unknown) (no (unknown) (unknown) Troponin I 0.013 (units (unknown) date) 0.014 unknown) (unknown) (no (unknown) (unknown) Troponin I 0.018 (units (unknown) date) unknown) (unknown) (no (unknown) (unknown) Troponin I (units (unk nown) date) unknown) (unknown) (no (unknown) (unknown) Visit (units (unkno wn) date) Report/Discharge unknown) Packet (unknown) (no (unknown) (unknown) Vital Signs (units (un known) date) unknown) (unknown) (no (unknown) (unknown) WBC 9.4 (units (unkno wn) date) unknown) (unknown) (no (unknown) (unknown) WBC (units (unkno wn) date) unknown) (unknown) (no (unknown) (unknown) [Embedded Image (units (unknown) date) Not Available] unknown) (unknown) (no (unknown) (unknown) abnormalities (units ( unknown) date) prolonged QTC 494 unknown) without ST or T-wave changes. Last echo 10/05 (unknown) (no (unknown) (unknown) alcohol intake: (units (unknown) date) current unknown) (unknown) (no (unknown) (unknown) angina/dyspnea. (units (unknown) date) Once bradycardia unknown) can be resolved the patient can be seen (unknown) (no (unknown) (unknown) approximately 1 (units (unknown) date) week ago which was unknown) found Dr. Mckeon to have been completed on (unknown) (no (unknown) (unknown) are present in (units (unknown) date) all 4 quadrants unknown) without guarding or rebound, no CVA tenderness. (unknown) (no (unknown) (unknown) aspirin 81 mg (units ( unknown) date) Tablet,Delayed unknown) Release (Dr/Ec) (unknown) (no (unknown) (unknown) attitude thought (units (unknown) date) context and unknown) judgment are appropriate for age. (unknown) (no (unknown) (unknown) b.i.d. and (units (unk nown) date) complains of low unknown) energy with exertional angina/shortness of breath (unknown) (no (unknown) (unknown) b.i.d. initiated (units (unknown) date) and complains of unknown) low energy with exertional angina/shortness of (unknown) (no (unknown) (unknown) blood pressure (units (unknown) date) control. unknown) (unknown) (no (unknown) (unknown) bradycardia and (units (unknown) date) that she may need unknown) to be tapered back on her pain medications-a (unknown) (no (unknown) (unknown) breath,and (units (unk nown) date) bradycardia. unknown) Patient has sustained bradycardia in ED and on floor in (unknown) (no (unknown) (unknown) call safety and health manager (units (unknown) date) recommended unknown) decreasing the metoprolol dose by half and adding (unknown) (no (unknown) (unknown) cardiac demand (units (unknown) date) ischemia. unknown) (unknown) (no (unknown) (unknown) changes, (units (unkno wn) date) constipation, unknown) incontinence, melena, rashes, recent illness with the (unknown) (no (unknown) (unknown) chills, cough, (units (unknown) date) recent exposure to unknown) illness, abdominal pain, nausea, vomiting, (unknown) (no (unknown) (unknown) cholecalciferol (units (unknown) date) (vitamin D3) 50 unknown) mcg (2,000 unit) Tablet (unknown) (no (unknown) (unknown) chronic, present (units (unknown) date) on unknown) admission-patient is stable and in no distress (unknown) (no (unknown) (unknown) clear and mucous (units (unknown) date) membranes are unknown) moist. Neck is supple and symmetric, trachea is (unknown) (no (unknown) (unknown) clearance 42, PT (units (unknown) date) 13.5 although INR unknown) stable 1.2 PTT 50, troponin 0.018, COVID is (unknown) (no (unknown) (unknown) continued in the (units (unknown) date) 40s throughout the unknown) night. Metoprolol (unknown) (no (unknown) (unknown) decreasing the (units (unknown) date) metoprolol dose by unknown) half and adding 2.5 amlodipine, and repeating (unknown) (no (unknown) (unknown) deformity, (units (unk nown) date) crepitus, unknown) effusions, cyanosis, clubbing or edema present. Full range (unknown) (no (unknown) (unknown) diagnostic (units (unk nown) date) imaging, and unknown) laboratory results. (unknown) (no (unknown) (unknown) diazepam [Valium] (units (unknown) date) 10 mg Tablet unknown) (unknown) (no (unknown) (unknown) difficulty (units (unk nown) date) swallowing, speech unknown) impairment, weakness, numbness, tingling, (unknown) (no (unknown) (unknown) difficulty with (units (unknown) date) ambulation, recent unknown) falls, head injury, LOC, fever, body aches, (unknown) (no (unknown) (unknown) discussion for (units (unknown) date) follow-up with unknown) Cardiology and PCP (unknown) (no (unknown) (unknown) documented and/or (units (unknown) date) surrogate decision unknown) maker is listed in the patient's medical (unknown) (no (unknown) (unknown) dramatically (units (u nknown) date) decreasing her unknown) activity level. Her cardiology office today advised (unknown) (no (unknown) (unknown) due to (units (unkno wn) date) bradycardia, unknown) exertional angina/dyspnea. (unknown) (no (unknown) (unknown) echo, with urgent (units (unknown) date) follow-up in their unknown) clinic. Patient admitted for observation (unknown) (no (unknown) (unknown) emergently by (units (unknown) date) [facility] unknown) at [facility] for cardiac catheterization (unknown) (no (unknown) (unknown) epilepsy, NSTEMI (units (unknown) date) 03/07-pending unknown) cardiac follow-up/catheter ization, and left hip (unknown) (no (unknown) (unknown) exception of (units (u nknown) date) those noted unknown) above.. (unknown) (no (unknown) (unknown) fatigue. (units (unkno wn) date) unknown) (unknown) (no (unknown) (unknown) fentanyl 75 (units (un known) date) mcg/hr patch 72 unknown) hour (unknown) (no (unknown) (unknown) fibrosis, HTN, (units ( unknown) date) hypothyroid, unknown) fibromyalgia, ascending aortic aneurysm, depression, (unknown) (no (unknown) (unknown) fibrosis, HTN, (units (unknown) date) hypothyroid, unknown) fibromyalgia, chronic pain medication, meth use or (unknown) (no (unknown) (unknown) fluoxetine (units (unk nown) date) [Prozac] 40 MG unknown) capsule (unknown) (no (unknown) (unknown) follow-up (units ( unknown) date) [facility] unknown) for cardiac catheterization. (unknown) (no (unknown) (unknown) follow-up with (units (unknown) date) PCP unknown) (unknown) (no (unknown) (unknown) for ?too bad (units (u nknown) date) valves and aortic unknown) aneurysm?.? After TX with metoprolol 50 mg (unknown) (no (unknown) (unknown) fracture ORIF (units ( unknown) date) with ARF unknown) 03/24/2022??Follow ed by Cardiology at [facility] (unknown) (no (unknown) (unknown) furosemide 20 mg (units (unknown) date) Tablet unknown) (unknown) (no (unknown) (unknown) history of (units (unkn own) date) epilepsy, NSTEMI unknown) 03/07-pending cardiac follow-up/catheter ization, and (unknown) (no (unknown) (unknown) household (units (unkn own) date) members: unknown) significant other (unknown) (no (unknown) (unknown) hx , regular ETOH (units (unknown) date) use, ascending unknown) aortic aneurysm, depression, history of (unknown) (no (unknown) (unknown) in the ED where (units (unknown) date) patient is being unknown) followed on-call safety and health manager recommended (unknown) (no (unknown) (unknown) intact, no gross (units (unknown) date) deficits noted of unknown) cranial nerves. (unknown) (no (unknown) (unknown) lamotrigine (units (un known) date) [Lamictal] 100 mg unknown) Tablet (unknown) (no (unknown) (unknown) left hip fracture (units (unknown) date) ORIF with ARF unknown) 03/24/2022??Follow ed by Cardiology at [facility] (unknown) (no (unknown) (unknown) levothyroxine 100 (units (unknown) date) mcg Capsule unknown) (unknown) (no (unknown) (unknown) metoprolol (units (unk nown) date) tartrate 50 mg unknown) Tablet (unknown) (no (unknown) (unknown) midline, no (units (un known) date) adenopathy, no unknown) thyroid enlargement, nontender, no masses palpated. (unknown) (no (unknown) (unknown) negative. (units (unkn own) date) Patient's EKG unknown) sinus Yves rate of 44 LVH with repolarization (unknown) (no (unknown) (unknown) of motion intact (units (unknown) date) radial and pedal unknown) pulses are normal. (unknown) (no (unknown) (unknown) orthopnea, lower (units (unknown) date) extremity edema, unknown) headaches but overall general malaise and (unknown) (no (unknown) (unknown) outpatient. (units (un known) date) -EMERGENT unknown) follow-up. (unknown) (no (unknown) (unknown) over last 24 (units (u nknown) date) hours chills and unknown) significantly increased fatigue which has been (unknown) (no (unknown) (unknown) oxycodone-acetami (units (unknown) date) nophen [Percocet] unknown) 5-325 mg Tablet (unknown) (no (unknown) (unknown) potassium (units (unkn own) date) chloride 20 mEq unknown) Tablet Extended Release (unknown) (no (unknown) (unknown) record. (units (unkno wn) date) unknown) (unknown) (no (unknown) (unknown) saturation 97% on (units (unknown) date) room air. CBC unknown) unremarkable, chloride 97, BUN 27, creatinine (unknown) (no (unknown) (unknown) she come in for (units (unknown) date) further unknown) evaluation.? She reports no overt fevers, cough, (unknown) (no (unknown) (unknown) sleep. (units (unkno wn) date) unknown) (unknown) (no (unknown) (unknown) substance use (units ( unknown) date) type: does not use unknown) (unknown) (no (unknown) (unknown) that resolves (units ( unknown) date) with nitroglycerin unknown) occurring more frequently, slow heart beat and (unknown) (no (unknown) (unknown) the 40s. Patient (units (unknown) date) admitted for unknown) observation due to bradycardia, exertional (unknown) (no (unknown) (unknown) the patient's (units ( unknown) date) current unknown) medications. (unknown) (no (unknown) (unknown) this time. (units (unk nown) date) unknown) (unknown) (no (unknown) (unknown) thoracic aorta (units (unknown) date) redemonstrated, unknown) enlarged heart. [facility] was consulted (unknown) (no (unknown) (unknown) urinary (units (unkno wn) date) incontinence/reten unknown) tion, dysuria, frequency, urgency, hematuria, bowel (unknown) (no (unknown) (unknown) vitamin B complex (units (unknown) date) Tablet unknown) (unknown) (no (unknown) (unknown) wheezes, rhonchi, (units (unknown) date) or rales. unknown) (unknown) (no (unknown) (unknown) with Dr Martinez (units (unknown) date) (Dr Lycksell is unknown) out of town) ) (unknown) (no (unknown) (unknown) with an EF 60 (units ( unknown) date) 65%. Chest x-ray unknown) demonstrated aneurysmal dilation ascending Result panel 249 (unknown) (no (unknown) (unknown) (no value) (units (unk nown) date) unknown) (unknown) (no (unknown) (unknown) (past 8 hours): (units (unknown) date) unknown) (unknown) (no (unknown) (unknown) - TSH 5.89 (units (unk nown) date) unknown) (unknown) (no (unknown) (unknown) -03/23/2022 admit: (units (unknown) date) Troponin was unknown) 0.050, down trending to 0.041.? It likely to be (unknown) (no (unknown) (unknown) -EKG sinus Yves (units (unknown) date) rate of 44 LVH unknown) with repolarization abnormalities prolonged QTC (unknown) (no (unknown) (unknown) -[facility] (units (unkno wn) date) cardiology was unknown) consulted in the ED where patient is being followed on (unknown) (no (unknown) (unknown) -Ordered BNP, (units ( unknown) date) TSH/Free T4 unknown) (unknown) (no (unknown) (unknown) -Ordered TSH/T$ (units (unknown) date) unknown) (unknown) (no (unknown) (unknown) -PT 13.5 although (units (unknown) date) INR stable 1.2 PTT unknown) 50 (unknown) (no (unknown) (unknown) -Patient takes (units (unknown) date) fentanyl 75 mcg Q unknown) 72 hours.? Percocet q.4-6 hours (unknown) (no (unknown) (unknown) -Recommend (units (unk nown) date) reaching out to Dr unknown) [facility] for fast tracking Cardiac cath as an (unknown) (no (unknown) (unknown) -change home dose (units (unknown) date) of 100 unknown) levothyroxine to 125mcg QD repeat tsh outpatient (unknown) (no (unknown) (unknown) -discussed with (units (unknown) date) patient my unknown) concerns regarding polypharmacy in relation to her (unknown) (no (unknown) (unknown) -echo 6/22 with (units (unknown) date) an EF 60 65%. unknown) (unknown) (no (unknown) (unknown) -initial troponin (units (unknown) date) 0.018 will trend unknown) x3 (unknown) (no (unknown) (unknown) -initially reduce (units (unknown) date) metoprolol to 25 unknown) b.i.d., but asked patient's heart rate (unknown) (no (unknown) (unknown) -initiated (units (unk nown) date) amlodipine 2.5 unknown) q.day (unknown) (no (unknown) (unknown) -managed by (units (unknown) date) [facility] unknown) Cardiology (unknown) (no (unknown) (unknown) -patient (units (unkno wn) date) verbalized that unknown) she had echo completed [facility] P[facility] (unknown) (no (unknown) (unknown) 04/27/2021-will (units (unknown) date) not repeat echo. unknown) (unknown) (no (unknown) (unknown) 05/09/22 05/09/22 (units (unknown) date) 05/09/22 unknown) (unknown) (no (unknown) (unknown) 05/09/22 21:59 (units (unknown) date) unknown) (unknown) (no (unknown) (unknown) 05/10/22 05/10/22 (units (unknown) date) 05/10/22 unknown) (unknown) (no (unknown) (unknown) 05/10/22 01:56 (units (unknown) date) unknown) (unknown) (no (unknown) (unknown) 05/10/22 02:04 (units (unknown) date) unknown) (unknown) (no (unknown) (unknown) 05/10/22 02:38 (units (unknown) date) unknown) (unknown) (no (unknown) (unknown) 05/10/22 05:47 (units (unknown) date) unknown) (unknown) (no (unknown) (unknown) 05/10/22 (units (unkno wn) date) unknown) (unknown) (no (unknown) (unknown) [id number] (units (unkno wn) date) unknown) (unknown) (no (unknown) (unknown) 02:13 05:47 05:47 (units (unknown) date) unknown) (unknown) (no (unknown) (unknown) 08:00 05/10/22 (units (unknown) date) unknown) (unknown) (no (unknown) (unknown) 08:00 (units (unkno wn) date) unknown) (unknown) (no (unknown) (unknown) 1 tab PO DAILY (units (unknown) date) unknown) (unknown) (no (unknown) (unknown) 1 tab PO Q6H PRN (units (unknown) date) (Reason: Pain unknown) (Scale Score 4-6)) (unknown) (no (unknown) (unknown) 1. Bradycardia, (units (unknown) date) with exertional unknown) angina/dyspnea, acute, present on admission (unknown) (no (unknown) (unknown) 10 mg PO BEDTIME (units (unknown) date) unknown) (unknown) (no (unknown) (unknown) 100 mcg PO DAILY (units (unknown) date) unknown) (unknown) (no (unknown) (unknown) 100 mg PO DAILY (units (unknown) date) unknown) (unknown) (no (unknown) (unknown) 2 midnights once (units (unknown) date) bradycardia has unknown) been resolved, patient to emergent outpatient (unknown) (no (unknown) (unknown) 2. History of (units ( unknown) date) recent NSTEMI, unknown) requiring cardiac catheterization, acute on (unknown) (no (unknown) (unknown) 2.5 amlodipine, (units (unknown) date) and repeating unknown) echo, with urgent follow-up in their clinic. (unknown) (no (unknown) (unknown) 20 meq PO DAILY (units (unknown) date) unknown) (unknown) (no (unknown) (unknown) 20 mg PO DAILY (units (unknown) date) unknown) (unknown) (no (unknown) (unknown) 21:59 21:59 21:59 (units (unknown) date) unknown) (unknown) (no (unknown) (unknown) 22:04 22:04 22:05 (units (unknown) date) unknown) (unknown) (no (unknown) (unknown) 3. 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 unknown) (unknown) (no (unknown) (unknown) 5. 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 Depression, (units (unknown) date) chronic, present unknown) on admission (unknown) (no (unknown) (unknown) 60 mg PO DAILY (units (unknown) date) Qty: 0 unknown) (unknown) (no (unknown) (unknown) 75 mcg (units (unkno wn) date) transdermal Q72H unknown) (unknown) (no (unknown) (unknown) 8. (units (unkno wn) date) Hypothyroidism, unknown) acquired, chronic, present on admission (unknown) (no (unknown) (unknown) 81 mg PO DAILY (units (unknown) date) unknown) (unknown) (no (unknown) (unknown) ALT 17 (units (unkno wn) date) unknown) (unknown) (no (unknown) (unknown) ALT (units (unkno wn) date) unknown) (unknown) (no (unknown) (unknown) APTT 50 H (units (unkn own) date) unknown) (unknown) (no (unknown) (unknown) APTT (units (unkno wn) date) unknown) (unknown) (no (unknown) (unknown) AST 26 (units (unkno wn) date) unknown) (unknown) (no (unknown) (unknown) AST (units (unkno wn) date) unknown) (unknown) (no (unknown) (unknown) Abdomen: Soft (units ( unknown) date) nontender, unknown) negative for organomegaly, or masses. Bowel sounds (unknown) (no (unknown) (unknown) Admit vitals temp (units (unknown) date) 98?, 116/68, unknown) continued bradycardia HR 41, tachypneic RR 42, O2 (unknown) (no (unknown) (unknown) Age/Sex: 72 / F (units (unknown) date) unknown) (unknown) (no (unknown) (unknown) Albumin 4.4 (units (un known) date) unknown) (unknown) (no (unknown) (unknown) Albumin (units (unkno wn) date) unknown) (unknown) (no (unknown) (unknown) Albumin/Globulin (units (unknown) date) Ratio 1.3 unknown) (unknown) (no (unknown) (unknown) Albumin/Globulin (units (unknown) date) Ratio unknown) (unknown) (no (unknown) (unknown) Alkaline (units (unkno wn) date) Phosphatase 109 unknown) (unknown) (no (unknown) (unknown) Alkaline (units (unkno wn) date) Phosphatase unknown) (unknown) (no (unknown) (unknown) Attending (units (unkn own) date) Provider: unknown) May Sloan (unknown) (no (unknown) (unknown) BUN 27 H (units (unkno wn) date) unknown) (unknown) (no (unknown) (unknown) BUN (units (unkno wn) date) unknown) (unknown) (no (unknown) (unknown) BUN/Creatinine (units (unknown) date) Ratio 30.3 H unknown) (unknown) (no (unknown) (unknown) BUN/Creatinine (units (unknown) date) Ratio 31.0 H unknown) (unknown) (no (unknown) (unknown) BUN/Creatinine (units (unknown) date) Ratio unknown) (unknown) (no (unknown) (unknown) Baso # (Auto) 100 (units (unknown) date) unknown) (unknown) (no (unknown) (unknown) Baso # (Auto) (units ( unknown) date) unknown) (unknown) (no (unknown) (unknown) Baso % (Auto) 0.9 (units (unknown) date) unknown) (unknown) (no (unknown) (unknown) Baso % (Auto) (units ( unknown) date) unknown) (unknown) (no (unknown) (unknown) Blood Pressure (units (unknown) date) 123/53 L unknown) (unknown) (no (unknown) (unknown) CK-MB [...] nown) date) unknown) (unknown) (no (unknown) (unknown) COVID (units (unkno wn) date) PCR:Negative unknown) (unknown) (no (unknown) (unknown) Calcium 9.2 (units (un known) date) unknown) (unknown) (no (unknown) (unknown) Calcium 9.4 (units (un known) date) unknown) (unknown) (no (unknown) (unknown) Calcium (units (unkno wn) date) unknown) (unknown) (no (unknown) (unknown) Carbon Dioxide 27 (units (unknown) date) unknown) (unknown) (no (unknown) (unknown) Carbon Dioxide 28 (units (unknown) date) unknown) (unknown) (no (unknown) (unknown) Carbon Dioxide (units (unknown) date) unknown) (unknown) (no (unknown) (unknown) Cardio: (units (unkno wn) date) Bradycardic rate unknown) and rhythm (unknown) (no (unknown) (unknown) Chest: no nasal (units (unknown) date) flaring, unknown) retractions, or tachypneic labored breathing. (unknown) (no (unknown) (unknown) Chief complaint: (units (unknown) date) heart is unknown) fluctuating, uncontrolled temperature (unknown) (no (unknown) (unknown) Chloride 96 L (units ( unknown) date) unknown) (unknown) (no (unknown) (unknown) Chloride 97 L (units ( unknown) date) unknown) (unknown) (no (unknown) (unknown) Chloride (units (unkno wn) date) unknown) (unknown) (no (unknown) (unknown) Comment: Fatigue, (units (unknown) date) Hipfx-ORIF 04/06 unknown) (unknown) (no (unknown) (unknown) Comment: (units (unkno wn) date) unknown) (unknown) (no (unknown) (unknown) Consult to (units (unk nown) date) Occupational unknown) Therapy Evaluate + Treat (unknown) (no (unknown) (unknown) Consult to (units (unk nown) date) Physical Therapy unknown) Evaluate + Treat (unknown) (no (unknown) (unknown) Consult to Social (units (unknown) date) Services Routine unknown) (unknown) (no (unknown) (unknown) Consults: (units (unkn own) date) unknown) (unknown) (no (unknown) (unknown) Continue (units (unkno wn) date) outpatient dose of unknown) Lamictal.? She also uses diazepam at bedtime for (unknown) (no (unknown) (unknown) Continued (units (unkn own) date) unknown) (unknown) (no (unknown) (unknown) Creatinine 0.87 (units (unknown) date) unknown) (unknown) (no (unknown) (unknown) Creatinine 0.89 (units (unknown) date) unknown) (unknown) (no (unknown) (unknown) Creatinine (units (unk nown) date) unknown) (unknown) (no (unknown) (unknown) : 1950 (units (unknown) date) Acct:[id number] unknown) (unknown) (no (unknown) (unknown) DVT/VTE (units (unkno wn) date) prophylaxis: unknown) Lovenox and SCD (unknown) (no (unknown) (unknown) Date Patient (units (u nknown) date) Seen: 05/10/22 unknown) (unknown) (no (unknown) (unknown) Date of Service: (units (unknown) date) 05/10/22 unknown) (unknown) (no (unknown) (unknown) Date of (units (unkno wn) date) admission: unknown) (unknown) (no (unknown) (unknown) Discharge Data (units (unknown) date) unknown) (unknown) (no (unknown) (unknown) Discharge Date: (units (unknown) date) 05/10/22 unknown) (unknown) (no (unknown) (unknown) Discharge (units [...] date) provider: unknown) (unknown) (no (unknown) (unknown) Discontinued (units (u nknown) date) unknown) (unknown) (no (unknown) (unknown) Disposition: (units (u nknown) date) Patient admitted unknown) for observation expected length of stay less than (unknown) (no (unknown) (unknown) Eos # (Auto) 100 (units (unknown) date) unknown) (unknown) (no (unknown) (unknown) Eos # (Auto) (units (u nknown) date) unknown) (unknown) (no (unknown) (unknown) Eos % (Auto) 1.0 (units (unknown) date) L unknown) (unknown) (no (unknown) (unknown) Eos % (Auto) (units (u nknown) date) unknown) (unknown) (no (unknown) (unknown) Estimated GFR > (units (unknown) date) 60 unknown) (unknown) (no (unknown) (unknown) Estimated GFR (units ( unknown) date) unknown) (unknown) (no (unknown) (unknown) Carlos for ?too (units (unknown) date) bad valves and unknown) aortic aneurysm?.? After TX metoprolol 50 mg (unknown) (no (unknown) (unknown) Exam Narrative: (units (unknown) date) unknown) (unknown) (no (unknown) (unknown) Exam (units (unkno wn) date) unknown) (unknown) (no (unknown) (unknown) Family History (units (unknown) date) (Reviewed 05/10/22 unknown) @ 02:26 by MARGE Parikh) (unknown) (no (unknown) (unknown) Father No (units (unkn own) date) problems noted. unknown) (unknown) (no (unknown) (unknown) Fibromyalgia (units (u nknown) date) unknown) (unknown) (no (unknown) (unknown) Follow (units (unkno wn) date) up/Referrals: unknown) (unknown) (no (unknown) (unknown) Free T4 1.74 (units (u nknown) date) unknown) (unknown) (no (unknown) (unknown) Free T4 (units (unkno wn) date) unknown) (unknown) (no (unknown) (unknown) General: Patient (units (unknown) date) is a thin frail unknown) appearing elderly female in no distress at (unknown) (no (unknown) (unknown) Globulin 3.3 (units (u nknown) date) unknown) (unknown) (no (unknown) (unknown) Globulin (units (unkno wn) date) unknown) (unknown) (no (unknown) (unknown) Glucose 103 (units (un known) date) unknown) (unknown) (no (unknown) (unknown) Glucose 97 (units (unk nown) date) unknown) (unknown) (no (unknown) (unknown) Glucose (units (unkno wn) date) unknown) (unknown) (no (unknown) (unknown) HEENT: (units (unkno wn) date) Normocephalic, unknown) atraumatic, extraocular muscles intact, oral pharynx is (unknown) (no (unknown) (unknown) Hct 42.9 (units (unkno wn) date) unknown) (unknown) (no (unknown) (unknown) Hct (units (unkno wn) date) unknown) (unknown) (no (unknown) (unknown) Hgb 14.2 (units (unkno wn) date) unknown) (unknown) (no (unknown) (unknown) Hgb (units (unkno wn) date) unknown) (unknown) (no (unknown) (unknown) History of (units (unk nown) date) Present Illness unknown) (unknown) (no (unknown) (unknown) Hospital Course (units (unknown) date) unknown) (unknown) (no (unknown) (unknown) Hypertension (units (u nknown) date) unknown) (unknown) (no (unknown) (unknown) Hypothyroidism (units (unknown) date) unknown) (unknown) (no (unknown) (unknown) I confirmed that (units (unknown) date) the patient's unknown) advanced care plan is present, Code status is (unknown) (no (unknown) (unknown) I have personally (units (unknown) date) reviewed patient's unknown) chart notes from PCP, specialists, (unknown) (no (unknown) (unknown) I have utilized (units (unknown) date) all available unknown) immediate resources to obtain, update, or review (unknown) (no (unknown) (unknown) INR 1.2 (units (unkno wn) date) unknown) (unknown) (no (unknown) (unknown) INR (units (unkno wn) date) unknown) (unknown) (no (unknown) (unknown) Instructions: DI (units (unknown) date) for Bradycardia unknown) (unknown) (no (unknown) (unknown) [facility] (units (unknown) date) [address] unknown) [place] [address] (unknown) (no (unknown) (unknown) Laboratory (units (unk nown) date) Results - last unknown) hr (unknown) (no (unknown) (unknown) Labs (units (unkno wn) date) unknown) (unknown) (no (unknown) (unknown) Labs: (units (unkno wn) date) unknown) (unknown) (no (unknown) (unknown) Duncan Rock is (units (unknown) date) a 72-year-old unknown) 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 (unknown) (no (unknown) (unknown) Lipase 152 (units (unk nown) date) unknown) (unknown) (no (unknown) (unknown) Lipase (units (unkno wn) date) unknown) (unknown) (no (unknown) (unknown) Lungs: (units (unkno wn) date) Auscultation of unknown) all lung barney are clear without adventitious sounds, (unknown) (no (unknown) (unknown) Darrell Cottrell, (units (unknown) date) [Primary Care unknown) Provider] - 05/24/22 2:30 pm (appt:05/24 @ 2:30 (unknown) (no (unknown) (unknown) Lymph # (Auto) (units (unknown) date) 1700 unknown) (unknown) (no (unknown) (unknown) Lymph # (Auto) (units (unknown) date) unknown) (unknown) (no (unknown) (unknown) Lymph % (Auto) (units (unknown) date) 18.2 L unknown) (unknown) (no (unknown) (unknown) Lymph % (Auto) (units (unknown) date) unknown) (unknown) (no (unknown) (unknown) MCH 28.0 (units (unkno wn) date) unknown) (unknown) (no (unknown) (unknown) MCH (units (unkno wn) date) unknown) (unknown) (no (unknown) (unknown) MCHC 33.0 (units (unkn own) date) unknown) (unknown) (no (unknown) (unknown) MCHC (units (unkno wn) date) unknown) (unknown) (no (unknown) (unknown) MCV 84.9 (units (unkno wn) date) unknown) (unknown) (no (unknown) (unknown) MCV (units (unkno wn) date) unknown) (unknown) (no (unknown) (unknown) Magnesium 1.9 (units ( unknown) date) unknown) (unknown) (no (unknown) (unknown) Magnesium (units (unkn own) date) unknown) (unknown) (no (unknown) (unknown) Heraclio Mckeon, (units (unknown) date) DO unknown) (unknown) (no (unknown) (unknown) Measuring 6.4 (units ( unknown) date) cm.? She will need unknown) close follow-up.? She is on metoprolol for (unknown) (no (unknown) (unknown) Medical History (units (unknown) date) (Reviewed 05/10/22 unknown) @ 02:25 by DAINA Parikh) (unknown) (no (unknown) (unknown) Mobile # (Auto) 700 (units (unknown) date) unknown) (unknown) (no (unknown) (unknown) Mobile # (Auto) (units ( unknown) date) unknown) (unknown) (no (unknown) (unknown) Mobile % (Auto) 7.7 (units (unknown) date) unknown) (unknown) (no (unknown) (unknown) Mobile % (Auto) (units ( unknown) date) unknown) (unknown) (no (unknown) (unknown) Mother TIA (units (unk nown) date) (transient unknown) ischemic attack) (unknown) (no (unknown) (unknown) Musculoskeletal: (units (unknown) date) Muscle strength unknown) and tone are equal within normal limits, no (unknown) (no (unknown) (unknown) Myocardial (units (unk nown) date) infarction unknown) (unknown) (no (unknown) (unknown) NT-Pro-B (units (unkno wn) date) Natriuret Pep 6090 unknown) H (unknown) (no (unknown) (unknown) NT-Pro-B (units (unkno wn) date) Natriuret Pep unknown) (unknown) (no (unknown) (unknown) Narrative (units (unkn own) date) unknown) (unknown) (no (unknown) (unknown) Narrative: (units (unk nown) date) unknown) (unknown) (no (unknown) (unknown) Negative for JVD (units (unknown) date) unknown) (unknown) (no (unknown) (unknown) Neuro: Alert and (units (unknown) date) orientated x3, unknown) moves all extremities, sensation to touch (unknown) (no (unknown) (unknown) Neut # (Auto) (units ( unknown) date) 6800 unknown) (unknown) (no (unknown) (unknown) Neut # (Auto) (units ( unknown) date) unknown) (unknown) (no (unknown) (unknown) Neut % (Auto) (units ( unknown) date) 72.2 unknown) (unknown) (no (unknown) (unknown) Neut % (Auto) (units ( unknown) date) unknown) (unknown) (no (unknown) (unknown) Objective (units (unkn own) date) unknown) (unknown) (no (unknown) (unknown) On admit patient (units (unknown) date) denies chest pain unknown) + SOB at rest, headache, changes in vision, (unknown) (no (unknown) (unknown) Oxygen Delivery (units (unknown) date) Method Room Air unknown) (unknown) (no (unknown) (unknown) Oxygen Flow Rate (units (unknown) date) 0 unknown) (unknown) (no (unknown) (unknown) PFSH (units (unkno wn) date) unknown) (unknown) (no (unknown) (unknown) PT 13.5 H (units (unkn own) date) unknown) (unknown) (no (unknown) (unknown) PT (units (unkno wn) date) unknown) (unknown) (no (unknown) (unknown) Patient (units (unkno wn) date) Disposition: Home unknown) (unknown) (no (unknown) (unknown) Patient: (units (unkno wn) date) Duncan Rock unknown) MR#: [id number] (unknown) (no (unknown) (unknown) Physician (units (unkn own) date) Instructions: unknown) Evaluate and Treat (unknown) (no (unknown) (unknown) Physician (units (unkn own) date) Instructions: unknown) Evaluate and treat (unknown) (no (unknown) (unknown) Plt Count 328 (units ( unknown) date) unknown) (unknown) (no (unknown) (unknown) Plt Count (units (unkn own) date) unknown) (unknown) (no (unknown) (unknown) Potassium 4.1 (units ( unknown) date) unknown) (unknown) (no (unknown) (unknown) Potassium 4.4 (units ( unknown) date) unknown) (unknown) (no (unknown) (unknown) Potassium (units (unkn own) date) unknown) (unknown) (no (unknown) (unknown) Prescriptions: (units [...] Land unknown) partner (unknown) (no (unknown) (unknown) Psych: Patient (units (unknown) date) has a well-kept unknown) appearance, appropriate affect, mental status (unknown) (no (unknown) (unknown) Pulse Oximetry 98 (units (unknown) date) unknown) (unknown) (no (unknown) (unknown) Pulse Rate 43 L (units (unknown) date) unknown) (unknown) (no (unknown) (unknown) RBC 5.06 (units (unkno wn) date) unknown) (unknown) (no (unknown) (unknown) RBC (units (unkno wn) date) unknown) (unknown) (no (unknown) (unknown) RDW 15.0 H (units (unk nown) date) unknown) (unknown) (no (unknown) (unknown) RDW (units (unkno wn) date) unknown) (unknown) (no (unknown) (unknown) Respiratory Rate (units (unknown) date) 42 H unknown) (unknown) (no (unknown) (unknown) Restrictive lung (units (unknown) date) disease unknown) (unknown) (no (unknown) (unknown) Darrell Cottrell, (units (unknown) date) unknown) (unknown) (no (unknown) (unknown) Rx Instructions: (units (unknown) date) unknown) (unknown) (no (unknown) (unknown) SARS-CoV-2 (PCR) (units (unknown) date) Negative unknown) (unknown) (no (unknown) (unknown) SARS-CoV-2 (PCR) (units (unknown) date) unknown) (unknown) (no (unknown) (unknown) She is not on any (units (unknown) date) outpatient unknown) medications or inhalers. (unknown) (no (unknown) (unknown) Signed By: (units (unk nown) date) unknown) (unknown) (no (unknown) (unknown) Skin: Warm dry (units (unknown) date) and intact without unknown) rashes, ulcerations or petechiae. (unknown) (no (unknown) (unknown) Smoking Status: (units [...] wn) date) unknown) (unknown) (no (unknown) (unknown) Stand Alone (units (un known) date) Forms: Patient unknown) Portal/API, Stroke Signs + Symptoms (unknown) (no (unknown) (unknown) Status post hip (units (unknown) date) surgery unknown) (unknown) (no (unknown) (unknown) Summary (units (unkno wn) date) unknown) (unknown) (no (unknown) (unknown) Surgical History (units (unknown) date) (Reviewed 05/10/22 unknown) @ 02:25 by DAINA Parikh) (unknown) (no (unknown) (unknown) TSH 5.89 H (units (unk nown) date) unknown) (unknown) (no (unknown) (unknown) TSH (units (unkno wn) date) unknown) (unknown) (no (unknown) (unknown) Takes 2 tablets (units (unknown) date) daily unknown) (unknown) (no (unknown) (unknown) Temperature 97.6 (units (unknown) date) F unknown) (unknown) (no (unknown) (unknown) Time Patient (units (u nknown) date) Seen: 12:00 unknown) (unknown) (no (unknown) (unknown) Time Spent with (units (unknown) date) Patient unknown) (unknown) (no (unknown) (unknown) Time spent: (units (un known) date) Greater than 30 unknown) minutes (unknown) (no (unknown) (unknown) Total Bilirubin (units (unknown) date) 0.8 unknown) (unknown) (no (unknown) (unknown) Total Bilirubin (units (unknown) date) unknown) (unknown) (no (unknown) (unknown) Total Creatine (units (unknown) date) Kinase 44 unknown) (unknown) (no (unknown) (unknown) Total Creatine (units (unknown) date) Kinase unknown) (unknown) (no (unknown) (unknown) Total Protein 7.7 (units (unknown) date) unknown) (unknown) (no (unknown) (unknown) Total Protein (units ( unknown) date) unknown) (unknown) (no (unknown) (unknown) Troponin I 0.013 (units (unknown) date) 0.014 unknown) (unknown) (no (unknown) (unknown) Troponin I 0.018 (units (unknown) date) unknown) (unknown) (no (unknown) (unknown) Troponin I (units (unk nown) date) unknown) (unknown) (no (unknown) (unknown) Visit (units (unkno wn) date) Report/Discharge unknown) Packet (unknown) (no (unknown) (unknown) Vital Signs (units (un known) date) unknown) (unknown) (no (unknown) (unknown) WBC 9.4 (units (unkno wn) date) unknown) (unknown) (no (unknown) (unknown) WBC (units (unkno wn) date) unknown) (unknown) (no (unknown) (unknown) [Embedded Image (units (unknown) date) Not Available] unknown) (unknown) (no (unknown) (unknown) abnormalities (units ( unknown) date) prolonged QTC 494 unknown) without ST or T-wave changes. Last echo 10/05 (unknown) (no (unknown) (unknown) alcohol intake: (units (unknown) date) current unknown) (unknown) (no (unknown) (unknown) angina/dyspnea. (units (unknown) date) Once bradycardia unknown) can be resolved the patient can be seen (unknown) (no (unknown) (unknown) approximately 1 (units (unknown) date) week ago which was unknown) found Dr. Mckeon to have been completed on (unknown) (no (unknown) (unknown) are present in (units (unknown) date) all 4 quadrants unknown) without guarding or rebound, no CVA tenderness. (unknown) (no (unknown) (unknown) aspirin 81 mg (units ( unknown) date) Tablet,Delayed unknown) Release (Dr/Ec) (unknown) (no (unknown) (unknown) attitude thought (units (unknown) date) context and unknown) judgment are appropriate for age. (unknown) (no (unknown) (unknown) b.i.d. and (units (unk nown) date) complains of low unknown) energy with exertional angina/shortness of breath (unknown) (no (unknown) (unknown) b.i.d. initiated (units (unknown) date) and complains of unknown) low energy with exertional angina/shortness of (unknown) (no (unknown) (unknown) blood pressure (units (unknown) date) control. unknown) (unknown) (no (unknown) (unknown) bradycardia and (units (unknown) date) that she may need unknown) to be tapered back on her pain medications-a (unknown) (no (unknown) (unknown) breath,and (units (unk nown) date) bradycardia. unknown) Patient has sustained bradycardia in ED and on floor in (unknown) (no (unknown) (unknown) call safety and health manager (units (unknown) date) recommended unknown) decreasing the metoprolol dose by half and adding (unknown) (no (unknown) (unknown) cardiac demand (units (unknown) date) ischemia. unknown) (unknown) (no (unknown) (unknown) changes, (units (unkno wn) date) constipation, unknown) incontinence, melena, rashes, recent illness with the (unknown) (no (unknown) (unknown) chills, cough, (units (unknown) date) recent exposure to unknown) illness, abdominal pain, nausea, vomiting, (unknown) (no (unknown) (unknown) cholecalciferol (units (unknown) date) (vitamin D3) 50 unknown) mcg (2,000 unit) Tablet (unknown) (no (unknown) (unknown) chronic, present (units (unknown) date) on unknown) admission-patient is stable and in no distress (unknown) (no (unknown) (unknown) clear and mucous (units (unknown) date) membranes are unknown) moist. Neck is supple and symmetric, trachea is (unknown) (no (unknown) (unknown) clearance 42, PT (units (unknown) date) 13.5 although INR unknown) stable 1.2 PTT 50, troponin 0.018, COVID is (unknown) (no (unknown) (unknown) continued in the (units (unknown) date) 40s throughout the unknown) night. Metoprolol (unknown) (no (unknown) (unknown) decreasing the (units (unknown) date) metoprolol dose by unknown) half and adding 2.5 amlodipine, and repeating (unknown) (no (unknown) (unknown) deformity, (units (unk nown) date) crepitus, unknown) effusions, cyanosis, clubbing or edema present. Full range (unknown) (no (unknown) (unknown) diagnostic (units (unk nown) date) imaging, and unknown) laboratory results. (unknown) (no (unknown) (unknown) diazepam [Valium] (units (unknown) date) 10 mg Tablet unknown) (unknown) (no (unknown) (unknown) difficulty (units (unk nown) date) swallowing, speech unknown) impairment, weakness, numbness, tingling, (unknown) (no (unknown) (unknown) difficulty with (units (unknown) date) ambulation, recent unknown) falls, head injury, LOC, fever, body aches, (unknown) (no (unknown) (unknown) discussion for (units (unknown) date) follow-up with unknown) Cardiology and PCP (unknown) (no (unknown) (unknown) documented and/or (units (unknown) date) surrogate decision unknown) maker is listed in the patient's medical (unknown) (no (unknown) (unknown) dramatically (units (u nknown) date) decreasing her unknown) activity level. Her cardiology office today advised (unknown) (no (unknown) (unknown) due to (units (unkno wn) date) bradycardia, unknown) exertional angina/dyspnea. (unknown) (no (unknown) (unknown) echo, with urgent (units (unknown) date) follow-up in their unknown) clinic. Patient admitted for observation (unknown) (no (unknown) (unknown) emergently by (units (unknown) date) [facility] unknown) at [facility] for cardiac catheterization (unknown) (no (unknown) (unknown) epilepsy, NSTEMI (units (unknown) date) 03/07-pending unknown) cardiac follow-up/catheter ization, and left hip (unknown) (no (unknown) (unknown) exception of (units (u nknown) date) those noted unknown) above.. (unknown) (no (unknown) (unknown) fatigue. (units (unkno wn) date) unknown) (unknown) (no (unknown) (unknown) fentanyl 75 (units (un known) date) mcg/hr patch 72 unknown) hour (unknown) (no (unknown) (unknown) fibrosis, HTN, (units ( unknown) date) hypothyroid, unknown) fibromyalgia, ascending aortic aneurysm, depression, (unknown) (no (unknown) (unknown) fibrosis, HTN, (units (unknown) date) hypothyroid, unknown) fibromyalgia, chronic pain medication, meth use or (unknown) (no (unknown) (unknown) fluoxetine (units (unk nown) date) [Prozac] 40 MG unknown) capsule (unknown) (no (unknown) (unknown) follow-up (units ( unknown) date) [facility] unknown) for cardiac catheterization. (unknown) (no (unknown) (unknown) follow-up with (units (unknown) date) PCP unknown) (unknown) (no (unknown) (unknown) for ?too bad (units (u nknown) date) valves and aortic unknown) aneurysm?.? After TX with metoprolol 50 mg (unknown) (no (unknown) (unknown) fracture ORIF (units ( unknown) date) with ARF unknown) 03/24/2022??Follow ed by Cardiology at [facility] (unknown) (no (unknown) (unknown) furosemide 20 mg (units (unknown) date) Tablet unknown) (unknown) (no (unknown) (unknown) history of (units (unkn own) date) epilepsy, NSTEMI unknown) 03/07-pending cardiac follow-up/catheter ization, and (unknown) (no (unknown) (unknown) household (units (unkn own) date) members: unknown) significant other (unknown) (no (unknown) (unknown) hx , regular ETOH (units (unknown) date) use, ascending unknown) aortic aneurysm, depression, history of (unknown) (no (unknown) (unknown) in the ED where (units (unknown) date) patient is being unknown) followed on-call safety and health manager recommended (unknown) (no (unknown) (unknown) intact, no gross (units (unknown) date) deficits noted of unknown) cranial nerves. (unknown) (no (unknown) (unknown) lamotrigine (units (un known) date) [Lamictal] 100 mg unknown) Tablet (unknown) (no (unknown) (unknown) left hip fracture (units (unknown) date) ORIF with ARF unknown) 03/24/2022??Follow ed by Cardiology at [place] (unknown) (no (unknown) (unknown) levothyroxine 100 (units (unknown) date) mcg Capsule unknown) (unknown) (no (unknown) (unknown) metoprolol (units (unk nown) date) tartrate 50 mg unknown) Tablet (unknown) (no (unknown) (unknown) midline, no (units (un known) date) adenopathy, no unknown) thyroid enlargement, nontender, no masses palpated. (unknown) (no (unknown) (unknown) negative. (units (unkn own) date) Patient's EKG unknown) sinus Yves rate of 44 LVH with repolarization (unknown) (no (unknown) (unknown) of motion intact (units (unknown) date) radial and pedal unknown) pulses are normal. (unknown) (no (unknown) (unknown) orthopnea, lower (units (unknown) date) extremity edema, unknown) headaches but overall general malaise and (unknown) (no (unknown) (unknown) outpatient. (units (un known) date) -EMERGENT unknown) follow-up. (unknown) (no (unknown) (unknown) over last 24 (units (u nknown) date) hours chills and unknown) significantly increased fatigue which has been (unknown) (no (unknown) (unknown) oxycodone-acetami (units (unknown) date) nophen [Percocet] unknown) 5-325 mg Tablet (unknown) (no (unknown) (unknown) potassium (units (unkn own) date) chloride 20 mEq unknown) Tablet Extended Release (unknown) (no (unknown) (unknown) record. (units (unkno wn) date) unknown) (unknown) (no (unknown) (unknown) saturation 97% on (units (unknown) date) room air. CBC unknown) unremarkable, chloride 97, BUN 27, creatinine (unknown) (no (unknown) (unknown) she come in for (units (unknown) date) further unknown) evaluation.? She reports no overt fevers, cough, (unknown) (no (unknown) (unknown) sleep. (units (unkno wn) date) unknown) (unknown) (no (unknown) (unknown) substance use (units ( unknown) date) type: does not use unknown) (unknown) (no (unknown) (unknown) that resolves (units ( unknown) date) with nitroglycerin unknown) occurring more frequently, slow heart beat and (unknown) (no (unknown) (unknown) the 40s. Patient (units (unknown) date) admitted for unknown) observation due to bradycardia, exertional (unknown) (no (unknown) (unknown) the patient's (units ( unknown) date) current unknown) medications. (unknown) (no (unknown) (unknown) this time. (units (unk nown) date) unknown) (unknown) (no (unknown) (unknown) thoracic aorta (units (unknown) date) redemonstrated, unknown) enlarged heart. [facility] was consulted (unknown) (no (unknown) (unknown) urinary (units (unkno wn) date) incontinence/reten unknown) tion, dysuria, frequency, urgency, hematuria, bowel (unknown) (no (unknown) (unknown) vitamin B complex (units (unknown) date) Tablet unknown) (unknown) (no (unknown) (unknown) wheezes, rhonchi, (units (unknown) date) or rales. unknown) (unknown) (no (unknown) (unknown) with Dr Martinez (units (unknown) date) (Dr Cottrell is unknown) out of town) ) (unknown) (no (unknown) (unknown) with an EF 60 (units ( unknown) date) 65%. Chest x-ray unknown) demonstrated aneurysmal dilation ascending Result panel 250 (unknown) (no (unknown) (unknown) (no value) (units (unk nown) date) unknown) (unknown) (no (unknown) (unknown) (past 8 hours): (units (unknown) date) unknown) (unknown) (no (unknown) (unknown) - TSH 5.89 (units (unk nown) date) unknown) (unknown) (no (unknown) (unknown) -03/23/2022 admit: (units (unknown) date) Troponin was unknown) 0.050, down trending to 0.041.? It likely to be (unknown) (no (unknown) (unknown) -EKG sinus Yves (units (unknown) date) rate of 44 LVH unknown) with repolarization abnormalities prolonged QTC (unknown) (no (unknown) (unknown) -[facility] (units (unkno wn) date) cardiology was unknown) consulted in the ED where patient is being followed on (unknown) (no (unknown) (unknown) -Ordered BNP, (units ( unknown) date) TSH/Free T4 unknown) (unknown) (no (unknown) (unknown) -Ordered TSH/T$ (units (unknown) date) unknown) (unknown) (no (unknown) (unknown) -PT 13.5 although (units (unknown) date) INR stable 1.2 PTT unknown) 50 (unknown) (no (unknown) (unknown) -Patient takes (units (unknown) date) fentanyl 75 mcg Q unknown) 72 hours.? Percocet q.4-6 hours (unknown) (no (unknown) (unknown) -Recommend (units (unk nown) date) reaching out to Dr unknown) [facility] for fast tracking Cardiac cath as an (unknown) (no (unknown) (unknown) -change home dose (units (unknown) date) of 100 unknown) levothyroxine to 125mcg QD repeat tsh outpatient (unknown) (no (unknown) (unknown) -discussed with (units (unknown) date) patient my unknown) concerns regarding polypharmacy in relation to her (unknown) (no (unknown) (unknown) -echo 10/05 with (units (unknown) date) an EF 60 65%. unknown) (unknown) (no (unknown) (unknown) -initial troponin (units (unknown) date) 0.018 will trend unknown) x3 (unknown) (no (unknown) (unknown) -initiated (units (unk nown) date) amlodipine 2.5 unknown) q.day (unknown) (no (unknown) (unknown) -managed by (units (unknown) date) [facility] unknown) Cardiology (unknown) (no (unknown) (unknown) -metoprolol (units (un known) date) stopped due to unknown) bradycardia (unknown) (no (unknown) (unknown) -patient (units (unkno wn) date) verbalized that unknown) she had echo completed [facility] P[facility] (unknown) (no (unknown) (unknown) 04/27/2021-will (units (unknown) date) not repeat echo. unknown) (unknown) (no (unknown) (unknown) 05/09/22 05/09/22 (units (unknown) date) 05/09/22 unknown) (unknown) (no (unknown) (unknown) 05/09/22 21:59 (units (unknown) date) unknown) (unknown) (no (unknown) (unknown) 05/10/22 05/10/22 (units (unknown) date) 05/10/22 unknown) (unknown) (no (unknown) (unknown) 05/10/22 01:56 (units (unknown) date) unknown) (unknown) (no (unknown) (unknown) 05/10/22 02:04 (units (unknown) date) unknown) (unknown) (no (unknown) (unknown) 05/10/22 02:38 (units (unknown) date) unknown) (unknown) (no (unknown) (unknown) 05/10/22 05:47 (units (unknown) date) unknown) (unknown) (no (unknown) (unknown) 05/10/22 (units (unkno wn) date) unknown) (unknown) (no (unknown) (unknown) [id number] (units (unkno wn) date) unknown) (unknown) (no (unknown) (unknown) 02:13 05:47 05:47 (units (unknown) date) unknown) (unknown) (no (unknown) (unknown) 08:00 05/10/22 (units (unknown) date) unknown) (unknown) (no (unknown) (unknown) 08:00 (units (unkno wn) date) unknown) (unknown) (no (unknown) (unknown) 1 tab PO DAILY (units (unknown) date) unknown) (unknown) (no (unknown) (unknown) 1 tab PO Q6H PRN (units (unknown) date) (Reason: Pain unknown) (Scale Score 4-6)) (unknown) (no (unknown) (unknown) 1. Bradycardia, (units (unknown) date) with exertional unknown) angina/dyspnea, acute, present on admission (unknown) (no (unknown) (unknown) 10 mg PO BEDTIME (units (unknown) date) unknown) (unknown) (no (unknown) (unknown) 100 mcg PO DAILY (units (unknown) date) unknown) (unknown) (no (unknown) (unknown) 100 mg PO DAILY (units (unknown) date) unknown) (unknown) (no (unknown) (unknown) 2 midnights once (units (unknown) date) bradycardia has unknown) been resolved, patient to emergent outpatient (unknown) (no (unknown) (unknown) 2. History of (units ( unknown) date) recent NSTEMI, unknown) requiring cardiac catheterization, acute on (unknown) (no (unknown) (unknown) 2.5 amlodipine, (units (unknown) date) and repeating unknown) echo, with urgent follow-up in their clinic. (unknown) (no (unknown) (unknown) 20 meq PO DAILY (units (unknown) date) unknown) (unknown) (no (unknown) (unknown) 20 mg PO DAILY (units (unknown) date) unknown) (unknown) (no (unknown) (unknown) 21:59 21:59 21:59 (units (unknown) date) unknown) (unknown) (no (unknown) (unknown) 22:04 22:04 22:05 (units (unknown) date) unknown) (unknown) (no (unknown) (unknown) 3. 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 unknown) (unknown) (no (unknown) (unknown) 5. 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 Depression, (units (unknown) date) chronic, present unknown) on admission (unknown) (no (unknown) (unknown) 60 mg PO DAILY (units (unknown) date) Qty: 0 unknown) (unknown) (no (unknown) (unknown) 75 mcg (units (unkno wn) date) transdermal Q72H unknown) (unknown) (no (unknown) (unknown) 8. (units (unkno wn) date) Hypothyroidism, unknown) acquired, chronic, present on admission (unknown) (no (unknown) (unknown) 81 mg PO DAILY (units (unknown) date) unknown) (unknown) (no (unknown) (unknown) ALT 17 (units (unkno wn) date) unknown) (unknown) (no (unknown) (unknown) ALT (units (unkno wn) date) unknown) (unknown) (no (unknown) (unknown) APTT 50 H (units (unkn own) date) unknown) (unknown) (no (unknown) (unknown) APTT (units (unkno wn) date) unknown) (unknown) (no (unknown) (unknown) AST 26 (units (unkno wn) date) unknown) (unknown) (no (unknown) (unknown) AST (units (unkno wn) date) unknown) (unknown) (no (unknown) (unknown) Abdomen: Soft (units ( unknown) date) nontender, unknown) negative for organomegaly, or masses. Bowel sounds (unknown) (no (unknown) (unknown) Admit vitals temp (units (unknown) date) 98?, 116/68, unknown) continued bradycardia HR 41, tachypneic RR 42, O2 (unknown) (no (unknown) (unknown) Age/Sex: 72 / F (units (unknown) date) unknown) (unknown) (no (unknown) (unknown) Albumin 4.4 (units (un known) date) unknown) (unknown) (no (unknown) (unknown) Albumin (units (unkno wn) date) unknown) (unknown) (no (unknown) (unknown) Albumin/Globulin (units (unknown) date) Ratio 1.3 unknown) (unknown) (no (unknown) (unknown) Albumin/Globulin (units (unknown) date) Ratio unknown) (unknown) (no (unknown) (unknown) Alkaline (units (unkno wn) date) Phosphatase 109 unknown) (unknown) (no (unknown) (unknown) Alkaline (units (unkno wn) date) Phosphatase unknown) (unknown) (no (unknown) (unknown) Attending (units (unkn own) date) Provider: unknown) May Sloan (unknown) (no (unknown) (unknown) BUN 27 H (units (unkno wn) date) unknown) (unknown) (no (unknown) (unknown) BUN (units (unkno wn) date) unknown) (unknown) (no (unknown) (unknown) BUN/Creatinine (units (unknown) date) Ratio 30.3 H unknown) (unknown) (no (unknown) (unknown) BUN/Creatinine (units (unknown) date) Ratio 31.0 H unknown) (unknown) (no (unknown) (unknown) BUN/Creatinine (units (unknown) date) Ratio unknown) (unknown) (no (unknown) (unknown) Baso # (Auto) 100 (units (unknown) date) unknown) (unknown) (no (unknown) (unknown) Baso # (Auto) (units ( unknown) date) unknown) (unknown) (no (unknown) (unknown) Baso % (Auto) 0.9 (units (unknown) date) unknown) (unknown) (no (unknown) (unknown) Baso % (Auto) (units ( unknown) date) unknown) (unknown) (no (unknown) (unknown) Blood Pressure (units (unknown) date) 123/53 L unknown) (unknown) (no (unknown) (unknown) CK-MB [...] nown) date) unknown) (unknown) (no (unknown) (unknown) COVID (units (unkno wn) date) PCR:Negative unknown) (unknown) (no (unknown) (unknown) Calcium 9.2 (units (un known) date) unknown) (unknown) (no (unknown) (unknown) Calcium 9.4 (units (un known) date) unknown) (unknown) (no (unknown) (unknown) Calcium (units (unkno wn) date) unknown) (unknown) (no (unknown) (unknown) Carbon Dioxide 27 (units (unknown) date) unknown) (unknown) (no (unknown) (unknown) Carbon Dioxide 28 (units (unknown) date) unknown) (unknown) (no (unknown) (unknown) Carbon Dioxide (units (unknown) date) unknown) (unknown) (no (unknown) (unknown) Cardio: (units (unkno wn) date) Bradycardic rate unknown) and rhythm (unknown) (no (unknown) (unknown) Chest: no nasal (units (unknown) date) flaring, unknown) retractions, or tachypneic labored breathing. (unknown) (no (unknown) (unknown) Chief complaint: (units (unknown) date) heart is unknown) fluctuating, uncontrolled temperature (unknown) (no (unknown) (unknown) Chloride 96 L (units ( unknown) date) unknown) (unknown) (no (unknown) (unknown) Chloride 97 L (units ( unknown) date) unknown) (unknown) (no (unknown) (unknown) Chloride (units (unkno wn) date) unknown) (unknown) (no (unknown) (unknown) Comment: Fatigue, (units (unknown) date) Hipfx-ORIF 04/06 unknown) (unknown) (no (unknown) (unknown) Comment: (units (unkno wn) date) unknown) (unknown) (no (unknown) (unknown) Consult to (units (unk nown) date) Occupational unknown) Therapy Evaluate + Treat (unknown) (no (unknown) (unknown) Consult to (units (unk nown) date) Physical Therapy unknown) Evaluate + Treat (unknown) (no (unknown) (unknown) Consult to Social (units (unknown) date) Services Routine unknown) (unknown) (no (unknown) (unknown) Consults: (units (unkn own) date) unknown) (unknown) (no (unknown) (unknown) Continue (units (unkno wn) date) outpatient dose of unknown) Lamictal.? She also uses diazepam at bedtime for (unknown) (no (unknown) (unknown) Continued (units (unkn own) date) unknown) (unknown) (no (unknown) (unknown) Creatinine 0.87 (units (unknown) date) unknown) (unknown) (no (unknown) (unknown) Creatinine 0.89 (units (unknown) date) unknown) (unknown) (no (unknown) (unknown) Creatinine (units (unk nown) date) unknown) (unknown) (no (unknown) (unknown) : 1950 (units (unknown) date) Acct:[id number] unknown) (unknown) (no (unknown) (unknown) DVT/VTE (units (unkno wn) date) prophylaxis: unknown) Lovenox and SCD (unknown) (no (unknown) (unknown) Date Patient (units (u nknown) date) Seen: 05/10/22 unknown) (unknown) (no (unknown) (unknown) Date of Service: (units (unknown) date) 05/10/22 unknown) (unknown) (no (unknown) (unknown) Date of (units (unkno wn) date) admission: unknown) (unknown) (no (unknown) (unknown) Discharge Data (units (unknown) date) unknown) (unknown) (no (unknown) (unknown) Discharge Date: (units (unknown) date) 05/10/22 unknown) (unknown) (no (unknown) (unknown) Discharge (units [...] date) provider: unknown) (unknown) (no (unknown) (unknown) Discontinued (units (u nknown) date) unknown) (unknown) (no (unknown) (unknown) Disposition: (units (u nknown) date) Patient admitted unknown) for observation expected length of stay less than (unknown) (no (unknown) (unknown) Eos # (Auto) 100 (units (unknown) date) unknown) (unknown) (no (unknown) (unknown) Eos # (Auto) (units (u nknown) date) unknown) (unknown) (no (unknown) (unknown) Eos % (Auto) 1.0 (units (unknown) date) L unknown) (unknown) (no (unknown) (unknown) Eos % (Auto) (units (u nknown) date) unknown) (unknown) (no (unknown) (unknown) Estimated GFR > (units (unknown) date) 60 unknown) (unknown) (no (unknown) (unknown) Estimated GFR (units ( unknown) date) unknown) (unknown) (no (unknown) (unknown) [facility] for ?too (units (unknown) date) bad valves and unknown) aortic aneurysm?.? After TX metoprolol 50 mg (unknown) (no (unknown) (unknown) Exam Narrative: (units (unknown) date) unknown) (unknown) (no (unknown) (unknown) Exam (units (unkno wn) date) unknown) (unknown) (no (unknown) (unknown) Family History (units (unknown) date) (Reviewed 05/10/22 unknown) @ 02:26 by May Sloan [facility]) (unknown) (no (unknown) (unknown) Father No (units (unkn own) date) problems noted. unknown) (unknown) (no (unknown) (unknown) Fibromyalgia (units (u nknown) date) unknown) (unknown) (no (unknown) (unknown) Follow (units (unkno wn) date) up/Referrals: unknown) (unknown) (no (unknown) (unknown) Free T4 1.74 (units (u nknown) date) unknown) (unknown) (no (unknown) (unknown) Free T4 (units (unkno wn) date) unknown) (unknown) (no (unknown) (unknown) General: Patient (units (unknown) date) is a thin frail unknown) appearing elderly female in no distress at (unknown) (no (unknown) (unknown) Globulin 3.3 (units (u nknown) date) unknown) (unknown) (no (unknown) (unknown) Globulin (units (unkno wn) date) unknown) (unknown) (no (unknown) (unknown) Glucose 103 (units (un known) date) unknown) (unknown) (no (unknown) (unknown) Glucose 97 (units (unk nown) date) unknown) (unknown) (no (unknown) (unknown) Glucose (units (unkno wn) date) unknown) (unknown) (no (unknown) (unknown) HEENT: (units (unkno wn) date) Normocephalic, unknown) atraumatic, extraocular muscles intact, oral pharynx is (unknown) (no (unknown) (unknown) Hct 42.9 (units (unkno wn) date) unknown) (unknown) (no (unknown) (unknown) Hct (units (unkno wn) date) unknown) (unknown) (no (unknown) (unknown) Hgb 14.2 (units (unkno wn) date) unknown) (unknown) (no (unknown) (unknown) Hgb (units (unkno wn) date) unknown) (unknown) (no (unknown) (unknown) History of (units (unk nown) date) Present Illness unknown) (unknown) (no (unknown) (unknown) Hospital Course (units (unknown) date) unknown) (unknown) (no (unknown) (unknown) Hypertension (units (u nknown) date) unknown) (unknown) (no (unknown) (unknown) Hypothyroidism (units (unknown) date) unknown) (unknown) (no (unknown) (unknown) I confirmed that (units (unknown) date) the patient's unknown) advanced care plan is present, Code status is (unknown) (no (unknown) (unknown) I have personally (units (unknown) date) reviewed patient's unknown) chart notes from PCP, specialists, (unknown) (no (unknown) (unknown) I have utilized (units (unknown) date) all available unknown) immediate resources to obtain, update, or review (unknown) (no (unknown) (unknown) INR 1.2 (units (unkno wn) date) unknown) (unknown) (no (unknown) (unknown) INR (units (unkno wn) date) unknown) (unknown) (no (unknown) (unknown) Instructions: DI (units (unknown) date) for Bradycardia unknown) (unknown) (no (unknown) (unknown) [facility] (units (unknown) date) [address] unknown) [place] [address] (unknown) (no (unknown) (unknown) Laboratory (units (unk nown) date) Results - last 24 unknown) hr (unknown) (no (unknown) (unknown) Labs (units (unkno wn) date) unknown) (unknown) (no (unknown) (unknown) Labs: (units (unkno wn) date) unknown) (unknown) (no (unknown) (unknown) Duncan Rock is (units (unknown) date) a 72-year-old unknown) 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 (unknown) (no (unknown) (unknown) Lipase 152 (units (unk nown) date) unknown) (unknown) (no (unknown) (unknown) Lipase (units (unkno wn) date) unknown) (unknown) (no (unknown) (unknown) Lungs: (units (unkno wn) date) Auscultation of unknown) all lung barney are clear without adventitious sounds, (unknown) (no (unknown) (unknown) Darrell Cottrell, (units (unknown) date) [Primary Care unknown) Provider] - 05/24/22 2:30 pm (appt:05/24 @ 2:30 (unknown) (no (unknown) (unknown) Lymph # (Auto) (units (unknown) date) 1700 unknown) (unknown) (no (unknown) (unknown) Lymph # (Auto) (units (unknown) date) unknown) (unknown) (no (unknown) (unknown) Lymph % (Auto) (units (unknown) date) 18.2 L unknown) (unknown) (no (unknown) (unknown) Lymph % (Auto) (units (unknown) date) unknown) (unknown) (no (unknown) (unknown) MCH 28.0 (units (unkno wn) date) unknown) (unknown) (no (unknown) (unknown) MCH (units (unkno wn) date) unknown) (unknown) (no (unknown) (unknown) MCHC 33.0 (units (unkn own) date) unknown) (unknown) (no (unknown) (unknown) MCHC (units (unkno wn) date) unknown) (unknown) (no (unknown) (unknown) MCV 84.9 (units (unkno wn) date) unknown) (unknown) (no (unknown) (unknown) MCV (units (unkno wn) date) unknown) (unknown) (no (unknown) (unknown) Magnesium 1.9 (units ( unknown) date) unknown) (unknown) (no (unknown) (unknown) Magnesium (units (unkn own) date) unknown) (unknown) (no (unknown) (unknown) Heraclio Mckeon, (units (unknown) date) DO unknown) (unknown) (no (unknown) (unknown) Measuring 6.4 (units ( unknown) date) cm.? She will need unknown) close follow-up.? She is on metoprolol for (unknown) (no (unknown) (unknown) Medical History (units (unknown) date) (Reviewed 05/10/22 unknown) @ 02:25 by May Sloan, [employer]PRENTICE-BC) (unknown) (no (unknown) (unknown) Mobile # (Auto) 700 (units (unknown) date) unknown) (unknown) (no (unknown) (unknown) Mobile # (Auto) (units ( unknown) date) unknown) (unknown) (no (unknown) (unknown) Mobile % (Auto) 7.7 (units (unknown) date) unknown) (unknown) (no (unknown) (unknown) Mobile % (Auto) (units ( unknown) date) unknown) (unknown) (no (unknown) (unknown) Mother TIA (units (unk nown) date) (transient unknown) ischemic attack) (unknown) (no (unknown) (unknown) Musculoskeletal: (units (unknown) date) Muscle strength unknown) and tone are equal within normal limits, no (unknown) (no (unknown) (unknown) Myocardial (units (unk nown) date) infarction unknown) (unknown) (no (unknown) (unknown) NT-Pro-B (units (unkno wn) date) Natriuret Pep 6090 unknown) H (unknown) (no (unknown) (unknown) NT-Pro-B (units (unkno wn) date) Natriuret Pep unknown) (unknown) (no (unknown) (unknown) Narrative (units (unkn own) date) unknown) (unknown) (no (unknown) (unknown) Narrative: (units (unk nown) date) unknown) (unknown) (no (unknown) (unknown) Negative for JVD (units (unknown) date) unknown) (unknown) (no (unknown) (unknown) Neuro: Alert and (units (unknown) date) orientated x3, unknown) moves all extremities, sensation to touch (unknown) (no (unknown) (unknown) Neut # (Auto) (units ( unknown) date) 6800 unknown) (unknown) (no (unknown) (unknown) Neut # (Auto) (units ( unknown) date) unknown) (unknown) (no (unknown) (unknown) Neut % (Auto) (units ( unknown) date) 72.2 unknown) (unknown) (no (unknown) (unknown) Neut % (Auto) (units ( unknown) date) unknown) (unknown) (no (unknown) (unknown) Objective (units (unkn own) date) unknown) (unknown) (no (unknown) (unknown) On admit patient (units (unknown) date) denies chest pain unknown) + SOB at rest, headache, changes in vision, (unknown) (no (unknown) (unknown) Oxygen Delivery (units (unknown) date) Method Room Air unknown) (unknown) (no (unknown) (unknown) Oxygen Flow Rate (units (unknown) date) 0 unknown) (unknown) (no (unknown) (unknown) PFSH (units (unkno wn) date) unknown) (unknown) (no (unknown) (unknown) PT 13.5 H (units (unkn own) date) unknown) (unknown) (no (unknown) (unknown) PT (units (unkno wn) date) unknown) (unknown) (no (unknown) (unknown) Patient (units (unkno wn) date) Disposition: Home unknown) (unknown) (no (unknown) (unknown) Patient: (units (unkno wn) date) [place] unknown) MR#: [id number] (unknown) (no (unknown) (unknown) Physician (units (unkn own) date) Instructions: unknown) Evaluate and Treat (unknown) (no (unknown) (unknown) Physician (units (unkn own) date) Instructions: unknown) Evaluate and treat (unknown) (no (unknown) (unknown) Plt Count 328 (units ( unknown) date) unknown) (unknown) (no (unknown) (unknown) Plt Count (units (unkn own) date) unknown) (unknown) (no (unknown) (unknown) Potassium 4.1 (units ( unknown) date) unknown) (unknown) (no (unknown) (unknown) Potassium 4.4 (units ( unknown) date) unknown) (unknown) (no (unknown) (unknown) Potassium (units (unkn own) date) unknown) (unknown) (no (unknown) (unknown) Prescriptions: (units [...] Land unknown) partner (unknown) (no (unknown) (unknown) Psych: Patient (units (unknown) date) has a well-kept unknown) appearance, appropriate affect, mental status (unknown) (no (unknown) (unknown) Pulse Oximetry 98 (units (unknown) date) unknown) (unknown) (no (unknown) (unknown) Pulse Rate 43 L (units (unknown) date) unknown) (unknown) (no (unknown) (unknown) RBC 5.06 (units (unkno wn) date) unknown) (unknown) (no (unknown) (unknown) RBC (units (unkno wn) date) unknown) (unknown) (no (unknown) (unknown) RDW 15.0 H (units (unk nown) date) unknown) (unknown) (no (unknown) (unknown) RDW (units (unkno wn) date) unknown) (unknown) (no (unknown) (unknown) Respiratory Rate (units (unknown) date) 42 H unknown) (unknown) (no (unknown) (unknown) Restrictive lung (units (unknown) date) disease unknown) (unknown) (no (unknown) (unknown) Darrell Cottrell, (units (unknown) date) MD unknown) (unknown) (no (unknown) (unknown) Rx Instructions: (units (unknown) date) unknown) (unknown) (no (unknown) (unknown) SARS-CoV-2 (PCR) (units (unknown) date) Negative unknown) (unknown) (no (unknown) (unknown) SARS-CoV-2 (PCR) (units (unknown) date) unknown) (unknown) (no (unknown) (unknown) She is not on any (units (unknown) date) outpatient unknown) medications or inhalers. (unknown) (no (unknown) (unknown) Signed By: (units (unk nown) date) unknown) (unknown) (no (unknown) (unknown) Skin: Warm dry (units (unknown) date) and intact without unknown) rashes, ulcerations or petechiae. (unknown) (no (unknown) (unknown) Smoking Status: (units [...] wn) date) unknown) (unknown) (no (unknown) (unknown) Stand Alone (units (un known) date) Forms: Patient unknown) Portal/API, Stroke Signs + Symptoms (unknown) (no (unknown) (unknown) Status post hip (units (unknown) date) surgery unknown) (unknown) (no (unknown) (unknown) Summary (units (unkno wn) date) unknown) (unknown) (no (unknown) (unknown) Surgical History (units (unknown) date) (Reviewed 05/10/22 unknown) @ 02:25 by May Sloan [facility]) (unknown) (no (unknown) (unknown) TSH 5.89 H (units (unk nown) date) unknown) (unknown) (no (unknown) (unknown) TSH (units (unkno wn) date) unknown) (unknown) (no (unknown) (unknown) Takes 2 tablets (units (unknown) date) daily unknown) (unknown) (no (unknown) (unknown) Temperature 97.6 (units (unknown) date) F unknown) (unknown) (no (unknown) (unknown) Time Patient (units (u nknown) date) Seen: 12:00 unknown) (unknown) (no (unknown) (unknown) Time Spent with (units (unknown) date) Patient unknown) (unknown) (no (unknown) (unknown) Time spent: (units (un known) date) Greater than 30 unknown) minutes (unknown) (no (unknown) (unknown) Total Bilirubin (units (unknown) date) 0.8 unknown) (unknown) (no (unknown) (unknown) Total Bilirubin (units (unknown) date) unknown) (unknown) (no (unknown) (unknown) Total Creatine (units (unknown) date) Kinase 44 unknown) (unknown) (no (unknown) (unknown) Total Creatine (units (unknown) date) Kinase unknown) (unknown) (no (unknown) (unknown) Total Protein 7.7 (units (unknown) date) unknown) (unknown) (no (unknown) (unknown) Total Protein (units ( unknown) date) unknown) (unknown) (no (unknown) (unknown) Troponin I 0.013 (units (unknown) date) 0.014 unknown) (unknown) (no (unknown) (unknown) Troponin I 0.018 (units (unknown) date) unknown) (unknown) (no (unknown) (unknown) Troponin I (units (unk nown) date) unknown) (unknown) (no (unknown) (unknown) Visit (units (unkno wn) date) Report/Discharge unknown) Packet (unknown) (no (unknown) (unknown) Vital Signs (units (un known) date) unknown) (unknown) (no (unknown) (unknown) WBC 9.4 (units (unkno wn) date) unknown) (unknown) (no (unknown) (unknown) WBC (units (unkno wn) date) unknown) (unknown) (no (unknown) (unknown) [Embedded Image (units (unknown) date) Not Available] unknown) (unknown) (no (unknown) (unknown) abnormalities (units ( unknown) date) prolonged QTC 494 unknown) without ST or T-wave changes. Last echo 10/05 (unknown) (no (unknown) (unknown) alcohol intake: (units (unknown) date) current unknown) (unknown) (no (unknown) (unknown) angina/dyspnea. (units (unknown) date) Once bradycardia unknown) can be resolved the patient can be seen (unknown) (no (unknown) (unknown) approximately 1 (units (unknown) date) week ago which was unknown) found Dr. Mckeon to have been completed on (unknown) (no (unknown) (unknown) are present in (units (unknown) date) all 4 quadrants unknown) without guarding or rebound, no CVA tenderness. (unknown) (no (unknown) (unknown) aspirin 81 mg (units ( unknown) date) Tablet,Delayed unknown) Release (Dr/Ec) (unknown) (no (unknown) (unknown) attitude thought (units (unknown) date) context and unknown) judgment are appropriate for age. (unknown) (no (unknown) (unknown) b.i.d. and (units (unk nown) date) complains of low unknown) energy with exertional angina/shortness of breath (unknown) (no (unknown) (unknown) b.i.d. initiated (units (unknown) date) and complains of unknown) low energy with exertional angina/shortness of (unknown) (no (unknown) (unknown) blood pressure (units (unknown) date) control. unknown) (unknown) (no (unknown) (unknown) bradycardia and (units (unknown) date) that she may need unknown) to be tapered back on her pain medications-a (unknown) (no (unknown) (unknown) breath,and (units (unk nown) date) bradycardia. unknown) Patient has sustained bradycardia in ED and on floor in (unknown) (no (unknown) (unknown) call safety and health manager (units (unknown) date) recommended unknown) decreasing the metoprolol dose by half and adding (unknown) (no (unknown) (unknown) cardiac demand (units (unknown) date) ischemia. unknown) (unknown) (no (unknown) (unknown) changes, (units (unkno wn) date) constipation, unknown) incontinence, melena, rashes, recent illness with the (unknown) (no (unknown) (unknown) chills, cough, (units (unknown) date) recent exposure to unknown) illness, abdominal pain, nausea, vomiting, (unknown) (no (unknown) (unknown) cholecalciferol (units (unknown) date) (vitamin D3) 50 unknown) mcg (2,000 unit) Tablet (unknown) (no (unknown) (unknown) chronic, present (units (unknown) date) on unknown) admission-patient is stable and in no distress (unknown) (no (unknown) (unknown) clear and mucous (units (unknown) date) membranes are unknown) moist. Neck is supple and symmetric, trachea is (unknown) (no (unknown) (unknown) clearance 42, PT (units (unknown) date) 13.5 although INR unknown) stable 1.2 PTT 50, troponin 0.018, COVID is (unknown) (no (unknown) (unknown) decreasing the (units (unknown) date) metoprolol dose by unknown) half and adding 2.5 amlodipine, and repeating (unknown) (no (unknown) (unknown) deformity, (units (unk nown) date) crepitus, unknown) effusions, cyanosis, clubbing or edema present. Full range (unknown) (no (unknown) (unknown) diagnostic (units (unk nown) date) imaging, and unknown) laboratory results. (unknown) (no (unknown) (unknown) diazepam [Valium] (units (unknown) date) 10 mg Tablet unknown) (unknown) (no (unknown) (unknown) difficulty (units (unk nown) date) swallowing, speech unknown) impairment, weakness, numbness, tingling, (unknown) (no (unknown) (unknown) difficulty with (units (unknown) date) ambulation, recent unknown) falls, head injury, LOC, fever, body aches, (unknown) (no (unknown) (unknown) discussion for (units (unknown) date) follow-up with unknown) Cardiology and PCP (unknown) (no (unknown) (unknown) documented and/or (units (unknown) date) surrogate decision unknown) maker is listed in the patient's medical (unknown) (no (unknown) (unknown) dramatically (units (u nknown) date) decreasing her unknown) activity level. Her cardiology office today advised (unknown) (no (unknown) (unknown) due to (units (unkno wn) date) bradycardia, unknown) exertional angina/dyspnea. (unknown) (no (unknown) (unknown) echo, with urgent (units (unknown) date) follow-up in their unknown) clinic. Patient admitted for observation (unknown) (no (unknown) (unknown) emergently by (units (unknown) date) [facility] unknown) at [facility] for cardiac catheterization (unknown) (no (unknown) (unknown) epilepsy, NSTEMI (units (unknown) date) 03/07-pending unknown) cardiac follow-up/catheter ization, and left hip (unknown) (no (unknown) (unknown) exception of (units (u nknown) date) those noted unknown) above.. (unknown) (no (unknown) (unknown) fatigue. (units (unkno wn) date) unknown) (unknown) (no (unknown) (unknown) fentanyl 75 (units (un known) date) mcg/hr patch 72 unknown) hour (unknown) (no (unknown) (unknown) fibrosis, HTN, (units ( unknown) date) hypothyroid, unknown) fibromyalgia, ascending aortic aneurysm, depression, (unknown) (no (unknown) (unknown) fibrosis, HTN, (units (unknown) date) hypothyroid, unknown) fibromyalgia, chronic pain medication, meth use or (unknown) (no (unknown) (unknown) fluoxetine (units (unk nown) date) [Prozac] 40 MG unknown) capsule (unknown) (no (unknown) (unknown) follow-up (units ( unknown) date) [facility] unknown) for cardiac catheterization. (unknown) (no (unknown) (unknown) follow-up with (units (unknown) date) PCP unknown) (unknown) (no (unknown) (unknown) for ?too bad (units (u nknown) date) valves and aortic unknown) aneurysm?.? After TX with metoprolol 50 mg (unknown) (no (unknown) (unknown) fracture ORIF (units ( unknown) date) with ARF unknown) 03/24/2022??Follow ed by Cardiology at [facility] (unknown) (no (unknown) (unknown) furosemide 20 mg (units (unknown) date) Tablet unknown) (unknown) (no (unknown) (unknown) history of (units (unkn own) date) epilepsy, NSTEMI unknown) 03/07-pending cardiac follow-up/catheter ization, and (unknown) (no (unknown) (unknown) household (units (unkn own) date) members: unknown) significant other (unknown) (no (unknown) (unknown) hx , regular ETOH (units (unknown) date) use, ascending unknown) aortic aneurysm, depression, history of (unknown) (no (unknown) (unknown) in the ED where (units (unknown) date) patient is being unknown) followed on-call safety and health manager recommended (unknown) (no (unknown) (unknown) intact, no gross (units (unknown) date) deficits noted of unknown) cranial nerves. (unknown) (no (unknown) (unknown) lamotrigine (units (un known) date) [Lamictal] 100 mg unknown) Tablet (unknown) (no (unknown) (unknown) left hip fracture (units (unknown) date) ORIF with ARF unknown) 03/24/2022??Follow ed by Cardiology at [place] [facility] (unknown) (no (unknown) (unknown) levothyroxine 100 (units (unknown) date) mcg Capsule unknown) (unknown) (no (unknown) (unknown) metoprolol (units (unk nown) date) tartrate 50 mg unknown) Tablet (unknown) (no (unknown) (unknown) midline, no (units (un known) date) adenopathy, no unknown) thyroid enlargement, nontender, no masses palpated. (unknown) (no (unknown) (unknown) negative. (units (unkn own) date) Patient's EKG unknown) sinus Yves rate of 44 LVH with repolarization (unknown) (no (unknown) (unknown) of motion intact (units (unknown) date) radial and pedal unknown) pulses are normal. (unknown) (no (unknown) (unknown) orthopnea, lower (units (unknown) date) extremity edema, unknown) headaches but overall general malaise and (unknown) (no (unknown) (unknown) outpatient. (units (un known) date) -EMERGENT unknown) follow-up. (unknown) (no (unknown) (unknown) over last 24 (units (u nknown) date) hours chills and unknown) significantly increased fatigue which has been (unknown) (no (unknown) (unknown) oxycodone-acetami (units (unknown) date) nophen [Percocet] unknown) 5-325 mg Tablet (unknown) (no (unknown) (unknown) potassium (units (unkn own) date) chloride 20 mEq unknown) Tablet Extended Release (unknown) (no (unknown) (unknown) record. (units (unkno wn) date) unknown) (unknown) (no (unknown) (unknown) saturation 97% on (units (unknown) date) room air. CBC unknown) unremarkable, chloride 97, BUN 27, creatinine (unknown) (no (unknown) (unknown) she come in for (units (unknown) date) further unknown) evaluation.? She reports no overt fevers, cough, (unknown) (no (unknown) (unknown) sleep. (units (unkno wn) date) unknown) (unknown) (no (unknown) (unknown) substance use (units ( unknown) date) type: does not use unknown) (unknown) (no (unknown) (unknown) that resolves (units ( unknown) date) with nitroglycerin unknown) occurring more frequently, slow heart beat and (unknown) (no (unknown) (unknown) the 40s. Patient (units (unknown) date) admitted for unknown) observation due to bradycardia, exertional (unknown) (no (unknown) (unknown) the patient's (units ( unknown) date) current unknown) medications. (unknown) (no (unknown) (unknown) this time. (units (unk nown) date) unknown) (unknown) (no (unknown) (unknown) thoracic aorta (units (unknown) date) redemonstrated, unknown) enlarged heart. [facility] was consulted (unknown) (no (unknown) (unknown) urinary (units (unkno wn) date) incontinence/reten unknown) tion, dysuria, frequency, urgency, hematuria, bowel (unknown) (no (unknown) (unknown) vitamin B complex (units (unknown) date) Tablet unknown) (unknown) (no (unknown) (unknown) wheezes, rhonchi, (units (unknown) date) or rales. unknown) (unknown) (no (unknown) (unknown) with Dr Martinez (units (unknown) date) (Dr Cottrell is unknown) out of town) ) (unknown) (no (unknown) (unknown) with an EF 60 (units ( unknown) date) 65%. Chest x-ray unknown) demonstrated aneurysmal dilation ascending Result panel 251 (unknown) (no (unknown) (unknown) (no value) (units (unk nown) date) unknown) (unknown) (no (unknown) (unknown) (past 8 hours): (units (unknown) date) unknown) (unknown) (no (unknown) (unknown) - TSH 5.89, free (units (unknown) date) T4 1.74 and normal unknown) (unknown) (no (unknown) (unknown) -03/23/2022 admit: (units (unknown) date) Troponin was unknown) 0.050, down trending to 0.041.? It likely to be (unknown) (no (unknown) (unknown) -EKG sinus Yves (units (unknown) date) rate of 44 LVH unknown) with repolarization abnormalities prolonged QTC (unknown) (no (unknown) (unknown) -Ordered BNP, (units ( unknown) date) TSH/Free T4 unknown) (unknown) (no (unknown) (unknown) -PCP can decide (units (unknown) date) if to change unknown) synthroid dose (unknown) (no (unknown) (unknown) -PT 13.5 although (units (unknown) date) INR stable 1.2 PTT unknown) 50 (unknown) (no (unknown) (unknown) -Patient takes (units (unknown) date) fentanyl 75 mcg Q unknown) 72 hours.? Percocet q.4-6 hours (unknown) (no (unknown) (unknown) -Recommend (units (unk nown) date) reaching out to Dr unknown) [facility] for fast tracking Cardiac cath as an (unknown) (no (unknown) (unknown) -discussed with (units (unknown) date) patient my unknown) concerns regarding polypharmacy in relation to her (unknown) (no (unknown) (unknown) -echo 10/05 with (units (unknown) date) an EF 60 65%. unknown) (unknown) (no (unknown) (unknown) -initial troponin (units (unknown) date) 0.018 will trend unknown) x3 (unknown) (no (unknown) (unknown) -initiated (units (unk nown) date) amlodipine 2.5 unknown) q.day (unknown) (no (unknown) (unknown) -managed by (units (unknown) date) [facility] unknown) Cardiology (unknown) (no (unknown) (unknown) -metoprolol (units (un known) date) stopped due to unknown) bradycardia (unknown) (no (unknown) (unknown) -patient (units (unkno wn) date) verbalized that unknown) she had echo completed [facility] P[facility] at [facility] (unknown) (no (unknown) (unknown) 04/27/2021-will (units (unknown) date) not repeat echo. unknown) (unknown) (no (unknown) (unknown) 05/09/22 05/09/22 (units (unknown) date) 05/09/22 unknown) (unknown) (no (unknown) (unknown) 05/09/22 21:59 (units (unknown) date) unknown) (unknown) (no (unknown) (unknown) 05/10/22 05/10/22 (units (unknown) date) 05/10/22 unknown) (unknown) (no (unknown) (unknown) 05/10/22 01:56 (units (unknown) date) unknown) (unknown) (no (unknown) (unknown) 05/10/22 02:04 (units (unknown) date) unknown) (unknown) (no (unknown) (unknown) 05/10/22 02:38 (units (unknown) date) unknown) (unknown) (no (unknown) (unknown) 05/10/22 05:47 (units (unknown) date) unknown) (unknown) (no (unknown) (unknown) 05/10/22 (units (unkno wn) date) unknown) (unknown) (no (unknown) (unknown) 05/16/22 0925 (units ( unknown) date) unknown) (unknown) (no (unknown) (unknown) [id number] (units (unkno wn) date) unknown) (unknown) (no (unknown) (unknown) 02:13 05:47 05:47 (units (unknown) date) unknown) (unknown) (no (unknown) (unknown) 08:00 05/10/22 (units (unknown) date) unknown) (unknown) (no (unknown) (unknown) 08:00 (units (unkno wn) date) unknown) (unknown) (no (unknown) (unknown) 1 tab PO DAILY (units (unknown) date) unknown) (unknown) (no (unknown) (unknown) 1 tab PO Q6H PRN (units (unknown) date) (Reason: Pain unknown) (Scale Score 4-6)) (unknown) (no (unknown) (unknown) 1. Bradycardia, (units (unknown) date) with exertional unknown) angina/dyspnea, acute, present on admission (unknown) (no (unknown) (unknown) 10 mg PO BEDTIME (units (unknown) date) unknown) (unknown) (no (unknown) (unknown) 100 mcg PO DAILY (units (unknown) date) unknown) (unknown) (no (unknown) (unknown) 100 mg PO DAILY (units (unknown) date) unknown) (unknown) (no (unknown) (unknown) 2. History of (units ( unknown) date) recent NSTEMI, unknown) requiring cardiac catheterization, acute on (unknown) (no (unknown) (unknown) 20 meq PO DAILY (units (unknown) date) unknown) (unknown) (no (unknown) (unknown) 20 mg PO DAILY (units (unknown) date) unknown) (unknown) (no (unknown) (unknown) 21:59 21:59 21:59 (units (unknown) date) unknown) (unknown) (no (unknown) (unknown) 22:04 22:04 22:05 (units (unknown) date) unknown) (unknown) (no (unknown) (unknown) 3. 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 unknown) (unknown) (no (unknown) (unknown) 5. 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 Depression, (units (unknown) date) chronic, present unknown) on admission (unknown) (no (unknown) (unknown) 60 mg PO DAILY (units (unknown) date) Qty: 0 unknown) (unknown) (no (unknown) (unknown) 75 mcg (units (unkno wn) date) transdermal Q72H unknown) (unknown) (no (unknown) (unknown) 8. (units (unkno wn) date) Hypothyroidism, unknown) acquired, chronic, present on admission (unknown) (no (unknown) (unknown) 81 mg PO DAILY (units (unknown) date) unknown) (unknown) (no (unknown) (unknown) ALT 17 (units (unkno wn) date) unknown) (unknown) (no (unknown) (unknown) ALT (units (unkno wn) date) unknown) (unknown) (no (unknown) (unknown) APTT 50 H (units (unkn own) date) unknown) (unknown) (no (unknown) (unknown) APTT (units (unkno wn) date) unknown) (unknown) (no (unknown) (unknown) AST 26 (units (unkno wn) date) unknown) (unknown) (no (unknown) (unknown) AST (units (unkno wn) date) unknown) (unknown) (no (unknown) (unknown) Abdomen: Soft (units ( unknown) date) nontender, unknown) negative for organomegaly, or masses. Bowel sounds (unknown) (no (unknown) (unknown) Admit vitals temp (units (unknown) date) 98?, 116/68, unknown) continued bradycardia HR 41, tachypneic RR 42, O2 (unknown) (no (unknown) (unknown) Admitted for (units (u nknown) date) bradycardia and unknown) echo. Recent echo found from 1 week prior which (unknown) (no (unknown) (unknown) Age/Sex: 72 / F (units (unknown) date) unknown) (unknown) (no (unknown) (unknown) Albumin 4.4 (units (un known) date) unknown) (unknown) (no (unknown) (unknown) Albumin (units (unkno wn) date) unknown) (unknown) (no (unknown) (unknown) Albumin/Globulin (units (unknown) date) Ratio 1.3 unknown) (unknown) (no (unknown) (unknown) Albumin/Globulin (units (unknown) date) Ratio unknown) (unknown) (no (unknown) (unknown) Alkaline (units (unkno wn) date) Phosphatase 109 unknown) (unknown) (no (unknown) (unknown) Alkaline (units (unkno wn) date) Phosphatase unknown) (unknown) (no (unknown) (unknown) Attending (units (unkn own) date) Provider: unknown) May Sloan (unknown) (no (unknown) (unknown) BUN 27 H (units (unkno wn) date) unknown) (unknown) (no (unknown) (unknown) BUN (units (unkno wn) date) unknown) (unknown) (no (unknown) (unknown) BUN/Creatinine (units (unknown) date) Ratio 30.3 H unknown) (unknown) (no (unknown) (unknown) BUN/Creatinine (units (unknown) date) Ratio 31.0 H unknown) (unknown) (no (unknown) (unknown) BUN/Creatinine (units (unknown) date) Ratio unknown) (unknown) (no (unknown) (unknown) Baso # (Auto) 100 (units (unknown) date) unknown) (unknown) (no (unknown) (unknown) Baso # (Auto) (units ( unknown) date) unknown) (unknown) (no (unknown) (unknown) Baso % (Auto) 0.9 (units (unknown) date) unknown) (unknown) (no (unknown) (unknown) Baso % (Auto) (units ( unknown) date) unknown) (unknown) (no (unknown) (unknown) Blood Pressure (units (unknown) date) 123/53 L unknown) (unknown) (no (unknown) (unknown) CK-MB [...] nown) date) unknown) (unknown) (no (unknown) (unknown) COVID (units (unkno wn) date) PCR:Negative unknown) (unknown) (no (unknown) (unknown) Calcium 9.2 (units (un known) date) unknown) (unknown) (no (unknown) (unknown) Calcium 9.4 (units (un known) date) unknown) (unknown) (no (unknown) (unknown) Calcium (units (unkno wn) date) unknown) (unknown) (no (unknown) (unknown) Carbon Dioxide 27 (units (unknown) date) unknown) (unknown) (no (unknown) (unknown) Carbon Dioxide 28 (units (unknown) date) unknown) (unknown) (no (unknown) (unknown) Carbon Dioxide (units (unknown) date) unknown) (unknown) (no (unknown) (unknown) Cardio: (units (unkno wn) date) Bradycardic rate unknown) and rhythm (unknown) (no (unknown) (unknown) Chest: no nasal (units (unknown) date) flaring, unknown) retractions, or tachypneic labored breathing. (unknown) (no (unknown) (unknown) Chief complaint: (units (unknown) date) heart is unknown) fluctuating, uncontrolled temperature (unknown) (no (unknown) (unknown) Chloride 96 L (units ( unknown) date) unknown) (unknown) (no (unknown) (unknown) Chloride 97 L (units ( unknown) date) unknown) (unknown) (no (unknown) (unknown) Chloride (units (unkno wn) date) unknown) (unknown) (no (unknown) (unknown) Comment: Fatigue, (units (unknown) date) Hipfx-ORIF 04/06 unknown) (unknown) (no (unknown) (unknown) Comment: (units (unkno wn) date) unknown) (unknown) (no (unknown) (unknown) Consult to (units (unk nown) date) Occupational unknown) Therapy Evaluate + Treat (unknown) (no (unknown) (unknown) Consult to (units (unk nown) date) Physical Therapy unknown) Evaluate + Treat (unknown) (no (unknown) (unknown) Consult to Social (units (unknown) date) Services Routine unknown) (unknown) (no (unknown) (unknown) Consults: (units (unkn own) date) unknown) (unknown) (no (unknown) (unknown) Continue (units (unkno wn) date) outpatient dose of unknown) Lamictal.? She also uses diazepam at bedtime for (unknown) (no (unknown) (unknown) Continued (units (unkn own) date) unknown) (unknown) (no (unknown) (unknown) Creatinine 0.87 (units (unknown) date) unknown) (unknown) (no (unknown) (unknown) Creatinine 0.89 (units (unknown) date) unknown) (unknown) (no (unknown) (unknown) Creatinine (units (unk nown) date) unknown) (unknown) (no (unknown) (unknown) : 1950 (units (unknown) date) Acct:[id number] unknown) (unknown) (no (unknown) (unknown) DVT/VTE (units (unkno wn) date) prophylaxis: unknown) Lovenox and SCD (unknown) (no (unknown) (unknown) Date Patient (units (u nknown) date) Seen: 05/10/22 unknown) (unknown) (no (unknown) (unknown) Date of Service: (units (unknown) date) 05/10/22 unknown) (unknown) (no (unknown) (unknown) Date of (units (unkno wn) date) admission: unknown) (unknown) (no (unknown) (unknown) Discharge Data (units (unknown) date) unknown) (unknown) (no (unknown) (unknown) Discharge Date: (units (unknown) date) 05/10/22 unknown) (unknown) (no (unknown) (unknown) Discharge (units [...] date) provider: unknown) (unknown) (no (unknown) (unknown) Discontinued (units (u nknown) date) unknown) (unknown) (no (unknown) (unknown) Eos # (Auto) 100 (units (unknown) date) unknown) (unknown) (no (unknown) (unknown) Eos # (Auto) (units (u nknown) date) unknown) (unknown) (no (unknown) (unknown) Eos % (Auto) 1.0 (units (unknown) date) L unknown) (unknown) (no (unknown) (unknown) Eos % (Auto) (units (u nknown) date) unknown) (unknown) (no (unknown) (unknown) Estimated GFR > (units (unknown) date) 60 unknown) (unknown) (no (unknown) (unknown) Estimated GFR (units ( unknown) date) unknown) (unknown) (no (unknown) (unknown) Carlos for ?too (units (unknown) date) bad valves and unknown) aortic aneurysm?.? After TX metoprolol 50 mg (unknown) (no (unknown) (unknown) Exam Narrative: (units (unknown) date) unknown) (unknown) (no (unknown) (unknown) Exam (units (unkno wn) date) unknown) (unknown) (no (unknown) (unknown) Family History (units (unknown) date) (Reviewed 05/10/22 unknown) @ 02:26 by May Sloan [facility]) (unknown) (no (unknown) (unknown) Father No (units (unkn own) date) problems noted. unknown) (unknown) (no (unknown) (unknown) Fibromyalgia (units (u nknown) date) unknown) (unknown) (no (unknown) (unknown) Follow (units (unkno wn) date) up/Referrals: unknown) (unknown) (no (unknown) (unknown) Free T4 1.74 (units (u nknown) date) unknown) (unknown) (no (unknown) (unknown) Free T4 (units (unkno wn) date) unknown) (unknown) (no (unknown) (unknown) General: Patient (units (unknown) date) is a thin frail unknown) appearing elderly female in no distress at (unknown) (no (unknown) (unknown) Globulin 3.3 (units (u nknown) date) unknown) (unknown) (no (unknown) (unknown) Globulin (units (unkno wn) date) unknown) (unknown) (no (unknown) (unknown) Glucose 103 (units (un known) date) unknown) (unknown) (no (unknown) (unknown) Glucose 97 (units (unk nown) date) unknown) (unknown) (no (unknown) (unknown) Glucose (units (unkno wn) date) unknown) (unknown) (no (unknown) (unknown) HEENT: (units (unkno wn) date) Normocephalic, unknown) atraumatic, extraocular muscles intact, oral pharynx is (unknown) (no (unknown) (unknown) Hct 42.9 (units (unkno wn) date) unknown) (unknown) (no (unknown) (unknown) Hct (units (unkno wn) date) unknown) (unknown) (no (unknown) (unknown) Hgb 14.2 (units (unkno wn) date) unknown) (unknown) (no (unknown) (unknown) Hgb (units (unkno wn) date) unknown) (unknown) (no (unknown) (unknown) History of (units (unk nown) date) Present Illness unknown) (unknown) (no (unknown) (unknown) Hospital Course (units (unknown) date) unknown) (unknown) (no (unknown) (unknown) Hospital Course: (units (unknown) date) unknown) (unknown) (no (unknown) (unknown) Hypertension (units (u nknown) date) unknown) (unknown) (no (unknown) (unknown) Hypothyroidism (units (unknown) date) unknown) (unknown) (no (unknown) (unknown) INR 1.2 (units (unkno wn) date) unknown) (unknown) (no (unknown) (unknown) INR (units (unkno wn) date) unknown) (unknown) (no (unknown) (unknown) Instructions: DI (units (unknown) date) for Bradycardia unknown) (unknown) (no (unknown) (unknown) [facility] (units (unknown) date) [address] unknown) [place] [address] (unknown) (no (unknown) (unknown) Laboratory (units (unk nown) date) Results - last unknown) hr (unknown) (no (unknown) (unknown) Labs (units (unkno wn) date) unknown) (unknown) (no (unknown) (unknown) Labs: (units (unkno wn) date) unknown) (unknown) (no (unknown) (unknown) Duncan Rock is (units (unknown) date) a 72-year-old unknown) 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 (unknown) (no (unknown) (unknown) Lipase 152 (units (unk nown) date) unknown) (unknown) (no (unknown) (unknown) Lipase (units (unkno wn) date) unknown) (unknown) (no (unknown) (unknown) Lungs: (units (unkno wn) date) Auscultation of unknown) all lung barney are clear without adventitious sounds, (unknown) (no (unknown) (unknown) Darrell Cottrell, (units (unknown) date) [Primary Care unknown) Provider] - 02/08/23 2:30 pm (appt:05/24 @ 2:30 (unknown) (no (unknown) (unknown) Lymph # (Auto) (units (unknown) date) 1700 unknown) (unknown) (no (unknown) (unknown) Lymph # (Auto) (units (unknown) date) unknown) (unknown) (no (unknown) (unknown) Lymph % (Auto) (units (unknown) date) 18.2 L unknown) (unknown) (no (unknown) (unknown) Lymph % (Auto) (units (unknown) date) unknown) (unknown) (no (unknown) (unknown) MCH 28.0 (units (unkno wn) date) unknown) (unknown) (no (unknown) (unknown) MCH (units (unkno wn) date) unknown) (unknown) (no (unknown) (unknown) MCHC 33.0 (units (unkn own) date) unknown) (unknown) (no (unknown) (unknown) MCHC (units (unkno wn) date) unknown) (unknown) (no (unknown) (unknown) MCV 84.9 (units (unkno wn) date) unknown) (unknown) (no (unknown) (unknown) MCV (units (unkno wn) date) unknown) (unknown) (no (unknown) (unknown) Magnesium 1.9 (units ( unknown) date) unknown) (unknown) (no (unknown) (unknown) Magnesium (units (unkn own) date) unknown) (unknown) (no (unknown) (unknown) Heraclio Mckeon, (units (unknown) date) DO unknown) (unknown) (no (unknown) (unknown) Measuring 6.4 (units ( unknown) date) cm.? She will need unknown) close follow-up.? She is on metoprolol for (unknown) (no (unknown) (unknown) Medical History (units (unknown) date) (Reviewed 05/10/22 unknown) @ 02:25 by DAINA Parikh) (unknown) (no (unknown) (unknown) Mobile # (Auto) 700 (units (unknown) date) unknown) (unknown) (no (unknown) (unknown) Mobile # (Auto) (units ( unknown) date) unknown) (unknown) (no (unknown) (unknown) Mobile % (Auto) 7.7 (units (unknown) date) unknown) (unknown) (no (unknown) (unknown) Mobile % (Auto) (units ( unknown) date) unknown) (unknown) (no (unknown) (unknown) Mother TIA (units (unk nown) date) (transient unknown) ischemic attack) (unknown) (no (unknown) (unknown) Musculoskeletal: (units (unknown) date) Muscle strength unknown) and tone are equal within normal limits, no (unknown) (no (unknown) (unknown) Myocardial (units (unk nown) date) infarction unknown) (unknown) (no (unknown) (unknown) NT-Pro-B (units (unkno wn) date) Natriuret Pep 6090 unknown) H (unknown) (no (unknown) (unknown) NT-Pro-B (units (unkno wn) date) Natriuret Pep unknown) (unknown) (no (unknown) (unknown) Narrative (units (unkn own) date) unknown) (unknown) (no (unknown) (unknown) Narrative: (units (unk nown) date) unknown) (unknown) (no (unknown) (unknown) Negative for JVD (units (unknown) date) unknown) (unknown) (no (unknown) (unknown) Neuro: Alert and (units (unknown) date) orientated x3, unknown) moves all extremities, sensation to touch (unknown) (no (unknown) (unknown) Neut # (Auto) (units ( unknown) date) 6800 unknown) (unknown) (no (unknown) (unknown) Neut # (Auto) (units ( unknown) date) unknown) (unknown) (no (unknown) (unknown) Neut % (Auto) (units ( unknown) date) 72.2 unknown) (unknown) (no (unknown) (unknown) Neut % (Auto) (units ( unknown) date) unknown) (unknown) (no (unknown) (unknown) Objective (units (unkn own) date) unknown) (unknown) (no (unknown) (unknown) On admit patient (units (unknown) date) denies chest pain unknown) + SOB at rest, headache, changes in vision, (unknown) (no (unknown) (unknown) Oxygen Delivery (units (unknown) date) Method Room Air unknown) (unknown) (no (unknown) (unknown) Oxygen Flow Rate (units (unknown) date) 0 unknown) (unknown) (no (unknown) (unknown) PFSH (units (unkno wn) date) unknown) (unknown) (no (unknown) (unknown) PT 13.5 H (units (unkn own) date) unknown) (unknown) (no (unknown) (unknown) PT (units (unkno wn) date) unknown) (unknown) (no (unknown) (unknown) Patient (units (unkno wn) date) Disposition: Home unknown) (unknown) (no (unknown) (unknown) Patient: (units (unkno wn) date) Duncan Rock unknown) MR#: [id number] (unknown) (no (unknown) (unknown) Physician (units (unkn own) date) Instructions: unknown) Evaluate and Treat (unknown) (no (unknown) (unknown) Physician (units (unkn own) date) Instructions: unknown) Evaluate and treat (unknown) (no (unknown) (unknown) Plt Count 328 (units ( unknown) date) unknown) (unknown) (no (unknown) (unknown) Plt Count (units (unkn own) date) unknown) (unknown) (no (unknown) (unknown) Potassium 4.1 (units ( unknown) date) unknown) (unknown) (no (unknown) (unknown) Potassium 4.4 (units ( unknown) date) unknown) (unknown) (no (unknown) (unknown) Potassium (units (unkn own) date) unknown) (unknown) (no (unknown) (unknown) Prescriptions: (units [...] Land unknown) partner (unknown) (no (unknown) (unknown) Psych: Patient (units (unknown) date) has a well-kept unknown) appearance, appropriate affect, mental status (unknown) (no (unknown) (unknown) Pulse Oximetry 98 (units (unknown) date) unknown) (unknown) (no (unknown) (unknown) Pulse Rate 43 L (units (unknown) date) unknown) (unknown) (no (unknown) (unknown) RBC 5.06 (units (unkno wn) date) unknown) (unknown) (no (unknown) (unknown) RBC (units (unkno wn) date) unknown) (unknown) (no (unknown) (unknown) RDW 15.0 H (units (unk nown) date) unknown) (unknown) (no (unknown) (unknown) RDW (units (unkno wn) date) unknown) (unknown) (no (unknown) (unknown) Respiratory Rate (units (unknown) date) 42 H unknown) (unknown) (no (unknown) (unknown) Restrictive lung (units (unknown) date) disease unknown) (unknown) (no (unknown) (unknown) Darrell Cottrell, (units (unknown) date) unknown) (unknown) (no (unknown) (unknown) Rx Instructions: (units (unknown) date) unknown) (unknown) (no (unknown) (unknown) SARS-CoV-2 (PCR) (units (unknown) date) Negative unknown) (unknown) (no (unknown) (unknown) SARS-CoV-2 (PCR) (units (unknown) date) unknown) (unknown) (no (unknown) (unknown) She is not on any (units (unknown) date) outpatient unknown) medications or inhalers. (unknown) (no (unknown) (unknown) Signed (units (unkno wn) date) By:<Electronically unknown) signed by Heraclio Mckeon D.O.> (unknown) (no (unknown) (unknown) Skin: Warm dry (units (unknown) date) and intact without unknown) rashes, ulcerations or petechiae. (unknown) (no (unknown) (unknown) Smoking Status: (units [...] wn) date) unknown) (unknown) (no (unknown) (unknown) Stand Alone (units (un known) date) Forms: Patient unknown) Portal/API, Stroke Signs + Symptoms (unknown) (no (unknown) (unknown) Status post hip (units (unknown) date) surgery unknown) (unknown) (no (unknown) (unknown) Summary (units (unkno wn) date) unknown) (unknown) (no (unknown) (unknown) Surgical History (units (unknown) date) (Reviewed 05/10/22 unknown) @ 02:25 by May Sloan [facility]) (unknown) (no (unknown) (unknown) TSH 5.89 H (units (unk nown) date) unknown) (unknown) (no (unknown) (unknown) TSH (units (unkno wn) date) unknown) (unknown) (no (unknown) (unknown) Takes 2 tablets (units (unknown) date) daily unknown) (unknown) (no (unknown) (unknown) Temperature 97.6 (units (unknown) date) F unknown) (unknown) (no (unknown) (unknown) Time Patient (units (u nknown) date) Seen: 12:00 unknown) (unknown) (no (unknown) (unknown) Time Spent with (units (unknown) date) Patient unknown) (unknown) (no (unknown) (unknown) Time spent: (units (un known) date) Greater than 30 unknown) minutes (unknown) (no (unknown) (unknown) Total Bilirubin (units (unknown) date) 0.8 unknown) (unknown) (no (unknown) (unknown) Total Bilirubin (units (unknown) date) unknown) (unknown) (no (unknown) (unknown) Total Creatine (units (unknown) date) Kinase 44 unknown) (unknown) (no (unknown) (unknown) Total Creatine (units (unknown) date) Kinase unknown) (unknown) (no (unknown) (unknown) Total Protein 7.7 (units (unknown) date) unknown) (unknown) (no (unknown) (unknown) Total Protein (units ( unknown) date) unknown) (unknown) (no (unknown) (unknown) Troponin I 0.013 (units (unknown) date) 0.014 unknown) (unknown) (no (unknown) (unknown) Troponin I 0.018 (units (unknown) date) unknown) (unknown) (no (unknown) (unknown) Troponin I (units (unk nown) date) unknown) (unknown) (no (unknown) (unknown) Visit (units (unkno wn) date) Report/Discharge unknown) Packet (unknown) (no (unknown) (unknown) Vital Signs (units (un known) date) unknown) (unknown) (no (unknown) (unknown) WBC 9.4 (units (unkno wn) date) unknown) (unknown) (no (unknown) (unknown) WBC (units (unkno wn) date) unknown) (unknown) (no (unknown) (unknown) [Embedded Image (units (unknown) date) Not Available] unknown) (unknown) (no (unknown) (unknown) abnormalities (units ( unknown) date) prolonged QTC 494 unknown) without ST or T-wave changes. Last echo 10/05 (unknown) (no (unknown) (unknown) alcohol intake: (units (unknown) date) current unknown) (unknown) (no (unknown) (unknown) angina/dyspnea. (units (unknown) date) Once bradycardia unknown) can be resolved the patient can be seen (unknown) (no (unknown) (unknown) approximately 1 (units (unknown) date) week ago which was unknown) found Dr. Mckeon to have been completed on (unknown) (no (unknown) (unknown) are present in (units (unknown) date) all 4 quadrants unknown) without guarding or rebound, no CVA tenderness. (unknown) (no (unknown) (unknown) aspirin 81 mg (units ( unknown) date) Tablet,Delayed unknown) Release (Dr/Ec) (unknown) (no (unknown) (unknown) attitude thought (units (unknown) date) context and unknown) judgment are appropriate for age. (unknown) (no (unknown) (unknown) b.i.d. and (units (unk nown) date) complains of low unknown) energy with exertional angina/shortness of breath (unknown) (no (unknown) (unknown) b.i.d. initiated (units (unknown) date) and complains of unknown) low energy with exertional angina/shortness of (unknown) (no (unknown) (unknown) blood pressure (units (unknown) date) control. unknown) (unknown) (no (unknown) (unknown) bradycardia and (units (unknown) date) that she may need unknown) to be tapered back on her pain medications-a (unknown) (no (unknown) (unknown) breath,and (units (unk nown) date) bradycardia. unknown) Patient has sustained bradycardia in ED and on floor in (unknown) (no (unknown) (unknown) cardiac demand (units (unknown) date) ischemia. unknown) (unknown) (no (unknown) (unknown) changes, (units (unkno wn) date) constipation, unknown) incontinence, melena, rashes, recent illness with the (unknown) (no (unknown) (unknown) chills, cough, (units (unknown) date) recent exposure to unknown) illness, abdominal pain, nausea, vomiting, (unknown) (no (unknown) (unknown) cholecalciferol (units (unknown) date) (vitamin D3) 50 unknown) mcg (2,000 unit) Tablet (unknown) (no (unknown) (unknown) chronic, present (units (unknown) date) on unknown) admission-patient is stable and in no distress (unknown) (no (unknown) (unknown) clear and mucous (units (unknown) date) membranes are unknown) moist. Neck is supple and symmetric, trachea is (unknown) (no (unknown) (unknown) clearance 42, PT (units (unknown) date) 13.5 although INR unknown) stable 1.2 PTT 50, troponin 0.018, COVID is (unknown) (no (unknown) (unknown) decreasing the (units (unknown) date) metoprolol dose by unknown) half and adding 2.5 amlodipine, and repeating (unknown) (no (unknown) (unknown) deformity, (units (unk nown) date) crepitus, unknown) effusions, cyanosis, clubbing or edema present. Full range (unknown) (no (unknown) (unknown) diazepam [Valium] (units (unknown) date) 10 mg Tablet unknown) (unknown) (no (unknown) (unknown) difficulty (units (unk nown) date) swallowing, speech unknown) impairment, weakness, numbness, tingling, (unknown) (no (unknown) (unknown) difficulty with (units (unknown) date) ambulation, recent unknown) falls, head injury, LOC, fever, body aches, (unknown) (no (unknown) (unknown) discussion for (units (unknown) date) follow-up with unknown) Cardiology and PCP (unknown) (no (unknown) (unknown) dramatically (units (u nknown) date) decreasing her unknown) activity level. Her cardiology office today advised (unknown) (no (unknown) (unknown) due to (units (unkno wn) date) bradycardia, unknown) exertional angina/dyspnea. (unknown) (no (unknown) (unknown) echo, with urgent (units (unknown) date) follow-up in their unknown) clinic. Patient admitted for observation (unknown) (no (unknown) (unknown) emergently by (units (unknown) date) [facility] unknown) at [facility] for cardiac catheterization (unknown) (no (unknown) (unknown) epilepsy, NSTEMI (units (unknown) date) 03/07-pending unknown) cardiac follow-up/catheter ization, and left hip (unknown) (no (unknown) (unknown) exception of (units (u nknown) date) those noted unknown) above.. (unknown) (no (unknown) (unknown) fatigue. (units (unkno wn) date) unknown) (unknown) (no (unknown) (unknown) fentanyl 75 (units (un known) date) mcg/hr patch 72 unknown) hour (unknown) (no (unknown) (unknown) fibrosis, HTN, (units ( unknown) date) hypothyroid, unknown) fibromyalgia, ascending aortic aneurysm, depression, (unknown) (no (unknown) (unknown) fibrosis, HTN, (units (unknown) date) hypothyroid, unknown) fibromyalgia, chronic pain medication, meth use or (unknown) (no (unknown) (unknown) fluoxetine (units (unk nown) date) [Prozac] 40 MG unknown) capsule (unknown) (no (unknown) (unknown) for ?too bad (units (u nknown) date) valves and aortic unknown) aneurysm?.? After TX with metoprolol 50 mg (unknown) (no (unknown) (unknown) fracture ORIF (units ( unknown) date) with ARF unknown) 03/24/2022??Follow ed by Cardiology at [facility] (unknown) (no (unknown) (unknown) furosemide 20 mg (units (unknown) date) Tablet unknown) (unknown) (no (unknown) (unknown) history of (units (unkn own) date) epilepsy, NSTEMI unknown) 03/07-pending cardiac follow-up/catheter ization, and (unknown) (no (unknown) (unknown) household (units (unkn own) date) members: unknown) significant other (unknown) (no (unknown) (unknown) hx , regular ETOH (units (unknown) date) use, ascending unknown) aortic aneurysm, depression, history of (unknown) (no (unknown) (unknown) in the ED where (units (unknown) date) patient is being unknown) followed on-call safety and health manager recommended (unknown) (no (unknown) (unknown) intact, no gross (units (unknown) date) deficits noted of unknown) cranial nerves. (unknown) (no (unknown) (unknown) lamotrigine (units (un known) date) [Lamictal] 100 mg unknown) Tablet (unknown) (no (unknown) (unknown) left hip fracture (units (unknown) date) ORIF with ARF unknown) 03/24/2022??Follow ed by Cardiology at [facility] (unknown) (no (unknown) (unknown) levothyroxine 100 (units (unknown) date) mcg Capsule unknown) (unknown) (no (unknown) (unknown) metoprolol (units (unk nown) date) tartrate 50 mg unknown) Tablet (unknown) (no (unknown) (unknown) midline, no (units (un known) date) adenopathy, no unknown) thyroid enlargement, nontender, no masses palpated. (unknown) (no (unknown) (unknown) negative. (units (unkn own) date) Patient's EKG unknown) sinus Yves rate of 44 LVH with repolarization (unknown) (no (unknown) (unknown) of motion intact (units (unknown) date) radial and pedal unknown) pulses are normal. (unknown) (no (unknown) (unknown) only to the 40's (units (unknown) date) with sleep and unknown) 50's while awake. She was discharged to f/u with (unknown) (no (unknown) (unknown) orthopnea, lower (units (unknown) date) extremity edema, unknown) headaches but overall general malaise and (unknown) (no (unknown) (unknown) outpatient (units (unk nown) date) cardiology for unknown) possible cath. (unknown) (no (unknown) (unknown) outpatient. (units (un known) date) -EMERGENT unknown) follow-up. (unknown) (no (unknown) (unknown) over last 24 (units (u nknown) date) hours chills and unknown) significantly increased fatigue which has been (unknown) (no (unknown) (unknown) oxycodone-acetami (units (unknown) date) nophen [Percocet] unknown) 5-325 mg Tablet (unknown) (no (unknown) (unknown) potassium (units (unkn own) date) chloride 20 mEq unknown) Tablet Extended Release (unknown) (no (unknown) (unknown) saturation 97% on (units (unknown) date) room air. CBC unknown) unremarkable, chloride 97, BUN 27, creatinine (unknown) (no (unknown) (unknown) she come in for (units (unknown) date) further unknown) evaluation.? She reports no overt fevers, cough, (unknown) (no (unknown) (unknown) showed EF 60-65%. (units (unknown) date) Her home unknown) metoprolol was held and sinus yves continued but (unknown) (no (unknown) (unknown) sleep. (units (unkno wn) date) unknown) (unknown) (no (unknown) (unknown) substance use (units ( unknown) date) type: does not use unknown) (unknown) (no (unknown) (unknown) that resolves (units ( unknown) date) with nitroglycerin unknown) occurring more frequently, slow heart beat and (unknown) (no (unknown) (unknown) the 40s. Patient (units (unknown) date) admitted for unknown) observation due to bradycardia, exertional (unknown) (no (unknown) (unknown) this time. (units (unk nown) date) unknown) (unknown) (no (unknown) (unknown) thoracic aorta (units (unknown) date) redemonstrated, unknown) enlarged heart. [facility] was consulted (unknown) (no (unknown) (unknown) urinary (units (unkno wn) date) incontinence/reten unknown) tion, dysuria, frequency, urgency, hematuria, bowel (unknown) (no (unknown) (unknown) vitamin B complex (units (unknown) date) Tablet unknown) (unknown) (no (unknown) (unknown) wheezes, rhonchi, (units (unknown) date) or rales. unknown) (unknown) (no (unknown) (unknown) with Dr Martinez (units (unknown) date) (Dr Cottrell is unknown) out of town) ) (unknown) (no (unknown) (unknown) with an EF 60 (units ( unknown) date) 65%. Chest x-ray unknown) demonstrated aneurysmal dilation ascending Result panel 252 (unknown) (no (unknown) (unknown) (no value) (units (unk nown) date) unknown) (unknown) (no (unknown) (unknown) [id number] (units (unkno wn) date) unknown) (unknown) (no (unknown) (unknown) 05/20/22 (units (unkno wn) date) unknown) (unknown) (no (unknown) (unknown) [address] [place] [address] (units (unknown) date) unknown) (unknown) (no (unknown) (unknown) 16:10. (units (unkno wn) date) unknown) (unknown) (no (unknown) (unknown) Accession Number: (units (unknown) date) [id number] unknown) (unknown) (no (unknown) (unknown) Age/Sex: 72 / F (units (unknown) date) Date of Service: unknown) (unknown) (no (unknown) (unknown) [place], [place] (units ( unknown) date) [id number] unknown) (unknown) (no (unknown) (unknown) Approved by: [place] (units (unknown) date) Dedrick Goel on unknown) 05/20/2022 at 13:18 (unknown) (no (unknown) (unknown) Bones: Patient is (units (unknown) date) status post left unknown) hip arthroplasty, with hardware components (unknown) (no (unknown) (unknown) [facility], [facility], XR unknown) HIP W PEL IF DONE LT 2V, 03/23/2022, (unknown) (no (unknown) (unknown) : 1950 (units (unknown) date) Acct:[id number] unknown) (unknown) (no (unknown) (unknown) FINDINGS: (units (unkn own) date) unknown) (unknown) (no (unknown) (unknown) IMPRESSION: Left (units (unknown) date) hip unknown) hemiarthroplasty good position. Moderate right hip (unknown) (no (unknown) (unknown) INDICATIONS: Hip (units (unknown) date) pain unknown) (unknown) (no (unknown) (unknown) [facility] (units (unknown) date) unknown) (unknown) (no (unknown) (unknown) Loc: ED (units (unkno wn) date) unknown) (unknown) (no (unknown) (unknown) No fracture (units (un known) date) unknown) (unknown) (no (unknown) (unknown) Ordering Provider: (units (unknown) date) Opal Lee unknown) SHIFTMAN (unknown) (no (unknown) (unknown) PROCEDURE: XR HIP (units (unknown) date) W PEL IF DONE LT 2V unknown) (unknown) (no (unknown) (unknown) Patient: (units (unkno wn) date) Ducnan Rock unknown) MR#: [id number] (unknown) (no (unknown) (unknown) Procedure: XR hip (units (unknown) date) w pel if done LT 2V unknown) (unknown) (no (unknown) (unknown) Signed (units (unkno wn) date) unknown) (unknown) (no (unknown) (unknown) Soft tissues: (units ( unknown) date) Overlying unknown) postoperative changes are noted. No suspicious soft (unknown) (no (unknown) (unknown) TECHNIQUE: AP (units ( unknown) date) pelvis and lateral unknown) view of the left hip acquired. (unknown) (no (unknown) (unknown) XRay Report (units (un known) date) unknown) (unknown) (no (unknown) (unknown) appear intact. (units (unknown) date) unknown) (unknown) (no (unknown) (unknown) densities. (units (unk nown) date) unknown) (unknown) (no (unknown) (unknown) expected (units (unkno wn) date) positions. The hip unknown) joint appears congruent. The visualized bony (unknown) (no (unknown) (unknown) in (units (unkno wn) date) unknown) (unknown) (no (unknown) (unknown) osteoarthritis. (units (unknown) date) unknown) (unknown) (no (unknown) (unknown) structures (units (unk nown) date) unknown) (unknown) (no (unknown) (unknown) tissue (units (unkno wn) date) unknown) Result panel 253 (unknown) (no (unknown) (unknown) (no value) (units (unk nown) date) unknown) (unknown) (no (unknown) (unknown) (Lamictal) (units (unk nown) date) unknown) (unknown) (no (unknown) (unknown) *If you do not (units (unknown) date) have a primary care unknown) provider please contact [phone] to (unknown) (no (unknown) (unknown) *Please continue [...] been (units (unknown) date) diagnosed with unknown) likely a hip subluxation with self (unknown) (no (unknown) (unknown) 05/10/22 (units (unkno wn) date) unknown) (unknown) (no (unknown) (unknown) 05/20/22 12:37 (units (unknown) date) unknown) (unknown) (no (unknown) (unknown) 05/20/22 (units (unkno wn) date) unknown) (unknown) (no (unknown) (unknown) [id number] (units (unkno wn) date) unknown) (unknown) (no (unknown) (unknown) 1 tab PO DAILY (units (unknown) date) unknown) (unknown) (no (unknown) (unknown) 1 tab PO Q6H PRN (units (unknown) date) (Reason: Pain unknown) (Scale Score 4-6)) (unknown) (no (unknown) (unknown) 10 mg PO BEDTIME (units (unknown) date) unknown) (unknown) (no (unknown) (unknown) 100 mcg PO DAILY (units (unknown) date) unknown) (unknown) (no (unknown) (unknown) 100 mg PO DAILY (units (unknown) date) unknown) (unknown) (no (unknown) (unknown) 12:31 (units (unkno wn) date) unknown) (unknown) (no (unknown) (unknown) 20 meq PO DAILY (units (unknown) date) unknown) (unknown) (no (unknown) (unknown) 20 mg PO DAILY (units (unknown) date) unknown) (unknown) (no (unknown) (unknown) 50 mcg PO DAILY (units (unknown) date) unknown) (unknown) (no (unknown) (unknown) 60 mg PO DAILY (units (unknown) date) Qty: 0 unknown) (unknown) (no (unknown) (unknown) 75 mcg transdermal (units (unknown) date) Q72H unknown) (unknown) (no (unknown) (unknown) 81 mg PO DAILY (units (unknown) date) unknown) (unknown) (no (unknown) (unknown) Activity (units (unkno wn) date) Restrictions/Additi unknown) onal Instructions: (unknown) (no (unknown) (unknown) Age/Sex: 72 / F (units (unknown) date) unknown) (unknown) (no (unknown) (unknown) Allergies (units (unkn own) date) unknown) (unknown) (no (unknown) (unknown) Allergy/AdvReac (units (unknown) date) Type Severity unknown) Reaction Status Date / Time (unknown) (no (unknown) (unknown) Blood Pressure (units (unknown) date) 127/52 L 05/20/22 unknown) 12:31 (unknown) (no (unknown) (unknown) Blood Pressure (units (unknown) date) 127/52 L unknown) (unknown) (no (unknown) (unknown) Cardiovascular: (units (unknown) date) regular rate and unknown) rhythm, no peripheral edema, warm extremities (unknown) (no (unknown) (unknown) Chief Complaint: (units (unknown) date) Extremity Injury, unknown) Lower (unknown) (no (unknown) (unknown) Clinical (units (unkno wn) date) Impression: unknown) (unknown) (no (unknown) (unknown) Course (units (unkno wn) date) unknown) (unknown) (no (unknown) (unknown) : 1950 (units (unknown) date) Acct:[id number] unknown) (unknown) (no (unknown) (unknown) Date of Service: (units (unknown) date) 05/20/22 unknown) (unknown) (no (unknown) (unknown) Departure (units (unkn own) date) unknown) (unknown) (no (unknown) (unknown) Discharge Plan (units (unknown) date) unknown) (unknown) (no (unknown) (unknown) ED Orders (units (unkn own) date) unknown) (unknown) (no (unknown) (unknown) ER Physician: (units ( unknown) date) Opal Lee unknown) SHIFTMAN (unknown) (no (unknown) (unknown) Emergency Report (units (unknown) date) unknown) (unknown) (no (unknown) (unknown) Exam Narrative: (units (unknown) date) unknown) (unknown) (no (unknown) (unknown) Exam (units (unkno wn) date) unknown) (unknown) (no (unknown) (unknown) Family History (units (unknown) date) (Reviewed 05/20/22 unknown) @ 13:31 by PUJA Ramirez) (unknown) (no (unknown) (unknown) Father No problems (units (unknown) date) noted. unknown) (unknown) (no (unknown) (unknown) Fibromyalgia (units (u nknown) date) unknown) (unknown) (no (unknown) (unknown) GI: abdomen soft, (units (unknown) date) nontender to unknown) palpation, nondistended, without masses, rebound (unknown) (no (unknown) (unknown) General (units (unkno wn) date) unknown) (unknown) (no (unknown) (unknown) General: (units (unkno wn) date) cooperative, unknown) comfortable, in no acute distress, well groomed, mildly (unknown) (no (unknown) (unknown) Hay Au MD (units (unknown) date) [Physician] unknown) (unknown) (no (unknown) (unknown) HEENT: symmetrical (units (unknown) date) facial expressions, unknown) dry mucous membranes (unknown) (no (unknown) (unknown) HPI - Extremity (units (unknown) date) Injury (Lower) unknown) (unknown) (no (unknown) (unknown) HPI Narrative: (units (unknown) date) unknown) (unknown) (no (unknown) (unknown) Hip pain, History (units (unknown) date) of arthroplasty of unknown) left hip (unknown) (no (unknown) (unknown) History of Present [...] Signs: unknown) (unknown) (no (unknown) (unknown) Instructions: DI (units (unknown) date) for Hip Pain unknown) (unknown) (no (unknown) (unknown) [facility] (units (unknown) date) [address] [place] [address] unknown) [place] [address] (unknown) (no (unknown) (unknown) Darrell Cottrell, (units (unknown) date) [Primary Care unknown) Provider] (unknown) (no (unknown) (unknown) MSK: moves all (units (unknown) date) extremities, unknown) neurovascularly intact, no weakness, normal tone, (unknown) (no (unknown) (unknown) Medical History (units (unknown) date) (Reviewed 05/20/22 unknown) @ 13:31 by Opal Lee [facility]) (unknown) (no (unknown) (unknown) Medication (units (unk nown) date) Instructions unknown) Recorded Confirmed (unknown) (no (unknown) (unknown) Mode of arrival: (units (unknown) date) Ambulatory unknown) (unknown) (no (unknown) (unknown) Mother TIA (units (unk nown) date) (transient ischemic unknown) attack) (unknown) (no (unknown) (unknown) Myocardial (units (unk nown) date) infarction unknown) (unknown) (no (unknown) (unknown) Narrative (units (unkn own) date) unknown) (unknown) (no (unknown) (unknown) Neuro: normal (units ( unknown) date) speech and unknown) cognition, A+O x3, clear speech (unknown) (no (unknown) (unknown) No Action (units (unkn own) date) unknown) (unknown) (no (unknown) (unknown) Ordered: (units (unkno wn) date) unknown) (unknown) (no (unknown) (unknown) Orders (units (unkno wn) date) unknown) (unknown) (no (unknown) (unknown) Oxygen Delivery (units (unknown) date) Method 05/20/22 unknown) 12:31 (unknown) (no (unknown) (unknown) Oxygen Delivery (units (unknown) date) Method Room Air unknown) (unknown) (no (unknown) (unknown) Patient (units (unkno wn) date) Disposition: Home unknown) (unknown) (no (unknown) (unknown) Patient History (units (unknown) date) unknown) (unknown) (no (unknown) (unknown) Patient: (units (unkno wn) date) Duncan Rock unknown) MR#: [id number] (unknown) (no (unknown) (unknown) Prescriptions: (units (unknown) date) unknown) (unknown) (no (unknown) (unknown) Psych: mental (units ( unknown) date) status is grossly unknown) normal, congruent mood, normal affect, pleasant (unknown) (no (unknown) (unknown) Pulse Oximetry 98 (units (unknown) date) 05/20/22 12:31 unknown) (unknown) (no (unknown) (unknown) Pulse Oximetry 98 (units (unknown) date) unknown) (unknown) (no (unknown) (unknown) Pulse Rate 70 (units ( unknown) date) 05/20/22 12:31 unknown) (unknown) (no (unknown) (unknown) Pulse Rate 70 (units ( unknown) date) unknown) (unknown) (no (unknown) (unknown) ROS Unobtainable: (units (unknown) date) All systems unknown) reviewed + are unremarkable except as noted in HPI (unknown) (no (unknown) (unknown) Referrals: (units (unk nown) date) unknown) (unknown) (no (unknown) (unknown) Related Data (units (u nknown) date) unknown) (unknown) (no (unknown) (unknown) Respiratory Rate (units (unknown) date) 17 05/20/22 12:31 unknown) (unknown) (no (unknown) (unknown) Respiratory Rate (units (unknown) date) 17 unknown) (unknown) (no (unknown) (unknown) Respiratory: (units (u nknown) date) normal effort, able unknown) to speak in complete sentences, without (unknown) (no (unknown) (unknown) Restrictive lung (units (unknown) date) disease unknown) (unknown) (no (unknown) (unknown) Review of Systems (units (unknown) date) unknown) (unknown) (no (unknown) (unknown) Reviewed vitals (units [...] (unknown) Social History (units (unknown) date) (Reviewed 05/20/22 unknown) @ 13:31 by PUJA Ramirez) (unknown) (no (unknown) (unknown) Source: patient (units (unknown) date) unknown) (unknown) (no (unknown) (unknown) Stand Alone Forms: (units (unknown) date) Patient Portal/API unknown) (unknown) (no (unknown) (unknown) Stated Complaint: (units (unknown) date) Hip Pain unknown) (unknown) (no (unknown) (unknown) Status post hip (units (unknown) date) surgery unknown) (unknown) (no (unknown) (unknown) 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 (unknown) (no (unknown) (unknown) Surgical History (units (unknown) date) (Reviewed 05/20/22 unknown) @ 13:31 by PUJA Ramirez) (unknown) (no (unknown) (unknown) Takes 2 tablets (units (unknown) date) daily unknown) (unknown) (no (unknown) (unknown) Temperature 98 F (units (unknown) date) 05/20/22 12:31 unknown) (unknown) (no (unknown) (unknown) Temperature 98 F (units (unknown) date) unknown) (unknown) (no (unknown) (unknown) This is a (units (unkn own) date) 72-year-old female unknown) presents to the emergency department via EMS after (unknown) (no (unknown) (unknown) Time Seen by (units (u nknown) date) Provider: 05/20/22 unknown) 13:13 (unknown) (no (unknown) (unknown) Vital Signs - 8 hr (units (unknown) date) unknown) (unknown) (no (unknown) (unknown) Vital Signs (units (un known) date) unknown) (unknown) (no (unknown) (unknown) Vital signs: (units (u nknown) date) unknown) (unknown) (no (unknown) (unknown) XR hip w pel if (units (unknown) date) done LT 2V Stat unknown) (unknown) (no (unknown) (unknown) [ ] New medication (units (unknown) date) prescriptions sent unknown) to your pharmacy: [ ] (unknown) (no (unknown) (unknown) [ ] New medication (units (unknown) date) written as a paper unknown) prescription (unknown) (no (unknown) (unknown) [ x] No new (units (un known) date) medications given unknown) (unknown) (no (unknown) (unknown) [From ] (units ( unknown) date) unknown) (unknown) (no (unknown) (unknown) a reported (units (unk nown) date) subluxation/disloca unknown) tion of her left hip when she was transferring (unknown) (no (unknown) (unknown) adhesive tape (units ( unknown) date) AdvReac Verified unknown) 05/20/22 12:33 (unknown) (no (unknown) (unknown) alcohol intake (units (unknown) date) frequency: 0-2 unknown) drinks per day (unknown) (no (unknown) (unknown) alcohol intake: (units (unknown) date) current unknown) (unknown) (no (unknown) (unknown) ambulatory with (units (unknown) date) steady gait, unknown) without limp, feet are equal in temperature and (unknown) (no (unknown) (unknown) and below (units (unkn own) date) unknown) (unknown) (no (unknown) (unknown) and cooperative (units (unknown) date) unknown) (unknown) (no (unknown) (unknown) anticoagulants at (units (unknown) date) this time, states unknown) she only takes a baby aspirin. (unknown) (no (unknown) (unknown) appointment. Let (units (unknown) date) them know you were unknown) seen in the Emergency Department and that we (unknown) (no (unknown) (unknown) arthroplasty was (units (unknown) date) on 03/23/2022 by unknown) Dr. Au here at this hospital. She states (unknown) (no (unknown) (unknown) asked that you be (units (unknown) date) seen for follow-up. unknown) We will electronically transmit a record (unknown) (no (unknown) (unknown) aspirin 81 mg (units ( unknown) date) Tablet,Delayed unknown) Release (Dr/Ec) (unknown) (no (unknown) (unknown) aspirin 81 mg (units ( unknown) date) tablet,delayed 81 unknown) mg PO DAILY 05/10/22 05/20/22 (unknown) (no (unknown) (unknown) cholecalciferol (units (unknown) date) (vitamin D3) 50 50 unknown) mcg PO DAILY 03/25/22 05/10/22 (unknown) (no (unknown) (unknown) cholecalciferol (units (unknown) date) (vitamin D3) 50 mcg unknown) (2,000 unit) Tablet (unknown) (no (unknown) (unknown) concerning (units (unk nown) date) symptoms, such as unknown) [fever greater than 101F, chills, worsening pain, (unknown) (no (unknown) (unknown) diazepam 10 mg (units (unknown) date) tablet (Valium) 10 unknown) mg PO BEDTIME 03/25/22 05/20/22 (unknown) (no (unknown) (unknown) diazepam [Valium] (units (unknown) date) 10 mg Tablet unknown) (unknown) (no (unknown) (unknown) do not have a (units ( unknown) date) fall. Remember to unknown) review your exercises and limitations so that (unknown) (no (unknown) (unknown) establish care (units (unknown) date) with one of the unknown) [facility] primary care providers. (unknown) (no (unknown) (unknown) extension. She (units (unknown) date) states that she is unknown) able to ambulate, denies any worsening pain, (unknown) (no (unknown) (unknown) fentanyl 75 mcg/hr (units (unknown) date) patch 72 hour unknown) (unknown) (no (unknown) (unknown) fentanyl 75 mcg/hr (units (unknown) date) transdermal 75 mcg unknown) transdermal Q72H pain 03/23/22 05/10/22 (unknown) (no (unknown) (unknown) fluoxetine 40 mg (units (unknown) date) capsule (Prozac) 60 unknown) mg PO DAILY ##0 11/29/12 05/20/22 (unknown) (no (unknown) (unknown) fluoxetine (units (unk nown) date) [Prozac] 40 MG unknown) capsule (unknown) (no (unknown) (unknown) from a seated (units ( unknown) date) squatting position unknown) to standing. She states that she felt it pop (unknown) (no (unknown) (unknown) furosemide 20 mg (units (unknown) date) Tablet unknown) (unknown) (no (unknown) (unknown) furosemide 20 mg (units (unknown) date) tablet 20 mg PO unknown) DAILY 05/10/22 05/20/22 (unknown) (no (unknown) (unknown) helped to stand by (units (unknown) date) her and she unknown) was able to reduce it on her own with (unknown) (no (unknown) (unknown) household members: (units (unknown) date) significant other unknown) (unknown) (no (unknown) (unknown) lamotrigine 100 mg (units (unknown) date) tablet 100 mg PO unknown) DAILY 03/25/22 05/20/22 (unknown) (no (unknown) (unknown) lamotrigine (units (un known) date) [Lamictal] 100 mg unknown) Tablet (unknown) (no (unknown) (unknown) levothyroxine 100 (units (unknown) date) mcg Capsule unknown) (unknown) (no (unknown) (unknown) levothyroxine 100 (units (unknown) date) mcg capsule 100 mcg unknown) PO DAILY 05/10/22 05/20/22 (unknown) (no (unknown) (unknown) mcg (2,000 unit) (units (unknown) date) tablet unknown) (unknown) (no (unknown) (unknown) mg tablet (units (unkn own) date) (Percocet) 4-6) unknown) (unknown) (no (unknown) (unknown) of today's note if (units (unknown) date) your PCP is in our unknown) system (unknown) (no (unknown) (unknown) out, and she fell (units (unknown) date) down to her right unknown) knee, denies any injury, states that she was (unknown) (no (unknown) (unknown) oxycodone-acetamin (units (unknown) date) ophen 5 mg-325 1 unknown) tab PO Q6H PRN Pain (Scale Score 03/25/22 (unknown) (no (unknown) (unknown) oxycodone-acetamin (units (unknown) date) ophen [Percocet] unknown) 5-325 mg Tablet (unknown) (no (unknown) (unknown) patch (units (unkno wn) date) unknown) (unknown) (no (unknown) (unknown) persistent (units (unk nown) date) vomiting or other unknown) bothersome symptoms]. (unknown) (no (unknown) (unknown) potassium chloride (units (unknown) date) 20 mEq 20 meq PO unknown) DAILY 05/10/22 05/20/22 (unknown) (no (unknown) (unknown) potassium chloride (units (unknown) date) 20 mEq Tablet unknown) Extended Release (unknown) (no (unknown) (unknown) release (units (unkno wn) date) unknown) (unknown) (no (unknown) (unknown) resolution/reducti (units (unknown) date) on. Please return unknown) if you have any worsening hip pain. Your (unknown) (no (unknown) (unknown) states that it (units (unknown) date) hurt right unknown) afterwards but no longer does. She denies any pain at (unknown) (no (unknown) (unknown) states that she (units (unknown) date) has heart surgery unknown) coming up on 05/26/2022, her left hip (unknown) (no (unknown) (unknown) substance use (units ( unknown) date) type: does not use unknown) (unknown) (no (unknown) (unknown) sulfamethoxazole (units (unknown) date) Allergy Verified unknown) 05/20/22 12:33 (unknown) (no (unknown) (unknown) tablet,extended (units (unknown) date) release unknown) (unknown) (no (unknown) (unknown) tenderness or (units ( unknown) date) exquisite unknown) tenderness with exam. (unknown) (no (unknown) (unknown) that she does not (units (unknown) date) have a deficit, has unknown) steady gait (unknown) (no (unknown) (unknown) that she has (units (u nknown) date) aortic valve unknown) problems and an aortic aneurysm. She is not on (unknown) (no (unknown) (unknown) this evaluated. (units (unknown) date) Stay hydrated, use unknown) your walker to help support you so that you (unknown) (no (unknown) (unknown) this time and is (units (unknown) date) ambulatory. Denies unknown) any health changes over the last week, (unknown) (no (unknown) (unknown) tremulous, (units (unk nown) date) interactive and unknown) pleasant, seated but stood and walked around to show (unknown) (no (unknown) (unknown) trimethoprim [From (units (unknown) date) Septra] Allergy unknown) Verified 05/20/22 12:33 (unknown) (no (unknown) (unknown) vitamin B complex (units (unknown) date) 1 tab PO DAILY unknown) 03/25/22 05/10/22 (unknown) (no (unknown) (unknown) vitamin B complex (units (unknown) date) Tablet unknown) (unknown) (no (unknown) (unknown) warm, pulses (units (u nknown) date) palpable and equal unknown) DP and PTs, (unknown) (no (unknown) (unknown) well for your (units ( unknown) date) heart surgery. If unknown) you have worsening pain, please consider having (unknown) (no (unknown) (unknown) wheezing, stridor, (units (unknown) date) or abnormal breath unknown) sounds. No retractions or tachypnea. (unknown) (no (unknown) (unknown) x-ray does not show (units (unknown) date) any concerning unknown) findings, please avoid illness and I wish you (unknown) (no (unknown) (unknown) you do not have a (units (unknown) date) similar incident unknown) and worse injury. Result panel 254 (unknown) (no (unknown) (unknown) (no value) (units (unk nown) date) unknown) (unknown) (no (unknown) (unknown) (Lamictal) (units (unk nown) date) unknown) (unknown) (no (unknown) (unknown) *If you do not (units (unknown) date) have a primary care unknown) provider please contact [phone] to (unknown) (no (unknown) (unknown) *Please continue [...] been (units (unknown) date) diagnosed with unknown) likely a hip subluxation with self (unknown) (no (unknown) (unknown) 05/10/22 (units (unkno wn) date) unknown) (unknown) (no (unknown) (unknown) 05/20/22 12:37 (units (unknown) date) unknown) (unknown) (no (unknown) (unknown) 05/20/22 (units (unkno wn) date) unknown) (unknown) (no (unknown) (unknown) [id number] (units (unkno wn) date) unknown) (unknown) (no (unknown) (unknown) 1 tab PO DAILY (units (unknown) date) unknown) (unknown) (no (unknown) (unknown) 1 tab PO Q6H PRN (units (unknown) date) (Reason: Pain unknown) (Scale Score 4-6)) (unknown) (no (unknown) (unknown) 10 mg PO BEDTIME (units (unknown) date) unknown) (unknown) (no (unknown) (unknown) 100 mcg PO DAILY (units (unknown) date) unknown) (unknown) (no (unknown) (unknown) 100 mg PO DAILY (units (unknown) date) unknown) (unknown) (no (unknown) (unknown) 12:31 (units (unkno wn) date) unknown) (unknown) (no (unknown) (unknown) 20 meq PO DAILY (units (unknown) date) unknown) (unknown) (no (unknown) (unknown) 20 mg PO DAILY (units (unknown) date) unknown) (unknown) (no (unknown) (unknown) 50 mcg PO DAILY (units (unknown) date) unknown) (unknown) (no (unknown) (unknown) 60 mg PO DAILY (units (unknown) date) Qty: 0 unknown) (unknown) (no (unknown) (unknown) 75 mcg transdermal (units (unknown) date) Q72H unknown) (unknown) (no (unknown) (unknown) 81 mg PO DAILY (units (unknown) date) unknown) (unknown) (no (unknown) (unknown) Activity (units (unkno wn) date) Restrictions/Additi unknown) onal Instructions: (unknown) (no (unknown) (unknown) Age/Sex: 72 / F (units (unknown) date) unknown) (unknown) (no (unknown) (unknown) Allergies (units (unkn own) date) unknown) (unknown) (no (unknown) (unknown) Allergy/AdvReac (units (unknown) date) Type Severity unknown) Reaction Status Date / Time (unknown) (no (unknown) (unknown) Blood Pressure (units (unknown) date) 127/52 L 05/20/22 unknown) 12:31 (unknown) (no (unknown) (unknown) Blood Pressure (units (unknown) date) 127/52 L unknown) (unknown) (no (unknown) (unknown) Cardiovascular: (units (unknown) date) regular rate and unknown) rhythm, no peripheral edema, warm extremities (unknown) (no (unknown) (unknown) Chief Complaint: (units (unknown) date) Extremity Injury, unknown) Lower (unknown) (no (unknown) (unknown) Clinical (units (unkno wn) date) Impression: unknown) (unknown) (no (unknown) (unknown) Course (units (unkno wn) date) unknown) (unknown) (no (unknown) (unknown) : 1950 (units (unknown) date) Acct:[id number] unknown) (unknown) (no (unknown) (unknown) Date of Service: (units (unknown) date) 05/20/22 unknown) (unknown) (no (unknown) (unknown) Departure (units (unkn own) date) unknown) (unknown) (no (unknown) (unknown) Discharge Plan (units (unknown) date) unknown) (unknown) (no (unknown) (unknown) ED Orders (units (unkn own) date) unknown) (unknown) (no (unknown) (unknown) ER Physician: (units ( unknown) date) Opal Lee unknown) PUJA (unknown) (no (unknown) (unknown) Emergency Report (units (unknown) date) unknown) (unknown) (no (unknown) (unknown) Exam Narrative: (units (unknown) date) unknown) (unknown) (no (unknown) (unknown) Exam (units (unkno wn) date) unknown) (unknown) (no (unknown) (unknown) Family History (units (unknown) date) (Reviewed 05/20/22 unknown) @ 13:31 by PUJA Ramirez) (unknown) (no (unknown) (unknown) Father No problems (units (unknown) date) noted. unknown) (unknown) (no (unknown) (unknown) Fibromyalgia (units (u nknown) date) unknown) (unknown) (no (unknown) (unknown) GI: abdomen soft, (units (unknown) date) nontender to unknown) palpation, nondistended, without masses, rebound (unknown) (no (unknown) (unknown) General (units (unkno wn) date) unknown) (unknown) (no (unknown) (unknown) General: (units (unkno wn) date) cooperative, unknown) comfortable, in no acute distress, well groomed, mildly (unknown) (no (unknown) (unknown) Hay Au MD (units (unknown) date) [Physician] unknown) (unknown) (no (unknown) (unknown) HEENT: symmetrical (units (unknown) date) facial expressions, unknown) dry mucous membranes (unknown) (no (unknown) (unknown) HPI - Extremity (units (unknown) date) Injury (Lower) unknown) (unknown) (no (unknown) (unknown) HPI Narrative: (units (unknown) date) unknown) (unknown) (no (unknown) (unknown) Hip pain, History (units (unknown) date) of arthroplasty of unknown) left hip (unknown) (no (unknown) (unknown) History of Present [...] Signs: unknown) (unknown) (no (unknown) (unknown) Instructions: DI (units (unknown) date) for Hip Pain unknown) (unknown) (no (unknown) (unknown) [facility] (units (unknown) date) [address] unknown) [place] [id number] (unknown) (no (unknown) (unknown) Darrell Cottrell, (units (unknown) date) [Primary Care unknown) Provider] (unknown) (no (unknown) (unknown) MSK: moves all (units (unknown) date) extremities, unknown) neurovascularly intact, no weakness, normal tone, (unknown) (no (unknown) (unknown) Medical History (units (unknown) date) (Reviewed 05/20/22 unknown) @ 13:31 by Opal Lee [facility]) (unknown) (no (unknown) (unknown) Medication (units (unk nown) date) Instructions unknown) Recorded Confirmed (unknown) (no (unknown) (unknown) Mode of arrival: (units (unknown) date) Ambulatory unknown) (unknown) (no (unknown) (unknown) Mother TIA (units (unk nown) date) (transient ischemic unknown) attack) (unknown) (no (unknown) (unknown) Myocardial (units (unk nown) date) infarction unknown) (unknown) (no (unknown) (unknown) Narrative (units (unkn own) date) unknown) (unknown) (no (unknown) (unknown) Neuro: normal (units ( unknown) date) speech and unknown) cognition, A+O x3, clear speech (unknown) (no (unknown) (unknown) No Action (units (unkn own) date) unknown) (unknown) (no (unknown) (unknown) Ordered: (units (unkno wn) date) unknown) (unknown) (no (unknown) (unknown) Orders (units (unkno wn) date) unknown) (unknown) (no (unknown) (unknown) Oxygen Delivery (units (unknown) date) Method 05/20/22 unknown) 12:31 (unknown) (no (unknown) (unknown) Oxygen Delivery (units (unknown) date) Method Room Air unknown) (unknown) (no (unknown) (unknown) Patient (units (unkno wn) date) Disposition: Home unknown) (unknown) (no (unknown) (unknown) Patient History (units (unknown) date) unknown) (unknown) (no (unknown) (unknown) Patient: (units (unkno wn) date) [place] unknown) MR#: [id number] (unknown) (no (unknown) (unknown) Prescriptions: (units (unknown) date) unknown) (unknown) (no (unknown) (unknown) Psych: mental (units ( unknown) date) status is grossly unknown) normal, congruent mood, normal affect, pleasant (unknown) (no (unknown) (unknown) Pulse Oximetry 98 (units (unknown) date) 05/20/22 12:31 unknown) (unknown) (no (unknown) (unknown) Pulse Oximetry 98 (units (unknown) date) unknown) (unknown) (no (unknown) (unknown) Pulse Rate 70 (units ( unknown) date) 05/20/22 12:31 unknown) (unknown) (no (unknown) (unknown) Pulse Rate 70 (units ( unknown) date) unknown) (unknown) (no (unknown) (unknown) ROS Unobtainable: (units (unknown) date) All systems unknown) reviewed + are unremarkable except as noted in HPI (unknown) (no (unknown) (unknown) Referrals: (units (unk nown) date) unknown) (unknown) (no (unknown) (unknown) Related Data (units (u nknown) date) unknown) (unknown) (no (unknown) (unknown) Respiratory Rate (units (unknown) date) 17 05/20/22 12:31 unknown) (unknown) (no (unknown) (unknown) Respiratory Rate (units (unknown) date) 17 unknown) (unknown) (no (unknown) (unknown) Respiratory: (units (u nknown) date) normal effort, able unknown) to speak in complete sentences, without (unknown) (no (unknown) (unknown) Restrictive lung (units (unknown) date) disease unknown) (unknown) (no (unknown) (unknown) Review of Systems (units (unknown) date) unknown) (unknown) (no (unknown) (unknown) Reviewed vitals (units [...] (unknown) Social History (units (unknown) date) (Reviewed 05/20/22 unknown) @ 13:31 by PUJA Ramirez) (unknown) (no (unknown) (unknown) Source: patient (units (unknown) date) unknown) (unknown) (no (unknown) (unknown) Stand Alone Forms: (units (unknown) date) Patient Portal/API unknown) (unknown) (no (unknown) (unknown) Stated Complaint: (units (unknown) date) Hip Pain unknown) (unknown) (no (unknown) (unknown) Status post hip (units (unknown) date) surgery unknown) (unknown) (no (unknown) (unknown) 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 (unknown) (no (unknown) (unknown) Surgical History (units (unknown) date) (Reviewed 05/20/22 unknown) @ 13:31 by PUJA Ramirez) (unknown) (no (unknown) (unknown) Takes 2 tablets (units (unknown) date) daily unknown) (unknown) (no (unknown) (unknown) Temperature 98 F (units (unknown) date) 05/20/22 12:31 unknown) (unknown) (no (unknown) (unknown) Temperature 98 F (units (unknown) date) unknown) (unknown) (no (unknown) (unknown) This is a (units (unkn own) date) 72-year-old female unknown) presents to the emergency department via EMS after (unknown) (no (unknown) (unknown) Time Seen by (units (u nknown) date) Provider: 05/20/22 unknown) 13:13 (unknown) (no (unknown) (unknown) Vital Signs - 8 hr (units (unknown) date) unknown) (unknown) (no (unknown) (unknown) Vital Signs (units (un known) date) unknown) (unknown) (no (unknown) (unknown) Vital signs: (units (u nknown) date) unknown) (unknown) (no (unknown) (unknown) XR hip w pel if (units (unknown) date) done LT 2V Stat unknown) (unknown) (no (unknown) (unknown) [ ] New medication (units (unknown) date) prescriptions sent unknown) to your pharmacy: [ ] (unknown) (no (unknown) (unknown) [ ] New medication (units (unknown) date) written as a paper unknown) prescription (unknown) (no (unknown) (unknown) [ x] No new (units (un known) date) medications given unknown) (unknown) (no (unknown) (unknown) [From ] (units ( unknown) date) unknown) (unknown) (no (unknown) (unknown) a reported (units (unk nown) date) subluxation/disloca unknown) tion of her left hip when she was transferring (unknown) (no (unknown) (unknown) adhesive tape (units ( unknown) date) AdvReac Verified unknown) 05/20/22 12:33 (unknown) (no (unknown) (unknown) alcohol intake (units (unknown) date) frequency: 0-2 unknown) drinks per day (unknown) (no (unknown) (unknown) alcohol intake: (units (unknown) date) current unknown) (unknown) (no (unknown) (unknown) ambulatory with (units (unknown) date) steady gait, unknown) without limp, feet are equal in temperature and (unknown) (no (unknown) (unknown) and below (units (unkn own) date) unknown) (unknown) (no (unknown) (unknown) and cooperative (units (unknown) date) unknown) (unknown) (no (unknown) (unknown) anticoagulants at (units (unknown) date) this time, states unknown) she only takes a baby aspirin. (unknown) (no (unknown) (unknown) appointment. Let (units (unknown) date) them know you were unknown) seen in the Emergency Department and that we (unknown) (no (unknown) (unknown) arthroplasty was (units (unknown) date) on 03/23/2022 by unknown) Dr. Au here at this hospital. She states (unknown) (no (unknown) (unknown) asked that you be (units (unknown) date) seen for follow-up. unknown) We will electronically transmit a record (unknown) (no (unknown) (unknown) aspirin 81 mg (units ( unknown) date) Tablet,Delayed unknown) Release (Dr/Ec) (unknown) (no (unknown) (unknown) aspirin 81 mg (units ( unknown) date) tablet,delayed 81 unknown) mg PO DAILY 05/10/22 05/20/22 (unknown) (no (unknown) (unknown) cholecalciferol (units (unknown) date) (vitamin D3) 50 50 unknown) mcg PO DAILY 03/25/22 05/10/22 (unknown) (no (unknown) (unknown) cholecalciferol (units (unknown) date) (vitamin D3) 50 mcg unknown) (2,000 unit) Tablet (unknown) (no (unknown) (unknown) concerning (units (unk nown) date) symptoms, such as unknown) [fever greater than 101F, chills, worsening pain, (unknown) (no (unknown) (unknown) diazepam 10 mg (units (unknown) date) tablet (Valium) 10 unknown) mg PO BEDTIME 03/25/22 05/20/22 (unknown) (no (unknown) (unknown) diazepam [Valium] (units (unknown) date) 10 mg Tablet unknown) (unknown) (no (unknown) (unknown) do not have a (units ( unknown) date) fall. Remember to unknown) review your exercises and limitations so that (unknown) (no (unknown) (unknown) establish care (units (unknown) date) with one of the unknown) [facility] primary care providers. (unknown) (no (unknown) (unknown) extension. She (units (unknown) date) states that she is unknown) able to ambulate, denies any worsening pain, (unknown) (no (unknown) (unknown) fentanyl 75 mcg/hr (units (unknown) date) patch 72 hour unknown) (unknown) (no (unknown) (unknown) fentanyl 75 mcg/hr (units (unknown) date) transdermal 75 mcg unknown) transdermal Q72H pain 03/23/22 05/10/22 (unknown) (no (unknown) (unknown) fluoxetine 40 mg (units (unknown) date) capsule (Prozac) 60 unknown) mg PO DAILY ##0 11/29/12 05/20/22 (unknown) (no (unknown) (unknown) fluoxetine (units (unk nown) date) [Prozac] 40 MG unknown) capsule (unknown) (no (unknown) (unknown) from a seated (units ( unknown) date) squatting position unknown) to standing. She states that she felt it pop (unknown) (no (unknown) (unknown) furosemide 20 mg (units (unknown) date) Tablet unknown) (unknown) (no (unknown) (unknown) furosemide 20 mg (units (unknown) date) tablet 20 mg PO unknown) DAILY 05/10/22 05/20/22 (unknown) (no (unknown) (unknown) helped to stand by (units (unknown) date) her and she unknown) was able to reduce it on her own with (unknown) (no (unknown) (unknown) household members: (units (unknown) date) significant other unknown) (unknown) (no (unknown) (unknown) lamotrigine 100 mg (units (unknown) date) tablet 100 mg PO unknown) DAILY 03/25/22 05/20/22 (unknown) (no (unknown) (unknown) lamotrigine (units (un known) date) [Lamictal] 100 mg unknown) Tablet (unknown) (no (unknown) (unknown) levothyroxine 100 (units (unknown) date) mcg Capsule unknown) (unknown) (no (unknown) (unknown) levothyroxine 100 (units (unknown) date) mcg capsule 100 mcg unknown) PO DAILY 05/10/22 05/20/22 (unknown) (no (unknown) (unknown) mcg (2,000 unit) (units (unknown) date) tablet unknown) (unknown) (no (unknown) (unknown) mg tablet (units (unkn own) date) (Percocet) 4-6) unknown) (unknown) (no (unknown) (unknown) of today's note if (units (unknown) date) your PCP is in our unknown) system (unknown) (no (unknown) (unknown) out, and she fell (units (unknown) date) down to her right unknown) knee, denies any injury, states that she was (unknown) (no (unknown) (unknown) oxycodone-acetamin (units (unknown) date) ophen 5 mg-325 1 unknown) tab PO Q6H PRN Pain (Scale Score 03/25/22 (unknown) (no (unknown) (unknown) oxycodone-acetamin (units (unknown) date) ophen [Percocet] unknown) 5-325 mg Tablet (unknown) (no (unknown) (unknown) patch (units (unkno wn) date) unknown) (unknown) (no (unknown) (unknown) persistent (units (unk nown) date) vomiting or other unknown) bothersome symptoms]. (unknown) (no (unknown) (unknown) potassium chloride (units (unknown) date) 20 mEq 20 meq PO unknown) DAILY 05/10/22 05/20/22 (unknown) (no (unknown) (unknown) potassium chloride (units (unknown) date) 20 mEq Tablet unknown) Extended Release (unknown) (no (unknown) (unknown) release (units (unkno wn) date) unknown) (unknown) (no (unknown) (unknown) resolution/reducti (units (unknown) date) on. Please return unknown) if you have any worsening hip pain. Your (unknown) (no (unknown) (unknown) states that it (units (unknown) date) hurt right unknown) afterwards but no longer does. She denies any pain at (unknown) (no (unknown) (unknown) states that she (units (unknown) date) has heart surgery unknown) coming up on 05/26/2022, her left hip (unknown) (no (unknown) (unknown) substance use (units ( unknown) date) type: does not use unknown) (unknown) (no (unknown) (unknown) sulfamethoxazole (units (unknown) date) Allergy Verified unknown) 05/20/22 12:33 (unknown) (no (unknown) (unknown) tablet,extended (units (unknown) date) release unknown) (unknown) (no (unknown) (unknown) tenderness or (units ( unknown) date) exquisite unknown) tenderness with exam. (unknown) (no (unknown) (unknown) that she does not (units (unknown) date) have a deficit, has unknown) steady gait (unknown) (no (unknown) (unknown) that she has (units (u nknown) date) aortic valve unknown) problems and an aortic aneurysm. She is not on (unknown) (no (unknown) (unknown) this evaluated. (units (unknown) date) Stay hydrated, use unknown) your walker to help support you so that you (unknown) (no (unknown) (unknown) this time and is (units (unknown) date) ambulatory. Denies unknown) any health changes over the last week, (unknown) (no (unknown) (unknown) tremulous, (units (unk nown) date) interactive and unknown) pleasant, seated but stood and walked around to show (unknown) (no (unknown) (unknown) trimethoprim [From (units (unknown) date) Septra] Allergy unknown) Verified 05/20/22 12:33 (unknown) (no (unknown) (unknown) vitamin B complex (units (unknown) date) 1 tab PO DAILY unknown) 03/25/22 05/10/22 (unknown) (no (unknown) (unknown) vitamin B complex (units (unknown) date) Tablet unknown) (unknown) (no (unknown) (unknown) warm, pulses (units (u nknown) date) palpable and equal unknown) DP and PTs, (unknown) (no (unknown) (unknown) well for your (units ( unknown) date) heart surgery. If unknown) you have worsening pain, please consider having (unknown) (no (unknown) (unknown) wheezing, stridor, (units (unknown) date) or abnormal breath unknown) sounds. No retractions or tachypnea. (unknown) (no (unknown) (unknown) x-ray does not show (units (unknown) date) any concerning unknown) findings, please avoid illness and I wish you (unknown) (no (unknown) (unknown) you do not have a (units (unknown) date) similar incident unknown) and worse injury. Result panel 255 (unknown) (no (unknown) (unknown) (no value) (units (unk nown) date) unknown) (unknown) (no (unknown) (unknown) (Lamictal) (units (unk nown) date) unknown) (unknown) (no (unknown) (unknown) *If you do not (units (unknown) date) have a primary care unknown) provider please contact [phone] to (unknown) (no (unknown) (unknown) *Please continue [...] been (units (unknown) date) diagnosed with unknown) likely a hip subluxation with self (unknown) (no (unknown) (unknown) 05/10/22 (units (unkno wn) date) unknown) (unknown) (no (unknown) (unknown) 05/20/22 12:37 (units (unknown) date) unknown) (unknown) (no (unknown) (unknown) 05/20/22 (units (unkno wn) date) unknown) (unknown) (no (unknown) (unknown) [id number] (units (unkno wn) date) unknown) (unknown) (no (unknown) (unknown) 1 tab PO DAILY (units (unknown) date) unknown) (unknown) (no (unknown) (unknown) 1 tab PO Q6H PRN (units (unknown) date) (Reason: Pain unknown) (Scale Score 4-6)) (unknown) (no (unknown) (unknown) 10 mg PO BEDTIME (units (unknown) date) unknown) (unknown) (no (unknown) (unknown) 100 mcg PO DAILY (units (unknown) date) unknown) (unknown) (no (unknown) (unknown) 100 mg PO DAILY (units (unknown) date) unknown) (unknown) (no (unknown) (unknown) 12:31 05/20/22 (units (unknown) date) unknown) (unknown) (no (unknown) (unknown) 14:31 (units (unkno wn) date) unknown) (unknown) (no (unknown) (unknown) 20 meq PO DAILY (units (unknown) date) unknown) (unknown) (no (unknown) (unknown) 20 mg PO DAILY (units (unknown) date) unknown) (unknown) (no (unknown) (unknown) 50 mcg PO DAILY (units (unknown) date) unknown) (unknown) (no (unknown) (unknown) 60 mg PO DAILY (units (unknown) date) Qty: 0 unknown) (unknown) (no (unknown) (unknown) 75 mcg transdermal (units (unknown) date) Q72H unknown) (unknown) (no (unknown) (unknown) 81 mg PO DAILY (units (unknown) date) unknown) (unknown) (no (unknown) (unknown) ? (units (unkno wn) date) unknown) (unknown) (no (unknown) (unknown) ?No fracture (units (u nknown) date) unknown) (unknown) (no (unknown) (unknown) Activity (units (unkno wn) date) Restrictions/Additi unknown) onal Instructions: (unknown) (no (unknown) (unknown) Age/Sex: 72 / F (units (unknown) date) unknown) (unknown) (no (unknown) (unknown) Allergies (units (unkn own) date) unknown) (unknown) (no (unknown) (unknown) Allergy/AdvReac (units (unknown) date) Type Severity unknown) Reaction Status Date / Time (unknown) (no (unknown) (unknown) Approved by: [place] (units (unknown) date) Dedrick Goel on unknown) 05/20/2022 at 13:18? (unknown) (no (unknown) (unknown) Blood Pressure (units (unknown) date) 127/52 L 05/20/22 unknown) 12:31 (unknown) (no (unknown) (unknown) Blood Pressure (units (unknown) date) 127/52 L 102/50 L unknown) (unknown) (no (unknown) (unknown) Bones:? Patient is (units (unknown) date) status post left unknown) hip arthroplasty, with hardware components (unknown) (no (unknown) (unknown) COMPARISON:? [facility] ([facility] date[facility], CR, XR unknown) HIP W PEL IF DONE LT 2V, 03/23/2022, 16:10. (unknown) (no (unknown) (unknown) Cardiovascular: (units (unknown) date) regular rate and unknown) rhythm, no peripheral edema, warm extremities (unknown) (no (unknown) (unknown) Chief Complaint: (units (unknown) date) Extremity Injury, unknown) Lower (unknown) (no (unknown) (unknown) Chief Complaint: (units (unknown) date) Left hip pain unknown) (unknown) (no (unknown) (unknown) Clinical (units (unkno wn) date) Impression: unknown) (unknown) (no (unknown) (unknown) Clinical decision (units (unknown) date) rules or scores unknown) evaluated: (unknown) (no (unknown) (unknown) Course of care and (units (unknown) date) re-evaluations: unknown) (unknown) (no (unknown) (unknown) Course (units (unkno wn) date) unknown) (unknown) (no (unknown) (unknown) : 1950 (units (unknown) date) Acct:[id number] unknown) (unknown) (no (unknown) (unknown) Date of Service: (units (unknown) date) 05/20/22 unknown) (unknown) (no (unknown) (unknown) Departure (units (unkn own) date) unknown) (unknown) (no (unknown) (unknown) Differential (units (u nknown) date) diagnoses include unknown) but are not limited to: Hip subluxation, (unknown) (no (unknown) (unknown) Discharge Plan (units (unknown) date) unknown) (unknown) (no (unknown) (unknown) Discussion: (units (un known) date) unknown) (unknown) (no (unknown) (unknown) ED Orders (units (unkn own) date) unknown) (unknown) (no (unknown) (unknown) ER Physician: (units ( unknown) date) Opal Lee unknown) PUJA (unknown) (no (unknown) (unknown) Emergency Report (units (unknown) date) unknown) (unknown) (no (unknown) (unknown) Exam Narrative: (units (unknown) date) unknown) (unknown) (no (unknown) (unknown) Exam (units (unkno wn) date) unknown) (unknown) (no (unknown) (unknown) FINDINGS:? (units (unk nown) date) unknown) (unknown) (no (unknown) (unknown) Family History (units (unknown) date) (Reviewed 05/20/22 unknown) @ 13:31 by PUJA Ramirez) (unknown) (no (unknown) (unknown) Father No problems (units (unknown) date) noted. unknown) (unknown) (no (unknown) (unknown) Fibromyalgia (units (u nknown) date) unknown) (unknown) (no (unknown) (unknown) GI: abdomen soft, (units (unknown) date) nontender to unknown) palpation, nondistended, without masses, rebound (unknown) (no (unknown) (unknown) General (units (unkno wn) date) unknown) (unknown) (no (unknown) (unknown) General: (units (unkno wn) date) cooperative, unknown) comfortable, in no acute distress, well groomed, mildly (unknown) (no (unknown) (unknown) Hay Au MD (units (unknown) date) [Physician] unknown) (unknown) (no (unknown) (unknown) HEENT: symmetrical (units (unknown) date) facial expressions, unknown) dry mucous membranes (unknown) (no (unknown) (unknown) HPI - Extremity (units (unknown) date) Injury (Lower) unknown) (unknown) (no (unknown) (unknown) HPI Narrative: (units (unknown) date) unknown) (unknown) (no (unknown) (unknown) Hip XR: (units (unkno wn) date) unknown) (unknown) (no (unknown) (unknown) Hip pain, History (units (unknown) date) of arthroplasty of unknown) left hip (unknown) (no (unknown) (unknown) History of Present (units (unknown) date) Illness unknown) (unknown) (no (unknown) (unknown) Home Medications (units (unknown) date) unknown) (unknown) (no (unknown) (unknown) Hypertension (units (u nknown) date) unknown) (unknown) (no (unknown) (unknown) Hypothyroidism (units (unknown) date) unknown) (unknown) (no (unknown) (unknown) I have reviewed (units (unknown) date) the patient's vital unknown) signs and nursing notes as well as prior (unknown) (no (unknown) (unknown) IMPRESSION:? Left (units (unknown) date) hip unknown) hemiarthroplasty good position.? Moderate right hip (unknown) (no (unknown) (unknown) INDICATIONS:? Hip (units (unknown) date) pain unknown) (unknown) (no (unknown) (unknown) Imaging Data (units (u nknown) date) unknown) (unknown) (no (unknown) (unknown) Independently (units ( unknown) date) reviewed imaging unknown) including: Left hip x-ray with pelvis was (unknown) (no (unknown) (unknown) Initial Vital (units ( unknown) date) Signs unknown) (unknown) (no (unknown) (unknown) Initial Vital (units ( unknown) date) Signs: unknown) (unknown) (no (unknown) (unknown) Instructions: DI (units (unknown) date) for Hip Pain unknown) (unknown) (no (unknown) (unknown) [facility] (units (unknown) date) [address] unknown) [place] [address] (unknown) (no (unknown) (unknown) Darrell Cottrell, (units (unknown) date) [Primary Care unknown) Provider] (unknown) (no (unknown) (unknown) MDM - Extremity (units (unknown) date) Injury (Lower) unknown) (unknown) (no (unknown) (unknown) MDM Narrative (units ( unknown) date) unknown) (unknown) (no (unknown) (unknown) MIPS: This (units (unk nown) date) encounter doesn't unknown) have any diagnosis' associated with MIPS criteria. (unknown) (no (unknown) (unknown) MSK: moves all (units (unknown) date) extremities, unknown) neurovascularly intact, no weakness, normal tone, (unknown) (no (unknown) (unknown) Medical History (units (unknown) date) (Reviewed 05/20/22 unknown) @ 13:31 by Opal Lee [facility]) (unknown) (no (unknown) (unknown) Medical decision (units (unknown) date) making narrative: unknown) (unknown) (no (unknown) (unknown) Medication (units (unk nown) date) Instructions unknown) Recorded Confirmed (unknown) (no (unknown) (unknown) Mode of arrival: (units (unknown) date) Ambulatory unknown) (unknown) (no (unknown) (unknown) Mother TIA (units (unk nown) date) (transient ischemic unknown) attack) (unknown) (no (unknown) (unknown) Myocardial (units (unk nown) date) infarction unknown) (unknown) (no (unknown) (unknown) Narrative (units (unkn own) date) unknown) (unknown) (no (unknown) (unknown) Neuro: normal (units ( unknown) date) speech and unknown) cognition, A+O x3, clear speech (unknown) (no (unknown) (unknown) No Action (units (unkn own) date) unknown) (unknown) (no (unknown) (unknown) Ordered: (units (unkno wn) date) unknown) (unknown) (no (unknown) (unknown) Orders (units (unkno wn) date) unknown) (unknown) (no (unknown) (unknown) Oxygen Delivery (units (unknown) date) Method 05/20/22 unknown) 12:31 (unknown) (no (unknown) (unknown) Oxygen Delivery (units (unknown) date) Method Room Air unknown) Room Air (unknown) (no (unknown) (unknown) PROCEDURE:? XR HIP (units (unknown) date) W PEL IF DONE LT 2V unknown) (unknown) (no (unknown) (unknown) Patient (units (unkno wn) date) Disposition: Home unknown) (unknown) (no (unknown) (unknown) Patient History (units (unknown) date) unknown) (unknown) (no (unknown) (unknown) Patient is (units (unk nown) date) appropriate for unknown) outpatient management. (unknown) (no (unknown) (unknown) Patient's symptoms (units (unknown) date) improved over unknown) duration of stay with above-stated therapies. (unknown) (no (unknown) (unknown) Patient: (units (unkno wn) date) [place] unknown) MR#: [id number] (unknown) (no (unknown) (unknown) Prescriptions: (units (unknown) date) unknown) (unknown) (no (unknown) (unknown) Psych: mental (units ( unknown) date) status is grossly unknown) normal, congruent mood, normal affect, pleasant (unknown) (no (unknown) (unknown) Pulse Oximetry 98 (units (unknown) date) 05/20/22 12:31 unknown) (unknown) (no (unknown) (unknown) Pulse Oximetry 98 (units (unknown) date) 98 unknown) (unknown) (no (unknown) (unknown) Pulse Rate 70 (units ( unknown) date) 05/20/22 12:31 unknown) (unknown) (no (unknown) (unknown) Pulse Rate 70 70 (units (unknown) date) unknown) (unknown) (no (unknown) (unknown) Questions are (units ( unknown) date) addressed and there unknown) is agreement with the plan and for follow-up. (unknown) (no (unknown) (unknown) ROS Unobtainable: (units (unknown) date) All systems unknown) reviewed + are unremarkable except as noted in HPI (unknown) (no (unknown) (unknown) Radiologist's (units ( unknown) date) Impression: unknown) (unknown) (no (unknown) (unknown) Referrals: (units (unk nown) date) unknown) (unknown) (no (unknown) (unknown) Related Data (units (u nknown) date) unknown) (unknown) (no (unknown) (unknown) Respiratory Rate (units (unknown) date) 17 05/20/22 12:31 unknown) (unknown) (no (unknown) (unknown) Respiratory Rate (units (unknown) date) 17 18 unknown) (unknown) (no (unknown) (unknown) Respiratory: (units (u nknown) date) normal effort, able unknown) to speak in complete sentences, without (unknown) (no (unknown) (unknown) Restrictive lung (units (unknown) date) disease unknown) (unknown) (no (unknown) (unknown) Review of Systems (units (unknown) date) unknown) (unknown) (no (unknown) (unknown) Reviewed vitals (units [...] (unknown) Social History (units (unknown) date) (Reviewed 05/20/22 unknown) @ 13:31 by Opal Lee SHIFTMAN) (unknown) (no (unknown) (unknown) Social (units (unkno wn) date) considerations that unknown) may affect disposition: none (unknown) (no (unknown) (unknown) Soft tissues:? (units (unknown) date) Overlying unknown) postoperative changes are noted.? 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 AP (units (unknown) date) pelvis and lateral unknown) view of the left hip acquired.? (unknown) (no (unknown) (unknown) Takes 2 tablets (units (unknown) date) daily unknown) (unknown) (no (unknown) (unknown) Temperature 98 F (units (unknown) date) 05/20/22 12:31 unknown) (unknown) (no (unknown) (unknown) Temperature 98 F (units (unknown) date) unknown) (unknown) (no (unknown) (unknown) This is a (units (unkn own) date) 72-year-old female unknown) presents to the emergency department via EMS after (unknown) (no (unknown) (unknown) Time Seen by (units (u nknown) date) Provider: 05/20/22 unknown) 13:13 (unknown) (no (unknown) (unknown) Vital Signs - 8 hr (units (unknown) date) unknown) (unknown) (no (unknown) (unknown) Vital Signs (units (un known) date) unknown) (unknown) (no (unknown) (unknown) Vital signs: (units (u nknown) date) unknown) (unknown) (no (unknown) (unknown) XR hip w pel if (units (unknown) date) done LT 2V Stat unknown) (unknown) (no (unknown) (unknown) [ ] New medication (units (unknown) date) prescriptions sent unknown) to your pharmacy: [ ] (unknown) (no (unknown) (unknown) [ ] New medication (units (unknown) date) written as a paper unknown) prescription (unknown) (no (unknown) (unknown) [ x] No new (units (un known) date) medications given unknown) (unknown) (no (unknown) (unknown) [From ] (units ( unknown) date) unknown) (unknown) (no (unknown) (unknown) a reported (units (unk nown) date) subluxation/disloca unknown) tion of her left hip when she was transferring (unknown) (no (unknown) (unknown) adhesive tape (units ( unknown) date) AdvReac Verified unknown) 05/20/22 12:33 (unknown) (no (unknown) (unknown) alcohol intake (units (unknown) date) frequency: 0-2 unknown) drinks per day (unknown) (no (unknown) (unknown) alcohol intake: (units (unknown) date) current unknown) (unknown) (no (unknown) (unknown) ambulatory with (units (unknown) date) steady gait, unknown) without limp, feet are equal in temperature and (unknown) (no (unknown) (unknown) and below (units (unkn own) date) unknown) (unknown) (no (unknown) (unknown) and cooperative (units (unknown) date) unknown) (unknown) (no (unknown) (unknown) anticoagulants at (units (unknown) date) this time, states unknown) she only takes a baby aspirin. (unknown) (no (unknown) (unknown) appear intact.? (units (unknown) date) unknown) (unknown) (no (unknown) (unknown) appointment. Let (units (unknown) date) them know you were unknown) seen in the Emergency Department and that we (unknown) (no (unknown) (unknown) arthroplasty was (units (unknown) date) on 03/23/2022 by unknown) Dr. Au here at this hospital. She states (unknown) (no (unknown) (unknown) asked that you be (units (unknown) date) seen for follow-up. unknown) We will electronically transmit a record (unknown) (no (unknown) (unknown) aspirin 81 mg (units ( unknown) date) Tablet,Delayed unknown) Release (/Ec) (unknown) (no (unknown) (unknown) aspirin 81 mg (units ( unknown) date) tablet,delayed 81 unknown) mg PO DAILY 05/10/22 05/20/22 (unknown) (no (unknown) (unknown) cholecalciferol (units (unknown) date) (vitamin D3) 50 50 unknown) mcg PO DAILY 03/25/22 05/10/22 (unknown) (no (unknown) (unknown) cholecalciferol (units (unknown) date) (vitamin D3) 50 mcg unknown) (2,000 unit) Tablet (unknown) (no (unknown) (unknown) concerning (units (unk nown) date) symptoms, such as unknown) [fever greater than 101F, chills, worsening pain, (unknown) (no (unknown) (unknown) densities.? (units (un known) date) unknown) (unknown) (no (unknown) (unknown) diazepam 10 mg (units (unknown) date) tablet (Valium) 10 unknown) mg PO BEDTIME 03/25/22 05/20/22 (unknown) (no (unknown) (unknown) diazepam [Valium] (units (unknown) date) 10 mg Tablet unknown) (unknown) (no (unknown) (unknown) do not have a (units ( unknown) date) fall. Remember to unknown) review your exercises and limitations so that (unknown) (no (unknown) (unknown) establish care (units (unknown) date) with one of the unknown) [facility] primary care providers. (unknown) (no (unknown) (unknown) expected (units (unkno wn) date) positions.? The hip unknown) joint appears congruent.? The visualized bony (unknown) (no (unknown) (unknown) extension. She (units (unknown) date) states that she is unknown) able to ambulate, denies any worsening pain, (unknown) (no (unknown) (unknown) fentanyl 75 mcg/hr (units (unknown) date) patch 72 hour unknown) (unknown) (no (unknown) (unknown) fentanyl 75 mcg/hr (units (unknown) date) transdermal 75 mcg unknown) transdermal Q72H pain 03/23/22 05/10/22 (unknown) (no (unknown) (unknown) fluoxetine 40 mg (units (unknown) date) capsule (Prozac) 60 unknown) mg PO DAILY ##0 11/29/12 05/20/22 (unknown) (no (unknown) (unknown) fluoxetine (units (unk nown) date) [Prozac] 40 MG unknown) capsule (unknown) (no (unknown) (unknown) from a seated (units ( unknown) date) squatting position unknown) to standing. She states that she felt it pop (unknown) (no (unknown) (unknown) furosemide 20 mg (units (unknown) date) Tablet unknown) (unknown) (no (unknown) (unknown) furosemide 20 mg (units (unknown) date) tablet 20 mg PO unknown) DAILY 05/10/22 05/20/22 (unknown) (no (unknown) (unknown) hardware failure, (units (unknown) date) pelvis unknown) fracture/injury, hemarthrosis, muscular strain/sprain, (unknown) (no (unknown) (unknown) helped to stand by (units (unknown) date) her and she unknown) was able to reduce it on her own with (unknown) (no (unknown) (unknown) household members: (units (unknown) date) significant other unknown) (unknown) (no (unknown) (unknown) in (units (unkno wn) date) unknown) (unknown) (no (unknown) (unknown) lamotrigine 100 mg (units (unknown) date) tablet 100 mg PO unknown) DAILY 03/25/22 05/20/22 (unknown) (no (unknown) (unknown) lamotrigine (units (un known) date) [Lamictal] 100 mg unknown) Tablet (unknown) (no (unknown) (unknown) levothyroxine 100 (units (unknown) date) mcg Capsule unknown) (unknown) (no (unknown) (unknown) levothyroxine 100 (units (unknown) date) mcg capsule 100 mcg unknown) PO DAILY 05/10/22 05/20/22 (unknown) (no (unknown) (unknown) mcg (2,000 unit) (units (unknown) date) tablet unknown) (unknown) (no (unknown) (unknown) mg tablet (units (unkn own) date) (Percocet) 4-6) unknown) (unknown) (no (unknown) (unknown) negative for (units (u nknown) date) unknown) (unknown) (no (unknown) (unknown) of today's note if (units (unknown) date) your PCP is in our unknown) system (unknown) (no (unknown) (unknown) osteoarthritis. (units (unknown) date) unknown) (unknown) (no (unknown) (unknown) out, and she fell (units (unknown) date) down to her right unknown) knee, denies any injury, states that she was (unknown) (no (unknown) (unknown) oxycodone-acetamin (units (unknown) date) ophen 5 mg-325 1 unknown) tab PO Q6H PRN Pain (Scale Score 03/25/22 (unknown) (no (unknown) (unknown) oxycodone-acetamin (units (unknown) date) ophen [Percocet] unknown) 5-325 mg Tablet (unknown) (no (unknown) (unknown) patch (units (unkno wn) date) unknown) (unknown) (no (unknown) (unknown) persistent (units (unk nown) date) vomiting or other unknown) bothersome symptoms]. (unknown) (no (unknown) (unknown) potassium chloride (units (unknown) date) 20 mEq 20 meq PO unknown) DAILY 05/10/22 05/20/22 (unknown) (no (unknown) (unknown) potassium chloride (units (unknown) date) 20 mEq Tablet unknown) Extended Release (unknown) (no (unknown) (unknown) records if (units (unk nown) date) available. unknown) (unknown) (no (unknown) (unknown) release (units (unkno wn) date) unknown) (unknown) (no (unknown) (unknown) resolution/reducti (units (unknown) date) on. Please return unknown) if you have any worsening hip pain. Your (unknown) (no (unknown) (unknown) states that it (units (unknown) date) hurt right unknown) afterwards but no longer does. She denies any pain at (unknown) (no (unknown) (unknown) states that she (units (unknown) date) has heart surgery unknown) coming up on 05/26/2022, her left hip (unknown) (no (unknown) (unknown) structures (units (unk nown) date) unknown) (unknown) (no (unknown) (unknown) substance use (units ( unknown) date) type: does not use unknown) (unknown) (no (unknown) (unknown) sulfamethoxazole (units (unknown) date) Allergy Verified unknown) 05/20/22 12:33 (unknown) (no (unknown) (unknown) tablet,extended (units (unknown) date) release unknown) (unknown) (no (unknown) (unknown) tenderness or (units ( unknown) date) exquisite unknown) tenderness with exam. (unknown) (no (unknown) (unknown) that she does not (units (unknown) date) have a deficit, has unknown) steady gait (unknown) (no (unknown) (unknown) that she has (units (u nknown) date) aortic valve unknown) problems and an aortic aneurysm. She is not on (unknown) (no (unknown) (unknown) this evaluated. (units (unknown) date) Stay hydrated, use unknown) your walker to help support you so that you (unknown) (no (unknown) (unknown) this time and is (units (unknown) date) ambulatory. Denies unknown) any health changes over the last week, (unknown) (no (unknown) (unknown) tissue (units (unkno wn) date) unknown) (unknown) (no (unknown) (unknown) tremulous, (units (unk nown) date) interactive and unknown) pleasant, seated but stood and walked around to show (unknown) (no (unknown) (unknown) trimethoprim [From (units (unknown) date) Septra] Allergy unknown) Verified 05/20/22 12:33 (unknown) (no (unknown) (unknown) vitamin B complex (units (unknown) date) 1 tab PO DAILY unknown) 03/25/22 05/10/22 (unknown) (no (unknown) (unknown) vitamin B complex (units (unknown) date) Tablet unknown) (unknown) (no (unknown) (unknown) warm, pulses (units (u nknown) date) palpable and equal unknown) DP and PTs, (unknown) (no (unknown) (unknown) well for your (units ( unknown) date) heart surgery. If unknown) you have worsening pain, please consider having (unknown) (no (unknown) (unknown) wheezing, stridor, (units (unknown) date) or abnormal breath unknown) sounds. No retractions or tachypnea. (unknown) (no (unknown) (unknown) x-ray does not show (units (unknown) date) any concerning unknown) findings, please avoid illness and I wish you (unknown) (no (unknown) (unknown) you do not have a (units (unknown) date) similar incident unknown) and worse injury. Result panel 256 (unknown) (no (unknown) (unknown) (no value) (units (unk nown) date) unknown) (unknown) (no (unknown) (unknown) <Electronically (units (unknown) date) signed by Opal benitez) Merissa REYNOLDSP Crew> (unknown) (no (unknown) (unknown) (Lamictal) (units (unk nown) date) unknown) (unknown) (no (unknown) (unknown) *If you do not (units (unknown) date) have a primary care unknown) provider please contact [phone] to (unknown) (no (unknown) (unknown) *Please continue [...] been (units (unknown) date) diagnosed with unknown) likely a hip subluxation with self (unknown) (no (unknown) (unknown) 05/10/22 (units (unkno wn) date) unknown) (unknown) (no (unknown) (unknown) 05/20/22 12:37 (units (unknown) date) unknown) (unknown) (no (unknown) (unknown) 05/20/22 1444 (units ( unknown) date) unknown) (unknown) (no (unknown) (unknown) 05/20/22 (units (unkno wn) date) unknown) (unknown) (no (unknown) (unknown) [id number] (units (unkno wn) date) unknown) (unknown) (no (unknown) (unknown) 1 tab PO DAILY (units (unknown) date) unknown) (unknown) (no (unknown) (unknown) 1 tab PO Q6H PRN (units (unknown) date) (Reason: Pain unknown) (Scale Score 4-6)) (unknown) (no (unknown) (unknown) 10 mg PO BEDTIME (units (unknown) date) unknown) (unknown) (no (unknown) (unknown) 100 mcg PO DAILY (units (unknown) date) unknown) (unknown) (no (unknown) (unknown) 100 mg PO DAILY (units (unknown) date) unknown) (unknown) (no (unknown) (unknown) 12:31 05/20/22 (units (unknown) date) unknown) (unknown) (no (unknown) (unknown) 14:31 (units (unkno wn) date) unknown) (unknown) (no (unknown) (unknown) 20 meq PO DAILY (units (unknown) date) unknown) (unknown) (no (unknown) (unknown) 20 mg PO DAILY (units (unknown) date) unknown) (unknown) (no (unknown) (unknown) 50 mcg PO DAILY (units (unknown) date) unknown) (unknown) (no (unknown) (unknown) 60 mg PO DAILY (units (unknown) date) Qty: 0 unknown) (unknown) (no (unknown) (unknown) 75 mcg transdermal (units (unknown) date) Q72H unknown) (unknown) (no (unknown) (unknown) 81 mg PO DAILY (units (unknown) date) unknown) (unknown) (no (unknown) (unknown) ? (units (unkno wn) date) unknown) (unknown) (no (unknown) (unknown) ?No fracture (units (u nknown) date) unknown) (unknown) (no (unknown) (unknown) Activity (units (unkno wn) date) Restrictions/Additi unknown) onal Instructions: (unknown) (no (unknown) (unknown) Age/Sex: 72 / F (units (unknown) date) unknown) (unknown) (no (unknown) (unknown) Allergies (units (unkn own) date) unknown) (unknown) (no (unknown) (unknown) Allergy/AdvReac (units (unknown) date) Type Severity unknown) Reaction Status Date / Time (unknown) (no (unknown) (unknown) Approved by: Alexsander Dasilvaunits (unknown) dateNickie Goel M.D. on unknown) 05/20/2022 at 13:18? (unknown) (no (unknown) (unknown) Blood Pressure (units (unknown) date) 127/52 L 05/20/22 unknown) 12:31 (unknown) (no (unknown) (unknown) Blood Pressure (units (unknown) date) 127/52 L 102/50 L unknown) (unknown) (no (unknown) (unknown) Bones:? Patient is (units (unknown) date) status post left unknown) hip arthroplasty, with hardware components (unknown) (no (unknown) (unknown) [facility], [facility]) HIP W PEL IF DONE LT 2V, 03/23/2022, 16:10. (unknown) (no (unknown) (unknown) Cardiovascular: (units (unknown) date) regular rate and unknown) rhythm, no peripheral edema, warm extremities (unknown) (no (unknown) (unknown) Chief Complaint: (units (unknown) date) Extremity Injury, unknown) Lower (unknown) (no (unknown) (unknown) Chief Complaint: (units (unknown) date) Left hip pain unknown) (unknown) (no (unknown) (unknown) Clinical (units (unkno wn) date) Impression: unknown) (unknown) (no (unknown) (unknown) Course of care and (units (unknown) date) re-evaluations: unknown) Patient is wearing her fentanyl patch, (unknown) (no (unknown) (unknown) Course (units (unkno wn) date) unknown) (unknown) (no (unknown) (unknown) : 1950 (units (unknown) date) Acct:[id number] unknown) (unknown) (no (unknown) (unknown) Date of Service: (units (unknown) date) 05/20/22 unknown) (unknown) (no (unknown) (unknown) Departure (units (unkn own) date) unknown) (unknown) (no (unknown) (unknown) Differential (units (u nknown) date) diagnoses include unknown) but are not limited to: Hip subluxation, (unknown) (no (unknown) (unknown) Discharge Plan (units (unknown) date) unknown) (unknown) (no (unknown) (unknown) ED Orders (units (unkn own) date) unknown) (unknown) (no (unknown) (unknown) ER Physician: (units ( unknown) date) Opal Lee unknown) SHIFTMAN (unknown) (no (unknown) (unknown) Emergency Report (units (unknown) date) unknown) (unknown) (no (unknown) (unknown) Exam Narrative: (units (unknown) date) unknown) (unknown) (no (unknown) (unknown) Exam (units (unkno wn) date) unknown) (unknown) (no (unknown) (unknown) FINDINGS:? (units (unk nown) date) unknown) (unknown) (no (unknown) (unknown) Family History (units (unknown) date) (Reviewed 05/20/22 unknown) @ 13:31 by Opal Lee [facility]) (unknown) (no (unknown) (unknown) Father No problems (units (unknown) date) noted. unknown) (unknown) (no (unknown) (unknown) Fibromyalgia (units (u nknown) date) unknown) (unknown) (no (unknown) (unknown) GI: abdomen soft, (units (unknown) date) nontender to unknown) palpation, nondistended, without masses, rebound (unknown) (no (unknown) (unknown) General (units (unkno wn) date) unknown) (unknown) (no (unknown) (unknown) General: (units (unkno wn) date) cooperative, unknown) comfortable, in no acute distress, well groomed, mildly (unknown) (no (unknown) (unknown) Hay Au MD (units (unknown) date) [Physician] unknown) (unknown) (no (unknown) (unknown) HEENT: symmetrical (units (unknown) date) facial expressions, unknown) dry mucous membranes (unknown) (no (unknown) (unknown) HPI - Extremity (units (unknown) date) Injury (Lower) unknown) (unknown) (no (unknown) (unknown) HPI Narrative: (units (unknown) date) unknown) (unknown) (no (unknown) (unknown) Hip XR: (units (unkno wn) date) unknown) (unknown) (no (unknown) (unknown) Hip pain, History (units (unknown) date) of arthroplasty of unknown) left hip (unknown) (no (unknown) (unknown) History of Present (units (unknown) date) Illness unknown) (unknown) (no (unknown) (unknown) Home Medications (units (unknown) date) unknown) (unknown) (no (unknown) (unknown) Hypertension (units (u nknown) date) unknown) (unknown) (no (unknown) (unknown) Hypothyroidism (units (unknown) date) unknown) (unknown) (no (unknown) (unknown) I have reviewed (units (unknown) date) the patient's vital unknown) signs and nursing notes as well as prior (unknown) (no (unknown) (unknown) IMPRESSION:? Left (units (unknown) date) hip unknown) hemiarthroplasty good position.? Moderate right hip (unknown) (no (unknown) (unknown) INDICATIONS:? Hip (units (unknown) date) pain unknown) (unknown) (no (unknown) (unknown) Imaging Data (units (u nknown) date) unknown) (unknown) (no (unknown) (unknown) Independently (units ( unknown) date) reviewed imaging unknown) including: Left hip x-ray with pelvis was (unknown) (no (unknown) (unknown) Initial Vital (units ( unknown) date) Signs unknown) (unknown) (no (unknown) (unknown) Initial Vital (units ( unknown) date) Signs: unknown) (unknown) (no (unknown) (unknown) Instructions: DI (units (unknown) date) for Hip Pain unknown) (unknown) (no (unknown) (unknown) [facility] (units (unknown) date) [address] [place] [address] Street unknown) [place] [address] (unknown) (no (unknown) (unknown) Darrell Cottrell, (units (unknown) date) [Primary Care unknown) Provider] (unknown) (no (unknown) (unknown) MDM - Extremity (units (unknown) date) Injury (Lower) unknown) (unknown) (no (unknown) (unknown) MDM Narrative (units ( unknown) date) unknown) (unknown) (no (unknown) (unknown) MIPS: This (units (unk nown) date) encounter doesn't unknown) have any diagnosis' associated with MIPS criteria. (unknown) (no (unknown) (unknown) MSK: moves all (units (unknown) date) extremities, unknown) neurovascularly intact, no weakness, normal tone, (unknown) (no (unknown) (unknown) Medical History (units (unknown) date) (Reviewed 05/20/22 unknown) @ 13:31 by Opal [employer], SHIFTMAN) (unknown) (no (unknown) (unknown) Medical decision (units (unknown) date) making narrative: unknown) (unknown) (no (unknown) (unknown) Medication (units (unk nown) date) Instructions unknown) Recorded Confirmed (unknown) (no (unknown) (unknown) Mode of arrival: (units (unknown) date) Ambulatory unknown) (unknown) (no (unknown) (unknown) Mother TIA (units (unk nown) date) (transient ischemic unknown) attack) (unknown) (no (unknown) (unknown) Myocardial (units (unk nown) date) infarction unknown) (unknown) (no (unknown) (unknown) Narrative (units (unkn own) date) unknown) (unknown) (no (unknown) (unknown) Neuro: normal (units ( unknown) date) speech and unknown) cognition, A+O x3, clear speech (unknown) (no (unknown) (unknown) No Action (units (unkn own) date) unknown) (unknown) (no (unknown) (unknown) Ordered: (units (unkno wn) date) unknown) (unknown) (no (unknown) (unknown) Orders (units (unkno wn) date) unknown) (unknown) (no (unknown) (unknown) Oxygen Delivery (units (unknown) date) Method 05/20/22 unknown) 12:31 (unknown) (no (unknown) (unknown) Oxygen Delivery (units (unknown) date) Method Room Air unknown) Room Air (unknown) (no (unknown) (unknown) PROCEDURE:? XR HIP (units (unknown) date) W PEL IF DONE LT 2V unknown) (unknown) (no (unknown) (unknown) Patient (units (unkno wn) date) Disposition: Home unknown) (unknown) (no (unknown) (unknown) Patient History (units (unknown) date) unknown) (unknown) (no (unknown) (unknown) Patient is (units (unk nown) date) appropriate for unknown) outpatient management. (unknown) (no (unknown) (unknown) Patient (units (unkno wn) date) understands to unknown) follow-up with her hip surgeon as needed and to keep a (unknown) (no (unknown) (unknown) Patient: (units (unkno wn) date) [place] unknown) MR#: [id number] (unknown) (no (unknown) (unknown) Prescriptions: (units (unknown) date) unknown) (unknown) (no (unknown) (unknown) Psych: mental (units ( unknown) date) status is grossly unknown) normal, congruent mood, normal affect, pleasant (unknown) (no (unknown) (unknown) Pulse Oximetry 98 (units (unknown) date) 05/20/22 12:31 unknown) (unknown) (no (unknown) (unknown) Pulse Oximetry 98 (units (unknown) date) 98 unknown) (unknown) (no (unknown) (unknown) Pulse Rate 70 (units ( unknown) date) 05/20/22 12:31 unknown) (unknown) (no (unknown) (unknown) Pulse Rate 70 70 (units (unknown) date) unknown) (unknown) (no (unknown) (unknown) Questions are (units ( unknown) date) addressed and there unknown) is agreement with the plan and for follow-up. (unknown) (no (unknown) (unknown) ROS Unobtainable: (units (unknown) date) All systems unknown) reviewed + are unremarkable except as noted in HPI (unknown) (no (unknown) (unknown) Radiologist's (units ( unknown) date) Impression: unknown) (unknown) (no (unknown) (unknown) Referrals: (units (unk nown) date) unknown) (unknown) (no (unknown) (unknown) Related Data (units (u nknown) date) unknown) (unknown) (no (unknown) (unknown) Respiratory Rate (units (unknown) date) 17 05/20/22 12:31 unknown) (unknown) (no (unknown) (unknown) Respiratory Rate (units (unknown) date) 17 18 unknown) (unknown) (no (unknown) (unknown) Respiratory: (units (u nknown) date) normal effort, able unknown) to speak in complete sentences, without (unknown) (no (unknown) (unknown) Restrictive lung (units (unknown) date) disease unknown) (unknown) (no (unknown) (unknown) Review of Systems (units (unknown) date) unknown) (unknown) (no (unknown) (unknown) Reviewed vitals (units [...] (unknown) Social History (units (unknown) date) (Reviewed 05/20/22 unknown) @ 13:31 by PUJA Ramirez) (unknown) (no (unknown) (unknown) Social (units (unkno wn) date) considerations that unknown) may affect disposition: none (unknown) (no (unknown) (unknown) Soft tissues:? (units (unknown) date) Overlying unknown) postoperative changes are noted.? 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 AP (units (unknown) date) pelvis and lateral unknown) view of the left hip acquired.? (unknown) (no (unknown) (unknown) Takes 2 tablets (units (unknown) date) daily unknown) (unknown) (no (unknown) (unknown) Temperature 98 F (units (unknown) date) 05/20/22 12:31 unknown) (unknown) (no (unknown) (unknown) Temperature 98 F (units (unknown) date) unknown) (unknown) (no (unknown) (unknown) This is a (units (unkn own) date) 72-year-old female unknown) presents to the emergency department via EMS after (unknown) (no (unknown) (unknown) Time Seen by (units (u nknown) date) Provider: 05/20/22 unknown) 13:13 (unknown) (no (unknown) (unknown) Vital Signs - 8 hr (units (unknown) date) unknown) (unknown) (no (unknown) (unknown) Vital Signs (units (un known) date) unknown) (unknown) (no (unknown) (unknown) Vital signs: (units (u nknown) date) unknown) (unknown) (no (unknown) (unknown) When her blood (units ( unknown) date) pressure was being unknown) checked it was initially low and she was moved (unknown) (no (unknown) (unknown) XR hip w pel if (units (unknown) date) done LT 2V Stat unknown) (unknown) (no (unknown) (unknown) [ ] New medication (units (unknown) date) prescriptions sent unknown) to your pharmacy: [ ] (unknown) (no (unknown) (unknown) [ ] New medication (units (unknown) date) written as a paper unknown) prescription (unknown) (no (unknown) (unknown) [ x] No new (units (un known) date) medications given unknown) (unknown) (no (unknown) (unknown) [From ] (units ( unknown) date) unknown) (unknown) (no (unknown) (unknown) a reported (units (unk nown) date) subluxation/disloca unknown) tion of her left hip when she was transferring (unknown) (no (unknown) (unknown) adhesive tape (units ( unknown) date) AdvReac Verified unknown) 05/20/22 12:33 (unknown) (no (unknown) (unknown) after this as (units ( unknown) date) well. unknown) (unknown) (no (unknown) (unknown) alcohol intake (units (unknown) date) frequency: 0-2 unknown) drinks per day (unknown) (no (unknown) (unknown) alcohol intake: (units (unknown) date) current unknown) (unknown) (no (unknown) (unknown) ambulatory with (units (unknown) date) steady gait, unknown) without limp, feet are equal in temperature and (unknown) (no (unknown) (unknown) and below (units (unkn own) date) unknown) (unknown) (no (unknown) (unknown) and cooperative (units (unknown) date) unknown) (unknown) (no (unknown) (unknown) anticoagulants at (units (unknown) date) this time, states unknown) she only takes a baby aspirin. (unknown) (no (unknown) (unknown) appear intact.? (units (unknown) date) unknown) (unknown) (no (unknown) (unknown) appointment. Let (units (unknown) date) them know you were unknown) seen in the Emergency Department and that we (unknown) (no (unknown) (unknown) arthroplasty was (units (unknown) date) on 03/23/2022 by unknown) Dr. Au here at this hospital. She states (unknown) (no (unknown) (unknown) asked that you be (units (unknown) date) seen for follow-up. unknown) We will electronically transmit a record (unknown) (no (unknown) (unknown) aspirin 81 mg (units ( unknown) date) Tablet,Delayed unknown) Release (Dr/Ec) (unknown) (no (unknown) (unknown) aspirin 81 mg (units ( unknown) date) tablet,delayed 81 unknown) mg PO DAILY 05/10/22 05/20/22 (unknown) (no (unknown) (unknown) cholecalciferol (units (unknown) date) (vitamin D3) 50 50 unknown) mcg PO DAILY 03/25/22 05/10/22 (unknown) (no (unknown) (unknown) cholecalciferol (units (unknown) date) (vitamin D3) 50 mcg unknown) (2,000 unit) Tablet (unknown) (no (unknown) (unknown) concerning (units (unk nown) date) symptoms, such as unknown) [fever greater than 101F, chills, worsening pain, (unknown) (no (unknown) (unknown) consumed prior to (units (unknown) date) leaving and she unknown) felt better and her vitals have been rechecked (unknown) (no (unknown) (unknown) denies any for (units (unknown) date) pain medication, unknown) she is ambulatory, she walked around 2 times, (unknown) (no (unknown) (unknown) densities.? (units (un known) date) unknown) (unknown) (no (unknown) (unknown) diazepam 10 mg (units (unknown) date) tablet (Valium) 10 unknown) mg PO BEDTIME 03/25/22 05/20/22 (unknown) (no (unknown) (unknown) diazepam [Valium] (units (unknown) date) 10 mg Tablet unknown) (unknown) (no (unknown) (unknown) different types (units (unknown) date) her systolic was unknown) over 100, she did not have any dizziness, (unknown) (no (unknown) (unknown) do not have a (units ( unknown) date) fall. Remember to unknown) review your exercises and limitations so that (unknown) (no (unknown) (unknown) establish care (units (unknown) date) with one of the unknown) [facility] primary care providers. (unknown) (no (unknown) (unknown) expected (units (unkno wn) date) positions.? The hip unknown) joint appears congruent.? The visualized bony (unknown) (no (unknown) (unknown) extension. She (units (unknown) date) states that she is unknown) able to ambulate, denies any worsening pain, (unknown) (no (unknown) (unknown) fentanyl 75 mcg/hr (units (unknown) date) patch 72 hour unknown) (unknown) (no (unknown) (unknown) fentanyl 75 mcg/hr (units (unknown) date) transdermal 75 mcg unknown) transdermal Q72H pain 03/23/22 05/10/22 (unknown) (no (unknown) (unknown) fluoxetine 40 mg (units (unknown) date) capsule (Prozac) 60 unknown) mg PO DAILY ##0 11/29/12 05/20/22 (unknown) (no (unknown) (unknown) fluoxetine (units (unk nown) date) [Prozac] 40 MG unknown) capsule (unknown) (no (unknown) (unknown) from a seated (units ( unknown) date) squatting position unknown) to standing. She states that she felt it pop (unknown) (no (unknown) (unknown) furosemide 20 mg (units (unknown) date) Tablet unknown) (unknown) (no (unknown) (unknown) furosemide 20 mg (units (unknown) date) tablet 20 mg PO unknown) DAILY 05/10/22 05/20/22 (unknown) (no (unknown) (unknown) hardware failure, (units (unknown) date) pelvis unknown) fracture/injury, hemarthrosis, muscular strain/sprain, (unknown) (no (unknown) (unknown) helped to stand by (units (unknown) date) her and she unknown) was able to reduce it on her own with (unknown) (no (unknown) (unknown) household members: (units (unknown) date) significant other unknown) (unknown) (no (unknown) (unknown) improved over (units ( unknown) date) duration of stay unknown) with above-stated therapies. (unknown) (no (unknown) (unknown) in (units (unkno wn) date) unknown) (unknown) (no (unknown) (unknown) lamotrigine 100 mg (units (unknown) date) tablet 100 mg PO unknown) DAILY 03/25/22 05/20/22 (unknown) (no (unknown) (unknown) lamotrigine (units (un known) date) [Lamictal] 100 mg unknown) Tablet (unknown) (no (unknown) (unknown) levothyroxine 100 (units (unknown) date) mcg Capsule unknown) (unknown) (no (unknown) (unknown) levothyroxine 100 (units (unknown) date) mcg capsule 100 mcg unknown) PO DAILY 05/10/22 05/20/22 (unknown) (no (unknown) (unknown) lightheadedness or (units (unknown) date) any other symptoms unknown) whatsoever. She states that she just has (unknown) (no (unknown) (unknown) mcg (2,000 unit) (units (unknown) date) tablet unknown) (unknown) (no (unknown) (unknown) mg tablet (units (unkn own) date) (Percocet) 4-6) unknown) (unknown) (no (unknown) (unknown) negative for (units (u nknown) date) hardware problem or unknown) fracture (unknown) (no (unknown) (unknown) not had anything (units (unknown) date) to eat or drink yet unknown) today and was given a full meal which she (unknown) (no (unknown) (unknown) of today's note if (units (unknown) date) your PCP is in our unknown) system (unknown) (no (unknown) (unknown) osteoarthritis. (units (unknown) date) unknown) (unknown) (no (unknown) (unknown) out, and she fell (units (unknown) date) down to her right unknown) knee, denies any injury, states that she was (unknown) (no (unknown) (unknown) over to a room to (units (unknown) date) recheck it from the unknown) hallway. When this was rechecked on 2 (unknown) (no (unknown) (unknown) oxycodone-acetamin (units (unknown) date) ophen 5 mg-325 1 unknown) tab PO Q6H PRN Pain (Scale Score 03/25/22 (unknown) (no (unknown) (unknown) oxycodone-acetamin (units (unknown) date) ophen [Percocet] unknown) 5-325 mg Tablet (unknown) (no (unknown) (unknown) patch (units (unkno wn) date) unknown) (unknown) (no (unknown) (unknown) persistent (units (unk nown) date) vomiting or other unknown) bothersome symptoms]. (unknown) (no (unknown) (unknown) potassium chloride (units (unknown) date) 20 mEq 20 meq PO unknown) DAILY 05/10/22 05/20/22 (unknown) (no (unknown) (unknown) potassium chloride (units (unknown) date) 20 mEq Tablet unknown) Extended Release (unknown) (no (unknown) (unknown) records if (units (unk nown) date) available. unknown) (unknown) (no (unknown) (unknown) release (units (unkno wn) date) unknown) (unknown) (no (unknown) (unknown) resolution/reducti (units (unknown) date) on. Please return unknown) if you have any worsening hip pain. Your (unknown) (no (unknown) (unknown) she was given (units ( unknown) date) juice, crackers and unknown) a sandwich as she has not had any food today. (unknown) (no (unknown) (unknown) states that it (units (unknown) date) hurt right unknown) afterwards but no longer does. She denies any pain at (unknown) (no (unknown) (unknown) states that she (units (unknown) date) has heart surgery unknown) coming up on 05/26/2022, her left hip (unknown) (no (unknown) (unknown) structures (units (unk nown) date) unknown) (unknown) (no (unknown) (unknown) substance use (units ( unknown) date) type: does not use unknown) (unknown) (no (unknown) (unknown) sulfamethoxazole (units (unknown) date) Allergy Verified unknown) 05/20/22 12:33 (unknown) (no (unknown) (unknown) tablet,extended (units (unknown) date) release unknown) (unknown) (no (unknown) (unknown) tenderness or (units ( unknown) date) exquisite unknown) tenderness with exam. (unknown) (no (unknown) (unknown) that she does not (units (unknown) date) have a deficit, has unknown) steady gait (unknown) (no (unknown) (unknown) that she has (units (u nknown) date) aortic valve unknown) problems and an aortic aneurysm. She is not on (unknown) (no (unknown) (unknown) the hand book that (units (unknown) date) she brought with unknown) her from surgery. Patient's symptoms (unknown) (no (unknown) (unknown) this evaluated. (units (unknown) date) Stay hydrated, use unknown) your walker to help support you so that you (unknown) (no (unknown) (unknown) this time and is (units (unknown) date) ambulatory. Denies unknown) any health changes over the last week, (unknown) (no (unknown) (unknown) tissue (units (unkno wn) date) unknown) (unknown) (no (unknown) (unknown) tremulous, (units (unk nown) date) interactive and unknown) pleasant, seated but stood and walked around to show (unknown) (no (unknown) (unknown) trimethoprim [From (units (unknown) date) Septra] Allergy unknown) Verified 05/20/22 12:33 (unknown) (no (unknown) (unknown) vitamin B complex (units (unknown) date) 1 tab PO DAILY unknown) 03/25/22 05/10/22 (unknown) (no (unknown) (unknown) vitamin B complex (units (unknown) date) Tablet unknown) (unknown) (no (unknown) (unknown) walker near her at (units (unknown) date) all times, we unknown) reviewed her range of motion limitations and (unknown) (no (unknown) (unknown) warm, pulses (units (u nknown) date) palpable and equal unknown) DP and PTs, (unknown) (no (unknown) (unknown) well for your (units ( unknown) date) heart surgery. If unknown) you have worsening pain, please consider having (unknown) (no (unknown) (unknown) wheezing, stridor, (units (unknown) date) or abnormal breath unknown) sounds. No retractions or tachypnea. (unknown) (no (unknown) (unknown) x-ray does not show (units (unknown) date) any concerning unknown) findings, please avoid illness and I wish you (unknown) (no (unknown) (unknown) you do not have a (units (unknown) date) similar incident unknown) and worse injury. Result panel 257 (unknown) (no (unknown) (unknown) (no value) (units (unk nown) date) unknown) (unknown) (no (unknown) (unknown) <Electronically (units (unknown) date) signed by Opal LUO Crew> (unknown) (no (unknown) (unknown) <Electronically (units (unknown) date) signed by Al Olsen D.O.> (unknown) (no (unknown) (unknown) <Opal Lee, (units (unknown) date) SHIFTMAN - Last Filed: unknown) 05/20/22 14:44> (unknown) (no (unknown) (unknown) <Al Olsen (units (unknown) date) DO - Last Filed: unknown) 05/20/22 14:48> (unknown) (no (unknown) (unknown) (Lamictal) (units (unk nown) date) unknown) (unknown) (no (unknown) (unknown) *If you do not (units (unknown) date) have a primary care unknown) provider please contact [phone] to (unknown) (no (unknown) (unknown) *Please continue [...] been (units (unknown) date) diagnosed with unknown) likely a hip subluxation with self (unknown) (no (unknown) (unknown) 05/10/22 (units (unkno wn) date) unknown) (unknown) (no (unknown) (unknown) 05/20/22 12:37 (units (unknown) date) unknown) (unknown) (no (unknown) (unknown) 05/20/22 1444 (units ( unknown) date) unknown) (unknown) (no (unknown) (unknown) 05/20/22 1448 (units ( unknown) date) unknown) (unknown) (no (unknown) (unknown) 05/20/22 (units (unkno wn) date) unknown) (unknown) (no (unknown) (unknown) [id number] (units (unkno wn) date) unknown) (unknown) (no (unknown) (unknown) 1 tab PO DAILY (units (unknown) date) unknown) (unknown) (no (unknown) (unknown) 1 tab PO Q6H PRN (units (unknown) date) (Reason: Pain unknown) (Scale Score 4-6)) (unknown) (no (unknown) (unknown) 10 mg PO BEDTIME (units (unknown) date) unknown) (unknown) (no (unknown) (unknown) 100 mcg PO DAILY (units (unknown) date) unknown) (unknown) (no (unknown) (unknown) 100 mg PO DAILY (units (unknown) date) unknown) (unknown) (no (unknown) (unknown) 12:31 05/20/22 (units (unknown) date) unknown) (unknown) (no (unknown) (unknown) 14:31 (units (unkno wn) date) unknown) (unknown) (no (unknown) (unknown) 20 meq PO DAILY (units (unknown) date) unknown) (unknown) (no (unknown) (unknown) 20 mg PO DAILY (units (unknown) date) unknown) (unknown) (no (unknown) (unknown) 50 mcg PO DAILY (units (unknown) date) unknown) (unknown) (no (unknown) (unknown) 60 mg PO DAILY (units (unknown) date) Qty: 0 unknown) (unknown) (no (unknown) (unknown) 75 mcg transdermal (units (unknown) date) Q72H unknown) (unknown) (no (unknown) (unknown) 81 mg PO DAILY (units (unknown) date) unknown) (unknown) (no (unknown) (unknown) ? (units (unkno wn) date) unknown) (unknown) (no (unknown) (unknown) ?No fracture (units (u nknown) date) unknown) (unknown) (no (unknown) (unknown) Activity (units (unkno wn) date) Restrictions/Additi unknown) onal Instructions: (unknown) (no (unknown) (unknown) Age/Sex: 72 / F (units (unknown) date) unknown) (unknown) (no (unknown) (unknown) Allergies (units (unkn own) date) unknown) (unknown) (no (unknown) (unknown) Allergy/AdvReac (units (unknown) date) Type Severity unknown) Reaction Status Date / Time (unknown) (no (unknown) (unknown) Approved by: Alexsander Dasilvaunits (unknown) date) Dedrick Goel on unknown) 05/20/2022 at 13:18? (unknown) (no (unknown) (unknown) Blood Pressure (units (unknown) date) 127/52 L 05/20/22 unknown) 12:31 (unknown) (no (unknown) (unknown) Blood Pressure (units (unknown) date) 127/52 L 102/50 L unknown) (unknown) (no (unknown) (unknown) Bones:? Patient is (units (unknown) date) status post left unknown) hip arthroplasty, with hardware components (unknown) (no (unknown) (unknown) [facility], XR unknown) HIP W PEL IF DONE LT 2V, 03/23/2022, 16:10. (unknown) (no (unknown) (unknown) Cardiovascular: (units (unknown) date) regular rate and unknown) rhythm, no peripheral edema, warm extremities (unknown) (no (unknown) (unknown) Chief Complaint: (units (unknown) date) Extremity Injury, unknown) Lower (unknown) (no (unknown) (unknown) Chief Complaint: (units (unknown) date) Left hip pain unknown) (unknown) (no (unknown) (unknown) Clinical (units (unkno wn) date) Impression: unknown) (unknown) (no (unknown) (unknown) Cosign (units (unkno wn) date) unknown) (unknown) (no (unknown) (unknown) Course of care and (units (unknown) date) re-evaluations: unknown) Patient is wearing her fentanyl patch, (unknown) (no (unknown) (unknown) Course (units (unkno wn) date) unknown) (unknown) (no (unknown) (unknown) : 1950 (units (unknown) date) Acct:[id number] unknown) (unknown) (no (unknown) (unknown) Date of Service: (units (unknown) date) 05/20/22 unknown) (unknown) (no (unknown) (unknown) Departure (units (unkn own) date) unknown) (unknown) (no (unknown) (unknown) Differential (units (u nknown) date) diagnoses include unknown) but are not limited to: Hip subluxation, (unknown) (no (unknown) (unknown) Discharge Plan (units (unknown) date) unknown) (unknown) (no (unknown) (unknown) Dr Olsen Co-Sign (units (unknown) date) Statement: I was unknown) available for consultation during this (unknown) (no (unknown) (unknown) ED Attending (units (u nknown) date) Cosignature unknown) Attestation: (unknown) (no (unknown) (unknown) ED Orders (units (unkn own) date) unknown) (unknown) (no (unknown) (unknown) ER Physician: (units ( unknown) date) Opal Lee unknown) PUJA (unknown) (no (unknown) (unknown) Emergency Report (units (unknown) date) unknown) (unknown) (no (unknown) (unknown) Exam Narrative: (units (unknown) date) unknown) (unknown) (no (unknown) (unknown) Exam (units (unkno wn) date) unknown) (unknown) (no (unknown) (unknown) FINDINGS:? (units (unk nown) date) unknown) (unknown) (no (unknown) (unknown) Family History (units (unknown) date) (Reviewed 05/20/22 unknown) @ 13:31 by Opal Lee [facility]) (unknown) (no (unknown) (unknown) Father No problems (units (unknown) date) noted. unknown) (unknown) (no (unknown) (unknown) Fibromyalgia (units (u nknown) date) unknown) (unknown) (no (unknown) (unknown) GI: abdomen soft, (units (unknown) date) nontender to unknown) palpation, nondistended, without masses, rebound (unknown) (no (unknown) (unknown) General (units (unkno wn) date) unknown) (unknown) (no (unknown) (unknown) General: (units (unkno wn) date) cooperative, unknown) comfortable, in no acute distress, well groomed, mildly (unknown) (no (unknown) (unknown) Hay Au MD (units (unknown) date) [Physician] unknown) (unknown) (no (unknown) (unknown) HEENT: symmetrical (units (unknown) date) facial expressions, unknown) dry mucous membranes (unknown) (no (unknown) (unknown) HPI - Extremity (units (unknown) date) Injury (Lower) unknown) (unknown) (no (unknown) (unknown) HPI Narrative: (units (unknown) date) unknown) (unknown) (no (unknown) (unknown) Hip XR: (units (unkno wn) date) unknown) (unknown) (no (unknown) (unknown) Hip pain, History (units (unknown) date) of arthroplasty of unknown) left hip (unknown) (no (unknown) (unknown) History of Present (units (unknown) date) Illness unknown) (unknown) (no (unknown) (unknown) Home Medications (units (unknown) date) unknown) (unknown) (no (unknown) (unknown) Hypertension (units (u nknown) date) unknown) (unknown) (no (unknown) (unknown) Hypothyroidism (units (unknown) date) unknown) (unknown) (no (unknown) (unknown) I have reviewed (units (unknown) date) the patient's vital unknown) signs and nursing notes as well as prior (unknown) (no (unknown) (unknown) IMPRESSION:? Left (units (unknown) date) hip unknown) hemiarthroplasty good position.? Moderate right hip (unknown) (no (unknown) (unknown) INDICATIONS:? Hip (units (unknown) date) pain unknown) (unknown) (no (unknown) (unknown) Imaging Data (units (u nknown) date) unknown) (unknown) (no (unknown) (unknown) Independently (units ( unknown) date) reviewed imaging unknown) including: Left hip x-ray with pelvis was (unknown) (no (unknown) (unknown) Initial Vital (units ( unknown) date) Signs unknown) (unknown) (no (unknown) (unknown) Initial Vital (units ( unknown) date) Signs: unknown) (unknown) (no (unknown) (unknown) Instructions: DI (units (unknown) date) for Hip Pain unknown) (unknown) (no (unknown) (unknown) [facility] (units (unknown) date) [address] [place] [address] unknown) [place] [address] (unknown) (no (unknown) (unknown) Darrell Cottrell, (units (unknown) date) MD [Primary Care unknown) Provider] (unknown) (no (unknown) (unknown) MDM - Extremity (units (unknown) date) Injury (Lower) unknown) (unknown) (no (unknown) (unknown) MDM Narrative (units ( unknown) date) unknown) (unknown) (no (unknown) (unknown) MIPS: This (units (unk nown) date) encounter doesn't unknown) have any diagnosis' associated with MIPS criteria. (unknown) (no (unknown) (unknown) MSK: moves all (units (unknown) date) extremities, unknown) neurovascularly intact, no weakness, normal tone, (unknown) (no (unknown) (unknown) Medical History (units (unknown) date) (Reviewed 05/20/22 unknown) @ 13:31 by Opal Lee [facility]) (unknown) (no (unknown) (unknown) Medical decision (units (unknown) date) making narrative: unknown) (unknown) (no (unknown) (unknown) Medication (units (unk nown) date) Instructions unknown) Recorded Confirmed (unknown) (no (unknown) (unknown) Mode of arrival: (units (unknown) date) Ambulatory unknown) (unknown) (no (unknown) (unknown) Mother TIA (units (unk nown) date) (transient ischemic unknown) attack) (unknown) (no (unknown) (unknown) Myocardial (units (unk nown) date) infarction unknown) (unknown) (no (unknown) (unknown) Narrative (units (unkn own) date) unknown) (unknown) (no (unknown) (unknown) Neuro: normal (units ( unknown) date) speech and unknown) cognition, A+O x3, clear speech (unknown) (no (unknown) (unknown) No Action (units (unkn own) date) unknown) (unknown) (no (unknown) (unknown) Ordered: (units (unkno wn) date) unknown) (unknown) (no (unknown) (unknown) Orders (units (unkno wn) date) unknown) (unknown) (no (unknown) (unknown) Oxygen Delivery (units (unknown) date) Method 05/20/22 unknown) 12:31 (unknown) (no (unknown) (unknown) Oxygen Delivery (units (unknown) date) Method Room Air unknown) Room Air (unknown) (no (unknown) (unknown) PROCEDURE:? XR HIP (units (unknown) date) W PEL IF DONE LT 2V unknown) (unknown) (no (unknown) (unknown) Patient (units (unkno wn) date) Disposition: Home unknown) (unknown) (no (unknown) (unknown) Patient History (units (unknown) date) unknown) (unknown) (no (unknown) (unknown) Patient is (units (unk nown) date) appropriate for unknown) outpatient management. (unknown) (no (unknown) (unknown) Patient (units (unkno wn) date) understands to unknown) follow-up with her hip surgeon as needed and to keep a (unknown) (no (unknown) (unknown) Patient: (units (unkno wn) date) [place] unknown) MR#: [id number] (unknown) (no (unknown) (unknown) Prescriptions: (units (unknown) date) unknown) (unknown) (no (unknown) (unknown) Psych: mental (units ( unknown) date) status is grossly unknown) normal, congruent mood, normal affect, pleasant (unknown) (no (unknown) (unknown) Pulse Oximetry 98 (units (unknown) date) 05/20/22 12:31 unknown) (unknown) (no (unknown) (unknown) Pulse Oximetry 98 (units (unknown) date) 98 unknown) (unknown) (no (unknown) (unknown) Pulse Rate 70 (units ( unknown) date) 05/20/22 12:31 unknown) (unknown) (no (unknown) (unknown) Pulse Rate 70 70 (units (unknown) date) unknown) (unknown) (no (unknown) (unknown) Questions are (units ( unknown) date) addressed and there unknown) is agreement with the plan and for follow-up. (unknown) (no (unknown) (unknown) ROS Unobtainable: (units (unknown) date) All systems unknown) reviewed + are unremarkable except as noted in HPI (unknown) (no (unknown) (unknown) Radiologist's (units ( unknown) date) Impression: unknown) (unknown) (no (unknown) (unknown) Referrals: (units (unk nown) date) unknown) (unknown) (no (unknown) (unknown) Related Data (units (u nknown) date) unknown) (unknown) (no (unknown) (unknown) Respiratory Rate (units (unknown) date) 17 05/20/22 12:31 unknown) (unknown) (no (unknown) (unknown) Respiratory Rate (units (unknown) date) 17 18 unknown) (unknown) (no (unknown) (unknown) Respiratory: (units (u nknown) date) normal effort, able unknown) to speak in complete sentences, without (unknown) (no (unknown) (unknown) Restrictive lung (units (unknown) date) disease unknown) (unknown) (no (unknown) (unknown) Review of Systems (units (unknown) date) unknown) (unknown) (no (unknown) (unknown) Reviewed vitals (units [...] (unknown) Social History (units (unknown) date) (Reviewed 05/20/22 unknown) @ 13:31 by PUJA Ramirez) (unknown) (no (unknown) (unknown) Social (units (unkno wn) date) considerations that unknown) may affect disposition: none (unknown) (no (unknown) (unknown) Soft tissues:? (units (unknown) date) Overlying unknown) postoperative changes are noted.? 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 AP (units (unknown) date) pelvis and lateral unknown) view of the left hip acquired.? (unknown) (no (unknown) (unknown) Takes 2 tablets (units (unknown) date) daily unknown) (unknown) (no (unknown) (unknown) Temperature 98 F (units (unknown) date) 05/20/22 12:31 unknown) (unknown) (no (unknown) (unknown) Temperature 98 F (units (unknown) date) unknown) (unknown) (no (unknown) (unknown) This is a (units (unkn own) date) 72-year-old female unknown) presents to the emergency department via EMS after (unknown) (no (unknown) (unknown) Time Seen by (units (u nknown) date) Provider: 05/20/22 unknown) 13:13 (unknown) (no (unknown) (unknown) Vital Signs - 8 hr (units (unknown) date) unknown) (unknown) (no (unknown) (unknown) Vital Signs (units (un known) date) unknown) (unknown) (no (unknown) (unknown) Vital signs: (units (u nknown) date) unknown) (unknown) (no (unknown) (unknown) When her blood (units ( unknown) date) pressure was being unknown) checked it was initially low and she was moved (unknown) (no (unknown) (unknown) XR hip w pel if (units (unknown) date) done LT 2V Stat unknown) (unknown) (no (unknown) (unknown) [ ] New medication (units (unknown) date) prescriptions sent unknown) to your pharmacy: [ ] (unknown) (no (unknown) (unknown) [ ] New medication (units (unknown) date) written as a paper unknown) prescription (unknown) (no (unknown) (unknown) [ x] No new (units (un known) date) medications given unknown) (unknown) (no (unknown) (unknown) [From ] (units ( unknown) date) unknown) (unknown) (no (unknown) (unknown) a reported (units (unk nown) date) subluxation/disloca unknown) tion of her left hip when she was transferring (unknown) (no (unknown) (unknown) adhesive tape (units ( unknown) date) AdvReac Verified unknown) 05/20/22 12:33 (unknown) (no (unknown) (unknown) administrative (units (unknown) date) purposes only. I unknown) did not have direct contact with this patient (unknown) (no (unknown) (unknown) after this as (units ( unknown) date) well. unknown) (unknown) (no (unknown) (unknown) alcohol intake (units (unknown) date) frequency: 0-2 unknown) drinks per day (unknown) (no (unknown) (unknown) alcohol intake: (units (unknown) date) current unknown) (unknown) (no (unknown) (unknown) ambulatory with (units (unknown) date) steady gait, unknown) without limp, feet are equal in temperature and (unknown) (no (unknown) (unknown) and below (units (unkn own) date) unknown) (unknown) (no (unknown) (unknown) and cooperative (units (unknown) date) unknown) (unknown) (no (unknown) (unknown) anticoagulants at (units (unknown) date) this time, states unknown) she only takes a baby aspirin. (unknown) (no (unknown) (unknown) appear intact.? (units (unknown) date) unknown) (unknown) (no (unknown) (unknown) appointment. Let (units (unknown) date) them know you were unknown) seen in the Emergency Department and that we (unknown) (no (unknown) (unknown) arthroplasty was (units (unknown) date) on 03/23/2022 by unknown) Dr. Au here at this hospital. She states (unknown) (no (unknown) (unknown) asked that you be (units (unknown) date) seen for follow-up. unknown) We will electronically transmit a record (unknown) (no (unknown) (unknown) aspirin 81 mg (units ( unknown) date) Tablet,Delayed unknown) Release (/Ec) (unknown) (no (unknown) (unknown) aspirin 81 mg (units ( unknown) date) tablet,delayed 81 unknown) mg PO DAILY 05/10/22 05/20/22 (unknown) (no (unknown) (unknown) cholecalciferol (units (unknown) date) (vitamin D3) 50 50 unknown) mcg PO DAILY 03/25/22 05/10/22 (unknown) (no (unknown) (unknown) cholecalciferol (units (unknown) date) (vitamin D3) 50 mcg unknown) (2,000 unit) Tablet (unknown) (no (unknown) (unknown) concerning (units (unk nown) date) symptoms, such as unknown) [fever greater than 101F, chills, worsening pain, (unknown) (no (unknown) (unknown) consumed prior to (units (unknown) date) leaving and she unknown) felt better and her vitals have been rechecked (unknown) (no (unknown) (unknown) denies any for (units (unknown) date) pain medication, unknown) she is ambulatory, she walked around 2 times, (unknown) (no (unknown) (unknown) densities.? (units (un known) date) unknown) (unknown) (no (unknown) (unknown) diazepam 10 mg (units (unknown) date) tablet (Valium) 10 unknown) mg PO BEDTIME 03/25/22 05/20/22 (unknown) (no (unknown) (unknown) diazepam [Valium] (units (unknown) date) 10 mg Tablet unknown) (unknown) (no (unknown) (unknown) different types (units (unknown) date) her systolic was unknown) over 100, she did not have any dizziness, (unknown) (no (unknown) (unknown) do not have a (units ( unknown) date) fall. Remember to unknown) review your exercises and limitations so that (unknown) (no (unknown) (unknown) during this visit. (units (unknown) date) They were seen unknown) independently by the [facility]. (unknown) (no (unknown) (unknown) establish care (units (unknown) date) with one of the unknown) [facility] primary care providers. (unknown) (no (unknown) (unknown) expected (units (unkno wn) date) positions.? The hip unknown) joint appears congruent.? The visualized bony (unknown) (no (unknown) (unknown) extension. She (units (unknown) date) states that she is unknown) able to ambulate, denies any worsening pain, (unknown) (no (unknown) (unknown) fentanyl 75 mcg/hr (units (unknown) date) patch 72 hour unknown) (unknown) (no (unknown) (unknown) fentanyl 75 mcg/hr (units (unknown) date) transdermal 75 mcg unknown) transdermal Q72H pain 03/23/22 05/10/22 (unknown) (no (unknown) (unknown) fluoxetine 40 mg (units (unknown) date) capsule (Prozac) 60 unknown) mg PO DAILY ##0 11/29/12 05/20/22 (unknown) (no (unknown) (unknown) fluoxetine (units (unk nown) date) [Prozac] 40 MG unknown) capsule (unknown) (no (unknown) (unknown) from a seated (units ( unknown) date) squatting position unknown) to standing. She states that she felt it pop (unknown) (no (unknown) (unknown) furosemide 20 mg (units (unknown) date) Tablet unknown) (unknown) (no (unknown) (unknown) furosemide 20 mg (units (unknown) date) tablet 20 mg PO unknown) DAILY 05/10/22 05/20/22 (unknown) (no (unknown) (unknown) hardware failure, (units (unknown) date) pelvis unknown) fracture/injury, hemarthrosis, muscular strain/sprain, (unknown) (no (unknown) (unknown) helped to stand by (units (unknown) date) her and she unknown) was able to reduce it on her own with (unknown) (no (unknown) (unknown) household members: (units (unknown) date) significant other unknown) (unknown) (no (unknown) (unknown) improved over (units ( unknown) date) duration of stay unknown) with above-stated therapies. (unknown) (no (unknown) (unknown) in (units (unkno wn) date) unknown) (unknown) (no (unknown) (unknown) lamotrigine 100 mg (units (unknown) date) tablet 100 mg PO unknown) DAILY 03/25/22 05/20/22 (unknown) (no (unknown) (unknown) lamotrigine (units (un known) date) [Lamictal] 100 mg unknown) Tablet (unknown) (no (unknown) (unknown) levothyroxine 100 (units (unknown) date) mcg Capsule unknown) (unknown) (no (unknown) (unknown) levothyroxine 100 (units (unknown) date) mcg capsule 100 mcg unknown) PO DAILY 05/10/22 05/20/22 (unknown) (no (unknown) (unknown) lightheadedness or (units (unknown) date) any other symptoms unknown) whatsoever. She states that she just has (unknown) (no (unknown) (unknown) mcg (2,000 unit) (units (unknown) date) tablet unknown) (unknown) (no (unknown) (unknown) mg tablet (units (unkn own) date) (Percocet) 4-6) unknown) (unknown) (no (unknown) (unknown) negative for (units (u nknown) date) hardware problem or unknown) fracture (unknown) (no (unknown) (unknown) not had anything (units (unknown) date) to eat or drink yet unknown) today and was given a full meal which she (unknown) (no (unknown) (unknown) of today's note if (units (unknown) date) your PCP is in our unknown) system (unknown) (no (unknown) (unknown) osteoarthritis. (units (unknown) date) unknown) (unknown) (no (unknown) (unknown) out, and she fell (units (unknown) date) down to her right unknown) knee, denies any injury, states that she was (unknown) (no (unknown) (unknown) over to a room to (units (unknown) date) recheck it from the unknown) hallway. When this was rechecked on 2 (unknown) (no (unknown) (unknown) oxycodone-acetamin (units (unknown) date) ophen 5 mg-325 1 unknown) tab PO Q6H PRN Pain (Scale Score 03/25/22 (unknown) (no (unknown) (unknown) oxycodone-acetamin (units (unknown) date) ophen [Percocet] unknown) 5-325 mg Tablet (unknown) (no (unknown) (unknown) patch (units (unkno wn) date) unknown) (unknown) (no (unknown) (unknown) patient's (units (unkn own) date) emergency unknown) department visit. This chart is signed by myself for (unknown) (no (unknown) (unknown) persistent (units (unk nown) date) vomiting or other unknown) bothersome symptoms]. (unknown) (no (unknown) (unknown) potassium chloride (units (unknown) date) 20 mEq 20 meq PO unknown) DAILY 05/10/22 05/20/22 (unknown) (no (unknown) (unknown) potassium chloride (units (unknown) date) 20 mEq Tablet unknown) Extended Release (unknown) (no (unknown) (unknown) records if (units (unk nown) date) available. unknown) (unknown) (no (unknown) (unknown) release (units (unkno wn) date) unknown) (unknown) (no (unknown) (unknown) resolution/reducti (units (unknown) date) on. Please return unknown) if you have any worsening hip pain. Your (unknown) (no (unknown) (unknown) she was given (units ( unknown) date) juice, crackers and unknown) a sandwich as she has not had any food today. (unknown) (no (unknown) (unknown) states that it (units (unknown) date) hurt right unknown) afterwards but no longer does. She denies any pain at (unknown) (no (unknown) (unknown) states that she (units (unknown) date) has heart surgery unknown) coming up on 05/26/2022, her left hip (unknown) (no (unknown) (unknown) structures (units (unk nown) date) unknown) (unknown) (no (unknown) (unknown) substance use (units ( unknown) date) type: does not use unknown) (unknown) (no (unknown) (unknown) sulfamethoxazole (units (unknown) date) Allergy Verified unknown) 05/20/22 12:33 (unknown) (no (unknown) (unknown) tablet,extended (units (unknown) date) release unknown) (unknown) (no (unknown) (unknown) tenderness or (units ( unknown) date) exquisite unknown) tenderness with exam. (unknown) (no (unknown) (unknown) that she does not (units (unknown) date) have a deficit, has unknown) steady gait (unknown) (no (unknown) (unknown) that she has (units (u nknown) date) aortic valve unknown) problems and an aortic aneurysm. She is not on (unknown) (no (unknown) (unknown) the hand book that (units (unknown) date) she brought with unknown) her from surgery. Patient's symptoms (unknown) (no (unknown) (unknown) this evaluated. (units (unknown) date) Stay hydrated, use unknown) your walker to help support you so that you (unknown) (no (unknown) (unknown) this time and is (units (unknown) date) ambulatory. Denies unknown) any health changes over the last week, (unknown) (no (unknown) (unknown) tissue (units (unkno wn) date) unknown) (unknown) (no (unknown) (unknown) tremulous, (units (unk nown) date) interactive and unknown) pleasant, seated but stood and walked around to show (unknown) (no (unknown) (unknown) trimethoprim [From (units (unknown) date) Septra] Allergy unknown) Verified 05/20/22 12:33 (unknown) (no (unknown) (unknown) vitamin B complex (units (unknown) date) 1 tab PO DAILY unknown) 03/25/22 05/10/22 (unknown) (no (unknown) (unknown) vitamin B complex (units (unknown) date) Tablet unknown) (unknown) (no (unknown) (unknown) walker near her at (units (unknown) date) all times, we unknown) reviewed her range of motion limitations and (unknown) (no (unknown) (unknown) warm, pulses (units (u nknown) date) palpable and equal unknown) DP and PTs, (unknown) (no (unknown) (unknown) well for your (units ( unknown) date) heart surgery. If unknown) you have worsening pain, please consider having (unknown) (no (unknown) (unknown) wheezing, stridor, (units (unknown) date) or abnormal breath unknown) sounds. No retractions or tachypnea. (unknown) (no (unknown) (unknown) x-ray does not show (units (unknown) date) any concerning unknown) findings, please avoid illness and I wish you (unknown) (no (unknown) (unknown) you do not have a (units (unknown) date) similar incident unknown) and worse injury. Social History date description facility 2022-05-09 00:00 Ex-smoker (finding) [facility] 2022-05-10 00:00 Ex-smoker (finding) [facility] 2022-05-20 00:00 Ex-smoker (finding) [facility] Vital Signs date measurement value units 2022-05-09 00:00 temperature_metric 36.67 C 2022-05-09 00:00 temperature_standard 98 F 2022-05-09 00:00 weight_metric 44.45 kg 2022-05-09 00:00 weight_standard 98 lb 2022-05-10 00:00 BP_diastolic 53 mmHg 2022-05-10 00:00 BP_diastolic 68 mmHg 2022-05-10 00:00 BP_systolic 116 mmHg 2022-05-10 00:00 BP_systolic 123 mmHg 2022-05-10 00:00 heart_rate 41 /min 2022-05-10 00:00 heart_rate 43 /min 2022-05-10 00:00 height_metric 149.86 cm 2022-05-10 00:00 height_standard 59 in 2022-05-10 00:00 o2_saturation 97 % 2022-05-10 00:00 o2_saturation 98 % 2022-05-10 00:00 respiration_rate 42 /min 2022-05-10 00:00 temperature_metric 36.44 C 2022-05-10 00:00 temperature_standard 97.6 F 2022-05-10 00:00 weight_metric 39.5 kg 2022-05-10 00:00 weight_standard 87.08 lb 2022-05-20 00:00 BP_diastolic 53 mmHg 2022-05-20 00:00 BP_systolic 109 mmHg 2022-05-20 00:00 heart_rate 60 /min 2022-05-20 00:00 o2_saturation 98 % 2022-05-20 00:00 respiration_rate 18 /min 2022-05-20 00:00 temperature_metric 36.67 C 2022-05-20 00:00 temperature_standard 98 F 2022-05-20 00:00 weight_metric 43.99 kg 2022-05-20 00:00 weight_standard 96.98 lb
[2022-07-07 16:42] LABS: ALBUMIN 2.8 g/dL (3.2-5.5); ALBUMIN/GLOBULIN RATIO 0.8 (1.0-2.2); BILIRUBIN,TOTAL 0.6 mg/dL (0.2-1.0); CALCIUM 8.1 mg/dL (8.5-10.3); CREATININE 0.7 mg/dL (0.4-1.0); POTASSIUM 3.3 mmol/L (3.5-5.0); TOTAL PROTEIN 6.1 g/dL (6.7-8.2)
--- NOTE | 2022-07-07 16:46 | XRAY Report ---
PROCEDURE: Chest 1 View X-Ray INDICATIONS: dyspnea TECHNIQUE: One view of the chest was acquired. COMPARISON: None. FINDINGS: Surgical changes and devices: Median sternotomy. Bony cement injection within the thoracic spine. Lungs and pleura: No pneumothorax. Small bilateral pleural effusions. Moderate diffuse reticulonodul ar pulmonary opacity. Moderate bibasilar airspace opacity. Mediastinum: Mediastinal contours appear normal. Heart size is normal. Bones and chest wall: No suspicious bony lesions. Overlying soft tissues appear unremarkable. IMPRESSION: 1. Moderate edema versus atypical pneumonia. 2. Bibasilar atelectasis versus pneumonia. Reviewed by: Marty Rowe MD on 07/07/2022 4:44 PM PDT Approved by: Marty Rowe MD on 07/07/2022 4:44 PM PDT Station ID: [id number]
[2022-07-07] MEDS ORDERED: CEFEPIME 2 GM in SODIUM CHLORIDE 0.9% MINIBAG 100 ML IV STA (17:06)
[2022-07-07] MEDS ORDERED: VANCOMYCIN INJ 1.5 GM in SODIUM CHLORIDE 0.9% 500 ML IV STA (17:06)
[2022-07-07] MEDS ORDERED: levoFLOXacin 750 MG/150 ML 750 MG/150 ML BAG IV STA (17:08)
[2022-07-07 17:20] LABS: B. PARAPERTUSSIS- RESP PCR PAN NOT DETECTED; B. PERTUSSIS- RESP PCR PANEL NOT DETECTED; C. PNEUMONIAE- RESP PCR PANEL NOT DETECTED; CORONAVIRUS 229E-RESP PCR NOT DETECTED; CORONAVIRUS HKU1-RESP PCR NOT DETECTED; CORONAVIRUS NL63-RESP PCR NOT DETECTED; CORONAVIRUS OC43-RESP PCR NOT DETECTED; HUMAN METAPNEUMOVIRUS DETECTED; INFLUENZA A- RESP PCR PANEL NOT DETECTED; INFLUENZA B - RESP PCR PANEL NOT DETECTED; M. PNEUMONIAE- RESP PCR PANEL NOT DETECTED; PARAINFLUENZA VIRUS 1 NOT DETECTED; PARAINFLUENZA VIRUS 2 NOT DETECTED; PARAINFLUENZA VIRUS 3 NOT DETECTED; PARAINFLUENZA VIRUS 4 NOT DETECTED; RHINOVIRUS/ENTEROVIRUS NOT DETECTED; RSV- RESP PCR PANEL NOT DETECTED; SARS-CoV-2 -RESP PCR PANEL DETECTED
--- NOTE | 2022-07-07 19:19 | HISTORY & PHYSICAL EXAMINATION ---
Chief Complaint - Chief Complaint Chief Complaint: SOB, cough History of Present Illness - Admitted From Admitted From:: ER - History Obtained From Records Reviewed: Yes History obtained from: Patient, staff, chart Exam Limitations: H&P was conducted via video remotely, using Access Cart. - History of Present Illness HPI Comment/Other: 72 yo F with Interstitial Pulmonary Fibrosis, HTN, HLD, DM type 2, Fibromyalgia GERD, Hypothyroidism, Anxiety and s/p AAA Repair presented to the ER with c/o 10 day h/o cough, increased SOB and 2 day h/o productive sputum. Pt was dx'd with IPF at age 25, does not see a Ui Engineer, is not on Home O2. Pt had a hip replacement done on 03/23/22. On 05/06/22, she was admitted to [facility] for an elective ascending aorta repair. She was then in the ICU x 23 days. She was last tested for COVID-19 7 days ago and was negative. Pt was transferred to SNF 8 days ago. She did not like the care the she received at the SNF, so she checked herself out 4 days ago and went home. Her has been her caregiver at home, but it has been hard on him. Pt first noticed a cough while at the hospital. She has a baseline Shortness of breath; this increased. Then, 2 days ago, her cough became productive of white/yellow sputum. +weakness, +fatigue, +decreased PO appetite. Pt says that she has lost 20 lbs in 1 week. No F/C. No CP. No abdo pain/N/V/urinary symptoms. EMS reported T100F. In the ER, SpO2 80s, 95% on 4L NC O2, K 3.3, Glc 123, BNP 89, Hgb 10.7 (Hgb 12.3 in 03/2022) Images not available; per ER Physician: CXR: moderate edema versus atypical pneumonia, bibasilar atelectasis versus pneumonia Pt was given Cefpime, Vancomycin, LVQ in the ER. History - Past Medical History Cardiovascular: reports: Hypertension, High cholesterol Respiratory: reports: Shortness of breath Neuro: reports: Migraines Endocrine/Autoimmune: reports: Type 2 diabetes GI: reports: GERD LIEN SEARCHER: reports: None : reports: None HEENT: reports: None Psych: reports: Depression Musculoskeletal: reports: Fibromyalgia, Chronic back pain Derm: reports: None MRSA Hx?: No - Past Surgical History General: reports: Cholecystectomy Ortho: reports: Carpal Tunnel surgery HEENT: reports: Cataracts, Tonsil/Adenoidectomy - POLST Patient has POLST: No Meds/Allgy - Home Medications Home Medications: Ambulatory Orders Medication Instructions Recorded Confirmed Diazepam [Valium] 10 mg PO QID 11/28/12 03/11/22 Levothyroxine Sodium [Synthroid] 75 mcg PO DAILY 11/28/12 03/11/22 fentaNYL [Duragesic 75mcg patch] 1 patch TD DAILY 02/23/14 03/11/22 Cholecalciferol (Vitamin D3) 2,000 unit PO DAILY 03/15/19 03/11/22 [Vitamin D3] Metoprolol Tartrate [Lopressor] 25 mg PO BID 03/15/19 03/11/22 oxyCODONE/ACET 5/325 [Percocet 5 1 each PO Q4-6H 03/15/19 03/11/22 mg/325 mg] Fluoxetine HCl 60 mg PO DAILY 03/11/22 03/11/22 lamoTRIgine [LaMICtal] 25 mg PO DAILY 03/11/22 03/11/22 Aspirin [Lorain Aspirin] 81 mg PO DAILY #30 tab 03/13/22 Nitroglycerin [Nitrostat] 0.4 mg SL Q5MIN PRN #25 tablet 03/13/22 Furosemide [Lasix] 10 mg PO DAILY 6 Days #3 tablet 04/07/22 - Allergies Allergies/Adverse Reactions: Allergies Allergy/AdvReac Type Severity Reaction Status Date / Time Penicillins Allergy unknown Verified 04/07/22 18:57 streptomycin [Streptomycin] Allergy unknown Verified 04/07/22 18:57 Sulfa (Sulfonamide Allergy Rash Verified 04/07/22 18:57 Antibiotics) adhesive tape Allergy unknown Uncoded 04/07/22 18:57 Review of Systems - All Other Systems All Other Systems: reports: Reviewed and negative Exam - Vital Signs Reviewed Vital Signs: Yes Vital Signs: Vital Signs x48h Temp Pulse Resp BP Pulse Ox O2 Flow Rate 07/07/22 18:30 67 23 98/49 L 96 4 07/07/22 18:00 67 19 100/51 L 94 4 07/07/22 17:30 70 21 109/54 L 93 4 07/07/22 17:14 68 14 96/54 L 94 4 07/07/22 16:35 66 18 115/54 L 96 07/07/22 16:28 68 22 4 07/07/22 16:07 37.4 C 71 22 101/53 L 91 L - Physical Exam General Appearance: positive: No acute distress, Alert, Mild distress Eyes Bilateral: positive: EOMI, No scleral icterus Respiratory: positive: Other ( Access cart stethoscope not working; per ER Provider: Decreased Bibasilar BS, +scattered wheezing) Cardiovascular: positive: Other (Access cart stethoscope not working; per ER Provider: RRR, no murmurs) Abdomen: positive: Other (per ER Provider: non-distended, NT, Soft) Extremities: positive: Other (moves all extrem, no edema) Neurologic/Psychiatric: positive: Oriented x3, CN's nml (2-12), Mood/affect nml Conclusion/Plan - Problem List (1) Acute respiratory failure Conclusion/Plan: Acute Respiratory Failure with Hypoxia Pneumonia Interstitial Pulmonary Fibrosis COVID-19+, Metapneumo virus + Shortness of breath Cough -EMS reported T100F. -SpO2 80s, 95% on 4L NC O2, BNP 89, COVID-19+, Metapneumo virus + -Images not available; per ER Physician: CXR: moderate edema versus atypical pneumonia, bibasilar atelectasis versus pneumonia -Pt was given Cefipime, Vancomycin, LVQ in the ER. -admit to Med tele with isolation -continue O2 support -supportive care -start Decadron -consider Remdesiver in AM -continue Cefipime/Vancomycin/LVQ for possible HAP -check Procalcitonin; if normal, can stop antibiotics -pt will need outpatient Ui Engineer for IPF Hypokalemia -K 3.3 -supplement; monitor Anemia, normocytic -Hgb 10.7 (Hgb 12.3 in 03/2022 prior to surgery) -most likely d/t recent surgery -monitor HTN HLD -continue home medications: Metoprolol, ASA H/o DM type 2 -resolved? -Glc 123 -not on home medications -check Hgba1c Anxiety -continue home medications: Diazepam, Prozac, Lamictal Fibromyalgia -continue home medications: Percocet Hypothyroidism, -continue home medications: Levothyroxine VTE Prophylaxis: Lovenox Code Status: D/W pt; she is Full Code ~Carmen Wesley MD Hospitalist - Lab Results Fish Bones: 07/07/22 16:15 07/07/22 16:15
[2022-07-07] MEDS ORDERED: ONDANSETRON ODT 4 MG TABLET TL PRN (19:38)
[2022-07-07] MEDS ORDERED: IPRATROPIUM 0.2 MG/ML NEB INH PRN (19:38)
[2022-07-07] MEDS ORDERED: ONDANSETRON 4 MG/2 ML VIAL IVP PRN (19:38)
[2022-07-07] MEDS ORDERED: SODIUM CHLORIDE FLUSH 0.9% 10 ML SYRINGE IVP PRN (19:38)
[2022-07-07] MEDS ORDERED: NITROGLYCERIN SL 0.4 MG TABLET SL PRN (19:47)
[2022-07-07] MEDS ORDERED: diazePAM 5 MG TABLET PO PRN ×2 (19:53→21:00)
[2022-07-07] MEDS ORDERED: SODIUM CHLORIDE 0.9% 1,000 ML IV SCH (20:00)
[2022-07-07] MEDS ORDERED: oxyCODONE/ACET 5/325 Prepack 4 PO SCH (20:00)
[2022-07-07] MEDS ORDERED: DIAZEPAM 2 MG PO SCH (21:00)
[2022-07-07] MEDS ORDERED: PROCHLORPERAZINE 10 MG/2 ML VIAL IVP PRN (21:31)
[2022-07-07] MEDS ORDERED: POTASSIUM CHLORIDE 20 MEQ TABLET PO ONE (21:31)
[2022-07-07] MEDS ORDERED: oxyCODONE 5 MG TABLET PO PRN (21:35)
[2022-07-07] MEDS: METOPROLOL TARTRATE 25 MG TABLET PO SCH (21:57)
[2022-07-07] MEDS: ALBUTEROL NEB 2.5 MG/3 ML INH SCH (22:04)
[2022-07-08] MEDS: SODIUM CHLORIDE FLUSH 0.9% 10 ML SYRINGE IVP SCH ×3 (02:12→17:25)
[2022-07-08] MEDS: ALBUTEROL NEB 2.5 MG/3 ML INH SCH ×5 (05:23→17:30)
[2022-07-08] MEDS: CEFEPIME 2 GM in SODIUM CHLORIDE 0.9% MINIBAG 100 ML IV SCH (06:07)
[2022-07-08 06:22] LABS: BASOPHILS % (AUTO) 0.3 %; EOSINOPHILS # (AUTO) 0.1 10^3/uL (0.0-0.7); EOSINOPHILS % (AUTO) 0.8 %; HCT - HEMATOCRIT 32.4 % (37.0-47.0); HGB - HEMOGLOBIN 9.8 g/dL (12.0-16.0); LYMPHOCYTES # (AUTO) 1.2 10^3/uL (1.5-3.5); MEAN CORPUSCULAR HEMOGLOBIN 28.3 pg (27.0-31.0); MEAN CORPUSCULAR HGB CONC 30.2 g/dL (32.0-36.0); MEAN CORPUSCULAR VOLUME 93.6 fL (81.0-99.0); MEAN PLATELET VOLUME 11.2 fL (7.9-10.8); MONOCYTES # (AUTO) 0.4 10^3/uL (0.0-1.0); MONOCYTES % (AUTO) 6.3 %; NEUTROPHILS % (AUTO) 67.7 %; PLT - PLATELET COUNT 222 10^3/uL (130-450); RED BLOOD COUNT 3.46 10^6/uL (4.20-5.40); RED CELL DISTRIBUTION WIDTH 16.6 % (12.0-15.0); WHITE BLOOD COUNT 5.9 x10^3/uL (4.8-10.8)
[2022-07-08 06:29] LABS: CALCIUM 7.8 mg/dL (8.5-10.3); CREATININE 0.7 mg/dL (0.4-1.0); POTASSIUM 3.5 mmol/L (3.5-5.0)
[2022-07-08] MEDS ORDERED: LEVOTHYROXINE 25 MCG TABLET PO SCH ×2 (08:00→09:00)
[2022-07-08] MEDS: SACCHAROMYCES BOULARDII 250 MG CAPSULE PO SCH ×2 (08:16→17:26)
[2022-07-08] MEDS ORDERED: LEVOTHYROXINE 75 MCG TABLET PO SCH (08:30)
[2022-07-08] MEDS: DEXAMETHASONE 4 MG/ML VIAL IVP SCH (08:34)
[2022-07-08] MEDS ORDERED: ENOXAPARIN 40 MG/0.4 ML SYRINGE SUBQ SCH (09:00)
[2022-07-08] MEDS ORDERED: lamoTRIgine 25 MG TABLET PO SCH (09:00)
[2022-07-08] MEDS ORDERED: FLUoxetine 10 MG CAPSULE PO SCH (09:00)
[2022-07-08] MEDS ORDERED: ASPIRIN CHEW 81 MG TABLET PO SCH (09:00)
[2022-07-08] MEDS: CHOLECALCIFEROL 400 UNIT TABLET PO SCH (09:16)
[2022-07-08] MEDS: METOPROLOL TARTRATE 25 MG TABLET PO SCH (09:20)
[2022-07-08] MEDS ORDERED: VANCOMYCIN INJ 500 MG in SODIUM CHLORIDE 0.9% MINIBAG 100 ML IV SCH (11:00)
[2022-07-08] MEDS ORDERED: REMDESIVIR 100MG VIAL 200 MG in SODIUM CHLORIDE 0.9% 250 ML IV ONE (12:00)
[2022-07-08 13:14] LABS: ESTIMATED AVERAGE GLUCOSE 97 mg/dL (70-100)
--- NOTE | 2022-07-08 14:24 | PHARMACY PROGRESS NOTE ---
- Best Possible Medication History Admit Date and Time: 07/07/221937 Processed by: Pharmacy Medication History completed: Yes Patient Interview: Pt unable to participate Secondary Source(s): Insurance records, Previous admit records Patient was recently admitted at [facility] for nearly a month. Several medications were adjusted during that inpatient stay. Med list updated using 06/28/22 discharge summary medication list from [facility]. As the person ultimately responsible for medication therapy, providers are able to order a medication from an existing home medication list in [facility] via the "Reconcile Routine" prior to Confirmation of that medication by support specialist. Such practice is discouraged except when the physician, in their clinical judgment, deems that a medical need exists for a medication without regard to previous use.
--- NOTE | 2022-07-08 15:26 | PROVIDER PROGRESS NOTE ---
Assessment/Plan - Problem List (1) Acute respiratory failure with hypoxia Assessment/Plan: This is likely from a hospital-acquired pneumonia, her COVID infection and "atypical pneumonia" seen on CXR, and Metapneumo virus +, on top of having pre- existing interstitial pulmonary fibrosis Plan: Continue with supplemental O2, target saturation will be 88% in a patient with underlying pulmonary fibrosis, will try to titrate Treat each of her underlying problems. 2) Healthcare associated Pneumonia -Pt was given Cefipime, Vancomycin, LVQ in the ER. Plan: We will continue with her cefepime and Vanco, stop the Levaquin Continue with Mucinex for expectoration 3) COVID-19+, She likely caught this at the [facility] where she was for just several days because that facility is currently having an outbreak of COVID Plan: Decadron was given and we will continue this IV Patient qualifies for remdesivir given her recent COVID diagnosis and new hypoxia needing supplemental O2 Continue with respiratory infectious isolation 4) Metapneumo virus + Plan: Symptomatic care with Mucinex, cough suppressants if needed, and continue with respiratory infectious isolation 5) Interstitial Pulmonary Fibrosis As per history Plan: We will continue with inhaler treatment since nebulized medications by RT, her not desirable because of possibly spreading respiratory viruses 6) Paroxysmal A-fib We received her discharge summary from [facility] where she was hospitalized May 2022 into June 2022. I reviewed this. She was in and out of A-fib. She was put on Amiodarone and Eliquis Plan: We will resume the amiodarone and Eliquis doses, stop Lovenox, stop aspirin, stop metoprolol 7) Ventricular bigeminy Plan: Will obtain stat troponin and cycled x2, stat potassium and magnesium and replace if low Obtain Echo 8) S/P Thoracic aortic aneurysm and AVR surgery We received her discharge summary from [facility] where she was hospitalized May 2022 into June 2022. I reviewed this. ReviewHe had a co mplication of sternal bleeding had to be taken to the OR. She had paroxysmal A- fib that needed management. She had a sternal wound infection that was handled. She was discharged for rehab at [facility] where she only remained for about 2 days and signed herself out AMA. Plan: We will do the discharge summary in detail and adjust medications based on the new list medication list Will order an Echocardiogram to establish LVEF after this thoracic surgery 9) Hypokalemia -K 3.3 -supplement; monitor 10) Hx HTN She has been on Amlodipine and the Amiodarone. Plan: Here her blood pressure is soft therefore Amlodipine is on hold 11) Anxiety and depression In the discharge summary which I reviewed, she refused to eat and was felt to have malnutrition due to an eating disorder, antidepressants may have helped this somewhat Plan: Will continue medications as per [facility] summary 12) Fibromyalgia Plan: Will continue home medication Percocet 13) Hypothyroidism Plan: Will continue Levothyroxine. Her dose was apparently increased when she was recently an inpatient We will check TSH to assure her new dose is correct 14) Hx DM type 2 Could this have resolved, since her Hgba1c came back at 5.0. Her Glc was 123 and she is not on DM home medications Plan: A diabetic diet was ordered and sliding scale insulin coverage for fingersticks We will possibly adjust her diet to a Reg diet, after reviewing her records more - Current Meds Current Meds: Current Medications Generic Name Dose Route Start Last Admin Trade Name Hernestoq PRN Reason Stop Dose Admin Albuterol 2.5 mg 07/07/22 21:00 07/08/22 13:31 Albuterol Neb 2.5 Mg/3 Ml INH 07/08/22 20:59 Not Given Q4HR LARISSA Cholecalciferol 2,000 unit 07/08/22 09:00 07/08/22 09:16 Cholecalciferol 400 Unit Tablet PO 2,000 unit DAILY LARISSA Administration Dexamethasone 6 mg 07/08/22 09:00 07/08/22 08:34 Dexamethasone 4 Mg/Ml Vial IVP 6 mg DAILY LARISSA Administration Cefepime HCl 2 gm/ Sodium 100 mls @ 200 mls/hr 07/08/22 06:00 07/08/22 06:50 Chloride IV Infused Q24H LARISSA Infusion Saccharomyces Boulardii 250 mg 07/08/22 08:00 07/08/22 08:16 Saccharomyces Boulardii 250 Mg Capsule PO 250 mg BIDWM LARISSA Administration Sodium Chloride 10 ml 07/08/22 01:00 07/08/22 08:34 Sodium Chloride Flush 0.9% 10 Ml Syringe IVP 10 ml 0100,0900,1700 LARISSA Administration - Lab Result Fish Bone Diagrams: 07/08/22 06:14 07/08/22 17:25 - Additional Planning My Orders: My Active Orders 07/08/22 08:05 Telemetry- [RC] Q4HR 07/08/22 08:07 Sodium Chloride 0.9% [Normal Saline 0.9%] 1,000 ml IV TKO 07/08/22 19:00 Vancomycin Inj [Vancomycin] 1 gm Sodium Chloride 0.9% [Normal Saline 0.9%] 250 ml IV Q24H 07/08/22 21:00 Apixaban [Eliquis] 5 mg PO BID Atorvastatin [Lipitor] 40 mg PO QPM 07/09/22 07:00 Levothyroxine [Synthroid] 100 mcg PO QDAC Pantoprazole [Protonix] 40 mg PO QDAC 07/09/22 09:00 Amiodarone [Pacerone] 200 mg PO DAILY Remdesivir 100Mg Vial [Veklury] 100 mg Sodium Chloride 0.9% 100Ml [Normal Sali ne 0.9% 100Ml] 100 ml IV DAILY Sertraline [Zoloft] 50 mg PO DAILY lamoTRIgine [LaMICtal] 100 mg PO DAILY 07/10/22 18:00 VANCOMYCIN TROUGH [CHEM] Timed Subjective - Subjective Patient Reports: Resting Comfortably Nursing Reports: Other (O2 was able to come down today) Objective Vital Signs: Vital Signs - 24 hr 07/07/22 07/07/22 07/07/22 16:07 16:28 16:35 Temperature 37.4 C Heart Rate 71 68 66 Heart Rate [ Brachial] Respiratory 22 22 18 Rate Blood Pressure 101/53 L 115/54 L Blood Pressure [Left Brachial artery] Blood Pressure [Right Brachial artery] O2 Saturation 91 L 96 If not protocol 4 : Oxygen Flow, liters/minute 07/07/22 07/07/22 07/07/22 17:14 17:30 18:00 Temperature Heart Rate 68 70 67 Heart Rate [ Brachial] Respiratory 14 21 19 Rate Blood Pressure 96/54 L 109/54 L 100/51 L Blood Pressure [Left Brachial artery] Blood Pressure [Right Brachial artery] O2 Saturation 94 93 94 If not protocol 4 4 4 : Oxygen Flow, liters/minute 07/07/22 07/07/22 07/07/22 18:30 21:00 23:05 Temperature 36.8 C Heart Rate 67 Heart Rate [ 64 Brachial] Respiratory 23 18 Rate Blood Pressure 98/49 L Blood Pressure [Left Brachial artery] Blood Pressure 119/47 L [Right Brachial artery] O2 Saturation 96 92 If not protocol 4 4 4 : Oxygen Flow, liters/minute 07/08/22 07/08/22 07/08/22 01:00 06:11 06:25 Temperature 36.6 C 36.9 C Heart Rate 73 Heart Rate [ 67 75 Brachial] Respiratory 16 18 18 Rate Blood Pressure Blood Pressure [Left Brachial artery] Blood Pressure 112/48 L 124/56 L [Right Brachial artery] O2 Saturation 90 L 90 L If not protocol 4 7 10 : Oxygen Flow, liters/minute 07/08/22 07/08/22 07/08/22 08:20 09:20 12:07 Temperature 36.9 C 36.3 C L Heart Rate Heart Rate [ 74 74 Brachial] Respiratory 20 20 Rate Blood Pressure Blood Pressure 102/46 L 114/64 [Left Brachial artery] Blood Pressure [Right Brachial artery] O2 Saturation 92 93 98 If not protocol 8 8 5 : Oxygen Flow, liters/minute 07/08/22 07/08/22 13:30 13:34 Temperature Heart Rate Heart Rate [ Brachial] Respiratory Rate Blood Pressure Blood Pressure [Left Brachial artery] Blood Pressure [Right Brachial artery] O2 Saturation 97 95 If not protocol 5 3 : Oxygen Flow, liters/minute Oxygen O2 Source Nasal cannula Oxygen Flow Rate 4 I&O (Last 24 Hrs): Intake and Output Totals x24h 07/06/22 07/07/22 07/08/22 23:59 23:59 23:59 Intake Total 1150 1491 Balance 1150 1491 General: No acute distress (wearing O2 n.c.) HEENT: Mucous membr. moist/pink Neck: Supple Neuro: Other (sleeping) Cardiovascular: Regular rate Respiratory: No respiratory distress (while on O2) - Results Results: Laboratory Results WBC 5.9 x10^3/uL (4.8-10.8) 07/08/22 06:14 RBC 3.46 10^6/uL (4.20-5.40) L 07/08/22 06:14 Hgb 9.8 g/dL (12.0-16.0) L 07/08/22 06:14 Hct 32.4 % (37.0-47.0) L 07/08/22 06:14 MCV 93.6 fL (81.0-99.0) 07/08/22 06:14 MCH 28.3 pg (27.0-31.0) 07/08/22 06:14 MCHC 30.2 g/dL (32.0-36.0) L 07/08/22 06:14 RDW 16.6 % (12.0-15.0) H 07/08/22 06:14 Plt Count 222 10^3/uL (130-450) 07/08/22 06:14 MPV 11.2 fL (7.9-10.8) H 07/08/22 06:14 Neut # (Auto) 4.0 10^3/uL (1.5-6.6) 07/08/22 06:14 Lymph # (Auto) 1.2 10^3/uL (1.5-3.5) L 07/08/22 06:14 [place] # (Auto) 0.4 10^3/uL (0.0-1.0) 07/08/22 06:14 Eos # (Auto) 0.1 10^3/uL (0.0-0.7) 07/08/22 06:14 Baso # (Auto) 0.0 10^3/uL (0.0-0.1) 07/08/22 06:14 Absolute Nucleated RBC 0.00 x10^3/uL 07/08/22 06:14 Nucleated RBC % 0.0 /100WBC 07/08/22 06:14 VBG pH 7.477 (7.31-7.41) H 07/07/22 16:15 VBG pCO2 41.6 mmHg (41-51) 07/07/22 16:15 VBG pO2 27.8 mmHg (25-47) 07/07/22 16:15 VBG HCO3 30.1 mmol/L (23-28) H 07/07/22 16:15 VBG Total CO2 31.4 mmol/L (24-29) H 07/07/22 16:15 VBG O2 Saturation 59.4 % (60-80) L 07/07/22 16:15 VBG Base Excess 6.0 mmol/L (-2 - +2) H 07/07/22 16:15 Sodium 137 mmol/L (135-145) 07/08/22 06:14 Potassium 3.5 mmol/L (3.5-5.0) 07/08/22 06:14 Chloride 102 mmol/L (101-111) 07/08/22 06:14 Carbon Dioxide 25 mmol/L (21-32) 07/08/22 06:14 Anion Gap 10.0 (6-13) 07/08/22 06:14 BUN 12 mg/dL (6-20) 07/08/22 06:14 Creatinine 0.7 mg/dL (0.4-1.0) 07/08/22 06:14 Estimated GFR (MDRD) 82 (>89) L 07/08/22 06:14 Glucose 90 mg/dL (70-100) 07/08/22 06:14 Estimat Average Glucose 97 mg/dL (70-100) 07/08/22 06:14 Hemoglobin A1c % 5.0 % (4.27-6.07) 07/08/22 06:14 Lactic Acid 1.3 mmol/L (0.5-2.2) 07/07/22 17:21 Calcium 7.8 mg/dL (8.5-10.3) L 07/08/22 06:14 Total Bilirubin 0.6 mg/dL (0.2-1.0) 07/07/22 16:15 AST 44 IU/L (10-42) H 07/07/22 16:15 ALT 20 IU/L (10-60) 07/07/22 16:15 Alkaline Phosphatase 101 IU/L (42-121) 07/07/22 16:15 B-Natriuretic Peptide 64 pg/mL (5-100) 07/08/22 06:14 Total Protein 6.1 g/dL (6.7-8.2) L 07/07/22 16:15 Albumin 2.8 g/dL (3.2-5.5) L 07/07/22 16:15 Globulin 3.3 g/dL (2.1-4.2) 07/07/22 16:15 Albumin/Globulin Ratio 0.8 (1.0-2.2) L 07/07/22 16:15 Lipase 27 U/L (22-51) 07/07/22 16:15 Procalcitonin 0.12 ng/mL (<0.5) 07/07/22 16:15 Nasal Adenovirus (PCR) NOT DETECTED 07/07/22 16:29 Nasal B. parapertussis DNA (PCR) NOT DETECTED 07/07/22 16:29 Nasal Coronavir 229E PCR NOT DETECTED 07/07/22 16:29 Nasal Coronavir HKU1 PCR NOT DETECTED 07/07/22 16:29 Nasal Coronavir NL63 PCR NOT DETECTED 07/07/22 16:29 Nasal Coronavir OC43 PCR NOT DETECTED 07/07/22 16:29 Nasal Enterovir/Rhinovir PCR NOT DETECTED 07/07/22 16:29 Nasal Influenza B PCR NOT DETECTED 07/07/22 16:29 Nasal Influenza A PCR NOT DETECTED 07/07/22 16:29 Nasal Parainfluen 1 PCR NOT DETECTED 07/07/22 16:29 Nasal Parainfluen 2 PCR NOT DETECTED 07/07/22 16:29 Nasal Parainfluen 3 PCR NOT DETECTED 07/07/22 16:29 Nasal Parainfluen 4 PCR NOT DETECTED 07/07/22 16:29 Nasal RSV (PCR) NOT DETECTED 07/07/22 16:29 Nasal B.pertussis DNA PCR NOT DETECTED 07/07/22 16:29 Nasal C.pneumoniae (PCR) NOT DETECTED 07/07/22 16:29 Andres Human Metapneumo PCR DETECTED A 07/07/22 16:29 Nasal M.pneumoniae (PCR) NOT DETECTED 07/07/22 16:29 Nasal SARS-CoV-2 (PCR) DETECTED A 07/07/22 16:29 - Procedures Procedures: Procedures REPLACEMENT OF LEFT LENS WITH SYNTH SUB, PERC APPROACH (01/11/17) REPLACEMENT OF RIGHT LENS WITH SYNTH SUB, PERC APPROACH (12/07/16)
[2022-07-08] MEDS ORDERED: levoFLOXacin 750 MG/150 ML 750 MG/150 ML BAG IV SCH (17:00)
[2022-07-08 17:42] LABS: MAGNESIUM 1.6 mg/dL (1.7-2.8); POTASSIUM 4.1 mmol/L (3.5-5.0)
[2022-07-08] MEDS ORDERED: ALBUTEROL 1 PUFF INH PRN (18:00)
[2022-07-08] MEDS: VANCOMYCIN INJ 1 GM in SODIUM CHLORIDE 0.9% 250 ML IV SCH (19:10)
[2022-07-08] MEDS ORDERED: MAGNESIUM SULFATE 2 GRAM 2 GM/50 ML BAG IV ONE (20:12)
[2022-07-08] MEDS: APIXABAN 5 MG TABLET PO SCH (21:06)
[2022-07-08] MEDS: ATORVASTATIN 40 MG TABLET PO SCH (21:06)
[2022-07-09] MEDS: SODIUM CHLORIDE FLUSH 0.9% 10 ML SYRINGE IVP SCH ×3 (00:26→17:07)
[2022-07-09] MEDS: CEFEPIME 2 GM in SODIUM CHLORIDE 0.9% MINIBAG 100 ML IV SCH (06:15)
[2022-07-09 06:16] LABS: BASOPHILS % (AUTO) 0.3 %; HCT - HEMATOCRIT 33.4 % (37.0-47.0); HGB - HEMOGLOBIN 10.4 g/dL (12.0-16.0); LYMPHOCYTES # (AUTO) 1.5 10^3/uL (1.5-3.5); LYMPHOCYTES % (AUTO) 16.3 %; MEAN CORPUSCULAR HEMOGLOBIN 28.6 pg (27.0-31.0); MEAN CORPUSCULAR HGB CONC 31.1 g/dL (32.0-36.0); MEAN CORPUSCULAR VOLUME 91.8 fL (81.0-99.0); MEAN PLATELET VOLUME 10.4 fL (7.9-10.8); MONOCYTES # (AUTO) 0.7 10^3/uL (0.0-1.0); MONOCYTES % (AUTO) 7.6 %; NEUTROPHILS # (AUTO) 6.4 10^3/uL (1.5-6.6); NEUTROPHILS % (AUTO) 71.4 %; PLT - PLATELET COUNT 265 10^3/uL (130-450); RED BLOOD COUNT 3.64 10^6/uL (4.20-5.40); RED CELL DISTRIBUTION WIDTH 16.5 % (12.0-15.0)
[2022-07-09] MEDS: PANTOPRAZOLE 40 MG TABLET PO SCH (06:17)
[2022-07-09 06:25] LABS: CALCIUM 8.2 mg/dL (8.5-10.3); CREATININE 0.5 mg/dL (0.4-1.0); POTASSIUM 3.5 mmol/L (3.5-5.0)
[2022-07-09] MEDS: SODIUM CHLORIDE 0.9% 1,000 ML IV SCH ×2 (06:36→19:06)
[2022-07-09] MEDS ORDERED: LEVOTHYROXINE 100 MCG TABLET PO SCH (07:00)
[2022-07-09] MEDS: AMIODARONE 200 MG TABLET PO SCH (08:40)
[2022-07-09] MEDS: SERTRALINE 50 MG TABLET PO SCH (08:40)
[2022-07-09] MEDS: lamoTRIgine 100 MG TABLET PO SCH (08:40)
[2022-07-09] MEDS: CHOLECALCIFEROL 400 UNIT TABLET PO SCH (08:40)
[2022-07-09] MEDS: DEXAMETHASONE 4 MG/ML VIAL IVP SCH (08:40)
[2022-07-09] MEDS: APIXABAN 5 MG TABLET PO SCH ×2 (08:40→21:00)
[2022-07-09] MEDS: SACCHAROMYCES BOULARDII 250 MG CAPSULE PO SCH ×2 (08:41→17:07)
[2022-07-09] MEDS: DOCUSATE SODIUM 250 MG CAPSULE PO SCH (08:45)
[2022-07-09] MEDS: REMDESIVIR 100MG VIAL 100 MG in SODIUM CHLORIDE 0.9% 100ML 100 ML IV SCH (10:18)
[2022-07-09] MEDS: ACETAMINOPHEN 325 MG TABLET PO PRN (13:59)
--- NOTE | 2022-07-09 17:05 | PROVIDER PROGRESS NOTE ---
Assessment/Plan - Problem List (1) Acute respiratory failure with hypoxia Assessment/Plan: This is likely from a hospital-acquired pneumonia, her COVID infection and "atypical pneumonia" seen on CXR, and Metapneumo virus +, on top of having pre- existing interstitial pulmonary fibrosis Plan: Continue with supplemental O2, target saturation will be 88% in a patient with underlying pulmonary fibrosis, will try to titrate Treat each of her underlying problems. 2) Healthcare associated Pneumonia Pt was given Cefipime, Vancomycin, LVQ in the ER. Plan: Continue with her cefepime and Vanco, we stopped the Levaquin Continue with Mucinex for expectoration 3) COVID-19+, She likely caught this at the [facility] where she was for just several days because that facility is currently having an outbreak of COVID Plan: Decadron was given and we will continue this IV Patient qualified for Remdesivir given her recent COVID diagnosis and new hyp oxia needing supplemental O2 Continue with respiratory infectious isolation 4) Infection due to human Metapneumovirus Plan: Symptomatic care with Mucinex, cough suppressants if needed, and continue with respiratory infectious isolation 5) Interstitial Pulmonary Fibrosis As per history Plan: We will continue with inhaler treatment since nebulized medications by RT, her not desirable because of possibly spreading respiratory viruses 6) Paroxysmal A-fib We received her discharge summary from [facility] where she was hospitalized May 2022 into June 2022. I reviewed this. She was in and out of A-fib. She was put on Amiodarone and Eliquis Plan: We aee continuing the Amiodarone and Eliquis doses, stopped Lovenox, stopped aspirin, stopped metoprolol (which were from a prior med list). 7) S/P Thoracic aortic aneurysm and AVR surgery We received her discharge summary from [facility] where she was hospitalized May 2022 into June 2022. I reviewed this. ReviewHe had a complication of sternal bleeding had to be taken to the OR. She had paroxysmal A-fib that needed management. She had a sternal wound infection that was handled. She was discharged for rehab at [facility] where she only remained for about 2 days and signed herself out AMA. I reviewed her discharge summary in detail and adjust medications based on the new list medication list Plan: Will order an Echocardiogram to establish LVEF after this thoracic surgery 8) Hypokalemia K was 3.3. I freviewed all her meds Plan: supplement if K low; monitor BMP daily 9) Anxiety and depression In the discharge summary which I reviewed, she refused to eat and was felt to have malnutrition due to an eating disorder, antidepressants may have helped this somewhat Plan: Will continue medications as per [facility] summary 10) Fibromyalgia Plan: Will continue home medication Percocet 11) Hypothyroidism Plan: Will continue Levothyroxine. Her dose was apparently increased when she was recently an inpatient We will check TSH to assure her new dose is correct 12) Malnutrition As per [facility] summary and clinical picture. Plan: Will request a Gold Tooler consult 13) HTN She has been on Amlodipine and the Amiodarone. Plan: Here her blood pressure is soft, therefore Amlodipine is on hold, Amio has been restarted 14) Ventricular bigeminy Resolved Plan: We obtained STAT troponin and cycled x2 which were unremarkable, also stat potassium and magnesium and K and Mg were replaced Planning to obtain an Echo (no Racing Car Driver available today Sun). - Current Meds Current Meds: Current Medications Generic Name Dose Route Start Last Admin Trade Name Freq PRN Reason Stop Dose Admin Acetaminophen 650 mg 07/07/22 19:38 07/09/22 13:59 Acetaminophen 325 Mg Tablet PO 650 mg Q4HR PRN Administration Pain 1 to 4, or Fever Amiodarone HCl 200 mg 07/09/22 09:00 07/09/22 08:40 Amiodarone 200 Mg Tablet PO 200 mg DAILY LARISSA Administration Apixaban 5 mg 07/08/22 21:00 07/09/22 08:40 Apixaban 5 Mg Tablet PO 5 mg BID LARISSA Administration Atorvastatin Calcium 40 mg 07/08/22 21:00 07/08/22 21:06 Atorvastatin 40 Mg Tablet PO 40 mg QPM LARISSA Administration Cholecalciferol 2,000 unit 07/08/22 09:00 07/09/22 08:40 Cholecalciferol 400 Unit Tablet PO 2,000 unit DAILY LARISSA Administration Dexamethasone 6 mg 07/08/22 09:00 07/09/22 08:40 Dexamethasone 4 Mg/Ml Vial IVP 6 mg DAILY LARISSA Administration Docusate Sodium 250 - 500 mg 07/09/22 09:00 07/09/22 08:45 Docusate Sodium 250 Mg Capsule PO Not Given DAILY LARISSA Cefepime HCl 2 gm/ Sodium 100 mls @ 200 mls/hr 07/08/22 06:00 07/09/22 07:00 Chloride IV Infused Q24H LARISSA Infusion Sodium Chloride 1,000 mls @ 20 mls/hr 07/08/22 08:07 07/09/22 06:36 Normal Saline 0.9% IV Not Given .Q48H LARISSA TKO Remdesivir 100 mg/ Sodium 100 mls @ 200 mls/hr 07/09/22 09:00 07/09/22 11:00 Chloride IV 07/12/22 09:29 Infused DAILY LARISSA Infusion Vancomycin HCl 1 gm/ Sodium 250 mls @ 167 mls/hr 07/08/22 19:00 07/08/22 20:40 Chloride IV Infused Q24H LARISSA Infusion Lamotrigine 100 mg 07/09/22 09:00 07/09/22 08:40 Lamotrigine 100 Mg Tablet PO 100 mg DAILY LARISSA Administration Pantoprazole Sodium 40 mg 07/09/22 07:00 07/09/22 06:17 Pantoprazole 40 Mg Tablet PO 40 mg QDAC LARISSA Administration Saccharomyces Boulardii 250 mg 07/08/22 08:00 07/09/22 08:41 Saccharomyces Boulardii 250 Mg Capsule PO 250 mg BIDWM LARISSA Administration Sertraline HCl 50 mg 07/09/22 09:00 07/09/22 08:40 Sertraline 50 Mg Tablet PO 50 mg DAILY LARISSA Administration Sodium Chloride 10 ml 07/08/22 01:00 07/09/22 08:39 Sodium Chloride Flush 0.9% 10 Ml Syringe IVP 10 ml 0100,0900,1700 LARISSA Administration - Lab Result Fish Bone Diagrams: 07/10/22 05:25 07/12/22 05:12 - Additional Planning My Orders: My Active Orders 07/08/22 18:00 Mdi: Albuterol 2 puffs INH RTQ4H PRN 07/08/22 19:00 Vancomycin Inj [Vancomycin] 1 gm Sodium Chloride 0.9% [Normal Saline 0.9%] 250 ml IV Q24H 07/08/22 21:00 Apixaban [Eliquis] 5 mg PO BID Atorvastatin [Lipitor] 40 mg PO QPM 07/09/22 07:00 Pantoprazole [Protonix] 40 mg PO QDAC 07/09/22 09:00 Amiodarone [Pacerone] 200 mg PO DAILY Remdesivir 100Mg Vial [Veklury] 100 mg Sodium Chloride 0.9% 100Ml [Normal Saline 0.9% 100Ml] 100 ml IV DAILY Sertraline [Zoloft] 50 mg PO DAILY lamoTRIgine [LaMICtal] 100 mg PO DAILY 07/10/22 05:00 MAGNESIUM [CHEM] DAILYLAB 07/10/22 07:00 Levothyroxine [Synthroid] 88 mcg PO QDAC 07/10/22 18:00 VANCOMYCIN TROUGH [CHEM] Timed Subjective - Subjective Patient Reports: Resting Comfortably (seen remotely) Nursing Reports: Other (RN reports she gets up to go to bathroom) Objective Vital Signs: Vital Signs - 24 hr 07/08/22 07/08/22 07/09/22 19:05 21:00 00:53 Temperature 36.8 C 36.8 C Heart Rate [ 70 78 Brachial] Respiratory 18 16 Rate Blood Pressure 125/57 L 125/58 L [Left Brachial artery] O2 Saturation 91 L 93 If not protocol 3 3 3 : Oxygen Flow, liters/minute 07/09/22 07/09/22 07/09/22 05:00 08:32 13:00 Temperature 36.5 C 36.4 C L 36.6 C Heart Rate [ 73 76 78 Brachial] Respiratory 18 16 16 Rate Blood Pressure 132/61 H 136/60 H 146/68 H [Left Brachial artery] O2 Saturation 90 L 93 93 If not protocol 3 3 3 : Oxygen Flow, liters/minute 07/09/22 15:43 Temperature 36.3 C L Heart Rate [ 74 Brachial] Respiratory 18 Rate Blood Pressure 120/63 [Left Brachial artery] O2 Saturation 92 If not protocol 3 : Oxygen Flow, liters/minute Oxygen O2 Source Nasal cannula Oxygen Flow Rate 4 I&O (Last 24 Hrs): Intake and Output Totals x24h 07/07/22 07/08/22 07/09/22 23:59 23:59 23:59 Intake Total 1150 2131 1200 Output Total 100 700 Balance 1150 2031 500 General: Alert, Oriented x3, No acute distress, Other (Cachectic) HEENT: Other (wearing O2 per n.c.) Neck: Supple Neuro: Alert, Non Focal Cardiovascular: Regular rate Respiratory: No respiratory distress (on suppl O2) Extremities: No clubbing, No edema - Results Results: Laboratory Results WBC 9.0 x10^3/uL (4.8-10.8) 07/09/22 06:10 RBC 3.64 10^6/uL (4.20-5.40) L 07/09/22 06:10 Hgb 10.4 g/dL (12.0-16.0) L 07/09/22 06:10 Hct 33.4 % (37.0-47.0) L 07/09/22 06:10 MCV 91.8 fL (81.0-99.0) 07/09/22 06:10 MCH 28.6 pg (27.0-31.0) 07/09/22 06:10 MCHC 31.1 g/dL (32.0-36.0) L 07/09/22 06:10 RDW 16.5 % (12.0-15.0) H 07/09/22 06:10 Plt Count 265 10^3/uL (130-450) 07/09/22 06:10 MPV 10.4 fL (7.9-10.8) 07/09/22 06:10 Neut # (Auto) 6.4 10^3/uL (1.5-6.6) 07/09/22 06:10 Lymph # (Auto) 1.5 10^3/uL (1.5-3.5) 07/09/22 06:10 Alpine # (Auto) 0.7 10^3/uL (0.0-1.0) 07/09/22 06:10 Eos # (Auto) 0.0 10^3/uL (0.0-0.7) 07/09/22 06:10 Baso # (Auto) 0.0 10^3/uL (0.0-0.1) 07/09/22 06:10 Absolute Nucleated RBC 0.00 x10^3/uL 07/09/22 06:10 Nucleated RBC % 0.0 /100WBC 07/09/22 06:10 VBG pH 7.477 (7.31-7.41) H 07/07/22 16:15 VBG pCO2 41.6 mmHg (41-51) 07/07/22 16:15 VBG pO2 27.8 mmHg (25-47) 07/07/22 16:15 VBG HCO3 30.1 mmol/L (23-28) H 07/07/22 16:15 VBG Total CO2 31.4 mmol/L (24-29) H 07/07/22 16:15 VBG O2 Saturation 59.4 % (60-80) L 07/07/22 16:15 VBG Base Excess 6.0 mmol/L (-2 - +2) H 07/07/22 16:15 Sodium 137 mmol/L (135-145) 07/09/22 06:10 Potassium 3.5 mmol/L (3.5-5.0) 07/09/22 06:10 Chloride 103 mmol/L (101-111) 07/09/22 06:10 Carbon Dioxide 26 mmol/L (21-32) 07/09/22 06:10 Anion Gap 8.0 (6-13) 07/09/22 06:10 BUN 14 mg/dL (6-20) 07/09/22 06:10 Creatinine 0.5 mg/dL (0.4-1.0) 07/09/22 06:10 Estimated GFR (MDRD) 122 (>89) 07/09/22 06:10 Glucose 114 mg/dL (70-100) H 07/09/22 06:10 Estimat Average Glucose 97 mg/dL (70-100) 07/08/22 06:14 Hemoglobin A1c % 5.0 % (4.27-6.07) 07/08/22 06:14 Lactic Acid 1.3 mmol/L (0.5-2.2) 07/07/22 17:21 Calcium 8.2 mg/dL (8.5-10.3) L 07/09/22 06:10 Magnesium 1.6 mg/dL (1.7-2.8) L 07/09/22 06:10 Total Bilirubin 0.6 mg/dL (0.2-1.0) 07/07/22 16:15 AST 44 IU/L (10-42) H 07/07/22 16:15 ALT 20 IU/L (10-60) 07/07/22 16:15 Alkaline Phosphatase 101 IU/L (42-121) 07/07/22 16:15 Troponin I High Sens 17.5 ng/L (2.3-14.8) H* 07/08/22 19:58 B-Natriuretic Peptide 64 pg/mL (5-100) 07/08/22 06:14 Total Protein 6.1 g/dL (6.7-8.2) L 07/07/22 16:15 Albumin 2.8 g/dL (3.2-5.5) L 07/07/22 16:15 Globulin 3.3 g/dL (2.1-4.2) 07/07/22 16:15 Albumin/Globulin Ratio 0.8 (1.0-2.2) L 07/07/22 16:15 Lipase 27 U/L (22-51) 07/07/22 16:15 Procalcitonin 0.12 ng/mL (<0.5) 07/07/22 16:15 TSH 0.38 uIU/mL (0.34-5.60) 07/09/22 06:10 Nasal Adenovirus (PCR) NOT DETECTED 07/07/22 16:29 Nasal B. parapertussis DNA (PCR) NOT DETECTED 07/07/22 16:29 Nasal Coronavir 229E PCR NOT DETECTED 07/07/22 16:29 Nasal Coronavir HKU1 PCR NOT DETECTED 07/07/22 16:29 Nasal Coronavir NL63 PCR NOT DETECTED 07/07/22 16:29 Nasal Coronavir OC43 PCR NOT DETECTED 07/07/22 16:29 Nasal Enterovir/Rhinovir PCR NOT DETECTED 07/07/22 16:29 Nasal Influenza B PCR NOT DETECTED 07/07/22 16:29 Nasal Influenza A PCR NOT DETECTED 07/07/22 16:29 Nasal Parainfluen 1 PCR NOT DETECTED 07/07/22 16:29 Nasal Parainfluen 2 PCR NOT DETECTED 07/07/22 16:29 Nasal Parainfluen 3 PCR NOT DETECTED 07/07/22 16:29 Nasal Parainfluen 4 PCR NOT DETECTED 07/07/22 16:29 Nasal RSV (PCR) NOT DETECTED 07/07/22 16:29 Nasal B.pertussis DNA PCR NOT DETECTED 07/07/22 16:29 Nasal C.pneumoniae (PCR) NOT DETECTED 07/07/22 16:29 Andres Human Metapneumo PCR DETECTED A 07/07/22 16:29 Nasal M.pneumoniae (PCR) NOT DETECTED 07/07/22 16:29 Nasal SARS-CoV-2 (PCR) DETECTED A 07/07/22 16:29 - Procedures Procedures: Procedures REPLACEMENT OF LEFT LENS WITH SYNTH SUB, PERC APPROACH (01/11/17) REPLACEMENT OF RIGHT LENS WITH SYNTH SUB, PERC APPROACH (12/07/16)
[2022-07-09] MEDS ORDERED: MAGNESIUM SULFATE 1 GM in SODIUM CHLORIDE 0.9% 50 ML IV ONE (18:58)
[2022-07-09] MEDS: VANCOMYCIN INJ 1 GM in SODIUM CHLORIDE 0.9% 250 ML IV SCH (19:00)
[2022-07-09] MEDS: ATORVASTATIN 40 MG TABLET PO SCH (21:00)
[2022-07-10] MEDS: SODIUM CHLORIDE FLUSH 0.9% 10 ML SYRINGE IVP SCH ×4 (02:04→23:32)
[2022-07-10 05:45] LABS: BASOPHILS % (AUTO) 0.6 %; EOSINOPHILS % (AUTO) 0.1 %; HCT - HEMATOCRIT 36.3 % (37.0-47.0); HGB - HEMOGLOBIN 11.2 g/dL (12.0-16.0); LYMPHOCYTES % (AUTO) 21.5 %; MEAN CORPUSCULAR HEMOGLOBIN 28.2 pg (27.0-31.0); MEAN CORPUSCULAR HGB CONC 30.9 g/dL (32.0-36.0); MEAN CORPUSCULAR VOLUME 91.4 fL (81.0-99.0); MEAN PLATELET VOLUME 10.5 fL (7.9-10.8); NEUTROPHILS % (AUTO) 63.2 %; PLT - PLATELET COUNT 304 10^3/uL (130-450); RED BLOOD COUNT 3.97 10^6/uL (4.20-5.40); RED CELL DISTRIBUTION WIDTH 16.4 % (12.0-15.0); WHITE BLOOD COUNT 6.8 x10^3/uL (4.8-10.8)
[2022-07-10 05:51] LABS: CALCIUM 8.3 mg/dL (8.5-10.3); CREATININE 0.5 mg/dL (0.4-1.0); POTASSIUM 3.1 mmol/L (3.5-5.0)
[2022-07-10 05:56] LABS: ABNORMAL LYMPHS % (MANUAL) 0 %
[2022-07-10 06:06] LABS: BAND NEUTROPHILS % (MANUAL) 2 %; DIFFERENTIAL COMMENT MANUAL DIFFERENTIAL; LYMPHOCYTES % (MANUAL) 15 %; MONOCYTES # (MANUAL) 0.3 10^3/uL (0.0-1.0); MYELOCYTES % (MANUAL) 2 %; NEUTROPHILS # (MANUAL) 5.3 10^3/uL (1.5-6.6); PLATELET ESTIMATE, MANUAL NORMAL (130-450,000) (NORMAL); PLATELET MORPHOLOGY NORMAL APPEARANCE (NORMAL); RBC MORPHOLOGY (MULTIPLE) NORMAL APPEARANCE (NORMAL); WBC MORPHOLOGY (MULTIPLE) NORMAL APPEARANCE (NORMAL)
[2022-07-10] MEDS: CEFEPIME 2 GM in SODIUM CHLORIDE 0.9% MINIBAG 100 ML IV SCH (06:31)
[2022-07-10] MEDS: PANTOPRAZOLE 40 MG TABLET PO SCH (06:34)
[2022-07-10] MEDS: LEVOTHYROXINE 88 MCG TABLET PO SCH (06:34)
[2022-07-10] MEDS: ACETAMINOPHEN 325 MG TABLET PO PRN (09:09)
[2022-07-10] MEDS: APIXABAN 5 MG TABLET PO SCH ×2 (09:10→21:06)
[2022-07-10] MEDS: SACCHAROMYCES BOULARDII 250 MG CAPSULE PO SCH ×2 (09:10→17:27)
[2022-07-10] MEDS: AMIODARONE 200 MG TABLET PO SCH (09:10)
[2022-07-10] MEDS: MAGNESIUM OXIDE 400 MG TABLET PO SCH (09:10)
[2022-07-10] MEDS: SERTRALINE 50 MG TABLET PO SCH (09:10)
[2022-07-10] MEDS: CHOLECALCIFEROL 400 UNIT TABLET PO SCH (09:10)
[2022-07-10] MEDS: lamoTRIgine 100 MG TABLET PO SCH (09:10)
[2022-07-10] MEDS: DOCUSATE SODIUM 250 MG CAPSULE PO SCH (09:11)
[2022-07-10] MEDS: DEXAMETHASONE 4 MG/ML VIAL IVP SCH (09:11)
[2022-07-10] MEDS: REMDESIVIR 100MG VIAL 100 MG in SODIUM CHLORIDE 0.9% 100ML 100 ML IV SCH (09:25)
[2022-07-10] MEDS: POTASSIUM CHLOR 10 MEQ/100 ML 10 MEQ/100 ML BAG IV SCH ×4 (11:25→15:58)
[2022-07-10] MEDS ORDERED: fentaNYL 50 MCG PATCH TOP SCH (12:00)
[2022-07-10] MEDS ORDERED: fentaNYL 25 MCG PATCH TOP SCH (12:00)
--- NOTE | 2022-07-10 17:25 | PROVIDER PROGRESS NOTE ---
Assessment/Plan - Problem List (1) Acute respiratory failure with hypoxia Assessment/Plan: Improving. She is less SOB. Her suppl O2 needs stabilized, have not risen. This is likely from a hospital-acquired pneumonia, her COVID infection and "atypical pneumonia" seen on CXR, and Metapneumo virus +, on top of having pre- existing interstitial pulmonary fibrosis Plan: Continue with supplemental O2, target saturation will be 88% in a patient with underlying pulmonary fibrosis, will try to titrate Treat each of her underlying problems. 2) Healthcare associated Pneumonia Pt was given Cefipime, Vancomycin, LVQ in the ER. Plan: Continue with her cefepime and Vanco, we stopped the Levaquin Continue with Mucinex for expectoration 3) COVID-19, She likely caught this at the [facility] where she was for just several days because that facility is currently having an outbreak of COVID Plan: Decadron was given and we will continue this IV Patient qualified for Remdesivir given her recent COVID diagnosis and new hypoxia needing supplemental O2 Continue with respiratory infectious isolation 4) Infection due to human Metapneumovirus Plan: Symptomatic care with Mucinex, cough suppressants if needed, and continue with respiratory infectious isolation 5) Interstitial Pulmonary Fibrosis As per history Plan: We will continue with inhaler treatment since nebulized medications by RT, her not desirable because of possibly aerosolizing respiratory viruses 6) Paroxysmal A-fib We received her discharge summary from [facility] where she was hospitalized May 2022 into June 2022. I reviewed this. She was in and out of A-fib. She was put on Amiodarone and Eliquis Plan: We have continued her Amiodarone and Eliquis doses, stopped Lovenox, stopped asp irin, stopped metoprolol 7) S/P Thoracic aortic aneurysm surgery We received her discharge summary from [facility] where she was hospitalized May 2022 into June 2022. I reviewed this. She had ascending aortic aneurysm repair and AVR surgery w/ complication of sternal bleeding had to be taken to the OR. She had paroxysmal A-fib that needed management. She had a sternal wound infection that was handled. She was discharged for rehab at [facility] where she only remained for about 2 days and signed herself out AMA. She thinks she caught Covid there, because there was an outbreak of Covid at that facility then. Plan: Awaiting an Echocardiogram to establish LVEF after this thoracic surgery 8) Hypokalemia K has been low, likely due to poor po intake Plan: Give K supplement; monitor BMP daily 9) Anxiety and depression In the discharge summary which I reviewed, she refused to eat and was felt to have malnutrition due to an eating disorder, antidepressants may have helped this somewhat Plan: Will continue medications as per [facility] summary 10) Fibromyalgia Plan: Will continue home medication Percocet 11) Hypothyroidism Her dose was increased when she was recently an inpatient, as per her [facility] summary, which I reviewed. We checked TSH to assure her new dose is correct, and dose of 100 mcg is too high Plan: Will decrease Levothyroxine from 100mcg to 88 mcg daily. 12) Severe protein calorie Malnutrition Her [facility] summary from Ania Gonzalez, which I reviewed, stated she has an eating disorder. She has had nutritional intake of < 50% of recommended intake for over 2 weeks. And has had a 10% weight loss in 3 mos (48 kg down to 42 kg). Plan: Nutritional calorie support w/ Ensure I discussed with the pt today if she would agree to try an appetite stimulant, and she said yes. Marinol BID was ordered today. 13) HTN She has been on Amlodipine and the Amiodarone. Plan: Here her blood pressure is soft, therefore Amlodipine is on hold 14) Physical deconditioning She needed PT and OT after her cardiothoracic surgey and ling hospitalization. Then she signed out from the SNF she was sent to. Plan: Since her pulmonary status has stabilized, will order PT and OT to start working with her. 15) Ventricular bigeminy Resolved Her troponins ruled her out for an [place] and a low potassium was replaced Plan: Echo ordered (not available until tomorrow () - Current Meds Current Meds: Current Medications Generic Name Dose Route Start Last Admin Trade Name Freq PRN Reason Stop Dose Admin Acetaminophen 650 mg 07/07/22 19:38 07/10/22 09:09 Acetaminophen 325 Mg Tablet PO 650 mg Q4HR PRN Administration Pain 1 to 4, or Fever Amiodarone HCl 200 mg 07/09/22 09:00 07/10/22 09:10 Amiodarone 200 Mg Tablet PO 200 mg DAILY LARISSA Administration Apixaban 5 mg 07/08/22 21:00 07/10/22 09:10 Apixaban 5 Mg Tablet PO 5 mg BID LARISSA Administration Atorvastatin Calcium 40 mg 07/08/22 21:00 07/09/22 21:00 Atorvastatin 40 Mg Tablet PO 40 mg QPM LARISSA Administration Cholecalciferol 2,000 unit 07/08/22 09:00 07/10/22 09:10 Cholecalciferol 400 Unit Tablet PO 2,000 unit DAILY LARISSA Administration Dexamethasone 6 mg 07/08/22 09:00 07/10/22 09:11 Dexamethasone 4 Mg/Ml Vial IVP 6 mg DAILY LARISSA Administration Docusate Sodium 250 - 500 mg 07/09/22 09:00 07/10/22 09:11 Docusate Sodium 250 Mg Capsule PO Not Given DAILY LARISSA Dronabinol 2.5 mg 07/10/22 16:00 07/10/22 16:10 Dronabinol 2.5 Mg Capsule PO 2.5 mg BIDAC LARISSA Administration Fentanyl 1 patch 07/10/22 12:00 07/10/22 12:21 Fentanyl 50 Mcg Patch TOP 1 patch Q3D LARISSA Administration Fentanyl 1 patch 07/10/22 12:00 07/10/22 12:21 Fentanyl 25 Mcg Patch TOP 1 patch Q3D LARISSA Administration Cefepime HCl 2 gm/ Sodium 100 mls @ 200 mls/hr 07/08/22 06:00 07/10/22 07:02 Chloride IV Infused Q24H LARISSA Infusion Sodium Chloride 1,000 mls @ 20 mls/hr 07/08/22 08:07 07/10/22 16:00 Normal Saline 0.9% IV 20 mls/hr .Q48H LARISSA Infusion TKO Remdesivir 100 mg/ Sodium 100 mls @ 200 mls/hr 07/09/22 09:00 07/10/22 10:15 Chloride IV 07/12/22 09:29 Infused DAILY LARISSA Infusion Vancomycin HCl 1 gm/ Sodium 250 mls @ 167 mls/hr 07/08/22 19:00 07/09/22 20:44 Chloride IV Infused Q24H LARISSA Infusion Lamotrigine 100 mg 07/09/22 09:00 07/10/22 09:10 Lamotrigine 100 Mg Tablet PO 100 mg DAILY LARISSA Administration Levothyroxine Sodium 88 mcg 07/10/22 07:00 07/10/22 06:34 Levothyroxine 88 Mcg Tablet PO 88 mcg QDAC LARISSA Administration Magnesium Oxide 400 mg 07/10/22 08:00 07/10/22 09:10 Magnesium Oxide 400 Mg Tablet PO 400 mg DAILYWM LARISSA Administration Prochlorperazine Edisylate 10 mg 07/07/22 21:31 07/10/22 11:25 Prochlorperazine 10 Mg/2 Ml Vial IVP 10 mg Q6H PRN Administration Nausea / Vomiting Saccharomyces Boulardii 250 mg 07/08/22 08:00 07/10/22 09:10 Saccharomyces Boulardii 250 Mg Capsule PO 250 mg BIDWM LARISSA Administration Sodium Chloride 10 ml 07/07/22 19:38 07/10/22 11:25 Sodium Chloride Flush 0.9% 10 Ml Syringe IVP 10 ml PRN PRN Administration NEEDED PER PROVIDER ORDERS Sodium Chloride 10 ml 07/08/22 01:00 07/10/22 09:09 Sodium Chloride Flush 0.9% 10 Ml Syringe IVP 10 ml 0100,0900,1700 LARISSA Administration - Lab Result Fish Bone Diagrams: 07/10/22 05:25 07/10/22 05:25 - Additional Planning My Orders: My Active Orders 07/10/22 Evaluate and Treat OT [OT] Routine Evaluate and Treat PT [PT] Routine 07/10/22 07:00 Levothyroxine [Synthroid] 88 mcg PO QDAC 07/10/22 08:00 Magnesium Oxide [Mag Ox] 400 mg PO DAILYWM 07/10/22 11:01 Nutrition Consult [CONS] Routine 07/10/22 12:00 fentaNYL 25 MCG PATCH [Duragesic] 1 patch TOP Q3D fentaNYL 50 MCG PATCH [Duragesic] 1 patch TOP Q3D 07/10/22 16:00 dronabinoL [Marinol] 2.5 mg PO BIDAC 07/10/22 Dinner Cardiac Diet [DIET] 07/10/22 16:59 Miscellaenous Nursing Order [RC] QSHIFT 07/10/22 18:00 VANCOMYCIN TROUGH [CHEM] Timed 07/11/22 08:00 Multivitamin W/Minerals [Theragran M] 1 tab PO DAILYWM Pantoprazole [Protonix] 40 mg PO 0800 07/11/22 09:00 Sertraline [Zoloft] 50 mg PO DAILY Subjective - Subjective Patient Reports: Other (Feels weak. Has no appetite.) Objective Vital Signs: Vital Signs - 24 hr 07/09/22 07/09/22 07/10/22 19:00 20:53 00:48 Temperature 36.3 C L 36.3 C L Heart Rate [ 75 71 77 Brachial] Respiratory 18 17 16 Rate Blood Pressure 124/64 145/70 H [Left Brachial artery] O2 Saturation 94 92 93 If not protocol 2 2 2 : Oxygen Flow, liters/minute 07/10/22 07/10/22 07/10/22 05:00 08:58 09:37 Temperature 36.3 C L 36.4 C L Heart Rate [ 81 78 Brachial] Respiratory 14 16 Rate Blood Pressure 145/70 H 129/66 [Left Brachial artery] O2 Saturation 93 92 If not protocol 2 2 2 : Oxygen Flow, liters/minute 07/10/22 07/10/22 07/10/22 13:00 14:19 15:45 Temperature 36.2 C L 36.3 C L Heart Rate [ 87 79 Brachial] Respiratory 20 20 Rate Blood Pressure 151/75 H 143/79 H 137/64 H [Left Brachial artery] O2 Saturation 94 98 If not protocol 2 2 : Oxygen Flow, liters/minute Oxygen O2 Source Nasal cannula Oxygen Flow Rate 4 I&O (Last 24 Hrs): Intake and Output Totals x24h 07/08/22 07/09/22 07/10/22 23:59 23:59 23:59 Intake Total 2131 2711 1673.667 Output Total 100 1200 800 Balance 2031 1511 873.667 General: Alert, Oriented x3, Other (She is supine in bed, not SOB.) HEENT: Other (Cachectic.) Neck: Supple Neuro: Alert, Non Focal Cardiovascular: Normal S1, No murmurs Respiratory: No respiratory distress, Other (Poor air mvm, no wheezing or r ales.) Abdomen: Normal bowel sounds, Soft Extremities: No clubbing, No edema, No tenderness/swelling - Results Results: Laboratory Results WBC 6.8 x10^3/uL (4.8-10.8) 07/10/22 05:25 RBC 3.97 10^6/uL (4.20-5.40) L 07/10/22 05:25 Hgb 11.2 g/dL (12.0-16.0) L 07/10/22 05:25 Hct 36.3 % (37.0-47.0) L 07/10/22 05:25 MCV 91.4 fL (81.0-99.0) 07/10/22 05:25 MCH 28.2 pg (27.0-31.0) 07/10/22 05:25 MCHC 30.9 g/dL (32.0-36.0) L 07/10/22 05:25 RDW 16.4 % (12.0-15.0) H 07/10/22 05:25 Plt Count 304 10^3/uL (130-450) 07/10/22 05:25 MPV 10.5 fL (7.9-10.8) 07/10/22 05:25 Neut # (Auto) Not Reportable 07/10/22 05:25 Lymph # (Auto) Not Reportable 07/10/22 05:25 Mcdowell # (Auto) Not Reportable 07/10/22 05:25 Eos # (Auto) Not Reportable 07/10/22 05:25 Baso # (Auto) Not Reportable 07/10/22 05:25 Absolute Nucleated RBC Not Reportable 07/10/22 05:25 Total Counted 100 07/10/22 05:25 Band Neuts % (Manual) 2 % (0-10) 07/10/22 05:25 Abnorm Lymph % (Manual) 0 % 07/10/22 05:25 Myelocytes % 2 % (-0) H 07/10/22 05:25 Nucleated RBC % Not Reportable 07/10/22 05:25 Neutrophils # (Manual) 5.3 10^3/uL (1.5-6.6) 07/10/22 05:25 Lymphocytes # (Manual) 1.0 10^3/uL (1.5-3.5) L 07/10/22 05:25 Monocytes # (Manual) 0.3 10^3/uL (0.0-1.0) 07/10/22 05:25 Eosinophils # (Manual) 0.0 10^3/uL (0-0.7) 07/10/22 05:25 Basophils # (Manual) 0.0 10^3/uL (0-0.1) 07/10/22 05:25 Differential Comment MANUAL DIFFERENTIAL 07/10/22 05:25 WBC Morphology NORMAL APPEARANCE (NORMAL) 07/10/22 05:25 Platelet Estimate NORMAL (130-450,000) (NORMAL) 07/10/22 05:25 Platelet Morphology NORMAL APPEARANCE (NORMAL) 07/10/22 05:25 RBC Morph Micro Appear NORMAL APPEARANCE (NORMAL) 07/10/22 05:25 VBG pH 7.477 (7.31-7.41) H 07/07/22 16:15 VBG pCO2 41.6 mmHg (41-51) 07/07/22 16:15 VBG pO2 27.8 mmHg (25-47) 07/07/22 16:15 VBG HCO3 30.1 mmol/L (23-28) H 07/07/22 16:15 VBG Total CO2 31.4 mmol/L (24-29) H 07/07/22 16:15 VBG O2 Saturation 59.4 % (60-80) L 07/07/22 16:15 VBG Base Excess 6.0 mmol/L (-2 - +2) H 07/07/22 16:15 Sodium 140 mmol/L (135-145) 07/10/22 05:25 Potassium 3.1 mmol/L (3.5-5.0) L 07/10/22 05:25 Chloride 107 mmol/L (101-111) 07/10/22 05:25 Carbon Dioxide 26 mmol/L (21-32) 07/10/22 05:25 Anion Gap 7.0 (6-13) 07/10/22 05:25 BUN 11 mg/dL (6-20) 07/10/22 05:25 Creatinine 0.5 mg/dL (0.4-1.0) 07/10/22 05:25 Estimated GFR (MDRD) 122 (>89) 07/10/22 05:25 Glucose 119 mg/dL (70-100) H 07/10/22 05:25 Estimat Average Glucose 97 mg/dL (70-100) 07/08/22 06:14 Hemoglobin A1c % 5.0 % (4.27-6.07) 07/08/22 06:14 Lactic Acid 1.3 mmol/L (0.5-2.2) 07/07/22 17:21 Calcium 8.3 mg/dL (8.5-10.3) L 07/10/22 05:25 Magnesium 2.0 mg/dL (1.7-2.8) 07/10/22 05:25 Total Bilirubin 0.6 mg/dL (0.2-1.0) 07/07/22 16:15 AST 44 IU/L (10-42) H 07/07/22 16:15 ALT 20 IU/L (10-60) 07/07/22 16:15 Alkaline Phosphatase 101 IU/L (42-121) 07/07/22 16:15 Troponin I High Sens 17.5 ng/L (2.3-14.8) H* 07/08/22 19:58 B-Natriuretic Peptide 64 pg/mL (5-100) 07/08/22 06:14 Total Protein 6.1 g/dL (6.7-8.2) L 07/07/22 16:15 Albumin 2.8 g/dL (3.2-5.5) L 07/07/22 16:15 Globulin 3.3 g/dL (2.1-4.2) 07/07/22 16:15 Albumin/Globulin Ratio 0.8 (1.0-2.2) L 07/07/22 16:15 Lipase 27 U/L (22-51) 07/07/22 16:15 Procalcitonin 0.12 ng/mL (<0.5) 07/07/22 16:15 TSH 0.38 uIU/mL (0.34-5.60) 07/09/22 06:10 Nasal Adenovirus (PCR) NOT DETECTED 07/07/22 16:29 Nasal B. parapertussis DNA (PCR) NOT DETECTED 07/07/22 16:29 Nasal Coronavir 229E PCR NOT DETECTED 07/07/22 16:29 Nasal Coronavir HKU1 PCR NOT DETECTED 07/07/22 16:29 Nasal Coronavir NL63 PCR NOT DETECTED 07/07/22 16:29 Nasal Coronavir OC43 PCR NOT DETECTED 07/07/22 16:29 Nasal Enterovir/Rhinovir PCR NOT DETECTED 07/07/22 16:29 Nasal Influenza B PCR NOT DETECTED 07/07/22 16:29 Nasal Influenza A PCR NOT DETECTED 07/07/22 16:29 Nasal Parainfluen 1 PCR NOT DETECTED 07/07/22 16:29 Nasal Parainfluen 2 PCR NOT DETECTED 07/07/22 16:29 Nasal Parainfluen 3 PCR NOT DETECTED 07/07/22 16:29 Nasal Parainfluen 4 PCR NOT DETECTED 07/07/22 16:29 Nasal RSV (PCR) NOT DETECTED 07/07/22 16:29 Nasal B.pertussis DNA PCR NOT DETECTED 07/07/22 16:29 Nasal C.pneumoniae (PCR) NOT DETECTED 07/07/22 16:29 Andres Human Metapneumo PCR DETECTED A 07/07/22 16:29 Nasal M.pneumoniae (PCR) NOT DETECTED 07/07/22 16:29 Nasal SARS-CoV-2 (PCR) DETECTED A 07/07/22 16:29 - Procedures Procedures: Procedures REPLACEMENT OF LEFT LENS WITH SYNTH SUB, PERC APPROACH (01/11/17) REPLACEMENT OF RIGHT LENS WITH SYNTH SUB, PERC APPROACH (12/07/16)
[2022-07-10 18:32] LABS: VANCOMYCIN,TROUGH 15.1 ug/mL (10.0-20.0)
[2022-07-10] MEDS: VANCOMYCIN INJ 1 GM in SODIUM CHLORIDE 0.9% 250 ML IV SCH (19:27)
[2022-07-10] MEDS: ATORVASTATIN 40 MG TABLET PO SCH (21:06)
[2022-07-11] MEDS: CEFEPIME 2 GM in SODIUM CHLORIDE 0.9% MINIBAG 100 ML IV SCH (06:35)
[2022-07-11] MEDS: LEVOTHYROXINE 88 MCG TABLET PO SCH (06:38)
[2022-07-11] MEDS ORDERED: POTASSIUM CHLORIDE 20 MEQ TABLET PO ONE (07:28)
[2022-07-11] MEDS: DEXAMETHASONE 4 MG/ML VIAL IVP SCH (08:56)
[2022-07-11] MEDS: AMIODARONE 200 MG TABLET PO SCH (08:56)
[2022-07-11] MEDS: CHOLECALCIFEROL 400 UNIT TABLET PO SCH (08:56)
[2022-07-11] MEDS: SODIUM CHLORIDE FLUSH 0.9% 10 ML SYRINGE IVP SCH ×2 (08:56→16:16)
[2022-07-11] MEDS: SACCHAROMYCES BOULARDII 250 MG CAPSULE PO SCH ×2 (08:56→16:17)
[2022-07-11] MEDS: MULTIVITAMIN W/MINERALS TABLET PO SCH (08:57)
[2022-07-11] MEDS: APIXABAN 5 MG TABLET PO SCH ×2 (08:57→21:26)
[2022-07-11] MEDS: SERTRALINE 50 MG TABLET PO SCH (08:57)
[2022-07-11] MEDS: MAGNESIUM OXIDE 400 MG TABLET PO SCH (08:57)
[2022-07-11] MEDS: lamoTRIgine 100 MG TABLET PO SCH (08:57)
[2022-07-11] MEDS: PANTOPRAZOLE 40 MG TABLET PO SCH (08:57)
[2022-07-11] MEDS: DOCUSATE SODIUM 250 MG CAPSULE PO SCH (09:05)
[2022-07-11] MEDS: REMDESIVIR 100MG VIAL 100 MG in SODIUM CHLORIDE 0.9% 100ML 100 ML IV SCH (10:51)
[2022-07-11] MEDS: ACETAMINOPHEN 325 MG TABLET PO PRN ×2 (12:43→22:18)
--- NOTE | 2022-07-11 14:11 | PROVIDER PROGRESS NOTE ---
Subjective - Prog Note Date Prog Note Date: 07/11/22 Prog Note Time: 14:10 - Subjective Subjective: She is on and off her oxygen this morning. She symptoms requires 2 L to maintain O2 sats of 92%. Then she goes to 93% on room air. When she was admitted she was on 8 L. Then down to 5 L. She was consistently on 3 L on the and . By the she was down to 2 L. She continues to be exhausted. Physical therapy feels that she is weak, and will continue to need physical therapy and Occupational Therapy for mobility and endurance. She is adamant that she is not going back to a [facility]. Current Medications - Current Medications Current Medications: Active Medications Acetaminophen (Acetaminophen 325 Mg Tablet) 650 mg PO Q4HR PRN PRN Reason: Pain 1 to 4, or Fever Last Admin: 07/11/22 12:43 Dose: 650 mg Albuterol (Albuterol 1 Puff) 2 puffs INH RTQ4H PRN PRN Reason: Wheezing Amiodarone HCl (Amiodarone 200 Mg Tablet) 200 mg PO DAILY [facility] Last Admin: 07/11/22 08:56 Dose: 200 mg Apixaban (Apixaban 5 Mg Tablet) 5 mg PO BID [facility] Last Admin: 07/11/22 08:57 Dose: 5 mg Atorvastatin Calcium (Atorvastatin 40 Mg Tablet) 40 mg PO QPM [facility] Last Admin: 07/10/22 21:06 Dose: 40 mg Cholecalciferol (Cholecalciferol 400 Unit Tablet) 2,000 unit PO DAILY [facility] Last Admin: 07/11/22 08:56 Dose: 2,000 unit Dexamethasone (Dexamethasone 4 Mg/Ml Vial) 6 mg IVP DAILY [facility] Last Admin: 07/11/22 08:56 Dose: 6 mg Docusate Sodium (Docusate Sodium 250 Mg Capsule) 250 - 500 mg PO DAILY [facility] Last Admin: 07/11/22 09:05 Dose: Not Given Dronabinol (Dronabinol 2.5 Mg Capsule) 2.5 mg PO BIDAC [facility] Last Admin: 07/11/22 06:38 Dose: 2.5 mg Fentanyl (Fentanyl 50 Mcg Patch) 1 patch TOP Q3D [facility] Last Admin: 07/10/22 12:21 Dose: 1 patch Fentanyl (Fentanyl 25 Mcg Patch) 1 patch TOP Q3D [facility] Last Admin: 07/10/22 12:21 Dose: 1 patch Cefepime HCl 2 gm/ Sodium (Chloride) 100 mls @ 200 mls/hr IV Q24H [facility] Last Infusion: 07/11/22 07:10 Dose: Infused Sodium Chloride (Normal Saline 0.9%) 1,000 mls @ 20 mls/hr IV .Q48H [facility] Last Infusion: 07/11/22 14:07 Dose: 20 mls/hr Vancomycin HCl 1 gm/ Sodium (Chloride) 250 mls @ 167 mls/hr IV Q24H [facility] Last Infusion: 07/10/22 21:00 Dose: Infused Ipratropium [place] (Ipratropium 0.2 Mg/Ml Neb) 0.5 mg INH Q4HR PRN PRN Reason: Wheezing Lamotrigine (Lamotrigine 100 Mg Tablet) 100 mg PO DAILY [facility] Last Admin: 07/11/22 08:57 Dose: 100 mg Levothyroxine Sodium (Levothyroxine 88 Mcg Tablet) 88 mcg PO QDAC [facility] Last Admin: 07/11/22 06:38 Dose: 88 mcg Magnesium Oxide (Magnesium Oxide 400 Mg Tablet) 400 mg PO DAILYWM [facility] Last Admin: 07/11/22 08:57 Dose: 400 mg Multivitamins/Minerals (Multivitamin W/Minerals Tablet) 1 tab PO DAILYWM [facility] Last Admin: 07/11/22 08:57 Dose: 1 tab Nitroglycerin (Nitroglycerin Sl 0.4 Mg Tablet) 0.4 mg SL Q5MIN PRN PRN Reason: Shortness of Air/Wheezing Oxycodone HCl (Oxycodone 5 Mg Tablet) 5 mg PO Q6H PRN PRN Reason: Moderate Pain (Level 4-6) Pantoprazole Sodium (Pantoprazole 40 Mg Tablet) 40 mg PO 0800 [facility] Last Admin: 07/11/22 08:57 Dose: 40 mg Potassium Chloride (Potassium Chloride 20 Meq Tablet) 20 meq PO DAILYWM [facility] Prochlorperazine Edisylate (Prochlorperazine 10 Mg/2 Ml Vial) 10 mg IVP Q6H PRN PRN Reason: Nausea / Vomiting Last Admin: 07/10/22 11:25 Dose: 10 mg Saccharomyces Boulardii (Saccharomyces Boulardii 250 Mg Capsule) 250 mg PO BIDWM [facility] Last Admin: 07/11/22 08:56 Dose: 250 mg Sertraline HCl (Sertraline 50 Mg Tablet) 50 mg PO DAILY [facility] Last Admin: 07/11/22 08:57 Dose: 50 mg Sodium Chloride (Sodium Chloride Flush 0.9% 10 Ml Syringe) 10 ml IVP PRN PRN PRN Reason: NEEDED PER PROVIDER ORDERS Last Admin: 07/10/22 11:25 Dose: 10 ml Sodium Chloride (Sodium Chloride Flush 0.9% 10 Ml Syringe) 10 ml IVP 0100,0900,1700 [facility] Last Admin: 07/11/22 08:56 Dose: 10 ml Amiodarone [Pacerone] 200 mg PO DAILY 07/08/22 Apixaban [Eliquis] 5 mg PO BID 07/08/22 Aspirin [Felt Aspirin] 81 mg PO 1300 07/08/22 Atorvastatin Calcium 40 mg PO QPM 07/08/22 Levothyroxine [Synthroid] 100 mcg PO QDAC 07/08/22 Mirtazapine 15 mg PO QPM 07/08/22 Multivitamin with Minerals [Multivitamins with Minerals] 1 tab PO DAILY 07/08/22 Oxycodone HCl/Acetaminophen [Oxycodone-Acetaminophen 5-325] 1 tab PO Q6H PRN 07/08/22 Pantoprazole [Protonix] 40 mg PO 0800 07/08/22 Senna [Senokot] 8.6 mg PO BID PRN 07/08/22 Sertraline [Zoloft] 50 mg PO DAILY 07/08/22 amLODIPine [Norvasc] 5 mg PO BID 07/08/22 fentaNYL [Fentanyl 75mcg patch] 1 patch TD Q72H 07/08/22 lamoTRIgine [LaMICtal] 100 mg PO DAILY 07/08/22 Objective - Vital Signs/Intake & Output Reviewed Vital Signs: Yes Vital Signs: Vital Signs x48h Temp Pulse Resp BP BP Pulse Ox O2 Flow Rate 07/11/22 14:03 93 07/11/22 13:22 73 137/68 H 94 2 07/11/22 13:21 92 07/11/22 11:14 36.6 C 69 18 136/67 H 95 2 07/11/22 08:42 36.5 C 70 20 137/71 H 92 2 07/11/22 08:00 2 Intake & Output: Intake & Output 07/08/22 07/09/22 07/10/22 07/11/22 23:59 23:59 23:59 23:59 Intake Total 2131 2711 2923.667 1502.333 Output Total 100 1200 900 500 Balance 2031 1511 2023.667 1002.333 - Objective General Appearance: positive: Alert, Other (She appears to be a depressed, withdrawn elderly woman who is oriented to person place and time) Eyes Bilateral: positive: PERRL, EOMI ENT: positive: No signs of dehydration Neck: positive: No JVD. negative: Stiff neck Respiratory: positive: No respiratory distress, Wheezes, Other (Occasional cough, mild, productive of yellow phlegm). negative: Breath sounds nml (Diminished at the bases), Rales, Rhonchi Cardiovascular: positive: Regular rate & rhythm. negative: Tachycardia Abdomen: positive: Non-tender, No organomegaly, Nml bowel sounds, No distention, Other (Scaphoid) Skin: positive: Warm, Dry, Pallor Extremities: positive: Full ROM, Pedal edema (Trace around both ankles) Neurologic/Psychiatric: positive: Oriented x3, CN's nml (2-12), Motor nml, Depressed mood/affect (Very withdrawn, muted) - Lab Results Fish Bones: 07/10/22 05:25 07/11/22 14:44 Other Labs: Lab Results x24hrs 07/10/22 Range/Units 18:17 Last Dose Date 07/09/22 Last Dose Time 2043 Vancomycin Trough 15.1 (10.0-20.0) ug/mL Assessment/Plan - Problem List (1) Acute respiratory failure with hypoxia Impression: Improving This is likely from a hospital-acquired pneumonia, her COVID infection and "atypical pneumonia" seen on CXR, and Metapneumo virus +, on top of having pre- existing interstitial pulmonary fibrosis. Her oxygen requirements have slowly come down over the course of her admission. As stated in history she was initially on 8 L, and has been down to 2 L as of yesterday. Today she is improving to the point that she is coming off of 2 L momentarily. But then has to be put back on again. I would anticipate within the next 24 to 48 hours she will be off oxygen. Plan: Continue with supplemental O2, target saturation will be 88% in a patient with underlying pulmonary fibrosis Treat each of her underlying problems. 2) Healthcare associated Pneumonia -Pt was given Cefipime, Vancomycin, LVQ in the ER. Plan: We continued cefepime 2 g a day and Vanco 1 g a day. Vancomycin trough was 15.1 yesterday evening. Today is day #5 of both antibiotics. If she is off oxygen by tomorrow, she will most likely be able to be discharged home without any further antibiotics. Mucinex was mentioned in the note from yesterday, but the patient is not on M ucinex. She says that she thinks it would help and would like me to order. We are avoiding nephrotoxic agents in view of the fact that she is on vancomycin. Daily creatinine is being monitored. Her creatinine was 0.7 on admission, and is 0.5 today. As such I do not need to adjust her vancomycin for now 3) COVID-19, She likely caught this at the [facility] where she was for just several days because that facility is currently having an outbreak of COVID. Infection symptoms started around July 04. She was then admitted here July 07. Plan: Decadron has been 6 mg IV push daily. I will change to 6 mg p.o. daily. Patient qualified for remdesivir given her recent COVID diagnosis and new hypoxia needing supplemental O2 Continue with respiratory infectious isolation I will stop remdesivir today. 4) Infection due to human Metapneumovirus Plan: Symptomatic care with Mucinex, cough suppressants if needed, and continue with respiratory infectious isolation 5) Interstitial Pulmonary Fibrosis As per history Plan: We will continue with inhaler treatment since nebulized medications by RT are not desirable because of possibly spreading respiratory viruses 6) Paroxysmal A-fib We received her discharge summary from [facility] where she was hospitalized May 2022 into June 2022. I reviewed this. She was in and out of A-fib. She was put on Amiodarone and Eliquis. There is no mention of echocardiogram in the discharge summary. No description of atrial size. Plan: We will resume the amiodarone and Eliquis doses, stop Lovenox, stop aspirin, stop metoprolol 8) S/P Thoracic aortic aneurysm surgery We received her discharge summary from [facility] where she was hospitalized May 2022 into June 2022. I reviewed this. She had ascending aortic aneurysm repair and AVR surgery w/ complication of sternal bleeding had to be taken to the OR. She had paroxysmal A-fib that needed management. She had a sternal wound infection that was handled. She was discharged for rehab at [facility] where she only remained for about 2 days and signed herself out AMA. She thinks she caught Covid there, because there was an outbreak of Covid at that facility then. On postoperative day 13 she was identified as having a small segmental pulmonary emboli. Moderate right pleural effusion.She did not require thoracentesis. Fentanyl patch 75 mcg was located in the patient's left upper chest. It was placed on her chest prior to admission here on Sunday. Pain is under control. Pharmacy verifies that it is on her home med list Plan: Awaiting an Echocardiogram to establish LVEF after this thoracic surgery 9) Hypokalemia K has been low, likely due to poor po intake. She was supplemented yesterday. No labs ordered for today. We will check later this afternoon. 11) Anxiety and depression In the discharge summary which I reviewed, she refused to eat and was felt to have malnutrition due to an eating disorder, antidepressants may have helped this somewhat. When she was admitted to [place] she was taking 10 mg of Valium at at bedtime for "seizures". However Valium was stopped at discharge. Also discontinued was fluoxetine and metoprolol. Plan: Will continue medications as per [facility] summary- Mirtazapine 15 mg disintegrating tablet at night, sertraline 50 mg at night. 12) Fibromyalgia Plan: Will continue home medication Percocet 13) Hypothyroidism Plan: Will continue Levothyroxine. Her dose was apparently increased when she was recently an inpatient We will check TSH to assure her new dose is correct 14) Severe protein calorie Malnutrition Marinol was started July 10 to see if that improved her appetite. As of today not much improvement. We will not be changing dosing right now. When she was at [place], they also had her on Marinol while she was there. There was some thoughts that she was overly concerned about her weight and that maybe that is why she was refusing to eat. 15) HTN She has been on Amlodipine and the Amiodarone. Plan: Here her blood pressure is soft therefore Amlodipine is on hold 16) Physical deconditioning 17) Ventricular bigeminy Resolved. Troponin was done July 08. It was 20.8 and 17.5. Even though these are read as "high", they are not considered clinically significant.Potassium and magnesium have been replaced magnesium was 2.0 yesterday, and potassium was 3.1. Potassium has been replaced. No orders for labs written for today. Plan: BMP 18) History of seizure disorder. Her valium was discontinued at discharge from [facility]. lamotrigine 100 mg daily was continued. Here, Lamotrigine was resumed July 09.
[2022-07-11] MEDS ORDERED: CHERRY SYRUP 10 ML UDC PO ONE (14:17)
[2022-07-11 15:28] LABS: CALCIUM 8.5 mg/dL (8.5-10.3); CREATININE 0.6 mg/dL (0.4-1.0); POTASSIUM 4.5 mmol/L (3.5-5.0)
[2022-07-11] MEDS: VANCOMYCIN INJ 1 GM in SODIUM CHLORIDE 0.9% 250 ML IV SCH (19:03)
[2022-07-11] MEDS: guaiFENesin 600 MG TABLET PO SCH (21:26)
[2022-07-11] MEDS: ATORVASTATIN 40 MG TABLET PO SCH (21:26)
[2022-07-12] MEDS: SODIUM CHLORIDE 0.9% 1,000 ML IV SCH (01:13)
[2022-07-12] MEDS: SODIUM CHLORIDE FLUSH 0.9% 10 ML SYRINGE IVP SCH ×2 (01:14→08:54)
[2022-07-12] MEDS: ACETAMINOPHEN 325 MG TABLET PO PRN (03:52)
[2022-07-12] MEDS: CEFEPIME 2 GM in SODIUM CHLORIDE 0.9% MINIBAG 100 ML IV SCH (05:27)
[2022-07-12 05:42] LABS: CALCIUM 8.7 mg/dL (8.5-10.3); CREATININE 0.5 mg/dL (0.4-1.0); POTASSIUM 3.7 mmol/L (3.5-5.0)
[2022-07-12] MEDS: LEVOTHYROXINE 88 MCG TABLET PO SCH (06:33)
[2022-07-12] MEDS ORDERED: POTASSIUM CHLORIDE 20 MEQ TABLET PO SCH (08:00)
[2022-07-12] MEDS: CHOLECALCIFEROL 400 UNIT TABLET PO SCH (08:30)
[2022-07-12] MEDS: MULTIVITAMIN W/MINERALS TABLET PO SCH (08:30)
[2022-07-12] MEDS: guaiFENesin 600 MG TABLET PO SCH (08:30)
[2022-07-12] MEDS: SACCHAROMYCES BOULARDII 250 MG CAPSULE PO SCH (08:30)
[2022-07-12] MEDS: APIXABAN 5 MG TABLET PO SCH (08:30)
[2022-07-12] MEDS: AMIODARONE 200 MG TABLET PO SCH (08:31)
[2022-07-12] MEDS: SERTRALINE 50 MG TABLET PO SCH (08:31)
[2022-07-12] MEDS: MAGNESIUM OXIDE 400 MG TABLET PO SCH (08:31)
[2022-07-12] MEDS: DOCUSATE SODIUM 250 MG CAPSULE PO SCH (08:31)
[2022-07-12] MEDS: lamoTRIgine 100 MG TABLET PO SCH (08:31)
[2022-07-12] MEDS: PANTOPRAZOLE 40 MG TABLET PO SCH (08:31)
[2022-07-12] MEDS ORDERED: DEXAMETHASONE 10 MG/ML VIAL PO SCH (09:00)
--- NOTE | 2022-07-12 11:34 | DISCHARGE SUMMARY ---
"Discharge Summary Admit Date: 07/07/22 Discharge Date: 07/12/22 Discharging Provider: Irene Dominique MD Primary Care Provider: Darrell Cottrell MD Code Status: Attempt Resuscitation Condition at Discharge: Fair Discharge Disposition: Home Health Service - DIAGNOSES Discharge Diagnoses with Status of Each Condition: 1. Acute respiratory failure with hypoxia 2. Healthcare associated pneumonia 3. COVID-19 4. Infection due to human metapneumovirus 5. Interstitial pulmonary fibrosis 6. Paroxysmal atrial fibrillation 7. Status post thoracic aortic aneurysm surgery April 2022 8. Hypokalemia 9. Anxiety and depression 10. Fibromyalgia 11. Hypothyroidism 12. Severe protein calorie malnutrition 13. Hypertension 14. Physical deconditioning 15. Ventricular bigeminy - HPI History of Present Illness: 72 yo F with Interstitial Pulmonary Fibrosis, HTN, HLD, DM type 2, Fibromyalgia GERD, Hypothyroidism, Anxiety, s/p hip replacment 03/2022, and s/p AAA Repair 04/2022 presented to the ER with c/o 10 day h/o cough, increased SOB and 2 day h/o productive sputum. Pt was dx'd with IPF at age 25, does not see a Disabilities Services Officer, is not on Home O2. Pt had a hip replacement done on 03/23/22. On 05/06/22, she was admitted to [facility] for an elective ascending aorta repair. She was then in the ICU x 23 days. Pt was transferred to SNF 8 days ago. She was last tested for COVID-19 7 days ago and was negative. One of the nurses at the long term facility came back from vacation and unfortunately was infected with COVID. She became the index case for many patients having COVID. The pateint did not like the care the she received at the SNF, so she checked herself out 4 days ago and went home. Her has been her caregiver at home, but it has been hard on him. Pt first noticed a cough while at the hospital. She has a baseline Shortness of breath; this increased. Then, 2 days ago, her cough became productive of white/yellow sputum. +weakness, +fatigue, +decreased PO appetite. Pt says that she has lost 20 lbs in 1 week. No F/C. No CP. No abdo pain/N/V/urinary symptoms. EMS reported T100F. In the ER, SpO2 80s, 95% on 4L NC O2, K 3.3, Glc 123, BNP 89, Hgb 10.7 (Hgb 12.3 in 03/2022). PCR was positive for human metapneumovirus, and COVID. Images not available; per ER Physician: CXR: moderate edema versus atypical pneumonia, bibasilar atelectasis versus pneumonia Pt was given Cefpime, Vancomycin, LVQ in the ER. - Past Medical History Cardiovascular: reports: Hypertension, High cholesterol Respiratory: reports: Shortness of breath Neuro: reports: Migraines Endocrine/Autoimmune: reports: Type 2 diabetes GI: reports: GERD LEVELER: reports: None : reports: None HEENT: reports: None Psych: reports: Depression Musculoskeletal: reports: Fibromyalgia, Chronic back pain Derm: reports: None MRSA Hx?: No - Past Surgical History General: reports: Cholecystectomy Ortho: reports: Carpal Tunnel surgery HEENT: reports: Cataracts, Tonsil/Adenoidectomy - CONSULTS | PROCEDURES Procedures: Chest x-ray with moderate edema versus atypical pneumonia. Bibasilar atelectasis versus pneumonia. Blood cultures negative after 2 days. Respiratory culture had 2+ normal respiratory luis miguel. - HOSPITAL COURSE Hospital Course: She is admitted to the hospital with acute respiratory failure with hypoxia. Hypoxia was felt to be secondary to combined COVID and human metapneumovirus infection. We were also worried about a secondary healthcare associated pneumonia since she been at [facility] for a very long time, followed by a very short stent at a long term facility. She was placed on empiric antibiotic therapy. Initial oxygen requirements were 8 L, and within a few hours were down to 5 L. Over the course of her stay she has gone down to 2 L nasal cannula on the day of discharge. However she is still going to require oxygen at home. The patient was finally able to come off oxygen at rest. But she was still 91% on room air. So I had for respiratory therapy to do a desat test. At rest the patient had room air sats of 90%. On room air with exertion her O2 sats were 81%. On 2 L/min nasal cannula with exertion, her oxygen saturations were 89%. On 3 L/min nasal cannula with exertion her oxygen saturations were 92%. I am ordering home oxygen, room air at rest, and 3 L/min with exertion to treat her COVID-19 pneumonia, interstitial lung disease, pulmonary fibrosis that resulted in hypoxemia with exertion. Empiric antibiotics with cefepime vancomycin and Levaquin in the emergency room. Levaquin was discontinued when we admitted her into the hospital and kept her on cefepime and vancomycin. Treatment for her COVID-19 and metapneumovirus is mainly supportive. She did qualify for remdesivir and received IV remdesivir as well as IV Decadron. Decadron was transitioned to p.o. Decadron at discharge. She has a baseline diagnosis of interstitial pulmonary fibrosis. That was taken into consideration when we gave her nebulizers and oxygen. While at [facility] for her aneurysm repair, she developed paroxysmal A-fib. We noted that she was in and out of A-fib when we reviewed her records. At discharge she was put on amiodarone and Eliquis, and her metoprolol was discontinued. Metoprolol was still on her admission list. And asked that she was on it a short time here. But that will be discontinued again. Anxiety with depression, fibromyalgia and hypothyroidism were all treated with her usual baseline medications. Those were continued from her discharge summary from [facility]. Patient continued to have volume on her discharge list which was volume 10 mg at night. We verified with the discharge summary as well as with the pharmacist that Valium is no longer on the patient's list. However she is on a fentanyl patch. Hypokalemia was treated with supplementation. We noted that the patient continues to have severe protein calorie malnutrition. She str uggled with this at [facility], and at one point the notes document that there may be concern on the patient's thought process about food intake. The patient did not like the idea of gaining weight. Physical and occupational therapy saw the patient because of physical deconditioning. This unfortunate patient had a hip surgery in March, and open thoracic aneurysm repair in April, and a prolonged hospital stay with multiple complications. However, while she did acknowledge how weak she was, she was adamant she was not going to back to the prison. She felt that they were neglectful, and delivered terrible care and she did not even get the therapy she needed. So she was adamant she was not going back to prison. And as such I am discharging her with home health PT, OT, and RN. During her stay ventricular bigeminy was evaluated with this troponin level and supplementation of potassium and magnesium. She had no further episodes of ventricular bigeminy. At discharge temperature is 36.4. Heart rate 72. Blood pressure 148/67. Respirations 18. She is 90% on room air. She is 4 foot 10 inches tall, weighs 42.63 kg. BMI is 19.6. She is ecstatic at the idea of leaving the hospital. She has a fentanyl patch on board that was placed July 10 and will need to be removed July 13. Lungs have coarse upper airway sounds, as well as occasional crackles in the lower bases. Sternum is clean, closed. No redness, heat or drainage. But when she has a good deep cough, Rhonchi and crackles all disappear. She has a regular rate and rhythm. During her stay, most of her rhythm strips were sinus. She does not have tachypnea or increased respiratory effort. Abdomen is soft, nontender, and bowel movement was today. Extremities have cold hands and feet, but no edema. She ambulates in her room with standby assist. Her main manifestation of deconditioning is marked decreased endurance. Just getting up out of bed and sitting in a chair or going to the bathroom wipes her out. Greater than 30 minutes was spent coordinating discharge. This document was made in part using voice recognition software. While efforts are made to proofread this document, sound alike and grammatical errors may occur. - ALLERGIES Allergies/Adverse Reactions: Allergies Allergy/AdvReac Type Severity Reaction Status Date / Time adhesive tape Allergy Unknown Verified 07/08/22 13:55 Penicillins Allergy unknown Verified 04/07/22 18:57 streptomycin [Streptomycin] Allergy unknown Verified 04/07/22 18:57 Sulfa (Sulfonamide Allergy Rash Verified 04/07/22 18:57 Antibiotics) - MEDICATIONS Home Medications: Ambulatory Orders Medication Instructions Recorded Confirmed Amiodarone [Pacerone] 200 mg PO DAILY 07/08/22 07/08/22 Apixaban [Eliquis] 5 mg PO BID 07/08/22 07/08/22 Aspirin [Garvin Aspirin] 81 mg PO 1300 07/08/22 07/08/22 Atorvastatin Calcium 40 mg PO QPM 07/08/22 07/08/22 Levothyroxine [Synthroid] 100 mcg PO QDAC 07/08/22 07/08/22 Mirtazapine 15 mg PO QPM 07/08/22 07/08/22 Multivitamin with Minerals 1 tab PO DAILY 07/08/22 07/08/22 [Multivitamins with Minerals] Oxycodone HCl/Acetaminophen 1 tab PO Q6H PRN 07/08/22 07/08/22 [Oxycodone-Acetaminophen 5-325] Pantoprazole [Protonix] 40 mg PO 0800 07/08/22 07/08/22 Senna [Senokot] 8.6 mg PO BID PRN 07/08/22 07/08/22 Sertraline [Zoloft] 50 mg PO DAILY 07/08/22 07/08/22 amLODIPine [Norvasc] 5 mg PO BID 07/08/22 07/08/22 fentaNYL [Fentanyl 75mcg patch] 1 patch TD Q72H 07/08/22 07/08/22 lamoTRIgine [LaMICtal] 100 mg PO DAILY 07/08/22 07/08/22 Acetaminophen [Tylenol] 650 mg PO Q4HR PRN tab 07/12/22 Cholecalciferol [Vitamin D3] 2,000 unit PO DAILY tab 07/12/22 Magnesium Oxide [Mag Ox] 400 mg PO DAILYWM tab 07/12/22 Potassium Chloride [K-Dur] 20 meq PO DAILYWM #30 tab 07/12/22 dexAMETHasone [Decadron] 6 mg PO 0800 #6 tablet 07/12/22 guaiFENesin [Mucinex] 600 mg PO BID tab 07/12/22 - LABS Result Diagrams: 07/10/22 05:25 07/12/22 05:12"
--- NOTE | 2022-07-12 11:39 | Discharge Plan ---
Discharge Plan Problem Reviewed?: Yes Disposition: Home Health Service Condition: Fair Prescriptions: dexAMETHasone [Decadron] 6 mg PO 0800 #6 tablet Potassium Chloride [K-Dur] 20 meq PO DAILYWM #30 tab Diet: Low Sodium Activity Restrictions: Activity as Tolerated Shower Restrictions: No Driving Restrictions: Yes (no driving for 2 weeks, too weak and oxygen) Assistance Devices: [facility] Concerns: You have had a very rough few months. You had a hip replacement done in March of last year, and then you had an aortic valve repair in April of this year. This left you with a wound infection in the sternum, and of very long stay in the hospital at [facility]. While there you developed intermittent arrhythmia called atrial fibrillation. You finally left the hospital, but went to a [facility] for [facility]hab. While there you COVID. You checked yourself out AGAINST MEDICAL ADVICE in the [facility] and became ill a couple of days after you left. Coughing, shortness of breath, increasing fatigue continued to worsen. You finally could not breathing and came into the hospital ER here. We found you to have COVID infection, and human metapneumavirus infection. Both of these are very severe viral infections. We treated you with antibiotics just in case you had a secondary bacterial infecti on from the virus infections. We also supported you with oxygen, inhalers, steroids, and initially started treating you with remdesivir for COVID. Remdesivir is usually made to be taken within 1 day to 2 days of becoming sick. We stopped it because it had been several days since you had been sick with COVID. You are still very weak. We required quite a bit of help. But you do not want to return to the custodial facility for rehabilitation. You also still require oxygen when you try and get up and do things. Plan of Treatment: 1. You have completed 6 days of IV antibiotic therapy and do not need any more antibiotic therapy for home. 2. Concentrate on making sure you have really good pulmonary/lung hygiene. Take deep breaths with incentive spirometer several times an hour. Cough is much as you can to bring up phlegm. Take Mucinex [id number] at least once a day to help you clear with secretions. 3. You will be sent home with oxygen for when you are getting up and walking around. You require 3 L to get up to go to the bathroom, or to get up and get dressed. You do not require oxygen when you are sitting still and watching TV or reading a book. 4. Please see your primary care provider in follow-up. Dr. Cottrell should listen to your lungs, see how much oxygen you need, and he will help you decide when to come off oxygen. 5. You are still really weak. Need a lot of help because of your fatigue and shortness of breath. I am ordering home health with physical therapy, Occupational Therapy, and a nurse. Care Goals: To recover from this overall episode of severe debility from hip surgery, heart surgery, and then viral pneumonia on top of at all. Assessment: Patient is alert, oriented, promises to follow through. Is delighted she can go home. No Smoking: If you smoke, Please STOP! Call for help. Follow-up with: Darrell Cottrell MD [Primary Care Provider] -
[2022-07-12 13:51] VITALS: BP 148/67
== END 2022-07-12 14:26 | disposition home health service (06) | DRG 177 ==
LOC: EDUNIT# → ED 15:49 → MS2 19:38
PROVIDERS: ADMIT Internal Medicine; ATTEND Specialist
PROC: XW033E5 Introduction of Remdesivir Anti-infective into Peripheral Vein, Percutaneous Approach, New Technology Group 5 (ICD-10-PCS; principal; 2022-07-08)
PROC: 3E0333Z Introduction of Anti-inflammatory into Peripheral Vein, Percutaneous Approach (ICD-10-PCS; 2022-07-08)
DX: U07.1 COVID-19 (principal); E43 Unspecified severe protein-calorie malnutrition; Y95 Nosocomial condition; J12.3 Human metapneumovirus pneumonia; J12.82 Pneumonia due to coronavirus disease 2019; J96.01 Acute respiratory failure with hypoxia; E11.65 Type 2 diabetes mellitus with hyperglycemia; J84.9 Interstitial pulmonary disease, unspecified; K21.9 Gastro-esophageal reflux disease without esophagitis; Z68.1 Body mass index [BMI] 19.9 or less, adult; J84.10 Pulmonary fibrosis, unspecified; I48.0 Paroxysmal atrial fibrillation; Z98.890 Other specified postprocedural states; E87.6 Hypokalemia; M79.7 Fibromyalgia; E03.9 Hypothyroidism, unspecified; I10 Essential (primary) hypertension; R53.1 Weakness; R00.8 Other abnormalities of heart beat; E11.9 Type 2 diabetes mellitus without complications; E78.00 Pure hypercholesterolemia, unspecified; F41.8 Other specified anxiety disorders; D64.9 Anemia, unspecified; G40.909 Epilepsy, unspecified, not intractable, without status epilepticus
CPT/HCPCS: 36415; 71045; 80048; 80053; 80202; 82803; 83036; 83605; 83690; 83735; 83880; 84132; 84145; 84443; 84484; 85025; 87040; 87070; 87205; 87633; 93005; 94640; 94761; 96365; 96366; 96368; 97163; 97166; 97530; 97535; 99285; A9270; J1650; J3370; J7040; Q0167

== ENCOUNTER 2022-08-16 18:22 | Emergency (ER) | payer MEDICARE, BC ==
[2022-08-16 18:33] VITALS: BP 99/54
--- NOTE | 2022-08-16 19:06 | ED Physician Documentation ---
History of Present Illness - Stated complaint Stated Complaint: EYE BROW LAC - Chief complaint Chief Complaint: Laceration - Additonal information Additional information: 72-year-old female is brought to the emergency department for evaluation of a left eyebrow laceration. She is anticoagulated on Eliquis and simply walked into the rearview mirror of her motor home. There was no loss of consciousness though she does have a large hematoma and laceration over her left eyebrow. Patient reports up-to-date tetanus. 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 : None HEENT: None Psych: Depression Musculoskeletal: Fibromyalgia, Chronic back pain Derm: None - Past Surgical History Past Surgical History: Yes General: Cholecystectomy Ortho: Carpal Tunnel surgery HEENT: Cataracts, Tonsil/Adenoidectomy - Present Medications Home Medications: Ambulatory Orders Medication Instructions Recorded Confirmed Amiodarone [Pacerone] 200 mg PO DAILY 07/08/22 07/08/22 Apixaban [Eliquis] 5 mg PO BID 07/08/22 07/08/22 Aspirin [Miston Aspirin] 81 mg PO 1300 07/08/22 07/08/22 Atorvastatin Calcium 40 mg PO QPM 07/08/22 07/08/22 Levothyroxine [Synthroid] 100 mcg PO QDAC 07/08/22 07/08/22 Mirtazapine 15 mg PO QPM 07/08/22 07/08/22 Multivitamin with Minerals 1 tab PO DAILY 07/08/22 07/08/22 [Multivitamins with Minerals] Oxycodone HCl/Acetaminophen 1 tab PO Q6H PRN 07/08/22 07/08/22 [Oxycodone-Acetaminophen 5-325] Pantoprazole [Protonix] 40 mg PO 0800 07/08/22 07/08/22 Senna [Senokot] 8.6 mg PO BID PRN 07/08/22 07/08/22 Sertraline [Zoloft] 50 mg PO DAILY 07/08/22 07/08/22 amLODIPine [Norvasc] 5 mg PO BID 07/08/22 07/08/22 fentaNYL [Fentanyl 75mcg patch] 1 patch TD Q72H 07/08/22 07/08/22 lamoTRIgine [LaMICtal] 100 mg PO DAILY 07/08/22 07/08/22 Acetaminophen [Tylenol] 650 mg PO Q4HR PRN tab 07/12/22 Cholecalciferol [Vitamin D3] 2,000 unit PO DAILY tab 07/12/22 Magnesium Oxide [Mag Ox] 400 mg PO DAILYWM tab 07/12/22 Potassium Chloride [K-Dur] 20 meq PO DAILYWM #30 tab 07/12/22 dexAMETHasone [Decadron] 6 mg PO 0800 #6 tablet 07/12/22 guaiFENesin [Mucinex] 600 mg PO BID tab 07/12/22 - Allergies Allergies/Adverse Reactions: Allergies Allergy/AdvReac Type Severity Reaction Status Date / Time adhesive tape Allergy Unknown Verified 08/16/22 18:33 Penicillins Allergy unknown Verified 08/16/22 18:33 streptomycin [Streptomycin] Allergy unknown Verified 08/16/22 18:33 Sulfa (Sulfonamide Allergy Rash Verified 08/16/22 18:33 Antibiotics) - Social History Does the pt smoke?: No Smoking Status: Former smoker Does the pt drink ETOH?: No Does the pt have substance abuse?: Yes - Immunizations Immunizations are current?: Yes - POLST Patient has POLST: No PD ED PE NORMAL - General General: Alert and oriented X 3, No acute distress, Well developed/nourished - HEENT HEENT: Moist mucous membranes. No: Atraumatic (Hematoma over the left eyebrow with a 2 cm laceration running horizontally. 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 Eye Opening: Spontaneous Motor: Obeys Commands Verbal: Oriented GCS Score: 15 Results - Vitals Vitals: Vital Signs - 24 hr 08/16/22 08/16/22 08/16/22 18:28 18:36 18:57 Temperature 36.6 C Heart Rate 71 Respiratory 16 17 16 Rate Blood Pressure 99/54 L O2 Saturation 97 08/16/22 08/16/22 19:09 19:16 Temperature Heart Rate Respiratory 16 17 Rate Blood Pressure O2 Saturation Oxygen O2 Source Room air - Rads (name of study) Ct head Relevant Findings:: Final report received (No acute intracranial abnormality) Procedures - Laceration (location) left eye brow Length in cm: 1.5 Wound type: Into subcut fat Neurovascular status: Sensory intact Skin layer closure: Dermabond, Steri strips Other: Patient tolerated well, Tetanus UTD PD Medical Decision Making - ED course Complexity details: reviewed results, d/w patient ED course: 72-year-old female who is anticoagulant on Eliquis secondary to recent heart surgery presents to the ER with a left eyebrow laceration and hematoma. She was recently diagnosed with wet macular degeneration and has a blind spot in her left eye. She was walking around the corner of her RV and did not see the mirror when she ran into it. Reports tetanus is up-to-date. She presents nonfocal. Normal neurological exam. CT of the head showed no fin dings of intracranial hemorrhage. Subsequently the eyebrow laceration was closed with combination of Steri-Strips and glue. We discussed the usual routine wound care of Dermabond as well as the emergent return precautions for concerns of closed head injury on an anticoagulant Departure - Departure Disposition: 01 Home, Self Care Clinical Impression: Anticoagulated Laceration of left eyebrow Qualifiers: Encounter type: initial encounter Qualified Code(s): S01.112A - Laceration without foreign body of left eyelid and periocular area, initial encounter Traumatic hematoma of left eyebrow Qualifiers: Encounter type: initial encounter Qualified Code(s): S00.12XA - Contusion of left eyelid and periocular area, initial encounter Condition: Stable Record reviewed to determine appropriate education?: Yes Instructions: ED Laceration Facial Skin Glue Comments: You sustained a laceration and hematoma of your left eyebrow. We did do a CT of your head that did not show any signs of bruising or bleeding within the brain. To close the laceration we used a combination of Steri-Strips and glue. There is no special care that is required for this. The glue and Steri-Strips will simply wear away over the next 5 to 7 days. Do not apply antibiotic ointment to it as will cause it to wear away quicker. The hematoma underlying the laceration will take about 2 weeks to fully resolve. Return to the ER for any sudden severe headache, uncontrolled vomiting, slurred speech or facial droop.
--- NOTE | 2022-08-16 19:18 | CT Report ---
PROCEDURE: HEAD WO INDICATIONS: on eliquis; lac to eye brow; walked into mirror TECHNIQUE: Noncontrast 4.5 mm thick angled axial sections acquired from the foramen magnum to the vertex. For r adiation dose reduction, the following was used: automated exposure control, adjustment of mA and/or kV according to patient size. COMPARISON: 03/15/2019 CT FINDINGS: Image quality: Excellent. CSF spaces: Basal cisterns are patent. No extra-axial fluid collections. Ventricles are normal in size and shape. Brain: No midline shift. No intracranial masses or hemorrhage. Escalera-white matter interface is norm al. Skull and face: Calvarium and visualized facial bones are intact, without suspicious lesions. Sinuses: Visualized sinuses and mastoids are clear. IMPRESSION: No acute intracranial abnormality. Reviewed by: Marty Rowe MD on 08/16/2022 7:17 PM PDT Approved by: Marty Roew MD on 08/16/2022 7:17 PM PDT Station ID: [id number]
--- OUTSIDE RECORDS SUMMARY | 2022-08-16 19:40 | EXTERNAL MEDICAL SUMMARY RPT | Continuity of Care Document ---
:1950 Author Organization [facility] Address [address] [place] [address] Phone Care Team Providers Name Role Phone Unavailable Unavailable Unavailable Darrell Cottrell Unavailable Unavailable Allergies and Intolerances date description facility type (no date) adhesive tape [facility] (unknown) (no date) sulfamethoxazole [facility] (unknown) (no date) trimethoprim [facility] (unknown) Encounters No information. Functional Status No information. Immunizations No information. Medications No information. Problems date description facility 2022-05-20 00:00 Hip pain [facility] 2022-05-20 00:00 History of arthroplasty of left hip [facility] 2022-06-12 16:52 Fracture of unspecified part of neck of left [facility] femur, initial 2022-06-12 16:52 Other specified postprocedural states [facility] Procedures date description facility 2022-05-20 00:00 Unilateral x-ray of hip, two views, wit h x-ray [facility] of pelvis Results/Labs test date author facility value unit interpret ation Result panel 1 (unknown) (no (unknown) (unknown) (no value) (units (unk nown) date) unknown) (unknown) (no (unknown) (unknown) [id number] (units (unkno wn) date) unknown) (unknown) (no (unknown) (unknown) 05/20/22 (units (unkno wn) date) unknown) (unknown) (no (unknown) (unknown) [address] [place] [address] (units (unknown) date) unknown) (unknown) (no (unknown) (unknown) 16:10. (units (unkno wn) date) unknown) (unknown) (no (unknown) (unknown) Accession Number: (units (unknown) date) [id number] unknown) (unknown) (no (unknown) (unknown) Age/Sex: 72 / F (units (unknown) date) Date of Service: unknown) (unknown) (no (unknown) (unknown) [place] (units ( unknown) date) [id number] unknown) (unknown) (no (unknown) (unknown) Approved by: [place] (units (unknown) date) Dedrick Goel on unknown) 05/20/2022 at 13:18 (unknown) (no (unknown) (unknown) Bones: Patient is (units (unknown) date) status post left unknown) hip arthroplasty, with hardware components (unknown) (no (unknown) (unknown) COMPARISON: [facility] (units (unknown) date) [facility], CR, XR unknown) HIP W PEL IF DONE LT 2V, 03/23/2022, (unknown) (no (unknown) (unknown) : 1950 (units (unknown) date) Acct:[id number] unknown) (unknown) (no (unknown) (unknown) FINDINGS: (units (unkn own) date) unknown) (unknown) (no (unknown) (unknown) IMPRESSION: Left (units (unknown) date) hip unknown) hemiarthroplasty good position. Moderate right hip (unknown) (no (unknown) (unknown) INDICATIONS: Hip (units (unknown) date) pain unknown) (unknown) (no (unknown) (unknown) [facility] (units (unknown) date) unknown) (unknown) (no (unknown) (unknown) Loc: ED (units (unkno wn) date) unknown) (unknown) (no (unknown) (unknown) No fracture (units (un known) date) unknown) (unknown) (no (unknown) (unknown) Ordering Provider: (units (unknown) date) Opal Lee unknown) [facility] (unknown) (no (unknown) (unknown) PROCEDURE: XR HIP (units (unknown) date) W PEL IF DONE LT 2V unknown) (unknown) (no (unknown) (unknown) Patient: (units (unkno wn) date) Duncan Rock Ankur unknown) MR#: [id number] (unknown) (no (unknown) (unknown) [...] (units (unkno wn) date) unknown) Result panel 2 (unknown) (no (unknown) (unknown) (no value) (units (unk nown) date) unknown) (unknown) (no (unknown) (unknown) (Lamictal) (units (unk nown) date) unknown) (unknown) (no (unknown) (unknown) *If you do not (units (unknown) date) have a primary care unknown) provider please contact [phone] to (unknown) (no (unknown) (unknown) *Please continue [...] wn) date) unknown) (unknown) (no (unknown) (unknown) [id number] (units (unkno wn) date) unknown) (unknown) (no [...] (unknown) (unknown) : 1950 (units (unknown) date) Acct:[id number] unknown) (unknown) (no (unknown) (unknown) Date of Service: (units (unknown) date) 05/20/22 unknown) (unknown) (no (unknown) (unknown) Departure (units (unkn own) date) unknown) (unknown) (no (unknown) (unknown) Discharge Plan (units (unknown) date) unknown) (unknown) (no (unknown) (unknown) ED Orders (units (unkn own) date) unknown) (unknown) (no (unknown) (unknown) ER Physician: (units ( unknown) date) Opal Lee unknown) [facility] (unknown) (no (unknown) (unknown) Emergency Report (units [...] Hip Pain unknown) (unknown) (no (unknown) (unknown) [facility] (units (unknown) date) [address] unknown) [place] [address] (unknown) (no (unknown) (unknown) Darrell Cottrell, (units (unknown) date) [Primary Care unknown) Provider] (unknown) (no (unknown) (unknown) MSK: moves all (units (unknown) date) extremities, unknown) neurovascularly intact, no weakness, normal tone, (unknown) (no (unknown) (unknown) Medical History (units (unknown) date) (Reviewed 05/20/22 unknown) @ 13:31 by Opal Lee [facility]) (unknown) (no (unknown) (unknown) Medication (units (unk [...] (unknown) date) with one of the unknown) [facility] primary care providers. (unknown) (no (unknown) [...] incident unknown) and worse injury. Result panel 3 (unknown) (no (unknown) (unknown) (no value) (units (unk nown) date) unknown) (unknown) (no (unknown) (unknown) (Lamictal) (units (unk nown) date) unknown) (unknown) (no (unknown) (unknown) *If you do not (units (unknown) date) have a primary care unknown) provider please contact [phone] to (unknown) (no (unknown) (unknown) *Please continue [...] wn) date) unknown) (unknown) (no (unknown) (unknown) [id number] (units (unkno wn) date) unknown) (unknown) (no [...] (unknown) (unknown) : 1950 (units (unknown) date) Acct:[id number] unknown) (unknown) (no (unknown) (unknown) Date of Service: (units (unknown) date) 05/20/22 unknown) (unknown) (no (unknown) (unknown) Departure (units (unkn own) date) unknown) (unknown) (no (unknown) (unknown) Discharge Plan (units (unknown) date) unknown) (unknown) (no (unknown) (unknown) ED Orders (units (unkn own) date) unknown) (unknown) (no (unknown) (unknown) ER Physician: (units ( unknown) date) Opal Lee unknown) [facility] (unknown) (no (unknown) (unknown) Emergency Report (units (unknown) date) unknown) (unknown) (no (unknown) (unknown) Exam Narrative: (units (unknown) date) unknown) (unknown) (no (unknown) (unknown) Exam (units (unkno wn) date) unknown) (unknown) (no (unknown) (unknown) Family History (units (unknown) date) (Reviewed 05/20/22 unknown) @ 13:31 by Opal Lee [facility]) (unknown) (no (unknown) (unknown) Father No problems [...] Hip Pain unknown) (unknown) (no (unknown) (unknown) [facility] (units (unknown) date) [address] unknown) [place] [address] (unknown) (no (unknown) (unknown) Darrell Cottrell, (units (unknown) date) [Primary Care unknown) Provider] (unknown) (no (unknown) (unknown) MSK: moves all (units (unknown) date) extremities, unknown) neurovascularly intact, no weakness, normal tone, (unknown) (no (unknown) (unknown) Medical History (units (unknown) date) (Reviewed 05/20/22 unknown) @ 13:31 by Opal Lee [facility]) (unknown) (no (unknown) (unknown) Medication (units (unk [...] (unknown) date) with one of the unknown) [facility] primary care providers. (unknown) (no (unknown) [...] incident unknown) and worse injury. Result panel 4 (unknown) (no (unknown) (unknown) (no value) (units (unk nown) date) unknown) (unknown) (no (unknown) (unknown) (Lamictal) (units (unk nown) date) unknown) (unknown) (no (unknown) (unknown) *If you do not (units (unknown) date) have a primary care unknown) provider please contact [phone] to (unknown) (no (unknown) (unknown) *Please continue [...] wn) date) unknown) (unknown) (no (unknown) (unknown) [id number] (units (unkno wn) date) unknown) (unknown) (no [...] hardware components (unknown) (no (unknown) (unknown) COMPARISON:? [facility] (units (unknown) date) Hospital, CR, XR unknown) [...] (unknown) (unknown) : 1950 (units (unknown) date) Acct:[id number] unknown) (unknown) (no (unknown) (unknown) Date of [...] Hip Pain unknown) (unknown) (no (unknown) (unknown) [facility] (units (unknown) date) [address] [place] [address] Street unknown) [place] [address] (unknown) (no (unknown) (unknown) Darrell Cottrell, (units [...] 05/20/22 unknown) @ 13:31 by Opal Lee [facility]) (unknown) (no (unknown) (unknown) Medical decision (units [...] 05/20/22 unknown) @ 13:31 by Opal Lee [facility]) (unknown) (no (unknown) (unknown) Social (units (unkno [...] 05/20/22 unknown) @ 13:31 by Opal Lee [facility]) (unknown) (no (unknown) (unknown) TECHNIQUE:? AP (units [...] (unknown) date) with one of the unknown) [facility] primary care providers. (unknown) (no (unknown) [...] incident unknown) and worse injury. Result panel 5 (unknown) (no (unknown) (unknown) (no value) (units (unk nown) date) unknown) (unknown) (no (unknown) (unknown) <Electronically (units (unknown) date) signed by Opal benitez) Merissa [facility] Crew> (unknown) (no (unknown) (unknown) (Lamictal) (units (unk nown) date) unknown) (unknown) (no (unknown) (unknown) *If you do not (units (unknown) date) have a primary care unknown) provider please contact [phone] to (unknown) (no (unknown) (unknown) *Please continue [...] wn) date) unknown) (unknown) (no (unknown) (unknown) [id number] (units (unkno wn) date) unknown) (unknown) (no [...] hardware components (unknown) (no (unknown) (unknown) COMPARISON:? [facility] (units (unknown) date) [facility], , XR unknown) HIP W PEL IF DONE [...] (unknown) (unknown) : 1950 (units (unknown) date) Acct:[id number] unknown) (unknown) (no (unknown) (unknown) Date of [...] (units ( unknown) date) Opal Lee unknown) [facility] (unknown) (no (unknown) (unknown) Emergency Report (units [...] Hip Pain unknown) (unknown) (no (unknown) (unknown) [facility] (units (unknown) date) [address] [place] [address] unknown) [place] [address] (unknown) (no (unknown) (unknown) Darrell Cottrell, (units [...] 05/20/22 unknown) @ 13:31 by Opal Lee [facility]) (unknown) (no (unknown) (unknown) Medical decision (units [...] (unknown) date) with one of the unknown) [facility] primary care providers. (unknown) (no (unknown) [...] (units (unknown) date) ] Allergy unknown) Verified 05/20/22 12:33 (unknown) (no [...] incident unknown) and worse injury. Result panel 6 (unknown) (no (unknown) (unknown) (no value) (units (unk nown) date) unknown) (unknown) (no (unknown) (unknown) <Electronically (units (unknown) date) signed by Opal Lee> (unknown) (no (unknown) (unknown) <Electronically (units (unknown) date) signed by Al Olsen D.O.> (unknown) (no (unknown) (unknown) <Opal Lee, (units (unknown) date) PUJA - Last Filed: unknown) 05/20/22 14:44> (unknown) (no (unknown) (unknown) <Al Olsen (units (unknown) date) DO - Last Filed: unknown) 05/20/22 14:48> (unknown) (no (unknown) (unknown) (Lamictal) (units (unk nown) date) unknown) (unknown) (no (unknown) (unknown) *If you do not (units (unknown) date) have a primary care unknown) provider please contact [phone] to (unknown) (no (unknown) (unknown) *Please continue [...] wn) date) unknown) (unknown) (no (unknown) (unknown) [id number] (units (unkno wn) date) unknown) (unknown) (no [...] (unknown) (unknown) : 1950 (units (unknown) date) Acct:[id number] unknown) (unknown) (no (unknown) (unknown) Date of [...] Hip Pain unknown) (unknown) (no (unknown) (unknown) [facility] (units (unknown) date) [address] unknown) [place] [address] (unknown) (no (unknown) (unknown) Darrell Cottrell, (units [...] 05/20/22 unknown) @ 13:31 by Opal Lee [facility]) (unknown) (no (unknown) (unknown) Medical decision (units [...] (Reviewed 05/20/22 unknown) @ 13:31 by PUJA Raimrez) (unknown) (no (unknown) (unknown) TECHNIQUE:? AP (units [...] (unknown) date) with one of the unknown) [facility] primary care providers. (unknown) (no (unknown) [...] worse injury. Social History date description facility 2022-05-20 00:00 Ex-smoker (finding) [facility] Vital Signs date measurement value units 2022-05-20 00:00 BP_diastolic 53 mmHg 2022-05-20 00:00 BP_systolic 109 mmHg 2022-05-20 00:00 heart_rate 60 /min 2022-05-20 00:00 o2_saturation 98 % 2022-05-20 00:00 respiration_rate 18 /min 2022-05-20 00:00 temperature_metric 36.67 C 2022-05-20 00:00 temperature_standard 98 F 2022-05-20 00:00 weight_metric 43.99 kg 2022-05-20 00:00 weight_standard 96.98 lb
== END 2022-08-16 19:41 | disposition home or self-care (01) ==
LOC: ED 18:22
DX: S01.112A Laceration without foreign body of left eyelid and periocular area, initial encounter (principal); W22.8XXA Striking against or struck by other objects, initial encounter; I10 Essential (primary) hypertension; E11.9 Type 2 diabetes mellitus without complications; Z79.01 Long term (current) use of anticoagulants; Z87.891 Personal history of nicotine dependence
CPT/HCPCS: 12011; 99283; 99284

== ENCOUNTER 2022-08-19 12:44 | Outpatient (CLI) | payer MEDICARE, BC | END 2022-08-19 23:59 | disposition short-term general hospital (02) | LOC: EMS 12:44 | DX: S59.901A Unspecified injury of right elbow, initial encounter (principal); M25.511 Pain in right shoulder; S00.83XA Contusion of other part of head, initial encounter; W01.0XXA Fall on same level from slipping, tripping and stumbling without subsequent striking against object, initial encounter; Z79.01 Long term (current) use of anticoagulants | CPT/HCPCS: A0425; A0427 ==